=== PATIENT | male | born 1950 | race Caucasian/White ===

== ENCOUNTER 2018-01-02 16:09 | Observation (INO) | payer MEDICARE, OTHER, SELFPAY ==
[2018-01-02 16:10] VITALS: BP 142/65; PULSE 95; RESP 18; TEMP 35.7; O2SAT 96; BMI 36.6
--- NOTE | 2018-01-02 16:25 | CT_ITS ---
STUDY: CT ABDOMEN AND PELVIS WITHOUT CONTRAST REASON FOR EXAM: Male, 67 years old. RT SIDE BACK PAIN RADIATION DOSAGE (If Supplied By Facility): CTDIvol = ( 20.63 ) mGy, DLP = ( 1077.31 ) mGycm TECHNIQUE: Transaxial images were obtained from the dome of the diaphragm to the symphysis pubis without oral contrast, and without intravenous contrast. Sagittal and coronal images were reconstructed. COMPARISON: 3.26.17 FINDINGS: The visualized lung bases are unremarkable. The visualized portions of the heart are within normal limits. Normal liver. Normal gallbladder and extrahepatic biliary system. Normal spleen. Normal pancreas. Normal bilateral adrenal glands. Normal right kidney. There is a 28 mm hypodensity of the Left kidney. This is 1-10 Hounsfield units. This is stable. Normal visualized stomach. Normal small intestine. Normal colon. The appendix is visualized and appears normal. There are calcifications of the abdominal aorta and vascular structures. This is consistent for atherosclerotic disease. There is no abdominal aortic aneurysm. Normal inferior vena cava. Subcentimeter mesenteric lymph nodes. Normal urinary bladder. Normal visualized prostate gland. There is a large umbilical hernia containing fat. Fat appears to be slightly inflamed. There are degenerative changes of the osseous structures. There is scoliosis of the lumbar spine. Loss of intervertebral disc height at L5-S1. Vacuum disc phenomenon at L5-S1. CT/Abdomen/Pelvis without Cont IMPRESSION: Stable left renal cyst. There is a large umbilical hernia containing fat. Fat appears to be slightly inflamed. Other findings as above. Electronically Signed: Dinh Palacios MD at 19:38 EDT , Service support ,
[2018-01-02] MEDS: HYDROmorphone 1 MG/ML Syringe IV ×2 (16:48→20:44)
[2018-01-02] MEDS: 0.9% Normal Saline 1,000 ML 150 ML IV (16:48)
[2018-01-02] MEDS: Ondansetron 4 MG/2 ML Vial IV (16:48)
[2018-01-02 16:54] LABS: Bacteria 0 SEEN /hpf (None Seen); Mucous, Urine 0 SEEN /hpf (<or=2+); Red Blood Cells-Urine 0 SEEN /hpf (0-5); Squamous Epithelial Cells - UA 0 SEEN /hpf (0-5); White Blood Cells 0 SEEN /hpf (0-5)
[2018-01-02 17:01] LABS: Absolute Lymphocyte Count 1.46 X10^3/ul (0.83-4.51); Absolute Neutrophil Count 4.6 X10^3/uL (2.0-7.7); Basophil# 0.02 X10^3/uL; Basophil% 0.3 % (0-1); Eosinophil# 0.24 X10^3/uL; Eosinophils% 3.4 % (0-5); Hematocrit 38.7 % (40-54); Hemoglobin 13.8 g/dl (13.0-16.5); Lymphocyte # 1.46 X10^3/ul (4.0); Lymphocyte % 20.8 % (19-41); Mean Corp Hgb Conc 35.7 g/gl (32-36); Mean Corpuscular Hgb 30.7 pg (27.0-32.0); Mean Platelet Vol. 9.8 fl (6.2-12.0); Monocyte# 0.71 X10^3/uL; Monocyte% 10.1 % (0-10); Neutrophil # 4.57 X10^3/uL (2.7-7.7); Neutrophil % 65.1 % (47-70); Platelet Count 203 K/mm3 (150-450); RBC Distribution Width CV 12.6 % (11.6-14.6); RBC Distribution Width SD 38.4 fl (35.1-43.9)
[2018-01-02 17:10] LABS: Anion Gap 10 (5-15); BUN 21 mg/dL (7-18); Calcium,Total 8.9 mg/dL (8.5-10.1); Chloride 103 mmol/L (98-107); EST Glomerular Filtration Rate 53 mL/min (>60); Est Glom Filt Rate - Afr Amer 65 mL/min (>60); Estimated Creatinine Clearance 48.18 ml/min; Glucose 134 mg/dL (74-106); Sodium Level 137 mmol/L (136-145)
[2018-01-02 17:13] LABS: POSITIVE COUNT NO; POSITIVE DIFFERENTIAL NO; POSITIVE MORPHOLOGY NO
[2018-01-02 17:28] LABS: Color, Urine Yellow (Yellow); Glucose, Dipstick Normal (Normal); Ketone-Dipstick Negative (Negative); Leukocyte Esterase-Dipstick Negative /ul (Negative); Nitrite-Dipstick Negative (Negative); Occult Blood-Urine Negative /ul (Negative); Protein-Dipstick 15 mg/dl (Negative); Specific Gravity, Urine 1.015 (1.002-1.030); Urine Bilirubin Dipstick Negative (Negative); Urine Clarity Clear (Clear); Urine Urobilinogen Normal (Normal)
[2018-01-02 20:16] VITALS: BP 142/73; PULSE 82; RESP 15; O2SAT 96
--- NOTE | 2018-01-02 20:16 | ED.DCSUM_ITS ---
- ER Visit Summary Date of Service: 01/02/18 Chief Complaint: [Back pain] History of Present Illness: The patient is a 67 M [presents the emergency department with pain in his back for 2-3 days. Patient states that he spread some mulch yesterday as well which may have exacerbated things as well. Patient describes his pain as severe and worse with sitting and standing. Patient describes the pain in his center low back as well as the right lower back. 2 days ago he had numbness in his legs that has now resolved. He denies any loss of bowel or bladder function. He denies any direct trauma to his back. Patient denies any fever. He denies urinary symptoms.] Physical Examination: [HEENT-PERRLA, EOMI. Cranial nerves II through XII grossly intact. TMs clear. Mucous membranes moist. No adenopathy. Cardiovascular-regular rate and rhythm without murmur or ectopy Lungs-clear to auscultation, chest wall stable without crepitus or subcu emphysema Abdomen-normoactive bowel sounds, soft, nontender, no rebound or rigidity, no peritoneal signs. Back exam-patient has tenderness over the lumbar spine diffusely as well as the right lumbar paraspinal musculature. Patient has negative straight leg raises. Deep tendon reflexes are plus 2 out of 4 bilaterally at the patella and Achilles. Patient has normal L5 extension. Extremities-intact ?4, normal range of motion, normal pulses, atraumatic] Test Results: [CBC with differential showed a white blood cell count 7.0, heme globin 13.8, hematocrit 38.7, platelets 203. Chemistries unremarkable. BUN was 21 creatinine was 1.4. Urinalysis was normal. CT flank showed large umbilical hernia and loss of height at L5-S1 disc space.] Emergency Department Course and Treatment: [Patient was medicated with Dilaudid and Zofran and continues to complain the pain had to be remedicated with Dilaudid.] Treatment Plan: [Admit for further workup and management of his pain. Disposition: [Admit] Impression: [Intractable back pain] This note was generated with [employer] dictation software. It may contain incorrect words, spelling, and punctuation that were not noted in review of the chart prior to signing ED Disposition - Plan for ED Patient: Chief Complaint: Back Referrals: Mike Flores MD [Primary Care Provider] -
[2018-01-02 20:47] VITALS: BP 143/77; PULSE 84; RESP 16; O2SAT 95
--- NOTE | 2018-01-02 20:56 | PCM.HP.STD ---
Problem List (1) Intractable back pain Status: Acute (2) Benign prostatic hypertrophy Status: Chronic (3) Physical debility Status: Chronic (4) Pain Status: Acute (5) Obstructive sleep apnea syndrome Status: Chronic (6) Obesity Status: Chronic (7) HLD (hyperlipidemia) Status: Chronic (8) Type II diabetes mellitus Status: Chronic (9) Benign essential hypertension Status: Chronic History of Present Illness Date of Admission: 01/02/18 Chief Complaint: back pain The patient is a 67 year old male patient with a history of back pain status post discectomy at L5 level about 10 years ago presents to the ER with two days of worsening back pain. At onset two days ago he felt both legs going numb. He doesn't recall doing anything that might have caused this. The pain is in the lower back and on the right side of the lumbar spine. He describes it as a 10/10. The pain was relieved somewhat by dilaudid in the ER but completely returned in two hours. He does get some relief by positioning more weight sitting on his right side. CT scan is unremarkable. He denies nausea, vomiting, fevers or chills. He does have sleep apnea and requests CPAP to continue here. He will be admitted for pain control and an MRI in the AM. Past Medical History Past Medical History (Chronic Problems): Chronic Problems Benign prostatic hypertrophy (Chronic) Physical debility (Chronic) Obstructive sleep apnea syndrome (Chronic) Obesity (Chronic) HLD (hyperlipidemia) (Chronic) Type II diabetes mellitus (Chronic) Benign essential hypertension (Chronic) Allergies No Known Allergies Allergy (Verified 01/02/18 16:10) Home Medications: Ambulatory Orders Medication Instructions Recorded Aspirin 81 mg PO DAILY 11/21/16 Atorvastatin Calcium [Lipitor] 20 mg PO BREAKFAST 11/21/16 Gabapentin [Neurontin] 300 mg PO TIDCM 11/21/16 Lisinopril [Zestril] 20 mg PO DAILY 11/21/16 Meloxicam [Mobic] 15 mg PO DAILY 11/21/16 Metformin HCl [Glucophage] 1,000 mg PO TIDCM 11/21/16 Metoprolol Succinate [Toprol Xl] 50 mg PO DAILY 11/21/16 Tamsulosin HCl [Flomax] 0.4 mg PO QHS 11/21/16 Celecoxib [Celecoxib] 200 mg PO BID 01/02/18 Dulaglutide [Trulicity] 1.5 mg SQ QWEEK 01/02/18 Insulin Lispro [Humalog] 12 unit SC TIDCM 01/02/18 Insulin NPH Human Isophane 20 unit SQ QHS 01/02/18 [Humulin N] Surgical History: noncontributory, - - lumbar disk surgery Smoking Status: Never smoker - *Family History Maternal History Items: Heart Disease - of [place] Paternal History Items: - - Father of [place] at the age of 62 yearas Review of Systems Constitutional: Denies: Chills, Fever, Weight Change HEENT: Denies: Head Aches, Sinus Congestion, Sinus Drainage Cardiovascular: Denies: Chest Pain, Palpitations Respiratory: Denies: Cough, Shortness of breath at rest, Sputum production Gastrointestinal: Denies: Abdominal Pain, Nausea, Vomiting Genitourinary: Denies: Dysuria Musculoskeletal: Reports: Back Pain Skin: Denies: Rash, Wounds Neurological: Denies: Numbness, Tingling, Focal weakness Psychiatric: Denies: Anxiety, Depression, Homicidal Ideations, Suicidal Ideations Hematologic/ Lymphatic: Denies: Easy Bruising, Easy Bleeding VTE Information - Inpt Only VTE Present on Admission: No VTE Mechan Device Prophylaxis: None VTE Pharm Prophylaxis ordered?: Yes Patient Problems: Active and Suspected Problems Intractable back pain (Acute) - Physical Exam General: Alert, Oriented x3, Cooperative HEENT: Atraumatic, Normocephalic Neck: Supple Lungs: Clear to auscultation, Normal air movement, No rhonchi, No wheeze, No rales Cardiovascular: Regular rate, Regular Rhythm, Normal S1, Normal S2, No murmurs Abdomen: Bowel Sounds Present, Soft, Non Tender, Obese Extremities: No edema, Capillary Refill Less than 3 Seconds Skin: No rashes, No breakdown Musculoskeletal: Tenderness - right lower back. Pain worse with SLR on right side neg on left Neurological: Motor Exam 5/5 strength throughout Psych/Mental Status: Normal Affect, Appropriate Vital Signs Temp Pulse Resp BP Pulse Ox 96.3 F L 84 16 143/77 H 95 01/02/18 16:10 01/02/18 20:47 01/02/18 20:47 01/02/18 20:47 01/02/18 20:47 Oxygen Delivery Method Room Air Weight: 240 lb 8.389 oz Body Mass Index (BMI) 36.6 Finger Stick Blood Glucose 89 Laboratory Tests Past 24 Hrs 01/02/18 01/02/18 01/02/18 16:40 16:40 16:40 WBC 7.0 RBC 4.50 L Hgb 13.8 Hct 38.7 L MCV 86.0 MCH 30.7 MCHC 35.7 RDW 12.6 RDW Differential 38.4 Plt Count 203 MPV 9.8 Immature Gran % (Auto) 0.300 Neut % (Auto) 65.1 Lymph % (Auto) 20.8 [place] % (Auto) 10.1 H Eos % (Auto) 3.4 Baso % (Auto) 0.3 Absolute Neuts (auto) 4.6 Absolute Lymphs (auto) 1.46 Total Counted Not Reportable Sodium 137 Potassium 5.0 Chloride 103 Carbon Dioxide 24.0 Anion Gap 10 BUN 21 H Creatinine 1.40 H Estim Creat Clear Calc 48.18 Est GFR (MDRD) Af Amer 65 Est GFR (MDRD) Non-Af 53 L BUN/Creatinine Ratio 15.0 Glucose 134 H Calcium 8.9 Urine Color Yellow Urine Clarity Clear Urine pH 6.0 Ur Specific [place] 1.015 Urine Protein 15 H Urine Glucose (UA) Normal Urine Ketones Negative Urine Occult Blood Negative Urine Nitrite Negative Urine Bilirubin Negative Urine Urobilinogen Normal Ur Leukocyte Esterase Negative Urine RBC 0 SEEN Urine WBC 0 SEEN Ur Squamous Epith Cells 0 SEEN Urine Bacteria 0 SEEN Urine Mucus 0 SEEN Assessment/Plan Active and Suspected Problems Intractable back pain (Acute) Chronic Problems Benign prostatic hypertrophy (Chronic) Obstructive sleep apnea syndrome (Chronic) Obesity (Chronic) HLD (hyperlipidemia) (Chronic) Type II diabetes mellitus (Chronic) Benign essential hypertension (Chronic) Plan - admit to general medical floor - dilaudid 1mg IV q 2 hrs prn - MRI lumbar spine in am - continue routine home medications - LMWH for DVT prophylaxis Code Visit Inpatient E&M: 80863 Init Hosp L3
--- NOTE | 2018-01-02 21:05 | HP.PCM_ITS ---
Problem List (1) Intractable back pain Status: Acute (2) Benign prostatic hypertrophy Status: Chronic (3) Physical debility Status: Chronic (4) Pain Status: Acute (5) Obstructive sleep apnea syndrome Status: Chronic (6) Obesity Status: Chronic (7) HLD (hyperlipidemia) Status: Chronic (8) Type II diabetes mellitus Status: Chronic (9) Benign essential hypertension Status: Chronic History of Present Illness Date of Admission: 01/02/18 Chief Complaint: back pain The patient is a 67 year old male patient with a history of back pain status post discectomy at L5 level about 10 years ago presents to the ER with two days of worsening back pain. At onset two days ago he felt both legs going numb. He doesn't recall doing anything that might have caused this. The pain is in the lower back and on the right side of the lumbar spine. He describes it as a 10/ 10. The pain was relieved somewhat by dilaudid in the ER but completely returned in two hours. He does get some relief by positioning more weight sitting on his right side. CT scan is unremarkable. He denies nausea, vomiting, fevers or chills. He does have sleep apnea and requests CPAP to continue here. He will be admitted for pain control and an MRI in the AM. Past Medical History Past Medical History (Chronic Problems): Chronic Problems Benign prostatic hypertrophy (Chronic) Physical debility (Chronic) Obstructive sleep apnea syndrome (Chronic) Obesity (Chronic) HLD (hyperlipidemia) (Chronic) Type II diabetes mellitus (Chronic) Benign essential hypertension (Chronic) Allergies No Known Allergies Allergy (Verified 01/02/18 16:10) Home Medications: Ambulatory Orders Medication Instructions Recorded Aspirin 81 mg PO DAILY 11/21/16 Atorvastatin Calcium [Lipitor] 20 mg PO BREAKFAST 11/21/16 Gabapentin [Neurontin] 300 mg PO TIDCM 11/21/16 Lisinopril [Zestril] 20 mg PO DAILY 11/21/16 Meloxicam [Mobic] 15 mg PO DAILY 11/21/16 Metformin HCl [Glucophage] 1,000 mg PO TIDCM 11/21/16 Metoprolol Succinate [Toprol Xl] 50 mg PO DAILY 11/21/16 Tamsulosin HCl [Flomax] 0.4 mg PO QHS 11/21/16 Celecoxib [Celecoxib] 200 mg PO BID 01/02/18 Dulaglutide [Trulicity] 1.5 mg SQ QWEEK 01/02/18 Insulin Lispro [Humalog] 12 unit SC TIDCM 01/02/18 Insulin NPH Human Isophane 20 unit SQ QHS 01/02/18 [Humulin N] Surgical History: noncontributory, - - lumbar disk surgery Smoking Status: Never smoker - *Family History Maternal History Items: Heart Disease - of [place] Paternal History Items: - - Father of [place] at the age of 62 yearas Review of Systems Constitutional: Denies: Chills, Fever, Weight Change HEENT: Denies: Head Aches, Sinus Congestion, Sinus Drainage Cardiovascular: Denies: Chest Pain, Palpitations Respiratory: Denies: Cough, Shortness of breath at rest, Sputum production Gastrointestinal: Denies: Abdominal Pain, Nausea, Vomiting Genitourinary: Denies: Dysuria Musculoskeletal: Reports: Back Pain Skin: Denies: Rash, Wounds Neurological: Denies: Numbness, Tingling, Focal weakness Psychiatric: Denies: Anxiety, Depression, Homicidal Ideations, Suicidal Ideations Hematologic/ Lymphatic: Denies: Easy Bruising, Easy Bleeding VTE Information - Inpt Only VTE Present on Admission: No VTE Mechan Device Prophylaxis: None VTE Pharm Prophylaxis ordered?: Yes Patient Problems: Active and Suspected Problems Intractable back pain (Acute) - Physical Exam General: Alert, Oriented x3, Cooperative HEENT: Atraumatic, Normocephalic Neck: Supple Lungs: Clear to auscultation, Normal air movement, No rhonchi, No wheeze, No rales Cardiovascular: Regular rate, Regular Rhythm, Normal S1, Normal S2, No murmurs Abdomen: Bowel Sounds Present, Soft, Non Tender, Obese Extremities: No edema, Capillary Refill Less than 3 Seconds Skin: No rashes, No breakdown Musculoskeletal: Tenderness - right lower back. Pain worse with SLR on right side neg on left Neurological: Motor Exam 5/5 strength throughout Psych/Mental Status: Normal Affect, Appropriate Vital Signs Temp Pulse Resp BP Pulse Ox 96.3 F L 84 16 143/77 H 95 01/02/18 16:10 01/02/18 20:47 01/02/18 20:47 01/02/18 20:47 01/02/18 20:47 Oxygen Delivery Method Room Air Weight: 240 lb 8.389 oz Body Mass Index (BMI) 36.6 Finger Stick Blood Glucose 89 Laboratory Tests Past 24 Hrs 01/02/18 01/02/18 01/02/18 16:40 16:40 16:40 WBC 7.0 RBC 4.50 L Hgb 13.8 Hct 38.7 L MCV 86.0 MCH 30.7 MCHC 35.7 RDW 12.6 RDW Differential 38.4 Plt Count 203 MPV 9.8 Immature Gran % (Auto) 0.300 Neut % (Auto) 65.1 Lymph % (Auto) 20.8 [place] % (Auto) 10.1 H Eos % (Auto) 3.4 Baso % (Auto) 0.3 Absolute Neuts (auto) 4.6 Absolute Lymphs (auto) 1.46 Total Counted Not Reportable Sodium 137 Potassium 5.0 Chloride 103 Carbon Dioxide 24.0 Anion Gap 10 BUN 21 H Creatinine 1.40 H Estim Creat Clear Calc 48.18 Est GFR (MDRD) Af Amer 65 Est GFR (MDRD) Non-Af 53 L BUN/Creatinine Ratio 15.0 Glucose 134 H Calcium 8.9 Urine Color Yellow Urine Clarity Clear Urine pH 6.0 Ur Specific [place] 1.015 Urine Protein 15 H Urine Glucose (UA) Normal Urine Ketones Negative Urine Occult Blood Negative Urine Nitrite Negative Urine Bilirubin Negative Urine Urobilinogen Normal Ur Leukocyte Esterase Negative Urine RBC 0 SEEN Urine WBC 0 SEEN Ur Squamous Epith Cells 0 SEEN Urine Bacteria 0 SEEN Urine Mucus 0 SEEN Assessment/Plan Active and Suspected Problems Intractable back pain (Acute) Chronic Problems Benign prostatic hypertrophy (Chronic) Obstructive sleep apnea syndrome (Chronic) Obesity (Chronic) HLD (hyperlipidemia) (Chronic) Type II diabetes mellitus (Chronic) Benign essential hypertension (Chronic) Plan - admit to general medical floor - dilaudid 1mg IV q 2 hrs prn - MRI lumbar spine in am - continue routine home medications - LMWH for DVT prophylaxis Code Visit Inpatient E&M: 82532 Init Hosp L3
[2018-01-02 21:37] VITALS: BMI 36.4
[2018-01-02 21:55] VITALS: BMI 36.4
[2018-01-02 23:10] VITALS: BP 122/59; PULSE 85; RESP 18; TEMP 36.4; O2SAT 96
[2018-01-02] MEDS: Tamsulosin HCl 0.4 MG Capsule PO (23:12)
[2018-01-02] MEDS: Celecoxib 200 MG Capsule PO (23:12)
[2018-01-02] MEDS: 0.9% NaCl Peripheral Flush Adult/Peds IV (23:12)
[2018-01-02 23:20] LABS: Bedside Glucose 143 mg/dL (70-110)
[2018-01-03 00:23] VITALS: PULSE 90; RESP 16; O2SAT 95
[2018-01-03 03:15] VITALS: O2SAT 94
[2018-01-03 05:10] VITALS: BP 98/58; PULSE 84; RESP 16; TEMP 36.4; O2SAT 93
[2018-01-03 06:21] LABS: Bedside Glucose 133 mg/dL (70-110)
[2018-01-03 07:21] VITALS: BP 116/61; PULSE 87; RESP 16; TEMP 36.6; O2SAT 97
[2018-01-03] MEDS: 0.9% NaCl Peripheral Flush Adult/Peds IV ×2 (07:27→11:18)
[2018-01-03] MEDS: HYDROmorphone 1 MG/ML Syringe IV ×2 (07:27→11:17)
--- NOTE | 2018-01-03 07:27 | MRI_ITS ---
STUDY: MRI LUMBAR SPINE WITHOUT CONTRAST REASON FOR EXAM: Male, 67 years old. Intractable back pain, bilat leg numbness x 3-4 days. Previous lumbar surgery atL4-L5 may years ago TECHNIQUE: Standardized fat and water weighted pulse sequences were obtained in the sagittal and axial planes. COMPARISON: 10/10/2009 FINDINGS: Normal lumbar lordosis. There is a levoscoliosis of the lumbar spine. Normal conus medullaris that terminates at the T12-L1 level. There is grade 1 anterolisthesis at L4-5. There is multilevel loss of disc height and disc desiccation. There is minimal chronic anterior wedging of L1, T12, T11. There are Modic type I changes at L5-S1 and L3-4. 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 There is stable mild prominence of epidural fat. There is multilevel facet arthropathy and ligamentum flavum hypertrophy. T12/L1: Sagittal images only were obtained. No disc bulge or herniation or central canal or neural foraminal stenosis is demonstrated. L1/2: There is a diffuse bulge and a small left paracentral protrusion. There is impression on the left ventral thecal sac and mild bilateral neuroforaminal stenosis. L2/3: There is a mild diffuse bulge. There is no central canal stenosis. There is mild to moderate right worse than left neuroforaminal stenosis. L3/4: There is a diffuse bulge larger on the right. There is impression on the ventral thecal sac and severe right and moderate left neuroforaminal stenosis. L4/5: There has been a right hemilaminectomy. There is a diffuse bulge. There is impression on the ventral thecal sac and severe right and moderate left neuroforaminal stenosis. L5/S1: There is a diffuse bulge. There is no central canal stenosis. There is severe right worse than left neuroforaminal stenosis. Normal visualized sacral ala. There is a left renal partially imaged cystic structure. MRI/Spine Lumbar (Routine) IMPRESSION: There has been diffuse progression of degenerative change. There is worsened bilateral neuroforaminal stenosis at L2-3. There is worsened bilateral neuroforaminal stenosis at L3-4, especially on the right. There is worsened right neuroforaminal stenosis at L4-5. There is mildly worsened bilateral neuroforaminal stenosis at L5-S1. There is a slightly worsened levoscoliosis. There is no other significant interval change. Electronically Signed: Tami Almazan MD at 13:50 EDT , Service support ,
[2018-01-03 07:30] VITALS: PULSE 87
[2018-01-03] MEDS: Metoprolol(XL)Succ 50 MG Tablet PO (07:30)
[2018-01-03] MEDS: metFORMIN HCl 1,000 MG Tablet 1000 MG PO (07:30)
[2018-01-03] MEDS: Celecoxib 200 MG Capsule PO (07:30)
[2018-01-03] MEDS: Aspirin 81 MG TAB.CHEW PO (07:30)
[2018-01-03] MEDS: Gabapentin 300 MG Capsule PO ×2 (07:30→11:17)
[2018-01-03] MEDS: Meloxicam 15 MG Tablet PO (07:31)
[2018-01-03] MEDS: Enoxaparin 40 MG/0.4 ML Syringe SC (07:31)
[2018-01-03] MEDS: Lisinopril 20 MG Tablet PO (07:31)
[2018-01-03 11:12] VITALS: BP 117/68; PULSE 83; RESP 16; TEMP 36.3; O2SAT 97
[2018-01-03 11:26] LABS: Bedside Glucose 232 mg/dL (70-110)
--- NOTE | 2018-01-03 12:40 | PCM.DC ---
- Discharge Diagnoses Current Active Problems: Current Active and Chronic Problems Intractable back pain (Acute) You will use the following diet at home:: Regular Discharge Activity: May not drive while taking narcotic pain medications. Weight Bearing Status: Weight bearing as tolerated Allergies/Adverse Reactions: Allergies No Known Allergies Allergy (Verified 01/02/18 16:10) Medications to take at Discharge Aspirin 81 mg PO DAILY 11/21/16 Atorvastatin Calcium [Lipitor] 20 mg PO BREAKFAST 11/21/16 Gabapentin [Neurontin] 300 mg PO TIDCM 11/21/16 Lisinopril [Zestril] 20 mg PO DAILY 11/21/16 Metformin HCl [Glucophage] 1,000 mg PO BIDCM 11/21/16 Metoprolol Succinate [Toprol Xl] 50 mg PO DAILY 11/21/16 Tamsulosin HCl [Flomax] 0.4 mg PO QHS 11/21/16 Dulaglutide [Trulicity] 1.5 mg SQ QWEEK 01/02/18 Insulin Glargine [Lantus SoloStar Pen] 25 units SC QHS 01/02/18 Celecoxib 200 mg PO BID PRN #0 01/03/18 Primary Care Physician: Mike Flores MD [Primary Care Provider] - Please follow up with your Primary Care Physician in: in 2 weeks Please Follow Up With: Gunjan Chacon MD When: in 2-3 weeks
--- NOTE | 2018-01-03 12:40 | PCM.DC.SUM ---
Discharge Date and Diagnosis - Problem List Patient Problems: Active and Suspected Problems Intractable back pain (Acute) Date of Admission: 01/02/18 - Primary Discharge Diagnosis Active and Suspected Problems Intractable back pain (Acute) - Secondary Discharge Diagnosis Chronic Problems Benign prostatic hypertrophy (Chronic) Physical debility (Chronic) Obstructive sleep apnea syndrome (Chronic) Obesity (Chronic) HLD (hyperlipidemia) (Chronic) Type II diabetes mellitus (Chronic) Benign essential hypertension (Chronic) Hospital Course and Treatment Imaging Results: 01/03/18 07:27 Spine Lumbar (Routine) [MRI] Stat Operations: - - 03/23 17 - 1. Surgical preparation dorsum left hand with extension to proximal left ring finger and MP joint and extension to distal palmar crease with incision and drainage and excisional debridement abscess. 2. Incision extensor tendon sheath for tenosynovitis. Summary of Care Provided: The patient is a 67 year old M [] Discharge Diet: 1800 Calorie Control Diet Discharge Activity: May not drive while taking narcotic pain medications. Home Medications: Medications to take at Discharge Aspirin 81 mg PO DAILY 11/21/16 Atorvastatin Calcium [Lipitor] 20 mg PO BREAKFAST 11/21/16 Gabapentin [Neurontin] 300 mg PO TIDCM 11/21/16 Lisinopril [Zestril] 20 mg PO DAILY 11/21/16 Metformin HCl [Glucophage] 1,000 mg PO BIDCM 11/21/16 Metoprolol Succinate [Toprol Xl] 50 mg PO DAILY 11/21/16 Tamsulosin HCl [Flomax] 0.4 mg PO QHS 11/21/16 Dulaglutide [Trulicity] 1.5 mg SQ QWEEK 01/02/18 Insulin Glargine [Lantus SoloStar Pen] 25 units SC QHS 01/02/18 Celecoxib 200 mg PO BID PRN #0 01/03/18 Primary Care Physician: Mike Flores MD [Primary Care Provider] - Please follow up with your Primary Care Physician in: in 2 weeks Additional Instructions: Outpatient physical therapy for lumbar spine pain with foraminal stenosis Disposition: Home Medical Necessity - Tobacco Use Smoking Status: Former smoker Meaningful Use Info Meaningful Use Diagnoses (Choose all that apply): None applicable
--- NOTE | 2018-01-03 14:42 | PCM.DC.SUM ---
Discharge Date and Diagnosis Date of Admission: 01/02/18 Date of Discharge: 01/03/18 - Primary Discharge Diagnosis Active and Suspected Problems Intractable back pain (Acute) due to lumbar diffuse degenerative changes involving bilateral neural foraminal stenosis at different levels. - Secondary Discharge Diagnosis Chronic Problems Benign prostatic hypertrophy (Chronic) Physical debility (Chronic) Obstructive sleep apnea syndrome (Chronic) Obesity (Chronic) HLD (hyperlipidemia) (Chronic) Type II diabetes mellitus (Chronic) Benign essential hypertension (Chronic) Hospital Course and Treatment Imaging Results: 01/03/18 07:27 Spine Lumbar (Routine) [MRI] Stat Operations: - - 03/23 17 - 1. Surgical preparation dorsum left hand with extension to proximal left ring finger and MP joint and extension to distal palmar crease with incision and drainage and excisional debridement abscess. 2. Incision extensor tendon sheath for tenosynovitis. Summary of Care Provided: The patient is a 67 year old male patient with a history of back pain status post discectomy at L5 level about 10 years ago presents to the ER with two days of worsening back pain. At onset two days ago he felt both legs going numb. The pain is in the lower back and on the right side of the lumbar spine. He describes it as a 10/10. The pain was relieved somewhat by dilaudid in the ER but completely returned in two hours. He does get some relief by positioning more weight sitting on his right side. He denies radiation to lower extremities but pain is more localized on the right side of lumbar region. No urinary incontinence or signs of neurological compromise CT scan is unremarkable. He denies nausea, vomiting, fevers or chills. He does have sleep apnea and requests CPAP to continue here. The patient was further admitted. MRI was done and reported as mentioned below. It is mainly shows diffuse progression of degenerative changes with worsening of bilateral neuroforaminal stenosis at L2-L3, L3-L4 and right L4-L5. Patient pain got better. He follows primary care doctor. He used to follow-up Dr. Chacon and [facility] but does not want to see them. His pain got better. He is on celecoxib, gabapentin and Percocet at home. Clinical Impression(s) from Imaging Studies Abdomen/Pelvis CT 01/02/18 16:25 IMPRESSION: Stable left renal cyst. There is a large umbilical hernia containing fat. Fat appears to be slightly inflamed. Other findings as above. Electronically Signed: Dinh Palacios MD at 19:38 EDT , Service support , Lumbar Spine MRI 01/03/18 07:27 IMPRESSION: There has been diffuse progression of degenerative change. There is worsened bilateral neuroforaminal stenosis at L2-3. There is worsened bilateral neuroforaminal stenosis at L3-4, especially on the right. There is worsened right neuroforaminal stenosis at L4-5. There is mildly worsened bilateral neuroforaminal stenosis at L5-S1. There is a slightly worsened levoscoliosis. There is no other significant interval change. Electronically Signed: Tami Almazan MD at 13:50 EDT , Service support , Discharge Diet: 1800 Calorie Control Diet Discharge Activity: May not drive while taking narcotic pain medications. Weight Bearing Status: Weight bearing as tolerated Home Medications: Medications to take at Discharge Aspirin 81 mg PO DAILY 11/21/16 Atorvastatin Calcium [Lipitor] 20 mg PO BREAKFAST 11/21/16 Gabapentin [Neurontin] 300 mg PO TIDCM 11/21/16 Lisinopril [Zestril] 20 mg PO DAILY 11/21/16 Metformin HCl [Glucophage] 1,000 mg PO BIDCM 11/21/16 Metoprolol Succinate [Toprol Xl] 50 mg PO DAILY 11/21/16 Tamsulosin HCl [Flomax] 0.4 mg PO QHS 11/21/16 Dulaglutide [Trulicity] 1.5 mg SQ QWEEK 01/02/18 Insulin Glargine [Lantus SoloStar Pen] 25 units SC QHS 01/02/18 Celecoxib 200 mg PO BID PRN #0 01/03/18 Primary Care Physician: Mike Flores MD [Primary Care Provider] - Please follow up with your Primary Care Physician in: in 2 weeks Additional Instructions: Outpatient physical therapy for lumbar spine pain with foraminal stenosis Disposition: Home Medical Necessity - Tobacco Use Smoking Status: Former smoker Meaningful Use Info Meaningful Use Diagnoses (Choose all that apply): None applicable Code Visit OBSV E&M: 36982 Observation care discharge
--- NOTE | 2018-01-03 14:55 | CASEMGMT ---
Physician concurs with the utilization review decision to change patient status to observation level of care. [employer] form completed with the patient. Patient voiced understanding and signed original. Copy of [employer] form provided to patient along with Medicare Inpatient vs Observation information packet. Signed [employer] form filed in chart.
== END 2018-01-03 15:15 | disposition home or self-care (01) ==
LOC: ED 17:18 → MS3 01-03 07:31
PROVIDERS: Admitting Provider Family Medicine; Emergency Provider Emergency Medicine; Family Provider Family Medicine; PCP Family Medicine; Visit Provider Internal Medicine
DX: M51.36 Other intervertebral disc degeneration, lumbar region (principal); N40.0 Benign prostatic hyperplasia without lower urinary tract symptoms; G47.33 Obstructive sleep apnea (adult) (pediatric); E78.5 Hyperlipidemia, unspecified; I10 Essential (primary) hypertension; E11.9 Type 2 diabetes mellitus without complications; E66.9 Obesity, unspecified; Z68.36 Body mass index [BMI] 36.0-36.9, adult; Z71.3 Dietary counseling and surveillance; M48.061 Spinal stenosis, lumbar region without neurogenic claudication; Z87.891 Personal history of nicotine dependence; Z79.899 Other long term (current) drug therapy; Z79.82 Long term (current) use of aspirin; Z79.4 Long term (current) use of insulin
CPT/HCPCS: 72148; 74176; 80048; 81001; 82962; 85025; 94660; 96361; 96372; 96374; 96375; 96376; 99218; 99282; J7030; A4216; G0378; J2405

== ENCOUNTER → 2019-02-28 08:14 | Outpatient (CLI) | payer MEDICARE, OTHER, SELFPAY ==
--- NOTE | 2019-02-28 08:16 | RAD_ITS ---
STUDY: X-RAY - RIGHT ELBOW REASON FOR EXAM: Male, 68 years old. Pain. Swelling. TECHNIQUE: 3 view(s) of the elbow. COMPARISON: None. FINDINGS: No acute fracture or dislocation. Prominent multicompartmental degenerative changes. 2.4 cm calcification beyond the border of the medial humeral epicondyle most consistent with previous ununited fracture. The soft tissue structures are unremarkable. RAD/Elbow min 3 Views IMPRESSION: No definite acute abnormality. Relatively severe degenerative changes. Electronically Signed: Ramirez Day MD at 17:00 EDT , Service support ,
== END ==
PROVIDERS: Family Provider Family Medicine; PCP Family Medicine; Referring Provider Orthopaedic Surgery; Visit Provider Orthopaedic Surgery
DX: M25.521 Pain in right elbow (principal)
CPT/HCPCS: 73080

== ENCOUNTER → 2020-02-13 10:41 | Outpatient (CLI) | payer MEDICARE, OTHER, SELFPAY ==
[2019-04-02 09:29] VITALS: BMI 36.4
--- NOTE | 2020-02-13 10:48 | ART_ITS ---
Reason For Study: Leg pain Procedure A bilateral lower extremity continuous wave Doppler with analog waveform analysis,segmental pressures,and ankle brachial indexes without exercise. Left Segmental Pressures Left brachial= 146mmHg. Left posterior tibial artery = 162mmHg. Left dorsalis pedis artery = 157mmHg. Left digit = 135 mmHg. The left dorsalis pedis waveforms are triphasic. The left posterior tibial artery waveforms are triphasic. Right Segmental Pressures Right brachial= 152mmHg. Right posterior tibial artery = 173mmHg. Right dorsalis pedis artery = 163mmHg. Right digit = 140 mmHg. The right dorsalis pedis waveforms are triphasic. The right posterior tibial artery waveforms are triphasic. Indices The right ankle brachial index by the dorsalis pedis is 1.07. The right ankle brachial index by the posterior tibial artery is 1.14. The right digital-brachial index is 0.92. The left ankle brachial index by the dorsalis pedis is 1.03. The left ankle brachial index by the posterior tibial artery is 1.07. The left digital-brachial index is 0.89. Interpretation Summary Triphasic Doppler waveforms are noted at ankle level bilaterally. Pulse-volume recordings appear satisfactory at all levels bilaterally, including low-thigh, calf, ankle, and digital levels. Resting ankle-brachial indices are normal bilaterally. Digital-brachial indices are normal bilaterally. There is no evidence of significant arterial occlusive disease in the lower extremities bilaterally. Ordering Physician: Mike Schreiber Referring Physician: Mike Flores Performed By: Ariana Gayle RVT and Student
== END ==
PROVIDERS: PCP Family Medicine; Referring Provider Orthopaedic Surgery Orthopaedic Surgery of the Spine; Visit Provider Orthopaedic Surgery Orthopaedic Surgery of the Spine
DX: I73.9 Peripheral vascular disease, unspecified (principal); M53.3 Sacrococcygeal disorders, not elsewhere classified; M51.36 Other intervertebral disc degeneration, lumbar region; M79.604 Pain in right leg; M79.605 Pain in left leg
CPT/HCPCS: 93923

== ENCOUNTER → 2020-02-15 16:52 | Outpatient (CLI) | payer MEDICARE, OTHER, SELFPAY ==
[2019-04-02 09:29] VITALS: BMI 36.4
[2020-02-15 17:20] LABS: CREATININE FINGERSTICK 0.8 mg/dL (0.70-1.30); EGFR FINGERSTICK > 60.0000 mL/min (>60)
--- NOTE | 2020-02-15 17:30 | MRI_ITS ---
STUDY: MRI LUMBAR SPINE WITH AND WITHOUT CONTRAST REASON FOR EXAM: Male, 69 years old. ddd, LOW BACK PAIN X 3 YRS H/O PRIOR LUMBAR SX TECHNIQUE: Standardized fat and water weighted pulse sequences were obtained in the sagittal and axial planes. IV DOTAREM 20CC was administered for the contrast portion of the examination. COMPARISON: January 03, 2018 FINDINGS: There are low signal changes seen within the inferior endplate of L3 and superior endplate of L4 which becomes high signal intensity on T2 and STIR imaging sequences in association with linear low signal suggesting intramedullary edema due to nondisplaced fractures. Mild enhancement is also demonstrated following contrast administration T12-L1: Anterior endplate spurring. Normal disc height, hydration and morphology. Normal bilateral facet joints. Normal central canal and bilateral lateral recesses. Normal bilateral intervertebral neural foramina. Normal lumbar lordosis. There is severe levo scoliosis. Normal conus medullaris that terminates at T12-L1 L1-2: Anterior endplate spurring.. Normal disc height, desiccation and tiny left posterolateral/foraminal disc protrusion.. Normal bilateral facet joints. Normal central canal and bilateral lateral recesses. Mild left neural foraminal encroachment L2-3: Normal endplates. Normal disc height, desiccation and minor annular bulge.. Normal bilateral facet joints. Normal central canal and bilateral lateral recesses. Minor bilateral neural foraminal encroachment. L3-4: Narrowed disc space with endplate spurring. Desiccation of the disc and mild annular bulge in association with large right posterolateral/foraminal disc protrusion. Mild facet arthropathy and thickening of the ligamenta flava greater on the right. Mild narrowing of the central canal. Mild left lateral recess and moderate neuroforaminal stenosis. Severe right lateral recess and neuroforaminal stenosis L4-5: There is post right laminectomy. Normal endplates. Normal disc height, desiccation and moderate annular bulge in association with prominent right foraminal disc protrusion. Bilateral facet arthropathy.. Mild narrowing of the central canal and left lateral recess with moderate left neuroforaminal encroachment. Mild to moderate right lateral recess stenosis and severe narrowing of the right neuroforamen L5-S1: Normal endplates. Normal disc height, desiccation and mild annular bulge with left foraminal disc protrusion.. Bilateral facet arthropathy. Normal central canal and bilateral lateral recesses. Severe bilateral neuroforaminal stenosis greater on the left Normal visualized sacral ala. There is lipomatous infiltration of the filum terminalis Normal visualized paraspinous soft tissue structures. MRI/Spine Lumbar W/WO Contrast IMPRESSION: Multilevel disc degeneration and spinal stenosis secondary to disc disease and bony hypertrophy most severe at L3-4 and L4-5 on the right and L5-S1 on the left.. Postsurgical changes at L4-5 status post right laminectomy Findings which may be consistent with recent hairline fractures of the inferior endplate of L3 and superior endplate of L4. Other findings as above Electronically Signed: Mike Conroy MD at 19:02 EDT , Service support ,
== END ==
PROVIDERS: PCP Family Medicine; Referring Provider Orthopaedic Surgery Orthopaedic Surgery of the Spine; Visit Provider Orthopaedic Surgery Orthopaedic Surgery of the Spine
DX: M51.36 Other intervertebral disc degeneration, lumbar region (principal); M19.90 Unspecified osteoarthritis, unspecified site
CPT/HCPCS: 72158; A9575

== ENCOUNTER → 2020-03-11 09:51 | Outpatient (CLI) | payer MEDICARE, OTHER, SELFPAY ==
--- NOTE | 2020-03-11 09:51 | ECHOCS_ITS ---
Reason For Study: MURMUR Procedure This was a 2D Doppler, Color Flow transthoracic echocardiogram. The study was technically difficult. Contrast injection was performed. Exam performed in department. Left Ventricle Normal LV size. Moderate concentric left ventricular hypertrophy. Left ventricular systolic function is normal. The estimated ejection fraction is 60 %. Diastolic function is indeterminate. No regional wall motion abnormalities noted. Right Ventricle Normal RV size. Normal systolic function. Atria The left atrium is mildly enlarged. Normal right atrium. No doppler evidence for ASD. Mitral Valve There is no mitral annular calcification. Normal mitral valve. Trivial mitral valve insufficiency. Tricuspid Valve Normal tricuspid valve. Trivial tricuspid valve insufficiency. Unable to estimate RV systolic pressure/pulmonary artery pressure due to technically difficult study. Aortic Valve Trisinus/trileaflet aortic valve. Mild diffuse aortic valve thickening. Severe diffuse aortic valve calcification. Severe aortic stenosis. Pulmonic Valve The pulmonic valve is not well visualized. Trivial pulmonic valve insufficiency. Great Vessels Normal sized aortic root. Pericardium/Pleural No pericardial effusion. Medication 22 gauge I.V. with prn adaptor inserted into right arm. Diluted definity 2ml given slow IV push to enhance endocardial definition. MMode/2D Measurements & Calculations LVIDd: 4.4 cm IVSd: 1.5 cm LVOT diam: 2.0 cm LVIDs: 2.8 cm LVPWd: 1.4 cm RVDd: 3.5 cm FS: 36.8 % LVOT area: 3.3 cm2 Ao root diam: 3.3 cm LAV(MOD-bp): 66.7 ml LVAd ap4: 33.4 cm2 LAV(MOD-bp) Indexed: 31.1 ml/m2 EDV(MOD-sp4): 114.6 ml LAV(MOD-sp2): 68.8 ml EDV(sp4-el): 121.9 ml LAV(MOD-sp4): 61.7 ml LVAs ap4: 18.4 cm2 ESV(MOD-sp4): 45.6 ml ESV(sp4-el): 48.8 ml EF(MOD-sp4): 60.2 % EF(sp4-el): 60.0 % SV(MOD-sp4): 69.1 ml SV(sp4-el): 73.1 ml LA A4 area: 20.7 cm2 LA dimension(2D): 3.8 cm RA A4 area: 14.3 cm2 Time Measurements MV dec time: 0.32 sec Doppler Measurements & Calculations MV E max isidro: 72.1 cm/sec Lat Peak E' Isidro: 7.2 cm/sec Med Peak E' Isidro: 5.6 cm/sec MV A max isidro: 119.4 cm/sec E/E' lat: 10.0 E/E' med: 12.9 MV E/A: 0.60 Ao V2 max: 400.9 cm/sec LV V1 max: 89.5 cm/sec SV(LVOT): 80.5 ml Ao max P.3 mmHg LV V1 max P.2 mmHg Ao V2 mean: 321.2 cm/sec LV V1 mean P.9 mmHg Ao mean P.9 mmHg LV V1 mean: 66.1 cm/sec Ao V2 VTI: 94.8 cm LV V1 VTI: 24.6 cm MARGARET(I,D): 0.85 cm2 MARGARET(V,D): 0.73 cm2 PA V2 max: 110.8 cm/sec Interpretation Summary The study was technically difficult. Contrast injection was performed. Left ventricular systolic function is normal. The estimated ejection fraction is 60 %. Moderate concentric left ventricular hypertrophy. The left atrium is mildly enlarged. Trivial mitral valve insufficiency. Trivial tricuspid valve insufficiency. Severe aortic stenosis. Trivial pulmonic valve insufficiency. Unable to estimate RV systolic pressure/pulmonary artery pressure due to technically difficult study. Diastolic function is indeterminate. Ordering Physician: Luis No Referring Physician: RADHA SOLORZANO Performed By: Johanna Ricci RDCS
== END ==
PROVIDERS: PCP Family Medicine; Referring Provider Internal Medicine Cardiovascular Disease; Visit Provider Internal Medicine Cardiovascular Disease
DX: R01.1 Cardiac murmur, unspecified (principal); R06.00 Dyspnea, unspecified; I35.0 Nonrheumatic aortic (valve) stenosis; I10 Essential (primary) hypertension
CPT/HCPCS: 93306; Q9957; A4216; C8929

== ENCOUNTER 2020-03-18 07:46 | Day surgery (SDC) | payer MEDICARE, OTHER, SELFPAY ==
--- NOTE | 2020-03-13 09:18 | RAD_ITS ---
STUDY: X-RAY CHEST REASON FOR EXAM: Male, 69 years old. Dyspnea. Precatheterization. TECHNIQUE: PA and lateral views of the chest. COMPARISON: November 22, 2013. FINDINGS: The lungs are clear and expanded. There is no demonstrated pleural abnormality. Normal size heart. Normal mediastinum and yael. Normal visualized pulmonary arteries. There is atherosclerotic calcification of the aortic arch with tortuosity. There are stable degenerative changes and mild dextroscoliosis of the thoracic spine. There is degenerative osteoarthritis of the bilateral shoulders. There is no demonstrated abnormality of the visualized soft tissue structures of the upper abdomen. RAD/Chest PA and Lateral IMPRESSION: Degenerative changes, as described above. No demonstrated acute cardiopulmonary process. There is no major interval change. Electronically Signed: Rigoberto Montalvo DO at 16:47 EDT Tel [phone], Service support ,
[2020-03-13 09:52] LABS: Hematocrit 39.6 % (40-54); Hemoglobin 13.5 g/dL (13.0-16.5); Mean Corp Hgb Conc 34.1 g/dL (32-36); Mean Corpuscular Hgb 30.3 pg (27.0-32.0); Mean Corpuscular Volume 88.8 fL (80-94); Mean Platelet Vol. 9.7 fl (6.2-12.0); Platelet Count 190 K/mm3 (150-450); RBC Distribution Width CV 12.7 % (11.6-14.6); RBC Distribution Width SD 41.4 fl (35.1-43.9); Red Blood Count 4.46 M/mm3 (4.6-6.2); White Blood Count 5.1 K/mm3 (4.4-11.0)
[2020-03-13 10:04] LABS: Anion Gap 6 (5-15); BUN 19 mg/dL (7-18); Chloride 107 mmol/L (98-107); EST Glomerular Filtration Rate 78 mL/min (>60); Est Glom Filt Rate - Afr Amer 95 mL/min (>60); Glucose 119 mg/dL (74-106); Potassium 4.4 mmol/L (3.5-5.1); Sodium Level 139 mmol/L (136-145)
[2020-03-13 10:10] LABS: International Normalized Ratio 1.1; Partial Thromboplast Time 27.7 Seconds (24.1-36.2); Prothrombin Time (Protime)PT. 13.7 SECONDS (11.7-14.9)
--- NOTE | 2020-03-14 14:10 | HP.PCM_ITS ---
<Tj Hugigns - Last Filed: 03/17/20 17:02> History and Physical Date of Admission: 03/18/20 HPI HPI History of Present Illness Details: This is a 69-year-old white male who recently establish outpatient cardiovascular care for concerns of aortic valve stenosis. He has previously been cared for by [facility] cardiology. 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 He states that he has been told in the past he has an underlying aortic valve disorder. According to previous cardiovascular records from March 2018 it appears he was diagnosed with severe aortic valve stenosis. At that time he had a transthoracic echocardiogram performed. Per the report from [facility] his left ventricle was considered normal with an LVEF of 53%, there was trivial TR, there was a report of severe aortic valve stenosis caused by a calcified valve with a peak gradient of 67 mmHg, a mean gradient of 39 mmHg, and an aortic valve area reported at 0.8 cm?. He states that he was asked to be considered for further valvular evaluation leading up to valvular repair/replacement. However at the time he placed that on hold secondary to his other medical issues with his chronic back discomfort as well as his 's health care related issues. He notes he still has chronic lower back discomfort. He is continuing outpati ent evaluation and care with upcoming injections . However he states at this time he is willing to proceed with additional cardiac evaluation. He does not complain of obvious chest discomfort at rest or with exertion. He does note with exertion, especially going up an incline, he begins to feel more short of breath and dyspneic and has to stop and rest. He has not had any syncopal events. However he states when he gets markedly short of breath and dyspneic sometimes he feels as if he may lose consciousness. He has not noted any palpitations or rapid rates. He has not developed any symptoms of acute orthopnea or PND or ongoing peripheral pitting edema. It appears he had a pharmacologic stress nuclear imaging study performed through the [facility] system in 2013. His perfusion was considered normal at that time. His stress LVEF was considered 71%. He did have an ECG in the office on 02/28/2020. He was noted to be in sinus rhythm. He had no acute ECG changes. After office appointment he underwent and Echocardiogram on 03/11/2020 that showed LV normal; estimated LVEF of 60% and severe AV stenosis. He will undergo a LHC to define coronary artery anatomy to further guide treatment for severe Aortic valve stenosis. Intake Vital Signs: See EMR Intake Visit Reasons: LHC Occupational Rehabilitation Aide Required: No Accompanied by: Self Allergies No Known Allergies Allergy (Verified 02/28/20 11:07) Medications See EMR [facility] Medical History (Updated 01/22/20 @ 13:19 by Jinny Patel) Nonrheumatic aortic (valve) stenosis (Chronic) Asthmatic bronchitis with exacerbation (Acute) Obstructive sleep apnea syndrome (Chronic) Obesity (Chronic) Type II diabetes mellitus (Chronic) Benign essential hypertension (Chronic) Intractable back pain (Acute) Pain (Acute) Benign prostatic hypertrophy (Chronic) Physical debility (Chronic) Surgical History (Updated 01/22/20 @ 13:10 by Jinny Patel) History of knee replacement (Resolved) History of total knee arthroplasty (Resolved) Family History (Updated 02/28/20 @ 11:10 by Jinny Patel) Father Myocardial infarction, Onset Age: 73 Mother Myocardial infarction, Onset Age: 68 Social History (Updated 02/28/20 @ 12:[address] Luis No MD) Smoking Status: Former smoker alcohol intake: never substance use type: does not use caffeine: Yes Type: coffee Number of servings: 3 ROS Const Const: Negative for fatigue, weakness, frequent falls, excessive sweating, weight gain or weight loss Eyes Eyes: Negative for transient loss of vision, blurry vision or change in vision ENT ENT: Negative for dizziness or balance problems Cardio Chest Pain: No Palpitations: No Edema: None Muscle aches with walking: None Resp Respiratory: Positive for SOB with activity (going up/downstairs); negative for SOB at rest GI GI: Negative vomiting or vomiting blood/hematemesis : Negative for hematuria Musc Musc: Positive for muscle aches/ myalgia (lower back pain follows with Dr. Devine) and muscle weakness (bilat knees); negative for joint pain or balance problems Skin Skin: Negative non-healing lesions or rash Neuro Neuro: Negative for dizziness, lightheadedness, orthostatic symptoms, frequent falls, weakness or blurry vision Micha Hematologic/Lymphatic: Negative for easy bleeding Endo Endo: Negative for fatigue or excessive sweating Psych Psych: Negative for anxiety or depression Allergy Allergy/Immunology: Negative for hives, Negative for rash Cardiology Exam Const Appearance: cooperative, healthy appearing, comfortable, no acute distress, well developed and well groomed Nutritional Appearance: overweight Orientation: alert, awake and oriented x3 Head Head: normal to inspection, normocephalic and atraumatic Ears: hearing grossly normal bilaterally Nose: external nose normal Face and Sinus: face symmetric Eyes Eyelids: eyelids normal Conjunctivae: conjunctivae normal Pupils: PERRL EOM: EOM intact bilaterally Neck Neck: normal visual inspection and full ROM Chest Chest inspection: normal inspection of the chest, symmetric chest movement and normal respiratory effort Auscultation: Bilateral: Clear to Auscultation Cardio Palpation: normal PMI Rate: regular rate Rhythm: regular rhythm Heart sounds: S1 normal and S2 normal Murmur: Grade 3/6, harsh, crescendo-decrescendo, LLSB, LVOT and sternal notch GI GI: normal to inspection, soft and bowel sounds present Neuro General: alert, awake, oriented x3 and moves all extremities Skin Skin: no rashes or lesions noted Extremities Pulses: Normal: Right Radial Pulse, Left Radial Pulse Lower Extremity Edema: None: Bilateral Psych Psychological: normal affect Assessment & Plan 1. Nonrheumatic aortic (valve) stenosis I35.0 Plan He underwent an echocardiogram on 03/11/2020 that showed severe aortic valve stenosis with a peak aortic valve gradient of 64.3 mmHg, mean aortic valve gradient of 43.9 mmHg, and aortic valve area of 0.8 cm2. He will undergo a [facility] catheterization to evaluate coronary anatomy to guide aortic valve treatment. As his work-up proceeds he would then need to be evaluated at a tertiary care center by a heart valve team to be considered for either a TAVR candidate versus a traditional surgical based aortic valve replacement. 2. Benign essential HTN I10 Plan He will continue medical therapy and follow-up. 3. Dyspnea on exertion R06.00 Plan His dyspnea is seemingly more so with exertion. Again this could be related to his aortic valve. Thus he will proceed with further evaluation care as noted above. Procedure Criteria Procedure Type: Elective COVID Risk Discussion: The surgeon/proceduralist and patient have discussed in detail the risk of exposure to and/or potential harm posed by the COVID-19 virus with having a surgery/procedure at this time versus the risk of delaying the surgery/procedure. It is not possible to know either the risk of delaying the surgery or procedure or chance of getting an infection with perfect accuracy, but a joint decision was made between the patient and the surgeon/proceduralist to proceed at this time with the scheduled surgery/procedure as indicated on the consent form. <Luis No - Last Filed: 03/18/20 07:47> Problem List (1) Nonrheumatic aortic (valve) stenosis Status: Chronic (2) Dyspnea on exertion Status: Acute (3) Benign essential hypertension Status: Chronic History and Physical Addendum: Date: 03-18-2020 I have re-examined the patient. There are no clinical changes since date of exam.
[2020-03-17 09:32] VITALS: BMI 33.4
--- NOTE | 2020-03-18 11:35 | CL.D_ITS ---
Patient Name: ASCENCION WEIR Study Date: 03/18/2020 Performing: Luis No MD Ht: 68.11 inches 173 cm : 1950 Wt: 220.46 lbs 100 kg Age: 69 Gender: male BSA: 2.13 PROCEDURE(S) PERFORMED DC11-AO ROOT ANGIO WITH HEART CATH IX92-[id number]/COR CLINICAL PROFILE AND INDICATIONS Indications: Valvular Disease, Pre-Operative Evaluation Heart Failure: None Stress/Imaging Stress/Image Study Performed: No Angina Classification Anginal Classification w/in 2 Weeks: CCS III CAD Presentations: Other: dyspnea on exertion CONCLUSIONS [place] Multivessel CAD Aortic Valve Calcification-Restriction RECOMMENDATIONS Risk factor modification Medical therapy Surgery consult for coronary revascularization Surgery consult for valvular disease DESCRIPTION OF PROCEDURE The patient arrived to the procedure lab. The risks and benefits of the procedure as well as a full d escription of our services here and current unavailability of surgical backup were fully explained to the patient and/or their significant other prior to the catheterization. The Timeout was completed, verifying the correct patient and procedure. The patient's procedural site was prepped and draped in the usual fashion. Local anesthetic was given subcutaneously to right groin region with Lidocaine 2%. Using a modified Seldinger technique, arterial access was obtained via the right femoral artery, a 4 Fr sheath was inserted Left Coronary Artery selective angiography was performed in multiple views us ing a 4 Fr. JL5 catheter. Right Coronary Artery selective angiography was then performed in multiple views using a 4 Fr. 3DRC catheter.The arterial sheath was pulled and manual compression applied until hemostasis is achieved. CORONARY ANGIOGRAPHY DOMINANCE: Right Dominant LEFT HEART ASSESSMENT Left Ventricular Ejection Fraction: Not assessed LEFT MAIN: Angiographically normal LEFT ANTERIOR DESCENDING ARTERY: Mild luminal irregularities PROX LAD: Mild calcification CIRCUMFLEX ARTERY: Mild luminal irregularities MID CIRC: eccentric: 50 % Stenosis RIGHT CORONARY ARTERY: PROX RCA: Mild luminal irregularities, eccentric: hazy: 75 % Stenosis MID RCA: Mild luminal irregularities VALVE FINDINGS: Aortic Valve: calcified / restricted AORTIC ROOT: Angiographically normal COMPLICATIONS No Complications PROCEDURE MEDICATIONS Versed 1 mg IV Oxygen: 2 L/min via nasal cannula SUMMARY OF HEMODYNAMIC DATA Time AIR REST ECG 09:32:40 AO 121/80 (99) SA 09:56:38 Signed By Luis No MD On 03/18/2020 11:34:31 Luis No MD
== END 2020-03-18 15:00 | disposition home or self-care (01) ==
LOC: CLSP 07:47
PROVIDERS: PCP Family Medicine; Referring Provider Internal Medicine Cardiovascular Disease; Visit Provider Internal Medicine Cardiovascular Disease
DX: I35.0 Nonrheumatic aortic (valve) stenosis (principal); I25.10 Atherosclerotic heart disease of native coronary artery without angina pectoris; I10 Essential (primary) hypertension; E11.9 Type 2 diabetes mellitus without complications; R06.00 Dyspnea, unspecified; G47.33 Obstructive sleep apnea (adult) (pediatric); N40.0 Benign prostatic hyperplasia without lower urinary tract symptoms; E66.9 Obesity, unspecified; Z79.899 Other long term (current) drug therapy; Z87.891 Personal history of nicotine dependence
CPT/HCPCS: 36415; 71046; 80048; 85027; 85610; 85730; 93454; 93567; 99152; 99153; J7040; Q9967; C1769; C1894

== ENCOUNTER → 2020-03-20 10:56 | Outpatient (CLI) | payer MEDICARE, OTHER, SELFPAY ==
[2020-03-17 09:32] VITALS: BMI 33.4
[2020-03-20 12:15] LABS: Anion Gap 3 (5-15); BUN 16 mg/dL (7-18); BUN/Creat Ratio 15.8 RATIO (10-20); Calcium,Total 8.6 mg/dL (8.5-10.1); Chloride 104 mmol/L (98-107); Creatinine, Serum 1.01 mg/dL (0.70-1.30); EST Glomerular Filtration Rate 77 mL/min (>60); Est Glom Filt Rate - Afr Amer 94 mL/min (>60); Glucose 114 mg/dL (74-106); Potassium 4.3 mmol/L (3.5-5.1); Sodium Level 136 mmol/L (136-145)
== END ==
PROVIDERS: PCP Family Medicine; Referring Provider Internal Medicine Cardiovascular Disease; Visit Provider Internal Medicine Cardiovascular Disease
DX: E11.9 Type 2 diabetes mellitus without complications (principal)
CPT/HCPCS: 36415; 80048

== ENCOUNTER → 2020-04-15 10:13 | Outpatient (CLI) | payer MEDICARE, OTHER, SELFPAY ==
[2020-03-17 09:32] VITALS: BMI 33.4
[2020-04-15 10:41] LABS: Absolute Lymphocyte Count 1.53 X10^3/uL (0.83-4.51); Basophil# 0.04 X10^3/uL; Basophil% 0.7 % (0-1); Eosinophil# 0.24 X10^3/uL; Eosinophils% 4.4 % (0-5); Hematocrit 38.2 % (40-54); Lymphocyte # 1.53 X10^3/ul (4.0); Lymphocyte % 28.1 % (19-41); Mean Corpuscular Hgb 30.7 pg (27.0-32.0); Mean Corpuscular Volume 90.1 fL (80-94); Mean Platelet Vol. 9.4 fl (6.2-12.0); Monocyte# 0.65 X10^3/uL; Monocyte% 11.9 % (0-10); NRBC Flagged by Analyzer 0 % (0-5); Neutrophil # 2.96 X10^3/uL (2.7-7.7); Neutrophil % 54.5 % (47-70); Platelet Count 169 K/mm3 (150-450); RBC Distribution Width CV 12.7 % (11.6-14.6); RBC Distribution Width SD 41.6 fl (35.1-43.9); Red Blood Count 4.24 M/mm3 (4.6-6.2); White Blood Count 5.4 K/mm3 (4.4-11.0)
[2020-04-15 11:12] LABS: Anion Gap 5 (5-15); BUN 19 mg/dL (7-18); BUN/Creat Ratio 17.9 RATIO (10-20); Calcium,Total 8.5 mg/dL (8.5-10.1); Chloride 103 mmol/L (98-107); Creatinine, Serum 1.06 mg/dL (0.70-1.30); EST Glomerular Filtration Rate 73 mL/min (>60); Est Glom Filt Rate - Afr Amer 88 mL/min (>60); Glucose 94 mg/dL (74-106); Potassium 4.6 mmol/L (3.5-5.1); Sodium Level 134 mmol/L (136-145)
== END ==
PROVIDERS: PCP Family Medicine
DX: I35.0 Nonrheumatic aortic (valve) stenosis (principal)
CPT/HCPCS: 36415; 80048; 85025

== ENCOUNTER 2020-05-29 18:15 | Emergency (ER) | payer MEDICARE, OTHER, SELFPAY ==
[2020-03-17 09:32] VITALS: BMI 33.4
[2020-05-29 18:16] VITALS: BP 151/88; PULSE 101; RESP 18; TEMP 36.2; O2SAT 96; O2SAT 97; BMI 33.5
--- NOTE | 2020-05-29 18:25 | EKG12_ITS ---
Test Reason : REPEAT Blood Pressure : / mmHG Vent. Rate : 107 BPM Atrial Rate : 107 BPM P-R Int : 126 ms QRS Dur : 080 ms QT Int : 308 ms P-R-T Axes : 050 029 047 degrees QTc Int : 411 ms Sinus tachycardia Otherwise normal ECG Confirmed by MARTHA RUIZ, SARAH ([id number]), department editor YASH CHAPPELL ([id number]) on 06/02/2020 2:44:43 PM Referred By: EDGARDO Confirmed By:BEATRIZ THOMAS MD
[2020-05-29 18:49] LABS: Absolute Lymphocyte Count 1.11 X10^3/uL (0.83-4.51); Absolute Neutrophil Count 6.3 X10^3/uL (2.0-7.7); Basophil# 0.06 X10^3/uL; Basophil% 0.6 % (0-1); Eosinophil# 0.87 X10^3/uL; Eosinophils% 9.3 % (0-5); Hematocrit 35.6 % (40-54); Hemoglobin 11.5 g/dL (13.0-16.5); Lymphocyte # 1.11 X10^3/ul (4.0); Lymphocyte % 11.8 % (19-41); Mean Corp Hgb Conc 32.3 g/dL (32-36); Mean Corpuscular Hgb 30.1 pg (27.0-32.0); Mean Corpuscular Volume 93.2 fL (80-94); Mean Platelet Vol. 9.6 fl (6.2-12.0); Monocyte% 10.7 % (0-10); NRBC Flagged by Analyzer 0 % (0-5); Neutrophil % 67.2 % (47-70); Platelet Count 189 K/mm3 (150-450); RBC Distribution Width CV 13.4 % (11.6-14.6); RBC Distribution Width SD 45.5 fl (35.1-43.9); Red Blood Count 3.82 M/mm3 (4.6-6.2); White Blood Count 9.4 K/mm3 (4.4-11.0)
[2020-05-29 18:59] LABS: International Normalized Ratio 1.4; Prothrombin Time (Protime)PT. 16.3 SECONDS (11.7-14.9)
[2020-05-29 19:01] LABS: Bedside Glucose 213 mg/dL (70-110)
--- NOTE | 2020-05-29 19:01 | RAD_ITS ---
STUDY: X-RAY CHEST REASON FOR EXAM: Male, 69 years old. NEW ONSET OF CHEST PAIN IN LAST 24 HRS. PATIENT HAD OPEN HEART SURGERY 05/08/20 TECHNIQUE: Single AP portable view of the chest. COMPARISON: March 13, 2020 FINDINGS: The lungs are clear and expanded. There is no demonstrated pleural abnormality. Sternal cerclage wires are present from a prior sternotomy. Normal mediastinum and yael. Normal visualized pulmonary arteries. Normal visualized aortic arch and descending thoracic aorta. There are diffuse degenerative changes of the visualized thoracic spine. Normal visualized ribs, clavicles, and shoulders. There is no demonstrated abnormality of the visualized soft tissue structures of the upper abdomen. RAD/Chest 1 View (Portable) IMPRESSION: Degenerative changes, as described above. No demonstrated acute cardiopulmonary process. Electronically Signed: Chidi Dawson MD at 19:46 EDT , Service support ,
[2020-05-29 19:28] LABS: Anion Gap 7 (5-15); BUN 21 mg/dL (7-18); BUN/Creat Ratio 17.8 RATIO (10-20); Calcium,Total 8.8 mg/dL (8.5-10.1); Chloride 102 mmol/L (98-107); Creatinine, Serum 1.18 mg/dL (0.70-1.30); EST Glomerular Filtration Rate 65 mL/min (>60); Est Glom Filt Rate - Afr Amer 78 mL/min (>60); Estimated Creatinine Clearance 55.55 ml/min; Glucose 190 mg/dL (74-106); Potassium 4.5 mmol/L (3.5-5.1); Sodium Level 135 mmol/L (136-145)
[2020-05-29 19:41] VITALS: BP 142/47; PULSE 109; RESP 18; TEMP 37.9
--- NOTE | 2020-05-29 19:44 | EKG12_ITS ---
Test Reason : CP Blood Pressure : / mmHG Vent. Rate : 100 BPM Atrial Rate : 100 BPM P-R Int : 132 ms QRS Dur : 080 ms QT Int : 334 ms P-R-T Axes : 050 046 061 degrees QTc Int : 430 ms Normal sinus rhythm Normal ECG Confirmed by MARTHA RUIZ, SARAH ([id number]), editor farm journal YASH CHAPPELL ([id number]) on 06/02/2020 2:44:27 PM Referred By: TL Confirmed By:BEATRIZ THOMAS MD
[2020-05-29] MEDS: Morphine 4 MG/ML Syringe IV ×2 (20:24→23:45)
[2020-05-29 20:27] VITALS: BP 140/70; PULSE 112; PULSE 113; RESP 18; TEMP 38.2; O2SAT 98
--- NOTE | 2020-05-29 20:30 | ED.VIS.GEN ---
History of Present Illness Chief Complaint: Chest Pain Informant: Patient Onset: Yesterday Narrative: Patient here with significant other for evaluation of substernal chest pressure since yesterday keeping up throughout the night. States pain currently 9. He is status post valve repair and two-vessel CABG May 08, [address] Killian [facility]. He is followed by Dr. No. He has known valve repair in the past, states had a follow-up heard a murmur and was referred to Dr. Killian. Reports a catheterization was performed and found the coronary disease leading to the CABG procedure. He states he left the hospital on multiple medication including amiodarone and warfarin. When asked about atrial fibrillation he is unclear about this however this is likely event that occurred while in the hospital. He was there for 6 days. He denies cough urinary symptoms. Denies nausea or vomiting. Denies fever chills or sweats. History of hypertension, diabetes, hypercholesterolemia. Remote tobacco years ago. Prior similar symptoms: No Past Medical History - Allergies and Home Meds Allergies/Adverse Reactions: Allergies No Known Allergies Allergy (Verified 02/28/20 11:07) Past Medical History: - - Hypertension, hyperlipidemia, diabetes, likely paroxysmal atrial fibrillation history Surgical History: noncontributory, - - lumbar disk surgery Smoking Status: Former smoker - Family History Maternal Family History: Family History (Last Updated 02/28/20 @ 11:10 by Jinny Patel) Father Myocardial infarction, Onset Age: 73 Mother Myocardial infarction, Onset Age: 68 Family History: Reports: Heart Disease - of [place] Paternal Family History: Family History (Last Updated 02/28/20 @ 11:10 by Jinny Patel) Father Myocardial infarction, Onset Age: 73 Mother Myocardial infarction, Onset Age: 68 Family History: Reports: - - Father of [place] at the age of 62 yearas Review of Systems General: Denies: Chills, Fever, Sweats Eyes: Denies: Visual changes - bilaterally, Diplopia ENT: Denies: Rhinorrhea, Sore throat Cardiovascular: Reports: Chest pain. Denies: Palpitations Respiratory: Denies: Dyspnea, Cough, Dyspnea on exertion Gastrointestinal: Denies: Abdominal pain, Nausea, Vomiting, Diarrhea, Melena, Hematochezia Genitourinary: Denies: Dysuria, Hematuria, Frequency Musculoskeletal: Denies: Back pain, Extremity Pain Skin: Denies: Rash, Wounds Neurological: Denies: Headache, Weakness, Numbness Physical Exam Vital Signs/Narrative: Vital Signs Temp Pulse Resp BP Pulse Ox 05/29/20 19:41 100.3 F H 109 H 18 142/47 H 05/29/20 18:16 97.2 F L 101 H 18 151/88 H 97 Inital Vital Signs reviewed: Yes General: Well nourished, Well developed, No Acute Distress Head: Normocephalic, Atraumatic Eyes: Perrl, EOMI ENT: Moist mucous membranes, No rhinorrhea Neck: Supple, Nontender Cardiovascular: Regular rate, Regular rhythm, No murmurs Respiratory: No distress, CTA bilaterally, - - Midline chest incision clean, dry, intact. Abdomen: Soft, Nontender, Nondistended, Normal bowel sounds Back: Nontender, Normal Inspection Extremities: Nontender, No edema Skin: Normal color, No rash Neurological: Alert, Oriented x3, Cranial nerves II-XII grossly intact, Normal Strength, Normal Sensation Psychological: Normal affect, Normal Mood Diagnostic/Tx/Re-eval Abnormal Lab Results 05/29/20 05/29/20 05/29/20 18:30 18:30 18:30 WBC 9.4 RBC 3.82 L Hgb 11.5 L Hct 35.6 L MCV 93.2 MCH 30.1 MCHC 32.3 RDW Std Deviation 45.5 H RDW Coeff of Liang 13.4 Plt Count 189 MPV 9.6 Immature Gran % (Auto) 0.400 Neut % (Auto) 67.2 Lymph % (Auto) 11.8 L Sherman % (Auto) 10.7 H Eos % (Auto) 9.3 H Baso % (Auto) 0.6 Absolute Neuts (auto) 6.3 Absolute Lymphs (auto) 1.11 Nucleated RBC % 0 PT 16.3 H INR 1.4 APTT 35.0 Sodium 135 L Potassium 4.5 Chloride 102 Carbon Dioxide 26.0 Anion Gap 7 BUN 21 H Creatinine 1.18 Estim Creat Clear Calc 55.55 Est GFR (MDRD) Af Amer 78 Est GFR (MDRD) Non-Af 65 BUN/Creatinine Ratio 17.8 Glucose 190 H Calcium 8.8 Troponin I < 0.015 Urine Color Urine Clarity Urine pH Ur Specific [place] Urine Protein Urine Glucose (UA) Urine Ketones Urine Occult Blood Urine Nitrite Urine Bilirubin Urine Urobilinogen Ur Leukocyte Esterase Urine RBC Urine WBC Ur Squamous Epith Cells Urine Bacteria Urine Mucus POC Glucose 05/29/20 05/29/20 18:54 20:30 WBC RBC Hgb Hct MCV MCH MCHC RDW Std Deviation RDW Coeff of Liang Plt Count MPV Immature Gran % (Auto) Neut % (Auto) Lymph % (Auto) Sherman % (Auto) Eos % (Auto) Baso % (Auto) Absolute Neuts (auto) Absolute Lymphs (auto) Nucleated RBC % PT INR APTT Sodium Potassium Chloride Carbon Dioxide Anion Gap BUN Creatinine Estim Creat Clear Calc Est GFR (MDRD) Af Amer Est GFR (MDRD) Non-Af BUN/Creatinine Ratio Glucose Calcium Troponin I Urine Color Yellow Urine Clarity Clear Urine pH 6.5 Ur Specific [place] 1.005 Urine Protein 30 H Urine Glucose (UA) 1000 H Urine Ketones Negative Urine Occult Blood Negative Urine Nitrite Negative Urine Bilirubin Negative Urine Urobilinogen Normal Ur Leukocyte Esterase Negative Urine RBC 0 SEEN Urine WBC 0 SEEN Ur Squamous Epith Cells 0 SEEN Urine Bacteria 0 SEEN Urine Mucus 0 SEEN POC Glucose 213 H Clinical Impression(s) from Imaging Studies Chest X-Ray 05/29/20 19:01 IMPRESSION: Degenerative changes, as described above. No demonstrated acute cardiopulmonary process. Electronically Signed: Chidi Dawson MD at 19:46 EDT , Service support , - EKG Initial EKG Interpretation: Sinus Rhythm - Sinus rate of 107, no ST changes, T wave inversions anterior leads. This is new compared to February 2017. Follow-up EKG Interpretation: Sinus Rhythm - Repeat EKG sinus rate of 100, unchanged from first ekg - Medical Decision Making Patient postop 3 weeks, chest pain since last evening. Took his aspirin at home. EKG notes T wave inversions are new V2, however this to compare 2017, he is postop with CABG. He had troponin that returned negative with persistent symptoms since last night. Labs are stable, he developed a fever while in the ED. Denies cough or urine symptoms. Chest x-ray negative. I sent for blood cultures along with a urine. Urine does not show signs of infection. His wound does not show any signs of infection. Second EKG is also unchanged. He is postop CABG, with his symptoms, concerns for potential pericarditis however EKG does not show this. He is currently symptom-free. I did speak with on-call assessment director Dr. Mendiola, discussed patient's history and findings and concerns. Since he follows Dr. No, negative work-up thus far, he agrees that he can stay here for management. We did discuss his symptoms, with him being subtherapeutic with his INR 1.4, will send for CAT scan to rule out PE. Discussed discussion evaluate for any other abnormalities being postop. He is not hypoxic. He is in no respiratory distress. He was symptom-free on reevaluation. We also did send for COVID swab due to his fever. He has no other symptoms. I spoke with hospitalist Dr. Basurto for admission to PCU. ED Disposition - Plan for ED Patient: Disposition: Acute Care Hospital [facility] Diagnosis: Chest pain, suspect pericarditis, S/P CABG x 2, Fever
[2020-05-29 20:38] LABS: Bacteria 0 SEEN /hpf (None Seen); Mucous, Urine 0 SEEN /hpf (<or=2+); Red Blood Cells-Urine 0 SEEN /hpf (0-5); Squamous Epithelial Cells - UA 0 SEEN /hpf (0-5); White Blood Cells 0 SEEN /hpf (0-5)
[2020-05-29 20:48] LABS: Color, Urine Yellow (Yellow); Glucose, Dipstick 1000 mg/dl (Normal); Ketone-Dipstick Negative (Negative); Leukocyte Esterase-Dipstick Negative /ul (Negative); Nitrite-Dipstick Negative (Negative); Occult Blood-Urine Negative /ul (Negative); Protein-Dipstick 30 mg/dl (Negative); Specific Gravity, Urine 1.005 (1.002-1.030); Urine Bilirubin Dipstick Negative (Negative); Urine Clarity Clear (Clear); Urine Urobilinogen Normal (Normal); Urine pH 6.5 (5.0 - 8.0)
[2020-05-29] MEDS: Acetaminophen 500 MG Tablet 1000 MG PO (21:15)
[2020-05-29 22:08] VITALS: BP 158/85; PULSE 113; RESP 18; O2SAT 98
--- NOTE | 2020-05-29 22:11 | CT_ITS ---
We are attempting to reach an attending provider to discuss findings. An addendum with communication details will be sent when the communication is complete. STUDY: CTA CHEST REASON FOR EXAM: Male, 69 years old. CHEST PAIN POST-OP CABG ON 05-08-20 -- HX: HTN, ASTHMA, DIABETES RADIATION DOSAGE (If Supplied By Facility): CTDIvol = ( 15.03 ) mGy, DLP = ( 534.94 ) mGycm TECHNIQUE: The examination was performed with the intravenous administration of IV 100mL Isovue-370. Post-processing of the angiographic images was performed, with multiplanar reformation and 3D reconstruction. Individualized dose optimization techniques were used for this CT. COMPARISON: Chest x-ray FINDINGS: Normal enhancement of the main pulmonary artery and right and left pulmonary arteries. Normal enhancement of the bilateral peripheral pulmonary arteries. There is no demonstrated pulmonary embolism. There is atherosclerotic calcification of the aortic arch with tortuosity. There is no demonstrated aortic dissection. Sternal cerclage wires are present from a prior sternotomy. There is adjacent soft tissue swelling. There is 2.0 cm collection with air deep to the sternum suspicious for abscess. There is aortic valve prosthesis. Normal mediastinum. Normal hilar regions. Normal visualized trachea and bronchi. The lungs are well expanded. There is lower lung atelectasis. There are small pleural effusions. Normal chest wall structures. There are degenerative changes of thoracic spine. Normal visualized upper abdomen. CT/CTA Chest W/WO Contrast IMPRESSION: CTA chest examination, without a demonstrated pulmonary embolism or arterial dissection. Lower lung atelectasis. Collection with air adjacent to the sternum with possible abscess. Electronically Signed: Chidi Dawson MD at 23:14 EDT , Service support ,
[2020-05-29 22:56] VITALS: BP 109/46; PULSE 113; RESP 16; TEMP 37.7; O2SAT 98
[2020-05-29 23:23] VITALS: BP 121/95; PULSE 114; RESP 21; TEMP 37.7; O2SAT 97
[2020-05-30 00:03] VITALS: BP 132/65; PULSE 116; RESP 20; TEMP 37.7; O2SAT 94
[2020-05-30 00:59] VITALS: BP 126/54; PULSE 113; RESP 20; O2SAT 93
== END 2020-05-30 01:08 | disposition short-term general hospital (02) ==
LOC: ED 18:45 → PCU 23:03 → ED 23:58
PROVIDERS: Emergency Medicine; Emergency Provider Emergency Medicine; PCP Family Medicine; Visit Provider Hospitalist
DX: R07.9 Chest pain, unspecified (principal); R50.9 Fever, unspecified; E11.9 Type 2 diabetes mellitus without complications; I10 Essential (primary) hypertension; E78.5 Hyperlipidemia, unspecified; E78.00 Pure hypercholesterolemia, unspecified; Z95.1 Presence of aortocoronary bypass graft; Z79.82 Long term (current) use of aspirin; Z79.01 Long term (current) use of anticoagulants; Z79.84 Long term (current) use of oral hypoglycemic drugs
CPT/HCPCS: 71045; 71275; 80048; 81001; 82962; 84484; 85025; 85610; 85730; 87040; 87086; 87088; 87635; 93005; 96365; 96375; 96376; 99285; Q9967; A4216; U0003

== ENCOUNTER → 2020-06-26 12:57 | Outpatient (CLI) | payer MEDICARE, OTHER, SELFPAY ==
[2020-06-11 09:29] VITALS: BMI 32.7
--- NOTE | 2020-06-26 13:11 | CT_ITS ---
STUDY: CT CHEST WITHOUT CONTRAST REASON FOR EXAM: Male, 69 years old. ACUTE PERICARDITIS, S/P CABG 6 WKS AGO, PUFFINESS AT SURGERY SITE WITH WARM TO TOUCH RADIATION DOSAGE (If Supplied By Facility): CTDIvol = ( 16.09 ) mGy, DLP = ( 554.72 ) mGycm TECHNIQUE: Transaxial imaging was performed without the administration of intravenous contrast material. Multiplanar coronal and sagittal images were reformatted. Individualized dose optimization techniques were used for this CT. COMPARISON: Comparison is made with prior examination dated 05/29/2020. FINDINGS: The lungs are normal. There is no demonstrated pleural abnormality. Sternal cerclage wires and vascular clips are present from a prior sternotomy and coronary artery bypass graft procedure (CABG). Aortic valve replacement. There is a 1.5 cm x 1.7 cm x 2.1 cm rounded hypodensity in the subcutaneous tissues overlying the midline sternotomy. This most likely represents a postoperative seroma. There is evidence of a small soft tissue density in the anterior mediastinum on the left side deep to the sternum. Air bubbles are seen within it. This is unchanged as compared to prior study. The previously seen pericardial effusion has cleared. Normal mediastinum. Normal hilar regions. Normal unenhanced pulmonary arteries. There is atherosclerotic calcification of the aortic arch with tortuosity and elongation of the aortic arch and descending thoracic aorta. There are multi-level degenerative changes of the thoracic spine. There is no demonstrated abnormality of the visualized upper abdomen. CT/Chest without Contrast IMPRESSION: Subcutaneous edema overlying the midline sternotomy as described with a focal area of fluid and collection of air deep to midline sternotomy on the left side of the midline with air bubbles. Further follow-up is recommended. Electronically Signed: Claude Hare, at 14:51 EDT , Service support ,
--- NOTE | 2020-06-26 13:22 | ECHOCS_ITS ---
Reason For Study: PERICARDIAL EFFUSION Procedure This was a 2D Doppler, Color Flow transthoracic echocardiogram. The study was technically difficult. Contrast injection was performed. Pt is having too much pain on incision and throughout chest wall to tolerate probe pressure. Limited views and information were obtained. Exam performed in department. Left Ventricle Normal LV size. Left ventricular systolic function is normal. The estimated ejection fraction is 65 %. No regional wall motion abnormalities noted. Right Ventricle Normal RV size. Normal systolic function. Atria Normal left atrium. Normal right atrium. No doppler evidence for ASD. Mitral Valve There is no mitral annular calcification. Normal mitral valve. Trivial mitral valve insufficiency. Tricuspid Valve Normal tricuspid valve. Trivial tricuspid valve insufficiency. Right ventricular systolic pressure estimated to be 35 mmHg. Aortic Valve The aortic valve is not well visualized. Pulmonic Valve The pulmonic valve is not well visualized. Great Vessels The aortic root is not well visualized. Pericardium/Pleural No pericardial effusion. Medication 22 gauge I.V. with prn adaptor inserted into right arm. Diluted definity 2.0ml given slow IV push to enhance endocardial definition. MMode/2D Measurements & Calculations LAV(MOD-bp): 42.8 ml SV(MOD-sp4): 55.5 ml LVAd ap4: 30.0 cm2 LAV(MOD-bp) Indexed: 20.6 ml/m2 EDV(MOD-sp4): 87.2 ml LAV(MOD-sp2): 40.4 ml EDV(sp4-el): 92.0 ml LAV(MOD-sp4): 42.5 ml LVAs ap4: 15.7 cm2 ESV(MOD-sp4): 31.7 ml ESV(sp4-el): 31.9 ml EF(MOD-sp4): 63.7 % EF(sp4-el): 65.3 % SV(sp4-el): 60.1 ml LA A4 area: 18.3 cm2 RA A4 area: 14.6 cm2 Doppler Measurements & Calculations TR max lynette: 280.6 cm/sec TR max P.5 mmHg Interpretation Summary The study was technically difficult. Contrast injection was performed. Left ventricular systolic function is normal. The estimated ejection fraction is 65 %. Trivial mitral valve insufficiency. Trivial tricuspid valve insufficiency. Right ventricular systolic pressure estimated to be 35 mmHg. No pericardial effusion. Ordering Physician: WALT RAMIREZ Referring Physician: KARLEY GALEANO Performed By: Josefa Torres, RDCS, RVT
== END ==
PROVIDERS: PCP Family Medicine; Visit Provider Thoracic Surgery (Cardiothoracic Vascular Surgery)
DX: I31.3 Pericardial effusion (noninflammatory) (principal); Z95.1 Presence of aortocoronary bypass graft
CPT/HCPCS: 71250; 93306; Q9957; A4216; C8929

== ENCOUNTER 2020-06-29 10:13 | Emergency (ER) | payer MEDICARE, OTHER, SELFPAY ==
[2020-06-11 09:29] VITALS: BMI 32.7
[2020-06-29 10:14] VITALS: BP 126/48; PULSE 80; RESP 17; TEMP 36.3; O2SAT 98; BMI 32.3
--- NOTE | 2020-06-29 11:40 | ED.VIS.GEN ---
History of Present Illness Chief Complaint: Wound Check Informant: Patient Onset: Days Context: Gradual Onset Timing: Continuous Narrative: Patient is a 69-year-old male that is almost 2 weeks status post open heart surgery with double bypass and aortic valve replacement presenting with pain and swelling at his sternal incision site. Patient states since the surgery this area has been strawberry red and he has been checked multiple times for it. Yesterday it started to see more black and purple and become more swollen. He denies any drainage from the site. He is continued to have chest wall pain since his surgery but states is unchanged. He denies any fever, chills, nausea, vomiting or systemic symptoms. His surgery was done by Dr. Killian at [facility]. Past Medical History - Allergies and Home Meds Allergies/Adverse Reactions: Allergies No Known Allergies Allergy (Verified 06/29/20 10:14) Primary Care Physician: Mike Flores MD [Primary Care Provider] - Past Medical History: - - Coronary artery disease Surgical History: coronary bypass surgery, - - lumbar disk surgery, aortic valve replacement Smoking Status: Former smoker - Family History Maternal Family History: Family History (Last Reviewed 06/11/20 @ 09:34 by Jinny Patel) Father Myocardial infarction, Onset Age: 73 Mother Myocardial infarction, Onset Age: 68 Family History: Reports: Heart Disease - of [place] Paternal Family History: Family History (Last Reviewed 06/11/20 @ 09:34 by Jinny Patel) Father Myocardial infarction, Onset Age: 73 Mother Myocardial infarction, Onset Age: 68 Family History: Reports: - - Father of [place] at the age of 62 yearas Review of Systems General: Denies: Chills, Fever, Sweats Eyes: Denies: Visual changes - bilaterally, Diplopia ENT: Denies: Rhinorrhea, Sore throat Cardiovascular: Reports: Chest pain. Denies: Palpitations Respiratory: Denies: Dyspnea, Cough, Dyspnea on exertion Gastrointestinal: Denies: Abdominal pain, Nausea, Vomiting, Diarrhea, Melena, Hematochezia Genitourinary: Denies: Dysuria, Hematuria, Frequency Musculoskeletal: Denies: Back pain, Extremity Pain Skin: Reports: Abscess - sternum . Denies: Rash, Wounds Neurological: Denies: Headache, Weakness, Numbness Physical Exam Vital Signs/Narrative: Vital Signs Temp Pulse Resp BP Pulse Ox 06/29/20 10:14 97.4 F L 80 17 126/48 H 98 Inital Vital Signs reviewed: Yes General: Well nourished, Well developed, No Acute Distress Head: Normocephalic, Atraumatic Eyes: Perrl, EOMI ENT: Moist mucous membranes, No rhinorrhea Neck: Supple, Nontender, No JVD Cardiovascular: Regular rate, Regular rhythm, Murmur Respiratory: No distress, CTA bilaterally, Chest tenderness - sternotomy site. Negative for: Diminished, Decreased Air Movement Abdomen: Soft, Nontender, Nondistended, Normal bowel sounds Back: Nontender, Normal Inspection Extremities: Nontender, No edema Skin: Normal color, No rash, - - 2.5 cm x 2 cm area of fluctuance at proximal sternotomy site with no overlying erythema. Mild tenderness to palpation. Neurological: Alert, Oriented x3, Cranial nerves II-XII grossly intact, Normal Strength, Normal Sensation Psychological: Normal affect, Normal Mood Diagnostic/Tx/Re-eval - Medical Decision Making Patient is evaluated for painful swelling at his sternotomy site that is been worsening for the past few days. Patient's had as well pain associated with his sternotomy since the surgery. He states is not significantly changed except for the area that is swollen. He denies any systemic symptoms. He actually had a CT of his chest performed 3 days ago ordered by his cardiothoracic surgeon and performed at [facility] for the same complaint. This showed a here is a 1.5 cm x 1.7 cm x 2.1 cm rounded hypodensity in the subcutaneous tissues overlying the midline sternotomy. This most likely represents a postoperative seroma. Also had some other changes which were not acute on the CT. Case is discussed with his cardiothoracic surgeon, Dr. Killian, who recommends starting patient on Keflex, draining and packing the likely seroma and to follow-up in the office in the next day or 2. Patient has an appointment on Tuesday, 3 days from now. Patient is agreeable with this plan of care. Patient is otherwise well-appearing with normal vital signs. I do not think blood work or further evaluation is emergent indicated at this time. Patient is given first dose of Keflex in the emergency room. See procedure note for seroma drainage. 2 sets of wound cultures are taken from the site. Patient is counseled on wound care and should he have any worsening to first call his cardiothoracic surgeon and then return to the emergency room if directed to. Patient is counseled on signs and symptoms requiring return to the emergency room. Patient verbalizes agreement and understand this plan. Patient discharged home in stable and improved condition. Procedures Procedure(s): Incision and drainage of seroma. Area cleansed with Betadine and then allowed to dry. 1 cc of 1% lidocaine without epinephrine is injected subcutaneously over the area of fluctuance. Once adequate analgesia was achieved #11 blade used to make a 1 cm incision. Initially serosanguineous fluid is obtained and then clotted blood. Wound cultures obtained. Quarter inch packing placed into the wound to keep the tract open. Wound is then covered with sterile dressing. Patient tolerated procedure well with no immediate complications. ED Disposition - Plan for ED Patient: Disposition: Home or Assisted Living Diagnosis: Seroma after procedure Instructions: ED Seroma Post Op Prescriptions: Cephalexin [Keflex] 500 mg PO Q6 #40 cap Transmission Status: Pending to [facility] Referrals: Mike Flores MD [Primary Care Provider] - Additional Instructions: Call Dr. Killian's office tomorrow to be seen in the next 2 days. If he is comfortable waiting till your already scheduled appointment on Tuesday that is fine. Take antibiotics as prescribed. Keep the packing in place and dressing on it. You might have drainage this is normal. Return the emergency room if you develop significantly worsening symptoms.
[2020-06-29] MEDS: Cephalexin 250 MG Capsule 500 MG PO (13:21)
[2020-06-29 13:24] VITALS: RESP 17
== END 2020-06-29 13:24 | disposition home or self-care (01) ==
PROVIDERS: Emergency Provider Emergency Medicine; PCP Family Medicine
DX: L76.34 Postprocedural seroma of skin and subcutaneous tissue following other procedure (principal); I25.10 Atherosclerotic heart disease of native coronary artery without angina pectoris; Z95.1 Presence of aortocoronary bypass graft; Z95.2 Presence of prosthetic heart valve; Z79.82 Long term (current) use of aspirin; Z79.01 Long term (current) use of anticoagulants; Z79.899 Other long term (current) drug therapy; Z87.891 Personal history of nicotine dependence
CPT/HCPCS: 10140; 10060; 87070; 87205; 99283

== ENCOUNTER → 2020-08-01 12:53 | Outpatient (CLI) | payer MEDICARE, OTHER, SELFPAY ==
[2020-07-09 13:36] VITALS: BMI 32.2
== END ==
PROVIDERS: PCP Family Medicine; Referring Provider Internal Medicine Cardiovascular Disease; Visit Provider Internal Medicine Cardiovascular Disease
DX: I97.89 Other postprocedural complications and disorders of the circulatory system, not elsewhere classified (principal); I48.91 Unspecified atrial fibrillation; I48.92 Unspecified atrial flutter
CPT/HCPCS: 93225; 93226

== ENCOUNTER → 2020-09-22 09:49 | Outpatient (CLI) | payer MEDICARE, OTHER, SELFPAY ==
[2020-09-09 08:26] VITALS: BMI 32.2
--- NOTE | 2020-09-22 09:51 | ECHOCS_ITS ---
Reason For Study: S/P AVR Procedure This was a 2D Doppler, Color Flow transthoracic echocardiogram. The study was technically difficult. Contrast injection was performed. Exam performed in department. Left Ventricle Normal LV size. Left ventricular systolic function is normal. The estimated ejection fraction is 60 %. There is evidence of diastolic dysfunction. No regional wall motion abnormalities noted. Right Ventricle Normal RV size. Normal systolic function. Atria The left atrium is mildly enlarged. Normal right atrium. No doppler evidence for ASD. Mitral Valve There is no mitral annular calcification. Normal mitral valve. Mild (1+) mitral valve insufficiency. Tricuspid Valve Normal tricuspid valve. Trivial tricuspid valve insufficiency. Aortic Valve Stable appearing bioprosthetic aortic valve apparatus. Pulmonic Valve The pulmonic valve is not well visualized. Great Vessels Normal sized aortic root. Pericardium/Pleural Trivial pericardial effusion. There are no echocardiographic indications of cardiac tamponade. Medication 22 gauge I.V. with prn adaptor inserted into right arm. Diluted definity 2.5ml given slow IV push to enhance endocardial definition. MMode/2D Measurements & Calculations LVIDd: 4.4 cm IVSd: 1.00 cm LVOT diam: 2.0 cm LVIDs: 3.2 cm LVPWd: 1.2 cm RVDd: 4.0 cm FS: 28.3 % LVOT area: 3.2 cm2 Ao root diam: 2.8 cm LAV(MOD-sp4): 65.7 ml LVAd ap4: 34.1 cm2 LA dimension: 4.1 cm EDV(MOD-sp4): 119.0 ml EDV(sp4-el): 125.0 ml LVAs ap4: 18.3 cm2 ESV(MOD-sp4): 41.2 ml ESV(sp4-el): 42.2 ml EF(MOD-sp4): 65.4 % EF(sp4-el): 66.3 % SV(MOD-sp4): 77.8 ml SV(sp4-el): 82.8 ml LA A4 area: 22.7 cm2 RA A4 area: 19.5 cm2 Time Measurements MV dec time: 0.22 sec Doppler Measurements & Calculations MV E max isidro: 76.8 cm/sec Lat Peak E' Isidro: 5.4 cm/sec Med Peak E' Isidro: 4.8 cm/sec MV A max isidro: 107.3 cm/sec E/E' lat: 14.3 E/E' med: 16.1 MV E/A: 0.72 MV V2 max: 129.7 cm/sec MV P1/2t max isidro: 88.0 cm/sec Ao V2 max: 164.6 cm/sec MV max P.7 mmHg MV P1/2t: 87.5 msec Ao max P.8 mmHg MV V2 mean: 71.7 cm/sec MV dec slope: 294.6 cm/sec2 Ao V2 mean: 111.7 cm/sec MV mean P.3 mmHg MVA(P1/2t): 2.5 cm2 Ao mean P.7 mmHg MV V2 VTI: 28.6 cm Ao V2 VTI: 34.5 cm MVA(VTI): 2.7 cm2 MARGARET(I,D): 2.2 cm2 MARGARET(V,D): 1.9 cm2 LV V1 max: 98.0 cm/sec SV(LVOT): 76.2 ml PA V2 max: 69.9 cm/sec LV V1 max P.8 mmHg LV V1 mean P.3 mmHg LV V1 mean: 70.6 cm/sec LV V1 VTI: 24.0 cm Interpretation Summary The study was technically difficult. Contrast injection was performed. Left ventricular systolic function is normal. The estimated ejection fraction is 60 %. The left atrium is mildly enlarged. Mild (1+) mitral valve insufficiency. Trivial tricuspid valve insufficiency. Stable appearing bioprosthetic aortic valve apparatus. Trivial pericardial effusion. There are no echocardiographic indications of cardiac tamponade. There is evidence of diastolic dysfunction. Ordering Physician: KARLEY GALEANO Referring Physician: Mike Flores Performed By: Palmer Bolton RCS
== END ==
PROVIDERS: PCP Family Medicine
DX: Z95.2 Presence of prosthetic heart valve (principal); Z95.1 Presence of aortocoronary bypass graft
CPT/HCPCS: 93306; Q9957; A4216; C8929

== ENCOUNTER 2020-11-04 11:16 | Outpatient (RCR) | payer MEDICARE, SELFPAY ==
[2020-09-09 08:26] VITALS: BMI 32.2
[2020-11-04] MEDS: COVID-19 VACC, MRNA(PFIZER)/PF 30 MCG/0.3 ML SYRINGE IM (17:14)
[2020-11-25] MEDS: COVID-19 VACC, MRNA(PFIZER)/PF 30 MCG/0.3 ML SYRINGE IM (17:09)
== END 2021-02-03 23:59 ==
LOC: IMMUN 11:16
PROVIDERS: PCP Family Medicine; Referring Provider Family Medicine; Visit Provider Family Medicine
DX: Z23 Encounter for immunization (principal)
CPT/HCPCS: 0001A; 0002A; 91300

== ENCOUNTER 2021-01-11 18:46 | Emergency (ER) | payer MEDICARE, OTHER, SELFPAY ==
[2020-12-22 11:23] VITALS: BMI 33.5
[2021-01-11 18:47] VITALS: BP 161/89; PULSE 93; RESP 19; TEMP 37; O2SAT 99; BMI 35.9
--- NOTE | 2021-01-11 19:00 | RAD_ITS ---
STUDY: X-RAY CHEST REASON FOR EXAM: Male, 70 years old. Chest pain TECHNIQUE: 1 view COMPARISON: 05/29/2020 FINDINGS: Cardiomediastinal silhouette is unremarkable. Costophrenic angles are sharp. Small linear scars are noted in the left lung base. Lungs are otherwise clear. The trachea is midline. There is no pneumothorax. Sternotomy wires are grossly intact. RAD/Chest 1 View (Portable) IMPRESSION: No acute cardiopulmonary process. Electronically Signed: Bishop Blount MD at 19:36 EDT Tel , Service support ,
--- NOTE | 2021-01-11 19:05 | EKG12_ITS ---
Test Reason : CP Blood Pressure : / mmHG Vent. Rate : 091 BPM Atrial Rate : 091 BPM P-R Int : 138 ms QRS Dur : 066 ms QT Int : 326 ms P-R-T Axes : 059 050 045 degrees QTc Int : 400 ms Normal sinus rhythm Nonspecific ST abnormality Abnormal ECG Confirmed by BABAK RUIZ, HORACE ([id number]), offline editor YASH CHAPPELL ([id number]) on 01/13/2021 9:13:18 AM Referred By: MELINA Confirmed By:HORACE HILLIARD MD
--- NOTE | 2021-01-11 19:09 | ED.VIS.CHEST ---
HPI History of Present Illness Chief Complaint: Chest Pain Informant: patient Onset/Context/Timing Onset: Today Timing: Waxes and wanes Current Severity: Mild Maximum Severity: Moderate Worsened By: Movement of Torso and Palpation Relieved By: - (Tylenol) Associated Symptoms: Negative for Nausea, Vomiting, Diaphoresis and Dyspnea Narrative Narrative: Patient presents with chest pain around the left breast area. He states when he woke this morning he had pain to this area. It is worse with palpation or moving his arm or torso. He took Tylenol and pain seemed to resolve. Pain recurred for 5 hours later he took another dose of Tylenol. This again improved the pain for a while but pain has recurred again. Patient has significant cardiac history having undergone bypass surgery as well as aortic valve replacement in April 2020. Patient states he is otherwise been doing well. He denies any recent change in activity or lifting where he may have strained his chest wall. [facility] Medical History (Updated 01/11/21 @ 22:[address] Peggy Mckenna MD) Abnormal echocardiogram Asthmatic bronchitis with exacerbation Atherosclerotic heart disease of [place] coronary artery without angina pectoris Benign essential hypertension Benign prostatic hypertrophy Dyspnea on exertion Intractable back pain Multi-vessel coronary artery stenosis Nonrheumatic aortic (valve) stenosis Obesity Obstructive sleep apnea syndrome Pain Physical debility Postoperative atrial fibrillation Type II diabetes mellitus Home Medications aspirin 81 mg PO DAILY 11/21/16 [History Last Taken 03/18/20] metformin 1,000 mg PO BIDCM 11/21/16 [History Last Taken 03/17/20] tamsulosin 0.4 mg PO QHS 11/21/16 [History Last Taken 01/01/18] dulaglutide 1.5 mg SQ QWEEK 01/02/18 [History Last Taken 01/02/18] gabapentin 400 mg capsule 400 mg PO TID 02/28/20 [History Last Taken Unknown] hydroxychloroquine 200 mg tablet 200 mg PO DAILY 02/28/20 [History Last Taken Unknown] tramadol 50 mg PO Q6H PRN PRN 05/29/20 [History Last Taken Unknown] multivitamin 1 tab PO DAILY 06/09/20 [History Last Taken Unknown] celecoxib 200 mg capsule 200 mg PO BID 06/27/20 [History Last Taken Unknown] insulin detemir U-100 100 unit/mL (3 mL) subcutaneous pen 15 unit SC QHS ml 06/27/20 [History Last Taken Unknown] atorvastatin 20 mg tablet 20 mg PO QHS 12/22/20 [History Last Taken Unknown] metoprolol tartrate 25 mg tablet 12.5 mg PO BID tablet 12/22/20 [History Last Taken Unknown] oxycodone 5 mg PO Q8H PRN 3 Days #10 tab 01/11/21 [Rx Last Taken Unknown] Allergy/AdvReac Type Severity Reaction Status Date / Time No Known Allergies Allergy Verified 01/11/21 18:50 Family History Father Myocardial infarction, Onset Age: 73 Mother Myocardial infarction, Onset Age: 68 Surgical History History of aortic valve replacement with bioprosthetic valve (~05/08/20) History of coronary artery bypass surgery (~05/08/20) History of knee replacement History of left heart catheterization (03/18/20) History of total knee arthroplasty Social History Smoking Status: Former smoker alcohol intake: never substance use type: does not use caffeine: Yes Type: coffee Number of servings: 3 ROS ROS ED Constitutional Constitutional ED: Denies chills or fever(s) Eyes Eyes: Denies change in vision ENT ENT ED: Denies sore throat Cardiovascular Cardiovascular: Reports chest pain Respiratory/Chest Respiratory/Chest: Denies cough or dyspnea Gastrointestinal Gastrointestinal: Denies abdominal pain, diarrhea, nausea or vomiting Genitourinary Genitourinary ED: Denies dysuria Musculoskeletal Musculoskeletal: Denies back pain Integumentary Denies rash Neurologic Neurologic: Denies headache(s) or weakness Psychiatric Psychiatric: Denies anxiety or depression Endocrine Endocrinology: Denies polydipsia or polyuria Allergic/Immunologic Allergic/Immunologic ED: Denies urticaria EXAM Physical Exam Const Vital Signs: 01/11/21 18:47 01/11/21 18:50 01/11/21 19:52 Temperature 98.6 F Temperature Source Oral Pulse Rate 93 90 Respiratory Rate 19 H 14 Respiratory Effort Normal Non-Labored Blood Pressure 161/89 H 134/66 H Blood Pressure Mean 113 88 Pulse Ox 99 96 Oxygen Delivery Method Room Air Room Air 01/11/21 20:38 01/11/21 21:43 Temperature Temperature Source Pulse Rate 86 80 Respiratory Rate 18 16 Respiratory Effort Blood Pressure 142/61 H Blood Pressure Mean 88 Pulse Ox 97 94 Oxygen Delivery Method Room Air Room Air Positive well nourished and well developed General Appearance ED: well developed HEENT Reports normocephalic and head/scalp atraumatic Eyes PERRL and EOMs intact bilaterally Neck supple Chest Wall inspection of chest normal Chest: tenderness pectoral muscle left Resp normal respiratory effort and clear to auscultation bilaterally Cardio regular rate and regular rhythm GI normal to inspection, nondistended, normoactive bowel sounds Palpation: soft Back/Spine no CVA tenderness Extremity normal to inspection Neuro oriented x3 and no sensory deficits noted Sensorium / Orientation: alert Motor Exam: strength 5/5 throughout Psych mental status grossly normal Skin no rashes or lesions noted Heart Score History: Slightly/Non-Suspicious ECG: Normal Age: >/= 65 years Risk Factors: >/= 3 Risk Factors or History of CAD Troponin: </= Normal Limit Score: 4 MDM MDM MDM Narrative Medical decision making narrative: Patient was given aspirin along with a tab of oxycodone for pain. Lab Data Attestation: I reviewed the patient's lab results. Labs: Laboratory Results - last 24 hr 01/11/21 01/11/21 01/11/21 18:50 18:50 18:50 WBC 8.6 RBC 4.71 Hgb 13.8 Hct 41.2 MCV 87.5 MCH 29.3 MCHC 33.5 RDW Std Deviation 42.3 RDW Coeff of [place] 13.2 Plt Count 195 MPV 9.4 Immature Gran % (Auto) 0.500 Neut % (Auto) 56.4 Lymph % (Auto) 28.1 [place] % (Auto) 11.4 H Eos % (Auto) 2.9 Baso % (Auto) 0.7 Absolute Neuts (auto) 4.9 Absolute Lymphs (auto) 2.42 Nucleated RBC % 0 D-Dimer Quant (PE/DVT) 1.00 H* Sodium 137 Potassium 4.8 Chloride 103 Carbon Dioxide 27.0 Anion Gap 7 BUN 21 H Creatinine 1.11 Estim Creat Clear Calc 54.28 Est GFR (MDRD) Af Amer 84 Est GFR (MDRD) Non-Af 69 BUN/Creatinine Ratio 18.9 Glucose 145 H Calcium 8.7 Troponin I < 0.015 Radiography Chest X-Ray - ED: 1 View, Read by ED Physician and Chronic Changes Diagnostic Testing: Radiology Impression Chest X-Ray 01/11/21 19:00 IMPRESSION: No acute cardiopulmonary process. Electronically Signed: Bishop Blount MD at 19:36 EDT Tel , Service support , Chest CTA 01/11/21 20:25 IMPRESSION: No acute pulmonary emboli to the segmental level. Subtle fat stranding surrounding the second set of sternotomy wires in the proximal sternum. This could represent normal postsurgical changes versus infection in the appropriate clinical setting. No focal fluid collection. Mild pelviectasis in the left kidney. Electronically Signed: Jacek Sawyer MD at 21:39 EDT Tel , Service support , EKG Initial EKG: Attestation: I personally reviewed and interpreted this EKG as follows: Interpretation: Sinus Rhythm (Sinus at 91. No acute ischemia.) Treatment and Re-Evaluation Comments:: Repeat evaluation patient does feel improved. He still has intermittent pain. Pain is completely reproducible with palpation over the chest wall. I do not believe this represents cardiac etiology. CTA does not reveal evidence of a PE. There is some slight inflammatory changes around the second sternal wires but this is not near the site of the patient's current pain. Patient will use topical muscle rub and will be given a short course of oxycodone to use for pain. Discharge Plan Triage Chief Complaint: Chest Pain ED Provider: Peggy Mckenna Dx/Rx/DC Orders Clinical Impression: Chest wall pain Instructions: ED Chest Pain, Noncardiac Prescriptions: New oxycodone 5 mg tablet 5 mg PO Q8H PRN (Reason: pain) 3 Days Qty: 10 RF: 0 No Action hydroxychloroquine 200 mg tablet 200 mg PO DAILY RF: 0 gabapentin 400 mg capsule 400 mg PO TID RF: 0 multivitamin Tablet 1 tab PO DAILY RF: 0 metoprolol tartrate 25 mg tablet 12.5 mg PO BID RF: 0 atorvastatin 20 mg tablet 20 mg PO QHS RF: 0 metformin 500 MG tablet 1,000 mg PO BIDCM RF: 0 tamsulosin 0.4 MG capsule 0.4 mg PO QHS RF: 0 aspirin 81 MG tablet,chewable 81 mg PO DAILY RF: 0 dulaglutide 1.5 MG/0.5 ML pen injector 1.5 mg SQ QWEEK RF: 0 tramadol 50 MG tablet 50 mg PO Q6H PRN PRN (Reason: Pain Or Fever) RF: 0 Levemir FlexTouch U-100 Insuln 100 unit/mL (3 mL) insulin pen 15 unit SC QHS RF: 0 celecoxib [Celebrex] 200 mg capsule 200 mg PO BID RF: 0 Primary Care Provider: Mike Flores Referrals: Mike Flores MD [Primary Care Provider] - Luis No MD [STAFF PHYSICIAN] - 1 Week if not improving Disposition Disposition: Home, self care
[2021-01-11] MEDS: Aspirin 81 MG TAB.CHEW 243 MG PO (19:11)
[2021-01-11 19:18] LABS: Absolute Lymphocyte Count 2.42 X10^3/uL (0.83-4.51); Absolute Neutrophil Count 4.9 X10^3/uL (2.0-7.7); Basophil# 0.06 X10^3/uL; Basophil% 0.7 % (0-1); Eosinophil# 0.25 X10^3/uL; Eosinophils% 2.9 % (0-5); Hematocrit 41.2 % (40-54); Hemoglobin 13.8 g/dL (13.0-16.5); Lymphocyte # 2.42 X10^3/ul (0.83-4.51); Lymphocyte % 28.1 % (19-41); Mean Corp Hgb Conc 33.5 g/dL (32-36); Mean Corpuscular Hgb 29.3 pg (27.0-32.0); Mean Corpuscular Volume 87.5 fL (80-94); Mean Platelet Vol. 9.4 fl (6.2-12.0); Monocyte# 0.98 X10^3/uL; Monocyte% 11.4 % (0-10); NRBC Flagged by Analyzer 0 % (0-5); Neutrophil # 4.85 X10^3/uL (2.7-7.7); Neutrophil % 56.4 % (47-70); Platelet Count 195 K/mm3 (150-450); RBC Distribution Width CV 13.2 % (11.6-14.6); RBC Distribution Width SD 42.3 fl (35.1-43.9); Red Blood Count 4.71 M/mm3 (4.6-6.2); White Blood Count 8.6 K/mm3 (4.4-11.0)
[2021-01-11 19:35] LABS: Anion Gap 7 (5-15); BUN 21 mg/dL (7-18); BUN/Creat Ratio 18.9 RATIO (10-20); Calcium,Total 8.7 mg/dL (8.5-10.1); Chloride 103 mmol/L (98-107); Creatinine, Serum 1.11 mg/dL (0.70-1.30); EST Glomerular Filtration Rate 69 mL/min (>60); Est Glom Filt Rate - Afr Amer 84 mL/min (>60); Estimated Creatinine Clearance 54.28 ml/min; Glucose 145 mg/dL (74-106); Potassium 4.8 mmol/L (3.5-5.1); Sodium Level 137 mmol/L (136-145)
[2021-01-11] MEDS: oxyCODONE 5 MG Tablet PO (19:50)
[2021-01-11 19:52] VITALS: BP 134/66; PULSE 90; RESP 14; O2SAT 95; O2SAT 96
--- NOTE | 2021-01-11 20:25 | CT_ITS ---
INDICATION: cp EXAMINATION: CTA Chest WO/W Contrast Injection TECHNIQUE: Helically acquired images were obtained of the chest following IV contrast. A radiation dose optimization technique was used for this scan. 3-D processing processing images including MIPS were reviewed. IV Contrast dosage and agent: IV 100mL [id number] COMPARISON: 05/29/2020. FINDINGS: Lungs: Scattered subsegmental atelectasis. Mediastinum: The cardiomediastinal silhouette is not enlarged. No mediastinal, hilar or axillary adenopathy. Mild aortic arch and coronary artery calcifications. Aortic valve replacement. No obvious filling defect seen within the visualized pulmonary arteries. Pleura: Unremarkable Bones/Soft tissues: There are diffuse degenerative changes of the spine. Diffuse idiopathic skeletal hyperostosis. Median sternotomy wires are present. There is subtle fat stranding surrounding the second set of sternotomy wires in the proximal sternum. Upper abdomen: Mild pelviectasis in the left kidney. CT/CTA Chest W/WO Contrast IMPRESSION: No acute pulmonary emboli to the segmental level. Subtle fat stranding surrounding the second set of sternotomy wires in the proximal sternum. This could represent normal postsurgical changes versus infection in the appropriate clinical setting. No focal fluid collection. Mild pelviectasis in the left kidney. Electronically Signed: Jacek Sawyer MD at 21:39 EDT Tel , Service support ,
[2021-01-11 20:38] VITALS: BP 142/61; PULSE 86; RESP 18; O2SAT 97
[2021-01-11 21:43] VITALS: PULSE 80; RESP 16; O2SAT 94
[2021-01-11 22:19] VITALS: BP 141/83
== END 2021-01-11 22:20 | disposition home or self-care (01) ==
PROVIDERS: Emergency Provider Emergency Medicine; PCP Family Medicine
DX: R07.89 Other chest pain (principal); I25.10 Atherosclerotic heart disease of native coronary artery without angina pectoris; I35.0 Nonrheumatic aortic (valve) stenosis; I48.91 Unspecified atrial fibrillation; I10 Essential (primary) hypertension; E11.9 Type 2 diabetes mellitus without complications; N40.0 Benign prostatic hyperplasia without lower urinary tract symptoms; E66.9 Obesity, unspecified; Z95.2 Presence of prosthetic heart valve; Z79.82 Long term (current) use of aspirin; Z79.4 Long term (current) use of insulin; Z79.1 Long term (current) use of non-steroidal anti-inflammatories (NSAID); Z79.899 Other long term (current) drug therapy; Z87.891 Personal history of nicotine dependence
CPT/HCPCS: 71045; 71275; 80048; 84484; 85025; 85379; 93005; 99285; Q9967; A4216

== ENCOUNTER → 2021-03-11 14:05 | Outpatient (CLI) | payer MEDICARE, OTHER, SELFPAY ==
[2021-03-11 16:18] LABS: Hematocrit 40.1 % (40-54); Hemoglobin 13.4 g/dL (13.0-16.5); Mean Corp Hgb Conc 33.4 g/dL (32-36); Mean Corpuscular Hgb 29.5 pg (27.0-32.0); Mean Corpuscular Volume 88.3 fL (80-94); Mean Platelet Vol. 9.9 fl (6.2-12.0); Platelet Count 176 K/mm3 (150-450); RBC Distribution Width CV 12.9 % (11.6-14.6); Red Blood Count 4.54 M/mm3 (4.6-6.2); White Blood Count 6.5 K/mm3 (4.4-11.0)
[2021-03-11 16:48] LABS: Anion Gap 7 (5-15); BUN 20 mg/dL (7-18); BUN/Creat Ratio 16.7 RATIO (10-20); Calcium,Total 8.8 mg/dL (8.5-10.1); Chloride 100 mmol/L (98-107); EST Glomerular Filtration Rate 63 mL/min (>60); Est Glom Filt Rate - Afr Amer 76 mL/min (>60); Glucose 147 mg/dL (74-106); Potassium 4.4 mmol/L (3.5-5.1); Sodium Level 132 mmol/L (136-145)
== END ==
PROVIDERS: PCP Family Medicine; Referring Provider Internal Medicine Cardiovascular Disease; Visit Provider Internal Medicine Cardiovascular Disease
DX: R42 Dizziness and giddiness (principal); R55 Syncope and collapse; I25.10 Atherosclerotic heart disease of native coronary artery without angina pectoris
CPT/HCPCS: 36415; 80048; 85027

== ENCOUNTER → 2021-03-19 09:55 | Outpatient (CLI) | payer MEDICARE, OTHER, SELFPAY ==
[2021-03-19 10:49] LABS: Anion Gap 7 (5-15); BUN 16 mg/dL (7-18); BUN/Creat Ratio 15.4 RATIO (10-20); Calcium,Total 8.8 mg/dL (8.5-10.1); Chloride 99 mmol/L (98-107); Creatinine, Serum 1.04 mg/dL (0.70-1.30); EST Glomerular Filtration Rate 75 mL/min (>60); Est Glom Filt Rate - Afr Amer 90 mL/min (>60); Glucose 93 mg/dL (74-106); Potassium 4.5 mmol/L (3.5-5.1); Sodium Level 134 mmol/L (136-145)
== END ==
PROVIDERS: PCP Family Medicine; Visit Provider Internal Medicine Cardiovascular Disease
DX: E87.1 Hypo-osmolality and hyponatremia (principal)
CPT/HCPCS: 36415; 80048

== ENCOUNTER 2021-05-12 13:40 | Emergency (ER) | payer MEDICARE, OTHER, SELFPAY ==
[2021-05-12 13:41] VITALS: BP 123/67; PULSE 94; RESP 16; TEMP 36.4; O2SAT 97; BMI 35.0
--- NOTE | 2021-05-12 14:00 | RAD_ITS ---
STUDY: X-RAY - PELVIS AND LEFT HIP REASON FOR EXAM: Male, 70 years old. FALL TECHNIQUE: 3 views of the pelvis and hip. COMPARISON: None. FINDINGS: There is a non-specific bowel gas pattern. Normal visualized soft tissue structures. Normal bilateral iliac wings, sacroiliac joints and visualized sacrum. Normal bilateral superior and inferior pubic rami. Normal pubic symphysis. Normal bilateral ischial tuberosities. Normal visualized femoral head. Normal acetabulum. Normal hip joint. Degenerative changes of the lower lumbar spine. RAD/HIP, UNI W/ Pelvis 2-3 Views IMPRESSION: Degenerative changes of the lower lumbar spine. No acute fracture or dislocation. Electronically Signed: Claude Hare MD at 14:21 EDT , Service support ,
--- NOTE | 2021-05-12 15:22 | ED.VIS.LOWEX ---
HPI History of Present Illness HPI Narrative: Patient presents with left hip pain that began after a fall 3 days ago. Patient states he was pushing an oven down a hill onto a truck bed when the oven started to slide and caused him to fall over the oven. Patient states he landed on his right side but has been complaining of pain in his left hip. Patient states his pain is worse with any weightbearing. Patient denies any head injury or loss of consciousness. Patient describes his pain as sharp and stabbing. Patient denies any other injuries. Chief Complaint: Lower Extremity Injury Informant: patient Occured/Mechanism Mechanism/Context: Yes fall Onset/Context/Timing Onset: Days (3) Context: Sudden Onset Timing: Continuous Quality of Pain: Stabbing Location: Left hip Worsened by: Weightbearing Relieved by: Rest Associated Symptoms Associated Symptoms: Negative for Parasthesia and Weakness [facility] Medical History Abnormal echocardiogram Asthmatic bronchitis with exacerbation Atherosclerotic heart disease of [place] coronary artery without angina pectoris Benign essential hypertension Benign prostatic hypertrophy Dyspnea on exertion Intractable back pain Multi-vessel coronary artery stenosis Nonrheumatic aortic (valve) stenosis Obesity Obstructive sleep apnea syndrome Pain Physical debility Postoperative atrial fibrillation Type II diabetes mellitus Home Medications aspirin 81 mg PO DAILY 11/21/16 [History Last Taken 03/18/20] metformin 1,000 mg PO BIDCM 11/21/16 [History Last Taken 03/17/20] tamsulosin 0.4 mg PO QHS 11/21/16 [History Last Taken 01/01/18] dulaglutide 1.5 mg SQ QWEEK 01/02/18 [History Last Taken 01/02/18] gabapentin 400 mg capsule 400 mg PO TID 02/28/20 [History Last Taken Unknown] hydroxychloroquine 200 mg tablet 200 mg PO DAILY 02/28/20 [History Last Taken Unknown] tramadol 50 mg PO Q6H PRN PRN 05/29/20 [History Last Taken Unknown] multivitamin 1 tab PO DAILY 06/09/20 [History Last Taken Unknown] celecoxib 200 mg capsule 200 mg PO BID 06/27/20 [History Last Taken Unknown] insulin detemir U-100 100 unit/mL (3 mL) subcutaneous pen 15 unit SC QHS ml 06/27/20 [History Last Taken Unknown] atorvastatin 20 mg tablet 20 mg PO QHS 12/22/20 [History Last Taken Unknown] metoprolol tartrate 25 mg tablet 12.5 mg PO BID tablet 12/22/20 [History Last Taken Unknown] oxycodone 5 mg PO Q8H PRN 3 Days #10 tab 01/11/21 [Rx Last Taken Unknown] hydrocodone-acetaminophen 1 tab PO Q6H PRN PRN 3 Days #10 tablet 05/12/21 [Rx Last Taken Unknown] Allergy/AdvReac Type Severity Reaction Status Date / Time No Known Allergies Allergy Verified 05/12/21 13:43 Family History Father Myocardial infarction, Onset Age: 73 Mother Myocardial infarction, Onset Age: 68 Surgical History History of aortic valve replacement with bioprosthetic valve (~05/08/20) History of coronary artery bypass surgery (~05/08/20) History of knee replacement History of left heart catheterization (03/18/20) History of total knee arthroplasty Social History Smoking Status: Former smoker alcohol intake: never substance use type: does not use caffeine: Yes Type: coffee Number of servings: 3 ROS ROS ED Constitutional Constitutional ED: Denies chills or fever(s) Eyes Eyes: Denies blurry vision or change in vision ENT ENT ED: Denies rhinorrhea or sore throat Cardiovascular Cardiovascular: Denies chest pain or palpitations Respiratory/Chest Respiratory/Chest: Denies cough or dyspnea Gastrointestinal Gastrointestinal: Denies nausea or vomiting Genitourinary Genitourinary ED: Denies dysuria or hematuria Musculoskeletal Musculoskeletal: Denies back pain or neck pain Integumentary Denies abscess or rash Neurologic Neurologic: Denies headache(s) or weakness Allergic/Immunologic Allergic/Immunologic ED: Denies mouth swelling or urticaria EXAM Physical Exam Const Vital Signs: 05/12/21 13:41 Temperature 97.6 F L Temperature Source Temporal Pulse Rate 94 Respiratory Rate 16 Blood Pressure 123/67 H Blood Pressure Mean 85 Pulse Ox 97 Oxygen Delivery Method Room Air Positive well nourished, well developed and obese General Appearance ED: well developed Nutritional Appearance: obese HEENT Reports moist mucous membranes Neck full ROM Extremity Extremity Narrative: There is tenderness over the left hip area. There is no bony crepitance or step-off. There is no pain with internal and external rotation. There is pain with flexion and extension of the hip. There is no deformity. Pedal pulses are equal bilaterally. Sensation was intact to light touch bilaterally in the lower extremities. Neuro oriented x3, CN's II-XII intact bilaterally and no sensory deficits noted Sensorium / Orientation: alert Motor Exam: strength 5/5 throughout Psych mental status grossly normal MDM MDM MDM Narrative Medical decision making narrative: X-rays of the left hip were obtained. There are 4 views. On my interpretation, there is no acute fracture. There is no dislocation. There is no soft tissue swelling. Radiologist also interpreted the x-rays and agrees. Patient was advised of his findings. Patient was instructed to use ice to the area. Patient was given a prescription for [place]. Patient was instructed to follow-up with his primary care physician in 5 to 7 days. Patient understood and was agreeable with the plan. All questions were answered. Radiography X-Ray: Left Hip, Read by ED Physician, Read by Radiologist and No Fracture Diagnostic Testing: Radiology Impression Hip/Pelvis X-Ray 05/12/21 14:00 IMPRESSION: Degenerative changes of the lower lumbar spine. No acute fracture or dislocation. Electronically Signed: Claude Hare MD at 14:21 EDT , Service support , Discharge Plan Triage Chief Complaint: Lower Extremity Injury ED Provider: Jean Claude Lazar Dx/Rx/DC Orders Clinical Impression: Strain of muscle, fascia and tendon of left hip, initial encounter Instructions: ED Hip Strain Prescriptions: New hydrocodone-acetaminophen [hydrocodone-acetaminophen] 1 TABLET tablet 1 tab PO Q6H PRN PRN (Reason: Pain) 3 Days Qty: 10 RF: 0 No Action hydroxychloroquine 200 mg tablet 200 mg PO DAILY RF: 0 gabapentin 400 mg capsule 400 mg PO TID RF: 0 multivitamin Tablet 1 tab PO DAILY RF: 0 metoprolol tartrate 25 mg tablet 12.5 mg PO BID RF: 0 atorvastatin 20 mg tablet 20 mg PO QHS RF: 0 metformin 500 MG tablet 1,000 mg PO BIDCM RF: 0 tamsulosin 0.4 MG capsule 0.4 mg PO QHS RF: 0 aspirin 81 MG tablet,chewable 81 mg PO DAILY RF: 0 dulaglutide 1.5 MG/0.5 ML pen injector 1.5 mg SQ QWEEK RF: 0 tramadol 50 MG tablet 50 mg PO Q6H PRN PRN (Reason: Pain Or Fever) RF: 0 oxycodone 5 mg tablet 5 mg PO Q8H PRN (Reason: pain) 3 Days Qty: 10 RF: 0 Levemir FlexTouch U-100 Insuln 100 unit/mL (3 mL) insulin pen 15 unit SC QHS RF: 0 celecoxib [Celebrex] 200 mg capsule 200 mg PO BID RF: 0 Primary Care Provider: Mike Flores Referrals: Mike Flores MD [Primary Care Provider] - 5-7 Days Disposition Disposition: Home, Self Care Discharge Date/Time: 05/12/21 15:42
== END 2021-05-12 15:42 | disposition home or self-care (01) ==
PROVIDERS: Emergency Provider Emergency Medicine; PCP Family Medicine
DX: S76.012A Strain of muscle, fascia and tendon of left hip, initial encounter (principal); W17.81XA Fall down embankment (hill), initial encounter; Y93.89 Activity, other specified; Y92.828 Other wilderness area as the place of occurrence of the external cause; Y99.8 Other external cause status; I25.10 Atherosclerotic heart disease of native coronary artery without angina pectoris; I10 Essential (primary) hypertension; E11.9 Type 2 diabetes mellitus without complications; E66.9 Obesity, unspecified; Z68.35 Body mass index [BMI] 35.0-35.9, adult; Z79.82 Long term (current) use of aspirin; Z79.4 Long term (current) use of insulin; Z79.899 Other long term (current) drug therapy; Z87.891 Personal history of nicotine dependence
CPT/HCPCS: 73502; 99282

== ENCOUNTER 2021-06-17 10:41 | Emergency (ER) | payer MEDICARE, OTHER, SELFPAY ==
[2021-06-17 10:42] VITALS: BP 165/66; PULSE 89; RESP 20; TEMP 36.7; O2SAT 97; BMI 35.3
--- NOTE | 2021-06-17 10:51 | EKG12_ITS ---
Test Reason : CHEST PAIN Blood Pressure : / mmHG Vent. Rate : 092 BPM Atrial Rate : 092 BPM P-R Int : 152 ms QRS Dur : 078 ms QT Int : 350 ms P-R-T Axes : 061 037 062 degrees QTc Int : 432 ms Normal sinus rhythm Normal ECG Confirmed by MARTHA RUIZ, SARAH ([id number]), news video editor YASH CHAPPELL ([id number]) on 06/18/2021 1:49:04 P M Referred By: PC Confirmed By:BEATRIZ THOMAS MD
--- NOTE | 2021-06-17 10:51 | ED.VIS.CHEST ---
HPI History of Present Illness Chief Complaint: Chest Pain Detail of Chief Complaint: Right-sided chest pain x6 to 7 days Informant: patient Narrative Narrative: Presents with pain in his right chest that started 6 or 7 days ago. He denies trauma. He denies shortness of breath. He denies hemoptysis. He has had no fever or recent illness. Pain worse with certain movements especially with both arms moving together as a to give a hug or turn a bottle. Patient states his was concerned about him given his history of aortic valve replacement 1 year ago. He denies recent travel or surgery. He is not anticoagulated. He denies Covid symptoms. Patient has been fully vaccinated against Covid. Prior Similar Symptoms: No PFSH [facility] Medical History (Updated 06/17/21 @ 12:[address] Alan Correia, ) Abnormal echocardiogram Asthmatic bronchitis with exacerbation Atherosclerotic heart disease of [place] coronary artery without angina pectoris Benign essential hypertension Benign prostatic hypertrophy Dyspnea on exertion HLD (hyperlipidemia) Intractable back pain Multi-vessel coronary artery stenosis Nonrheumatic aortic (valve) stenosis Obesity Obstructive sleep apnea syndrome Pain Physical debility Postoperative atrial fibrillation Type II diabetes mellitus Home Medications aspirin 81 mg PO DAILY 11/21/16 [History Last Taken 03/18/20] metformin 1,000 mg PO BIDCM 11/21/16 [History Last Taken 03/17/20] tamsulosin 0.4 mg PO QHS 11/21/16 [History Last Taken 01/01/18] dulaglutide 1.5 mg SQ QWEEK 01/02/18 [History Last Taken 01/02/18] gabapentin 400 mg capsule 400 mg PO TID 02/28/20 [History Last Taken Unknown] hydroxychloroquine 200 mg tablet 200 mg PO DAILY 02/28/20 [History Last Taken Unknown] tramadol 50 mg PO Q6H PRN PRN 05/29/20 [History Last Taken Unknown] multivitamin 1 tab PO DAILY 06/09/20 [History Last Taken Unknown] celecoxib 200 mg capsule 200 mg PO BID 06/27/20 [History Last Taken Unknown] insulin detemir U-100 100 unit/mL (3 mL) subcutaneous pen 15 unit SC QHS ml 06/27/20 [History Last Taken Unknown] atorvastatin 20 mg tablet 20 mg PO QHS 12/22/20 [History Last Taken Unknown] metoprolol tartrate 25 mg tablet 12.5 mg PO BID tablet 12/22/20 [History Last Taken Unknown] Allergy/AdvReac Type Severity Reaction Status Date / Time No Known Allergies Allergy Verified 06/17/21 10:46 Family History Father Myocardial infarction, Onset Age: 73 Mother Myocardial infarction, Onset Age: 68 Surgical History History of aortic valve replacement with bioprosthetic valve (~05/08/20) History of coronary artery bypass surgery (~05/08/20) History of knee replacement History of left heart catheterization (03/18/20) History of total knee arthroplasty Social History Smoking Status: Former smoker alcohol intake: never substance use type: does not use caffeine: Yes Type: coffee Number of servings: 3 ROS ROS ED Review of Systems ROS Unobtainable: other Constitutional Constitutional ED: Reports lethargy; Denies chills, fever(s), sweats or weight loss Eyes Eyes: Denies blurry vision, change in vision or diplopia ENT ENT ED: Denies rhinorrhea or sore throat Cardiovascular Cardiovascular: Reports chest pain and racing heartbeat; Denies orthopnea Respiratory/Chest Respiratory/Chest: Reports dyspnea and dyspnea on exertion; Denies cough, orthopnea or sputum Gastrointestinal Gastrointestinal: Denies abdominal pain, diarrhea, nausea or vomiting Genitourinary Genitourinary ED: Denies dysuria, hematuria or urinary frequency Musculoskeletal Musculoskeletal: Denies arthralgias, back pain, myalgias or neck pain Integumentary Denies abscess, Abrasions or rash Neurologic Neurologic: Denies headache(s) or weakness Psychiatric Psychiatric: Denies anxiety, depression or suicidal thoughts Endocrine Endocrinology: Denies polydipsia, polyphagia or polyuria Hematologic/Lymphatic Hematologic/Lymphatic: Denies easy bleeding, easy bruising or lymphadenopathy Allergic/Immunologic Allergic/Immunologic ED: Denies mouth swelling, tongue swelling or urticaria EXAM Physical Exam Const Vital Signs: 06/17/21 10:42 06/17/21 10:48 06/17/21 10:54 Temperature 98.0 F Temperature Source Oral Pulse Rate 89 Respiratory Rate 20 H Respiratory Effort Normal Non-Labored Respiratory Pattern Normal Blood Pressure 165/66 H Blood Pressure Mean 99 Pulse Ox 97 98 Oxygen Delivery Method Room Air Room Air 06/17/21 12:04 Temperature Temperature Source Pulse Rate 85 Respiratory Rate 21 H Respiratory Effort Respiratory Pattern Blood Pressure 125/67 H Blood Pressure Mean 86 Pulse Ox 97 Oxygen Delivery Method Room Air Positive well nourished and well developed General Appearance ED: well developed and NAD HEENT Reports TM's clear and moist mucous membranes normocephalic and atraumatic; Negative for trauma or tenderness Tympanic Membrane ED: Yes TM's clear Eyes PERRL and EOMs intact bilaterally General Eye ED: Negative for pale conjunctiva or scleral icterus Neck no lymphadenopathy, supple and no JVD General: Negative for tenderness Chest Wall palpation of chest normal Chest Narrative: Patient does have tenderness palpation over the right anterior chest wall between the ribs and close to the costal sternal junction that seems to somewhat reproduce his pain. Chest: Negative for tenderness Resp normal respiratory effort and clear to auscultation bilaterally Effort and Inspection: Negative for respiratory distress or pain with movement Auscultation: Negative for rhonchi, wheezes or diminished lung sounds Cardio regular rate, regular rhythm, S1 normal heart sound, S2 normal heart sound and no murmurs Peripheral Pulses: pulses 2+ throughout GI normal to inspection, nondistended, normoactive bowel sounds, soft to palpation, non-tender, non-distended and no masses Back/Spine no CVA tenderness and no thoracic nor lumbar tenderness Extremity normal to inspection General Extremety ED: Negative for edema General Extremity: Negative for edema Neuro oriented x3, CN's II-XII intact bilaterally, no sensory deficits noted and gait normal Sensorium / Orientation: awake, alert, oriented to person, oriented to place and oriented to time Motor Exam: strength 5/5 throughout and strength abnormal Psych mental status grossly normal Skin no rashes or lesions noted and no wounds MDM MDM MDM Narrative Medical decision making narrative: Patient's work-up in department unremarkable. His chest pain is reproducible and worse with certain movements therefore I suspect musculoskeletal etiology for his pain. Patient wanted to know what more he could do for his pain as Tylenol not helping very much. I told him we could write him for some Vicodin or Percocet which she does not want to do. Patient would be willing to try ibuprofen intermittently for the next several days. Patient advised to follow-up with his primary care physician within next 5 to 7 days. I do not feel his pain is cardiac in nature. Lab Data Attestation: I reviewed the patient's lab results. Labs: Laboratory Results - last 24 hr 06/17/21 06/17/21 06/17/21 10:50 10:50 10:50 WBC 5.9 RBC 4.61 Hgb 14.1 Hct 40.8 MCV 88.5 MCH 30.6 MCHC 34.6 RDW Std Deviation 40.8 RDW Coeff of Liang 12.6 Plt Count 174 MPV 9.4 Immature Gran % (Auto) 0.500 Neut % (Auto) 54.8 Lymph % (Auto) 30.0 Eddy % (Auto) 11.0 H Eos % (Auto) 3.0 Baso % (Auto) 0.7 Absolute Neuts (auto) 3.3 Absolute Lymphs (auto) 1.78 Nucleated RBC % 0 D-Dimer Quant (PE/DVT) 1.08 H* Sodium 136 Potassium 4.5 Chloride 100 Carbon Dioxide 27.0 Anion Gap 9 BUN 14 Creatinine 1.12 Estim Creat Clear Calc 55.74 Est GFR (MDRD) Af Amer 83 Est GFR (MDRD) Non-Af 68 BUN/Creatinine Ratio 12.5 Glucose 130 H Calcium 9.1 Troponin I High Sens 6 Radiography Chest X-Ray - ED: 1 View Diagnostic Testing: Clinical Impression(s) from Imaging Studies Chest X-Ray 06/17/21 10:55 IMPRESSION: Prior CABG. No acute abnormality is seen. Electronically Signed: Claude Hare MD at 11:20 EDT , Service support , Chest CTA 06/17/21 11:23 IMPRESSION: No evidence of pulmonary embolism. Electronically Signed: Claude Hare MD at 11:56 EDT , Service support , 1 view chest x-ray obtained interpreted by myself as no acute disease process. Radiology in agreement. EKG Initial EKG: Attestation: I personally reviewed and interpreted this EKG as follows: Comments: Sinus rhythm with a ventricular rate of 92 bpm with no acute ST segment changes. Discharge Plan Triage Chief Complaint: Chest Pain ED Provider: Alan Correia Dx/Rx/DC Orders Clinical Impression: Chest wall pain Instructions: ED Chest Pain, Uncertain Cause, ED Chest Wall Pain, Costochondritis Prescriptions: No Action hydroxychloroquine 200 mg tablet 200 mg PO DAILY RF: 0 gabapentin 400 mg capsule 400 mg PO TID RF: 0 multivitamin Tablet 1 tab PO DAILY RF: 0 metoprolol tartrate 25 mg tablet 12.5 mg PO BID RF: 0 atorvastatin 20 mg tablet 20 mg PO QHS RF: 0 metformin 500 MG tablet 1,000 mg PO BIDCM RF: 0 tamsulosin 0.4 MG capsule 0.4 mg PO QHS RF: 0 aspirin 81 MG tablet,chewable 81 mg PO DAILY RF: 0 dulaglutide 1.5 MG/0.5 ML pen injector 1.5 mg SQ QWEEK RF: 0 tramadol 50 MG tablet 50 mg PO Q6H PRN PRN (Reason: Pain Or Fever) RF: 0 Levemir FlexTouch U-100 Insuln 100 unit/mL (3 mL) insulin pen 15 unit SC QHS RF: 0 celecoxib [Celebrex] 200 mg capsule 200 mg PO BID RF: 0 Primary Care Provider: Mike Flores Referrals: Mike Flores MD [Primary Care Provider] - 5-7 Days Disposition Disposition: Home, Self Care
[2021-06-17 10:54] VITALS: O2SAT 98
--- NOTE | 2021-06-17 10:55 | RAD_ITS ---
STUDY: X-RAY CHEST REASON FOR EXAM: Male, 70 years old. Chest pain TECHNIQUE: Single AP portable view of the chest. COMPARISON: Comparison is made with prior study of 01/11/2021. FINDINGS: EKG electrodes are seen. The lungs are clear and expanded. There is no demonstrated pleural abnormality. Sternal cerclage wires are present from a prior sternotomy. Normal mediastinum and yael. Normal visualized pulmonary arteries. Normal visualized aortic arch and descending thoracic aorta. There are diffuse degenerative changes of the visualized thoracic spine. Normal visualized ribs, clavicles, and shoulders. There is no demonstrated abnormality of the visualized soft tissue structures of the upper abdomen. RAD/Chest 1 View (Portable) IMPRESSION: Prior CABG. No acute abnormality is seen. Electronically Signed: Claude Hare MD at 11:20 EDT , Service support ,
[2021-06-17 11:08] LABS: Absolute Lymphocyte Count 1.78 X10^3/uL (0.83-4.51); Absolute Neutrophil Count 3.3 X10^3/uL (2.0-7.7); Basophil# 0.04 X10^3/uL; Basophil% 0.7 % (0-1); Eosinophil# 0.18 X10^3/uL; Hematocrit 40.8 % (40-54); Hemoglobin 14.1 g/dL (13.0-16.5); Lymphocyte # 1.78 X10^3/ul (0.83-4.51); Mean Corp Hgb Conc 34.6 g/dL (32-36); Mean Corpuscular Hgb 30.6 pg (27.0-32.0); Mean Corpuscular Volume 88.5 fL (80-94); Mean Platelet Vol. 9.4 fl (6.2-12.0); Monocyte# 0.65 X10^3/uL; NRBC Flagged by Analyzer 0 % (0-5); Neutrophil # 3.25 X10^3/uL (2.7-7.7); Neutrophil % 54.8 % (47-70); Platelet Count 174 K/mm3 (150-450); RBC Distribution Width CV 12.6 % (11.6-14.6); RBC Distribution Width SD 40.8 fl (35.1-43.9); Red Blood Count 4.61 M/mm3 (4.6-6.2); White Blood Count 5.9 K/mm3 (4.4-11.0)
[2021-06-17 11:21] LABS: D-Dimer Quantitative (DVT/PE) 1.08 FEU/ug/m (0.27-0.49)
--- NOTE | 2021-06-17 11:23 | CT_ITS ---
STUDY: CTA CHEST REASON FOR EXAM: Male, 70 years old. Elevated d-dimer, chest pain RADIATION DOSAGE (If Supplied By Facility): CTDIvol = ( 14.75 ) mGy, DLP = ( 510.51 ) mGycm TECHNIQUE: The examination was performed with the intravenous administration of IV 100mL Isovue-370. Post-processing of the angiographic images was performed, with multiplanar reformation and 3D reconstruction. Individualized dose optimization techniques were used for this CT. COMPARISON: Comparison is made with prior study dated 01/11/2021. FINDINGS: Normal enhancement of the main pulmonary artery and right and left pulmonary arteries. Normal enhancement of the bilateral peripheral pulmonary arteries. There is no demonstrated pulmonary embolism. There is atherosclerotic calcification of the aortic arch with tortuosity. There is no demonstrated aortic dissection. Sternal cerclage wires are present from a prior sternotomy. The patient is status post aortic valve replacement. There are visualized mediastinal lymph nodes, which are within normal size limits, and with normal morphology. Normal hilar regions. Normal visualized trachea and bronchi. The lungs are well expanded. Normal pulmonary parenchyma. Normal pleura. Normal chest wall structures. There are degenerative changes of thoracic spine. There is a 2.5 cm x 3.3 cm cyst in the upper medial portion of the left kidney. CT/CTA Chest W/WO Contrast IMPRESSION: No evidence of pulmonary embolism. Electronically Signed: Claude Hare MD at 11:56 EDT , Service support ,
[2021-06-17 11:25] LABS: Anion Gap 9 (5-15); BUN 14 mg/dL (7-18); BUN/Creat Ratio 12.5 RATIO (10-20); Calcium,Total 9.1 mg/dL (8.5-10.1); Chloride 100 mmol/L (98-107); Creatinine, Serum 1.12 mg/dL (0.70-1.30); EST Glomerular Filtration Rate 68 mL/min (>60); Est Glom Filt Rate - Afr Amer 83 mL/min (>60); Estimated Creatinine Clearance 55.74 ml/min; Glucose 130 mg/dL (74-106); Potassium 4.5 mmol/L (3.5-5.1); Sodium Level 136 mmol/L (136-145); Troponin-I HS 6 pg/mL (3.0-78.0)
[2021-06-17 12:04] VITALS: BP 125/67; PULSE 85; RESP 21; O2SAT 97
== END 2021-06-17 12:23 | disposition home or self-care (01) ==
PROVIDERS: Emergency Provider Emergency Medicine; PCP Family Medicine
DX: R78.9 Finding of unspecified substance, not normally found in blood (principal); I25.10 Atherosclerotic heart disease of native coronary artery without angina pectoris; I10 Essential (primary) hypertension; I35.0 Nonrheumatic aortic (valve) stenosis; E11.9 Type 2 diabetes mellitus without complications; E66.9 Obesity, unspecified; N40.0 Benign prostatic hyperplasia without lower urinary tract symptoms; Z68.35 Body mass index [BMI] 35.0-35.9, adult; Z95.2 Presence of prosthetic heart valve; Z95.1 Presence of aortocoronary bypass graft; Z79.82 Long term (current) use of aspirin; Z79.4 Long term (current) use of insulin; Z79.84 Long term (current) use of oral hypoglycemic drugs; Z79.899 Other long term (current) drug therapy; Z87.891 Personal history of nicotine dependence
CPT/HCPCS: 71045; 71275; 80048; 84484; 85025; 85379; 93005; 99284; Q9967; A4216

== ENCOUNTER 2022-03-16 09:09 | Emergency (ER) | payer MEDICARE, OTHER, SELFPAY ==
[2022-03-16 09:10] VITALS: BP 196/68; PULSE 89; RESP 20; TEMP 36.6; O2SAT 98; BMI 33.3
--- NOTE | 2022-03-16 09:42 | RAD_ITS ---
STUDY: X-RAY CHEST REASON FOR EXAM: Male, 71 years old. Chest pain TECHNIQUE: Single AP portable view of the chest. COMPARISON: Comparison is made with prior study 06/17/2021. FINDINGS: EKG electrodes are seen. Stable mild scarring at the lung bases. There is no demonstrated pleural abnormality. Sternal cerclage wires and vascular clips are present from a prior sternotomy and coronary artery bypass graft procedure (CABG). Normal mediastinum and yael. Normal visualized pulmonary arteries. There is atherosclerotic calcification of the aortic arch with tortuosity. There are diffuse degenerative changes of the visualized thoracic spine. Normal visualized ribs, clavicles, and shoulders. There is no demonstrated abnormality of the visualized soft tissue structures of the upper abdomen. RAD/Chest 1 View (Portable) IMPRESSION: No acute abnormality is seen. Electronically Signed: Claude Hare MD at 10:15 EDT ,
--- NOTE | 2022-03-16 09:42 | EKG12_ITS ---
Test Reason : CP Blood Pressure : / mmHG Vent. Rate : 083 BPM Atrial Rate : 083 BPM P-R Int : 136 ms QRS Dur : 076 ms QT Int : 346 ms P-R-T Axes : 056 023 038 degrees QTc Int : 406 ms Normal sinus rhythm Normal ECG Confirmed by JOCELINE RUIZ, KAOVN ([id number]), book or script editor STEVIE GTZ ([id number]) on 03/19/2022 7:55:41 AM Referred By: Rajeev Confirmed By:KAVON CAR MD
--- NOTE | 2022-03-16 09:43 | ED.VIS.CHEST ---
HPI History of Present Illness Chief Complaint: Chest Other Informant: patient Narrative Narrative: Patient is a 71-year-old male with history of aortic valve replacement with bioprosthetic valve and CABG, hypertension, BPH, diabetes mellitus and chronic back pain who recently had an internal spinal stimulator placed about 3 months ago presenting with chest pain. Patient states been going on for the 2 days and it is in the middle of his chest and the lower part of his sternotomy incision. It is worse with any type of movement. Patient notes that the day before it started he was using home snake drain and cranking it for a clogged drain. He is taking his tramadol and Tylenol with no relief of his symptoms. Denies any shortness of breath or difficulty breathing except when the pain is bad. Denies any GI or symptoms. No leg swelling. No cough. No fever or chills. No other complaints at this time. Prior Similar Symptoms: Yes PFSH PFSH Medical History Abnormal echocardiogram Asthmatic bronchitis with exacerbation Atherosclerotic heart disease of [place] coronary artery without angina pectoris Benign essential hypertension Benign prostatic hypertrophy Dyspnea on exertion HLD (hyperlipidemia) Intractable back pain Multi-vessel coronary artery stenosis Nonrheumatic aortic (valve) stenosis Obesity Obstructive sleep apnea syndrome Pain Physical debility Postoperative atrial fibrillation Type II diabetes mellitus Home Medications aspirin 81 mg chewable tablet 81 mg PO DAILY heart health 11/21/16 [History Last Taken 03/18/20] metformin 500 mg tablet 1,000 mg PO BIDCM diabetes 11/21/16 [History Last Taken 03/17/20] tamsulosin 0.4 mg capsule 0.4 mg PO QHS BPH 11/21/16 [History Last Taken 01/01/18] dulaglutide 1.5 mg/0.5 mL subcutaneous pen injector 1.5 mg SQ QWEEK diabetes 01/02/18 [History Last Taken 01/02/18] gabapentin 400 mg capsule 400 mg PO TID 02/28/20 [History Last Taken Unknown] hydroxychloroquine 200 mg tablet 200 mg PO DAILY 02/28/20 [History Last Taken Unknown] tramadol 50 mg tablet 50 mg PO Q6H PRN PRN Pain Or Fever 05/29/20 [History Last Taken Unknown] multivitamin 1 tab PO DAILY 06/09/20 [History Last Taken Unknown] celecoxib 200 mg capsule (Celebrex) 200 mg PO BID 06/27/20 [History Last Taken Unknown] insulin detemir U-100 100 unit/mL (3 mL) subcutaneous pen (Levemir FlexTouch U-100 Insulin) 15 unit subcut QHS 06/27/20 [History Last Taken Unknown] atorvastatin 20 mg tablet 20 mg PO QHS 12/22/20 [History Last Taken Unknown] metoprolol tartrate 25 mg tablet 12.5 mg PO BID 12/22/20 [History Last Taken Unknown] lidocaine 4 % topical patch 1 patch topical Q12H PRN pain #10 ea 03/16/22 [Rx Last Taken Unknown] Allergy/AdvReac Type Severity Reaction Status Date / Time No Known Allergies Allergy Verified 11/23/21 13:53 Family History Father Myocardial infarction, Onset Age: 73 Mother Myocardial infarction, Onset Age: 68 Surgical History History of aortic valve replacement with bioprosthetic valve (~05/08/20) History of coronary artery bypass surgery (~05/08/20) History of knee replacement History of left heart catheterization (03/18/20) History of total knee arthroplasty Social History Smoking Status: Former smoker alcohol intake: never substance use type: does not use caffeine: Yes Type: coffee Number of servings: 3 ROS ROS ED Constitutional Constitutional ED: Denies chills or fever(s) Eyes Eyes: Denies change in vision ENT ENT ED: Denies rhinorrhea or sore throat Cardiovascular Cardiovascular: Reports as per HPI and chest pain; Denies palpitations Respiratory/Chest Respiratory/Chest: Denies cough or dyspnea Gastrointestinal Gastrointestinal: Denies abdominal pain, nausea or vomiting Genitourinary Genitourinary ED: Denies dysuria or hematuria Musculoskeletal Musculoskeletal: Denies arthralgias or myalgias Integumentary Denies Abrasions or rash Neurologic Neurologic: Denies headache(s) or weakness Psychiatric Psychiatric: Denies anxiety Hematologic/Lymphatic Hematologic/Lymphatic: Denies easy bleeding or easy bruising EXAM Physical Exam Const Vital Signs: 03/16/22 09:10 03/16/22 09:28 03/16/22 09:51 Temperature 97.9 F Temperature Source Temporal Pulse Rate 89 Respiratory Rate 20 H Respiratory Effort Normal Non-Labored Blood Pressure 196/68 H Blood Pressure Mean 110 Pulse Ox 98 Oxygen Delivery Method Room Air Room Air 03/16/22 10:00 03/16/22 11:00 Temperature Temperature Source Pulse Rate 76 69 Respiratory Rate 12 21 H Respiratory Effort Blood Pressure 132/63 H 136/60 H Blood Pressure Mean 86 85 Pulse Ox 94 96 Oxygen Delivery Method Room Air Room Air Positive well nourished and well developed General Appearance ED: well developed and NAD HEENT Reports moist mucous membranes normocephalic and atraumatic Eyes PERRL and EOMs intact bilaterally Neck supple and no JVD Chest Wall inspection of chest normal Chest Narrative: Midline sternotomy scar. No overlying erythema or swelling. Significant tenderness palpation of the distal aspect most pronounced over the area of the xiphoid process Resp normal respiratory effort and clear to auscultation bilaterally Cardio regular rate, regular rhythm and no murmurs Peripheral Pulses: dorsalis pedis pulses present bilateral 2+ GI normal to inspection, nondistended, normoactive bowel sounds, soft to palpation and non-tender Back/Spine no CVA tenderness Extremity normal to inspection Neuro oriented x3 and no sensory deficits noted Motor Exam: Negative for general weakness Psych mental status grossly normal Skin no rashes or lesions noted and no wounds Heart Score History: Slightly/Non-Suspicious ECG: Normal Age: >/= 65 years Risk Factors: >/= 3 Risk Factors or History of CAD Troponin: </= Normal Limit Score: 4 MDM MDM MDM Narrative Medical decision making narrative: Patient evaluated for 2 days of constant chest pain. Is worse with any type of movement. Does not have any associated shortness of breath. It started after he spent 45 minutes on the floor using a snake for a clogged pipe. Pain is highly reproducible of the lower aspect of the sternum. Patient is given IV Toradol and Lidoderm patch in the emergency room as he did drive here. On repeat evaluation is improvement of his symptoms. Admission patient is hypertensive but this resolves with pain control. Has since he troponin is 6. BMP is normal. D-dimer is 0.76. Age-adjusted dimer for him is 0.73. This is actually the lowest D-dimer patient had an 2 years needs had 2 prior negative CTAs. Given that he has highly reproducible chest pain and a low dimer from his baseline I do not suspect a PE. I did clinical counselor patient on my decision-making process about not CTA in him again and he is agreeable with this. On repeat evaluation patient has significant improvement of his discomfort. Will be discharged home with instructions to use Lidoderm patches and a short course [id number] anti-inflammatories. Given that he is no longer anticoagulated I think a short course would be safe. Given his pain has been constant for the past 2 days I feel that a single high-sensitivity troponin of 6 rules out ACS. Patient courage to follow-up with primary care doctor. Lab Data Attestation: I reviewed the patient's lab results. Labs: Laboratory Results - last 24 hr 03/16/22 03/16/22 03/16/22 09:20 09:20 09:20 WBC 7.3 RBC 4.63 Hgb 14.0 Hct 40.7 MCV 87.9 MCH 30.2 MCHC 34.4 RDW Std Deviation 42.3 RDW Coeff of Liang 13.1 Plt Count 187 MPV 9.5 Immature Gran % (Auto) 0.400 Neut % (Auto) 52.3 Lymph % (Auto) 30.5 [place] % (Auto) 11.7 H Eos % (Auto) 4.1 Baso % (Auto) 1.0 Absolute Neuts (auto) 3.8 Absolute Lymphs (auto) 2.23 Nucleated RBC % 0 D-Dimer Quant (PE/DVT) 0.76 H* Sodium 136 Potassium 4.3 Chloride 101 Carbon Dioxide 27.0 Anion Gap 8 BUN 18 Creatinine 1.04 Estim Creat Clear Calc 61.20 Est GFR (MDRD) Af Amer 90 Est GFR (MDRD) Non-Af 74 BUN/Creatinine Ratio 17.3 Glucose 112 H Calcium 9.4 Troponin I High Sens 6 Radiography Chest X-Ray - ED: 1 View, Read by ED Physician, Read by Radiologist and No Acute Disease Diagnostic Testing: Clinical Impression(s) from Imaging Studies Chest X-Ray 03/16/22 09:42 IMPRESSION: No acute abnormality is seen. Electronically Signed: Claude Hare MD at 10:15 EDT , Rhythm Strip Rhythm Strip: Sinus Rhythm Rate: 83 EKG Initial EKG: Attestation: I personally reviewed and interpreted this EKG as follows: Interpretation: Sinus Rhythm Comments: Normal sinus rhythm at a rate of 83 Normal axis Normal intervals Normal ST segments Discharge Plan Triage Chief Complaint: Chest Other ED Provider: Ijeoma Norton Dx/Rx/DC Orders Clinical Impression: Acute chest wall pain Instructions: ED Strain Chest Wall Prescriptions: New lidocaine 4 % adhesive patch,medicated 1 patch topical Q12H PRN (Reason: pain) Qty: 10 0RF No Action hydroxychloroquine 200 mg tablet 200 mg PO DAILY gabapentin 400 mg capsule 400 mg PO TID multivitamin Tablet 1 tab PO DAILY metoprolol tartrate 25 mg tablet 12.5 mg PO BID atorvastatin 20 mg tablet 20 mg PO QHS metformin 500 MG tablet 1,000 mg PO BIDCM Label Comments: diabetes tamsulosin 0.4 MG capsule 0.4 mg PO QHS Label Comments: bladder aspirin 81 MG tablet,chewable 81 mg PO DAILY Label Comments: heart health dulaglutide 1.5 MG/0.5 ML pen injector 1.5 mg SQ QWEEK Rx Instructions: tuesday tramadol 50 MG tablet 50 mg PO Q6H PRN PRN (Reason: Pain Or Fever) Levemir FlexTouch U-100 Insuln 100 unit/mL (3 mL) insulin pen 15 unit SC QHS celecoxib [Celebrex] 200 mg capsule 200 mg PO BID Primary Care Provider: Mike Flores Referrals: Mike Flores MD [Primary Care Provider] - Activity Restrictions/Additional Instructions: You may take a short course of [id number] anti-inflammatory such as ibuprofen, Advil or Aleve to help with the pain. If the pain worsens or he start having hard time breathing, please return to the emergency room. Disposition Disposition: Home, Self Care Discharge Date/Time: 03/16/22 11:31
[2022-03-16] MEDS: 0.9% Normal Saline 1,000 ML 1000 ML IV (09:52)
[2022-03-16] MEDS: Lidocaine 5% Patch 1 PATCH TOPICAL (09:53)
[2022-03-16] MEDS: Ketorolac 15 MG/ML Vial IV (09:53)
[2022-03-16 09:57] LABS: Absolute Lymphocyte Count 2.23 X10^3/uL (0.83-4.51); Absolute Neutrophil Count 3.8 X10^3/uL (2.0-7.7); Basophil# 0.07 X10^3/uL; Eosinophils% 4.1 % (0-5); Hematocrit 40.7 % (40-54); Lymphocyte # 2.23 X10^3/ul (0.83-4.51); Lymphocyte % 30.5 % (19-41); Mean Corp Hgb Conc 34.4 g/dL (32-36); Mean Corpuscular Hgb 30.2 pg (27.0-32.0); Mean Corpuscular Volume 87.9 fL (80-94); Mean Platelet Vol. 9.5 fl (6.2-12.0); Monocyte# 0.86 X10^3/uL; Monocyte% 11.7 % (0-10); NRBC Flagged by Analyzer 0 % (0-5); Neutrophil # 3.83 X10^3/uL (2.7-7.7); Neutrophil % 52.3 % (47-70); Platelet Count 187 K/mm3 (150-450); RBC Distribution Width CV 13.1 % (11.6-14.6); RBC Distribution Width SD 42.3 fl (35.1-43.9); Red Blood Count 4.63 M/mm3 (4.6-6.2); White Blood Count 7.3 K/mm3 (4.4-11.0)
[2022-03-16 10:00] VITALS: BP 132/63; PULSE 76; RESP 12; O2SAT 94
[2022-03-16 10:07] LABS: D-Dimer Quantitative (DVT/PE) 0.76 FEU/ug/m (0.27-0.49)
[2022-03-16 10:13] LABS: Anion Gap 8 (5-15); BUN 18 mg/dL (7-18); BUN/Creat Ratio 17.3 RATIO (10-20); Calcium,Total 9.4 mg/dL (8.5-10.1); Chloride 101 mmol/L (98-107); Creatinine, Serum 1.04 mg/dL (0.70-1.30); EST Glomerular Filtration Rate 74 mL/min (>60); Est Glom Filt Rate - Afr Amer 90 mL/min (>60); Glucose 112 mg/dL (74-106); Potassium 4.3 mmol/L (3.5-5.1); Sodium Level 136 mmol/L (136-145); Troponin-I HS 6 pg/mL (3.0-78.0)
[2022-03-16 11:00] VITALS: BP 136/60; PULSE 69; RESP 21; O2SAT 96
== END 2022-03-16 11:31 | disposition home or self-care (01) ==
PROVIDERS: Emergency Provider Emergency Medicine; PCP Family Medicine; Visit Provider Emergency Medicine
DX: R07.89 Other chest pain (principal); E11.9 Type 2 diabetes mellitus without complications; I25.10 Atherosclerotic heart disease of native coronary artery without angina pectoris; M54.9 Dorsalgia, unspecified; G89.29 Other chronic pain; E78.5 Hyperlipidemia, unspecified; I10 Essential (primary) hypertension; Z95.1 Presence of aortocoronary bypass graft; Z79.82 Long term (current) use of aspirin; Z79.84 Long term (current) use of oral hypoglycemic drugs; Z79.899 Other long term (current) drug therapy; Z87.891 Personal history of nicotine dependence
CPT/HCPCS: 71045; 80048; 84484; 85025; 85379; 93005; 96361; 96374; 99284; A4216

== ENCOUNTER 2023-02-05 14:05 | Emergency (ER) | payer MEDICARE, OTHER, SELFPAY ==
[2023-02-05 14:06] VITALS: BP 172/68; PULSE 81; RESP 14; TEMP 36.1; O2SAT 98
--- NOTE | 2023-02-05 14:44 | EX.ED.GUMALE ---
HPI History of Present Illness Chief Complaint: Male Pain/Injury Detail of Chief Complaint: Right thigh pain Informant: patient Narrative Narrative: Patient presents with right thigh pain x1 month. He denies injury. Patient states the pain kind of starts on the medial aspect of the knee or just above the knee and radiates towards the groin at times. He denies any recent travel or surgery. No history of DVT. His was concerned this could be a blood clot and she insisted he come get it evaluated. Patient denies chest pain or shortness of breath. He denies testicular pain. Denies back pain. [facility] Medical History Abnormal echocardiogram Asthmatic bronchitis with exacerbation Atherosclerotic heart disease of [place] coronary artery without angina pectoris Benign essential hypertension Benign prostatic hypertrophy Dyspnea on exertion HLD (hyperlipidemia) Intractable back pain Multi-vessel coronary artery stenosis Nonrheumatic aortic (valve) stenosis Obesity Obstructive sleep apnea syndrome Pain Physical debility Postoperative atrial fibrillation Type II diabetes mellitus Home Medications aspirin 81 mg chewable tablet 81 mg PO DAILY heart health 11/21/16 [History Last Taken 03/18/20] metformin 500 mg tablet 1,000 mg PO BIDCM diabetes 11/21/16 [History Last Taken 03/17/20] tamsulosin 0.4 mg capsule 0.4 mg PO QHS BPH 11/21/16 [History Last Taken 01/01/18] gabapentin 400 mg capsule 400 mg PO TID 02/28/20 [History Last Taken Unknown] hydroxychloroquine 200 mg tablet 200 mg PO DAILY 02/28/20 [History Last Taken Unknown] tramadol 50 mg tablet 50 mg PO Q6H PRN PRN Pain Or Fever 05/29/20 [History Last Taken Unknown] multivitamin 1 tab PO DAILY 06/09/20 [History Last Taken Unknown] celecoxib 200 mg capsule (Celebrex) 200 mg PO BID 06/27/20 [History Last Taken Unknown] insulin detemir U-100 100 unit/mL (3 mL) subcutaneous pen (Levemir FlexTouch U-100 Insulin) 15 unit subcut QHS 06/27/20 [History Last Taken Unknown] atorvastatin 20 mg tablet 20 mg PO QHS 12/22/20 [History Last Taken Unknown] metoprolol tartrate 25 mg tablet 12.5 mg PO BID 12/22/20 [History Last Taken Unknown] Allergy/AdvReac Type Severity Reaction Status Date / Time No Known Allergies Allergy Verified 02/05/23 14:48 Family History (Reviewed 08/16/22 @ 14:01 by Susanna Welch INFORMATION TECHNOLOGY AUDITOR, INFORMATION TECHNOLOGY AUDITOR-C) Father Myocardial infarction, Onset Age: 73 Mother Myocardial infarction, Onset Age: 68 Surgical History History of aortic valve replacement with bioprosthetic valve (~05/08/20) History of coronary artery bypass surgery (~05/08/20) History of knee replacement History of left heart catheterization (03/18/20) History of total knee arthroplasty Social History Smoking Status: Former smoker alcohol intake: never substance use type: does not use caffeine: Yes Type: coffee Number of servings: 3 ROS ROS ED Review of Systems ROS Unobtainable: other Constitutional Constitutional ED: Reports lethargy; Denies chills, fever(s), sweats or weight loss Eyes Eyes: Denies blurry vision, change in vision or diplopia ENT ENT ED: Denies rhinorrhea or sore throat Cardiovascular Cardiovascular: Denies chest pain, orthopnea or racing heartbeat Respiratory/Chest Respiratory/Chest: Denies cough, dyspnea, dyspnea on exertion, orthopnea or sputum Gastrointestinal Gastrointestinal: Denies abdominal pain, diarrhea, nausea or vomiting Genitourinary Genitourinary ED: Denies dysuria, hematuria or urinary frequency Musculoskeletal Musculoskeletal: Reports other Details: Right thigh pain ; Denies arthralgias, back pain, myalgias or neck pain Integumentary Denies abscess, Abrasions or rash Neurologic Neurologic: Denies headache(s) or weakness Psychiatric Psychiatric: Denies anxiety, depression or suicidal thoughts Endocrine Endocrinology: Denies polydipsia, polyphagia or polyuria Hematologic/Lymphatic Hematologic/Lymphatic: Denies easy bleeding, easy bruising or lymphadenopathy Allergic/Immunologic Allergic/Immunologic ED: Denies mouth swelling, tongue swelling or urticaria EXAM Physical Exam Const Vital Signs: 02/05/23 14:06 02/05/23 15:06 Temperature 97 F L Temperature Source Temporal Pulse Rate 81 71 Respiratory Rate 14 18 Blood Pressure 172/68 H 131/40 H Blood Pressure Mean 102 70 Pulse Ox 98 94 Oxygen Delivery Method Room Air Room Air Positive well nourished and well developed General Appearance ED: well developed and NAD HEENT Reports TM's clear and moist mucous membranes normocephalic and atraumatic; Negative for trauma or tenderness Tympanic Membrane ED: Yes TM's clear Eyes PERRL and EOMs intact bilaterally General Eye ED: Negative for pale conjunctiva or scleral icterus Neck no lymphadenopathy, supple and no JVD General: Negative for tenderness Chest Wall inspection of chest normal and palpation of chest normal Chest: Negative for tenderness Resp normal respiratory effort and clear to auscultation bilaterally Effort and Inspection: Negative for respiratory distress or pain with movement Auscultation: Negative for rhonchi, wheezes or diminished lung sounds Cardio regular rate, regular rhythm, S1 normal heart sound, S2 normal heart sound and no murmurs Peripheral Pulses: pulses 2+ throughout GI normal to inspection, nondistended, normoactive bowel sounds, soft to palpation, non-tender, non-distended and no masses Back/Spine no CVA tenderness and no thoracic nor lumbar tenderness Extremity Extremity Narrative: Right lower extremity-patient has tenderness palpation over the medial aspect of the right thigh. He does have some increased engorgement of veins right leg compared to left leg. Negative Homans' sign. No ropes or cords palpated. No cellulitic changes. No bony tenderness. General Extremety ED: Negative for edema General Extremity: Negative for edema Neuro oriented x3, CN's II-XII intact bilaterally, no sensory deficits noted and gait normal Sensorium / Orientation: awake, alert, oriented to person, oriented to place and oriented to time Motor Exam: strength 5/5 throughout and strength abnormal Psych mental status grossly normal Skin no rashes or lesions noted and no wounds MDM MDM MDM Narrative Medical decision making narrative: Patient presents with right leg pain its been going on for a month. He denies injury or trauma. Patient states pain is intermittent but can be severe at times in the medial aspect of his right thigh. It seems to originate just above the knee and now radiating towards the right groin. It can be reproduced with palpation. Worse with certain movements such as walking. I did obtain basic lab work that showed a normal white count. Chemistries were unremarkable. D-dimer when corrected for age was normal. We do not have ultrasound available today to obtain a venous Doppler to rule out DVT. Although given normal D-dimer I feel this was unlikely. I did obtain an x-ray of the femur as well and on my interpretation I do not appreciate any abnormalities. This point etiology of his pain is unclear if this is muscular pain versus neuropathic type pain. I will have patient come back tomorrow for venous Doppler to rule out DVT. I will not anticoagulate him in the meantime as my suspicion is low and he had a normal D-dimer. Patient otherwise will be given referral to follow-up with orthopedics within the next 3 to 5 days. Lab Data Attestation: I reviewed the patient's lab results. Labs: Laboratory Results - last 24 hr 02/05/23 02/05/23 02/05/23 14:58 14:58 14:58 WBC 6.2 RBC 4.29 L Hgb 13.0 Hct 37.8 L MCV 88.1 MCH 30.3 MCHC 34.4 RDW Std Deviation 39.3 RDW Coeff of Liang 12.3 Plt Count 192 MPV 8.9 Immature Gran % (Auto) 0.300 Neut % (Auto) 62.0 Lymph % (Auto) 22.7 [place] % (Auto) 11.3 H Eos % (Auto) 3.1 Baso % (Auto) 0.6 Absolute Neuts (auto) 3.8 Absolute Lymphs (auto) 1.40 Nucleated RBC % 0 D-Dimer Quant (PE/DVT) 0.66 H* Sodium 131 L Potassium 5.0 Chloride 99 Carbon Dioxide 26.0 Anion Gap 6 BUN 17 Creatinine 0.96 Estim Creat Clear Calc 65.31 Est GFR (MDRD) Af Amer 98 Est GFR (MDRD) Non-Af 81 BUN/Creatinine Ratio 17.7 Glucose 96 Calcium 9.1 Radiography Diagnostic Testin view x-ray right femur obtained interpreted by myself as no acute fractures or bony lytic lesions. Patient does have what appears to be a vascular calcification on my interpretation but otherwise do not appreciate any other soft tissue abnormalities. Official report from radiology pending. Discharge Plan Triage Chief Complaint: Male Pain/Injury ED Provider: Alan Correia Dx/Rx/DC Orders Clinical Impression: Acute pain of right thigh Instructions: ED Pain, Acute, Uncertain Cause Prescriptions: No Action hydroxychloroquine 200 mg tablet 200 mg PO DAILY gabapentin 400 mg capsule 400 mg PO TID multivitamin Tablet 1 tab PO DAILY metoprolol tartrate 25 mg tablet 12.5 mg PO BID atorvastatin 20 mg tablet 20 mg PO QHS metformin 500 MG tablet 1,000 mg PO BIDCM Label Comments: diabetes tamsulosin 0.4 MG capsule 0.4 mg PO QHS Label Comments: bladder aspirin 81 MG tablet,chewable 81 mg PO DAILY Label Comments: heart health tramadol 50 MG tablet 50 mg PO Q6H PRN PRN (Reason: Pain Or Fever) Levemir FlexTouch U100 Insulin 100 unit/mL (3 mL) insulin pen 15 unit SC QHS celecoxib [Celebrex] 200 mg capsule 200 mg PO BID Primary Care Provider: Mike Flores Referrals: Mike Flores MD [Primary Care Provider] - Nabor Thrasher DO [Med Staff - Active Staff] - 3-5 Days Disposition Disposition: Home, Self Care
[2023-02-05 14:47] VITALS: BMI 31.8
[2023-02-05 15:06] VITALS: BP 131/40; PULSE 71; RESP 18; O2SAT 94
[2023-02-05 15:18] LABS: Absolute Neutrophil Count 3.8 X10^3/uL (2.0-7.7); Basophil# 0.04 X10^3/uL; Basophil% 0.6 % (0-1); Eosinophil# 0.19 X10^3/uL; Eosinophils% 3.1 % (0-5); Hematocrit 37.8 % (40-54); Lymphocyte % 22.7 % (19-41); Mean Corp Hgb Conc 34.4 g/dL (32-36); Mean Corpuscular Hgb 30.3 pg (27.0-32.0); Mean Corpuscular Volume 88.1 fL (80-94); Mean Platelet Vol. 8.9 fl (6.2-12.0); Monocyte% 11.3 % (0-10); NRBC Flagged by Analyzer 0 % (0-5); Neutrophil # 3.82 X10^3/uL (2.7-7.7); Platelet Count 192 K/mm3 (150-450); RBC Distribution Width CV 12.3 % (11.6-14.6); RBC Distribution Width SD 39.3 fl (35.1-43.9); Red Blood Count 4.29 M/mm3 (4.6-6.2); White Blood Count 6.2 K/mm3 (4.4-11.0)
[2023-02-05 15:27] LABS: Anion Gap 6 (5-15); BUN 17 mg/dL (7-18); BUN/Creat Ratio 17.7 RATIO (10-20); Calcium,Total 9.1 mg/dL (8.5-10.1); Chloride 99 mmol/L (98-107); Creatinine, Serum 0.96 mg/dL (0.70-1.30); EST Glomerular Filtration Rate 81 mL/min (>60); Est Glom Filt Rate - Afr Amer 98 mL/min (>60); Estimated Creatinine Clearance 65.31 ml/min; Glucose 96 mg/dL (74-106); Sodium Level 131 mmol/L (136-145)
[2023-02-05 15:32] LABS: D-Dimer Quantitative (DVT/PE) 0.66 FEU/ug/m (0.27-0.49)
--- NOTE | 2023-02-05 15:55 | RAD_ITS ---
INDICATION: pain EXAMINATION/TECHNIQUE: X-RAY - RIGHT XR Femur 4 VIEWS COMPARISON: FINDINGS: SOFT TISSUES: No soft tissue swelling or gas. No radiopaque foreign body. BONES/JOINTS: No acute fracture or subluxation. There is a total knee prosthesis.. Normal alignment. Preservation of the joint space.. No sclerotic or destructive changes observed. RAD/Femur Min 2 Views IMPRESSION: No acute bony injury.. Electronically Signed: Keyur Crump DO at 16:15 EDT ,
[2023-02-05 16:21] VITALS: BP 118/79; PULSE 81; RESP 16; TEMP 36.7; O2SAT 98
--- NOTE | 2023-02-06 13:00 | VDLE_ITS ---
Reason For Study: Rt Leg Pain RIGHT LEFT GSV is normal. CFV is compressible, spontaneous, phasic, CFV is compressible, spontaneous, phasic, competent, and demonstrates normal competent and demonstrates normal augmentation. augmentation. FV is compressible, spontaneous, phasic, competent and demonstrates normal augmentation. POP V is compressible, spontaneous, phasic, competent and demonstrates normal augmentation. T/P Trunk is compressible. PTV is compressible. RT PerV is compressible. Procedure This is a venous duplex using B-mode, color flow and spectral Doppler. Exam performed in department. The exam was diagnostic. VL/Venous Duplex US, Unilateral Interpretation Summary There is no evidence of right lower extremity deep vein thrombosis. Right great saphenous vein appears patent and compressible segmentally. Normal flow patterns left common f emoral vein Ordering Physician: Alan Correia Referring Physician: Miek Flores Performed By: James Miller RVT
== END 2023-02-05 16:23 | disposition home or self-care (01) ==
PROVIDERS: Emergency Provider Emergency Medicine; PCP Family Medicine; Referring Provider Emergency Medicine; Visit Provider Emergency Medicine
DX: M79.651 Pain in right thigh (principal); I25.10 Atherosclerotic heart disease of native coronary artery without angina pectoris; G47.33 Obstructive sleep apnea (adult) (pediatric); Z95.1 Presence of aortocoronary bypass graft; Z87.891 Personal history of nicotine dependence
CPT/HCPCS: 36415; 73552; 80048; 85025; 85379; 99282

== ENCOUNTER → 2023-02-06 | Outpatient (CLI) | payer MEDICARE, OTHER, SELFPAY | END | disposition home or self-care (01) | PROVIDERS: PCP Family Medicine; Referring Provider Emergency Medicine; Visit Provider Emergency Medicine | DX: M79.604 Pain in right leg (principal) | CPT/HCPCS: 93971 ==

== ENCOUNTER → 2024-01-09 | Outpatient (CLI) | payer MEDICARE, OTHER, SELFPAY ==
--- NOTE | 2024-01-09 12:58 | ECHOCS_ITS ---
Reason For Study: Nonrheumatic Procedure This was a 2D Doppler, Color Flow transthoracic echocardiogram. The study was technically difficult. Contrast injection was performed. Exam performed in department. Left Ventricle Normal LV size. Mild concentric left ventricular hypertrophy. The left ventricular ejection fraction is 60 %. Diastolic function is indeterminate. Right Ventricle Normal right ventricle. Atria The left atrium is severely enlarged. Normal right atrium. Mitral Valve Trivial mitral valve insufficiency. Tricuspid Valve Mild tricuspid valve insufficiency. Right ventricular systolic pressure estimated to be 37 mmHg. Aortic Valve Bioprosthetic aortic valve functioning normally. Pulmonic Valve The pulmonic valve is not well visualized. Great Vessels Normal sized aortic root. Pericardium/Pleural No pericardial effusion. Medication 22 gauge I.V. with prn adaptor inserted into right arm. Diluted definity 2.5ml given slow IV push to enhance endocardial definition. Performed a rapid injection of agitated mix of 9 cc saline and 1cc air to assess for atrial septal defect. MMode/2D Measurements & Calculations LVIDd: 4.0 cm IVSd: 1.4 cm LVOT diam: 2.0 cm LVIDs: 2.7 cm LVPWd: 1.2 cm FS: 32.0 % LVOT area: 3.1 cm2 Ao root diam: 3.0 cm LAV(MOD-bp): 89.0 ml LVAd ap4: 28.5 cm2 LA dimension: 4.6 cm LAV(MOD-bp) Indexed: 44.0 ml/m2 LVLd ap4: 7.4 cm LAV(MOD-sp2): 80.0 ml EDV(MOD-sp4): 90.2 ml LAV(MOD-sp4): 94.1 ml EDV(sp4-el): 93.6 ml LVAs ap4: 16.9 cm2 LVLs ap4: 6.2 cm ESV(MOD-sp4): 37.8 ml ESV(sp4-el): 38.7 ml EF(MOD-sp4): 58.1 % EF(sp4-el): 58.7 % SV(MOD-sp4): 52.4 ml SV(sp4-el): 54.9 ml LA A4 area: 27.9 cm2 RA A4 area: 15.6 cm2 TAPSE: 1.4 cm Time Measurements MV dec time: 0.25 sec Doppler Measurements & Calculations MV E max isidro: 93.0 cm/sec Lat Peak E' Isidro: 8.2 cm/sec Med Peak E' Isidro: 8.9 cm/sec MV A max isidro: 128.8 cm/sec E/E' lat: 11.4 E/E' med: 10.5 MV E/A: 0.72 MV V2 max: 153.5 cm/sec MV P1/2t max isidro: 111.7 cm/sec Ao V2 max: 203.3 cm/sec MV max P.4 mmHg MV P1/2t: 91.2 msec Ao max P.5 mmHg MV V2 mean: 74.7 cm/sec MV dec slope: 358.8 cm/sec2 Ao V2 mean: 126.1 cm/sec MV mean P.7 mmHg MVA(P1/2t): 2.4 cm2 Ao mean P.5 mmHg MV V2 VTI: 40.8 cm Ao V2 VTI: 37.7 cm MVA(VTI): 2.1 cm2 AV (velocity ratio): 0.73 MARGARET(I,D): 2.2 cm2 MARGARET(V,D): 1.9 cm2 LV V1 max: 126.6 cm/sec SV(LVOT): 84.2 ml PA V2 max: 88.7 cm/sec LV V1 max P.4 mmHg PA V2 mean: 58.4 cm/sec LV V1 mean P.8 mmHg LV V1 mean: 92.7 cm/sec LV V1 VTI: 27.4 cm TR max isidro: 270.1 cm/sec TR max P.2 mmHg ECHO/Echo Complete W/ Contrast Interpretation Summary Mild concentric left ventricular hypertrophy. The left ventricular ejection fraction is 60 %. Diastolic function is indeterminate. The left atrium is severely enlarged. Mild tricuspid valve insufficiency. Right ventricular systolic pressure estimated to be 37 mmHg. Bioprosthetic aortic valve functioning normally. Mean peak gradient 7.5 mmHg. Ordering Physician: Rod Maravilla Referring Physician: Taiwo, Rod Performed By: Palmer Bolton RCS
== END | disposition home or self-care (01) ==
PROVIDERS: PCP Family Medicine; Referring Provider Internal Medicine Cardiovascular Disease; Visit Provider Internal Medicine Cardiovascular Disease
DX: I35.0 Nonrheumatic aortic (valve) stenosis (principal); E78.5 Hyperlipidemia, unspecified
CPT/HCPCS: 93306; Q9957; A4216; C8929

== ENCOUNTER → 2024-01-10 | Outpatient (CLI) | payer MEDICARE, OTHER, SELFPAY ==
--- NOTE | 2024-01-10 10:32 | CDU_ITS ---
Reason For Study: Hyperlipidemia Rt. Velocities/BP Lt. Velocities/BP Prox CCA 60.7/6.9 cm/sec. Prox CCA 85.1/9 cm/sec. Mid CCA 55.1/7.8 cm/sec. Mid CCA 63/9 cm/sec. Dist CCA 91.9/9.7 cm/sec. Dist CCA 81.4/10.2 cm/sec. Prox ICA 99.4/13.8 cm/sec. Prox ICA 94.9/13.9 cm/sec. Mid ICA 74/15.1 cm/sec. Mid ICA 94.9/18.8 cm/sec. Dist ICA 75.3/13.9 cm/sec. Dist ICA 83.9/18.8 cm/sec. Rt. ICA/CCA = 1.64. Lt. ICA/CCA = 1.17. Prox ECA 133.9 cm/sec. Prox ECA 141.2/5 cm/sec. Rt. Vert. 79/17.6 cm/sec. Lt. Vert. 55.3/6.9 cm/sec. Right Extracranial There is heterogeneous, irregular atherosclerotic plaque noted in the right common carotid artery. There is heterogeneous, irregular atherosclerotic plaque noted in the right internal carotid artery. The atherosclerotic plaque causes acoustic shadowing. There is heterogeneous, irregular atherosclerotic plaque noted in the right external carotid artery. Antegrade flow is noted in the right vertebral artery. Left Extracranial There is heterogeneous, irregular atherosclerotic plaque noted in the left common carotid artery. There is heterogeneous, irregular atherosclerotic plaque noted in the left internal carotid artery. The atherosclerotic plaque causes acoustic shadowing. There is heterogeneous, irregular atherosclerotic plaque noted in the left external carotid artery. Antegrade flow is noted in the left vertebral artery. VL/Carotid Duplex Ultrasound Interpretation Summary Mild (<50%) stenosis right extracranial internal carotid. Mild (<50%) stenosis left extracranial internal carotid. Patent and antegrade vertebrals bilaterally. Some limitation due to calcific shadowing, alternative imaging may be beneficia l. Ordering Physician: Rod Maravilla Referring Physician: Mike Flores Performed By: Ariana Gayle RVT
== END | disposition home or self-care (01) ==
LOC: CVS 10:30
PROVIDERS: PCP Family Medicine; Referring Provider Internal Medicine Cardiovascular Disease; Visit Provider Internal Medicine Cardiovascular Disease
DX: R09.89 Other specified symptoms and signs involving the circulatory and respiratory systems (principal); E78.5 Hyperlipidemia, unspecified
CPT/HCPCS: 93880

== ENCOUNTER → 2024-03-29 | Outpatient (CLI) | payer MEDICARE, OTHER, SELFPAY ==
--- NOTE | 2024-03-29 14:53 | CT_ITS ---
INDICATION: carotid disease, shadowing on ultrasound EXAMINATION: CT BRAIN WITHOUT CONTRAST, CTA HEAD, AND CTA NECK TECHNIQUE: Noncontrast axial images were obtained of the brain. Subsequently, routine carotid CT angiogram protocol was performed without and with IV contrast. In addition, images were obtained of the [place]. NASCET criteria using the distal ICAs for comparison were used for evaluation of stenoses. 3D reconstructions were reviewed. The protocol utilizes one or more of the following dose reduction techniques: automated exposure control, adjustment of mA and/or kV according to patient size,and/or use of iterative reconstruction technique. IV Contrast dosage and agent: 100mL Isovue-370 COMPARISON: No relevant prior comparison study available FINDINGS: --CT BRAIN WITHOUT CONTRAST: BRAIN PARENCHYMA: No intra- or extra-axial hemorrhage. No evidence of acute infarct. No intracranial mass or mass effect. There is preservation of the mars/white matter interface. Posterior fossa structures are unremarkable. CSF SPACES: Appropriate for age. No hydrocephalus. Basal cisterns are patent. CALVARIUM, SKULL BASE, PARANASAL SINUSES AND MASTOID AIR CELLS: Clear. No discrete lytic or blastic abnormalities. ASPECTS Score for Acute Strokes: 10 --CTA NECK: AORTIC ARCH AND BRANCHES: Normal anatomy, patent. RIGHT CCA: No occlusion, significant stenosis or dissection. RIGHT ICA: Advanced atherosclerotic calcifications in the right carotid bulb without occlusion, significant stenosis or dissection of the right ICA.. LEFT CCA: No occlusion, significant stenosis or dissection. LEFT ICA: Advanced atherosclerotic calcifications in the left carotid bulb without occlusion, significant stenosis or dissection of the left ICA.. RIGHT VERTEBRAL ARTERY: No occlusion, significant stenosis or dissection. LEFT VERTEBRAL ARTERY: No occlusion, significant stenosis or dissection. NECK SOFT TISSUES: Unremarkable. --CTA HEAD: --Anterior circulation: ICAs: No significant stenosis at the intracranial/visualized segments. ACAs: No significant stenosis at the visualized segments. ACOM: Present. MCAs: No significant stenosis at the visualized segments. --Posterior circulation: tool repairer bench: No significant stenosis at the visualized segments. BASILAR ARTERY: No significant stenosis. VERTEBRAL ARTERIES: No significant stenosis at the intradural/visualized segments. No evidence of intracranial aneurysm or vascular malformation. CT/CTA Head AND Neck W/ Contrast IMPRESSION: Advanced atherosclerotic calcifications in the carotid bulbs without occlusion, significant stenosis or dissection of the ICAs. Electronically Signed: Steve Cheatham MD at 4:08 EDT ,
[2024-03-29 15:24] LABS: CREATININE FINGERSTICK < 1.0 mg/dL (0.70-1.30); EGFR FINGERSTICK > 60.0000 mL/min (>60)
== END | disposition home or self-care (01) ==
LOC: CT 14:50
PROVIDERS: PCP Family Medicine; Referring Provider Physician Assistant; Visit Provider Physician Assistant
DX: I77.9 Disorder of arteries and arterioles, unspecified (principal)
CPT/HCPCS: 70496; 70498; Q9967

== ENCOUNTER → 2024-12-11 | Outpatient (CLI) | payer MEDICARE, SELFPAY ==
[2024-12-11 10:47] LABS: ALB/GLOB Ratio 1.5 RATIO (0.9-2.4); AST(SGOT) 23 U/L (<=37); Alanine Aminotransfer ALT/SGPT 17 U/L (<=46); Albumin, Serum 4.3 g/dL (3.4-4.8); Alkaline Phosphatase 94 U/L (40-129); Anion Gap 10 (5-15); BUN 16 mg/dL (4-19); BUN/Creat Ratio 16.1 RATIO (10-20); Calcium,Total 9.5 mg/dL (7.6-11.0); Carbon Dioxide 25.9 mmol/L (21.0-32.0); Chloride 103 mmol/L (98-108); Cholesterol 130 mg/dL (<=200); Creatinine, Serum 0.98 mg/dL (0.70-1.20); EST Glomerular Filtration Rate 80 (>60); Globulin 2.9 g/dL (2.2-4.2); Glucose 156 mg/dL (70-99); High Density Lipoprotein 44 mg/dL; Low Density Lipoprotein Calc. 65 mg/dL; Potassium 4.8 mmol/L (3.3-5.1); Protein, Total 7.2 g/dL (5.9-8.4); Sodium Level 139 mmol/L (133-145); Total Bilirubin 0.41 mg/dL (0.00-1.30); Triglycerides 105 mg/dL; Very Low Density Lipoprotein 21 mg/dL (5-40); cholesterol:hdl ratio screen 2.94
== END | disposition home or self-care (01) ==
LOC: LAB 09:12
PROVIDERS: PCP Family Medicine; Referring Provider Internal Medicine Cardiovascular Disease; Visit Provider Internal Medicine Cardiovascular Disease
DX: I25.10 Atherosclerotic heart disease of native coronary artery without angina pectoris (principal); I48.91 Unspecified atrial fibrillation; E11.59 Type 2 diabetes mellitus with other circulatory complications; I10 Essential (primary) hypertension; I97.89 Other postprocedural complications and disorders of the circulatory system, not elsewhere classified; E78.5 Hyperlipidemia, unspecified; E66.9 Obesity, unspecified; R93.1 Abnormal findings on diagnostic imaging of heart and coronary circulation; R06.00 Dyspnea, unspecified; Z95.1 Presence of aortocoronary bypass graft
CPT/HCPCS: 36415; 80053; 80061

== ENCOUNTER → 2024-12-25 | Outpatient (CLI) | payer MEDICARE, SELFPAY ==
--- NOTE | 2024-12-25 13:43 | ECHOCS_ITS ---
Reason For Study Reason For Study: Aortic Stenosis Procedure This was a 2D Doppler, Color Flow transthoracic echocardiogram. The study was technically difficult. Contrast injection was performed. Exam performed in department. Left Ventricle Mild concentric left ventricular hypertrophy. Normal LV size. The LV systolic function is normal. EF is 65 %. Stage 1 diastolic dysfunction. Right Ventricle Normal right ventricle. Atria The left atrium is moderately enlarged. Normal right atrium. Mitral Valve Trivial mitral valve insufficiency. Tricuspid Valve Mild tricuspid valve insufficiency. Normal pulmonary artery pressure. Aortic Valve Bioprosthetic aortic valve functioning normally. Mean peak gradient 7.7 mmHg. Pulmonic Valve The pulmonic valve is not well visualized. Great Vessels Normal sized aortic root. Pericardium/Pleural No pericardial effusion. Medication 22 gauge I.V. with prn adaptor inserted into right arm. Diluted definity 2ml given slow IV push to enhance endocardial definition. MMode/2D Measurements & Calculations LVIDd: 4.3 cm IVSd: 1.1 cm LVOT diam: 2.0 cm LVIDs: 2.8 cm LVPWd: 1.2 cm RVDd: 4.0 cm FS: 35.6 % LVOT area: 3.3 cm2 Ao root diam: 3.3 cm LAV(MOD-bp): 63.0 ml LVAd ap4: 28.0 cm2 LAV(MOD-bp) Indexed: 31.5 ml/m2 LVLd ap4: 8.0 cm LAV(MOD-sp2): 77.3 ml EDV(MOD-sp4): 80.5 ml LAV(MOD-sp4): 51.4 ml EDV(sp4-el): 83.2 ml LVAs ap4: 16.4 cm2 LVLs ap4: 6.4 cm ESV(MOD-sp4): 35.4 ml ESV(sp4-el): 35.8 ml EF(MOD-sp4): 56.1 % EF(sp4-el): 57.0 % SV(MOD-sp4): 45.1 ml SV(sp4-el): 47.4 ml LA A4 area: 19.8 cm2 SI(MOD-sp4): 22.6 ml/m2 LA dimension(2D): 4.7 cm RA A4 area: 14.1 cm2 TAPSE: 1.3 cm Time Measurements MV dec time: 0.39 sec Doppler Measurements & Calculations MV E max isidro: 80.0 cm/sec Lat Peak E' Isidro: 7.3 cm/sec Med Peak E' Isidro: 5.2 cm/sec MV A max isidro: 131.9 cm/sec E/E' lat: 10.9 E/E' med: 15.5 MV E/A: 0.61 MV V2 max: 154.0 cm/sec MV P1/2t max isidor: 101.2 cm/sec Ao V2 max: 207.4 cm/sec MV max P.5 mmHg MV P1/2t: 130.5 msec Ao max P.2 mmHg MV V2 mean: 75.4 cm/sec MV dec slope: 227.0 cm/sec2 Ao V2 mean: 127.5 cm/sec MV mean P.7 mmHg MVA(P1/2t): 1.7 cm2 Ao mean P.7 mmHg MV V2 VTI: 39.8 cm Ao V2 VTI: 37.7 cm MVA(VTI): 2.0 cm2 AV (velocity ratio): 0.63 MARGARET(I,D): 2.1 cm2 MARGARET(V,D): 1.6 cm2 LV V1 max: 104.4 cm/sec SV(LVOT): 77.7 ml TR max isidro: 263.1 cm/sec LV V1 max P.4 mmHg TR max P.7 mmHg LV V1 mean P.8 mmHg LV V1 mean: 79.3 cm/sec LV V1 VTI: 23.9 cm ECHO/Echo Complete W/ Contrast Interpretation Summary Mild concentric left ventricular hypertrophy. The LV systolic function is normal. EF is 65 %. Stage 1 diastolic dysfunction. The left atrium is moderately enlarged. Mild tricuspid valve insufficiency. Bioprosthetic aortic valve functioning normally. Mean peak gradient 7.7 mmHg. Ordering Physician: Rod Maravilla Referring Physician: Rod Maravilla Performed By: Palmer Bolton RCS
== END | disposition home or self-care (01) ==
LOC: CVS 13:41
PROVIDERS: PCP Family Medicine; Referring Provider Internal Medicine Cardiovascular Disease; Visit Provider Internal Medicine Cardiovascular Disease
DX: Z95.2 Presence of prosthetic heart valve (principal)
CPT/HCPCS: 93306; Q9957; A4216; C8929

== ENCOUNTER 2025-01-01 14:30 | Outpatient (RCR) | payer MEDICARE, SELFPAY ==
--- NOTE | 2024-11-16 15:52 | HP.PTEVAL_ITS ---
Patient's Visit Information Visit Information Visit Information: ASCENCION WEIR is a 74 year old M referred to Physical Therapy by Dr. Mike Flores MD with a diagnosis of Balance problems. Date of Evaluation: 11/16/24 Physical Therapist: Jean Claude Berman, CISCOT, OCS, CSCS Visit Plan Frequency: 2x /Week Duration: 4-6 Weeks Plan: 2x/week for 4-6 weeks... Work in clinic on 1. posterior to FW weight shift to HEP 2. vestibular balance challenges particularly static and dynamic with ec(gait belt) 3. gastroc stretching 4. ankle TB strength to HEP particularly DF IE HEP seated toe raises 3x10 adn gastroc wall stretch 30x5 with pics. also balance safety reeviewed with HO particularly ec and benefits of walkr to take pressure off back with ambulation. Subjective Subjective: I am stumbling around and losing my balance . Going on for 6-8 months now. Eyes open at sink is OK but hard with eye closed. Stumbles around house. Fell 2x, no spinning, caught foot one time and the other time turned too quick. Has neuropathy but not sure what causing it. History of back problems and has stimulator, has had DM for ever. Exercises in gym 2x/week riding bike, machines, but nothing else and takes about an hour. Retired, [employer]. Sleeping is good. No activ ehobbies, takes care of . Helps clean house adn mows yard in summer. Riding mow. Lives with . and granddaughter. Has steps to basement 14 with railing and uses it but can do them and has to be careful. Basic ADLS: Dress self , shower, bathroom all I. Sees [facility] for pain manageement injections in LB. Objective Objective: 32# L DF and 24# R dF. Walks with foot slap and neuropathic gait pattern. Feet pointed out for balance and wide TITO, slow but steady on firm flat surface. Unable to be safe with ec stance or walking. Heel raise easily, Toe raises are challnging R >L Transfers chair and bed I. Steps reciprocal up and down requiring 2 rails and keeps weight posteriorly. Ankls weak in DF 3+ B, PF 4 B, inv and ev 4- B. knee strength 4- B flex and ext. Hip strength 3+ abd and ext adn 4+ flexion, L causing some LBP with DF and knee flexion. reflexes 1/3 patella and achilles B sensation diminished to gross light touch in B feeet. coordination to reciprocal toe and heel tap is poor. Immdiate failure of balance to reaching with ec situations. Balance/Special Test Scores Functional Gait Assessment Score: 20 % Disability: 33.3400 CATSIB Score (Max score 120 seconds): 60 Lower Extremity Functional Score: 30 Goals Goal 1:: I appropriate HEP for DF and ankle strength, weight shifting and gastroc stretching. Goal Time Frame: 4-6 Weeks Goal 2:: 30# R ankle DF strength Goal Time Frame: 4-6 Weeks Goal 3:: pt feel 50% improved in overall balance and no falls Goal Time Frame: 4-6 Weeks Goal 4:: stand c wihtout immediate LOB 15 seconds. Goal Time Frame: 4-6 Weeks Rehabilitation Potential Physical Therapy Diagnosis: imbalance from neuroapthy, weakness causing risk at home with balance Rehabilitation Potential: Fair Anticipated Interventions Patient/Client Instruction: Educate patient on: Condition and Risk Factors For the Purpose of:: To improve gait and locomotor functions and To improve safety Therapeutic Exercise to Include: Strength training, Balance training, Flexibilty training, Passive ROM and Active ROM For the Purpose of:: To increase tolerance to activity/condition/position, To improve gait and locomotor functions and To improve safety Text: Thank you for the opportunity to evaluate your patient. For Medicare and Medicare HMO plans, please review the plan of care and approve it. It will need to be FAXED BACK to us at [phone] for Medicare purposes. For Medicare only, by signing this I certify the plan of care. Please let me know if there are questions or concerns regarding this plan of care. Physician Signature: ___Date:
--- NOTE | 2025-01-01 15:16 | HP.PTDCSUM ---
Discharge Summary D/C summary: It has been my pleasure to treat [facility] WE[facility] referred by Dr. Mike Flores MD, with the diagnosis of Balance problems for a total of 13 visit(s). Discharge Date: 01/01/25 Please see the following information for a summary of their discharge status. Subjective Subjective: Not seeing much improvement, maybe a little better in movement adn ROM back. Has appointment for back injections and will have hip looked at . Hip pain and tightness is holding him back. Balance is not much different. No falls laately, not catching to e as much. Pain Bilateral Back: Pain Intensity (Out of 10): 7 Overall Improvement % Improvement: 5 Objective Objective/Function: 10 # R DF, not improving. Walksing with L steppage adn neuropathic gait pattern. Safe without AD but slow. Overall not feeling much better and pain LB and R hip is frustrating factor, he will be going to pain management for that and may request back in after pain is improved if desired. Goals Goal 1:: I appropriate HEP for DF and ankle strength, weight shifting and gastroc stretching. Goal Progress: Goal Met Goal 2:: 30# R ankle DF strength Goal Progress: Not Progressing Goal 3:: pt feel 50% improved in overall balance and no falls Goal Progress: Not Progressing Goal 4:: stand c wihtout immediate LOB 15 seconds. Goal Progress: Not Progressing Plan Plan: d/c D/C Information Discharge Comments: Pt not progressing with strength Df, feeling of improved balance or pain. Will check with next step which he says is pain management. d/c sentence: If there are questions or concerns regarding this patient's physical therapy, please feel free to call me at [phone]. Thank you for the referral of this patient. Sincerely, Jean Claude Berman, DPT, OCS, CSCS Balance/Gait/Functional tests Balance/Special Test Scores Functional Gait Assessment Score: 18 % Disability: 40.0000 CATSIB Score (Max score 120 seconds): 60 Lower Extremity Functional Score: 33 Improvement % Improvement: 5
== END 2025-01-01 19:00 | disposition home or self-care (01) ==
LOC: PT 14:30
PROVIDERS: PCP Family Medicine; Referring Provider Family Medicine; Visit Provider Family Medicine
DX: R26.89 Other abnormalities of gait and mobility (principal)
CPT/HCPCS: 97110; 97162; 97530

== ENCOUNTER → 2025-01-09 | Outpatient (CLI) | payer MEDICARE, SELFPAY ==
--- NOTE | 2025-01-09 11:15 | RAD_ITS ---
PROCEDURE: L/S SPINE W BEND MIN 6 VW 01/09/2025 REASON FOR EXAM: LUMBAR DEGENERATIVE DISC DISEASE TECHNIQUE: 6 views; AP, bilateral oblique, lateral and flexion-extension COMPARISON: None available FINDINGS: 5 [id number] lumbar vertebral body types identified. Leftward curvature, scoliosis. Partially imaged intraspinal stimulator. Study is limited due to the curvature and multilevel degenerative changes. No spondylolysis identified. No fracture or malalignment identified. Multilevel spondylosis/discogenic change appears greatest at L1-2 and L3-4. Aortoiliac atherosclerotic calcification. No evidence of instability. Large flowing osteophyte formation. RAD/L/S Spine w Bend Min 6 Vw IMPRESSION: Multilevel spondylosis/discogenic change. Leftward curvature, scoliosis. Reading Location: [id number]
== END | disposition home or self-care (01) ==
LOC: RAD 11:06
PROVIDERS: PCP Family Medicine; Referring Provider Clinical Nurse Specialist Adult Health; Visit Provider Clinical Nurse Specialist Adult Health
DX: M51.369 Other intervertebral disc degeneration, lumbar region without mention of lumbar back pain or lower extremity pain (principal)
CPT/HCPCS: 72114

== ENCOUNTER 2025-04-15 14:07 | Inpatient (IN) | payer MEDICARE, SELFPAY ==
[2025-04-15] VITALS (15 sets, daily range): BP systolic 97–157; BP diastolic 53–106; PULSE 98–114; RESP 16–32; TEMP 37.3–40.3; O2SAT 92–100; BMI 33.9; BMI 29.9
--- NOTE | 2025-04-15 14:20 | EKG12_ITS ---
Test Reason : chest pain Blood Pressure : */* mmHG Vent. Rate : 113 BPM Atrial Rate : 113 BPM P-R Int : 136 ms QRS Dur : 72 ms QT Int : 276 ms P-R-T Axes : 79 1 -52 degrees QTcB Int : 378 ms Sinus tachycardia with frequent Premature ventricular complexes T wave abnormality, consider inferior ischemia Abnormal ECG Confirmed by BABAK RUIZ, HORACE ([id number]), newspaper or periodical editor STEVIE GTZ ([id number]) on 04/16/2025 8:47:49 AM Referred By: Confirmed By: HORACE HILLIARD MD
--- NOTE | 2025-04-15 14:22 | EX.ED.DYSGE1 ---
HPI History of Present Illness Chief Complaint: Palpitations Detail of Chief Complaint: Had not felt well for the past 2 days with increased weakness Informant: patient, EMS and SNF Onset/Context/Timing Onset: Days (Symptoms for 2 days per patient) Context: Sudden Onset Timing: Continuous Quality: Weakness, not feeling well, cough, urinary symptoms Location: Multiple Current Severity: Moderate Maximum Severity: Moderate Worsened by: Nothing, patient is not reliable since he is encephalopathic Relieved by: Nothing Associated Symptoms Associated Symptoms: Patient was unaware they had a temperature of 103.2. Narrative Narrative: Patient is a 74-year-old male. He has history of coronary artery disease status post bypass surgery, carotid artery disease, pericardial effusion, postoperative atrial fibrillation, hyperlipidemia, asthmatic bronchitis, obstructive sleep apnea, type 2 diabetes, essential hypertension who presents from nursing facility because of not feeling well and weakness. Patient was unaware that he had a temperature 103.2. His only complaints on review of system is intermittent headache, cough that is nonproductive and frequency. Prior similar symptoms: No Recent Illness/Hospitalization: No PFSH PFSH Medical History Right carotid bruit History of tenosynovitis Former smoker H/O methicillin resistant Staphylococcus aureus infection Arthritis Swelling of joint of left hand Hearing problem Cataracts, bilateral Back problem Arthritis HLD (hyperlipidemia) Hyponatremia Near syncope Lightheaded Chest wall pain Postoperative atrial fibrillation Atherosclerotic heart disease of [place] coronary artery without angina pectoris Pericardial effusion Fever Chest pain Multi-vessel coronary artery stenosis Dyspnea on exertion Abnormal echocardiogram Nonrheumatic aortic (valve) stenosis Intractable back pain Benign prostatic hypertrophy Physical debility Pain Asthmatic bronchitis with exacerbation Obstructive sleep apnea syndrome Obesity Type II diabetes mellitus Benign essential hypertension Home Medications ?Medication ?Instructions ?Recorded ?Last Taken ?Type aspirin 81 mg chewable tablet 81 mg PO DAILY heart health 11/21/16 03/18/20 History metformin 500 mg tablet 1,000 mg PO BIDCM diabetes 11/21/16 03/17/20 History tamsulosin 0.4 mg capsule 0.4 mg PO QHS BPH 11/21/16 01/01/18 History gabapentin 400 mg capsule 400 mg PO TID 02/28/20 Unknown History hydroxychloroquine 200 mg tablet 200 mg PO DAILY 02/28/20 Unknown History tramadol 50 mg tablet 50 mg PO Q6H PRN PRN Pain Or Fever 05/29/20 Unknown History multivitamin 1 tab PO DAILY 06/09/20 Unknown History celecoxib 200 mg capsule (Celebrex) 200 mg PO BID 06/27/20 Unknown History atorvastatin 20 mg tablet 20 mg PO QHS 12/22/20 Unknown History insulin detemir U-100 100 unit/mL 10 unit subcut QHS PRN 05/31/24 Unknown History (3 mL) subcutaneous pen (Levemir FlexTouch U-100 Insulin) losartan 25 mg tablet 25 mg PO QDAY #90 tabs 05/31/24 Unknown Rx metoprolol succinate 50 mg 50 mg PO QDAY 05/31/24 Unknown History tablet,extended release 24 hr metoprolol succinate 100 mg 50 mg PO DAILY 04/15/25 Unknown History tablet,extended release 24 hr Allergy/AdvReac Type Severity Reaction Status Date / Time No Known Allergies Allergy Verified 04/15/25 14:20 Family History Father Myocardial infarction, Onset Age: 73 Mother Myocardial infarction, Onset Age: 68 Other Arthritis Asthma Diabetes High cholesterol Hypertension Surgical History History of aortic valve replacement with bioprosthetic valve (~05/08/20) History of coronary artery bypass surgery (~05/08/20) History of left heart catheterization (03/18/20) History of knee replacement History of total knee arthroplasty Social History Smoking Status: Former smoker alcohol intake: never substance use type: does not use caffeine: Yes Type: coffee Number of servings: 3 additional social history: Does Not Take Ibuprofen ROS ROS ED Constitutional Constitutional ED: Denies chills, fever(s) or sweats Eyes Eyes: Denies blurry vision or change in vision ENT ENT ED: Denies ear pain, rhinorrhea or sore throat Cardiovascular Cardiovascular: Denies chest pain, orthopnea, palpitations or paroxysmal nocturnal dyspnea Respiratory/Chest Respiratory/Chest: Reports cough; Denies dyspnea, dyspnea on exertion, orthopnea, paroxysmal nocturnal dyspnea or sputum Gastrointestinal Gastrointestinal: Denies abdominal pain, diarrhea, nausea or vomiting Genitourinary Genitourinary ED: Reports urinary frequency; Denies dysuria or hematuria Musculoskeletal Musculoskeletal: Denies arthralgias or myalgias Integumentary Denies rash Neurologic Neurologic: Reports headache(s) and weakness; Denies paresthesias Hematologic/Lymphatic Hematologic/Lymphatic: Reports systems reviewed and no addt'l complaints, except as documented Allergic/Immunologic Allergic/Immunologic ED: Denies mouth swelling or tongue swelling EXAM Physical Exam Const Vital Signs: 04/15/25 14:09 04/15/25 14:09 04/15/25 14:21 Temperature 103.6 F H 103.2 F H 103.2 F H Temperature Source Oral Oral Oral Pulse Rate 112 H 110 H 110 H Respiratory Rate 18 20 H 20 H Respiratory Pattern Blood Pressure 156/53 H 156/53 H 156/53 H Blood Pressure Mean 87 87 87 Pulse Ox 95 94 95 Oxygen Delivery Method Room Air Room Air Room Air 04/15/25 15:11 04/15/25 15:21 04/15/25 15:21 Temperature 103.5 F H 103.8 F H Temperature Source Core Core Pulse Rate 114 H 109 H Respiratory Rate 24 H 23 H Respiratory Pattern Tachypnea Blood Pressure 151/106 H 151/106 H Blood Pressure Mean 121 121 Pulse Ox 94 92 Oxygen Delivery Method Room Air Room Air 04/15/25 16:00 04/15/25 16:00 04/15/25 17:00 Temperature 104.5 F H 104.5 F H 104.4 F H Temperature Source Core Core Core Pulse Rate 109 H 109 H 112 H Respiratory Rate 32 H 32 H 26 H Respiratory Pattern Blood Pressure 156/60 H 156/60 H 145/65 H Blood Pressure Mean 92 92 91 Pulse Ox 92 92 95 Oxygen Delivery Method Room Air Room Air Room Air 04/15/25 17:00 04/15/25 18:00 04/15/25 18:00 Temperature 104.4 F H 104.1 F H 104 F H Temperature Source Core Core Core Pulse Rate 110 H 110 H 110 H Respiratory Rate 22 H 19 H 23 H Respiratory Pattern Blood Pressure 145/65 H 145/65 H 145/65 H Blood Pressure Mean 91 91 91 Pulse Ox 95 92 94 Oxygen Delivery Method Room Air Room Air Room Air 04/15/25 18:34 Temperature Temperature Source Pulse Rate Respiratory Rate Respiratory Pattern Blood Pressure Blood Pressure Mean Pulse Ox 93 Oxygen Delivery Method Room Air Positive well nourished and well developed Constitutional Narrative: Patient appears ill but not toxic. He is in no obvious distress. His vital signs are remarkable for tachycardia, tachypnea and temperature of 103.2 ?F. He is not hypoxic. General Appearance ED: well developed; Negative for pallor HEENT Reports TM's clear and dry mucous membranes Negative for trauma or tenderness Tympanic Membrane ED: Yes TM's clear Mouth ED: Yes dry mucous membranes Mouth: dry mucous membranes Eyes PERRL and EOMs intact bilaterally General Eye ED: Negative for pale conjunctiva or scleral icterus Neck no lymphadenopathy, supple and no JVD Chest Wall inspection of chest normal and palpation of chest normal Resp normal respiratory effort and clear to auscultation bilaterally Cardio no murmurs Rate: tachycardic Rhythm: abnormal rhythm irregularly irregular GI normal to inspection, nondistended, normoactive bowel sounds, non-distended and no masses; Negative for non-tender or hepatosplenomegaly Palpation: soft and tender suprapubic Back/Spine no CVA tenderness Extremity Negative for normal to inspection Extremity Narrative: Stigmata of peripheral arterial disease, mild swelling/edema. Neuro oriented x3, CN's II-XII intact bilaterally and no sensory deficits noted Neuro Narrative: He is awake but not alert. At times he has trouble expressing himself and there is a break in fluency. Sensorium / Orientation: Negative for alert Psych Mood & Affect: depressed Skin no rashes or lesions noted, no wounds and skin turgor normal General Skin Exam: Negative for jaundice or pallor MDM MDM MDM Narrative Medical decision making narrative: Patient is presumed septic with a temperature 103.6, tachycardia, tachypnea. He is not in shock since his blood pressure is normal. The twelve-lead EKG that accompanied him from EMS reveals a rapid heart rate and I believe it is a fib. There is significant artifact. Will have respiratory therapist repeat 1 in the department. Monitor appears to be A-fib. Twelve-lead lead was obtained to assess for any evidence of cardiac ischemia. Patient is encephalopathic. Presumed source is urinary. However with him being tachypneic and having a cough will obtain chest x-ray to evaluate for pneumonia and to assure that there is no evidence of heart failure. Sepsis order set was used. Since he has no antibiotic allergies we will start treatment with Rocephin which will be appropriate for both respiratory and urologic pathogens. History & Record Review Additional record(s) reviewed:: Prior outpatient record (Records from nursing facility were reviewed. Patient was seen by plastic surgery April [address] Rodriges.), Prior ED visit (He was seen in the ER January 2023 for right thigh pain. Dr. Hidalgo's note was reviewed/read.) and Prior labs Lab Data Attestation: I reviewed the patient's lab results. Lab results narrative: Patient is neutropenic. There is a shift. Since patient is neutropenic we will add on a COVID, influenza RSV panel. There has been increase incidence of COVID involving patients from nursing facility. He is mildly anemic with normal indices. Comprehensive metabolic panel reveals slight hyponatremia and hypochloremia 132 and 96 respectively. Patient is not on a diuretic. Glucose is slowly elevated 125 with a normal CO2 and anion gap. Liver enzymes and albumin are normal. Urinalysis micro reveals 0-5 RBCs, 0-5 WBCs and no bacteria. Labs: Laboratory Results - last 24 hr 04/15/25 04/15/25 14:36 15:05 WBC 3.1 L RBC 4.08 L Hgb 12.6 L Hct 36.2 L MCV 88.7 MCH 30.9 MCHC 34.8 RDW Std Deviation 40.6 RDW Coeff of Liang 12.6 Plt Count 100 L MPV 9.1 Immature Gran % (Auto) 0.700 Neut % (Auto) 83.9 H Lymph % (Auto) 6.9 L [place] % (Auto) 7.2 Eos % (Auto) 1.0 Baso % (Auto) 0.3 Absolute Neuts (auto) 2.6 Absolute Lymphs (auto) 0.21 L Nucleated RBC % 0 PT 15.1 H INR 1.2 APTT 30.3 Sodium 132 L Potassium 4.6 Chloride 96 L Carbon Dioxide 23.1 Anion Gap 13 BUN 13 Creatinine 0.91 Estim Creat Clear Calc 74.67 Est GFR (MDRD) Non-Af 88 BUN/Creatinine Ratio 14.6 Glucose 125 H Lactic Acid 1.6 Calcium 9.3 Total Bilirubin 0.52 AST 36 ALT 30 Alkaline Phosphatase 99 Total Protein 7.1 Albumin 4.3 Globulin 2.8 Albumin/Globulin Ratio 1.6 Urine Color Yellow Urine Clarity Clear Urine pH 7.0 Ur Specific [place] 1.010 Urine Protein 30 H Urine Glucose (UA) Normal Urine Ketones 5 H Urine Occult Blood 10 H Urine Nitrite Negative Urine Bilirubin Negative Urine Urobilinogen Normal Ur Leukocyte Esterase Negative Urine RBC 0-5 SEEN Urine WBC 0-5 SEEN Ur Squamous Epith Cells 0-5 SEEN Urine Bacteria 0 SEEN Urine Mucus 0 SEEN Radiography Chest X-Ray - ED: 1 View and Read by ED Physician (X-ray slightly rotated. Patient has sternotomy scars noted. There is some mild increased interstitial markings noted. There is no cephalization, effusion, pneumothorax. Osseous structures reveal some chronic changes. Is independent reviewed interpreted by me at the [id number]) EKG Initial EKG: Attestation: I personally reviewed and interpreted this EKG as follows: Interpretation: Sinus Rhythm (Sinus tachycardia with frequent paced rhythms noted. Rate is 113. [place] 136 ms per QRS duration 72 ms her QT duration 276 ms. [place] is normal. There is artifact the computer is reading consider an Fery or ischemia.) Management Discussion w/another healthcare provider: Hospitalist (Dr. Claudia Diaz the hospitalist was paged for admission. Fever of unknown etiology with encephalopathy) Treatment and Re-Evaluation :: patient initially received Rocephin since the concern was possible respiratory or urologic etiology in light of him having a cough shortness of breath and frequency. Since there is no evidence of pneumonia and no evidence of urinary tract infection vancomycin was added. Discharge Plan Dx/Rx/DC Orders Clinical Impression: Fever and chills, Acute encephalopathy, SIRS (systemic inflammatory response syndrome), Pancytopenia, Benign essential hypertension, Obstructive sleep apnea syndrome, Acute hyponatremia, Type 2 diabetes mellitus with hyperglycemia, Adult BMI 33.0-33.9 kg/sq m Disposition Disposition: Acute Care [facility]
[2025-04-15] MEDS: 0.9% Normal Saline (500mL Bag) 500 ML 999 ML IV (14:55)
[2025-04-15 14:56] LABS: Hematocrit 36.2 % (40-54); Hemoglobin 12.6 g/dL (13.0-16.5); Immature Granulocytes Count 0.020 X10^3/uL (0.0-0.0); Mean Corp Hgb Conc 34.8 g/dL (32-36); Mean Corpuscular Volume 88.7 fL (80-94); Mean Platelet Vol. 9.1 fl (6.2-12.0); NRBC Flagged by Analyzer 0 % (0-5); POSITIVE DIFFERENTIAL YES; Platelet Count 100 K/mm3 (150-450); RBC Distribution Width CV 12.6 % (11.6-14.6); RBC Distribution Width SD 40.6 fl (35.1-43.9); Red Blood Count 4.08 M/mm3 (4.6-6.2); White Blood Count 3.1 K/mm3 (4.4-11.0)
[2025-04-15 15:06] LABS: Partial Thromboplast Time 30.3 Seconds (24.1-36.2); Prothrombin Time (Protime)PT. 15.1 SECONDS (11.7-14.9)
[2025-04-15 15:13] LABS: Mucous, Urine 0 SEEN /hpf (<or=2+)
--- NOTE | 2025-04-15 15:15 | RAD_ITS ---
PROCEDURE: CHEST 1 VIEW (PORTABLE) 04/15/2025 REASON FOR EXAM: TACHYPNEA TECHNIQUE: Frontal view of the chest. COMPARISON: 03/16/2022 chest x-ray FINDINGS: Hardware: Sternotomy wires are present. Heart: The heart size is normal. Lungs: The lungs are clear. Bones: The bones are unremarkable. RAD/Chest 1 View (Portable) IMPRESSION: No Acute Findings. Reading Location: [facility]
[2025-04-15 15:31] LABS: AST(SGOT) 36 U/L (<=37); Alanine Aminotransfer ALT/SGPT 30 U/L (<=46); Albumin, Serum 4.3 g/dL (3.4-4.8); Alkaline Phosphatase 99 U/L (40-129); Anion Gap 13 (5-15); BUN 13 mg/dL (4-19); BUN/Creat Ratio 14.6 RATIO (10-20); Calcium,Total 9.3 mg/dL (7.6-11.0); Carbon Dioxide 23.1 mmol/L (21.0-32.0); Chloride 96 mmol/L (98-108); Estimated Creatinine Clearance 74.67 ml/min (50-250); Globulin 2.8 g/dL (2.2-4.2); Glucose 125 mg/dL (70-99); Potassium 4.6 mmol/L (3.3-5.1)
[2025-04-15 16:57] LABS: Color, Urine Yellow (Yellow); Glucose, Dipstick Normal (Normal); Ketone-Dipstick 5 mg/dl (Negative); Leukocyte Esterase-Dipstick Negative /ul (Negative); Nitrite-Dipstick Negative (Negative); Occult Blood-Urine 10 /ul (Negative); Protein-Dipstick 30 mg/dl (Negative); Specific Gravity, Urine 1.010 (1.002-1.030); Urine Bilirubin Dipstick Negative (Negative)
[2025-04-15 17:14] LABS: Red Blood Cells-Urine 0-5 SEEN /hpf (0-5); Squamous Epithelial Cells - UA 0-5 SEEN /hpf (0-5)
--- NOTE | 2025-04-15 18:05 | CT_ITS ---
PROCEDURE: CT CHEST, ABD, PEL W/CONTRAST 04/15/2025 REASON FOR EXAM: FEVER 104, NO SOURCE TECHNIQUE: Chest, abdomen and pelvis CT with intravenous contrast. Coronal and Sagittal reconstruction series were provided. One or more dose reduction techniques were used (e.g., Automated exposure control, adjustment of the mA and/or kV according to patient size, use of iterative reconstruction technique. 90 cc of Isovue 370 utilized RADIATION DOSE SUMMARY: CTDlvol: 53 mGy DLP: 1966 mGycm COMPARISON: 05/2021 FINDINGS: Inspection of the lung parenchyma demonstrates no consolidation. No edema. No infiltrate. Minimal tree-in-bud nodularity at the right lung base may be inflammatory. Please correlate clinically. Normal axilla. Normal chest wall. No thoracic aneurysm. Moderate coronary artery calcification. No mediastinal mass or pericardial effusion. Spinal stimulator leads are in place. No liver masses. Normal spleen. Normal pancreas. No hydronephrosis. Left renal cyst is present. Pancreas is unremarkable. There is no bowel obstruction. There is a fat containing umbilical hernia. There is no free air, free fluid or abscess. There is a Guzman catheter in the bladder. CT/CT Chest, Abd, Pel w/Contrast IMPRESSION: Minimal inflammatory change in the right lower lobe. No acute abnormality. In cidental findings as above Reading Location[facility]
[2025-04-15] MEDS: Vancomycin HCl 1,500 MG in 0.9% Normal Saline (500mL Bag) 500 ML 250 MG IV (18:16)
--- NOTE | 2025-04-15 19:37 | HP.PCM.HOS_ITS ---
HPI - General General Date of Admission: 04/15/25 Date of Service: 04/15/25 Chief Complaint: Confusion, dry cough HPI Narrative ASCENCION WEIR, is a 74-year-old male with a history of CABG, BPH, diabetes, aortic valve replacement, chronic back pain, LIAN, hypertension who presented to [facility] ED 04/15/2025 with confusion, shakes, sweats that started overnight. Patient had been in his usual health until sometime last night when he became a little bit confused, starting this morning his confusion increased and he was having shaking episodes and sweats. He was brought to the ED and temp noted to be 103.6, heart rate 112, blood pressure 156/53, respiratory rate 18 and pulse ox 95% on room air. CBC with a white blood cell count of 3.1, hemoglobin 12.6 and platelet count of 100. CMP with sodium of 132, chloride 96 and glucose 125 with normal liver panel and kidney function, UA not suggestive of UTI. Chest x-ray with no acute findings. Lactic acid 1.6. Patient was persistently febrile so cultures obtained and he was started on vancomycin and hospitalist contacted for admission. Did order chest/abdomen/pelvis CT with IV contrast to be done in the ED to try to identify source however this only revealed minimal inflammatory change in the right lower lobe. Patient evaluated with family members at bedside, they confirm history as above, patient's only specific complaint aside from that that was new was a little bit of a cough since yesterday that has not been productive, no diarrhea or abdominal pain, has chronic back pain and this is not necessarily acutely changed. Does feel little bit weaker but this is not focal in nature. Family member at bedside notes he had a rash on his lower extremities 2 weeks ago that they thought might of been poison josie, this was treated by PCP and resolved. Patient also notes he had tripped a couple of times recently and fell on his knees, at one point his right knee had been a little bit swollen after a fall however that is resolved and there is no more swelling, erythema, pain, redness or evidence of any joint infection. Patient denies any open wounds with any drainage. Does follow with Dr. Devine for pain management. Of note family at bedside says mental status is pretty much back to baseline now. [facility] Medical History Right carotid bruit History of tenosynovitis Former smoker H/O methicillin resistant Staphylococcus aureus infection Arthritis Swelling of joint of left hand Hearing problem Cataracts, bilateral Back problem Arthritis HLD (hyperlipidemia) Hyponatremia Near syncope Lightheaded Chest wall pain Postoperative atrial fibrillation Atherosclerotic heart disease of [place] coronary artery without angina pectoris Pericardial effusion Fever Chest pain Multi-vessel coronary artery stenosis Dyspnea on exertion Abnormal echocardiogram Nonrheumatic aortic (valve) stenosis Intractable back pain Benign prostatic hypertrophy Physical debility Pain Asthmatic bronchitis with exacerbation Obstructive sleep apnea syndrome Obesity Type II diabetes mellitus Benign essential hypertension Home Medications ?Medication ?Instructions ?Recorded ?Last Taken ?Type aspirin 81 mg chewable tablet 81 mg PO DAILY heart hea lth 11/21/16 03/18/20 History metformin 500 mg tablet 1,000 mg PO BIDCM diabetes 0 11/21/16 03/17/20 History tamsulosin 0.4 mg capsule 0.4 mg PO QHS BPH 11/21/16 0 01/01/18 History gabapentin 400 mg capsule 400 mg PO TID 02/28/20 Unkno wn History hydroxychloroquine 200 mg tablet 200 mg PO DAILY 02/27 Unknown History tramadol 50 mg tablet 50 mg PO Q6H PRN PRN Pain Or Fever 05/29/20 Unknown History multivitamin 1 tab PO DAILY 06/09/20 Unkn own History celecoxib 200 mg capsule (Celebrex) 200 mg PO BID 05/31 Unknown History atorvastatin 20 mg tablet 20 mg PO QHS 12/22/20 Unknow n History insulin detemir U-100 100 unit/mL 10 unit subcut QHS P RN 05/31/24 Unknown History (3 mL) subcutaneous pen (Levemir FlexTouch U-100 Insulin) losartan 25 mg tablet 25 mg PO QDAY #90 tabs 05/31 Unknown Rx metoprolol succinate 50 mg 50 mg PO QDAY 05/31/24 Unkn own History tablet,extended release 24 hr metoprolol succinate 100 mg 50 mg PO DAILY 04/15/25 Un known History tablet,extended release 24 hr Allergy/AdvReac Type Severity Reaction Status Date / Time No Known Allergies Allergy Verified 04/15/25 14:20 Family History Father Myocardial infarction, Onset Age: 73 Mother Myocardial infarction, Onset Age: 68 Other Arthritis Asthma Diabetes High cholesterol Hypertension Surgical History History of aortic valve replacement with bioprosthetic valve (~05/08/20) History of coronary artery bypass surgery (~05/08/20) History of left heart catheterization (03/18/20) History of knee replacement History of total knee arthroplasty Social History Smoking Status: Former smoker alcohol intake: never substance use type: does not use caffeine: Yes Type: coffee Number of servings: 3 additional social history: Does Not Take Ibuprofen ROS ROS Narrative General: Fevers this morning and potentially last night HENT: Denies headache, denies stuffy nose, denies sore throat EYES: Denies changes in vision Resp: Slight dry cough, denies shortness of breath Cardiac: Denies chest pain GI: Denies abdominal pain, denies changes in bowel, denies nausea/vomiting : Denies changes in urination Extremity: Denies swelling MSK: Some generalized weakness, chronic back pain Neuro: Denies any numbness/tingling Heme: Easy bruising Skin: Had rash 2 weeks ago that is virtually resolved Psychiatric: No complaints voiced Vital Signs Vital Signs Vital Signs: 04/15/25 14:09 04/15/25 14:09 04/15/25 14:21 Temperature 103.6 F H 103.2 F H 103.2 F H Temperature Source Oral Oral Oral Pulse Rate 112 H 110 H 110 H Respiratory Rate 18 20 H 20 H Respiratory Pattern Blood Pressure 156/53 H 156/53 H 156/53 H Blood Pressure Mean 87 87 87 Pulse Ox 95 94 95 Oxygen Delivery Method Room Air Room Air Room Air 04/15/25 15:11 04/15/25 15:21 04/15/25 15:21 Temperature 103.5 F H 103.8 F H Temperature Source Core Core Pulse Rate 114 H 109 H Respiratory Rate 24 H 23 H Respiratory Pattern Tachypnea Blood Pressure 151/106 H 151/106 H Blood Pressure Mean 121 121 Pulse Ox 94 92 Oxygen Delivery Method Room Air Room Air 04/15/25 16:00 04/15/25 16:00 04/15/25 17:00 Temperature 104.5 F H 104.5 F H 104.4 F H Temperature Source Core Core Core Pulse Rate 109 H 109 H 112 H Respiratory Rate 32 H 32 H 26 H Respiratory Pattern Blood Pressure 156/60 H 156/60 H 145/65 H Blood Pressure Mean 92 92 91 Pulse Ox 92 92 95 Oxygen Delivery Method Room Air Room Air Room Air 04/15/25 17:00 04/15/25 18:00 04/15/25 18:00 Temperature 104.4 F H 104.1 F H 104 F H Temperature Source Core Core Core Pulse Rate 110 H 110 H 110 H Respiratory Rate 22 H 19 H 23 H Respiratory Pattern Blood Pressure 145/65 H 145/65 H 145/65 H Blood Pressure Mean 91 91 91 Pulse Ox 95 92 94 Oxygen Delivery Method Room Air Room Air Room Air 04/15/25 18:34 04/15/25 19:00 04/15/25 19:20 Temperature 102.7 F H 101.5 F H Temperature Source Core Pulse Rate 112 H 100 Respiratory Rate 20 H 18 Respiratory Pattern Blood Pressure 137/106 H 137/106 H Blood Pressure Mean 116 116 Pulse Ox 93 92 95 Oxygen Delivery Method Room Air Room Air Weight Weight: 95.4 kg Body Mass Index (BMI) 33.9 Physical Exam Narrative General: Alert, oriented, no apparent distress HEENT: Atraumatic, normocephalic Eyes: Anicteric, normal conjunctiva, extraocular movements grossly intact Neck: Supple Respiratory: Clear to auscultation bilaterally, normal respiratory effort Cardiovascular: Low-grade sinus tachycardia GI: Soft, nontender, nondistended Extremities: No edema Musculoskeletal: Moving all extremities Neuro: No overt focal neurological deficits Skin: No acute rashes appreciated, scattered bruising Psych: Cooperative Results Lab / Micro Data 04/15/25 14:36 04/15/25 14:36 Labs: Laboratory Results - last 24 hr 04/15/25 14:36: WBC 3.1 L, RBC 4.08 L, Hgb 12.6 L, Hct 36.2 L, MCV 88.7, MCH 30.9, MCHC 34.8, RDW Std Deviation 40.6, RDW Coeff of Liang 12.6, Plt Count 100 L, MPV 9.1, Immature Gran % (Auto) 0.700, Neut % (Auto) 83.9 H, Lymph % (Auto) 6.9 L, [place] % (Auto) 7.2, Eos % (Auto) 1.0, Baso % (Auto) 0.3, Absolute Neuts (auto) 2.6, Absolute Lymphs (auto) 0.21 L, Nucleated RBC % 0, PT 15.1 H, INR 1.2, APTT 30.3, Sodium 132 L, Potassium 4.6, Chloride 96 L, Carbon Dioxide 23.1, Anion Gap 13, BUN 13, Creatinine 0.91, Estim Creat Clear Calc 74.67, Est GFR (MDRD) Non-Af 88, BUN/Creatinine Ratio 14.6, Glucose 125 H, Lactic Acid 1.6, Calcium 9.3, Total Bilirubin 0.52, AST 36, ALT 30, Alkaline Phosphatase 99, Total Protein 7.1, Albumin 4.3, Globulin 2.8, Albumin/Globulin Ratio 1.6 04/15/25 15:05: Urine Color Yellow, Urine Clarity Clear, Urine pH 7.0, Ur Specific [place] 1.010, Urine Protein 30 H, Urine Glucose (UA) Normal, Urine Ketones 5 H, Urine Occult Blood 10 H, Urine Nitrite Negative, Urine Bilirubin Negative, Urine Urobilinogen Normal, Ur Leukocyte Esterase Negative, Urine RBC 0-5 SEEN, Urine WBC 0-5 SEEN, Ur Squamous Epith Cells 0-5 SEEN, Urine Bacteria 0 SEEN, Urine Mucus 0 SEEN Micro: Microbiology 04/15/25 15:05 Mucosa - Nose SARS-CoV-2, Influenza & RSV (PCR) - Final Imaging Radiology Impression Chest X-Ray 04/15/25 15:15 IMPRESSION: No Acute Findings. Reading Location: [facility] Chest/Abdomen/Pelvis CT 04/15/25 18:05 IMPRESSION: Minimal inflammatory change in the right lower lobe. No acute abnormality. Incidental findings as above Reading Location: [facility] Assessment & Plan Assessment/Plan (1) Fever of unknown origin: PLAN: Plan # Fever of unknown origin with suspected metabolic encephalopathy -Fever 103 to 1-4 in the ED and patient had been confused, temp down to 101 on my evaluation and mental status almost back to baseline per family -CT chest/abdomen/pelvis only show some mild inflammatory changes in right lower lobe -Query if there could be a viral component to this given dry cough and sudden nature of symptoms pretty much negative ROS otherwise -Will check respiratory panel -Patient COVID/flu/RSV negative -Blood cultures pending -Will continue broad-spectrum antibiotics while awaiting further above workup -Will consult ID given the above and no current origin of patient's fever -No warm swollen joints, no draining lesions, no abdominal pain, back pain is at baseline and no recent head trauma # Pancytopenia - Unclear chronicity - Repeat in the a.m., possibly due to infection - If patient remains pancytopenic may need referral for outpatient evaluation #Type 2 diabetes mellitus -Glucose checks and sliding scale insulin #Hypertension - Blood pressure a little bit lower now that patient's fever improving, will hold home antihypertensives while awaiting the above #Chronic BPH with obstruction -Continue home medications #Hx of CAD and AV replacement -w/ previous CABG -Continue home medications #LIAN -Continue home cpap -Pt reports compliance #Hx chronic back pain -W/ previous surgery and spinal stim -Denies any recent new or acute complaints -Follows w/ Dr. Devine on outpt basis #DVT ppx: Lovenox subcu Debora Diaz MD Charges/Coding Visit Charges Inpatient E&M: 21015 Init Hosp L2
[2025-04-15] MEDS: 0.9% Normal Saline (1000mL) 1,000 ML 100 ML IV (20:34)
[2025-04-15] MEDS: Piperacil/Tazobactam 3.375 GM in 0.9% Normal Saline (50mL MB+) 50 ML IV (20:43)
--- NOTE | 2025-04-15 20:51 | PCM.RX.CS ---
Consult Antibiotic Management Pharmacy has been consulted to manage selected antibiotic: Vancomycin Type of Intervention Type of Consult: New start Suspected Infection Suspected Infection: Other (Fever of unknown origin with suspected metabolic encephalopathy ) Labs Labs: Sodium 132 mmol/L (133-145) L 04/15/25 14:36 Potassium 4.6 mmol/L (3.3-5.1) 04/15/25 14:36 Chloride 96 mmol/L (98-108) L 04/15/25 14:36 Carbon Dioxide 23.1 mmol/L (21.0-32.0) 04/15/25 14:36 Anion Gap 13 (5-15) 04/15/25 14:36 BUN 13 mg/dL (4-19) 04/15/25 14:36 Creatinine 0.91 mg/dL (0.70-1.20) 04/15/25 14:36 Est GFR (MDRD) Non-Af 88 (>60) 04/15/25 14:36 BUN/Creatinine Ratio 14.6 RATIO (10-20) 04/15/25 14:36 Glucose 125 mg/dL (70-99) H 04/15/25 14:36 Microbiology Microbiology: Microbiology 04/15/25 15:05 Mucosa - Nose SARS-CoV-2, Influenza & RSV (PCR) - Final Dosing Weight Weight used for dosin.3 kg Estimated Creatinine Clearance Estimated Creatinine Clearance: 74.67 Pharmacy Plan for Drug Dosing Pharmacy Plan for Drug Dosing: NEW START IV VANCOMYCIN Consulting Physician: Debora Diaz MD Indication: Fever of unknown origin with suspected metabolic encephalopathy Goal Trough: 15-20 SrCr: 0.91 MG/DL CrCl: 74.67ML/MIN Vancomycin Dose: 1250 mg q12h Pending Level: 04/17/2025 @ 0600 Pharmacy Service will continue to monitor and adjust dosing as required. Follow-Up Labs Follow-Up Labs: Trough: Vancomycin Date/Time Labs Ordered Labs to be done on [date and time ordered]: 04/17/2025 @0600
--- NOTE | 2025-04-15 22:26 | CT_ITS ---
PROCEDURE: STROKE CTA HEAD AND NECK W/CON 04/15/2025 REASON FOR EXAM: CHANGE IN MENTATION TECHNIQUE: STROKE CTA HEAD AND NECK W/CON Multiplanar Sagittal and Coronal images were obtained. 3D and MIP post processing was performed. One or more dose reduction techniques were used (e.g., Automated exposure control, adjustment of the mA and/or kV according to patient size, use of iterative reconstruction technique). RADIATION DOSE SUMMARY: DLP: 865.11 mGycm COMPARISON: CTA head/neck 03/29/2024. FINDINGS: CTA HEAD: Patent intracranial arterial vasculature. No large vessel occlusion, flow- limiting stenosis, saccular aneurysm, or vascular malformation identified. Major dural venous sinuses are patent. CTA NECK: Left vertebral artery arises directly from the aortic arch. Bilateral cervical carotid and vertebral arteries are patent. No aneurysm or dissection. Atherosclerotic plaque at the carotid artery bifurcations extending into the proximal ICAs, greater on the right with moderate stenosis of the proximal right ICA. More mild less than 50% stenosis of the proximal left ICA. Atherosclerotic calcification along the carotid siphons and distal vertebral artery V4 segments without significant luminal narrowing. Dominant right vertebral artery with hypoplastic distal V4 segment of the left vertebral artery, anatomic variation. NON-ANGIOGRAPHIC FINDINGS: Mild mucosal thickening in the floors of the maxillary sinuses. Mild multilevel degenerative changes of the visualized cervicothoracic spine with anterior bridging osteophytosis compatible with DISH. CT/STROKE CTA Head AND Neck W/Con IMPRESSION: 1. No large vessel arterial occlusion or high-grade stenosis. 2. Atherosclerotic plaque at the carotid bifurcations with moderate stenosis of the proximal right ICA, and mild less than 50% stenosis of the proximal left ICA. Reading Location: [id number]
--- NOTE | 2025-04-15 22:32 | CT_ITS ---
PROCEDURE: STROKE CT BRAIN/HEAD WITHOUT CONTRAST 04/15/2025 REASON FOR EXAM: CHANGE OF MENTATION TECHNIQUE: STROKE CT BRAIN/HEAD WITHOUT CONT Coronal and Sagittal reconstruction series were provided. One or more dose reduction techniques were used (e.g., Automated exposure control, adjustment of the mA and/or kV according to patient size, use of iterative reconstruction technique. RADIATION DOSE SUMMARY: CTDlvol: 44.99 mGy DLP: 914.22 mGycm COMPARISON: 03/29/2024. FINDINGS: No acute intracranial hemorrhage, extra-axial collection, mass effect or evidence of acute infarct. Mild generalized brain parenchymal volume loss, and chronic microangiopathic changes. Nonspecific mineralization in the bilateral basal ganglia. Atherosclerotic vascular calcifications. Absent saxman ocular lenses. Intact skull base and calvarium. Well-aerated paranasal sinuses and mastoid air cells. Small left maxillary sinus mucous retention cysts/polyps. CT/STROKE Brain/Head without Cont IMPRESSION: No acute intracranial abnormality. Reading Location: [id number]
--- NOTE | 2025-04-15 23:05 | PCM.PN.HOSP ---
Reason for Visit Chief Complaint: stroke alert Subjective Subjective Stroke team called 10:12 PM as nurse last saw the patient well at 830 approximately and was reevaluating him and found him to be dysarthric and more confused. Stated he had been earlier able to follow conversation fluently but was now struggling to speak coherently. Patient was also more notably agitated. Following stroke protocol patient was sent to radiology for stat CT scan of the brain and [facility] was consulted. Objective Data Objective Data Vital Signs: Vital Signs Temp Pulse Resp BP Pulse Ox O2 Del Method 101.4 F H 111 H 22 H 149/74 H 96 Room Air 04/15/25 21:55 04/15/25 21:55 04/15/25 21:55 04/15/25 21:55 04/15/25 21:55 04/15/25 21:55 Oxygen Delivery Method Room Air Weight: 185 lb 13.595 oz Body Mass Index (BMI) 29.9 Intake & Output: Intake and Output for Last 24 Hours 04/13/25 04/14/25 04/15/25 23:59 23:59 23:59 Intake Total 1130 / 1130 Balance 1130 / 1130 Lab / Micro Data 04/15/25 14:36 04/15/25 14:36 Labs: Laboratory Results - last 24 hr 04/15/25 14:36: WBC 3.1 L, RBC 4.08 L, Hgb 12.6 L, Hct 36.2 L, MCV 88.7, MCH 30.9, MCHC 34.8, RDW Std Deviation 40.6, RDW Coeff of Liang 12.6, Plt Count 100 L, MPV 9.1, Immature Gran % (Auto) 0.700, Neut % (Auto) 83.9 H, Lymph % (Auto) 6.9 L, [place] % (Auto) 7.2, Eos % (Auto) 1.0, Baso % (Auto) 0.3, Absolute Neuts (auto) 2.6, Absolute Lymphs (auto) 0.21 L, Nucleated RBC % 0, PT 15.1 H, INR 1.2, APTT 30.3, Sodium 132 L, Potassium 4.6, Chloride 96 L, Carbon Dioxide 23.1, Anion Gap 13, BUN 13, Creatinine 0.91, Estim Creat Clear Calc 74.67, Est GFR (MDRD) Non-Af 88, BUN/Creatinine Ratio 14.6, Glucose 125 H, Lactic Acid 1.6, Calcium 9.3, Total Bilirubin 0.52, AST 36, ALT 30, Alkaline Phosphatase 99, Total Protein 7.1, Albumin 4.3, Globulin 2.8, Albumin/Globulin Ratio 1.6 04/15/25 15:05: Urine Color Yellow, Urine Clarity Clear, Urine pH 7.0, Ur Specific [place] 1.010, Urine Protein 30 H, Urine Glucose (UA) Normal, Urine Ketones 5 H, Urine Occult Blood 10 H, Urine Nitrite Negative, Urine Bilirubin Negative, Urine Urobilinogen Normal, Ur Leukocyte Esterase Negative, Urine RBC 0-5 SEEN, Urine WBC 0-5 SEEN, Ur Squamous Epith Cells 0-5 SEEN, Urine Bacteria 0 SEEN, Urine Mucus 0 SEEN Micro: Microbiology 04/15/25 15:05 Mucosa - Nose SARS-CoV-2, Influenza & RSV (PCR) - Final Radiography Diagnostic Testing: Radiology Impression Chest X-Ray 04/15/25 15:15 IMPRESSION: No Acute Findings. Reading Location: [facility] Chest/Abdomen/Pelvis CT 04/15/25 18:05 IMPRESSION: Minimal inflammatory change in the right lower lobe. No acute abnormality. Incidental findings as above Reading Location: [facility] Brain CT 04/15/25 22:32 IMPRESSION: No acute intracranial abnormality. Reading Location: [facility] Physical Exam Const alert Orientation / Consciousness: confused HEENT head/scalp atraumatic Eyes PERRL and EOMs intact bilaterally Neck no lymphadenopathy Resp normal respiratory effort and no use of accessory muscles Cardio regular rate, regular rhythm, S1 normal heart sound and S2 normal heart sound Extremity normal to inspection Neuro moves all extremities, no focal motor deficits and no sensory deficits noted Sensorium / Orientation: alert, oriented to person and oriented to place Speech: Negative for speech normal Psych Mood & Affect: anxious Assessment & Plan Assessment/Plan (1) Fever of unknown origin: (2) Type 2 diabetes mellitus with hyperglycemia: (3) Change in mental status: PLAN: Plan Stroke alert?patient transported to radiology for stat CT scan consult obtained with [facility] neurology. After full evaluation it was agreed that the presentation was more likely secondary to sepsis/infection status rather than acute stroke. Per neurology patient to get MRI brain in the morning. Confusion/altered mental status/febrile illness?continue IV antibiotics and IV fluids and orders as previously written. 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 NIHSS NIHSS Nursing Documentation NIHSS Nursing Documentation: NIHSS: Ischemic Stroke/TIA Start: 04/15/25 22:16 Freq: Status: Active Protocol: Activity Type Activity Date Activity User E-sign Co-sign Detail Recorded Client Recorded Date Recorded By Document 04/15/25 22:17 MG [id number] 04/15/25 22:20 MG 04/15/25 22:17 NIH Stroke Scale [NIHSS] A score of 0 is normal or asymptomatic . Total possible score is 42. Inpatient: RN or Physician to activate a stroke alert for onset of new stroke symptoms or with NIHSS increase >/= 3 points. Following change in neurological status, NIHSS will be performed per physician order or more frequently PRN. -1a. Level of Consciousness 0 - Alert; keenly responsive -1b. LOC Questions 1 - Answers ONE question correctly -1c. LOC Commands 0 - Performs BOTH tasks correctly -2. Best Gaze 0 - Normal -3. Visual 0 - No visual loss -4. Facial Palsy 0 - Normal symmetrical movements -5a. Left Arm 0 - No drift; arm holds 90 ( or 45) degrees for full 10 seconds -5b. Right Arm 0 - No drift; arm holds 90 ( or 45) degrees for full 10 seconds -6a. Left Leg 1 - Drift; leg falls by the end of 5- seconds, but does not hit bed -6b. Right Leg 1 - Drift; leg falls by the end of 5- seconds, but does not hit bed -7. Limb Ataxia 0 - Absent -8. Sensory 0 - Normal; no sensory loss -9. Best Language 1 - Mild-to- moderate aphasia; -10. Dysarthria 1 = Mild-to- moderate dysarthria; -11. Extinction and Inattention 0 - No abnormality -Total 5 Query Text:A score of 0 is normal or asymptomatic. Total possible score is 42 . ED: Notify Physician for NIHSS increase by > / = 3 points. Inpatient: RN or Physician to activate a stroke alert for NIHSS increase of > / = 3 points. Coma Scale [Assess] -Eye Opening Spontaneous -Motor Obeys Commands -Verbal Confused [Total] -Coma Scale Total 14
--- OUTSIDE RECORDS SUMMARY | 2025-04-15 23:41 | XMS RPT_ITS | CCD ---
Author Organization [facility] Care Team Providers Care Food Technician Name Role Phone Anuel Rodriges MD Unavailable Evelia Maya Unavailable Unavailable Dorinda Gavin Unavailable Unavailable CARLOZ RAY Unavailable Unavailable CARLOZ RAY Unavailable Unavailable Mike Solorzano Unavailable Unavailable CARLOZ RAY Unavailable Unavailable CARLOZ RAY Unavailable Unavailable Mike Solorzano Unavailable Unavailable KAVON ALCALA Referring Unavailable Anuel Rodriges MD Unavailable Aaron Solorzano Primary Care Provider RASHAD RUIZ, AARON ORTEGA Primary Care Physicia n Rashad RUIZ, Aaron Powers Primary Care Provider Dr. Mike Solorzano Primary Care Provider Dr. Mike Solorzano Referring Provider Belen MIRANDA, PA Jinny Hooper Attending Provider Rashad RUIZ, Aaron Powers Primary Care Provider Rashad RUIZ, Aaron Powers Primary Care Provider [phone] Rashad RUIZ, Aaron Powers Primary Care Provider Dr. Mike Solorzano Primary Care Provider Dr. Alex Pacheco Attending Provider Rashad RUIZ, Aaron Powers Primary Care Provider [phone] [place]cca CONSOLE ATTENDANT.CLIENT SERVICES MANAGER, Daxa Unavailable Dr. Mike Solorzano MD Primary Care Provider Dr. Mike Solorzano MD Referring Provider Taiwo RUIZ, Dr. Velasco Attending Provider Taiwo RUIZ, Dr. Velasco Referring Provider Rashad RUIZ, Dr. Mckeon Attending Provider Rashad RUIZ, Dr. Mckeon Attending Provider Kontak, Mike Primary Care Unavailable Kontak, Mike Attending Unavailable Kontak, Mike Referring Unavailable Taiwo, Rod Attending Unavailable Kontak, Mike Referring Unavailable Kontak, Mike Primary Care Unavailable Leyva, Liz Attending Unavailable Kontak, Mike Primary Care Unavailable Kontak, Mike Referring Unavailable Kontak, Mike Primary Care Unavailable Taiwo, Rod Attending Unavailable Taiwo, Rod Attending Unavailable Kontak, Mike Primary Care Unavailable Kontak, Mike Referring Unavailable Taiwo, Rod Attending Unavailable Taiwo, Rod Referring Unavailable Kontak, Mike Primary Care Unavailable Taiwo, Rod Referring Unavailable Kontak, Mike Primary Care Unavailable Taiwo, Rod Attending Unavailable Leyva, Liz Attending Unavailable Lyeva, Liz Referring Unavailable Kontak, Mike Primary Care Unavailable Kontak, Mike Primary Care Unavailable Lucy Velsaco Attending Unavailable Lucy Velasco Referring Unavailable DAXA WING Attending Unavailable KONTAK, AARON R Primary Care Unavailable KONTAK, AARON R Primary Care Unavailable KONTAK, AARON R Primary Care Unavailable LISA QUINTANILLA Attending Unavailable KONTAK, AARON R Attending Unavailable SELF Referring Unavailable KONTAK, AARON R Primary Care Unavailable LISA QUINTANILLA Referring Unavailable KONTAK, AARON R Primary Care Unavailable KONTAK, AARON R Attending Unavailable KONTAK, AARON R Referring Unavailable KONTAK, AARON R Primary Care Unavailable KONTAK, AARON R Primary Care Unavailable Rashad RUIZ, Dr. Mckeon Primary Care Provider Taiwo RUIZ, Dr. Velasco Attending Provider Taiwo RUIZ, Dr. Velasco Referring Provider Rashad RUIZ, Dr. Mckeon Referring Provider NP. Lucy Velasco Attending Provider NP. Lucy Velasco Referring Provider Rajeev RUIZ, Dr. Tello Emergency Provider [phone] Joe RUIZ, Dr. Cazares Admit Provider [phone] Joe RUIZ, Dr. Cazares Attending Provider [phone] Allergies Allergy Classification Reported Allergen(s) Allergy Type Date of Onset Reaction(s) Facility (20 sources) PSEUDOEPHEDRINE -GUAIFENESIN; Translations: [PSEUDOEPHEDRIN E-GUAIFENESIN] Propensity to adverse reactions (disorder) 7 Other (See Comments), Intolerance [facility] Medications Current Medications Medication Drug Class(es) Dates Sig (Normalized) Sig (Original) Acetaminophen (2 sources) Start: 05-30-2020 acetaminophen (TYLENOL) tablet 650 mg Start: 05-08-2020 take 1000 mg by mout h every eight hours, then take 4000 mg by mouth every twenty-four hours 1,000 mg, Oral, EVERY 8 HOURS, First dose on Jordana 05/08/20 at 1230 Maximum dose of acetaminophen is 4000 mg from all sources in 24 hours. Post-op acetaminophen 325 mg / oxyCODONE hydrochloride 5 mg oral tablet (15 sources) Opioid Agonist Start: 06-02-2020 End: 06-09-2020 take 1 tablet by mouth every six hours as needed for pain oxyCODONE-acetaminophen (PERCOCET) 5-325 MG per tablet Indications: Other acute pericarditis , S/P AVR Take 1 tablet by mouth every 6 hours as needed for Pain for up to 7 days. 21 tablet 0 06/02/2020 06/09/2020 Active Start: 05-30-2020 oxyCODONE-acet aminophen (PERCOCET) 5-325 MG per tablet 1 tablet Start: 03-20-2017 End: 03-25-2017 Oxycodone-Acetaminophen 1 TA BLET tablet Discontinued 1 - 2 {tbl} PO EVERY 4 HOURS NEEDED as needed for Pain March 20, 2017 12:00am March 25, 2017 3:26pm Start: 03-20-2017 End: 03-25-2017 take 1 tablet by mouth every four hours as needed Oxycodone-Acetaminophen Discontinued 1 - 2 TABLET PO EVERY 4 HOURS NEEDED March 20, 2017 12:00am March 25, 2017 3:26pm Start: 08-02-2014 End: 08-12-2014 Oxycodone-Acetaminophen 1 TA BLET tablet Discontinued 1 - 2 {tbl} PO EVERY 6 HOURS NEEDED as needed for PAIN 1 0 August 02, 2014 1:00am August 12, 2014 9:31am Start: 08-02-2014 End: 08-12-2014 take 1 tablet by mouth every six hours as needed Oxycodone-Acetaminophen Discontinued 1 - 2 TABLET PO EVERY 6 HOURS NEEDED August 02, 2014 1:00am August 12, 2014 9:31am amoxicillin 500 mg oral capsule (20 sources) Penicillin-class Antibacterial Start: 07-14-2023 End: 01-28-2025 amoxicillin (AMOXIL) 500 mg capsule Take 4 capsules by mouth prior to dental procedure. 4 capsule 1 01/29/2025 Active Start: 11-13-2014 take 4 capsules by mouth once AMOXICILLIN 500 MG CAPS 4 po 1hr prior to procedure AMOXICILLIN [id number] Nabor Mcfarland Comment on above: Take 4 capsules by m outh prior to dental procedure. aspirin (20 sources) Nonsteroidal Anti-inflammatory Drug Start: 10-15-2021 aspirin 81 mg oral delayed release tablet Dose : 81 mg = 1 tab(s), Oral, Daily, 0 Refill(s) Start Date: 10/15/21 Status: Ordered Start: 05-31-2020 aspirin EC tab let 325 mg Start: 04-25-2017 aspirin, enter ic coated (ADULT ASPIRIN EC LOW STRENGTH) 81 mg EC tablet Take 1 tablet by mouth every 48 hours. 04/25/2017 Active Start: 11-21-2016 take 1 tablet by eliana th once daily Aspirin 81 MG tablet,chewable Active 81 mg PO DAILY November 21, 2016 12:00am heart health Start: 04-23-2015 End: 04-23-2015 take 1 tablet by mouth twice daily at mealtime Aspirin 325 MG tablet Discontinued 325 mg PO TWICE DAILY WITH MEALS 60 0 April 23, 2015 12:00am April 23, 2015 11:17am Start: 01-11-2014 End: 05-31-2020 take 81 mg by mouth once daily 81 mg, Oral, DAILY, Fir st dose on Tue05/30/20 at 0900 Do not crush or break. Start: 01-11-2014 take 1 tablet by eliana th once daily ADULT ASPIRIN EC LOW STRENGTH 81 MG TBEC One tablet by mouth daily ASPIRIN [id number] Nabor Mcfarland Start: 11-22-2013 End: 04-23-2015 take 1 tablet by mouth once daily Aspirin 81 MG Tab.Chew Discontinued 81 mg PO DAILY@0800 November 22, 2013 12:00am April 23, 2015 7:03am Comment on above: Take 1 tablet by eliana th every 48 hours. atorvastatin 20 mg oral tablet (20 sources) HMG-CoA Reductase Inhibitor Start: End: take 1 tablet by mouth at bedtime Atorvastatin 20 mg tablet Active 20 mg PO AT BEDTIME December 22, 2020 12:00am Start: 09-09-2020 End: 12-22-2020 take 2 tablets by mouth once daily Atorvastatin 10 mg tablet Discontinued 20 mg PO DAILY September 09, 2020 9:29am December 22, 2020 11:24am Start: 09-09-2020 End: 12-22-2020 take 20 mg by mouth once daily Atorvastatin Discontinu ed 20 MG PO DAILY September 09, 2020 9:29am December 22, 2020 11:24am Start: 06-29-2020 End: 09-09-2020 take 5 mg by mouth once daily Atorvastatin 10 MG table t Discontinued 5 mg PO DAILY June 29, 2020 12:45pm September 09, 2020 9:30am Start: 06-29-2020 End: 09-09-2020 take 5 mg by mouth once daily Atorvastatin Discontinue d 5 MG PO DAILY June 29, 2020 12:45pm September 09, 2020 9:30am Start: 06-17-2020 End: 06-29-2020 take 1 tablet by mouth once daily Atorvastatin 10 mg tablet Discontinued 10 mg PO DAILY 1 June 27, 2020 12:00am June 29, 2020 12:45pm Start: 06-09-2020 End: 06-27-2020 take 1 tablet by mouth at bedtime Atorvastatin 80 mg tablet Discontinued 80 mg PO AT BEDTIME June 09, 2020 12:00am June 27, 2020 3:55pm Start: 05-09-2020 take 80 mg by mouth once daily 80 mg, Oral, NIGHTLY, First dose on Tue05/30/20 at 2100 Start: 01-11-2014 End: 06-09-2020 take 1 tablet by mouth at breakfast Atorvastatin 20 MG tablet Discontinued 20 mg PO WITH BREAKFAST November 21, 2016 12:00am March 13, 2020 9:02am cholesterol Comment on above: Take 1 tablet by eliana th once daily. celecoxib 200 mg oral capsule (20 sources) Nonsteroidal Anti-inflammatory Drug Start: 06-27-2020 End: 11-02-2024 take 1 capsule by mouth twice daily Celecoxib (Celebrex) 200 mg capsule Active 200 mg PO TWICE A DAY June 27, 2020 12:00am Start: 05-09-2020 celecoxib (NATALIE EBREX) capsule 100 mg Start: 01-02-2018 End: 02-28-2020 take 1 capsule by mouth twice daily as needed for pain Celecoxib 200 MG capsule Discontinued 200 mg PO TWICE A DAY as needed for Pain 0 0 January 03, 2018 2:39pm February 28, 2020 11:09am Comment on above: Take 1 capsule by mo [facility] twice daily. Take with food. CPAP (20 sources) Start: 11-29-2018 CPAP Indications: Obstructive sleep apnea on CPAP Initiate CPAP @ 7 cm of water with humidification. Mask (per patient preference) optional chin strap (if indicated) , filters, tubing, humidifier and lifetime supplies. 1 Device 11/29/2018 Active Start: 11-29-2018 CPAP Indicatio ns: Obstructive sleep apnea on CPAP Initiate CPAP @ 7 cm of water with humidification. Mask (per patient preference) optional chin strap (if indicated) , filters, tubing, humidifier and lifetime supplies. 1 Device 0 11/29/2018 Active Comment on above: Initiate CPAP @ 7 cm of water with humidification. Mask (per patient preference) optional chin strap (if indicated) , filters, tubing, humidifier and lifetime supplies. docusate sodium 50 mg / sennosides, fpc 8.6 mg oral tablet (1 source) Start: 0 take 2 tablets by mouth once daily 2 tablet, Oral, NIGHTLY, First dose on Jordana 05/08/20 at 2100, Post-op gabapentin 400 mg oral capsule (20 sources) Anti-epileptic Agent Start: 4 End: 5 take 1 capsule by mouth twice daily gabapentin (NEURONTIN) 400 mg capsule Take 1 capsule by mouth two times a day for 180 days. 180 capsule 1 01/29/2025 07/28/2025 Active Start: 02-28-2020 End: 10-16-2024 take 1 capsule by mouth three times daily Gabapentin 400 mg capsule Active 400 mg PO THREE TIMES A DAY February 28, 2020 12:00am Start: 03-22-2017 GABAPENTIN CAP S 500 mg 3 times daily GABAPENTIN CAPS [id number] Dorinda Aponte Leslye Start: 03-22-2017 GABAPENTIN CAP S 500 mg 3 times daily GABAPENTIN CAPS [id number] Dorinda Aponte Leslye Start: 11-21-2016 End: 02-28-2020 take 1 capsule by mouth three times daily at mealtime Gabapentin 300 MG capsule Discontinued 300 mg PO 3 TIMES DAILY WITH MEALS November 21, 2016 12:00am February 28, 2020 11:07am nerve pain Comment on above: Take 1 (ONE) capsule by mouth three times daily Take 400 mg by mouth three times daily. Take 1 capsule by [facility] three times daily for 90 days. Take 1 capsule by [facility] three times a day for 180 days. glucagon (rdna) 1 mg injection (2 sources) Antihypoglycemic Agent Start: 05-30-2020 glucagon (rDNA) injection 1 mg Start: 05-08-2020 take 1 mL intravenou s route every hour 1 mg, Intramuscular, PRN, Low blood sugar, Blood glucose less than 70 mg/dL and patient NOT ALERT or NPO and does not have IV access., Starting Jordana 05/08/20 at 1213 After administration, attempt intravenous access and start D5W at 100 mL/hr. Repeat blood glucose in 15 minutes x2 and notify provider. 150 ml glucose 50 mg/ml injection (6 sources) Start: 05-30-2020 glucose (GLUTO SE) 40 % oral gel 15 g Start: 05-30-2020 dextrose 50 % IV solution Start: 05-30-2020 dextrose 5 % s olution Start: 05-08-2020 15 g, Oral, DE N, Low blood sugar, Starting Jordana 05/08/20 at 1213 If blood glucose less than 50 mg/dL and patient ALERT and TOLERATING PO, give 2 tubes glucose gel. If blood glucose less than 70 mg/dL and patient ALERT and TOLERATING PO, give 1 tube glucose gel. Repeat blood glucose in 15 minutes. If blood glucose is less than 70 mg/dL, repeat treatment and recheck blood glucose in 15 minutes x2 and notify provider. Post-op Start: 05-08-2020 12.5 g, Intrav enous, PRN, Low blood sugar, Blood glucose less than 70 mg/dL and patient NOT ALERT or NPO., Starting Jordana 05/08/20 at 1213 If patient does not respond within 5 minutes, repeat dose x1. Start D5W at 100 mL/hour until ordering provider can be reached. Repeat blood glucose in 15 minutes. If blood glucose is less than 70 mg/dL, repeat treatment and recheck blood glucose in 15 minutes x2. If using Glucostabilizer, dose as instructed per system. Post-op Start: 05-08-2020 100 mL/hr, Int ravenous, at 100 mL/hr, PRN, Low blood sugar, Starting Jordana 05/08/20 at 1213 Start infusion following administration of dextrose 50% or glucagon. Post-op 1 ml heparin sodium, porcine 5000 unt/ml prefilled syringe (1 source) Unfractionated Heparin, Anti-coagulant Start: 05-30-2020 heparin (porcine) injection 5,000 Units hydroxychloroquine sulfate 200 mg oral tablet (20 sources) Antirheumatic Agent Start: 11-22-2013 End: 07-09-2024 take 1 tablet by mouth once daily Hydroxychloroquine 200 mg tablet Active 200 mg PO DAILY February 28, 2020 12:00am Comment on above: Take 1 tablet by eliana th once daily. Take 1 tablet by eliana th every afternoon. ibuprofen 400 mg oral tablet (2 sources) Nonsteroidal Anti-inflammatory Drug Start: 06-02-2020 take 1 tablet by mouth three times daily before mealtime ibuprofen (ADVIL;MOTRIN) 400 MG tablet Take 1 tablet by mouth 3 times daily (before meals) 120 tablet 3 06/02/2020 Active Start: 05-31-2020 ibuprofen (ADV IL;MOTRIN) tablet 400 mg 3 ml insulin detemir 100 unt/ml pen injector (20 sources) Insulin Analog Start: 05-31-2024 Insulin Detemi r U-100 (Levemir Flextouch U100 Insulin) 100 unit/mL (3 mL) insulin pen Active 10 U SC AT BEDTIME as needed May 31, 2024 1:15pm Start: 10-15-2021 inject 1 dose by sub cutaneous injection once daily at bedtime Levemir 100 units/mL 10 mL vial Dose : 14 unit(s) =, Subcutaneous, qHS, 0 Refill(s) Start Date: 10/15/21 Status: Ordered Start: 01-21-2021 End: 10-25-2023 inject 14 [IU] by subcutaneous injection once daily at bedtime insulin detemir U-100 (LEVEMIR U-100 INSULIN) 100 unit/mL injection Indications: Controlled type 2 diabetes mellitus with diabetic neuropathy, with long-term current use of insulin (HCC) Inject 14 Units subcutaneously daily at bedtime. 10 mL 0 10/17/2023 10/25/2023 Discontinued (Cost of medication) Start: 06-27-2020 End: 05-31-2024 Insulin Detemir U-100 (Levem ir Flextouch U100 Insulin) 100 unit/mL (3 mL) insulin pen Discontinued 15 U SC AT BEDTIME June 27, 2020 3:59pm May 31, 2024 1:18pm Start: 06-17-2020 insulin detemi r (LEVEMIR) 100 UNIT/ML injection vial Inject 10 Units into the skin nightly 1 vial 3 06/17/2020 Active Start: 06-11-2020 End: 06-27-2020 Insulin Detemir U-100 (Levem ir Flextouch U-100 Insuln) 100 unit/mL (3 mL) insulin pen Discontinued 14 U SC AT BEDTIME June 11, 2020 12:00am June 27, 2020 4:01pm Start: 06-02-2020 insulin detemi r (LEVEMIR) 100 UNIT/ML injection vial Inject 10 Units into the skin nightly 1 vial 3 06/02/2020 Active End: 06-02-2020 insulin detemir (LEVEMIR) 10 0 UNIT/ML injection vial Inject 28 Units into the skin nightly Taking 14 units since 05/25 per self 0 06/02/2020 Discontinued (REORDER) Comment on above: Inject 14 Units subc utaneously daily at bedtime. insulin lispro 100 unt/ml injectable solution (20 sources) Insulin Analogue Start: 05-31-2020 insulin lispro (HUMALOG) injection vial 0-3 Units Start: 05-12-2020 insulin lispro (HUMALOG) injection vial 7 Units Start: 05-11-2020 End: 05-12-2020 insulin lispro (HUMALOG) inj ection vial 5 Units Start: 05-10-2020 End: 05-11-2020 insulin lispro (HUMALOG) inj ection vial 2 Units Start: 05-09-2020 insulin lispro (HUMALOG) injection vial 0-6 Units Start: 04-14-2015 End: 04-23-2015 inject 12 [IU] by subcutaneous injection three times daily Insulin Lispro (Humalog U-100 Insulin) 100 UNIT/ML Ml Discontinued 12 U SQ THREE TIMES A DAY April 14, 2015 12:00am April 23, 2015 11:18am Start: 01-11-2014 End: 05-18-2017 HUMALOG 100 UNIT/ML SOLN Inj ect 12 units subcutaneously three times daily before meals INSULIN LISPRO (HUMAN) [id number] Nabor Mcfarland Start: 01-11-2014 inject 12 [IU] by [place] bcutaneous injection three times daily before mealtime HUMALOG 100 UNIT/ML SOLN Inject 12 units subcutaneously three times daily before meals INSULIN LISPRO (HUMAN) [id number] Nabor Mcfarland Start: 01-11-2014 HUMALOG 100 UN IT/ML SOLN Inject 12 units subcutaneously three times daily before meals INSULIN LISPRO (HUMAN) [id number] Nabor Mcfarland losartan potassium 25 mg oral tablet (3 sources) Angiotensin 2 Receptor Maggy Start: 05-31-2024 take 1 tablet by mouth once daily Losartan 25 mg tablet Active 25 mg PO daily 90 May 31, 2024 12:00am Melatonin (2 sources) Start: 05-30-2020 melatonin ER tablet 2 mg Start: 05-09-2020 End: 05-09-2020 melatonin tablet 3 mg metFORMIN hydrochloride 1000 mg oral tablet (20 sources) Biguanide Start: 07-13-2023 End: 03-08-2025 take 1 tablet by mouth twice daily at mealtime metFORMIN (GLUCOPHAGE) 1,000 mg tablet Indications: Controlled type 2 diabetes mellitus with diabetic neuropathy, with long-term current use of insulin (HCC) Take 1 tablet by mouth two times a day with meals. 180 tablet 1 03/08/2025 Active Start: 01-27-2023 take 1 tablet by eliana twice daily at mealtime metFORMIN (GLUCOPHAGE) 1,000 mg tablet Indications: Controlled type 2 diabetes mellitus with diabetic neuropathy, with long-term current use of insulin (HCC) Take 1 tablet by mouth twice daily with meals. 180 tablet 1 01/27/2023 Active Start: 01-08-2021 End: 01-11-2022 take 1 tablet by mouth twice daily at mealtime metFORMIN (GLUCOPHAGE) 1,000 mg tablet Indications: Controlled type 2 diabetes mellitus with diabetic neuropathy, with long-term current use of insulin (HCC) Take 1 tablet by mouth twice daily with meals. 60 tablet 11 01/11/2022 Active Start: 03-22-2017 End: 06-02-2020 take 1 tablet by mouth twice daily METFORMIN HCL 1000 MG TABS One tablet by mouth twice daily METFORMIN HCL [id number] Evelia Maya Start: 11-21-2016 take 2 tablets by mo uth twice daily at mealtime Metformin 500 MG tablet Active 1000 mg PO TWICE DAILY WITH MEALS November 21, 2016 12:00am diabetes Start: 11-21-2016 take 1000 mg by mout h twice daily at mealtime Metformin Active 1000 MG PO TWICE DAILY WITH MEALS November 21, 2016 12:00am Start: 01-11-2014 End: 05-18-2017 METFORMIN HCL 500 MG TABS 1 tablet 3 times a day METFORMIN HCL [id number] Dorinda Gavin Comment on above: Take 1 tablet by eliana th twice daily with meals. 24 hr metoprolol succinate 100 mg extended release oral tablet (20 sources) beta-Adrenergic Maggy Start: 04-15-2025 take 2 tablets by mouth once daily Metoprolol Succinate 100 mg tablet extended release 24 hr Active 50 mg PO DAILY April 15, 2025 12:00am Start: 05-31-2024 take 1 tablet by eliana th once daily Metoprolol Succinate 50 mg tablet extended release 24 hr Active 50 mg PO daily May 31, 2024 12:00am Start: 10-15-2021 Metoprolol Suc cinate ER 100 mg oral TABLET extended release Dose : 50 mg = 0.5 tab(s), Oral, qDay, 0 Refill(s) Start Date: 10/15/21 Status: Ordered Start: 09-22-2021 End: 09-14-2025 take 0.5 tablet by mouth once daily metoprolol succinate ER (TOPROL XL) 100 mg Indications: Essential hypertension, benign Take 0.5 tablets by mouth once daily. 45 tablet 3 09/14/2024 09/14/2025 Active Start: 12-22-2020 End: 05-31-2024 Metoprolol Tartrate 25 mg ta blet Discontinued 12.5 mg PO TWICE A DAY December 22, 2020 11:25am May 31, 2024 1:17pm Start: 12-22-2020 take 12.5 mg by mout h twice daily Metoprolol Tartrate Active 12.5 MG PO TWICE A DAY December 22, 2020 11:25am Start: 09-09-2020 End: 09-09-2020 take 2 tablets by mouth once daily Metoprolol Tartrate 25 mg tablet Discontinued 50 mg PO DAILY September 09, 2020 9:28am September 09, 2020 9:50am Start: 09-09-2020 End: 09-09-2020 take 50 mg by mouth once daily Metoprolol Tartrate Dis continued 50 MG PO DAILY September 09, 2020 9:28am September 09, 2020 9:50am Start: 05-19-2020 End: 12-22-2020 take 1 tablet by mouth twice daily Metoprolol Tartrate 25 mg tablet Discontinued 25 mg PO TWICE A DAY September 09, 2020 9:50am December 22, 2020 11:25am Start: 05-14-2020 take 0.5 tablet by m outh twice daily metoprolol tartrate (LOPRESSOR) 25 MG tablet Take 0.5 tablets by mouth 2 times daily 60 tablet 3 05/14/2020 Active Start: 05-11-2020 metoprolol tar trate (LOPRESSOR) tablet 12.5 mg Start: 05-10-2020 End: 05-11-2020 metoprolol tartrate (LOPRESS OR) tablet 25 mg Start: 11-21-2016 End: 06-09-2020 take 2 tablets by mouth twice daily Metoprolol Succinate 50 MG tablet extended release 24 hr Discontinued 25 mg PO TWICE A DAY November 21, 2016 12:00am June 09, 2020 5:17pm HTn Start: 11-21-2016 End: 06-09-2020 take 25 mg by mouth twice daily Metoprolol Succinate Discontinued 25 MG PO TWICE A DAY November 21, 2016 12:00am June 09, 2020 5:17pm Start: 01-11-2014 TOPROL XL 100 MG [id number] Take 0.5 tab once daily METOPROLOL SUCCINATE [id number] Nabor Mcfarland Start: 01-11-2014 TOPROL XL 100 MG [id number] Take 0.5 tab once daily METOPROLOL SUCCINATE [id number] Nabor Mcfarland End: 05-14-2020 take 1 tablet by mouth once daily metoprolol succinate (TOPROL XL) 50 MG extended release tablet Take 50 mg by mouth daily 0 05/14/2020 Discontinued (Stop Taking at Discharge) Comment on above: TAKE 1/2 (ONE-HALF) OF A TABLET EVERY DAY Take 0.5 tablets by mouth once daily. Multivitamin preparation (6 sources) Start: 2 take 1 tablet by mouth once daily Multivitamin Dose = 1 tab(s), Oral, Daily, Centrum Adults 50+, 0 Refill(s) Start Date: 10/15/21 Status: Ordered Start: 10-15-2021 take 1 tablet by eliana th once daily Multivitamin Dose = 1 tab(s), Oral, Daily, 0 Refill(s) Start Date: 10/15/21 Status: Ordered Start: 06-09-2020 take 1 tablet by eliana th once daily Multivitamin Active 1 TABLET PO DAILY June 09, 2020 12:00am Multivitamin tablet (3 sources) Start: 06-09-2020 Multivitamin tablet Active 1 {tbl} PO DAILY June 09, 2020 12:00am piperacillin 4000 mg / tazobactam 500 mg injection (1 source) Penicillin-clas s Antibacterial, beta Lactamase Inhibitor Start: 05-30-2020 piperacillin-tazob actam (ZOSYN) 4.5 g in dextrose 100 mL IVPB extended infusion (premix) polyethylene glycol 3350 42653 mg powder for oral solution (3 sources) Osmotic Laxative Start: 05-30-2020 End: 07-02-2020 take 17 g by mouth once daily as needed for constipation polyethylene glycol (GLYCOLAX) 17 g packet Take 17 g by mouth daily as needed for Constipation 527 g 1 06/02/2020 07/02/2020 Active Start: 05-08-2020 17 g, Oral, DA MANJINDER, First dose on Jordana 05/08/20 at 1230, Post-op microencapsulated potassium chloride 10 meq extended release oral tablet (2 sources) Start: 05-08-2020 20 mEq, Oral, PRN, hypokalemia, Starting Jordana 05/08/20 at 1213 If patient is intubated or not tolerating PO use PRN IV replacement protocol Potassium level Dose < 3.0 = Give 20 mEq x 3 doses 3.0-3.6 = Give 20 mEq x 2 doses Recheck potassium level 2 hour after replacement given, place order for lab under [place] If potassium level < 3 after 1st replacement: Call surgeon. Do not crush or break. Post-op Start: 05-08-2020 20 mEq, Intrav enous, at 50 mL/hr, Administer over 60 Minutes, PRN, Other, hypokalemia, Starting Jordana 05/08/20 at 1213 Via central line - do not use if urine output below 30 mL/hr or if patient is on total parental nutrition, peritoneal or hemodialysis. Potassium Level Dose: Less than or equal to 3.5-Give 20mEq x 2 doses. Less than or equal to 2-Call provider. Repeat potassium level 2 hour post-infusion and follow protocol as indicated. Post-op Promethazine (1 source) Phenothiazine Start: 05-30-2020 promethazine ( PHENERGAN) tablet 12.5 mg 3 ml sodium chloride 9 mg/ml injection (15 sources) Start: 05-30-2020 sodium chlorid e flush 0.9 % injection 10 mL Start: 05-29-2020 End: 12-22-2020 Sodium Chloride 1 SPRAY aerosol,spray Discontinued 1 NMA NASAL NEEDED as needed for Congestion May 29, 2020 12:00am December 22, 2020 11:25am Start: 05-29-2020 End: 12-22-2020 Sodium Chloride Discontinued 1 SPRAY NASAL NEEDED May 29, 2020 12:00am December 22, 2020 11:25am Start: 05-19-2020 sodium chlorid e (ALTAMIST SPRAY) 0.65 % nasal spray 1 spray by Nasal route as needed for Congestion 1 Bottle 3 05/19/2020 Suspended Start: 05-11-2020 End: 05-12-2020 0.9 % sodium chloride bolus Start: 05-08-2020 10 mL, Intrave nous, EVERY 12 HOURS SCHEDULED (2 times per day), First dose on Jordana 05/08/20 at 2100, Post-op Start: 05-08-2020 take 10 mL intravenous route o nce 10 mL, Intravenous, PRN, Line Care, Starting Jordana 05/08/20 at 1213 After every IV line use Post-op Start: 05-08-2020 End: 05-12-2020 Intravenous, at 20 mL/hr, CONTINUOUS, Starting Jordana 05/08/20 at 1230 20 ml/hr to SP(introducer) and WT on [place] Perez Catheter; once [place] discontinued run at 20 ml/hr through SP(introducer) Post-op sulfamethoxazole 800 mg / trimethoprim 160 mg oral tablet (20 sources) Dihydrofolate Reductase Inhibitor Antibacterial, Sulfonamide Antimicrobial Start: 07-01-2020 End: 07-11-2020 take 1 tablet by mouth twice daily sulfamethoxazole-trimethoprim (BACTRIM DS;SEPTRA DS) 800-160 MG per tablet Take 1 tablet by mouth 2 times daily for 10 days 20 tablet 0 07/01/2020 07/11/2020 Active Start: 03-22-2017 End: 03-22-2017 BACTRIM TABS 2016 SULFAMETHOXAZOLE- TRIMETHOPRIM TABS [id number] Anuel Rodriges MD Start: 03-22-2017 End: 03-22-2017 BACTRIM TABS 2016 SULFAMETHOXAZOLE- TRIMETHOPRIM TABS [id number] Anuel Rodriges MD Start: 03-22-2017 BACTRIM TABS 2 SULFAMETHOXAZOLE-TRIMETHOPRIM TABS [id number] Dorinda Gavin tamsulosin hydrochloride 0.4 mg oral capsule (20 sources) alpha-Adrenergic Maggy Start: 01-11-2014 End: 10-25-2025 take 1 capsule by mouth at bedtime Tamsulosin 0.4 MG capsule Active 0.4 mg PO AT BEDTIME November 21, 2016 12:00am BPH Comment on above: TAKE 1 CAPSULE DAILY AT BEDTIME Take 1 capsule by mo [facility] daily at bedtime. traMADol hydrochloride 50 mg oral tablet (20 sources) Opioid Agonist Start: 04-01-2025 End: 05-01-2025 take 1 tablet by mouth every six hours as needed for pain traMADol (ULTRAM) 50 mg tablet Indications: Lumbosacral neuritis , Lumbar spondylosis Take 1 tablet by mouth every 6 hours as needed for pain for up to 30 days. 120 tablet 04/01/2025 05/01/2025 Active Start: 05-12-2020 traMADol (ULTR AM) tablet 25 mg Start: 04-14-2015 End: 03-22-2025 take 1 tablet by mouth every six hours as needed for pain traMADol (ULTRAM) 50 mg tablet Indications: Lumbosacral neuritis , Lumbar spondylosis Take 1 tablet by mouth every 6 hours as needed for pain for up to 30 days. 120 tablet 02/20/2025 03/22/2025 Active Comment on above: Take 1 tablet by eliana th every 6 hours as needed for up to 30 days. triamcinolone acetonide 1 mg/ml topical cream (2 sources) Corticosteroid Start: 04-01-2025 End: 04-15-2025 triamcinolone acetonide (KENALOG) 0.1 % cream Indications: Contact dermatitis due to plant Apply to affected area two times a day for 14 days. 30 g 04/01/2025 04/15/2025 Active Start: 05-19-2024 End: 05-29-2024 triamcinolone acetonide (COMPA ALOG) 0.1 % cream Indications: Rash Apply 1 application to affected area two times a day for 10 days. Apply to affected area. Location: arms and buttock rash 30 g 05/19/2024 05/29/2024 Active vancomycin (VANCOCIN) 1,500 mg in dextrose 5 % 250 mL IVPB (1 source) Start: 06-02-2020 vancomycin (VA NCOCIN) 1,500 mg in dextrose 5 % 250 mL IVPB Completed/Discontinued Medications Medication Drug Class(es) Dates Sig (Normalized) Sig (Original) acetaminophen 325 mg / HYDROcodone bitartrate 5 mg oral tablet (6 sources) Opioid Agonist Start: 05-12-2021 End: 05-25-2021 Hydrocodone-Acetami nophen 1 TABLET tablet Discontinued 1 {tbl} PO EVERY 6 HOURS NEEDED as needed for Pain 10 3 0 May 12, 2021 May 25, 2021 2:36pm Strain of muscle, fascia and tendon of left hip, initial encounter Strain of muscle, fascia and tendon of left hip, initial encounter Start: 05-12-2021 End: 05-25-2021 take 1 tablet by mouth every six hours as needed Hydrocodone-Acetaminophen Discontinued 1 TABLET PO EVERY 6 HOURS NEEDED 10 3 May 12, 2021 May 25, 2021 2:36pm 20 ml albumin human, fpc 250 mg/ml injection (5 sources) Human Serum Albumin Start: 05-12-2020 End: 05-12-2020 albumin human 25 % IV solution 25 g Start: 05-09-2020 End: 05-09-2020 albumin human 25 % IV soluti on 25 g Start: 05-08-2020 End: 05-09-2020 albumin human 25 % IV soluti on 50 g Start: 05-08-2020 End: 05-08-2020 25 g, Intravenous, PRN, Othe r, first fluid bolus challenge PRN: PAD below goal (18) and Low CI (less than 2.0) and/or Low BP (less than 90 SBP and/or less than 60 MAP) and/or Low urine output (less than 30ml/hr) per hemodynamic goals, Starting Jordana 05/08/20 at 1213, For 1 dose Use if hgb greater than 7.5 and PAD below goal (18) and Low CI (less than 2.0) and/or Low BP (less than 90 SBP and/or less than 60 MAP) and/or Low urine output (less than 30ml/hr) per hemodynamic goals If hemodynamic goals unattained, proceed to second fluid bolus challenge. If hgb less than 7.5 notify surgeon for orders. Post-op [id number] 200 actuat albuterol 0.09 mg/actuat metered dose inhaler (18 sources) beta2-Adrenergic Agonist Start: 10-15-2019 End: 08-25-2022 take 2 puff(s) by inhalation every four hours as needed albuterol HFA (PROAIR HFA) 90 mcg/actuation inhaler Inhale 2 Puffs as instructed every 4 hours as needed. 1 Inhaler 0 10/15/2019 08/25/2022 Discontinued (Course of therapy completed) Comment on above: Inhale 2 Puffs as in structed every 4 hours as needed. amiodarone hydrochloride 200 mg oral tablet (11 sources) Antiarrhythmic Start: 05-14-2020 End: 06-27-2020 take 1 tablet by mouth once daily Amiodarone 200 MG tablet Discontinued 200 mg PO DAILY May 29, 2020 12:00am June 27, 2020 3:55pm Start: 05-13-2020 amiodarone (CO RDARONE) tablet 400 mg ascorbic acid 500 mg extended release oral capsule (17 sources) Vitamin C Start: 05-29-2020 End: 12-22-2020 take 1 capsule by mouth once daily Ascorbic Acid (Vitamin C) 500 mg capsule, extended release Discontinued 500 mg PO DAILY June 11, 2020 9:30am December 22, 2020 11:24am take 1 tablet by mouth once tej y vitamin C (ASCORBIC ACID) 500 MG tablet Take 500 mg by mouth daily 0 Active ascorbic acid 60 mg / beta carotene 5000 unt / copper sulfate 40 mg / dl-alpha tocopheryl acetate 30 unt / sodium selenite 0.04 mg / zinc oxide 40 mg oral tablet (4 sources) Vitamin C take 1 tablet by mouth once daily Multiple Vitamins-Minerals (THERAPEUTIC MULTIVITAMIN-MINERALS) tablet Take 1 tablet by mouth daily 0 Suspended benzonatate 100 mg oral capsule (18 sources) Non-narcotic Antitussive Start: 021 End: 022 take 1-2 capsules by mouth three times daily as needed benzonatate (TESSALON PERLES) 100 mg capsule Indications: LRTI (lower respiratory tract infection) Take 1-2 capsules by mouth three times daily as needed. 30 capsule 0 06/24/2021 08/25/2022 Discontinued (Course of therapy completed) Comment on above: Take 1-2 capsules by mouth three times daily as needed. 120 actuat budesonide 0.08 mg/actuat / formoterol fumarate 0.0045 mg/actuat metered dose inhaler (20 sources) Corticosteroid, beta2-Adrenergic Agonist Start: 014 SYMBICORT 80-4.5 MCG/ACT AERO inhale 2 puffs as instructed twice daily BUDESONIDE-FORMOTEROL FUMARATE [id number] Nabor Mcfarland Start: 01-11-2014 SYMBICORT 80-4 .5 MCG/ACT AERO inhale 2 puffs as instructed twice daily BUDESONIDE-FORMOTEROL FUMARATE [id number] Nabor Swain Bartolo calcium chloride 0.0014 meq/ ml / potassium chloride 0.004 meq/ml / sodium chloride 0.103 meq/ml / sodium lactate 0.028 meq/ml injectable solution (5 sources) Start: 05-12-2020 End: 05-12-2020 lactated ringers bolus Start: 05-08-2020 End: 05-09-2020 lactated ringers bolus calcium gluconate 2 g in dextrose 5 % 100 mL IVPB (2 sources) Start: 05-12-2020 End: 05-12-2020 calcium gluconate 2 g in dextrose 5 % 100 mL IVPB Start: 05-08-2020 2 g, Intraveno us, PRN, Starting Jordana 05/08/20 at 1213, Until Discontinued Via central line. Infuse over 2 hours, Repeat serum ionized calcium 2 hours after infusion completed. Place order for recheck under surgeon Post-op ceFAZolin 2000 mg injection (1 source) Cephalosporin Antibacterial Start: 05-08-2020 End: 05-10-2020 2 g, Intravenous, EVERY 8 HOURS, 5 doses, First dose on Jordana 05/08/20 at 1230, Last dose on Tue05/09/20 at 2030, Post-op cephalexin 500 mg oral capsule (20 sources) Cephalosporin Antibacterial Start: 10-15-2021 End: 10-22-2021 cephalexin 500 mg oral capsule Dose : 500 mg = 1 cap(s), Oral, TID, 0 Refill(s) Start Date: 10/15/21 Stop Date: 10/22/21 Status: Ordered Start: 06-29-2020 End: 09-09-2020 take 1 capsule by mouth every six hours Cephalexin 500 MG capsule Discontinued 500 mg PO EVERY 6 HOURS 40 0 June 29, 2020 12:00am September 09, 2020 9:29am Start: 03-22-2017 KEFLEX CAPS 20 14/03/25 CEPHALEXIN CAPS [id number] Dorinda Gavin Start: 03-22-2017 End: 04-13-2017 KEFLEX CAPS CEPHA LEXIN CAPS [id number] Nahomy Herbert LPN Start: 03-22-2017 End: 04-13-2017 KEFLEX CAPS CEPHA LEXIN CAPS [id number] Nahomy Herbert 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 Start: 03-22-2017 KEFLEX CAPS 20 14/03/25 CEPHALEXIN CAPS [id number] Dorinda Gavin Start: 03-15-2017 End: 03-25-2017 take 1 capsule by mouth twice daily Cephalexin (Keflex) 500 MG capsule Discontinued 500 mg PO TWICE A DAY March 15, 2017 12:00am March 25, 2017 3:25pm take 1 capsule by mo [facility] four times daily cephALEXin (KEFLEX) 500 MG capsule Take 500 mg by mouth 4 times daily 0 Active chlorhexidine gluconate 1.2 mg/ml mouthwash (2 sources) Start: 05-08-2020 End: 05-12-2020 take 15 mL by mouth twice daily 15 mL, Mouth/Throat, 2 TIMES DAILY, First dose on Jordana 05/08/20 at 1230, For 7 days Rinse and spit. Do not swallow. Post-op Start: 05-08-2020 End: 05-08-2020 chlorhexidine (PERIDEX) 0.12 % solution 15 mL colchicine 0.6 mg oral tablet (14 sources) Start: 06-27-2020 End: 09-09-2020 take 1 tablet by mouth twice daily Colchicine (Colcrys) 0.6 mg tablet Discontinued 0.6 mg PO TWICE A DAY 60 12 August 18, 2020 2:01pm September 09, 2020 10:03am Start: 05-30-2020 take 1 tablet by [facility] twice daily colchicine (COLCRYS) 0.6 MG tablet Take 1 tablet by mouth 2 times daily 30 tablet 3 06/02/2020 Active cyclobenzaprine hydrochloride 10 mg oral tablet (20 sources) Muscle Relaxant Start: 03-22-2017 CYCLOBENZAPRIN E HCL 10 MG TABS 1/2 - 1 tablet 2 times daily as needed CYCLOBENZAPRINE HCL [id number] Dorinda Gavin 100 ml dexmedetomidine 0.004 mg/ml injection (1 source) Central alpha-2 Adrenergic Agonist Start: 05-08-2020 End: 05-09-2020 dexmedetomidine (PRECEDEX) 400 mcg in sodium chloride 0.9 % 100 mL infusion diclofenac sodium 0.01 mg/mg topical gel (20 sources) Nonsteroidal Anti-inflammatory Drug Start: 03-22-2017 End: 05-18-2017 VOLTAREN 1 % GEL apply 2-3 times a day DICLOFENAC SODIUM [id number] Evelia Maya Start: 03-22-2017 VOLTAREN 1 % G EL apply 2-3 times a day DICLOFENAC SODIUM [id number] Dorinda Gavin Start: 03-22-2017 VOLTAREN 1 % G EL apply 2-3 times a day DICLOFENAC SODIUM [id number] Dorinda Gavin doxycycline hyclate 100 mg oral capsule (20 sources) Tetracycline-class Drug Start: 03-22-2017 End: 03-25-2017 take 1 capsule by mouth twice daily Doxycycline Hyclate 100 MG capsule Discontinued 100 mg PO TWICE A DAY March 22, 2017 12:00am March 25, 2017 3:25pm Start: 03-22-2017 End: 04-13-2017 take 1 tablet by mouth twice daily DOXYCYCLINE HYCLATE 100 MG TABS One tablet by mouth twice daily DOXYCYCLINE HYCLATE [id number] Anuel Rodriges MD 0.5 ml dulaglutide 3 mg/ml auto-injector (20 sources) GLP-1 Receptor Agonist Start: 05-18-2017 End: 08-25-2022 Dulaglutide 1.5 MG/0.5 ML pen injector Discontinued 1.5 mg SQ EVERY WEEK January 02, 2018 12:00am August 16, 2022 3:07pm diabetes tuesday Start: 03-15-2017 End: 03-25-2017 Dulaglutide (Trulicity) 0.75 MG/0.5 ML Pen.Injctr Discontinued 0.75 mg SQ MO March 15, 2017 12:00am March 25, 2017 3:25pm Comment on above: Inject 1.5 mg subcut aneously one time a week. 0.4 ml enoxaparin sodium 100 mg/ml prefilled syringe (8 sources) Low Molecular Weight Heparin Start: 05-30-2020 End: 05-30-2020 enoxaparin (LOVENOX) injection 40 mg Start: 05-10-2020 enoxaparin (LO VENOX) injection 40 mg Start: 08-02-2014 End: 08-12-2014 Enoxaparin 30 MG/0.3 ML syri nge Discontinued 30 mg SC DAILY@0600 1 0 August 02, 2014 1:00am August 12, 2014 10:22am use times three weeks fluticasone propionate 0.05 mg/actuat metered dose nasal spray (18 sources) Corticosteroid Start: 08-31-2019 End: 08-25-2022 take 2 spray(s) by mouth once daily fluticasone (FLONASE) 50 mcg/actuation nasal spray Indications: Viral URI with cough Use 2 Sprays in each nostril once daily. Rinse mouth after use. 1 Bottle 0 08/31/2019 08/25/2022 Discontinued (Course of therapy completed) Comment on above: Use 2 Sprays in each nostril once daily. Rinse mouth after use. 4 ml furosemide 10 mg/ml injection (2 sources) Loop Diuretic Start: 05-12-2020 End: 05-12-2020 furosemide (LASIX) injection 40 mg Start: 05-10-2020 End: 05-12-2020 furosemide (LASIX) injection 40 mg GLUCOSE BLOOD (16 sources) Start: 01-11-2014 ACCU-CHEK EJ A STRP check blood sugars 4 times daily GLUCOSE BLOOD [id number] Nabor Mcfarland GLUCOSE BLOOD (7 sources) Start: 01-11-2014 ACCU-CHEK EJ A STRP check blood sugars 4 times daily GLUCOSE BLOOD [id number] Nabor Mcfarland Start: 01-11-2014 ACCU-CHEK EJ A STRP check blood sugars 4 times daily GLUCOSE BLOOD [id number] Nabor Mcfarland insulin glargine 100 unt/ml injectable solution (20 sources) Insulin Analogue Start: 06-02-2020 End: 06-02-2020 insulin glargine (LANTUS) 100 UNIT/ML injection vial Inject 10 Units into the skin daily 1 vial 3 06/02/2020 06/02/2020 Discontinued (Stop Taking at Discharge) Start: 06-01-2020 insulin glargi ne (LANTUS) injection vial 10 Units Start: 05-31-2020 End: 06-01-2020 insulin glargine (LANTUS) injection vial 8 Units Start: 05-13-2020 insulin glargi ne (LANTUS) injection vial 18 Units Start: 05-11-2020 End: 05-12-2020 insulin glargine (LANTUS) injection vial 15 Units Start: 05-10-2020 End: 05-11-2020 insulin glargine (LANTUS) injection vial 12 Units Start: 05-09-2020 End: 05-09-2020 insulin glargine (LANTUS) injection vial 10 Units Start: 02-28-2020 End: 06-11-2020 Insulin Glargine 100 unit/mL (3 mL) insulin pen Discontinued 28 U SC AT BEDTIME February 28, 2020 11:09am June 11, 2020 9:31am diabetes Start: 01-02-2018 End: 02-28-2020 Insulin Glargine 100 UNITS/M L insulin pen Discontinued 25 U SC AT BEDTIME January 02, 2018 12:00am February 28, 2020 11:09am diabetes Start: 01-02-2018 End: 02-28-2020 Insulin Glargine Discontinue d 25 UNITS SC AT BEDTIME January 02, 2018 12:00am February 28, 2020 11:09am Start: 04-14-2015 End: 04-23-2015 inject 25 [IU] by subcutaneous injection at bedtime Insulin Glargine (Lantus U-100 Insulin) 100 UNIT/ML Ml Discontinued 25 U SQ AT BEDTIME April 14, 2015 12:00am April 23, 2015 11:17am Start: 01-11-2014 LANTUS 100 UNI T/ML SOLN inject 25 units subcutaneously every night INSULIN GLARGINE [id number] Evelia Maya Start: 01-11-2014 LANTUS 100 UNI T/ML SOLN inject 20 units subcutaneously every morning INSULIN GLARGINE [id number] Nabor Mcfarland Start: 01-11-2014 inject 20 [IU] by [place]ber[place]on bcutaneous injection once daily in the morning LANTUS 100 UNIT/ML SOLN inject 20 units subcutaneously every morning INSULIN GLARGINE [id number] Nabor Mcfarland Start: 01-11-2014 LANTUS 100 UNI T/ML SOLN inject 20 units subcutaneously every morning INSULIN GLARGINE [id number] Nabor Mcfarland Start: 11-22-2013 End: 08-02-2014 Insulin Glargine (Lantus Suzanne ostar U-100 Insulin) 100 UNITS/ML Pen Discontinued 25 U SC AT BEDTIME November 22, 2013 12:00am August 02, 2014 5:03pm insulin glargine-yfgn (SEMGLEE,INSULIN GLARG-YFGN,PEN) 100 unit/mL (3 mL) insulin pen (20 sources) Start: 10-25-2023 End: 08-02-2024 insulin glargine-yfgn (SEMGLEE,INSULIN GLARG-YFGN,PEN) 100 unit/mL (3 mL) insulin pen Inject 14 Units subcutaneously daily at bedtime. 12 mL 1 10/25/2023 08/02/2024 Discontinued Start: 10-25-2023 insulin glargi ne-yfgn (SEMGLEE,INSULIN GLARG-YFGN,PEN) 100 unit/mL (3 mL) insulin pen Inject 14 Units subcutaneously daily at bedtime. 12 mL 1 10/25/2023 Active Start: 10-25-2023 End: 04-22-2024 insulin glargine-yfgn (SEMGL EE,INSULIN GLARG-YFGN,PEN) 100 unit/mL (3 mL) insulin pen Inject 14 Units subcutaneously daily at bedtime. 12 mL 1 10/25/2023 04/22/2024 Active Comment on above: Inject 14 Units subc utaneously daily at bedtime. insulin regular (MYXREDLIN) 100 units in sodium chloride 0.9 % 100 ml infusion (2 sources) Start: 05-30-2020 End: 05-31-2020 insulin regular (MYXREDLIN) 100 units in sodium chloride 0.9 % 100 ml infusion Start: 05-08-2020 End: 05-12-2020 take 1 [IU] intravenous route every hour 1 Units/hr (1 mL/hr), Intravenous, at 1 mL/hr, CONTINUOUS, Starting [facility] 05/08/20 at 1230 Target glucose 90-120mg/dl; if glucose <40 or >500 draw confirmation and send to lab; While on insulin drip follow hypoglycemic orders as outlined below. o Blood Glucose Initial Administration Rate/Additional IV Insulin Bolus protocol > 90-120mg/dl - 1 unit/hr 121-150mg/dl - 2 units/hr 150-180mg/dl - 2.5 units/hr 181- 240mg/dl - 3.5 units/hr + 4 unit bolus 241-300mg/dl - 5 units/hr + 6 unit bolus 301-360mg/dl - 6.5 units/hr + 8 unit bolus > 360mg/dl - 8 units/hr + 10 unit bolus o Glucose by finger stick 30 minutes after infusion has started, then per Floor Blood Glucose guidelines below o When BGT is between 90-120mg/dl with < 15mg/dl change and insulin rate remains unchanged x 3 hours, then may test every 2 hours. o Adjust insulin infusion rate in response to blood glucose levels as follows: o < 60mg/dl: BGT check in 30 minutes: 1. Stop infusion. 2. Give 25ml dextrose 50% IVP, recheck BG in 30 mins When BG is > 80 and < 120mg/dl, restart drip at 50% of the previous rate, recheck in 30 minutes. If BG > 120, restart drip at 75% of the previous rate, recheck in 30 minutes o 60-69mg/dl: BGT check in 30 minutes: 1. Stop infusion. If previous BG > 100mg/dl give 25ml dextrose 50% IVP, recheck BG in 30 minutes. When BG > 80 and < 120mg/dl, restart drip at 50% of previous rate, recheck BG in 30 minutes. If BG > 120mg/dl or more restart drip at 75% of the previous rate, recheck BG in 30 minutes. o 70-89mg/dl: BGT check every 1 hour. Has BG dropped > 10mg/dl from the last BG? Yes: Decrease rate by 50% Has BG dropped from the last BG < 10mg/dl or = to 10mg/dl? Yes: decrease the rate by 0.5units/hr. If BG greater than or equal to the last test, maintain same rate. o 90-120mg/dl: BGT check in 1 hour. TITRATE DRIP RATE TO MAINTAIN THIS RANGE Has BG increased > 10mg/dl from the last BG? Yes: increase rate by 0.5units/hr. Has BG dropped from the last BG by more than 10mg/dl? Yes: decrease the rate by 0.5 units/hr: No: Same rate. o 121-150mg/dl: BGT check in 1 hour Has BG dropped 20-50mg/dl from last BG? Yes: Same rate. Has BG increased from last BG by > 20mg/dl? Yes: increase rate by 1.5 units/hr. Has BG dropped by more than 50mg/dl? Yes: decrease rate by 50%. Is BG within 20mg/dl of the last test? Yes: increase rate by 1 unit/hr. o 151-180mg/dl: BGT check every 1 hour Has BG dropped > 30mg/dl? Yes: same rate Has BG dropped from last BG by < 30 mg/dl OR is BG higher than the last test? Yes: increase rate by 1.5 units/hr. o 181-240mg/dl: BGT check in 1 hour Is BG 50-100mg/dl lower from the last BG? Yes: continue at the same rate. Is BG lower than the last BG by >100mg/dl? Yes: decrease rate by 25%. Is BG lower than the last BG by < 50mg/dl OR higher than the last test? Yes: bolus with 4 units insulin IV and increase rate by 2 units/hr. Note: If BG 181-240mg/dl and has not dropped after 3 consecutive increases in insulin, then bolus with 4 units and double the insulin rate. o > 240mg/dl: BGT check in 30 minutes Has BG dropped > 100mg/dl from last BG? Yes: same rate Is BG lower than the last test by < 100mg/dl OR higher than the last test? Yes: IV Bolus with regular insulin as per IV infusion Bolus dosage scale and double insulin drip rate. o > 300mg/dl: Continue to follow the appropriate interventions based on BGT and call the Regional Director Of Admissions. o Maximum insulin infusion drip rate may not exceed 30 units/hr; Insulin drip may NOT be discontinued unless approved by Regional Director Of Admissions. Discontinue all subcutaneous Insulin orders (if patient is on subcutaneous insulin). Post-op INSULIN SYRINGE-NEEDLE U-100 (16 sources) Start: 01-11-2014 BD INSULIN SYR LINDSAY 31G X 01/11 0.3 ML MISC as directed INSULIN SYRINGE-NEEDLE U-100 [id number] Nabor Mcfarland insulin isophane, human 100 unt/ml injectable suspension (20 sources) Start: 04-14-2015 End: 04-23-2015 Insulin Nph Isoph U-100 Shraddha n (Humulin N Nph Insulin Kwikpen) 100 UNITS/ML Pen Discontinued 20 U SC AT BEDTIME April 14, 2015 12:00am April 23, 2015 11:16am Start: 07-05-2014 End: 08-02-2014 Insulin Nph Isoph U-100 Shraddha n (Humulin N Pen) 100 UNITS/ML Pen Discontinued 20 U SC AT BEDTIME July 05, 2014 1:00am August 02, 2014 5:00pm Start: 01-11-2014 HUMULIN N SUSP Inject 15 units subcutaneously daily at bedtime INSULIN ISOPHANE HUMAN SUSP [id number] Nabor Mcfarland Start: 01-11-2014 End: 05-18-2017 HUMULIN N SUSP Inject 15 uni ts subcutaneously daily at bedtime INSULIN ISOPHANE HUMAN SUSP [id number] Evelia Maya Start: 01-11-2014 inject 15 [IU] by robertson bcutaneous injection once daily at bedtime HUMULIN N SUSP Inject 15 units subcutaneously daily at bedtime INSULIN ISOPHANE HUMAN SUSP [id number] Nabor Mcfarland lidocaine 0.04 mg/mg medicated patch (7 sources) Antiarrhythmic, Amide Local Anesthetic Start: 03-16-2022 End: 08-16-2022 Lidocaine 4 % adhesive patch,medicated Discontinued 1 NMA TOPICAL Q12H as needed for pain 10 March 16, 2022 12:00am August 16, 2022 3:07pm Start: 05-30-2020 lidocaine 4 % external patch 2 patch lisinopril 10 mg oral tablet (20 sources) Angiotensin Converting Enzyme Inhibitor Start: 06-27-2020 End: 07-09-2020 take 5 mg by mouth once daily Lisinopril 10 mg tablet Discontinued 5 mg PO DAILY June 27, 2020 12:00am July 09, 2020 3:05pm Start: 06-27-2020 End: 07-09-2020 take 5 mg by mouth once daily Lisinopril Discontinued 5 MG PO DAILY June 27, 2020 12:00am July 09, 2020 3:05pm Start: 05-14-2020 take 0.5 tablet by m outh once daily lisinopril (PRINIVIL;ZESTRIL) 20 MG tablet Take 0.5 tablets by mouth daily 30 tablet 3 05/14/2020 Suspended Start: 02-28-2020 End: 06-27-2020 take 10 mg by mouth once daily Lisinopril 20 mg tablet Discontinued 10 mg PO DAILY February 28, 2020 11:07am June 27, 2020 3:56pm HTN Start: 02-28-2020 End: 06-27-2020 take 10 mg by mouth once daily Lisinopril Discontinued 10 MG PO DAILY February 28, 2020 11:07am June 27, 2020 3:56pm Start: 01-11-2014 End: 05-14-2020 take 1 tablet by mouth once daily Lisinopril 20 MG tablet Discontinued 20 mg PO DAILY November 21, 2016 12:00am February 28, 2020 11:09am HTN 50 ml magnesium sulfate 40 m g/ml injection (3 sources) Start: 06-01-2020 End: 06-01-2020 magnesium sulfate 2 g in 50 mL IVPB premix Start: 05-30-2020 magnesium sulf ate 4 g in 100 mL IVPB premix Start: 05-08-2020 2 g, Intraveno us, at 25 mL/hr, Administer over 2 Hours, PRN, Other, hypomagnesemia, Starting Jordana 05/08/20 at 1213 Via central line - If patient has acute/chronic renal failure do not initiate protocol, call MD for management. Mag level Dose Less than or equal to 1.0 Give 2 grams at 1 gm/hr. Call MD. Monitor BP and EKG. Repeat Magnesium level 60 minutes post infusion. 1.1 - 1.5 &n bsp; & nbsp; Give 2 grams at 1 gm/hr. Repeat Magnesium level 60 minutes post infusion 1.6 - 1.9 &n bsp; &nb sp; &n bsp; Give 2 grams at 1 gm/hr. Repeat Magnesium level 60 minutes post infusion Greater than 1.9 &n bsp; & nbsp; No coverage Post-op meloxicam 15 mg oral tablet (20 sources) Nonsteroidal Anti-inflammatory Drug Start: 11-22-2013 End: 01-03-2018 take 1 tablet by mouth once daily Meloxicam (Mobic) 15 MG tablet Discontinued 15 mg PO DAILY November 21, 2016 12:00am January 03, 2018 2:37pm pain minocycline 100 mg oral tablet (9 sources) Tetracycline-class Drug Start: 04-13-2017 take 1 tablet by mouth twice daily MINOCYCLINE HCL 100 MG TABS One tablet by mouth twice daily MINOCYCLINE HCL [id number] Anuel Rodriges MD multivitamin tablet (20 sources) Start: 12-03-2016 End: 08-02-2024 take 1 tablet by mouth once daily multivitamin tablet Take 1 tablet by mouth once daily. 0 12/03/2016 08/02/2024 Discontinued Start: 12-03-2016 take 1 tablet by eliana th once daily multivitamin tablet Take 1 tablet by mouth once daily. 0 12/03/2016 Active take 1 tablet by eliana th once daily multivitamin tablet Take 1 tablet by mouth once daily. Active Comment on above: Take 1 tablet by eliana th once daily. mupirocin 0.02 mg/mg topical ointment (10 sources) RNA Synthetase Inhibitor Antibacterial Start: 05-08-2020 End: 05-12-2020 Nasal, 2 TIMES DAILY, First dose on Jordana 05/08/20 at 1230, For 4 days, Post-op Start: 04-22-2020 End: 05-14-2020 mupirocin (BACTROBAN NASAL) 2 % nasal ointment Apply liberal amount on a q-tip and place in each nostril the night before surgery and then again the morning of surgery 1 Tube 0 04/22/2020 05/14/2020 Discontinued (Stop Taking at Discharge) Start: 03-15-2017 End: 03-25-2017 Mupirocin Calcium (Bactroban Cream) 15 GM Cream..G. Discontinued 1 NMA TOPICAL THREE TIMES A DAY March 15, 2017 12:00am March 25, 2017 3:24pm 100 ml sodium nitroprusside 0.5 mg/ml injection (1 source) Start: 05-08-2020 End: 05-10-2020 nitroprusside (NIPRIDE) 50 mg in NS 100mL infusion INSULIN ISOPHANE HUMAN SUSP (16 sources) Start: 01-11-2014 HUMULIN N SUSP Inject 15 units subcutaneously daily at bedtime INSULIN ISOPHANE HUMAN SUSP [id number] Nabor Mcfarland oxyCODONE hydrochloride 5 mg oral tablet (12 sources) Opioid Agonist Start: 01-11-2021 End: 05-25-2021 take 1 tablet by mouth every eight hours as needed for pain Oxycodone 5 mg tablet Discontinued 5 mg PO Q8H as needed for pain 10 3 0 January 11, 2021 May 25, 2021 2:36pm Chest wall pain Other chest pain Start: 08-02-2014 End: 08-12-2014 take 1 tablet by mouth twice daily Oxycodone (Oxycontin) 20 MG tablet Discontinued 20 mg PO TWICE A DAY 1 0 August 02, 2014 1:00am August 12, 2014 9:31am pantoprazole 40 mg delayed release oral tablet (12 sources) Proton Pump Inhibitor Start: 05-15-2020 End: 09-09-2020 take 1 tablet by mouth once daily Pantoprazole 40 MG tablet Discontinued 40 mg PO DAILY May 29, 2020 12:00am September 09, 2020 9:28am Start: 05-15-2020 take 1 tablet by eliana th once daily before breakfast pantoprazole (PROTONIX) 40 MG tablet Take 1 tablet by mouth every morning (before breakfast) 30 tablet 3 05/15/2020 Active Start: 05-10-2020 pantoprazole ( PROTONIX) tablet 40 mg perflutren lipid microsphere s (DEFINITY) injection 1.65 mg (1 source) Start: 05-30-2020 End: 06-02-2020 perflutren lipid microsphere s (DEFINITY) injection 1.65 mg phenylephrine (SCOOTER-SYNEPHRIN E) 50 mg in dextrose 5 % 250 mL infusion (1 source) Start: 05-08-2020 End: 05-12-2020 0.5 mcg/kg/min 99.8 kg (14.9 7 mL/hr, rounded to 15 mL/hr), Intravenous, at 15 mL/hr, CONTINUOUS PRN, Initiate if Cardiac Index above 2.0; SBP less than 90 mmHg; and PAD above 18, Starting Jordana 05/08/20 at 1213 Initial rate: 0.5 mcg/kg/min Max rate: 6 mcg/kg/min Titrate by 0.5 mcg/kg/min no faster than 30 minutes to maintain goal SBP greater than 90 but less than 130 Infusion Titrations: If CI is greater than 2.0 or SBP greater than 130; wean drip by 0.5mcg/kg/min no faster than 15 minutes to achieve hemodynamic goals (CI Greater than 2.0, SBP 90-130mmHg) reevaluate hemodynamic numbers every hour during titration of infusion. May titrate outside of defined titration parameters (increments and frequency) under direction of provider. If hemodynamic goal unattained at instructed max dose, notify provider. Post-op predniSONE 10 mg oral tablet (6 sources) Start: 06-27-2020 End: 09-09-2020 Prednisone 10 mg tablets,dos e pack Discontinued 0 PO per package directions June 27, 2020 12:00am September 09, 2020 9:29am PO PER PKG DIR Start: 06-27-2020 End: 09-09-2020 Prednisone Discontinued 0 PO per package directions June 27, 2020 12:00am September 09, 2020 9:29am PO PER PKG DIR 100 ml propofol 10 mg/ml injection (1 source) General Anesthetic Start: 05-08-2020 End: 05-09-2020 10 mcg/kg/min 99.8 kg (5.988 mL/hr, rounded to 6 mL/hr), Intravenous, at 6 mL/hr, CONTINUOUS, Starting Jordana 05/08/20 at 1230 For sedation, titrate to RASS +1 to -1 Dose Range: 5 to 50 mcg/kg/min Max dose: 50 mcg/kg/min Contact physician if max dose does not achieve desired response If RASS 1 point below goal - decrease rate by 5mcg/kg/min no faster than every 5 min If RASS 2 points below goal- decrease rate by 10mcg/kg/min no faster than every 5 min If RASS at goal, continue current rate If RASS 2 or more points above goal - increase rate by 10mcg/kg/min no faster than every 5 min If RASS 1 point above goal - increase rate by 5mcg/kg/min no faster than every 5 min If after titration rate change patient exhibits adverse hemodynamic response, next titration rate change may be adjusted by one-half of the previous rate change If patient fails sedation interruption, resume propofol titration at 50% of previous rate Do not administer through the same I.V. catheter with blood or plasma. Tubing and any unused portions of propofol vials should be discarded after 12 hours. Post-op regular insulin, human 100 unt/ml injectable solution (7 sources) Insulin Start: 05-08-2020 End: 05-12-2020 take 2 [IU] intravenous route once as needed 4 Units, Intravenous, PRN, High Blood Sugar, Insulin Bolus per Post op Open Heart Insulin drip, Starting [facility] 05/08/20 at 1213 Post Open Heart Insulin Drip To be used as outlined in protocol for Blood Sugar Range between 181-240: If patient's blood sugar is 50-100 mg/dl lower from previous blood sugar then continue same rate. If blood sugar is lower than last blood sugar by greater than 100 then decrease rate by 25%; if blood sugar is lower than previous blood sugar by less than 50 mg/dl or higher than last blood sugar then initiate PRN bolus and bolus with 4 units IV and increase rate by 2 units/hr. Intervention to be used only when patient is on insulin drip for post op open heart surgery. When insulin drip discontinued, order no longer valid. Start: 11-22-2013 End: 08-02-2014 Insulin Regular Human (Humul in R Regular U-100 Insuln) 100 UNIT/ML Ml Discontinued 2 - 10 U SC DAILY November 22, 2013 12:00am August 02, 2014 5:06pm TENS unit and electrodes cmpk (20 sources) Start: 12-06-2018 TENS unit and electrodes cmpk Use as instructed. 1 Device 0 12/06/2018 Active Comment on above: Use as instructed. 200 ml vancomycin 5 mg/ml injection (1 source) Glycopeptide Antibacterial Start: 05-30-2020 End: 05-31-2020 vancomycin (VANCOCIN) 1000 mg in dextrose 5% 200 mL IVPB warfarin sodium 5 mg oral tablet (15 sources) Vitamin K Antagonist Start: 05-29-2020 End: 08-05-2020 take 1 tablet by mouth once daily Warfarin 5 MG tablet Discontinued 5 mg PO DAILY May 29, 2020 12:00am August 05, 2020 10:47am Start: 05-11-2020 warfarin (COUM BRAD) tablet 2.5 mg Start: 05-10-2020 End: 05-15-2020 warfarin (COUMADIN) 5 MG tab let Take as directed by [facility] (30 tablets= 30 day supply) 30 tablet 1 05/14/2020 Active Problems Active Problems Problem Classification Problem Date Documented Date Episodic/Chronic Abdominal pain (6 sources) Flank pain; Translations: [Unspecified abdominal pain] 03-14-2020 Episodic Acute posthemorrhagic anemia (5 sources) Anemia following acute postoperative blood loss; Translations: [Postoperative anemia due to acute blood loss] 05-12-2020 Episodic Allergic reactions (20 sources) Idiopathic urticaria; Translations: [Idiopathic urticaria] Onset: 02-24-2009 02-24-2009 Episodic Asthma (6 sources) Asthmatic bronchitis; Translations: [Unspecified asthma with (acute) exacerbation] 01-22-2020 Chronic Bacterial infection (17 sources) Methicillin resistant Staphylococcus aureus infection; Translations: [History of methicillin resistant Staphylococcus aureus infection] Onset: 03-31-2017 03-31-2017 Episodic Cardiac dysrhythmias (20 sources) Atrial fibrillation; Translations: [Longstanding persistent atrial fibrillation] Onset: 05-13-2020 05-13-2020 Chronic Cataract (3 sources) Bilateral cataracts; Translations: [Unspecified cataract] 05-10-2023 Chronic Coagulation and hemorrhagic disorders (20 sources) Thrombocytopenic disorder; Translations: [Thrombocytopenia, unspecified] Onset: 01-07-2023 01-07-2023 Chronic Complication of device; implant or graft (1 source) Arteriosclerosis of coronary artery bypass graft; Translations: [Coronary artery disease involving coronary bypass graft of [place] heart without angina pectoris] Chronic Complications of surgical procedures or medical care (14 sources) Seroma following procedure; Translations: [Seroma after procedure] Onset: 10-09-2024 Episodic Conditions associated with dizziness or vertigo (6 sources) Lightheadedness; Translations: [Dizziness and giddiness] 03-11-2021 Episodic Coronary atherosclerosis and other heart disease (20 sources) Coronary arteriosclerosis in [place] artery; Translations: [Coronary atherosclerosis] Onset: 03-26-2020 05-12-2020 Chronic Coronary atherosclerosis and other heart disease (7 sources) History of coronary artery bypass grafting; Translations: [Presence of aortocoronary bypass graft] Onset: 05-10-2020 05-10-2020 Episodic Deficiency and other anemia (1 source) Anemia of chronic disease; Translations: [Anemia in other chronic diseases classified elsewhere] 02-11-2025 Chronic Deficiency and other anemia (1 source) Anemia in other chronic diseases classified elsewhere; Translations: [Anemia of chronic disease] Onset: 02-11-2025 Chronic Deficiency and other anemia (1 source) Pancytopenia; Translations: [Other pancytopenia] 04-15-2025 Chronic Delirium, dementia, and amnestic and other cognitive disorders (1 source) Mild cognitive disorder ; Translations: [Unspecified mental disorder due to known physiological condition] 10-17-2023 Chronic Diabetes mellitus with complications (20 sources) Insulin treated type 2 diabetes mellitus; Translations: [Type 2 diabetes mellitus with diabetic neuropathy, unspecified] Onset: 10-08-2005 06-18-2017 Chronic Diabetes mellitus without complication (20 sources) Type 2 diabetes mellitus; Translations: [Type 2 diabetes mellitus without complication] Onset: 10-08-2005 05-08-2020 Chronic Disorders of lipid metabolism (20 sources) Hyperlipidemia; Translations: [Mixed hyperlipidemia] Onset: 10-29-2015 Resolved: 10-29-2015 05-12-2020 Chronic Essential hypertension (20 sources) Hypertensive disorder; Translations: [Benign essential hypertension] Onset: 12-19-2007 05-12-2020 Chronic Fever of unknown origin (7 sources) Fever; Translations: [Fever, unspecified] 05-29-2020 Episodic Fluid and electrolyte disorders (8 sources) Hyponatremia; Translations: [Hypo-osmolality and hyponatremia] Episodic Heart valve disorders (20 sources) Nonrheumatic aortic (valve) stenosis; Translations: [Aortic valve stenosis] Onset: 10-26-2017 05-12-2020 Chronic Comment on above: 23mm [place] [employer] bioprosthesis 05/08/20 Hyperplasia of prostate (5 sources) Benign prostatic hyperplasia; Translations: [Benign prostatic hyperplasia] 05-12-2020 Chronic Immunizations and screening for infectious disease (3 sources) Patient encounter status; Translations: [Encounter for immunization] Episodic Joint disorders and dislocations; trauma-related (20 sources) Derangement of knee; Translations: [Unspecified internal derangement of knee] Onset: 01-11-2014 01-15-2014 Chronic Nonspecific chest pain (18 sources) Chest wall pain; Translations: [Other chest pain] 03-24-2022 Episodic Osteoarthritis (20 sources) Osteoarthritis of knee; Translations: [Arthritis] Onset: 05-30-2014 05-30-2014 Chronic Other circulatory disease (3 sources) Disorder of carotid artery; Translations: [Disorder of arteries and arterioles, unspecified] 03-14-2024 Chronic Other circulatory disease (1 source) Disorder of arteries and arterioles, unspecified; Translations: [Disorder of arteries and arterioles, unspecified] Onset: 04-23-2024 Chronic Other circulatory disease (2 sources) History of cerebrovascular disease; Translations: [Personal history of other diseases of the circulatory system] Onset: 10-22-2021 Episodic Other circulatory disease (1 source) H/O: atrial fibrillation; Translations: [Personal history of other diseases of the circulatory system] 10-17-2023 Episodic Other circulatory disease (3 sources) Carotid bruit; Translations: [Other specified symptoms and signs involving the circulatory and respiratory systems] 12-08-2023 Episodic Other connective tissue disease (5 sources) Thigh pain; Translations: [Pain in right thigh] 02-05-2023 Episodic Other connective tissue disease (3 sources) H/O: musculoskeletal disease; Translations: [Personal history of other diseases of the musculoskeletal system and connective tissue] 05-12-2023 Episodic Other ear and sense organ disorders (3 sources) Hearing disorder; Translations: [Unspecified hearing loss, unspecified ear] 05-10-2023 Chronic Other injuries and conditions due to external causes (1 source) Systemic inflammatory response syndrome; Translations: [Systemic inflammatory response syndrome (SIRS) of non-infectious origin without acute organ dysfunction] 04-15-2025 Episodic Other lower respiratory disease (7 sources) Dyspnea on exertion; Translations: [Other forms of dyspnea] 03-12-2020 Episodic Other nervous system disorders (1 source) Disorder of brain; Translations: [Encephalopathy, unspecified] 04-15-2025 Chronic Other nervous system disorders (2 sources) Impairment of balance; Translations: [Other abnormalities of gait and mobility] 11-08-2024 Episodic Other nervous system disorders (1 source) Other abnormalities of gait and mobility; Translations: [Other abnormalities of gait and mobility] Onset: 01-02-2025 Episodic Other nervous system disorders (1 source) Foreign body sensation; Translations: [Other disturbances of skin sensation] 02-11-2025 Episodic Other nervous system disorders (1 source) Other disturbances of skin sensation; Translations: [Sensation of foreign body in finger] Onset: 02-11-2025 Episodic Other nutritional; endocrine; and metabolic disorders (20 sources) Obesity; Translations: [Obesity, unspecified] Onset: 12-27-2005 12-27-2005 Chronic Other nutritional; endocrine; and metabolic disorders (1 source) Obesity, unspecified; Translations: [Obesity, unspecified] Onset: 10-09-2024 Chronic Other nutritional; endocrine; and metabolic disorders (1 source) Body mass index 30+ - obesity; Translations: [Body mass index (BMI) 33.0-33.9, adult] 04-15-2025 Chronic Other screening for suspected conditions (not mental disorders or infectious disease) (13 sources) Platelet count below reference range; Translations: [Echocardiogram abnormal] Onset: 10-09-2024 05-12-2020 Episodic Other skin disorders (1 source) Eruption; Translations: [Rash and other nonspecific skin eruption] 05-19-2024 Episodic Other skin disorders (7 sources) Swelling of hand; Translations: [Effusion, left hand] 12-05-2024 Episodic Comment on above: PIP joint K[place]-; endo-; and myocarditis; cardiomyopathy (except that caused by tuberculosis or sexually transmitted disease) (9 sources) Acute pericarditis; Translations: [Pericardial effusion] 06-01-2020 Episodic Peripheral and visceral atherosclerosis (20 sources) Peripheral vascular disease, unspecified; Translations: [Peripheral vascular disease, unspecified] Onset: 06-16-2023 06-16-2023 Chronic Residual codes; unclassified (20 sources) Sleep apnea; Translations: [Sleep apnea, unspecified] Onset: 11-07-2009 05-12-2020 Chronic Residual codes; unclassified (9 sources) Obstructive sleep apnea syndrome; Translations: [Obstructive sleep apnea (adult) (pediatric)] Onset: 10-22-2021 Chronic Residual codes; unclassified (1 source) Postprocedural state finding; Translations: [Presence of other specified functional implants] 10-17-2023 Chronic Residual codes; unclassified (5 sources) Chronic back pain ; Translations: [Chronic back pain] 05-12-2020 Episodic Screening or history of mental health and substance abuse (18 sources) Ex-smoker; Translations: [Patient encounter status] Onset: 03-31-2017 04-06-2017 Episodic Skin and subcutaneous tissue infections (20 sources) Cellulitis of hand; Translations: [Abscess of finger] Onset: 03-22-2017 03-31-2017 Episodic Spondylosis; intervertebral disc disorders; other back problems (20 sources) Other intervertebral disc degeneration, lumbar region; Translations: [Spondylosis without myelopathy or radiculopathy, lumbar region] Onset: 08-11-2009 08-11-2009 Chronic Spondylosis; intervertebral disc disorders; other back problems (20 sources) Sciatica; Translations: [Sciatica, unspecified side] Onset: 03-29-2006 05-27-2005 Episodic Sprains and strains (6 sources) Strain of muscle of lower limb; Translations: [Strain of muscle, fascia and tendon of left hip, initial encounter] 05-20-2021 Episodic Syncope (6 sources) Near syncope; Translations: [Syncope and collapse] 03-11-2021 Episodic Unclassified (14 sources) Aftercare ; Translations: [Encounter for other specified surgical aftercare] Onset: 03-31-2017 04-04-2017 Unclassified (1 source) Unknown / UNK(Unknown) Onset: 10-26-2017 Unclassified (1 source) Patient encounter status; Translations: [Pre-op testing] Unclassified (1 source) Other intervertebral disc degeneration, lumbar region without mention of lumbar back pain or lower extremity pain; Translations: [Other intervertebral disc degeneration, lumbar region without mention of lumbar back pain or lower extremity pain] Onset: 01-17-2025 Unclassified (1 source) Degeneration of intervertebral disc of lumbar region with discogenic back pain and lower extremity pain; Translations: [Degeneration of intervertebral disc of lumbar region with discogenic back pain and lower extremity pain] Onset: 02-18-2014 Varicose veins of lower extremity (8 sources) Pain co-occurrent and due to varicose veins of right leg; Translations: [Varicose veins of right lower extremity with pain] Onset: 11-28-2024 Episodic Past or Other Problems Problem Classification Problem Date Documented Date Episodic/Chronic Anal and rectal conditions (20 sources) Anorectal abscess; Translations: [Anorectal abscess] Onset: 08-13-2008 Resolved: 07-04-2009 07-04-2009 Episodic Joint disorders and dislocations; trauma-related (20 sources) Tear of medial cartilage or meniscus of knee, current; Translations: [Tear of medial cartilage or meniscus of knee, current] Onset: 05-08-2014 05-09-2014 Episodic Other aftercare (20 sources) Follow-up orthopedic assessment; Translations: [Encounter for other orthopedic aftercare] Onset: 09-06-2014 09-09-2014 Episodic Other aftercare (1 source) 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; Translations: [Controlled type 2 diabetes mellitus with diabetic neuropathy, with long-term current use of insulin (HCC)] Onset: 06-18-2017 Episodic Other and unspecified benign neoplasm (20 sources) Benign neoplasm of skin of trunk; Translations: [Other benign neoplasm of skin of trunk] Onset: 10-03-2006 Resolved: 07-04-2009 07-04-2009 Episodic Other connective tissue disease (20 sources) Iliotibial band friction syndrome; Translations: [Tenosynovitis of hand] Onset: 09-20-2014 09-20-2014 Episodic Other connective tissue disease (5 sources) Tenosynovitis of hand; Translations: [Synovitis and tenosynovitis, unspecified] Onset: 03-22-2017 03-31-2017 Episodic Other connective tissue disease (20 sources) Pain in buttock; Translations: [Myalgia, other site] Onset: 02-18-2014 02-18-2014 Episodic Other connective tissue disease (20 sources) Ischial bursitis ; Translations: [Other bursitis of hip, left hip] Onset: 11-08-2015 11-08-2015 Episodic Other lower respiratory disease (1 source) Dyspnea, unspecified; Translations: [Dyspnea, unspecified] Onset: 10-09-2024 Episodic Other non-traumatic joint disorders (20 sources) Pain in unspecified knee; Translations: [Effusion, unspecified knee] Onset: 01-11-2014 01-15-2014 Episodic Other non-traumatic joint disorders (7 sources) Effusion, unspecified knee; Translations: [Effusion, unspecified knee] Onset: 01-11-2014 01-15-2014 Episodic Other non-traumatic joint disorders (7 sources) Knee pain; Translations: [Pain in right knee] Onset: 09-06-2014 09-06-2014 Episodic Other non-traumatic joint disorders (1 source) Effusion, left hand; Translations: [Swelling of hand joint, left] Onset: 12-05-2024 Episodic Residual codes; unclassified (20 sources) Family history of alcoholism; Translations: [Family history of alcohol abuse and dependence] 03-22-2017 Episodic Residual codes; unclassified (6 sources) History of cardiac catheterization; Translations: [Other specified postprocedural states] Onset: 03-18-2020 05-29-2020 Episodic Comment on above: [place] Multivessel C AD. Aortic Valve Calcification- Restriction. RECOMMENDATIONS: Surgery consult for coronary revascularization. Surgery consult for valvular disease. Results Test Name Value Interpretation Reference Range Facility Absolute lymphocyte countOrd ered By: Omer Boo on 04-15-2025 Lymphocytes Auto (Unsp spec) [#/Vol] 0.21 10*3/uL Low 0.83-4.51 [facility] Absolute neutrophil countOrd ered By: Omeraylin Boo on 04-15-2025 Neutrophils (Bld) [#/Vol] 2.6 10*3/uL 2.0-7.7 [facility] Activated partial thrombopla stin time (aPTT) in platelet poor plasma by coagulation aOrdered By: Omer Boo on 04-15-2025 aPTT Coag (PPP) [Time] 30.3 s 24.1-36.2 [facility] Anion gap in Serum or Plasma Ordered By: Omer Boo on 04-15-2025 Anion gap [Moles/Vol] 13 mmol/L 5-15 [facility] Automated lymphocyte count a s percentage of total leukocytesOrdered By: Omer Boo on 04-15-2025 Lymphocytes/100 WBC Auto (Unsp spec) 6.9 % Low 19-41 [facility] BUN/creatinine ratioOrdered By: Omeraylin Boo on 04-15-2025 Urea nitrogen/Creatinine [Mass ratio] 14.6 mg/mg 10-20 [facility] Basophil percentageOrdered B y: Omeraylin Anayao on 04-15-2025 Basophils/100 WBC (Bld) 0.3 % 0-1 [facility] Bilirubin Test strip Ql (U)O rdered By: Omer Boo on 04-15-2025 Bilirubin Ql (U) Negative Negative [facility] Bilirubin, totalOrdered By: Omer Boo on 04-15-2025 Bilirubin [Mass/Vol] 0.52 mg/dL 0.00-1.30 [facility] Carbon dioxide, total [Moles /volume] in Central venous bloodOrdered By: Omer Boo on 04-15-2025 CO2 [Moles/Vol] 23.1 mmol/L 21.0-32.0 [facility] Chloride assayOrdered By: aylin Anayao on 04-15-2025 Chloride [Moles/Vol] 96 mmol/L Low 98-108 [facility] Eosinophil percentageOrdered By: Omer Boo on 04-15-2025 Eosinophils/100 WBC (Bld) 1.0 % 0-5 [facility] Erythrocyte distribution wid th ratioOrdered By: Omer Boo on 04-15-2025 Erythrocyte distribution width (RBC) [Ratio] 12.6 % 11.6-14.6 [facility] Erythrocyte distribution wid th standard deviationOrdered By: Omer Boo on 04-15-2025 Erythrocyte distribution width (RBC) [Ratio] 40.6 fl 35.1-43.9 [facility] Glomerular filtration rate ( GFR) estimation/1.73 sq m using serum, plasma, or whole bOrdered By: Omer Boo on 04-15-2025 GFR/1.73 sq M.predicted among non-blacks MDRD (S/P/Bld) [Vol rate/Area] 88 mL/min/{1.73_m2} >60 [facility] Comment on above: mL/min/1.73m2 CKD-EP I Creatinine Equation (2020) Hematocrit Auto (Bld) [Volum e fraction]Ordered By: Omer Boo on 04-15-2025 Hematocrit (Bld) [Volume fraction] 36.2 % Low 40-54 [facility] Hemoglobin measurementOrdere d By: Omer Boo on 04-15-2025 Hemoglobin (Bld) [Mass/Vol] 12.6 g/dL Low 13.0-16.5 [facility] Immature granulocytes/100 WB C Auto (Bld)Ordered By: Omer Boo on 04-15-2025 Immature granulocytes/100 WBC (Bld) 0.700 % 0.0-0.9 [facility] Comment on above: IG% - Immature Granu locytes (promyelocytes, myelocytes and metamyelocytes) > 1% indicates that a LEFT SHIFT is Present. Influenza virus A and B and SARS-CoV-2 (COVID-19) and Respiratory syncytial virus RNAOrdered By: Omer Boo on 04-15-2025 SARS-CoV-2 (COVID-19) RNA AMARIS+probe Ql (Unsp spec) [facility] normalized rat io (INR) calculationOrdered By: Omer Boo on 04-15-2025 INR Coag (Bld) [Relative time] 1.2 {INR} [facility] Ketones Test strip Ql (U)Ord ered By: Omer Boo on 04-15-2025 Ketones Ql (U) 5 mg/dl High Negative [facility] - Chemistry and C hemistry - challengeOrdered By: Omer Boo on 04-15-2025 AST [Catalytic activity/Vol] 36 U/L <38 [facility] Lactic acid measurementOrder ed By: Omer Boo on 04-15-2025 Lactate [Moles/Vol] 1.6 mmol/L 0.0-2.0 [facility] MCV (mean corpuscular volume ) determinationOrdered By: Omer Boo on 04-15-2025 MCV (RBC) [Entitic vol] 88.7 fL 80-94 [facility] Mean corpuscular hemoglobin (MCH) determinationOrdered By: Omer Boo on 04-15-2025 MCH (RBC) [Entitic mass] 30.9 pg 27.0-32.0 [facility] Mean corpuscular hemoglobin concentration (MCHC) determinationOrdered By: Omer Boo on 04-15-2025 MCHC (RBC) [Mass/Vol] 34.8 g/dL 32-36 [facility] Mean platelet volume determi nationOrdered By: Omer Boo on 04-15-2025 Platelet mean volume (Bld) [Entitic vol] 9.1 fL 6.2-12.0 [facility] Microscopic analysis of urin e for red blood cells (RBC)Ordered By: Omer Boo on 04-15-2025 Microscopic analysis of urine for red blood cells (RBC) 0-5 SEEN /hpf 0-5 [facility] Monocyte percentageOrdered B y: Omeraylin Anayao on 04-15-2025 Monocytes/100 WBC (Bld) 7.2 % 0-10 [facility] Mucus LM Ql (Urine sed)Order ed By: Omeraylin Anayao on 04-15-2025 Mucus Ql (Urine sed) 0 SEEN /hpf [facility] Neutrophil percentageOrdered By: Omeraylin Anayao on 04-15-2025 Neutrophils/100 WBC (Bld) 83.9 % High 47-70 [facility] Nitrite Test strip Ql (U)Ord ered By: Omer Boo on 04-15-2025 Nitrite Ql (U) Negative Negative [facility] Nucleated red blood cell per centageOrdered By: Omer Boo on 04-15-2025 Nucleated RBC/100 WBC (Bld) [Ratio] 0 % 0-5 [facility] Platelet countOrdered By: Kadi aylin Anayao on 04-15-2025 Platelets (Bld) [#/Vol] 100 10*3/uL Low 150-450 [facility] Potassium measurement (mass/ volume)Ordered By: Omer Boo on 04-15-2025 Potassium (Unsp spec) [Mass/Vol] 4.6 mmol/L 3.3-5.1 [facility] Protein Test strip Ql (U)Ord ered By: Omeraylin Anayao on 04-15-2025 Protein Ql (U) 30 mg/dl High Negative [facility] Prothrombin timeOrdered By: Omer Anayao on 04-15-2025 PT Coag (PPP) [Time] 15.1 s High 11.7-14.9 [facility] RBC Auto (Bld) [#/Vol]Ordere d By: Omer Boo on 04-15-2025 RBC (Bld) [#/Vol] 4.08 10*6/uL Low 4.6-6.2 [facility] Serum creatinine measurement (mass/volume)Ordered By: Omer Boo on 04-15-2025 Creatinine [Mass/Vol] 0.91 mg/dL 0.70-1.20 [facility] Serum globulin measurementOr dered By: Omer Boo on 04-15-2025 Globulin (S) [Mass/Vol] 2.8 g/dL 2.2-4.2 [facility] Serum glucose measurement (m ass/volume)Ordered By: Omer Boo on 04-15-2025 Glucose [Mass/Vol] 125 mg/dL High 70-99 [facility] Serum or plasma alanine zeng otransferase (ALT) measurementOrdered By: Omeraylin Boo 04-15-2025 ALT [Catalytic activity/Vol] 30 U/L <47 [facility] Serum or plasma albumin tatum urement (mass/volume)Ordered By: Omeraylin Boo 04-15-2025 Albumin [Mass/Vol] 4.3 g/dL 3.4-4.8 [facility] Serum or plasma albumin/glob ulin mass ratioOrdered By: Omer Boo 04-15-2025 Albumin/Globulin [Mass ratio] 1.6 {ratio} 0.9-2.4 [facility] Serum or plasma alkaline mike sphatase measurementOrdered By: Omeraylin Boo 04-15-2025 ALP [Catalytic activity/Vol] 99 U/L 40-129 [facility] Serum or plasma calcium tatum urement (mass/volume)Ordered By: Omer Boo 04-15-2025 Calcium [Mass/Vol] 9.3 mg/dL 7.6-11.0 [facility] Serum or plasma urea nitroge n measurement (mass/volume)Ordered By: Omer Boo 04-15-2025 Urea nitrogen [Mass/Vol] 13 mg/dL 4-19 [facility] Sodium levelOrdered By: Omer Boo 04-15-2025 Sodium [Moles/Vol] 132 mmol/L Low 133-145 [facility] Squamous epithelial cells de tection in urine sediment by light microscopyOrdered By: Omer Boo 04-15-2025 Epithelial cells.squamous LM Ql (Urine sed) 0-5 SEEN /hpf 0-5 [facility] Total proteinOrdered By: Omer Boo on 04-15-2025 Protein [Mass/Vol] 7.1 g/dL 5.9-8.4 [facility] Urine clarityOrdered By: Omer Boo on 04-15-2025 Clarity (U) Clear Clear [facility] Urine color determinationOrd ered By: Omer Boo on 04-15-2025 Color (U) Yellow Yellow [facility] Urine glucose detectionOrder ed By: Omer Boo on 04-15-2025 Glucose Ql (U) Normal mg/dl Normal [facility] Urine leukocyte esterase det ection by dipstickOrdered By: Omer Boo on 04-15-2025 Leukocyte esterase Test strip Ql (U) Negative Negative [facility] Urine pHOrdered By: Omer viera on 04-15-2025 pH (U) 7.0 [pH] 5.0 - 8.0 [facility] Urine sediment bacteria coun t by microscopy (number/high power field)Ordered By: Omer Boo on 04-15-2025 Bacteria LM.HPF (Urine sed) [#/Area] 0 /[HPF] None Seen [facility] Urine specific gravity measu rementOrdered By: Omer Boo on 04-15-2025 Specific gravity (U) [Rel density] 1.010 1.002-1.030 [facility] Urine urobilinogen measureme ntOrdered By: Omer Boo on 04-15-2025 Urobilinogen Ql (U) Normal mg/dl Normal [facility] White blood cell (WBC) count Ordered By: Omer Boo on 04-15-2025 WBC (Bld) [#/Vol] 3.1 10*3/uL Low 4.4-11.0 [facility] White blood cell countOrdere d By: Omer Boo on 04-15-2025 White blood cell count 0-5 SEEN /hpf 0-5 [facility] CNOVon 04-01-2025 CNOV Office Visit ([facility]) ----- ASCENCION WEIR ([id number]) 1950 M Date Time Provider Department 04/01/25 10:30 AM LISA QUINTANILLA During your visit today, we recorded the following information about you: Temperature Pulse Respiration Blood pressure 96.3 degrees 100/minute 20/minute 120/66 Weight 89.6 kg Lisa Quintanilla MD 04/01/2025 10:52 AM Signed [facility] Carlota Weir is a 74 year old male. Patient presents with: Rash: Rash on MADAN legs x 4 days Rash: Location: lower legs Duration: started 4 days ago Pruritis: sometimes Pain: No Change: NO Bleeding/ulceration/blist er/pustule: red spots Contacts with rash: No; here because his is concerned he may spread the rash to her Exposure: No new soaps, detergents, fabric softeners, lotions. Outdoor exposure: string trimming before he got the rash. Change in medications: No. Recent illness: No. Treatment: alcohol The history is provided by the patient. Rash Review of Systems Skin: Positive for rash. Objective BP 120/66 Pulse 100 Temp (!) 35.7 ?C (96.3 ?F) Resp 20 Wt 89.6 kg (197 lb 8.5 oz) SpO2 96% BMI 30.04 kg/m? Physical Exam Constitutional: General: He is not in acute distress. Skin: Comments: Red hyperpigmented patches, streaks, papules both lower legs. No induration, ulceration, or fluctuance. Neurological: Mental Status: He is alert. {ASSESSMENT/PLAN: 1. Contact dermatitis due to plant - ICD9: 692.6, ICD10: L25.5 Contact dermatitis secondary to string trimming. He may proceed with expectant management or potentially reduce duration by applying topical steroid. - TRIAMCINOLONE ACETONIDE 0.1 % TOPICAL CREAM Follow-up with worsening or failure to improve. He still has some issues with his left index finger from November which he noticed after running his hand along the flag. There is a little swelling and tenderness but also difficulty with getting the finger catching sometimes. I suggested follow-up with Dr. Diaz for trigger finger and concern for foreign body if the issue is bothersome enough. Lisa Quintanilla MD Differential Diagnoses - Contact dermatitis due to plant is more likely for the following reason(s): suggested by HANDP - Trigger finger - Infectious/contagious dermatitis is less likely for the following reason(s): HANDP not suggestive Procedures Allergies As of Date: 04/01/2025 Noted Allergy Reaction ENTEX PSE (PSEUDOEPHEDRINE-GUAIFE*1 10/12/2006 5 - Intolerance Comments: Patient states he does not have any allergies Date Reviewed: 04/01/2025 Reviewed by: Arely Pastrana MA - Fully Assessed Reason for Visit: Rash [1087] Cmt: Rash on MADAN legs x 4 days Primary Visit Diagnosis:Contact dermatitis due to plant [L25.5] Order(s):triamcinolone acetonide (KENALOG) 0.1 % creamApply to affected area two times a day for 14 days.Disp: 30 gRfl: 0 Prescriptions as of 04/01/2025 - traMADol (ULTRAM) 50 mg tablet Take 50 mg by mouth every 6 hours as needed for pain. - triamcinolone acetonide (KENALOG) 0.1 % cream Apply to affected area two times a day for 14 days. - metFORMIN (GLUCOPHAGE) 1,000 mg tablet Take 1 tablet by mouth two times a day with meals. - gabapentin (NEURONTIN) 400 mg capsule Take 1 capsule by mouth two times a day for 180 days. - amoxicillin (AMOXIL) 500 mg capsule Take 4 capsules by mouth prior to dental procedure. - multivitamin tablet Take 1 tablet by mouth once daily. - celecoxib (CELEBREX) 200 mg capsule Take 1 capsule by mouth twice daily. Take with food. - tamsulosin (FLOMAX) 0.4 mg Take 1 capsule by mouth daily at bedtime. - metoprolol succinate ER (TOPROL XL) 100 mg Take 0.5 tablets by mouth once daily. - atorvastatin (LIPITOR) 20 mg tablet Take 1 tablet by mouth once daily. - hydrOXYchloroQUINE (PLAQUENIL) 200 mg tablet Take 1 tablet by mouth every afternoon. - blood sugar diagnostic (TRUE METRIX GLUCOSE TEST STRIP) test strip Test blood sugar(s) 3 times daily. Insulin: Yes - Lancets lancets Test blood sugar(s) 4 times daily. Dx: Type 2 DM - Controlled E11.9 Insulin: Yes - CPAP Initiate CPAP @ 7 cm of water with humidification. Mask (per patient preference) optional chin strap (if indicated) , filters, tubing, humidifier and lifetime supplies. - aspirin, enteric coated (ADULT ASPIRIN EC LOW STRENGTH) 81 mg EC tablet Take 1 tablet by mouth every 48 hours. - COMPOUNDED PRESCRIPTION Accu-chek Lois Meter with multiclix lancet device use as directed Problem List As Of Date 04/01/2025 Noted Resolved HYPERLIPIDEMIA NEC/NOS [E78.5] 10/29/2015 SCIATICA [M54.30] Controlled type 2 diabetes mellitus with diabet*10/08/2005 OBESITY NOS [E66.9] 12/27/2005 LUMBAGO [M54.50] 03/29/2006 Benign Neoplasm of Skin of Trunk, except Scrotu*10/03/2006 07/04/2009 BENIGN HYPERTENSION [I10] 12/19/2007 ABSCES (more content not included)... Normal [facility] 02-18-2025 [facility] Telephone (FPWADS) ----- CARMELLAASCENCION Fay ([id number]) 1950 M Date Time Provider Department 02/18/25 AARON SOLORZANO During your visit today, we recorded the following information about you: Veronica Chow 02/18/2025 12:00 PM Signed Patient requesting medication tramadol hcl(ULTRAM 50 MG TAB) Patient last seen 02/11/25 Future visit scheduled: yes PHARMACY: [facility] Aaron Solorzano MD 02/20/2025 10:37 AM Signed The following approved medication requests have been transmitted electronically. Requested Prescriptions Signed Prescriptions Disp Refills traMADol (ULTRAM) 50 mg tablet 120 tablet 0 Sig: Take 1 tablet by mouth every 6 hours as needed for pain for up to 30 days. Authorizing Provider: AARON SOLORZANO, MD Allergies As of Date: 02/18/2025 Noted Allergy Reaction ENTEX PSE (PSEUDOEPHEDRINE-GUAIFE*1 10/12/2006 5 - Intolerance Comments: Patient states he does not have any allergies Date Reviewed: 02/11/2025 Reviewed by: Vernell Hernandez LPN - Fully Assessed Reason for Visit: requesting medication [Other] Visit Diagnoses:Lumbosacral neuritis [M54.17] Lumbar spondylosis [M47.816] Order(s):traMADol (ULTRAM) 50 mg tabletTake 1 tablet by mouth every 6 hours as needed for pain for up to 30 days.Disp: 120 tabletRfl: 0 Prescriptions as of 02/20/2025 - traMADol (ULTRAM) 50 mg tablet Take 1 tablet by mouth every 6 hours as needed for pain for up to 30 days. - gabapentin (NEURONTIN) 400 mg capsule Take 1 capsule by mouth two times a day for 180 days. - amoxicillin (AMOXIL) 500 mg capsule Take 4 capsules by mouth prior to dental procedure. - multivitamin tablet Take 1 tablet by mouth once daily. - celecoxib (CELEBREX) 200 mg capsule Take 1 capsule by mouth twice daily. Take with food. - tamsulosin (FLOMAX) 0.4 mg Take 1 capsule by mouth daily at bedtime. - metoprolol succinate ER (TOPROL XL) 100 mg Take 0.5 tablets by mouth once daily. - metFORMIN (GLUCOPHAGE) 1,000 mg tablet Take 1 tablet by mouth two times a day with meals. - atorvastatin (LIPITOR) 20 mg tablet Take 1 tablet by mouth once daily. - hydrOXYchloroQUINE (PLAQUENIL) 200 mg tablet Take 1 tablet by mouth every afternoon. - blood sugar diagnostic (TRUE METRIX GLUCOSE TEST STRIP) test strip Test blood sugar(s) 3 times daily. Insulin: Yes - Lancets lancets Test blood sugar(s) 4 times daily. Dx: Type 2 DM - Controlled E11.9 Insulin: Yes - CPAP Initiate CPAP @ 7 cm of water with humidification. Mask (per patient preference) optional chin strap (if indicated) , filters, tubing, humidifier and lifetime supplies. - aspirin, enteric coated (ADULT ASPIRIN EC LOW STRENGTH) 81 mg EC tablet Take 1 tablet by mouth every 48 hours. 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] 02/24/2009 Displacement of Lumbar Intervertebral Disc with*08/11/2009 Sleep Apnea [G47.30] 11/07/2009 Buttock pain [M79.18] 02/18/2014 Low back pain [M54.50] 02/18/2014 Lumbosacral neuritis [M54.17] 02/18/2014 Lumbar spondylosis [M47.816] 02/18/2014 Lumbar degenerative disc disease [M51.369] 02/18/2014 Mixed hyperlipidemia [E78.2] 10/29/2015 Ischial bursitis of left side [M70.72] 11/08/2015 Nonrheumatic aortic valve stenosis [I35.0] 05/31/2019 Coronary artery disease involving [place] malik*09/18/2020 Thrombocytopenia (HCC) [D69.6] 01/07/2023 Longstanding persistent atrial fibrillation (HC*01/07/2023 Peripheral arterial disease (HCC) [I73.9] 06/16/2023 Prescriptions ordered this encounter Disp Refills Start End TRAMADOL 50 MG TABLET 120 * 0 02/20/2025 03/22/2025 Route: PO Sig: Take 1 tablet by mouth every 6 hours as needed for pain for up to 30 days. Medications Discontinued During This Encounter Prescriptions - traMADol (ULTRAM) 50 mg tablet (Discontinued) Take 1 tablet by mouth every 6 hours as needed for pain for up to 30 days. Encounter Status:Closed by MIKE SOLORZANO on 02/20/25 [facility] CNCOon 02-11-2025 CNCO Letter Text [facility] CNOVon 02-11-2025 CNOV Office Visit (FPWADS ) ----- ASCENCION WEIR ([id number]) 1950 M Date Time Provider Department 02/11/25 3:00 PM AARON SOLORZANO FPWADS During your visit today, we recorded the following information about you: Pulse Blood pressure Weight Height 79/minute 125/62 89 kg 1.727 m Aaron Solorzano MD 02/12/2025 10:25 AM Signed Subjective Ascencion Weir is a 74-year-old male presenting for evaluation of chronic back pain and left hand swelling. Chronic Back Pain: - Chronic back pain, described as killing me every day. - Pain is intermittent, with periods of relief. - Aggravated by walking; unable to walk long distances. - Pain radiates into the hip, primarily on the right side. - Managed with tramadol and other pain relievers. - Under the care of Dr. Johnson, a painter and body work in [place]. - Recent x-rays performed for Dr. Johnson. - Received an epidural steroid injection approximately 3 weeks ago, providing significant relief but not complete resolution. - Denies neuropathic pain or radiation down the legs. Left Hand Swelling: - Swelling and pain in Ascecnion's left hand since November. - Difficulty closing and opening fingers, particularly the left index finger. - Onset after handling a new flag, with a sensation of being stuck in the hand. - X-rays performed, but no foreign body identified. - Swelling and pain persist, but less severe than initially. Anemia: - History of slightly low hemoglobin levels. - Denies any bleeding, melena, or signs of blood loss. Lifestyle: - Reports good blood pressure control. - Bowel and bladder function are normal. Gastrointestinal: (-) melena Musculoskeletal: (+) back pain, (+) right hip pain, (+) difficulty walking, (+) left hand swelling, (+) left hand pain Hematologic/Lymphatic: (-) bleeding Objective Blood pressure 125/62, pulse 79, height 172.7 cm (5' 7.99), weight 89 kg (196 lb 3.4 oz), SpO2 95%. General: No acute distress. CV: Heart sounds normal. Resp: Breath sounds normal. MSK/Ext: Limited ability to lift right leg; swelling and pain in left hand, difficulty opening fingers. Labs: (July) - CMP: Kidney function normal, liver enzymes normal, cholesterol within normal range - Hemoglobin A1c: 5.9% - RBC: Slightly below normal - Hemoglobin: Slightly below normal Imaging: - Spine X-ray (no date provided): Findings not stated in the transcript (November) - Left Hand X-ray: No foreign body identified Assessment AND Plan 1. Lumbar spondylosis (M47.816) 2. Degeneration of intervertebral disc of lumbar region with discogenic back pain and lower extremity pain (M51.362) - Chronic back pain with intermittent exacerbations; recent epidural steroid injection by Dr. Johnson, painter and body work, provided partial relief. - Pain radiates to the hip, particularly on the right side, limiting mobility. - Currently managed with tramadol as needed. - Provided a letter for handicap parking due to significant mobility limitations. - Follow-up with Dr. Johnson for ongoing pain management. 3. Controlled type 2 diabetes mellitus with diabetic neuropathy, with long-term current use of insulin (HCC) (E11.40) - Hemoglobin A1c in July was 5.9%. - Continue current insulin regimen. - Monitor blood glucose levels regularly. 4. Sensation of foreign body in finger (R20.8) - Persistent swelling and pain in the left hand following a suspected foreign body injury in November; X-rays negative for foreign body. - Symptoms have improved but still present. - Monitor for any changes or worsening symptoms. 5. Mixed hyperlipidemia (E78.2) - Cholesterol levels were stable in July. - Continue current lipid-lowering therapy. 6. Anemia of chronic disease (D63.8) - Hemoglobin level slightly below normal in July; no signs of bleeding or blood loss. - Schedule follow-up blood work in June to monitor hemoglobin levels. Recording using [employer] software for draft documentation of the visit was discussed with the patient/authorized registered representative; all questions welcomed and answered. Patient/authorized registered representative agreed to proceed Office Visit on 02/11/25 HEMOGLOBIN A1C COMPREHENSIVE METABOLIC PANEL LIPID PANEL, FASTING COMPLETE BLOOD COUNT Requested Prescriptions No prescriptions requested or ordered in this encounter Aaron Solorzano MD Referring Provider: AARON SOLORZANO [[id number]] Allergies As of Date: 02/11/2025 Noted Allergy Reaction ENTEX PSE (PSEUDOEPHEDRINE-GUAIFE*1 10/12/2006 5 - Intolerance Comments: Patient states he does not have any allergies Date Reviewed: 02/11/2025 Reviewed by: Vernell Hernandez LPN - Fully Assessed Reason for Visit: 6 Month Exam [189] Primary Visit Diagnosis:Lumbar spondylosis [M47.816] Other Visit Diagnoses:Controlled type 2 diabetes mellitus with diabetic ne (more content not included)... Normal [facility] ----- ASCENCION WEIR ([id number]) 1950 M Date Time Provider Department 01/24/25 AARON SOLORZANO During your visit today, we recorded the following information about you: Veronica Chow 01/24/2025 4:06 PM Signed Ascencion is calling Aaron Solorzano MD today with concern regarding medication question Patient asking if he should be taking metFORMIN (GLUCOPHAGE) 1,000 mg tablet Patient has been identified by name and birthdate. Duration of symptoms: N/A Person calling: self Call patient at: on cell [phone] (home) Was an appointment scheduled: No Closing statement: Results or non-symptom based questions: Thank you for calling [facility], your call will be returned within the next business day. Aaron Phelps MD 01/25/2025 10:24 AM Signed Our records show he is to be taking it. Is there some reason he thinks he ought not to take the Metformin 1000 mg twice a day? MD Bruno Nance Crystal, MA 01/25/2025 3:44 PM Signed Spoke with patient and he states he remembered being told at his last visit by the helper, that since his A1c was good, he didn't have to take medications anymore for Diabetes. Informed him that his last office visit notes that he was to continue his current regimen with no changes, so he must have misunderstood something. He expressed understanding. Allergies As of Date: 01/24/2025 Noted Allergy Reaction ENTEX PSE (PSEUDOEPHEDRINE-GUAIFE*1 10/12/2006 5 - Intolerance Comments: Patient states he does not have any allergies Date Reviewed: 12/05/2024 Reviewed by: Jayla Chen LPN - Fully Assessed Reason for Visit: medication question [Other] Prescriptions as of 01/25/2025 - traMADol (ULTRAM) 50 mg tablet Take 1 tablet by mouth every 6 hours as needed for pain for up to 30 days. - multivitamin tablet Take 1 tablet by mouth once daily. - celecoxib (CELEBREX) 200 mg capsule Take 1 capsule by mouth twice daily. Take with food. - tamsulosin (FLOMAX) 0.4 mg Take 1 capsule by mouth daily at bedtime. - metoprolol succinate ER (TOPROL XL) 100 mg Take 0.5 tablets by mouth once daily. - gabapentin (NEURONTIN) 400 mg capsule Take 1 capsule by mouth two times a day for 180 days. - metFORMIN (GLUCOPHAGE) 1,000 mg tablet Take 1 tablet by mouth two times a day with meals. - atorvastatin (LIPITOR) 20 mg tablet Take 1 tablet by mouth once daily. - hydrOXYchloroQUINE (PLAQUENIL) 200 mg tablet Take 1 tablet by mouth every afternoon. - amoxicillin (AMOXIL) 500 mg capsule Take 4 capsules by mouth prior to dental procedure. - blood sugar diagnostic (TRUE METRIX GLUCOSE TEST STRIP) test strip Test blood sugar(s) 3 times daily. Insulin: Yes - Lancets lancets Test blood sugar(s) 4 times daily. Dx: Type 2 DM - Controlled E11.9 Insulin: Yes - CPAP Initiate CPAP @ 7 cm of water with humidification. Mask (per patient preference) optional chin strap (if indicated) , filters, tubing, humidifier and lifetime supplies. - aspirin, enteric coated (ADULT ASPIRIN EC LOW STRENGTH) 81 mg EC tablet Take 1 tablet by mouth every 48 hours. - COMPOUNDED PRESCRIPTION Accu-chek Lois Meter with multiclix lancet device use as directed Problem List As Of Date 01/24/2025 Noted Resolved HYPERLIPIDEMIA NEC/NOS [E78.5] 10/29/2015 SCIATICA [M54.30] Controlled type 2 diabetes mellitus with diabet*10/08/2005 OBESITY NOS [E66.9] 12/27/2005 LUMBAGO [M54.50] 03/29/2006 Benign Neoplasm of Skin of Trunk, except Scrotu*10/03/2006 07/04/2009 BENIGN HYPERTENSION [I10] 12/19/2007 ABSCESS ANAL [K61.2] 08/13/2008 07/04/2009 IDIOPATHIC URTICARIA [L50.1] 02/24/2009 Displacement of Lumbar Intervertebral Disc with*08/11/2009 Sleep Apnea [G47.30] 11/07/2009 Buttock pain [M79.18] 02/18/2014 Low back pain [M54.50] 02/18/2014 Lumbosacral neuritis [M54.17] 02/18/2014 Lumbar spondylosis [M47.816] 02/18/2014 Lumbar degenerative disc disease [M51.369] 02/18/2014 Mixed hyperlipidemia [E78.2] 10/29/2015 Ischial bursitis of left side [M70.72] 11/08/2015 Nonrheumatic aortic valve stenosis [I35.0] 05/31/2019 Coronary artery disease involving [place] malik*09/18/2020 Thrombocytopenia (HCC) [D69.6] 01/07/2023 Longstanding persistent atrial fibrillation (HC*01/07/2023 Peripheral arterial disease (HCC) [I73.9] 06/16/2023 Encounter Status:Closed by MIKE SOLORZANO on 01/25/25 Normal [facility] L/S Spine w Bend Min 6 on 01-09-2025 L/S Spine w Bend Min 6 [facility] [address] [place], [place] [address] (400) L/S Spine w Bend Min 6 MR#: [id number] Acct: [id number] Name: ASCENCION WEIR Fay Rep #: [id number] : 1950 M 74 From: Alex Gupta MD PCP: Dr. Mike Solorzano MD Status: REG CLI Study: L/S Spine w Bend Min 6 Vw Date of Exam: Exam# [id number] Ordering Dr: Lucy Velasco PROCEDURE: L/S SPINE W BEND MIN 6 VW 01/09/2025 REASON FOR EXAM: LUMBAR DEGENERATIVE DISC DISEASE TECHNIQUE: 6 views; AP, bilateral oblique, lateral and flexion-extension COMPARISON: None available FINDINGS: 5 [id number] lumbar vertebral body types identified. Leftward curvature, scoliosis. Partially imaged intraspinal stimulator. Study is limited due to the curvature and multilevel degenerative changes. No spondylolysis identified. No fracture or malalignment identified. Multilevel spondylosis/discogenic change appears greatest at L1-2 and L3-4. Aortoiliac atherosclerotic calcification. No evidence of instability. Large flowing osteophyte formation. RAD/L/S Spine w Bend Min 6 Vw IMPRESSION: Multilevel spondylosis/discogenic change. Leftward curvature, scoliosis. Reading Location: [id number] CC: Lucy Velasco; Dr. Mike Solorzano MD Hotel Director: Signed [facility] 01-02-2025 [facility] Telephone (KARI) ----- ASCENCION WEIR ([id number]) 1950 M Date Time Provider Department 01/02/25 AARON SOLORZANO During your visit today, we recorded the following information about you: Vernell Hernandez LPN 01/02/2025 2:58 PM Signed Received [facility] pt. Placed in provider's inbox for review. Route to MA scanning Allergies As of Date: 01/02/2025 Noted Allergy Reaction ENTEX PSE (PSEUDOEPHEDRINE-GUAIFE*1 10/12/2006 5 - Intolerance Comments: Patient states he does not have any allergies Date Reviewed: 12/05/2024 Reviewed by: Jayla Chen LPN - Fully Assessed Reason for Visit: Received Outside Medical Records [[id number]] Cmt: [facility] PT discharge Prescriptions as of 01/02/2025 - traMADol (ULTRAM) 50 mg tablet Take 1 tablet by mouth every 6 hours as needed for pain for up to 30 days. - multivitamin tablet Take 1 tablet by mouth once daily. - celecoxib (CELEBREX) 200 mg capsule Take 1 capsule by mouth twice daily. Take with food. - tamsulosin (FLOMAX) 0.4 mg Take 1 capsule by mouth daily at bedtime. - metoprolol succinate ER (TOPROL XL) 100 mg Take 0.5 tablets by mouth once daily. - gabapentin (NEURONTIN) 400 mg capsule Take 1 capsule by mouth two times a day for 180 days. - metFORMIN (GLUCOPHAGE) 1,000 mg tablet Take 1 tablet by mouth two times a day with meals. - atorvastatin (LIPITOR) 20 mg tablet Take 1 tablet by mouth once daily. - hydrOXYchloroQUINE (PLAQUENIL) 200 mg tablet Take 1 tablet by mouth every afternoon. - amoxicillin (AMOXIL) 500 mg capsule Take 4 capsules by mouth prior to dental procedure. - blood sugar diagnostic (TRUE METRIX GLUCOSE TEST STRIP) test strip Test blood sugar(s) 3 times daily. Insulin: Yes - Lancets lancets Test blood sugar(s) 4 times daily. Dx: Type 2 DM - Controlled E11.9 Insulin: Yes - CPAP Initiate CPAP @ 7 cm of water with humidification. Mask (per patient preference) optional chin strap (if indicated) , filters, tubing, humidifier and lifetime supplies. - aspirin, enteric coated (ADULT ASPIRIN EC LOW STRENGTH) 81 mg EC tablet Take 1 tablet by mouth every 48 hours. 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] 02/24/2009 Displacement of Lumbar Intervertebral Disc with*08/11/2009 Sleep Apnea [G47.30] 11/07/2009 Buttock pain [M79.18] 02/18/2014 Low back pain [M54.50] 02/18/2014 Lumbosacral neuritis [M54.17] 02/18/2014 Lumbar spondylosis [M47.816] 02/18/2014 Lumbar degenerative disc disease [M51.369] 02/18/2014 Mixed hyperlipidemia [E78.2] 10/29/2015 Ischial bursitis of left side [M70.72] 11/08/2015 Nonrheumatic aortic valve stenosis [I35.0] 05/31/2019 Coronary artery disease involving la jolla malik*09/18/2020 Thrombocytopenia (HCC) [D69.6] 01/07/2023 Longstanding persistent atrial fibrillation (HC*01/07/2023 Peripheral arterial disease (HCC) [I73.9] 06/16/2023 Encounter Status:Closed by VERNELL HERNANDEZ on 01/02/25 [facility] 01-01-2025 [facility] Telephone (FPWADS) ----- ASCENCION WEIR ([id number]) 1950 M Date Time Provider Department 01/01/25 AARON SOLORZANO During your visit today, we recorded the following information about you: Veronica Chow 01/01/2025 10:04 AM Signed Patient requesting medication that is not current on list tramadol hcl(ULTRAM 50 MG TA Patient last seen 11-08-24 Future visit scheduled: yes PHARMACY: [facility] Allergies As of Date: 01/01/2025 Noted Allergy Reaction ENTEX PSE (PSEUDOEPHEDRINE-GUAIFE*1 10/12/2006 5 - Intolerance Comments: Patient states he does not have any allergies Date Reviewed: 12/05/2024 Reviewed by: Jayla Chen LPN - Fully Assessed Reason for Visit: Refill Request [94] Visit Diagnoses:Lumbosacral neuritis [M54.17] Lumbar spondylosis [M47.816] Order(s):traMADol (ULTRAM) 50 mg tabletTake 1 tablet by mouth every 6 hours as needed for pain for up to 30 days.Disp: 120 tabletRfl: 0 Prescriptions as of 01/04/2025 - traMADol (ULTRAM) 50 mg tablet Take 1 tablet by mouth every 6 hours as needed for pain for up to 30 days. - multivitamin tablet Take 1 tablet by mouth once daily. - celecoxib (CELEBREX) 200 mg capsule Take 1 capsule by mouth twice daily. Take with food. - tamsulosin (FLOMAX) 0.4 mg Take 1 capsule by mouth daily at bedtime. - metoprolol succinate ER (TOPROL XL) 100 mg Take 0.5 tablets by mouth once daily. - gabapentin (NEURONTIN) 400 mg capsule Take 1 capsule by mouth two times a day for 180 days. - metFORMIN (GLUCOPHAGE) 1,000 mg tablet Take 1 tablet by mouth two times a day with meals. - atorvastatin (LIPITOR) 20 mg tablet Take 1 tablet by mouth once daily. - hydrOXYchloroQUINE (PLAQUENIL) 200 mg tablet Take 1 tablet by mouth every afternoon. - amoxicillin (AMOXIL) 500 mg capsule Take 4 capsules by mouth prior to dental procedure. - blood sugar diagnostic (TRUE METRIX GLUCOSE TEST STRIP) test strip Test blood sugar(s) 3 times daily. Insulin: Yes - Lancets lancets Test blood sugar(s) 4 times daily. Dx: Type 2 DM - Controlled E11.9 Insulin: Yes - CPAP Initiate CPAP @ 7 cm of water with humidification. Mask (per patient preference) optional chin strap (if indicated) , filters, tubing, humidifier and lifetime supplies. - aspirin, enteric coated (ADULT ASPIRIN EC LOW STRENGTH) 81 mg EC tablet Take 1 tablet by mouth every 48 hours. 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] 02/24/2009 Displacement of Lumbar Intervertebral Disc with*08/11/2009 Sleep Apnea [G47.30] 11/07/2009 Buttock pain [M79.18] 02/18/2014 Low back pain [M54.50] 02/18/2014 Lumbosacral neuritis [M54.17] 02/18/2014 Lumbar spondylosis [M47.816] 02/18/2014 Lumbar degenerative disc disease [M51.369] 02/18/2014 Mixed hyperlipidemia [E78.2] 10/29/2015 Ischial bursitis of left side [M70.72] 11/08/2015 Nonrheumatic aortic valve stenosis [I35.0] 05/31/2019 Coronary artery disease involving la jolla malik*09/18/2020 Thrombocytopenia (HCC) [D69.6] 01/07/2023 Longstanding persistent atrial fibrillation (HC*01/07/2023 Peripheral arterial disease (HCC) [I73.9] 06/16/2023 Prescriptions ordered this encounter Disp Refills Start End TRAMADOL 50 MG TABLET 120 * 0 01/01/2025 01/31/2025 Route: ORAL Sig: Take 1 tablet by mouth every 6 hours as needed for pain for up to 30 days. Medications Discontinued During This Encounter Prescriptions - traMADol (ULTRAM) 50 mg tablet (Discontinued) Take 1 tablet by mouth every 6 hours as needed for pain for up to 30 days. Encounter Status:Closed by MIKE SOLORZANO on 01/01/25 [facility] PT D/C Summary (1)on 025 PT D/C Summary (1) [facility] [address] [place] [address] / REHABILITATION SERVICES DISCHARGE SUMMARY MR#: [id number] Acct: [id number] Name: ASCENCION WEIR Rep #: [id number] : 1950 74 From: Jean Claude Berman DPT, OCS, CSCS Referring Dr.: Dr. Mike Solorzano MD Status: R EG RCR Insurance: [employer] SELF PAY INSURANCE Discharge Summary D/C summary: It has been my pleasure to treat ASCENCION WEIR referred by Dr. Mike Solorzano MD, with the diagnosis of Balance problems for a total of 13 visit(s). Discharge Date: 01/01/25 Please see the following information for a summary of their discharge status. Subjective Subjective: Not seeing much improvement, maybe a little better in movement adn ROM back. Has appointment for back injections and will have hip looked at . Hip pain and tightness is holding him back. Balance is not much different. No falls laately, not catching to e as much. Pain Bilateral Back: Pain Intensity (Out of 10): 7 Overall Improvement % Improvement: 5 Objective Objective/Function: 10 # R DF, not improving. Walksing with L steppage adn neuropathic gait pattern. Safe without AD but slow. Overall not feeling much better and pain LB and R hip is frustrating factor, he will be going to pain management for that and may request back in after pain is improved if desired. Goals Goal 1:: I appropriate HEP for DF and ankle strength, weight shifting and gastroc stretching. Goal Progress: Goal Met Goal 2:: 30# R ankle DF strength Goal Progress: Not Progressing Goal 3:: pt feel 50% improved in overall balance and no falls Goal Progress: Not Progressing Goal 4:: stand c wihtout immediate LOB 15 seconds. Goal Progress: Not Progressing Plan Plan: d/c D/C Information Discharge Comments: Pt not progressing with strength Df, feeling of improved balance or pain. Will check with next step which he says is pain management. d/c sentence: If there are questions or concerns regarding this patient's physical therapy, please feel free to call me at [phone]. Thank you for the referral of this patient. Sincerely, Jean Claude Berman, DPT, OCS, CSCS Balance/Gait/Functional tests Balance/Special Test Scores Functional Gait Assessment Score: 18 % Disability: 40.0000 CATSIB Score (Max score 120 seconds): 60 Lower Extremity Functional Score: 33 Improvement % Improvement: 5 01/01/25 1516 CC: Dr. Mike Solorzano MD EBG Signed Normal [facility] 12-26-2024 [facility] Telephone (FPWADS) ----- ASCENCION WEIR ([id number]) 1950 M Date Time Provider Department 12/26/24 AARON SOLORZANO FPFUENTESDS During your visit today, we recorded the following information about you: Vernell Hernandez LPN 12/26/2024 2:07 PM Signed Received [facility] report from [facility]. Placed in provider's inbox for review. Route to MA scanning Allergies As of Date: 12/26/2024 Noted Allergy Reaction ENTEX PSE (PSEUDOEPHEDRINE-GUAIFE*1 10/12/2006 5 - Intolerance Comments: Patient states he does not have any allergies Date Reviewed: 12/05/2024 Reviewed by: Jayla Chen LPN - Fully Assessed Reason for Visit: Received Outside Medical Records [[id number]] Cmt: Echo [facility] Prescriptions as of 12/26/2024 - multivitamin tablet Take 1 tablet by mouth once daily. - traMADol (ULTRAM) 50 mg tablet Take 1 tablet by mouth every 6 hours as needed for pain for up to 30 days. - celecoxib (CELEBREX) 200 mg capsule Take 1 capsule by mouth twice daily. Take with food. - tamsulosin (FLOMAX) 0.4 mg Take 1 capsule by mouth daily at bedtime. - metoprolol succinate ER (TOPROL XL) 100 mg Take 0.5 tablets by mouth once daily. - gabapentin (NEURONTIN) 400 mg capsule Take 1 capsule by mouth two times a day for 180 days. - metFORMIN (GLUCOPHAGE) 1,000 mg tablet Take 1 tablet by mouth two times a day with meals. - atorvastatin (LIPITOR) 20 mg tablet Take 1 tablet by mouth once daily. - hydrOXYchloroQUINE (PLAQUENIL) 200 mg tablet Take 1 tablet by mouth every afternoon. - amoxicillin (AMOXIL) 500 mg capsule Take 4 capsules by mouth prior to dental procedure. - blood sugar diagnostic (TRUE METRIX GLUCOSE TEST STRIP) test strip Test blood sugar(s) 3 times daily. Insulin: Yes - Lancets lancets Test blood sugar(s) 4 times daily. Dx: Type 2 DM - Controlled E11.9 Insulin: Yes - CPAP Initiate CPAP @ 7 cm of water with humidification. Mask (per patient preference) optional chin strap (if indicated) , filters, tubing, humidifier and lifetime supplies. - aspirin, enteric coated (ADULT ASPIRIN EC LOW STRENGTH) 81 mg EC tablet Take 1 tablet by mouth every 48 hours. 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] 02/24/2009 Displacement of Lumbar Intervertebral Disc with*08/11/2009 Sleep Apnea [G47.30] 11/07/2009 Buttock pain [M79.18] 02/18/2014 Low back pain [M54.50] 02/18/2014 Lumbosacral neuritis [M54.17] 02/18/2014 Lumbar spondylosis [M47.816] 02/18/2014 Lumbar degenerative disc disease [M51.369] 02/18/2014 Mixed hyperlipidemia [E78.2] 10/29/2015 Ischial bursitis of left side [M70.72] 11/08/2015 Nonrheumatic aortic valve stenosis [I35.0] 05/31/2019 Coronary artery disease involving la jolla malik*09/18/2020 Thrombocytopenia (HCC) [D69.6] 01/07/2023 Longstanding persistent atrial fibrillation (HC*01/07/2023 Peripheral arterial disease (HCC) [I73.9] 06/16/2023 Encounter Status:Closed by VERNELL HERNANDEZ on 12/26/24 Normal [facility] Echo Complete W/ Contraston 12-25-2024 Echo Complete W/ Contrast [facility] [address] [place] [address] Echo Complete W/ Contrast 12/25/24 1347 MR#: [id number] Acct: [id number] Name: ASCENCION WEIR Rep #: [id number] : 1950 74 From: Rod Maravilla MD Attending Dr: Dr. Rod Maravilla MD Status: REG CLI Ordering Dr: Rod Maravilla MD Date: 12/25/24 Location: [facility] Sex: M C Admitted: Reason For Study Reason For Study: Aortic Stenosis Procedure This was a 2D Doppler, Color Flow transthoracic echocardiogram. The study was technically difficult. Contrast injection was performed. Exam performed in department. Left Ventricle Mild concentric left ventricular hypertrophy. Normal LV size. The LV systolic function is normal. EF is 65 %. Stage 1 diastolic dysfunction. Right Ventricle Normal right ventricle. Atria The left atrium is moderately enlarged. Normal right atrium. Mitral Valve Trivial mitral valve insufficiency. Tricuspid Valve Mild tricuspid valve insufficiency. Normal pulmonary artery pressure. Aortic Valve Bioprosthetic aortic valve functioning normally. Mean peak gradient 7.7 mmHg. Pulmonic Valve The pulmonic valve is not well visualized. Great Vessels Normal sized aortic root. Pericardium/Pleural No pericardial effusion. Medication 22 gauge I.V. with prn adaptor inserted into right arm. Diluted definity 2ml given slow IV push to enhance endocardial definition. MMode/2D Measurements Calculations LVIDd: 4.3 cm IVSd: 1.1 cm LVOT diam: 2.0 cm LVIDs: 2.8 cm LVPWd: 1.2 cm RVDd: 4.0 cm FS: 35.6 % LVOT area: 3.3 cm2 Ao root diam: 3.3 cm LAV(MOD-bp): 63.0 ml LVAd ap4: 28.0 cm2 LAV(MOD-bp) Indexed: 31.5 ml/m2 LVLd ap4: 8.0 cm LAV(MOD-sp2): 77.3 ml EDV(MOD-sp4): 80.5 ml LAV(MOD-sp4): 51.4 ml EDV(sp4-el): 83.2 ml LVAs ap4: 16.4 cm2 LVLs ap4: 6.4 cm ESV(MOD-sp4): 35.4 ml ESV(sp4-el): 35.8 ml EF(MOD-sp4): 56.1 % EF(sp4-el): 57.0 % SV(MOD-sp4): 45.1 ml SV(sp4-el): 47.4 ml LA A4 area: 19.8 cm2 SI(MOD-sp4): 22.6 ml/m2 LA dimension(2D): 4.7 cm RA A4 area: 14.1 cm2 TAPSE: 1.3 cm Time Measurements MV dec time: 0.39 sec Doppler Measurements Calculations MV E max lynette: 80.0 cm/sec Lat Peak E' Lynette: 7.3 cm/sec Med Peak E' Lynette: 5.2 cm/sec MV A max lynette: 131.9 cm/sec E/E' lat: 10.9 E/E' med: 15.5 MV E/A: 0.61 MV V2 max: 154.0 cm/sec MV P1/2t max lynette: 101.2 cm/sec Ao V2 max: 207.4 cm/sec MV max P.5 mmHg MV P1/2t: 130.5 msec Ao max P.2 mmHg MV V2 mean: 75.4 cm/sec MV dec slope: 227.0 cm/sec2 Ao V2 mean: 127.5 cm/sec MV mean P.7 mmHg MVA(P1/2t): 1.7 cm2 Ao mean P.7 mmHg MV V2 VTI: 39.8 cm Ao V2 VTI: 37.7 cm MVA(VTI): 2.0 cm2 AV (velocity ratio): 0.63 MARGARET(I,D): 2.1 cm2 MARGARET(V,D): 1.6 cm2 LV V1 max: 104.4 cm/sec SV(LVOT): 77.7 ml TR max lynette: 263.1 cm/sec LV V1 max P.4 mmHg TR max P.7 mmHg LV V1 mean P.8 mmHg LV V1 mean: 79.3 cm/sec LV V1 VTI: 23.9 cm ECHO/Echo Complete W/ Contrast Interpretation Summary Mild concentric left ventricular hypertrophy. The LV systolic function is normal. EF is 65 %. Stage 1 diastolic dysfunction. The left atrium is moderately enlarged. Mild tricuspid valve insufficiency. Bioprosthetic aortic valve functioning normally. Mean peak gradient 7.7 mmHg. ___ Ordering Physician: Rod Maravilla Referring Physician: Rod Maravilla Performed By: Palmer Bolton RCS 12/26/24 0846 Date Rod Maravilla MD CC: Dr. Rod Maravilla MD; Dr. Mike Solorzano MD Date Dictated: 12/25/24 1347 Date Transcribed: 12/26/24 08 Hotel Director: Signed Normal [facility] 12-13-2024 [facility] Telephone (FPWADS) ----- ASCENCION WEIR ([id number]) 1950 M Date Time Provider Department 12/13/24 AARON SOLORZANO During your visit today, we recorded the following information about you: Vernell Hernandez LPN 12/13/2024 5:07 PM Signed Received lab results from [facility]. Placed in provider's inbox for review. Route to MA scanning Allergies As of Date: 12/13/2024 Noted Allergy Reaction ENTEX PSE (PSEUDOEPHEDRINE-GUAIFE*1 10/12/2006 5 - Intolerance Comments: Patient states he does not have any allergies Date Reviewed: 12/05/2024 Reviewed by: Jayla Chen LPN - Fully Assessed Reason for Visit: Received Outside Medical Records [[id number]] Cmt: [facility] labs Prescriptions as of 12/13/2024 - multivitamin tablet Take 1 tablet by mouth once daily. - traMADol (ULTRAM) 50 mg tablet Take 1 tablet by mouth every 6 hours as needed for pain for up to 30 days. - celecoxib (CELEBREX) 200 mg capsule Take 1 capsule by mouth twice daily. Take with food. - tamsulosin (FLOMAX) 0.4 mg Take 1 capsule by mouth daily at bedtime. - metoprolol succinate ER (TOPROL XL) 100 mg Take 0.5 tablets by mouth once daily. - gabapentin (NEURONTIN) 400 mg capsule Take 1 capsule by mouth two times a day for 180 days. - metFORMIN (GLUCOPHAGE) 1,000 mg tablet Take 1 tablet by mouth two times a day with meals. - atorvastatin (LIPITOR) 20 mg tablet Take 1 tablet by mouth once daily. - hydrOXYchloroQUINE (PLAQUENIL) 200 mg tablet Take 1 tablet by mouth every afternoon. - amoxicillin (AMOXIL) 500 mg capsule Take 4 capsules by mouth prior to dental procedure. - blood sugar diagnostic (TRUE METRIX GLUCOSE TEST STRIP) test strip Test blood sugar(s) 3 times daily. Insulin: Yes - Lancets lancets Test blood sugar(s) 4 times daily. Dx: Type 2 DM - Controlled E11.9 Insulin: Yes - CPAP Initiate CPAP @ 7 cm of water with humidification. Mask (per patient preference) optional chin strap (if indicated) , filters, tubing, humidifier and lifetime supplies. - aspirin, enteric coated (ADULT ASPIRIN EC LOW STRENGTH) 81 mg EC tablet Take 1 tablet by mouth every 48 hours. 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] 02/24/2009 Displacement of Lumbar Intervertebral Disc with*08/11/2009 Sleep Apnea [G47.30] 11/07/2009 Buttock pain [M79.18] 02/18/2014 Low back pain [M54.50] 02/18/2014 Lumbosacral neuritis [M54.17] 02/18/2014 Lumbar spondylosis [M47.816] 02/18/2014 Lumbar degenerative disc disease [M51.369] 02/18/2014 Mixed hyperlipidemia [E78.2] 10/29/2015 Ischial bursitis of left side [M70.72] 11/08/2015 Nonrheumatic aortic valve stenosis [I35.0] 05/31/2019 Coronary artery disease involving la jolla malik*09/18/2020 Thrombocytopenia (HCC) [D69.6] 01/07/2023 Longstanding persistent atrial fibrillation (HC*01/07/2023 Peripheral arterial disease (HCC) [I73.9] 06/16/2023 Encounter Status:Closed by VERNELL HERNANDEZ on 12/13/24 Normal [facility] Anion gap in Serum or Plasma Ordered By: Rod Maravilla on 12-11-2024 Anion gap [Moles/Vol] 10 mmol/L 01-10 [facility] BUN/creatinine ratioOrdered By: Rod Maravilla on 12-11-2024 Urea nitrogen/Creatinine [Mass ratio] 16.1 mg/mg 06-17 [facility] Bilirubin, totalOrdered By: Rod Maravilla on 12-11-2024 Bilirubin [Mass/Vol] 0.41 mg/dL 0.00-1.30 [facility] Calculated very low density lipoprotein (VLDL) cholesterol measurementOrdered By: Rod Maravilla on 12-11-2024 Calculated very low density lipoprotein (VLDL) cholesterol measurement 21 mg/dL 5-40 [facility] VLDL Cholesterol 21 mg/dL 5-40 [facility] Carbon dioxide, total [Moles /volume] in Central venous bloodOrdered By: Rod Maravilla on 12-11-2024 CO2 [Moles/Vol] 25.9 mmol/L 21.0-32.0 [facility] Chloride assayOrdered By: Roshan Maravilla on 12-11-2024 Chloride [Moles/Vol] 103 mmol/L 98-108 [facility] Comprehensive Metabolic Prof ilon 12-11-2024 Albumin [Mass/Vol] 4.3 g/dL Normal 3.4-4.8 [facility] Comment on above: Performed By: #### L 500.4100, L500.4050 #### [facility] [address] [place], [address] Albumin/Globulin [Mass ratio] 1.5 {ratio} Normal 0.9-2.4 [facility] Comment on above: Performed By: #### L 500.4100, L500.4050 #### [facility] [address] [place], [address] ALK PHOS 94 U/L Normal 40-129 [facility] Comment on above: Performed By: #### L 500.4100, L500.4050 #### [facility] [address] [place], [address] ALT [Catalytic activity/Vol] 17 U/L Normal <=46 [facility] Comment on above: Performed By: #### L 500.4100, L500.4050 #### [facility] [address] [place], [address] AST [Catalytic activity/Vol] 23 U/L Normal <=37 [facility] Comment on above: Performed By: #### L 500.4100, L500.4050 #### [facility] [address] [place], [address] Bilirubin [Mass/Vol] 0.41 mg/dL Normal 0.00-1.30 [facility] Comment on above: Performed By: #### L 500.4100, L500.4050 #### [facility] [address] [place], [address] BUN/CRE 16.1 RATIO Normal 10-20 [facility] Comment on above: Performed By: #### L 500.4100, L500.4050 #### [facility] [address] [place], [address] Calcium [Mass/Vol] 9.5 mg/dL Normal 7.6-11.0 [facility] Comment on above: Performed By: #### L 500.4100, L500.4050 #### [facility] Laboratory [address] [place], [address] Chloride [Moles/Vol] 103 mmol/L Normal 98-108 [facility] Comment on above: Performed By: #### L 500.4100, L500.4050 #### [facility] [address] [place], [address] CO2 [Moles/Vol] 25.9 mmol/L Normal 21.0-32.0 [facility] Comment on above: Performed By: #### L 500.4100, L500.4050 #### [facility] [address] [place], [address] Creatinine [Mass/Vol] 0.98 mg/dL Normal 0.70-1.20 [facility] Comment on above: Performed By: #### L 500.4100, L500.4050 #### [facility] [address] [place], [address] GAP 10 Normal 5-15 [facility] Comment on above: Performed By: #### L 500.4100, L500.4050 #### [facility] [address] [place], [address] GFR/1.73 sq M.predicted among non-blacks MDRD (S/P/Bld) [Vol rate/Area] 80 mL/min/{1.73_m2} Normal >60 [facility] Comment on above: Result Comment: mL/m in/1.73m2 CKD-EPI Creatinine Equation (2020) Performed By: #### L 500.4100, L500.4050 #### [facility] [address] [place], [address] Globulin (S) [Mass/Vol] 2.9 g/dL Normal 2.2-4.2 [facility] Comment on above: Performed By: #### L 500.4100, L500.4050 #### [facility] [address] [place], [address] Glucose [Mass/Vol] 156 mg/dL High 70-99 [facility] Comment on above: Performed By: #### L 500.4100, L500.4050 #### [facility] [address] [place], [address] Potassium [Moles/Vol] 4.8 mmol/L Normal 3.3-5.1 [facility] Comment on above: Performed By: #### L 500.4100, L500.4050 #### [facility] [address] [place], [address] Sodium [Moles/Vol] 139 mmol/L Normal 133-145 [facility] Comment on above: Performed By: #### L 500.4100, L500.4050 #### [facility] [address] [place], [address] T PROT 7.2 g/dL Normal 5.9-8.4 [facility] Comment on above: Performed By: #### L 500.4100, L500.4050 #### [facility] [address] [place], [address] Urea nitrogen [Mass/Vol] 16 mg/dL Normal 4-19 [facility] Comment on above: Performed By: #### L 500.4100, L500.4050 #### [facility] [address] [place], [address] GFR/1.73 sq M.predicted christiano g non-blacks MDRD (S/P/Bld) [Vol rate/Area]Ordered By: Rod Maravilla on 12-11-2024 Estimated GFR (MDRD) Non-Af Amer 80 >60 [facility] Comment on above: mL/min/1.73m2 CKD-EP I Creatinine Equation (2020) Glomerular filtration rate ( GFR) estimation/1.73 sq m using serum, plasma, or whole bOrdered By: Rod Maravilla on 12-11-2024 GFR/1.73 sq M.predicted among non-blacks MDRD (S/P/Bld) [Vol rate/Area] 80 mL/min/{1.73_m2} >60 [facility] Comment on above: mL/min/1.73m2 CKD-EP I Creatinine Equation (2020) LDL calc ser/plasOrdered By: Rod Maravilla on 12-11-2024 Cholesterol in LDL [Mass/Vol] 65 mg/dL [facility] Comment on above: Hrplqtxcyh=447-114 m g/dL & Higher Yjdc=667 mg/dL or greater LDL Cholesterol, Calculated 65 mg/dL [facility] Comment on above: Pogbgxmpeu=072-210 m g/dL & Higher Wrij=720 mg/dL or greater Laboratory - Chemistry and C hemistry - challengeOrdered By: Rod Maravilla on 12-11-2024 AST [Catalytic activity/Vol] 23 U/L <38 [facility] Lipid Profileon 12-11-2024 CHOL:HDL 2.94 Normal [facility] Comment on above: Performed By: #### L 500.4100, L500.4050 #### [facility] [address] [place], [address] Cholesterol [Mass/Vol] 130 mg/dL Normal <=200 [facility] Comment on above: Result Comment: Chol esterol level, Desirable <200 mg/dL Borderline high cholesterol 200-239 mg/dL High cholesterol >=240 mg/dL Recommendations of the NCEP Adult Treatment Panel for the following risk-cutoff thresholds for the [place] population. Performed By: #### L 500.4100, L500.4050 #### [facility] [address] [place], [address] Cholesterol in HDL [Mass/Vol] 44 mg/dL Normal [facility] Comment on above: Result Comment: Kaylin onal Cholesterol Education Program (NCEP) guidelines: <40 mg/dL: Low HDL-cholesterol (major risk factor for CHD) >= 60 mg/dL: High HDL-cholesterol (negative risk factor for CHD) HDL-cholesterol is affected by a number of factors, e.g. smoking, exercise, hormones, sex and age. Performed By: #### L 500.4100, L500.4050 #### [facility] [address] [place], [address] Cholesterol in LDL [Mass/Vol] 65 mg/dL Normal [facility] Comment on above: Result Comment: Bord hhisja=277-093 mg/dL Higher Gkri=805 mg/dL or greater Performed By: #### L 500.4100, L500.4050 #### [facility] [address] [place], [address] Cholesterol in VLDL [Mass/Vol] 21 mg/dL Normal 5-40 [facility] Comment on above: Performed By: #### L 500.4100, L500.4050 #### [facility] [address] [place], [address] Triglyceride [Mass/Vol] 105 mg/dL Normal [facility] Comment on above: Result Comment: The drugs N-Acetylcysteine and Metamizole may falsely depress this assay. Normal range: <150 mg/dL Borderline High: 150-199 mg/dL High: 200-499 mg/dL Very High: >500 mg/dL Performed By: #### L 500.4100, L500.4050 #### [facility] [address] [place], [address] Potassium (Unsp spec) [Mass/ Vol]Ordered By: Rod Maravilla on 12-11-2024 Potassium [Moles/Vol] 4.8 mmol/L 3.3-5.1 [facility] Potassium measurement (mass/ volume)Ordered By: Rod Maravilla on 12-11-2024 Potassium (Unsp spec) [Mass/Vol] 4.8 mmol/L 3.3-5.1 [facility] Screening total cholesterol/ high density lipoprotein (HDL) cholesterol ratioOrdered By: Rod Maravilla on 12-11-2024 Cholesterol.total/Chol esterol in HDL [Mass ratio] 2.94 {ratio} [facility] Serum creatinine measurement (mass/volume)Ordered By: Rod Maravilla on 12-11-2024 Creatinine [Mass/Vol] 0.98 mg/dL 0.70-1.20 [facility] Serum globulin measurementOr dered By: Rod Maravilla on 12-11-2024 Globulin (S) [Mass/Vol] 2.9 g/dL 2.2-4.2 [facility] Serum glucose measurement (m ass/volume)Ordered By: Rod Maravilla on 12-11-2024 Glucose [Mass/Vol] 156 mg/dL High 70-99 [facility] Serum or plasma alanine zeng otransferase (ALT) measurementOrdered By: Rod Maravilla 12-11-2024 ALT [Catalytic activity/Vol] 17 U/L <47 [facility] Serum or plasma albumin tatum urement (mass/volume)Ordered By: Rod Maravilla on 12-11-2024 Albumin [Mass/Vol] 4.3 g/dL 3.4-4.8 [facility] Serum or plasma albumin/glob ulin mass ratioOrdered By: Rod Maravilla on 12-11-2024 Albumin/Globulin [Mass ratio] 1.5 {ratio} 0.9-2.4 [facility] Serum or plasma alkaline mike sphatase measurementOrdered By: Rod Maravilla on 12-11-2024 ALP [Catalytic activity/Vol] 94 U/L 40-129 [facility] Serum or plasma calcium tatum urement (mass/volume)Ordered By: Rod Maravilla on 12-11-2024 Calcium [Mass/Vol] 9.5 mg/dL 7.6-11.0 [facility] Serum or plasma cholesterol in HDL measurement (mass/volume)Ordered By: Rod Maravilla on 12-11-2024 Cholesterol in HDL [Mass/Vol] 44 mg/dL >40 [facility] Comment on above: National Cholesterol Education Program (NCEP) guidelines:<40 mg/dL: Low HDL-cholesterol (major risk factor for CHD)>= 60 mg/dL: High HDL-cholesterol (negative risk factor for CHD)HDL-cholesterol is affected by a number of factors, e.g. smoking, exercise, hormones, sex and age. Serum or plasma cholesterol measurement (mass/volume)Ordered By: Rod Maravilla on 12-11-2024 Cholesterol [Mass/Vol] 130 mg/dL <201 [facility] Comment on above: Cholesterol level, D esirable <200 mg/dLBorderline high cholesterol 200-239 mg/dLHigh cholesterol >=240 mg/dLRecommendations of the NCEP Adult Treatment Panel for the following risk-cutoff thresholds for the [place] population. Serum or plasma urea nitroge n measurement (mass/volume)Ordered By: Rod Maravilla on 12-11-2024 Urea nitrogen [Mass/Vol] 16 mg/dL 4-19 [facility] Sodium levelOrdered By: Elias Maravilla on 12-11-2024 Sodium [Moles/Vol] 139 mmol/L 133-145 [facility] Total proteinOrdered By: Lizandro Maravilla on 12-11-2024 Protein [Mass/Vol] 7.2 g/dL 5.9-8.4 [facility] Triglycerides measurementOrd ered By: Rod Maravilla on 12-11-2024 Triglyceride [Mass/Vol] 105 mg/dL <199 [facility] Comment on above: The drugs N-Acetylcy steine and Metamizole may falsely depress this assay. Normal range: <150 mg/dLBorderline High: 150-199 mg/dLHigh: 200-499 mg/dLVery High: >500 mg/dL CNOVon 12-05-2024 CNOV Office Visit (WSTR ) ----- ASCENCION WEIR ([id number]) 1950 M Date Time Provider Department 12/05/24 10:15 AM LISA QUINTANILLA [facility] During your visit today, we recorded the following information about you: Temperature Pulse Respiration Blood pressure 97.9 degrees 73/minute 16/minute 128/70 Weight 92.8 kg Lisa Quintanilla MD 12/05/2024 11:[address] [facility] Subjective Ascencion Weir is a 74 year old male. Patient presents with: left hand pain: Left hand swelling x 2 weeks Patient was rolling up a peer conflict 2 weeks ago. As he slid his hand up the flag (not the pole), he felt sharp pain in his ulnar second metatarsal head area like he had been poked with something. He had no cut or bleeding but has since continued to have discomfort in the area. It is uncomfortable to flex the finger sometimes. Swelling has increased and today he notices a white spot on the palm at his second metatarsal head. Review of Systems Objective BP 128/70 Pulse 73 Temp 36.6 ?C (97.9 ?F) (Tympanic) Resp 16 Wt 92.8 kg (204 lb 9.4 oz) SpO2 97% BMI 31.11 kg/m? Physical Exam Constitutional: General: He is not in acute distress. Musculoskeletal: Hands: Comments: Mild edema left hand second finger proximal phalange and distal second metatarsal. No disruption of the skin or fluctuance. Irregular pain with flexion of the MCP joint. Tenderness palmar second metatarsal head. Neurological: Mental Status: He is alert. {ASSESSMENT/PLAN: 1. Swelling of hand joint, left - ICD9: 719.04, ICD10: M25.442 - XR HAND GENERAL 3V PA/LAT/OBL LEFT No acute fracture or dislocation identified. Phleboliths in the volar aspect of the palm. Well-corticated ossific density adjacent to the ulnar aspect of the third middle phalanx. No radiopaque foreign body. No obvious foreign body on exam or imaging. No skin break found at the time of injury. Occult foreign body (like thread splinter) is possible, but inflammation from finger strain/sprain favored based on exam. Shared decision making used for treatment plan: he will continue monitoring the finger, not take antibiotic, and follow up with orthopedics if symptoms are not improving. Lisa Quintanilla MD Differential Diagnoses - hand sprain/strain is more likely for the following reason(s): suggested by HANDP - infection is less likely for the following reason(s): exam not suggestive Additional Tests or Interventions The following medication(s) were considered but not ordered: Keflex Procedures Allergies As of Date: 12/05/2024 Noted Allergy Reaction ENTEX PSE (PSEUDOEPHEDRINE-GUAIFE*1 10/12/2006 5 - Intolerance Comments: Patient states he does not have any allergies Date Reviewed: 12/05/2024 Reviewed by: Jayla Chen LPN - Fully Assessed Reason for Visit: left hand pain [Other] Cmt: Left hand swelling x 2 weeks Primary Visit Diagnosis:Swelling of hand joint, left [M25.442] Order(s):XR HAND GENERAL 3V PA/LAT/OBL LEFT [[id number]] Order #: [id number] FUTURE Prescriptions as of 12/05/2024 - multivitamin tablet Take 1 tablet by mouth once daily. - traMADol (ULTRAM) 50 mg tablet Take 1 tablet by mouth every 6 hours as needed for pain for up to 30 days. - celecoxib (CELEBREX) 200 mg capsule Take 1 capsule by mouth twice daily. Take with food. - tamsulosin (FLOMAX) 0.4 mg Take 1 capsule by mouth daily at bedtime. - metoprolol succinate ER (TOPROL XL) 100 mg Take 0.5 tablets by mouth once daily. - gabapentin (NEURONTIN) 400 mg capsule Take 1 capsule by mouth two times a day for 180 days. - metFORMIN (GLUCOPHAGE) 1,000 mg tablet Take 1 tablet by mouth two times a day with meals. - atorvastatin (LIPITOR) 20 mg tablet Take 1 tablet by mouth once daily. - hydrOXYchloroQUINE (PLAQUENIL) 200 mg tablet Take 1 tablet by mouth every afternoon. - amoxicillin (AMOXIL) 500 mg capsule Take 4 capsules by mouth prior to dental procedure. - blood sugar diagnostic (TRUE METRIX GLUCOSE TEST STRIP) test strip Test blood sugar(s) 3 times daily. Insulin: Yes - Lancets lancets Test blood sugar(s) 4 times daily. Dx: Type 2 DM - Controlled E11.9 Insulin: Yes - CPAP Initiate CPAP @ 7 cm of water with humidification. Mask (per patient preference) optional chin strap (if indicated) , filters, tubing, humidifier and lifetime supplies. - aspirin, enteric coated (ADULT ASPIRIN EC LOW STRENGTH) 81 mg EC tablet Take 1 tablet by mouth every 48 hours. - COMPOUNDED PRESCRIPTION Accu-chek Lois Meter with multiclix lancet device use as directed Problem List As Of Date 12/05/2024 Noted Resolved HYPERLIPIDEMIA NEC/NOS [E78.5] 10/29/2015 SCIATICA [M54.30] Controlled type 2 diabetes mellitus with diabet*10/08/2005 OBESITY NOS [E66.9] 12/27/2005 LUMBAGO [M54.50] 03/29/2006 Benign Neoplasm of Skin of Trunk, except Scrotu*10/03/2006 07/04/2009 (more content not included)... Normal [facility] XR HAND 3V PA/LAT/OBL LTon 0 12-05-2024 XR HAND 3V PA/LAT/OBL LT * * *Final Report* * * DATE OF EXAM: Dec 05 2024 10:47AM WOX [id number] - XR HAND 3V PA/LAT/OBL LT / PROCEDURE REASON: Swelling of hand joint, left * * * * Physician Interpretation * * * * TITLE: XR HAND 3V PA/LAT/OBL LT CLINICAL INDICATION: And swelling TECHNIQUE: 3 view radiographic study of the left hand COMPARISON: None FINDINGS: No acute fracture or dislocation identified. Phleboliths in the volar aspect of the palm. Well-corticated ossific density adjacent to the ulnar aspect of the third middle phalanx. No radiopaque foreign body. IMPRESSION: No radiographic evidence of acute osseous injury. No radiopaque foreign body Hotel Director: [facility] Transcribe Date/Time: Dec 05 2024 10:55A Dictated by : JAVIER ROBISON MD This examination was interpreted and the report reviewed and electronically signed by: JAVIER ROBISON MD on Dec 05 2024 10:57AM EST [id number] Normal [facility] XR Hand - left PA and Latera l and Obliqueon 12-05-2024 IMPRESSION: No radiographic evidence of acute osseous injury. No radiopaque foreign body Hotel Director: [facility] Transcribe Date/Time: Dec 05 2024 10:55A Dictated by : JAVIER ROBISON MD This examination was interpreted and the report reviewed and electronically signed by: JAVIER ROBISON MD on Dec 05 2024 10:57AM EST DIVISION OF RADIOLOGY * * *Final Report* * * DATE OF EXAM: Dec 05 2024 10:47AM WOX [id number] - XR HAND 3V PA/LAT/OBL LT / PROCEDURE REASON: Swelling of hand joint, left * * * * Physician Interpretation * * * * TITLE: XR HAND 3V PA/LAT/OBL LT CLINICAL INDICATION: And swelling TECHNIQUE: 3 view radiographic study of the left hand COMPARISON: None FINDINGS: No acute fracture or dislocation identified. Phleboliths in the volar aspect of the palm. Well-corticated ossific density adjacent to the ulnar aspect of the third middle phalanx. No radiopaque foreign body. DIVISION OF RADIOLOGY Provider, [facility] - 12/05/2024 * * *Final Report* * * DATE OF EXAM: Dec 05 2024 10:47AM WOX 5345 - XR HAND 3V PA/LAT/OBL LT / PROCEDURE REASON: Swelling of hand joint, left * * * * Physician Interpretation * * * * TITLE: XR HAND 3V PA/LAT/OBL LT CLINICAL INDICATION: And swelling TECHNIQUE: 3 view radiographic study of the left hand COMPARISON: None FINDINGS: No acute fracture or dislocation identified. Phleboliths in the volar aspect of the palm. Well-corticated ossific density adjacent to the ulnar aspect of the third middle phalanx. No radiopaque foreign body. IMPRESSION IMPRESSION: No radiographic evidence of acute osseous injury. No radiopaque foreign body Hotel Director: [facility] Transcribe Date/Time: Dec 05 2024 10:55A Dictated by : JAVIER ROBISON MD This examination was interpreted and the report reviewed and electronically signed by: JAVIER ROBISON MD on Dec 05 2024 10:57AM EST [facility] Radiology Study observation (narrative) [facility] XR Hand - left PA and Latera l and ObliqueOrdered By: [facility] Provider on 12-05-2024 [facility] CNPNon 11-30-2024 CNPN Telephone (FPWADS) ----- CARMELLAASCENCION BRADFORD ([id number]) 1950 M Date Time Provider Department 11/30/24 AARON SOLORZANO During your visit today, we recorded the following information about you: Reyna Campbell RN 11/30/2024 12:58 PM Signed Received cardiology office visit notes from [facility], DOS 11/28/24 with Rod Maravilla MD. Placed cardiology office notes in Aaron Solorzano MD inbox to review. In the cardiology notes for [place] the following medication discrepancies were noted: They have the patient as taking the gabapentin 400 mg three times day, and [facility] EMR states he is taking it two times daily. They have the patient as taking losartan 25 mg daily, and [facility] EMR does not have that medication on his list. They have the patient as taking Levemir Flextouch units-100 10 unit subcutaneous QHS PRN and [facility] EMR does not have that medication on his list. Called patient at [phone] to clarify 1-3 above and add medications to EMR if needed. Left voicemail for patient to return call to clarify med list. CARL Suggs Jessica, RN 11/30/2024 4:30 PM Signed Patient returned call and LVM on nurse line. Genesis Lucas RN 12/03/2024 12:10 PM Signed Pt LVM on nurse line this morning Reyna Campbell RN 12/03/2024 1:21 PM Signed Called patient. Gabapentin is three times per day, per patient. Not taking losartan Not taking Levemir Med list updated. Allergies As of Date: 11/30/2024 Noted Allergy Reaction ENTEX PSE (PSEUDOEPHEDRINE-GUAIFE*1 10/12/2006 5 - Intolerance Comments: Patient states he does not have any allergies Date Reviewed: 11/08/2024 Reviewed by: Vernell Hernandez LPN - Fully Assessed Reason for Visit: Received Outside Medical Records [1991] Cmt: Cardiology Rod Maravilla MD 11/28/24 [facility] Prescriptions as of 12/03/2024 - multivitamin tablet Take 1 tablet by mouth once daily. - traMADol (ULTRAM) 50 mg tablet Take 1 tablet by mouth every 6 hours as needed for pain for up to 30 days. - celecoxib (CELEBREX) 200 mg capsule Take 1 capsule by mouth twice daily. Take with food. - tamsulosin (FLOMAX) 0.4 mg Take 1 capsule by mouth daily at bedtime. - metoprolol succinate ER (TOPROL XL) 100 mg Take 0.5 tablets by mouth once daily. - gabapentin (NEURONTIN) 400 mg capsule Take 1 capsule by mouth two times a day for 180 days. - metFORMIN (GLUCOPHAGE) 1,000 mg tablet Take 1 tablet by mouth two times a day with meals. - atorvastatin (LIPITOR) 20 mg tablet Take 1 tablet by mouth once daily. - hydrOXYchloroQUINE (PLAQUENIL) 200 mg tablet Take 1 tablet by mouth every afternoon. - amoxicillin (AMOXIL) 500 mg capsule Take 4 capsules by mouth prior to dental procedure. - blood sugar diagnostic (TRUE METRIX GLUCOSE TEST STRIP) test strip Test blood sugar(s) 3 times daily. Insulin: Yes - Lancets lancets Test blood sugar(s) 4 times daily. Dx: Type 2 DM - Controlled E11.9 Insulin: Yes - CPAP Initiate CPAP @ 7 cm of water with humidification. Mask (per patient preference) optional chin strap (if indicated) , filters, tubing, humidifier and lifetime supplies. - aspirin, enteric coated (ADULT ASPIRIN EC LOW STRENGTH) 81 mg EC tablet Take 1 tablet by mouth every 48 hours. - COMPOUNDED PRESCRIPTION Accu-chek Lois Meter with multiclix lancet device use as directed Problem List As Of Date 11/30/2024 Noted Resolved HYPERLIPIDEMIA NEC/NOS [E78.5] 10/29/2015 SCIATICA [M54.30] Controlled type 2 diabetes mellitus with diabet*10/08/2005 OBESITY NOS [E66.9] 12/27/2005 LUMBAGO [M54.50] 03/29/2006 Benign Neoplasm of Skin of Trunk, except Scrotu*10/03/2006 07/04/2009 BENIGN HYPERTENSION [I10] 12/19/2007 ABSCESS ANAL [K61.2] 08/13/2008 07/04/2009 IDIOPATHIC URTICARIA [L50.1] 02/24/2009 Displacement of Lumbar Intervertebral Disc with*08/11/2009 Sleep Apnea [G47.30] 11/07/2009 Buttock pain [M79.18] 02/18/2014 Low back pain [M54.50] 02/18/2014 Lumbosacral neuritis [M54.17] 02/18/2014 Lumbar spondylosis [M47.816] 02/18/2014 Lumbar degenerative disc disease [M51.369] 02/18/2014 Mixed hyperlipidemia [E78.2] 10/29/2015 Ischial bursitis of left side [M70.72] 11/08/2015 Nonrheumatic aortic valve stenosis [I35.0] 05/31/2019 Coronary artery disease involving [place] malik*09/18/2020 Thrombocytopenia (HCC) [D69.6] 01/07/2023 Longstanding persistent atrial fibrillation (HC*01/07/2023 Peripheral arterial disease (HCC) [I73.9] 06/16/2023 Encounter Status:Closed by REYNA CAMPBELL on 12/03/24 Normal [facility] Cardiology Visit Reporton Cardiology Visit Report [facility] [address] [place] [address]. [address] [place] [address] OFFICE VISIT Date of Service: 11/28/24 MR#: [id number] Acct: [id number] Name: ASCENCION WEIR Rep #: [id number] 18 : 1950 Provider: Dr. Rod Maravilla MD Age/Sex: 74/M Location: [facility] Status: Signed HPI HPI History of Present Illness Details: This gentleman with history of aortic valve disease status post aortic valve replacement with a bioprosthetic valve and coronary artery disease status post single-vessel CABG to the RCA, hypertension, dyslipidemia and diabetes mellitus is here for routine follow-up visit. Denies any angina. No shortness of breath. No orthopnea or PND. No ankle edema. According to the patient, he has been having some memory problems such as remembering names. He has been following with his primary care physician for it. Intake Vital Signs 05/31/24 08:21 11/28/24 13:34 Height 5 ft 8 in 5 ft 8 in Weight: 200 lb 202 lb BMI 30.4 30.7 BP 139/67 H 128/74 H Blood Pressure Location Lt brachial Lt brachial Position Sitting Sitting Respiration 18 16 Pulse 70 73 Pulse Source NIBP NIBP Intake Visit Reasons: 6 M FU Client Renewal Specialist Required: No Accompanied by: Self Is patient in pain?: No Allergies No Known Allergies Allergy (Verified 11/28/24 14:26) Medications ???Medication ???Instructions ???Recorded ???Confirmed ???Type aspirin 81 mg chewable tablet 81 mg PO DAILY heart health 11/28/24 History metformin 500 mg tablet 1,000 mg PO BIDCM diabetes 7 11/28/24 History tamsulosin 0.4 mg capsule 0.4 mg PO QHS BPH 11/21/16 5 History gabapentin 400 mg capsule 400 mg PO TID 02/28/20 11/28/24 Hi story hydroxychloroquine 200 mg tablet 200 mg PO DAILY 02/28/20 11/28/24 History tramadol 50 mg tablet 50 mg PO Q6H PRN PRN Pain Or Fever 05/29/20 11/28/24 History multivitamin 1 tab PO DAILY 06/09/20 11/28/24 H istory celecoxib 200 mg capsule (Celebrex) 200 mg PO BID 06/27/20 11/28/24 History atorvastatin 20 mg tablet 20 mg PO QHS 12/22/20 11/28/24 His tory insulin detemir U-100 100 unit/mL 10 unit subcut QHS PRN 05/31/24 0 11/28/24 History (3 mL) subcutaneous pen (Levemir FlexTouch U-100 Insulin) losartan 25 mg tablet 25 mg PO QDAY #90 tabs 05/31/24 Rx metoprolol succinate 50 mg 50 mg PO QDAY 05/31/24 11/28/24 Hi story tablet,extended release 24 hr Ejection fraction %: 60 Have you fallen in the past year?: Yes (fell at home on carpet; no major injuries) [facility] Medical History Abnormal echocardiogram Arthritis Arthritis Asthmatic bronchitis with exacerbation Atherosclerotic heart disease of [place] coronary artery without angina pectoris Back problem Benign essential hypertension Benign prostatic hypertrophy Cataracts, bilateral Chest pain Chest wall pain Dyspnea on exertion Fever Former smoker H/O methicillin resistant Staphylococcus aureus infection Hearing problem History of tenosynovitis HLD (hyperlipidemia) Hyponatremia Intractable back pain Lightheaded Multi-vessel coronary artery stenosis Near syncope Nonrheumatic aortic (valve) stenosis Obesity Obstructive sleep apnea syndrome Pain Pericardial effusion Physical debility Postoperative atrial fibrillation Right carotid bruit Swelling of joint of left hand Type II diabetes mellitus Surgical History History of aortic valve replacement with bioprosthetic valve ( 05/08/20) History of coronary artery bypass surgery ( 05/08/20) History of knee replacement History of left heart catheterization (03/18/20) History of total knee arthroplasty Family History Father Myocardial infarction, Onset Age: 73 Mother Myocardial infarction, Onset Age: 68 Other Arthritis Asthma Diabetes High cholesterol Hypertension Social History Smoking Status: Former smoker alcohol intake: never substance use type: does not use caffeine: Yes Type: coffee Number of servings: 3 additional social history: Does Not Take Ibuprofen ROS Const Const: Negative for fatigue, weakness, headache(s) or weight gain ENT ENT: Positive for balance problems; Negative for headache(s), dizziness or Nosebleed/epistaxis Cardio Chest Pain: No Palpitations: No Edema: None Muscle aches with walking: None Resp Respiratory: Negative for SOB with activity, SOB at rest or SOB orthopnea SOB lying down GI GI: Negative nausea, vomiting or heartburn Musc Musc: Positive for balance problems; Negative for muscle aches/ myalgia, muscle weakness or joint pain Neuro Ernestine (more content not included)... Normal [facility] 11-19-2024 [facility] Telephone (FPWADS) ----- ASCENCION WEIR ([id number]) 1950 M Date Time Provider Department 11/19/24 AARON SOLORZANO During your visit today, we recorded the following information about you: Vernell Hernandez LPN 11/19/2024 3:41 PM Signed Received evaluation from [facility]. Placed in provider's inbox for review. Route to [place] fax/scanning Allergies As of Date: 11/19/2024 Noted Allergy Reaction ENTEX PSE (PSEUDOEPHEDRINE-GUAIFE*1 10/12/2006 5 - Intolerance Comments: Patient states he does not have any allergies Date Reviewed: 11/08/2024 Reviewed by: Vernell Hernandez LPN - Fully Assessed Reason for Visit: Received Outside Medical Records [[id number]] Cmt: [facility] physical therapy Prescriptions as of 11/19/2024 - traMADol (ULTRAM) 50 mg tablet Take 1 tablet by mouth every 6 hours as needed for pain for up to 90 days. - celecoxib (CELEBREX) 200 mg capsule Take 1 capsule by mouth twice daily. Take with food. - tamsulosin (FLOMAX) 0.4 mg Take 1 capsule by mouth daily at bedtime. - metoprolol succinate ER (TOPROL XL) 100 mg Take 0.5 tablets by mouth once daily. - gabapentin (NEURONTIN) 400 mg capsule Take 1 capsule by mouth two times a day for 180 days. - metFORMIN (GLUCOPHAGE) 1,000 mg tablet Take 1 tablet by mouth two times a day with meals. - atorvastatin (LIPITOR) 20 mg tablet Take 1 tablet by mouth once daily. - hydrOXYchloroQUINE (PLAQUENIL) 200 mg tablet Take 1 tablet by mouth every afternoon. - amoxicillin (AMOXIL) 500 mg capsule Take 4 capsules by mouth prior to dental procedure. - blood sugar diagnostic (TRUE METRIX GLUCOSE TEST STRIP) test strip Test blood sugar(s) 3 times daily. Insulin: Yes - Lancets lancets Test blood sugar(s) 4 times daily. Dx: Type 2 DM - Controlled E11.9 Insulin: Yes - CPAP Initiate CPAP @ 7 cm of water with humidification. Mask (per patient preference) optional chin strap (if indicated) , filters, tubing, humidifier and lifetime supplies. - aspirin, enteric coated (ADULT ASPIRIN EC LOW STRENGTH) 81 mg EC tablet Take 1 tablet by mouth every 48 hours. 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] 02/24/2009 Displacement of Lumbar Intervertebral Disc with*08/11/2009 Sleep Apnea [G47.30] 11/07/2009 Buttock pain [M79.18] 02/18/2014 Low back pain [M54.50] 02/18/2014 Lumbosacral neuritis [M54.17] 02/18/2014 Lumbar spondylosis [M47.816] 02/18/2014 Lumbar degenerative disc disease [M51.369] 02/18/2014 Mixed hyperlipidemia [E78.2] 10/29/2015 Ischial bursitis of left side [M70.72] 11/08/2015 Nonrheumatic aortic valve stenosis [I35.0] 05/31/2019 Coronary artery disease involving la jolla malik*09/18/2020 Thrombocytopenia (HCC) [D69.6] 01/07/2023 Longstanding persistent atrial fibrillation (HC*01/07/2023 Peripheral arterial disease (HCC) [I73.9] 06/16/2023 Encounter Status:Closed by VERNELL HERNANDEZ on 11/19/24 Normal [facility] Inital Evaluation (1) - PTon 11-16-2024 Inital Evaluation (1) - PT [facility] [address] [place] [address] / REHABILITATION SERVICES INITIAL EVALUATION MR#: [id number] Acct: [id number] Name: ASCENCION WEIR Rep #: [id number] : 1950 74 From: Jean Claude Berman DPT, OCS, CSCS Referring Dr.: Dr. Mike Solorzano MD Status: R EG RCR Insurance: O MEDICARE SELF PAY INSURANCE Patient's Visit Information Visit Information Visit Information: ASCENCION WEIR is a 74 year old M referred to Physical Therapy by Dr. Mike Solorzano MD with a diagnosis of Balance problems. Date of Evaluation: 11/16/24 Physical Therapist: Jean Claude Berman DPT, OCS, CSCS Visit Plan Frequency: 2x /Week Duration: 4-6 Weeks Plan: 2x/week for 4-6 weeks... Work in clinic on 1. posterior to FW weight shift to HEP 2. vestibular balance challenges particularly static and dynamic with ec(gait belt) 3. gastroc stretching 4. ankle TB strength to HEP particularly DF IE HEP seated toe raises 3x10 adn gastroc wall stretch 30x5 with pics. also balance safety reeviewed with HO particularly ec and benefits of walkr to take pressure off back with ambulation. Subjective Subjective: I am stumbling around and losing my balance . Going on for 6-8 months now. Eyes open at sink is OK but hard with eye closed. Stumbles around house. Fell 2x, no spinning, caught foot one time and the other time turned too quick. Has neuropathy but not sure what causing it. History of back problems and has stimulator, has had DM for ever. Exercises in gym 2x/week riding bike, machines, but nothing else and takes about an hour. Retired, [employer]. Sleeping is good. No activ ehobbies, takes care of . Helps clean house adn mows yard in summer. Riding mow. Lives with . and granddaughter. Has steps to basement 14 with railing and uses it but can do them and has to be careful. Basic ADLS: Dress self , shower, bathroom all I. Sees [facility] for pain manageement injections in [place]. Objective Objective: 32# L DF and 24# R dF. Walks with foot slap and neuropathic gait pattern. Feet pointed out for balance and wide TITO, slow but steady on firm flat surface. Unable to be safe with ec stance or walking. Heel raise easily, Toe raises are challnging R >L Transfers chair and bed I. Steps reciprocal up and down requiring 2 rails and keeps weight posteriorly. Ankls weak in DF 3+ B, PF 4 B, inv and ev 4- B. knee strength 4- B flex and ext. Hip strength 3+ abd and ext adn 4+ flexion, L causing some LBP with DF and knee flexion. reflexes 1/3 patella and achilles B sensation diminished to gross light touch in B feeet. coordination to reciprocal toe and heel tap is poor. Immdiate failure of balance to reaching with ec situations. Balance/Special Test Scores Functional Gait Assessment Score: 20 % Disability: 33.3400 CATSIB Score (Max score 120 seconds): 60 Lower Extremity Functional Score: 30 Goals Goal 1:: I appropriate HEP for DF and ankle strength, weight shifting and gastroc stretching. Goal Time Frame: 4-6 Weeks Goal 2:: 30# R ankle DF strength Goal Time Frame: 4-6 Weeks Goal 3:: pt feel 50% improved in overall balance and no falls Goal Time Frame: 4-6 Weeks Goal 4:: stand c wihtout immediate LOB 15 seconds. Goal Time Frame: 4-6 Weeks Rehabilitation Potential Physical Therapy Diagnosis: imbalance from neuroapthy, weakness causing risk at home with balance Rehabilitation Potential: Fair Anticipated Interventions Patient/Client Instruction: Educate patient on: Condition and Risk Factors For the Purpose of:: To improve gait and locomotor functions and To improve safety Therapeutic Exercise to Include: Strength training, Balance training, Flexibilty training, Passive ROM and Active ROM For the Purpose of:: To increase tolerance to activity/condition/positi on, To improve gait and locomotor functions and To improve safety Text: Thank you for the opportunity to evaluate your patient. For Medicare and Medicare HMO plans, please review the plan of care and approve it. It will need to be FAXED BACK to us at [phone] for Medicare purposes. For Medicare only, by signing this I certify the plan of care. Please let me know if there are questions or concerns regarding this plan of care. Physician Signature: Date: _ 11/16/24 1552 CC: Dr. Mike Solorzano MD EBG Signed Normal [facility] CNOVon 11-08-2024 CNOV Office Visit (FPWADS ) ----- CARMELLAASCENCION ([id number]) 1950 M Date Time Provider Department 11/08/24 11:00 AM AARON SOLORZANO FPWADS During your visit today, we recorded the following information about you: Pulse Blood pressure Weight Height 75/minute 138/75 90 kg 1.727 m Aaron Solorzano MD 11/08/2024 2:00 PM Signed CHIEF COMPLAINT Patient presents with: Follow Up HISTORY OF PRESENT ILLNESS Ascencion Weir is a 74 year old male who presents here today for follow up on sleep apnea . I last saw this patient on 12/20/2023. Sleep Apnea - Was using cpap with benefit - Machine broke nearly 2 weeks ago - Needs order for new machine and supplies Balance - Reports stumbling - Denies any falls Health Maintenance Due for DTaP, Tdap, Td Vaccine (2- Td or Tdap) Due for Dilated Retinal Exam Due for Advance Directive Discussion Due for Shingrix Vaccine (1 of 2) Due for RSV Vaccine (1-1 dose 75+ series) Labs reviewed. Past medical history, appointments, medications, allergies reviewed. REVIEW OF SYSTEMS General: Feels well, no weight changes, fevers or chills. Neuro: +balance issues - stumbling HEENT: No sinus congestion, earache, sore throat. Cardiac: No chest pain, palpitations Resp: No cough, wheeze, shortness of breath GI: No reflux symptoms, food intolerance, bowel changes. : No urinary frequency, dysuria. MS: No pain or joint complaints. PAST MEDICAL HISTORY PAST MEDICAL HISTORY Diagnosis Date Aortic valvar stenosis Arthritis BPH (benign prostatic hyperplasia) HTN (hypertension) LIAN (obstructive sleep apnea) Other and unspecified disc disorder of unspecified region Intervertebral disc disorders Other and unspecified hyperlipidemia Sciatica Type II or unspecified type diabetes mellitus without mention of complication, not stated as uncontrolled PHYSICAL EXAMINATION BP 138/75 Pulse 75 Ht 172.7 cm (5' 7.99) Wt 90 kg (198 lb 6.6 oz) SpO2 98% BMI 30.18 kg/m? General: Alert, well developed, well nourished, no distress, pleasant and cooperative. Obese. Heart: Regular rate and rhythm. Normal S1 and S2. No murmurs, rubs, or gallops. Lungs: Clear to auscultation bilaterally. No respiratory distress. No wheezes, rales, or rhonchi. Abdomen: Soft, non-tender, no distention. Extremities: gait halting. Feet/ankles without edema, posterior tibial pulses full and symmetrical. Data Reviewed Latest Ref [facility] 08/13/2024 Protein, Total 6.3 - 8.0 g/dL 7.3 Albumin 3.9 - 4.9 g/dL 4.4 Calcium 8.5 - 10.2 mg/dL 9.3 Bilirubin, Total 0.2 - 1.3 mg/dL 0.2 Alkaline Phosphatase 38 - 113 U/L 93 AST 14 - 40 U/L 20 ALT 10 - 54 U/L 14 Glucose 74 - 99 mg/dL 95 BUN 9 - 24 mg/dL 17 Creatinine 0.73 - 1.22 mg/dL 0.93 Sodium 136 - 144 mmol/L 133 (L) Potassium 3.7 - 5.1 mmol/L 4.8 Chloride 98 - 107 mmol/L 97 (L) CO2 22 - 30 mmol/L 24 Anion Gap 8 - 15 mmol/L 12 eGFR >=60 mL/min/1.73m? 86 WBC 3.70 - 11.00 k/uL 6.03 RBC 4.20 - 6.00 m/uL 4.24 Hemoglobin 13.0 - 17.0 g/dL 12.7 (L) Hematocrit 39.0 - 51.0 % 37.5 (L) MCV 80.0 - 100.0 fL 88.4 MCH 26.0 - 34.0 pg 30.0 MCHC 30.5 - 36.0 g/dL 33.9 RDW-CV 11.5 - 15.0 % 12.4 Platelet Count 150 - 400 k/uL 197 MPV 9.0 - 12.7 fL 9.9 Absolute nRBC <0.01 k/uL <0.01 Cholesterol, Total <200 mg/dL 119 Triglyceride <150 mg/dL 81 HDL Cholesterol >39 mg/dL 38 (L) Non HDL Cholesterol <130 mg/dL 81 Fasting Time hrs unknown VLDL Cholesterol <30 mg/dL 16 TC:HDL Ratio <5.10 3.13 LDL Cholesterol <100 mg/dL 65 LDL:HDL Ratio <2.54 1.71 Creatinine, Ur Random (UCRR) 20.0 - 300.0 mg/dL 37.7 Albumin, Urine Random mg/L 18.5 Albumin/Creat Ratio <30 mg/g 49 (H) Hemoglobin A1C (POCT) 4.3 - 5.6 % 5.9 ! Legend: (L) Low (H) High ! Abnormal Assessment/Plan (G47.33) LIAN (obstructive sleep apnea) (primary encounter diagnosis) Comment: cpap beneficial. Machine broke. Order placed for new machine and supplies Plan: CPAP DEVICE (E11.40, Z79.4) Controlled type 2 diabetes mellitus with diabetic neuropathy, with long-term current use of insulin (HCC) Comment: Good control. A1c 5.9% Plan: Continue current regimen (R26.89) Balance problem Comment: Ongoing, he is willing to go to PT, order placed. Plan: CONSULT TO PHYSICAL THERAPY Requested Prescriptions No prescriptions requested or ordered in this encounter RTO: 6 months or sooner as needed Scribe Attestation: By signing my name below, I, Sharon Kee, attest that this documentation has been prepared under the direction and in the presence of Mike Solorzano M.D. Electronically Signed: Ana Luisa Colmenares. November 08, 2024 10:48 AM Provider Attestation: Zee, Aaron Solorzano MD, personally performed the services described in this documentation. All medical record entries made by the scribe were at my direction and in my telephonic presence. I have reviewed the (more content not included)... Normal [facility] CNPNon 09-14-2024 CNPN Telephone (FPWADS) ----- ASCENCION WEIR ([id number]) 1950 M Date Time Provider Department 09/14/24 AARON SOLORZANO During your visit today, we recorded the following information about you: Amanda Baldwin 09/14/2024 11:48 AM Deepika Torres is calling Aaron Solorzano MD today with concern regarding Medication Problem They are saying that this needs to be the generic to be covered just . atorvastatin (LIPITOR) 20 mg tablet 20 mg, DAILY 2 ordered traMADol (ULTRAM) 50 mg tablet 50 mg, EVERY 6 HOURS NEEDED 2 ordered Patient has been identified by name and birthdate. Duration of symptoms: N/A Person calling: self Call patient at: home [phone] (home) Was an appointment scheduled: No Closing statement: Results or non-symptom based questions: Thank you for calling [facility], your call will be returned within the next business day. Annalise Anderson LPN 09/14/2024 2:40 PM Signed Call placed to patient and left voicemail. Call placed to pharmacy. Atorvastatin was filled in June. Next refill will be in September. Tramadol has a refill. Patient will need to call pharmacy to fill. Allergies As of Date: 09/14/2024 Noted Allergy Reaction ENTEX PSE (PSEUDOEPHEDRINE-GUAIFE*1 10/12/2006 5 - Intolerance Comments: Patient states he does not have any allergies Date Reviewed: 08/13/2024 Reviewed by: Annalise Woodard LPN - Fully Assessed Reason for Visit: Medication Problem [65] Prescriptions as of 09/17/2024 - metoprolol succinate ER (TOPROL XL) 100 mg Take 0.5 tablets by mouth once daily. - gabapentin (NEURONTIN) 400 mg capsule Take 1 capsule by mouth two times a day for 180 days. - traMADol (ULTRAM) 50 mg tablet Take 1 tablet by mouth every 6 hours as needed for pain for up to 90 days. - metFORMIN (GLUCOPHAGE) 1,000 mg tablet Take 1 tablet by mouth two times a day with meals. - atorvastatin (LIPITOR) 20 mg tablet Take 1 tablet by mouth once daily. - hydrOXYchloroQUINE (PLAQUENIL) 200 mg tablet Take 1 tablet by mouth every afternoon. - celecoxib (CELEBREX) 200 mg capsule Take 1 capsule by mouth twice daily. Take with food. - amoxicillin (AMOXIL) 500 mg capsule Take 4 capsules by mouth prior to dental procedure. - blood sugar diagnostic (TRUE METRIX GLUCOSE TEST STRIP) test strip Test blood sugar(s) 3 times daily. Insulin: Yes - tamsulosin (FLOMAX) 0.4 mg Take 1 capsule by mouth daily at bedtime. - Lancets lancets Test blood sugar(s) 4 times daily. Dx: Type 2 DM - Controlled E11.9 Insulin: Yes - CPAP Initiate CPAP @ 7 cm of water with humidification. Mask (per patient preference) optional chin strap (if indicated) , filters, tubing, humidifier and lifetime supplies. - aspirin, enteric coated (ADULT ASPIRIN EC LOW STRENGTH) 81 mg EC tablet Take 1 tablet by mouth every 48 hours. - COMPOUNDED PRESCRIPTION Accu-chek Lois Meter with multiclix lancet device use as directed Problem List As Of Date 09/14/2024 Noted Resolved HYPERLIPIDEMIA NEC/NOS [E78.5] 10/29/2015 SCIATICA [M54.30] Controlled type 2 diabetes mellitus with diabet*10/08/2005 OBESITY NOS [E66.9] 12/27/2005 LUMBAGO [M54.50] 03/29/2006 Benign Neoplasm of Skin of Trunk, except Scrotu*10/03/2006 07/04/2009 BENIGN HYPERTENSION [I10] 12/19/2007 ABSCESS ANAL [K61.2] 08/13/2008 07/04/2009 IDIOPATHIC URTICARIA [L50.1] 02/24/2009 Displacement of Lumbar Intervertebral Disc with*08/11/2009 Sleep Apnea [G47.30] 11/07/2009 Buttock pain [M79.18] 02/18/2014 Low back pain [M54.50] 02/18/2014 Lumbosacral neuritis [M54.17] 02/18/2014 Lumbar spondylosis [M47.816] 02/18/2014 Lumbar degenerative disc disease [M51.369] 02/18/2014 Mixed hyperlipidemia [E78.2] 10/29/2015 Ischial bursitis of left side [M70.72] 11/08/2015 Nonrheumatic aortic valve stenosis [I35.0] 05/31/2019 Coronary artery disease involving la jolla malik*09/18/2020 Thrombocytopenia (HCC) [D69.6] 01/07/2023 Longstanding persistent atrial fibrillation (HC*01/07/2023 Peripheral arterial disease (HCC) [I73.9] 06/16/2023 Encounter Status:Closed by VERNELL HERNANDEZ on 09/17/24 [facility] ASCENCION WEIR ([id number]) 1950 M Date Time Provider Department 08/15/24 DAXA WING SAE During your visit today, we recorded the following information about you: Kelley Reynolds, CARL 08/15/2024 3:15 PM Signed Patient called and LVM on nurse line, states returning call. No encounters currently open in chart. EULOGIO 08/13 with lab work Called and spoke with patient, reports expected the call to be with regard to lab results Stated would send over a message to provider. Please advise Daxa Wing APRN.NATHANAEL 08/15/2024 4:33 PM Signed Patient is returning call to get lab results, please give him message: Let patient know that his labs are ok overall. Blood counts are slightly decreased again. Cholesterol is well controlled. Kidney and liver function is ok. Sodium remains slightly low as before Daxa Wing APRN.Annalise Giang LPN 08/17/2024 11:25 AM Signed Patient not home. Will try back later Deneen Albrecht MA 09/03/2024 11:40 AM Signed Called number on file. No answer. Let it ring several times- no vm available. 3rd attempt to reach patient. 1st time was on 08/14/24 through results notes, 2nd was on 08/17/24, and now today. Closing encounter. Latta Vidhya Cano 09/03/2024 3:12 PM Signed Patient returned phone call. He saw the message on [employer] from Daxa and he has no further questions. Allergies As of Date: 08/15/2024 Noted Allergy Reaction ENTEX PSE (PSEUDOEPHEDRINE-GUAIFE*1 10/12/2006 5 - Intolerance Comments: Patient states he does not have any allergies Date Reviewed: 08/13/2024 Reviewed by: Annalise Woodard LPN - Fully Assessed Reason for Visit: Patient Question [[id number]] Prescriptions as of 09/03/2024 - gabapentin (NEURONTIN) 400 mg capsule Take 1 capsule by mouth two times a day for 180 days. - traMADol (ULTRAM) 50 mg tablet Take 1 tablet by mouth every 6 hours as needed for pain for up to 90 days. - metFORMIN (GLUCOPHAGE) 1,000 mg tablet Take 1 tablet by mouth two times a day with meals. - atorvastatin (LIPITOR) 20 mg tablet Take 1 tablet by mouth once daily. - metoprolol succinate ER (TOPROL XL) 100 mg Take 0.5 tablets by mouth once daily. - hydrOXYchloroQUINE (PLAQUENIL) 200 mg tablet Take 1 tablet by mouth every afternoon. - celecoxib (CELEBREX) 200 mg capsule Take 1 capsule by mouth twice daily. Take with food. - amoxicillin (AMOXIL) 500 mg capsule Take 4 capsules by mouth prior to dental procedure. - blood sugar diagnostic (TRUE METRIX GLUCOSE TEST STRIP) test strip Test blood sugar(s) 3 times daily. Insulin: Yes - tamsulosin (FLOMAX) 0.4 mg Take 1 capsule by mouth daily at bedtime. - Lancets lancets Test blood sugar(s) 4 times daily. Dx: Type 2 DM - Controlled E11.9 Insulin: Yes - CPAP Initiate CPAP @ 7 cm of water with humidification. Mask (per patient preference) optional chin strap (if indicated) , filters, tubing, humidifier and lifetime supplies. - aspirin, enteric coated (ADULT ASPIRIN EC LOW STRENGTH) 81 mg EC tablet Take 1 tablet by mouth every 48 hours. 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.1] 02/24/2009 Displacement of Lumbar Intervertebral Disc with*08/11/2009 Sleep Apnea [G47.30] 11/07/2009 Buttock pain [M79.18] 02/18/2014 Low back pain [M54.50] 02/18/2014 Lumbosacral neuritis [M54.17] 02/18/2014 Lumbar spondylosis [M47.816] 02/18/2014 Lumbar degenerative disc disease [M51.369] 02/18/2014 Mixed hyperlipidemia [E78.2] 10/29/2015 Ischial bursitis of left side [M70.72] 11/08/2015 Nonrheumatic aortic valve stenosis [I35.0] 05/31/2019 Coronary artery disease involving la jolla malik*09/18/2020 Thrombocytopenia (HCC) [D69.6] 01/07/2023 Longstanding persistent atrial fibrillation (HC*01/07/2023 Peripheral arterial disease (HCC) [I73.9] 06/16/2023 Encounter Status:Closed by KELLEY REYNOLDS on 08/15/24 Normal [facility] ALBUMIN/CREATININE RATIO, UR INEon 08-13-2024 Albumin DL <= 20 mg/L (U) [Mass/Vol] 18.5 mg/L Normal [facility] Comment on above: Order Comment: Speci men Type: URINE SPECIMENOrdering Facility: [facility] Address: [address] [place] [address] Performed By: #### U ACR ####[facility] LABCLIA [id number] [place] [address] [place] Albumin/Creatinine (U) [Mass ratio] 49 mg/g High <30 [facility] Comment on above: Order Comment: Speci men Type: URINE SPECIMENOrdering Facility: [facility] Address: [address] [place] [address] Result Comment: Adul t Male and Female Nephrotic Criteria: <30 mg/g is considered normal to mildly increased 30-300 mg/g is considered moderately increased >300 mg/g is considered severely increased KDIGO. (2013). KDIGO 2012 Clinical Practice Guideline for the Evaluation and Management of Chronic Kidney Disease. Official Journal of the International Society of Nephrology, 3(1), 1-150. Performed By: #### U ACR ####[facility] LABCLIA [id number] [place] [address] [place] Creatinine (U) [Mass/Vol] 37.7 mg/dL Normal 20.0-300.0 [facility] Comment on above: Order Comment: Speci men Type: URINE SPECIMENOrdering Facility: [facility] Address: [address] [place] [address] Performed By: #### U ACR ####[facility] LABCLIA [id number] [place] [address] [place] CBC panel Auto (Bld)on 08-13 Erythrocyte distribution width (RBC) [Ratio] 12.4 % Normal 11.5-15.0 [facility] Comment on above: Order Comment: Speci men Type: BLOOD SPECIMENOrdering Facility: [facility] Address: [address] [place] [address] Performed By: #### 5 8410-2 ####[facility] LABIA [id number] [place] [address] [place] Hematocrit (Bld) [Volume fraction] 37.5 % Low 39.0-51.0 [facility] Comment on above: Order Comment: Speci men Type: BLOOD SPECIMENOrdering Facility: [facility] Address: [address] [place] [address] Performed By: #### 5 8410-2 ####[facility] LABIA [id number] [place] [address] [place] Hemoglobin (Bld) [Mass/Vol] 12.7 g/dL Low 13.0-17.0 [facility] Comment on above: Order Comment: Speci men Type: BLOOD SPECIMENOrdering Facility: [facility] Address: [address] [place] [address] Performed By: #### 5 8410-2 ####[facility] LABIA [id number] [place] [address] [place] MCH (RBC) [Entitic mass] 30.0 pg Normal 26.0-34.0 [facility] Comment on above: Order Comment: Speci men Type: BLOOD SPECIMENOrdering Facility: [facility] Address: [address] [place] [address] Performed By: #### 5 8410-2 ####[facility] LABIA [id number] [place] [address] [place] MCHC (RBC) [Mass/Vol] 33.9 g/dL Normal 30.5-36.0 [facility] Comment on above: Order Comment: Speci men Type: BLOOD SPECIMENOrdering Facility: [facility] Address: [address] [place] [address] Performed By: #### 5 8410-2 ####[facility] LABCLIA [id number] [place] [address] [place] MCV (RBC) [Entitic vol] 88.4 fL Normal 80.0-100.0 [facility] Comment on above: Order Comment: Speci men Type: BLOOD SPECIMENOrdering Facility: [facility] Address: [address] [place] [address] Performed By: #### 5 8410-2 ####[facility] LABIA [id number] [place] [address] [place] Nucleated RBC (Bld) [#/Vol] 10*3/uL Normal <0.01 [facility] Comment on above: Order Comment: Speci men Type: BLOOD SPECIMENOrdering Facility: [facility] Address: [address] [place] [address] Performed By: #### 5 8410-2 ####[facility] LABIA [id number] [place] [address] [place] Platelet mean volume (Bld) [Entitic vol] 9.9 fL Normal 9.0-12.7 [facility] Comment on above: Order Comment: Speci men Type: BLOOD SPECIMENOrdering Facility: [facility] Address: [address] [place] [address] Performed By: #### 5 8410-2 ####[facility] LABIA [id number] [place] [address] [place] Platelets (Bld) [#/Vol] 197 10*3/uL Normal 150-400 [facility] Comment on above: Order Comment: Speci men Type: BLOOD SPECIMENOrdering Facility: [facility] Address: [address] [place] [address] Performed By: #### 5 8410-2 ####[facility] LABIA [id number] [place] [address] [place] RBC (Bld) [#/Vol] 4.24 10*6/uL Normal 4.20-6.00 [facility] Comment on above: Order Comment: Speci men Type: BLOOD SPECIMENOrdering Facility: [facility] Address: [address] [place] [address] Performed By: #### 5 8410-2 ####[facility] LABCLIA [id number] [place] [address] [place] WBC (Bld) [#/Vol] 6.03 10*3/uL Normal 3.70-11.00 [facility] Comment on above: Order Comment: Speci men Type: BLOOD SPECIMENOrdering Facility: [facility] Address: [address] [place] [address] Performed By: #### 5 8410-2 ####[facility] LABCLIA [id number] [address] [place] CNOVon 08-13-2024 CNOV Office Visit (FPWADS ) ----- ASCENCION WEIR ([id number]) 1950 M Date Time Provider Department 08/13/24 2:00 PM DAXA WING FPWADS During your visit today, we recorded the following information about you: Pulse Blood pressure Weight 76/minute 130/56 89 kg Daxa Wing APRN.CLIENT SERVICES MANAGER 08/13/2024 2:47 PM Signed This note was created using Medivoriter. Subjective Ascencion Weir is a 73 year old male. Patient here for [facility] care follow-up. DMII: A1C today 5.9%. Taking metformin only. Uses Levemir about 2-3x/month, usually 7-10 units, no sugars over 200. HTN: doesn't check BP's at home. Takes metoprolol daily. The history is provided by the patient. Review of Systems Eyes: Negative for visual disturbance. Respiratory: Negative for shortness of breath. Cardiovascular: Negative for chest pain. Gastrointestinal: Negative for abdominal pain. Neurological: Negative for dizziness and headaches. PAST MEDICAL HISTORY Diagnosis Date Aortic valvar stenosis Arthritis BPH (benign prostatic hyperplasia) HTN (hypertension) LIAN (obstructive sleep apnea) Other and unspecified disc disorder of unspecified region Intervertebral disc disorders Other and unspecified hyperlipidemia Sciatica Type II or unspecified type diabetes mellitus without mention of complication, not stated as uncontrolled PAST SURGICAL HISTORY Procedure Laterality Date ARTHRS KNEE ABRASION ARTHRP/FLARE MAKER DRLG/MICROFX 2013 and 2014 [facility] and Dr. Thrasher with Kneecap CARDIAC CATH 03/18/2020 [facility] I/D PERIANAL ABSCESS, SUPERFICIAL 08/13/08 PAST SURGICAL HISTORY OF 07/07 lumbar diskectomy PAST SURGICAL HISTORY OF Right 2015 TKR ALLERGIES Entex Pse [Pseudoephedrine-Guaifene sin] MEDICATIONS traMADol (ULTRAM) 50 mg tablet Take 1 tablet by mouth every 6 hours as needed for pain for up to 90 days. metFORMIN (GLUCOPHAGE) 1,000 mg tablet Take 1 tablet by mouth two times a day with meals. atorvastatin (LIPITOR) 20 mg tablet Take 1 tablet by mouth once daily. metoprolol succinate ER (TOPROL XL) 100 mg Take 0.5 tablets by mouth once daily. hydrOXYchloroQUINE (PLAQUENIL) 200 mg tablet Take 1 tablet by mouth every afternoon. celecoxib (CELEBREX) 200 mg capsule Take 1 capsule by mouth twice daily. Take with food. amoxicillin (AMOXIL) 500 mg capsule Take 4 capsules by mouth prior to dental procedure. blood sugar diagnostic (TRUE METRIX GLUCOSE TEST STRIP) test strip Test blood sugar(s) 3 times daily. Insulin: Yes tamsulosin (FLOMAX) 0.4 mg Take 1 capsule by mouth daily at bedtime. Lancets lancets Test blood sugar(s) 4 times daily. Dx: Type 2 DM - Controlled E11.9 Insulin: Yes CPAP Initiate CPAP @ 7 cm of water with humidification. Mask (per patient preference) optional chin strap (if indicated) , filters, tubing, humidifier and lifetime supplies. aspirin, enteric coated (ADULT ASPIRIN EC LOW STRENGTH) 81 mg EC tablet Take 1 tablet by mouth every 48 hours. COMPOUNDED PRESCRIPTION Accu-chek Lois Meter with multiclix lancet device use as directed gabapentin (NEURONTIN) 400 mg capsule Take 1 capsule by mouth two times a day for 180 days. FAMILY HISTORY Problem Relation Age of Onset Arthritis Mother other (AMI) Mother Asthma Father other (RI) Father No Known Problems Daughter No Known Problems Daughter Social History Tobacco Use Smoking status: Former Current packs/day: 0.00 Types: Cigarettes Quit date: 09/12/1994 Years since quittin.9 Smokeless tobacco: Never Tobacco comments: No one in household smokes Vaping Use Vaping status: Never Used Substance Use Topics Alcohol use: No Drug use: No Objective BP 135/57 Pulse 76 Wt 89 kg (196 lb 3.4 oz) BMI 29.84 kg/m? BP 130/56 (BP Site: Left Arm, BP Position: Sitting, BP Cuff Size: Large Adult) Pulse 76 Wt 89 kg (196 lb 3.4 oz) BMI 29.84 kg/m? Physical Exam Vitals and nursing note reviewed. Constitutional: Appearance: He is well-developed. He is obese. He is not ill-appearing. Cardiovascular: Rate and Rhythm: Normal rate and regular rhythm. Heart sounds: Normal heart sounds. Pulmonary: Effort: Pulmonary effort is normal. Breath sounds: Normal breath sounds. Skin: General: Skin is warm and dry. Neurological: Mental Status: He is alert and oriented to person, place, and time. Psychiatric: Mood and Affect: Mood normal. Assessment and Plan 1. Controlled type 2 diabetes mellitus with diabetic neuropathy, with long-term current use of insulin (HCC) Well controlled, hold insulin and continue metformin and diet changes only. - HEMOGLOBIN A1C (POC) - COMPLETE BLOOD COUNT - ALBUMIN/CREATININE RATIO, URINE 2. Essential hypertension, benign Controlled, continue current medication. - COMPREHENSIVE METABOLIC PANEL 3. Mixed hyperlipidemia Fasting labs to recheck today. - COMPREHENSIVE METABOLIC PANEL - LIP (more content not included)... Normal [facility] Comprehensive metabolic 2000 panelon 08-13-2024 Albumin [Mass/Vol] 4.4 g/dL Normal 3.9-4.9 [facility] Comment on above: Order Comment: Speci men Type: BLOOD SPECIMENOrdering Facility: [facility] Address: [address] [place] [address] Performed By: #### 2 0283-8, 62841-4 ####[facility] LABCLIA [id number] [place] [address] [place] ALP [Catalytic activity/Vol] 93 U/L Normal 38-113 [facility] Comment on above: Order Comment: Speci men Type: BLOOD SPECIMENOrdering Facility: [facility] Address: [address] [place] [address] Performed By: #### 2 4323-8, 31585-8 ####[facility] LABCLIA [id number] [place] [address] [place] ALT [Catalytic activity/Vol] 14 U/L Normal 10-54 [facility] Comment on above: Order Comment: Speci men Type: BLOOD SPECIMENOrdering Facility: [facility] Address: [address] [place] [address] Performed By: #### 2 4323-8, 49788-2 ####[facility] LABCLIA [id number] [place] [address] [place] Anion gap [Moles/Vol] 12 mmol/L Normal 8-15 [facility] Comment on above: Order Comment: Speci men Type: BLOOD SPECIMENOrdering Facility: [facility] Address: [address] [place] [address] Performed By: #### 2 4323-8, 81313-7 ####[facility] LABCLIA [id number] [place] [address] [place] AST [Catalytic activity/Vol] 20 U/L Normal 14-40 [facility] Comment on above: Order Comment: Speci men Type: BLOOD SPECIMENOrdering Facility: [facility] Address: [address] [place] [address] Performed By: #### 2 4323-8, 80124-4 ####[facility] LABCLIA [id number] [address] [id number] [address] [place] Bilirubin [Mass/Vol] 0.2 mg/dL Normal 0.2-1.3 [facility] Comment on above: Order Comment: Speci men Type: BLOOD SPECIMENOrdering Facility: [facility] Address: [address] [place] [address] Performed By: #### 2 4323-8, 80749-7 ####[facility] LABCLIA [id number] [place] [address] [place] Calcium [Mass/Vol] 9.3 mg/dL Normal 8.5-10.2 [facility] Comment on above: Order Comment: Speci men Type: BLOOD SPECIMENOrdering Facility: [facility] Address: [address] [place] [address] Performed By: #### 2 4323-8, 43064-0 ####[facility] LABCLIA [id number] [place] [address] [place] Chloride [Moles/Vol] 97 mmol/L Low 98-107 [facility] Comment on above: Order Comment: Speci men Type: BLOOD SPECIMENOrdering Facility: [facility] Address: [address] [place] [address] Performed By: #### 2 4323-8, 62717-5 ####[facility] LABCLIA [id number] [place] [address] [place] CO2 [Moles/Vol] 24 mmol/L Normal 22-30 [facility] Comment on above: Order Comment: Speci men Type: BLOOD SPECIMENOrdering Facility: [facility] Address: [address] [place] [address] Performed By: #### 2 4323-8, 13703-7 ####[facility] LABCLIA [id number] [place] [address] [place] Creatinine [Mass/Vol] 0.93 mg/dL Normal 0.73-1.22 [facility] Comment on above: Order Comment: Speci men Type: BLOOD SPECIMENOrdering Facility: [facility] Address: [address] [place] [address] Performed By: #### 2 4323-8, 78006-1 ####[facility] LABIA [id number] [place] [address] [place] Creatinine and Glomerular filtration rate.predicted panel (S/P/Bld) 86 mL/min/1.73m??? Normal >=60 [facility] Comment on above: Order Comment: Jazmyn rivero Type: BLOOD SPECIMENOrdering Facility: [facility] Address: [address] [place] [address] Result Comment: Jayde mated Glomerular Filtration Rate (eGFR) is calculated using the 2020 CKD-EPI creatinine equation. This equation utilizes serum creatinine, sex, and age as parameters. The creatinine assay has traceable calibration to isotope dilution-mass spectrometry. Refer to KDIGO guidelines for clinical interpretation. In patients with unstable renal function, e.g. those with acute kidney injury, the eGFR may not accurately reflect actual GFR. Performed By: #### 2 4323-8, 95657-0 ####[facility] LABIA [id number] [place] [address] [place] Glucose [Mass/Vol] 95 mg/dL Normal 74-99 [facility] Comment on above: Order Comment: Jazmyn josefa Type: BLOOD SPECIMENOrdering Facility: [facility] Address: [address] [place] [address] Result Comment: The [place] Diabetes Association (ADA) provides guidance for cutoff values for fasting glucose and random glucose. The ADA defines fasting as no caloric intake for at least 8 hours. Fasting plasma glucose results between 100 to 125 mg/dL indicate increased risk for diabetes (prediabetes). Fasting plasma glucose results greater than or equal to 126 mg/dL meet the criteria for diagnosis of diabetes. In the absence of unequivocal hyperglycemia, results should be confirmed by repeat testing. In a patient with classic symptoms of hyperglycemia or hyperglycemic crisis, random plasma glucose results greater than or equal to 200 mg/dL meet the criteria for diagnosis of diabetes. Reference: Standards of Medical Care in Diabetes 2016, [place] Diabetes Association. Diabetes Care. 2016.39(Suppl 1). Performed By: #### 2 4323-8, 77112-6 ####[facility] LABCLIA [id number] [place] [address] [place] Potassium [Moles/Vol] 4.8 mmol/L Normal 3.7-5.1 [facility] Comment on above: Order Comment: Speci men Type: BLOOD SPECIMENOrdering Facility: [facility] Address: [address] [place] [address] Performed By: #### 2 4323-8, 45678-1 ####[facility] LABCLIA [id number] [place] [address] [place] Protein [Mass/Vol] 7.3 g/dL Normal 6.3-8.0 [facility] Comment on above: Order Comment: Speci men Type: BLOOD SPECIMENOrdering Facility: [facility] Address: [address] [place] [address] Performed By: #### 2 4323-8, 91729-7 ####[facility] LABCLIA [id number] [place] [address] [place] Sodium [Moles/Vol] 133 mmol/L Low 136-144 [facility] Comment on above: Order Comment: Speci men Type: BLOOD SPECIMENOrdering Facility: [facility] Address: [address] [place] [address] Performed By: #### 2 4323-8, 59477-2 ####[facility] LABCLIA [id number] [place] [id number] [place] Urea nitrogen [Mass/Vol] 17 mg/dL Normal 9-24 [facility] Comment on above: Order Comment: Speci men Type: BLOOD SPECIMENOrdering Facility: [facility] Address: [address] [place] [address] Performed By: #### 2 4323-8, 47493-6 ####[facility] LABCLIA [id number] [place] [address] [place] HEMOGLOBIN A1C (POC)on 08-13 HbA1c (Bld) [Mass fraction] 5.9 % Abnormal 4.3 - 5.6 % [facility] Comment on above: [facility], [address] [place] [address], [facility] Point of care (POC) Hemoglobin A1c (HGBA1C) testing is intended to assess glucose control and provide a management tool for patients known to have diabetes and their healthcare providers. Target HGBA1C levels may depend on specific clinical circumstances. POC HGBA1C is not intended for use as a diagnostic or screening test; laboratory-based testing should be used for diagnostic purposes. The following information is supplemental and may not be applicable to specific diabetes management situations: The POC device foreign correspondent provides a normal range of 4.2% to 6.5% for the HGBA1C POC test. However, the [place] Diabetes Association guidelines indicate that patients with HGBA1C in the range of 5.7% to 6.4% are at increased risk for development of diabetes and that intervention by lifestyle modification may be beneficial. A HGBA1C level greater than or equal to 6.5% is considered diagnostic of diabetes, pending confirmatory testing. Use of HGBA1C testing to evaluate glucose control may not be appropriate for patients with hemoglobin variants or other conditions (e.g. anemia) that alter red blood cell lifespan. Interpretation and review of laboratory results Abnormal [facility] Lipid 1996 panelon 4 Cholesterol [Mass/Vol] 119 mg/dL Normal <200 [facility] Comment on above: Order Comment: Speci men Type: BLOOD SPECIMENOrdering Facility: [facility] Address: [address] [place] [address] Result Comment: <200 mg/dL, Desirable 200-239 mg/dL, Borderline high >239 mg/dL, High Performed By: #### 2 4323-8, 31963-2 ####[facility] LABCLIA [id number] [place] [address] [place] Cholesterol in HDL [Mass/Vol] 38 mg/dL Low >39 [facility] Comment on above: Order Comment: Speci men Type: BLOOD SPECIMENOrdering Facility: [facility] Address: [address] [place] [address] Result Comment: 40-5 9 mg/dL, Acceptable >59 mg/dL, High: Negative risk factor for coronary heart disease <40 mg/dL, Low: Positive risk factor for coronary heart disease Performed By: #### 2 4323-8, 56749-3 ####[facility] LABCLIA [id number] [address] [place] Cholesterol in LDL [Mass/Vol] 65 mg/dL Normal <100 [facility] Comment on above: Order Comment: Speci men Type: BLOOD SPECIMENOrdering Facility: [facility] Address: [address] [place] [address] Result Comment: <100 mg/dL, Optimal 100-129 mg/dL, Near optimal/above optimal 130-159 mg/dL, Borderline high 160-189 mg/dL, High >189 mg/dL, Very high Secondary prevention optimal LDL Cholesterol levels are recommended to be < 70 mg/dL Performed By: #### 2 4323-8, 67915-4 ####[facility] LABCLIA [id number] [address] [place] Cholesterol in LDL/Cholesterol in HDL [Mass ratio] 1.71 {ratio} Normal <2.54 [facility] Comment on above: Order Comment: Speci men Type: BLOOD SPECIMENOrdering Facility: [facility] Address: [address] [place] [address] Result Comment: Reffay edmondsce: 1. National Cholesterol Education Program ATP III Guideline At-A-Glance Quick Desk Reference: National Heart, Lung, and Blood Birdseye. National Institutes of Health. 2001: NIH Publication No. 01-3305. 2. An International Atherosclerosis Society position paper: global recommendations for the management of dyslipidemia: executive summary, Atherosclerosis. 2014: 232(2):410-413. Performed By: #### 2 4323-8, 50189-2 ####[facility] LABCLIA [id number] [place] [id number] [place] Cholesterol in VLDL [Mass/Vol] 16 mg/dL Normal <30 [facility] Comment on above: Order Comment: Speci men Type: BLOOD SPECIMENOrdering Facility: [facility] Address: [address] [place] [address] Performed By: #### 2 4323-8, 79649-4 ####[facility] LABCLIA [id number] [facility] [place] [address] [place] Cholesterol non HDL [Mass/Vol] 81 mg/dL Normal <130 [facility] Comment on above: Order Comment: Speci men Type: BLOOD SPECIMENOrdering Facility: [facility] Address: [address] [place] [address] Result Comment: <130 mg/dL, Optimal 130-159 mg/dL, Near optimal/above optimal 160-189 mg/dL, Borderline high 190-219 mg/dL, High >219 mg/dL, Very high Secondary prevention optimal non HDL Cholesterol levels are recommended to be <100 mg/dL Performed By: #### 2 432-8, 68770-7 ####[facility] LABCLIA [id number] [place] [address] [place] Cholesterol.total/Chol esterol in HDL [Mass ratio] 3.13 {ratio} Normal <5.10 [facility] Comment on above: Order Comment: Speci men Type: BLOOD SPECIMENOrdering Facility: [facility] Address: [address] [place] [address] Performed By: #### 2 4323-8, ####[facility] LABCLIA [id number] [facility] [place] [address] [place] FASTING TIME unknown Normal [facility] Comment on above: Order Comment: Speci men Type: BLOOD SPECIMENOrdering Facility: [facility] Address: [address] [place] [address] Performed By: #### 2 4323-8, 26367-1 ####[facility] LABCLIA [id number] [place] [address] [place] Triglyceride [Mass/Vol] 81 mg/dL Normal <150 [facility] Comment on above: Order Comment: Speci men Type: BLOOD SPECIMENOrdering Facility: [facility] Address: [address] [place] [address] Result Comment: <150 mg/dL, Normal 150-199 mg/dL, Borderline high 200-499 mg/dL, High >499 mg/dL, Very high Performed By: #### 2 4323-8, 88258-9 ####[facility] LABCLIA [id number] [address] [place] Surjit 08-09-2024 LYDIA Telephone (SPEEDYPTW) ----- ASCENCION WEIR ([id number]) 1950 M Date Time Provider Department 08/09/24 AARON SOLORZANO During your visit today, we recorded the following information about you: Aimee Almanza 08/09/2024 11:19 AM Signed Ascencion is calling Aaron Solorzano MD today to request medication not on current med list Insulin detemir units-100 Levemir 110 unit/mL injection Drug [facility] [place] on [address] Patient has been identified by name and birthdate. Duration of symptoms: N/A Person calling: self Call patient at: at home [phone] (home) Was an appointment scheduled: No Closing statement: Results or non-symptom based questions: Thank you for calling [facility], your call will be returned within the next business day. Aimee Eubanks [facility] [place]ell Hernandez LPN 08/09/2024 11:30 AM Signed Rx pended please advise Daxa Wing APRN.CLIENT SERVICES MANAGER 08/09/2024 12:29 PM Signed This medication was discontinued in September because his insurance no longer covered it and was switched to Semglee (glargine) at that time. Did he have old detemir that he was using up until now? Patient is long overdue for a diabetes follow-up visit, please schedule KEVIN with either provider. Also due for fasting labs and urine, orders placed, please get done prior to visit for discussion of results. NEIL Dangelo Cheralyn, LPN 08/09/2024 1:10 PM Signed Called pt, left vm requesting return phone call. Kelley Reynolds RN 08/09/2024 4:24 PM Signed Patient returned call and LVM on nurse line. Called and spoke with patient Patient has been using up the remainder of Levemir box he had. Reports he has been watching sugar intake and has not been using Levemir daily. States glucose ranges most days between 80-90. Scheduled OV for Tuesday Daxa Wing APRN.CNP 08/09/2024 5:00 PM Signed Noted, will see Tuesday and send medication at that time Daxa Wing APRN.CNP Allergies As of Date: 08/09/2024 Noted Allergy Reaction ENTEX PSE (PSEUDOEPHEDRINE-GUAIFE*1 10/12/2006 5 - Intolerance Comments: Patient states he does not have any allergies Date Reviewed: 05/19/2024 Reviewed by: Nirali Monahan MA - Fully Assessed Reason for Visit: medication not on current med list [Other] Patient Question [1477] Primary Visit Diagnosis:Mixed hyperlipidemia [E78.2] Other Visit Diagnoses:Controlled type 2 diabetes mellitus with diabetic neuropathy, with long-term current use of insulin (HCC) [E11.40, Z79.4] Essential hypertension, benign [I10] Order(s):HEMOGLOBIN A1C [CIJZL8O] Order #: [id number] FUTURE COMPLETE BLOOD COUNT [SQCBC] Order #: [id number] FUTURE COMPREHENSIVE METABOLIC PANEL [SQCMP] Order #: [id number] FUTURE ALBUMIN/CREATININE RATIO, URINE [SQUACR] Order #: [id number] FUTURE LIPID PANEL BASIC [SQLIPB] Order #: [id number] FUTURE Prescriptions as of 08/09/2024 - traMADol (ULTRAM) 50 mg tablet Take 1 tablet by mouth every 6 hours as needed for pain for up to 90 days. - metFORMIN (GLUCOPHAGE) 1,000 mg tablet Take 1 tablet by mouth two times a day with meals. - atorvastatin (LIPITOR) 20 mg tablet Take 1 tablet by mouth once daily. - metoprolol succinate ER (TOPROL XL) 100 mg Take 0.5 tablets by mouth once daily. - hydrOXYchloroQUINE (PLAQUENIL) 200 mg tablet Take 1 tablet by mouth every afternoon. - celecoxib (CELEBREX) 200 mg capsule Take 1 capsule by mouth twice daily. Take with food. - gabapentin (NEURONTIN) 400 mg capsule Take 1 capsule by mouth three times a day for 180 days. - amoxicillin (AMOXIL) 500 mg capsule Take 4 capsules by mouth prior to dental procedure. - blood sugar diagnostic (TRUE METRIX GLUCOSE TEST STRIP) test strip Test blood sugar(s) 3 times daily. Insulin: Yes - tamsulosin (FLOMAX) 0.4 mg Take 1 capsule by mouth daily at bedtime. - Lancets lancets Test blood sugar(s) 4 times daily. Dx: Type 2 DM - Controlled E11.9 Insulin: Yes - CPAP Initiate CPAP @ 7 cm of water with humidification. Mask (per patient preference) optional chin strap (if indicated) , filters, tubing, humidifier and lifetime supplies. - aspirin, enteric coated (ADULT ASPIRIN EC LOW STRENGTH) 81 mg EC tablet Take 1 tablet by mouth every 48 hours. 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 Normal [facility] 05-31-2024 NATHANAELN Telephone (FPWADS) ----- CARMELLAASCENCION Fay ([id number]) 1950 M Date Time Provider Department 05/31/24 AARON SOLORZANO During your visit today, we recorded the following information about you: Vernell Hernandez LPN 05/31/2024 2:42 PM Signed Received visit summary from [facility]. Placed in provider's inbox for review. Route to [place] scanning Allergies As of Date: 05/31/2024 Noted Allergy Reaction ENTEX PSE (PSEUDOEPHEDRINE-GUAIFE*1 10/12/2006 5 - Intolerance Comments: Patient states he does not have any allergies Date Reviewed: 05/19/2024 Reviewed by: Nirali Monahan MA - Fully Assessed Reason for Visit: Received Outside Medical Records [6312] Cmt: [facility] Prescriptions as of 05/31/2024 - celecoxib (CELEBREX) 200 mg capsule Take 1 capsule by mouth twice daily. Take with food. - traMADol (ULTRAM) 50 mg tablet Take 1 tablet by mouth every 6 hours as needed for pain for up to 90 days. - gabapentin (NEURONTIN) 400 mg capsule Take 1 capsule by mouth three times a day for 180 days. - amoxicillin (AMOXIL) 500 mg capsule Take 4 capsules by mouth prior to dental procedure. - metFORMIN (GLUCOPHAGE) 1,000 mg tablet Take 1 tablet by mouth two times a day with meals. - blood sugar diagnostic (TRUE METRIX GLUCOSE TEST STRIP) test strip Test blood sugar(s) 3 times daily. Insulin: Yes - insulin glargine-yfgn (SEMGLEE,INSULIN GLARG-YFGN,PEN) 100 unit/mL (3 mL) insulin pen Inject 14 Units subcutaneously daily at bedtime. - hydrOXYchloroQUINE (PLAQUENIL) 200 mg tablet Take 1 tablet by mouth every afternoon. - tamsulosin (FLOMAX) 0.4 mg Take 1 capsule by mouth daily at bedtime. - atorvastatin (LIPITOR) 20 mg tablet Take 1 tablet by mouth once daily. - metoprolol succinate ER (TOPROL XL) 100 mg Take 0.5 tablets by mouth once daily. - Insulin Syringe-Needle U-100 (BD ULTRAFINE INSULIN) 1 mL 31 gauge x 01/11 Use as directed once daily with insulin DX: E11.65 DM: yes Insulin: yes - Lancets lancets Test blood sugar(s) 4 times daily. Dx: Type 2 DM - Controlled E11.9 Insulin: Yes - CPAP Initiate CPAP @ 7 cm of water with humidification. Mask (per patient preference) optional chin strap (if indicated) , filters, tubing, humidifier and lifetime supplies. - aspirin, enteric coated (ADULT ASPIRIN EC LOW STRENGTH) 81 mg EC tablet Take 1 tablet by mouth every 48 hours. - multivitamin tablet Take 1 tablet by mouth once daily. 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] 02/24/2009 Displacement of Lumbar Intervertebral Disc with*08/11/2009 Sleep Apnea [G47.30] 11/07/2009 Buttock pain [M79.18] 02/18/2014 Low back pain [M54.50] 02/18/2014 Lumbosacral neuritis [M54.17] 02/18/2014 Lumbar spondylosis [M47.816] 02/18/2014 Lumbar degenerative disc disease [M51.369] 02/18/2014 Mixed hyperlipidemia [E78.2] 10/29/2015 Ischial bursitis of left side [M70.72] 11/08/2015 Nonrheumatic aortic valve stenosis [I35.0] 05/31/2019 Coronary artery disease involving [place]*09/18/2020 Thrombocytopenia (HCC) [D69.6] 01/07/2023 Longstanding persistent atrial fibrillation (HC*01/07/2023 Peripheral arterial disease (HCC) [I73.9] 06/16/2023 Encounter Status:Closed by VERNELL HERNANDEZ on 05/31/24 Normal [facility] Cardiology Visit Reporton Cardiology Visit Report [facility] [address] [place] [address] OFFICE VISIT Date of Service: 05/31/24 MR#: [id number] Acct: [id number] Name: ASCENCION WEIR Rep #: [id number] : 1950 Provider: Dr. Rod Maravilla MD Age/Sex: 73/M Location: [facility] Status: Signed HPI HPI History of Present Illness Details: This gentleman has history of coronary artery disease status post single-vessel CABG with SVG to the RCA and aortic valve replacement in 2019. Here for follow-up visit. Denies angina. No shortness of breath. Denies orthopnea or PND. No ankle edema. Intake Vital Signs 12/06/23 13:18 05/31/24 08:21 Height 5 ft 8 in 5 ft 8 in Weight: 200 lb BMI 30.4 BP 139/67 H Blood Pressure Location Lt brachial Position Sitting Respiration 18 Pulse 70 Pulse Source NIBP Intake Visit Reasons: 6 M Client Renewal Specialist Required: No Accompanied by: Self Is patient in pain?: No Allergies No Known Allergies Allergy (Verified 05/31/24 13:14) Medications ???Medication ???Instructions ???Recorded ???Confirmed ???Type aspirin 81 mg chewable tablet 81 mg PO DAILY heart health 11/21/16 05/31/24 History metformin 500 mg tablet 1,000 mg PO BIDCM diabetes 11/21/16 05/31/24 History tamsulosin 0.4 mg capsule 0.4 mg PO QHS BPH 11/21/16 05/31/24 History gabapentin 400 mg capsule 400 mg PO TID 02/28/20 05/31/24 History hydroxychloroquine 200 mg tablet 200 mg PO DAILY 02/28/20 05/31/24 History tramadol 50 mg tablet 50 mg PO Q6H PRN PRN Pain Or Fever 05/29/20 05/31/24 History multivitamin 1 tab PO DAILY 06/09/20 05/31/24 History celecoxib 200 mg capsule (Celebrex) 200 mg PO BID 06/27/20 05/31/24 History atorvastatin 20 mg tablet 20 mg PO QHS 12/22/20 05/31/24 History insulin detemir U-100 100 unit/mL 10 unit subcut QHS PRN 05/31/24 05/31/24 History (3 mL) subcutaneous pen (Levemir FlexTouch U-100 Insulin) metoprolol succinate 50 mg 50 mg PO QDAY 05/31/24 05/31/24 History tablet,extended release 24 hr Ejection fraction %: 60 Have you fallen in the past year?: No PFSH Medical History Abnormal echocardiogram Arthritis Arthritis Asthmatic bronchitis with exacerbation Atherosclerotic heart disease of [place] coronary artery without angina pectoris Back problem Benign essential hypertension Benign prostatic hypertrophy Cataracts, bilateral Chest pain Chest wall pain Dyspnea on exertion Fever Former smoker H/O methicillin resistant Staphylococcus aureus infection Hearing problem History of tenosynovitis HLD (hyperlipidemia) Hyponatremia Intractable back pain Lightheaded Multi-vessel coronary artery stenosis Near syncope Nonrheumatic aortic (valve) stenosis Obesity Obstructive sleep apnea syndrome Pain Pericardial effusion Physical debility Postoperative atrial fibrillation Right carotid bruit Swelling of joint of left hand Type II diabetes mellitus Surgical History History of aortic valve replacement with bioprosthetic valve ( 05/08/20) History of coronary artery bypass surgery ( 05/08/20) History of knee replacement History of left heart catheterization (03/18/20) History of total knee arthroplasty Family History Father Myocardial infarction, Onset Age: 73 Mother Myocardial infarction, Onset Age: 68 Other Arthritis Asthma Diabetes High cholesterol Hypertension Social History Smoking Status: Former smoker alcohol intake: never substance use type: does not use caffeine: Yes Type: coffee Number of servings: 3 additional social history: Does Not Take Ibuprofen ROS Const Const: Negative for fatigue, weakness, headache(s) or weight gain ENT ENT: Positive for dizziness (seldom; postural) and balance problems (postural; persistent; past 3mo); Negative for headache(s) or Nosebleed/epistaxis Cardio Chest Pain: No Palpitations: No Edema: None Muscle aches with walking: None Resp Respiratory: Negative for SOB with activity, SOB at rest or SOB orthopnea SOB lying down GI GI: Negative nausea, vomiting or heartburn Musc Musc: Positive for joint pain (right elbow; right knee) and balance problems (postural; persistent; past 3mo); Negative for muscle aches/ myalgia or muscle weakness Neuro Neuro: Positive for dizziness (seldom; postural); Negative for lightheadedness, near syncope, syncope, headache(s) or weakness Endo Endo: Negative for fatigue Cardiology Exam Const Appearance: comfortable and no acute distress Nutritional Appearance: well nourished Neck Neck: no JVD Soft right carotid bruit audible. Chest A (more content not included)... Normal [facility] 05-19-2024 [facility] Office Visit (UCWSTR ) ----- ASCENCION WEIR ([id number]) 1950 M Date Time Provider Department 05/19/24 10:30 AM LISA QUINTANILLA [facility] During your visit today, we recorded the following information about you: Temperature Pulse Respiration Blood pressure 98.2 degrees 62/minute 16/minute 134/76 Weight 89 kg Lisa Quintanilla MD 05/19/2024 10:53 AM Signed Patient presents with: Rash: itching x 1 week, on back and arms HPI: Rash: Location: arms, right buttock Duration: 1 week after falling into weeds he was cutting Pruritis: Yes Pain: Yes Change: NO Bleeding/ulceration/blist er/pustule: red bumps Contacts with rash: No Exposure: Outdoor exposure: yes. Recent illness: No. Treatment: neosporin MEDICATIONS: celecoxib (CELEBREX) 200 mg capsule Take 1 capsule by mouth twice daily. Take with food. traMADol (ULTRAM) 50 mg tablet Take 1 tablet by mouth every 6 hours as needed for pain for up to 90 days. gabapentin (NEURONTIN) 400 mg capsule Take 1 capsule by mouth three times a day for 180 days. amoxicillin (AMOXIL) 500 mg capsule Take 4 capsules by mouth prior to dental procedure. metFORMIN (GLUCOPHAGE) 1,000 mg tablet Take 1 tablet by mouth two times a day with meals. blood sugar diagnostic (TRUE METRIX GLUCOSE TEST STRIP) test strip Test blood sugar(s) 3 times daily. Insulin: Yes hydrOXYchloroQUINE (PLAQUENIL) 200 mg tablet Take 1 tablet by mouth every afternoon. tamsulosin (FLOMAX) 0.4 mg Take 1 capsule by mouth daily at bedtime. atorvastatin (LIPITOR) 20 mg tablet Take 1 tablet by mouth once daily. metoprolol succinate ER (TOPROL XL) 100 mg Take 0.5 tablets by mouth once daily. CPAP Initiate CPAP @ 7 cm of water with humidification. Mask (per patient preference) optional chin strap (if indicated) , filters, tubing, humidifier and lifetime supplies. aspirin, enteric coated (ADULT ASPIRIN EC LOW STRENGTH) 81 mg EC tablet Take 1 tablet by mouth every 48 hours. COMPOUNDED PRESCRIPTION Accu-chek Lois Meter with multiclix lancet device use as directed insulin glargine-yfgn (SEMGLEE,INSULIN GLARG-YFGN,PEN) 100 unit/mL (3 mL) insulin pen Inject 14 Units subcutaneously daily at bedtime. (Patient not taking: Reported on 05/19/2024) gabapentin (NEURONTIN) 400 mg capsule Take 1 (ONE) capsule by mouth three times daily (Patient not taking: Reported on 10/17/2023) Insulin Syringe-Needle U-100 (BD ULTRAFINE INSULIN) 1 mL 31 gauge x 5/16 Use as directed once daily with insulin DX: E11.65 DM: yes Insulin: yes (Patient not taking: Reported on 05/19/2024) Lancets lancets Test blood sugar(s) 4 times daily. Dx: Type 2 DM - Controlled E11.9 Insulin: Yes multivitamin tablet Take 1 tablet by mouth once daily. (Patient not taking: Reported on 06/16/2023) ALLERGIES: ALLERGIES Allergen Reactions Entex Pse [Pseudoep* Intolerance Patient states he does not have any allergies VITALS: BP 134/76 Pulse 62 Temp 36.8 ?C (98.2 ?F) Resp 16 Wt 89 kg (196 lb 3.4 oz) SpO2 98% BMI 29.84 kg/m? PHYSICAL EXAM: GEN: pleasant, no acute distress, alert, hard of hearing SKIN: few raised erythematous papules/patches above and below the antecubital areas of both arms. There are some healing shallow ulcerations/abrasions on the dorsal left forearm. Erythematous patches up to 8cm on the right mid to upper buttock extending toward the lateral trochanter. Latest Ref Rng 07/05/2023 Hemoglobin A1C 4.3 - 5.6 % 5.8 (H) ASSESSMENT/PLAN: 1. Rash - ICD9: 782.1, ICD10: R21 Lesions on the arm appear as typical contact allergic dermatitis from plants. By report the patch on his buttock occurred over the same time but may be shingles due to dermatomal distribution. The buttock rash is in the healing phase and VZV swab would have high false-negative rate. - TRIAMCINOLONE ACETONIDE 0.1 % TOPICAL CREAM may be applied to all rash. He is already taking gabapentin. Follow-up with PCP if rash is not improving. Lisa Quintanilla MD Allergies As of Date: 05/19/2024 Noted Allergy Reaction ENTEX PSE (PSEUDOEPHEDRINE-GUAIFE*1 10/12/2006 5 - Intolerance Comments: Patient states he does not have any allergies Date Reviewed: 05/19/2024 Reviewed by: Nirali Monahan MA - Fully Assessed Reason for Visit: Rash [1087] Cmt: itching x 1 week, on back and arms Primary Visit Diagnosis:Rash [R21] Order(s):triamcinolone acetonide (KENALOG) 0.1 % creamApply 1 application to affected area two times a day for 10 days. Apply to affected area. Location: arms and buttock rashDisp: 30 gRfl: 0 Prescriptions as of 05/19/2024 - triamcinolone acetonide (KENALOG) 0.1 % cream Apply 1 application to affected area two times a day for 10 days. Apply to affected area. Location: arms and buttock rash - celecoxib (CELEBREX) 200 mg capsule Take 1 capsule by mouth twice daily. Take with food. - traMADol (ULTRAM) 50 mg tablet Good (more content not included)... Normal [facility] CREATININE FINGERSTICKon CREATININE WB < 1.0 Normal 0.70-1.30 [facility] Comment on above: Performed By: #### L 9100.0200 #### [facility] [address] [place], [address] EGFR WB > 60.0000 Normal >60 [facility] Comment on above: Performed By: #### L 9100.0200 #### [facility] [address] [place], [address] CTA Head AND Neck W/ Contras ton 03-29-2024 CTA Head AND Neck W/ Contrast [facility] [address] [place] [address] CTA Head AND Neck W/ Contrast MR#: [id number] Acct: [id number] Name: ASCENCION WEIR Rep #: [id number] : 1950 M 73 From: Steve Watts PCP: Dr. Mike Solorzano MD Status: [facility] Study: CTA Head AND Neck W/ Contrast Date of Exam: Exam# [id number] Ordering Dr: Liz Leyva [id number] INDICATION: carotid disease, shadowing on ultrasound EXAMINATION: CT BRAIN WITHOUT CONTRAST, CTA HEAD, AND CTA NECK TECHNIQUE: Noncontrast axial images were obtained of the brain. Subsequently, routine carotid CT angiogram protocol was performed without and with IV contrast. In addition, images were obtained of the [place] of [place]. NASCET criteria using the distal ICAs for comparison were used for evaluation of stenoses. 3D reconstructions were reviewed. The protocol utilizes one or more of the following dose reduction techniques: automated exposure control, adjustment of mA and/or kV according to patient size,and/or use of iterative reconstruction technique. IV Contrast dosage and agent: 100mL Isovue-370 COMPARISON: No relevant prior comparison study available FINDINGS: --CT BRAIN WITHOUT CONTRAST: BRAIN PARENCHYMA: No intra- or extra-axial hemorrhage. No evidence of acute infarct. No intracranial mass or mass effect. There is preservation of the mars/white matter interface. Posterior fossa structures are unremarkable. CSF SPACES: Appropriate for age. No hydrocephalus. Basal cisterns are patent. CALVARIUM, SKULL BASE, PARANASAL SINUSES AND MASTOID AIR CELLS: Clear. No discrete lytic or blastic abnormalities. ASPECTS Score for Acute Strokes: 10 --CTA NECK: AORTIC ARCH AND BRANCHES: Normal anatomy, patent. RIGHT CCA: No occlusion, significant stenosis or dissection. RIGHT ICA: Advanced atherosclerotic calcifications in the right carotid bulb without occlusion, significant stenosis or dissection of the right ICA.. LEFT CCA: No occlusion, significant stenosis or dissection. LEFT ICA: Advanced atherosclerotic calcifications in the left carotid bulb without occlusion, significant stenosis or dissection of the left ICA.. RIGHT VERTEBRAL ARTERY: No occlusion, significant stenosis or dissection. LEFT VERTEBRAL ARTERY: No occlusion, significant stenosis or dissection. NECK SOFT TISSUES: Unremarkable. --CTA HEAD: --Anterior circulation: ICAs: No significant stenosis at the intracranial/visualized segments. ACAs: No significant stenosis at the visualized segments. ACOM: Present. MCAs: No significant stenosis at the visualized segments. --Posterior circulation: grain blender: No significant stenosis at the visualized segments. BASILAR ARTERY: No significant stenosis. VERTEBRAL ARTERIES: No significant stenosis at the intradural/visualized segments. No evidence of intracranial aneurysm or vascular malformation. CT/CTA Head AND Neck W/ Contrast IMPRESSION: Advanced atherosclerotic calcifications in the carotid bulbs without occlusion, significant stenosis or dissection of the ICAs. Electronically Signed: Steve Cheatham MD at 4:08 EDT Reading Location ID and State: [facility] / [place] Tel , Service support , CC: RUTH Maurice; Dr. Mike Solorzano MD Hotel Director: Signed Normal [facility] MR/BMS.BVSon 03-14-2024 MR/BMS.BVS [facility] [address] [place] [address]. [address] [place] [address] OFFICE VISIT Date of Service: 03/14/24 MR#: [id number] Acct: [id number] Name: ASCENCION WEIR Rep #: [id number] : 1950 Provider: RUTH Maurice Age/Sex: 73/M Location: [facility] Status: Signed Intake Vital Signs 12/06/23 13:18 03/14/24 10:12 Height 5 ft 8 in Weight: 192 lb BP 151/76 H Blood Pressure Location Lt brachial Position Sitting Respiration 16 Pulse 71 Pulse Source Monitor Temp 97.7 F L Temp Source Temporal Pulse Oximetry (%) 96 Oxygen Delivery Method room air Intake Visit Reasons: CONSULT-CAROTID VARICOSE VEINS Chief Complaint: establish care Is patient in pain?: Yes Allergies No Known Allergies Allergy (Verified 03/14/24 10:14) Medications ???Medication ???Instructions ???Recorded ???Confirmed ???Type aspirin 81 mg chewable tablet 81 mg PO DAILY heart health 11/21/16 03/14/24 History metformin 500 mg tablet 1,000 mg PO BIDCM diabetes 11/21/16 03/14/24 History tamsulosin 0.4 mg capsule 0.4 mg PO QHS BPH 11/21/16 03/14/24 History gabapentin 400 mg capsule 400 mg PO TID 02/28/20 03/14/24 History hydroxychloroquine 200 mg tablet 200 mg PO DAILY 02/28/20 03/14/24 History tramadol 50 mg tablet 50 mg PO Q6H PRN PRN Pain Or Fever 05/29/20 03/14/24 History multivitamin 1 tab PO DAILY 06/09/20 03/14/24 History celecoxib 200 mg capsule (Celebrex) 200 mg PO BID 06/27/20 03/14/24 History insulin detemir U-100 100 unit/mL 15 unit subcut QHS 06/27/20 03/14/24 History (3 mL) subcutaneous pen (Levemir FlexTouch U-100 Insulin) atorvastatin 20 mg tablet 20 mg PO QHS 12/22/20 03/14/24 History metoprolol tartrate 25 mg tablet 12.5 mg PO BID 12/22/20 03/14/24 History Have you fallen in the past year?: No PFSH Medical History Right carotid bruit History of tenosynovitis Former smoker H/O methicillin resistant Staphylococcus aureus infection Arthritis Swelling of joint of left hand Hearing problem Cataracts, bilateral Back problem Arthritis HLD (hyperlipidemia) Hyponatremia Near syncope Lightheaded Chest wall pain Postoperative atrial fibrillation Atherosclerotic heart disease of [place] coronary artery without angina pectoris Pericardial effusion Fever Chest pain Multi-vessel coronary artery stenosis Dyspnea on exertion Abnormal echocardiogram Nonrheumatic aortic (valve) stenosis Intractable back pain Benign prostatic hypertrophy Physical debility Pain Asthmatic bronchitis with exacerbation Obstructive sleep apnea syndrome Obesity Type II diabetes mellitus Benign essential hypertension Surgical History History of aortic valve replacement with bioprosthetic valve ( 05/08/20) History of coronary artery bypass surgery ( 05/08/20) History of left heart catheterization (03/18/20) History of knee replacement History of total knee arthroplasty Family History Father Myocardial infarction, Onset Age: 73 Mother Myocardial infarction, Onset Age: 68 Other Arthritis Asthma Diabetes High cholesterol Hypertension Social History Smoking Status: Former smoker alcohol intake: never substance use type: does not use caffeine: Yes Type: coffee Number of servings: 3 additional social history: Does Not Take Ibuprofen HPI HPI HPI: ASCENCION WEIR, is a 73 M who presents to the office today for evaluation of possible carotid artery disease and RLE varicose veins as referred from the [facility]. He had a carotid duplex on 01/10/24 which showed <50% stenosis of the bilateral internal carotid arteries but also noted significant calcific shadowing. He denies any history of CVA/TIA or prior carotid artery interventions. He also has a varicose vein along the medial aspect of his R proximal calf, R knee, and R distal thigh. He reports that intermittently, about every 2-3 months, he will get a burning/aching pain along this vein. When this occurs, he applies Voltaren gel and this typically resolves the pain quickly. When this occurs, he does not have any associated redness, swelling, warmth, or tenderness to touch. Otherwise, the varicosity is not particularly bothersome. He has compression stockings, but these bother him more than the varicosity at this point. He denies any history of VTE, prior venous interventions, ulcerations, claudication. His medical history is otherwise significant for aortic stenosis s/p bioprosthetic valve replacement (2019), CABG (2019), LIAN, Type 2 DM, HTN, hyperlipidemia. He is a former smoker. ROS General General: No weight change, a (more content not included)... Normal [facility] 04-21-2023 [facility] Telephone (SPAGWO) ----- ASCENCION WEIR ([id number]) 1950 M Date Time Provider Department 04/21/23 PRAVIN HAMPTON During your visit today, we recorded the following information about you: Munira Solorzano 04/21/2023 1:23 PM Signed Spoke with patient regarding missed appointment. Patient stated he called in to cancel appointment yesterday. Patient is seeing a different pain management provider and will call if he needs us in the future. Munira Solorzano Allergies As of Date: 04/21/2023 Noted Allergy Reaction ENTEX PSE (PSEUDOEPHEDRINE-GUAIFE*1 10/12/2006 5 - Intolerance Comments: Patient states he does not have any allergies Date Reviewed: 04/18/2023 Reviewed by: Ariela Dent LPN - Fully Assessed Reason for Visit: No Show (Not No Show, patient called to cancel) [Other] Prescriptions as of 04/21/2023 - gabapentin (NEURONTIN) 400 mg capsule Take 1 capsule by mouth three times daily for 90 days. - hydrOXYchloroQUINE (PLAQUENIL) 200 mg tablet Take 1 tablet by mouth once daily. - LEVEMIR U-100 INSULIN 100 unit/mL injection Inject 14 Units subcutaneously daily at bedtime. - metFORMIN (GLUCOPHAGE) 1,000 mg tablet Take 1 tablet by mouth twice daily with meals. - celecoxib (CELEBREX) 200 mg capsule Take 1 capsule by mouth twice daily. Take with food. - gabapentin (NEURONTIN) 400 mg capsule Take 1 (ONE) capsule by mouth three times daily - atorvastatin (LIPITOR) 20 mg tablet Take 1 tablet by mouth once daily. - blood sugar diagnostic (TRUE METRIX GLUCOSE TEST STRIP) test strip Test blood sugar(s) 4 times daily. Insulin: Yes - tamsulosin (FLOMAX) 0.4 mg TAKE 1 CAPSULE DAILY AT BEDTIME - metoprolol succinate ER (TOPROL XL) 100 mg Take 0.5 tablets by mouth once daily. - Insulin Syringe-Needle U-100 (BD ULTRAFINE INSULIN) 1 mL 31 gauge x 16 Use as directed once daily with insulin DX: E11.65 DM: yes Insulin: yes - Lancets lancets Test blood sugar(s) 4 times daily. Dx: Type 2 DM - Controlled E11.9 Insulin: Yes - CPAP Initiate CPAP @ 7 cm of water with humidification. Mask (per patient preference) optional chin strap (if indicated) , filters, tubing, humidifier and lifetime supplies. - aspirin, enteric coated (ADULT ASPIRIN EC LOW STRENGTH) 81 mg EC tablet Take 1 tablet by mouth every 48 hours. - multivitamin tablet Take 1 tablet by mouth once daily. 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] 02/24/2009 Displacement of Lumbar Intervertebral Disc with*08/11/2009 Sleep Apnea [G47.30] 11/07/2009 Buttock pain [M79.18] 02/18/2014 Low back pain [M54.50] 02/18/2014 Lumbosacral neuritis [M54.17] 02/18/2014 Lumbar spondylosis [M47.816] 02/18/2014 Lumbar degenerative disc disease [M51.36] 02/18/2014 Mixed hyperlipidemia [E78.2] 10/29/2015 Ischial bursitis of left side [M70.72] 11/08/2015 Nonrheumatic aortic valve stenosis [I35.0] 05/31/2019 Coronary artery disease involving [place] malik*09/18/2020 Thrombocytopenia (HCC) [D69.6] 01/07/2023 Longstanding persistent atrial fibrillation (HC*01/07/2023 Encounter Status:Closed by MUNIRA SOLORZANO on 04/21/23 [facility] Absolute lymphocyte countOrd ered By: Dr. Correia on 02-05-2023 Lymphocytes Auto (Unsp spec) [#/Vol] 1.40 10*3/uL 0.83-4.51 [facility] Basophil percentageOrdered B y: Dr. Correia on 02-05-2023 Basophils/100 WBC (Bld) 0.6 % 0-1 [facility] Chloride [Moles/Vol] 99 mmol/L 98-107 [facility] Eosinophils/100 WBC (Bld) 3.1 % 0-5 [facility] Glucose [Mass/Vol] 96 mg/dL 74-106 [facility] Neutrophils (Bld) [#/Vol] 3.8 10*3/uL 2.0-7.7 [facility] Neutrophils/100 WBC (Bld) 62.0 % 47-70 [facility] Potassium [Moles/Vol] 5.0 mmol/L 3.5-5.1 [facility] Comment on above: Moderate Hemolysis, Result may be falsely increased. Sodium [Moles/Vol] 131 mmol/L 136-145 [facility] WBC (Bld) [#/Vol] 6.2 10*3/uL 4.4-11.0 [facility] Blood erythrocytes count (nu mber/volume)Ordered By: Dr. Correia on 02-05-2023 RBC (Bld) [#/Vol] 4.29 10*6/uL 4.6-6.2 [facility] Blood hemoglobin measurement (mass/volume)Ordered By: Dr. Correia on 02-05-2023 Hemoglobin (Bld) [Mass/Vol] 13.0 g/dL 13.0-16.5 [facility] Blood lymphocytes/100 leukoc ytesOrdered By: Dr. Correia on 02-05-2023 Lymphocytes/100 WBC (Bld) 22.7 % 19-41 [facility] Blood monocytes/100 leukocyt esOrdered By: Dr. Correia on 02-05-2023 Monocytes/100 WBC (Bld) 11.3 % 0-10 [facility] Blood platelet mean volumeOr dered By: Dr. Correia on 02-05-2023 Platelet mean volume (Bld) [Entitic vol] 8.9 fL 6.2-12.0 [facility] Determination of erythrocyte mean corpuscular volume (MCV)Ordered By: Dr. Correia on 02-05-2023 MCV (RBC) [Entitic vol] 88.1 fL 80-94 [facility] Hematocrit Auto (Bld) [Volum e fraction]Ordered By: Dr. Correia on 02-05-2023 Hematocrit (Bld) [Volume fraction] 37.8 % 40-54 [facility] Laboratory - Chemistry and C hemistry - challengeOrdered By: Dr. Correia on 02-05-2023 CO2 [Moles/Vol] 26.0 mmol/L 21.0-32.0 [facility] Urea nitrogen/Creatinine [Mass ratio] 17.7 mg/mg 10-20 [facility] Laboratory - Hematology and Cell countsOrdered By: Dr. Correia on 02-05-2023 Erythrocyte distribution width (RBC) [Entitic vol] 39.3 fL 35.1-43.9 [facility] Erythrocyte distribution width (RBC) [Ratio] 12.3 % 11.6-14.6 [facility] Immature granulocytes/100 WBC (Bld) 0.300 % 0.0-0.9 [facility] Comment on above: IG% - Immature Granu locytes (promyelocytes, myelocytes and metamyelocytes) > 1% indicates that a LEFT SHIFT is Present. MCH (RBC) [Entitic mass] 30.3 pg 27.0-32.0 [facility] Nucleated RBC/100 WBC (Bld) [Ratio] 0 % 0-5 [facility] MCHC Auto (RBC) [Mass/Vol]Or dered By: Dr. Correia on 02-05-2023 MCHC (RBC) [Mass/Vol] 34.4 g/dL 32-36 [facility] No Panel InformationOrdered By: Dr. Correia on 02-05-2023 D-Dimer Quantitative (PE/DVT) 0.66 FEU/ug/m 0.27-0.49 [facility] Comment on above: CRITICAL VALUE VERIF IED. CALLED TO LISA TORRES RN ED02/05/23 1531 Nabor Vazquez.RESULTS READ BACK BY SAME . D-Dimer ELEVATED (>0.49): Additional studies and clinicalassessments are indicated to conclude diagnosis of:Deep Vein Thrombosis (DVT) or Pulmonary Embolism (PE) Estimated Creatinine Clearance Calc 65.31 ml/min [facility] Estimated GFR (MDRD) Amer 98 mL/min >60 [facility] Comment on above: GFR Calc Estimated GFR (MDRD) Non-Af Amer 81 mL/min >60 [facility] Comment on above: Non- GFR Calc Platelets bldOrdered By: Dr. Correia on 02-05-2023 Platelets (Bld) [#/Vol] 192 10*3/uL 150-450 [facility] Serum or plasma calcium tatum urement (mass/volume)Ordered By: Dr. Correia on 02-05-2023 Calcium [Mass/Vol] 9.1 mg/dL 8.5-10.1 [facility] Serum or plasma creatinine m easurement (mass/volume)Ordered By: Dr. Correia on 02-05-2023 Creatinine [Mass/Vol] 0.96 mg/dL 0.70-1.30 [facility] Comment on above: The validity of the calculated GFR & GFRAA in patients over 70 years has not been determined. Clinical correlation is essential. Serum or plasma urea nitroge n measurement (mass/volume)Ordered By: Dr. Correia on 02-05-2023 Urea nitrogen [Mass/Vol] 17 mg/dL 7-18 [facility] Thin prep Papanicolaou smear with manual screeningOrdered By: Dr. Correia on 02-05-2023 Thin prep Papanicolaou smear with manual screening 6 5-15 [facility] CNCOon 02-03-2023 CNCO Letter Text Normal [facility] Absolute lymphocyte counton 03-16-2022 Lymphocytes Auto (Unsp spec) [#/Vol] 2.23 10*3/uL 0.83-4.51 [facility] Work Phone: Basophil percentageon 2021 Basophils/100 WBC (Bld) 1.0 % 0-1 [facility] Work Phone: Chloride [Moles/Vol] 101 mmol/L 98-107 [facility] Work Phone: Eosinophils/100 WBC (Bld) 4.1 % 0-5 [facility] Work Phone: Glucose [Mass/Vol] 112 mg/dL 74-106 [facility] Work Phone: Comment on above: Fasting Glucose resu lt from 100 to 125 mg/dL suggests IMPAIRED HOMEOSTASIS per A.D.A. criteria. Neutrophils (Bld) [#/Vol] 3.8 10*3/uL 2.0-7.7 [facility] Work Phone: Neutrophils/100 WBC (Bld) 52.3 % 47-70 [facility] Work Phone: Potassium [Moles/Vol] 4.3 mmol/L 3.5-5.1 [facility] Work Phone: Sodium [Moles/Vol] 136 mmol/L 136-145 [facility] Work Phone: WBC (Bld) [#/Vol] 7.3 10*3/uL 4.4-11.0 [facility] Work Phone: Blood erythrocytes count (nu mber/volume)on 03-16-2022 RBC (Bld) [#/Vol] 4.63 10*6/uL 4.6-6.2 [facility] Work Phone: Blood hemoglobin measurement (mass/volume)on 03-16-2022 Hemoglobin (Bld) [Mass/Vol] 14.0 g/dL 13.0-16.5 [facility] Work Phone: Blood lymphocytes/100 leukoc yteson 03-16-2022 Lymphocytes/100 WBC (Bld) 30.5 % 19-41 [facility] Work Phone: Blood monocytes/100 leukocyt eson 03-16-2022 Monocytes/100 WBC (Bld) 11.7 % 0-10 [facility] Work Phone: Blood platelet mean volumeon 03-16-2022 Platelet mean volume (Bld) [Entitic vol] 9.5 fL 6.2-12.0 [facility] Work Phone: Determination of erythrocyte mean corpuscular volume (MCV)on 03-16-2022 MCV (RBC) [Entitic vol] 87.9 fL 80-94 [facility] Work Phone: Hematocrit Auto (Bld) [Volum e fraction]on 03-16-2022 Hematocrit (Bld) [Volume fraction] 40.7 % 40-54 [facility] Work Phone: Laboratory - Chemistry and C hemistry - challengeon 03-16-2022 CO2 [Moles/Vol] 27.0 mmol/L 21.0-32.0 [facility] Work Phone: Urea nitrogen/Creatinine [Mass ratio] 17.3 mg/mg 10-20 [facility] Work Phone: Laboratory - Hematology and Cell countson 03-16-2022 Erythrocyte distribution width (RBC) [Entitic vol] 42.3 fL 35.1-43.9 [facility] Work Phone: Erythrocyte distribution width (RBC) [Ratio] 13.1 % 11.6-14.6 [facility] Work Phone: Immature granulocytes/100 WBC (Bld) 0.400 % 0.0-0.9 [facility] Work Phone: Comment on above: IG% - Immature Granu locytes (promyelocytes, myelocytes and metamyelocytes) > 1% indicates that a LEFT SHIFT is Present. MCH (RBC) [Entitic mass] 30.2 pg 27.0-32.0 [facility] Work Phone: Nucleated RBC/100 WBC (Bld) [Ratio] 0 % 0-5 [facility] Work Phone: MCHC Auto (RBC) [Mass/Vol]on 03-16-2022 MCHC (RBC) [Mass/Vol] 34.4 g/dL 32-36 [facility] Work Phone: No Panel Informationon 03-16 D-Dimer Quantitative (PE/DVT) 0.76 FEU/ug/m 0.27-0.49 [facility] Work Phone: Comment on above: D-Dimer ELEVATED (>0 .49): Additional studies and clinicalassessments are indicated to conclude diagnosis of:Deep Vein Thrombosis (DVT) or Pulmonary Embolism (PE)CRITICAL VALUE VERIFIED. CALLED TO CARL SIMPSON ED03/16/22 1006 Jennifer Lion.RESULTS READ BACK BY SAME . Estimated Creatinine Clearance Calc 61.20 ml/min [facility] Work Phone: Estimated GFR (MDRD) Amer 90 mL/min >60 [facility] Work Phone: Comment on above: GFR Calc Estimated GFR (MDRD) Non-Af Amer 74 mL/min >60 [facility] Work Phone: Comment on above: Non- GFR Calc Troponin I High Sensitivity 6 pg/mL 3.0-78.0 [facility] Work Phone: Comment on above: Please Note: New Elisabet t Units and Gender Specific Reference Ranges. For more information see Policy Stat Procedure [place] High Sensitivity Troponin (TNIH) and attachments. Platelets bldon 03-16-2022 Platelets (Bld) [#/Vol] 187 10*3/uL 150-450 [facility] Work Phone: Serum or plasma calcium tatum urement (mass/volume)on 03-16-2022 Calcium [Mass/Vol] 9.4 mg/dL 8.5-10.1 [facility] Work Phone: Serum or plasma creatinine m easurement (mass/volume)on 03-16-2022 Creatinine [Mass/Vol] 1.04 mg/dL 0.70-1.30 [facility] Work Phone: Comment on above: The validity of the calculated GFR & GFRAA in patients over 70 years has not been determined. Clinical correlation is essential. Serum or plasma urea nitroge n measurement (mass/volume)on 03-16-2022 Urea nitrogen [Mass/Vol] 18 mg/dL 7 [facility] Work Phone: Thin prep Papanicolaou smear with manual screeningon 03-16-2022 Thin prep Papanicolaou smear with manual screening 8 5-15 [facility] Work Phone: .Auto Diffon 10-23-2021 Basophil, Absolute 0.00 10 3/mcL Normal 0.00-0.19 [facility] ([place]) Comment on above: Performed By: #### P RO, BMP, GFR, APTT, CBC, ADIFF, ANEU #### [address] [address] Basophils/100 WBC (Bld) 0.5 % Normal 0.0-2.5 [facility] ([place]) Comment on above: Performed By: #### P RO, BMP, GFR, APTT, CBC, ADIFF, ANEU #### [address] [address] Eosinophil, Absolute 0.10 10 3/mcL Normal 0.00-0.40 [facility] ([place]) Comment on above: Performed By: #### P RO, BMP, GFR, APTT, CBC, ADIFF, ANEU #### [address] [address] Eosinophils/100 WBC (Bld) 1.6 % Normal 0.0-7.0 [facility] ([place]) Comment on above: Performed By: #### P RO, BMP, GFR, APTT, CBC, ADIFF, ANEU #### [address] [address] Lymphocyte, Absolute 1.60 10 3/mcL Normal 0.77-3.85 [facility] ([place]) Comment on above: Performed By: #### P RO, BMP, GFR, APTT, CBC, ADIFF, ANEU #### [address] [address] Lymphocytes/100 WBC (Bld) 18.6 % Normal 10.0-50.0 [facility] ([place]) Comment on above: Performed By: #### P RO, BMP, GFR, APTT, CBC, ADIFF, ANEU #### [address] [address] Monocyte, Absolute 1.20 10 3/mcL High 0.15-1.00 [facility] ([place]) Comment on above: Performed By: #### P RO, BMP, GFR, APTT, CBC, ADIFF, ANEU #### [address] [address] Monocytes/100 WBC (Bld) 13.4 % High 1.7-13.0 [facility] ([place]) Comment on above: Performed By: #### P RO, BMP, GFR, APTT, CBC, ADIFF, ANEU #### [address] [address] Neutrophils/100 WBC (Bld) 65.9 % Normal 37.0-80.0 [facility] ([place]) Comment on above: Performed By: #### P RO, BMP, GFR, APTT, CBC, ADIFF, ANEU #### [address] [address] .GFRon 10-23-2021 GFR 90 ml/min/1.73sqm Normal [facility] ([place]) Comment on above: Result Comment: GFR Population mean for , Non- Americans Ages 20-29 = 116 mL/min/1.73 sq.m. Ages 30-39 = 107 mL/min/1.73 sq.m. Ages 40-49 = 99 mL/min/1.73 sq.m. Ages 50-59 = 93 mL/min/1.73 sq.m. Ages 60-69 = 85 mL/min/1.73 sq.m. Ages 70+ = 75 mL/min/1.73 sq.m. Chronic Kidney Disease: Less than 60 mL/min/1.73 square meters End Stage Renal Disease: Less than 15 mL/min/1.73 square meters Performed By: #### P RO, BMP, GFR, APTT, CBC, ADIFF, ANEU #### [address] [address] GFR Non- 74 ml/min/1.73sqm Normal [facility] ([place]) Comment on above: Result Comment: GFR Population mean for , Non- Americans Ages 20-29 = 116 mL/min/1.73 sq.m. Ages 30-39 = 107 mL/min/1.73 sq.m. Ages 40-49 = 99 mL/min/1.73 sq.m. Ages 50-59 = 93 mL/min/1.73 sq.m. Ages 60-69 = 85 mL/min/1.73 sq.m. Ages 70+ = 75 mL/min/1.73 sq.m. Chronic Kidney Disease: Less than 60 mL/min/1.73 square meters End Stage Renal Disease: Less than 15 mL/min/1.73 square meters Performed By: #### P RO, BMP, GFR, APTT, CBC, ADIFF, ANEU #### [address] [address] .NEUABSon 10-23-2021 Neutrophil, Absolute 5.70 10 3/mcL Normal 2.85-6.16 [facility] ([place]) Comment on above: Performed By: #### P RO, BMP, GFR, APTT, CBC, ADIFF, ANEU #### [address] [address] BMPon 10-23-2021 BUN/Creatinine Ratio 14 ratio Normal 7-27 [facility] ([place]) Comment on above: Performed By: #### P RO, BMP, GFR, APTT, CBC, ADIFF, ANEU #### [address] [address] Calcium [Mass/Vol] 8.9 mg/dL Normal 8.4-10.2 [facility] ([place]) Comment on above: Performed By: #### P RO, BMP, GFR, APTT, CBC, ADIFF, ANEU #### [address] [address] Chloride [Moles/Vol] 103 mmol/L Normal 98-107 [facility] ([place]) Comment on above: Performed By: #### P RO, BMP, GFR, APTT, CBC, ADIFF, ANEU #### [address] [address] CO2 [Moles/Vol] 28 mmol/L Normal 23-31 [facility] ([place]) Comment on above: Performed By: #### P RO, BMP, GFR, APTT, CBC, ADIFF, ANEU #### [address] [address] Creatinine [Mass/Vol] 0.99 mg/dL Normal 0.70-1.30 [facility] ([place]) Comment on above: Performed By: #### P RO, BMP, GFR, APTT, CBC, ADIFF, ANEU #### [address] [address] Electrolyte Balance 9.0 mEq/L Normal 4.0-15.0 [facility] ([place]) Comment on above: Performed By: #### P RO, BMP, GFR, APTT, CBC, ADIFF, ANEU #### [address] [address] Glucose [Mass/Vol] 128 mg/dL High 83-110 [facility] ([place]) Comment on above: Performed By: #### P RO, BMP, GFR, APTT, CBC, ADIFF, ANEU #### [address] [address] Potassium [Moles/Vol] 4.8 mmol/L Normal 3.5-5.1 [facility] ([place]) Comment on above: Performed By: #### P RO, BMP, GFR, APTT, CBC, ADIFF, ANEU #### [address] [address] Sodium [Moles/Vol] 140 mmol/L Normal 136-145 [facility] ([place]) Comment on above: Performed By: #### P RO, BMP, GFR, APTT, CBC, ADIFF, ANEU #### [place] [id number] Urea nitrogen [Mass/Vol] 14 mg/dL Normal 7-18 [facility] ([place]) Comment on above: Performed By: #### P RO, BMP, GFR, APTT, CBC, ADIFF, ANEU #### [place] [id number] CBCon 10-23-2021 Erythrocyte distribution width (RBC) [Ratio] 13.8 % Normal 11.5-14.5 [facility] ([place]) Comment on above: Performed By: #### C BC, ADIFF, ANEU, BMP, GFR #### [place] [id number] Hematocrit (Bld) [Volume fraction] 38.1 % Low 42.0-52.0 [facility] ([place]) Comment on above: Performed By: #### C BC, ADIFF, ANEU, BMP, GFR #### [place] [address] Hgb 13.1 G/dL Low 14.0-18.0 [facility] ([place]) Comment on above: Performed By: #### C BC, ADIFF, ANEU, BMP, GFR #### [place] [id number] MCH (RBC) [Entitic mass] 30.8 pg Normal 27.0-31.2 [facility] ([place]) Comment on above: Performed By: #### C BC, ADIFF, ANEU, BMP, GFR #### [place] [id number] MCHC 34.3 G/dL Normal 31.8-35.4 [facility] ([place]) Comment on above: Performed By: #### C BC, ADIFF, ANEU, BMP, GFR #### [place] [id number] MCV (RBC) [Entitic vol] 89.8 fL Normal 80.0-94.0 [facility] ([place]) Comment on above: Performed By: #### C BC, ADIFF, ANEU, BMP, GFR #### [address] [address] Platelet 196 10 3/mcL Normal 130-400 [facility] ([place]) Comment on above: Performed By: #### C BC, ADIFF, ANEU, BMP, GFR #### [address] [address] Platelet mean volume (Bld) [Entitic vol] 7.5 fL Normal 7.4-10.4 [facility] ([place]) Comment on above: Performed By: #### C BC, ADIFF, ANEU, BMP, GFR #### [address] [address] RBC 4.24 10 6/mcL Normal 4.04-6.13 [facility] ([place]) Comment on above: Performed By: #### C BC, ADIFF, ANEU, BMP, GFR #### [address] [address] WBC 8.60 10 3/mcL Normal 4.60-10.80 [facility] ([place]) Comment on above: Performed By: #### C BC, ADIFF, ANEU, BMP, GFR #### [address] [address] LABORATORYOrdered By: Bucky Johansen on 10-23-2021 Blood Glucose Testing Reason Routine (10/23/21 11:32 AM) [facility] Work Phone: Glucose [Mass/Vol] 126 mg/dL Invalid Interpretation Code 82 - 115 mg/dL [facility] Work Phone: LABORATORYOrdered By: Syed Chester on 10-23-2021 Blood Glucose Testing Reason Routine (10/23/21 7:47 AM) [facility] Work Phone: Glucose [Mass/Vol] 120 mg/dL Invalid Interpretation Code 82 - 115 mg/dL [facility] Work Phone: LABORATORYOrdered By: Vivian Moncada on 10-23-2021 Basophil, Absolute 0.00 103/mcL Invalid Interpretation Code 0.00 - 0.19 10^3/mcL AO Auto Heme SS Basophils/100 WBC (Bld) 0.5 % Invalid Interpretation Code 0.0 - 2.5 % AO Auto Heme SS Calcium [Mass/Vol] 8.9 mg/dL Invalid Interpretation Code 8.4 - 10.2 mg/dL AO ADM SS Chloride [Moles/Vol] 103 mmol/L Invalid Interpretation Code 98 - 107 mmol/L AO ADM SS CO2 [Moles/Vol] 28 mmol/L Invalid Interpretation Code 23 - 31 mmol/L AO ADM SS Creatinine [Mass/Vol] 0.99 mg/dL Invalid Interpretation Code 0.70 - 1.30 mg/dL AO ADM SS Electrolyte Balance 9.0 mEq/L Invalid Interpretation Code 4.0 - 15.0 mEq/L AO ADM SS Eosinophil, Absolute 0.10 103/mcL Invalid Interpretation Code 0.00 - 0.40 10^3/mcL AO Auto Heme SS Eosinophils/100 WBC (Bld) 1.6 % Invalid Interpretation Code 0.0 - 7.0 % AO Auto Heme SS Erythrocyte distribution width (RBC) [Ratio] 13.8 % Invalid Interpretation Code 11.5 - 14.5 % AO Auto Heme SS Glucose [Mass/Vol] 128 mg/dL Invalid Interpretation Code 83 - 110 mg/dL AO ADM SS Hematocrit (Bld) [Volume fraction] 38.1 % Invalid Interpretation Code 42.0 - 52.0 % AO Auto Heme SS Hemoglobin (Bld) [Mass/Vol] 13.1 G/dL Invalid Interpretation Code 14.0 - 18.0 G/dL AO Auto Heme SS Lymphocyte, Absolute 1.60 103/mcL Invalid Interpretation Code 0.77 - 3.85 10^3/mcL AO Auto Heme SS Lymphocytes/100 WBC (Bld) 18.6 % Invalid Interpretation Code 10.0 - 50.0 % AO Auto Heme SS MCH (RBC) [Entitic mass] 30.8 pg Invalid Interpretation Code 27.0 - 31.2 pg AO Auto Heme SS MCHC (RBC) [Mass/Vol] 34.3 G/dL Invalid Interpretation Code 31.8 - 35.4 G/dL AO Auto Heme SS MCV (RBC) [Entitic vol] 89.8 fL Invalid Interpretation Code 80.0 - 94.0 fL AO Auto Heme SS Monocyte, Absolute 1.20 103/mcL Invalid Interpretation Code 0.15 - 1.00 10^3/mcL AO Auto Heme SS Monocytes/100 WBC (Bld) 13.4 % Invalid Interpretation Code 1.7 - 13.0 % AO Auto Heme SS Neutrophil, Absolute 5.70 103/mcL Invalid Interpretation Code 2.85 - 6.16 10^3/mcL AO Auto Heme SS Neutrophils/100 WBC (Bld) 65.9 % Invalid Interpretation Code 37.0 - 80.0 % AO Auto Heme SS Platelet mean volume (Bld) [Entitic vol] 7.5 fL Invalid Interpretation Code 7.4 - 10.4 fL AO Auto Heme SS Platelets (Bld) [#/Vol] 196 103/mcL Invalid Interpretation Code 130 - 400 10^3/mcL AO Auto Heme SS Potassium [Moles/Vol] 4.8 mmol/L Invalid Interpretation Code 3.5 - 5.1 mmol/L AO ADM SS RBC (Bld) [#/Vol] 4.24 106/mcL Invalid Interpretation Code 4.04 - 6.13 10^6/mcL AO Auto Heme SS Sodium [Moles/Vol] 140 mmol/L Invalid Interpretation Code 136 - 145 mmol/L AO ADM SS Urea nitrogen [Mass/Vol] 14 mg/dL Invalid Interpretation Code 7 - 18 mg/dL AO ADM SS Urea nitrogen/Creatinine [Mass ratio] 14 ratio Invalid Interpretation Code 7 - 27 ratio AO ADM SS WBC (Bld) [#/Vol] 8.60 103/mcL Invalid Interpretation Code 4.60 - 10.80 10^3/mcL AO Auto Heme SS LABORATORYOrdered By: SYSTEM SYSTEM on 10-23-2021 GFR 90 ml/min/1.73sqm Invalid Interpretation Code AO Chemistry S GFR Non- 74 ml/min/1.73sqm Invalid Interpretation Code AO Chemistry S LABORATORYOrdered By: Courtney Butcher on 10-22-2021 Blood Glucose Testing Reason Routine (10/22/21 8:13 PM) [facility] Work Phone: Glucose [Mass/Vol] 200 mg/dL Invalid Interpretation Code 82 - 115 mg/dL [facility] Work Phone: XR FLUORO > 2 HRS TECH TIMEo n 10-22-2021 XR FLUORO > 2 HRS TECH TIME ORIGINAL Images acquired, not reported on this accession number. Normal [facility]) XR CHEST 2 VIEWSon 2 XR CHEST 2 VIEWS ORIGINAL EXAMINATION: TWO XRAY VIEWS OF THE CHEST10/15/2021 11:17 am COMPARISON: None HISTORY: ORDERING SYSTEM PROVIDED HISTORY: Reason for Exam: Pre-admission testing history of open heart surgery and history of smoking FINDINGS: Heart size and mediastinal contours are normal. Previous sternotomy and prosthetic cardiac valve. Clear lungs with no vascular congestion or pleural effusion. Dorsal spondylosis and dextroscoliosis. Calcific tendinitis in the left shoulder. IMPRESSION: No acute cardiopulmonary process. Postop changes of the heart. RECOMMENDATIONS: Unavailable Interpreted by: Ty Schaefer MD Preliminary Report By: Ty Schaefer MD Electronically signed By Ty Schaefer MD Dictated Date: 10/17/2021 10:24:00 AM Prelim Date: 10/17/2021 10:24:49 AM Sign Date: 10/17/2021 10:24:49 AM Ordering Provider: MIKE RAI Normal [facility] ([place]) .Auto Diffon 10-15-2021 Basophil, Absolute 0.00 10 3/mcL Normal 0.00-0.19 Formerly [facility] ([place]) Comment on above: Performed By: #### P RO, BMP, GFR, APTT, CBC, ADIFF, ANEU #### [address] [address] Basophils/100 WBC (Bld) 0.7 % Normal 0.0-2.5 [facility] ([place]) Comment on above: Performed By: #### P RO, BMP, GFR, APTT, CBC, ADIFF, ANEU #### [address] [address] Eosinophil, Absolute 0.10 10 3/mcL Normal 0.00-0.40 A [facility] ([place]) Comment on above: Performed By: #### P RO, BMP, GFR, APTT, CBC, ADIFF, ANEU #### [address] [address] Eosinophils/100 WBC (Bld) 2.6 % Normal 0.0-7.0 [facility] ([place]) Comment on above: Performed By: #### P RO, BMP, GFR, APTT, CBC, ADIFF, ANEU #### [address] [address] Lymphocyte, Absolute 1.40 10 3/mcL Normal 0.77-3.85 [facility] ([place]) Comment on above: Performed By: #### P RO, BMP, GFR, APTT, CBC, ADIFF, ANEU #### [address] [address] Lymphocytes/100 WBC (Bld) 23.9 % Normal 10.0-50.0 [facility] ([place]) Comment on above: Performed By: #### P RO, BMP, GFR, APTT, CBC, ADIFF, ANEU #### [address] [address] Monocyte, Absolute 0.60 10 3/mcL Normal 0.15-1.00 Formerly [facility] ([place]) Comment on above: Performed By: #### P RO, BMP, GFR, APTT, CBC, ADIFF, ANEU #### [address] [address] Monocytes/100 WBC (Bld) 10.9 % Normal 1.7-13.0 [facility] ([place]) Comment on above: Performed By: #### P RO, BMP, GFR, APTT, CBC, ADIFF, ANEU #### [address] [address] Neutrophils/100 WBC (Bld) 61.9 % Normal 37.0-80.0 [facility] ([place]) Comment on above: Performed By: #### P RO, BMP, GFR, APTT, CBC, ADIFF, ANEU #### [address] [address] .GFRon 10-15-2021 GFR 92 ml/min/1.73sqm Normal [facility] ([place]) Comment on above: Result Comment: GFR Population mean for , Non- Americans Ages 20-29 = 116 mL/min/1.73 sq.m. Ages 30-39 = 107 mL/min/1.73 sq.m. Ages 40-49 = 99 mL/min/1.73 sq.m. Ages 50-59 = 93 mL/min/1.73 sq.m. Ages 60-69 = 85 mL/min/1.73 sq.m. Ages 70+ = 75 mL/min/1.73 sq.m. Chronic Kidney Disease: Less than 60 mL/min/1.73 square meters End Stage Renal Disease: Less than 15 mL/min/1.73 square meters Performed By: #### P RO, BMP, GFR, APTT, CBC, ADIFF, ANEU #### [address] [address] GFR Non- 76 ml/min/1.73sqm Normal [facility] ([place]) Comment on above: Result Comment: GFR Population mean for , Non- Americans Ages 20-29 = 116 mL/min/1.73 sq.m. Ages 30-39 = 107 mL/min/1.73 sq.m. Ages 40-49 = 99 mL/min/1.73 sq.m. Ages 50-59 = 93 mL/min/1.73 sq.m. Ages 60-69 = 85 mL/min/1.73 sq.m. Ages 70+ = 75 mL/min/1.73 sq.m. Chronic Kidney Disease: Less than 60 mL/min/1.73 square meters End Stage Renal Disease: Less than 15 mL/min/1.73 square meters Performed By: #### P RO, BMP, GFR, APTT, CBC, ADIFF, ANEU #### [address] [address] .NEUABSon 10-15-2021 Neutrophil, Absolute 3.50 10 3/mcL Normal 2.85-6.16 A [facility] ([place]) Comment on above: Performed By: #### P RO, BMP, GFR, APTT, CBC, ADIFF, ANEU #### [address] [address] APTTon 10-15-2021 aPTT Coag (Bld) [Time] 29.2 s Normal 24.8-33.3 [facility] ([place]) Comment on above: Result Comment: For Heparin anticoagulation therapy, the recommended therapeutic range is: 53.6-87.4 seconds (1.5 - 2.5 the normal plasma mean). Patients on heparin therapy may have an extreme result. Performed By: #### P RO, BMP, GFR, APTT, CBC, ADIFF, ANEU #### [address] [address] Heparin dose (APTT) Unknown Normal [facility] ([place]) Comment on above: Performed By: #### P RO, BMP, GFR, APTT, CBC, ADIFF, ANEU #### [address] [address] BMPon 10-15-2021 BUN/Creatinine Ratio 16 ratio Normal 7-27 [facility]) Comment on above: Performed By: #### P RO, BMP, GFR, APTT, CBC, ADIFF, ANEU #### [address] [address] Calcium [Mass/Vol] 9.1 mg/dL Normal 8.4-10.2 [facility] ([place]) Comment on above: Performed By: #### P RO, BMP, GFR, APTT, CBC, ADIFF, ANEU #### [address] [address] Chloride [Moles/Vol] 101 mmol/L Normal 98-107 [facility] ([place]) Comment on above: Performed By: #### P RO, BMP, GFR, APTT, CBC, ADIFF, ANEU #### [address] [address] CO2 [Moles/Vol] 29 mmol/L Normal 23-31 [facility] ([place]) Comment on above: Performed By: #### P RO, BMP, GFR, APTT, CBC, ADIFF, ANEU #### [address] [address] Creatinine [Mass/Vol] 0.97 mg/dL Normal 0.70-1.30 Formerly [facility] ([place]) Comment on above: Performed By: #### P RO, BMP, GFR, APTT, CBC, ADIFF, ANEU #### [address] [address] Electrolyte Balance 10.0 mEq/L Normal 4.0-15.0 [facility] ([place]) Comment on above: Performed By: #### P RO, BMP, GFR, APTT, CBC, ADIFF, ANEU #### [address] [address] Glucose [Mass/Vol] 117 mg/dL High 83-110 [facility] ([place]) Comment on above: Performed By: #### P RO, BMP, GFR, APTT, CBC, ADIFF, ANEU #### [address] [address] Potassium [Moles/Vol] 4.5 mmol/L Normal 3.5-5.1 [facility] ([place]) Comment on above: Performed By: #### P RO, BMP, GFR, APTT, CBC, ADIFF, ANEU #### [address] [address] Sodium [Moles/Vol] 140 mmol/L Normal 136-145 [facility] ([place]) Comment on above: Performed By: #### P RO, BMP, GFR, APTT, CBC, ADIFF, ANEU #### [address] [address] Urea nitrogen [Mass/Vol] 16 mg/dL Normal 7-18 [facility] ([place]) Comment on above: Performed By: #### P RO, BMP, GFR, APTT, CBC, ADIFF, ANEU #### [address] [address] CBCon 10-15-2021 Erythrocyte distribution width (RBC) [Ratio] 13.6 % Normal 11.5-14.5 [facility] ([place]) Comment on above: Order Comment: Pre-A dmission Testing Performed By: #### P RO, BMP, GFR, APTT, CBC, ADIFF, ANEU #### [address] [address] Hematocrit (Bld) [Volume fraction] 38.8 % Low 42.0-52.0 [facility] ([place]) Comment on above: Order Comment: Pre-A dmission Testing Performed By: #### P RO, BMP, GFR, APTT, CBC, ADIFF, ANEU #### [address] [address] Hgb 13.5 G/dL Low 14.0-18.0 [facility] ([place]) Comment on above: Order Comment: Pre-A dmission Testing Performed By: #### P RO, BMP, GFR, APTT, CBC, ADIFF, ANEU #### [address] [address] MCH (RBC) [Entitic mass] 30.4 pg Normal 27.0-31.2 [facility] ([place]) Comment on above: Order Comment: Pre-A dmission Testing Performed By: #### P RO, BMP, GFR, APTT, CBC, ADIFF, ANEU #### [place] [id number] MCHC 34.9 G/dL Normal 31.8-35.4 [facility] ([place]) Comment on above: Order Comment: Pre-A dmission Testing Performed By: #### P RO, BMP, GFR, APTT, CBC, ADIFF, ANEU #### [address] [address] MCV (RBC) [Entitic vol] 87.3 fL Normal 80.0-94.0 [facility] ([place]) Comment on above: Order Comment: Pre-A dmission Testing Performed By: #### P RO, BMP, GFR, APTT, CBC, ADIFF, ANEU #### [place] [id number] Platelet 199 10 3/mcL Normal 130-400 [facility] ([place]) Comment on above: Order Comment: Pre-A dmission Testing Performed By: #### P RO, BMP, GFR, APTT, CBC, ADIFF, ANEU #### [address] [address] Platelet mean volume (Bld) [Entitic vol] 8.0 fL Normal 7.4-10.4 [facility] ([place]) Comment on above: Order Comment: Pre-A dmission Testing Performed By: #### P RO, BMP, GFR, APTT, CBC, ADIFF, ANEU #### [address] [address] RBC 4.45 10 6/mcL Normal 4.04-6.13 [facility] ([place]) Comment on above: Order Comment: Pre-A dmission Testing Performed By: #### P RO, BMP, GFR, APTT, CBC, ADIFF, ANEU #### [address] [address] WBC 5.70 10 3/mcL Normal 4.60-10.80 [facility] ([place]) Comment on above: Order Comment: Pre-A dmission Testing Performed By: #### P RO, BMP, GFR, APTT, CBC, ADIFF, ANEU #### [address] [address] LABORATORYOrdered By: Keiry Camejo on 10-15-2021 aPTT Coag (Bld) [Time] 29.2 s Invalid Interpretation Code 24.8 - 33.3 seconds AO Coag SS Heparin dose (APTT) Unknown (10/15/21 11:03 AM) Invalid Interpretation Code AO Coag SS INR Coag (PPP) [Relative time] 1.1 {INR} Invalid Interpretation Code 0.9 - 1.2 ratio AO Coag SS PT Coag (PPP) [Time] 13.2 s Invalid Interpretation Code 9.7 - 14.3 seconds AO Coag SS LABORATORYOrdered By: Chel Galo on 10-15-2021 Basophil, Absolute 0.00 103/mcL Invalid Interpretation Code 0.00 - 0.19 10^3/mcL AO Auto Heme SS Basophils/100 WBC (Bld) 0.7 % Invalid Interpretation Code 0.0 - 2.5 % AO Auto Heme SS Eosinophil, Absolute 0.10 103/mcL Invalid Interpretation Code 0.00 - 0.40 10^3/mcL AO Auto Heme SS Eosinophils/100 WBC (Bld) 2.6 % Invalid Interpretation Code 0.0 - 7.0 % AO Auto Heme SS Erythrocyte distribution width (RBC) [Ratio] 13.6 % Invalid Interpretation Code 11.5 - 14.5 % AO Auto Heme SS Hematocrit (Bld) [Volume fraction] 38.8 % Invalid Interpretation Code 42.0 - 52.0 % AO Auto Heme SS Hemoglobin (Bld) [Mass/Vol] 13.5 G/dL Invalid Interpretation Code 14.0 - 18.0 G/dL AO Auto Heme SS Lymphocyte, Absolute 1.40 103/mcL Invalid Interpretation Code 0.77 - 3.85 10^3/mcL AO Auto Heme SS Lymphocytes/100 WBC (Bld) 23.9 % Invalid Interpretation Code 10.0 - 50.0 % AO Auto Heme SS MCH (RBC) [Entitic mass] 30.4 pg Invalid Interpretation Code 27.0 - 31.2 pg AO Auto Heme SS MCHC (RBC) [Mass/Vol] 34.9 G/dL Invalid Interpretation Code 31.8 - 35.4 G/dL AO Auto Heme SS MCV (RBC) [Entitic vol] 87.3 fL Invalid Interpretation Code 80.0 - 94.0 fL AO Auto Heme SS Monocyte, Absolute 0.60 103/mcL Invalid Interpretation Code 0.15 - 1.00 10^3/mcL AO Auto Heme SS Monocytes/100 WBC (Bld) 10.9 % Invalid Interpretation Code 1.7 - 13.0 % AO Auto Heme SS Neutrophil, Absolute 3.50 103/mcL Invalid Interpretation Code 2.85 - 6.16 10^3/mcL AO Auto Heme SS Neutrophils/100 WBC (Bld) 61.9 % Invalid Interpretation Code 37.0 - 80.0 % AO Auto Heme SS Platelet mean volume (Bld) [Entitic vol] 8.0 fL Invalid Interpretation Code 7.4 - 10.4 fL AO Auto Heme SS Platelets (Bld) [#/Vol] 199 103/mcL Invalid Interpretation Code 130 - 400 10^3/mcL AO Auto Heme SS RBC (Bld) [#/Vol] 4.45 106/mcL Invalid Interpretation Code 4.04 - 6.13 10^6/mcL AO Auto Heme SS WBC (Bld) [#/Vol] 5.70 103/mcL Invalid Interpretation Code 4.60 - 10.80 10^3/mcL AO Auto Heme SS LABORATORYOrdered By: Bucky Cook on 10-15-2021 Calcium [Mass/Vol] 9.1 mg/dL Invalid Interpretation Code 8.4 - 10.2 mg/dL AO ADM SS Chloride [Moles/Vol] 101 mmol/L Invalid Interpretation Code 98 - 107 mmol/L AO ADM SS CO2 [Moles/Vol] 29 mmol/L Invalid Interpretation Code 23 - 31 mmol/L AO ADM SS Creatinine [Mass/Vol] 0.97 mg/dL Invalid Interpretation Code 0.70 - 1.30 mg/dL AO ADM SS Electrolyte Balance 10.0 mEq/L Invalid Interpretation Code 4.0 - 15.0 mEq/L AO ADM SS Glucose [Mass/Vol] 117 mg/dL Invalid Interpretation Code 83 - 110 mg/dL AO ADM SS Potassium [Moles/Vol] 4.5 mmol/L Invalid Interpretation Code 3.5 - 5.1 mmol/L AO ADM SS Sodium [Moles/Vol] 140 mmol/L Invalid Interpretation Code 136 - 145 mmol/L AO ADM SS Urea nitrogen [Mass/Vol] 16 mg/dL Invalid Interpretation Code 7 - 18 mg/dL AO ADM SS Urea nitrogen/Creatinine [Mass ratio] 16 ratio Invalid Interpretation Code 7 - 27 ratio AO ADM SS LABORATORYOrdered By: SYSTEM SYSTEM on 10-15-2021 GFR 92 ml/min/1.73sqm Invalid Interpretation Code AO Chemistry S GFR Non- 76 ml/min/1.73sqm Invalid Interpretation Code AO Chemistry S PROon 10-15-2021 INR Coag (PPP) [Relative time] 1.1 {INR} Normal 0.9-1.2 [facility] ([place]) Comment on above: Result Comment: Hayden dard Dose 2.0 - 3.0 High Dose 2.5 - 3.5 The recommended therapeutic range for oral anticoagulant therapy is: LOW RISK: Prophylaxis of venous thrombosis INR: 2.0 - 3.0 Treatment of pulmonary embolism 2.0 - 3.0 Prevention of systemic embolism 2.0 - 3.0 HIGH RISK: Mechanical prosthetic valves 2.5 - 3.5 Performed By: #### P RO, BMP, GFR, APTT, CBC, ADIFF, ANEU #### [place] [id number] [place] [id number] PT Coag (PPP) [Time] 13.2 s Normal 9.7-14.3 [facility] ([place]) Comment on above: Performed By: #### P RO, BMP, GFR, APTT, CBC, ADIFF, ANEU #### [place] [address] [place], [place] [address] INR, POCon 07-04-2020 INR Coag (Bld) [Relative time] 2.8 High 0.9-1.1 [facility] Comment on above: Result Comment: Perf ormed by [employer] [facility] CLIA ID: [id number] [place], [place] Recommended Anticoagulant Therapy: See Below ----- INR of 2.0 - 3.0: - Prophylaxis of Venous Thrombosis (high-risk surgery) - Treatment of Venous Thrombosis - Treatment of Pulmonary Embolism (includes tissue heart valves, Acute Myocardial Infarction to prevent systemic embolism, Valvular Heart Disease, and Atrial Fibrillation) ----- INR of 2.5 - 3.5: - Mechanical Prosthetic Valves (high risk) - If oral anticoagulant therapy is used to prevent Myocardial Infarction Performed By: #### Sandie G3, BMP3 #### [address] [address] POC INRon 07-04-2020 INR Coag (Bld) [Relative time] 2.8 {INR} High [facility] [place] [place] Comment on above: Performed by [facility] [employer] [facility] [facility] CLIA ID: [id number] [place], [place] Recommended Anticoagulant Therapy: See Below ----- INR of 2.0 - 3.0: - Prophylaxis of Venous Thrombosis (high-risk surgery) - Treatment of Venous Thrombosis - Treatment of Pulmonary Embolism (includes tissue heart valves, Acute Myocardial Infarction to prevent systemic embolism, Valvular Heart Disease, and Atrial Fibrillation) ----- INR of 2.5 - 3.5: - Mechanical Prosthetic Valves (high risk) - If oral anticoagulant therapy is used to prevent Myocardial Infarction Interpretation and review of laboratory results Abnormal [place], [place] Basic Metabolic Panelon 10-0 Anion gap [Moles/Vol] 9 Normal [facility] Comment on above: Performed By: #### M G3, BMP3 #### [facility] [address] [place], [place] Calcium [Mass/Vol] 8.6 mg/dL Normal 8.4-10.4 [facility] Comment on above: Performed By: #### Sandie G3, BMP3 #### [place] [address] [address] [place], [place] CO2 [Moles/Vol] 25 mmol/L Normal 22-30 [facility] Comment on above: Performed By: #### Sandie G3, BMP3 #### [place] [address] [address] [place], [place] Glucose [Mass/Vol] 186 mg/dL High 70-100 [facility] Comment on above: Performed By: #### Sandie G3, BMP3 #### [place] [address] [address] [place], [place] Urea nitrogen [Mass/Vol] 15 mg/dL Normal 7-20 [facility] Comment on above: Performed By: #### Sandie G3, BMP3 #### [place] [address] [address] [place], [place] Creatinine [Mass/Vol] 1.01 mg/dL Normal 0.52-1.25 [facility] Comment on above: Performed By: #### Sandie G3, BMP3 #### [place] [address] [address] [place], [place] GFR/1.73 sq M predicted among blacks MDRD (S/P/Bld) [Vol rate/Area] 85.9 mL/min/{1.73_m2} Normal >60 [facility] Comment on above: Performed By: #### Sandie G3, BMP3 #### [place] [address] [address] [place], [place] GFR/1.73 sq M predicted among non-blacks MDRD (S/P/Bld) [Vol rate/Area] 74.1 mL/min/{1.73_m2} Normal >60 [facility] Comment on above: Result Comment: KDIG O guidelines provide the following GFR categories: Stage GFR(ml/min/1.73 m2) Terms G1 >=90 Normal or high G2 60-89 Mildly decreased* G3a 45-59 Mildly to moderately decreased G3b 30-44 Moderately to severely decreased G4 15-29 Severely decreased G5 <15 Kidney failure *Relative to young adult level. In the absence of evidence of kidney damage, neither GFR category G1 nor G2 fulfill the criteria for CKD. The CKD-EPI equation is validated in individuals 18 years of age and older. Currently the best equation for estimating glomerular filtration rate (GFR) from serum creatinine in children is the Bedside Garza equation. It is less accurate in patients with extremes of muscle mass, restriction of dietary protein, ingestion of creatine, extra-renal metabolism of creatinine, or treatment with medications that affect renal tubular creatinine secretion. Performed By: #### Sandie G3, BMP3 #### [facility] [address] [place] [address] Chloride [Moles/Vol] 101 mmol/L Normal 98-107 [facility] Comment on above: Performed By: #### Sandie G3, BMP3 #### [facility] [address] [place] [address] Potassium [Moles/Vol] 4.1 mmol/L Normal 3.5-5.1 [facility] Comment on above: Performed By: #### Sandie G3, BMP3 #### [facility] [address] [place] [address] Sodium [Moles/Vol] 136 mmol/L Normal 135-145 [facility] Comment on above: Performed By: #### Sandie G3, BMP3 #### [facility] [address] [place] [address] Anion gap [Moles/Vol] 9 mmol/L [place], [place] Calcium [Mass/Vol] 8.6 mg/dL 8.4 - 10. 4 mg/dL [place] Chloride [Moles/Vol] 101 mmol/L 98 - 10 7 mmol/L [place] CO2 [Moles/Vol] 25 mmol/L 22 - 30 mmol/L [place] Creatinine [Mass/Vol] 1.01 mg/dL 0.52 - 1.25 mg/dL [place] EGFR IF NonAfrican Thai 74.1 mL/min >60 [place] Comment on above: KDIGO guidelines pro vide the following GFR categories: Stage GFR(ml/min/1.73 m2) Terms G1 >=90 Normal or high G2 60-89 Mildly decreased* G3a 45-59 Mildly to moderately decreased G3b 30-44 Moderately to severely decreased G4 15-29 Severely decreased G5 <15 Kidney failure *Relative to young adult level. In the absence of evidence of kidney damage, neither GFR category G1 nor G2 fulfill the criteria for CKD. The CKD-EPI equation is validated in individuals 18 years of age and older. Currently the best equation for estimating glomerular filtration rate (GFR) from serum creatinine in children is the Bedside Garza equation. It is less accurate in patients with extremes of muscle mass, restriction of dietary protein, ingestion of creatine, extra-renal metabolism of creatinine, or treatment with medications that affect renal tubular creatinine secretion. GFR/1.73 sq M predicted among blacks MDRD (S/P/Bld) [Vol rate/Area] 85.9 mL/min/{1.73_m2} >60 [place] Glucose [Mass/Vol] 186 mg/dL High 70 - 100 mg/dL [place] Interpretation and review of laboratory results Abnormal [place] Potassium [Moles/Vol] 4.1 mmol/L 3.5 - 5.1 mmol/L [place] Sodium [Moles/Vol] 136 mmol/L 135 - 145 mmol/L [place] Urea nitrogen [Mass/Vol] 15 mg/dL 7 - 20 mg/dL [place] CBC Auto Differentialon 10-0 Absolute Baso # 0.1 10*3/uL 0 - 0.2 10*3/uL [place] Absolute Neut # 3.2 10*3/uL 1.8 - 7 10*3/uL [place] Basophils/100 WBC (Bld) 1.0 % 0 - 2 % [place] Eosinophils (Bld) [#/Vol] 1.0 10*3/uL High 0 - 0.5 10*3/uL [place] Eosinophils/100 WBC (Bld) 16.6 % High 1 - 6 % [place] Erythrocyte distribution width (RBC) [Ratio] 13.9 % 11.5 - 14.5 % [place] Granulocytes/100 WBC (Bld) 53.4 % 40 - 80 % [place] Hematocrit (Bld) [Volume fraction] 29.3 % Low 40 - 52 % [place] Hemoglobin (Bld) [Mass/Vol] 10.2 g/dL Low 13 - 18 g/dL [place] Interpretation and review of laboratory results Abnormal [place] Lymphocytes (Bld) [#/Vol] 1.0 10*3/uL 1 - 4.3 10*3/uL [place] Lymphocytes/100 WBC (Bld) 16.2 % Low 20 - 40 % [place] MCH (RBC) [Entitic mass] 30.5 pg 26 - 34 pg [place] MCHC (RBC) [Mass/Vol] 35.0 % 32 - 36 % [place], [place] MCV (RBC) [Entitic vol] 87.2 fL 80 - 98 fL [place] Monocytes (Bld) [#/Vol] 0.8 10*3/uL 0 - 0.8 10*3/uL [place] Monocytes/100 WBC (Bld) 12.8 % High 2 - 10 % [place] Platelet mean volume (Bld) [Entitic vol] 7.9 fL 7.4 - 10.4 fL [place] Platelets (Bld) [#/Vol] 185 10*3/uL 140 - 440 10*3/uL [place] RBC (Bld) [#/Vol] 3.35 10*6/uL Low 4.4 - 5.9 10*6/uL [place] WBC (Bld) [#/Vol] 6.0 10*3/uL 3.6 - 10.7 10*3/uL [place] Test Performed by [facility], [address] [place] [id number] [place], [place] Culture, Blood 1on 06-02-202 0 Blood Culture, Routine POSITIVE: Staphyl ococcus species (probable Coagulase negative Staph) DETECTED. POSITIVE: mecA (methicillin resistance gene) DETECTED. Presumptive identification performed using [employer] PCR methodology; confirmatory identification to follow. [employer] Blood Culture Identification PCR Panel can detect the following targets: Staphylococcus aureus, Staphylococcus species, Enterococcus species, Streptococcus species, Streptococcus agalactiae (Group B), Streptococcus pneumoniae, Streptococcus pyogenes (Group A), Listeria monocytogenes, Acinetobacter baumannii complex, Enterobacteriaceae, Enterobacter cloacae complex, Escherichia coli, Klebsiella oxytoca, Klebsiella pneumoniae, Proteus species, Serratia marcescens, Pseudomonas aeruginosa, Haemophilus influenzae, Neisseria meningitidis, Jessika albicans, Jessika glabrata, Jessika krusei, Jessika parapsilosis, Jessika tropicalis Abnormal [place] Blood Culture, Routine Isolated: Contamination likely unless additional blood culture sets are found to be positive with the same organism. [place], [place] Blood Culture, Routine Staphylococcus epidermidis Abnormal [place] Interpretation and review of laboratory results Abnormal [place] Test Performed by [facility], [address] [place] [id number] Specimen Source Comment:Blood [place], [place] Glucose,Bedsideon 06-02-2020 Glucose [Mass/Vol] 318 mg/dL High 70-100 [facility] Comment on above: Result Comment: Test performed by glucose meter. Results may be 10%-15% lower than serum/plasma values. (CLIA ID [id number]) Performed By: #### B MP3, PHOS3, HEMOG, PT/AP, MG3 #### [address] Glucose [Mass/Vol] 173 mg/dL [facility] 70-100 [facility] Comment on above: Result Comment: Test performed by glucose meter. Results may be 10%-15% lower than serum/plasma values. (CLIA ID [id number]) Performed By: #### M G3, BMP3 #### [address] [address] Hemogram w/ Autodiffon 06-02 Abs Baso Cnt 0.1 10*3/uL Normal 0.0-0.2 [facility] Comment on above: Performed By: #### H EMDF #### [address] Abs Neutrophile Cnt 3.2 10*3/uL Normal 1.8-7.0 [facility] Comment on above: Performed By: #### H EMDF #### [facility] [address], [place] Basophils/100 WBC (Bld) 1.0 % Normal 0.0-2.0 [facility] Comment on above: Performed By: #### H EMDF #### [facility] [address], [place] Eosinophils (Bld) [#/Vol] 1.0 10*3/uL High 0.0-0.5 [facility] Comment on above: Performed By: #### H EMDF #### [place] [address] [address] [place], [place] Eosinophils/100 WBC (Bld) 16.6 % High 1.0-6.0 [facility] Comment on above: Performed By: #### H EMDF #### [place] [address] [address] [place], [place] Erythrocyte distribution width (RBC) [Ratio] 13.9 % Normal 11.5-14.5 [facility] Comment on above: Performed By: #### H EMDF #### [place] [address] [address] [place], [place] Granulocytes/100 WBC (Bld) 53.4 % Normal 40.0-80.0 [facility] Comment on above: Performed By: #### H EMDF #### [place] [address] [address] [place], [place] Hematocrit (Bld) [Volume fraction] 29.3 % Low 40.0-52.0 [facility] Comment on above: Performed By: #### H EMDF #### [place] [address], [place] Hemoglobin (Bld) [Mass/Vol] 10.2 g/dL Low 13.0-18.0 [facility] Comment on above: Performed By: #### H EMDF #### [place] [address], [place] Lymphocytes (Bld) [#/Vol] 1.0 10*3/uL Normal 1.0-4.3 [facility] Comment on above: Performed By: #### H EMDF #### [facility] [address], [place] Lymphocytes/100 WBC (Bld) 16.2 % Low 20.0-40.0 [facility] Comment on above: Performed By: #### H EMDF #### [facility] [address], [place] MCH (RBC) [Entitic mass] 30.5 pg Normal 26.0-34.0 [facility] Comment on above: Performed By: #### H EMDF #### [facility] [address], [place] MCHC (RBC) [Mass/Vol] 35.0 % Normal 32.0-36.0 [facility] Comment on above: Performed By: #### H EMDF #### [facility] [address], [place] MCV (RBC) [Entitic vol] 87.2 fL Normal 80.0-98.0 [facility] Comment on above: Performed By: #### H EMDF #### [facility] [address], [place] Monocytes (Bld) [#/Vol] 0.8 10*3/uL Normal 0.0-0.8 [facility] Comment on above: Performed By: #### H EMDF #### [facility] [address], [place] Monocytes/100 WBC (Bld) 12.8 % High 2.0-10.0 [facility] Comment on above: Performed By: #### H EMDF #### [facility] [address], [place] Platelet mean volume (Bld) [Entitic vol] 7.9 fL Normal 7.4-10.4 [facility] Comment on above: Performed By: #### H EMDF #### [facility] [address], [place] Platelets (Bld) [#/Vol] 185 10*3/uL Normal 140-440 [facility] Comment on above: Performed By: #### H EMDF #### [facility] [address], [place] RBC (Bld) [#/Vol] 3.35 10*6/uL Low 4.40-5.90 [facility] Comment on above: Performed By: #### H EMDF #### [facility] [address], [place] WBC (Bld) [#/Vol] 6.0 10*3/uL Normal 3.6-10.7 [facility] Comment on above: Performed By: #### H EMDF #### [facility] [address], [place] Magnesiumon 06-02-2020 Magnesium [Mass/Vol] 2.0 mg/dL Normal 1.6-2.3 [facility] Comment on above: Performed By: #### M G3, BMP3 #### [facility] [address], [place] Magnesium [Mass/Vol] 2.0 mg/dL 1.6 - 2 .3 mg/dL [place], [place] Otheron 06-02-2020 Test Performed by [facility], [address] [place] [address] [place], [place] POCT Glucoseon 06-02-2020 Glucose [Mass/Vol] 318 mg/dL High 70 - 100 mg/dL [place], [place] Comment on above: Test performed by [employer] ucose meter. Results may be 10%-15% lower than serum/plasma values. (CLIA ID [id number]) Interpretation and review of laboratory results Abnormal [facility] [place] [place] Test Performed by [facility], [address] [place] [address] [place], [place] Glucose [Mass/Vol] 173 mg/dL High 70 - 100 mg/dL [place], [place] Comment on above: Test performed by gl ucose meter. Results may be 10%-15% lower than serum/plasma values. (CLIA ID [id number]) Interpretation and review of laboratory results Abnormal [facility] [place] [place] Test Performed by [facility], [facility] [address]. [facility] [place] [address] [facility], [place] Add On Lab Teston 06-01-2020 Sodium [Moles/Vol] Accepted [place], [place] Comment on above: Specimen available & acceptable for analysis. Test Performed by [facility], [facility] E. [facility] [place] [address] [facility], [place] Add on test from HISon 06-01 Add on test from HIS Accepted Normal [facility] Comment on above: Result Comment: Spec imen available & acceptable for analysis. Performed By: #### B MP3, PHOS3, HEMOG, PT/AP, MG3 #### [address] [place] [address] [place] [address] Basic Metabolic Panelon Calcium [Mass/Vol] 8.3 mg/dL Low 8.4-10.4 [facility] Comment on above: Performed By: #### B MP3, PHOS3, HEMOG, PT/AP, MG3 #### [place] [address], [place] Anion gap [Moles/Vol] 8 Normal [facility] Comment on above: Performed By: #### B MP3, PHOS3, HEMOG, PT/AP, MG3 #### [place] [address], [place] CO2 [Moles/Vol] 26 mmol/L Normal 22-30 [facility] Comment on above: Performed By: #### B MP3, PHOS3, HEMOG, PT/AP, MG3 #### [place] [address], [place] Creatinine [Mass/Vol] 1.04 mg/dL Normal 0.52-1.25 [facility] Comment on above: Performed By: #### B MP3, PHOS3, HEMOG, PT/AP, MG3 #### [place] [address] [place], [place] GFR/1.73 sq M predicted among blacks MDRD (S/P/Bld) [Vol rate/Area] 82.9 mL/min/{1.73_m2} Normal >60 [facility] Comment on above: Performed By: #### B MP3, PHOS3, HEMOG, PT/AP, MG3 #### [facility] [address] [place] [address] GFR/1.73 sq M predicted among non-blacks MDRD (S/P/Bld) [Vol rate/Area] 71.5 mL/min/{1.73_m2} Normal >60 [facility] Comment on above: Result Comment: KDIG O guidelines provide the following GFR categories: Stage GFR(ml/min/1.73 m2) Terms G1 >=90 Normal or high G2 60-89 Mildly decreased* G3a 45-59 Mildly to moderately decreased G3b 30-44 Moderately to severely decreased G4 15-29 Severely decreased G5 <15 Kidney failure *Relative to young adult level. In the absence of evidence of kidney damage, neither GFR category G1 nor G2 fulfill the criteria for CKD. The CKD-EPI equation is validated in individuals 18 years of age and older. Currently the best equation for estimating glomerular filtration rate (GFR) from serum creatinine in children is the Bedside Garza equation. It is less accurate in patients with extremes of muscle mass, restriction of dietary protein, ingestion of creatine, extra-renal metabolism of creatinine, or treatment with medications that affect renal tubular creatinine secretion. Performed By: #### B MP3, PHOS3, HEMOG, PT/AP, MG3 #### [facility] [address] [place] [address] Glucose [Mass/Vol] 175 mg/dL High 70-100 [facility] Comment on above: Performed By: #### B MP3, PHOS3, HEMOG, PT/AP, MG3 #### [facility] [address] [place] [address] Urea nitrogen [Mass/Vol] 19 mg/dL Normal 7-20 [facility] Comment on above: Performed By: #### B MP3, PHOS3, HEMOG, PT/AP, MG3 #### [facility] [address] [place] [address] Chloride [Moles/Vol] 98 mmol/L Normal 98-107 [facility] Comment on above: Performed By: #### B MP3, PHOS3, HEMOG, PT/AP, MG3 #### [facility] [address], [place] Potassium [Moles/Vol] 4.1 mmol/L Normal 3.5-5.1 [facility] Comment on above: Performed By: #### B MP3, PHOS3, HEMOG, PT/AP, MG3 #### [facility] [address] [place], [place] Sodium [Moles/Vol] 131 mmol/L Low 135-145 [facility] Comment on above: Performed By: #### B MP3, PHOS3, HEMOG, PT/AP, MG3 #### [facility] [address] [place], [place] Basic Metabolic Panel w/ Ref suresh to MGon 06-01-2020 Anion gap [Moles/Vol] 8 mmol/L [place], [place] Calcium [Mass/Vol] 8.3 mg/dL Low 8.4 - 10. 4 mg/dL [place], [place] Chloride [Moles/Vol] 98 mmol/L 98 - 10 7 mmol/L [place] CO2 [Moles/Vol] 26 mmol/L 22 - 30 mmol/L [place] Creatinine [Mass/Vol] 1.04 mg/dL 0.52 - 1.25 mg/dL [place] EGFR IF NonAfrican [place] 71.5 mL/min >60 [place] Comment on above: KDIGO guidelines pro vide the following GFR categories: Stage GFR(ml/min/1.73 m2) Terms G1 >=90 Normal or high G2 60-89 Mildly decreased* G3a 45-59 Mildly to moderately decreased G3b 30-44 Moderately to severely decreased G4 15-29 Severely decreased G5 <15 Kidney failure *Relative to young adult level. In the absence of evidence of kidney damage, neither GFR category G1 nor G2 fulfill the criteria for CKD. The CKD-EPI equation is validated in individuals 18 years of age and older. Currently the best equation for estimating glomerular filtration rate (GFR) from serum creatinine in children is the Bedside Garza equation. It is less accurate in patients with extremes of muscle mass, restriction of dietary protein, ingestion of creatine, extra-renal metabolism of creatinine, or treatment with medications that affect renal tubular creatinine secretion. GFR/1.73 sq M predicted among blacks MDRD (S/P/Bld) [Vol rate/Area] 82.9 mL/min/{1.73_m2} >60 [place], [place] Glucose [Mass/Vol] 175 mg/dL High 70 - 100 mg/dL [place] Interpretation and review of laboratory results Abnormal [place] Potassium [Moles/Vol] 4.1 mmol/L 3.5 - 5.1 mmol/L [place] Sodium [Moles/Vol] 131 mmol/L Low 135 - 145 mmol/L [place] Urea nitrogen [Mass/Vol] 19 mg/dL 7 - 20 mg/dL [place] Test Performed by [facility], [address] [place] [address] [place], [place] CBC Auto Differentialon 10-0 Erythrocyte distribution width (RBC) [Ratio] 13.6 % 11.5 - 14.5 % [place] Hematocrit (Bld) [Volume fraction] 30.6 % Low 40 - 52 % [place] Hemoglobin (Bld) [Mass/Vol] 10.4 g/dL Low 13 - 18 g/dL [place] MCH (RBC) [Entitic mass] 30.0 pg 26 - 34 pg [place] MCHC (RBC) [Mass/Vol] 33.9 % 32 - 36 % [place] MCV (RBC) [Entitic vol] 88.7 fL 80 - 98 fL [place] Platelet mean volume (Bld) [Entitic vol] 8.5 fL 7.4 - 10.4 fL [place] Platelets (Bld) [#/Vol] 146 10*3/uL 140 - 440 10*3/uL [place] RBC (Bld) [#/Vol] 3.45 10*6/uL Low 4.4 - 5.9 10*6/uL [place] WBC (Bld) [#/Vol] 8.8 10*3/uL 3.6 - 10.7 10*3/uL [facility], [place] CR Chest Portableon 06-01-20 20 CR Chest Portable Patient Name: ASCENCION MONTOYA Diagnostic Radiology Exam Date/Time 06/01/2020 08:12:48 EDT Exam CR Chest Portable Ordering Physician HONEY GREGORIO JAN C Accession Number [id number] CPT4 Codes 73241 () Reason For Exam adventious lung sounds Report PORTABLE CHEST CLINICAL INDICATION: Abnormal breath sounds TECHNIQUE: Portable AP COMPARISON: 05/19/2020 FINDINGS: Exam quality: The study is limited due to rotation. EKG leads overlie the chest as well. The heart and mediastinum are normal. Minimal atelectasis is noted at the left lung base without other consolidation or further atelectasis on the right. Costophrenic angles are sharp. Sternal wires are present. IMPRESSION: Minimal atelectasis at the left lung base Report Dictated on Final Dictated: 06/01/2020 8:47 am Dictating Physician: MD WALLACE JEFFREY Signed Date and Time: 06/01/2020 8:48 am Signed by: MD WALLACE JEFFREY Transcribed Date and Time: 06/01/2020 8:47 Normal [facility] EKG 12 Leadon 06-01-2020 [facility] Test Date: 2020-05-30 Pat Name: Ascencion Weir Department: 1AHLU Room: [facility] Gender: M Dog Warden: [facility] : 1950 Requested By: JEAN CLAUDE KILLIAN Order Number: [id number] Reading MD: Omkar Heredia Measurements Intervals Herod Rate: 108 P: 53 DE: 159 QRS: 9 QRSD: 64 T: 58 QT: 291 QTc: 390 Interpretive Statements Sinus tachycardia Abnormal R-wave progression, early transition Borderline T abnormalities, anterior leads Electronically Signed On 06-01-2020 1:06:42 EDT by Omkar Heredia [facility], [place], [facility] Incoming Cardiology Results From [facility] - 06/01/2020 1:07 AM EDT [facility] Test Date: 2020-05-30 Pat Name: Ascencion Weir Department: 1AU Room: LU10 Gender: M Dog Warden: LOREN : 1950 Requested By: JEAN CLAUDE KILLIAN Order Number: [id number] Reading MD: Omkar Heredia Measurements Intervals Herod Rate: 108 P: 53 DE: 159 QRS: 9 QRSD: 64 T: 58 QT: 291 QTc: 390 Interpretive Statements Sinus tachycardia Abnormal R-wave progression, early transition Borderline T abnormalities, anterior leads Electronically Signed On 06-01-2020 1:06:42 EDT by Omkar Heredia [facility], [place] Glucose,Bedsideon 06-01-2020 Glucose [Mass/Vol] 254 mg/dL [place] [address] Comment on above: Result Comment: Test performed by glucose meter. Results may be 10%-15% lower than serum/plasma values. (CLIA ID [id number]) Performed By: #### B MP3, PHOS3, HEMOG, PT/AP, MG3 #### [facility] [address] [place] [address] Glucose [Mass/Vol] 138 mg/dL [address] Comment on above: Result Comment: Test performed by glucose meter. Results may be 10%-15% lower than serum/plasma values. (CLIA ID [id number]) Performed By: #### B MP3, PHOS3, HEMOG, PT/AP, MG3 #### [facility] [address] [place] [address] Glucose [Mass/Vol] 211 mg/dL [address] Comment on above: Result Comment: Test performed by glucose meter. Results may be 10%-15% lower than serum/plasma values. (CLIA ID [id number]) Performed By: #### B MP3, PHOS3, HEMOG, PT/AP, MG3 #### [facility] [address] [place] [address] Glucose [Mass/Vol] 199 mg/dL High [address] [place] [address] Comment on above: Result Comment: Test performed by glucose meter. Results may be 10%-15% lower than serum/plasma values. (CLIA ID [id number]) Performed By: #### B MP3, PHOS3, HEMOG, PT/AP, MG3 #### [place] [address], [place] Hemogram w/ Autodiffon 06-01 Erythrocyte distribution width (RBC) [Ratio] 13.6 % Normal 11.5-14.5 [facility] Comment on above: Performed By: #### B MP3, PHOS3, HEMOG, PT/AP, MG3 #### [place] [address] [place], [place] Hematocrit (Bld) [Volume fraction] 30.6 % Low 40.0-52.0 [facility] Comment on above: Performed By: #### B MP3, PHOS3, HEMOG, PT/AP, MG3 #### [address] Hemoglobin (Bld) [Mass/Vol] 10.4 g/dL Low 13.0-18.0 [facility] Comment on above: Performed By: #### B MP3, PHOS3, HEMOG, PT/AP, MG3 #### [place] [address] [place] MCH (RBC) [Entitic mass] 30.0 pg Normal 26.0-34.0 [facility] Comment on above: Performed By: #### B MP3, PHOS3, HEMOG, PT/AP, MG3 #### [address] [place] [address] [place], [place] MCHC (RBC) [Mass/Vol] 33.9 % Normal 32.0-36.0 [facility] Comment on above: Performed By: #### B MP3, PHOS3, HEMOG, PT/AP, MG3 #### [address] MCV (RBC) [Entitic vol] 88.7 fL Normal 80.0-98.0 [facility] Comment on above: Performed By: #### B MP3, PHOS3, HEMOG, PT/AP, MG3 #### [place] [address] [place], [place] Platelet mean volume (Bld) [Entitic vol] 8.5 fL Normal 7.4-10.4 [facility] Comment on above: Performed By: #### B MP3, PHOS3, HEMOG, PT/AP, MG3 #### [place] [address] [place], [place] Platelets (Bld) [#/Vol] 146 10*3/uL Normal 140-440 [facility] Comment on above: Performed By: #### B MP3, PHOS3, HEMOG, PT/AP, MG3 #### [place] [address] [place], [place] RBC (Bld) [#/Vol] 3.45 10*6/uL Low 4.40-5.90 [facility] Comment on above: Performed By: #### B MP3, PHOS3, HEMOG, PT/AP, MG3 #### [place] [address] [place], [place] WBC (Bld) [#/Vol] 8.8 10*3/uL Normal 3.6-10.7 [facility] Comment on above: Performed By: #### B MP3, PHOS3, HEMOG, PT/AP, MG3 #### [place] [address] [place], [place] Magnesiumon 06-01-2020 Magnesium [Mass/Vol] 1.7 mg/dL Normal 1.6-2.3 [facility] Comment on above: Performed By: #### B MP3, PHOS3, HEMOG, PT/AP, MG3 #### [place] [address] [place], [place] Magnesium [Mass/Vol] 1.7 mg/dL 1.6 - 2 .3 mg/dL [place], [place] Test Performed by [facility], [facility] [place], [place] [id number] [place] [address] Manual Diffon 06-01-2020 Abs Baso Cnt 0.1 10*3/uL Normal 0.0-0.2 [facility] Comment on above: Performed By: #### B MP3, PHOS3, HEMOG, PT/AP, MG3 #### [facility] [address], [place] Abs Eosin Cnt 2.3 10*3/uL High 0.0-0.5 [facility] Comment on above: Performed By: #### B MP3, PHOS3, HEMOG, PT/AP, MG3 #### [facility] [address], [place] Abs Lymph Cnt 1.7 10*3/uL Normal 1.1-4.5 [facility] Comment on above: Performed By: #### B MP3, PHOS3, HEMOG, PT/AP, MG3 #### [place] [address] [place], [place] Abs Monocyte Cnt 0.8 10*3/uL Normal 0.2-1.1 [facility] Comment on above: Performed By: #### B MP3, PHOS3, HEMOG, PT/AP, MG3 #### [place] [address] [place], [place] Abs Neutrophile Cnt 4.0 10*3/uL Normal 2.2-8.2 [facility] Comment on above: Performed By: #### B MP3, PHOS3, HEMOG, PT/AP, MG3 #### [place] [address] [place], [place] Anisocytosis Ql (Bld) Slight Normal [facility] Comment on above: Performed By: #### B MP3, PHOS3, HEMOG, PT/AP, MG3 #### [place] [address] [place], [place] Basophils 1 % Normal 0-2 [facility] Comment on above: Performed By: #### B MP3, PHOS3, HEMOG, PT/AP, MG3 #### [place] [address] [place], [place] Wayne Cells Moderate Normal [facility] Comment on above: Performed By: #### B MP3, PHOS3, HEMOG, PT/AP, MG3 #### [place] [address] [place], [place] Dohle Bodies Slight Normal [facility] Comment on above: Performed By: #### B MP3, PHOS3, HEMOG, PT/AP, MG3 #### [facility] [address], [place] Eosinophils 26 % High 1-6 [facility] Comment on above: Performed By: #### B MP3, PHOS3, HEMOG, PT/AP, MG3 #### [facility] [address], [place] Lymphocytes 19 % Low 20-40 [facility] Comment on above: Performed By: #### B MP3, PHOS3, HEMOG, PT/AP, MG3 #### [facility] [address], [place] Monocytes 9 % Normal 2-10 [facility] Comment on above: Performed By: #### B MP3, PHOS3, HEMOG, PT/AP, MG3 #### [facility] [address], [place] Ovalocytes Slight Normal [facility] Comment on above: Performed By: #### B MP3, PHOS3, HEMOG, PT/AP, MG3 #### [facility] [address], [place] Poikilocytosis Slight Normal [facility] Comment on above: Performed By: #### B MP3, PHOS3, HEMOG, PT/AP, MG3 #### [facility] [address], [place] RBC morphology finding Nom (Bld) ABNORMAL Normal [facility] Comment on above: Performed By: #### B MP3, PHOS3, HEMOG, PT/AP, MG3 #### [facility] [address], [place] Schistocytes Slight Normal [facility] Comment on above: Performed By: #### B MP3, PHOS3, HEMOG, PT/AP, MG3 #### [facility] [address], [place] Seg Neutrophils 45 % Normal 40-80 [facility] Comment on above: Performed By: #### B MP3, PHOS3, HEMOG, PT/AP, MG3 #### [facility] [address] [place] [address] Bands 0 % Normal 0-3 [facility] Comment on above: Performed By: #### B MP3, PHOS3, HEMOG, PT/AP, MG3 #### [facility] [address] [place] [address] Cells counted 100 Normal [facility] Comment on above: Performed By: #### B MP3, PHOS3, HEMOG, PT/AP, MG3 #### [facility] [address] [place] [address] Manual Differentialon 2019 Absolute Baso # 0.1 10*3/uL 0 - 0.2 10*3/uL [facility] [place] Absolute Eos # 2.3 10*3/uL High 0 - 0.5 10*3/uL [facility] [place] Absolute Lymph # 1.7 10*3/uL 1.1 - 4.5 10*3/uL [facility] [place] Absolute [place] # 0.8 10*3/uL 0.2 - 1.1 10*3/uL [facility] [place] Absolute Neut # 4.0 10*3/uL 2.2 - 8.2 10*3/uL [facility] [place] Anisocytosis Ql (Bld) Slight [facility] [place] Bands 0 % 0 - 3 % [facility] [place] Basophils 1 % 0 - 2 % [facility] [place] Baker Cells Moderate [facility] [place] Dohle Bodies Slight [facility] [place] Eosinophils 26 % High 1 - 6 % [facility] [place] Lymphocytes 19 % Low 20 - 40 % [facility] [place] Monocytes 9 % 2 - 10 % [facility] [place] Ovalocytes Slight [facility] [place] Poikilocytes Slight [facility] [place] RBC morphology finding Nom (Bld) ABNORMAL [facility] [place] Schistocytes Slight [facility] [place] Seg Neutrophils 45 % 40 - 80 % [facility] [place] TOTAL CELLS COUNTED 100 [facility] [place] Otheron 06-01-2020 Interpretation and review of laboratory results Abnormal [facility] [place] Test Performed by [facility], [address] [place] [address] [facility] [place] POCT Glucoseon 06-01-2020 Glucose [Mass/Vol] 254 mg/dL High 70 - 100 mg/dL [facility] [place] Comment on above: Test performed by gl ucose meter. Results may be 10%-15% lower than serum/plasma values. (CLIA ID [id number]) Interpretation and review of laboratory results Abnormal [facility] [place] Test Performed by [facility], [address] [place] [address] [facility] [place] Glucose [Mass/Vol] 138 mg/dL High 70 - 100 mg/dL [facility] [place] Comment on above: Test performed by gl ucose meter. Results may be 10%-15% lower than serum/plasma values. (CLIA ID [id number]) Interpretation and review of laboratory results Abnormal [facility] [place] Test Performed by [facility], [address] [place] [address] [facility] [place] Glucose [Mass/Vol] 211 mg/dL High 70 - 100 mg/dL [facility] [place] Comment on above: Test performed by gl ucose meter. Results may be 10%-15% lower than serum/plasma values. (CLIA ID [id number]) Interpretation and review of laboratory results Abnormal [facility] [place] Test Performed by [facility], [address] [place] [address] [facility] [place] Glucose [Mass/Vol] 199 mg/dL High 70 - 100 mg/dL [facility] [place] Comment on above: Test performed by gl ucose meter. Results may be 10%-15% lower than serum/plasma values. (CLIA ID [id number]) Interpretation and review of laboratory results Abnormal [facility] [place] Test Performed by [facility], [address] [place] [address] [facility] [place] XR CHEST PORTABLEon 06-01-20 Patient Name: ASCENCION MONTOYA [facility]: [id number] ---Diagnostic Radiology--- Exam Date/Time 06/01/2020 08:12:48 EDT Exam CR Chest Portable Ordering Physician HONEY GREGORIO MIGUE Harper Accession Number [id number] CPT4 Codes 20714 () Reason For Exam adventious lung sounds Report PORTABLE CHEST CLINICAL INDICATION: Abnormal breath sounds TECHNIQUE: Portable AP COMPARISON: 05/19/2020 FINDINGS: Exam quality: The study is limited due to rotation. EKG leads overlie the chest as well. The heart and mediastinum are normal. Minimal atelectasis is noted at the left lung base without other consolidation or further atelectasis on the right. Costophrenic angles are sharp. Sternal wires are present. IMPRESSION: Minimal atelectasis at the left lung base Report Dictated on --- Final --- Dictated: 06/01/2020 8:47 am Dictating Physician: MD WALLACE JEFFREY Signed Date and Time: 06/01/2020 8:48 am Signed by: MD WALLACE JEFFREY Transcribed Date and Time: 06/01/2020 8:47 [facility], [place], [facility] Incoming Radiology Results From [facility] - 06/01/2020 8:49 AM EDT Patient Name: ASCENCION WEIR ---Diagnostic Radiology--- Exam Date/Time 06/01/2020 08:12:48 EDT Exam CR Chest Portable Ordering Physician HONEY GREGORIO MIGUE Harper Accession Number [id number] CPT4 Codes 18017 () Reason For Exam adventious lung sounds Report PORTABLE CHEST CLINICAL INDICATION: Abnormal breath sounds TECHNIQUE: Portable AP COMPARISON: 05/19/2020 FINDINGS: Exam quality: The study is limited due to rotation. EKG leads overlie the chest as well. The heart and mediastinum are normal. Minimal atelectasis is noted at the left lung base without other consolidation or further atelectasis on the right. Costophrenic angles are sharp. Sternal wires are present. IMPRESSION: Minimal atelectasis at the left lung base Report Dictated on --- Final --- Dictated: 06/01/2020 8:47 am Dictating Physician: MD WALLACE JEFFREY Signed Date and Time: 06/01/2020 8:48 am Signed by: MD WALLACE JEFFREY Transcribed Date and Time: 06/01/2020 8:47 [facility], [place] Basic Metabolic Panelon 10-0 Calcium [Mass/Vol] 8.7 mg/dL Normal 8.4-10.4 [facility] Comment on above: Performed By: #### B GLU #### [facility] [address], [place] Anion gap [Moles/Vol] 9 Normal [facility] Comment on above: Performed By: #### B GLU #### [facility] [address], [place] CO2 [Moles/Vol] 26 mmol/L Normal 22-30 [facility] Comment on above: Performed By: #### B GLU #### [facility] [address], [place] Glucose [Mass/Vol] 126 mg/dL High 70-100 [facility] Comment on above: Performed By: #### B GLU #### [facility] [address], [place] Urea nitrogen [Mass/Vol] 19 mg/dL Normal 7-20 [facility] Comment on above: Performed By: #### B GLU #### [facility] [address], [place] Creatinine [Mass/Vol] 1.10 mg/dL Normal 0.52-1.25 [facility] Comment on above: Performed By: #### B GLU #### [facility] [address], [place] GFR/1.73 sq M predicted among blacks MDRD (S/P/Bld) [Vol rate/Area] 77.4 mL/min/{1.73_m2} Normal >60 [facility] Comment on above: Performed By: #### B GLU #### [facility] [address], [place] GFR/1.73 sq M predicted among non-blacks MDRD (S/P/Bld) [Vol rate/Area] 66.8 mL/min/{1.73_m2} Normal >60 [facility] Comment on above: Result Comment: KDIG O guidelines provide the following GFR categories: Stage GFR(ml/min/1.73 m2) Terms G1 >=90 Normal or high G2 60-89 Mildly decreased* G3a 45-59 Mildly to moderately decreased G3b 30-44 Moderately to severely decreased G4 15-29 Severely decreased G5 <15 Kidney failure *Relative to young adult level. In the absence of evidence of kidney damage, neither GFR category G1 nor G2 fulfill the criteria for CKD. The CKD-EPI equation is validated in individuals 18 years of age and older. Currently the best equation for estimating glomerular filtration rate (GFR) from serum creatinine in children is the Bedside Garza equation. It is less accurate in patients with extremes of muscle mass, restriction of dietary protein, ingestion of creatine, extra-renal metabolism of creatinine, or treatment with medications that affect renal tubular creatinine secretion. Performed By: #### B GLU #### [place] [address], [place] Chloride [Moles/Vol] 98 mmol/L Normal 98-107 [facility] Comment on above: Performed By: #### B GLU #### [address] [address] [place], [place] Potassium [Moles/Vol] 4.5 mmol/L Normal 3.5-5.1 [facility] Comment on above: Performed By: #### B GLU #### [address] [address] [place], [place] Sodium [Moles/Vol] 133 mmol/L Low 135-145 [facility] Comment on above: Performed By: #### B GLU #### [address] Anion gap [Moles/Vol] 9 mmol/L [facility], [place] Calcium [Mass/Vol] 8.7 mg/dL 8.4 - 10. 4 mg/dL [facility], [place] Chloride [Moles/Vol] 98 mmol/L 98 - 10 7 mmol/L [facility], [place] CO2 [Moles/Vol] 26 mmol/L 22 - 30 mmol/L [facility], [place] Creatinine [Mass/Vol] 1.1 mg/dL 0.52 - 1.25 mg/dL [place], [place] EGFR IF NonAfrican [place] 66.8 mL/min >60 [place] Comment on above: KDIGO guidelines pro vide the following GFR categories: Stage GFR(ml/min/1.73 m2) Terms G1 >=90 Normal or high G2 60-89 Mildly decreased* G3a 45-59 Mildly to moderately decreased G3b 30-44 Moderately to severely decreased G4 15-29 Severely decreased G5 <15 Kidney failure *Relative to young adult level. In the absence of evidence of kidney damage, neither GFR category G1 nor G2 fulfill the criteria for CKD. The CKD-EPI equation is validated in individuals 18 years of age and older. Currently the best equation for estimating glomerular filtration rate (GFR) from serum creatinine in children is the Bedside Garza equation. It is less accurate in patients with extremes of muscle mass, restriction of dietary protein, ingestion of creatine, extra-renal metabolism of creatinine, or treatment with medications that affect renal tubular creatinine secretion. GFR/1.73 sq M predicted among blacks MDRD (S/P/Bld) [Vol rate/Area] 77.4 mL/min/{1.73_m2} >60 [place] Glucose [Mass/Vol] 126 mg/dL High 70 - 100 mg/dL [place] Interpretation and review of laboratory results Abnormal [place] Potassium [Moles/Vol] 4.5 mmol/L 3.5 - 5.1 mmol/L [place] Sodium [Moles/Vol] 133 mmol/L Low 135 - 145 mmol/L [place] Urea nitrogen [Mass/Vol] 19 mg/dL 7 - 20 mg/dL [place] Test Performed by [facility], [place] [address] [place], [place] C-Reactive Proteinon 020 CRP [Mass/Vol] 321.1 mg/L High 0.0-6.0 [facility] Comment on above: Result Comment: . Performed By: #### B GLU #### [facility] [address] [place] [address] CRP [Mass/Vol] 321.1 mg/L High 0 - 6 mg/L [place] Comment on above: . Interpretation and review of laboratory results Abnormal [place] Test Performed by [facility], [address] [place] [address], [place] [address] [place], [place] CBC Auto Differentialon 10-0 -2019 Absolute Baso # 0.1 10*3/uL 0 - 0.2 10*3/uL [place] Absolute Neut # 6.4 10*3/uL 1.8 - 7 10*3/uL [place] Basophils/100 WBC (Bld) 0.5 % 0 - 2 % [place] Eosinophils (Bld) [#/Vol] 0.9 10*3/uL High 0 - 0.5 10*3/uL [place] Eosinophils/100 WBC (Bld) 8.6 % High 1 - 6 % [place] Erythrocyte distribution width (RBC) [Ratio] 14.1 % 11.5 - 14.5 % [place] Granulocytes/100 WBC (Bld) 62.7 % 40 - 80 % [place] Hematocrit (Bld) [Volume fraction] 31.3 % Low 40 - 52 % [place] Hemoglobin (Bld) [Mass/Vol] 10.9 g/dL Low 13 - 18 g/dL [place] Interpretation and review of laboratory results Abnormal [place] Lymphocytes (Bld) [#/Vol] 1.6 10*3/uL 1 - 4.3 10*3/uL [place] Lymphocytes/100 WBC (Bld) 15.3 % Low 20 - 40 % [place] MCH (RBC) [Entitic mass] 30.7 pg 26 - 34 pg [place] MCHC (RBC) [Mass/Vol] 34.7 % 32 - 36 % [place], [place] MCV (RBC) [Entitic vol] 88.5 fL 80 - 98 fL [place] Monocytes (Bld) [#/Vol] 1.3 10*3/uL High 0 - 0.8 10*3/uL [place] Monocytes/100 WBC (Bld) 12.9 % High 2 - 10 % [place] Platelet mean volume (Bld) [Entitic vol] 7.8 fL 7.4 - 10.4 fL [place] Platelets (Bld) [#/Vol] 162 10*3/uL 140 - 440 10*3/uL [place] RBC (Bld) [#/Vol] 3.54 10*6/uL Low 4.4 - 5.9 10*6/uL [place] WBC (Bld) [#/Vol] 10.3 10*3/uL 3.6 - 10.7 10*3/uL [place] Test Performed by [facility], [facility] [place], [place] [id number] [place] [address] Glucose,Bedsideon 05-31-2020 Glucose [Mass/Vol] 199 mg/dL High 70-100 [facility] Comment on above: Result Comment: Test performed by glucose meter. Results may be 10%-15% lower than serum/plasma values. (CLIA ID [id number]) Performed By: #### B MP3, PHOS3, HEMOG, PT/AP, MG3 #### [address] [place] [address] Glucose [Mass/Vol] 133 mg/dL High 70-[address] [place] [address] Comment on above: Result Comment: Test performed by glucose meter. Results may be 10%-15% lower than serum/plasma values. (CLIA ID [id number]) Performed By: #### B MP3, PHOS3, HEMOG, PT/AP, MG3 #### [facility] [address] [place] [address] Glucose [Mass/Vol] 213 mg/dL High 70-100 [facility] Comment on above: Result Comment: Test performed by glucose meter. Results may be 10%-15% lower than serum/plasma values. (CLIA ID [id number]) Performed By: #### B MP3, PHOS3, HEMOG, PT/AP, MG3 #### [facility] [address] [place] [address] Glucose [Mass/Vol] 129 mg/dL High 70-100 [facility] Comment on above: Result Comment: Test performed by glucose meter. Results may be 10%-15% lower than serum/plasma values. (CLIA ID [id number]) Performed By: #### B MP3, PHOS3, HEMOG, PT/AP, MG3 #### [employer] [facility] [address] [place] [address] Glucose [Mass/Vol] 129 mg/dL High 70-100 [facility] Comment on above: Result Comment: Test performed by glucose meter. Results may be 10%-15% lower than serum/plasma values. (CLIA ID [id number]) Performed By: #### B MP3, PHOS3, HEMOG, PT/AP, MG3 #### [employer] [facility] [address] [place] [address] Glucose [Mass/Vol] 144 mg/dL [place] [address] Comment on above: Result Comment: Test performed by glucose meter. Results may be 10%-15% lower than serum/plasma values. (CLIA ID [id number]) Performed By: #### B MP3, PHOS3, HEMOG, PT/AP, MG3 #### [employer] [facility] [address] [place] [address] Glucose [Mass/Vol] 139 mg/dL High [address] [place] [address] Comment on above: Result Comment: Test performed by glucose meter. Results may be 10%-15% lower than serum/plasma values. (CLIA ID [id number]) Performed By: #### B GLU #### [facility] [address] [place] [address] Glucose [Mass/Vol] 116 mg/dL [place] [address] Comment on above: Result Comment: Test performed by glucose meter. Results may be 10%-15% lower than serum/plasma values. (CLIA ID [id number]) Performed By: #### B GLU #### [employer] [facility] [address] [place] [address] Glucose [Mass/Vol] 120 mg/dL High 70-100 [facility] Comment on above: Result Comment: Test performed by glucose meter. Results may be 10%-15% lower than serum/plasma values. (CLIA ID [id number]) Performed By: #### B GLU #### [facility] [address] [place] [address] Glucose [Mass/Vol] 112 mg/dL High 70-100 [facility] Comment on above: Result Comment: Test performed by glucose meter. Results may be 10%-15% lower than serum/plasma values. (CLIA ID [id number]) Performed By: #### B MP3, PHOS3, HEMOG, PT/AP, MG3 #### [facility] [address] [place] [address] Glucose [Mass/Vol] 107 mg/dL High 70-100 [facility] Comment on above: Result Comment: Test performed by glucose meter. Results may be 10%-15% lower than serum/plasma values. (CLIA ID [id number]) Performed By: #### H EMDF #### [facility] [place] [address] [place] [address] Glucose [Mass/Vol] 112 mg/dL High 70-100 [facility] Comment on above: Result Comment: Test performed by glucose meter. Results may be 10%-15% lower than serum/plasma values. (CLIA ID [id number]) Performed By: #### B GLU #### [facility] [address] [place] [address] Glucose [Mass/Vol] 107 mg/dL High 70-100 [facility] Comment on above: Result Comment: Test performed by glucose meter. Results may be 10%-15% lower than serum/plasma values. (CLIA ID [id number]) Performed By: #### B GLU #### [facility] [address] [place] [address] Hemoglobin A1Con 05-31-2020 HbA1c (Bld) [Mass fraction] 105 mg/dL Normal [facility] Comment on above: Performed By: #### B GLU #### [facility] [address] [place] [place] [address] HbA1c (Bld) [Mass fraction] 5.3 % Normal 4.0-6.0 [place], [place] Comment on above: --HgbA1C levels may not be accurate in patients who have renal disease, received recent blood transfusions, are anemic, or who have dyshemoglobinemia. Result Comment: --Hg bA1C levels may not be accurate in patients who have renal disease, received recent blood transfusions, are anemic, or who have dyshemoglobinemia. Performed By: #### B GLU #### [address] eAG 105 mg/dL [place], [place] Test Performed by [facility], [address] [place] [id number] [place] [address] Hemogram w/ Autodiffon 05-31 Abs Baso Cnt 0.1 10*3/uL Normal 0.0-0.2 [facility] Comment on above: Performed By: #### B MP3, PHOS3, HEMOG, PT/AP, MG3 #### [address] Abs Neutrophile Cnt 6.4 10*3/uL Normal 1.8-7.0 [facility] Comment on above: Performed By: #### B MP3, PHOS3, HEMOG, PT/AP, MG3 #### [address] Basophils/100 WBC (Bld) 0.5 % Normal 0.0-2.0 [facility] Comment on above: Performed By: #### B MP3, PHOS3, HEMOG, PT/AP, MG3 #### [address] Eosinophils (Bld) [#/Vol] 0.9 10*3/uL High 0.0-0.5 [facility] Comment on above: Performed By: #### B MP3, PHOS3, HEMOG, PT/AP, MG3 #### [address] [address] [place], [place] Eosinophils/100 WBC (Bld) 8.6 % High 1.0-6.0 [facility] Comment on above: Performed By: #### B MP3, PHOS3, HEMOG, PT/AP, MG3 #### [address] [place], [place] Erythrocyte distribution width (RBC) [Ratio] 14.1 % Normal 11.5-14.5 [facility] Comment on above: Performed By: #### B MP3, PHOS3, HEMOG, PT/AP, MG3 #### [address], [place] Granulocytes/100 WBC (Bld) 62.7 % Normal 40.0-80.0 [facility] Comment on above: Performed By: #### B MP3, PHOS3, HEMOG, PT/AP, MG3 #### [address] [address] [place], [place] Hematocrit (Bld) [Volume fraction] 31.3 % Low 40.0-52.0 [facility] Comment on above: Performed By: #### B MP3, PHOS3, HEMOG, PT/AP, MG3 #### [address] [place] [place], [place] Hemoglobin (Bld) [Mass/Vol] 10.9 g/dL Low 13.0-18.0 [facility] Comment on above: Performed By: #### B MP3, PHOS3, HEMOG, PT/AP, MG3 #### [address] [address] [place], [place] Lymphocytes (Bld) [#/Vol] 1.6 10*3/uL Normal 1.0-4.3 [facility] Comment on above: Performed By: #### B MP3, PHOS3, HEMOG, PT/AP, MG3 #### [address] [address] [place], [place] Lymphocytes/100 WBC (Bld) 15.3 % Low 20.0-40.0 [facility] Comment on above: Performed By: #### B MP3, PHOS3, HEMOG, PT/AP, MG3 #### [address] [place] [address] MCH (RBC) [Entitic mass] 30.7 pg Normal 26.0-34.0 [facility] Comment on above: Performed By: #### B MP3, PHOS3, HEMOG, PT/AP, MG3 #### [address] [address] [place], [place] MCHC (RBC) [Mass/Vol] 34.7 % Normal 32.0-36.0 [facility] Comment on above: Performed By: #### B MP3, PHOS3, HEMOG, PT/AP, MG3 #### [address] [address] [place], [place] MCV (RBC) [Entitic vol] 88.5 fL Normal 80.0-98.0 [facility] Comment on above: Performed By: #### B MP3, PHOS3, HEMOG, PT/AP, MG3 #### [address] Monocytes (Bld) [#/Vol] 1.3 10*3/uL High 0.0-0.8 [facility] Comment on above: Performed By: #### B MP3, PHOS3, HEMOG, PT/AP, MG3 #### [address] Monocytes/100 WBC (Bld) 12.9 % High 2.0-10.0 [facility] Comment on above: Performed By: #### B MP3, PHOS3, HEMOG, PT/AP, MG3 #### [address] Platelet mean volume (Bld) [Entitic vol] 7.8 fL Normal 7.4-10.4 [facility] Comment on above: Performed By: #### B MP3, PHOS3, HEMOG, PT/AP, MG3 #### [address] Platelets (Bld) [#/Vol] 162 10*3/uL Normal 140-440 [facility] Comment on above: Performed By: #### B MP3, PHOS3, HEMOG, PT/AP, MG3 #### [facility] [address], [place] RBC (Bld) [#/Vol] 3.54 10*6/uL Low 4.40-5.90 [facility] Comment on above: Performed By: #### B MP3, PHOS3, HEMOG, PT/AP, MG3 #### [facility] [address], [place] WBC (Bld) [#/Vol] 10.3 10*3/uL Normal 3.6-10.7 [facility] Comment on above: Performed By: #### B MP3, PHOS3, HEMOG, PT/AP, MG3 #### [facility] [address], [place] POCT Glucoseon 05-31-2020 Glucose [Mass/Vol] 199 mg/dL High 70 - 100 mg/dL [facility] Comment on above: Test performed by gl ucose meter. Results may be 10%-15% lower than serum/plasma values. (CLIA ID [id number]) Interpretation and review of laboratory results Abnormal [facility] Test Performed by [employer] [facility], [place] [address] [employer] [facility] Glucose [Mass/Vol] 133 mg/dL High 70 - 100 mg/dL [facility] [place] Comment on above: Test performed by gl ucose meter. Results may be 10%-15% lower than serum/plasma values. (CLIA ID [id number]) Interpretation and review of laboratory results Abnormal [facility] Test Performed by [employer], [address] [place] [address] [facility] [place] Glucose [Mass/Vol] 213 mg/dL High 70 - 100 mg/dL [facility], [place] Comment on above: Test performed by gl ucose meter. Results may be 10%-15% lower than serum/plasma values. (CLIA ID [id number]) Interpretation and review of laboratory results Abnormal [facility] [place] Test Performed by [employer] [facility], [address] [place] [address] [facility] [place] Glucose [Mass/Vol] 129 mg/dL High 70 - 100 mg/dL [facility] Comment on above: Test performed by gl ucose meter. Results may be 10%-15% lower than serum/plasma values. (CLIA ID [id number]) Interpretation and review of laboratory results Abnormal [facility] Test Performed by [facility], [address] [place] [address] [facility] Glucose [Mass/Vol] 129 mg/dL High 70 - 100 mg/dL [facility] Comment on above: Test performed by gl ucose meter. Results may be 10%-15% lower than serum/plasma values. (CLIA ID [id number]) Interpretation and review of laboratory results Abnormal [facility] Test Performed by [facility], [address] [place] [address] [facility] Glucose [Mass/Vol] 144 mg/dL High 70 - 100 mg/dL [facility] Comment on above: Test performed by gl ucose meter. Results may be 10%-15% lower than serum/plasma values. (CLIA ID [id number]) Interpretation and review of laboratory results Abnormal [facility] Test Performed by [facility] [facility], [address] [place] [address] [facility] Glucose [Mass/Vol] 139 mg/dL High 70 - 100 mg/dL [facility] Comment on above: Test performed by gl ucose meter. Results may be 10%-15% lower than serum/plasma values. (CLIA ID [id number]) Interpretation and review of laboratory results Abnormal [facility] Test Performed by [facility] [facility], [address] [place] [address] [facility] Glucose [Mass/Vol] 116 mg/dL High 70 - 100 mg/dL [facility] Comment on above: Test performed by gl ucose meter. Results may be 10%-15% lower than serum/plasma values. (CLIA ID [id number]) Interpretation and review of laboratory results Abnormal [facility] Test Performed by [facility], [address] [place] [address] [facility], [place] Glucose [Mass/Vol] 120 mg/dL High 70 - 100 mg/dL [place] Comment on above: Test performed by gl ucose meter. Results may be 10%-15% lower than serum/plasma values. (CLIA ID [id number]) Interpretation and review of laboratory results Abnormal [facility] Test Performed by [facility], [address], [place] [address] [place] [address] Glucose [Mass/Vol] 112 mg/dL High 70 - 100 mg/dL [place] Comment on above: Test performed by gl ucose meter. Results may be 10%-15% lower than serum/plasma values. (CLIA ID [id number]) Interpretation and review of laboratory results Abnormal [facility] Test Performed by [facility], [facility] [address] [place], [place] [id number] [place] [address], [place] Glucose [Mass/Vol] 107 mg/dL High 70 - 100 mg/dL [place] Comment on above: Test performed by gl ucose meter. Results may be 10%-15% lower than serum/plasma values. (CLIA ID [id number]) Interpretation and review of laboratory results Abnormal [facility] Test Performed by [facility], [facility] [address] [place], [place] [address] [place] [address] Prothrombin Timeon 05-31-202 0 INR Coag (PPP) [Relative time] 1.3 High 0.9-1.1 [facility] Comment on above: Result Comment: Naeem mmended Anticoagulant Therapy: SEE BELOW ----- INR of 2.0 - 3.0 : - Prophylaxis of Venous Thrombosis (high-risk surgery) - Treatment of Venous Thrombosis - Treatment of Pulmonary Embolism (Includes tissue heart valves, Acute Myocardial Infarction to prevent systemic embolism, Valvular Heart Disease, and Atrial Fibrillation) ----- INR of 2.5 - 3.5 : - Mechanical Prosthetic Valves (high risk) - If oral anticoagulant therapy is used to prevent Myocardial Infarction Performed By: #### B MP3, PHOS3, HEMOG, PT/AP, MG3 #### [address] [place] [address] PT Coag (PPP) [Time] 13.9 s High 9.0-12.0 [facility] Comment on above: Result Comment: . Performed By: #### B MP3, PHOS3, HEMOG, PT/AP, MG3 #### [facility] [address] [place] [address] Protime-INRon 05-31-2020 INR Coag (PPP) [Relative time] 1.3 {INR} [place] Comment on above: Recommended Anticoag ulant Therapy: SEE BELOW ----- INR of 2.0 - 3.0 : - Prophylaxis of Venous Thrombosis (high-risk surgery) - Treatment of Venous Thrombosis - Treatment of Pulmonary Embolism (Includes tissue heart valves, Acute Myocardial Infarction to prevent systemic embolism, Valvular Heart Disease, and Atrial Fibrillation) ----- INR of 2.5 - 3.5 : - Mechanical Prosthetic Valves (high risk) - If oral anticoagulant therapy is used to prevent Myocardial Infarction Interpretation and review of laboratory results Abnormal [place], [place] PT Coag (PPP) [Time] 13.9 s High 9 - 12 s [place], [place] Comment on above: . Test Performed by [address] [place] [address] Sed Rateon 05-31-2020 Sed Rate 30 mm/h High 0-10 [facility] Comment on above: Performed By: #### B MP3, PHOS3, HEMOG, PT/AP, MG3 #### [address] [address] Sedimentation Rateon 020 Interpretation and review of laboratory results Abnormal [place] Sed Rate 30 mm/h High 0 - 10 mm/h [place] Test Performed by [facility], [address] [place] [id number] [place] [address] US RETROPERITONEAL LIMITEDon 05-31-2020 [facility] Incoming Radiology Results From [facility] - 05/31/2020 3:09 PM EDT Patient Name: ASCENCION WEIR ---Ultrasound--- Exam Date/Time 05/31/2020 10:03:11 EDT Exam US Retroperitoneal Limited Ordering Physician CHAN CASTRO Accession Number [id number] CPT4 Codes 71849 () Reason For Exam rule out hydronephrosis Report US RETROPERITONEAL COMPLETE CLINICAL INDICATION: Concern for hydronephrosis, diabetes TECHNIQUE: Complete ultrasound of the retroperitoneal structures COMPARISON: None FINDINGS: RIGHT KIDNEY: Size: 10.2 x 4.8 x 6.8 cm Echogenicity: normal Parenchymal thickness: normal Contour: smooth Pelvicalyceal dilatation: none Calculus: none Mass: none Cyst: none LEFT KIDNEY: Size: 11.7 x 5.4 x 5.6 cm Echogenicity: normal Parenchymal thickness: normal Contour: smooth Pelvicalyceal dilatation: none Calculus: none Mass: none Cyst: Cyst in the upper pole measuring 2.4 x 2.5 x 4.0 cm Bladder: normal IMPRESSION: No hydronephrosis. Report Dictated on --- Final --- Dictated: 05/31/2020 3:07 pm Dictating Physician: MD FRENCH KEVIN Signed Date and Time: 05/31/2020 3:08 pm Signed by: MD FRENCH KEVIN Transcribed Date and Time: 05/31/2020 3:07 [place], [place] Patient Name: ASCENCION MONTOYA ---Ultrasound--- Exam Date/Time 05/31/2020 10:03:11 EDT Exam US Retroperitoneal Limited Ordering Physician CHAN CASTRO Accession Number [id number] CPT4 Codes 22377 () Reason For Exam rule out hydronephrosis Report US RETROPERITONEAL COMPLETE CLINICAL INDICATION: Concern for hydronephrosis, diabetes TECHNIQUE: Complete ultrasound of the retroperitoneal structures COMPARISON: None FINDINGS: RIGHT KIDNEY: Size: 10.2 x 4.8 x 6.8 cm Echogenicity: normal Parenchymal thickness: normal Contour: smooth Pelvicalyceal dilatation: none Calculus: none Mass: none Cyst: none LEFT KIDNEY: Size: 11.7 x 5.4 x 5.6 cm Echogenicity: normal Parenchymal thickness: normal Contour: smooth Pelvicalyceal dilatation: none Calculus: none Mass: none Cyst: Cyst in the upper pole measuring 2.4 x 2.5 x 4.0 cm Bladder: normal IMPRESSION: No hydronephrosis. Report Dictated on --- Final --- Dictated: 05/31/2020 3:07 pm Dictating Physician: MD FRENCH KEVIN Signed Date and Time: 05/31/2020 3:08 pm Signed by: MD FRENCH KEVIN Transcribed Date and Time: 05/31/2020 3:07 [place], [place] US Retroperitoneal Limitedon 05-31-2020 US Retroperitoneal Limited Patient Name: ASCENCION WEIR Ultrasound Exam Date/Time 05/31/2020 10:03:11 EDT Exam US Retroperitoneal Limited Ordering Physician CHAN CASTRO Accession Number [id number] CPT4 Codes 49383 () Reason For Exam rule out hydronephrosis Report US RETROPERITONEAL COMPLETE CLINICAL INDICATION: Concern for hydronephrosis, diabetes TECHNIQUE: Complete ultrasound of the retroperitoneal structures COMPARISON: None FINDINGS: RIGHT KIDNEY: Size: 10.2 x 4.8 x 6.8 cm Echogenicity: normal Parenchymal thickness: normal Contour: smooth Pelvicalyceal dilatation: none Calculus: none Mass: none Cyst: none LEFT KIDNEY: Size: 11.7 x 5.4 x 5.6 cm Echogenicity: normal Parenchymal thickness: normal Contour: smooth Pelvicalyceal dilatation: none Calculus: none Mass: none Cyst: Cyst in the upper pole measuring 2.4 x 2.5 x 4.0 cm Bladder: normal IMPRESSION: No hydronephrosis. Report Dictated on Final Dictated: 05/31/2020 3:07 pm Dictating Physician: MD FRENCH KEVIN Signed Date and Time: 05/31/2020 3:08 pm Signed by: MD FRENCH KEVIN Transcribed Date and Time: 05/31/2020 3:07 Normal [facility] Vancomycin Troughon 05-31-20 20 Vancomycin Trough 17.9 ug/mL Normal 15.0-20.0 [facility] Comment on above: Result Comment: . Performed By: #### H EMDF #### [address] [id number] Vancomycin, Troughon 020 Vancomycin Tr 17.9 ug/mL 15 - 20 ug/mL [place], [place] Comment on above: . Test Performed by [facility], [address] [place] [id number] [place], [place] CBC Auto Differentialon 10-0 Absolute Baso # 0.1 10*3/uL 0 - 0.2 10*3/uL [place] Absolute Neut # 8.5 10*3/uL High 1.8 - 7 10*3/uL [place] Basophils/100 WBC (Bld) 0.7 % 0 - 2 % [place] Eosinophils (Bld) [#/Vol] 0.4 10*3/uL 0 - 0.5 10*3/uL [place] Eosinophils/100 WBC (Bld) 3.2 % 1 - 6 % [place] Erythrocyte distribution width (RBC) [Ratio] 14.1 % 11.5 - 14.5 % [place] Granulocytes/100 WBC (Bld) 77.6 % 40 - 80 % [place] Hematocrit (Bld) [Volume fraction] 34.3 % Low 40 - 52 % [place] Hemoglobin (Bld) [Mass/Vol] 11.6 g/dL Low 13 - 18 g/dL [place] Interpretation and review of laboratory results Abnormal [place] Lymphocytes (Bld) [#/Vol] 0.8 10*3/uL Low 1 - 4.3 10*3/uL [place] Lymphocytes/100 WBC (Bld) 7.4 % Low 20 - 40 % [place] MCH (RBC) [Entitic mass] 30.3 pg 26 - 34 pg [place] MCHC (RBC) [Mass/Vol] 34.0 % 32 - 36 % [place], [place] MCV (RBC) [Entitic vol] 89.3 fL 80 - 98 fL [place] Monocytes (Bld) [#/Vol] 1.2 10*3/uL High 0 - 0.8 10*3/uL [place] Monocytes/100 WBC (Bld) 11.1 % High 2 - 10 % [place] Platelet mean volume (Bld) [Entitic vol] 7.7 fL 7.4 - 10.4 fL [place] Platelets (Bld) [#/Vol] 165 10*3/uL 140 - 440 10*3/uL [place] RBC (Bld) [#/Vol] 3.84 10*6/uL Low 4.4 - 5.9 10*6/uL [place] WBC (Bld) [#/Vol] 10.9 10*3/uL High 3.6 - 10.7 10*3/uL [place] Test Performed by [address] [address] [place], [place] Comp Metabolic Panelon 05-30 ALP [Catalytic activity/Vol] 132 U/L High 38-126 [facility] Comment on above: Performed By: #### B GLU #### [address] [address] [place], [place] ALT [Catalytic activity/Vol] 17 U/L Normal 0-49 [facility] Comment on above: Result Comment: The ALT test is performed by an updated assay method. Please note that the reference intervals have been changed and are now sex specific. Performed By: #### B GLU #### [address] [address] [place], [place] AST [Catalytic activity/Vol] 26 U/L Normal 15-46 [facility] Comment on above: Performed By: #### B GLU #### [address] [address] [place], [place] Bilirubin [Mass/Vol] 0.6 mg/dL Normal 0.2-1.3 [facility] Comment on above: Performed By: #### B GLU #### [address] Calcium [Mass/Vol] 8.8 mg/dL Normal 8.4-10.4 [facility] Comment on above: Performed By: #### B GLU #### [address] [place], [place] Glucose [Mass/Vol] 232 mg/dL High 70-100 [facility] Comment on above: Performed By: #### B GLU #### [facility] [address] [place], [place] Protein [Mass/Vol] 7.2 g/dL Normal 6.3-8.2 [facility] Comment on above: Performed By: #### B GLU #### [facility] [address] [place], [place] Urea nitrogen [Mass/Vol] 19 mg/dL Normal 7-20 [facility] Comment on above: Performed By: #### B GLU #### [address] [address] [address] [place], [place] Anion gap [Moles/Vol] 13 Normal [facility] Comment on above: Performed By: #### B GLU #### [address] [address] [address] [place], [place] CO2 [Moles/Vol] 25 mmol/L Normal 22-30 [facility] Comment on above: Performed By: #### B GLU #### [address] [address] [address] [place], [place] Creatinine [Mass/Vol] 1.00 mg/dL Normal 0.52-1.25 [facility] Comment on above: Performed By: #### B GLU #### [facility] [address] [place], [place] GFR/1.73 sq M predicted among blacks MDRD (S/P/Bld) [Vol rate/Area] 86.9 mL/min/{1.73_m2} Normal >60 [facility] Comment on above: Performed By: #### B GLU #### [facility] [address] [place], [place] GFR/1.73 sq M predicted among non-blacks MDRD (S/P/Bld) [Vol rate/Area] 75.0 mL/min/{1.73_m2} Normal >60 [facility] Comment on above: Result Comment: KDIG O guidelines provide the following GFR categories: Stage GFR(ml/min/1.73 m2) Terms G1 >=90 Normal or high G2 60-89 Mildly decreased* G3a 45-59 Mildly to moderately decreased G3b 30-44 Moderately to severely decreased G4 15-29 Severely decreased G5 <15 Kidney failure *Relative to young adult level. In the absence of evidence of kidney damage, neither GFR category G1 nor G2 fulfill the criteria for CKD. The CKD-EPI equation is validated in individuals 18 years of age and older. Currently the best equation for estimating glomerular filtration rate (GFR) from serum creatinine in children is the Bedside Garza equation. It is less accurate in patients with extremes of muscle mass, restriction of dietary protein, ingestion of creatine, extra-renal metabolism of creatinine, or treatment with medications that affect renal tubular creatinine secretion. Performed By: #### B GLU #### [address] [address] [place], [place] Potassium [Moles/Vol] 4.6 mmol/L Normal 3.5-5.1 [facility] Comment on above: Performed By: #### B GLU #### [address] Sodium [Moles/Vol] 137 mmol/L Normal 135-145 [facility] Comment on above: Performed By: #### B GLU #### [address] [address] [place], [place] Albumin [Mass/Vol] 4.0 g/dL Normal 3.5-5.0 [facility] Comment on above: Performed By: #### B GLU #### [address] [address] [place], [place] Chloride [Moles/Vol] 99 mmol/L Normal 98-107 [facility] Comment on above: Performed By: #### B GLU #### [address] Comprehensive Metabolic Pane servando 05-30-2020 Albumin [Mass/Vol] 4.0 g/dL 3.5 - 5 g/dL [place] ALP [Catalytic activity/Vol] 132 U/L High 38 - 126 U/L [place] ALT [Catalytic activity/Vol] 17 U/L 0 - 49 U/L [place] Comment on above: The ALT test is perf ormed by an updated assay method. Please note that the reference intervals have been changed and are now sex specific. Anion gap [Moles/Vol] 13 mmol/L [place], [place] AST [Catalytic activity/Vol] 26 U/L 15 - 46 U/L [place] Bilirubin Ql (U) 0.6 mg/dL 0.2 - 1.3 mg/dL [place] Calcium [Mass/Vol] 8.8 mg/dL 8.4 - 10. 4 mg/dL [place] Chloride [Moles/Vol] 99 mmol/L 98 - 10 7 mmol/L [place] CO2 [Moles/Vol] 25 mmol/L 22 - 30 mmol/L [place] Creatinine [Mass/Vol] 1 mg/dL 0.52 - 1.25 mg/dL [place] EGFR IF NonAfrican Thai 75.0 mL/min >60 [place] Comment on above: KDIGO guidelines pro vide the following GFR categories: Stage GFR(ml/min/1.73 m2) Terms G1 >=90 Normal or high G2 60-89 Mildly decreased* G3a 45-59 Mildly to moderately decreased G3b 30-44 Moderately to severely decreased G4 15-29 Severely decreased G5 <15 Kidney failure *Relative to young adult level. In the absence of evidence of kidney damage, neither GFR category G1 nor G2 fulfill the criteria for CKD. The CKD-EPI equation is validated in individuals 18 years of age and older. Currently the best equation for estimating glomerular filtration rate (GFR) from serum creatinine in children is the Bedside Garza equation. It is less accurate in patients with extremes of muscle mass, restriction of dietary protein, ingestion of creatine, extra-renal metabolism of creatinine, or treatment with medications that affect renal tubular creatinine secretion. GFR/1.73 sq M predicted among blacks MDRD (S/P/Bld) [Vol rate/Area] 86.9 mL/min/{1.73_m2} >60 [place] Glucose [Mass/Vol] 232 mg/dL High 70 - 100 mg/dL [place] Potassium [Moles/Vol] 4.6 mmol/L 3.5 - 5.1 mmol/L [place] Protein [Mass/Vol] 7.2 g/dL 6.3 - 8.2 g/dL [place] Sodium [Moles/Vol] 137 mmol/L 135 - 145 mmol/L [place] Urea nitrogen [Mass/Vol] 19 mg/dL 7 - 20 mg/dL [place] ECHO Complete 2D W Doppler W Coloron 05-30-2020 [facility] Cardiology Results From [facility] - 05/30/2020 4:06 PM EDT TRANSTHORACIC ECHOCARDIOGRAM PATIENT: Carmella, STUDY DATE: 05/30/2020 Ascencion Aponte : 1950 AGE: 69 HT/WT: 172.7 cm (68 98.4 kg (216.5 in) lb) GENDER: M BP: 122 / 63 LOCATION: [facility] PATIENT Inpatient main STATUS: *ORDERING PHYSICIAN: * Gabe Savage *READING PHYSICIAN: * Odalys Bell *MANAGER CUSTOMER: * Aretha Jiang INDICATIONS: Abscess sternal. CONCLUSIONS SUMMARY: 1. Left ventricle: The cavity size is normal. Wall thickness is normal. Systolic function is normal by visual assessment. The estimated ejection fraction is 60%. 2. Aortic valve: A [address] Jasper trifecta bioprosthesis valve is well seated and normally functioning. The peak systolic velocity is 2.1 m/sec. The mean systolic gradient is 10 mm Hg. Dimensionless index: 0.6. The valve area by the velocity-time integral method is 2.4 cm^2. 3. Pericardium, extracardiac: A medium pericardial effusion (max dimension at the anterolateral wall ~1.5 cm) is present along the left ventricular free wall and at the apex. The fluid has no internal echoes. There is no evidence of hemodynamic compromise. 4. Inferior vena cava: The vessel is normal. The IVC collapses by greater than 50% with inspiration. STUDY DATA: Complete transthoracic echocardiogram. Procedure: Image quality was suboptimal. The study was technically limited due to poor acoustic window availability and body habitus. Intravenous imaging enhancement (Definity) was administered to opacify the chamber. Definity lot #: [id number]. M-mode, complete 2D, complete spectral Doppler, and color flow Doppler images were acquired and archived for permanent storage and are available for subsequent review. Study status: Routine. Patient status: Inpatient. ECG RHYTHM: NSR FINDINGS LEFT VENTRICLE: Not well visualized. The cavity size is normal. Wall thickness is normal. Systolic function is normal by visual assessment. The estimated ejection fraction is 60%. There are no regional wall motion abnormalities. RIGHT VENTRICLE: Not well visualized. The cavity size is mildly dilated. Systolic function is low normal. LEFT ATRIUM: Poorly visualized. The atrium is normal in size. RIGHT ATRIUM: Poorly visualized. The atrium is normal in size. ATRIAL SEPTUM: Not well visualized. Color Doppler shows no shunt. MITRAL VALVE: Not well visualized. Normal-sized annulus. Doppler: There is no significant regurgitation. AORTIC VALVE: A [address] Jasper trifecta bioprosthesis valve is well seated and normally functioning. Normal-sized annulus. Doppler: Transvalvular velocity is within the normal range. There is no stenosis. There is no regurgitation. Dimensionless index: 0.6. The valve area by the velocity-time integral method is 2.4 cm^2. The valve area index by the velocity-time integral method is 1.1 cm^2/m^2. The mean systolic gradient is 10 mm Hg. The peak systolic gradient is 17 mm Hg. The peak systolic velocity is 2.1 m/sec. TRICUSPID VALVE: Not well visualized. Structurally normal valve. Leaflet separation is normal. Doppler: Transvalvular velocity is within the normal range. There is no evidence for stenosis. There is trivial, less than 1+ regurgitation. PULMONIC VALVE: Not well visualized. Structurally normal valve. Cusp separation is normal. Doppler: Transvalvular velocity is within the normal range. There is trivial, less than 1+ regurgitation. AORTA: The aorta is poorly visualized and normal. PERICARDIUM: A medium pericardial effusion (max dimension at the anterolateral wall ~1.5 cm) is present along the left ventricular free wall and at the apex. The fluid has no internal echoes. There is no evidence of hemodynamic compromise. SYSTEMIC VEINS: Inferior vena cava: The vessel is normal. The IVC collapses by greater than 50% with inspiration. Measurements Value 05/08/2020 Reference Ascending aorta ID, A-P, S 3.2 cm Ascending aorta ID/bsa, A-P, 1.5 cm/m^2 S Left ventricle Value 05/08/2020 Reference LV ejection fraction, 2-p 60 % 52 - 72 LV E/e', lateral 9.3 LV E/e', medial 12.5 LV E/e', average 10.7 LVOT Value 05/08/2020 Reference LVOT ID, A-P 2.3 cm 2.3 LVOT mean velocity, S 0.7 m/sec 0.7 LVOT peak gradient, S 4 mm Hg 4 Stroke volume (SV), LVOT DP 86 ml 84 Stroke index (SV/bsa), LVOT 39 ml/m^2 38 DP Aortic valve Value 05/08/2020 Reference Aortic valve peak velocity, S 2.1 m/sec 2 Aortic valve mean velocity, S 1.5 m/sec 1.2 Aortic mean gradient, S 10 mm Hg Aortic peak gradient, S 17 mm Hg DI 0.6 0.7 Aortic valve area, VTI 2.4 cm^2 Aortic valve area/bsa, VTI 1.1 cm^2/m^2 Left atrium Value 05/08/2020 Reference LA volume/bsa, ES, 2-p 33 ml/m^2 16 - 34 Mitral valve Value 05/08/2020 Reference Mitral E-wave peak velocity 0.6 m/sec Mitral A-wave peak velocity 1.1 m/sec Mitral deceleration time 194 ms Mitral E/A ratio, peak 0.6 Right atrium Value 05/08/2020 Reference RA area, ES, A4C (L) 9 cm^2 Right ventricle Value 05/08/2020 Reference RV ID, minor axis, ED, A4C (H) 4.5 cm 2.5 - 4.1 base RV ID, minor axis, ED, A4C 3.2 cm 1.9 - 3.5 mid RV s', lateral (L) 3.8 cm/sec 6.0 - 13.4 Legend: (L) and (H) adrian values outside specified reference range. Electronically signed by Odalys Bell 05/30/2020 16:05 Prior Signatures: [facility], [facility] [place] TRANSTHORACIC ECHOCARDIOGRAM PATIENT: Carmella, STUDY DATE: 05/30/2020 Ascencion Aponte : 1950 AGE: 69 HT/WT: 172.7 cm (68 98.4 kg (216.5 in) lb) GENDER: M BP: 122 / 63 LOCATION: [facility] PATIENT Inpatient main STATUS: *ORDERING PHYSICIAN: * Gabe Savage *READING PHYSICIAN: * Odalys Bell *MANAGER CUSTOMER: * Aretha Jiang INDICATIONS: Abscess sternal. CONCLUSIONS SUMMARY: 1. Left ventricle: The cavity size is normal. Wall thickness is normal. Systolic function is normal by visual assessment. The estimated ejection fraction is 60%. 2. Aortic valve: A [address] Jasper trifecta bioprosthesis valve is well seated and normally functioning. The peak systolic velocity is 2.1 m/sec. The mean systolic gradient is 10 mm Hg. Dimensionless index: 0.6. The valve area by the velocity-time integral method is 2.4 cm^2. 3. Pericardium, extracardiac: A medium pericardial effusion (max dimension at the anterolateral wall ~1.5 cm) is present along the left ventricular free wall and at the apex. The fluid has no internal echoes. There is no evidence of hemodynamic compromise. 4. Inferior vena cava: The vessel is normal. The IVC collapses by greater than 50% with inspiration. STUDY DATA: Complete transthoracic echocardiogram. Procedure: Image quality was suboptimal. The study was technically limited due to poor acoustic window availability and body habitus. Intravenous imaging enhancement (Definity) was administered to opacify the chamber. Definity lot #: [id number]. M-mode, complete 2D, complete spectral Doppler, and color flow Doppler images were acquired and archived for permanent storage and are available for subsequent review. Study status: Routine. Patient status: Inpatient. ECG RHYTHM: NSR FINDINGS LEFT VENTRICLE: Not well visualized. The cavity size is normal. Wall thickness is normal. Systolic function is normal by visual assessment. The estimated ejection fraction is 60%. There are no regional wall motion abnormalities. RIGHT VENTRICLE: Not well visualized. The cavity size is mildly dilated. Systolic function is low normal. LEFT ATRIUM: Poorly visualized. The atrium is normal in size. RIGHT ATRIUM: Poorly visualized. The atrium is normal in size. ATRIAL SEPTUM: Not well visualized. Color Doppler shows no shunt. MITRAL VALVE: Not well visualized. Normal-sized annulus. Doppler: There is no significant regurgitation. AORTIC VALVE: A [address] Jasper trifecta bioprosthesis valve is well seated and normally functioning. Normal-sized annulus. Doppler: Transvalvular velocity is within the normal range. There is no stenosis. There is no regurgitation. Dimensionless index: 0.6. The valve area by the velocity-time integral method is 2.4 cm^2. The valve area index by the velocity-time integral method is 1.1 cm^2/m^2. The mean systolic gradient is 10 mm Hg. The peak systolic gradient is 17 mm Hg. The peak systolic velocity is 2.1 m/sec. TRICUSPID VALVE: Not well visualized. Structurally normal valve. Leaflet separation is normal. Doppler: Transvalvular velocity is within the normal range. There is no evidence for stenosis. There is trivial, less than 1+ regurgitation. PULMONIC VALVE: Not well visualized. Structurally normal valve. Cusp separation is normal. Doppler: Transvalvular velocity is within the normal range. There is trivial, less than 1+ regurgitation. AORTA: The aorta is poorly visualized and normal. PERICARDIUM: A medium pericardial effusion (max dimension at the anterolateral wall ~1.5 cm) is present along the left ventricular free wall and at the apex. The fluid has no internal echoes. There is no evidence of hemodynamic compromise. SYSTEMIC VEINS: Inferior vena cava: The vessel is normal. The IVC collapses by greater than 50% with inspiration. Measurements Value 05/08/2020 Reference Ascending aorta ID, A-P, S 3.2 cm Ascending aorta ID/bsa, A-P, 1.5 cm/m^2 S Left ventricle Value 05/08/2020 Reference LV ejection fraction, 2-p 60 % 52 - 72 LV E/e', lateral 9.3 LV E/e', medial 12.5 LV E/e', average 10.7 LVOT Value 05/08/2020 Reference LVOT ID, A-P 2.3 cm 2.3 LVOT mean velocity, S 0.7 m/sec 0.7 LVOT peak gradient, S 4 mm Hg 4 Stroke volume (SV), LVOT DP 86 ml 84 Stroke index (SV/bsa), LVOT 39 ml/m^2 38 DP Aortic valve Value 05/08/2020 Reference Aortic valve peak velocity, S 2.1 m/sec 2 Aortic valve mean velocity, S 1.5 m/sec 1.2 Aortic mean gradient, S 10 mm Hg Aortic peak gradient, S 17 mm Hg DI 0.6 0.7 Aortic valve area, VTI 2.4 cm^2 Aortic valve area/bsa, VTI 1.1 cm^2/m^2 Left atrium Value 05/08/2020 Reference LA volume/bsa, ES, 2-p 33 ml/m^2 16 - 34 Mitral valve Value 05/08/2020 Reference Mitral E-wave peak velocity 0.6 m/sec Mitral A-wave peak velocity 1.1 m/sec Mitral deceleration time 194 ms Mitral E/A ratio, peak 0.6 Right atrium Value 05/08/2020 Reference RA area, ES, A4C (L) 9 cm^2 Right ventricle Value 05/08/2020 Reference RV ID, minor axis, ED, A4C (H) 4.5 cm 2.5 - 4.1 base RV ID, minor axis, ED, A4C 3.2 cm 1.9 - 3.5 mid RV s', lateral (L) 3.8 cm/sec 6.0 - 13.4 Legend: (L) and (H) adrian values outside specified reference range. Electronically signed by Odalys Bell 05/30/2020 16:05 Prior Signatures: [place], [place] Echo Complete w/wo Contrasto n 05-30-2020 Echo Complete w/wo Contrast Patient Name: ASCENCION WEIR Ultrasound Exam Date/Time 05/30/2020 15:15:46 EDT Exam Echo Complete w/wo Contrast Ordering Physician NINA SAVAGE MATTHEW R. Accession Number [id number] Reason For Exam Abscess Sternal Report TRANSTHORACIC ECHOCARDIOGRAM PATIENT: Carmella, STUDY DATE: 05/30/2020 Ascencion Aponte : 1950 AGE: 69 HT/WT: 172.7 cm (68 98.4 kg (216.5 in) lb) GENDER: M BP: 122 / 63 LOCATION: [facility] PATIENT Inpatient main STATUS: *ORDERING PHYSICIAN: * Gabe Savage *READING PHYSICIAN: * Odalys Bell *MANAGER CUSTOMER: * Tokar, Aretha INDICATIONS: Abscess sternal. CONCLUSIONS SUMMARY: 1. Left ventricle: The cavity size is normal. Wall thickness is normal. Systolic function is normal by visual assessment. The estimated ejection fraction is 60%. 2. Aortic valve: A [address] Jasper trifecta bioprosthesis valve is well seated and normally functioning. The peak systolic velocity is 2.1 m/sec. The mean systolic gradient is 10 mm Hg. Dimensionless index: 0.6. The valve area by the velocity-time integral method is 2.4 cm^2. 3. Pericardium, extracardiac: A medium pericardial effusion (max dimension at the anterolateral wall ~1.5 cm) is present along the left ventricular free wall and at the apex. The fluid has no internal echoes. There is no evidence of hemodynamic compromise. 4. Inferior vena cava: The vessel is normal. The IVC collapses by greater than 50% with inspiration. STUDY DATA: Complete transthoracic echocardiogram. Procedure: Image quality was suboptimal. The study was technically limited due to poor acoustic window availability and body habitus. Intravenous imaging enhancement (Definity) was administered to opacify the chamber. Definity lot #: [id number]. M-mode, complete 2D, complete spectral Doppler, and color flow Doppler images were acquired and archived for permanent storage and are available for subsequent review. Study status: Routine. Patient status: Inpatient. ECG RHYTHM: NSR FINDINGS LEFT VENTRICLE: Not well visualized. The cavity size is normal. Wall thickness is normal. Systolic function is normal by visual assessment. The estimated ejection fraction is 60%. There are no regional wall motion abnormalities. RIGHT VENTRICLE: Not well visualized. The cavity size is mildly dilated. Systolic function is low normal. LEFT ATRIUM: Poorly visualized. The atrium is normal in size. RIGHT ATRIUM: Poorly visualized. The atrium is normal in size. ATRIAL SEPTUM: Not well visualized. Color Doppler shows no shunt. MITRAL VALVE: Not well visualized. Normal-sized annulus. Doppler: There is no significant regurgitation. AORTIC VALVE: A [address] [place] trifecta bioprosthesis valve is well seated and normally functioning. Normal-sized annulus. Doppler: Transvalvular velocity is within the normal range. There is no stenosis. There is no regurgitation. Dimensionless index: 0.6. The valve area by the velocity-time integral method is 2.4 cm^2. The valve area index by the velocity-time integral method is 1.1 cm^2/m^2. The mean systolic gradient is 10 mm Hg. The peak systolic gradient is 17 mm Hg. The peak systolic velocity is 2.1 m/sec. TRICUSPID VALVE: Not well visualized. Structurally normal valve. Leaflet separation is normal. Doppler: Transvalvular velocity is within the normal range. There is no evidence for stenosis. There is trivial, less than 1+ regurgitation. PULMONIC VALVE: Not well visualized. Structurally normal valve. Cusp separation is normal. Doppler: Transvalvular velocity is within the normal range. There is trivial, less than 1+ regurgitation. AORTA: The aorta is poorly visualized and normal. PERICARDIUM: A medium pericardial effusion (max dimension at the anterolateral wall ~1.5 cm) is present along the left ventricular free wall and at the apex. The fluid has no internal echoes. There is no evidence of hemodynamic compromise. SYSTEMIC VEINS: Inferior vena cava: The vessel is normal. The IVC collapses by greater than 50% with inspiration. Measurements Value 05/08/2020 Reference Ascending aorta ID, A-P, S 3.2 cm Ascending aorta ID/bsa, A-P, 1.5 cm/m^2 S Left ventricle Value 05/08/2020 Reference LV ejection fraction, 2-p 60 % 52 - 72 LV E/e', lateral 9.3 LV E/e', medial 12.5 LV E/e', average 10.7 LVOT Value 05/08/2020 Reference LVOT ID, A-P 2.3 cm 2.3 LVOT mean velocity, S 0.7 m/sec 0.7 LVOT peak gradient, S 4 mm Hg 4 Stroke volume (SV), LVOT DP 86 ml 84 Stroke index (SV/bsa), LVOT 39 ml/m^2 38 DP Aortic valve Value 05/08/2020 Reference Aortic valve peak velocity, S 2.1 m/sec 2 Aortic valve mean velocity, S 1.5 m/sec 1.2 Aortic mean gradient, S 10 mm Hg Aortic peak gradient, S 17 mm Hg DI 0.6 0.7 Aortic valve area, VTI 2.4 cm^2 Aortic valve area/bsa, VTI 1.1 cm^2/m^2 Left atrium Value 05/08/2020 Reference LA volume/bsa, ES, 2-p 33 ml/m^2 Mitral valve Value 05/08/2020 Reference Mitral E-wave peak velocity 0.6 m/sec Mitral A-wave peak velocity 1.1 m/sec Mitral deceleration time 194 ms Mitral E/A ratio, peak 0.6 Right atrium Value 05/08/2020 Reference RA area, ES, A4C (L) 9 cm^2 18 Right ventricle Value 05/08/2020 Reference RV ID, minor axis, ED, A4C (H) 4.5 cm 2.5 - 4.1 base RV ID, minor axis, ED, A4C 3.2 cm 1.9 - 3.5 mid RV s', lateral (L) 3.8 cm/sec 6.0 - 13.4 Legend: (L) and (H) adrian values outside specified reference range. Electronically signed by Odalys Bell 05/30/2020 16:05 Prior Signatures: Final Dictated: 05/30/2020 4:06 pm Dictating Physician: MD BELL WISSAM Signed Date and Time: 05/30/2020 4:06 pm Signed by: MD BELL WISSAM Normal [facility] Glucose,Bedsideon 05-30-2020 Glucose [Mass/Vol] 109 mg/dL High 70-100 [facility] Comment on above: Result Comment: Test performed by glucose meter. Results may be 10%-15% lower than serum/plasma values. (CLIA ID [id number]) Performed By: #### B GLU #### [facility] [address] [place] [address] Glucose [Mass/Vol] 80 mg/dL Normal 70-100 [facility] Comment on above: Result Comment: Test performed by glucose meter. Results may be 10%-15% lower than serum/plasma values. (CLIA ID [id number]) Performed By: #### B MP3, PHOS3, HEMOG, PT/AP, MG3 #### [facility] [address] [place] [address] Glucose [Mass/Vol] 84 mg/dL Normal 70-100 [facility] Comment on above: Result Comment: Test performed by glucose meter. Results may be 10%-15% lower than serum/plasma values. (CLIA ID [id number]) Performed By: #### B MP3, PHOS3, HEMOG, PT/AP, MG3 #### [facility] [address] [place] [address] Glucose [Mass/Vol] 61 mg/dL Low 70-100 [facility] Comment on above: Result Comment: Test performed by glucose meter. Results may be 10%-15% lower than serum/plasma values. (CLIA ID [id number]) Performed By: #### B GLU #### [facility] [address] [place] [address] Glucose [Mass/Vol] 191 mg/dL High 70-100 [facility] Comment on above: Test performed by gl ucose meter. Results may be 10%-15% lower than serum/plasma values. (CLIA ID [id number]) Result Comment: Test performed by glucose meter. Results may be 10%-15% lower than serum/plasma values. (CLIA ID [id number]) Performed By: #### B MP3, PHOS3, HEMOG, PT/AP, MG3 #### [facility] [address] [place] [address] Glucose [Mass/Vol] 354 mg/dL High [address] Comment on above: Result Comment: Test performed by glucose meter. Results may be 10%-15% lower than serum/plasma values. (CLIA ID [id number]) Performed By: #### H EMDF #### [place] [place] [address] Glucose [Mass/Vol] 350 mg/dL High [address] Comment on above: Result Comment: Test performed by glucose meter. Results may be 10%-15% lower than serum/plasma values. (CLIA ID [id number]) Performed By: #### B MP3, PHOS3, HEMOG, PT/AP, MG3 #### [facility] [place] [address] [place] [address] Glucose [Mass/Vol] 146 mg/dL High [address] Comment on above: Result Comment: Test performed by glucose meter. Results may be 10%-15% lower than serum/plasma values. (CLIA ID [id number]) Performed By: #### B GLU #### [address] [place], [place] Glucose [Mass/Vol] 125 mg/dL High [address] Comment on above: Result Comment: Test performed by glucose meter. Results may be 10%-15% lower than serum/plasma values. (CLIA ID [id number]) Performed By: #### B MP3, PHOS3, HEMOG, PT/AP, MG3 #### [facility] [address] [place] [address] Glucose [Mass/Vol] 210 mg/dL High [address] Comment on above: Result Comment: Test performed by glucose meter. Results may be 10%-15% lower than serum/plasma values. (CLIA ID [id number]) Performed By: #### H EMDF #### [facility] [place] [place], [place] Hemogram w/ Autodiffon 05-30 Abs Baso Cnt 0.1 10*3/uL Normal 0.0-0.2 [facility] Comment on above: Performed By: #### B GLU #### [address] [place], [place] Abs Neutrophile Cnt 8.5 10*3/uL High 1.8-7.0 [facility] Comment on above: Performed By: #### B GLU #### [address] [place], [place] Basophils/100 WBC (Bld) 0.7 % Normal 0.0-2.0 [facility] Comment on above: Performed By: #### B GLU #### [address] [place], [place] Eosinophils (Bld) [#/Vol] 0.4 10*3/uL Normal 0.0-0.5 [facility] Comment on above: Performed By: #### B GLU #### [address] [place], [place] Eosinophils/100 WBC (Bld) 3.2 % Normal 1.0-6.0 [facility] Comment on above: Performed By: #### B GLU #### [address] [place], [place] Erythrocyte distribution width (RBC) [Ratio] 14.1 % Normal 11.5-14.5 [facility] Comment on above: Performed By: #### B GLU #### [address] [place], [place] Granulocytes/100 WBC (Bld) 77.6 % Normal 40.0-80.0 [facility] Comment on above: Performed By: #### B GLU #### [address] Hematocrit (Bld) [Volume fraction] 34.3 % Low 40.0-52.0 [facility] Comment on above: Performed By: #### B GLU #### [address] [place], [place] Hemoglobin (Bld) [Mass/Vol] 11.6 g/dL Low 13.0-18.0 [facility] Comment on above: Performed By: #### B GLU #### [facility] [address] [place], [place] Lymphocytes (Bld) [#/Vol] 0.8 10*3/uL Low 1.0-4.3 [facility] Comment on above: Performed By: #### B GLU #### [facility] [address] [place], [place] Lymphocytes/100 WBC (Bld) 7.4 % Low 20.0-40.0 [facility] Comment on above: Performed By: #### B GLU #### [address] [place], [place] MCH (RBC) [Entitic mass] 30.3 pg Normal 26.0-34.0 [facility] Comment on above: Performed By: #### B GLU #### [address] [place], [place] MCHC (RBC) [Mass/Vol] 34.0 % Normal 32.0-36.0 [facility] Comment on above: Performed By: #### B GLU #### [address] [place], [place] MCV (RBC) [Entitic vol] 89.3 fL Normal 80.0-98.0 [facility] Comment on above: Performed By: #### B GLU #### [address] [place], [place] Monocytes (Bld) [#/Vol] 1.2 10*3/uL High 0.0-0.8 [facility] Comment on above: Performed By: #### B GLU #### [address] [place], [place] Monocytes/100 WBC (Bld) 11.1 % High 2.0-10.0 [facility] Comment on above: Performed By: #### B GLU #### [address] [place], [place] Platelet mean volume (Bld) [Entitic vol] 7.7 fL Normal 7.4-10.4 [facility] Comment on above: Performed By: #### B GLU #### [address] [place], [place] Platelets (Bld) [#/Vol] 165 10*3/uL Normal 140-440 [facility] Comment on above: Performed By: #### B GLU #### [address] [place], [place] RBC (Bld) [#/Vol] 3.84 10*6/uL Low 4.40-5.90 [facility] Comment on above: Performed By: #### B GLU #### [address] [place], [place] WBC (Bld) [#/Vol] 10.9 10*3/uL High 3.6-10.7 [facility] Comment on above: Performed By: #### B GLU #### [address] [place], [place] Hepatic Functionon 0 Bilirubin.direct [Mass/Vol] 0.0 mg/dL Normal 0.0-0.3 [facility] Comment on above: Performed By: #### Sandie G3, BMP3 #### [address] [place], [place] Hepatic Function Panelon Bilirubin.direct [Mass/Vol] 0.0 mg/dL 0 - 0.3 mg/dL [place], [place] Lipid Panelon 05-30-2020 Cholesterol in HDL [Mass/Vol] 28 mg/dL Low 40-60 [facility] Comment on above: Performed By: #### M G3, BMP3 #### [address] [place], [place] Cholesterol.total/Chol esterol in HDL [Mass ratio] 3 Normal [facility] Comment on above: Result Comment: Ref Range: < 3 Low Risk for CHD 3-6 Mod Risk for CHD > 6 High Risk for CHD Performed By: #### Sandie G3, BMP3 #### [address] [place], [place] Protein [Mass/Vol] 43 mg/dL Normal <100 [facility] Comment on above: Performed By: #### M G3, BMP3 #### [facility] [address] [place] [address] Triglyceride [Mass/Vol] 56 mg/dL Normal <150 [facility] Comment on above: Performed By: #### M G3, BMP3 #### [facility] [address] [place] [address] Cholesterol [Mass/Vol] 82 mg/dL Normal < 200 [facility] Comment on above: Performed By: #### Sandie G3, BMP3 #### [facility] [address] [place] [address] Cholesterol [Mass/Vol] 82 mg/dL <200 [facility], [place] Cholesterol in HDL [Mass/Vol] 28 mg/dL Low 40 - 60 mg/dL [facility], [place] Cholesterol in LDL [Mass/Vol] 43 mg/dL <100 [facility] Cholesterol.total/Chol esterol in HDL [Mass ratio] 3 {ratio} [facility] Comment on above: Ref Range: < 3 Low Risk for CHD 3-6 Mod Risk for CHD > 6 High Risk for CHD Triglyceride [Mass/Vol] 56 mg/dL <150 [facility], [place] Magnesiumon 05-30-2020 Magnesium [Mass/Vol] 1.2 mg/dL Low 1.6-2.3 [facility] Comment on above: Performed By: #### Sandie G3, BMP3 #### [facility] [address] [place] [address] Magnesium [Mass/Vol] 1.2 mg/dL Low 1.6 - 2 .3 mg/dL [facility], [place] Otheron 05-30-2020 Interpretation and review of laboratory results Abnormal [facility] [place] Test Performed by [facility], [place] [address] [facility] [place] Interpretation and review of laboratory results Abnormal [facility] [place] Test Performed by [facility], [place] [address] [facility], [place] Interpretation and review of laboratory results Abnormal [facility] [place] Test Performed by [facility], [address] [place] [address] [facility] [place] POCT Glucoseon 05-30-2020 Glucose [Mass/Vol] 112 mg/dL High 70 - 100 mg/dL [facility] [place] Comment on above: Test performed by gl ucose meter. Results may be 10%-15% lower than serum/plasma values. (CLIA ID [id number]) Interpretation and review of laboratory results Abnormal [facility] [place] Test Performed by [facility], [address] [place] [address] [facility] [place] Glucose [Mass/Vol] 107 mg/dL High 70 - 100 mg/dL [facility], [place] Comment on above: Test performed by gl ucose meter. Results may be 10%-15% lower than serum/plasma values. (CLIA ID [id number]) Interpretation and review of laboratory results Abnormal [facility] [place] Test Performed by [facility], [address] [place] [address] [facility], [place] Glucose [Mass/Vol] 109 mg/dL High 70 - 100 mg/dL [facility], [place] Comment on above: Test performed by gl ucose meter. Results may be 10%-15% lower than serum/plasma values. (CLIA ID [id number]) Interpretation and review of laboratory results Abnormal [facility] [place] Test Performed by [facility], [address] [place] [address] [facility], [place] Glucose [Mass/Vol] 80 mg/dL 70 - 100 mg/dL [facility], [place] Comment on above: Test performed by gl ucose meter. Results may be 10%-15% lower than serum/plasma values. (CLIA ID [id number]) Test Performed by [facility], [address] [place] [address] [facility], [place] Glucose [Mass/Vol] 84 mg/dL 70 - 100 mg/dL [facility], [place] Comment on above: Test performed by gl ucose meter. Results may be 10%-15% lower than serum/plasma values. (CLIA ID [id number]) Test Performed by [facility], [address] [place] [address] [place], [place] Glucose [Mass/Vol] 61 mg/dL Low 70 - 100 mg/dL [place], [place] Comment on above: Test performed by gl ucose meter. Results may be 10%-15% lower than serum/plasma values. (CLIA ID [id number]) Glucose [Mass/Vol] 354 mg/dL High 70 - 100 mg/dL [place], [place] Comment on above: Test performed by gl ucose meter. Results may be 10%-15% lower than serum/plasma values. (CLIA ID [id number]) Glucose [Mass/Vol] 350 mg/dL High 70 - 100 mg/dL [place], [place] Comment on above: Test performed by gl ucose meter. Results may be 10%-15% lower than serum/plasma values. (CLIA ID [id number]) Glucose [Mass/Vol] 146 mg/dL High 70 - 100 mg/dL [place], [place] Comment on above: Test performed by gl ucose meter. Results may be 10%-15% lower than serum/plasma values. (CLIA ID [id number]) Interpretation and review of laboratory results Abnormal [place], [place] Test Performed by [facility], [address] [place] [address] [place], [place] Glucose [Mass/Vol] 125 mg/dL High 70 - 100 mg/dL [place] Comment on above: Test performed by gl ucose meter. Results may be 10%-15% lower than serum/plasma values. (CLIA ID [id number]) Interpretation and review of laboratory results Abnormal [place], [place] Test Performed by [facility], [address] [place] [address] [place], [place] Glucose [Mass/Vol] 210 mg/dL High 70 - 100 mg/dL [place], [place] Comment on above: Test performed by gl ucose meter. Results may be 10%-15% lower than serum/plasma values. (CLIA ID [id number]) Interpretation and review of laboratory results Abnormal [place], [place] Test Performed by [facility], [address] [place] [address] [place], [place] PROTIME INRon 05-30-2020 INR Coag (PPP) [Relative time] 1.5 {INR} High [place], [place] Comment on above: Recommended Anticoag ulant Therapy: SEE BELOW ----- INR of 2.0 - 3.0 : - Prophylaxis of Venous Thrombosis (high-risk surgery) - Treatment of Venous Thrombosis - Treatment of Pulmonary Embolism (Includes tissue heart valves, Acute Myocardial Infarction to prevent systemic embolism, Valvular Heart Disease, and Atrial Fibrillation) ----- INR of 2.5 - 3.5 : - Mechanical Prosthetic Valves (high risk) - If oral anticoagulant therapy is used to prevent Myocardial Infarction Interpretation and review of laboratory results Abnormal [place], [place] PT Coag (PPP) [Time] 15.9 s High 9 - 12 s [place], [place] Comment on above: . Test Performed by [facility], [address] [place] [id number] [place] [address] Phosphoruson 05-30-2020 Phosphate [Mass/Vol] 3.6 mg/dL Normal 2.5-4.5 [facility] Comment on above: Performed By: #### M G3, BMP3 #### [address] [address] Phosphate [Mass/Vol] 3.6 mg/dL 2.5 - 4 .5 mg/dL [place], [place] Prothrombin Timeon 0 INR Coag (PPP) [Relative time] 1.5 High 0.9-1.1 [facility] Comment on above: Result Comment: Naeem mmended Anticoagulant Therapy: SEE BELOW ----- INR of 2.0 - 3.0 : - Prophylaxis of Venous Thrombosis (high-risk surgery) - Treatment of Venous Thrombosis - Treatment of Pulmonary Embolism (Includes tissue heart valves, Acute Myocardial Infarction to prevent systemic embolism, Valvular Heart Disease, and Atrial Fibrillation) ----- INR of 2.5 - 3.5 : - Mechanical Prosthetic Valves (high risk) - If oral anticoagulant therapy is used to prevent Myocardial Infarction Performed By: #### B GLU #### [address] [place] [address] PT Coag (PPP) [Time] 15.9 s High 9.0-12.0 [facility] Comment on above: Result Comment: . Performed By: #### B GLU #### [address] [place] [address] Protime AND APTTon 0 aPTT Coag (Bld) [Time] 32.8 s High 20.0-30.[address] [facility] Comment on above: Result Comment: NOTE : The therapeutic time for Heparin anticoagulation, based on Xa activity inhibition, is an APTT of 46-80 seconds. Performed By: #### Sandie G3, BMP3 #### [address] [place] [address] INR Coag (PPP) [Relative time] 1.5 High 0.9-1.1 [facility] Comment on above: Result Comment: Naeem mmended Anticoagulant Therapy: SEE BELOW ----- INR of 2.0 - 3.0 : - Prophylaxis of Venous Thrombosis (high-risk surgery) - Treatment of Venous Thrombosis - Treatment of Pulmonary Embolism (Includes tissue heart valves, Acute Myocardial Infarction to prevent systemic embolism, Valvular Heart Disease, and Atrial Fibrillation) ----- INR of 2.5 - 3.5 : - Mechanical Prosthetic Valves (high risk) - If oral anticoagulant therapy is used to prevent Myocardial Infarction Performed By: #### Sandie G3, BMP3 #### [address] [place] [address] PT Coag (PPP) [Time] 15.9 s High 9.0-12.0 [facility] Comment on above: Result Comment: . Performed By: #### M G3, BMP3 #### [address] [place] [address] Protime/INR & PTTon 05-30-20 20 aPTT Coag (Bld) [Time] 32.8 s High 20 - 30.5 s [facility] [place], [place] Comment on above: NOTE: The therapeuti c time for Heparin anticoagulation, based on Xa activity inhibition, is an APTT of 46-80 seconds. INR Coag (PPP) [Relative time] 1.5 {INR} High [place], [place] Comment on above: Recommended Anticoag ulant Therapy: SEE BELOW ----- INR of 2.0 - 3.0 : - Prophylaxis of Venous Thrombosis (high-risk surgery) - Treatment of Venous Thrombosis - Treatment of Pulmonary Embolism (Includes tissue heart valves, Acute Myocardial Infarction to prevent systemic embolism, Valvular Heart Disease, and Atrial Fibrillation) ----- INR of 2.5 - 3.5 : - Mechanical Prosthetic Valves (high risk) - If oral anticoagulant therapy is used to prevent Myocardial Infarction Interpretation and review of laboratory results Abnormal [place], [place] PT Coag (PPP) [Time] 15.9 s High 9 - 12 s [place], [place] Comment on above: . Test Performed by [address] Troponinon 05-30-2020 Troponin I.cardiac [Mass/Vol] ng/mL 0 - 0.034 ng/mL [place], [place] Comment on above: . Test Performed by [address] Troponin Ion 05-30-2020 Troponin I.cardiac [Mass/Vol] ng/mL Normal 0.000-0.034 [facility] Comment on above: Result Comment: . Performed By: #### M G3, BMP3 #### [address] [address] CR Chest PA/LATon 05-19-2020 CR Chest PA/LAT Patient Name: ASCENCION MONTOYA Diagnostic Radiology Exam Date/Time 05/19/2020 14:44:12 EDT Exam CR Chest PA/LAT Ordering Physician HONEY GREGORIO JAN C Accession Number [id number] CPT4 Codes 56535 () Reason For Exam Other forms of dyspnea Report CHEST X-RAY PA/LATERAL CLINICAL INDICATION: Dyspnea Frontal and lateral plain films of the chest were obtained. COMPARISON: 05/14/2016 FINDINGS: The heart size is within normal limits. Sternotomy wires are again noted. There is atelectasis at the right lung base. No focal consolidation is seen. There is no significant pleural effusion or evidence of pneumothorax. There are degenerative changes of the thoracic spine. IMPRESSION: Right basilar atelectasis. No focal consolidation is definitely seen. Report Dictated on Final Dictated: 05/19/2020 5:43 pm Dictating Physician: MD PANCHAL JONATHAN R Signed Date and Time: 05/19/2020 5:44 pm Signed by: MD PANCHAL JONATHAN R Transcribed Date and Time: 05/19/2020 5:43 Normal [facility] XR CHEST (2 VW)on 05-19-2020 Patient Name: ASCENCION MONTOYA ---Diagnostic Radiology--- Exam Date/Time 05/19/2020 14:44:12 EDT Exam CR Chest PA/LAT Ordering Physician HONEY GREGORIO JAN C Accession Number [id number] CPT4 Codes 51754 () Reason For Exam Other forms of dyspnea Report CHEST X-RAY PA/LATERAL CLINICAL INDICATION: Dyspnea Frontal and lateral plain films of the chest were obtained. COMPARISON: 05/14/2016 FINDINGS: The heart size is within normal limits. Sternotomy wires are again noted. There is atelectasis at the right lung base. No focal consolidation is seen. There is no significant pleural effusion or evidence of pneumothorax. There are degenerative changes of the thoracic spine. IMPRESSION: Right basilar atelectasis. No focal consolidation is definitely seen. Report Dictated on --- Final --- Dictated: 05/19/2020 5:43 pm Dictating Physician: MD PANCHAL JONATHAN R Signed Date and Time: 05/19/2020 5:44 pm Signed by: MD PANCHAL JONATHAN R Transcribed Date and Time: 05/19/2020 5:43 [facility], [facility], [facility] Incoming Radiology Results From [facility] - 05/19/2020 5:45 PM EDT Patient Name: ASCENCION WEIR ---Diagnostic Radiology--- Exam Date/Time 05/19/2020 14:44:12 EDT Exam CR Chest PA/LAT Ordering Physician HONEY GREGORIO JAN C Accession Number [id number] CPT4 Codes 21067 () Reason For Exam Other forms of dyspnea Report CHEST X-RAY PA/LATERAL CLINICAL INDICATION: Dyspnea Frontal and lateral plain films of the chest were obtained. COMPARISON: 05/14/2016 FINDINGS: The heart size is within normal limits. Sternotomy wires are again noted. There is atelectasis at the right lung base. No focal consolidation is seen. There is no significant pleural effusion or evidence of pneumothorax. There are degenerative changes of the thoracic spine. IMPRESSION: Right basilar atelectasis. No focal consolidation is definitely seen. Report Dictated on --- Final --- Dictated: 05/19/2020 5:43 pm Dictating Physician: MD PANCHAL JONATHAN R Signed Date and Time: 05/19/2020 5:44 pm Signed by: MD PANCHAL JONATHAN R Transcribed Date and Time: 05/19/2020 5:43 [place], [place] Basic Metabolic Panelon - Anion gap [Moles/Vol] 7 Normal [facility] Comment on above: Performed By: #### Sandie Cobb BMP3 #### [facility] [address] [place] [address] Calcium [Mass/Vol] 8.5 mg/dL Normal 8.4-10.4 [facility] Comment on above: Performed By: #### Sandie Cobb, BMP3 #### [facility] [address] [place] [address] CO2 [Moles/Vol] 27 mmol/L Normal 22-30 [facility] Comment on above: Performed By: #### Sandie Cobb BMP3 #### [facility] [address] [place] [address] Glucose [Mass/Vol] 141 mg/dL High 70-100 [facility] Comment on above: Performed By: #### Sandie Cobb, BMP3 #### [facility] [address] [place] [address] Urea nitrogen [Mass/Vol] 19 mg/dL Normal 7-20 [facility] Comment on above: Performed By: #### Sandie Cobb, BMP3 #### [facility] [address] [place], [place] Creatinine [Mass/Vol] 0.81 mg/dL Normal 0.52-1.25 [facility] Comment on above: Performed By: #### Sandie G3, BMP3 #### [facility] [address] [place] [address] GFR/1.73 sq M predicted among blacks MDRD (S/P/Bld) [Vol rate/Area] mL/min/{1.73_m2} Normal >60 [facility] Comment on above: Performed By: #### M G3, BMP3 #### [facility] [address] [place] [address] GFR/1.73 sq M predicted among non-blacks MDRD (S/P/Bld) [Vol rate/Area] 89.0 mL/min/{1.73_m2} Normal >60 [facility] Comment on above: Result Comment: KDIG O guidelines provide the following GFR categories: Stage GFR(ml/min/1.73 m2) Terms G1 >=90 Normal or high G2 60-89 Mildly decreased* G3a 45-59 Mildly to moderately decreased G3b 30-44 Moderately to severely decreased G4 15-29 Severely decreased G5 <15 Kidney failure *Relative to young adult level. In the absence of evidence of kidney damage, neither GFR category G1 nor G2 fulfill the criteria for CKD. The CKD-EPI equation is validated in individuals 18 years of age and older. Currently the best equation for estimating glomerular filtration rate (GFR) from serum creatinine in children is the Bedside Garza equation. It is less accurate in patients with extremes of muscle mass, restriction of dietary protein, ingestion of creatine, extra-renal metabolism of creatinine, or treatment with medications that affect renal tubular creatinine secretion. Performed By: #### Sandie G3, BMP3 #### [facility] [address], [place] Chloride [Moles/Vol] 101 mmol/L Normal 98-107 [facility] Comment on above: Performed By: #### Sandie G3, BMP3 #### [facility] [address], [place] Potassium [Moles/Vol] 4.3 mmol/L Normal 3.5-5.1 [facility] Comment on above: Performed By: #### Sandie G3, BMP3 #### [facility] [address] [place] [address] Sodium [Moles/Vol] 134 mmol/L Low 135-145 [facility] Comment on above: Performed By: #### M Jordyn, BMP3 #### [facility] [address] [place] [address] Anion gap [Moles/Vol] 7 mmol/L [place], [place] Calcium [Mass/Vol] 8.5 mg/dL 8.4 - 10. 4 mg/dL [place] Chloride [Moles/Vol] 101 mmol/L 98 - 10 7 mmol/L [place] CO2 [Moles/Vol] 27 mmol/L 22 - 30 mmol/L [place] Creatinine [Mass/Vol] 0.81 mg/dL 0.52 - 1.25 mg/dL [place] EGFR IF NonAfrican Thai 89.0 mL/min >60 [place] Comment on above: KDIGO guidelines pro vide the following GFR categories: Stage GFR(ml/min/1.73 m2) Terms G1 >=90 Normal or high G2 60-89 Mildly decreased* G3a 45-59 Mildly to moderately decreased G3b 30-44 Moderately to severely decreased G4 15-29 Severely decreased G5 <15 Kidney failure *Relative to young adult level. In the absence of evidence of kidney damage, neither GFR category G1 nor G2 fulfill the criteria for CKD. The CKD-EPI equation is validated in individuals 18 years of age and older. Currently the best equation for estimating glomerular filtration rate (GFR) from serum creatinine in children is the Bedside Garza equation. It is less accurate in patients with extremes of muscle mass, restriction of dietary protein, ingestion of creatine, extra-renal metabolism of creatinine, or treatment with medications that affect renal tubular creatinine secretion. GFR/1.73 sq M predicted among blacks MDRD (S/P/Bld) [Vol rate/Area] mL/min/{1.73_m2} >60 mL/min [place] Glucose [Mass/Vol] 141 mg/dL High 70 - 100 mg/dL [place] Interpretation and review of laboratory results Abnormal [place] Potassium [Moles/Vol] 4.3 mmol/L 3.5 - 5.1 mmol/L [place] Sodium [Moles/Vol] 134 mmol/L Low 135 - 145 mmol/L [place] Urea nitrogen [Mass/Vol] 19 mg/dL 7 - 20 mg/dL [place] CBCon 05-14-2020 Erythrocyte distribution width (RBC) [Ratio] 13.5 % 11.5 - 14.5 % [place] Hematocrit (Bld) [Volume fraction] 25.0 % Low 40 - 52 % [place] Hemoglobin (Bld) [Mass/Vol] 8.9 g/dL Low 13 - 18 g/dL [place] Interpretation and review of laboratory results Abnormal [place] MCH (RBC) [Entitic mass] 31.7 pg 26 - 34 pg [place] MCHC (RBC) [Mass/Vol] 35.5 % 32 - 36 % [place], [place] MCV (RBC) [Entitic vol] 89.3 fL 80 - 98 fL [place] Platelet mean volume (Bld) [Entitic vol] 7.5 fL 7.4 - 10.4 fL [place] Platelets (Bld) [#/Vol] 155 10*3/uL 140 - 440 10*3/uL [place] RBC (Bld) [#/Vol] 2.80 10*6/uL Low 4.4 - 5.9 10*6/uL [place] WBC (Bld) [#/Vol] 6.1 10*3/uL 3.6 - 10.7 10*3/uL [place] Test Performed by [facility], [address] [place] [id number] [place] [address] CR Chest Portableon 05-14-20 20 CR Chest Portable Patient Name: ASCENCION MONTOYA Diagnostic Radiology Exam Date/Time 05/14/2020 05:21:09 EDT Exam CR Chest Portable Ordering Physician JEAN CLAUDE KILLIAN Accession Number [id number] CPT4 Codes 99047 () Reason For Exam Shortness of breath Report PORTABLE CHEST Clinical indication: Shortness of breath Comparison: 05/13/2020. Patient is rotated towards the right. Sternotomy wires appear unchanged. Cardiac silhouette appears unchanged in size. Minimal atelectasis is noted at the lung bases. Minimal pleural fluid blunts the right costophrenic angle. IMPRESSION: Minimal basilar atelectasis and minimal left pleural fluid Report Dictated on Final Dictated: 05/14/2020 5:25 am Dictating Physician: MD GOLDBERG DIANE Signed Date and Time: 05/14/2020 5:27 am Signed by: MD GOLDBERG DIANE Transcribed Date and Time: 05/14/2020 5:25 Normal [facility] Echocardiogram transesophage jan 05-14-2020 TRANSESOPHAGEAL ECHOCARDIOGRAM Intraoperative-Pre and Post Pump PATIENT: Carmella, STUDY DATE: 05/08/2020 Ascencion Aponte : 1950 AGE: 69 HT/WT: 172.7 cm (68 99.8 kg (219.5 in) lb) GENDER: M BP: LOCATION: [facility] PATIENT Inpatient main STATUS: *ORDERING PHYSICIAN: * Gabe Savage *READING PHYSICIAN: * Rachael Murry *MANAGER CUSTOMER: * Margie MAYA MD INDICATIONS: Coronary artery disease. Aortic valve disorders. CONCLUSIONS SUMMARY: Pre-CPB Normal LV function with severe Post-CPB Newly placed, well functioning aortic valve with maintained LV function. STUDY DATA: Operative transesophageal echocardiogram. Procedure: The procedure was performed with the patient intubated under general anesthesia on the operating table. A complete pre-operative ZAINAB was performed. Intra-operative monitoring was performed as needed. Post-operative imaging was performed to evaluate procedural success and to assess for complications. Image quality was excellent. A transesophageal probe was inserted by the anesthesiologistwithout difficulty. Complete 2D, complete spectral Doppler, and color flow Doppler images were acquired and archived for permanent storage and are available for subsequent review. Study status: Routine. Patient status: Inpatient. Location: Operating room. Administered medications: Etomidate. FINDINGS LEFT VENTRICLE: The cavity size is normal. Systolic function is normal. RIGHT VENTRICLE: The cavity size is normal. Systolic function is normal. VENTRICULAR SEPTUM: There is no evidence of a ventricular septal defect. LEFT ATRIUM: The atrium is normal in size. There is no evidence of a thrombus in the atrial cavity or appendage. No spontaneous echo contrast is observed. The appendage is of normal size. Emptying velocity is normal. RIGHT ATRIUM: The atrium is normal in size. MITRAL VALVE: Structurally normal valve. Leaflet separation is normal. Doppler: There is mild, 1+ regurgitation. AORTIC VALVE: Trileaflet. Doppler: There is severe stenosis. There is mild, 1+ regurgitation. Dimensionless index: 0.7. The peak systolic velocity is 2 m/sec. TRICUSPID VALVE: Structurally normal valve. Leaflet separation is normal. Doppler: There is trivial, less than 1+ regurgitation. PULMONIC VALVE: Cusp separation is normal. Doppler: There is trivial, less than 1+ regurgitation. AORTA: The aorta is mildly diseased. There is no evidence for aneurysm. There is no evidence for dissection. Aortic root: The aortic root is not dilated. PULMONARY ARTERY: The main pulmonary artery is normal in size. PERICARDIUM: There is no pericardial effusion. SYSTEMIC VEINS: Superior vena cava: The vessel is normal in size. Measurements LVOT Value LVOT ID, A-P 2.3 cm LVOT mean velocity, S 0.7 m/sec LVOT peak gradient, S 4 mm Hg Stroke volume (SV), LVOT DP 84 ml Stroke index (SV/bsa), LVOT DP 38 ml/m^2 Aortic valve Value Aortic valve peak velocity, S 2 m/sec Aortic valve mean velocity, S 1.2 m/sec DI 0.7 Legend: (L) and (H) adrian values outside specified reference range. Electronically signed by Rachael Murry MD 05/14/2020 10:50 Prior Signatures: [facility], [facility], [facility] Incoming Cardiology Results From [employer] - 05/14/2020 10:52 AM EDT TRANSESOPHAGEAL ECHOCARDIOGRAM Intraoperative-Pre and Post Pump PATIENT: Carmella, STUDY DATE: 05/08/2020 Ascencion Aponte : 1950 AGE: 69 HT/WT: 172.7 cm (68 99.8 kg (219.5 in) lb) GENDER: M BP: LOCATION: [facility] PATIENT Inpatient main STATUS: *ORDERING PHYSICIAN: * Gabe Savage *READING PHYSICIAN: * Rachael Murry *MANAGER CUSTOMER: * Margie MAYA MD INDICATIONS: Coronary artery disease. Aortic valve disorders. CONCLUSIONS SUMMARY: Pre-CPB Normal LV function with severe Post-CPB Newly placed, well functioning aortic valve with maintained LV function. STUDY DATA: Operative transesophageal echocardiogram. Procedure: The procedure was performed with the patient intubated under general anesthesia on the operating table. A complete pre-operative ZAINAB was performed. Intra-operative monitoring was performed as needed. Post-operative imaging was performed to evaluate procedural success and to assess for complications. Image quality was excellent. A transesophageal probe was inserted by the anesthesiologistwithout difficulty. Complete 2D, complete spectral Doppler, and color flow Doppler images were acquired and archived for permanent storage and are available for subsequent review. Study status: Routine. Patient status: Inpatient. Location: Operating room. Administered medications: Etomidate. FINDINGS LEFT VENTRICLE: The cavity size is normal. Systolic function is normal. RIGHT VENTRICLE: The cavity size is normal. Systolic function is normal. VENTRICULAR SEPTUM: There is no evidence of a ventricular septal defect. LEFT ATRIUM: The atrium is normal in size. There is no evidence of a thrombus in the atrial cavity or appendage. No spontaneous echo contrast is observed. The appendage is of normal size. Emptying velocity is normal. RIGHT ATRIUM: The atrium is normal in size. MITRAL VALVE: Structurally normal valve. Leaflet separation is normal. Doppler: There is mild, 1+ regurgitation. AORTIC VALVE: Trileaflet. Doppler: There is severe stenosis. There is mild, 1+ regurgitation. Dimensionless index: 0.7. The peak systolic velocity is 2 m/sec. TRICUSPID VALVE: Structurally normal valve. Leaflet separation is normal. Doppler: There is trivial, less than 1+ regurgitation. PULMONIC VALVE: Cusp separation is normal. Doppler: There is trivial, less than 1+ regurgitation. AORTA: The aorta is mildly diseased. There is no evidence for aneurysm. There is no evidence for dissection. Aortic root: The aortic root is not dilated. PULMONARY ARTERY: The main pulmonary artery is normal in size. PERICARDIUM: There is no pericardial effusion. SYSTEMIC VEINS: Superior vena cava: The vessel is normal in size. Measurements LVOT Value LVOT ID, A-P 2.3 cm LVOT mean velocity, S 0.7 m/sec LVOT peak gradient, S 4 mm Hg Stroke volume (SV), LVOT DP 84 ml Stroke index (SV/bsa), LVOT DP 38 ml/m^2 Aortic valve Value Aortic valve peak velocity, S 2 m/sec Aortic valve mean velocity, S 1.2 m/sec DI 0.7 Legend: (L) and (H) adrian values outside specified reference range. Electronically signed by Rachael Murry MD 05/14/2020 10:50 Prior Signatures: [facility] [place], [place] Glucose,Bedsideon 05-14-2020 Glucose [Mass/Vol] 177 mg/dL High 70-100 [facility] Comment on above: Result Comment: Test performed by glucose meter. Results may be 10%-15% lower than serum/plasma values. (CLIA ID [id number]) Performed By: #### B GLU #### [facility] [address] [place] [address] Hemogramon 05-14-2020 Erythrocyte distribution width (RBC) [Ratio] 13.5 % Normal 11.5-14.5 [facility] Comment on above: Performed By: #### M G3, BMP3 #### [facility] [address] [place] [address] Hematocrit (Bld) [Volume fraction] 25.0 % Low 40.0-52.0 [facility] Comment on above: Performed By: #### Sandie G3, BMP3 #### [place] [address] [place], [place] Hemoglobin (Bld) [Mass/Vol] 8.9 g/dL Low 13.0-18.0 [facility] Comment on above: Performed By: #### Sandie G3, BMP3 #### [place] [address] [place], [place] MCH (RBC) [Entitic mass] 31.7 pg Normal 26.0-34.0 [facility] Comment on above: Performed By: #### Sandie G3, BMP3 #### [place] [address] [place], [place] MCHC (RBC) [Mass/Vol] 35.5 % Normal 32.0-36.0 [facility] Comment on above: Performed By: #### Sandie G3, BMP3 #### [place] [address] [place], [place] MCV (RBC) [Entitic vol] 89.3 fL Normal 80.0-98.0 [facility] Comment on above: Performed By: #### Sandie G3, BMP3 #### [place] [address] [place], [place] Platelet mean volume (Bld) [Entitic vol] 7.5 fL Normal 7.4-10.4 [facility] Comment on above: Performed By: #### Sandie G3, BMP3 #### [place] [address] [place], [place] Platelets (Bld) [#/Vol] 155 10*3/uL Normal 140-440 [facility] Comment on above: Performed By: #### Sandie G3, BMP3 #### [place] [address] [place], [place] RBC (Bld) [#/Vol] 2.80 10*6/uL Low 4.40-5.90 [facility] Comment on above: Performed By: #### Sandie G3, BMP3 #### [place] [address] [place], [place] WBC (Bld) [#/Vol] 6.1 10*3/uL Normal 3.6-10.7 [facility] Comment on above: Performed By: #### M Jordyn, BMP3 #### [place] [address] [place], [place] Magnesiumon 05-14-2020 Magnesium [Mass/Vol] 1.9 mg/dL Normal 1.6-2.3 [facility] Comment on above: Performed By: #### Sandie G3, BMP3 #### [facility] [address] [place], [place] Magnesium [Mass/Vol] 1.9 mg/dL 1.6 - 2 .3 mg/dL [place], [place] Otheron 05-14-2020 Test Performed by [id number] [place] [address] POCT Glucoseon 05-14-2020 Glucose [Mass/Vol] 177 mg/dL High 70 - 100 mg/dL [place] Comment on above: Test performed by [employer] ucose meter. Results may be 10%-15% lower than serum/plasma values. (CLIA ID [id number]) Interpretation and review of laboratory results Abnormal [place] Test Performed by [id number] [place] [address] Prothrombin Timeon 0 INR Coag (PPP) [Relative time] 1.4 High 0.9-1.1 [facility] Comment on above: Result Comment: Naeem mmended Anticoagulant Therapy: SEE BELOW ----- INR of 2.0 - 3.0 : - Prophylaxis of Venous Thrombosis (high-risk surgery) - Treatment of Venous Thrombosis - Treatment of Pulmonary Embolism (Includes tissue heart valves, Acute Myocardial Infarction to prevent systemic embolism, Valvular Heart Disease, and Atrial Fibrillation) ----- INR of 2.5 - 3.5 : - Mechanical Prosthetic Valves (high risk) - If oral anticoagulant therapy is used to prevent Myocardial Infarction Performed By: #### M G3, BMP3 #### [facility] [address] [place], [place] PT Coag (PPP) [Time] 14.6 s High 9.0-12.0 [facility] Comment on above: Result Comment: . Performed By: #### M BMP3 #### [address] [address] Protime-INRon 05-14-2020 INR Coag (PPP) [Relative time] 1.4 {INR} High [place] Comment on above: Recommended Anticoag ulant Therapy: SEE BELOW ----- INR of 2.0 - 3.0 : - Prophylaxis of Venous Thrombosis (high-risk surgery) - Treatment of Venous Thrombosis - Treatment of Pulmonary Embolism (Includes tissue heart valves, Acute Myocardial Infarction to prevent systemic embolism, Valvular Heart Disease, and Atrial Fibrillation) ----- INR of 2.5 - 3.5 : - Mechanical Prosthetic Valves (high risk) - If oral anticoagulant therapy is used to prevent Myocardial Infarction Interpretation and review of laboratory results Abnormal [place], [place] PT Coag (PPP) [Time] 14.6 s High 9 - 12 s [place], [place] Comment on above: . Test Performed by [facility], [address] [place] [id number] [place], [place] XR CHEST PORTABLEon 05-14-20 20 [facility] Incoming Radiology Results From [facility] - 05/14/2020 5:28 AM EDT Patient Name: ASCENCION WEIR ---Diagnostic Radiology--- Exam Date/Time 05/14/2020 05:21:09 EDT Exam CR Chest Portable Ordering Physician JEAN CLAUDE KILLIAN Accession Number [id number] CPT4 Codes 43478 () Reason For Exam Shortness of breath Report PORTABLE CHEST Clinical indication: Shortness of breath Comparison: 05/13/2020. Patient is rotated towards the right. Sternotomy wires appear unchanged. Cardiac silhouette appears unchanged in size. Minimal atelectasis is noted at the lung bases. Minimal pleural fluid blunts the right costophrenic angle. IMPRESSION: Minimal basilar atelectasis and minimal left pleural fluid Report Dictated on --- Final --- Dictated: 05/14/2020 5:25 am Dictating Physician: MD GOLDBERG DIANE Signed Date and Time: 05/14/2020 5:27 am Signed by: MD GOLDBERG DIANE Transcribed Date and Time: 05/14/2020 5:25 [place] Patient Name: ASCENCION MONTOYA ---Diagnostic Radiology--- Exam Date/Time 05/14/2020 05:21:09 EDT Exam CR Chest Portable Ordering Physician JEAN CLAUDE KILLIAN Accession Number [id number] CPT4 Codes 61009 () Reason For Exam Shortness of breath Report PORTABLE CHEST Clinical indication: Shortness of breath Comparison: 05/13/2020. Patient is rotated towards the right. Sternotomy wires appear unchanged. Cardiac silhouette appears unchanged in size. Minimal atelectasis is noted at the lung bases. Minimal pleural fluid blunts the right costophrenic angle. IMPRESSION: Minimal basilar atelectasis and minimal left pleural fluid Report Dictated on --- Final --- Dictated: 05/14/2020 5:25 am Dictating Physician: MD GOLDBERG DIANE Signed Date and Time: 05/14/2020 5:27 am Signed by: MD GOLDBERG DIANE Transcribed Date and Time: 05/14/2020 5:25 [place], [place] Basic Metabolic Panelon 04-29 Calcium [Mass/Vol] 8.4 mg/dL Normal 8.4-10.4 [facility] Comment on above: Performed By: #### B GLU #### [address] [place], [place] Anion gap [Moles/Vol] 7 Normal [facility] Comment on above: Performed By: #### B GLU #### [facility] [address] [place], [place] CO2 [Moles/Vol] 28 mmol/L Normal 22-30 [facility] Comment on above: Performed By: #### B GLU #### [facility] [address] [place], [place] Creatinine [Mass/Vol] 0.94 mg/dL Normal 0.52-1.25 [facility] Comment on above: Performed By: #### B GLU #### [facility] [address] [place] [address] GFR/1.73 sq M predicted among blacks MDRD (S/P/Bld) [Vol rate/Area] mL/min/{1.73_m2} Normal >60 [facility] Comment on above: Performed By: #### B GLU #### [facility] [address] [place] [address] GFR/1.73 sq M predicted among non-blacks MDRD (S/P/Bld) [Vol rate/Area] 80.8 mL/min/{1.73_m2} Normal >60 [facility] Comment on above: Result Comment: KDIG O guidelines provide the following GFR categories: Stage GFR(ml/min/1.73 m2) Terms G1 >=90 Normal or high G2 60-89 Mildly decreased* G3a 45-59 Mildly to moderately decreased G3b 30-44 Moderately to severely decreased G4 15-29 Severely decreased G5 <15 Kidney failure *Relative to young adult level. In the absence of evidence of kidney damage, neither GFR category G1 nor G2 fulfill the criteria for CKD. The CKD-EPI equation is validated in individuals 18 years of age and older. Currently the best equation for estimating glomerular filtration rate (GFR) from serum creatinine in children is the Bedside Garza equation. It is less accurate in patients with extremes of muscle mass, restriction of dietary protein, ingestion of creatine, extra-renal metabolism of creatinine, or treatment with medications that affect renal tubular creatinine secretion. Performed By: #### B GLU #### [facility] [address] [place] [address] Glucose [Mass/Vol] 150 mg/dL High 70-100 [facility] Comment on above: Performed By: #### B GLU #### [facility] [address] [place] [address] Urea nitrogen [Mass/Vol] 27 mg/dL High 7-20 [facility] Comment on above: Performed By: #### B GLU #### [facility] [address] [place] [address] Chloride [Moles/Vol] 98 mmol/L Normal 98-107 [facility] Comment on above: Performed By: #### B GLU #### [facility] [address] [place], [place] Potassium [Moles/Vol] 4.1 mmol/L Normal 3.5-5.1 [facility] Comment on above: Performed By: #### B GLU #### [facility] [address] [place], [place] Sodium [Moles/Vol] 133 mmol/L Low 135-145 [facility] Comment on above: Performed By: #### B GLU #### [facility] [address] [place], [place] Anion gap [Moles/Vol] 7 mmol/L [place], [place] Calcium [Mass/Vol] 8.4 mg/dL 8.4 - 10. 4 mg/dL [place] Chloride [Moles/Vol] 98 mmol/L 98 - 10 7 mmol/L [place] CO2 [Moles/Vol] 28 mmol/L 22 - 30 mmol/L [place] Creatinine [Mass/Vol] 0.94 mg/dL 0.52 - 1.25 mg/dL [place] EGFR IF NonAfrican [place] 80.8 mL/min >60 [place] Comment on above: KDIGO guidelines pro vide the following GFR categories: Stage GFR(ml/min/1.73 m2) Terms G1 >=90 Normal or high G2 60-89 Mildly decreased* G3a 45-59 Mildly to moderately decreased G3b 30-44 Moderately to severely decreased G4 15-29 Severely decreased G5 <15 Kidney failure *Relative to young adult level. In the absence of evidence of kidney damage, neither GFR category G1 nor G2 fulfill the criteria for CKD. The CKD-EPI equation is validated in individuals 18 years of age and older. Currently the best equation for estimating glomerular filtration rate (GFR) from serum creatinine in children is the Bedside Garza equation. It is less accurate in patients with extremes of muscle mass, restriction of dietary protein, ingestion of creatine, extra-renal metabolism of creatinine, or treatment with medications that affect renal tubular creatinine secretion. GFR/1.73 sq M predicted among blacks MDRD (S/P/Bld) [Vol rate/Area] mL/min/{1.73_m2} >60 mL/min [place] Glucose [Mass/Vol] 150 mg/dL High 70 - 100 mg/dL [place] Interpretation and review of laboratory results Abnormal [place] Potassium [Moles/Vol] 4.1 mmol/L 3.5 - 5.1 mmol/L [place] Sodium [Moles/Vol] 133 mmol/L Low 135 - 145 mmol/L [place] Urea nitrogen [Mass/Vol] 27 mg/dL High 7 - 20 mg/dL [place] CBCon 05-13-2020 Erythrocyte distribution width (RBC) [Ratio] 13.4 % 11.5 - 14.5 % [place] Hematocrit (Bld) [Volume fraction] 23.9 % Low 40 - 52 % [place] Hemoglobin (Bld) [Mass/Vol] 8.6 g/dL Low 13 - 18 g/dL [place] Interpretation and review of laboratory results Abnormal [place] MCH (RBC) [Entitic mass] 31.6 pg 26 - 34 pg [place] MCHC (RBC) [Mass/Vol] 35.9 % 32 - 36 % [place], [place] MCV (RBC) [Entitic vol] 87.9 fL 80 - 98 fL [place] Platelet mean volume (Bld) [Entitic vol] 7.7 fL 7.4 - 10.4 fL [place] Platelets (Bld) [#/Vol] 128 10*3/uL Low 140 - 440 10*3/uL [place] RBC (Bld) [#/Vol] 2.72 10*6/uL Low 4.4 - 5.9 10*6/uL [place] WBC (Bld) [#/Vol] 5.9 10*3/uL 3.6 - 10.7 10*3/uL [place] Test Performed by [facility], [address] [place] [address] [place], [place] CR Chest Portableon 05-13-20 20 CR Chest Portable Patient Name: ASCENCION MONTOYA [facility]: [id number] Diagnostic Radiology Exam Date/Time 05/13/2020 05:28:43 EDT Exam CR Chest Portable Ordering Physician JEAN CLAUDE KILLIAN Accession Number [id number] CPT4 Codes 24074 () Reason For Exam Shortness of breath Report PORTABLE CHEST Clinical indication: Shortness of breath Comparison: 05/12/2020. Chest tubes are no longer identified. Sternotomy wires are unchanged. Cardiac silhouette is unchanged in size. Patient is rotated towards the right. There is mild atelectasis bilaterally. No pleural effusions are noted. No pneumothorax is identified. IMPRESSION: Interval removal of chest tubes with no pneumothorax Mild atelectasis Report Dictated on Final Dictated: 05/13/2020 5:39 am Dictating Physician: MD GOLDBERG DIANE Signed Date and Time: 05/13/2020 5:40 am Signed by: MD GOLDBERG DIANE Transcribed Date and Time: 05/13/2020 5:39 Normal [facility] EKG 12 Leadon 05-13-2020 [place], [facility] Incoming Cardiology Results From [facility] - 05/13/2020 3:55 PM EDT [facility] Test Date: 2020-05-12 Pat Name: Ascencion Weir Department: 1AHLU Room: [facility] Gender: M Dog Warden: DAWSON : 1950 Requested By: JEAN CLAUDE KILLIAN Order Number: [id number] Reading : Tirso Velasquez Measurements Intervals Herod Rate: 131 P: DE: QRS: 28 QRSD: 76 T: 36 QT: 301 QTc: 445 Interpretive Statements Atrial fibrillation Electronically Signed On 05-13-2020 15:54:23 EDT by Tirso [facility] Test Date: 2020-05-12 Pat Name: Ascencion Weir Department: 1AHLU Room: [facility] Gender: M Dog Warden: DAWSON : 1950 Requested By: JEAN CLAUDE KILLIAN Order Number: [id number] Reading BRANDY Velasquez Measurements Intervals Herod Rate: 131 P: DE: QRS: 28 QRSD: 76 T: 36 QT: 301 QTc: 445 Interpretive Statements Atrial fibrillation Electronically Signed On 05-13-2020 15:54:23 EDT by Tirso [facility] [place], [place] Glucose,Bedsideon 05-13-2020 Glucose [Mass/Vol] 190 mg/dL High 70-100 [facility] Comment on above: Result Comment: Test performed by glucose meter. Results may be 10%-15% lower than serum/plasma values. (CLIA ID [id number]) Performed By: #### B GLU #### [facility] [address] [place] [address] Glucose [Mass/Vol] 151 mg/dL High 70-100 [facility] Comment on above: Result Comment: Test performed by glucose meter. Results may be 10%-15% lower than serum/plasma values. (CLIA ID [id number]) Performed By: #### B MP3, PHOS3, HEMOG, PT/AP, MG3 #### [facility] [address], [place] Glucose [Mass/Vol] 191 mg/dL High 70-100 [facility] Comment on above: Result Comment: Test performed by glucose meter. Results may be 10%-15% lower than serum/plasma values. (CLIA ID [id number]) Performed By: #### B MP3, PHOS3, HEMOG, PT/AP, MG3 #### [facility] [address] [place] [address] Hemogramon 05-13-2020 Erythrocyte distribution width (RBC) [Ratio] 13.4 % Normal 11.5-14.5 [facility] Comment on above: Performed By: #### B GLU #### [facility] [address], [place] Hematocrit (Bld) [Volume fraction] 23.9 % Low 40.0-52.0 [facility] Comment on above: Performed By: #### B GLU #### [facility] [address], [place] Hemoglobin (Bld) [Mass/Vol] 8.6 g/dL Low 13.0-18.0 [facility] Comment on above: Performed By: #### B GLU #### [facility] [address], [place] MCH (RBC) [Entitic mass] 31.6 pg Normal 26.0-34.0 [facility] Comment on above: Performed By: #### B GLU #### [facility] [address], [place] MCHC (RBC) [Mass/Vol] 35.9 % Normal 32.0-36.0 [facility] Comment on above: Performed By: #### B GLU #### [place] [address], [place] MCV (RBC) [Entitic vol] 87.9 fL Normal 80.0-98.0 [facility] Comment on above: Performed By: #### B GLU #### [place] [address] [address] [place], [place] Platelet mean volume (Bld) [Entitic vol] 7.7 fL Normal 7.4-10.4 [facility] Comment on above: Performed By: #### B GLU #### [place] [address] [address] [place], [place] Platelets (Bld) [#/Vol] 128 10*3/uL Low 140-440 [facility] Comment on above: Performed By: #### B GLU #### [place] [address] [address] [place], [place] RBC (Bld) [#/Vol] 2.72 10*6/uL Low 4.40-5.90 [facility] Comment on above: Performed By: #### B GLU #### [place] [address] [address] [place], [place] WBC (Bld) [#/Vol] 5.9 10*3/uL Normal 3.6-10.7 [facility] Comment on above: Performed By: #### B GLU #### [place] [address] [address] [place], [place] Magnesiumon 05-13-2020 Magnesium [Mass/Vol] 1.8 mg/dL Normal 1.6-2.3 [facility] Comment on above: Performed By: #### B GLU #### [address] [address] [place] [address] Magnesium [Mass/Vol] 1.8 mg/dL 1.6 - 2 .3 mg/dL [place] Otheron 05-13-2020 Test Performed by [facility], [facility] [place] [id number] [place] [address] POCT Glucoseon 05-13-2020 Glucose [Mass/Vol] 190 mg/dL High 70 - 100 mg/dL [place] Comment on above: Test performed by gl ucose meter. Results may be 10%-15% lower than serum/plasma values. (CLIA ID [id number]) Interpretation and review of laboratory results Abnormal [facility] [place] Test Performed by [facility], [facility] [place] [id number] [place] [address] Glucose [Mass/Vol] 151 mg/dL High 70 - 100 mg/dL [place] Comment on above: Test performed by gl ucose meter. Results may be 10%-15% lower than serum/plasma values. (CLIA ID [id number]) Interpretation and review of laboratory results Abnormal [facility] [place] Test Performed by [facility], [address] [place] [id number] [place] [address] Glucose [Mass/Vol] 191 mg/dL High 70 - 100 mg/dL [place] Comment on above: Test performed by gl ucose meter. Results may be 10%-15% lower than serum/plasma values. (CLIA ID [id number]) Interpretation and review of laboratory results Abnormal [facility] [place] Test Performed by [facility], [place] [address] [place] Prothrombin Timeon 0 INR Coag (PPP) [Relative time] 1.3 High 0.9-1.1 [facility] Comment on above: Result Comment: Naeem mmended Anticoagulant Therapy: SEE BELOW ----- INR of 2.0 - 3.0 : - Prophylaxis of Venous Thrombosis (high-risk surgery) - Treatment of Venous Thrombosis - Treatment of Pulmonary Embolism (Includes tissue heart valves, Acute Myocardial Infarction to prevent systemic embolism, Valvular Heart Disease, and Atrial Fibrillation) ----- INR of 2.5 - 3.5 : - Mechanical Prosthetic Valves (high risk) - If oral anticoagulant therapy is used to prevent Myocardial Infarction Performed By: #### B GLU #### [facility] [address] [place] [address] PT Coag (PPP) [Time] 13.7 s High 9.0-12.0 [facility] Comment on above: Result Comment: . Performed By: #### B GLU #### [facility] [address] [place] [address] Protime-INRon 05-13-2020 INR Coag (PPP) [Relative time] 1.3 {INR} [place] Comment on above: Recommended Anticoag ulant Therapy: SEE BELOW ----- INR of 2.0 - 3.0 : - Prophylaxis of Venous Thrombosis (high-risk surgery) - Treatment of Venous Thrombosis - Treatment of Pulmonary Embolism (Includes tissue heart valves, Acute Myocardial Infarction to prevent systemic embolism, Valvular Heart Disease, and Atrial Fibrillation) ----- INR of 2.5 - 3.5 : - Mechanical Prosthetic Valves (high risk) - If oral anticoagulant therapy is used to prevent Myocardial Infarction Interpretation and review of laboratory results Abnormal [place] PT Coag (PPP) [Time] 13.7 s High 9 - 12 s [place], [place] Comment on above: . Test Performed by [facility], [address] [place] [address] [place] XR CHEST PORTABLEon 05-13-[address] [place] [address] Incoming Radiology Results From [facility] - 05/13/2020 5:42 AM EDT Patient Name: ASCENCION WEIR ---Diagnostic Radiology--- Exam Date/Time 05/13/2020 05:28:43 EDT Exam CR Chest Portable Ordering Physician JEAN CLAUDE KILLIAN Accession Number [id number] CPT4 Codes 42469 () Reason For Exam Shortness of breath Report PORTABLE CHEST Clinical indication: Shortness of breath Comparison: 05/12/2020. Chest tubes are no longer identified. Sternotomy wires are unchanged. Cardiac silhouette is unchanged in size. Patient is rotated towards the right. There is mild atelectasis bilaterally. No pleural effusions are noted. No pneumothorax is identified. IMPRESSION: Interval removal of chest tubes with no pneumothorax Mild atelectasis Report Dictated on --- Final --- Dictated: 05/13/2020 5:39 am Dictating Physician: MD GOLDBERG DIANE Signed Date and Time: 05/13/2020 5:40 am Signed by: MD GOLDBERG DIANE Transcribed Date and Time: 05/13/2020 5:39 [place] Patient Name: ASCENCION MONTOYA ---Diagnostic Radiology--- Exam Date/Time 05/13/2020 05:28:43 EDT Exam CR Chest Portable Ordering Physician JEAN CLAUDE KILLIAN Accession Number [id number] CPT4 Codes 73327 () Reason For Exam Shortness of breath Report PORTABLE CHEST Clinical indication: Shortness of breath Comparison: 05/12/2020. Chest tubes are no longer identified. Sternotomy wires are unchanged. Cardiac silhouette is unchanged in size. Patient is rotated towards the right. There is mild atelectasis bilaterally. No pleural effusions are noted. No pneumothorax is identified. IMPRESSION: Interval removal of chest tubes with no pneumothorax Mild atelectasis Report Dictated on --- Final --- Dictated: 05/13/2020 5:39 am Dictating Physician: MD GOLDBERG DIANE Signed Date and Time: 05/13/2020 5:40 am Signed by: MD GOLDBERG DIANE Transcribed Date and Time: 05/13/2020 5:39 [place], [place] Basic Metabolic Panelon 04-29 Anion gap [Moles/Vol] 9 Normal [facility] Comment on above: Performed By: #### KIARA Finnegan3 #### [address] [address] Calcium [Mass/Vol] 9.2 mg/dL Normal 8.4-10.4 [facility] Comment on above: Performed By: #### KIARA Finnegan3 #### [address] CO2 [Moles/Vol] 27 mmol/L Normal 22-30 [facility] Comment on above: Performed By: #### M G3, BMP3 #### [facility] [address], [place] Glucose [Mass/Vol] 286 mg/dL High 70-100 [facility] Comment on above: Performed By: #### M G3, BMP3 #### [facility] [address], [place] Urea nitrogen [Mass/Vol] 24 mg/dL High 7-20 [facility] Comment on above: Performed By: #### M G3, BMP3 #### [facility] [address], [place] Creatinine [Mass/Vol] 0.90 mg/dL Normal 0.52-1.25 [facility] Comment on above: Performed By: #### Sandie G3, BMP3 #### [facility] [address], [place] GFR/1.73 sq M predicted among blacks MDRD (S/P/Bld) [Vol rate/Area] mL/min/{1.73_m2} Normal >60 [facility] Comment on above: Performed By: #### M G3, BMP3 #### [facility] [address], [place] GFR/1.73 sq M predicted among non-blacks MDRD (S/P/Bld) [Vol rate/Area] 85.2 mL/min/{1.73_m2} Normal >60 [facility] Comment on above: Result Comment: KDIG O guidelines provide the following GFR categories: Stage GFR(ml/min/1.73 m2) Terms G1 >=90 Normal or high G2 60-89 Mildly decreased* G3a 45-59 Mildly to moderately decreased G3b 30-44 Moderately to severely decreased G4 15-29 Severely decreased G5 <15 Kidney failure *Relative to young adult level. In the absence of evidence of kidney damage, neither GFR category G1 nor G2 fulfill the criteria for CKD. The CKD-EPI equation is validated in individuals 18 years of age and older. Currently the best equation for estimating glomerular filtration rate (GFR) from serum creatinine in children is the Bedside Garza equation. It is less accurate in patients with extremes of muscle mass, restriction of dietary protein, ingestion of creatine, extra-renal metabolism of creatinine, or treatment with medications that affect renal tubular creatinine secretion. Performed By: #### M Jordyn BMP3 #### [facility] [address] [place] [address] Potassium [Moles/Vol] 4.3 mmol/L Normal 3.5-5.1 [facility] Comment on above: Performed By: #### M Jordyn, BMP3 #### [facility] [address] [place] [address] Chloride [Moles/Vol] 95 mmol/L Low 98-107 [facility] Comment on above: Performed By: #### Sandie Cobb, BMP3 #### [facility] [address] [place] [address] Sodium [Moles/Vol] 132 mmol/L Low 135-145 [facility] Comment on above: Performed By: #### Sandie Cobb, BMP3 #### [facility] [address] [place] [address] Anion gap [Moles/Vol] 9 mmol/L [place], [place] Calcium [Mass/Vol] 9.2 mg/dL 8.4 - 10. 4 mg/dL [place] Chloride [Moles/Vol] 95 mmol/L Low 98 - 10 7 mmol/L [place] CO2 [Moles/Vol] 27 mmol/L 22 - 30 mmol/L [place] Creatinine [Mass/Vol] 0.9 mg/dL 0.52 - 1.25 mg/dL [place] EGFR IF NonAfrican [place] 85.2 mL/min >60 [place] Comment on above: KDIGO guidelines pro vide the following GFR categories: Stage GFR(ml/min/1.73 m2) Terms G1 >=90 Normal or high G2 60-89 Mildly decreased* G3a 45-59 Mildly to moderately decreased G3b 30-44 Moderately to severely decreased G4 15-29 Severely decreased G5 <15 Kidney failure *Relative to young adult level. In the absence of evidence of kidney damage, neither GFR category G1 nor G2 fulfill the criteria for CKD. The CKD-EPI equation is validated in individuals 18 years of age and older. Currently the best equation for estimating glomerular filtration rate (GFR) from serum creatinine in children is the Bedside Garza equation. It is less accurate in patients with extremes of muscle mass, restriction of dietary protein, ingestion of creatine, extra-renal metabolism of creatinine, or treatment with medications that affect renal tubular creatinine secretion. GFR/1.73 sq M predicted among blacks MDRD (S/P/Bld) [Vol rate/Area] mL/min/{1.73_m2} >60 mL/min [place] Glucose [Mass/Vol] 286 mg/dL High 70 - 100 mg/dL [place] Interpretation and review of laboratory results Abnormal [place] Potassium [Moles/Vol] 4.3 mmol/L 3.5 - 5.1 mmol/L [place] Sodium [Moles/Vol] 132 mmol/L Low 135 - 145 mmol/L [place] Urea nitrogen [Mass/Vol] 24 mg/dL High 7 - 20 mg/dL [place] Potassium [Moles/Vol] 3.7 mmol/L Normal 3.5-5.1 [facility] Comment on above: Performed By: #### Sandie Cobb BMP3 #### [facility] [address], [place] Calcium [Mass/Vol] 7.3 mg/dL Low 8.4-10.4 [facility] Comment on above: Performed By: #### Sandie Cobb BMP3 #### [facility] [address], [place] Glucose [Mass/Vol] 190 mg/dL High 70-100 [facility] Comment on above: Performed By: #### Sandie G3 BMP3 #### [facility] [address], [place] Anion gap [Moles/Vol] 6 Normal [facility] Comment on above: Performed By: #### Sandie G3 BMP3 #### [facility] [address] [place], [place] CO2 [Moles/Vol] 25 mmol/L Normal 22-30 [facility] Comment on above: Performed By: #### M G3, BMP3 #### [facility] [address], [place] Creatinine [Mass/Vol] 0.89 mg/dL Normal 0.52-1.25 [facility] Comment on above: Performed By: #### M G3, BMP3 #### [facility] [address], [place] GFR/1.73 sq M predicted among blacks MDRD (S/P/Bld) [Vol rate/Area] mL/min/{1.73_m2} Normal >60 [facility] Comment on above: Performed By: #### M G3, BMP3 #### [facility] [address], [place] GFR/1.73 sq M predicted among non-blacks MDRD (S/P/Bld) [Vol rate/Area] 85.6 mL/min/{1.73_m2} Normal >60 [facility] Comment on above: Result Comment: KDIG O guidelines provide the following GFR categories: Stage GFR(ml/min/1.73 m2) Terms G1 >=90 Normal or high G2 60-89 Mildly decreased* G3a 45-59 Mildly to moderately decreased G3b 30-44 Moderately to severely decreased G4 15-29 Severely decreased G5 <15 Kidney failure *Relative to young adult level. In the absence of evidence of kidney damage, neither GFR category G1 nor G2 fulfill the criteria for CKD. The CKD-EPI equation is validated in individuals 18 years of age and older. Currently the best equation for estimating glomerular filtration rate (GFR) from serum creatinine in children is the Bedside Garza equation. It is less accurate in patients with extremes of muscle mass, restriction of dietary protein, ingestion of creatine, extra-renal metabolism of creatinine, or treatment with medications that affect renal tubular creatinine secretion. Performed By: #### M G3, BMP3 #### [facility] [address], [place] Urea nitrogen [Mass/Vol] 23 mg/dL High 7-20 [facility] Comment on above: Performed By: #### M G3, BMP3 #### [facility] [address], [place] Chloride [Moles/Vol] 102 mmol/L Normal 98-107 [facility] Comment on above: Performed By: #### M KIARA Cobb3 #### [facility] [address], [place] Sodium [Moles/Vol] 132 mmol/L Low 135-145 [facility] Comment on above: Performed By: #### M Jordny BMP3 #### [facility] [address] [place], [place] Anion gap [Moles/Vol] 6 mmol/L [place], [place] Calcium [Mass/Vol] 7.3 mg/dL Low 8.4 - 10. 4 mg/dL [place] Chloride [Moles/Vol] 102 mmol/L 98 - 10 7 mmol/L [place] CO2 [Moles/Vol] 25 mmol/L 22 - 30 mmol/L [place] Creatinine [Mass/Vol] 0.89 mg/dL 0.52 - 1.25 mg/dL [place] EGFR IF NonAfrican [place] 85.6 mL/min >60 [place] Comment on above: KDIGO guidelines pro vide the following GFR categories: Stage GFR(ml/min/1.73 m2) Terms G1 >=90 Normal or high G2 60-89 Mildly decreased* G3a 45-59 Mildly to moderately decreased G3b 30-44 Moderately to severely decreased G4 15-29 Severely decreased G5 <15 Kidney failure *Relative to young adult level. In the absence of evidence of kidney damage, neither GFR category G1 nor G2 fulfill the criteria for CKD. The CKD-EPI equation is validated in individuals 18 years of age and older. Currently the best equation for estimating glomerular filtration rate (GFR) from serum creatinine in children is the Bedside Garza equation. It is less accurate in patients with extremes of muscle mass, restriction of dietary protein, ingestion of creatine, extra-renal metabolism of creatinine, or treatment with medications that affect renal tubular creatinine secretion. GFR/1.73 sq M predicted among blacks MDRD (S/P/Bld) [Vol rate/Area] mL/min/{1.73_m2} >60 mL/min [place] Glucose [Mass/Vol] 190 mg/dL High 70 - 100 mg/dL [place] Interpretation and review of laboratory results Abnormal [place] Potassium [Moles/Vol] 3.7 mmol/L 3.5 - 5.1 mmol/L [place] Sodium [Moles/Vol] 132 mmol/L Low 135 - 145 mmol/L [place] Urea nitrogen [Mass/Vol] 23 mg/dL High 7 - 20 mg/dL [place] CBCon 05-12-2020 Erythrocyte distribution width (RBC) [Ratio] 12.9 % 11.5 - 14.5 % [place] Hematocrit (Bld) [Volume fraction] 20.8 % Low 40 - 52 % [place] Hemoglobin (Bld) [Mass/Vol] 7.3 g/dL Low 13 - 18 g/dL [place] Interpretation and review of laboratory results Abnormal [place] MCH (RBC) [Entitic mass] 31.4 pg 26 - 34 pg [place] MCHC (RBC) [Mass/Vol] 35.2 % 32 - 36 % [place] MCV (RBC) [Entitic vol] 89.3 fL 80 - 98 fL [place] Platelet mean volume (Bld) [Entitic vol] 8.7 fL 7.4 - 10.4 fL [place] Platelets (Bld) [#/Vol] 98 10*3/uL Low 140 - 440 10*3/uL [place] RBC (Bld) [#/Vol] 2.33 10*6/uL Low 4.4 - 5.9 10*6/uL [place] WBC (Bld) [#/Vol] 4.8 10*3/uL 3.6 - 10.7 10*3/uL [place] Test Performed by [facility], [address] [place] [address] [place] CR Chest Portableon 05-12-20 20 CR Chest Portable Patient Name: ASCENCION MONTOYA Diagnostic Radiology Exam Date/Time 05/12/2020 05:52:32 EDT Exam CR Chest Portable Ordering Physician KILLIANJEAN CLAUDE ASTUDILLO Accession Number [id number] CPT4 Codes 71095 () Reason For Exam Shortness of breath Report CLINICAL INFORMATION: CABG. Chest tubes. Portable view of the chest at 0510 hours is provided and compared to a previous study dated May 11, 2020. FINDINGS: An introducer sheath is in place via the right internal jugular vein. The patient is status post CABG. The heart size is normal. Mediastinal and right-sided chest tubes are in place. There is no pneumothorax. IMPRESSION: 1. Postoperative changes (CABG). 2. Chest tubes without pneumothorax. Report Dictated on Workstation: [id number] Final Dictated: 05/12/2020 6:17 am Dictating Physician: MD DANIELS JEFFREY Signed Date and Time: 05/12/2020 6:20 am Signed by: MD DANIELS JEFFREY Transcribed Date and Time: 05/12/2020 6:17 Normal [facility] Calcium, Ionizedon 0 Interpretation and review of laboratory results Abnormal [place] Ionized Ca 3.80 mg/dL Low 4.3 - 5.2 mg/dL [place] pH (Bld) 7.54 [pH] High [place] Test Performed by [facility], [address] [place] [address] [place] Calcium,Ionizedon 05-12-2020 Ionized Ca,Measured 3.80 mg/dL Low 4.30-5.20 [facility] Comment on above: Performed By: #### B MP3, PHOS3, HEMOG, PT/AP, MG3 #### [address] [address] [place] [address] pH, Ionized Calcium 7.54 High 7.31-7.46 [facility] Comment on above: Performed By: #### B MP3, PHOS3, HEMOG, PT/AP, MG3 #### [address] [address] [place] [address] Glucose,Bedsideon 05-12-2020 Glucose [Mass/Vol] 195 mg/dL High 70-100 [facility] Comment on above: Result Comment: Test performed by glucose meter. Results may be 10%-15% lower than serum/plasma values. (CLIA ID [id number]) Performed By: #### B MP3, PHOS3, HEMOG, PT/AP, MG3 #### [facility] [address] [place] [address] Glucose [Mass/Vol] 245 mg/dL High 70-100 [facility] Comment on above: Result Comment: Test performed by glucose meter. Results may be 10%-15% lower than serum/plasma values. (CLIA ID [id number]) Performed By: #### B GLU #### [place] [place] [address] Glucose [Mass/Vol] 217 mg/dL High 70-100 [facility] Comment on above: Result Comment: Test performed by glucose meter. Results may be 10%-15% lower than serum/plasma values. (CLIA ID [id number]) Performed By: #### B GLU #### [address] [place] [address] Glucose [Mass/Vol] 245 mg/dL High 70-100 [facility] Comment on above: Result Comment: Test performed by glucose meter. Results may be 10%-15% lower than serum/plasma values. (CLIA ID [id number]) Performed By: #### M G3, BMP3 #### [address] [place] [address] Glucose [Mass/Vol] 192 mg/dL High 70-100 [facility] Comment on above: Result Comment: Test performed by glucose meter. Results may be 10%-15% lower than serum/plasma values. (CLIA ID [id number]) Performed By: #### M G3, BMP3 #### [address] [place] [address] Hemoglobinon 05-12-2020 Hemoglobin (Bld) [Mass/Vol] 8.4 g/dL Low 13.0-18.0 [facility] Comment on above: Performed By: #### B MP3, PHOS3, HEMOG, PT/AP, MG3 #### [facility] [address], [place] Hemoglobin (Bld) [Mass/Vol] 8.4 g/dL Low 13 - 18 g/dL [place], [place] Interpretation and review of laboratory results Abnormal [place] Test Performed by [facility], [address], [place] [address] [place], [place] Hemogramon 05-12-2020 Erythrocyte distribution width (RBC) [Ratio] 12.9 % Normal 11.5-14.5 [facility] Comment on above: Performed By: #### M G3, BMP3 #### [address] [address] [place], [place] Hematocrit (Bld) [Volume fraction] 20.8 % Low 40.0-52.0 [facility] Comment on above: Performed By: #### M G3, BMP3 #### [address] [place], [place] Hemoglobin (Bld) [Mass/Vol] 7.3 g/dL Low 13.0-18.0 [facility] Comment on above: Performed By: #### M G3, BMP3 #### [address], [place] MCH (RBC) [Entitic mass] 31.4 pg Normal 26.0-34.0 [facility] Comment on above: Performed By: #### M G3, BMP3 #### [address], [place] MCHC (RBC) [Mass/Vol] 35.2 % Normal 32.0-36.0 [facility] Comment on above: Performed By: #### M G3, BMP3 #### [address], [place] MCV (RBC) [Entitic vol] 89.3 fL Normal 80.0-98.0 [facility] Comment on above: Performed By: #### M G3, BMP3 #### [address] [address] [place], [place] Platelet mean volume (Bld) [Entitic vol] 8.7 fL Normal 7.4-10.4 [facility] Comment on above: Performed By: #### Sandie G3, BMP3 #### [facility] [address], [place] Platelets (Bld) [#/Vol] 98 10*3/uL Low 140-440 [facility] Comment on above: Performed By: #### Sandie G3, BMP3 #### [facility] [address], [place] RBC (Bld) [#/Vol] 2.33 10*6/uL Low 4.40-5.90 [facility] Comment on above: Performed By: #### Sandie G3, BMP3 #### [facility] [address], [place] WBC (Bld) [#/Vol] 4.8 10*3/uL Normal 3.6-10.7 [facility] Comment on above: Performed By: #### Sandie G3, BMP3 #### [address], [place] Leukodepleted Red Cellson Leukodepleted Red Cells Leukodepleted Red Cells: [id number] transfused 05/12/20 02:50 JMV Unit Blood Type: O Unit Blood Rh: NEG Blood Product Code: LP1 Unit Number: [id number] Unit Status: transfused Barcoded Unit Number: =[id number] Barcoded Product Code: = Barcoded ABO/Rh: =%9500 Unit Expiration: Unit Volume Transfused: 300 Unit Transfusion Start Date/Time: Normal [facility] Comment on above: Performed By: #### Sandie G3, BMP3 #### [facility] [address], [place] Magnesiumon 05-12-2020 Magnesium [Mass/Vol] 1.8 mg/dL Normal 1.6-2.3 [facility] Comment on above: Performed By: #### Sandie G3, BMP3 #### [address], [place] Magnesium [Mass/Vol] 1.8 mg/dL 1.6 - 2 .3 mg/dL [facility], [place] Magnesium [Mass/Vol] 1.7 mg/dL Normal 1.6-2.3 [facility] Comment on above: Performed By: #### M [address] #### [facility] [address] [place] [address] Magnesium [Mass/Vol] 1.7 mg/dL 1.6 - 2 .3 mg/dL [facility] [place], [place] Otheron 05-12-2020 Test Performed by [facility], [facility] [address] [facility] [place] [place] [address] [facility], [place] Test Performed by [facility], [facility] [address] [facility], [place] POCT Glucoseon 05-12-2020 Glucose [Mass/Vol] 195 mg/dL High 70 - 100 mg/dL [facility], [place] Comment on above: Test performed by gl ucose meter. Results may be 10%-15% lower than serum/plasma values. (CLIA ID [id number]) Interpretation and review of laboratory results Abnormal [facility] [place], [place] Test Performed by [facility], [facility] [address] [facility] [place] Glucose [Mass/Vol] 245 mg/dL High 70 - 100 mg/dL [facility], [place] Comment on above: Test performed by gl ucose meter. Results may be 10%-15% lower than serum/plasma values. (CLIA ID [id number]) Interpretation and review of laboratory results Abnormal [facility] [place] Test Performed by [facility], [facility] [place] [address] [facility], [place] Glucose [Mass/Vol] 217 mg/dL High 70 - 100 mg/dL [facility], [place] Comment on above: Test performed by gl ucose meter. Results may be 10%-15% lower than serum/plasma values. (CLIA ID [id number]) Interpretation and review of laboratory results Abnormal [facility] [place] [place] Test Performed by [facility], [address] [place] [address] [facility] [place], [place] Glucose [Mass/Vol] 245 mg/dL High 70 - 100 mg/dL [place], [place] Comment on above: Test performed by gl ucose meter. Results may be 10%-15% lower than serum/plasma values. (CLIA ID [id number]) Interpretation and review of laboratory results Abnormal [place] Test Performed by [facility], [facility] [place], [place] [id number] [place] [address] Glucose [Mass/Vol] 192 mg/dL High 70 - 100 mg/dL [place] Comment on above: Test performed by gl ucose meter. Results may be 10%-15% lower than serum/plasma values. (CLIA ID [id number]) Interpretation and review of laboratory results Abnormal [place] Test Performed by [facility], [address] [place] [address] PREPARE RBC (CROSSMATCH), 1 Unitson 05-12-2020 ABO and Rh group Nom (Bld) 9500 [place], [place] Blood product unit ID (Dose) [#] [id number] [place] Sodium [Moles/Vol] [id number] mmol/L [place], [place] Sodium [Moles/Vol] transfused [place] Sodium [Moles/Vol] [id number] [place], [place] Prothrombin Timeon 0 INR Coag (PPP) [Relative time] 1.3 High 0.9-1.1 [facility] Comment on above: Result Comment: Naeem mmended Anticoagulant Therapy: SEE BELOW ----- INR of 2.0 - 3.0 : - Prophylaxis of Venous Thrombosis (high-risk surgery) - Treatment of Venous Thrombosis - Treatment of Pulmonary Embolism (Includes tissue heart valves, Acute Myocardial Infarction to prevent systemic embolism, Valvular Heart Disease, and Atrial Fibrillation) ----- INR of 2.5 - 3.5 : - Mechanical Prosthetic Valves (high risk) - If oral anticoagulant therapy is used to prevent Myocardial Infarction Performed By: #### M G3, BMP3 #### [facility] [address] [place] [address] PT Coag (PPP) [Time] 14.4 s High 9.0-12.0 [facility] Comment on above: Result Comment: . Performed By: #### M [facility] BMP3 #### [address] [address] Protime-INRon 05-12-2020 INR Coag (PPP) [Relative time] 1.3 {INR} High [place], [place] Comment on above: Recommended Anticoag ulant Therapy: SEE BELOW ----- INR of 2.0 - 3.0 : - Prophylaxis of Venous Thrombosis (high-risk surgery) - Treatment of Venous Thrombosis - Treatment of Pulmonary Embolism (Includes tissue heart valves, Acute Myocardial Infarction to prevent systemic embolism, Valvular Heart Disease, and Atrial Fibrillation) ----- INR of 2.5 - 3.5 : - Mechanical Prosthetic Valves (high risk) - If oral anticoagulant therapy is used to prevent Myocardial Infarction Interpretation and review of laboratory results Abnormal [place], [place] PT Coag (PPP) [Time] 14.4 s High 9 - 12 s [place], [place] Comment on above: . Test Performed by [facility], [address] [place] [id number] [place] [address] Surgical Pathologyon 020 Sodium [Moles/Vol] SEE BELOW [place], [place] [phone] [id number] [facility] PATHOLOGY AND LABORATORY MEDICINE [address] [place] [address] FINAL SURGICAL PATHOLOGY REPORT NAME: ASCENCION WEIR : 1950 69 Y M BILLING NO.: [id number] LOCATION[facility] [id number] PROCEDURE 05/08/2020 DATE: SURGEON: JEAN CLAUDE KILLIAN M.D. RECEIVED 05/09/2020 DATE: ATTENDING: JEAN CLAUDE KILLIAN M.D. REPORT DATE: 05/12/2020 COPIES TO: DIAGNOSIS: AORTIC VALVE LEAFLETS, EXCISION - VALVULAR TISSUE WITH PROMINENT CALCIFICATION AND FIBROSIS Comment: Negative for acute inflammation. JAW/JAW Signature> KARINE BOUCHER M.D. CLINICAL INFORMATION: I25.10, I35.0 SPECIMEN: HEART VALVE GROSS DESCRIPTION: Received in formalin labeled aortic valve leaflets are two valve leaflets measuring 2.5 and 4 cm along the free edge and ranging from 1.3 to 1.5 cm free edge to base. Lambl's excrescences are present. The larger segment contains a median raphe. The leaflets show extensive fibrosis and calcifications. Possible fenestrations are present. Random sections are submitted in a single cassette. JCK/JAF Disclaimer: The following statement applies to all immunohistochemistry, in situ hybridization, molecular studies, and immunofluorescence testing. The use of one or more reagents in the above tests is regulated as an analyte specific reagent (ASR). These tests were developed and their performance characteristics determined by the clinical laboratories of [facility]. They have not been cleared by the US Food and Drug Administration (FDA). The FDA has determined that such clearance or approval is not necessary. All the above immunostains were performed on paraffin embedded tissue. Appropriate positive and negative controls (where applicable) were run in parallel with the patient's specimen; these controls showed expected staining pattern, with acceptable intensity of staining. Immunohistochemical assays have not been validated on decalcified tissues. Results should be interpreted with caution given the raised possibility of false negativity on decalcified specimens. Professional Performing Location: [address] [address]. DEPARTMENT OF PATHOLOGY AND LABORATORY MEDICINE [place], [place] [address] [place], [place] XR CHEST PORTABLEon 05-12-20 [facility] Incoming Radiology Results From [facility] - 05/12/2020 6:21 AM EDT Patient Name: ASCENCION WEIR ---Diagnostic Radiology--- Exam Date/Time 05/12/2020 05:52:32 EDT Exam CR Chest Portable Ordering Physician JEAN CLAUDE KILLIAN Accession Number [id number] CPT4 Codes 66296 () Reason For Exam Shortness of breath Report CLINICAL INFORMATION: CABG. Chest tubes. Portable view of the chest at 0510 hours is provided and compared to a previous study dated May 11, 2020. FINDINGS: An introducer sheath is in place via the right internal jugular vein. The patient is status post CABG. The heart size is normal. Mediastinal and right-sided chest tubes are in place. There is no pneumothorax. IMPRESSION: 1. Postoperative changes (CABG). 2. Chest tubes without pneumothorax. Report Dictated on Workstation: [id number] --- Final --- Dictated: 05/12/2020 6:17 am Dictating Physician: MD DANIELS JEFFREY Signed Date and Time: 05/12/2020 6:20 am Signed by: MD DANIELS JEFFREY Transcribed Date and Time: 05/12/2020 6:17 [place], [place] Patient Name: ASCENCION MONTOYA ---Diagnostic Radiology--- Exam Date/Time 05/12/2020 05:52:32 EDT Exam CR Chest Portable Ordering Physician JEAN CLAUDE KILLIAN Accession Number [id number] CPT4 Codes 34689 () Reason For Exam Shortness of breath Report CLINICAL INFORMATION: CABG. Chest tubes. Portable view of the chest at 0510 hours is provided and compared to a previous study dated May 11, 2020. FINDINGS: An introducer sheath is in place via the right internal jugular vein. The patient is status post CABG. The heart size is normal. Mediastinal and right-sided chest tubes are in place. There is no pneumothorax. IMPRESSION: 1. Postoperative changes (CABG). 2. Chest tubes without pneumothorax. Report Dictated on Workstation: [id number] --- Final --- Dictated: 05/12/2020 6:17 am Dictating Physician: MD DANIELS JEFFREY Signed Date and Time: 05/12/2020 6:20 am Signed by: MD DANIELS JEFFREY Transcribed Date and Time: 05/12/2020 6:17 [place], [place] Basic Metabolic Panelon 04-29 Calcium [Mass/Vol] 8.4 mg/dL Normal 8.4-10.4 [facility] Comment on above: Performed By: #### Sandie G3, BMP3 #### [facility] [address], [place] Anion gap [Moles/Vol] 6 Normal [facility] Comment on above: Performed By: #### Sandie G3, BMP3 #### [facility] [address], [place] CO2 [Moles/Vol] 27 mmol/L Normal 22-30 [facility] Comment on above: Performed By: #### Sandie G3, BMP3 #### [facility] [address], [place] Creatinine [Mass/Vol] 0.96 mg/dL Normal 0.52-1.25 [facility] Comment on above: Performed By: #### Sandie G3, BMP3 #### [facility] [address], [place] GFR/1.73 sq M predicted among blacks MDRD (S/P/Bld) [Vol rate/Area] mL/min/{1.73_m2} Normal >60 [facility] Comment on above: Performed By: #### Sandie G3, BMP3 #### [facility] [address], [place] GFR/1.73 sq M predicted among non-blacks MDRD (S/P/Bld) [Vol rate/Area] 78.8 mL/min/{1.73_m2} Normal >60 [facility] Comment on above: Result Comment: KDIG O guidelines provide the following GFR categories: Stage GFR(ml/min/1.73 m2) Terms G1 >=90 Normal or high G2 60-89 Mildly decreased* G3a 45-59 Mildly to moderately decreased G3b 30-44 Moderately to severely decreased G4 15-29 Severely decreased G5 <15 Kidney failure *Relative to young adult level. In the absence of evidence of kidney damage, neither GFR category G1 nor G2 fulfill the criteria for CKD. The CKD-EPI equation is validated in individuals 18 years of age and older. Currently the best equation for estimating glomerular filtration rate (GFR) from serum creatinine in children is the Bedside Garza equation. It is less accurate in patients with extremes of muscle mass, restriction of dietary protein, ingestion of creatine, extra-renal metabolism of creatinine, or treatment with medications that affect renal tubular creatinine secretion. Performed By: #### Sandie Cobb BMP3 #### [facility] [address], [place] Glucose [Mass/Vol] 174 mg/dL High 70-100 [facility] Comment on above: Performed By: #### Sandie Cobb BMP3 #### [facility] [address] [place] [address] Urea nitrogen [Mass/Vol] 24 mg/dL High 7-20 [facility] Comment on above: Performed By: #### Sandie Cobb, BMP3 #### [address] [place] [address] Chloride [Moles/Vol] 97 mmol/L Low 98-107 [facility] Comment on above: Performed By: #### Sandie Cobb, BMP3 #### [facility] [address], [place] Potassium [Moles/Vol] 4.4 mmol/L Normal 3.5-5.1 [facility] Comment on above: Performed By: #### Sandie Cobb, BMP3 #### [address], [place] Sodium [Moles/Vol] 130 mmol/L Low 135-145 [facility] Comment on above: Performed By: #### Sandie Cobb, BMP3 #### [facility] [address] [place] [address] Anion gap [Moles/Vol] 6 mmol/L [place], [place] Calcium [Mass/Vol] 8.4 mg/dL 8.4 - 10. 4 mg/dL [place] Chloride [Moles/Vol] 97 mmol/L Low 98 - 10 7 mmol/L [place] CO2 [Moles/Vol] 27 mmol/L 22 - 30 mmol/L [place] Creatinine [Mass/Vol] 0.96 mg/dL 0.52 - 1.25 mg/dL [place] EGFR IF NonAfrican [place] 78.8 mL/min >60 [place] Comment on above: KDIGO guidelines pro vide the following GFR categories: Stage GFR(ml/min/1.73 m2) Terms G1 >=90 Normal or high G2 60-89 Mildly decreased* G3a 45-59 Mildly to moderately decreased G3b 30-44 Moderately to severely decreased G4 15-29 Severely decreased G5 <15 Kidney failure *Relative to young adult level. In the absence of evidence of kidney damage, neither GFR category G1 nor G2 fulfill the criteria for CKD. The CKD-EPI equation is validated in individuals 18 years of age and older. Currently the best equation for estimating glomerular filtration rate (GFR) from serum creatinine in children is the Bedside Garza equation. It is less accurate in patients with extremes of muscle mass, restriction of dietary protein, ingestion of creatine, extra-renal metabolism of creatinine, or treatment with medications that affect renal tubular creatinine secretion. GFR/1.73 sq M predicted among blacks MDRD (S/P/Bld) [Vol rate/Area] mL/min/{1.73_m2} >60 mL/min [place] Glucose [Mass/Vol] 174 mg/dL High 70 - 100 mg/dL [place] Interpretation and review of laboratory results Abnormal [place] Potassium [Moles/Vol] 4.4 mmol/L 3.5 - 5.1 mmol/L [place] Sodium [Moles/Vol] 130 mmol/L Low 135 - 145 mmol/L [place] Urea nitrogen [Mass/Vol] 24 mg/dL High 7 - 20 mg/dL [place] CBC Auto Differentialon 04-29 Absolute Baso # 0.0 10*3/uL 0 - 0.2 10*3/uL [place] Absolute Neut # 3.9 10*3/uL 1.8 - 7 10*3/uL [place] Basophils/100 WBC (Bld) 0.6 % 0 - 2 % [place] Eosinophils (Bld) [#/Vol] 0.2 10*3/uL 0 - 0.5 10*3/uL [place] Eosinophils/100 WBC (Bld) 3.6 % 1 - 6 % [place] Erythrocyte distribution width (RBC) [Ratio] 13.0 % 11.5 - 14.5 % [place] Granulocytes/100 WBC (Bld) 69.3 % 40 - 80 % [place] Hematocrit (Bld) [Volume fraction] 20.2 % Low 40 - 52 % [place] Hemoglobin (Bld) [Mass/Vol] 7.3 g/dL Low 13 - 18 g/dL [place] Interpretation and review of laboratory results Abnormal [place] Lymphocytes (Bld) [#/Vol] 0.8 10*3/uL Low 1 - 4.3 10*3/uL [place] Lymphocytes/100 WBC (Bld) 14.8 % Low 20 - 40 % [place] MCH (RBC) [Entitic mass] 31.9 pg 26 - 34 pg [place] MCHC (RBC) [Mass/Vol] 36.0 % 32 - 36 % [place], [place] MCV (RBC) [Entitic vol] 88.8 fL 80 - 98 fL [place] Monocytes (Bld) [#/Vol] 0.7 10*3/uL 0 - 0.8 10*3/uL [place], [place] Monocytes/100 WBC (Bld) 11.7 % High 2 - 10 % [place] Platelet mean volume (Bld) [Entitic vol] 8.2 fL 7.4 - 10.4 fL [place] Platelets (Bld) [#/Vol] 85 10*3/uL Low 140 - 440 10*3/uL [place] RBC (Bld) [#/Vol] 2.27 10*6/uL Low 4.4 - 5.9 10*6/uL [place] WBC (Bld) [#/Vol] 5.7 10*3/uL 3.6 - 10.7 10*3/uL [place] Test Performed by [facility], [address] [place] [address] [place] CR Chest Portableon 05-11-20 20 CR Chest Portable Patient Name: ASCENCION MONTOYA Diagnostic Radiology Exam Date/Time 05/11/2020 08:12:25 EDT Exam CR Chest Portable Ordering Physician JEAN CLAUDE KILLIAN Accession Number [id number] CPT4 Codes 14518 () Reason For Exam Shortness of breath Report Indication: Shortness of breath. A frontal view of the chest timed 0755 is compared to the study dated 05/10/2020. Again identified are sternotomy wires and mediastinal vascular clips. It appears that the mediastinal drain has been removed. The right-sided chest tube remains in place. No sizable pneumothorax is seen. The heart is unchanged in size. The mediastinum is unchanged in appearance. There has been improvement in the previously seen mild pulmonary vascular congestion and mild bilateral pulmonary interstitial edema. There our new left lower lung infiltrates/atelectatic changes and small left pleural effusion. There are unchanged atelectatic changes in the right lung base. Follow-up is recommended. Report Dictated on Final Dictated: 05/11/2020 9:26 am Dictating Physician: DO FERNANDO ANTHONY Signed Date and Time: 05/11/2020 9:27 am Signed by: DO FERNANDO ANTHONY Transcribed Date and Time: 05/11/2020 9:26 Normal [facility] Glucose,Bedsideon 05-11-2020 Glucose [Mass/Vol] 209 mg/dL High 70-100 [facility] Comment on above: Result Comment: Test performed by glucose meter. Results may be 10%-15% lower than serum/plasma values. (CLIA ID [id number]) Performed By: #### Sandie G3, BMP3 #### [facility] [address], [place] Glucose [Mass/Vol] 215 mg/dL High 70-100 [facility] Comment on above: Result Comment: Test performed by glucose meter. Results may be 10%-15% lower than serum/plasma values. (CLIA ID [id number]) Performed By: #### Sandie Cobb, BMP3 #### [facility] [address], [place] Glucose [Mass/Vol] 199 mg/dL High 70-100 [place] Comment on above: Test performed by gl ucose meter. Results may be 10%-15% lower than serum/plasma values. (CLIA ID [id number]) Result Comment: Test performed by glucose meter. Results may be 10%-15% lower than serum/plasma values. (CLIA ID [id number]) Performed By: #### Sandie Cobb, BMP3 #### [facility] [address], [place] Hematologyon 05-11-2020 ABO and Rh group Nom (Bld) 9500 [place] Hemogram w/ Autodiffon 05-11 Abs Baso Cnt 0.0 10*3/uL Normal 0.0-0.2 [facility] Comment on above: Performed By: #### Sandie Cobb, BMP3 #### [facility] [address], [place] Abs Neutrophile Cnt 3.9 10*3/uL Normal 1.8-7.0 [facility] Comment on above: Performed By: #### Sandie Cobb, BMP3 #### [facility] [address], [place] Basophils/100 WBC (Bld) 0.6 % Normal 0.0-2.0 [facility] Comment on above: Performed By: #### Sandie Cobb, BMP3 #### [facility] [address], [place] Eosinophils (Bld) [#/Vol] 0.2 10*3/uL Normal 0.0-0.5 [facility] Comment on above: Performed By: #### Sandie G3, BMP3 #### [facility] [address] [place] [address] Eosinophils/100 WBC (Bld) 3.6 % Normal 1.0-6.0 [facility] Comment on above: Performed By: #### Sandie G3, BMP3 #### [facility] [address], [place] Erythrocyte distribution width (RBC) [Ratio] 13.0 % Normal 11.5-14.5 [facility] Comment on above: Performed By: #### Sandie G3, BMP3 #### [facility] [address] [place], [place] Granulocytes/100 WBC (Bld) 69.3 % Normal 40.0-80.0 [facility] Comment on above: Performed By: #### Sandie G3, BMP3 #### [facility] [address] [place] Hematocrit (Bld) [Volume fraction] 20.2 % Low 40.0-52.0 [facility] Comment on above: Performed By: #### Sandie G3, BMP3 #### [facility] [address] [place] Hemoglobin (Bld) [Mass/Vol] 7.3 g/dL Low 13.0-18.0 [facility] Comment on above: Performed By: #### Sandie G3, BMP3 #### [facility] [place] [place], [place] Lymphocytes (Bld) [#/Vol] 0.8 10*3/uL Low 1.0-4.3 [facility] Comment on above: Performed By: #### Sandie G3, BMP3 #### [facility] [place], [place] Lymphocytes/100 WBC (Bld) 14.8 % Low 20.0-40.0 [facility] Comment on above: Performed By: #### Sandie G3, BMP3 #### [facility] [place] MCH (RBC) [Entitic mass] 31.9 pg Normal 26.0-34.0 [facility] Comment on above: Performed By: #### Sandie G3, BMP3 #### [facility] [address] [place], [place] MCHC (RBC) [Mass/Vol] 36.0 % Normal 32.0-36.0 [facility] Comment on above: Performed By: #### Sandie G3, BMP3 #### [address] [address] [place] [place], [place] MCV (RBC) [Entitic vol] 88.8 fL Normal 80.0-98.0 [facility] Comment on above: Performed By: #### Sandie G3, BMP3 #### [address] [address] [place], [place] Monocytes (Bld) [#/Vol] 0.7 10*3/uL Normal 0.0-0.8 [facility] Comment on above: Performed By: #### Sandie G3, BMP3 #### [address] [address] [place], [place] Monocytes/100 WBC (Bld) 11.7 % High 2.0-10.0 [facility] Comment on above: Performed By: #### Sandie G3, BMP3 #### [address] [address] [place], [place] Platelet mean volume (Bld) [Entitic vol] 8.2 fL Normal 7.4-10.4 [facility] Comment on above: Performed By: #### Sandie G3, BMP3 #### [address] [address] [place], [place] Platelets (Bld) [#/Vol] 85 10*3/uL Low 140-440 [facility] Comment on above: Performed By: #### Sandie G3, BMP3 #### [address] [address] [place], [place] RBC (Bld) [#/Vol] 2.27 10*6/uL Low 4.40-5.90 [facility] Comment on above: Performed By: #### M G3, BMP3 #### [address] [address] [place] [address] WBC (Bld) [#/Vol] 5.7 10*3/uL Normal 3.6-10.7 [facility] Comment on above: Performed By: #### Sandie Cobb BMP3 #### [address] [address] [place] [address] Leukodepleted Red Cellson Leukodepleted Red Cells Leukodepleted Red Cells: [id number] transfused 05/11/20 11:35 JMV Unit Blood Type: O Unit Blood Rh: NEG Blood Product Code: AS1 Unit Number: [id number] Unit Status: transfused Barcoded Unit Number: =[id number] Barcoded Product Code: = Barcoded ABO/Rh: =%9500 Unit Expiration: Unit Volume Transfused: 300 Unit Transfusion Start Date/Time: [facility] Comment on above: Performed By: #### KIARA Finnegan3 #### [address] [address] [place] [address] Leukodepleted Red Cells Leukodepleted Red Cells: [id number] released 05/11/20 05:07 BRS Unit Blood Type: O Unit Blood Rh: NEG Blood Product Code: LP2 Unit Number: [id number] Unit Status: released Barcoded Unit Number: =[id number] Barcoded Product Code: = Barcoded ABO/Rh: =%9500 Unit Expiration: Leukodepleted Red Cells: [id number] released 05/11/20 05:07 BRS Unit Blood Type: O Unit Blood Rh: NEG Blood Product Code: LP1 Unit Number: [id number] Unit Status: released Barcoded Unit Number: =[id number] Barcoded Product Code: = Barcoded ABO/Rh: =%9500 Unit Expiration: [facility] Comment on above: Performed By: #### Sandie Cobb BMP3 #### [address] [address] [place] [address] Magnesiumon 05-11-2020 Magnesium [Mass/Vol] 1.9 mg/dL Normal 1.6-2.3 [facility] Comment on above: Performed By: #### [address] #### [address] [address] [place] [address] Magnesium [Mass/Vol] 1.9 mg/dL 1.6 - 2 .3 mg/dL [place], [place] Metabolic Panelon 05-11-2020 Sodium [Moles/Vol] Negative [place], [place] Sodium [Moles/Vol] [id number] mmol/L [place], [place] Sodium [Moles/Vol] released [place] Otheron 05-11-2020 Interpretation and review of laboratory results Abnormal [place], [place] Test Performed by [facility], [facility] [place], [place] [id number] [place] [address] Test Performed by [facility], [address] [place] [id number] [place] [address] POCT Glucoseon 05-11-2020 Glucose [Mass/Vol] 209 mg/dL High 70 - 100 mg/dL [place], [place] Comment on above: Test performed by gl ucose meter. Results may be 10%-15% lower than serum/plasma values. (CLIA ID [id number]) Interpretation and review of laboratory results Abnormal [place], [place] Test Performed by [facility], [address] [place] [id number] [place] [address] Glucose [Mass/Vol] 215 mg/dL High 70 - 100 mg/dL [place] Comment on above: Test performed by gl ucose meter. Results may be 10%-15% lower than serum/plasma values. (CLIA ID [id number]) Test Performed by [facility], [facility] [place] [id number] [place] [address] PREPARE RBC (CROSSMATCH), 1 Unitson 05-11-2020 ABO and Rh group Nom (Bld) 9500 [place], [place] Blood product unit ID (Dose) [#] [id number] [place] Sodium [Moles/Vol] [id number] [place] Sodium [Moles/Vol] transfused [place] Sodium [Moles/Vol] [id number] mmol/L [place], [place] PREPARE RBC (CROSSMATCH), 2 Unitson 05-11-2020 Blood product unit ID (Dose) [#] [id number] [place] Blood product unit ID (Dose) [#] [id number] [place] Sodium [Moles/Vol] [id number] [place] Sodium [Moles/Vol] [id number] [place], [place] Prothrombin Timeon 0 INR Coag (PPP) [Relative time] 1.3 High 0.9-1.1 [facility] Comment on above: Result Comment: Naeem mmended Anticoagulant Therapy: SEE BELOW ----- INR of 2.0 - 3.0 : - Prophylaxis of Venous Thrombosis (high-risk surgery) - Treatment of Venous Thrombosis - Treatment of Pulmonary Embolism (Includes tissue heart valves, Acute Myocardial Infarction to prevent systemic embolism, Valvular Heart Disease, and Atrial Fibrillation) ----- INR of 2.5 - 3.5 : - Mechanical Prosthetic Valves (high risk) - If oral anticoagulant therapy is used to prevent Myocardial Infarction Performed By: #### Sandie G3, BMP3 #### [facility] [address] [place] [address] PT Coag (PPP) [Time] 13.5 s High 9.0-12.0 [facility] Comment on above: Result Comment: . Performed By: #### Sandie G3, BMP3 #### [facility] [address] [place] [address] Protime-INRon 05-11-2020 INR Coag (PPP) [Relative time] 1.3 {INR} High [place] Comment on above: Recommended Anticoag ulant Therapy: SEE BELOW ----- INR of 2.0 - 3.0 : - Prophylaxis of Venous Thrombosis (high-risk surgery) - Treatment of Venous Thrombosis - Treatment of Pulmonary Embolism (Includes tissue heart valves, Acute Myocardial Infarction to prevent systemic embolism, Valvular Heart Disease, and Atrial Fibrillation) ----- INR of 2.5 - 3.5 : - Mechanical Prosthetic Valves (high risk) - If oral anticoagulant therapy is used to prevent Myocardial Infarction Interpretation and review of laboratory results Abnormal [place] PT Coag (PPP) [Time] 13.5 s High 9 - 12 s [place], [place] Comment on above: . Test Performed by [facility], [address] [place] [id number] [place] [address] TS GELon 05-11-2020 TS GEL ABO Group: O Rh, Gel: NEG Antibody Screen Gel: NEG Normal [facility] Comment on above: Performed By: #### M G3, BMP3 #### [address] [address] TYPE AND SCREENon 05-11-2020 Sodium [Moles/Vol] O [place], [place] XR CHEST PORTABLEon 05-11-20 20 Patient Name: ASCENCION MONTOYA ---Diagnostic Radiology--- Exam Date/Time 05/11/2020 08:12:25 EDT Exam CR Chest Portable Ordering Physician JEAN CLAUDE KILLIAN Accession Number [id number] CPT4 Codes 91717 () Reason For Exam Shortness of breath Report Indication: Shortness of breath. A frontal view of the chest timed 0755 is compared to the study dated 05/10/2020. Again identified are sternotomy wires and mediastinal vascular clips. It appears that the mediastinal drain has been removed. The right-sided chest tube remains in place. No sizable pneumothorax is seen. The heart is unchanged in size. The mediastinum is unchanged in appearance. There has been improvement in the previously seen mild pulmonary vascular congestion and mild bilateral pulmonary interstitial edema. There our new left lower lung infiltrates/atelectatic changes and small left pleural effusion. There are unchanged atelectatic changes in the right lung base. Follow-up is recommended. Report Dictated on --- Final --- Dictated: 05/11/2020 9:26 am Dictating Physician: DO FERNANDO ANTHONY Signed Date and Time: 05/11/2020 9:27 am Signed by: DO FERNANDO ANTHONY Transcribed Date and Time: 05/11/2020 9:26 [place], [place], [facility] Incoming Radiology [facility] - 05/11/2020 9:29 AM EDT Patient Name: ASCENCION WEIR ---Diagnostic Radiology--- Exam Date/Time 05/11/2020 08:12:25 EDT Exam CR Chest Portable Ordering Physician JEAN CLAUDE KILLIAN Accession Number [id number] CPT4 Codes 26223 () Reason For Exam Shortness of breath Report Indication: Shortness of breath. A frontal view of the chest timed 0755 is compared to the study dated 05/10/2020. Again identified are sternotomy wires and mediastinal vascular clips. It appears that the mediastinal drain has been removed. The right-sided chest tube remains in place. No sizable pneumothorax is seen. The heart is unchanged in size. The mediastinum is unchanged in appearance. There has been improvement in the previously seen mild pulmonary vascular congestion and mild bilateral pulmonary interstitial edema. There our new left lower lung infiltrates/atelectatic changes and small left pleural effusion. There are unchanged atelectatic changes in the right lung base. Follow-up is recommended. Report Dictated on --- Final --- Dictated: 05/11/2020 9:26 am Dictating Physician: DO FERNANDO ANTHONY Signed Date and Time: 05/11/2020 9:27 am Signed by: DO FERNANDO ANTHONY Transcribed Date and Time: 05/11/2020 9:26 [place], [place] Basic Metabolic Panelon 04-29 Anion gap [Moles/Vol] 9 Normal [facility] Comment on above: Performed By: #### M G3, BMP3 #### [facility] [address] [place] [address] Calcium [Mass/Vol] 8.6 mg/dL Normal 8.4-10.4 [facility] Comment on above: Performed By: #### M G3, BMP3 #### [facility] [address] [place] [address] CO2 [Moles/Vol] 22 mmol/L Normal 22-30 [facility] Comment on above: Performed By: #### M G3, BMP3 #### [facility] [address] [place] [address] Glucose [Mass/Vol] 189 mg/dL High 70-100 [facility] Comment on above: Performed By: #### M G3, BMP3 #### [facility] [address] [place] [address] Urea nitrogen [Mass/Vol] 18 mg/dL Normal 7-20 [facility] Comment on above: Performed By: #### M G3, BMP3 #### [facility] [address] [place] [address] Creatinine [Mass/Vol] 0.88 mg/dL Normal 0.52-1.25 [facility] Comment on above: Performed By: #### M G3, BMP3 #### [facility] [address] [place] [address] GFR/1.73 sq M predicted among blacks MDRD (S/P/Bld) [Vol rate/Area] mL/min/{1.73_m2} Normal >60 [facility] Comment on above: Performed By: #### M G3, BMP3 #### [facility] [address] [place] [address] GFR/1.73 sq M predicted among non-blacks MDRD (S/P/Bld) [Vol rate/Area] 86.0 mL/min/{1.73_m2} Normal >60 [facility] Comment on above: Result Comment: KDIG O guidelines provide the following GFR categories: Stage GFR(ml/min/1.73 m2) Terms G1 >=90 Normal or high G2 60-89 Mildly decreased* G3a 45-59 Mildly to moderately decreased G3b 30-44 Moderately to severely decreased G4 15-29 Severely decreased G5 <15 Kidney failure *Relative to young adult level. In the absence of evidence of kidney damage, neither GFR category G1 nor G2 fulfill the criteria for CKD. The CKD-EPI equation is validated in individuals 18 years of age and older. Currently the best equation for estimating glomerular filtration rate (GFR) from serum creatinine in children is the Bedside Garza equation. It is less accurate in patients with extremes of muscle mass, restriction of dietary protein, ingestion of creatine, extra-renal metabolism of creatinine, or treatment with medications that affect renal tubular creatinine secretion. Performed By: #### M G3, BMP3 #### [facility] [address] [place], [place] Chloride [Moles/Vol] 100 mmol/L Normal 98-107 [facility] Comment on above: Performed By: #### M G3, BMP3 #### [facility] [address] [place] [place], [place] Potassium [Moles/Vol] 4.3 mmol/L Normal 3.5-5.1 [facility] Comment on above: Performed By: #### M G3, BMP3 #### [facility] [address] [place] [place], [place] Sodium [Moles/Vol] 131 mmol/L Low 135-145 [facility] Comment on above: Performed By: #### M G3, BMP3 #### [facility] [address] [place] [place], [place] Anion gap [Moles/Vol] 9 mmol/L [place], [place] Calcium [Mass/Vol] 8.6 mg/dL 8.4 - 10. 4 mg/dL [place] Chloride [Moles/Vol] 100 mmol/L 98 - 10 7 mmol/L [place] CO2 [Moles/Vol] 22 mmol/L 22 - 30 mmol/L [place] Creatinine [Mass/Vol] 0.88 mg/dL 0.52 - 1.25 mg/dL [place] EGFR IF NonAfrican [place] 86.0 mL/min >60 [place] Comment on above: KDIGO guidelines pro vide the following GFR categories: Stage GFR(ml/min/1.73 m2) Terms G1 >=90 Normal or high G2 60-89 Mildly decreased* G3a 45-59 Mildly to moderately decreased G3b 30-44 Moderately to severely decreased G4 15-29 Severely decreased G5 <15 Kidney failure *Relative to young adult level. In the absence of evidence of kidney damage, neither GFR category G1 nor G2 fulfill the criteria for CKD. The CKD-EPI equation is validated in individuals 18 years of age and older. Currently the best equation for estimating glomerular filtration rate (GFR) from serum creatinine in children is the Bedside Garza equation. It is less accurate in patients with extremes of muscle mass, restriction of dietary protein, ingestion of creatine, extra-renal metabolism of creatinine, or treatment with medications that affect renal tubular creatinine secretion. GFR/1.73 sq M predicted among blacks MDRD (S/P/Bld) [Vol rate/Area] mL/min/{1.73_m2} >60 mL/min [place] Glucose [Mass/Vol] 189 mg/dL High 70 - 100 mg/dL [place] Interpretation and review of laboratory results Abnormal [place] Potassium [Moles/Vol] 4.3 mmol/L 3.5 - 5.1 mmol/L [place] Sodium [Moles/Vol] 131 mmol/L Low 135 - 145 mmol/L [place] Urea nitrogen [Mass/Vol] 18 mg/dL 7 - 20 mg/dL [place] CBCon 05-10-2020 Erythrocyte distribution width (RBC) [Ratio] 13.1 % 11.5 - 14.5 % [place] Hematocrit (Bld) [Volume fraction] 21.8 % Low 40 - 52 % [place] Hemoglobin (Bld) [Mass/Vol] 7.7 g/dL Low 13 - 18 g/dL [place] Interpretation and review of laboratory results Abnormal [place] MCH (RBC) [Entitic mass] 31.8 pg 26 - 34 pg [place] MCHC (RBC) [Mass/Vol] 35.4 % 32 - 36 % [place], [place] MCV (RBC) [Entitic vol] 89.9 fL 80 - 98 fL [place] Platelet mean volume (Bld) [Entitic vol] 8.2 fL 7.4 - 10.4 fL [place] Platelets (Bld) [#/Vol] 75 10*3/uL Low 140 - 440 10*3/uL [place] RBC (Bld) [#/Vol] 2.42 10*6/uL Low 4.4 - 5.9 10*6/uL [place] WBC (Bld) [#/Vol] 7.3 10*3/uL 3.6 - 10.7 10*3/uL [place] Test Performed by [facility], [place] [address] [place], [place] CR Chest Portableon 05-10-20 20 CR Chest Portable Patient Name: ASCENCION MONTOYA Diagnostic Radiology Exam Date/Time 05/10/2020 05:43:52 EDT Exam CR Chest Portable Ordering Physician JEAN CLAUDE KILLIAN Accession Number [id number] CPT4 Codes 28410 () Reason For Exam Shortness of breath Report Indication: Shortness of breath. A frontal view of the chest timed 528 is compared to the study dated 05/09/2020. Again identified are sternotomy wires and mediastinal vascular clips. The right-sided Greenwood-Perez catheter and mediastinal drain have been removed. There is a right-sided chest tube. No sizable pneumothorax is seen. The patient is mildly rotated. The heart is unchanged in size. The mediastinum is unchanged in appearance. There is mild pulmonary vascular congestion and mild bilateral pulmonary interstitial edema which has progressed. There are no areas of consolidation. Follow-up is recommended. Report Dictated on Workstation: [id number] Final Dictated: 05/10/2020 7:06 am Dictating Physician: DO FERNANDO ANTHONY Signed Date and Time: 05/10/2020 7:08 am Signed by: DO FERNANDO ANTHONY Transcribed Date and Time: 05/10/2020 7:06 Normal [facility] Glucose,Bedsideon 05-10-2020 Glucose [Mass/Vol] 273 mg/dL High 70-100 [facility] Comment on above: Result Comment: Test performed by glucose meter. Results may be 10%-15% lower than serum/plasma values. (CLIA ID [id number]) Performed By: #### B MP3, PHOS3, HEMOG, PT/AP, MG3 #### [address] [address] [place] [address] Glucose [Mass/Vol] 199 mg/dL High 70-100 [facility] Comment on above: Result Comment: Test performed by glucose meter. Results may be 10%-15% lower than serum/plasma values. (CLIA ID [id number]) Performed By: #### Sandie G3, BMP3 #### [address] [address] [place], [place] Glucose [Mass/Vol] 274 mg/dL High 70-100 [facility] Comment on above: Result Comment: Test performed by glucose meter. Results may be 10%-15% lower than serum/plasma values. (CLIA ID [id number]) Performed By: #### Sandie Cobb, BMP3 #### [address] [address] [place], [place] Glucose [Mass/Vol] 258 mg/dL High 70-100 [facility] Comment on above: Result Comment: Test performed by glucose meter. Results may be 10%-15% lower than serum/plasma values. (CLIA ID [id number]) Performed By: #### Sandie Cobb, BMP3 #### [facility] [address] [address] [address] [place], [place] Hemogramon 05-10-2020 Erythrocyte distribution width (RBC) [Ratio] 13.1 % Normal 11.5-14.5 [facility] Comment on above: Performed By: #### Sandie Cobb, BMP3 #### [address] [address] [place], [place] Hematocrit (Bld) [Volume fraction] 21.8 % Low 40.0-52.0 [facility] Comment on above: Performed By: #### Sandie G3, BMP3 #### [address] [address] [place] Hemoglobin (Bld) [Mass/Vol] 7.7 g/dL Low 13.0-18.0 [facility] Comment on above: Performed By: #### Sandie G3, BMP3 #### [address] [address] [place] MCH (RBC) [Entitic mass] 31.8 pg Normal 26.0-34.0 [facility] Comment on above: Performed By: #### Sandie G3, BMP3 #### [facility] [address] [place], [place] MCHC (RBC) [Mass/Vol] 35.4 % Normal 32.0-36.0 [facility] Comment on above: Performed By: #### Sandie G3, BMP3 #### [facility] [address] [place] [place], [place] MCV (RBC) [Entitic vol] 89.9 fL Normal 80.0-98.0 [facility] Comment on above: Performed By: #### Sandie G3, BMP3 #### [address] [address] [place], [place] Platelet mean volume (Bld) [Entitic vol] 8.2 fL Normal 7.4-10.4 [facility] Comment on above: Performed By: #### Sandie G3, BMP3 #### [address] [address] [place], [place] Platelets (Bld) [#/Vol] 75 10*3/uL Low 140-440 [facility] Comment on above: Performed By: #### Sandie G3, BMP3 #### [address] [address] [place], [place] RBC (Bld) [#/Vol] 2.42 10*6/uL Low 4.40-5.90 [facility] Comment on above: Performed By: #### Sandie G3, BMP3 #### [address] [address] [place] WBC (Bld) [#/Vol] 7.3 10*3/uL Normal 3.6-10.7 [facility] Comment on above: Performed By: #### Sandie G3, BMP3 #### [facility] [address] [place] [place], [place] Magnesiumon 05-10-2020 Magnesium [Mass/Vol] 1.8 mg/dL Normal 1.6-2.3 [facility] Comment on above: Performed By: #### Sandie G3, BMP3 #### [address] [address] [place] [address] Magnesium [Mass/Vol] 1.8 mg/dL 1.6 - 2 .3 mg/dL [facility], [facility] 05-10-2020 Test Performed by [facility], [address] [place] [address] [facility] [place] POCT Glucoseon 05-10-2020 Glucose [Mass/Vol] 273 mg/dL High 70 - 100 mg/dL [facility] [place] Comment on above: Test performed by gl ucose meter. Results may be 10%-15% lower than serum/plasma values. (CLIA ID [id number]) Interpretation and review of laboratory results Abnormal [facility] [place] Test Performed by [facility], [address] [place] [address] [facility] [place] Glucose [Mass/Vol] 199 mg/dL High 70 - 100 mg/dL [facility] [place] Comment on above: Test performed by gl ucose meter. Results may be 10%-15% lower than serum/plasma values. (CLIA ID [id number]) Interpretation and review of laboratory results Abnormal [facility] [place] Test Performed by [facility], [address] [place] [address] [facility] [place] Glucose [Mass/Vol] 274 mg/dL High 70 - 100 mg/dL [facility] [place] Comment on above: Test performed by gl ucose meter. Results may be 10%-15% lower than serum/plasma values. (CLIA ID [id number]) Interpretation and review of laboratory results Abnormal [facility] [place] Test Performed by [facility], [address] [place] [address] [facility] [place] Glucose [Mass/Vol] 258 mg/dL High 70 - 100 mg/dL [facility] [place] Comment on above: Test performed by gl ucose meter. Results may be 10%-15% lower than serum/plasma values. (CLIA ID [id number]) Interpretation and review of laboratory results Abnormal [facility] [place] Test Performed by [facility], [address] [place] [address] [facility] [place] XR CHEST PORTABLEon 05-10-20 Patient Name: ASCENCION MONTOYA [facility]: [id number] ---Diagnostic Radiology--- Exam Date/Time 05/10/2020 05:43:52 EDT Exam CR Chest Portable Ordering Physician JEAN CLAUDE KILLIAN Accession Number [id number] CPT4 Codes 43168 () Reason For Exam Shortness of breath Report Indication: Shortness of breath. A frontal view of the chest timed 528 is compared to the study dated 05/09/2020. Again identified are sternotomy wires and mediastinal vascular clips. The right-sided Greenwood-Perez catheter and mediastinal drain have been removed. There is a right-sided chest tube. No sizable pneumothorax is seen. The patient is mildly rotated. The heart is unchanged in size. The mediastinum is unchanged in appearance. There is mild pulmonary vascular congestion and mild bilateral pulmonary interstitial edema which has progressed. There are no areas of consolidation. Follow-up is recommended. Report Dictated on Workstation: [email or web address] --- Final --- Dictated: 05/10/2020 7:06 am Dictating Physician: DO FERNANDO ANTHONY Signed Date and Time: 05/10/2020 7:08 am Signed by: DO FERNANDO ANTHONY Transcribed Date and Time: 05/10/2020 7:06 [facility], [place] [facility], [facility] Incoming Radiology Results From [facility] - 05/10/2020 7:09 AM EDT Patient Name: ASCENCION WEIR ---Diagnostic Radiology--- Exam Date/Time 05/10/2020 05:43:52 EDT Exam CR Chest Portable Ordering Physician JEAN CLAUDE KILLIAN Accession Number [id number] CPT4 Codes 28338 () Reason For Exam Shortness of breath Report Indication: Shortness of breath. A frontal view of the chest timed 528 is compared to the study dated 05/09/2020. Again identified are sternotomy wires and mediastinal vascular clips. The right-sided Greenwood-Perez catheter and mediastinal drain have been removed. There is a right-sided chest tube. No sizable pneumothorax is seen. The patient is mildly rotated. The heart is unchanged in size. The mediastinum is unchanged in appearance. There is mild pulmonary vascular congestion and mild bilateral pulmonary interstitial edema which has progressed. There are no areas of consolidation. Follow-up is recommended. Report Dictated on Workstation: [id number] --- Final --- Dictated: 05/10/2020 7:06 am Dictating Physician: DO FERNANDO ANTHONY Signed Date and Time: 05/10/2020 7:08 am Signed by: DO FERNANDO ANTHONY Transcribed Date and Time: 05/10/2020 7:06 [facility] [place], [place] Basic Metabolic Panelon 04-29 Calcium [Mass/Vol] 9.1 mg/dL Normal 8.4-10.4 [facility] Comment on above: Performed By: #### B MP3, PHOS3, HEMOG, PT/AP, MG3 #### [address] [place], [place] Anion gap [Moles/Vol] 10 Normal [facility] Comment on above: Performed By: #### B MP3, PHOS3, HEMOG, PT/AP, MG3 #### [address] [place], [place] CO2 [Moles/Vol] 22 mmol/L Normal 22-30 [facility] Comment on above: Performed By: #### B MP3, PHOS3, HEMOG, PT/AP, MG3 #### [address] [place], [place] Creatinine [Mass/Vol] 1.04 mg/dL Normal 0.52-1.25 [facility] Comment on above: Performed By: #### B MP3, PHOS3, HEMOG, PT/AP, MG3 #### [address] [place], [place] GFR/1.73 sq M predicted among blacks MDRD (S/P/Bld) [Vol rate/Area] 82.9 mL/min/{1.73_m2} Normal >60 [facility] Comment on above: Performed By: #### B MP3, PHOS3, HEMOG, PT/AP, MG3 #### [address] [place], [place] GFR/1.73 sq M predicted among non-blacks MDRD (S/P/Bld) [Vol rate/Area] 71.5 mL/min/{1.73_m2} Normal >60 [facility] Comment on above: Result Comment: KDIG O guidelines provide the following GFR categories: Stage GFR(ml/min/1.73 m2) Terms G1 >=90 Normal or high G2 60-89 Mildly decreased* G3a 45-59 Mildly to moderately decreased G3b 30-44 Moderately to severely decreased G4 15-29 Severely decreased G5 <15 Kidney failure *Relative to young adult level. In the absence of evidence of kidney damage, neither GFR category G1 nor G2 fulfill the criteria for CKD. The CKD-EPI equation is validated in individuals 18 years of age and older. Currently the best equation for estimating glomerular filtration rate (GFR) from serum creatinine in children is the Bedside Garza equation. It is less accurate in patients with extremes of muscle mass, restriction of dietary protein, ingestion of creatine, extra-renal metabolism of creatinine, or treatment with medications that affect renal tubular creatinine secretion. Performed By: #### B MP3, PHOS3, HEMOG, PT/AP, MG3 #### [address] Urea nitrogen [Mass/Vol] 17 mg/dL Normal 7-20 [facility] Comment on above: Performed By: #### B MP3, PHOS3, HEMOG, PT/AP, MG3 #### [address] Chloride [Moles/Vol] 104 mmol/L Normal 98-107 [facility] Comment on above: Performed By: #### B MP3, PHOS3, HEMOG, PT/AP, MG3 #### [address] Potassium [Moles/Vol] 4.4 mmol/L Normal 3.5-5.1 [facility] Comment on above: Performed By: #### B MP3, PHOS3, HEMOG, PT/AP, MG3 #### [address] Sodium [Moles/Vol] 136 mmol/L Normal 135-145 [facility] Comment on above: Performed By: #### B MP3, PHOS3, HEMOG, PT/AP, MG3 #### [address] [address] [place] [address] Anion gap [Moles/Vol] 10 mmol/L [place], [place] Calcium [Mass/Vol] 9.1 mg/dL 8.4 - 10. 4 mg/dL [place], [place] Chloride [Moles/Vol] 104 mmol/L 98 - 10 7 mmol/L [place] CO2 [Moles/Vol] 22 mmol/L 22 - 30 mmol/L [place] Creatinine [Mass/Vol] 1.04 mg/dL 0.52 - 1.25 mg/dL [place] EGFR IF NonAfrican Thai 71.5 mL/min >60 [place] Comment on above: KDIGO guidelines pro vide the following GFR categories: Stage GFR(ml/min/1.73 m2) Terms G1 >=90 Normal or high G2 60-89 Mildly decreased* G3a 45-59 Mildly to moderately decreased G3b 30-44 Moderately to severely decreased G4 15-29 Severely decreased G5 <15 Kidney failure *Relative to young adult level. In the absence of evidence of kidney damage, neither GFR category G1 nor G2 fulfill the criteria for CKD. The CKD-EPI equation is validated in individuals 18 years of age and older. Currently the best equation for estimating glomerular filtration rate (GFR) from serum creatinine in children is the Bedside Garza equation. It is less accurate in patients with extremes of muscle mass, restriction of dietary protein, ingestion of creatine, extra-renal metabolism of creatinine, or treatment with medications that affect renal tubular creatinine secretion. GFR/1.73 sq M predicted among blacks MDRD (S/P/Bld) [Vol rate/Area] 82.9 mL/min/{1.73_m2} >60 [place] Potassium [Moles/Vol] 4.4 mmol/L 3.5 - 5.1 mmol/L [place] Sodium [Moles/Vol] 136 mmol/L 135 - 145 mmol/L [place] Urea nitrogen [Mass/Vol] 17 mg/dL 7 - 20 mg/dL [place] Anion gap [Moles/Vol] 9 Normal [facility] Comment on above: Performed By: #### H EMDF #### [facility] [address] [place] [address] Calcium [Mass/Vol] 9.5 mg/dL Normal 8.4-10.4 [facility] Comment on above: Performed By: #### H EMDF #### [address] [place], [place] CO2 [Moles/Vol] 22 mmol/L Normal 22-30 [facility] Comment on above: Performed By: #### H EMDF #### [address] [place], [place] Glucose [Mass/Vol] 82 mg/dL Normal 70-100 [facility] Comment on above: Performed By: #### H EMDF #### [address] [place], [place] Urea nitrogen [Mass/Vol] 15 mg/dL Normal 7-20 [facility] Comment on above: Performed By: #### H EMDF #### [address] [place], [place] Creatinine [Mass/Vol] 0.88 mg/dL Normal 0.52-1.25 [facility] Comment on above: Performed By: #### H EMDF #### [address] [place], [place] GFR/1.73 sq M predicted among blacks MDRD (S/P/Bld) [Vol rate/Area] mL/min/{1.73_m2} Normal >60 [facility] Comment on above: Performed By: #### H EMDF #### [address] [place], [place] GFR/1.73 sq M predicted among non-blacks MDRD (S/P/Bld) [Vol rate/Area] 86.0 mL/min/{1.73_m2} Normal >60 [facility] Comment on above: Result Comment: KDIG O guidelines provide the following GFR categories: Stage GFR(ml/min/1.73 m2) Terms G1 >=90 Normal or high G2 60-89 Mildly decreased* G3a 45-59 Mildly to moderately decreased G3b 30-44 Moderately to severely decreased G4 15-29 Severely decreased G5 <15 Kidney failure *Relative to young adult level. In the absence of evidence of kidney damage, neither GFR category G1 nor G2 fulfill the criteria for CKD. The CKD-EPI equation is validated in individuals 18 years of age and older. Currently the best equation for estimating glomerular filtration rate (GFR) from serum creatinine in children is the Bedside Garza equation. It is less accurate in patients with extremes of muscle mass, restriction of dietary protein, ingestion of creatine, extra-renal metabolism of creatinine, or treatment with medications that affect renal tubular creatinine secretion. Performed By: #### H EMDF #### [address] [address] Potassium [Moles/Vol] 4.4 mmol/L Normal 3.5-5.1 [facility] Comment on above: Performed By: #### H EMDF #### [address] [address] Sodium [Moles/Vol] 137 mmol/L Normal 135-145 [facility] Comment on above: Performed By: #### H EMDF #### [address] [address] Chloride [Moles/Vol] 106 mmol/L Normal 98-107 [facility] Comment on above: Performed By: #### H EMDF #### [address] [address] [facility]Con 05-09-2020 Erythrocyte distribution width (RBC) [Ratio] 13.2 % 11.5 - 14.5 % [place] Hematocrit (Bld) [Volume fraction] 22.7 % Low 40 - 52 % [place] Hemoglobin (Bld) [Mass/Vol] 8.0 g/dL Low 13 - 18 g/dL [place] Interpretation and review of laboratory results Abnormal [place] MCH (RBC) [Entitic mass] 31.3 pg 26 - 34 pg [place] MCHC (RBC) [Mass/Vol] 35.2 % 32 - 36 % [place], [place] MCV (RBC) [Entitic vol] 88.9 fL 80 - 98 fL [place] Platelet mean volume (Bld) [Entitic vol] 7.9 fL 7.4 - 10.4 fL [place] Platelets (Bld) [#/Vol] 98 10*3/uL Low 140 - 440 10*3/uL [place] RBC (Bld) [#/Vol] 2.55 10*6/uL Low 4.4 - 5.9 10*6/uL [place] WBC (Bld) [#/Vol] 7.5 10*3/uL 3.6 - 10.7 10*3/uL [place] Test Performed by [facility], [address] [place] [id number] [place], [place] CR Chest Portableon 05-09-20 20 CR Chest Portable Patient Name: ASCENCION MONTOYA Diagnostic Radiology Exam Date/Time 05/09/2020 05:36:21 EDT Exam CR Chest Portable Ordering Physician JEAN CLAUDE KILLIAN Accession Number [id number] CPT4 Codes 28111 () Reason For Exam Shortness of breath Report CHEST X-RAY AP CLINICAL INDICATION: Shortness of breath AP radiograph of the chest was obtained. COMPARISON: 05/08/2020 FINDINGS: The patient is status post open heart surgery with sternotomy wires present. Mild pulmonary venous congestion. The patient has been extubated. Stable appearance/location of the right-sided Greenwood Perez line. Right-sided thoracostomy tube. No pneumothorax. No no new focal opacification or consolidation. Degenerative changes of the thoracic spine are noted. IMPRESSION: Overall stable appearance of the chest status post extubation. Report Dictated on Final Dictated: 05/09/2020 7:32 am Dictating Physician: MD LAZO JASON Signed Date and Time: 05/09/2020 7:34 am Signed by: MD LAZO JASON Transcribed Date and Time: 05/09/2020 7:32 Normal [facility] EKG 12 Leadon 05-09-2020 [facility] Test Date: 2020-05-08 Pat Name: Ascencion Weir Department: [facility] Room: [facility] Gender: M Dog Warden: TAZ : 1950 Requested By: LIZ VAUGHN Order Number: [id number] Reading MD: Nabor Weber Measurements Intervals Herod Rate: 77 P: 36 DE: 155 QRS: 21 QRSD: 82 T: 35 QT: 368 QTc: 417 Interpretive Statements Sinus rhythm Electronically Signed On 05-09-2020 9:40:36 EDT [facility], [place], [facility] Incoming Cardiology Results From [facility] - 05/09/2020 9:41 AM EDT [facility] Test Date: 2020-05-08 Pat Name: Ascencion Weir Department: 1[facility] Room: 1HLU Gender: M Dog Warden: TAZ : 1950 Requested By: LIZ VAUGHN Order Number: [id number] Reading : Nabor Weber Measurements Intervals Herod Rate: 77 P: 36 DE: 155 QRS: 21 QRSD: 82 T: 35 QT: 368 QTc: 417 Interpretive Statements Sinus rhythm Electronically Signed On 05-09-2020 9:40:36 EDT by Nabor [facility], [place] EKG 12 leadon 05-09-2020 [place], [facility] Incoming Cardiology Results From [facility] - 05/09/2020 9:10 AM EDT [facility] Test Date: 2020-05-09 Pat Name: Ascencion Weir Department: 1[facility] Room: 1HLU21 Gender: M Dog Warden: DAWSON : 1950 Requested By: JEAN CLAUDE KILLIAN Order Number: [id number] Reading BRANDY Messina Measurements Intervals Herod Rate: 76 P: 31 DE: 167 QRS: 23 QRSD: 66 T: 27 QT: 359 QTc: 404 Interpretive Statements Sinus rhythm Abnormal R-wave progression, early transition MINIMAL ST ELEVATION, DIFFUSE LEADS Electronically Signed On 05-09-2020 9:09:40 EDT by Rajinder Messina [facility], JULIA [facility] Bolt [facility] Test Date: 2020-05-09 Pat Name: Ascencion Weir Department: 1[facility] Room: 1HLU21 Gender: M Dog Warden: DAWSON : 1950 Requested By: JEAN CLAUDE KILLIAN Order Number: [id number] Reading : Rajinder Messina Measurements Intervals Herod Rate: 76 P: 31 DE: 167 QRS: 23 QRSD: 66 T: 27 QT: 359 QTc: 404 Interpretive Statements Sinus rhythm Abnormal R-wave progression, early transition MINIMAL ST ELEVATION, DIFFUSE LEADS Electronically Signed On 05-09-2020 9:09:40 EDT by Rajinder Messina [facility], [facility] Test Date: 2020-05-08 Pat Name: Ascencion Weir Department: [facility] Room: [facility] Gender: M Dog Warden: : 1950 Requested By: JEAN CLAUDE KILLIAN Order Number: [id number] Reading MD: Lisa Rodriguez Measurements Intervals Herod Rate: 77 P: 28 DE: 156 QRS: 46 QRSD: 71 T: 36 QT: 367 QTc: 416 Interpretive Statements Sinus rhythm Abnormal R-wave progression, early transition Electronically Signed On 05-09-2020 7:51:08 EDT by Lisa Rodriguez [facility], [employer] Incoming Cardiology Results From [facility] - 05/09/2020 7:52 AM EDT [facility] Test Date: 2020-05-08 Pat Name: Ascencion Weir Department: [facility] Room: [facility] Gender: M Dog Warden: : 1950 Requested By: JEAN [employer]UDED[employer] Order Number: [id number] Reading MD: Lisa Rodriguez Measurements Intervals Herod Rate: 77 P: 28 DE: 156 QRS: 46 QRSD: 71 T: 36 QT: 367 QTc: 416 Interpretive Statements Sinus rhythm Abnormal R-wave progression, early transition Electronically Signed On 05-09-2020 7:51:08 EDT by Lisa Rodriguez [facility], [place] Fresh Frozen Plasmaon 2019 Fresh Frozen Plasma Thawed Plasma - 5 Da y: [id number] released 05/09/20 07:35 JMV Unit Blood Type: A Unit Blood Rh: POS Blood Product Code: 0T5 Unit Number: [id number] Unit Status: released Barcoded Unit Number: =[id number] Barcoded Product Code: = Barcoded ABO/Rh: =%6200 Unit Expiration: Unit Volume Transfused: 0 Unit Transfusion Start Date/Time: Unit Transfusion End Date/Time: Thawed Plasma - 5 Day: [id number] released 05/09/20 07:35 JMV Unit Blood Type: A Unit Blood Rh: POS Blood Product Code: 0T5 Unit Number: [id number] Unit Status: released Barcoded Unit Number: =[id number] Barcoded Product Code: = Barcoded ABO/Rh: =%6200 Unit Expiration: [id number] Unit Volume Transfused: 0 Unit Transfusion Start Date/Time: Unit Transfusion End Date/Time: Normal [facility] Comment on above: Performed By: #### Sandie G3, BMP3 #### [facility] [address] [place] [address] Glucose,Bedsideon 05-09-2020 Glucose [Mass/Vol] 250 mg/dL [address] Comment on above: Result Comment: Test performed by glucose meter. Results may be 10%-15% lower than serum/plasma values. (CLIA ID [id number]) Performed By: #### Sandie G3, BMP3 #### [facility] [address] [place] [address] Glucose [Mass/Vol] 264 mg/dL [facility] [address] Comment on above: Result Comment: Test performed by glucose meter. Results may be 10%-15% lower than serum/plasma values. (CLIA ID [id number]) Performed By: #### B MP3, PHOS3, HEMOG, PT/AP, MG3 #### [facility] [address] [place] [address] Glucose [Mass/Vol] 278 mg/dL [facility] [address] Comment on above: Result Comment: Test performed by glucose meter. Results may be 10%-15% lower than serum/plasma values. (CLIA ID [id number]) Performed By: #### B MP3, PHOS3, HEMOG, PT/AP, MG3 #### [facility] [address] [place] [address] Glucose [Mass/Vol] 144 mg/dL High [address] Comment on above: Result Comment: Test performed by glucose meter. Results may be 10%-15% lower than serum/plasma values. (CLIA ID [id number]) Performed By: #### B MP3, PHOS3, HEMOG, PT/AP, MG3 #### [facility] [address] [place] [address] Glucose [Mass/Vol] 142 mg/dL High 70-100 [facility] Comment on above: Result Comment: Test performed by glucose meter. Results may be 10%-15% lower than serum/plasma values. (CLIA ID [id number]) Performed By: #### B MP3, PHOS3, HEMOG, PT/AP, MG3 #### [facility] [address] [place] [address] Glucose [Mass/Vol] 181 mg/dL High 70-100 [facility] Comment on above: Result Comment: Test performed by glucose meter. Results may be 10%-15% lower than serum/plasma values. (CLIA ID [id number]) Performed By: #### M G3, BMP3 #### [address] [place] [address] Glucose [Mass/Vol] 99 mg/dL Normal 70-100 [facility] Comment on above: Result Comment: Test performed by glucose meter. Results may be 10%-15% lower than serum/plasma values. (CLIA ID [id number]) Performed By: #### H EMDF #### [facility] [address] [place] [address] Glucose [Mass/Vol] 91 mg/dL Normal 70-100 [facility] Comment on above: Result Comment: Test performed by glucose meter. Results may be 10%-15% lower than serum/plasma values. (CLIA ID [id number]) Performed By: #### H EMDF #### [facility] [address] [place] [address] Glucose [Mass/Vol] 96 mg/dL Normal 70-100 [facility] Comment on above: Result Comment: Test performed by glucose meter. Results may be 10%-15% lower than serum/plasma values. (CLIA ID [id number]) Performed By: #### B MP3, PHOS3, HEMOG, PT/AP, MG3 #### [facility] [address] [place], [place] Glucose [Mass/Vol] 95 mg/dL Normal 70-100 [facility] Comment on above: Result Comment: Test performed by glucose meter. Results may be 10%-15% lower than serum/plasma values. (CLIA ID [id number]) Performed By: #### B MP3, PHOS3, HEMOG, PT/AP, MG3 #### [address] [place], [place] Glucose [Mass/Vol] 95 mg/dL Normal 70-100 [facility] Comment on above: Result Comment: Test performed by glucose meter. Results may be 10%-15% lower than serum/plasma values. (CLIA ID [id number]) Performed By: #### B MP3, PHOS3, HEMOG, PT/AP, MG3 #### [address] [place], [place] Glucose [Mass/Vol] 84 mg/dL Normal 70-100 [place], [place] Comment on above: Test performed by gl ucose meter. Results may be 10%-15% lower than serum/plasma values. (CLIA ID [id number]) Result Comment: Test performed by glucose meter. Results may be 10%-15% lower than serum/plasma values. (CLIA ID [id number]) Performed By: #### H EMDF #### [address] [place], [place] Performed By: #### B MP3, PHOS3, HEMOG, PT/AP, MG3 #### [address] [place] Performed By: #### M G3, BMP3 #### [address] [place] Glucose [Mass/Vol] 59 mg/dL Low 70-100 [facility] Comment on above: Result Comment: Test performed by glucose meter. Results may be 10%-15% lower than serum/plasma values. (CLIA ID [id number]) Performed By: #### B MP3, PHOS3, HEMOG, PT/AP, MG3 #### [address] [place], [place] Glucose [Mass/Vol] 61 mg/dL Low 70-100 [facility] Comment on above: Result Comment: Repe ated Test; Test performed by glucose meter. Results may be 10%-15% lower than serum/plasma values. (CLIA ID [id number]) Performed By: #### M G3, BMP3 #### [address] [place], [place] Glucose [Mass/Vol] 84 mg/dL Normal 70-100 [facility] Comment on above: Result Comment: Test performed by glucose meter. Results may be 10%-15% lower than serum/plasma values. (CLIA ID [id number]) Performed By: #### B MP3, PHOS3, HEMOG, PT/AP, MG3 #### [address] [place], [place] Hemogramon 05-09-2020 Erythrocyte distribution width (RBC) [Ratio] 13.2 % Normal 11.5-14.5 [facility] Comment on above: Performed By: #### B MP3, PHOS3, HEMOG, PT/AP, MG3 #### [address] [place], [place] Hematocrit (Bld) [Volume fraction] 22.7 % Low 40.0-52.0 [facility] Comment on above: Performed By: #### B MP3, PHOS3, HEMOG, PT/AP, MG3 #### [address] [place] Hemoglobin (Bld) [Mass/Vol] 8.0 g/dL Low 13.0-18.0 [facility] Comment on above: Performed By: #### B MP3, PHOS3, HEMOG, PT/AP, MG3 #### [address] [place] MCH (RBC) [Entitic mass] 31.3 pg Normal 26.0-34.0 [facility] Comment on above: Performed By: #### B MP3, PHOS3, HEMOG, PT/AP, MG3 #### [address] [place] MCHC (RBC) [Mass/Vol] 35.2 % Normal 32.0-36.0 [facility] Comment on above: Performed By: #### B MP3, PHOS3, HEMOG, PT/AP, MG3 #### [address] [place] MCV (RBC) [Entitic vol] 88.9 fL Normal 80.0-98.0 [facility] Comment on above: Performed By: #### B MP3, PHOS3, HEMOG, PT/AP, MG3 #### [address] [place], [place] Platelet mean volume (Bld) [Entitic vol] 7.9 fL Normal 7.4-10.4 [facility] Comment on above: Performed By: #### B MP3, PHOS3, HEMOG, PT/AP, MG3 #### [address] [place], [place] Platelets (Bld) [#/Vol] 98 10*3/uL Low 140-440 [facility] Comment on above: Performed By: #### B MP3, PHOS3, HEMOG, PT/AP, MG3 #### [address] [place], [place] RBC (Bld) [#/Vol] 2.55 10*6/uL Low 4.40-5.90 [facility] Comment on above: Performed By: #### B MP3, PHOS3, HEMOG, PT/AP, MG3 #### [address] [place] WBC (Bld) [#/Vol] 7.5 10*3/uL Normal 3.6-10.7 [facility] Comment on above: Performed By: #### B MP3, PHOS3, HEMOG, PT/AP, MG3 #### [address] [place] [address] Erythrocyte distribution width (RBC) [Ratio] 13.2 % Normal 11.5-14.5 [facility] Comment on above: Performed By: #### Sandie G3, BMP3 #### [address] [place] Hematocrit (Bld) [Volume fraction] 24.7 % Low 40.0-52.0 [facility] Comment on above: Performed By: #### Sandie G3, BMP3 #### [address] [place], [place] Hemoglobin (Bld) [Mass/Vol] 8.6 g/dL Low 13.0-18.0 [facility] Comment on above: Performed By: #### Sandie G3, BMP3 #### [address] [place] MCH (RBC) [Entitic mass] 30.9 pg Normal 26.0-34.0 [facility] Comment on above: Performed By: #### Sandie G3, BMP3 #### [address] [place] MCHC (RBC) [Mass/Vol] 34.8 % Normal 32.0-36.0 [facility] Comment on above: Performed By: #### Sandie G3, BMP3 #### [address] [place] MCV (RBC) [Entitic vol] 88.8 fL Normal 80.0-98.0 [facility] Comment on above: Performed By: #### Sandie G3, BMP3 #### [address] [place], [place] Platelet mean volume (Bld) [Entitic vol] 7.8 fL Normal 7.4-10.4 [facility] Comment on above: Performed By: #### Sandie G3, BMP3 #### [address] [place], [place] Platelets (Bld) [#/Vol] 103 10*3/uL Low 140-440 [facility] Comment on above: Performed By: #### Sandie G3, BMP3 #### [address] [place], [place] RBC (Bld) [#/Vol] 2.78 10*6/uL Low 4.40-5.90 [facility] Comment on above: Performed By: #### M G3, BMP3 #### [facility] [address], [place] WBC (Bld) [#/Vol] 6.1 10*3/uL Normal 3.6-10.7 [facility] Comment on above: Performed By: #### M G3, BMP3 #### [facility] [address], [place] Magnesiumon 05-09-2020 Magnesium [Mass/Vol] 2.1 mg/dL Normal 1.6-2.3 [facility] Comment on above: Performed By: #### B MP3, PHOS3, HEMOG, PT/AP, MG3 #### [facility] [address], [place] Magnesium [Mass/Vol] 2.1 mg/dL 1.6 - 2 .3 mg/dL [place], [place] Otheron 05-09-2020 Test Performed by [facility], [facility] [place], [place] [address] [place] [address] Test Performed by [facility], [facility] [place], [place] [id number] [place] [address] Interpretation and review of laboratory results Abnormal [place], [place] Test Performed by [facility], [place] [address] [place], [place] POCT Glucoseon 05-09-2020 Glucose [Mass/Vol] 250 mg/dL High 70 - 100 mg/dL [place], [place] Comment on above: Test performed by gl ucose meter. Results may be 10%-15% lower than serum/plasma values. (CLIA ID [id number]) Interpretation and review of laboratory results Abnormal [place], [place] Test Performed by [facility], [facility] [place]. [place], [place] [id number] [place] [address] Glucose [Mass/Vol] 264 mg/dL High 70 - 100 mg/dL [place] Comment on above: Test performed by gl ucose meter. Results may be 10%-15% lower than serum/plasma values. (CLIA ID [id number]) Interpretation and review of laboratory results Abnormal [facility] [place] Test Performed by [facility], [address] [place] [address] [facility] [place] Glucose [Mass/Vol] 278 mg/dL High 70 - 100 mg/dL [facility] [place] Comment on above: Test performed by gl ucose meter. Results may be 10%-15% lower than serum/plasma values. (CLIA ID [id number]) Interpretation and review of laboratory results Abnormal [facility] [place] Test Performed by [facility], [address] [place] [address] [facility] [place] Glucose [Mass/Vol] 144 mg/dL High 70 - 100 mg/dL [facility] [place] Comment on above: Test performed by gl ucose meter. Results may be 10%-15% lower than serum/plasma values. (CLIA ID [id number]) Interpretation and review of laboratory results Abnormal [facility] Test Performed by [facility], [address] [place] [address] [facility] [place] Glucose [Mass/Vol] 142 mg/dL High 70 - 100 mg/dL [facility] [place] Comment on above: Test performed by gl ucose meter. Results may be 10%-15% lower than serum/plasma values. (CLIA ID [id number]) Interpretation and review of laboratory results Abnormal [facility] [place] Test Performed by [facility], [address] [place] [address] [facility] [place] Glucose [Mass/Vol] 181 mg/dL High 70 - 100 mg/dL [facility] [place] Comment on above: Test performed by gl ucose meter. Results may be 10%-15% lower than serum/plasma values. (CLIA ID [id number]) Interpretation and review of laboratory results Abnormal [facility] [place] Test Performed by [facility], [address] [place] [address] [facility] [place] Glucose [Mass/Vol] 99 mg/dL 70 - 100 mg/dL [place] Comment on above: Test performed by gl ucose meter. Results may be 10%-15% lower than serum/plasma values. (CLIA ID [id number]) Glucose [Mass/Vol] 91 mg/dL 70 - 100 mg/dL [place] Comment on above: Test performed by gl ucose meter. Results may be 10%-15% lower than serum/plasma values. (CLIA ID [id number]) Test Performed by [facility], [address] [place] [address] [place] Glucose [Mass/Vol] 96 mg/dL 70 - 100 mg/dL [place] Comment on above: Test performed by gl ucose meter. Results may be 10%-15% lower than serum/plasma values. (CLIA ID [id number]) Test Performed by [facility], [address] [place] [address] [place] Glucose [Mass/Vol] 95 mg/dL 70 - 100 mg/dL [place] Comment on above: Test performed by gl ucose meter. Results may be 10%-15% lower than serum/plasma values. (CLIA ID [id number]) Test Performed by [facility], [address] [place] [address] [place] Glucose [Mass/Vol] 95 mg/dL 70 - 100 mg/dL [place] Comment on above: Test performed by gl ucose meter. Results may be 10%-15% lower than serum/plasma values. (CLIA ID [id number]) Test Performed by [facility], [address] [place] [address] [place] Glucose [Mass/Vol] 84 mg/dL 70 - 100 mg/dL [place] Comment on above: Test performed by gl ucose meter. Results may be 10%-15% lower than serum/plasma values. (CLIA ID [id number]) Test Performed by [facility], [address] [place] [address] [facility], [place] Glucose [Mass/Vol] 59 mg/dL Low 70 - 100 mg/dL [place], [place] Comment on above: Test performed by gl ucose meter. Results may be 10%-15% lower than serum/plasma values. (CLIA ID [id number]) Glucose [Mass/Vol] 61 mg/dL Low 70 - 100 mg/dL [place] Comment on above: Repeated Test; Test performed by glucose meter. Results may be 10%-15% lower than serum/plasma values. (CLIA ID [id number]) Prothrombin Timeon 0 INR Coag (PPP) [Relative time] 1.1 Normal 0.9-1.1 [facility] Comment on above: Result Comment: Naeem mmended Anticoagulant Therapy: SEE BELOW ----- INR of 2.0 - 3.0 : - Prophylaxis of Venous Thrombosis (high-risk surgery) - Treatment of Venous Thrombosis - Treatment of Pulmonary Embolism (Includes tissue heart valves, Acute Myocardial Infarction to prevent systemic embolism, Valvular Heart Disease, and Atrial Fibrillation) ----- INR of 2.5 - 3.5 : - Mechanical Prosthetic Valves (high risk) - If oral anticoagulant therapy is used to prevent Myocardial Infarction Performed By: #### H EMDF #### [facility] [address] [address] PT Coag (PPP) [Time] 12.1 s High 9.0-12.0 [facility] Comment on above: Result Comment: . Performed By: #### H EMDF #### [facility] [address] [address] XR CHEST PORTABLEon 05-09-[address] [place] [address] Incoming Radiology Results From [facility] - 05/09/2020 7:36 AM EDT Patient Name: ASCENCION WEIR ---Diagnostic Radiology--- Exam Date/Time 05/09/2020 05:36:21 EDT Exam CR Chest Portable Ordering Physician JEAN CLAUDE KILLIAN Accession Number [id number] CPT4 Codes 48921 () Reason For Exam Shortness of breath Report CHEST X-RAY AP CLINICAL INDICATION: Shortness of breath AP radiograph of the chest was obtained. COMPARISON: 05/08/2020 FINDINGS: The patient is status post open heart surgery with sternotomy wires present. Mild pulmonary venous congestion. The patient has been extubated. Stable appearance/location of the right-sided Greenwood Perez line. Right-sided thoracostomy tube. No pneumothorax. No no new focal opacification or consolidation. Degenerative changes of the thoracic spine are noted. IMPRESSION: Overall stable appearance of the chest status post extubation. Report Dictated on --- Final --- Dictated: 05/09/2020 7:32 am Dictating Physician: MD LAZO JASON Signed Date and Time: 05/09/2020 7:34 am Signed by: MD LAZO JASON Transcribed Date and Time: 05/09/2020 7:32 [place] Patient Name: ASCENCION MONTOYA ---Diagnostic Radiology--- Exam Date/Time 05/09/2020 05:36:21 EDT Exam CR Chest Portable Ordering Physician JEAN CLAUDE KILLIAN Accession Number [id number] CPT4 Codes 32476 () Reason For Exam Shortness of breath Report CHEST X-RAY AP CLINICAL INDICATION: Shortness of breath AP radiograph of the chest was obtained. COMPARISON: 05/08/2020 FINDINGS: The patient is status post open heart surgery with sternotomy wires present. Mild pulmonary venous congestion. The patient has been extubated. Stable appearance/location of the right-sided Greenwood Perez line. Right-sided thoracostomy tube. No pneumothorax. No no new focal opacification or consolidation. Degenerative changes of the thoracic spine are noted. IMPRESSION: Overall stable appearance of the chest status post extubation. Report Dictated on --- Final --- Dictated: 05/09/2020 7:32 am Dictating Physician: MD LAZO JASON Signed Date and Time: 05/09/2020 7:34 am Signed by: MD LAZO JASON Transcribed Date and Time: 05/09/2020 7:32 [place], [place] Arterial Blood Gaseson 05-08 CO2 [Moles/Vol] 25.2 mmol/L Normal 23.0-27.0 [facility] Comment on above: Performed By: #### B MP3, PHOS3, HEMOG, PT/AP, MG3 #### [place] [address] [address] [place], [place] HCO3 (Bld) [Moles/Vol] 23.9 mmol/L Normal 21.0-25.0 S [facility] Comment on above: Performed By: #### B MP3, PHOS3, HEMOG, PT/AP, MG3 #### [place] [address] [place], [place] Hemoglobin (Bld) [Mass/Vol] 8.6 g/dL Normal ScreenOnly [facility] Comment on above: Performed By: #### B MP3, PHOS3, HEMOG, PT/AP, MG3 #### [place] [address] [place], [place] Oxygen (Bld) [Partial pressure] 393.5 mm[Hg] High 80.0-100.0 [facility] Comment on above: Performed By: #### B MP3, PHOS3, HEMOG, PT/AP, MG3 #### [place] [address] [place], [place] Oxygen saturation in Blood 99.3 % Normal 95.0-100.0 [facility] Comment on above: Performed By: #### B MP3, PHOS3, HEMOG, PT/AP, MG3 #### [place] [address] [place], [place] pCO2 41.1 mm[Hg] Normal 35.0-45.0 [facility] Comment on above: Performed By: #### B MP3, PHOS3, HEMOG, PT/AP, MG3 #### [place] [address] [place], [place] pH (Bld) 7.383 Normal 7.350-7.450 [facility] Comment on above: Performed By: #### B MP3, PHOS3, HEMOG, PT/AP, MG3 #### [place] [address] [place], [place] Std Base Excess -1.1 mmol/L Normal -3.0-3.0 [facility] Comment on above: Performed By: #### B MP3, PHOS3, HEMOG, PT/AP, MG3 #### [facility] [address] [place] [address] FIO2 No data Normal [facility] Comment on above: Performed By: #### B MP3, PHOS3, HEMOG, PT/AP, MG3 #### [facility] [address] [place] [address] Basic Metabolic Panelon 09-1 Anion gap [Moles/Vol] 9 mmol/L [place], [place] Calcium [Mass/Vol] 9.5 mg/dL 8.4 - 10. 4 mg/dL [place] Chloride [Moles/Vol] 106 mmol/L 98 - 10 7 mmol/L [place] CO2 [Moles/Vol] 22 mmol/L 22 - 30 mmol/L [place] Creatinine [Mass/Vol] 0.88 mg/dL 0.52 - 1.25 mg/dL [place] EGFR IF NonAfrican Thai 86.0 mL/min >60 [place] Comment on above: KDIGO guidelines pro vide the following GFR categories: Stage GFR(ml/min/1.73 m2) Terms G1 >=90 Normal or high G2 60-89 Mildly decreased* G3a 45-59 Mildly to moderately decreased G3b 30-44 Moderately to severely decreased G4 15-29 Severely decreased G5 <15 Kidney failure *Relative to young adult level. In the absence of evidence of kidney damage, neither GFR category G1 nor G2 fulfill the criteria for CKD. The CKD-EPI equation is validated in individuals 18 years of age and older. Currently the best equation for estimating glomerular filtration rate (GFR) from serum creatinine in children is the Bedside Garza equation. It is less accurate in patients with extremes of muscle mass, restriction of dietary protein, ingestion of creatine, extra-renal metabolism of creatinine, or treatment with medications that affect renal tubular creatinine secretion. GFR/1.73 sq M predicted among blacks MDRD (S/P/Bld) [Vol rate/Area] mL/min/{1.73_m2} >60 mL/min [place] Glucose [Mass/Vol] 82 mg/dL 70 - 100 mg/dL [place] Potassium [Moles/Vol] 4.4 mmol/L 3.5 - 5.1 mmol/L [facility], [place] Sodium [Moles/Vol] 137 mmol/L 135 - 145 mmol/L [place] Urea nitrogen [Mass/Vol] 15 mg/dL 7 - 20 mg/dL [place] Test Performed by [facility], [address] [place] [address] [place], [place] Anion gap [Moles/Vol] 8 Normal [facility] Comment on above: Performed By: #### B MP3, PHOS3, HEMOG, PT/AP, MG3 #### [place] [address] [place], [place] Calcium [Mass/Vol] 11.5 mg/dL High 8.4-10.4 [facility] Comment on above: Performed By: #### B MP3, PHOS3, HEMOG, PT/AP, MG3 #### [place] [address] [place], [place] CO2 [Moles/Vol] 22 mmol/L Normal 22-30 [facility] Comment on above: Performed By: #### B MP3, PHOS3, HEMOG, PT/AP, MG3 #### [place] [address] [place], [place] Glucose [Mass/Vol] 148 mg/dL High 70-100 [facility] Comment on above: Performed By: #### B MP3, PHOS3, HEMOG, PT/AP, MG3 #### [place] [address] [place] [place], [place] Urea nitrogen [Mass/Vol] 14 mg/dL Normal 7-20 [facility] Comment on above: Performed By: #### B MP3, PHOS3, HEMOG, PT/AP, MG3 #### [place] [address] [place], [place] Creatinine [Mass/Vol] 0.76 mg/dL Normal 0.52-1.25 [facility] Comment on above: Performed By: #### B MP3, PHOS3, HEMOG, PT/AP, MG3 #### [place] [address] [place] [address] GFR/1.73 sq M predicted among blacks MDRD (S/P/Bld) [Vol rate/Area] mL/min/{1.73_m2} Normal >60 [facility] Comment on above: Performed By: #### B MP3, PHOS3, HEMOG, PT/AP, MG3 #### [facility] [address] [place], [place] GFR/1.73 sq M predicted among non-blacks MDRD (S/P/Bld) [Vol rate/Area] mL/min/{1.73_m2} Normal >60 [facility] Comment on above: Result Comment: KDIG O guidelines provide the following GFR categories: Stage GFR(ml/min/1.73 m2) Terms G1 >=90 Normal or high G2 60-89 Mildly decreased* G3a 45-59 Mildly to moderately decreased G3b 30-44 Moderately to severely decreased G4 15-29 Severely decreased G5 <15 Kidney failure *Relative to young adult level. In the absence of evidence of kidney damage, neither GFR category G1 nor G2 fulfill the criteria for CKD. The CKD-EPI equation is validated in individuals 18 years of age and older. Currently the best equation for estimating glomerular filtration rate (GFR) from serum creatinine in children is the Bedside Garza equation. It is less accurate in patients with extremes of muscle mass, restriction of dietary protein, ingestion of creatine, extra-renal metabolism of creatinine, or treatment with medications that affect renal tubular creatinine secretion. Performed By: #### B MP3, PHOS3, HEMOG, PT/AP, MG3 #### [facility] [address] [place], [place] Potassium [Moles/Vol] 3.8 mmol/L Normal 3.5-5.1 [facility] Comment on above: Performed By: #### B MP3, PHOS3, HEMOG, PT/AP, MG3 #### [facility] [address] [place], [place] Chloride [Moles/Vol] 107 mmol/L Normal 98-107 [facility] Comment on above: Performed By: #### B MP3, PHOS3, HEMOG, PT/AP, MG3 #### [facility] [address] [place] [address] Sodium [Moles/Vol] 137 mmol/L Normal 135-145 [facility] Comment on above: Performed By: #### B MP3, PHOS3, HEMOG, PT/AP, MG3 #### [facility] [address] [place] [address] Anion gap [Moles/Vol] 8 mmol/L [place], [place] Calcium [Mass/Vol] 11.5 mg/dL High 8.4 - 10. 4 mg/dL [place] Chloride [Moles/Vol] 107 mmol/L 98 - 10 7 mmol/L [place] CO2 [Moles/Vol] 22 mmol/L 22 - 30 mmol/L [place] Creatinine [Mass/Vol] 0.76 mg/dL 0.52 - 1.25 mg/dL [place] EGFR IF NonAfrican [place] >90.0 >60 mL/min [place] Comment on above: KDIGO guidelines pro vide the following GFR categories: Stage GFR(ml/min/1.73 m2) Terms G1 >=90 Normal or high G2 60-89 Mildly decreased* G3a 45-59 Mildly to moderately decreased G3b 30-44 Moderately to severely decreased G4 15-29 Severely decreased G5 <15 Kidney failure *Relative to young adult level. In the absence of evidence of kidney damage, neither GFR category G1 nor G2 fulfill the criteria for CKD. The CKD-EPI equation is validated in individuals 18 years of age and older. Currently the best equation for estimating glomerular filtration rate (GFR) from serum creatinine in children is the Bedside Garza equation. It is less accurate in patients with extremes of muscle mass, restriction of dietary protein, ingestion of creatine, extra-renal metabolism of creatinine, or treatment with medications that affect renal tubular creatinine secretion. GFR/1.73 sq M predicted among blacks MDRD (S/P/Bld) [Vol rate/Area] mL/min/{1.73_m2} >60 mL/min [place] Glucose [Mass/Vol] 148 mg/dL High 70 - 100 mg/dL [place] Potassium [Moles/Vol] 3.8 mmol/L 3.5 - 5.1 mmol/L [place] Sodium [Moles/Vol] 137 mmol/L 135 - 145 mmol/L [place] Urea nitrogen [Mass/Vol] 14 mg/dL 7 - 20 mg/dL [place] Blood Gas, Arterialon 2019 Base Excess, Arterial -1.1 mmol/L -3 - 3 mmol/L [place] HCO3, Arterial 23.9 mmol/L 21 - 25 mmol/L [place] Hemoglobin (Bld) [Mass/Vol] 8.6 g/dL ScreenOnly [place] Interpretation and review of laboratory results Abnormal [place] Oxygen saturation in Blood 99.3 % 95 - 100 % [place] pCO2, Arterial 41.1 mm[Hg] 35 - 45 mm[Hg] [place] pH, Arterial 7.383 [place] pO2, Arterial 393.5 mm[Hg] High 80 - 100 mm[Hg] [place] Sodium [Moles/Vol] No data [place] TCO2, Arterial 25.2 mmol/L 23 - 27 mmol/L [place] Test Performed by [address] [address] [place], [place] CBCon 05-08-2020 Erythrocyte distribution width (RBC) [Ratio] 13.2 % 11.5 - 14.5 % [place] Hematocrit (Bld) [Volume fraction] 24.7 % Low 40 - 52 % [place] Hemoglobin (Bld) [Mass/Vol] 8.6 g/dL Low 13 - 18 g/dL [place] Interpretation and review of laboratory results Abnormal [place] MCH (RBC) [Entitic mass] 30.9 pg 26 - 34 pg [place] MCHC (RBC) [Mass/Vol] 34.8 % 32 - 36 % [place], [place] MCV (RBC) [Entitic vol] 88.8 fL 80 - 98 fL [place] Platelet mean volume (Bld) [Entitic vol] 7.8 fL 7.4 - 10.4 fL [place] Platelets (Bld) [#/Vol] 103 10*3/uL Low 140 - 440 10*3/uL [place] RBC (Bld) [#/Vol] 2.78 10*6/uL Low 4.4 - 5.9 10*6/uL [place] WBC (Bld) [#/Vol] 6.1 10*3/uL 3.6 - 10.7 10*3/uL [place] Test Performed by [facility], [address] [place] [address] [place] Erythrocyte distribution width (RBC) [Ratio] 12.8 % 11.5 - 14.5 % [place] Hematocrit (Bld) [Volume fraction] 23.8 % Low 40 - 52 % [place] Hemoglobin (Bld) [Mass/Vol] 8.3 g/dL Low 13 - 18 g/dL [place] Interpretation and review of laboratory results Abnormal [place] MCH (RBC) [Entitic mass] 31.2 pg 26 - 34 pg [place] MCHC (RBC) [Mass/Vol] 35.0 % 32 - 36 % [place] MCV (RBC) [Entitic vol] 89.1 fL 80 - 98 fL [place] Platelet mean volume (Bld) [Entitic vol] 7.6 fL 7.4 - 10.4 fL [place] Platelets (Bld) [#/Vol] 81 10*3/uL Low 140 - 440 10*3/uL [place] RBC (Bld) [#/Vol] 2.67 10*6/uL Low 4.4 - 5.9 10*6/uL [place] WBC (Bld) [#/Vol] 5.6 10*3/uL 3.6 - 10.7 10*3/uL [place] Test Performed by [facility], [facility] [place] [address] [place], [place] CR Chest Portableon 05-08-20 20 CR Chest Portable Patient Name: ASCENCION MONTOYA Diagnostic Radiology Exam Date/Time 05/08/2020 12:54:00 EDT Exam CR Chest Portable Ordering Physician JEAN CLAUDE KILLIAN Accession Number [id number] CPT4 Codes 34130 () Reason For Exam ETT placement Report Reason for examination: ET tube placement. A portable chest is obtained at 1231 hours. Comparison is dated 05/01/2020. The patient is mildly rotated. An ET tube is present with the tip approximately 3 cm above the rey. A Greenwood-Perez catheter is present on the right with the tip overlying the right pulmonary artery. Catheter tubing overlies the right hemithorax likely representing thoracostomy tubes. The trachea is midline. The mediastinum appears widened. The heart size is poorly evaluated. There is opacity overlying the medial right hemithorax which could represent collapsed lung or possibly a pericardial effusion. There is mild vascular congestion. No significant pleural effusion or pneumothorax is seen. IMPRESSION: Opacity overlying the medial right hemithorax of uncertain etiology. This could represent collapsed lung or large pericardial effusion as the right heart border is poorly visualized. Follow-up is recommended. Report Dictated on Final Dictated: 05/08/2020 1:30 pm Dictating Physician: MD MOYA LAUREN B Signed Date and Time: 05/08/2020 1:37 pm Signed by: MD MOYA LAUREN B Transcribed Date and Time: 05/08/2020 1:30 Normal [facility] Calcium, Ionizedon 0 Interpretation and review of laboratory results Abnormal [place] Ionized Ca 6.20 mg/dL High 4.3 - 5.2 mg/dL [place] pH (Bld) 7.39 [pH] [place] Test Performed by [address] [address] [place], [place] Calcium,Ionizedon 05-08-2020 Ionized Ca,Measured 6.20 mg/dL High 4.30-5.20 [facility] Comment on above: Performed By: #### B MP3, PHOS3, HEMOG, PT/AP, MG3 #### [facility] [address] [place] [address] pH, Ionized Calcium 7.39 Normal 7.31-7.46 [facility] Comment on above: Performed By: #### B MP3, PHOS3, HEMOG, PT/AP, MG3 #### [facility] [address] [place] [address] Echo 2D/3D ZAINAB w/wo Contrast on 05-08-2020 Echo 2D/3D ZAINAB w/wo Contrast Patient Name: ASCENCION WEIR Ultrasound Exam Date/Time 05/08/2020 08:50:14 EDT Exam Echo 2D/3D ZAINAB w/wo Contrast Ordering Physician NINA SAVAGE MATTHEW R. Accession Number [id number] Reason For Exam Surgery Addendum TRANSESOPHAGEAL ECHOCARDIOGRAM Intraoperative-Pre and Post Pump (AMENDED REPORT ) PATIENT: Carmella, STUDY DATE: 05/08/2020 Ascencion Aponte : 1950 AGE: 69 HT/WT: 172.7 cm (68 99.8 kg (219.5 in) lb) GENDER: M BP: LOCATION: [facility] PATIENT Inpatient main STATUS: *ORDERING PHYSICIAN: * Gabe Savage *READING PHYSICIAN: * Rachael Murry *MANAGER CUSTOMER: * Margie MAYA MD INDICATIONS: Coronary artery disease. Aortic valve disorders. CONCLUSIONS SUMMARY: Pre-CPB Normal LV function with severe Post-CPB Newly placed, well functioning aortic valve with maintained LV function. STUDY DATA: Operative transesophageal echocardiogram. Procedure: The procedure was performed with the patient intubated under general anesthesia on the operating table. A complete pre-operative ZAINAB was performed. Intra-operative monitoring was performed as needed. Post-operative imaging was performed to evaluate procedural success and to assess for complications. Image quality was excellent. A transesophageal probe was inserted by the anesthesiologistwithout difficulty. Complete 2D, complete spectral Doppler, and color flow Doppler images were acquired and archived for permanent storage and are available for subsequent review. Study status: Routine. Patient status: Inpatient. Location: Operating room. Administered medications: Etomidate. FINDINGS LEFT VENTRICLE: The cavity size is normal. Systolic function is normal. RIGHT VENTRICLE: The cavity size is normal. Systolic function is normal. VENTRICULAR SEPTUM: There is no evidence of a ventricular septal defect. LEFT ATRIUM: The atrium is normal in size. There is no evidence of a thrombus in the atrial cavity or appendage. No spontaneous echo contrast is observed. The appendage is of normal size. Emptying velocity is normal. RIGHT ATRIUM: The atrium is normal in size. MITRAL VALVE: Structurally normal valve. Leaflet separation is normal. Doppler: There is mild, 1+ regurgitation. AORTIC VALVE: Trileaflet. Doppler: There is severe stenosis. There is mild, 1+ regurgitation. Dimensionless index: 0.7. The peak systolic velocity is 2 m/sec. TRICUSPID VALVE: Structurally normal valve. Leaflet separation is normal. Doppler: There is trivial, less than 1+ regurgitation. PULMONIC VALVE: Cusp separation is normal. Doppler: There is trivial, less than 1+ regurgitation. AORTA: The aorta is mildly diseased. There is no evidence for aneurysm. There is no evidence for dissection. Aortic root: The aortic root is not dilated. PULMONARY ARTERY: The main pulmonary artery is normal in size. PERICARDIUM: There is no pericardial effusion. SYSTEMIC VEINS: Superior vena cava: The vessel is normal in size. Measurements LVOT Value LVOT ID, A-P 2.3 cm LVOT mean velocity, S 0.7 m/sec LVOT peak gradient, S 4 mm Hg Stroke volume (SV), LVOT DP 84 ml Stroke index (SV/bsa), LVOT DP 38 ml/m^2 Aortic valve Value Aortic valve peak velocity, S 2 m/sec Aortic valve mean velocity, S 1.2 m/sec DI 0.7 Legend: (L) and (H) adrian values outside specified reference range. (AMENDED REPORT ) Electronically signed by Rachael Murry MD 05/29/2020 20:29 Prior Signatures: Final Addendum Signed Date and Time: 05/29/2020 8:30 pm Signed by: RACHAEL MURRY DO Report TRANSESOPHAGEAL ECHOCARDIOGRAM Intraoperative-Pre and Post Pump PATIENT: Carmella, STUDY DATE: 05/08/2020 Ascencion Aponte : 1950 AGE: 69 HT/WT: 172.7 cm (68 99.8 kg (219.5 in) lb) GENDER: M BP: LOCATION: [facility] PATIENT Inpatient main STATUS: *ORDERING PHYSICIAN: * Gabe Savage *READING PHYSICIAN: * Rachael Murry *MANAGER CUSTOMER: * Margie MAYA MD INDICATIONS: Coronary artery disease. Aortic valve disorders. CONCLUSIONS SUMMARY: Pre-CPB Normal LV function with severe Post-CPB Newly placed, well functioning aortic valve with maintained LV function. STUDY DATA: Operative transesophageal echocardiogram. Procedure: The procedure was performed with the patient intubated under general anesthesia on the operating table. A complete pre-operative ZAINAB was performed. Intra-operative monitoring was performed as needed. Post-operative imaging was performed to evaluate procedural success and to assess for complications. Image quality was excellent. A transesophageal probe was inserted by the anesthesiologistwithout difficulty. Complete 2D, complete spectral Doppler, and color flow Doppler images were acquired and archived for permanent storage and are available for subsequent review. Study status: Routine. Patient status: Inpatient. Location: Operating room. Administered medications: Etomidate. FINDINGS LEFT VENTRICLE: The cavity size is normal. Systolic function is normal. RIGHT VENTRICLE: The cavity size is normal. Systolic function is normal. VENTRICULAR SEPTUM: There is no evidence of a ventricular septal defect. LEFT ATRIUM: The atrium is normal in size. There is no evidence of a thrombus in the atrial cavity or appendage. No spontaneous echo contrast is observed. The appendage is of normal size. Emptying velocity is normal. RIGHT ATRIUM: The atrium is normal in size. MITRAL VALVE: Structurally normal valve. Leaflet separation is normal. Doppler: There is mild, 1+ regurgitation. AORTIC VALVE: Trileaflet. Doppler: There is severe stenosis. There is mild, 1+ regurgitation. Dimensionless index: 0.7. The peak systolic velocity is 2 m/sec. TRICUSPID VALVE: Structurally normal valve. Leaflet separation is normal. Doppler: There is trivial, less than 1+ regurgitation. PULMONIC VALVE: Cusp separation is normal. Doppler: There is trivial, less than 1+ regurgitation. AORTA: The aorta is mildly diseased. There is no evidence for aneurysm. There is no evidence for dissection. Aortic root: The aortic root is not dilated. PULMONARY ARTERY: The main pulmonary artery is normal in size. PERICARDIUM: There is no pericardial effusion. SYSTEMIC VEINS: Superior vena cava: The vessel is normal in size. Measurements LVOT Value LVOT ID, A-P 2.3 cm LVOT mean velocity, S 0.7 m/sec LVOT peak gradient, S 4 mm Hg Stroke volume (SV), LVOT DP 84 ml Stroke index (SV/bsa), LVOT DP 38 ml/m^2 Aortic valve Value Aortic valve peak velocity, S 2 m/sec Aortic valve mean velocity, S 1.2 m/sec DI 0.7 Legend: (L) and (H) adrian values outside specified reference range. Electronically signed by Rachael Murry MD 05/14/2020 10:50 Prior Signatures: Final Dictated: 05/14/2020 10:52 am Dictating Physician: RACHAEL MURRY DO Signed Date and Time: 05/14/2020 10:52 am Signed by: RACHAEL MURRY DO [facility] 05-08-2020 Glucose [Mass/Vol] 78 mg/dL Normal 70-100 [facility] Comment on above: Result Comment: Test performed by glucose meter. Results may be 10%-15% lower than serum/plasma values. (CLIA ID [id number]) Performed By: #### B MP3, PHOS3, HEMOG, PT/AP, MG3 #### [facility] [address] [place] [address] Glucose [Mass/Vol] 77 mg/dL Normal 70-100 [facility] Comment on above: Result Comment: Test performed by glucose meter. Results may be 10%-15% lower than serum/plasma values. (CLIA ID [id number]) Performed By: #### H EMDF #### [facility] [address] [place] [place] [address] Glucose [Mass/Vol] 76 mg/dL Normal 70-100 [facility] Comment on above: Result Comment: Test performed by glucose meter. Results may be 10%-15% lower than serum/plasma values. (CLIA ID [id number]) Performed By: #### B MP3, PHOS3, HEMOG, PT/AP, MG3 #### [facility] [address] [place] [address] Glucose [Mass/Vol] 90 mg/dL Normal 70-100 [facility] Comment on above: Result Comment: Test performed by glucose meter. Results may be 10%-15% lower than serum/plasma values. (CLIA ID [id number]) Performed By: #### B MP3, PHOS3, HEMOG, PT/AP, MG3 #### [facility] [place] [address] [place] [address] Glucose [Mass/Vol] 112 mg/dL High 70-100 [facility] Comment on above: Result Comment: Test performed by glucose meter. Results may be 10%-15% lower than serum/plasma values. (CLIA ID [id number]) Performed By: #### M G3, BMP3 #### [facility] [address] [place] [address] Glucose [Mass/Vol] 138 mg/dL High 70-100 [facility] Comment on above: Result Comment: Test performed by glucose meter. Results may be 10%-15% lower than serum/plasma values. (CLIA ID [id number]) Performed By: #### B MP3, PHOS3, HEMOG, PT/AP, MG3 #### [facility] [address] [place] [address] Glucose [Mass/Vol] 156 mg/dL High 70-100 [facility] Comment on above: Result Comment: Test performed by glucose meter. Results may be 10%-15% lower than serum/plasma values. (CLIA ID [id number]) Performed By: #### B MP3, PHOS3, HEMOG, PT/AP, MG3 #### [facility] [address] [place] [address] Glucose [Mass/Vol] 159 mg/dL High 70-100 [facility] Comment on above: Result Comment: Test performed by glucose meter. Results may be 10%-15% lower than serum/plasma values. (CLIA ID [id number]) Performed By: #### M G3, BMP3 #### [facility] [address] [place] [address] Glucose [Mass/Vol] 142 mg/dL High 70-100 [facility] Comment on above: Result Comment: Test performed by glucose meter. Results may be 10%-15% lower than serum/plasma values. (CLIA ID [id number]) Performed By: #### M G3, BMP3 #### [facility] [address] [place] [address] Glucose [Mass/Vol] 120 mg/dL High 70-100 [facility] Comment on above: Result Comment: Test performed by glucose meter. Results may be 10%-15% lower than serum/plasma values. (CLIA ID [id number]) Performed By: #### M G3, BMP3 #### [facility] [address] [place] [address] Glucose [Mass/Vol] 113 mg/dL High 70-100 [facility] Comment on above: Result Comment: Test performed by glucose meter. Results may be 10%-15% lower than serum/plasma values. (CLIA ID [id number]) Performed By: #### M G3, BMP3 #### [facility] [address] [place] [address] Hematologyon 05-08-2020 ABO and Rh group Nom (Bld) 6200 [facility], [place] Hemogramon 05-08-2020 Erythrocyte distribution width (RBC) [Ratio] 12.8 % Normal 11.5-14.5 [facility] Comment on above: Performed By: #### B MP3, PHOS3, HEMOG, PT/AP, MG3 #### [address] Hematocrit (Bld) [Volume fraction] 23.8 % Low 40.0-52.0 [facility] Comment on above: Performed By: #### B MP3, PHOS3, HEMOG, PT/AP, MG3 #### [address] [address] [place], [place] Hemoglobin (Bld) [Mass/Vol] 8.3 g/dL Low 13.0-18.0 [facility] Comment on above: Performed By: #### B MP3, PHOS3, HEMOG, PT/AP, MG3 #### [address] MCH (RBC) [Entitic mass] 31.2 pg Normal 26.0-34.0 [facility] Comment on above: Performed By: #### B MP3, PHOS3, HEMOG, PT/AP, MG3 #### [address] MCHC (RBC) [Mass/Vol] 35.0 % Normal 32.0-36.0 [facility] Comment on above: Performed By: #### B MP3, PHOS3, HEMOG, PT/AP, MG3 #### [address] MCV (RBC) [Entitic vol] 89.1 fL Normal 80.0-98.0 [facility] Comment on above: Performed By: #### B MP3, PHOS3, HEMOG, PT/AP, MG3 #### [address] Platelet mean volume (Bld) [Entitic vol] 7.6 fL Normal 7.4-10.4 [facility] Comment on above: Performed By: #### B MP3, PHOS3, HEMOG, PT/AP, MG3 #### [facility] [address] [place], [place] Platelets (Bld) [#/Vol] 81 10*3/uL Low 140-440 [facility] Comment on above: Performed By: #### B MP3, PHOS3, HEMOG, PT/AP, MG3 #### [facility] [address] [place], [place] RBC (Bld) [#/Vol] 2.67 10*6/uL Low 4.40-5.90 [facility] Comment on above: Performed By: #### B MP3, PHOS3, HEMOG, PT/AP, MG3 #### [facility] [address] [place], [place] WBC (Bld) [#/Vol] 5.6 10*3/uL Normal 3.6-10.7 [facility] Comment on above: Performed By: #### B MP3, PHOS3, HEMOG, PT/AP, MG3 #### [address] [address] [address] [place], [place] Magnesiumon 05-08-2020 Magnesium [Mass/Vol] 3.5 mg/dL High 1.6-2.3 [facility] Comment on above: Performed By: #### B MP3, PHOS3, HEMOG, PT/AP, MG3 #### [address] [address] [address] [place], [place] Magnesium [Mass/Vol] 3.5 mg/dL High 1.6 - 2 .3 mg/dL [place], [place] Metabolic Panelon 05-08-2020 Sodium [Moles/Vol] [id number] [place], [place] Sodium [Moles/Vol] [id number] mmol/L [place], [place] Sodium [Moles/Vol] released [place], [place] Op Noteon 05-08-2020 Op Note PATIENT: ASCENCION WEIR ADMISSION DATE: 05/08/2020 SURGERY DATE: 05/08/2020 DATE OF : 1950 AGE: 69 ADMITTING PHYSICIAN: Jean Claude Killian MD ATTENDING PHYSICIAN: Jean Claude Killian MD DICTATING PHYSICIAN: Jean Claude Killian MD OPERATIVE RECORD Procedures: 1. CORONARY REVASCULARIZATION X1; REVERSE SAPHENOUS VEIN GRAFT GRAFTED TO THE POSTERIOR DESCENDING BRANCH OF THE RIGHT CORONARY ARTERY. 2. ENDOSCOPIC VEIN HARVESTING FROM THE LEFT THIGH. 3. INTRAOPERATIVE TRANSESOPHAGEAL ECHOCARDIOGRAPHY. 4. SURGICAL AORTIC VALVE REPLACEMENT WITH A [address] J[place]PER BIOPROSTHESIS. Preoperative Diagnosis: Coronary artery disease, symptomatic severe aortic stenosis. Postoperative Diagnosis: Coronary artery disease, symptomatic severe aortic stenosis. Anesthesia: Electrical Engineering Professor: Daxa Sommer. Clinical History: The patient is a 69-year-old gentleman with no aortic valve stenosis and coronary artery disease who was evaluated for potential surgery. He has had progressive symptoms of dyspnea. An echocardiogram demonstrated a mean gradient of 40 mmHg across the aortic valve. The aortic valve area 0.8 cm2. Cardiac catheterization revealed disease within the right coronary artery. There was minor nonobstructive disease within the circumflex. However, has an 80% stenosis of the right coronary artery required revascularization. The risks, benefits, and alternatives of surgery discussed with the patient. The possibility of percutaneous approach versus surgery were discussed. After being probed apprised of the risks, benefits, and alternatives, he wished to proceed with surgery. The various types of valves were discussed and he selected a surgical bioprosthetic heart valve as this would most likely last him for his entire life time. Description of Procedure: The patient was taken to the operative suite and placed under general endotracheal anesthesia. Transesophageal echocardiography was performed. The dictation will follow separately. Essentially, it showed severe aortic stenosis, mild aortic insufficiency, and no other valvular disease. After appropriate time-out and after monitoring lines had been inserted by Department of Anesthesia, a time-out was undertaken. Once he was prepped and draped, the left lower extremity was incised. Greater saphenous vein was procured using an endoscopic vein harvesting technique. The vein was prepared in usual fashion and the incision was closed in usual manner. Simultaneously, median sternotomy was employed. The pericardium was opened and marsupialized. Heparin was administered to obtain an ACT of greater than 400 seconds. Pursestrings were placed and cannulation ensued with a 6.5 mm cannula in distal ascending aorta, cardioplegia needle in the proximal ascending aorta, and venous cannula via the right atrium into the inferior vena cava. Cardiopulmonary bypass was established after a right atrial coronary sinus catheter was placed. Once cardiopulmonary bypass was established, the right superior pulmonary vein left ventricular vent was inserted. We then for after cardiopulmonary bypass was established there was cross-clamped. Cardioplegia was administered both antegrade and retrograde fashion. Greater than 1 L was initially administered and then intermittent aliquots of cold blood were given every 15 minutes. We turned our attention towards grafting the distal right coronary first. A proximal PDA segment was identified, appeared to be free of disease, and a running 7-0 Prolene suture was used to create an end-to-side anastomosis between the reverse saphenous vein graft and the proximal PDA. This anastomosis proceeded smoothly and there was good flow. Next, an aortotomy was performed. We did attach the antegrade perfusion catheter cannula to her catheter to the right coronary graft so that we could administer both retrograde cardioplegia as well as antegrade flow down the right coronary. Once aortotomy was performed the aortic valve was exposed. There was a highly stenotic heavily diseased trileaflet aortic valve. We were able to excise the valve and decalcified the annulus. We measured for [address] [place] bioprosthesis. We that we placed 2-0 Tycron sutures with pledgets on the ventricular side circumferentially in a triangulated fashion avoiding skin. We skipping between the pledgets to avoid gaps and potential perivalvular leak. Once we had placed all the sutures, we placed a needle in a spaced fashion in a triangulated fashion through the sewing ring of the bioprosthesis. This was then lowered into position. All sutures were secured. There was excellent seating of the valve with good clearance of the right and left coronary ostia which emanated retrograde effluent during administration of retrograde cardioplegia. Once we were cut, we visualized the ventricular surface of the valve appeared to be well-seated. We then proceeded with closure of the aorta in 2 layers. Once this was completed, a proximal anastomosis was constructed. The reverse saphenous vein was cut to appropriate length and grafted end-to-side with the ascending aorta. Once this was completed with a 5-0 Prolene suture. Hotshot was administered. The cross-clamp was removed. The cannulas. As a developing, we performed de-airing maneuvers. The ZAINAB was used to be sure that we had de-aired the cardiac chambers and then, we weaned and from the cardiopulmonary bypass. We from cardiopulmonary bypass and interrogation of aortic valve demonstrated excellent valvular function. Again, no other valvular abnormalities were seen. Protamine was administered. Decannulation ensued. All pursestrings secured. Pacing wires were placed. Chest tubes were inserted. We then proceeded with closure after hemostasis was achieved. After we initially placed the wires, we saw a number of areas of bleeding between the intercostal and therefore all wires were removed and hemostasis was achieved once again. Once we had successfully achieved hemostasis, we proceeded with a repeat rewiring with the great wires and reapproximation of the sternum. The overlying tissues were closed in multiple layers. The patient was stable upon transfer to the heart and lung unit. Diskriter Job ID: [id number] Jean Claude Killian MD DOD:05/08/2020 01:39 P EE/dsk DOT:05/08/2020 02:35 P Job Number: [id number] Document Number: [id number] cc: Jean Claude Killian MD [facility] [place] [address] Normal [facility] Otheron 05-08-2020 [place], [place] Interpretation and review of laboratory results Abnormal [place], [place] Test Performed by [facility], [facility] [place], [place] [id number] [place] [address] POCT Glucoseon 05-08-2020 Glucose [Mass/Vol] 84 mg/dL 70 - 100 mg/dL [place], [place] Comment on above: Test performed by gl ucose meter. Results may be 10%-15% lower than serum/plasma values. (CLIA ID [id number]) Test Performed by [facility], [facility] [address] [place], [place] [address] [place] [address] Glucose [Mass/Vol] 78 mg/dL 70 - 100 mg/dL [place], [place] Comment on above: Test performed by gl ucose meter. Results may be 10%-15% lower than serum/plasma values. (CLIA ID [id number]) Test Performed by [facility], [address] [place], [place] [address] [place] [address] Glucose [Mass/Vol] 77 mg/dL 70 - 100 mg/dL [facility] [place], [place] Comment on above: Test performed by gl ucose meter. Results may be 10%-15% lower than serum/plasma values. (CLIA ID [id number]) Test Performed by [facility], [address] [place] [address] [facility] [place] Glucose [Mass/Vol] 76 mg/dL 70 - 100 mg/dL [facility] [place] Comment on above: Test performed by gl ucose meter. Results may be 10%-15% lower than serum/plasma values. (CLIA ID [id number]) Test Performed by [facility], [address] [place] [address] [facility] [place] Glucose [Mass/Vol] 90 mg/dL 70 - 100 mg/dL [facility] [place] Comment on above: Test performed by gl ucose meter. Results may be 10%-15% lower than serum/plasma values. (CLIA ID [id number]) Test Performed by [facility], [address] [place] [address] [facility] [place] Glucose [Mass/Vol] 112 mg/dL High 70 - 100 mg/dL [facility] [place] Comment on above: Test performed by gl ucose meter. Results may be 10%-15% lower than serum/plasma values. (CLIA ID [id number]) Interpretation and review of laboratory results Abnormal [facility] [place] Test Performed by [facility], [address] [place] [address] [facility] [place] Glucose [Mass/Vol] 138 mg/dL High 70 - 100 mg/dL [facility] [place] Comment on above: Test performed by gl ucose meter. Results may be 10%-15% lower than serum/plasma values. (CLIA ID [id number]) Interpretation and review of laboratory results Abnormal [facility] [place] Test Performed by [facility], [address] [place] [address] [facility] [place] Glucose [Mass/Vol] 156 mg/dL High 70 - 100 mg/dL [facility] [place] Comment on above: Test performed by gl ucose meter. Results may be 10%-15% lower than serum/plasma values. (CLIA ID [id number]) Interpretation and review of laboratory results Abnormal [facility] [place] Test Performed by [facility], [address] [place] [address] [facility] [place] Glucose [Mass/Vol] 159 mg/dL High 70 - 100 mg/dL [facility] [place] Comment on above: Test performed by gl ucose meter. Results may be 10%-15% lower than serum/plasma values. (CLIA ID [id number]) Interpretation and review of laboratory results Abnormal [facility] [place] Test Performed by [facility], [address] [place] [address] [facility] [place] Glucose [Mass/Vol] 142 mg/dL High 70 - 100 mg/dL [facility] [place] Comment on above: Test performed by gl ucose meter. Results may be 10%-15% lower than serum/plasma values. (CLIA ID [id number]) Interpretation and review of laboratory results Abnormal [facility] [place] Test Performed by [facility], [address] [place] [address] [facility] Glucose [Mass/Vol] 120 mg/dL High 70 - 100 mg/dL [facility] [place] Comment on above: Test performed by gl ucose meter. Results may be 10%-15% lower than serum/plasma values. (CLIA ID [id number]) Interpretation and review of laboratory results Abnormal [facility] [place] Test Performed by [facility], [address] [place] [address] [facility] [place] Glucose [Mass/Vol] 113 mg/dL High 70 - 100 mg/dL [facility] [place] Comment on above: Test performed by gl ucose meter. Results may be 10%-15% lower than serum/plasma values. (CLIA ID [id number]) Interpretation and review of laboratory results Abnormal [facility] [place] Test Performed by [facility], [address] [place] [address] [facility], [place] PREPARE FRESH FROZEN PLASMAo n 05-08-2020 Blood product unit ID (Dose) [#] [id number] [place], [place] Blood product unit ID (Dose) [#] [id number] [place] PREPARE PLATELETSon 05-08-20 20 ABO and Rh group Nom (Bld) 7300 [place], [place] Blood product unit ID (Dose) [#] [id number] [place] Sodium [Moles/Vol] [id number] [place], [place] Sodium [Moles/Vol] [id number] mmol/L [place] Pheresis Leuko Reducedon Pheresis Leuko Reduced Pheresis Leuko Re duced: [id number] released 05/08/20 11:39 JH4 Unit Blood Type: B Unit Blood Rh: POS Blood Product Code: PA2 Unit Number: [id number] Unit Status: released Barcoded Unit Number: =[id number] Barcoded Product Code: = Barcoded ABO/Rh: =%7300 Unit Expiration: [id number] Normal [facility] Comment on above: Performed By: #### M G3, BMP3 #### [facility] [address] [place], [place] Phosphoruson 05-08-2020 Phosphate [Mass/Vol] 3.2 mg/dL Normal 2.5-4.5 [facility] Comment on above: Performed By: #### B MP3, PHOS3, HEMOG, PT/AP, MG3 #### [facility] [address] [place], [place] Phosphate [Mass/Vol] 3.2 mg/dL 2.5 - 4 .5 mg/dL [place] Protime AND APTTon 0 aPTT Coag (Bld) [Time] 23.9 s Normal 20.0-30.5 [facility] Comment on above: Result Comment: NOTE : The therapeutic time for Heparin anticoagulation, based on Xa activity inhibition, is an APTT of 46-80 seconds. Performed By: #### B MP3, PHOS3, HEMOG, PT/AP, MG3 #### [facility] [address] [place], [place] INR Coag (PPP) [Relative time] 1.5 High 0.9-1.1 [facility] Comment on above: Result Comment: Naeem mmended Anticoagulant Therapy: SEE BELOW ----- INR of 2.0 - 3.0 : - Prophylaxis of Venous Thrombosis (high-risk surgery) - Treatment of Venous Thrombosis - Treatment of Pulmonary Embolism (Includes tissue heart valves, Acute Myocardial Infarction to prevent systemic embolism, Valvular Heart Disease, and Atrial Fibrillation) ----- INR of 2.5 - 3.5 : - Mechanical Prosthetic Valves (high risk) - If oral anticoagulant therapy is used to prevent Myocardial Infarction Performed By: #### B MP3, PHOS3, HEMOG, PT/AP, MG3 #### [address] PT Coag (PPP) [Time] 15.7 s High 9.0-12.0 [facility] Comment on above: Result Comment: . Performed By: #### B MP3, PHOS3, HEMOG, PT/AP, MG3 #### [facility] [address] Protime-INRon 05-08-2020 INR Coag (PPP) [Relative time] 1.1 {INR} [place], [place] Comment on above: Recommended Anticoag ulant Therapy: SEE BELOW ----- INR of 2.0 - 3.0 : - Prophylaxis of Venous Thrombosis (high-risk surgery) - Treatment of Venous Thrombosis - Treatment of Pulmonary Embolism (Includes tissue heart valves, Acute Myocardial Infarction to prevent systemic embolism, Valvular Heart Disease, and Atrial Fibrillation) ----- INR of 2.5 - 3.5 : - Mechanical Prosthetic Valves (high risk) - If oral anticoagulant therapy is used to prevent Myocardial Infarction Interpretation and review of laboratory results Abnormal [place], [place] PT Coag (PPP) [Time] 12.1 s [place] 9 - 12 s [place], [place] Comment on above: . Test Performed by [facility], [address], [place] [id number] [place] [address] Protime/INR & PTTon 05-08-20 20 aPTT Coag (Bld) [Time] 23.9 s 20 - 30.5 s [place], [place] Comment on above: NOTE: The therapeuti c time for Heparin anticoagulation, based on Xa activity inhibition, is an APTT of 46-80 seconds. INR Coag (PPP) [Relative time] 1.5 {INR} [place], [place] Comment on above: Recommended Anticoag ulant Therapy: SEE BELOW ----- INR of 2.0 - 3.0 : - Prophylaxis of Venous Thrombosis (high-risk surgery) - Treatment of Venous Thrombosis - Treatment of Pulmonary Embolism (Includes tissue heart valves, Acute Myocardial Infarction to prevent systemic embolism, Valvular Heart Disease, and Atrial Fibrillation) ----- INR of 2.5 - 3.5 : - Mechanical Prosthetic Valves (high risk) - If oral anticoagulant therapy is used to prevent Myocardial Infarction Interpretation and review of laboratory results Abnormal [place], [place] PT Coag (PPP) [Time] 15.7 s [facility] 9 - 12 s [place], [place] Comment on above: . Test Performed by [facility], [address] [place] [address] Surgical Pathologyon 020 Surgical Pathology [id number] [facility] PATHOLOG[facility] AND LABORATORY MEDICINE [address] [place] [address] FINAL SURGICAL PATHOLOGY REPORT NAME: ASCENCION WEIR : 1950 69 Y M [facility] NO.: [id number] LOCATION: [address] [place] [address] PROCEDURE 05/08/2020 DATE: SURGEON: JEAN CLAUDE KILLIAN M.D. RECEIVED 05/09/2020 DATE: ATTENDING: JEAN CLAUDE KILLIAN M.D. REPORT DATE: 05/12/2020 COPIES TO: DIAGNOSIS: AORTIC VALVE LEAFLETS, EXCISION - VALVULAR TISSUE WITH PROMINENT CALCIFICATION AND FIBROSIS Comment: Negative for acute inflammation. JAW/JAW Signature> KARINE BOUCHER M.D. CLINICAL INFORMATION: I25.10, I35.0 SPECIMEN: HEART VALVE GROSS DESCRIPTION: Received in formalin labeled aortic valve leaflets are two valve leaflets measuring 2.5 and 4 cm along the free edge and ranging from 1.3 to 1.5 cm free edge to base. Lambl's excrescences are present. The larger segment contains a median raphe. The leaflets show extensive fibrosis and calcifications. Possible fenestrations are present. Random sections are submitted in a single cassette. JCK/JAF Disclaimer: The following statement applies to all immunohistochemistry, in situ hybridization, molecular studies, and immunofluorescence testing. The use of one or more reagents in the above tests is regulated as an analyte specific reagent (ASR). These tests were developed and their performance characteristics determined by the clinical laboratories of [facility]. They have not been cleared by the US Food and Drug Administration (FDA). The FDA has determined that such clearance or approval is not necessary. All the above immunostains were performed on paraffin embedded tissue. Appropriate positive and negative controls (where applicable) were run in parallel with the patient's specimen; these controls showed expected staining pattern, with acceptable intensity of staining. Immunohistochemical assays have not been validated on decalcified tissues. Results should be interpreted with caution given the raised possibility of false negativity on decalcified specimens. Professional Performing Location: [address] [place] [address]. DEPARTMENT OF PATHOLOGY AND LABORATORY MEDICINE [place], [place] [address] Normal [facility] XR CHEST PORTABLEon 05-08-20 [facility], [facility] Incoming Radiology Results From [facility] - 05/08/2020 1:38 PM EDT Patient Name: ASCENCION WEIR ---Diagnostic Radiology--- Exam Date/Time 05/08/2020 12:54:00 EDT Exam CR Chest Portable Ordering Physician JEAN CLAUDE KILLIAN Accession Number [id number] CPT4 Codes 37148 () Reason For Exam ETT placement Report Reason for examination: ET tube placement. A portable chest is obtained at 1231 hours. Comparison is dated 05/01/2020. The patient is mildly rotated. An ET tube is present with the tip approximately 3 cm above the rey. A Greenwood-Perez catheter is present on the right with the tip overlying the right pulmonary artery. Catheter tubing overlies the right hemithorax likely representing thoracostomy tubes. The trachea is midline. The mediastinum appears widened. The heart size is poorly evaluated. There is opacity overlying the medial right hemithorax which could represent collapsed lung or possibly a pericardial effusion. There is mild vascular congestion. No significant pleural effusion or pneumothorax is seen. IMPRESSION: Opacity overlying the medial right hemithorax of uncertain etiology. This could represent collapsed lung or large pericardial effusion as the right heart border is poorly visualized. Follow-up is recommended. Report Dictated on --- Final --- Dictated: 05/08/2020 1:30 pm Dictating Physician: MD MOYA LAUREN B Signed Date and Time: 05/08/2020 1:37 pm Signed by: MD MOYA LAUREN B Transcribed Date and Time: 05/08/2020 1:30 [facility], [place] Patient Name: ASCENCION MONTOYA ---Diagnostic Radiology--- Exam Date/Time 05/08/2020 12:54:00 EDT Exam CR Chest Portable Ordering Physician JEAN CLAUDE KILLIAN Accession Number [id number] CPT4 Codes 09367 () Reason For Exam ETT placement Report Reason for examination: ET tube placement. A portable chest is obtained at 1231 hours. Comparison is dated 05/01/2020. The patient is mildly rotated. An ET tube is present with the tip approximately 3 cm above the rey. A Greenwood-Perez catheter is present on the right with the tip overlying the right pulmonary artery. Catheter tubing overlies the right hemithorax likely representing thoracostomy tubes. The trachea is midline. The mediastinum appears widened. The heart size is poorly evaluated. There is opacity overlying the medial right hemithorax which could represent collapsed lung or possibly a pericardial effusion. There is mild vascular congestion. No significant pleural effusion or pneumothorax is seen. IMPRESSION: Opacity overlying the medial right hemithorax of uncertain etiology. This could represent collapsed lung or large pericardial effusion as the right heart border is poorly visualized. Follow-up is recommended. Report Dictated on --- Final --- Dictated: 05/08/2020 1:30 pm Dictating Physician: MD MOYA LAUREN B Signed Date and Time: 05/08/2020 1:37 pm Signed by: MD MOYA LAUREN B Transcribed Date and Time: 05/08/2020 1:30 [place] [id number] 05-06-2020 SARS-CoV-2 SARS-CoV-2 --> Statu s: F Not Detected Expected Result: Not Detected _ Real-time, RT-PCR performed on the BD MAX System by the [facility]. Negative results do not preclude SARS-CoV-2 infection and should not be used as the sole basis for treatment or other patient management decisions. This assay was developed by [employer] and distributed under an Emergency Use Authorization (EUA) granted by the FDA for the qualitative detection of SARS-CoV-2 nucleic acid. Results were determined from a pool consisting of specimens from additional patients. This test was modified, and its performance characteristics, showing minimal loss of sensitivity, have been validated by the [facility]. Approval is pending review by the U. S. Food and Drug Administration. If symptoms are severe and persist, testing a new specimen may be warranted. Additionally, IgG testing may be considered for patients more than 7-10 days post onset of symptoms. Expected Result: Not Detected _ Real-time, RT-PCR performed on the BD MAX System by the [facility]. Negative results do not preclude SARS-CoV-2 infection and should not be used as the sole basis for treatment or other patient management decisions. This assay was developed by [employer] and distributed under an Emergency Use Authorization (EUA) granted by the FDA for the qualitative detection of SARS-CoV-2 nucleic acid. Results were determined from a pool consisting of specimens from additional patients. This test was modified, and its performance characteristics, showing minimal loss of sensitivity, have been validated by the [facility]. Approval is pending review by the U. S. Food and Drug Administration. If symptoms are severe and persist, testing a new specimen may be warranted. Additionally, IgG testing may be considered for patients more than 7-10 days post onset of symptoms. Normal [facility] Comment on above: Order Comment: PRETE STING Performed By: #### M G3, BMP3 #### [facility] [address] [place] [address] Staph Aureus Complete Nasalo n 05-06-2020 Staph Aureus Complete Nasal Staph Screen --> Status: F No S. aureus detected. Negative nasal MRSA PCR has a high negative predictive value for MRSA pneumonia. Consider stopping vancomycin if no other clinical indication. Contact Antimicrobial Stewardship for further recommendations. The analytical performance characteristics of this assay have been determined by [facility] in accordance with CLIA regulations. The modifications have not been cleared or approved by the U. S. Food and Drug Administration; however, the FDA has determined that such clearance or approval is not necessary. Negative nasal MRSA PCR has a high negative predictive value for MRSA pneumonia. Consider stopping vancomycin if no other clinical indication. Contact Antimicrobial Stewardship for further recommendations. The analytical performance characteristics of this assay have been determined by [facility] in accordance with CLIA regulations. The modifications have not been cleared or approved by the U. S. Food and Drug Administration; however, the FDA has determined that such clearance or approval is not necessary. Normal [facility] Comment on above: Performed By: #### M G3, BMP3 #### [facility] [address] [place] [address] APTTon 05-01-2020 aPTT Coag (Bld) [Time] 27.6 s Normal 20.0-30.5 [facility] Comment on above: Result Comment: NOTE : The therapeutic time for Heparin anticoagulation, based on Xa activity inhibition, is an APTT of 46-80 seconds. Performed By: #### Sandie , BMP3 #### [address] [address] aPTT Coag (Bld) [Time] 27.6 s 20 - 30.5 s [place], [place] Comment on above: NOTE: The therapeuti c time for Heparin anticoagulation, based on Xa activity inhibition, is an APTT of 46-80 seconds. CBC auto differentialon Absolute Baso # 0.0 10*3/uL 0 - 0.2 10*3/uL [place] Absolute Neut # 3.7 10*3/uL 1.8 - 7 10*3/uL [place] Basophils/100 WBC (Bld) 0.8 % 0 - 2 % [place] Eosinophils (Bld) [#/Vol] 0.2 10*3/uL 0 - 0.5 10*3/uL [place] Eosinophils/100 WBC (Bld) 3.3 % 1 - 6 % [place] Erythrocyte distribution width (RBC) [Ratio] 13.1 % 11.5 - 14.5 % [place] Granulocytes/100 WBC (Bld) 59.2 % 40 - 80 % [place] Hematocrit (Bld) [Volume fraction] 41.0 % 40 - 52 % [place] Hemoglobin (Bld) [Mass/Vol] 14.3 g/dL 13 - 18 g/dL [place] Interpretation and review of laboratory results Abnormal [place] Lymphocytes (Bld) [#/Vol] 1.6 10*3/uL 1 - 4.3 10*3/uL [place] Lymphocytes/100 WBC (Bld) 26.2 % 20 - 40 % [place] MCH (RBC) [Entitic mass] 31.1 pg 26 - 34 pg [place] MCHC (RBC) [Mass/Vol] 34.8 % 32 - 36 % [place], [place] MCV (RBC) [Entitic vol] 89.4 fL 80 - 98 fL [place] Monocytes (Bld) [#/Vol] 0.7 10*3/uL 0 - 0.8 10*3/uL [place] Monocytes/100 WBC (Bld) 10.5 % High 2 - 10 % [place] Platelet mean volume (Bld) [Entitic vol] 7.8 fL 7.4 - 10.4 fL [place] Platelets (Bld) [#/Vol] 199 10*3/uL 140 - 440 10*3/uL [place] RBC (Bld) [#/Vol] 4.58 10*6/uL 4.4 - 5.9 10*6/uL [place] WBC (Bld) [#/Vol] 6.2 10*3/uL 3.6 - 10.7 10*3/uL [place] Test Performed by [id number] [place] [address] CR Chest PA/LATon 05-01-2020 CR Chest PA/LAT Patient Name: ASCENCION MONTOYA Diagnostic Radiology Exam Date/Time 05/01/2020 12:37:14 EDT Exam CR Chest PA/LAT Ordering Physician STALIN VAUGHN ALLISON Accession Number [id number] CPT4 Codes 26263 () Reason For Exam preoperative evaluation Report CHEST X-RAY PA/LATERAL CLINICAL INDICATION: Preoperative examination Frontal and lateral plain films of the chest were obtained. COMPARISON: None FINDINGS: The cardiac silhouette is within normal limits. No focal consolidation is seen within the lungs. No pleural effusion or pneumothorax is identified. Degenerative changes of the thoracic spine are noted. IMPRESSION: No acute cardiopulmonary disease. Report Dictated on Final Dictated: 05/01/2020 2:11 pm Dictating Physician: MD PANCHAL JONATHAN R Signed Date and Time: 05/01/2020 2:11 pm Signed by: MD PANCHAL JONATHAN R Transcribed Date and Time: 05/01/2020 2:11 Normal [facility] Comp Metabolic Panelon 05-01 ALT [Catalytic activity/Vol] 19 U/L Normal 0-49 [facility] Comment on above: Result Comment: The ALT test is performed by an updated assay method. Please note that the reference intervals have been changed and are now sex specific. Performed By: #### Sandie G3 BMP3 #### [facility] [address] [place], [place] Calcium [Mass/Vol] 9.7 mg/dL Normal 8.4-10.4 [facility] Comment on above: Performed By: #### Sandie G3, BMP3 #### [place] [address] [address] [place], [place] ALP [Catalytic activity/Vol] 81 U/L Normal 38-126 [facility] Comment on above: Performed By: #### Sandie G3, BMP3 #### [place] [address] [address] [place], [place] Anion gap [Moles/Vol] 10 Normal [facility] Comment on above: Performed By: #### Sandie Cobb, BMP3 #### [place] [address] [address] [place], [place] AST [Catalytic activity/Vol] 28 U/L Normal 15-46 [facility] Comment on above: Performed By: #### Sandie G3, BMP3 #### [place] [address] [address] [place], [place] Bilirubin [Mass/Vol] 0.4 mg/dL Normal 0.2-1.3 [facility] Comment on above: Performed By: #### Sandie G3, BMP3 #### [facility] [address] [place], [place] CO2 [Moles/Vol] 25 mmol/L Normal 22-30 [facility] Comment on above: Performed By: #### Sandie G3, BMP3 #### [place] [address] [address] [place], [place] Creatinine [Mass/Vol] 0.91 mg/dL Normal 0.52-1.25 [facility] Comment on above: Performed By: #### Sandie G3, BMP3 #### [place] [address] [place] [address] GFR/1.73 sq M predicted among blacks MDRD (S/P/Bld) [Vol rate/Area] mL/min/{1.73_m2} Normal >60 [facility] Comment on above: Performed By: #### Sandie Cobb BMP3 #### [facility] [address] [place] [address] GFR/1.73 sq M predicted among non-blacks MDRD (S/P/Bld) [Vol rate/Area] 84.1 mL/min/{1.73_m2} Normal >60 [facility] Comment on above: Result Comment: KDIG O guidelines provide the following GFR categories: Stage GFR(ml/min/1.73 m2) Terms G1 >=90 Normal or high G2 60-89 Mildly decreased* G3a 45-59 Mildly to moderately decreased G3b 30-44 Moderately to severely decreased G4 15-29 Severely decreased G5 <15 Kidney failure *Relative to young adult level. In the absence of evidence of kidney damage, neither GFR category G1 nor G2 fulfill the criteria for CKD. The CKD-EPI equation is validated in individuals 18 years of age and older. Currently the best equation for estimating glomerular filtration rate (GFR) from serum creatinine in children is the Bedside Garza equation. It is less accurate in patients with extremes of muscle mass, restriction of dietary protein, ingestion of creatine, extra-renal metabolism of creatinine, or treatment with medications that affect renal tubular creatinine secretion. Performed By: #### Sandie Cobb BMP3 #### [facility] [facility] [address] [place] [address] Glucose [Mass/Vol] 84 mg/dL Normal 70-100 [facility] Comment on above: Performed By: #### Sandie G3, BMP3 #### [facility] [facility] [address] [place] [address] Protein [Mass/Vol] 7.8 g/dL Normal 6.3-8.2 [facility] Comment on above: Performed By: #### Sandie G3, BMP3 #### [facility] [facility] [address] [place] [address] Urea nitrogen [Mass/Vol] 16 mg/dL Normal 7-20 [facility] Comment on above: Performed By: #### M G3, BMP3 #### [facility] [address] [place], [place] Potassium [Moles/Vol] 5.5 mmol/L High 3.5-5.1 [facility] Comment on above: Performed By: #### Sandie G3, BMP3 #### [facility] [address] [place], [place] Albumin [Mass/Vol] 4.7 g/dL Normal 3.5-5.0 [facility] Comment on above: Performed By: #### Sandie G3, BMP3 #### [place] [address] [address] [place], [place] Chloride [Moles/Vol] 100 mmol/L Normal 98-107 [facility] Comment on above: Performed By: #### Sandie G3, BMP3 #### [place] [address] [address] [place], [place] Sodium [Moles/Vol] 135 mmol/L Normal 135-145 [facility] Comment on above: Performed By: #### Sandie G3, BMP3 #### [place] [address] [address] [place], [place] Complete Urinalysison 2019 Appearance (U) Clear Normal Clear [facility] Comment on above: Result Comment: . Performed By: #### Sandie G3, BMP3 #### [place] [address] [address] [place], [place] Bilirubin,Urine Negative Normal Negative [facility] Comment on above: Result Comment: . Performed By: #### Sandie G3, BMP3 #### [place] [address] [address] [place], [place] Color (U) Yellow Normal Lt. Yellow [facility] Comment on above: Result Comment: . Performed By: #### Sandie G3, BMP3 #### [place] [address] [address] [place], [place] Glucose Ql (U) Normal Normal Normal (<70) [facility] Comment on above: Result Comment: . Performed By: #### Sandie G3, BMP3 #### [place] [address] [place], [place] Ketone,Urine Negative Normal Negative [facility] Comment on above: Result Comment: . Performed By: #### M G3, BMP3 #### [place] [address] [address] [place], [place] Leukocytes,Urine Negative Normal Negative [facility] Comment on above: Result Comment: . Performed By: #### Sandie G3, BMP3 #### [facility] [address] [place], [place] Nitrites,Urine Negative Normal Negative [facility] Comment on above: Result Comment: . Performed By: #### Sandie G3, BMP3 #### [place] [address] [address] [place], [place] Occult Blood,Urine Negative Normal Negative [facility] Comment on above: Result Comment: . Performed By: #### Sandie G3, BMP3 #### [place] [address] [address] [place], [place] pH (U) 6.0 Normal 5.0-8.0 [facility] Comment on above: Result Comment: . Performed By: #### Sandie Cobb, BMP3 #### [place] [address] [place], [place] Protein (U) [Mass/Vol] Negative Normal Negative [facility] Comment on above: Result Comment: . Performed By: #### Sandie G3, BMP3 #### [place] [address] [address] [place], [place] Specific [place],Urine 1.015 Normal 1.005 - 1.030 [facility] Comment on above: Result Comment: . Performed By: #### Snadie G3, BMP3 #### [place] [address] [address] [place], [place] Urobilinogen,Urine Normal Normal Normal (0-1) [facility] Comment on above: Result Comment: . Performed By: #### Sandie G3, BMP3 #### [place] [address] [address] [place], [place] Comprehensive Metabolic Pane servando 05-01-2020 Albumin [Mass/Vol] 4.7 g/dL 3.5 - 5 g/dL [facility], [place] ALP [Catalytic activity/Vol] 81 U/L 38 - 126 U/L [place] ALT [Catalytic activity/Vol] 19 U/L 0 - 49 U/L [place] Comment on above: The ALT test is perf ormed by an updated assay method. Please note that the reference intervals have been changed and are now sex specific. Anion gap [Moles/Vol] 10 mmol/L [place], [place] AST [Catalytic activity/Vol] 28 U/L 15 - 46 U/L [place] Bilirubin Ql (U) 0.4 mg/dL 0.2 - 1.3 mg/dL [place] Calcium [Mass/Vol] 9.7 mg/dL 8.4 - 10. 4 mg/dL [place] Chloride [Moles/Vol] 100 mmol/L 98 - 10 7 mmol/L [place] CO2 [Moles/Vol] 25 mmol/L 22 - 30 mmol/L [place] Creatinine [Mass/Vol] 0.91 mg/dL 0.52 - 1.25 mg/dL [place] EGFR IF NonAfrican [place] 84.1 mL/min >60 [place] Comment on above: KDIGO guidelines pro vide the following GFR categories: Stage GFR(ml/min/1.73 m2) Terms G1 >=90 Normal or high G2 60-89 Mildly decreased* G3a 45-59 Mildly to moderately decreased G3b 30-44 Moderately to severely decreased G4 15-29 Severely decreased G5 <15 Kidney failure *Relative to young adult level. In the absence of evidence of kidney damage, neither GFR category G1 nor G2 fulfill the criteria for CKD. The CKD-EPI equation is validated in individuals 18 years of age and older. Currently the best equation for estimating glomerular filtration rate (GFR) from serum creatinine in children is the Bedside Garza equation. It is less accurate in patients with extremes of muscle mass, restriction of dietary protein, ingestion of creatine, extra-renal metabolism of creatinine, or treatment with medications that affect renal tubular creatinine secretion. GFR/1.73 sq M predicted among blacks MDRD (S/P/Bld) [Vol rate/Area] mL/min/{1.73_m2} >60 mL/min [place] Glucose [Mass/Vol] 84 mg/dL 70 - 100 mg/dL [place] Interpretation and review of laboratory results Abnormal [place] Potassium [Moles/Vol] 5.5 mmol/L High 3.5 - 5.1 mmol/L [place] Protein [Mass/Vol] 7.8 g/dL 6.3 - 8.2 g/dL [place] Sodium [Moles/Vol] 135 mmol/L 135 - 145 mmol/L [place] Urea nitrogen [Mass/Vol] 16 mg/dL 7 - 20 mg/dL [place] Hemoglobin A1Con 05-01-2020 HbA1c (Bld) [Mass fraction] 117 mg/dL Normal [facility] Comment on above: Performed By: #### M G3, BMP3 #### [address] HbA1c (Bld) [Mass fraction] 5.7 % Normal 4.0-6.0 [facility] Comment on above: Result Comment: --Hg bA1C levels may not be accurate in patients who have renal disease, received recent blood transfusions, are anemic, or who have dyshemoglobinemia. Performed By: #### M G3, BMP3 #### [address] Hemoglobin A1con 05-01-2020 eAG 117 mg/dL [place] HbA1c (Bld) [Mass fraction] 5.7 % 4 - 6 % [place] Comment on above: --HgbA1C levels may not be accurate in patients who have renal disease, received recent blood transfusions, are anemic, or who have dyshemoglobinemia. Test Performed by [facility], [address] [place] [address] [place] Hemogram w/ Autodiffon 05-01 Abs Baso Cnt 0.0 10*3/uL Normal 0.0-0.2 [facility] Comment on above: Performed By: #### M G3, BMP3 #### [address] Abs Neutrophile Cnt 3.7 10*3/uL Normal 1.8-7.0 [facility] Comment on above: Performed By: #### M G3, BMP3 #### [facility] [address] [place] [address] Basophils/100 WBC (Bld) 0.8 % Normal 0.0-2.0 [facility] Comment on above: Performed By: #### M G3, BMP3 #### [facility] [address] [place], [place] Eosinophils (Bld) [#/Vol] 0.2 10*3/uL Normal 0.0-0.5 [facility] Comment on above: Performed By: #### M G3, BMP3 #### [facility] [address] [place], [place] Eosinophils/100 WBC (Bld) 3.3 % Normal 1.0-6.0 [facility] Comment on above: Performed By: #### M G3, BMP3 #### [facility] [address] [place], [place] Erythrocyte distribution width (RBC) [Ratio] 13.1 % Normal 11.5-14.5 [facility] Comment on above: Performed By: #### M G3, BMP3 #### [facility] [address], [place] Granulocytes/100 WBC (Bld) 59.2 % Normal 40.0-80.0 [facility] Comment on above: Performed By: #### M G3, BMP3 #### [facility] [address], [place] Hematocrit (Bld) [Volume fraction] 41.0 % Normal 40.0-52.0 [facility] Comment on above: Performed By: #### M G3, BMP3 #### [facility] [address], [place] Hemoglobin (Bld) [Mass/Vol] 14.3 g/dL Normal 13.0-18.0 [facility] Comment on above: Performed By: #### M G3, BMP3 #### [facility] [address], [place] Lymphocytes (Bld) [#/Vol] 1.6 10*3/uL Normal 1.0-4.3 [facility] Comment on above: Performed By: #### M G3, BMP3 #### [facility] [address], [place] Lymphocytes/100 WBC (Bld) 26.2 % Normal 20.0-40.0 [facility] Comment on above: Performed By: #### Sandie G3, BMP3 #### [facility] [address], [place] MCH (RBC) [Entitic mass] 31.1 pg Normal 26.0-34.0 [facility] Comment on above: Performed By: #### M G3, BMP3 #### [facility] [address], [place] MCHC (RBC) [Mass/Vol] 34.8 % Normal 32.0-36.0 [facility] Comment on above: Performed By: #### Sandie G3, BMP3 #### [place] [address], [place] MCV (RBC) [Entitic vol] 89.4 fL Normal 80.0-98.0 [facility] Comment on above: Performed By: #### Sandie G3, BMP3 #### [place] [address], [place] Monocytes (Bld) [#/Vol] 0.7 10*3/uL Normal 0.0-0.8 [facility] Comment on above: Performed By: #### Sandie G3, BMP3 #### [facility] [address], [place] Monocytes/100 WBC (Bld) 10.5 % High 2.0-10.0 [facility] Comment on above: Performed By: #### M G3, BMP3 #### [facility] [address], [place] Platelet mean volume (Bld) [Entitic vol] 7.8 fL Normal 7.4-10.4 [facility] Comment on above: Performed By: #### Sandie G3, BMP3 #### [place] [address], [place] Platelets (Bld) [#/Vol] 199 10*3/uL Normal 140-440 [facility] Comment on above: Performed By: #### Sandie G3, BMP3 #### [facility] [address], [place] RBC (Bld) [#/Vol] 4.58 10*6/uL Normal 4.40-5.90 [facility] Comment on above: Performed By: #### Sandie G3, BMP3 #### [facility] [address], [place] WBC (Bld) [#/Vol] 6.2 10*3/uL Normal 3.6-10.7 [facility] Comment on above: Performed By: #### Sandie G3, BMP3 #### [facility] [address], [place] Magnesiumon 05-01-2020 Magnesium [Mass/Vol] 1.6 mg/dL Normal 1.6-2.3 [facility] Comment on above: Performed By: #### Sandie G3, BMP3 #### [facility] [address], [place] Magnesium [Mass/Vol] 1.6 mg/dL 1.6 - 2 .3 mg/dL [place], [place] Metabolic Panelon 05-01-2020 Sodium [Moles/Vol] Negative [place], [place] Otheron 05-01-2020 Test Performed by [address] Test Performed by [id number] [place] [address] Prothrombin Timeon 0 INR Coag (PPP) [Relative time] 1.0 Normal 0.9-1.1 [facility] Comment on above: Result Comment: Naeem mmended Anticoagulant Therapy: SEE BELOW ----- INR of 2.0 - 3.0 : - Prophylaxis of Venous Thrombosis (high-risk surgery) - Treatment of Venous Thrombosis - Treatment of Pulmonary Embolism (Includes tissue heart valves, Acute Myocardial Infarction to prevent systemic embolism, Valvular Heart Disease, and Atrial Fibrillation) ----- INR of 2.5 - 3.5 : - Mechanical Prosthetic Valves (high risk) - If oral anticoagulant therapy is used to prevent Myocardial Infarction Performed By: #### Sandie G3, BMP3 #### [place] [address] [place], [place] PT Coag (PPP) [Time] 11.3 s Normal 9.0-12.0 [facility] Comment on above: Result Comment: . Performed By: #### Sandie G3, BMP3 #### [place] [address] [place], [place] Protime-INRon 05-01-2020 INR Coag (PPP) [Relative time] 1.0 {INR} [place], [place] Comment on above: Recommended Anticoag ulant Therapy: SEE BELOW ----- INR of 2.0 - 3.0 : - Prophylaxis of Venous Thrombosis (high-risk surgery) - Treatment of Venous Thrombosis - Treatment of Pulmonary Embolism (Includes tissue heart valves, Acute Myocardial Infarction to prevent systemic embolism, Valvular Heart Disease, and Atrial Fibrillation) ----- INR of 2.5 - 3.5 : - Mechanical Prosthetic Valves (high risk) - If oral anticoagulant therapy is used to prevent Myocardial Infarction PT Coag (PPP) [Time] 11.3 s 9 - 12 s [place], [place] Comment on above: . TS GELon 05-01-2020 TS GEL ABO Group: O Rh, Gel: NEG Antibody Screen Gel: NEG Normal [facility] Comment on above: Performed By: #### Sandie G3, BMP3 #### [place] [address] [place], [place] TYPE AND SCREENon 05-01-2020 Sodium [Moles/Vol] O [place], [place] Test Performed by [facility], [address] [place] [id number] [place] [address] Urinalysison 05-01-2020 Appearance (U) Clear Clear [place], [place] Comment on above: . Bilirubin Urine Negative Negative mg/dL [place], [place] Comment on above: . Color (U) Yellow Lt. Yellow [place], [place] Comment on above: . Glucose, Ur Normal Normal (<70) mg/dL [place], [place] Comment on above: . Ketones Ql (U) Negative Negative mg/dL [place], [place] Comment on above: . LEUKOCYTES, UA Negative Negative Mary/uL [place], [place] Comment on above: . Nitrite, Urine Negative Negative NA [place], [place] Comment on above: . Occult Blood,Urine Negative Negative mg/dL [place], [place] Comment on above: . pH (U) 6.0 [pH] [place], [place] Comment on above: . Protein (U) [Mass/Vol] Negative Negat antonio mg/dL [place], [place] Comment on above: . Specific [place], Urine 1.015 [place], [place] Comment on above: . Urobilinogen, Urine Normal Normal (0-1) mg/dL [place], [place] Comment on above: . Test Performed by [facility], [address] [place] [id number] [place], [place] XR CHEST (2 VW)on 05-01-2020 Patient Name: ASCENCION MONTOYA ---Diagnostic Radiology--- Exam Date/Time 05/01/2020 12:37:14 EDT Exam CR Chest PA/LAT Ordering Physician STALIN VAUGHN ALLISON Accession Number [id number] CPT4 Codes 97384 () Reason For Exam preoperative evaluation Report CHEST X-RAY PA/LATERAL CLINICAL INDICATION: Preoperative examination Frontal and lateral plain films of the chest were obtained. COMPARISON: None FINDINGS: The cardiac silhouette is within normal limits. No focal consolidation is seen within the lungs. No pleural effusion or pneumothorax is identified. Degenerative changes of the thoracic spine are noted. IMPRESSION: No acute cardiopulmonary disease. Report Dictated on --- Final --- Dictated: 05/01/2020 2:11 pm Dictating Physician: MD PANCHAL JONATHAN R Signed Date and Time: 05/01/2020 2:11 pm Signed by: MD PANCHAL JONATHAN R Transcribed Date and Time: 05/01/2020 2:11 [place], [place] [place] Incoming Radiology Results From [facility] - 05/01/2020 2:13 PM EDT Patient Name: ASCENCION WEIR ---Diagnostic Radiology--- Exam Date/Time 05/01/2020 12:37:14 EDT Exam CR Chest PA/LAT Ordering Physician STALIN VAUGHN LIZ Accession Number [id number] CPT4 Codes 57259 () Reason For Exam preoperative evaluation Report CHEST X-RAY PA/LATERAL CLINICAL INDICATION: Preoperative examination Frontal and lateral plain films of the chest were obtained. COMPARISON: None FINDINGS: The cardiac silhouette is within normal limits. No focal consolidation is seen within the lungs. No pleural effusion or pneumothorax is identified. Degenerative changes of the thoracic spine are noted. IMPRESSION: No acute cardiopulmonary disease. Report Dictated on Workstation: [id number] --- Final --- Dictated: 05/01/2020 2:11 pm Dictating Physician: MD PANCHAL JONATHAN R Signed Date and Time: 05/01/2020 2:11 pm Signed by: MD PANCHAL JONATHAN R Transcribed Date and Time: 05/01/2020 2:11 [place], [place] PROGRESSon 12-06-2018 Protein mass conc HNO ID: [id number] Author: Mag (Ct) ISABELLE [place] Service: ? Author Type: Clinical Dog Warden Type: Progress Notes Filed: 12/06/2018 1:40 PM Note Text: NAME:Ascencion Weir DATE: December 06, 2018 CCF#: [id number] Spine X-Ray(s): Lumbar AP / LAT / OBL COMPLETED TECH ID SIGN: WILFRID PABLO [facility] XR LUMBAR PARS 4V AP/LAT/OBL X2on 12-06-2018 XR LUMBAR PARS 4V AP/LAT/OBL X2 * * *Final Report* * * DATE OF EXAM: Dec 06 2018 1:38PM BRANDIE [id number] - XR LUMBAR PARS 4V AP/LAT/OBL X2 / PROCEDURE REASON: multiple diagnoses * * * * Physician Interpretation * * * * LUMBAR SPINE: EXAM DATE/TIME: 12/06/2018 1:38 PM HISTORY: 68 years old Indication: Lumbar degenerative disc disease Lumbar spondylosis Postlaminectomy syndrome LOW BACK PAIN TECHNIQUE: Views obtained: XR LUMBAR PARS 4V AP/LAT/OBL X2 Comparison: 01/13/2016. RESULT: Findings: Disc space narrowing at multiple levels of the lumbar spine and lower thoracic spine. Severe degenerative changes in the posterior elements most severe at L3-S1. Moderate S-shaped scoliosis. No fractures or dislocations are seen. IMPRESSION: Severe degenerative changes similar to the previous study Hotel Director: JEF Transcribe Date/Time: Dec 06 2018 6:41P Dictated by : RACHEL CHUNG DO This examination was interpreted and the report reviewed and electronically signed by: RACHEL CHUNG DO on Dec 06 2018 6:43PM EST [id number] [facility] Office Visit: postop surgery 03/23/1705-18-2017 Protein mass conc Done Invalid Interpretation Code [facility] Work Phone: Tobacco smoking status NHIS Former Invalid Interpretation Code [facility] Work Phone: [phone] Tobacco smoking status NHIS Former smoker Invalid Interpretation Code [facility] Work Phone: [phone] Microbiology: Culture, Fungu s w/ [id number] 05-06-2017 CUFST . Invalid Interpretation Code [facility] Work Phone: [phone] GE use only - for LinkLogic import when terms are not otherwise specified . Invalid Interpretation Code [facility] Work Phone: [phone] Office Visit: postop surgery 03/23/1705-05-2017 Fall risk assessment No Invalid Interpretation Code [facility] Work Phone: [phone] Protein mass conc Done Invalid Interpretation Code [facility] Work Phone: [phone] Tobacco smoking status NHIS Former Invalid Interpretation Code [facility] Work Phone: [phone] Tobacco smoking status NHIS Former smoker Invalid Interpretation Code [facility] Work Phone: [phone] Office Visit: postop surgery 03/23/1704-13-2017 Dietary management education, guidance, and counseling (procedure) yes Invalid Interpretation Code [facility] Work Phone: [phone] Documentation of current medications (procedure) Done Invalid Interpretation Code [facility] Work Phone: Fall risk assessment No Invalid Interpretation Code [facility] Work Phone: Protein mass conc Done [facility] Work Phone: [phone] Tobacco smoking status NHIS Former Invalid Interpretation Code [facility] Work Phone: [phone] Tobacco smoking status NJIS Former smoker [facility] Work Phone: [phone] Tobacco use [facility] Former smoker Invalid Interpretation Code [facility] Work Phone: [phone] Lab Report: CRPon 04-11-2017 C reactive protein (CRP) 0.465 mg/dL High Units converted. See lab report for original value. [facility] Work Phone: [phone] Lab Report: Comprehensive Me tabolic Profilon 04-11-2017 Alanine aminotransferase (ALT) 39 U/L Invalid Interpretation Code 12-78 [facility] Work Phone: [phone] Albumin 3.9 g/dL Invalid Interpretation Code 3.4-5.0 [facility] Work Phone: [phone] Albumin/Globulin Ratio 1.1 {ratio} Invalid Interpretation Code 0.9-2.4 [facility] Work Phone: [phone] Alkaline phosphatase (ALP) 100 U/L Invalid Interpretation Code 45-117 [facility] Work Phone: [phone] ALP enzyme act/vol (Bld) 100 U/L Invalid Interpretation Code 45-117 [facility] Work Phone: [phone] Anion gap 6 mmol/L Invalid Interpretation Code 5-15 [facility] Work Phone: [phone] Anion gap 4 molar conc 6 Invalid Interpretation Code 5-15 [facility] Work Phone: [phone] Anion gap molar conc 6 mmol/L 5-[address] [facility] Work Phone: [phone] Aspartate aminotransferase (AST) 20 U/L Invalid Interpretation Code 15-37 [facility] Work Phone: [phone] Bilirubin (total) 0.50 mg/dL Invalid Interpretation Code 0.20-1.00 [facility] Work Phone: [phone] BUN/Creatinine Ratio 14.7 RATIO Invalid Interpretation Code 10-20 [facility] Work Phone: [phone] Calcium 9.1 mg/dL Invalid Interpretation Code 8.5-10.1 [facility] Work Phone: [phone] Chloride 102 mmol/L Invalid Interpretation Code 98-107 [facility] Work Phone: [phone] CO2 30.0 mmol/L Invalid Interpretation Code 21.0-32.0 [facility] Work Phone: [phone] CO2 ppres (BldV) 30.0 mmol/L Invalid Interpretation Code 21.0-32.0 [facility] Work Phone: [phone] Creatinine 1.09 mg/dL Invalid Interpretation Code 0.70-1.30 [facility] Work Phone: [phone] eGFR (non-black) 71 mL/min/{1.73_m2} Invalid Interpretation Code >60 [facility] Work [phone] eGFR (non-black) 86 mL/min/{1.73_m2} Invalid Interpretation Code >60 [facility] Work Phone: [phone] EST GFR - AA 86 mL/min Invalid Interpretation Code >60 [facility] Work Phone: [phone] Globulin 3.7 g/dL High 2.3-3.5 [facility] Work Phone: [phone] Globulin mass conc (S) 3.7 g/dL High 2.3-3.5 [facility] Work Phone: [phone] Glucose 154 mg/dL High 70-110 [facility] Work Phone: [phone] Glucose mass conc 154 mg/dL High 70-110 [facility] Work Phone: [phone] Potassium 4.0 mmol/L Invalid Interpretation Code 3.5-5.1 [facility] Work Phone: [phone] Protein 7.6 g/dL Invalid Interpretation Code 6.4-8.2 [facility] Work Phone: [phone] Sodium 138 mmol/L Invalid Interpretation Code 136-145 [facility] Work Phone: [phone] Urea nitrogen 16 mg/dL Invalid Interpretation Code 7-18 [facility] Work Phone: [phone] Lab Report: Erythrocyte Sed Rateon 04-11-2017 Erythrocyte sedimentation rate 9 mm/h Invalid Interpretation Code 0-20 [facility] Work Phone: [phone] Lab Report: Vancomycin, Nestor nelson Levelon 04-11-2017 Vancomycin 11.9 ug/mL Invalid Interpretation Code 5.0-15.0 [facility] Work Phone: [phone] Replaced Document: (P) CBC-C omplete Blood Cnt No Diffon 04-11-2017 Erythrocyte distribution width Auto Ratio (RBC) 40.9 fL Invalid Interpretation Code 35.1-43.9 [facility] Work Phone: [phone] Erythrocyte distribution width Ratio (RBC) 40.9 fL 35.1-43.9 [facility] Work Phone: [phone] Erythrocyte distribution width Ratio (RBC) 12.6 % 11.6-14.6 [facility] Work Phone: [phone] Erythrocytes (RBC) 4.26 10*6/uL Low 4.6-6.[address] [facility] Work Phone: [phone] Hematocrit (HCT) 38.1 % Low 40-54 [facility] Work Phone: [phone] Hematocrit Volume Fraction (Bld) 38.1 % Low 40-54 [facility] Work Phone: [phone] Hemoglobin (HGB) 13.2 g/dL Invalid Interpretation Code 13.0-16.5 [facility] Work Phone: [phone] MCH 31.0 pg Invalid Interpretation Code 27.0-32.0 [facility] Work Phone: [phone] MCH Entitic mass (RBC) 31.0 pg 27.0-32.0 [facility] Work Phone: [phone] MCHC 34.6 G/GL Invalid Interpretation Code 32-36 [facility] Work Phone: [phone] MCHC mass conc (RBC) 34.6 G/GL 32-[address] [facility] Work Phone: [phone] MCV 89.4 fL Invalid Interpretation Code 80-94 [facility] Work Phone: [phone] MCV Entitic volume (RBC) 89.4 fL 80-94 [facility] Work Phone: [phone] Platelet mean volume Entitic volume (Bld) 10.8 fL 6.2-12.0 [facility] Work Phone: [phone] Platelets 189 10*3/mm3 Invalid Interpretation Code 150-450 [facility] Work Phone: [phone] Platelets #/vol (Bld) 189 10*3/mm3 150-450 [facility] Work Phone: [phone] PMV by Fabienne 10.8 fL Invalid Interpretation Code 6.2-12.0 [facility] Work Phone: [phone] RBC #/vol (Bld) 4.26 10*6/uL Low 4.6-6.2 [facility] Work Phone: [phone] RDW-CA 12.6 % Invalid Interpretation Code 11.6-14.6 [facility] Work Phone: [phone] red blood cell distribution width, size density 40.9 fL Invalid Interpretation Code 35.1-43.9 [facility] Work Phone: [phone] WBC #/vol (Bld) 5.5 10*3/uL 4.4-11.0 [facility] Work Phone: [phone] WBC (Leukocytes) 5.5 10*3/uL Invalid Interpretation Code 4.4-11.0 [facility] Work Phone: [phone] Office Visit: postop surgery 03/23/17on 04-08-2017 Dietary management education, guidance, and counseling (procedure) yes Invalid Interpretation Code [facility] Work Phone: [phone] Documentation of current medications (procedure) Done Invalid Interpretation Code [facility] Work Phone: [phone] Fall risk assessment No Invalid Interpretation Code [facility] Work Phone: [phone] Tobacco smoking status NHIS Former Invalid Interpretation Code [facility] Work Phone: [phone] Tobacco use [facility] Former smoker Invalid Interpretation Code [facility] Work Phone: [phone] Lab Report: Miscellaneous La b Procedureon 04-06-2017 GE use only - for LinkLogic import when terms are not otherwise specified . Invalid Interpretation Code [facility] Work Phone: [phone] MISC LAB TEST . [facility] Work Phone: [phone] Lab Report: CRPon 04-04-2017 C reactive protein (CRP) 0.307 mg/dL High Units converted. See lab report for original value. [facility] Work Phone: [phone] Lab Report: Nestor Alaniz Levelon 04-04-2017 Vancomycin 12.4 ug/mL Invalid Interpretation Code 5.0-15.0 [facility] Work Phone: [phone] Replaced Document: (P) CBC-C omplete Blood Cnt No Diffon 04-04-2017 Erythrocytes (RBC) 4.13 10*6/uL Low 4.6-6.2 [facility] Work Phone: [phone] Hematocrit (HCT) 37.2 % Low 40-54 [facility] Work Phone: [phone] Hemoglobin (HGB) 12.3 g/dL Low 13.0-16.5 [facility] Work Phone: [phone] MCH 29.8 pg Invalid Interpretation Code 27.0-32.0 [facility] Work Phone: [phone] MCHC 33.1 G/GL Invalid Interpretation Code 32-36 [facility] Work Phone: [phone] MCV 90.1 fL Invalid Interpretation Code 80-94 [facility] Work Phone: [phone] Platelets 206 10*3/mm3 Invalid Interpretation Code 150-450 [facility] Work Phone: [phone] PMV by Fabienne 10.3 fL Invalid Interpretation Code 6.2-12.0 [facility] Work Phone: [phone] RDW-CA 12.8 % Invalid Interpretation Code 11.6-14.6 [facility] Work Phone: [phone] red blood cell distribution width, size density 41.6 fL Invalid Interpretation Code 35.1-43.9 [facility] Work Phone: [phone] WBC (Leukocytes) 4.9 10*3/uL Invalid Interpretation Code 4.4-11.0 [facility] Work Phone: [phone] Office Visit: postop surgery 03/23/17on 03-31-2017 Dietary management education, guidance, and counseling (procedure) yes Invalid Interpretation Code [facility] Work Phone: [phone] Documentation of current medications (procedure) Done Invalid Interpretation Code [facility] Work Phone: [phone] Fall risk assessment No Invalid Interpretation Code [facility] Work Phone: [phone] Tobacco smoking status NHIS Former Invalid Interpretation Code [facility] Work Phone: [phone] Tobacco use [facility] Former smoker Invalid Interpretation Code [facility] Work Phone: [phone] Lab Report: CRPon 03-28-2017 C reactive protein (CRP) 0.976 mg/dL High Units converted. See lab report for original value. [facility] Work Phone: [phone] Lab Report: Comprehensive Nm tabolic Profilon 03-28-2017 Alanine aminotransferase (ALT) 24 U/L Invalid Interpretation Code 12-78 [facility] Work Phone: [phone] Albumin 3.9 g/dL Invalid Interpretation Code 3.4-5.0 [facility] Work Phone: [phone] Albumin/Globulin Ratio 1.1 {ratio} Invalid Interpretation Code 0.9-2.4 [facility] Work Phone: [phone] Alkaline phosphatase (ALP) 102 U/L Invalid Interpretation Code 45-117 [facility] Work Phone: [phone] Anion gap 10 mmol/L Invalid Interpretation Code 5-15 [facility] Work Phone: [phone] Aspartate aminotransferase (AST) 20 U/L Invalid Interpretation Code 15-37 [facility] Work Phone: [phone] Bilirubin (total) 0.30 mg/dL Invalid Interpretation Code 0.20-1.00 [facility] Work Phone: [phone] BUN/Creatinine Ratio 12.6 RATIO Invalid Interpretation Code 10-20 [facility] Work Phone: [phone] Calcium 9.2 mg/dL Invalid Interpretation Code 8.5-10.1 [facility] Work Phone: [phone] Chloride 100 mmol/L Invalid Interpretation Code 98-107 [facility] Work Phone: [phone] CO2 30.0 mmol/L Invalid Interpretation Code 21.0-32.0 [facility] Work Phone: [phone] Creatinine 1.19 mg/dL Invalid Interpretation Code 0.70-1.30 [facility] Work Phone: [phone] eGFR (non-black) 78 mL/min/{1.73_m2} Invalid Interpretation Code >60 [facility] Work Phone: [phone] eGFR (non-black) 65 mL/min/{1.73_m2} Invalid Interpretation Code >60 [facility] Work Phone: [phone] Globulin 3.5 g/dL Invalid Interpretation Code 2.3-3.5 [facility] Work Phone: [phone] Glucose 142 mg/dL High 70-110 [facility] Work Phone: [phone] Potassium 3.5 mmol/L Invalid Interpretation Code 3.5-5.1 [facility] Work Phone: [phone] Protein 7.4 g/dL Invalid Interpretation Code 6.4-8.2 [facility] Work Phone: [phone] Sodium 140 mmol/L Invalid Interpretation Code 136-145 [facility] Work Phone: [phone] Urea nitrogen 15 mg/dL Invalid Interpretation Code 7-18 [facility] Work Phone: [phone] Lab Report: Erythrocyte Sed Rateon 03-28-2017 Erythrocyte sedimentation rate 10 mm/h Invalid Interpretation Code 0-20 [facility] Work Phone: [phone] Microbiology: Culture, Deep Woundon 03-26-2017 CUDW Vancomycin $ 2 S [facility] Work Phone: [phone] GE use only - for LinkLogic import when terms are not otherwise specified Vancomycin $ 2 S Invalid Interpretation Code [facility] Work Phone: [phone] Lab Report: Basic Metabolic Profile (BMP)on 03-25-2017 Anion gap 6 mmol/L Invalid Interpretation Code 5-15 [facility] Work Phone: [phone] Anion gap molar conc 6 mmol/L 5-[address] [facility] Work Phone: [phone] BUN/Creatinine Ratio 14.7 RATIO 10-[address] [facility] Work Phone: [phone] Calcium 8.6 mg/dL 8.5-10.1 [facility] Work Phone: [phone] Chloride 102 mmol/L 98-107 [facility] Work Phone: [phone] CO2 29.0 mmol/L Invalid Interpretation Code 21.0-32.0 [facility] Work Phone: [phone] CO2 ppres (BldV) 29.0 mmol/L 21.0-32.0 [facility] Work Phone: [phone] Creatinine 72.00 mL/min Invalid Interpretation Code [facility] Work [phone] Creatinine 0.95 mg/dL 0.70-1.30 [facility] Work [phone] eGFR (non-black) 101 mL/min/{1.73_m2} Invalid Interpretation Code >60 [facility] Work [phone] eGFR (non-black) 83 mL/min/{1.73_m2} >60 [facility] Work Phone: [phone] 350 EST GFR - AA 101 mL/min >60 [facility] Work Phone: [phone] Glucose 136 mg/dL High 70-110 [facility] Work Phone: [phone] Glucose mass conc 136 mg/dL High 70-110 [facility] Work Phone: [phone] Potassium 4.2 mmol/L 3.5-5.1 [facility] Work Phone: [phone] Sodium 137 mmol/L 136-145 [facility] Work Phone: [phone] Urea nitrogen 14 mg/dL 7-18 [facility] Work Phone: [phone] Lab Report: Bedside Glucoseo n 03-25-2017 Glucose 225 mg/dL High 70-110 [facility] Work Phone: [phone] Glucose mass conc 225 mg/dL High 70-110 [facility] Work Phone: [phone] Lab Report: CRPon 03-25-2017 C reactive protein (CRP) 0.842 mg/dL High Units converted. See lab report for original value. [facility] Work Phone: [phone] Lab Report: Erythrocyte Sed Rateon 03-25-2017 Erythrocyte sedimentation rate 30 mm/h High 0-20 [facility] Work Phone: [phone] Lab Report: Hemoglobin A1con 03-25-2017 HbA1c 7.4 % High 4.2-6.3 [facility] Work Phone: [phone] Lab Report: Vancomycin, Trou gh Levelon 03-25-2017 Vancomycin 12.4 ug/mL 5.0-15.0 [facility] Work Phone: [phone] Microbiology: (P) Culture, D eep Woundon 03-25-2017 GE use only - for [employer] import when terms are not otherwise specified . Invalid Interpretation Code [facility] Work Phone: [phone] Replaced Document: (P) CBC-C omplete Blood Cnt No Diffon 03-25-2017 Erythrocyte distribution width Ratio (RBC) 12.0 % 11.6-14.6 [facility] Work Phone: [phone] Erythrocyte distribution width Ratio (RBC) 38.7 fL 35.1-43.9 [facility] Work Phone: [phone] Erythrocytes (RBC) 3.85 10*6/uL Low 4.6-6.[address] [facility] Work Phone: [phone] Hematocrit (HCT) 34.4 % Low 40-54 [facility] Work Phone: [phone] Hematocrit Volume Fraction (Bld) 34.4 % Low 40-54 [facility] Work Phone: [phone] Hemoglobin (HGB) 11.8 g/dL Low 13.0-16.5 [facility] Work Phone: [phone] MCH 30.6 pg Invalid Interpretation Code 27.0-32.0 [facility] Work Phone: [phone] MCH Entitic mass (RBC) 30.6 pg 27.0-32.0 [facility] Work Phone: [phone] MCHC 34.3 G/GL Invalid Interpretation Code 32-36 [facility] Work Phone: [phone] MCHC mass conc (RBC) 34.3 G/GL 32-[address] [facility] Work Phone: [phone] MCV 89.4 fL Invalid Interpretation Code 80-94 [facility] Work Phone: [phone] MCV Entitic volume (RBC) 89.4 fL 80-94 [facility] Work Phone: [phone] Platelet mean volume Entitic volume (Bld) 9.3 fL 6.2-12.0 [facility] Work Phone: [phone] Platelets 164 10*3/mm3 Invalid Interpretation Code 150-450 [facility] Work Phone: [phone] Platelets #/vol (Bld) 164 10*3/mm3 150-450 [facility] Work Phone: [phone] PMV by Fabienne 9.3 fL Invalid Interpretation Code 6.2-12.0 [facility] Work Phone: [phone] RBC #/vol (Bld) 3.85 10*6/uL Low 4.6-6.2 [facility] Work Phone: [phone] RDW-CA 12.0 % Invalid Interpretation Code 11.6-14.6 [facility] Work Phone: [phone] red blood cell distribution width, size density 38.7 fL Invalid Interpretation Code 35.1-43.9 [facility] Work Phone: [phone] WBC #/vol (Bld) 5.4 10*3/uL 4.4-11.0 [facility] Work Phone: [phone] WBC (Leukocytes) 5.4 10*3/uL Invalid Interpretation Code 4.4-11.0 [facility] Work Phone: [phone] Lab Report: Basic Metabolic Profile (BMP)on 03-24-2017 Anion gap 5 mmol/L Invalid Interpretation Code 5-15 [facility] Work Phone: [phone] BUN/Creatinine Ratio 13.5 RATIO Invalid Interpretation Code 10-20 [facility] Work Phone: [phone] Calcium 8.2 mg/dL Low 8.5-10.1 [facility] Work Phone: [phone] Chloride 101 mmol/L Invalid Interpretation Code 98-107 [facility] Work Phone: [phone] CO2 31.0 mmol/L Invalid Interpretation Code 21.0-32.0 [facility] Work Phone: [phone] Creatinine 0.96 mg/dL Invalid Interpretation Code 0.70-1.30 [facility] Work Phone: [phone] Creatinine 71.25 mL/min Invalid Interpretation Code [facility] Work Phone: [phone] eGFR (non-black) 82 mL/min/{1.73_m2} Invalid Interpretation Code >60 [facility] Work Phone: [phone] eGFR (non-black) 100 mL/min/{1.73_m2} Invalid Interpretation Code >60 [facility] Work Phone: [phone] Glucose 98 mg/dL Invalid Interpretation Code 70-110 [facility] Work Phone: [phone] Potassium 4.3 mmol/L Invalid Interpretation Code 3.5-5.1 [facility] Work Phone: [phone] Sodium 137 mmol/L Invalid Interpretation Code 136-145 [facility] Work Phone: [phone] Urea nitrogen 13 mg/dL Invalid Interpretation Code 7-18 [facility] Work Phone: [phone] Lab Report: Bedside Glucoseo n 03-24-2017 Glucose 158 mg/dL High 70-110 [facility] Work Phone: [phone] Lab Report: CBC-Complete Blo od Cnt No Diffon 03-24-2017 Erythrocytes (RBC) 3.95 10*6/uL Low 4.6-6.[address] [facility] Work Phone: [phone] Hematocrit (HCT) 35.7 % Low 40-54 [facility] Work Phone: [phone] Hemoglobin (HGB) 12.1 g/dL Low 13.0-16.5 [facility] Work Phone: [phone] MCH 30.6 pg Invalid Interpretation Code 27.0-32.0 [facility] Work Phone: [phone] MCHC 33.9 G/GL Invalid Interpretation Code 32-36 [facility] Work Phone: [phone] MCV 90.4 fL Invalid Interpretation Code 80-94 [facility] Work Phone: [phone] Platelets 184 10*3/mm3 Invalid Interpretation Code 150-450 [facility] Work Phone: [phone] PMV by Fabienne 9.5 fL Invalid Interpretation Code 6.2-12.0 [facility] Work Phone: [phone] RDW-CA 12.3 % Invalid Interpretation Code 11.6-14.6 [facility] Work Phone: [phone] red blood cell distribution width, size density 40.5 fL Invalid Interpretation Code 35.1-43.9 [facility] Work Phone: [phone] WBC (Leukocytes) 7.1 10*3/uL Invalid Interpretation Code 4.4-11.0 [facility] Work Phone: [phone] Microbiology: (P) Culture, D eep Woundon 03-24-2017 GE use only - for [employer] import when terms are not otherwise specified . Invalid Interpretation Code [facility] Work Phone: [phone] Lab Report: Basic Metabolic Profile (BMP)on 03-23-2017 Anion gap 4 mmol/L Low 5-15 [facility] Work Phone: [phone] BUN/Creatinine Ratio 21.0 RATIO High 10-20 [facility] Work [facility]: [phone] Calcium 8.1 mg/dL Low 8.5-10.1 [facility] Work Phone: [phone] Chloride 105 mmol/L Invalid Interpretation Code 98-107 [facility] Work Phone: [phone] CO2 28.0 mmol/L Invalid Interpretation Code 21.0-32.0 [facility] Work Phone: [phone] Creatinine 65.14 mL/min Invalid Interpretation Code [facility] Work Phone: [phone] Creatinine 1.05 mg/dL Invalid Interpretation Code 0.70-1.30 [facility] Work Phone: [phone] eGFR (non-black) 75 mL/min/{1.73_m2} Invalid Interpretation Code >60 [facility] Work Phone: [phone] eGFR (non-black) 90 mL/min/{1.73_m2} Invalid Interpretation Code >60 [facility] Work Phone: [phone] Glucose 190 mg/dL High 70-110 [facility] Work Phone: [phone] Potassium 4.2 mmol/L Invalid Interpretation Code 3.5-5.1 [facility] Work Phone: [phone] Sodium 137 mmol/L Invalid Interpretation Code 136-145 [facility] Work Phone: [phone] Urea nitrogen 22 mg/dL High 7-18 [facility] Work Phone: [phone] Lab Report: Bedside Glucoseo n 03-23-2017 Glucose 203 mg/dL High 70-110 [facility] Work Phone: [phone] Lab Report: Hemoglobin A1con 03-23-2017 HbA1c 7.3 % High 4.2-6.3 [facility] Work Phone: [phone] Lab Report: MRSA Wound DNA b y PCRon 03-23-2017 INR in blood by coagulation Positive High Negative [facility] Work Phone: [phone] Clinical Lists Update: Prelo houseman 03-22-2017 Tobacco smoking status NHIS Former smoker [facility] Work Phone: [phone] Tobacco use CPHS Former smoker Invalid Interpretation Code [facility] Work Phone: [phone] Lab Report: CBC-Complete Blo od Cnt No Diffon 03-22-2017 Erythrocytes (RBC) 4.12 10*6/uL Low 4.6-6.[address] [facility] Work Phone: [phone] Hematocrit (HCT) 36.9 % Low 40-54 [facility] Work Phone: [phone] Hemoglobin (HGB) 12.8 g/dL Low 13.0-16.5 [facility] Work Phone: [phone] MCH 31.1 pg Invalid Interpretation Code 27.0-32.0 [facility] Work Phone: [phone] MCHC 34.7 G/GL Invalid Interpretation Code 32-36 [facility] Work Phone: [phone] MCV 89.6 fL Invalid Interpretation Code 80-94 [facility] Work Phone: [phone] Platelets 208 10*3/mm3 Invalid Interpretation Code 150-450 [facility] Work Phone: [phone] PMV by Fabienne 9.7 fL Invalid Interpretation Code 6.2-12.0 [facility] Work Phone: [phone] RDW-CA 12.2 % Invalid Interpretation Code 11.6-14.6 [facility] Work Phone: [phone] red blood cell distribution width, size density 39.3 fL Invalid Interpretation Code 35.1-43.9 [facility] Work Phone: [phone] WBC (Leukocytes) 6.6 10*3/uL Invalid Interpretation Code 4.4-11.0 [facility] Work Phone: [phone] Lab Report: Prealbuminon Prealbumin 23.3 mg/dL Invalid Interpretation Code 20.0-40.0 [facility] Work Phone: [phone] Prealbumin Elph mass conc 23.3 mg/dL Invalid Interpretation Code 20.0-40.0 [facility] Work Phone: [phone] Office Visiton 01-29-2015 Dietary management education, guidance, and counseling (procedure) yes Invalid Interpretation Code [facility] Work Phone: [phone] Documentation of current medications (procedure) Done Invalid Interpretation Code [facility] Work Phone: [phone] Protein mass conc Done [facility] Work Phone: [phone] Tobacco use CPHS Never smoker Invalid Interpretation Code [facility] Work Phone: [phone] Lab Report: Basic Metabolic Profile (BMP)on 08-02-2014 Anion gap 8 mmol/L Invalid Interpretation Code 5-15 [facility] Work Phone: [phone] Anion gap molar conc 8 mmol/L 5-[address] [facility] Work Phone: [phone] BUN/Creatinine Ratio 13.0 RATIO Invalid Interpretation Code 10-20 [facility] Work Phone: [phone] Calcium 8.0 mg/dL Critically low 8.5-10.1 [facility] Work Phone: [phone] Chloride 97 mmol/L Critically low 98-107 [facility] Work Phone: [phone] CO2 27.0 mmol/L Invalid Interpretation Code 21.0-32.0 [facility] Work Phone: [phone] CO2 ppres (BldV) 27.0 mmol/L 21.0-32.0 [facility] Work Phone: [phone] Creatinine 1.0 mg/dL Invalid Interpretation Code 0.8-1.3 [facility] Work Phone: [phone] eGFR (non-black) 97 mL/min/{1.73_m2} Invalid Interpretation Code >60 [facility] Work [phone] eGFR (non-black) 80 mL/min/{1.73_m2} Invalid Interpretation Code >60 [facility] Work Phone: [phone] EST GFR - AA 97 mL/min >60 [facility] Work Phone: [phone] Glucose 224 mg/dL Critically high 70-110 [facility] Work Phone: [phone] Glucose mass conc 224 mg/dL Critically high 70-110 [facility] Work Phone: [phone] Potassium 3.9 mmol/L Invalid Interpretation Code 3.5-5.1 [facility] Work Phone: [phone] Sodium 132 mmol/L Critically low 136-145 [facility] Work Phone: [phone] Urea nitrogen 13 mg/dL Invalid Interpretation Code 7-18 [facility] Work Phone: [phone] Lab Report: Bedside Glucoseo n 08-02-2014 BEDSIDE GLU 126 mg/dL Critically high 70-110 [facility] Work Phone: [phone] GE use only - for [employer] import when terms are not otherwise specified 126 mg/dL Critically high 70-110 [facility] Work Phone: [phone] Lab Report: CBC-Complete Blo od Cnt No Diffon 08-02-2014 Erythrocytes (RBC) 3.73 10*6/uL Critically low 4.6-6.2 [facility] Work Phone: [phone] Hematocrit (HCT) 32.9 % Critically low 40-[address] [facility] Work Phone: [phone] Hematocrit Volume Fraction (Bld) 32.9 % Critically low 40-54 [facility] Work Phone: [phone] Hemoglobin (HGB) 11.3 g/dL Critically low 13.0-16.[address] [facility] Work Phone: [phone] MCH 30.3 pg Invalid Interpretation Code 27.0-32.0 [facility] Work Phone: [phone] MCH Entitic mass (RBC) 30.3 pg 27.0-32.0 [facility] Work Phone: [phone] MCHC 34.3 G/GL Invalid Interpretation Code 32-36 [facility] Work Phone: [phone] MCHC mass conc (RBC) 34.3 G/GL 32-[address] [facility] Work Phone: [phone] MCV 88.2 fL Invalid Interpretation Code 80-94 [facility] Work Phone: [phone] MCV Entitic volume (RBC) 88.2 fL 80-94 [facility] Work Phone: [phone] Platelet mean volume Entitic volume (Bld) 9.7 fL 6.2-12.0 [facility] Work Phone: [phone] Platelets 175 10*3/mm3 Invalid Interpretation Code 150-450 [facility] Work Phone: [phone] Platelets #/vol (Bld) 175 10*3/mm3 150-450 [facility] Work Phone: [phone] PMV by Fabienne 9.7 fL Invalid Interpretation Code 6.2-12.0 [facility] Work Phone: [phone] RBC #/vol (Bld) 3.73 10*6/uL Critically low 4.6-6.[address] [facility] Work Phone: [phone] WBC #/vol (Bld) 8.8 10*3/uL 4.4-11.0 [facility] Work Phone: WBC (Leukocytes) 8.8 10*3/uL Invalid Interpretation Code 4.4-11.0 [facility] Work Phone: Lab Report: CBCDon 4 Absolute Neutrophil count 3.7 X10 3/UL Normal 2.0-7.7 [facility] Work Phone: ANC 3.7 X10 3/UL Normal 2.0-7.7 [facility] Work Phone: Basophils/100 leukocytes 0.5 % Normal 0-1 [facility] Work Phone: Basophils/100 WBC (Bld) 0.5 % Normal 0-1 [facility] Work Phone: Eosinophils/100 leukocytes 2.0 % Normal 0-5 [facility] Work Phone: Eosinophils/100 WBC (Bld) 2.0 % Normal 0-5 [facility] Work Phone: Lymphocytes/100 leukocytes 27.9 % Normal 19-41 [facility] Work Phone: Lymphocytes/100 WBC (Bld) 27.9 % Normal 19-41 [facility] Work Phone: Monocytes/100 leukocytes 11.6 % High 0-10 [facility] Work Phone: Monocytes/100 WBC (Bld) 11.6 % High 0-10 [facility] Work Phone: Neutrophils/100 leukocytes 57.2 % Normal 47-70 [facility] Work Phone: Neutrophils/100 WBC (Bld) 57.2 % Normal 47-70 [facility] Work Phone: Vital Signs Date Time Vital Sign Value Performing Clinician Facility 04-15-2025 19:41-0400 Diastolic blood pressure 63 mm[Hg] Dr. Mike Solorzano MD Work Phone: [facility] 04-15-2025 19:41-0400 Systolic blood pressure 97 mm[Hg] Dr. Mike Solorzano MD Work Phone: [facility] 04-15-2025 19:20-0400 Body temperature 101.5 [degF] Dr. Mike Solorzano MD Work Phone: [facility] 04-15-2025 19:20-0400 Heart rate 100 /min Dr. Mike Solorzano MD Work Phone: [facility] 04-15-2025 19:20-0400 Respiratory rate 18 /min Dr. Mike Solorzano MD Work Phone: [facility] 04-15-2025 19:20-0400 SaO2% (BldA) [Mass fraction] 95 % Dr. Mike Solorzano MD Work Phone: [facility] 04-15-2025 14:09-0400 Body height 167.[address] Mike Solorzano MD Work Phone: [facility] 04-15-2025 14:09-0400 Body mass index (BMI) [Ratio] 33.9 kg/m2 Dr. Mike Solorzano MD Work Phone: [facility] 04-15-2025 14:09-0400 Body weight 95.[address] Mike Solorzano MD Work Phone: [facility] 04-01-2025 10:39-0400 Body mass index (BMI) [Ratio] 30.04 kg/m2 Lisa Quintanilla MD Work Phone: [facility] 04-01-2025 10:39-0400 Body temperature 96.3 [degF] Lisa Quintanilla MD Work Phone: [facility] 04-01-2025 10:39-0400 Body weight 89.6 kg Lisa Quintanilla MD Work Phone: [facility] 04-01-2025 10:39-0400 Diastolic blood pressure 66 mm[Hg] Lisa Quintanilla MD Work Phone: [facility] 04-01-2025 10:39-0400 Heart rate 100 /min Lisa Quintanilla MD Work Phone: [facility] 04-01-2025 10:39-0400 Respiratory rate 20 /min Lisa Quintanilla MD Work Phone: [facility] 04-01-2025 10:39-0400 SaO2% (BldA) [Mass fraction] 96 % Lisa Quintanilla MD Work Phone: [facility] 04-01-2025 10:39-0400 Systolic blood pressure 120 mm[Hg] Lisa Quintanilla MD Work Phone: [facility] 02-11-2025 14:44-0400 Body height 172.7 cm Aaron Solorzano MD Work Phone: [facility] 02-11-2025 14:44-0400 Body mass index (BMI) [Ratio] 29.84 kg/m2 Aaron Solorzano MD Work Phone: [facility] 02-11-2025 14:44-0400 Body weight 89 kg Aaron Solorzano MD Work Phone: [facility] 02-11-2025 14:44-0400 Diastolic blood pressure 62 mm[Hg] Aaron Solorzano MD Work Phone: [facility] 02-11-2025 14:44-0400 Heart rate 79 /min Aaron Solorzano MD Work Phone: [facility] 02-11-2025 14:44-0400 SaO2% (BldA) [Mass fraction] 95 % Aaron Solorzano MD Work Phone: [facility] 02-11-2025 14:44-0400 Systolic blood pressure 125 mm[Hg] Aaron Solorzano MD Work Phone: [facility] 12-05-2024 10:12-0400 Body mass index (BMI) [Ratio] 31.11 kg/m2 Lisa Quintanilla MD Work Phone: [facility] 12-05-2024 10:12-0400 Body temperature 97.9 [degF] Lisa Quintanilla MD Work Phone: [facility] 12-05-2024 10:12-0400 Body weight 92.8 kg Lisa Quintanilla MD Work Phone: [facility] 12-05-2024 10:12-0400 Diastolic blood pressure 70 mm[Hg] Lisa Quintanilla MD Work Phone: [facility] 12-05-2024 10:12-0400 Heart rate 73 /min Lisa Quintanilla MD Work Phone: [facility] 12-05-2024 10:12-0400 Respiratory rate 16 /min Lisa Quintanilla MD Work Phone: [facility] 12-05-2024 10:12-0400 SaO2% (BldA) [Mass fraction] 97 % Lisa Quintanilla MD Work Phone: [facility] 12-05-2024 10:12-0400 Systolic blood pressure 128 mm[Hg] Lisa Quintanilla MD Work Phone: [facility] 11-28-2024 13:34-0400 Body mass index (BMI) [Ratio] 30.7 kg/m2 Dr. Mike Solorzano MD Work Phone: [facility] 11-28-2024 13:34-0400 Body weight 91.[address] Mike Solorzano MD Work Phone: [facility] 11-28-2024 13:34-0400 Diastolic blood pressure 74 mm[Hg] Dr. Mike Solorzano MD Work Phone: [facility] 11-28-2024 13:34-0400 Heart rate 73 /min Dr. Mike Solorzano MD Work Phone: [facility] 11-28-2024 13:34-0400 Respiratory rate 16 /min Dr. Mike Solorzano MD Work Phone: [facility] 11-28-2024 13:34-0400 Systolic blood pressure 128 mm[Hg] Dr. Mike Solorzano MD Work Phone: [facility] 11-08-2024 10:44-0400 Body height 172.7 cm Aaron Solorzano MD Work Phone: [facility] 11-08-2024 10:44-0400 Body mass index (BMI) [Ratio] 30.18 kg/m2 Aaron Solorzano MD Work Phone: [facility] 11-08-2024 10:44-0400 Body weight 90 kg Aaron Solorzano MD Work Phone: [facility] 11-08-2024 10:44-0400 Diastolic blood pressure 75 mm[Hg] Aaron Solorzano MD Work Phone: [facility] 11-08-2024 10:44-0400 Heart rate 75 /min Aaron Solorzano MD Work Phone: [facility] 11-08-2024 10:44-0400 SaO2% (BldA) [Mass fraction] 98 % Aaron Solorzano MD Work Phone: [facility] 11-08-2024 10:44-0400 Systolic blood pressure 138 mm[Hg] Aaron Solorzano MD Work Phone: [facility] 08-13-2024 14:21-0500 Diastolic blood pressure 56 mm[Hg] Daxa Mecca CONSOLE ATTENDANT.CLIENT SERVICES MANAGER Work Phone: [facility] Comment on above: manual 08-13-2024 14:21-0500 Systolic blood pressure 130 mm[Hg] Daxa Mecca CONSOLE ATTENDANT.CLIENT SERVICES MANAGER Work Phone: [facility] Comment on above: manual 08-13-2024 13:55-0500 Body mass index (BMI) [Ratio] 29.84 kg/m2 Daxa Mecca CONSOLE ATTENDANT.CLIENT SERVICES MANAGER Work Phone: [facility] 08-13-2024 13:55-0500 Body weight 89 kg Daxa Mecca CONSOLE ATTENDANT.CLIENT SERVICES MANAGER Work Phone: [facility] 08-13-2024 13:55-0500 Heart rate 76 /min Daxa Mecca CONSOLE ATTENDANT.CLIENT SERVICES MANAGER Work Phone: [facility] 05-19-2024 10:27-0400 Body mass index (BMI) [Ratio] 29.84 kg/m2 Lisa Quintanilla MD Work Phone: [facility] 05-19-2024 10:27-0400 Body temperature 98.2 [degF] Lisa Quintanilla MD Work Phone: [facility] 05-19-2024 10:27-0400 Body weight 89 kg Lisa Quintanilla MD Work Phone: [facility] 05-19-2024 10:27-0400 Diastolic blood pressure 76 mm[Hg] Lisa Quintanilla MD Work Phone: [facility] 05-19-2024 10:27-0400 Heart rate 62 /min Lisa Quintanilla MD Work Phone: [facility] 05-19-2024 10:27-0400 Respiratory rate 16 /min Lisa Quintanilla MD Work Phone: [facility] 05-19-2024 10:27-0400 SaO2% (BldA) [Mass fraction] 98 % Lisa Quintanilla MD Work Phone: [facility] 05-19-2024 10:27-0400 Systolic blood pressure 134 mm[Hg] Lisa Quintanilla MD Work Phone: [facility] 12-20-2023 09:48-0400 Body height 172.7 cm Aaron Solorzano MD Work Phone: [facility] 12-20-2023 09:48-0400 Body mass index (BMI) [Ratio] 29.51 kg/m2 Aaron Solorzano MD Work Phone: [facility] 12-20-2023 09:48-0400 Body weight 88 kg Aaron Solorzano MD Work Phone: [facility] 12-20-2023 09:48-0400 Diastolic blood pressure 70 mm[Hg] Aaron Solorzano MD Work Phone: [facility] 12-20-2023 09:48-0400 Heart rate 69 /min Aaron Solorzano MD Work Phone: [facility] 12-20-2023 09:48-0400 SaO2% (BldA) [Mass fraction] 99 % Aaron Solorzano MD Work Phone: [facility] 12-20-2023 09:48-0400 Systolic blood pressure 136 mm[Hg] Aaron Solorzano MD Work Phone: [facility] 10-17-2023 16:03-0500 Body height 172.7 cm Aaron Solorzano MD Work Phone: [facility] 10-17-2023 16:03-0500 Body weight 89 kg Aaron Solorzano MD Work Phone: [facility] 10-17-2023 16:03-0500 Diastolic blood pressure 66 mm[Hg] Aaron Solorzano MD Work Phone: [facility] 10-17-2023 16:03-0500 Heart rate 70 /min Aaron Solorzano MD Work Phone: [facility] 10-17-2023 16:03-0500 SaO2% (BldA) [Mass fraction] 95 % Aaron Solorzano MD Work Phone: [facility] 10-17-2023 16:03-0500 Systolic blood pressure 138 mm[Hg] Aaron Solorzano MD Work Phone: [facility] 06-16-2023 15:31-0400 Body height 172.7 cm Aaron Solorzano MD Work Phone: [facility] 06-16-2023 15:31-0400 Body weight 90.27 kg Aaron Solorzano MD Work Phone: [facility] 06-16-2023 15:31-0400 Diastolic blood pressure 68 mm[Hg] Aaron Solorzano MD Work Phone: [facility] 06-16-2023 15:31-0400 Heart rate 85 /min Aaron Solorzano MD Work Phone: [facility] 06-16-2023 15:31-0400 SaO2% (BldA) [Mass fraction] 96 % Aaron Solorzano MD Work Phone: [facility] 06-16-2023 15:31-0400 Systolic blood pressure 109 mm[Hg] Aaron Solorzano MD Work Phone: [facility] 02-17-2023 09:41-0400 Body height 172.7 cm Daxa Villa CONSOLE ATTENDANT.CLIENT SERVICES MANAGER Work Phone: [facility] 02-17-2023 09:41-0400 Body weight 89.81 kg Daxa Villa CONSOLE ATTENDANT.CLIENT SERVICES MANAGER Work Phone: [facility] 02-17-2023 09:41-0400 Diastolic blood pressure 59 mm[Hg] Daxa Villa CONSOLE ATTENDANT.CLIENT SERVICES MANAGER Work Phone: [facility] 02-17-2023 09:41-0400 Heart rate 73 /min Daxa Villa CONSOLE ATTENDANT.CLIENT SERVICES MANAGER Work Phone: [facility] 02-17-2023 09:41-0400 Systolic blood pressure 128 mm[Hg] Daxa Villa CONSOLE ATTENDANT.CLIENT SERVICES MANAGER Work Phone: [facility] 02-05-2023 16:21-0400 Body temperature 98.1 [degF] [facility] 02-05-2023 16:21-0400 Diastolic blood pressure 79 mm[Hg] [facility] 02-05-2023 16:21-0400 Heart rate 81 /min [facility] 02-05-2023 16:21-0400 Respiratory rate 16 /min [facility] 02-05-2023 16:21-0400 SaO2% (BldA) [Mass fraction] 98 % [facility] 02-05-2023 16:21-0400 Systolic blood pressure 118 mm[Hg] [facility] 02-05-2023 14:47-0400 Body mass index (BMI) [Ratio] 31.8 kg/m2 [facility] 02-05-2023 14:47-0400 Body weight 95 kg [facility] 02-05-2023 14:06-0400 Body height 172.72 cm [facility] 08-25-2022 10:21-0500 Body height 172.7 cm Daxa Villa CONSOLE ATTENDANT.CLIENT SERVICES MANAGER Work Phone: [facility] 08-25-2022 10:21-0500 Body weight 98.43 kg Daxa Villa CONSOLE ATTENDANT.CLIENT SERVICES MANAGER Work Phone: [facility] 08-25-2022 10:21-0500 Diastolic blood pressure 73 mm[Hg] Daxa Villa CONSOLE ATTENDANT.CLIENT SERVICES MANAGER Work Phone: [facility] 08-25-2022 10:21-0500 Heart rate 77 /min Daxa Villa CONSOLE ATTENDANT.CLIENT SERVICES MANAGER Work Phone: [facility] 08-25-2022 10:21-0500 Systolic blood pressure 125 mm[Hg] Daxa Villa CONSOLE ATTENDANT.CLIENT SERVICES MANAGER Work Phone: [facility] 03-16-2022 11:00-0400 Diastolic blood pressure 60 mm[Hg] Dr. Mike Solorzano Work Phone: [facility] Work Phone: 03-16-2022 11:00-0400 Heart rate 69 /min Dr. Mike Solorzano Work Phone: [facility] Work Phone: 03-16-2022 11:00-0400 Respiratory rate 21 /min Dr. Mike Solorzano Work Phone: [facility] Work Phone: 03-16-2022 11:00-0400 SaO2% (BldA) [Mass fraction] 96 % Dr. Mike Solorzano Work Phone: [facility] Work Phone: 03-16-2022 11:00-0400 Systolic blood pressure 136 mm[Hg] Dr. Mike Solorzano Work Phone: [facility] Work Phone: 03-16-2022 09:10-0400 Body height 172.[address] Mike Solorzano Work Phone: [facility] Work Phone: 03-16-2022 09:10-0400 Body mass index (BMI) [Ratio] 33.3 kg/m2 Dr. Mike Solorzano Work Phone: [facility] Work Phone: 03-16-2022 09:10-0400 Body temperature 97.9 [degF] Dr. Mike Solorzano Work Phone: [facility] Work Phone: 03-16-2022 09:10-0400 Body weight 99.[address] Mike Solorzano Work Phone: [facility] Work Phone: 11-23-2021 13:53-0400 Body mass index (BMI) [Ratio] 34.7 kg/m2 Dr. Mike Solorzano Work Phone: [facility] Work Phone: 11-23-2021 13:53-0400 Body weight 100.[address] Mike Solorzano Work Phone: [facility] Work Phone: 11-23-2021 13:53-0400 Diastolic blood pressure 84 mm[Hg] Dr. Mike Solorzano Work Phone: [facility] Work Phone: 11-23-2021 13:53-0400 Heart rate 86 /min Dr. Mike Solorzano Work Phone: [facility] Work Phone: 11-23-2021 13:53-0400 Respiratory rate 18 /min Dr. Mike Solorzano Work Phone: [facility] Work Phone: 11-23-2021 13:53-0400 SaO2% (BldA) [Mass fraction] 98 % Dr. Mike Solorzano Work Phone: [facility] Work Phone: 11-23-2021 13:53-0400 Systolic blood pressure 128 mm[Hg] Dr. Mike Solorzano Work Phone: [facility] Work Phone: 10-23-2021 09:34-0500 Body temperature 98.42 [degF] MIKE RAI DO [facility] 10-23-2021 09:34-0500 Diastolic blood pressure 70 mm[Hg] MIKE RAI DO [facility] 10-23-2021 09:34-0500 Heart rate 97 /min MIKE RAI DO [facility] 10-23-2021 09:34-0500 Respiratory rate 18 /min MIKE RAI DO [facility] 10-23-2021 09:34-0500 Systolic blood pressure 128 mm[Hg] MIKE RAI DO [facility] 10-23-2021 08:25-0500 Heart rate 101 /min MIKE RAI DO [facility] 10-23-2021 05:15-0500 Body temperature 97.88 [degF] MIKE RAI DO [facility] 10-23-2021 05:15-0500 Diastolic blood pressure 63 mm[Hg] MIKE RAI DO [facility] 10-23-2021 05:15-0500 Heart rate 96 /min MIKE RAI DO [facility] 10-23-2021 05:15-0500 Reason For Taking VItal Signs MIKE RAI DO [facility] 10-23-2021 05:15-0500 Respiratory rate 18 /min MIKE RAI DO [facility] 10-23-2021 05:15-0500 Systolic blood pressure 125 mm[Hg] MIKE RAI DO [facility] 10-22-2021 23:02-0500 Body temperature 97.88 [degF] MIKE RAI DO [facility] 10-22-2021 23:02-0500 Diastolic blood pressure 68 mm[Hg] MIKE RAI DO [facility] 10-22-2021 23:02-0500 Heart rate 89 /min MIKE RAI DO [facility] 10-22-2021 23:02-0500 Mean blood pressure 82 mm[Hg] MIKE RAI DO [facility] 10-22-2021 23:02-0500 Reason For Taking VItal Signs MIKE RAI DO [facility] 10-22-2021 23:02-0500 Respiratory rate 18 /min MIKE RAI DO [facility] 10-22-2021 23:02-0500 Systolic blood pressure 111 mm[Hg] MIKE RAI DO [facility] 10-22-2021 20:02-0500 Heart rate 98 /min MIKE RAI DO [facility] 10-22-2021 20:02-0500 Reason For Taking VItal Signs MIKE RAI DO [facility] 10-22-2021 11:07-0500 Body height 172.7 cm MIKE RAI DO [facility] 10-22-2021 11:07-0500 Body weight 103 kg MIKE RAI DO [facility] 10-22-2021 11:07-0500 Body weight 34.53 kg/m2 MIKE RAI DO [facility] 10-22-2021 11:05-0500 Mean blood pressure 90 mm[Hg] MIKE RAI DO [facility] 10-22-2021 10:42-0500 Diastolic Blood Pressure NBP 69 1 MIKE RAI DO [facility] 10-22-2021 10:42-0500 Systolic Blood Pressure NBP 112 1 MIKE RAI DO [facility] 10-22-2021 10:33-0500 Diastolic Blood Pressure NBP 69 1 MIKE RAI DO [facility] 10-22-2021 10:33-0500 Systolic Blood Pressure NBP 108 1 MIKE RAI DO [facility] 10-22-2021 10:21-0500 Diastolic Blood Pressure NBP 54 1 MIKE RAI DO [facility] 10-22-2021 10:21-0500 Systolic Blood Pressure NBP 119 1 MIKE RAI DO [facility] 10-22-2021 09:30-0500 Body temperature 96.98 [degF] MIKE RAI DO [facility] 10-22-2021 09:00-0500 Body temperature 97.25 [degF] MIKE RAI DO [facility] 10-22-2021 08:55-0500 Body temperature 97.23 [degF] MIKE RAI DO [facility] 10-22-2021 08:50-0500 Body temperature 97.18 [degF] MIKE ARI DO [facility] 10-22-2021 06:16-0500 Body height 172.7 cm MIKE RAI DO [facility] 10-22-2021 06:16-0500 Body weight 103 kg MIKE RAI DO [facility] 10-15-2021 10:40-0500 Body height 172.7 cm MIKE RAI DO [facility] 10-15-2021 10:40-0500 Body weight 102.3 kg MIKE RAI DO [facility] 10-15-2021 10:40-0500 Body weight 34.3 kg/m2 MIKE RAI DO [facility] 10-15-2021 10:40-0500 diastolic 56 mm[Hg] MIKE RAI DO [facility] 10-15-2021 10:40-0500 Heart rate 82 /min MIKE RAI DO [facility] 10-15-2021 10:40-0500 systolic 120 mm[Hg] MIKE RAI DO [facility] 06-02-2020 13:05-0400 BP Diastolic 82 mm[Hg] Jean Claude Killian [facility] , [place] 06-02-2020 13:05-0400 BP Systolic 120 mm[Hg] Jean Claude Killian [facility] , [place] 06-02-2020 13:05-0400 Pulse (Heart Rate) 83 /min Jean Claude Killian [facility] [place] [place] 06-02-2020 13:05-0400 Pulse Oximetry 98 % Jean Claude Killian [facility] [place] [facility] [place] 06-02-2020 12:00-0400 Body Temperature 98.4 [degF] Jean Claude [place]ian [facility] 06-02-2020 12:00-0400 Respiratory Rate 18 /min Jean Claude Killian [facility] 06-02-2020 06:00-0400 BMI (Body Mass Index) 33.12 kg/m2 Jean Claude Killian [facility] [place] 06-02-2020 06:00-0400 Body weight 98.8 kg Jean Claude Killian [facility] [place] [facility] [place] 05-30-2020 08:43-0400 Height 172.7 cm Jean Claude Killian [facility] [place] [facility] [place] 05-14-2020 08:07-0400 Body Temperature 98.1 [degF] Jean Claude Killian [facility] 05-14-2020 08:07-0400 BP Diastolic 62 mm[Hg] Jean Claude Killian [facility] [place] [facility] [place] 05-14-2020 08:07-0400 BP Systolic 131 mm[Hg] Jean Claude Killian [facility] [place] 05-14-2020 08:07-0400 Pulse (Heart Rate) 99 /min Jean Claude Killian [facility] [place] 05-14-2020 08:07-0400 Pulse Oximetry 99 % Jean Claude Killian [facility] [place] 05-14-2020 08:07-0400 Respiratory Rate 18 /min Jean Claude Killian [facility] 05-13-2020 06:00-0400 BMI (Body Mass Index) 34.32 kg/m2 Jean Claude Killian [facility] [place] 05-13-2020 06:00-0400 Body weight 102.38 kg Jean Claude Killian [facility] [place] [facility] [place] 05-09-2020 08:10-0400 Height 172.7 cm Jean Claude Killian [facility] [place] [facility] [place] 05-01-2020 10:50-0400 BMI (Body Mass Index) 31.78 kg/m2 Jean Claude Killian [facility] [place] 05-01-2020 10:50-0400 Body Temperature 97.59 [degF] Jean Claude [employer] [place] 05-01-2020 10:50-0400 Body weight 94.8 kg [facility] [place] 05-01-2020 10:50-0400 BP Diastolic 57 mm[Hg] [facility] [place] 05-01-2020 10:50-0400 BP Systolic 113 mm[Hg] [facility] [place] 05-01-2020 10:50-0400 Height 172.7 cm [facility] [place] 05-01-2020 10:50-0400 Pulse (Heart Rate) 82 /min [facility] [place] 05-01-2020 10:50-0400 Pulse Oximetry 95 % [facility] [place] 05-01-2020 10:50-0400 Respiratory Rate 16 /min [facility] [place] 05-18-2017 10:58-0400 BMI (Body Mass Index) 35.62 kg/m2 Anuel Rodriges MD [facility] Work Phone: 05-18-2017 10:58-0400 Body Temperature 98.3 [degF] Anuel Rodriges MD [facility] Work Phone: 05-18-2017 10:58-0400 BP Diastolic 78 mm[Hg] Anuel Rodriges MD [facility] Work Phone: 05-18-2017 10:58-0400 BP Systolic 137 mm[Hg] Anuel Rodriges MD [facility] Work Phone: 05-18-2017 10:58-0400 Height 175.26 cm Anuel Rodriges MD [facility] Work Phone: 05-18-2017 10:58-0400 Pulse (Heart Rate) 82 /min Anuel Rodriges MD [facility] Work Phone: 05-18-2017 10:58-0400 Respiratory Rate 16 /min Anuel Rodriges MD [facility] Work Phone: 05-18-2017 10:58-0400 Weight 109.41 kg Anuel Rodriges MD [facility] Work Phone: 05-05-2017 16:22-0400 BMI (Body Mass Index) 35.26 kg/m2 Anuel Rodriges MD [facility] Work Phone: 05-05-2017 16:22-0400 Body Temperature 97.5 [degF] Anuel Rodriges MD [facility] Work Phone: 05-05-2017 16:22-0400 BP Diastolic 77 mm[Hg] Anuel Rodriges MD [facility] Work Phone: 05-05-2017 16:22-0400 BP Systolic 132 mm[Hg] Anuel Rodriges MD [facility] Work Phone: 05-05-2017 16:22-0400 BSA (Body Surface Area) 2.23 m2 Anuel Rodriges MD [facility] Work Phone: 05-05-2017 16:22-0400 Height 175.26 cm Anuel Rodriges MD [facility] Work Phone: 05-05-2017 16:22-0400 Pulse (Heart Rate) 88 /min Anuel Rodriges MD [facility] Work Phone: 05-05-2017 16:22-0400 Respiratory Rate 14 /min Anuel Rodriges MD [facility] Work Phone: 05-05-2017 16:22-0400 Weight 108.32 kg Anuel Rodriges MD [facility] Work Phone: 04-13-2017 15:23-0400 BMI (Body Mass Index) 35.41 kg/m2 Anuel Rodriges MD [facility] Work Phone: 04-13-2017 15:23-0400 Body Temperature 97.1 [degF] Anuel Rodriges MD [facility] Work Phone: 04-13-2017 15:23-0400 BP Diastolic 68 mm[Hg] Anuel Rodriges MD [facility] Work Phone: 04-13-2017 15:23-0400 BP Systolic 126 mm[Hg] Anuel Rodrigse MD [facility] Work Phone: 04-13-2017 15:23-0400 BSA (Body Surface Area) 2.23 m2 Anuel Rodriges MD [facility] Work Phone: 04-13-2017 15:23-0400 Height 175.26 cm Anuel Rodriges MD [facility] Work Phone: 04-13-2017 15:23-0400 Pulse (Heart Rate) 80 /min Anuel Rodriges MD [facility] Work Phone: 04-13-2017 15:23-0400 Respiratory Rate 14 /min Anuel Rodriges MD [facility] Work Phone: 04-13-2017 15:23-0400 Weight 108.77 kg Anuel Rodriges MD [facility] Work Phone: 04-08-2017 13:57-0400 BMI (Body Mass Index) 35.35 kg/m2 Anuel Rodriges MD [facility] Work Phone: 04-08-2017 13:57-0400 Body Temperature 97 [degF] Anuel Rodriges MD [facility] Work Phone: 04-08-2017 13:57-0400 BP Diastolic 78 mm[Hg] Anuel Rodriges MD [facility] Work Phone: 04-08-2017 13:57-0400 BP Systolic 144 mm[Hg] Anuel Rodriges MD [facility] Work Phone: 04-08-2017 13:57-0400 BSA (Body Surface Area) 2.23 m2 Anuel Rodriges MD [facility] Work Phone: 04-08-2017 13:57-0400 Height 175.26 cm Anuel Rodriges MD [facility] Work Phone: 04-08-2017 13:57-0400 Pulse (Heart Rate) 87 /min Anuel Rodriges MD [facility] Work Phone: 04-08-2017 13:57-0400 Respiratory Rate 14 /min Anuel Rodriges MD [facility] Work Phone: 04-08-2017 13:57-0400 Weight 108.59 kg Anuel Rodriges MD [facility] Work Phone: 03-31-2017 16:36-0400 BMI (Body Mass Index) 36.03 kg/m2 Anuel Rodriges MD [facility] Work Phone: 03-31-2017 16:36-0400 Body Temperature 97 [degF] Anuel Rodriges MD [facility] Work Phone: 03-31-2017 16:36-0400 BP Diastolic 80 mm[Hg] Anuel Rodriges MD [facility] Work Phone: 03-31-2017 16:36-0400 BP Systolic 147 mm[Hg] Anuel Rodriges MD [facility] Work Phone: 03-31-2017 16:36-0400 BSA (Body Surface Area) 2.25 m2 Anuel Rodriges MD [facility] Work Phone: 03-31-2017 16:36-0400 Height 175.26 cm Anuel Rodriges MD [facility] Work Phone: 03-31-2017 16:36-0400 Pulse (Heart Rate) 83 /min Anuel Rodriges MD [facility] Work Phone: 03-31-2017 16:36-0400 Respiratory Rate 14 /min Anuel Rodriges MD [facility] Work Phone: 03-31-2017 16:36-0400 Weight 110.68 kg Anuel Rodriges MD [facility] Work Phone: 03-25-2017 04:26-0400 Body surface area Derived from formula 72.00 mL/min Anuel Rodriges MD [facility] Work Phone: 10-31-2014 09:12-0500 BMI (Body Mass Index) 39.87 kg/m2 Dorinda Gavin [facility] Work Phone: 10-31-2014 09:12-0500 Weight 122.47 kg Dorinda Gavin [facility] Work Phone: 01-11-2014 11:06-0400 BP Diastolic 88 mm[Hg] Dorinda Gavin [facility] Work Phone: 01-11-2014 11:06-0400 BP Systolic 138 mm[Hg] Dorinda Gavin [facility] Work Phone: 01-11-2014 11:06-0400 Height 175.26 cm Dorinda Gavin [facility] Work Phone: Encounters Encounter Date Encounter Type Care Provider Facility Start: 04-15-2025 Evaluation and manag ement of inpatient Dr. Debora Diaz MD -Progressive Care Unit Work Phone: Start: 04-01-2025 End: 04-01-2025 Office outpatient visit 25 minutes Lisa Quintanilla MD Work Phone: [facility] Comment on above: Contact dermatitis d ue to plant (Primary Dx) Start: 04-01-2025 End: 04-01-2025 ambulatory AARON SOLORZANO Facility:[facility] Start: 03-29-2025 End: 04-01-2025 Refill Aaron Solorzano MD Work Phone: [facility] Comment on above: Refill Request Start: 03-08-2025 End: 03-08-2025 Refill Aaron Solorzano MD Work Phone: [facility] Comment on above: Refill Request (Need s today) Start: 02-18-2025 End: 02-20-2025 Telephone encounter Aaron Solorzano MD Work Phone: [facility] Comment on above: requesting m edication Start: 02-13-2025 End: 02-13-2025 ambulatory Nadege Seo MA [facility] Start: 02-13-2025 End: 02-13-2025 Patient encounter procedure Nadege Seo MA [facility] Comment on above: Population Health Na vigation Outreach ([facility] ) Start: 02-11-2025 End: 02-11-2025 Office outpatient visit 25 minutes Aaron Solorzano MD Work Phone: [facility] Comment on above: Lumbar spondylosis ( Primary Dx); Controlled type 2 diabetes mellitus with diabetic neuropathy, with long-term current use of insulin (HCC); Degeneration of intervertebral disc of lumbar region with discogenic back pain and lower extremity pain; Sensation of foreign body in finger; Mixed hyperlipidemia; Anemia of chronic disease Start: 02-11-2025 End: 02-11-2025 ambulatory AARON SOLORZANO Facility:[facility] Start: 01-28-2025 End: 01-29-2025 Refill Aaron Solorzano MD Work Phone: [facility] Comment on above: Refill Request Start: 01-24-2025 End: 01-25-2025 Telephone encounter Aaron Solorzano MD Work Phone: [facility] Comment on above: medication question Start: 01-09-2025 End: 01-09-2025 Patient encounter procedure Lucy Velasco -Radiology [facility] Work Phone: Start: 01-09-2025 End: 01-09-2025 ambulatory Mike Solorzano Facility:[facility] Start: 01-02-2025 End: 01-02-2025 Telephone encounter Aaron Solorzano MD Work Phone: [facility] Comment on above: Received Outside Med ical Records ([facility] PT discharge) Start: 01-01-2025 End: 01-01-[address] Mike Solorzano MD Work Phone: [facility] Work Phone: Start: 01-01-2025 End: 01-01-[address] Mike Solorzano MD -Physical Therapy Work Phone: Start: 01-01-2025 End: 01-01-2025 Telephone encounter Aaron Solorzano MD Work Phone: [facility] Comment on above: Refill Request Start: 12-26-2024 End: 12-26-2024 Telephone encounter Aaron Solorzano MD Work Phone: [facility] Comment on above: Received Outside Med ical Records ([facility]) Start: 12-25-2024 ambulatory Mike Solorzano Facility :[facility] Start: 12-25-2024 Non-patient / Non-visit Dr. Rod gomez MD -[facility] Start: 12-25-2024 End: 12-25-[address] Rod Maravilla MD -Cardiovascular Services Work Phone: Start: 12-25-2024 End: 12-25-2024 ambulatory [facility] Facility:[facility] Start: 12-14-[address] Devaughn Solorzano MD -Physical Therapy Work Phone: Start: 12-13-2024 End: 12-13-2024 Telephone encounter Aaron Solorzano MD Work Phone: [facility] Comment on above: Received Outside Med ical Records ([facility] labs) Start: 12-11-2024 End: 12-11-[address] Mike Solorzano MD Work Phone: [facility] Work Phone: Start: 12-11-2024 End: 12-11-[address] Rod Maravilla MD -Laboratory Work Phone: Start: 12-11-2024 End: 12-11-2024 ambulatory [facility] Facility:[facility] Start: 12-05-2024 End: 12-05-2024 Subsequent hospital visit by physician [facility] Work Phone: Radiology Comment on above: Swelling of hand ya nt, left [M25.442] Start: 12-05-2024 End: 12-05-2024 ambulatory AARON SOLORZANO Facility:[facility] Start: 12-05-2024 End: 12-05-2024 Office outpatient visit 15 minutes Lisa Quintanilla MD Work Phone: [facility] Comment on above: Swelling of hand ya nt, left (Primary Dx) Start: 11-30-2024 End: 12-03-2024 Telephone encounter Aaron Solorzano MD Work Phone: [facility] Comment on above: Received Outside Med ical Records (Cardiology Rod Maravilla MD 11/28/24 [facility]) Start: 11-28-2024 End: 11-28-[address] Rod Maravilla MD -[facility] Work Phone: Start: 11-28-2024 End: 11-29-2024 Refill Aaron Solorzano MD Work Phone: [facility] Comment on above: Refill Request Start: 11-19-2024 End: 11-19-2024 Telephone encounter Aaron Solorzano MD Work Phone: [facility] Comment on above: Received Outside Med ical Records ([facility] physical therapy) Start: 11-08-2024 End: 11-08-2024 ambulatory AARON SOLORZANO Facility:[facility] Start: 11-08-2024 End: 11-08-2024 Office outpatient visit 15 minutes Aaron Solorzano MD Work Phone: [facility] Comment on above: LIAN (obstructive sle ep apnea) (Primary Dx); Controlled type 2 diabetes mellitus with diabetic neuropathy, with long-term current use of insulin (HCC); Balance problem Start: 11-06-2024 End: 11-06-2024 Refill Aaron Solorzano MD Work Phone: [facility] Comment on above: Refill Request Start: 11-02-2024 End: 11-02-2024 Refill Aaron Solorzano MD Work Phone: [facility] Comment on above: Refill Request Start: 10-25-2024 End: 10-25-2024 Refill Aaron Solorzano MD Work Phone: [facility] Comment on above: Refill Request Start: 09-14-2024 End: 09-14-2024 Refill Aaron Solorzano MD Work Phone: [facility] Comment on above: Refill Request Start: 08-15-2024 End: 08-15-2024 Telephone encounter Daxa Wing APRN.CNP Work Phone: [facility] Comment on above: Patient Question Start: 08-13-2024 End: 08-13-2024 ambulatory DAXA WING Facility:[facility] Start: 08-13-2024 End: 08-13-2024 Office outpatient visit 25 minutes Daxa Wing CONSOLE ATTENDANT.CLIENT SERVICES MANAGER Work Phone: [facility] Comment on above: Controlled type 2 di abetes mellitus with diabetic neuropathy, with long-term current use of insulin (HCC) (Primary Dx); Essential hypertension, benign; Mixed hyperlipidemia Start: 08-09-2024 End: 08-09-2024 Refill Aaron Solorzano MD Work Phone: [facility] [place] Comment on above: Refill Request medication not on cu rrent med list; Patient Question Start: 08-07-2024 End: 08-07-2024 Refill Aaron Solorzano MD Work Phone: [facility] Comment on above: Refill Request Start: 08-02-2024 End: 08-02-2024 Refill Aaron Solorzano MD Work Phone: [facility] Comment on above: Refill Request Start: 07-13-2024 End: 07-13-2024 Refill Aaron Solorzano MD Work Phone: [facility] Comment on above: Refill Request Start: 07-09-2024 End: 07-09-2024 Refill Aaron Solorzano MD Work Phone: [facility] Comment on above: Refill Request Start: 05-31-2024 End: 05-31-2024 Telephone encounter Aaron Solorzano MD Work Phone: [facility] Comment on above: Received Outside Med ical Records ([facility]) Start: 05-31-2024 End: 05-31-2024 ambulatory Rod Taiwo Facility:[facility] Start: 05-19-2024 End: 05-19-2024 ambulatory AARON SOLORZANO Facility:[facility] Start: 05-19-2024 End: 05-19-2024 Office outpatient visit 25 minutes Lisa Quintanilla MD Work Phone: [facility] Comment on above: Rash (Primary Dx) Start: 05-04-2024 End: 05-04-2024 Refill Aaron Solorzano MD Work Phone: [facility] Comment on above: Refill Request Start: 04-19-2024 End: 04-19-2024 Refill Aaron Solorzano MD Work Phone: Family Practice Comment on above: Refill Request Start: 04-02-2024 Telephone encounter Aaron Solorzano MD Work Phone: [facility] Comment on above: Rx refill; not on cu rrent med list Start: 03-30-2024 Telephone encounter Aaron Solorzano MD Work Phone: [facility] Comment on above: Received Outside Med ical Records ([facility] CTA head and Neck with contrast. 03/29/2024) Start: 03-29-2024 End: 03-29-[address] [facility] Facility:[facility] Start: 03-19-2024 Refill Aaron fair MD Work Phone: [facility] Comment on above: Refill Request Start: 03-14-2024 End: 03-14-[address] [facility] Facility:[facility] Start: 03-13-2024 Telephone encounter Aaron Solorzano MD Work Phone: [facility] Comment on above: Received Outside Med ical Records ([facility] Visit summary 03/08/2024 Right elbow pain and swelling. ) Start: 02-29-2024 Telephone encounter Aaron Solorzano MD Work Phone: [facility] Comment on above: requesting medicatio n that is . Start: 02-07-2024 Refill Aaron fair MD Work Phone: [facility] Comment on above: Refill Request Start: 01-17-2024 Telephone encounter Aaron Solorzano MD Work Phone: [facility] Comment on above: medication requested not on current med list Start: 01-10-2024 Telephone encounter Aaron Solorzano MD Work Phone: [facility] Comment on above: Received Outside Med ical Records (Carotid Duplex [facility]) Start: 01-09-2024 Telephone encounter Aaron Solorzano MD Work Phone: [facility] Comment on above: Received Outside Med ical Records (Cardiac echo report 01/09/24) Start: 12-20-2023 End: 12-20-2023 Patient encounter procedure Aaron Solorzano MD Work Phone: [facility] Comment on above: LIAN (obstructive sle ep apnea) (Primary Dx) Start: 12-12-2023 Refill Aaron fair MD Work Phone: [facility] Comment on above: Refill Request ([place] al cleaning - see RX notes) Start: 11-30-2023 Telephone encounter Aaron Solorzano MD Work Phone: [facility] Comment on above: Received Outside Med ical Records ([employer] Cpap Supplies Prescription & Certificate of medical necessity Cpap supplies 11/30/2023) Start: 11-28-2023 Telephone encounter Aaron Solorzano MD Work Phone: [facility] Comment on above: Refill Request Start: 10-24-2023 Telephone encounter Aaron Solorzano MD Work Phone: [facility] Comment on above: Medication Problem ( Levomir) Start: 10-19-2023 Telephone encounter Aaron Solorzano MD Work Phone: [facility] Comment on above: Received Outside Med ical Records ([facility] Review Notice of denial True Metrix Glucose test strips 10/18/2023) Start: 10-17-2023 End: 10-17-2023 Patient encounter procedure Aaron Solorzano MD Work Phone: [facility] Comment on above: Chronic midline low back pain without sciatica (Primary Dx); Lumbar degenerative disc disease; Controlled type 2 diabetes mellitus with diabetic neuropathy, with long-term current use of insulin (HCC); Longstanding persistent atrial fibrillation (HCC); Peripheral arterial disease (HCC); Thrombocytopenia (HCC); Chronic idiopathic urticaria; Essential hypertension, benign; Spinal cord stimulator status; History of atrial fibrillation; Lumbosacral neuritis; Mild cognitive disorder Start: 10-14-2023 ambulatory Aaron fair MD Work Phone: [facility] Comment on above: 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) Start: 10-13-2023 ambulatory Karla [facility] Comment on above: Population Health vigation Outreach ([facility] Outreach ) Start: 10-04-2023 Telephone encounter Aaron Solorzano MD Work Phone: [facility] Comment on above: Medication Request Start: 08-11-2023 Refill Aaron fair MD Work Phone: [facility] Comment on above: Refill Request Start: 07-14-2023 Refill Aaron fair MD Work Phone: [facility] Comment on above: Refill Request Medication Request ( Amoxicillin for dental work appointments - needs at least 2 visits worth ) Start: 06-17-2023 Telephone encounter Aaron Solorzano MD Work Phone: [facility] Comment on above: Insurance Authorizat ion ([facility] Review Additional information for prior authorization for Levemir 06/17/2023) Start: 06-16-2023 End: 06-16-2023 Patient encounter procedure Aaron Solorzano MD Work Phone: [facility] Comment on above: Lumbar degenerative disc disease (Primary Dx); Encounter for immunization; Controlled type 2 diabetes mellitus with diabetic neuropathy, with long-term current use of insulin (HCC); Mixed hyperlipidemia; Varicose veins of leg with pain, right Start: 06-10-2023 Refill Aaron fair MD Work Phone: [facility] Comment on above: Refill Request Start: 05-19-2023 Telephone encounter Aaron Solorzano MD Work Phone: [facility] Comment on above: Refill Request; Medi cation Request Start: 05-12-2023 Telephone encounter Aaron Solorzano MD Work Phone: [facility] Comment on above: Received Outside Med ical Records ([facility] 05/10/23) Start: 04-21-2023 Telephone encounter Pravin Hampton MD Work Phone: [facility] Comment on above: No Show (Not No Show , patient called to cancel) Start: 04-18-2023 Telephone encounter Aaron Solorzano MD Work Phone: [facility] Comment on above: diabetic shoes Start: 04-15-2023 Refill Aaron fair MD Work Phone: [facility] Comment on above: Refill Request Start: 03-02-2023 ambulatory Nadege Seo [facility] Comment on above: Population Health Na vigation Outreach ([facility]) Start: 03-02-2023 Telephone encounter Analilia Pool DO Work Phone: [facility] Comment on above: Patient Update Start: 02-18-2023 Telephone encounter Aaron Solorzano MD Work Phone: [facility] Comment on above: Medication Request ( Not on current list) Start: 02-17-2023 End: 02-17-2023 Office outpatient visit 15 minutes Daxa Moody APRN.CLIENT SERVICES MANAGER Work Phone: [facility] Comment on above: Varicose veins of le g with pain, right (Primary Dx) Start: 02-11-2023 Refill Daxa Moody APRN.CLIENT SERVICES MANAGER Work Phone: [facility] Comment on above: Refill Request Start: 02-06-2023 Non-patient / Non-visit Dr. Daren Solorzano Work Phone: [facility] Start: 02-06-2023 End: 02-06-[address] Mike Solorzano Work Phone: [facility] Work Phone: Start: 02-06-2023 End: 02-06-[address] Mike Solorzano Work Phone: [facility] Start: 02-05-2023 End: 02-05-2023 Emergency department patient visit [facility] Start: 01-06-2023 Telephone encounter Aaron Solorzano MD Work Phone: [facility] Comment on above: Medication Request Start: 12-01-2022 Telephone encounter Aaron Solorzano MD Work Phone: [facility] Comment on above: Orders (CPAP supplie s [employer]) Start: 11-12-2022 Telephone encounter Aaron Solorzano MD Work Phone: [facility] Comment on above: CPAP Supplies ([employer] Cpap & Supplies New order for supplies 11/11/2022) Start: 10-26-2022 Refill Aaron fair MD Work Phone: [facility] Comment on above: Refill Request Start: 10-05-2022 Refill Dominic fritz MD Work Phone: [facility] Comment on above: Refill Request Start: 09-13-2022 Telephone encounter Daxa iverson CONSOLE ATTENDANT.CLIENT SERVICES MANAGER Work Phone: [facility] Comment on above: Results Start: 08-25-2022 End: 08-25-2022 Office outpatient visit 15 minutes Daxa Moody CONSOLE ATTENDANT.CLIENT SERVICES MANAGER Work Phone: [facility] Comment on above: Encounter for immuni zation (Primary Dx); Controlled type 2 diabetes mellitus with diabetic neuropathy, with long-term current use of insulin (HCC); Mixed hyperlipidemia; Depression screening; Advanced care planning/counseling discussion Start: 08-18-2022 Refill Aaron fair MD Work Phone: [facility] Comment on above: Refill Request Start: 08-16-2022 Telephone encounter Aaron Solorzano MD Work Phone: [facility] Comment on above: Received Outside Med ical Records ([facility] 08/16/22) Start: 08-13-2022 Refill Daxa Moody CONSOLE ATTENDANT.CLIENT SERVICES MANAGER Work Phone: Family Practice Comment on above: Refill Request Start: 07-26-2022 Refill Aaron fair MD Work Phone: [facility] Comment on above: Refill Request Start: 06-04-2022 ambulatory Carrie Sharif land PA-C Work Phone: [facility] Start: 06-04-2022 E-mail encounter fro m caregiver Carrie Sharifland PA-C Work Phone: [facility] Start: 05-31-2022 Refill Aaron fair MD Work Phone: [facility] Comment on above: Refill Request Start: 05-17-2022 Telephone encounter Carrie Vasquez PA-C Work Phone: [facility] Comment on above: Orders Start: 03-26-2022 Refill aAron fair MD Work Phone: [facility] Comment on above: Refill Request Start: 03-22-2022 Telephone encounter Aaron oSlorzano MD Work Phone: [facility] Comment on above: Received Outside Med ical Records ([facility] EKG 03/16/2022) Start: 03-16-2022 Telephone encounter Aaron Solorzano MD Work Phone: [facility] Comment on above: Abnormal Chest X-ray ([facility]) Start: 03-16-2022 End: 03-16-2022 Emergency department patient visit Dr. 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 Mike Solorzano Work Phone: [facility] Start: 10-22-2021 End: 10-23-2021 Evaluation and management of inpatient MIKE RAI DO [facility] Start: 10-15-2021 End: 10-15-2021 Patient encounter procedure MIKE RAI DO [facility] Start: 10-15-2021 End: 10-15-2021 Admission to establishment MIKE RAI DO [facility] Start: 07-04-2020 End: 07-04-2020 Subsequent hospital visit by physician Doug Rodriguez Work Phone: [facility] Start: 05-30-2020 End: 06-02-2020 Evaluation and management of inpatient Jean Claude A Killian Work Phone: [facility] Comment on above: Other acute pericard itis (Primary Dx); S/P AVR Start: 05-19-2020 End: 05-19-2020 Subsequent hospital visit by physician Migue Gregorio Work Phone: [facility] Comment on above: Dyspnea on exertion Start: 05-08-2020 End: 05-14-2020 Evaluation and management of inpatient Jean Claude A Ikllian Work Phone: [facility] Start: 05-01-2020 End: 05-01-2020 Subsequent hospital visit by physician Jean Claude Killian Work Phone: [facility] Pre-Admit Testing Comment on above: Pre-op testing (Prim maribel Dx); Coronary artery disease involving coronary bypass graft of [place] heart without angina pectoris Start: 12-06-2018 End: 12-06-[address] [facility] Start: 04-28-2018 [facility] :[facility] Start: 10-26-2017 End: 10-26-2017 [facility] Facility:[facility] Procedures Date Procedure Procedure Detail Performing Clinician Start: 04-15-2025 CT of thorax, abdome n and pelvis with contrast Dr. Mike Solorzano MD Work Phone: Start: 04-15-2025 Plain chest X-ray Dr. Raquel Solorzano MD Work Phone: Start: 04-15-2025 Urnls dip stick/tabl et reagent auto microscopy Dr. Mike Solorzano MD Work Phone: Start: 04-15-[address] Mike Solorzano MD Work Phone: Start: 04-15-2025 SARS-CoV-2, Influenz a & RSV (PCR) Dr. Mike Solorzano MD Work Phone: Start: 01-09-2025 Complete x-ray serie s of lumbar spine with bending views Dr. Mike Solorzano MD Work Phone: Start: 12-05-2024 Radex hand minimum 3 views Lisa Quintanilla MD Work Phone: Start: 08-13-2024 Hemoglobin A1c/Hemoglobin.total in Blood Daxa Wing CONSOLE ATTENDANT.CLIENT SERVICES MANAGER Work Phone: Start: 12-20-2023 Adult depression scr eening assessment Aaron Solorzano MD Work Phone: Start: 06-16-2023 PFIZER-BIONTECH COVI D-19 VACCINE (2022- SEASON) AGE 12+ YR Aaron Solorzano MD Work Phone: Start: 02-05-2023 Plain X-ray of femur Start: 08-25-2022 PFIZER-BIONTECH COVI D-19 BIVALENT BOOSTER VACCINE, AGE 12+ YR Daxa Moody CONSOLE ATTENDANT.CLIENT SERVICES MANAGER Work Phone: Start: 03-16-2022 Plain chest X-ray Dr. Raquel Solorzano Work Phone: Start: 04-01-2021 Adult depression scr eening assessment Aaron Solorzano MD Work Phone: Start: 07-04-2020 POC INR Unknown Pr ovider Result Start: 06-04-2020 Microscopic examinat ion of blood, culture Comment on above: Order Comment: Speci men Source Comment:Blood Performed By: #### M G3, BMP3 #### [employer] [place] [address] [address] Start: 06-02-2020 Gluc bld gluc mntr d ev cleared fda spec home use Jean Claude A Killian Work Phone: Start: 06-02-2020 Microscopic examinat ion of blood, culture Comment on above: Order Comment: Speci men Source Comment:Blood Performed By: #### M G3, BMP3 #### [employer] [address] [place] [address] Start: 06-02-2020 Gluc bld gluc mntr d ev cleared fda spec home use Jean Claude A Killian Work Phone: Start: 06-02-2020 Assay of magnesium Jean Claude A Killian Work Phone: Start: 06-02-2020 Basic metabolic pane l calcium total Jean Claude A Killian Work Phone: Start: 06-02-2020 Blood count complete auto&auto difrntl wbc Velasquez Powers Janette Work Phone: Start: 06-01-2020 Gluc bld gluc mntr d ev cleared fda spec home use Jean Claude A Killian Work Phone: Start: 06-01-2020 Gluc bld gluc mntr d ev cleared fda spec home use Jean Claude A Killian Work Phone: Start: 06-01-2020 Gluc bld gluc mntr d ev cleared fda spec home use Jean Claude A Killian Work Phone: Start: 06-01-2020 Gluc bld gluc mntr d ev cleared fda spec home use Jean Claude A Killian Work Phone: Start: 06-01-2020 Radiologic exam ches t single view Migue Gregorio Work Phone: Start: 06-01-2020 ADD ON LAB TEST Migue Marx rd Work Phone: Start: 06-01-2020 Assay of magnesium Gabe hew R [employer] Work Phone: Start: 06-01-2020 BASIC METABOLIC PANE L W/ REFLEX TO MG FOR LOW K Migeu Gregorio Work Phone: Start: 06-01-2020 Blood count complete auto&auto difrntl wbc Velasquez R [employer] Work Phone: Start: 06-01-2020 MANUAL DIFFERENTIAL Mat thew R [employer] Work Phone: Start: 05-31-2020 Gluc bld gluc mntr d ev cleared fda spec home use Jean Claude A Killian Work Phone: Start: 05-31-2020 Drug screen quantita tive vancomycin Ban Cloke Work Phone: Start: 05-31-2020 Gluc bld gluc mntr d ev cleared fda spec home use Jean Claude A Killian Work Phone: Start: 05-31-2020 Gluc bld gluc mntr d ev cleared fda spec home use Jean Claude A Killian Work Phone: Start: 05-31-2020 Us retroperitoneal r eal time w/image limited Chan Gio Castro Work Phone: Start: 05-31-2020 End: 05-31-2020 Gluc bld gluc mntr dev cleared fda spec home use Jean Claude A Killian Work Phone: Start: 05-31-2020 Basic metabolic pane l calcium total Velasquez R Janette Work Phone: Start: 05-31-2020 Blood count complete auto&auto difrntl wbc Velasquez Powers [employer] Work Phone: Start: 05-31-2020 C-reactive protein Gabe zuhair Powers [employer] Work Phone: Start: 05-31-2020 Hemoglobin glycosyla barbara a1c Velasquez Powers [employer] Work Phone: Start: 05-31-2020 Prothrombin time Matthfay w Gio [employer] Work Phone: Start: 05-31-2020 Sedimentation rate r bc automated Velasquez Powers [employer] Work Phone: Start: 05-31-2020 End: 05-31-2020 Gluc bld gluc mntr dev cleared fda spec home use Jean Claude A [employer] Work Phone: Start: 05-31-2020 End: 05-31-2020 Gluc bld gluc mntr dev cleared fda spec home use Jean Claude A [employer] Work Phone: Start: 05-31-2020 Gluc bld gluc mntr d ev cleared fda spec home use Jean Claude A [employer] Work Phone: Start: 05-30-2020 Gluc bld gluc mntr d ev cleared fda spec home use Jean Claude A [employer] Work Phone: Start: 05-30-2020 End: 05-30-2020 Gluc bld gluc mntr dev cleared fda spec home use Jean Claude A [employer] Work Phone: Start: 05-30-2020 Gluc bld gluc mntr d ev cleared fda spec home use Jean Claude A Killian Work Phone: Start: 05-30-2020 End: 05-30-2020 Gluc bld gluc mntr dev cleared fda spec home use Jean Claude A [employer] Work Phone: Start: 05-30-2020 End: 05-30-2020 Gluc bld gluc mntr dev cleared fda spec home use Jean Claude A [employer] Work Phone: Start: 05-30-2020 Echo tthrc r-t 2d w/wom-mode compl spec&colr d Velasquez Powers [employer] Work Phone: Start: 05-30-2020 End: 05-30-2020 Gluc bld gluc mntr dev cleared fda spec home use Jean Claude A Killian Work Phone: Start: 05-30-2020 Gluc bld gluc mntr d ev cleared fda spec home use Jean Claude A Killian Work Phone: Start: 05-30-2020 Culture bacterial bl ood aerobic w/id isolates Velasquez Powers [employer] Work Phone: Start: 05-30-2020 CULTURE, BLOOD 1 Amy Powers [employer] Work Phone: Start: 05-30-2020 Prothrombin time Amy Powers [employer] Work Phone: Start: 05-30-2020 Assay of magnesium Jean Claude A Killian Work Phone: Start: 05-30-2020 Assay of phosphorus inorganic Jean Claude A Killian Work Phone: Start: 05-30-2020 Assay of troponin quantitative Jean Claude A Killian Work Phone: Start: 05-30-2020 Blood count complete auto&auto difrntl wbc Jean Claude A Killian Work Phone: Start: 05-30-2020 Comprehensive metabo lic panel Jean Claude A Killian Work Phone: Start: 05-30-2020 Hepatic function panel Jean Claude A Killian Work Phone: Start: 05-30-2020 Lipid panel Jean Claude A Radha inal Work Phone: Start: 05-30-2020 PROTIME/INR & PTT Jean Claude A Killian Work Phone: Start: 05-30-2020 Ecg routine ecg w/le ast 12 lds w/i&r Jean Claude A Killian Work Phone: Start: 05-19-2020 Radiologic exam ches t 2 views Migue Gregorio Work Phone: Start: 05-14-2020 Gluc bld gluc mntr d ev cleared fda spec home use Jean Claued A Killian Work Phone: Start: 05-14-2020 Radiologic exam ches t single view Jean Claude A Killian Work Phone: Start: 05-14-2020 Assay of magnesium Jean Claude A Killian Work Phone: Start: 05-14-2020 Basic metabolic pane l calcium total Jean Claude A Killian Work Phone: Start: 05-14-2020 Blood count complete automated Jean Claude A Killian Work Phone: Start: 05-14-2020 Prothrombin time Migue Ba ird Work Phone: Start: 05-13-2020 Gluc bld gluc mntr d ev cleared fda spec home use Jean Claude A Killian Work Phone: Start: 05-13-2020 Gluc bld gluc mntr d ev cleared fda spec home use Jean Claude A Killian Work Phone: Start: 05-13-2020 Gluc bld gluc mntr d ev cleared fda spec home use Jean Claude A Killian Work Phone: Start: 05-13-2020 Radiologic exam ches t single view Jean Claude A Killian Work Phone: Start: 05-13-2020 Assay of magnesium Jean Claude A Killian Work Phone: Start: 05-13-2020 Basic metabolic pane l calcium total Jean Claude A Killian Work Phone: Start: 05-13-2020 Blood count complete automated Jean Claude A Killian Work Phone: Start: 05-13-2020 Prothrombin time Migue Ba ird Work Phone: Start: 05-12-2020 Gluc bld gluc mntr d ev cleared fda spec home use Jean Claude A Killian Work Phone: Start: 05-12-2020 Gluc bld gluc mntr d ev cleared fda spec home use Jean Claude A Killian Work Phone: Start: 05-12-2020 Gluc bld gluc mntr d ev cleared fda spec home use Jean Claude A Killian Work Phone: Start: 05-12-2020 Gluc bld gluc mntr d ev cleared fda spec home use Jean Claude A Killian Work Phone: Start: 05-12-2020 Ecg routine ecg w/le ast 12 lds w/i&r Jean Claude A Killian Work Phone: Start: 05-12-2020 Assay of magnesium Jean Claude A Killian Work Phone: Start: 05-12-2020 Basic metabolic pane l calcium total Jean Claude A Killian Work Phone: Start: 05-12-2020 Gluc bld gluc mntr d ev cleared fda spec home use Jean Claude A Killian Work Phone: Start: 05-12-2020 Blood count hemoglobin Gato Emir Work Phone: Start: 05-12-2020 Calcium ionized Gato B asit Work Phone: Start: 05-12-2020 Transfuse erythrocyt es [Volume] Bryce Ching Work Phone: Start: 05-12-2020 Radiologic exam ches t single view Jean Claude A Killian Work Phone: Start: 05-12-2020 Assay of magnesium Jean Claude A Killian Work Phone: Start: 05-12-2020 Basic metabolic pane l calcium total Jean Claude A Killian Work Phone: Start: 05-12-2020 Prothrombin time Migue Ba ird Work Phone: Start: 05-12-2020 Blood count complete automated Jean Claude A Killian Work Phone: Start: 05-11-2020 Gluc bld gluc mntr d ev cleared fda spec home use Jean Claude A Killian Work Phone: Start: 05-11-2020 Transfuse erythrocyt es [Volume] Lisa Burkett Work Phone: Start: 05-11-2020 Gluc bld gluc mntr d ev cleared fda spec home use Jean Claude A Killian Work Phone: Start: 05-11-2020 Blood typing serologic abo Lisa Burkett Work Phone: Start: 05-11-2020 Gluc bld gluc mntr d ev cleared fda spec home use Jean Claude A Killian Work Phone: Start: 05-11-2020 Blood count complete auto&auto difrntl wbc Jean Claude A Killian Work Phone: Start: 05-11-2020 Radiologic exam ches t single view Jean Claude A Killian Work Phone: Start: 05-11-2020 Assay of magnesium Jean Claude A Killian Work Phone: Start: 05-11-2020 Basic metabolic pane l calcium total Jean Claude A Killian Work Phone: Start: 05-11-2020 Prothrombin time Migue Ba ird Work Phone: Start: 05-10-2020 Gluc bld gluc mntr d ev cleared fda spec home use Jean Claude A Killian Work Phone: Start: 05-10-2020 Gluc bld gluc mntr d ev cleared fda spec home use Jean Claude A Killian Work Phone: Start: 05-10-2020 Gluc bld gluc mntr d ev cleared fda spec home use Jean Claude A Killian Work Phone: Start: 05-10-2020 Gluc bld gluc mntr d ev cleared fda spec home use Jean Claude A Killian Work Phone: Start: 05-10-2020 Assay of magnesium Jean Claude A Killian Work Phone: Start: 05-10-2020 Basic metabolic pane l calcium total Jean Claude A Killian Work Phone: Start: 05-10-2020 Blood count complete automated Jean Claude A Killian Work Phone: Start: 05-10-2020 Radiologic exam ches t single view Jean Claude A Killian Work Phone: Start: 05-09-2020 Gluc bld gluc mntr d ev cleared fda spec home use Jean Claude A Killian Work Phone: Start: 05-09-2020 Gluc bld gluc mntr d ev cleared fda spec home use Jean Claude A Killian Work Phone: Start: 05-09-2020 Gluc bld gluc mntr d ev cleared fda spec home use Jean Claude A Killian Work Phone: Start: 05-09-2020 Gluc bld gluc mntr d ev cleared fda spec home use Jean Claude A Killian Work Phone: Start: 05-09-2020 Gluc bld gluc mntr d ev cleared fda spec home use Jean Claude A Killian Work Phone: Start: 05-09-2020 Gluc bld gluc mntr d ev cleared fda spec home use Jean Claude A Killian Work Phone: Start: 05-09-2020 Gluc bld gluc mntr d ev cleared fda spec home use Jean Claude A Killian Work Phone: Start: 05-09-2020 Gluc bld gluc mntr d ev cleared fda spec home use Jean Claude A Killian Work Phone: Start: 05-09-2020 Ecg routine ecg w/le ast 12 lds w/i&r Jean Claude A Killian Work Phone: Start: 05-09-2020 Radiologic exam ches t single view Jean Claude A Killian Work Phone: Start: 05-09-2020 Gluc bld gluc mntr d ev cleared fda spec home use Jean Claude A Killian Work Phone: Start: 05-09-2020 Gluc bld gluc mntr d ev cleared fda spec home use Jean Claude A Killian Work Phone: Start: 05-09-2020 Assay of magnesium Jean Claude A Killian Work Phone: Start: 05-09-2020 Basic metabolic pane l calcium total Jean Claude A Killian Work Phone: Start: 05-09-2020 Blood count complete automated Jean Claude A Killian Work Phone: Start: 05-09-2020 End: 05-09-2020 Gluc bld gluc mntr dev cleared fda spec home use Jean Claude A Killian Work Phone: Start: 05-09-2020 End: 05-09-2020 Gluc bld gluc mntr dev cleared fda spec home use Jean Claude A Killian Work Phone: Start: 05-08-2020 Gluc bld gluc mntr d ev cleared fda spec home use Jean Claude A Killian Work Phone: Start: 05-08-2020 Basic metabolic pane l calcium total Bryce Ching Work Phone: Start: 05-08-2020 Blood count complete automated Bryce Ching Work Phone: Start: 05-08-2020 Prothrombin time Bryce Ching Work Phone: Start: 05-08-2020 End: 05-08-2020 Gluc bld gluc mntr dev cleared fda spec home use Jean Claude A Killian Work Phone: Start: 05-08-2020 End: 05-08-2020 Gluc bld gluc mntr dev cleared fda spec home use Jean Claude A Killian Work Phone: Start: 05-08-2020 EXTUBATION Ascencion Aden Work Phone: Start: 05-08-2020 End: 05-08-2020 Gluc bld gluc mntr dev cleared fda spec home use Jean Claude A Killian Work Phone: Start: 05-08-2020 End: 05-08-2020 Gluc bld gluc mntr dev cleared fda spec home use Jean Claude A Killian Work Phone: Start: 05-08-2020 Ecg routine ecg w/le ast 12 lds w/i&r Jean Claude A Killian Work Phone: Start: 05-08-2020 Radiologic exam ches t single view Jean Claude A Killian Work Phone: Start: 05-08-2020 End: 05-08-2020 Gluc bld gluc mntr dev cleared fda spec home use Jean Claude A Killian Work Phone: Start: 05-08-2020 OPERATIVE REPORT 3m Sca nning Start: 05-08-2020 PREPARE FRESH FROZEN PLASMA Unknown Provider Result Start: 05-08-2020 PREPARE PLATELETS Unkno wn Provider Result Start: 05-08-2020 Assay of magnesium Jean Claude A Killian Work Phone: Start: 05-08-2020 Assay of phosphorus inorganic Jean Claude A Killian Work Phone: Start: 05-08-2020 Basic metabolic pane l calcium total Jean Claude A Killian Work Phone: Start: 05-08-2020 Blood count complete automated Jean Claude A Killian Work Phone: Start: 05-08-2020 BLOOD GAS, ARTERIAL Latanya c A Killian Work Phone: Start: 05-08-2020 Calcium ionized Jean Claude A Killian Work Phone: Start: 05-08-2020 PROTIME/INR & PTT Jean Claude A Killian Work Phone: Start: 05-08-2020 Level iv surg pathol ogy gross&microscopic exam Jean Claude A Killian Work Phone: Start: 05-08-2020 US Heart Transesophageal Velasquez Gio [employer] Work Phone: Start: 05-08-2020 Gluc bld gluc mntr d ev cleared fda spec home use Jean Claude A Killian Work Phone: Start: 05-08-2020 Ecg routine ecg w/le ast 12 lds w/i&r Liz [facility] Work Phone: Start: 05-08-2020 Blood typing serologic abo Velasquez R [employer] Work Phone: Start: 05-01-2020 Radiologic exam ches t 2 views Liz [facility] Work Phone: Start: 05-01-2020 Urnls dip stick/tabl et rgnt auto w/o microscopy Liz N [facility] Work Phone: Start: 05-01-2020 Assay of magnesium Diego henry [facility]allero [facility] Work Phone: Start: 05-01-2020 Blood count complete auto&auto difrntl wbc Velasquez R [employer] Work Phone: Start: 05-01-2020 Blood typing serologic abo Liz [facility] Work Phone: Start: 05-01-2020 Comprehensive metabo lic panel Liz Vaughn Work Phone: Start: 05-01-2020 Hemoglobin glycosyla barbara a1c Liz Vaughn Work Phone: Start: 05-01-2020 Prothrombin time Vadim Vaughn Work Phone: Start: 05-01-2020 Thromboplastin time partial plasma/whole blood Liz Vaughn Work Phone: Start: 05-01-2020 Ecg routine ecg w/le ast 12 lds w/i&r Liz Vaughn Work Phone: Start: 04-29-2020 History of coronary artery bypass grafting History of coronary artery bypass surgery Dr. Rod Maravilla MD Comment on above: CABG x1- SVG to PDA of RCA 05/08/20 Start: 05-18-2017 End: 05-18-2017 Dietary management education, guidance, and counseling Anuel Rodriges MD Start: 05-05-2017 End: 05-05-2017 Dietary management education, guidance, and counseling Anuel Rodriges MD Start: 04-13-2017 End: 04-13-2017 Dietary management education, guidance, and counseling Anuel Rodriges MD Start: 04-13-2017 End: 04-18-2017 Follow up Appt 1 week Anuel Rodriges MD Start: 04-13-2017 End: 04-18-2017 Follow up Appt 1 week Anuel Rodriges MD Start: 04-08-2017 End: 04-13-2017 Follow up Appt 1 week Anuel Rodriges MD Start: 04-08-2017 End: 04-13-2017 Follow up Appt 1 week Anuel Rodriges MD Start: 03-31-2017 End: 04-06-2017 Follow up Appt 1 week Anuel Rodriges MD Start: 03-31-2017 End: 03-31-2018 OT-Hand Therapy Anuel Rodriges MD Start: 03-31-2017 End: 04-06-2017 Follow up Appt 1 week Anuel Rodriges MD Start: 03-31-2017 End: 03-31-2018 OT-Hand Therapy Anuel Rodriges MD Start: 03-22-2017 End: 04-06-2017 Follow Up Appt Other Anuel Rodriges MD Start: 03-22-2017 End: 04-06-2017 Follow Up Appt Other Anuel Rodriges MD Start: 01-29-2015 End: 01-29-2015 Dietary management education, guidance, and counseling Anuel Rodriges MD Start: 10-31-2014 End: 10-31-2014 Documentation of current medications Kelley Abbasi Work Phone: Start: 10-31-2014 End: 11-01-2014 Smoking cessation education Kelley Abbasi Work Phone: Start: 10-31-2014 End: 10-31-2014 Documentation of current medications Kelleykody Abbasi Work Phone: Start: 10-31-2014 End: 11-01-2014 Smoking cessation education Kelley Abbasi Work Phone: Coronary artery bypa ss graft MIKE RAI DO Discectomy of spine MIKE RAI DO Comment on above: L4 History of coronary artery bypass grafting S/P CABG x 2 Dr. Mike Solorzano Work Phone: History of coronary artery bypass grafting History of coronary artery bypass graft x 1 Dr. Mike Solorzano MD Work Phone: Incision AND drainage MARYBEL RAI DO Comment on above: left 4th finger Total knee replacement DEVAUGHN RAI DO Comment on above: right Plan of Treatment Date Care Activity Detail Author Start: 02-11-2026 Annual PCP Team Chronic Disease Visit Annual PCP Team Chronic Disease Visit [facility] Start: 12-05-2025 BP Controlled (<130/80) BP Controlled (<130/80) [facility] Start: 11-08-2025 Annual PCP Team Chronic Disease Visit Annual PCP Team Chronic Disease Visit [facility] Start: 08-13-2025 Annual PCP Team Chronic Disease Visit Annual PCP Team Chronic Disease Visit [facility] Start: 08-13-2025 BP Controlled (<130/80) BP Controlled (<130/80) [facility] Start: 08-13-2025 Covid-19 Vaccine () Covid-19 Vaccine () [facility] Comment on above: Postponed from 04/29/2024 (Declined at t his time) Start: 08-13-2025 Hepatitis B screening Urine Albumin:Creatinine Ratio [facility] Start: 08-13-2025 Hepatitis B surface antibody level LDL Cholesterol [facility] Start: 07-17-2025 End: 07-17-2025 Patient encounter procedure 07/17/2025 3:00 PM EST Office Visit [facility] [address] [place] [id number] Aaron Solorzano MD [address] [place] [address] medicare wellness [facility] Comment on above: medicare wellness Start: 07-13-2025 End: 10-12-2025 CBC panel - Blood by Automated count COMPLETE BLOOD COUNT Lab Routine Anemia of chronic disease Expected: 07/13/2025, Expires: 10/12/2025 [facility] Comment on above: Expected: 07/13/2025, Expires: Start: 07-13-2025 End: 10-12-2025 Comprehensive metabolic 2000 panel - Serum or Plasma COMPREHENSIVE METABOLIC PANEL Lab Routine Controlled type 2 diabetes mellitus with diabetic neuropathy, with long-term current use of insulin (HCC) Expected: 07/13/2025, Expires: 10/12/2025 [facility] Comment on above: Expected: 07/13/2025, Expires: Start: 07-13-2025 End: 10-12-2025 Hemoglobin A1c in Blood HEMOGLOBIN A1C Lab Routine Controlled type 2 diabetes mellitus with diabetic neuropathy, with long-term current use of insulin (HCC) Expected: 07/13/2025, Expires: 10/12/2025 [facility] Work Phone: Comment on above: Expected: 07/13/2025, Expires: Start: 07-13-2025 End: 10-12-2025 Lipid 1996 panel - Serum or Plasma LIPID PANEL, FASTING Lab Routine Mixed hyperlipidemia Expected: 07/13/2025, Expires: 10/12/2025 [facility] Comment on above: Expected: 07/13/2025, Expires: Start: 04-29-2025 Influenza vaccination [facility] Start: 04-15-2025 Admission procedure [facility] Start: 04-15-2025 Hospital admission, emergency, from emergency room, medical nature [facility] Start: 04-15-2025 End: 04-15-2025 [facility] Start: 04-15-2025 Bacteria identified in Blood by Culture Blood Culture [facility] Start: 04-15-2025 Bacteria identified in Urine by Culture Urine Culture [facility] Start: 02-25-2025 Influenza vaccination Influenza Vaccine (#1) [facility] Comment on above: Postponed from 04/29/2024 (Declined at t his time) Start: 02-11-2025 End: 02-11-2025 Patient encounter procedure 02/11/2025 3:00 PM EDT Office Visit Family Practice [address] [place], [place] [id number] Aaron Solorzano MD [address] [place], [place] [id number] six month follow up Family Practice Comment on above: six month follow up Start: 02-11-2025 Hemoglobin A1c measurement HbA1C [facility] Start: 12-19-2024 Annual PCP Team Chronic Disease Visit Annual PCP Team Chronic Disease Visit [facility] Start: 12-19-2024 Anxiety Screening Anxiety Screening [facility] Start: 12-19-2024 Depression Screening Depression Screening [facility] Start: 12-19-2024 Diabetic foot [facility] Start: 11-08-2024 End: 11-08-2024 Patient encounter procedure 11/08/2024 11:00 AM EDT Office Visit Family Practice [address] [place], [place] [id number] Aaron Solorzano MD [address] [place], [place] [id number] CPAP follow up and machine broke down [facility] Comment on above: CPAP follow up and machine broke down Start: 10-17-2024 Annual PCP Team Chronic Disease Visit Annual PCP Team Chronic Disease Visit [facility] Start: 08-29-2024 Advance Directive Discussion Advance Directive Discussion [facility] Start: 08-29-2024 Medicare Advantage Annual Wellness Visit Medicare Advantage Annual Wellness Visit [facility] Start: 08-13-2024 End: 08-13-2024 Patient encounter procedure 08/13/2024 2:00 PM EST Office Visit [facility] [address] [place], [place] [id number] Daxa Wing, ARIADNE.CLIENT SERVICES MANAGER [address] [place], [place] [address] Diabetes follow up [facility] Comment on above: Diabetes follow up Start: 08-09-2024 End: 11-08-2024 CBC panel - Blood by Automated count COMPLETE BLOOD COUNT Lab Routine Controlled type 2 diabetes mellitus with diabetic neuropathy, with long-term current use of insulin (HCC) Expected: 08/09/2024, Expires: 11/08/2024 [facility] Comment on above: Expected: 08/09/2024, Expires: Start: 08-09-2024 End: 11-08-2024 Comprehensive metabolic 2000 panel - Serum or Plasma COMPREHENSIVE METABOLIC PANEL Lab Routine Controlled type 2 diabetes mellitus with diabetic neuropathy, with long-term current use of insulin (HCC) Mixed hyperlipidemia Essential hypertension, benign Expected: 08/09/2024, Expires: 11/08/2024 [facility] Comment on above: Expected: 08/09/2024, Expires: Start: 08-09-2024 End: 11-08-2024 Hemoglobin A1c in Blood HEMOGLOBIN A1C Lab Routine Controlled type 2 diabetes mellitus with diabetic neuropathy, with long-term current use of insulin (HCC) Expected: 08/09/2024, Expires: 11/08/2024 [facility] Work Phone: Comment on above: Expected: 08/09/2024, Expires: Start: 08-09-2024 End: 11-08-2024 Lipid 1996 panel - Serum or Plasma LIPID PANEL BASIC Lab Routine Mixed hyperlipidemia Expected: 08/09/2024, Expires: 11/08/2024 [facility] Comment on above: Expected: 08/09/2024, Expires: Start: 08-09-2024 End: 11-08-2024 Microalbumin/Creatinine [Mass Ratio] in Urine ALBUMIN/CREATININE RATIO, URINE Lab Routine Controlled type 2 diabetes mellitus with diabetic neuropathy, with long-term current use of insulin (HCC) Expected: 08/09/2024, Expires: 11/08/2024 [facility] Comment on above: Expected: 08/09/2024, Expires: Start: 07-05-2024 Hepatitis B surface antibody level LDL Cholesterol [facility] Start: 06-16-2024 Annual PCP Team Chronic Disease Visit Annual PCP Team Chronic Disease Visit [facility] Start: 06-16-2024 BP Controlled (<130/80) BP Controlled (<130/80) [facility] in Start: 06-16-2024 RSV Vaccine (1 - 1-dose 60+ series) RSV Vaccine (1 - 1-dose 60+ series) [facility] Comment on above: Postponed from 2008 (Declined at t his time) Start: 06-16-2024 RSV Vaccine (1 - 1-dose 75+ series) RSV Vaccine (1 - 1-dose 75+ series) [facility] Comment on above: Postponed from 2023 (Declined at t his time) Start: 06-16-2024 Shingrix Vaccine (1 of 2) Shingrix Vaccine (1 of 2) [facility] Comment on above: Postponed from 1998 (Declined at t his time) Start: 06-16-2024 Urine microalbumin profile DTaP,Tdap,Td Vaccine (2 - Td or Tdap) [facility] Comment on above: Postponed from 04/27/2017 (Declined at t his time) Start: 04-29-2024 Covid-19 Vaccine ( season) Covid-19 Vaccine ( season) [facility] Start: 04-29-2024 Covid-19 Vaccine () Covid-19 Vaccine () [facility] Start: 04-29-2024 Influenza vaccination [facility] Start: 03-22-2024 BP CONTROLLED (<130/80) BP CONTROLLED (<130/80) [facility] Start: 02-26-2024 [facility] Comment on above: Postponed from 04/29/2023 (Declined at t his time) Start: 02-18-2024 ANNUAL PCP TEAM CHRONIC DISEASE VISIT ANNUAL PCP TEAM CHRONIC DISEASE VISIT [facility] Start: 02-18-2024 BP CONTROLLED (<130/80) BP CONTROLLED (<130/80) [facility] Start: 01-16-2024 End: 01-16-2024 Patient encounter procedure 01/16/2024 1:40 PM EDT Office Visit Family Practice [address] [place] [address] [place] [address] Aaron Solorzano MD [address] [place] [address] [place] [id number] 3m follow up Family Practice Comment on above: 3m follow up Start: 01-08-2024 ANNUAL PCP TEAM CHRONIC DISEASE VISIT ANNUAL PCP TEAM CHRONIC DISEASE VISIT [facility] Start: 01-03-2024 Hemoglobin A1c measurement HbA1C [facility] Start: 01-03-2024 Hemoglobin A1c/Hemoglobin.total in Blood HbA1C [facility] Start: 10-17-2023 Covid-19 Vaccine ( season) Covid-19 Vaccine () [facility] Start: 09-09-2023 Hepatitis B screening URINE ALBUMIN:CREATININE RATIO [facility] Start: 09-09-2023 Hepatitis B surface antibody level LDL CHOLESTEROL [facility] Start: 08-29-2023 Advance Directive Discussion Advance Directive Discussion [facility] Start: 08-29-2023 Behavioral Health Screening Behavioral Health Screening [facility] Start: 08-29-2023 Depression Assessment Depression Assessment [facility] Start: 12-28-2023 3 comp foot exam completed DIABETIC FOOT EXAM [facility] Start: 08-25-2023 ANNUAL PCP TEAM CHRONIC DISEASE VISIT ANNUAL PCP TEAM CHRONIC DISEASE VISIT [facility] Start: 08-25-2023 BP CONTROLLED (<130/80) BP CONTROLLED (<130/80) [facility] in Start: 08-25-2023 Diabetic foot examination Diabetic Foot Exam [facility] Start: 2023 RSV Vaccine (1 - 1-dose 75+ series) RSV Vaccine (1 - 1-dose 75+ series) [facility] Start: 05-31-2023 COLORECTAL CANCER SCREENING COLORECTAL CANCER SCREENING [facility] Start: 05-31-2023 FECAL OCCULT BLOOD FECAL OCCULT BLOOD [facility] Start: 05-31-2023 Screening for malignant neoplasm of colon [facility] Start: 04-29-2023 Covid-19 Vaccine () Covid-19 Vaccine () [facility] Start: 04-29-2023 Influenza vaccination [facility] Start: 03-09-2023 Hemoglobin A1c/Hemoglobin.total in Blood HBA1C [facility] Start: 02-25-2023 Influenza vaccination INFLUENZA (#1) [facility] Comment on above: Postponed from 04/29/2022 (Declined at t his time) Start: 12-24-2022 COVID-19 VACCINE (5 - Pfizer series) COVID-19 VACCINE (5 - Pfizer series) [facility] Start: 12-12-2022 End: 02-11-2023 Renal function 2000 panel - Serum or Plasma RENAL FUNCTION PANEL Lab Routine Sodium blood decreased Expected: 12/12/2022, Expires: 02/11/2023 [facility] Work Phone: Comment on above: Expected: 12/12/2022, Expires: 3 Start: 10-26-2022 BP CONTROLLED (<130/80) BP CONTROLLED (<130/80) [facility] in Start: 09-21-2022 Hepatitis B screening URINE ALBUMIN:CREATININE RATIO [facility] Start: 09-08-2022 3 comp foot exam completed DIABETIC FOOT EXAM [facility] Start: 09-08-2022 ANNUAL PCP TEAM CHRONIC DISEASE VISIT ANNUAL PCP TEAM CHRONIC DISEASE VISIT [facility] Start: 08-29-2022 ADVANCE DIRECTIVE DISCUSSION ADVANCE DIRECTIVE DISCUSSION [facility] Start: 08-29-2022 DEPRESSION ASSESSMENT DEPRESSION ASSESSMENT [facility] Start: 08-25-2022 End: 10-25-2022 Comprehensive metabolic 2000 panel - Serum or Plasma COMP METABOLIC PANEL Lab Routine Controlled type 2 diabetes mellitus with diabetic neuropathy, with long-term current use of insulin (HCC) Expected: 08/25/2022, Expires: 10/25/2022 [facility] Work Phone: Comment on above: Expected: 08/25/2022, Expires: 3 Start: 08-25-2022 End: 10-25-2022 Hemoglobin A1c in Blood HGB A1C Lab Routine Controlled type 2 diabetes mellitus with diabetic neuropathy, with long-term current use of insulin (HCC) Expected: 08/25/2022, Expires: 10/25/2022 [facility] Work Phone: Comment on above: Expected: 08/25/2022, Expires: 3 Start: 08-25-2022 End: 10-25-2022 Lipid 1996 panel - Serum or Plasma LIPID PANEL BASIC Lab Routine Mixed hyperlipidemia Expected: 08/25/2022, Expires: 10/25/2022 [facility] Work Phone: Comment on above: Expected: 08/25/2022, Expires: 3 Start: 08-25-2022 End: 10-25-2022 Microalbumin [Mass/volume] in Urine ALBUMIN RANDOM URINE Lab Routine Controlled type 2 diabetes mellitus with diabetic neuropathy, with long-term current use of insulin (HCC) Expected: 08/25/2022, Expires: 10/25/2022 [facility] Work Phone: Comment on above: Expected: 08/25/2022, Expires: 3 Start: 04-29-2022 Influenza vaccination [facility] Start: 04-10-2022 COLORECTAL CANCER SCREENING COLORECTAL CANCER SCREENING [facility] Start: 04-10-2022 FECAL OCCULT BLOOD FECAL OCCULT BLOOD [facility] Start: 04-01-2022 Adult depression screening assessment DEPRESSION SCREENING [facility] Start: 04-01-2022 Hepatitis B surface antibody level LDL CHOLESTEROL [facility] Start: 03-21-2022 Hemoglobin A1c/Hemoglobin.total in Blood HBA1C [facility] Start: 03-16-2022 [facility] Work Phone: Start: 12-31-2021 Glaucoma screening Dilated Retinal Exam [facility] Start: 12-31-2021 Hepatitis C antibody, confirmatory test DILATED RETINAL EXAM [facility] Start: 11-07-2021 COVID-19 VACCINE (4 - Booster for Pfizer series) COVID-19 VACCINE (4 - Booster for Pfizer series) [facility] Start: 10-10-2021 COVID-19 VACCINE (4 - Booster for Pfizer series) COVID-19 VACCINE (4 - Booster for Pfizer series) [facility] Start: 10-02-2021 COVID-19 VACCINE (4 - Booster for Pfizer series) COVID-19 VACCINE (4 - Booster for Pfizer series) [facility] Start: 09-04-2021 COVID-19 VACCINE (4 - Booster for Pfizer series) COVID-19 VACCINE (4 - Booster for Pfizer series) [facility] Start: 08-29-2021 ADVANCE DIRECTIVE DISCUSSION ADVANCE DIRECTIVE DISCUSSION [facility] Start: 08-29-2021 DEPRESSION ASSESSMENT DEPRESSION ASSESSMENT [facility] Start: 06-02-2021 Creatinine measurement Creatinine monitoring [facility] Start: 06-02-2021 Potassium monitoring [facility] Start: 05-31-2021 HbA1c (Bld) [Mass fraction] A1C test (Diabetic or Prediabetic) [facility] [place] Start: 05-30-2021 Lipid panel Lipid screen [facility] [place] Start: 05-30-2021 Statin Therapy Statin Therapy [facility] [place] [place] Start: 05-14-2021 Creatinine measurement Creatinine monitoring [employer] Start: 05-14-2021 Potassium monitoring [facility] Start: 05-01-2021 HbA1c (Bld) [Mass fraction] A1C test (Diabetic or Prediabetic) [facility] [place] Start: 04-29-2021 Influenza vaccination INFLUENZA (#1) [facility] Start: 04-15-2021 Creatinine measurement Creatinine monitoring [employer] [place] Start: 04-15-2021 Potassium monitoring Potassium monitoring [facility] [place] Start: 07-09-2020 End: 07-09-2020 Virtual Visit 07/09/2020 Virtual Visit Cardiothoracic Surgery Velasquez Savage, CONSOLE ATTENDANT - CLIENT SERVICES MANAGER [address] [place] [address] [phone] [facility] Start: 06-19-2020 End: 06-19-2020 Virtual Visit 06/19/2020 Virtual Visit Cardiothoracic Surgery Migue Gregorio, [facility] - SALES REPRESENTATIVE ADVERTISING [address] [address] [phone] [facility] Start: 06-10-2020 End: 06-10-2020 Office Visit 06/10/2020 Office Visit Cardiothoracic Surgery Velasquez Savage, CONSOLE ATTENDANT - CLIENT SERVICES MANAGER [address] [place] [address] [phone] [facility] Start: 05-29-2020 End: 05-29-2020 Virtual Visit 05/29/2020 Virtual Visit Cardiothoracic Surgery Migue Gregorio, [facility] - SALES REPRESENTATIVE ADVERTISING [address] [address] [phone] [facility] Start: 05-19-2020 End: 05-19-2020 Virtual Visit 05/19/2020 Virtual Visit Cardiothoracic Surgery Velasquez Savage, CONSOLE ATTENDANT - CLIENT SERVICES MANAGER [address] [place] [address] [phone] [facility] Start: 05-08-2020 End: 05-08-2020 Appointment 05/08/2020 Appointment General Surgery Jean Claude Killian MD [address] [facility], [address] [place] [address] [phone] [facility] General Surgery Start: 04-29-2020 Influenza vaccination Flu vaccine (#1) [place], [place] Start: 04-22-2020 Annual Wellness Visit (AWV) Annual Wellness Visit (AWV) [place], [place] Start: 11-30-2019 BP CONTROLLED (<130/80) BP CONTROLLED (<130/80) Brian montero Start: 05-18-2017 End: 06-08-2017 Follow Up Appt Other Follow Up Appt Other [facility] Work Phone: Start: 05-18-2017 End: 05-18-2017 Appointment Appointment [facility] Work Phone: Start: 05-05-2017 End: 05-05-2017 Appointment Appointment [facility] Work Phone: Start: 05-05-2017 End: 06-07-2017 Follow Up Appt 2 weeks Follow Up Appt 2 weeks [facility] Work Phone: Start: 04-27-2017 DTaP/Tdap/Td vaccine (2 - Td) DTaP/Tdap/Td vaccine (2 - Td) [place], [place] Start: 04-27-2017 Urine microalbumin profile [facility] Start: 04-21-2017 End: 04-21-2017 Appointment Appointment [facility] Work Phone: Start: 04-21-2017 End: 06-07-2017 Follow Up Appt 2 weeks Follow Up Appt 2 weeks [facility] Work Phone: Start: 04-13-2017 End: 04-13-2017 Appointment Appointment [facility] Work Phone: Start: 04-13-2017 End: 04-18-2017 Follow up Appt 1 week Follow up Appt 1 week [facility] Work Phone: Start: 04-13-2017 End: 04-18-2017 Follow up Appt 1 week Follow up Appt 1 week [facility] Work Phone: Start: 04-08-2017 End: 04-08-2017 Appointment Appointment [facility] Work Phone: Start: 04-08-2017 End: 04-13-2017 Follow up Appt 1 week Follow up Appt 1 week [facility] Work Phone: Start: 04-08-2017 End: 04-13-2017 Follow up Appt 1 week Follow up Appt 1 week [facility] Work Phone: Start: 03-31-2017 End: 04-06-2017 Follow up Appt 1 week Follow up Appt 1 week [facility] Work Phone: Start: 03-31-2017 End: 04-04-2017 OT-Hand Therapy [facility], [address] [place] [address], [id number] [facility] Work Phone: Start: 03-31-2017 End: 04-06-2017 Follow up Appt 1 week Follow up Appt 1 week [facility] Work Phone: Start: 03-31-2017 End: 04-04-2017 OT-Hand Therapy [facility], [address] [place] [address], [id number] [facility] Work Phone: Start: 03-23-2017 End: 03-23-2017 Appointment Appointment [facility] Work Phone: Start: 03-22-2017 End: 03-22-2017 Appointment Appointment [facility] Work Phone: Start: 03-22-2017 End: 04-06-2017 Follow Up Appt Other Follow Up Appt Other [facility] Work Phone: Start: 03-22-2017 End: 04-06-2017 Follow Up Appt Other Follow Up Appt Other [facility] Work Phone: Start: 01-29-2015 End: 01-29-2015 Radiologic exam knee complete 4/more views X-Ray, Knee [facility] Work Phone: Start: 01-29-2015 End: 01-29-2015 X-ray exam, knee, 4 or more X-Ray, Knee [facility] Work Phone: Start: 09-06-2014 End: 09-06-2014 Radiologic exam knee complete 4/more views X-Ray, Knee [facility] Work Phone: Start: 09-06-2014 End: 09-06-2014 X-ray exam, knee, 4 or more X-Ray, Knee [facility] Work Phone: Start: 2008 Hepatitis B Vaccine (1 of 3 - Risk 3-dose series) Hepatitis B Vaccine (1 of 3 - Risk 3-dose series) [facility] Start: 1998 Screening for malignant neoplasm of colon Colon cancer screen colonoscopy [place], [place] Start: 1998 Shingles Vaccine (1 of 2) Shingles Vaccine (1 of 2) [facility] [place] [place] Start: 1998 SHINGRIX VACCINE (1 of 2) SHINGRIX VACCINE (1 of 2) [facility] Start: 1993 COLOGUARD (FIT-DNA) COLOGUARD (FIT-DNA) [facility] Start: 1993 Colonoscopy COLONOSCOPY [facility] Start: [address] COLONOGRAPHY [facility] Start: 1993 Screening for malignant neoplasm of colon [facility] Start: 1993 SIGMOIDOSCOPY SIGMOIDOSCOPY [facility] Start: 1967 SHINGRIX VACCINE (1 of 2) SHINGRIX VACCINE (1 of 2) [facility] Start: 1966 Diabetic microalbuminuria test Diabetic microalbuminuria test [place], [place] Start: 1958 Diabetic foot examination Diabetic foot exam [place], [place] Start: 1958 Diabetic retinal exam Diabetic retinal exam [place], [place] Start: 1958 Lipid panel Lipid screen [place], [place] Start: 1948 Abdominal aortic aneurysm screening AAA screen [place], [place] Start: 1948 Hepatitis C screening Hepatitis C screen [place], [place] Start: 1948 TSH Qn TSH testing [place], [place] Basic metabolic 2000 panel Basic Metabolic Panel Lab Routine Daily until discontinued starting 05/08/2020, 6 completed [place] Comment on above: Daily until discontinued starting 2019, 6 completed Calcium, Ionized Calcium, Ionize d Lab Routine As Needed until discontinued starting 05/08/2020 [place] Comment on above: As Needed until discontinued starting CBC CBC Lab Routine Daily until discontinued starting 05/08/2020, 5 completed [place] Comment on above: Daily until discontinued starting 2019, 5 completed CBC Auto Differential CBC Auto D ifferential Lab Routine Daily until discontinued starting 05/31/2020, 3 completed [facility] ID Comment on above: Daily until discontinued starting 2019, 3 completed CBC panel - Blood by Automated count COMPLETE BLOOD COUNT Lab Routine Controlled type 2 diabetes mellitus with diabetic neuropathy, with long-term current use of insulin (HCC) Ordered: 08/13/2024 [facility] Work Phone: Comment on above: Ordered: 08/13/2024 Comprehensive metabo lic 2000 panel - Serum or Plasma COMPREHENSIVE METABOLIC PANEL Lab Routine Essential hypertension, benign Mixed hyperlipidemia Ordered: 08/13/2024 [facility] Comment on above: Ordered: 08/13/2024 CPAP [facility] JULIA Santana Comment on above: As Needed until discontinued starting Every 4hr until disc ontinued starting 05/30/2020 End: 05-30-2020 CRP [Mass/Vol] C-REACTIVE PROTEIN Lab Routine One Time for 1 Occurrences starting 05/30/2020 until 05/30/2020 [facility] ID Comment on above: One Time for 1 Occurrences starting 09/2019 until 05/30/2020 CRP [Mass/Vol] C-REACTIVE PROTE IN Lab Routine 05/31/2020 5:55 AM EDT [facility] ID Culture, Blood 2 Culture, Blood 2 Microbiology STAT 05/30/2020 10:15 AM EDT [facility] ID EKG 12 lead EKG 12 lead ECG Routine Pre-op testing 05/01/2020 11:56 AM EDT [facility] ID End: 05-30-2020 HbA1c (Bld) [Mass fraction] Hemoglobin A1c Lab Routine One Time for 1 Occurrences starting 05/30/2020 until 05/30/2020 [facility] ID Comment on above: One Time for 1 Occurrences starting 09/2019 until 05/30/2020 HbA1c (Bld) [Mass fraction] Hemoglobin A1c Lab Routine 05/31/2020 5:55 AM EDT [facility] ID Hemoglobin and Hematocrit, Blood, Post Transfusion [place] Comment on above: Post Transfusion Post Transfusion Post T ransfustion for 1 Occurrences starting 05/11/2020 Post Transfusion Pos t Transfusion Post Transfustion for 1 Occurrences starting 05/12/2020 Hemoglobin.gastroint estin al.lower [Presence] in Stool by Immunoassay FECAL OCCULT BLOOD TEST Lab Routine Screening for colon cancer Ordered: 05/17/2022 [facility] Work Phone: Comment on above: Ordered: 05/17/2022 Lipid 1996 panel - S miles or Plasma LIPID PANEL BASIC Lab Routine Mixed hyperlipidemia Ordered: 08/13/2024 [facility] Comment on above: Ordered: 08/13/2024 Magnesium [Mass/Vol] Magnesium L ab Routine Daily until discontinued starting 05/08/2020, 6 completed [employer] MNJULIA Comment on above: Daily until discontinued starting 2019, 6 completed End: 06-01-2020 Magnesium [Mass/Vol] Magnesium Lab Add-On One Time for 1 Occurrences starting 06/01/2020 until 06/01/2020 [facility] Comment on above: One Time for 1 Occurrences starting 11/2019 until 06/01/2020 Microalbumin/Creatin ine [Mass Ratio] in Urine ALBUMIN/CREATININE RATIO, URINE Lab Routine Controlled type 2 diabetes mellitus with diabetic neuropathy, with long-term current use of insulin (HCC) Ordered: 08/13/2024 [facility] Comment on above: Ordered: 08/13/2024 Oxygen therapy [[facility] Data Set] Initiate Oxygen Therapy Protocol Respiratory Care Routine Daily until discontinued starting 05/30/2020 [employer] [facility] Comment on above: Daily until discontinued starting 2019 Patient Education [facility] Surgery Work Phone: Patient referral [facility] Work Phone: End: 05-10-2020 POCT Glucose POCT Glucose Point of Care Testing Timed Every Hour (Lab) for 2 Days starting 05/08/2020 until 05/10/2020 [facility] Comment on above: Every Hour (Lab) for 2 Days starting 05/2020 until 05/10/2020 POCT Glucose [facility] Comment on above: 4X Daily (AC & HS) until discontinued st arting 05/09/2020 As Needed until disc ontinued starting 05/30/2020 4X Daily (AC & HS) u ntil discontinued starting 05/31/2020 Protime-INR Protime-INR Lab Routine Daily until discontinued starting 05/11/2020, 4 completed [facility] JULIA Comment on above: Daily until discontinued starting 2019, 4 completed End: 05-30-2020 SEDIMENTATION RATE SEDIMENTATION RATE Lab Routine One Time for 1 Occurrences starting 05/30/2020 until 05/30/2020 [facility] JULIA Comment on above: One Time for 1 Occurrences starting 09/2019 until 05/30/2020 SEDIMENTATION RATE SEDIMENTATION RATE Lab Routine 05/31/2020 5:55 AM EDT [facility] JULIA Spirometry panel Incentive rima metry RT Respiratory Care Routine Every 2hr while awake until discontinued starting 05/31/2020 [facility] JULIA Comment on above: Every 2hr while awake until discontinued starting 05/31/2020 Urine culture [facility] XR CHEST PORTABLE XR CHEST CHE BLE Imaging Routine Daily until discontinued starting 05/09/2020, 6 completed [facility] JULIA Comment on above: Daily until discontinued starting 2019, 6 completed [facility] Immunizations Immunization Date Immunization Notes Care Provider Ganga beyer 06-16-2023 COVID-19 vaccine, ag e 12+ yr, 2022- season (PFIZER-BIONTECH) Aaron Solorzano MD Work Phone: [facility] 08-25-2022 COVID-19 booster vaccine, age 12+ yr, bivalent (PFIZER-BIONTECH) Daxa Moody APRN.CLIENT SERVICES MANAGER Work Phone: [facility] 07-10-2021 SARS-CoV-2 mRNA (tozinameran) vaccine MIKE RAI DO [facility] 11-25-2020 SARS-CoV-2 mRNA (tozinameran) vaccine MIKE RAI DO [facility] 11-04-2020 SARS-CoV-2 mRNA (tozinameran) vaccine MIKE CECELIA DO [facility] Comment on above: Result Comment: 2021: [id number] 06-13-2018 influenza virus vacc ine, unspecified formulation Aaron Solorzano MD Work Phone: [facility] 06-18-2017 pneumococcal conjuga te vaccine, 13 valent MIKE RAI DO [facility] 09-21-2013 pneumococcal polysaccharide vaccine, 23 valent Aaron Solorzano MD Work Phone: [facility] 04-27-2007 tetanus toxoid, redu debi diphtheria toxoid, and acellular pertussis vaccine, adsorbed Aaron Solorzano MD Work Phone: [facility] Work Phone: 06-30-2006 influenza virus vacc ine, whole virus Aaron Solorzano MD Work Phone: [facility] Work Phone: 06-30-2006 pneumococcal polysaccharide vaccine, 23 valent Aaron Solorzano MD Work Phone: [facility] Work Phone: Payers Date Payer Category Payer Medicare (Managed Care) MMO [employer] O [id number] 2024 Medicare [id number] 2024 Self-pay [id number] 2019 Private Health Insurance MMO MEDICARE SUPPLEMENT [id number] 2019 Unknown MMO MMO MEDICARE SUPPLEMENT [id number] 2019-Present [phone] [address] [place] [address] Indemnity [id number] 2019 Unknown [id number] 2016 Unknown [id number] 2011 Medicare MEDICARE MEDICAR E A AND B [id number] 2011-Present [phone] [place] [address] Medicare [id number] 2011 Medicare [id number] 2011 Medicare [id number] 2002 Unknown [id number] Medicare [id number] Unknown [id number] Unknown [id number] Unknown [id number] Unknown [id number] Unknown [id number] Unknown [id number] Unknown [id number] Unknown [id number] Unknown [id number] Social History Date Type Detail Facility Start: 05-09-2020 End: 04-15-2025 Tobacco smoking status NHIS Former smoker [place], [place] End: 09-12-1994 History of tobacco use Current smoker [place] Start: 05-09-2020 End: 01-07-2023 Cigarettes smoked current (pack per day) - Reported [facility] Work Phone: Start: 05-01-2020 End: 05-09-2020 Tobacco use and exposure Former user [place] History of tobacco use Snuff User [place] Start: 05-01-2020 End: 05-09-2020 Alcohol intake Lifetime non-drinker (finding) [place] Start: 03-26-2020 History SDOH Alcohol Frequency 1 [place], [place] Start: 1950 Sex Assigned At Not on file [place] Start: 09-26-2021 End: 10-26-2021 Exposure to SARS-CoV-2 (event) Not sure [place], [place] Start: 1950 Sex Assigned At Male A [facility] Start: 10-26-2021 End: 12-05-2024 Alcohol intake Current non-drinker of alcohol (finding) [facility] Start: 08-19-2011 End: 08-25-2022 Tobacco Comment No one in household smokes [facility] Start: 03-16-2022 End: 02-05-2023 Tobacco smoking status NHIS Unknown if ever smoked [facility] Start: 07-30-2014 None [facility] Start: 07-30-2014 Spouse/ Signif icant Other [facility] Start: 01-11-2021 Non-smoker [facility] End: 09-12-1994 History of tobacco use Cigarette Smoker [facility] Start: 08-19-2011 End: 05-19-2024 Tobacco use and exposure Smokeless tobacco non-user [facility] Start: 01-07-2023 End: 03-22-2023 Tobacco use panel [facility] Work Phone: Adult Depression Screening Assessment 0 [facility] Work Phone: Start: 12-17-2024 Sex Male (finding) [facility] Medical Equipment Procedure Code Equipment Code Equipment Original Text Equipment Identifier Dates INSULIN SYRINGE-NEEDLE U-100 [id number], [id number], [id number] Start: 01-11-2014 End: 08-02-2024 Comment on above: Test blood sugar(s) 4 times daily. Insulin: Yes Use as directed once daily with insulin DX: E11.65 DM: yes Insulin: yes Test blood sugar(s) 4 times daily. Dx: Type 2 DM - Controlled E11.9 Insulin: Yes Test blood sugar(s) 3 times daily. Insulin: Yes Accu-chek Lois Meter with multiclix lancet device use as directed [id number] Start: 09-03-2013 Comment on above: Accu-chek Lois Mete r with multiclix lancet device use as directed Functional Status Date Assessment Result Facility 03-13-2015 Are you deaf, or do you have serious difficulty hearing Yes 03/13/2015 10:18 AM Rosalio DiorRn)(Hist), RN Yes [facility] 03-13-2015 Are you blind, or do you have serious difficulty seeing, even when wearing glasses No 03/13/2015 10:18 AM Rosalio DiorRn)(Hist), RN No [facility] 03-13-2015 Do you have serious difficulty walking or climbing stairs Yes 03/13/2015 10:18 AM Rosalio DiorRn)(Hist), RN Yes [facility] 03-13-2015 Do you have difficul ty dressing or bathing No 03/13/2015 10:18 AM Roaslio DiorRn)(Hist), RN No [facility] 03-13-2015 Because of a physica l, mental, or emotional condition, do you have difficulty doing errands alone such as visiting a physician's office or shopping No 03/13/2015 10:18 AM Rosalio DiorRn)(Hist), RN No [facility] Mental Status Date Assessment Result Facility 04-15-2025 Cognitive function Voice/Name [facility] Work Phone: 03-16-2022 Cognitive function Voice/Name [facility] Work Phone: 03-13-2015 Because of a physica l, mental, or emotional condition, do you have serious difficulty concentrating, remembering, or making decisions No 03/13/2015 10:18 AM Rosalio Dior)(Hist), RN No [facility] Clinical Notes 08-13-2008 to 04-15-2025 Note Date & Type Note Facility 04-15-2025 Radiology Diagnostic study note [facility] Imaging Services [address] [place], [place] [id number] CT Chest, Abd, Pel w/Contrast MR#: [id number] Acct: [id number] Name: ASCENCION WEIR Rep #: [id number] : 1950 M 74 From: Cm Judge MD PCP: Dr. Mike Solorzano MD Status: REG ER Study:CT Chest, Abd, Pel w/Contrast Date of E xam: 04/15/25 Exam# [id number] Ordering Dr: Clive Diaz MD PROCEDURE: CT CHEST, ABD, PEL W/CONTRAST 04/15/2025 REASON FOR EXAM: FEVER 104, NO SOURCE TECHNIQUE: Chest, abdomen and pelvis CT with intravenous contrast. Coronal and Sagittal reconstruction series were provided. One or more dose reduction techniques were used (e.g., Automated exposure control, adjustment of the mA and/or kV according to patient size, use of iterative reconstruction technique. 90 cc of Isovue 370 utilized RADIATION DOSE SUMMARY: CTDlvol: 53 mGy DLP: 1966 mGycm COMPARISON: 05/2021 FINDINGS: Inspection of the lung parenchyma demonstrates no consolidation. No edema. No infiltrate. Minimal tree-in-bud nodularity at the right lung base may be inflammatory. Please correlate clinically. Normal axilla. Normal chest wall. No thoracic aneurysm. Moderate coronary artery calcification. No mediastinal mass or pericardial effusion. Spinal stimulator leads are in place. No liver masses. Normal spleen. Normal pancreas. No hydronephrosis. Left renal cyst is present. Pancreas is unremarkable. There is no bowel obstruction. There is a fat containing umbilical hernia. There is no free air, free fluid or abscess. There is a Guzman catheter in the bladder. CT/CT Chest, Abd, Pel w/Contrast IMPRESSION: Minimal inflammatory change in the right lower lobe. No acute abnormality. Incidental findings as above Reading Location: [facility] CC: Dr. Mike Solorzano MD; Dr. Debora Diaz MD ~ Hotel Director: Signed [facility] 04-15-2025 Radiology Diagnostic study note [facility] Imaging Services [address] [place] [id number] Chest 1 View (Portable) MR#: [id number] Acct: [id number] Name: ASCENCION WEIR Rep #: [id number] : 1950 M 74 From: Noah Louis MD PCP: Dr. Mike Solorzano MD Status: REG ER Study:Chest 1 View (Portable) Date of Exam: 04/15/25 Exam# [id number] Ordering Dr: Kadi Boo MD PROCEDURE: CHEST 1 VIEW (PORTABLE) 04/15/2025 REASON FOR EXAM: TACHYPNEA TECHNIQUE: Frontal view of the chest. COMPARISON: 03/16/2022 chest x-ray FINDINGS: Hardware: Sternotomy wires are present. Heart: The heart size is normal. Lungs: The lungs are clear. Bones: The bones are unremarkable. RAD/Chest 1 View (Portable) IMPRESSION: No Acute Findings. Reading Location: [facility] CC: Dr. Mike Solorzano MD; Dr. Omer Boo MD ~ Hotel Director: Signed [facility] 04-15-2025 Discharge summary [facility] 04-15-2025 Discharge summary Note Date/Time April 15, 2025 6:35pm [facility] Medical Records Department [address] [place] [id number] Emergency Department Summary 04/15/25 MR#: [id number] Acct: [id number] Name: ASCENCION WEIR Rep #:[id number] : 1950 74 From: Omer Boo MD PCP: Dr. Mike Solorzano MD Status:REG ER Location: ED HPI History of Present Illness Chief Complaint: Palpitations Detail of Chief Complaint: Had not felt well for the past 2 days with increased weakness Informant: patient, EMS and SNF Onset/Context/Timing Onset: Days (Symptoms for 2 days per patient) Context: Sudden Onset Timing: Continuous Quality: Weakness, not feeling well, cough, urinary symptoms Location: Multiple Current Severity: Moderate Maximum Severity: Moderate Worsened by: Nothing, patient is not reliable since he is encephalopathic Relieved by: Nothing Associated Symptoms Associated Symptoms: Patient was unaware they had a temperature of 103.2. Narrative Narrative: Patient is a 74-year-old male. He has history of coronary artery disease statuspost bypass surgery, carotid artery disease, pericardial effusion, postoperativeatrial fibrillation, hyperlipidemia, asthmatic bronchitis, obstructive sleep apnea, type 2 diabetes, essential hypertension who presents from nursing facility because of not feeling well and weakness. Patient was unaware that he had a temperature 103.2. His only complaints on review of system is intermittent headache, cough that is nonproductive and frequency. Prior similar symptoms: No Recent Illness/[facility]: [facility] Medical History Right carotid bruit History of tenosynovitis Former smoker H/O methicillin resistant Staphylococcus aureus infection Arthritis Swelling of joint of left hand Hearing problem Cataracts, bilateral Back problem Arthritis HLD (hyperlipidemia) Hyponatremia Near syncope Lightheaded Chest wall pain Postoperative atrial fibrillation Atherosclerotic heart disease of [place] coronary artery without angina pectoris Pericardial effusion Fever Chest pain Multi-vessel coronary artery stenosis Dyspnea on exertion Abnormal echocardiogram Nonrheumatic aortic (valve) stenosis Intractable back pain Benign prostatic hypertrophy Physical debility Pain Asthmatic bronchitis with exacerbation Obstructive sleep apnea syndrome Obesity Type II diabetes mellitus Benign essential hypertension Home Medications ?Medication ?Instructions ?Recorded ?Last Taken ?Type aspirin 81 mg chewable tablet 81 mg PO DAILY heart hea lth 11/21/16 03/18/20 History metformin 500 mg tablet 1,000 mg PO BIDCM diabetes 0 11/21/16 03/17/20 History tamsulosin 0.4 mg capsule 0.4 mg PO QHS BPH 11/21/16 0 01/01/18 History gabapentin 400 mg capsule 400 mg PO TID 02/28/20 Unkno wn History hydroxychloroquine 200 mg tablet 200 mg PO DAILY 02/27 Unknown History tramadol 50 mg tablet 50 mg PO Q6H PRN PRN Pain Or Fever 05/29/20 Unknown History multivitamin 1 tab PO DAILY 06/09/20 Unkn own History celecoxib 200 mg capsule (Celebrex) 200 mg PO BID 05/31 Unknown History atorvastatin 20 mg tablet 20 mg PO QHS 12/22/20 Unknow n History insulin detemir U-100 100 unit/mL 10 unit subcut QHS P RN 05/31/24 Unknown History (3 mL) subcutaneous pen (Levemir FlexTouch U-100 Insulin) losartan 25 mg tablet 25 mg PO QDAY #90 tabs 05/31 Unknown Rx metoprolol succinate 50 mg 50 mg PO QDAY 05/31/24 Unkn own History tablet,extended release 24 hr metoprolol succinate 100 mg 50 mg PO DAILY 04/15/25 Un known History tablet,extended release 24 hr Allergy/AdvReac Type Severity Reaction Status Date / Time No Known Allergies Allergy Verified 04/15/25 14:20 Family History Father Myocardial infarction, Onset Age: 73 Mother Myocardial infarction, Onset Age: 68 Other Arthritis Asthma Diabetes High cholesterol Hypertension Surgical History History of aortic valve replacement with bioprosthetic valve (~05/08/20) History of coronary artery bypass surgery (~05/08/20) History of left heart catheterization (03/18/20) History of knee replacement History of total knee arthroplasty Social History Smoking Status: Former smoker alcohol intake: never substance use type: does not use caffeine: Yes Type: coffee Number of servings: 3 additional social history: Does Not Take Ibuprofen ROS ROS ED Constitutional Constitutional ED: Denies chills, fever(s) or sweats Eyes Eyes: Denies blurry vision or change in vision ENT ENT ED: Denies ear pain, rhinorrhea or sore throat Cardiovascular Cardiovascular: Denies chest pain, orthopnea, palpitations or paroxysmal nocturnal dyspnea Respiratory/Chest Respiratory/Chest: Reports cough; Denies dyspnea, dyspnea on exertion, orthopnea, paroxysmal nocturnal dyspnea or sputum Gastrointestinal Gastrointestinal: Denies abdominal pain, diarrhea, nausea or vomiting Genitourinary Genitourinary ED: Reports urinary frequency; Denies dysuria or hematuria Musculoskeletal Musculoskeletal: Denies arthralgias or myalgias Integumentary Denies rash Neurologic Neurologic: Reports headache(s) and weakness; Denies paresthesias Hematologic/Lymphatic Hematologic/Lymphatic: Reports systems reviewed and no addt'l complaints, exceptas documented Allergic/Immunologic Allergic/Immunologic ED: Denies mouth swelling or tongue swelling EXAM Physical Exam Const Vital Signs: 04/15/25 14:09 04/15/25 14:09 04/15/25 14:21 Temperature 103.6 F H 103.2 F H 103.2 F H Temperature Source Oral Oral Oral Pulse Rate 112 H 110 H 110 H Respiratory Rate 18 20 H 20 H Respiratory Pattern Blood Pressure 156/53 H 156/53 H 156/53 H Blood Pressure Mean 87 87 87 Pulse Ox 95 94 95 Oxygen Delivery Method Room Air Room Air Room Air 04/15/25 15:11 04/15/25 15:21 04/15/25 15:21 Temperature 103.5 F H 103.8 F H Temperature Source Core Core Pulse Rate 114 H 109 H Respiratory Rate 24 H 23 H Respiratory Pattern Tachypnea Blood Pressure 151/106 H 151/106 H Blood Pressure Mean 121 121 Pulse Ox 94 92 Oxygen Delivery Method Room Air Room Air 04/15/25 16:00 04/15/25 16:00 04/15/25 17:00 Temperature 104.5 F H 104.5 F H 104.4 F H Temperature Source Core Core Core Pulse Rate 109 H 109 H 112 H Respiratory Rate 32 H 32 H 26 H Respiratory Pattern Blood Pressure 156/60 H 156/60 H 145/65 H Blood Pressure Mean 92 92 91 Pulse Ox 92 92 95 Oxygen Delivery Method Room Air Room Air Room Air 04/15/25 17:00 04/15/25 18:00 04/15/25 18:00 Temperature 104.4 F H 104.1 F H 104 F H Temperature Source Core Core Core Pulse Rate 110 H 110 H 110 H Respiratory Rate 22 H 19 H 23 H Respiratory Pattern Blood Pressure 145/65 H 145/65 H 145/65 H Blood Pressure Mean 91 91 91 Pulse Ox 95 92 94 Oxygen Delivery Method Room Air Room Air Room Air 04/15/25 18:34 Temperature Temperature Source Pulse Rate Respiratory Rate Respiratory Pattern Blood Pressure Blood Pressure Mean Pulse Ox 93 Oxygen Delivery Method Room Air Positive well nourished and well developed Constitutional Narrative: Patient appears ill but not toxic. He is in no obvious distress. His vital signs are remarkable for tachycardia, tachypnea and temperature of 103.2 ?F. Heis not hypoxic. General Appearance ED: well developed; Negative for pallor HEENT Reports TM's clear and dry mucous membranes Negative for trauma or tenderness Tympanic Membrane ED: Yes TM's clear Mouth ED: Yes dry mucous membranes Mouth: dry mucous membranes Eyes PERRL and EOMs intact bilaterally General Eye ED: Negative for pale conjunctiva or scleral icterus Neck no lymphadenopathy, supple and no JVD Chest Wall inspection of chest normal and palpation of chest normal Resp normal respiratory effort and clear to auscultation bilaterally Cardio no murmurs Rate: tachycardic Rhythm: abnormal rhythm irregularly irregular GI normal to inspection, nondistended, normoactive bowel sounds, non-distended and no masses; Negative for non-tender or hepatosplenomegaly Palpation: soft and tender suprapubic Back/Spine no CVA tenderness Extremity Negative for normal to inspection Extremity Narrative: Stigmata of peripheral arterial disease, mild swelling/edema. Neuro oriented x3, CN's II-XII intact bilaterally and no sensory deficits noted Neuro Narrative: He is awake but not alert. At times he has trouble expressing himself and thereis a break in fluency. Sensorium / Orientation: Negative for alert Psych Mood & Affect: depressed Skin no rashes or lesions noted, no wounds and skin turgor normal General Skin Exam: Negative for jaundice or pallor MDM MDM MDM Narrative Medical decision making narrative: Patient is presumed septic with a temperature 103.6, tachycardia, tachypnea. Heis not in shock since his blood pressure is normal. The twelve-lead EKG that accompanied him from EMS reveals a rapid heart rate and I believe it is a fib. There is significant artifact. Will have respiratory therapist repeat 1 in the department. Monitor appears to be A-fib. Twelve-lead lead was obtained to assess for any evidence of cardiac ischemia. Patient is encephalopathic. Presumed source is urinary. However with him beingtachypneic and having a cough will obtain chest x-ray to evaluate for pneumonia and to assure that there is no evidence of heart failure. Sepsis order set was used. Since he has no antibiotic allergies we will start treatment with Rocephin which will be appropriate for both respiratory and urologic pathogens. History & Record Review Additional record(s) reviewed:: Prior outpatient record (Records from nursing facility were reviewed. Patient was seen by plastic surgery April [address] Rodriges.), Prior ED visit (He was seen in the ER January 2023 for right thigh pain. Dr. Wallace's note was reviewed/read.) and Prior labs Lab Data Attestation: I reviewed the patient's lab results. Lab results narrative: Patient is neutropenic. There is a shift. Since patient is neutropenic we willadd on a COVID, influenza RSV panel. There has been increase incidence of COVIDinvolving patients from nursing facility. He is mildly anemic with normal indices. Comprehensive metabolic panel reveals slight hyponatremia and hypochloremia 132 and 96 respectively. Patient is not on a diuretic. Glucose is slowly elevated 125 with a normal CO2 and anion gap. Liver enzymes and albumin are normal. Urinalysis micro reveals 0-5 RBCs, 0-5 WBCs and no bacteria. Labs: Laboratory Results - last 24 hr 04/15/25 04/15/25 14:36 15:05 WBC 3.1 L RBC 4.08 L Hgb 12.6 L Hct 36.2 L MCV 88.7 MCH 30.9 MCHC 34.8 RDW Std Deviation 40.6 RDW Coeff of Liang 12.6 Plt Count 100 L MPV 9.1 Immature Gran % (Auto) 0.700 Neut % (Auto) 83.9 H Lymph % (Auto) 6.9 L [place] % (Auto) 7.2 Eos % (Auto) 1.0 Baso % (Auto) 0.3 Absolute Neuts (auto) 2.6 Absolute Lymphs (auto) 0.21 L Nucleated RBC % 0 PT 15.1 H INR 1.2 APTT 30.3 Sodium 132 L Potassium 4.6 Chloride 96 L Carbon Dioxide 23.1 Anion Gap 13 BUN 13 Creatinine 0.91 Estim Creat Clear Calc 74.67 Est GFR (MDRD) Non-Af 88 BUN/Creatinine Ratio 14.6 Glucose 125 H Lactic Acid 1.6 Calcium 9.3 Total Bilirubin 0.52 AST 36 ALT 30 Alkaline Phosphatase 99 Total Protein 7.1 Albumin 4.3 Globulin 2.8 Albumin/Globulin Ratio 1.6 Urine Color Yellow Urine Clarity Clear Urine pH 7.0 Ur Specific [place] 1.010 Urine Protein 30 H Urine Glucose (UA) Normal Urine Ketones 5 H Urine Occult Blood 10 H Urine Nitrite Negative Urine Bilirubin Negative Urine Urobilinogen Normal Ur Leukocyte Esterase Negative Urine RBC 0-5 SEEN Urine WBC 0-5 SEEN Ur Squamous Epith Cells 0-5 SEEN Urine Bacteria 0 SEEN Urine Mucus 0 SEEN Radiography Chest X-Ray - ED: 1 View and Read by ED Physician (X-ray slightly rotated. Patient has sternotomy scars noted. There is some mild increased interstitial markings noted. There is no cephalization, effusion, pneumothorax. Osseous structures reveal some chronic changes. Is independent reviewed interpreted by me at the 1853) EKG Initial EKG: Attestation: I personally reviewed and interpreted this EKG as follows: Interpretation: Sinus Rhythm (Sinus tachycardia with frequent paced rhythms noted. Rate is 113. DE 136 ms per QRS duration 72 ms her QT duration 276 ms. Herod is normal. There is artifact the computer is reading consider an Fery or ischemia.) Management Discussion w/another healthcare provider: Hospitalist (Dr. Claudia Diaz the hospitalist was paged for admission. Fever of unknown etiology with encephalopathy) Treatment and Re-Evaluation :: patient initially received Rocephin since the concern was possible respiratory or urologic etiology in light of him having a cough shortness of breath and frequency. Since there is no evidence of pneumonia and no evidence of urinary tract infection vancomycin was added. Discharge Plan Dx/Rx/DC Orders Clinical Impression: Fever and chills, Acute encephalopathy, SIRS (systemic inflammatory response syndrome), Pancytopenia, Benign essential hypertension, Obstructive sleep apnea syndrome, Acute hyponatremia, Type 2 diabetes mellitus with hyperglycemia, AdultBMI 33.0-33.9 kg/sq m Disposition Disposition: Acute Care Hospital [facility] What to do if you have Problems For any increased pain, shortness of breath, bleeding, nausea or vomiting, chestpain, or any unexpected problems, contact your Primary Care Provider. Call [facility] ([phone]) or report to the closest Emergency Room. Call 911 if necessary. 04/15/251834 <Electronically signed by Omer Boo MD> Cosigner Signature (if applicable): CC: Dr. Mike Solorzano MD ~ Signed [facility] Work Phone: 1(703) 433-926308-04-2025 NoteHNO ID: [id number] Author: LISA QUINTANILLA MD Service: ? Author Type: Physician Type: Progress Notes Filed: 04/01/2025 10:52 Note Text: URGENT CARE [facility] Ascencion Weir is a 74 year old male. Patient presents with: Rash: Rash on MADAN legs x 4 days Rash: Location: lower legs Duration: started 4 days ago Pruritis: sometimes Pain: No Change: NO Bleeding/ulceration/blister/pustule: red spots Contacts with rash: No; here because his is concerned he may spread the rash to her Exposure: No new soaps, detergents, fabric softeners, lotions. Outdoor exposure: string trimming before he got the rash. Change in medications: No. Recent illness: No. Treatment: alcohol The history is provided by the patient. Rash Review of Systems Skin: Positive for rash. Objective BP 120/66 Pulse 100 Temp (!) 35.7 ?C (96.3 ?F) Resp 20 Wt 89.6 kg (197 lb 8.5 oz) SpO2 96% BMI 30.04 kg/m? Physical Exam Constitutional: General: He is not in acute distress. Skin: Comments: Red hyperpigmented patches, streaks, papules both lower legs. No induration, ulceration, or fluctuance. Neurological: Mental Status: He is alert. {ASSESSMENT/PLAN: 1. Contact dermatitis due to plant - ICD9: 692.6, ICD10: L25.5 Contact dermatitis secondary to string trimming. He may proceed with expectant management or potentially reduce duration by applying topical steroid. - TRIAMCINOLONE ACETONIDE 0.1 % TOPICAL CREAM Follow-up with worsening or failure to improve. He still has some issues with his left index finger from November which he noticed after running his hand along the flag. There is a little swelling and tenderness but also difficulty with getting the finger catching sometimes. I suggested follow-up with Dr. Diaz for trigger finger and concern for foreign body if the issue is bothersome enough. Lisa Quintanilla MD Differential Diagnoses - Contact dermatitis due to plant is more likely for the following reason(s): suggested by HANDP - Trigger finger - Infectious/contagious dermatitis is less likely for the following reason(s): HANDP not suggestive [facility] History of Present illness Narrative* Lisa Quintanilla MD - 04/01/2025 10:47 AM EDT URGENT CARE [facility] Ascencion Weir is a 74 year old male. Patient presents with: Rash: Rash on MADAN legs x 4 days Rash: Location: lower legs Duration: started 4 days ago Pruritis: sometimes Pain: No Change: NO Bleeding/ulceration/blister/pustule: red spots Contacts with rash: No; here because his is concerned he may spread the rash to her Exposure: No new soaps, detergents, fabric softeners, lotions. Outdoor exposure: string trimming before he got the rash. Change in medications: No. Recent illness: No. Treatment: alcohol The history is provided by the patient. Rash Review of Systems Skin: Positive for rash. Objective BP 120/66 Pulse 100 Temp (!) 35.7 C (96.3 F) Resp 20 Wt 89.6 kg (197 lb 8.5 oz) SpO2 96% BMI 30.04 kg/m Physical Exam Constitutional: General: He is not in acute distress. Skin: Comments: Red hyperpigmented patches, streaks, papules both lower legs. No induration, ulceration, or fluctuance. Neurological: Mental Status: He is alert. {ASSESSMENT/PLAN: 1. Contact dermatitis due to plant - ICD9: 692.6, ICD10: L25.5 Contact dermatitis secondary to string trimming. He may proceed with expectant management or potentially reduce duration by applying topical steroid. - TRIAMCINOLONE ACETONIDE 0.1 % TOPICAL CREAM Follow-up with worsening or failure to improve. He still has some issues with his left index finger from November which he noticed after running his hand along the flag. There is a little swelling and tenderness but also difficulty with getting the finger catching sometimes. I suggested follow-up with Dr. Diaz for trigger finger and concern for foreign body if the issue is bothersome enough. Lisa Quintanilla MD Differential Diagnoses - Contact dermatitis due to plant is more likely for the following reason(s): suggested by H&P - Trigger finger - Infectious/contagious dermatitis is less likely for the following reason(s): H&P not suggestive [facility] Telephone encounter Note * Telephone Encounter - Chrissy Haque - 03/29/2025 10:45 AM EDT Patient has been identified by name and date of : Yes, Patient phones for refill(s): TraMADol (ULTRAM) 50 mg tablet (not in current refill list) Date of last office visit in primary care: 02/11/2025 Date of next office visit in primary care: 07/17/2025 Please advise. Thank you. Chrissy Haque. [facility]08-01-[facility] Miscellaneous Notes* Telephone Encounter - Chrissy Haque - 03/29/2025 10:45 AM EDT Patient has been identified by name and date of : Yes, Patient phones for refill(s): TraMADol (ULTRAM) 50 mg tablet (not in current refill list) Date of last office visit in primary care: 02/11/2025 Date of next office visit in primary care: 07/17/2025 Please advise. Thank you. Chrissy Haque. documented in this encounterC[facility] Telephone encounter Note * Telephone Encounter - Aaron Solorzano MD - 03/08/2025 10:28 AM EDT The following approved medication requests have been transmitted electronically. Requested Prescriptions Signed Prescriptions Disp Refills metFORMIN (GLUCOPHAGE) 1,000 mg tablet 180 tablet 1 Sig: Take 1 tablet by mouth two times a day with meals. Authorizing Provider: AARON SOLORZANO MD [facility]07-11-2025 Miscellaneous Notes* Telephone Encounter - Aaron Solorzano MD - 03/08/2025 10:28 AM EDT The following approved medication requests have been transmitted electronically. Requested Prescriptions Signed Prescriptions Disp Refills metFORMIN (GLUCOPHAGE) 1,000 mg tablet 180 tablet 1 Sig: Take 1 tablet by mouth two times a day with meals. Authorizing Provider: AARON SOLORZANO MD * Telephone Encounter - Vidhya Molina - 03/08/2025 9:47 AM EDT Prescription Refill Information The patient has been identified by name and date of : Yes Caregiver verified no other encounters exist for this prescription request: Yes Caregiver confirmed with patient/requestor that no other refills are due, in the near future, with this provider at this time: Yes The last office visit in the department: 02/11/25 Does the patient have a future office visit with this provider/department: Yes Requested Prescriptions Pending Prescriptions Disp Refills metFORMIN (GLUCOPHAGE) 1,000 mg tablet 180 tablet 3 Sig: Take 1 tablet by mouth two times a day with meals. Patient needs today. He is out tomorrow. Vidhya Cano March 08, 2025 9:48 AM documented in [facility] encounterC[facility] Telephone encounter Note * Telephone Encounter - Vidhya Molina - 03/08/2025 9:47 AM EDT Prescription Refill Information The patient has been identified by name and date of : Yes Caregiver verified no other encounters exist for this prescription request: Yes Caregiver confirmed with patient/requestor that no other refills are due, in the near future, with this provider at this time: Yes The last office visit in the department: 02/11/25 Does the patient have a future office visit with this provider/department: Yes Requested Prescriptions Pending Prescriptions Disp Refills metFORMIN (GLUCOPHAGE) 1,000 mg tablet 180 tablet 3 Sig: Take 1 tablet by mouth two times a day with meals. Patient needs today. He is out tomorrow. Vidhya Juárez [facility] March 08, 2025 9:48 AM [facility]06-25-[facility] Telephone encounter Note* Telephone Encounter - Aaron Solorzano MD - 02/20/2025 10:37 AM EDT The following approved medication requests have been transmitted electronically. Requested Prescriptions Signed Prescriptions Disp Refills traMADol (ULTRAM) 50 mg tablet 120 tablet 0 Sig: Take 1 tablet by mouth every 6 hours as needed for pain for up to 30 days. Authorizing Provider: AARON SOLORZANO MD [facility]06-25-2025 Miscellaneous Notes* Telephone Encounter - Aaron Solorzano MD - 02/20/2025 10:37 AM EDT The following approved medication requests have been transmitted electronically. Requested Prescriptions Signed Prescriptions Disp Refills traMADol (ULTRAM) 50 mg tablet 120 tablet 0 Sig: Take 1 tablet by mouth every 6 hours as needed for pain for up to 30 days. Authorizing Provider: AARON SOLORZANO MD * Telephone Encounter - Veronica Chow - 02/18/2025 11:57 AM EDT Patient requesting medication tramadol hcl(ULTRAM 50 MG TAB) Patient last seen 02/11/25 Future visit scheduled: yes [facility]ARMACY: [facility]. documented in this encounterC[facility]06-23-2025 Telephone encounter Note * Telephone Encounter - Veronica Chow - 02/18/2025 11:57 AM EDT Patient requesting medication tramadol hcl(ULTRAM 50 MG TAB) Patient last seen 02/11/25 Future visit scheduled: yes [facility]ARMACY: [facility]. [facility]06-18-[facility] History of Present illness Narrative* Nadege Seo MA - 02/13/2025 1:40 PM EDT POPULATION HEALTH NAVIGATION OUTREACH Action/I Schedule medicare wellness and 6 month f/u in June Topic Due (Y or N) Comments Medicare Wellness y PCP Follow up Colorectal Cancer Screening Controlling Blood Pressure A1C y HCC y Flu Vaccine Care Everywhere Reviewed MyChart Activation Updated Appointment Note Reason for Outreach Care Gap/HCC or Scheduling Wellness Visits Care Gaps due: Medicare Annual Wellness Visit HBA1C Patient Contacted: Spoke to patient/parent/or legal guardian Patient identified by name and : Yes Care Gap/HCC/Scheduling Wellness actions taken: Patient scheduled/pended orders: Medicare Annual Wellness Visit HBA1C 07/17/2025 in [facility] with AARON SOLORZANO medicare wellness HCC related Navigation Signature: Nadege Seo MA February 13, 2025 1:40 PM documented in this encounterC[facility]06-18-2025 NoteHNO ID: [id number] Author: NADEGE SEO MA Service: ? Author Type: College [employer] University Registrar Type: Progress Notes Filed: 02/13/2025 13:51 Note Text: POPULATION HEALTH NAVIGATION OUTREACH Action/FYI Schedule medicare wellness and 6 month f/u in June Topic Due (Y or N) Comments Medicare Wellness y PCP Follow up Colorectal Cancer Screening Controlling Blood Pressure A1C y HCC y Flu Vaccine Care Everywhere Reviewed MyChart Activation Updated Appointment Note Reason for Outreach Care Gap/HCC or Scheduling Wellness Visits Care Gaps due: Medicare Annual Wellness Visit HBA1C Patient Contacted: Spoke to patient/parent/or legal guardian Patient identified by name and : Yes Care Gap/HCC/Scheduling Wellness actions taken: Patient scheduled/pended orders: Medicare Annual Wellness Visit HBA1C 07/17/2025 in [facility] with AARON SOLORZANO medicare wellness HCC related Navigation Signature: Nadege Seo MA February 13, 2025 1:40 [facility]06-18-2025 NotePatient Outreach (NETNAV) ASCENCION WEIR ([id number]) 1950 M Date Time Provider Department 02/13/25 NADEGE SEO NETKRYSTIN During your visit today, we recorded the following information about you: Nadege Seo MA 02/13/2025 1:51 PM Signed POPULATION HEALTH NAVIGATION OUTREACH Action/FYI Schedule medicare wellness and 6 month f/u in June Topic Due (Y or N) Comments Medicare Wellness y PCP Follow up Colorectal Cancer Screening Controlling Blood Pressure A1C y HCC y Flu Vaccine Care Everywhere Reviewed MyChart Activation Updated Appointment Note Reason for Outreach Care Gap/HCC or Scheduling Wellness Visits Care Gaps due: Medicare Annual Wellness Visit HBA1C Patient Contacted: Spoke to patient/parent/or legal guardian Patient identified by name and : Yes Care Gap/HCC/Scheduling Wellness actions taken: Patient scheduled/pended orders: Medicare Annual Wellness Visit HBA1C 07/17/2025 in [facility] with AARON SOLORZANO - medicare wellness HCC related Navigation Signature: Nadege Seo MA February 13, 2025 1:40 PM Allergies As of Date: 02/13/2025 Noted Allergy Reaction ENTEX PSE (PSEUDOEPHEDRINE-GUAIFE*08/11/2007 5 - Intolerance Comments: Patient states he does not have any allergies Date Reviewed: 02/11/2025 Reviewed by: Vernell Hernandez LPN - Fully Assessed Reason for Visit: Population Health Navigation Outreach [3910] Cmt: ACO REGINA MALONEY PCSA Prescriptions as of 02/13/2025 - gabapentin (NEURONTIN) 400 mg capsule Take 1 capsule by mouth two times a day for 180 days. - amoxicillin (AMOXIL) 500 mg capsule Take 4 capsules by mouth prior to dental procedure. - multivitamin tablet Take 1 tablet by mouth once daily. - celecoxib (CELEBREX) 200 mg capsule Take 1 capsule by mouth twice daily. Take with food. - tamsulosin (FLOMAX) 0.4 mg Take 1 capsule by mouth daily at bedtime. - metoprolol succinate ER (TOPROL XL) 100 mg Take 0.5 tablets by mouth once daily. - metFORMIN (GLUCOPHAGE) 1,000 mg tablet Take 1 tablet by mouth two times a day with meals. - atorvastatin (LIPITOR) 20 mg tablet Take 1 tablet by mouth once daily. - hydrOXYchloroQUINE (PLAQUENIL) 200 mg tablet Take 1 tablet by mouth every afternoon. - blood sugar diagnostic (TRUE METRIX GLUCOSE TEST STRIP) test strip Test blood sugar(s) 3 times daily. Insulin: Yes - Lancets lancets Test blood sugar(s) 4 times daily. Dx: Type 2 DM - Controlled E11.9 Insulin: Yes - CPAP Initiate CPAP @ 7 cm of water with humidification. Mask (per patient preference) optional chin strap (if indicated) , filters, tubing, humidifier and lifetime supplies. - aspirin, enteric coated (ADULT ASPIRIN EC LOW STRENGTH) 81 mg EC tablet Take 1 tablet by mouth every 48 hours. 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] 02/24/2009 Displacement of Lumbar Intervertebral Disc with*08/11/2009 Sleep Apnea [G47.30] 11/07/2009 Buttock pain [M79.18] 02/18/2014 Low back pain [M54.50] 02/18/2014 Lumbosacral neuritis [M54.17] 02/18/2014 Lumbar spondylosis [M47.816] 02/18/2014 Lumbar degenerative disc disease [M51.369] 02/18/2014 Mixed hyperlipidemia [E78.2] 10/29/2015 Ischial bursitis of left side [M70.72] 11/08/2015 Nonrheumatic aortic valve stenosis [I35.0] 05/31/2019 Coronary artery disease involving [place] malik*09/18/2020 Thrombocytopenia (HCC) [D69.6] 01/07/2023 Longstanding persistent atrial fibrillation (HC*01/07/2023 Peripheral arterial disease (HCC) [I73.9] 06/16/2023 Encounter Status:Closed by NADEGE SEO on 02/13/25[facility]06-17-2025 NoteHNO ID: [id number] Author: AARON SOLORZANO MD Service: ? Author Type: Physician Type: Progress Notes Filed: 02/12/2025 10:25 Note Text: Subjective Ascencion Weir is a 74-year-old male presenting for evaluation of chronic back pain and left hand swelling. Chronic Back Pain: - Chronic back pain, described as killing me every day. - Pain is intermittent, with periods of relief. - Aggravated by walking; unable to walk long distances. - Pain radiates into the hip, primarily on the right side. - Managed with tramadol and other pain relievers. - Under the care of Dr. Johnson, a painter and body work in [place]. - Recent x-rays performed for Dr. Johnson. - Received an epidural steroid injection approximately 3 weeks ago, providing significant relief but not complete resolution. - Denies neuropathic pain or radiation down the legs. Left Hand Swelling: - Swelling and pain in Ascencion's left hand since November. - Difficulty closing and opening fingers, particularly the left index finger. - Onset after handling a new flag, with a sensation of being stuck in the hand. - X-rays performed, but no foreign body identified. - Swelling and pain persist, but less severe than initially. Anemia: - History of slightly low hemoglobin levels. - Denies any bleeding, melena, or signs of blood loss. Lifestyle: - Reports good blood pressure control. - Bowel and bladder function are normal. Gastrointestinal: (-) melena Musculoskeletal: (+) back pain, (+) right hip pain, (+) difficulty walking, (+) left hand swelling, (+) left hand pain Hematologic/Lymphatic: (-) bleeding Objective Blood pressure 125/62, pulse 79, height 172.7 cm (5' 7.99), weight 89 kg (196 lb 3.4 oz), SpO2 95%. General: No acute distress. CV: Heart sounds normal. Resp: Breath sounds normal. MSK/Ext: Limited ability to lift right leg; swelling and pain in left hand, difficulty opening fingers. Labs: (July) - CMP: Kidney function normal, liver enzymes normal, cholesterol within normal range - Hemoglobin A1c: 5.9% - RBC: Slightly below normal - Hemoglobin: Slightly below normal Imaging: - Spine X-ray (no date provided): Findings not stated in the transcript (November) - Left Hand X-ray: No foreign body identified Assessment AND Plan 1. Lumbar spondylosis (M47.816) 2. Degeneration of intervertebral disc of lumbar region with discogenic back pain and lower extremity pain (M51.362) - Chronic back pain with intermittent exacerbations; recent epidural steroid injection by Dr. Johnson, painter and body work, provided partial relief. - Pain radiates to the hip, particularly on the right side, limiting mobility. - Currently managed with tramadol as needed. - Provided a letter for handicap parking due to significant mobility limitations. - Follow-up with Dr. Johnson for ongoing pain management. 3. Controlled type 2 diabetes mellitus with diabetic neuropathy, with long-term current use of insulin (HCC) (E11.40) - Hemoglobin A1c in July was 5.9%. - Continue current insulin regimen. - Monitor blood glucose levels regularly. 4. Sensation of foreign body in finger (R20.8) - Persistent swelling and pain in the left hand following a suspected foreign body injury in November; X-rays negative for foreign body. - Symptoms have improved but still present. - Monitor for any changes or worsening symptoms. 5. Mixed hyperlipidemia (E78.2) - Cholesterol levels were stable in July. - Continue current lipid-lowering therapy. 6. Anemia of chronic disease (D63.8) - Hemoglobin level slightly below normal in July; no signs of bleeding or blood loss. - Schedule follow-up blood work in June to monitor hemoglobin levels. Recording using [employer] software for draft documentation of the visit was discussed with the patient/authorized registered representative; all questions welcomed and answered. Patient/authorized registered representative agreed to proceed Office Visit on 02/11/25 HEMOGLOBIN A1C COMPREHENSIVE METABOLIC PANEL LIPID PANEL, FASTING COMPLETE BLOOD COUNT Requested Prescriptions No prescriptions requested or ordered in this encounter Aaron Solorzano, [facility]06-17-2025 History of Present illness Narrative* Aaron Solorzano MD - 02/12/2025 10:16 AM EDT Subjective Ascencion Weir is a 74-year-old male presenting for evaluation of chronic back pain and left hand swelling. Chronic Back Pain: - Chronic back pain, described as killing me every day. - Pain is intermittent, with periods of relief. - Aggravated by walking; unable to walk long distances. - Pain radiates into the hip, primarily on the right side. - Managed with tramadol and other pain relievers. - Under the care of Dr. Johnson, a painter and body work in [place]. - Recent x-rays performed for Dr. Johnson. - Received an epidural steroid injection approximately 3 weeks ago, providing significant relief but not complete resolution. - Denies neuropathic pain or radiation down the legs. Left Hand Swelling: - Swelling and pain in Ascencion's left hand since November. - Difficulty closing and opening fingers, particularly the left index finger. - Onset after handling a new flag, with a sensation of being stuck in the hand. - X-rays performed, but no foreign body identified. - Swelling and pain persist, but less severe than initially. Anemia: - History of slightly low hemoglobin levels. - Denies any bleeding, melena, or signs of blood loss. Lifestyle: - Reports good blood pressure control. - Bowel and bladder function are normal. Gastrointestinal: (-) melena Musculoskeletal: (+) back pain, (+) right hip pain, (+) difficulty walking, (+) left hand swelling,(+) left hand pain Hematologic/Lymphatic: (-) bleeding Objective Blood pressure 125/62, pulse 79, height 172.7 cm (5' 7.99), weight 89 kg (196 lb 3.4 oz), SpO2 95%. General: No acute distress. CV: Heart sounds normal. Resp: Breath sounds normal. MSK/Ext: Limited ability to lift right leg; swelling and pain in left hand, difficulty opening fingers. Labs: (July) - CMP: Kidney function normal, liver enzymes normal, cholesterol within normal range - Hemoglobin A1c: 5.9% - RBC: Slightly below normal - Hemoglobin: Slightly below normal Imaging: - Spine X-ray (no date provided): Findings not stated in the transcript (November) - Left Hand X-ray: No foreign body identified Assessment & Plan 1. Lumbar spondylosis (M47.816) 2. Degeneration of intervertebral disc of lumbar region with discogenic back pain and lower extremity pain (M51.362) - Chronic back pain with intermittent exacerbations; recent epidural steroid injection by Dr. Johnson, painter and body work, provided partial relief. - Pain radiates to the hip, particularly on the right side, limiting mobility. - Currently managed with tramadol as needed. - Provided a letter for handicap parking due to significant mobility limitations. - Follow-up with Dr. Johnson for ongoing pain management. 3. Controlled type 2 diabetes mellitus with diabetic neuropathy, with long-term current use of insulin (HCC) (E11.40) - Hemoglobin A1c in July was 5.9%. - Continue current insulin regimen. - Monitor blood glucose levels regularly. 4. Sensation of foreign body in finger (R20.8) - Persistent swelling and pain in the left hand following a suspected foreign body injury in November;X-rays negative for foreign body. - Symptoms have improved but still present. - Monitor for any changes or worsening symptoms. 5. Mixed hyperlipidemia (E78.2) - Cholesterol levels were stable in July. - Continue current lipid-lowering therapy. 6. Anemia of chronic disease (D63.8) - Hemoglobin level slightly below normal in July; no signs of bleeding or blood loss. - Schedule follow-up blood work in June to monitor hemoglobin levels. Recording using [employer] software for draft documentation of the visit was discussed with the patient/authorized registered representative; all questions welcomed and answered. Patient/authorized registered representative agreed to proceed Office Visit on 02/11/25 HEMOGLOBIN A1C COMPREHENSIVE METABOLIC PANEL LIPID PANEL, FASTING COMPLETE BLOOD COUNT Requested Prescriptions No prescriptions requested or ordered in this encounter Aaron Solorzano MD [facility] Telephone encounter Note * Telephone Encounter - Aimee Almanza - 01/28/2025 1:13 PM EDT Prescription Refill Information The patient has been identified by name and date of : Yes Caregiver verified no other encounters exist for this prescription request: Yes Caregiver confirmed with patient/requestor that no other refills are due, in the near future, with this provider at this time: Yes The last office visit in the department: 11/08/2024 Does the patient have a future office visit with this provider/department: Yes Requested Prescriptions Pending Prescriptions Disp Refills gabapentin (NEURONTIN) 400 mg capsule 60 capsule 5 Sig: Take 1 capsule by mouth two times a day for 180 days. amoxicillin (AMOXIL) 500 mg capsule 4 capsule 1 Sig: Take 4 capsules by mouth prior to dental procedure. Aimee Williamson January 28, 2025 1:13 PM [facility]06-02-2025 Miscellaneous Notes* Telephone Encounter - Aimee Almanza - 01/28/2025 1:13 PM EDT Prescription Refill Information The patient has been identified by name and date of : Yes Caregiver verified no other encounters exist for this prescription request: Yes Caregiver confirmed with patient/requestor that no other refills are due, in the near future, with this provider at this time: Yes The last office visit in the department: 11/08/2024 Does the patient have a future office visit with this provider/department: Yes Requested Prescriptions Pending Prescriptions Disp Refills gabapentin (NEURONTIN) 400 mg capsule 60 capsule 5 Sig: Take 1 capsule by mouth two times a day for 180 days. amoxicillin (AMOXIL) 500 mg capsule 4 capsule 1 Sig: Take 4 capsules by mouth prior to dental procedure. Aimee Williamson January 28, 2025 1:13 PM documented in this encounterC[facility]-30-[facility] Telephone encounter Note * Telephone Encounter - Iwona Carr MA - 01/25/2025 3:42 PM EDT Spoke with patient and he states he remembered being told at his last visit by the helper, that since his A1c was good, he didn't have to take medications anymore for Diabetes. Informed him that his last office visit notes that he was to continue his current regimen with no changes, so he must have misunderstood something. He expressed understanding. [facility]05-30-2025 Miscellaneous Notes* Telephone Encounter - Iwona Carr MA - 01/25/2025 3:42 PM EDT Spoke with patient and he states he remembered being told at his last visit by the helper, that since his A1c was good, he didn't have to take medications anymore for Diabetes. Informed him that his last office visit notes that he was to continue his current regimen with no changes, so he must have misunderstood something. He expressed understanding. * Telephone Encounter - Aaron Solorzano MD - 01/25/2025 10:23 AM EDT Our records show he is to be taking it. Is there some reason he thinks he ought not to take the Metformin 1000 mg twice a day? Aaron Solorzano MD * Telephone Encounter - Veronica Chow - 01/24/2025 4:05 PM EDT Ascencion is calling Aaron Solorzano MD today with concern regarding medication question Patient asking if he should be taking metFORMIN (GLUCOPHAGE) 1,000 mg tablet Patient has been identified by name and birthdate. Duration of symptoms: N/A Person calling: self Call patient at: on cell [phone] (home) Was an appointment scheduled: No Closing statement: Results or non-symptom based questions: Thank you for calling [facility], your call will be returned within the next business day. Veronica Chow documented in this encounterC[facility]05-30-2025 Telephone encounter Note * Telephone Encounter - Aaron Solorzano MD - 01/25/2025 10:23 AM EDT Our records show he is to be taking it. Is there some reason he thinks he ought not to take the Metformin 1000 mg twice a day? Aaron Solorzano MD [facility]05-29-2025 Telephone encounter Note* Telephone Encounter - Veronica Chow - 01/24/2025 4:05 PM EDT Ascencion is calling Aaron Solorzano MD today with concern regarding medication question Patient asking if he should be taking metFORMIN (GLUCOPHAGE) 1,000 mg tablet Patient has been identified by name and birthdate. Duration of symptoms: N/A Person calling: self Call patient at: on cell [phone] (home) Was an appointment scheduled: No Closing statement: Results or non-symptom based questions: Thank you for calling [facility], your call will be returned within the next business day. Veronica Chow [facility]05-07-2025 Telephone encounter Note* Telephone Encounter - Vernell Hernandez LPN - 01/02/2025 2:57 PM EDT [facility]. Placed in provider's inbox for review. Route to MA scanning [facility]05-07-2025 Miscellaneous Notes* Telephone Encounter - Vernell Hernandez LPN - 01/02/2025 2:57 PM EDT [facility]. Placed in provider's inbox for review. Route to MA scanning documented in this encounterC[facility]05-[facility]-2025 Discharge summary Author Jean Claude Berman [facility] Note Date/Time January 01, 2025 7:00pm [facility] [address] [place] [address]. [address] [place] [id number] / REHABILITATION SERVICES DISCHARGE SUMMARY MR#: [id number] Acct: [id number] Name: ASCENCION WEIR Rep #: [id number] : 1950 74 From: Jean Claude Berman DPT, OCS, CSCS Referring Dr.: Dr. Mike Solorzano MD Status: REG RCR Insurance: [employer] MED[employer]ARE SELF PAY INSURANCE Discharge Summary D/C summary: It has been my pleasure to treat ASCENCION WEIR referred by Dr. Mike Solorzano MD, with the diagnosis of Balance problems for a total of 13 visit(s). Discharge Date: 01/01/25 Please see the following information for a summary of their discharge status. Subjective Subjective: Not seeing much improvement, maybe a little better in movement adn ROM back. Has appointment for back injections and will have hip looked at . Hip pain and tightness is holding him back. Balance is not much different. No falls laately, not catching to e as much. Pain Bilateral Back: Pain Intensity (Out of 10): 7 Overall Improvement % Improvement: 5 Objective Objective/Function: 10 # R DF, not improving. Walksing with L steppage adn neuropathic gait pattern. Safe without AD but slow. Overall not feeling much better and pain LB and R hip is frustrating factor, he will be going to pain management for that and may request back in after pain is improved if desired. Goals Goal 1:: I appropriate HEP for DF and ankle strength, weight shifting and gastroc stretching. Goal Progress: Goal Met Goal 2:: 30# R ankle DF strength Goal Progress: Not Progressing Goal 3:: pt feel 50% improved in overall balance and no falls Goal Progress: Not Progressing Goal 4:: stand c wihtout immediate LOB 15 seconds. Goal Progress: Not Progressing Plan Plan: d/c D/C Information Discharge Comments: Pt not progressing with strength Df, feeling of improved balance or pain. Will check with next step which he says is pain management. d/c sentence: If there are questions or concerns regarding this patient's physical therapy, please feel free to call me at [phone]. Thank you for the referral of thispatient. Sincerely, Jean Claude Berman DPT, OCS, CSCS Balance/Gait/Functional tests Balance/Special Test Scores Functional Gait Assessment Score: 18 % Disability: 40.0000 CATSIB Score (Max score 120 seconds): 60 Lower Extremity Functional Score: 33 Improvement % Improvement: 5 <Electronically signed by Jean Claude Berman DPT, OCS, CSCS> 01/01/25 1516 CC: Dr. Mike Solorzano MD ~ EBG Signed [facility] Work Phone: 1(395) 380-209105-06-2025 Discharge summary [facility] [address] [place] [address]. [address] [place] [address] / REHABILITATION SERVICES DISCHARGE SUMMARY MR#: [id number] Acct: [id number] Name: ASCENCION WEIR Rep #: [id number] : 1950 74 From: Jean Claude PECKT, OCS, CSCS Referring Dr.: Dr. Mike Solorzano MD Status: REG RCR Insurance: [facility] [place]F [place] Discharge Summary D/C summary: It has been my pleasure to treat ASCENCION WEIR referred by Dr. Mike Solorzano MD, with the diagnosis of Balance problems for a total of 13 visit(s). Discharge Date: 01/01/25 Please see the following information for a summary of their discharge status. Subjective Subjective: Not seeing much improvement, maybe a little better in movement adn ROM back. Has appointment for back injections and will have hip looked at . Hip pain and tightness is holding him back. Balance is not much different. No falls laately, not catching to e as much. Pain Bilateral Back: Pain Intensity (Out of 10): 7 Overall Improvement % Improvement: 5 Objective Objective/Function: 10 # R DF, not improving. Walksing with L steppage adn neuropathic gait pattern. Safe without AD but slow. Overall not feeling much better and pain LB and R hip is frustrating factor, he will be going to pain management for that and may request back in after pain is improved if desired. Goals Goal 1:: I appropriate HEP for DF and ankle strength, weight shifting and gastroc stretching. Goal Progress: Goal Met Goal 2:: 30# R ankle DF strength Goal Progress: Not Progressing Goal 3:: pt feel 50% improved in overall balance and no falls Goal Progress: Not Progressing Goal 4:: stand c wihtout immediate LOB 15 seconds. Goal Progress: Not Progressing Plan Plan: d/c D/C Information Discharge Comments: Pt not progressing with strength Df, feeling of improved balance or pain. Will check with next step which he says is pain management. d/c sentence: If there are questions or concerns regarding this patient's physical therapy, please feel free to call me at [phone]. Thank you for the referral of thispatient. Sincerely, Jean Claude Berman, CISCOT, OCS, CSCS Balance/Gait/Functional tests Balance/Special Test Scores Functional Gait Assessment Score: 18 % Disability: 40.0000 CATSIB Score (Max score 120 seconds): 60 Lower Extremity Functional Score: 33 Improvement % Improvement: 5 01/01/25 1516 CC: Dr. Mike Solorzano MD ~ EBG Signed [facility]05-06-2025 Telephone encounter Note* Telephone Encounter - Veronica Chow - 01/01/2025 10:00 AM EDT Patient requesting medication that is not current on list tramadol hcl(ULTRAM 50 MG TA Patient last seen 11-08-24 Future visit scheduled: yes PHARMACY: [facility]. [facility]05-06-2025 Miscellaneous Notes* Telephone Encounter - Veronica Chow - 01/01/2025 10:00 AM EDT Patient requesting medication that is not current on list tramadol hcl(ULTRAM 50 MG TA Patient last seen 11-08-24 Future visit scheduled: yes PHARMACY: [facility]. documented in this encounterC[facility]04-30-2025 Telephone encounter Note * Telephone Encounter - Vernell Hernandez LPN - 12/26/2024 2:06 PM EDT [facility]. Placed in provider's inbox for review. Route to MA scanning [facility]04-30-2025 Miscellaneous Notes* Telephone Encounter - Vernell Hernandez LPN - 12/26/2024 2:06 PM EDT Re[facility] from [facility]. Placed in provider's inbox for review. Route to MA scanning documented in this encounterC[facility]04-17-2025 Telephone encounter Note * Telephone Encounter - Vernell Hernandez LPN - 12/13/2024 5:06 PM EDT Re[facility]. Placed in provider's inbox for review. Route to MA scanning [facility]04-17-2025 Miscellaneous Notes* Telephone Encounter - Vernell Hernandez LPN - 12/13/2024 5:06 PM EDT Re[facility]. Placed in provider's inbox for review. Route to MA scanning documented in this encounterC[facility]04-09-2025 History of Present illness Narrative* Carley Perez RT(Gio) - 12/05/2024 10:40 AM EDT Radiology Service Progress Note PATIENT NAME: Ascencion Weir DATE OF SERVICE: December 05, 2024 TIME: 10:41 AM PATIENT IDENTITY VERIFICATION COMPLETED USING TWO (2) IDENTIFIERS: Name and Date of confirmedby patient verbally. FALL SCREENING: Has the patient had 2 falls in the last year or 1 fall with injury or currently using an Ambulatory Assistive Device (Walker, Cane, Wheelchair, Crutches, etc.)? No PATIENT GENDER DATA: Assigned male at PATIENT RELEVANT IMPLANT DATA REVIEWED: Not Applicable PATIENT PRESENTS WITH AN IMPLANTABLE OR ATTACHED WATER RECLAMATION SYSTEMS OPERATOR: No RADIOLOGY DEPARTMENT: General X-ray: Exam(s) Completed: Upper Extremity X- Ray(s): Hand, left PERIPHERAL IV DATA: Not applicable SIGNED BY: RT Diomedes(R) December 05, 2024 10:41 AM documented in this encounterC[facility]04-09-2025 NoteHNO ID: [id number] Author: CARLEY PEREZ RT(Gio) Service: Radiology Author Type: Technologist Type: Progress Notes Filed: 12/05/2024 10:48 Note Text: Radiology Service Progress Note PATIENT NAME: Ascencion Weir DATE OF SERVICE: December 05, 2024 TIME: 10:41 AM PATIENT IDENTITY VERIFICATION COMPLETED USING TWO (2) IDENTIFIERS: Name and Date of confirmed by patient verbally. FALL SCREENING: Has the patient had 2 falls in the last year or 1 fall with injury or currently using an Ambulatory Assistive Device (Walker, Cane, Wheelchair, Crutches, etc.)? No PATIENT GENDER DATA: Assigned male at PATIENT RELEVANT IMPLANT DATA REVIEWED: Not Applicable PATIENT PRESENTS WITH AN IMPLANTABLE OR ATTACHED WATER RECLAMATION SYSTEMS OPERATOR: No RADIOLOGY DEPARTMENT: General X-ray: Exam(s) Completed: Upper Extremity X-Ray(s): Hand, left PERIPHERAL IV DATA: Not applicable SIGNED BY: RT Diomedes(R) December 05, 2024 10:41 [facility]04-09-2025 NoteHNO ID: [id number] Author: LISA QUINTANILLA MD Service: ? Author Type: Physician Type: Progress Notes Filed: 12/05/2024 11:44 Note Text: [facility] Subjective Ascencion Weir is a 74 year old male. Patient presents with: left hand pain: Left hand swelling x 2 weeks Patient was rolling up a peer conflict 2 weeks ago. As he slid his hand up the flag (not the pole), he felt sharp pain in his ulnar second metatarsal head area like he had been poked with something. He had no cut or bleeding but has since continued to have discomfort in the area. It is uncomfortable to flex the finger sometimes. Swelling has increased and today he notices a white spot on the palm at his second metatarsal head. Review of Systems Objective BP 128/70 Pulse 73 Temp 36.6 ?C (97.9 ?F) (Tympanic) Resp 16 Wt 92.8 kg (204 lb 9.4 oz) SpO2 97% BMI 31.11 kg/m? Physical Exam Constitutional: General: He is not in acute distress. Musculoskeletal: Hands: Comments: Mild edema left hand second finger proximal phalange and distal second metatarsal. No disruption of the skin or fluctuance. Irregular pain with flexion of the MCP joint. Tenderness palmar second metatarsal head. Neurological: Mental Status: He is alert. {ASSESSMENT/PLAN: 1. Swelling of hand joint, left - ICD9: 719.04, ICD10: M25.442 - XR HAND GENERAL 3V PA/LAT/OBL LEFT No acute fracture or dislocation identified. Phleboliths in the volar aspect of the palm. Well-corticated ossific density adjacent to the ulnar aspect of the third middle phalanx. No radiopaque foreign body. No obvious foreign body on exam or imaging. No skin break found at the time of injury. Occult foreign body (like thread splinter) is possible, but inflammation from finger strain/sprain favored based on exam. Shared decision making used for treatment plan: he will continue monitoring the finger, not take antibiotic, and follow up with orthopedics if symptoms are not improving. Lisa Quintanilla MD Differential Diagnoses - hand sprain/strain is more likely for the following reason(s): suggested by HANDP - infection is less likely for the following reason(s): exam not suggestive Additional Tests or Interventions The following medication(s) were considered but not ordered: [facility] History of Present illness Narrative* Lisa Quintanilla MD - 12/05/2024 10:34 AM EDT Images from the original note were not included. [facility] Subjective Ascencion Weir is a 74 year old male. Patient presents with: left hand pain: Left hand swelling x 2 weeks Patient was rolling up a peer conflict 2 weeks ago. As he slid his hand up the flag (not the pole),he felt sharp pain in his ulnar second metatarsal head area like he had been poked with something. He had no cut or bleeding but has since continued to have discomfort in the area. It is uncomfortable to flex the finger sometimes. Swelling has increased and today he notices a white spot on the palm at his second metatarsal head. Review of Systems Objective BP 128/70 Pulse 73 Temp 36.6 C (97.9 F) (Tympanic) Resp 16 Wt 92.8 kg (204 lb 9.4 oz) SpO2 97% BMI 31.11 kg/m Physical Exam Constitutional: General: He is not in acute distress. Musculoskeletal: Hands: Comments: Mild edema left hand second finger proximal phalange and distal second metatarsal. No disruption of the skin or fluctuance. Irregular pain with flexion of the MCP joint. Tenderness palmar second metatarsal head. Neurological: Mental Status: He is alert. {ASSESSMENT/PLAN: 1. Swelling of hand joint, left - ICD9: 719.04, ICD10: M25.442 - XR HAND GENERAL 3V PA/LAT/OBL LEFT No acute fracture or dislocation identified. Phleboliths in the volar aspect of the palm. Well-corticated ossific density adjacent to the ulnar aspect of the third middle phalanx. No radiopaque foreign body. No obvious foreign body on exam or imaging. No skin break found at the time of injury. Occult foreign body (like thread splinter) is possible, but inflammation from finger strain/sprain favored basedon exam. Shared decision making used for treatment plan: he will continue monitoring the finger, not take antibiotic, and follow up with orthopedics if symptoms are not improving. Lisa Quintanilla MD Differential Diagnoses - hand sprain/strain is more likely for the following reason(s): suggested by H&P - infection is less likely for the following reason(s): exam not suggestive Additional Tests or Interventions The following medication(s) were considered but not ordered: Keflex Procedures [facility] Telephone encounter Note * Telephone Encounter - Reyna Campbell RN - 12/03/2024 1:18 PM EDT Called patient. Gabapentin is three times per day, per patient. Not taking losartan Not taking Levemir Med list updated. [facility]04-07-2025 Miscellaneous Notes* Telephone Encounter - Reyna Campbell RN - 12/03/2024 1:18 PM EDT Called patient. Gabapentin is three times per day, per patient. Not taking losartan Not taking Levemir Med list updated. * Telephone Encounter - Genesis Lucas RN - 12/03/2024 12:09 PM EDT Pt LVM on nurse line this morning * Telephone Encounter - Kelley Reynolds RN - 11/30/2024 4:29 PM EDT Patient returned call and LVM on nurse line. * Telephone Encounter - Reyna Campbell RN - 11/30/2024 12:32 PM EDT Received cardiology office visit notes from [facility], [facility] 11/28/24 with Rod Maravilla MD. Placed cardiology office notes in Aaron Solorzano MD inbox to review. In the cardiology notes for [place] the following medication discrepancies were noted: They have the patient as taking the gabapentin 400 mg three times day, and [facility] EMR states he is taking it two times daily. They have the patient as taking losartan 25 mg daily, and [facility] EMR does not have that medication on his list. They have the patient as taking Levemir Flextouch units-100 10 unit subcutaneous QHS PRN and [facility] EMR does not have that medication on his list. Called patient at [phone] to clarify 1-3 above and add medications to EMR if needed. Left voicemail for patient to return call to clarify med list. Reyna Campbell RN documented in [facility] Telephone encounter Note * Telephone Encounter - Genesis Lucas RN - 12/03/2024 12:09 PM EDT Pt LVM on nurse line this morning [facility]04-04-20[facility] Telephone encounter Note* Telephone Encounter - Kelley Reynolds RN - 11/30/2024 4:29 PM EDT Patient returned call and LVM on nurse line. [facility]04-04-20[facility] Telephone encounter Note* Telephone Encounter - Reyna Campbell RN - 11/30/2024 12:32 PM EDT Received cardiology office visit notes from [facility], [facility] 11/28/24 with Rod Maravilla MD. Placed cardiology office notes in Aaron Solorzano MD inbox to review. In the cardiology notes for [place] the following medication discrepancies were noted: They have the patient as taking the gabapentin 400 mg three times day, and [facility] EMR states he is taking it two times daily. They have the patient as taking losartan 25 mg daily, and [facility] EMR does not have that medication on his list. They have the patient as taking Levemir Flextouch units-100 10 unit subcutaneous QHS PRN and [facility] EMR does not have that medication on his list. Called patient at [phone] to clarify 1-3 above and add medications to EMR if needed. Left voicemail for patient to return call to clarify med list. Reyna Campbell RN [facility]04-03-2025 Telephone encounter Note* Telephone Encounter - Aaron Solorzano MD - 11/29/2024 2:36 PM EDT The following approved medication requests have been transmitted electronically. Requested Prescriptions Signed Prescriptions Disp Refills traMADol (ULTRAM) 50 mg tablet 120 tablet 0 Sig: Take 1 tablet by mouth every 6 hours as needed for pain for up to 30 days. Authorizing Provider: AARON SOLORZANO MD [facility]04-03-2025 Miscellaneous Notes* Telephone Encounter - Aaron Solorzano MD - 11/29/2024 2:36 PM EDT The following approved medication requests have been transmitted electronically. Requested Prescriptions Signed Prescriptions Disp Refills traMADol (ULTRAM) 50 mg tablet 120 tablet 0 Sig: Take 1 tablet by mouth every 6 hours as needed for pain for up to 30 days. Authorizing Provider: AARON SOLORZANO MD * Telephone Encounter - Anju Crespo MA - 11/28/2024 2:59 PM EDT Pharmacy verified in Epic Patient has been identified by name and date of : Yes Patient aware RX will be sent to pharmacy. No need to notify patient. Patient phones for refill(s): Requested Prescriptions Pending Prescriptions Disp Refills traMADol (ULTRAM) 50 mg tablet 120 tablet 0 Sig: Take 1 tablet by mouth every 6 hours as needed for pain for up to 30 days. Date of last office visit : 11/08/2024 Date of next office visit : 02/11/2025 Last 2 Encounter Wt Readings: Date: Wt: 11/08/2024 90 kg (198 lb 6.6 oz) 08/13/2024 89 kg (196 lb 3.4 oz) Not applicable Please advise. Anju Crespo MA * Telephone Encounter - Aimee Almanza - 11/28/2024 1:28 PM EDT Prescription Refill Information The patient has been identified by name and date of : Yes Caregiver verified no other encounters exist for this prescription request: Yes Caregiver confirmed with patient/requestor that no other refills are due, in the near future, with this provider at this time: Yes The last office visit in the department: 11/08/2024 Does the patient have a future office visit with this provider/department: Yes Requested Prescriptions Pending Prescriptions Disp Refills traMADol (ULTRAM) 50 mg tablet 120 tablet 0 Sig: Take 1 tablet by mouth three times a day. Aimee Williamson November 28, 2024 1:31 PM [place] [id number] Evaluation note* Diagnosis Onset Date Resolution Status Admit Date Benign essential hypertension chroni c November 28, 2024 2:06pm Coronary artery disease chronic A pril 2024 2:06pm History of aortic valve replacement chronic November 28, 2024 2:06pm History of coronary artery bypass surgery April, chronic November 28, 2024 2:06pm HLD (hyperlipidemia) chronic Apri l 2024 2:06pm Type II diabetes mellitus chronic November 28, 2024 2:06pm Varicose veins of bilateral lower extremities with pain deleted Apri l 2024 2:06pm [facility] Work Phone: 1(967) 355-610804-02-2025 Telephone encounter Note* Telephone Encounter - Anju Crespo MA - 11/28/2024 2:59 PM EDT Pharmacy verified in [facility] Patient has been identified by name and date of : Yes Patient aware RX will be sent to pharmacy. No need to notify patient. Patient phones for refill(s): Requested Prescriptions Pending Prescriptions Disp Refills traMADol (ULTRAM) 50 mg tablet 120 tablet 0 Sig: Take 1 tablet by mouth every 6 hours as needed for pain for up to 30 days. Date of last office visit : 11/08/2024 Date of next office visit : 02/11/2025 Last 2 Encounter Wt Readings: Date: Wt: 11/08/2024 90 kg (198 lb 6.6 oz) 08/13/2024 89 kg (196 lb 3.4 oz) Not applicable Please advise. Anju Crespo MA [facility]04-02-2025 Telephone encounter Note* Telephone Encounter - Diogosohail Teri Aimee - 11/28/2024 1:28 PM EDT Prescription Refill Information The patient has been identified by name and date of : Yes Caregiver verified no other encounters exist for this prescription request: Yes Caregiver confirmed with patient/requestor that no other refills are due, in the near future, with this provider at this time: Yes The last office visit in the department: 11/08/2024 Does the patient have a future office visit with this provider/department: Yes Requested Prescriptions Pending Prescriptions Disp Refills traMADol (ULTRAM) 50 mg tablet 120 tablet 0 Sig: Take 1 tablet by mouth three times a day. Aimee Williamson November 28, 2024 1:31 PM [facility]03-24-2025 Telephone encounter Note* Telephone Encounter - Vernell Hernandez LPN - 11/19/2024 3:40 PM EDT Received evaluation from [facility]. Placed in provider's inbox for review. Route to [place] fax/scanning [facility]03-24-2025 Miscellaneous Notes* Telephone Encounter - Vernell Hernandez LPN - 11/19/2024 3:40 PM EDT Received evaluation from [facility]. Placed in provider's inbox for review. Route to [place] fax/scanning documented in this encounterC[facility]03-13-2025 NoteHNO ID: [id number] Author: AARON SOLORZANO MD Service: ? Author Type: Physician Type: Progress Notes Filed: 11/08/2024 14:00 Note Text: CHIEF COMPLAINT Patient presents with: Follow Up HISTORY OF PRESENT ILLNESS Ascencion Weir is a 74 year old male who presents here today for follow up on sleep apnea . I last saw this patient on 12/20/2023. Sleep Apnea - Was using cpap with benefit - Machine broke nearly 2 weeks ago - Needs order for new machine and supplies Balance - Reports stumbling - Denies any falls Health Maintenance Due for DTaP, Tdap, Td Vaccine (2- Td or Tdap) Due for Dilated Retinal Exam Due for Advance Directive Discussion Due for Shingrix Vaccine (1 of 2) Due for RSV Vaccine (1-1 dose 75+ series) Labs reviewed. Past medical history, appointments, medications, allergies reviewed. REVIEW OF SYSTEMS General: Feels well, no weight changes, fevers or chills. Neuro: +balance issues - stumbling HEENT: No sinus congestion, earache, sore throat. Cardiac: No chest pain, palpitations Resp: No cough, wheeze, shortness of breath GI: No reflux symptoms, food intolerance, bowel changes. : No urinary frequency, dysuria. MS: No pain or joint complaints. PAST MEDICAL HISTORY PAST MEDICAL HISTORY Diagnosis Date Aortic valvar stenosis Arthritis BPH (benign prostatic hyperplasia) HTN (hypertension) LIAN (obstructive sleep apnea) Other and unspecified disc disorder of unspecified region Intervertebral disc disorders Other and unspecified hyperlipidemia Sciatica Type II or unspecified type diabetes mellitus without mention of complication, not stated as uncontrolled PHYSICAL EXAMINATION BP 138/75 Pulse 75 Ht 172.7 cm (5' 7.99) Wt 90 kg (198 lb 6.6 oz) SpO2 98% BMI 30.18 kg/m? General: Alert, well developed, well nourished, no distress, pleasant and cooperative. Obese. Heart: Regular rate and rhythm. Normal S1 and S2. No murmurs, rubs, or gallops. Lungs: Clear to auscultation bilaterally. No respiratory distress. No wheezes, rales, or rhonchi. Abdomen: Soft, non-tender, no distention. Extremities: gait halting. Feet/ankles without edema, posterior tibial pulses full and symmetrical. Data Reviewed Latest Ref [facility] 08/13/2024 Protein, Total 6.3 - 8.0 g/dL 7.3 Albumin 3.9 - 4.9 g/dL 4.4 Calcium 8.5 - 10.2 mg/dL 9.3 Bilirubin, Total 0.2 - 1.3 mg/dL 0.2 Alkaline Phosphatase 38 - 113 U/L 93 AST 14 - 40 U/L 20 ALT 10 - 54 U/L 14 Glucose 74 - 99 mg/dL 95 BUN 9 - 24 mg/dL 17 Creatinine 0.73 - 1.22 mg/dL 0.93 Sodium 136 - 144 mmol/L 133 (L) Potassium 3.7 - 5.1 mmol/L 4.8 Chloride 98 - 107 mmol/L 97 (L) CO2 22 - 30 mmol/L 24 Anion Gap 8 - 15 mmol/L 12 eGFR >=60 mL/min/1.73m? 86 WBC 3.70 - 11.00 k/uL 6.03 RBC 4.20 - 6.00 m/uL 4.24 Hemoglobin 13.0 - 17.0 g/dL 12.7 (L) Hematocrit 39.0 - 51.0 % 37.5 (L) MCV 80.0 - 100.0 fL 88.4 MCH 26.0 - 34.0 pg 30.0 MCHC 30.5 - 36.0 g/dL 33.9 RDW-CV 11.5 - 15.0 % 12.4 Platelet Count 150 - 400 k/uL 197 MPV 9.0 - 12.7 fL 9.9 Absolute nRBC <0.01 k/uL <0.01 Cholesterol, Total <200 mg/dL 119 Triglyceride <150 mg/dL 81 HDL Cholesterol >39 mg/dL 38 (L) Non HDL Cholesterol <130 mg/dL 81 Fasting Time hrs unknown VLDL Cholesterol <30 mg/dL 16 TC:HDL Ratio <5.10 3.13 LDL Cholesterol <100 mg/dL 65 LDL:HDL Ratio <2.54 1.71 Creatinine, Ur Random (UCRR) 20.0 - 300.0 mg/dL 37.7 Albumin, Urine Random mg/L 18.5 Albumin/Creat Ratio <30 mg/g 49 (H) Hemoglobin A1C (POCT) 4.3 - 5.6 % 5.9 ! Legend: (L) Low (H) High ! Abnormal Assessment/Plan (G47.33) LIAN (obstructive sleep apnea) (primary encounter diagnosis) Comment: cpap beneficial. Machine broke. Order placed for new machine and supplies Plan: CPAP DEVICE (E11.40, Z79.4) Controlled type 2 diabetes mellitus with diabetic neuropathy, with long-term current use of insulin ([facility]) Comment: Good control. A1c 5.9% Plan: Continue current regimen (R26.89) Balance problem Comment: Ongoing, he is willing to go to PT, order placed. Plan: CONSULT TO PHYSICAL THERAPY Requested Prescriptions No prescriptions requested or ordered in this encounter RTO: 6 months or sooner as needed Scribe Attestation: By signing my name below, Sharon Gannon, attest that this documentation has been prepared under the direction and in the presence of Mike Solorzano M.D. Electronically Signed: Ana Luisa Colmenares. November 08, 2024 10:48 AM Provider Attestation: I, Aaron Solorzano MD, personally performed the services described in this documentation. All medical record entries made by the scribe were at my direction and in my telephonic presence. I have reviewed the chart and discharge instructions (if applicable), and agree that the record reflects my personal performance and is accurate and complete. Electronically Signed: Aaron Solorzano MD November 08, 2024 1:42 [facility]03-13-2025 History of Present illness Narrative* Aaron Solorzano MD - 11/08/2024 10:48 AM EDT CHIEF COMPLAINT Patient presents with: Follow Up HISTORY OF PRESENT ILLNESS Ascencion Weir is a 74 year old male who presents here today for follow up on sleep apnea . I last saw this patient on 12/20/2023. Sleep Apnea - Was using cpap with benefit - Machine broke nearly 2 weeks ago - Needs order for new machine and supplies Balance - Reports stumbling - Denies any falls Health Maintenance Due for DTaP, Tdap, Td Vaccine (2- Td or Tdap) Due for Dilated Retinal Exam Due for Advance Directive Discussion Due for Shingrix Vaccine (1 of 2) Due for RSV Vaccine (1-1 dose 75+ series) Labs reviewed. Past medical history, appointments, medications, allergies reviewed. REVIEW OF SYSTEMS General: Feels well, no weight changes, fevers or chills. Neuro: +balance issues - stumbling HEENT: No sinus congestion, earache, sore throat. Cardiac: No chest pain, palpitations Resp: No cough, wheeze, shortness of breath GI: No reflux symptoms, food intolerance, bowel changes. : No urinary frequency, dysuria. MS: No pain or joint complaints. PAST MEDICAL HISTORY PAST MEDICAL HISTORY Diagnosis Date Aortic valvar stenosis Arthritis BPH (benign prostatic hyperplasia) HTN (hypertension) LIAN (obstructive sleep apnea) Other and unspecified disc disorder of unspecified region Intervertebral disc disorders Other and unspecified hyperlipidemia Sciatica Type II or unspecified type diabetes mellitus without mention of complication, not stated as uncontrolled PHYSICAL EXAMINATION BP 138/75 Pulse 75 Ht 172.7 cm (5' 7.99) Wt 90 kg (198 lb 6.6 oz) SpO2 98% BMI 30.18 kg/m General: Alert, well developed, well nourished, no distress, pleasant and cooperative. Obese. Heart: Regular rate and rhythm. Normal S1 and S2. No murmurs, rubs, or gallops. Lungs: Clear to auscultation bilaterally. No respiratory distress. No wheezes, rales, or rhonchi. Abdomen: Soft, non-tender, no distention. Extremities: gait halting. Feet/ankles without edema, posterior tibial pulses full and symmetrical. Data Reviewed Latest Ref [facility] 08/13/2024 Protein, Total 6.3 - 8.0 g/dL 7.3 Albumin 3.9 - 4.9 g/dL 4.4 Calcium 8.5 - 10.2 mg/dL 9.3 Bilirubin, Total 0.2 - 1.3 mg/dL 0.2 Alkaline Phosphatase 38 - 113 U/L 93 AST 14 - 40 U/L 20 ALT 10 - 54 U/L 14 Glucose 74 - 99 mg/dL 95 BUN 9 - 24 mg/dL 17 Creatinine 0.73 - 1.22 mg/dL 0.93 Sodium 136 - 144 mmol/L 133 (L) Potassium 3.7 - 5.1 mmol/L 4.8 Chloride 98 - 107 mmol/L 97 (L) CO2 22 - 30 mmol/L 24 Anion Gap 8 - 15 mmol/L 12 eGFR >=60 mL/min/1.73m 86 WBC 3.70 - 11.00 k/uL 6.03 RBC 4.20 - 6.00 m/uL 4.24 Hemoglobin 13.0 - 17.0 g/dL 12.7 (L) Hematocrit 39.0 - 51.0 % 37.5 (L) MCV 80.0 - 100.0 fL 88.4 MCH 26.0 - 34.0 pg 30.0 MCHC 30.5 - 36.0 g/dL 33.9 RDW-CV 11.5 - 15.0 % 12.4 Platelet Count 150 - 400 k/uL 197 MPV 9.0 - 12.7 fL 9.9 Absolute nRBC <0.01 k/uL <0.01 Cholesterol, Total <200 mg/dL 119 Triglyceride <150 mg/dL 81 HDL Cholesterol >39 mg/dL 38 (L) Non HDL Cholesterol <130 mg/dL 81 Fasting Time hrs unknown VLDL Cholesterol <30 mg/dL 16 TC:HDL Ratio <5.10 3.13 LDL Cholesterol <100 mg/dL 65 LDL:HDL Ratio <2.54 1.71 Creatinine, Ur Random (UCRR) 20.0 - 300.0 mg/dL 37.7 Albumin, Urine Random mg/L 18.5 Albumin/Creat Ratio <30 mg/g 49 (H) Hemoglobin A1C (POCT) 4.3 - 5.6 % 5.9 ! Legend: (L) Low (H) High ! Abnormal Assessment/Plan (G47.33) LIAN (obstructive sleep apnea) (primary encounter diagnosis) Comment: cpap beneficial. Machine broke. Order placed for new machine and supplies Plan: CPAP DEVICE (E11.40, Z79.4) Controlled type 2 diabetes mellitus with diabetic neuropathy, with long-term current use of insulin ([facility]) Comment: Good control. A1c 5.9% Plan: Continue current regimen (R26.89) Balance problem Comment: Ongoing, he is willing to go to PT, order placed. Plan: CONSULT TO PHYSICAL THERAPY Requested Prescriptions No prescriptions requested or ordered in this encounter RTO: 6 months or sooner as needed Scribe Attestation: By signing my name below, Sharon Gannon, attest that this documentation has been prepared under the direction and in the presence of Mike Solorzano M.D. Electronically Signed: Ana Luisa Colmenares. November 08, 2024 10:48 AM Provider Attestation: Aaron Gannon MD, personally performed the services described in this documentation. All medical record entries made by the scribe were at my direction and in my telephonic presence. I have reviewed the chart and discharge instructions (if applicable), and agree that the record reflects my personal performance and is accurate and complete. Electronically Signed: Aaron Solorzano MD November 08, 2024 1:42 PM documented in this encounterC[facility]03-[facility] Telephone encounter Note * Telephone Encounter - Chrissy Haque - 11/06/2024 1:06 PM EDT Patient has been identified by name and date of : Yes Patient phones for refill(s): Requested Prescriptions Pending Prescriptions Disp Refills celecoxib (CELEBREX) 200 mg capsule 180 capsule 1 Sig: Take 1 capsule by mouth twice daily. Take with food. Date of last office visit in primary care: 08/13/2024 Date of next office visit in primary care: 11/08/2024 Please advise. Thank you. Chrissy Haque. [facility]03-11-2025 Miscellaneous Notes* Telephone Encounter - Chrissy Haque - 11/06/2024 1:06 PM EDT Patient has been identified by name and date of : Yes Patient phones for refill(s): Requested Prescriptions Pending Prescriptions Disp Refills celecoxib (CELEBREX) 200 mg capsule 180 capsule 1 Sig: Take 1 capsule by mouth twice daily. Take with food. Date of last office visit in primary care: 08/13/2024 Date of next office visit in primary care: 11/08/2024 Please advise. Thank you. Chrissy Haque. documented in this encounterC[facility]03-07-2025 Telephone encounter Note * Telephone Encounter - Aaron Solorzano MD - 11/02/2024 11:08 AM EST The following approved medication requests have been transmitted electronically. Requested Prescriptions Signed Prescriptions Disp Refills celecoxib (CELEBREX) 200 mg capsule 180 capsule 1 Sig: Take 1 capsule by mouth twice daily. Take with food. Authorizing Provider: AARON SOLORZANO MD [facility]03-07-2025 Miscellaneous Notes* Telephone Encounter - Aaron Solorzano MD - 11/02/2024 11:08 AM EST The following approved medication requests have been transmitted electronically. Requested Prescriptions Signed Prescriptions Disp Refills celecoxib (CELEBREX) 200 mg capsule 180 capsule 1 Sig: Take 1 capsule by mouth twice daily. Take with food. Authorizing Provider: AARON SOLORZANO MD * Telephone Encounter - Annalise Woodard LPN - 11/02/2024 8:42 AM EST Prescription Refill Information The patient has been identified by name and date of : Yes Caregiver verified no other encounters exist for this prescription request: Yes Caregiver confirmed with patient/requestor that no other refills are due, in the near future, with this provider at this time: Yes The last office visit in the department: 08/13/2024 Does the patient have a future office visit with this provider/department: Yes 02/11/2025 Requested Prescriptions Pending Prescriptions Disp Refills celecoxib (CELEBREX) 200 mg capsule [Pharmacy Med Name: celecoxib 200 mg capsule] 180 capsule 1 Sig: Take 1 capsule by mouth twice daily. Take with food. Annalise Woodard LPN November 02, 2024 8:42 AM documented in this encounterC[facility]03-[facility]-2025 Telephone encounter Note * Telephone Encounter - Annalise Woodard LPN - 11/02/2024 8:42 AM EST Prescription Refill Information The patient has been identified by name and date of : Yes Caregiver verified no other encounters exist for this prescription request: Yes Caregiver confirmed with patient/requestor that no other refills are due, in the near future, with this provider at this time: Yes The last office visit in the department: 08/13/2024 Does the patient have a future office visit with this provider/department: Yes 02/11/2025 Requested Prescriptions Pending Prescriptions Disp Refills celecoxib (CELEBREX) 200 mg capsule [Pharmacy Med Name: celecoxib 200 mg capsule] 180 capsule 1 Sig: Take 1 capsule by mouth twice daily. Take with food. Annalise Woodard LPN November 02, 2024 8:42 AM [facility]02-27-2025 Telephone encounter Note* Telephone Encounter - Ankita Donaldson MA - 10/25/2024 12:37 PM EST Pharmacy verified in [facility]. Patient has been identified by name and date of : Yes Patient aware RX will be sent to pharmacy. No need to notify patient. Patient phones for refill(s): Requested Prescriptions Pending Prescriptions Disp Refills tamsulosin (FLOMAX) 0.4 mg [Pharmacy Med Name: tamsulosin 0.4 mg capsule] 30 capsule 12 Sig: Take 1 capsule by mouth daily at bedtime. Date of last office visit : 08/13/2024 Date of next office visit : 02/11/2025 Last 2 Encounter Wt Readings: Date: Wt: 08/13/2024 89 kg (196 lb 3.4 oz) 05/19/2024 89 kg (196 lb 3.4 oz) Not applicable Please advise. Ankita Donaldson MA [facility]02-27-2025 Miscellaneous Notes* Telephone Encounter - Ankita Donaldson MA - 10/25/2024 12:37 PM EST Pharmacy verified in [facility]. Patient has been identified by name and date of : Yes Patient aware RX will be sent to pharmacy. No need to notify patient. Patient phones for refill(s): Requested Prescriptions Pending Prescriptions Disp Refills tamsulosin (FLOMAX) 0.4 mg [Pharmacy Med Name: tamsulosin 0.4 mg capsule] 30 capsule 12 Sig: Take 1 capsule by mouth daily at bedtime. Date of last office visit : 08/13/2024 Date of next office visit : 02/11/2025 Last 2 Encounter Wt Readings: Date: Wt: 08/13/2024 89 kg (196 lb 3.4 oz) 05/19/2024 89 kg (196 lb 3.4 oz) Not applicable Please advise. Ankita Donaldson MA documented in this encounterC[facility] Telephone encounter Note * Telephone Encounter - Amanda Baldwin - 09/14/2024 11:41 AM EST Prescription Refill Information The patient has been identified by name and date of : Yes Caregiver verified no other encounters exist for this prescription request: Yes Caregiver confirmed with patient/requestor that no other refills are due, in the near future, with this provider at this time: Yes The last office visit in the department: 08-13-24 Does the patient have a future office visit with this provider/department: Yes Requested Prescriptions Pending Prescriptions Disp Refills metoprolol succinate ER (TOPROL XL) 100 mg 45 tablet 3 Sig: Take 0.5 tablets by mouth once daily. Amanda Cano September 14, 2024 11:41 AM [facility]01-17-2025 Miscellaneous Notes* Telephone Encounter - Amanda Baldwin - 09/14/2024 11:41 AM EST Prescription Refill Information The patient has been identified by name and date of : Yes Caregiver verified no other encounters exist for this prescription request: Yes Caregiver confirmed with patient/requestor that no other refills are due, in the near future, with this provider at this time: Yes The last office visit in the department: 08-13-24 Does the patient have a future office visit with this provider/department: Yes Requested Prescriptions Pending Prescriptions Disp Refills metoprolol succinate ER (TOPROL XL) 100 mg 45 tablet 3 Sig: Take 0.5 tablets by mouth once daily. Amanda Fowler [facility] September 14, 2024 11:41 AM documented in this encounterC[facility]12-[facility]24 Telephone encounter Note * Telephone Encounter - Daxa Wing APRN.CNP - 08/15/2024 4:33 PM EST Patient is returning call to get lab results, please give him message: Let patient know that his labs are ok overall. Blood counts are slightly decreased again. Cholesterol is well controlled. Kidney and liver function is ok. Sodium remains slightly low as before Daxa Wing APRN.CNP [facility]12-18-2024 Miscellaneous Notes* Telephone Encounter - Daxa Wing APRN.NATHANAEL - 08/15/2024 4:33 PM EST Patient is returning call to get lab results, please give him message: Let patient know that his labs are ok overall. Blood counts are slightly decreased again. Cholesterol is well controlled. Kidney and liver function is ok. Sodium remains slightly low as before Daxa Wing APRN.CLIENT SERVICES MANAGER * Telephone Encounter - Kelley Reynolds RN - 08/15/2024 3:12 PM EST Patient called and LVM on nurse line, states returning call. No encounters currently open in chart. EULOGIO 08/13 with lab work Called and spoke with patient, reports expected the call to be with regard to lab results Stated would send over a message to provider. Please advise documented in this encounterC[facility]12-18-2024 Telephone encounter Note * Telephone Encounter - Kelley Reynolds RN - 08/15/2024 3:12 PM EST Patient called and LVM on nurse line, states returning call. No encounters currently open in chart. EULOGIO 08/13 with lab work Called and spoke with patient, reports expected the call to be with regard to lab results Stated would send over a message to provider. Please advise [facility]12-16-2024 NoteHNO ID: [id number] Author: DAXA WING APRN.NATHANAEL Service: ? Author Type: Nurse Practitioner Type: Progress Notes Filed: 08/13/2024 14:47 Note Text: This note was created using [employer]. Subjective Ascencion Weir is a 73 year old male. Patient here for [facility] care follow-up. DMII: A1C today 5.9%. Taking metformin only. Uses Levemir about 2-3x/month, usually 7-10 units, no sugars over 200. HTN: doesn't check BP's at home. Takes metoprolol daily. The history is provided by the patient. Review of Systems Eyes: Negative for visual disturbance. Respiratory: Negative for shortness of breath. Cardiovascular: Negative for chest pain. Gastrointestinal: Negative for abdominal pain. Neurological: Negative for dizziness and headaches. PAST MEDICAL HISTORY Diagnosis Date Aortic valvar stenosis Arthritis BPH (benign prostatic hyperplasia) HTN (hypertension) LIAN (obstructive sleep apnea) Other and unspecified disc disorder of unspecified region Intervertebral disc disorders Other and unspecified hyperlipidemia Sciatica Type II or unspecified type diabetes mellitus without mention of complication, not stated as uncontrolled PAST SURGICAL HISTORY Procedure Laterality Date ARTHRS KNEE ABRASION ARTHRP/FLARE MAKER DRLG/MICROFX 2013 and 2014 [facility] and Dr. Thrasher with Kneecap CARDIAC CATH 03/18/2020 [facility] I/D PERIANAL ABSCESS, SUPERFICIAL 08/13/08 PAST SURGICAL HISTORY OF 07/07 lumbar diskectomy PAST SURGICAL HISTORY OF Right 2015 TKR ALLERGIES Entex Pse [Pseudoephedrine-Guaifenesin] MEDICATIONS traMADol (ULTRAM) 50 mg tablet Take 1 tablet by mouth every 6 hours as needed for pain for up to 90 days. metFORMIN (GLUCOPHAGE) 1,000 mg tablet Take 1 tablet by mouth two times a day with meals. atorvastatin (LIPITOR) 20 mg tablet Take 1 tablet by mouth once daily. metoprolol succinate ER (TOPROL XL) 100 mg Take 0.5 tablets by mouth once daily. hydrOXYchloroQUINE (PLAQUENIL) 200 mg tablet Take 1 tablet by mouth every afternoon. celecoxib (CELEBREX) 200 mg capsule Take 1 capsule by mouth twice daily. Take with food. amoxicillin (AMOXIL) 500 mg capsule Take 4 capsules by mouth prior to dental procedure. blood sugar diagnostic (TRUE METRIX GLUCOSE TEST STRIP) test strip Test blood sugar(s) 3 times daily. Insulin: Yes tamsulosin (FLOMAX) 0.4 mg Take 1 capsule by mouth daily at bedtime. Lancets lancets Test blood sugar(s) 4 times daily. Dx: Type 2 DM - Controlled E11.9 Insulin: Yes CPAP Initiate CPAP @ 7 cm of water with humidification. Mask (per patient preference) optional chin strap (if indicated) , filters, tubing, humidifier and lifetime supplies. aspirin, enteric coated (ADULT ASPIRIN EC LOW STRENGTH) 81 mg EC tablet Take 1 tablet by mouth every 48 hours. COMPOUNDED PRESCRIPTION Accu-chek Lois Meter with multiclix lancet device use as directed gabapentin (NEURONTIN) 400 mg capsule Take 1 capsule by mouth two times a day for 180 days. FAMILY HISTORY Problem Relation Age of Onset Arthritis Mother other (AMI) Mother Asthma Father other (RI) Father No Known Problems Daughter No Known Problems Daughter Social History Tobacco Use Smoking status: Former Current packs/day: 0.00 Types: Cigarettes Quit date: 09/12/1994 Years since quittin.9 Smokeless tobacco: Never Tobacco comments: No one in household smokes Vaping Use Vaping status: Never Used Substance Use Topics Alcohol use: No Drug use: No Objective BP 135/57 Pulse 76 Wt 89 kg (196 lb 3.4 oz) BMI 29.84 kg/m? BP 130/56 (BP Site: Left Arm, BP Position: Sitting, BP Cuff Size: Large Adult) Pulse 76 Wt 89 kg (196 lb 3.4 oz) BMI 29.84 kg/m? Physical Exam Vitals and nursing note reviewed. Constitutional: Appearance: He is well-developed. He is obese. He is not ill-appearing. Cardiovascular: Rate and Rhythm: Normal rate and regular rhythm. Heart sounds: Normal heart sounds. Pulmonary: Effort: Pulmonary effort is normal. Breath sounds: Normal breath sounds. Skin: General: Skin is warm and dry. Neurological: Mental Status: He is alert and oriented to person, place, and time. Psychiatric: Mood and Affect: Mood normal. Assessment and Plan 1. Controlled type 2 diabetes mellitus with diabetic neuropathy, with long-term current use of insulin (HCC) Well controlled, hold insulin and continue metformin and diet changes only. - HEMOGLOBIN A1C (POC) - COMPLETE BLOOD COUNT - ALBUMIN/CREATININE RATIO, URINE 2. Essential hypertension, benign Controlled, continue current medication. - COMPREHENSIVE METABOLIC PANEL 3. Mixed hyperlipidemia Fasting labs to recheck today. - COMPREHENSIVE METABOLIC PANEL - LIPID PANEL BASIC [facility]axa Wing [facility] History of Present illness Narrative* Daxa Wing APRN.NATHANAEL - 08/13/2024 2:07 PM EST This note was created using NoteWriter. Subjective Ascencion Weir is a 73 year old male. Patient here for [facility] care follow-up. DMII: A1C today 5.9%. Taking metformin only. Uses Levemir about 2-3x/month, usually 7-10 units, no sugars over 200. HTN: doesn't check BP's at home. Takes metoprolol daily. The history is provided by the patient. Review of Systems Eyes: Negative for visual disturbance. Respiratory: Negative for shortness of breath. Cardiovascular: Negative for chest pain. Gastrointestinal: Negative for abdominal pain. Neurological: Negative for dizziness and headaches. PAST MEDICAL HISTORY Diagnosis Date Aortic valvar stenosis Arthritis BPH (benign prostatic hyperplasia) HTN (hypertension) LIAN (obstructive sleep apnea) Other and unspecified disc disorder of unspecified region Intervertebral disc disorders Other and unspecified hyperlipidemia Sciatica Type II or unspecified type diabetes mellitus without mention of complication, not stated as uncontrolled PAST SURGICAL HISTORY Procedure Laterality Date ARTHRS KNEE ABRASION ARTHRP/FLARE MAKER DRLG/MICROFX 2013 and 2014 [facility] and Dr. Thrasher with Kneecap CARDIAC CATH 03/18/2020 [facility] I/D PERIANAL ABSCESS, SUPERFICIAL 08/13/08 PAST SURGICAL HISTORY OF 07/07 lumbar diskectomy PAST SURGICAL HISTORY OF Right 2015 TKR ALLERGIES Entex Pse [Pseudoephedrine-Guaifenesin] MEDICATIONS traMADol (ULTRAM) 50 mg tablet Take 1 tablet by mouth every 6 hours as needed for pain for up to 90days. metFORMIN (GLUCOPHAGE) 1,000 mg tablet Take 1 tablet by mouth two times a day with meals. atorvastatin (LIPITOR) 20 mg tablet Take 1 tablet by mouth once daily. metoprolol succinate ER (TOPROL XL) 100 mg Take 0.5 tablets by mouth once daily. hydrOXYchloroQUINE (PLAQUENIL) 200 mg tablet Take 1 tablet by mouth every afternoon. celecoxib (CELEBREX) 200 mg capsule Take 1 capsule by mouth twice daily. Take with food. amoxicillin (AMOXIL) 500 mg capsule Take 4 capsules by mouth prior to dental procedure. blood sugar diagnostic (TRUE METRIX GLUCOSE TEST STRIP) test strip Test blood sugar(s) 3 times daily. Insulin: Yes tamsulosin (FLOMAX) 0.4 mg Take 1 capsule by mouth daily at bedtime. Lancets lancets Test blood sugar(s) 4 times daily. Dx: Type 2 DM - Controlled E11.9 Insulin: Yes CPAP Initiate CPAP @ 7 cm of water with humidification. Mask (per patient preference) optional chinstrap (if indicated) , filters, tubing, humidifier and lifetime supplies. aspirin, enteric coated (ADULT ASPIRIN EC LOW STRENGTH) 81 mg EC tablet Take 1 tablet by mouth every 48 hours. COMPOUNDED PRESCRIPTION Accu-chek Lois Meter with multiclix lancet device use as directed gabapentin (NEURONTIN) 400 mg capsule Take 1 capsule by mouth two times a day for 180 days. FAMILY HISTORY Problem Relation Age of Onset Arthritis Mother other (AMI) Mother Asthma Father other (RI) Father No Known Problems Daughter No Known Problems Daughter Social History Tobacco Use Smoking status: Former Current packs/day: 0.00 Types: Cigarettes Quit date: 09/12/1994 Years since quittin.9 Smokeless tobacco: Never Tobacco comments: No one in household smokes Vaping Use Vaping status: Never Used Substance Use Topics Alcohol use: No Drug use: No Objective BP 135/57 Pulse 76 Wt 89 kg (196 lb 3.4 oz) BMI 29.84 kg/m BP 130/56 (BP Site: Left Arm, BP Position: Sitting, BP Cuff Size: Large Adult) Pulse 76 Wt 89 kg (196 lb 3.4 oz) BMI 29.84 kg/m Physical Exam Vitals and nursing note reviewed. Constitutional: Appearance: He is well-developed. He is obese. He is not ill-appearing. Cardiovascular: Rate and Rhythm: Normal rate and regular rhythm. Heart sounds: Normal heart sounds. Pulmonary: Effort: Pulmonary effort is normal. Breath sounds: Normal breath sounds. Skin: General: Skin is warm and dry. Neurological: Mental Status: He is alert and oriented to person, place, and time. Psychiatric: Mood and Affect: Mood normal. Assessment and Plan 1. Controlled type 2 diabetes mellitus with diabetic neuropathy, with long-term current use of insulin (HCC) Well controlled, hold insulin and continue metformin and diet changes only. - HEMOGLOBIN A1C (POC) - COMPLETE BLOOD COUNT - ALBUMIN/CREATININE RATIO, URINE 2. Essential hypertension, benign Controlled, continue current medication. - COMPREHENSIVE METABOLIC PANEL 3. Mixed hyperlipidemia Fasting labs to recheck today. - COMPREHENSIVE METABOLIC PANEL - LIPID PANEL BASIC Daxa Wing APRN.CLIENT SERVICES MANAGER documented in this encounterC[facility]12-[facility]-2024 Telephone encounter Note * Telephone Encounter - Daxa Wing APRN.CNP - 08/09/2024 5:00 PM EST Noted, will see Tuesday and send medication at that time Daxa Wing APRN.NATHANAEL [facility]12-12-2024 Miscellaneous Notes* Telephone Encounter - Daxa Wing APRN.CNP - 08/09/2024 5:00 PM EST Noted, will see Tuesday and send medication at that time Daxa Wing APRN.NATHANAEL * Telephone Encounter - Kelley Reynolds RN - 08/09/2024 4:13 PM EST Patient returned call and LVM on nurse line. Called and spoke with patient Patient has been using up the remainder of Levemir box he had. Reports he has been watching sugar intake and has not been using Levemir daily. States glucose ranges most days between 80-90. Scheduled OV for Tuesday * Telephone Encounter - Vernell Hernandez LPN - 08/09/2024 1:10 PM EST Called pt, left vm requesting return phone call. * Telephone Encounter - Daxa Wing APRN.CNP - 08/09/2024 12:26 PM EST This medication was discontinued in September because his insurance no longer covered it and was switched to Semglee (glargine) at that time. Did he have old detemir that he was using up until now? Patient is long overdue for a diabetes follow-up visit, please schedule KEVIN with either provider. Also due for fasting labs and urine, orders placed, please get done prior to visit for discussion of results. Daxa Wing APRN.NATHANAEL * Telephone Encounter - Vernell Hernandez LPN - 08/09/2024 11:30 AM EST Rx pended please advise * Telephone Encounter - Aimee Almanza - 08/09/2024 11:14 AM EST Ascencion is calling Aaron Solorzano MD today to request medication not on current med list Insulin detemir units-100 Levemir 110 unit/mL injection Drug Malo Avel on Anali Cade Patient has been identified by name and birthdate. Duration of symptoms: N/A Person calling: self Call patient at: at home [phone] (home) Was an appointment scheduled: No Closing statement: Results or non-symptom based questions: Thank you for calling [facility], your call will be returned within the next business day. Aimee Williamson documented in this encounterC[facility] Clinic [facility]12-12-2024 Telephone encounter Note * Telephone Encounter - Kelley Reynolds RN - 08/09/2024 4:13 PM EST Patient returned call and LVM on nurse line. Called and spoke with patient Patient has been using up the remainder of Levemir box he had. Reports he has been watching sugar intake and has not been using Levemir daily. States glucose ranges most days between 80-90. Scheduled OV for Tuesday [facility]12-12-2024 Telephone encounter Note* Telephone Encounter - Vernell Hernandez LPN - 08/09/2024 1:10 PM EST Called pt, left vm requesting return phone call. [facility]12-12-2024 Telephone encounter Note* Telephone Encounter - Daxa Wing APRN.CNP - 08/09/2024 12:26 PM EST This medication was discontinued in September because his insurance no longer covered it and was switched to Semglee (glargine) at that time. Did he have old detemir that he was using up until now? Patient is long overdue for a diabetes follow-up visit, please schedule KEVIN with either provider. Also due for fasting labs and urine, orders placed, please get done prior to visit for discussion of results. Daxa Wing APRN.CNP [facility]12-12-2024 Telephone encounter Note* Telephone Encounter - Vernell Hernandez LPN - 08/09/2024 11:30 AM EST Rx pended please advise [facility]12-12-2024 Telephone encounter Note* Telephone Encounter - Aimee Almanza - 08/09/2024 11:20 AM EST Prescription Refill Information The patient has been identified by name and date of : Yes Caregiver verified no other encounters exist for this prescription request: Yes Caregiver confirmed with patient/requestor that no other refills are due, in the near future, with this provider at this time: Yes The last office visit in the department: 12/20/2023 Does the patient have a future office visit with this provider/department: no Requested Prescriptions Pending Prescriptions Disp Refills traMADol (ULTRAM) 50 mg tablet 120 tablet 2 Sig: Take 1 tablet by mouth every 6 hours as needed for pain for up to 90 days. Aimee Williamson August 09, 2024 11:20 AM [place] [address]-12-2024 Miscellaneous Notes* Telephone Encounter - Aimee Almanza - 08/09/2024 11:20 AM EST Prescription Refill Information The patient has been identified by name and date of : Yes Caregiver verified no other encounters exist for this prescription request: Yes Caregiver confirmed with patient/requestor that no other refills are due, in the near future, with this provider at this time: Yes The last office visit in the department: 12/20/2023 Does the patient have a future office visit with this provider/department: no Requested Prescriptions Pending Prescriptions Disp Refills traMADol (ULTRAM) 50 mg tablet 120 tablet 2 Sig: Take 1 tablet by mouth every 6 hours as needed for pain for up to 90 days. Aimee Williamson August 09, 2024 11:20 AM documented in this encounterC[facility]12-12-2024 Telephone encounter Note * Telephone Encounter - Aimee Almanza - 08/09/2024 11:14 AM EST Ascencion is calling Aaron Solorzano MD today to request medication not on current med list Insulin detemir units-100 Levemir 110 unit/mL injection Drug Malo Avel on Anali Cade Patient has been identified by name and birthdate. Duration of symptoms: N/A Person calling: self Call patient at: at home [phone] (home) Was an appointment scheduled: No Closing statement: Results or non-symptom based questions: Thank you for calling [facility], your call will be returned within the next business day. Aimee Williamson [facility]12-10-2024 Telephone encounter Note* Telephone Encounter - Ariadna Hughes LPN - 08/07/2024 8:39 AM EST Refills sent 08/02/24. [facility]12-10-2024 Miscellaneous Notes* Telephone Encounter - Ariadna Hughes LPN - 08/07/2024 8:39 AM EST Refills sent 08/02/24. documented in this encounterC[facility]12-05-2024 Telephone encounter Note * Telephone Encounter - Aaron Solorzano MD - 08/02/2024 10:42 AM EST The following approved medication requests have been transmitted electronically. Requested Prescriptions Signed Prescriptions Disp Refills traMADol (ULTRAM) 50 mg tablet 120 tablet 2 Sig: Take 1 tablet by mouth every 6 hours as needed for pain for up to 90 days. Authorizing Provider: AARON SOLORZANO metFORMIN (GLUCOPHAGE) 1,000 mg tablet 180 tablet 1 Sig: Take 1 tablet by mouth two times a day with meals. Authorizing Provider: AARON SOLORZANO MD [facility]12-05-2024 Miscellaneous Notes* Telephone Encounter - Aaron Solorzano MD - 08/02/2024 10:42 AM EST The following approved medication requests have been transmitted electronically. Requested Prescriptions Signed Prescriptions Disp Refills traMADol (ULTRAM) 50 mg tablet 120 tablet 2 Sig: Take 1 tablet by mouth every 6 hours as needed for pain for up to 90 days. Authorizing Provider: AARON SOLORZANO metFORMIN (GLUCOPHAGE) 1,000 mg tablet 180 tablet 1 Sig: Take 1 tablet by mouth two times a day with meals. Authorizing Provider: AARON SOLORZANO MD * Telephone Encounter - Annalise Woodard LPN - 08/02/2024 9:10 AM EST Prescription Refill Information The patient has been identified by name and date of : Yes Caregiver verified no other encounters exist for this prescription request: Yes Caregiver confirmed with patient/requestor that no other refills are due, in the near future, with this provider at this time: Yes The last office visit in the department: 12/20/2023 Does the patient have a future office visit with this provider/department: No Requested Prescriptions Pending Prescriptions Disp Refills traMADol (ULTRAM) 50 mg tablet [Pharmacy Med Name: tramadol 50 mg tablet] 120 tablet 2 Sig: Take 1 tablet by mouth every 6 hours as needed for pain. metFORMIN (GLUCOPHAGE) 1,000 mg tablet 180 tablet 1 Sig: Take 1 tablet by mouth two times a day with meals. Annalise Woodard LPN August 02, 2024 9:10 AM documented in this encounterCleveland [facility]12-05-2024 Telephone encounter Note * Telephone Encounter - Annalise Woodard LPN - 08/02/2024 9:10 AM EST Prescription Refill Information The patient has been identified by name and date of : Yes Caregiver verified no other encounters exist for this prescription request: Yes Caregiver confirmed with patient/requestor that no other refills are due, in the near future, with this provider at this time: Yes The last office visit in the department: 12/20/2023 Does the patient have a future office visit with this provider/department: No Requested Prescriptions Pending Prescriptions Disp Refills traMADol (ULTRAM) 50 mg tablet [Pharmacy Med Name: tramadol 50 mg tablet] 120 tablet 2 Sig: Take 1 tablet by mouth every 6 hours as needed for pain. metFORMIN (GLUCOPHAGE) 1,000 mg tablet 180 tablet 1 Sig: Take 1 tablet by mouth two times a day with meals. Annalise Woodard LPN August 02, 2024 9:10 AM [facility]11-15-2024 Telephone encounter Note* Telephone Encounter - Aaron Solorzano MD - 07/13/2024 10:36 AM EST The following approved medication requests have been transmitted electronically. Requested Prescriptions Signed Prescriptions Disp Refills atorvastatin (LIPITOR) 20 mg tablet 90 tablet 2 Sig: Take 1 tablet by mouth once daily. Authorizing Provider: AARON SOLORZANO metoprolol succinate ER (TOPROL XL) 100 mg 45 tablet 3 Sig: Take 0.5 tablets by mouth once daily. Authorizing Provider: AARON SOLORZANO MD [facility]11-15-2024 Miscellaneous Notes* Telephone Encounter - Aaron Solorzano MD - 07/13/2024 10:36 AM EST The following approved medication requests have been transmitted electronically. Requested Prescriptions Signed Prescriptions Disp Refills atorvastatin (LIPITOR) 20 mg tablet 90 tablet 2 Sig: Take 1 tablet by mouth once daily. Authorizing Provider: AARON SOLORZANO metoprolol succinate ER (TOPROL XL) 100 mg 45 tablet 3 Sig: Take 0.5 tablets by mouth once daily. Authorizing Provider: AARON SOLORZANO MD * Telephone Encounter - Annalise Woodard LPN - 07/13/2024 10:03 AM EST Prescription Refill Information The patient has been identified by name and date of : Yes Caregiver verified no other encounters exist for this prescription request: Yes Caregiver confirmed with patient/requestor that no other refills are due, in the near future, with this provider at this time: Yes The last office visit in the department: 11/30/2023 Does the patient have a future office visit with this provider/department: No Requested Prescriptions Pending Prescriptions Disp Refills atorvastatin (LIPITOR) 20 mg tablet [Pharmacy Med Name: atorvastatin 20 mg tablet] 90 tablet 2 Sig: Take 1 tablet by mouth once daily. metoprolol succinate ER (TOPROL XL) 100 mg 45 tablet 3 Sig: Take 0.5 tablets by mouth once daily. Annalise Woodard LPN July 13, 2024 10:03 AM [facility] Telephone encounter Note * Telephone Encounter - Annalise Woodard LPN - 07/13/2024 10:03 AM EST Prescription Refill Information The patient has been identified by name and date of : Yes Caregiver verified no other encounters exist for this prescription request: Yes Caregiver confirmed with patient/requestor that no other refills are due, in the near future, with this provider at this time: Yes The last office visit in the department: 11/30/2023 Does the patient have a future office visit with this provider/department: No Requested Prescriptions Pending Prescriptions Disp Refills atorvastatin (LIPITOR) 20 mg tablet [Pharmacy Med Name: atorvastatin 20 mg tablet] 90 tablet 2 Sig: Take 1 tablet by mouth once daily. metoprolol succinate ER (TOPROL XL) 100 mg 45 tablet 3 Sig: Take 0.5 tablets by mouth once daily. Annalise Woodard LPN July 13, 2024 10:03 AM [facility]11-11-2024 Telephone encounter Note* Telephone Encounter - Deneen Donato - 07/09/2024 9:57 AM EST Patient has been identified by name and date of : Yes Last office visit in this department: 05/19/2024 RX INSTRUCTIONS: Patient aware RX will be sent to pharmacy. No need to notify patient. Patient phones requesting refills as follows: Requested Prescriptions Pending Prescriptions Disp Refills hydrOXYchloroQUINE (PLAQUENIL) 200 mg tablet 90 tablet 1 Sig: Take 1 tablet by mouth every afternoon. Please review and advise. Deneen Donato [facility]11-11-2024 Miscellaneous Notes* Telephone Encounter - Deneen Donato - 07/09/2024 9:57 AM EST Patient has been identified by name and date of : Yes Last office visit in this department: 05/19/2024 RX INSTRUCTIONS: Patient aware RX will be sent to pharmacy. No need to notify patient. Patient phones requesting refills as follows: Requested Prescriptions Pending Prescriptions Disp Refills hydrOXYchloroQUINE (PLAQUENIL) 200 mg tablet 90 tablet 1 Sig: Take 1 tablet by mouth every afternoon. Please review and advise. Deneen Donato documented [facility] Telephone encounter Note * Telephone Encounter - Vernell Hernandez LPN - 05/31/2024 2:41 PM EDT Received visit summary from [facility]. Placed in provider's inbox for review. Route to [place] scanning [facility]10-03-2024 Miscellaneous Notes* Telephone Encounter - Vernell Hernandez LPN - 05/31/2024 2:41 PM EDT Received visit summary from [facility]. Placed in provider's inbox for review. Route to [place] scanning documented in this encounterC[facility]09-21-2024 NoteHNO ID: [id number] Author: LISA QUINTANILLA MD Service: ? Author Type: Physician Type: Progress Notes Filed: 05/19/2024 10:53 Note Text: Patient presents with: Rash: itching x 1 week, on back and arms HPI: Rash: Location: arms, right buttock Duration: 1 week after falling into weeds he was cutting Pruritis: Yes Pain: Yes Change: NO Bleeding/ulceration/blister/pustule: red bumps Contacts with rash: No Exposure: Outdoor exposure: yes. Recent illness: No. Treatment: neosporin MEDICATIONS: celecoxib (CELEBREX) 200 mg capsule Take 1 capsule by mouth twice daily. Take with food. traMADol (ULTRAM) 50 mg tablet Take 1 tablet by mouth every 6 hours as needed for pain for up to 90 days. gabapentin (NEURONTIN) 400 mg capsule Take 1 capsule by mouth three times a day for 180 days. amoxicillin (AMOXIL) 500 mg capsule Take 4 capsules by mouth prior to dental procedure. metFORMIN (GLUCOPHAGE) 1,000 mg tablet Take 1 tablet by mouth two times a day with meals. blood sugar diagnostic (TRUE METRIX GLUCOSE TEST STRIP) test strip Test blood sugar(s) 3 times daily. Insulin: Yes hydrOXYchloroQUINE (PLAQUENIL) 200 mg tablet Take 1 tablet by mouth every afternoon. tamsulosin (FLOMAX) 0.4 mg Take 1 capsule by mouth daily at bedtime. atorvastatin (LIPITOR) 20 mg tablet Take 1 tablet by mouth once daily. metoprolol succinate ER (TOPROL XL) 100 mg Take 0.5 tablets by mouth once daily. CPAP Initiate CPAP @ 7 cm of water with humidification. Mask (per patient preference) optional chin strap (if indicated) , filters, tubing, humidifier and lifetime supplies. aspirin, enteric coated (ADULT ASPIRIN EC LOW STRENGTH) 81 mg EC tablet Take 1 tablet by mouth every 48 hours. COMPOUNDED PRESCRIPTION Accu-chek Lois Meter with multiclix lancet device use as directed insulin glargine-yfgn (SEMGLEE,INSULIN GLARG-YFGN,PEN) 100 unit/mL (3 mL) insulin pen Inject 14 Units subcutaneously daily at bedtime. (Patient not taking: Reported on 05/19/2024) gabapentin (NEURONTIN) 400 mg capsule Take 1 (ONE) capsule by mouth three times daily (Patient not taking: Reported on 10/17/2023) Insulin Syringe-Needle U-100 (BD ULTRAFINE INSULIN) 1 mL 31 gauge x 5/16 Use as directed once daily with insulin DX: E11.65 DM: yes Insulin: yes (Patient not taking: Reported on 05/19/2024) Lancets lancets Test blood sugar(s) 4 times daily. Dx: Type 2 DM - Controlled E11.9 Insulin: Yes multivitamin tablet Take 1 tablet by mouth once daily. (Patient not taking: Reported on 06/16/2023) ALLERGIES: ALLERGIES Allergen Reactions Entex Pse [Pseudoep* Intolerance Patient states he does not have any allergies VITALS: BP 134/76 Pulse 62 Temp 36.8 ?C (98.2 ?F) Resp 16 Wt 89 kg (196 lb 3.4 oz) SpO2 98% BMI 29.84 kg/m? PHYSICAL EXAM: GEN: pleasant, no acute distress, alert, hard of hearing SKIN: few raised erythematous papules/patches above and below the antecubital areas of both arms. There are some healing shallow ulcerations/abrasions on the dorsal left forearm. Erythematous patches up to 8cm on the right mid to upper buttock extending toward the lateral trochanter. Latest Ref Rng 07/05/2023 Hemoglobin A1C 4.3 - 5.6 % 5.8 (H) ASSESSMENT/PLAN: 1. Rash - ICD9: 782.1, ICD10: R21 Lesions on the arm appear as typical contact allergic dermatitis from plants. By report the patch on his buttock occurred over the same time but may be shingles due to dermatomal distribution. The buttock rash is in the healing phase and VZV swab would have high false-negative rate. - TRIAMCINOLONE ACETONIDE 0.1 % TOPICAL CREAM may be applied to all rash. He is already taking gabapentin. Follow-up with PCP if rash is not improving. Lisa Quintanilla, [facility]09-21-2024 History of Present illness Narrative* Lisa Quintanilla MD - 05/19/2024 10:32 AM EDT Patient presents with: Rash: itching x 1 week, on back and arms HPI: Rash: Location: arms, right buttock Duration: 1 week after falling into weeds he was cutting Pruritis: Yes Pain: Yes Change: NO Bleeding/ulceration/blister/pustule: red bumps Contacts with rash: No Exposure: Outdoor exposure: yes. Recent illness: No. Treatment: neosporin MEDICATIONS: celecoxib (CELEBREX) 200 mg capsule Take 1 capsule by mouth twice daily. Take with food. traMADol (ULTRAM) 50 mg tablet Take 1 tablet by mouth every 6 hours as needed for pain for up to 90days. gabapentin (NEURONTIN) 400 mg capsule Take 1 capsule by mouth three times a day for 180 days. amoxicillin (AMOXIL) 500 mg capsule Take 4 capsules by mouth prior to dental procedure. metFORMIN (GLUCOPHAGE) 1,000 mg tablet Take 1 tablet by mouth two times a day with meals. blood sugar diagnostic (TRUE METRIX GLUCOSE TEST STRIP) test strip Test blood sugar(s) 3 times daily. Insulin: Yes hydrOXYchloroQUINE (PLAQUENIL) 200 mg tablet Take 1 tablet by mouth every afternoon. tamsulosin (FLOMAX) 0.4 mg Take 1 capsule by mouth daily at bedtime. atorvastatin (LIPITOR) 20 mg tablet Take 1 tablet by mouth once daily. metoprolol succinate ER (TOPROL XL) 100 mg Take 0.5 tablets by mouth once daily. CPAP Initiate CPAP @ 7 cm of water with humidification. Mask (per patient preference) optional chinstrap (if indicated) , filters, tubing, humidifier and lifetime supplies. aspirin, enteric coated (ADULT ASPIRIN EC LOW STRENGTH) 81 mg EC tablet Take 1 tablet by mouth every 48 hours. COMPOUNDED PRESCRIPTION Accu-chek Lois Meter with multiclix lancet device use as directed insulin glargine-yfgn (SEMGLEE,INSULIN GLARG-YFGN,PEN) 100 unit/mL (3 mL) insulin pen Inject 14 Units subcutaneously daily at bedtime. (Patient not taking: Reported on 05/19/2024) gabapentin (NEURONTIN) 400 mg capsule Take 1 (ONE) capsule by mouth three times daily (Patient not taking: Reported on 10/17/2023) Insulin Syringe-Needle U-100 (BD ULTRAFINE INSULIN) 1 mL 31 gauge x 5/16 Use as directed once dailywith insulin DX: E11.65 DM: yes Insulin: yes (Patient not taking: Reported on 05/19/2024) Lancets lancets Test blood sugar(s) 4 times daily. Dx: Type 2 DM - Controlled E11.9 Insulin: Yes multivitamin tablet Take 1 tablet by mouth once daily. (Patient not taking: Reported on 06/16/2023) ALLERGIES: ALLERGIES Allergen Reactions Entex Pse [Pseudoep* Intolerance Patient states he does not have any allergies VITALS: BP 134/76 Pulse 62 Temp 36.8 C (98.2 F) Resp 16 Wt 89 kg (196 lb 3.4 oz) SpO2 98% BMI 29.84 kg/m PHYSICAL EXAM: GEN: pleasant, no acute distress, alert, hard of hearing SKIN: few raised erythematous papules/patches above and below the antecubital areas of both arms. There are some healing shallow ulcerations/abrasions on the dorsal left forearm. Erythematous patchesup to 8cm on the right mid to upper buttock extending toward the lateral trochanter. Latest Ref Rng 07/05/2023 Hemoglobin A1C 4.3 - 5.6 % 5.8 (H) ASSESSMENT/PLAN: 1. Rash - ICD9: 782.1, ICD10: R21 Lesions on the arm appear as typical contact allergic dermatitis from plants. By report the patch on his buttock occurred over the same time but may be shingles due to dermatomal distribution. The buttock rash is in the healing phase and VZV swab would have high false-negative rate. - TRIAMCINOLONE ACETONIDE 0.1 % TOPICAL CREAM may be applied to all rash. He is already taking gabapentin. Follow-up with PCP if rash is not improving. Lisa Quintanilla MD documented in this encounterC[facility]09-[facility]24 Telephone encounter Note * Telephone Encounter - Aaron Solorzano MD - 05/04/2024 4:01 PM EDT The following approved medication requests have been transmitted electronically. Requested Prescriptions Pending Prescriptions Disp Refills celecoxib (CELEBREX) 200 mg capsule 180 capsule 1 Sig: Take 1 capsule by mouth twice daily. Take with food. Signed Prescriptions Disp Refills traMADol (ULTRAM) 50 mg tablet 120 tablet 2 Sig: Take 1 tablet by mouth every 6 hours as needed for pain for up to 90 days. Authorizing Provider: AARON SOLORZANO MD [facility]09-06-2024 Miscellaneous Notes* Telephone Encounter - Aaron Solorzano MD - 05/04/2024 4:01 PM EDT The following approved medication requests have been transmitted electronically. Requested Prescriptions Pending Prescriptions Disp Refills celecoxib (CELEBREX) 200 mg capsule 180 capsule 1 Sig: Take 1 capsule by mouth twice daily. Take with food. Signed Prescriptions Disp Refills traMADol (ULTRAM) 50 mg tablet 120 tablet 2 Sig: Take 1 tablet by mouth every 6 hours as needed for pain for up to 90 days. Authorizing Provider: AARON SOLORZANO MD * Telephone Encounter - Vidhya Molina - 05/04/2024 9:59 AM EDT Prescription Refill Information The patient has been identified by name and date of : Yes Caregiver verified no other encounters exist for this prescription request: Yes Caregiver confirmed with patient/requestor that no other refills are due, in the near future, with this provider at this time: Yes The last office visit in the department: 12/21/23 Does the patient have a future office visit with this provider/department: No Requested Prescriptions Pending Prescriptions Disp Refills celecoxib (CELEBREX) 200 mg capsule 180 capsule 1 Sig: Take 1 capsule by mouth twice daily. Take with food. traMADol (ULTRAM) 50 mg tablet 120 tablet 2 Sig: Take 1 tablet by mouth every 6 hours as needed for pain for up to 30 days. Vidhya Cano May 04, 2024 9:59 AM documented in this encounterC[facility]09-[facility]-2024 Telephone encounter Note * Telephone Encounter - Vidhya Molina - 05/04/2024 9:59 AM EDT Prescription Refill Information The patient has been identified by name and date of : Yes Caregiver verified no other encounters exist for this prescription request: Yes Caregiver confirmed with patient/requestor that no other refills are due, in the near future, with this provider at this time: Yes The last office visit in the department: 12/21/23 Does the patient have a future office visit with this provider/department: No Requested Prescriptions Pending Prescriptions Disp Refills celecoxib (CELEBREX) 200 mg capsule 180 capsule 1 Sig: Take 1 capsule by mouth twice daily. Take with food. traMADol (ULTRAM) 50 mg tablet 120 tablet 2 Sig: Take 1 tablet by mouth every 6 hours as needed for pain for up to 30 days. Vidhya Juárez [facility] May 04, 2024 9:59 AM [facility]08-22-2024 Telephone encounter Note* Telephone Encounter - Kathy Moe MA - 04/19/2024 8:52 AM EDT Prescription Refill Information The patient has been identified by name and date of : Yes Caregiver verified no other encounters exist for this prescription request: Yes Caregiver confirmed with patient/requestor that no other refills are due, in the near future, with this provider at this time: Yes The last office visit in the department: 12/20/2023 Does the patient have a future office visit with this provider/department: Visit date not found Requested Prescriptions Pending Prescriptions Disp Refills gabapentin (NEURONTIN) 400 mg capsule [Pharmacy Med Name: gabapentin 400 mg capsule] 90 capsule 5 Sig: Take 1 capsule by mouth three times a day for 180 days. Kathy Moe MA April 19, 2024 8:53 AM [facility]08-22-2024 Miscellaneous Notes* Telephone Encounter - Kathy Moe MA - 04/19/2024 8:52 AM EDT Prescription Refill Information The patient has been identified by name and date of : Yes Caregiver verified no other encounters exist for this prescription request: Yes Caregiver confirmed with patient/requestor that no other refills are due, in the near future, with this provider at this time: Yes The last office visit in the department: 12/20/2023 Does the patient have a future office visit with this provider/department: Visit date not found Requested Prescriptions Pending Prescriptions Disp Refills gabapentin (NEURONTIN) 400 mg capsule [Pharmacy Med Name: gabapentin 400 mg capsule] 90 capsule 5 Sig: Take 1 capsule by mouth three times a day for 180 days. Kathy Moe MA April 19, 2024 8:53 AM documented in this encounterC[facility]08-08-2024 Telephone encounter Note * Telephone Encounter - Reyna Campbell RN - 04/05/2024 9:43 AM EDT Called patient to let him know Dr. Solorzano sent the prescription and explained we just wanted to seeif there was a need to triage pain since we noticed he went through his Rx faster than previous times. He voiced understanding and said he is doing fine. [facility]08-08-2024 Miscellaneous Notes* Telephone Encounter - Reyna Campbell RN - 04/05/2024 9:43 AM EDT Called patient to let him know Dr. Solorzano sent the prescription and explained we just wanted to seeif there was a need to triage pain since we noticed he went through his Rx faster than previous times. He voiced understanding and said he is doing fine. * Telephone Encounter - Aaron Solorzano MD - 04/04/2024 5:53 PM EDT The following approved medication requests have been transmitted electronically. Requested Prescriptions Signed Prescriptions Disp Refills traMADol (ULTRAM) 50 mg tablet 120 tablet 0 Sig: Take 1 tablet by mouth every 6 hours as needed for pain for up to 30 days. Authorizing Provider: AARON SOLORZANO MD * Telephone Encounter - Latta Vidhya Cano - 04/04/2024 10:26 AM EDT Patient returned phone call; he typically takes 3 pills per day. Some days he might need more. He does not understand what is in question. The last script shows quantity: 120 which potentially can take every 6 hours (4 per day) and it ended on 03/30/24. The patient has [address] pills left[address] Please ask Dr[address] Solorzano to send the prescription. * Telephone Encounter - Reyna Campbell RN - 04/03/2024 9:07 AM EDT Called patient at [phone]. Phone rang multiple times, no answer. Could not leave message. Dr. Solorzano we attempted a couple of times to reach patient about the tramadol, needing it sooner than he usually does, but have been unable. Will you refill it at this time? Requested Prescriptions Pending Prescriptions Disp Refills traMADol (ULTRAM) 50 mg tablet 120 tablet 0 Sig: Take 1 tablet by mouth every 6 hours as needed for pain for up to 30 days. * Telephone Encounter - Reyna Campbell RN - 04/02/2024 12:15 PM EDT Last office visit 12/20/2023. Upcoming visit not scheduled. Called to triage usage. Last refill was 02/29/24 and it looks like past Rxs have lasted a little longer than this. Left message with person in household to ask patient to call back. * Telephone Encounter - Dorinda Hidalgo - 04/02/2024 9:07 AM EDT Patient called to refill his tramadol rx; not on current med list. Uses [facility] in [place]. documented in this encounterC[facility]08-07-2024 Telephone encounter Note * Telephone Encounter - Aaron Solorzano MD - 04/04/2024 5:53 PM EDT The following approved medication requests have been transmitted electronically. Requested Prescriptions Signed Prescriptions Disp Refills traMADol (ULTRAM) 50 mg tablet 120 tablet 0 Sig: Take 1 tablet by mouth every 6 hours as needed for pain for up to 30 days. Authorizing Provider: AARON SOLORZANO MD [facility]08-07-2024 Telephone encounter Note* Telephone Encounter - Vidhya Molina - 04/04/2024 10:26 AM EDT Patient returned phone call; he typically takes 3 pills per day. Some days he might need more. He does not understand what is in question. The last script shows quantity: 120 which potentially can take every 6 hours (4 per day) and it ended on 03/30/24. The patient has 6 pills left[address] Please ask Dr[address] Solorzano to send the prescription. T [facility]08-06-2024 Telephone encounter Note* Telephone Encounter - Reyna Campbell RN - 04/03/2024 9:07 AM EDT Called patient at [phone]. Phone rang multiple times, no answer. Could not leave message. Dr. Solorzano we attempted a couple of times to reach patient about the tramadol, needing it sooner than he usually does, but have been unable. Will you refill it at this time? Requested Prescriptions Pending Prescriptions Disp Refills traMADol (ULTRAM) 50 mg tablet 120 tablet 0 Sig: Take 1 tablet by mouth every 6 hours as needed for pain for up to 30 days. [facility]08-05-2024 Telephone encounter Note* Telephone Encounter - Reyna Campbell RN - 04/02/2024 12:15 PM EDT Last office visit 12/20/2023. Upcoming visit not scheduled. Called to triage usage. Last refill was 02/29/24 and it looks like past Rxs have lasted a little longer than this. Left message with person in household to ask patient to call back. [facility]08-05-2024 Telephone encounter Note* Telephone Encounter - Dorinda Hidalgo - 04/02/2024 9:07 AM EDT Patient called to refill his tramadol rx; not on current med list. Uses [facility] in [place]. T [facility]08-02-2024 Telephone encounter Note* Telephone Encounter - Annalise Woodard LPN - 03/30/2024 2:27 PM EDT Received 03/30/2024 from [facility]. Placed in provider's inbox for review. Route to [place] for [place]. [facility]08-02-2024 Miscellaneous Notes* Telephone Encounter - Annalise Woodard LPN - 03/30/2024 2:27 PM EDT Received 03/30/2024 from [facility]. Placed in provider's inbox for review. Route to [place] for [place]. documented in this encounterCleveland [facility]07-22-2024 Telephone encounter Note * Telephone Encounter - Milla Haro - 03/19/2024 10:01 AM EDT Prescription Refill Information The patient has been identified by name and date of : Yes Caregiver verified no other encounters exist for this prescription request: Yes Caregiver confirmed with patient/requestor that no other refills are due, in the near future, with this provider at this time: Yes The last office visit in the department: 12/20/2023 Does the patient have a future office visit with this provider/department: No Requested Prescriptions Pending Prescriptions Disp Refills amoxicillin (AMOXIL) 500 mg capsule 4 capsule 1 Sig: Take 4 capsules by mouth prior to dental procedure. Patient has an upcoming dental appointment, dentist requires he takes antibiotic before appt. Milla Haro March 19, 2024 10:01 AM [facility]07-22-2024 Miscellaneous Notes* Telephone Encounter - Milla Haro - 03/19/2024 10:01 AM EDT Prescription Refill Information The patient has been identified by name and date of : Yes Caregiver verified no other encounters exist for this prescription request: Yes Caregiver confirmed with patient/requestor that no other refills are due, in the near future, with this provider at this time: Yes The last office visit in the department: 12/20/2023 Does the patient have a future office visit with this provider/department: No Requested Prescriptions Pending Prescriptions Disp Refills amoxicillin (AMOXIL) 500 mg capsule 4 capsule 1 Sig: Take 4 capsules by mouth prior to dental procedure. Patient has an upcoming dental appointment, dentist requires he takes antibiotic before appt. Milla Haro March 19, 2024 10:01 AM documented in this encounterC[facility]07-16-2024 Telephone encounter Note * Telephone Encounter - Annalise Woodard LPN - 03/13/2024 12:57 PM EDT Received 03/13/2024 from [facility]. Placed in provider's inbox for review. [place] to [place] for [place]. [facility]07-16-[facility] Miscellaneous Notes* Telephone Encounter - Annalise Woodard LPN - 03/13/2024 12:57 PM EDT Received 03/13/2024 from [facility]. Placed in provider's inbox for review. Route to [place] for [place]. documented in this encounterCleveland Clinic [facility]07-03-2024 Telephone encounter Note * Telephone Encounter - Aaron Solorzano MD - 02/29/2024 4:48 PM EDT The following approved medication requests have been transmitted electronically. Requested Prescriptions Signed Prescriptions Disp Refills traMADol (ULTRAM) 50 mg tablet 120 tablet 0 Sig: Take 1 tablet by mouth every 6 hours as needed for pain for up to 30 days. Authorizing Provider: AARON SOLORZANO MD [facility]07-03-2024 Miscellaneous Notes* Telephone Encounter - Aaron Solorzano MD - 02/29/2024 4:48 PM EDT The following approved medication requests have been transmitted electronically. Requested Prescriptions Signed Prescriptions Disp Refills traMADol (ULTRAM) 50 mg tablet 120 tablet 0 Sig: Take 1 tablet by mouth every 6 hours as needed for pain for up to 30 days. Authorizing Provider: AARON SOLORZANO MD * Telephone Encounter - Vernell Hernandez LPN - 02/29/2024 11:20 AM EDT Prescription Refill Information The patient has been identified by name and date of : Yes Caregiver verified no other encounters exist for this prescription request: Yes Caregiver confirmed with patient/requestor that no other refills are due, in the near future, with this provider at this time: Yes The last office visit in the department: 12/20/23 Does the patient have a future office visit with this provider/department: No Requested Prescriptions Pending Prescriptions Disp Refills traMADol (ULTRAM) 50 mg tablet Sig: Take 1 tablet by mouth every 6 hours as needed for pain. Vernell Hernandez LPN February 29, 2024 11:21 AM * Telephone Encounter - Veronica Chow - 02/29/2024 9:22 AM EDT Patient requesting medication that is . traMADol (ULTRAM) 50 mg tablet [facility]ARMACY: [facility]. [facility] Telephone encounter Note * Telephone Encounter - Vernell Hernandez LPN - 02/29/2024 11:20 AM EDT Prescription Refill Information The patient has been identified by name and date of : Yes Caregiver verified no other encounters exist for this prescription request: Yes Caregiver confirmed with patient/requestor that no other refills are due, in the near future, with this provider at this time: Yes The last office visit in the department: 12/20/23 Does the patient have a future office visit with this provider/department: No Requested Prescriptions Pending Prescriptions Disp Refills traMADol (ULTRAM) 50 mg tablet Sig: Take 1 tablet by mouth every 6 hours as needed for pain. Vernell Hernandez LPN February 29, 2024 11:21 AM [facility]07-03-2024 Telephone encounter Note* Telephone Encounter - Veronica Chow - 02/29/2024 9:22 AM EDT Patient requesting medication that is . traMADol (ULTRAM) 50 mg tablet PHARMACY: [facility]. [facility] Telephone encounter Note* Telephone Encounter - Aaron Solorzano MD - 02/07/2024 4:42 PM EDT The following approved medication requests have been transmitted electronically. Requested Prescriptions Signed Prescriptions Disp Refills metFORMIN (GLUCOPHAGE) 1,000 mg tablet 180 tablet 1 Sig: Take 1 tablet by mouth two times a day with meals. Authorizing Provider: AARON SOLORZANO MD [facility]06-11-2024 Miscellaneous Notes* Telephone Encounter - Aaron Solorzano MD - 02/07/2024 4:42 PM EDT The following approved medication requests have been transmitted electronically. Requested Prescriptions Signed Prescriptions Disp Refills metFORMIN (GLUCOPHAGE) 1,000 mg tablet 180 tablet 1 Sig: Take 1 tablet by mouth two times a day with meals. Authorizing Provider: AARON SOLORZANO MD * Telephone Encounter - Skylar Amaro - 02/07/2024 10:58 AM EDT Prescription Refill Information The patient has been identified by name and date of : Yes Caregiver verified no other encounters exist for this prescription request: Yes Caregiver confirmed with patient/requestor that no other refills are due, in the near future, with this provider at this time: Yes The last office visit in the department: 12/20/23 Does the patient have a future office visit with this provider/department: Yes Requested Prescriptions Pending Prescriptions Disp Refills metFORMIN (GLUCOPHAGE) 1,000 mg tablet 180 tablet 1 Sig: Take 1 tablet by mouth two times a day with meals. Skylar Cano February 07, 2024 10:59 AM documented in this encounterC[facility] Telephone encounter Note * Telephone Encounter - Skylar Amaro - 02/07/2024 10:58 AM EDT Prescription Refill Information The patient has been identified by name and date of : Yes Caregiver verified no other encounters exist for this prescription request: Yes Caregiver confirmed with patient/requestor that no other refills are due, in the near future, with this provider at this time: Yes The last office visit in the department: 12/20/23 Does the patient have a future office visit with this provider/department: Yes Requested Prescriptions Pending Prescriptions Disp Refills metFORMIN (GLUCOPHAGE) 1,000 mg tablet 180 tablet 1 Sig: Take 1 tablet by mouth two times a day with meals. Skylar Cano February 07, 2024 10:59 AM [facility]05-[facility] Telephone encounter Note* Telephone Encounter - Annalise Woodard LPN - 01/17/2024 4:14 PM EDT Voicemail left for patient. [facility] Miscellaneous Notes* Telephone Encounter - Annalise Woodard LPN - 01/17/2024 4:14 PM EDT Voicemail left for patient. * Telephone Encounter - Aaron Solorzano MD - 01/17/2024 2:47 PM EDT The following approved medication requests have been transmitted electronically. Requested Prescriptions Signed Prescriptions Disp Refills traMADol (ULTRAM) 50 mg tablet 120 tablet 0 Sig: Take 1 tablet by mouth every 6 hours as needed for up to 30 days. Authorizing Provider: AARON SOLORZANO MD * Telephone Encounter - Aimee Almanza - 01/17/2024 8:54 AM EDT [facility] is calling Aaron Solorzano MD today to request a medication not on current med list Tramadol 50 mg tablet every six hours as needed #120 with 0 refills Please send approved medication to [facility] [address] Patient has been identified by name and birthdate. Duration of symptoms: N/A Person calling: self Call patient at: at home [phone] (home) Was an appointment scheduled: No Patient was seen on 12/20/2023 No future appointment has been scheduled Closing statement: Results or non-symptom based questions: Thank you for [facility], your call will be returned within the next business day. Aimee Williamson documented in this encounterC[facility]05-21-2024 Telephone encounter Note * Telephone Encounter - Aaron Solorzano MD - 01/17/2024 2:47 PM EDT The following approved medication requests have been transmitted electronically. Requested Prescriptions Signed Prescriptions Disp Refills traMADol (ULTRAM) 50 mg tablet 120 tablet 0 Sig: Take 1 tablet by mouth every 6 hours as needed for up to 30 days. Authorizing Provider: AARON SOLORZANO MD [facility] Telephone encounter Note* Telephone Encounter - Aimee Almanza - 01/17/2024 8:54 AM EDT [facility] is calling Aaron Solorzano MD today to request a medication not on current med list Tramadol 50 mg tablet every six hours as needed #120 with 0 refills Please send approved medication to [facility] [place] on [address] Patient has been identified by name and birthdate. Duration of symptoms: N/A Person calling: self Call patient at: at home [phone] (home) Was an appointment scheduled: No Patient was seen on 12/20/2023 No future appointment has been scheduled Closing statement: Results or non-symptom based questions: Thank you for [facility], your call will be returned within the next business day. Aimee Williamson [facility]05-14-2024 Telephone encounter Note* Telephone Encounter - Vernell Hernandez LPN - 01/10/2024 4:59 PM EDT Received carotid duplex US report from [facility] cardiovascular services. Placed in provider's inbox for review. Route to MA scanning [facility]05-14-[facility] Miscellaneous Notes* Telephone Encounter - Vernell Hernandez LPN - 01/10/2024 4:59 PM EDT Received carotid duplex US report from [facility] cardiovascular services. Placed in provider's inbox for review. Route to MA scanning documented in this encounterC[facility]05-13-2024 Telephone encounter Note * Telephone Encounter - Vernell Hernandez LPN - 01/09/2024 3:26 PM EDT Received echo results from [facility]. Placed in provider's inbox for review. Route to MA scanning [facility] Miscellaneous Notes* Telephone Encounter - Vernell Hernandez LPN - 01/09/2024 3:26 PM EDT Received echo results from [facility]. Placed in provider's inbox for review. Route to MA scanning documented in this encounterC[facility]04-23-2024 History of Present illness Narrative* Aaron Solorzano MD - 12/20/2023 9:54 AM EDT CHIEF COMPLAINT Patient presents with: CPAP Supplies HISTORY OF PRESENT ILLNESS [facility] Weir is a 73 year old male who presents here today for cpap supplies. I last saw this patient on 10/17/2023. 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 Past medical history, appointments, medications, allergies reviewed. REVIEW OF SYSTEMS General: Feels well, no weight changes, fevers or chills. HEENT: No sinus congestion, earache, sore throat. Cardiac: No chest pain, palpitations Resp: No cough, wheeze, shortness of breath GI: No reflux symptoms, food intolerance, bowel changes. : No urinary frequency, dysuria. MS: No pain or joint complaints. PAST MEDICAL HISTORY PAST MEDICAL HISTORY Diagnosis Date Aortic valvar stenosis Arthritis BPH (benign prostatic hyperplasia) HTN (hypertension) LIAN (obstructive sleep apnea) Other and unspecified disc disorder of unspecified region Intervertebral disc disorders Other and unspecified hyperlipidemia Sciatica Type II or unspecified type diabetes mellitus without mention of complication, not stated as uncontrolled PHYSICAL EXAMINATION BP 136/70 Pulse 69 Ht 172.7 cm (5' 7.99) Wt 88 kg (194 lb 0.1 oz) SpO2 99% BMI 29.51 kg/m General: Alert, well developed, well nourished, no distress, pleasant and cooperative. Heart: Regular rate and rhythm. Normal S1 and S2. No murmurs, rubs, or gallops. Lungs: Clear to auscultation bilaterally. No respiratory distress. No wheezes, rales, or rhonchi. Abdomen: Soft, non-tender, no distention. Extremities: Feet/ankles without edema, posterior tibial pulses full and symmetrical. Feet: Shoes and socks removed. Normal sensation monofilament. Nails and skin in good condition, no calluses. Data Reviewed Latest Ref [facility] 07/05/2023 Protein, Total 6.3 - 8.0 g/dL 6.9 Albumin 3.9 - 4.9 g/dL 4.4 Calcium 8.5 - 10.2 mg/dL 9.3 Bilirubin, Total 0.2 - 1.3 mg/dL 0.3 Alkaline Phosphatase 38 - 113 U/L 88 AST 14 - 40 U/L 18 ALT 10 - 54 U/L 14 Glucose 74 - 99 mg/dL 94 BUN 9 - 24 mg/dL 12 Creatinine 0.73 - 1.22 mg/dL 0.83 Sodium 136 - 144 mmol/L 135 (L) Potassium 3.7 - 5.1 mmol/L 4.5 Chloride 97 - 105 mmol/L 98 CO2 22 - 30 mmol/L 27 Anion Gap 9 - 18 mmol/L 10 eGFR >=60 mL/min/1.73m 92 WBC 3.70 - 11.00 k/uL 5.79 RBC 4.20 - 6.00 m/uL 4.38 Hemoglobin 13.0 - 17.0 g/dL 13.4 Hematocrit 39.0 - 51.0 % 39.0 MCV 80.0 - 100.0 fL 89.0 MCH 26.0 - 34.0 pg 30.6 MCHC 30.5 - 36.0 g/dL 34.4 RDW-CV 11.5 - 15.0 % 12.3 Platelet Count 150 - 400 k/uL 196 MPV 9.0 - 12.7 fL 10.0 Absolute nRBC <0.01 k/uL <0.01 Cholesterol, Total <200 mg/dL 110 Triglyceride <150 mg/dL 118 HDL Cholesterol >39 mg/dL 36 (L) Non HDL Cholesterol <130 mg/dL 74 Fasting Time hrs 12 VLDL Cholesterol <30 mg/dL 24 TC:HDL Ratio <5.10 3.06 LDL Cholesterol <100 mg/dL 50 LDL:HDL Ratio <2.54 1.39 Hemoglobin A1C 4.3 - 5.6 % 5.8 (H) Estimated Average Glucose mg/dL 120 Legend: (L) Low (H) High Sleep study scanned document (study date 10/25/12 under external procedures/ neurology shows CPAP titration Assessment/Plan (G47.33) LIAN (obstructive sleep apnea) (primary encounter diagnosis) Comment: adherent to treatment and benefiting from it senior care. In need of new supplies, order placed Plan: CPAP DEVICE, WITH HUMIDIFIER Requested Prescriptions No prescriptions requested or ordered in this encounter RTO: 6 months Scribe Attestation: By signing my name below, ISharon, attest that this documentation has been prepared under the direction and in the presence of Mike Solorzano M.D. Electronically Signed: Ana Luisa Colmenares. December 20, 2023 9:54 AM Provider Attestation: IAaron MD, personally performed the services described in this documentation. All medical record entries made by the scribe were at my direction and in my telephonic presence. I have reviewed the chart and discharge instructions (if applicable), and agree that the record reflects my personal performance and is accurate and complete. Electronically Signed: Aaron Solorzano MD December 20, 2023 10:57 AM * Aaron Solorzano MD - 12/20/2023 9:54 AM EDT PDMP website checked and validated. All prescriptions have been APPROPRIATELY filled. No suspiciousactivity was identified. 12/20/2023 by Aaron Solorzano MD documented in this encounterC[facility]04-16-2024 Miscellaneous Notes* Telephone Encounter - Vernell Hernandez LPN - 12/13/2023 1:36 PM EDT Called and left voicemail. * Telephone Encounter - Daxa Moody APRN.CNP - 12/13/2023 9:52 AM EDT Let patient know I sent over the amoxicillin. Daxa Moody APRN.CNP * Telephone Encounter - Vidhya Molina - 12/12/2023 4:33 PM EDT Patient has been identified by name and date of : Yes Patient phones for refill(s): Requested Prescriptions Pending Prescriptions Disp Refills amoxicillin (AMOXIL) 500 mg capsule 4 capsule 1 Sig: Take 4 capsules by mouth prior to dental procedure. Date of last office visit in primary care: 10/17/2023 Date of next office visit in primary care: 01/16/2024 Per patient, he needs this sent as soon as possible for his dental cleaning, they have a cancellation tomorrow. Please send today if possible. Please notify the patient. Please advise. Thank you. Vidhya Cano. documented in this encounterC[facility]04-03-2024 Miscellaneous Notes* Telephone Encounter - Annalise Woodard LPN - 11/30/2023 10:23 AM EDT Received 11/30/2023 from [facility]. Placed in provider's inbox for review. Route to [place] for faxing. documented in this encounterCleveland [facility]04-01-2024 Miscellaneous Notes* Telephone Encounter - Aaron Solorzano MD - 11/28/2023 2:07 PM EDT The following approved medication requests have been transmitted electronically. Requested Prescriptions Signed Prescriptions Disp Refills traMADol (ULTRAM) 50 mg tablet 120 tablet 0 Sig: Take 1 tablet by mouth every 6 hours as needed for up to 30 days. Authorizing Provider: AARON SOLORZANO MD * Telephone Encounter - Peggy Hwang - 11/28/2023 12:14 PM EDT Pharmacy verified in [facility] in [place] Patient has been identified by name and date of : Yes Patient aware RX will be sent to pharmacy. No need to notify patient. Patient phones for refill(s): Disp Refills Start End traMADol (ULTRAM) 50 mg tablet 120 tablet 0 07/27/2023 08/26/2023 Sig: Take 1 tablet by mouth every 6 hours as needed for up to 30 days. Sent to pharmacy as: traMADol (ULTRAM) 50 mg tablet Class: Normal Route: ORAL Date of last office visit : 10/17/2023 Date of next office visit : 01/16/2024 Last 2 Encounter Wt Readings: Date: Wt: 10/17/2023 89 kg (196 lb 3.4 oz) 06/16/2023 90.3 kg (199 lb) Not applicable Please advise. Peggy Cano documented in this encounterC[facility]02-27-2024 Miscellaneous Notes* Telephone Encounter - Daxa Moody APRN.CNP - 10/25/2023 1:48 PM EST Yes, just switch to the new insulin when he runs out of the Levemir. Daxa Moody APRN.NATHANAEL * Telephone Encounter - Vernell Hernandez LPN - 10/25/2023 12:16 PM EST Called and notified pt of rx update. Pt states he will picker / packer new rx here in about a month or two because he still has enough of the Levemir to last him until then. Pt states he will call to update how he is doing on the Semglee at that time. * Telephone Encounter - Daxa Moody APRN.CNP - 10/25/2023 9:39 AM EST Since levemir is no longer covered by insurance, I sent a new Rx to his pharmacy, let us know if there are any issues with the new Rx. Daxa Moody APRN.CNP Requested Prescriptions Signed Prescriptions Disp Refills insulin glargine-yfgn (SEMGLEE,INSULIN GLARG-YFGN,PEN) 100 unit/mL (3 mL) insulin pen 12 mL 1 Sig: Inject 14 Units subcutaneously daily at bedtime. Authorizing Provider: DAXA MOODY Pharmacy Information Pharmacy Address Telephone [email or web address] [id number] [place] [address] * Telephone Encounter - Chrissy Haque - 10/24/2023 4:52 PM EST [employer] calling that Levomir is not in their covered formularies. The following are a couple of alternatives. Ankush Barr Stated they do have other alternatives. Please call to review. documented in this encounterCleveland Clinic [facility]02-21-2024 Miscellaneous Notes* Telephone Encounter - Annalise Woodard LPN - 10/19/2023 10:19 AM EST Spoke to [facility]. They need a current face to face to be able to bill Medicare part D. Face to face every six months. Last office note faxed to [phone] documented in this encounterCleveland Clinic [facility] Hospital02-19-2024 History of Present illness Narrative* Aaron Solorzano MD - 10/17/2023 4:08 PM EST CHIEF COMPLAINT Patient presents with: Neuropathy HISTORY OF PRESENT ILLNESS [facility] Weir is a 73 year old male who presents here today for neuropathy. I last saw this patient on 06/16/2023. Lumbar DDD - Was told that he was not a candidate for surgery due to age - Follows with Dr. Johnson at [place] - Got a stimulator over 1 year ago, location had to moved due to it being against the spine - Recently stimulator was turned off for 2 days per recommendation by Dr. Johnson, endorses a bad pain in both legs that radiated down over the tops of his feet. - Could not tolerate pain, turned stimulator back on, pain resolved. - Also managed on gabapentin 400 mg TID, tramadol and celebrex Chronic Urticaria - Managed on plaquenil 200 mg tablet - Started on this medication approximately 12 years ago, originally prescribed by spray technician, Dr. Robledo. - Has not endorses any hives since starting medication Health Maintenance Due for Dilated Retinal Exam Due for Urine Albumin:Creatinine Ratio Due for Colorectal Cancer Screening Due for Diabetic Foot Exam Due for Advanced Directive Discussion Due for Depression Assessment Labs reviewed. Past medical history, appointments, medications, allergies reviewed. REVIEW OF SYSTEMS General: Feels well, no weight changes, fevers or chills. HEENT: No sinus congestion, earache, sore throat. Cardiac: No chest pain, palpitations Resp: No cough, wheeze, shortness of breath GI: No reflux symptoms, food intolerance, bowel changes. : No urinary frequency, dysuria. MS: +bilateral leg pain that radiates to feet, resolved PAST MEDICAL HISTORY PAST MEDICAL HISTORY Diagnosis Date Aortic valvar stenosis Arthritis BPH (benign prostatic hyperplasia) HTN (hypertension) LIAN (obstructive sleep apnea) Other and unspecified disc disorder of unspecified region Intervertebral disc disorders Other and unspecified hyperlipidemia Sciatica Type II or unspecified type diabetes mellitus without mention of complication, not stated as uncontrolled PHYSICAL EXAMINATION BP 138/66 Pulse 70 Ht 172.7 cm (5' 7.99) Wt 89 kg (196 lb 3.4 oz) SpO2 95% BMI 29.84 kg/m General: Alert, well developed, well nourished, no distress, pleasant and cooperative. Heart: Regular rate and rhythm. Normal S1 and S2. No murmurs, rubs, or gallops. Lungs: Clear to auscultation bilaterally. No respiratory distress. No wheezes, rales, or rhonchi. Abdomen: Soft, non-tender, no distention. Back: surgical scar and subcutanous pacer w/o sign of infection, no redness or heat. Extremities: Feet/ankles without edema, posterior tibial pulses full and symmetrical. Gait is a little halting. Data Reviewed Component Latest Ref Rng & Units 07/05/2023 Protein, Total 6.3 - 8.0 g/dL 6.9 Albumin 3.9 - 4.9 g/dL 4.4 Calcium 8.5 - 10.2 mg/dL 9.3 Bilirubin, Total 0.2 - 1.3 mg/dL 0.3 Alkaline Phosphatase 38 - 113 U/L 88 AST 14 - 40 U/L 18 ALT 10 - 54 U/L 14 Glucose 74 - 99 mg/dL 94 BUN 9 - 24 mg/dL 12 Creatinine 0.73 - 1.22 mg/dL 0.83 Sodium 136 - 144 mmol/L 135 (L) Potassium 3.7 - 5.1 mmol/L 4.5 Chloride 97 - 105 mmol/L 98 CO2 22 - 30 mmol/L 27 Anion Gap 9 - 18 mmol/L 10 eGFR >=60 mL/min/1.73m 92 WBC 3.70 - 11.00 k/uL 5.79 RBC 4.20 - 6.00 m/uL 4.38 Hemoglobin 13.0 - 17.0 g/dL 13.4 Hematocrit 39.0 - 51.0 % 39.0 MCV 80.0 - 100.0 fL 89.0 MCH 26.0 - 34.0 pg 30.6 MCHC 30.5 - 36.0 g/dL 34.4 RDW-CV 11.5 - 15.0 % 12.3 Platelet Count 150 - 400 k/uL 196 MPV 9.0 - 12.7 fL 10.0 Absolute nRBC <0.01 k/uL <0.01 Cholesterol, Total <200 mg/dL 110 Triglyceride <150 mg/dL 118 HDL Cholesterol >39 mg/dL 36 (L) Non HDL Cholesterol <130 mg/dL 74 Fasting Time hrs 12 VLDL Cholesterol <30 mg/dL 24 TC:HDL Ratio <5.10 3.06 LDL Cholesterol <100 mg/dL 50 LDL:HDL Ratio <2.54 1.39 Hemoglobin A1C 4.3 - 5.6 % 5.8 (H) Estimated Average Glucose mg/dL 120 Assessment/Plan (M54.50, G89.29) Chronic midline low back pain without sciatica (primary encounter diagnosis) (M51.36) Lumbar degenerative disc disease (Z96.89) Spinal cord stimulator status (M54.17) Lumbosacral neuritis Comment: Experienced neuropathy pain when stimulator was turned off, resolved when stimulator was turned back on. In need of refill. Plan: celecoxib (CELEBREX) 200 mg capsule Continue use of stimulator and continue to follow with Dr. Johnson (E11.40, Z79.4) Controlled type 2 diabetes mellitus with diabetic neuropathy, with long-term current use of insulin (HCC) (E11.9) Type 2 diabetes mellitus without complications (HCC) Comment: In need of refill Plan: blood sugar diagnostic (TRUE METRIX GLUCOSE TEST STRIP) test strip, insulin detemir U-100 (LEVEMIR U-100 INSULIN) 100 unit/mL injection (I48.11) Longstanding persistent atrial fibrillation (HCC) (Z86.79) History of atrial fibrillation Comment: Stable Plan: Continue current treatment plan (I73.9) Peripheral arterial disease (HCC) Comment: Stable Plan: Continue current treatment plan (D69.6) Thrombocytopenia (HCC) Comment: Historical Plan: Will continue to monitor (L50.1) Chronic idiopathic urticaria Comment: Well controlled on plaquenil Plan: Continue current regimen (I10) Essential hypertension, benign Comment: Adequately controlled Plan: Continue current regimen (F09) Mild cognitive disorder Comment: Ongoing, likely to be due to medications; gabapentin and tramadol. Pt willing to undergo evaluation, consult order placed Plan: CONSULT TO GERIATRICS Requested Prescriptions Signed Prescriptions Disp Refills celecoxib (CELEBREX) 200 mg capsule 180 capsule 1 Sig: Take 1 capsule by mouth twice daily. Take with food. blood sugar diagnostic (TRUE METRIX GLUCOSE TEST STRIP) test strip 200 Each 11 Sig: Test blood sugar(s) 4 times daily. Insulin: Yes insulin detemir U-100 (LEVEMIR U-100 INSULIN) 100 unit/mL injection 10 mL 0 Sig: Inject 14 Units subcutaneously daily at bedtime. hydrOXYchloroQUINE (PLAQUENIL) 200 mg tablet 90 tablet 1 Sig: Take 1 tablet by mouth every afternoon. tamsulosin (FLOMAX) 0.4 mg 30 capsule 12 Sig: Take 1 capsule by mouth daily at bedtime. RTO: 3 months Scribe Attestation: By signing my name below, ISharon, attest that this documentation has been prepared under the direction and in the presence of Mike Solorzano M.D. Electronically Signed: Ana Luisa Colmenares. October 17, 2023 4:08 PM Provider Attestation: IAaron MD, personally performed the services described in this documentation. All medical record entries made by the scribe were at my direction and in my presence. I have reviewed the chart and discharge instructions (if applicable), and agree that the record reflects my personal performance and is accurate and complete. Electronically Signed: Aaron Solorzano MD October 18, 2023 8:39 AM documented in this encounterCleveland Clinic [facility]02-16-2024 Miscellaneous Notes* Telephone Encounter - Reyna Campbell RN - 10/14/2023 2:43 PM EST Called to triage c/o neuropathy BLE pain going from 0 to 10 intermittently. He has a stimulator in his back, I turned it up last night and it did help some. No aggravating factors noticed. Alleviating factors, Voltaren gel to the outsides of feet and toes helps for an hour or two. Patient states he is taking his medications as prescribed, denies side effects to the gabapentin, taking tramadol up to 3x/day. Advised ER with emergency warning signs per protocol, which patient denies. Disposition see PCP within 3 days. Patient accepted an appointment TuesdayOct 17 with PCP. Scheduled. Please advise if any new instructions for over the weekend. Reason for Disposition Diabetes mellitus [1] Numbness or tingling in both feet AND [2] new or increased Answer Assessment - Initial Assessment Questions 1. ONSET: A week ago started worsening 2. LOCATION: knife like pain in both feet 3. PAIN: severe and intermittent At worst 10 At best 0 (currently 0) 4. WORK OR EXERCISE: N/A 5. CAUSE: neuropathy, glucs running 90s to 130s 6. OTHER SYMPTOMS: no 7. : N/A Protocols used: Foot Ufcw-LMXLW-HR, Diabetes - Foot Problems and Dvqkblfbo-IIIHX-SB * Telephone Encounter - Reyna Campbell RN - 10/14/2023 9:52 AM EST Called to triage. Patient is not home. His spouse asked that triage call back later. * Telephone Encounter - Vidhya Molina - 10/14/2023 9:13 AM EST [facility] is calling Aaron Solorzano MD today with concern regarding Neuropathy and severe pain. He has bilateral foot pain with neuropathy. He stated his blood sugar was 104. Please call him back. Patient has been identified by name and birthdate. Duration of symptoms: N/A Person calling: self Call patient at: on cell [phone] (home) Was an appointment scheduled: No Closing statement: Symptom Call: Thank you for calling [facility], your call is very important. A nurse will call in approximately 2-4 hours during business hours. If this is an emergency, please contact 911. Vidhya Cano documented in this encounterC[facility] Clinic [facility]02-15-2024 History of Present illness Narrative* Karla Ireland MA - 10/13/2023 1:18 PM EST POPULATION HEALTH NAVIGATION OUTREACH Action/FYI October 13, 2023 1:23 PM ACO HCC Outreach ~EULOGIO with Aaron Solorzano MD was June 16, 2023 Follow up Six month follow up recommended, not scheduled at this time DILATED RETINAL EXAM COLORECTAL CANCER SCREENING Hemoglobin A1C (%) Date Value 07/05/2023 5.8 09/21/2021 5.9 09/21/2021 5.9 Outcome: Left message on voicemail for patient to return call No My chart as second outreach Patient Identified by Name and : NO Outreach Outcome/Action Unable to reach patient: Left message Did you use a PCP flex slot to schedule this appointment? N/A Reason for Outreach HCC or suspected condition Payer: Payor: MEDICARE / Plan: MEDICARE A AND B / Product Type: Medicare / Care Gap Reviewed:: Follow-up appointment Colorectal Cancer Screening Diabetic Eye Exam Reminder: Reminder note to check Health Maintenance for items below Health Maintenance items due: Dilated Retinal Exam due on 12/31/2021 Urine Albumin:Creatinine Ratio due on 09/21/2022 Colorectal Cancer Screening due on 05/31/2023 Diabetic Foot Exam due on 08/25/2023 Advance Directive Discussion due on 08/29/2023 Depression Assessment due on 08/29/2023 Navigation Signature: Karla Ireland MA October 13, 2023 1:23 PM documented in this encounterCleveland Clinic [facility]02-06-2024 Miscellaneous Notes* Telephone Encounter - Aaron Solorzano MD - 10/04/2023 12:48 PM EST The following approved medication requests have been transmitted electronically. Requested Prescriptions Signed Prescriptions Disp Refills traMADol (ULTRAM) 50 mg tablet 120 tablet 0 Sig: Take 1 tablet by mouth every 6 hours as needed for up to 30 days. Authorizing Provider: AARON SOLORZANO MD * Telephone Encounter - Aaron Solorzano MD - 10/04/2023 12:47 PM EST The following approved medication requests have been transmitted electronically. Requested Prescriptions Signed Prescriptions Disp Refills traMADol (ULTRAM) 50 mg tablet 120 tablet 0 Sig: Take 1 tablet by mouth every 6 hours as needed for up to 30 days. Authorizing Provider: AARON SOLORZANO MD * Telephone Encounter - Annalise Woodard LPN - 10/04/2023 11:47 AM EST Pharmacy verified in [facility] Patient has been identified by name and date of : Yes Patient aware RX will be sent to pharmacy. No need to notify patient. Patient phones for refill(s): Requested Prescriptions Pending Prescriptions Disp Refills traMADol (ULTRAM) 50 mg tablet 120 tablet 0 Sig: Take 1 tablet by mouth every 6 hours as needed for up to 30 days. Date of last office visit : Visit date not found Date of next office visit : Visit date not found Last 2 Encounter Wt Readings: Date: Wt: 06/16/2023 90.3 kg (199 lb) 02/17/2023 89.8 kg (198 lb) Not applicable Please advise. Annalise Woodard LPN * Telephone Encounter - Aimee Almanza - 10/04/2023 11:02 AM EST [facility] is calling Aaron Solorzano MD today to request a medication not listed on current med list Tramadol 50 mg tablet #120 Please send to [facility] Patient has been identified by name and birthdate. Duration of symptoms: N/A Person calling: self Call patient at: at home [phone] (home) Was an appointment scheduled: No Closing statement: Results or non-symptom based questions: Thank you for calling [facility], your call will be returned within the next business day. Aimee Williamson documented in this encounterCleveland Clinic Med[facility] Hospital12-14-2023 Miscellaneous Notes* Telephone Encounter - Aaron Solorzano MD - 08/11/2023 4:56 PM EST The following approved medication requests have been transmitted electronically. Requested Prescriptions Signed Prescriptions Disp Refills gabapentin (NEURONTIN) 400 mg capsule 90 capsule 5 Sig: Take 1 capsule by mouth three times a day for 180 days. Authorizing Provider: AARON SOLORZANO hydrOXYchloroQUINE (PLAQUENIL) 200 mg tablet 90 tablet 1 Sig: Take 1 tablet by mouth every afternoon. Authorizing Provider: AARON SOLORZANO MD * Telephone Encounter - Vernell Hernandez LPN - 08/11/2023 10:20 AM EST Pharmacy verified in [facility] Patient has been identified by name and date of : Yes Patient aware RX will be sent to pharmacy. No need to notify patient. Patient phones for refill(s): Requested Prescriptions Pending Prescriptions Disp Refills gabapentin (NEURONTIN) 400 mg capsule 90 capsule 2 Sig: Take 1 capsule by mouth three times a day for 90 days. hydrOXYchloroQUINE (PLAQUENIL) 200 mg tablet Sig: Take 1 tablet by mouth every afternoon. Date of last office visit : 06/16/2023 Date of next office visit : Visit date not found Last 2 Encounter Wt Readings: Date: Wt: 06/16/2023 90.3 kg (199 lb) 02/17/2023 89.8 kg (198 lb) Not applicable Please advise. Vernell Hernandez LPN * Telephone Encounter - Peggy Hwang - 08/11/2023 9:54 AM EST Pharmacy verified in [facility] Patient has been identified by name and date of : Yes Patient aware RX will be sent to pharmacy. No need to notify patient. Patient phones for refill(s): Requested Prescriptions Pending Prescriptions Disp Refills gabapentin (NEURONTIN) 400 mg capsule 90 capsule 2 Sig: Take 1 capsule by mouth three times a day for 90 days. hydrOXYchloroQUINE (PLAQUENIL) 200 mg tablet Sig: Take 1 tablet by mouth every afternoon. Date of last office visit : 06/16/2023 Date of next office visit : Visit date not found Last 2 Encounter Wt Readings: Date: Wt: 06/16/2023 90.3 kg (199 lb) 02/17/2023 89.8 kg (198 lb) Not applicable Please advise. Peggy Cano documented in this encounterCleveland Clinic Med[facility] Hospital11-16-2023 Miscellaneous Notes* Telephone Encounter - Annalise Woodard LPN - 07/14/2023 3:34 PM EST Patient aware and verbalized understanding. * Telephone Encounter - Aaron Solorzano MD - 07/14/2023 1:45 PM EST The following approved medication requests have been transmitted electronically. Requested Prescriptions Signed Prescriptions Disp Refills amoxicillin (AMOXIL) 500 mg capsule 4 capsule 1 Sig: Take 4 capsules by mouth prior to dental procedure. Authorizing Provider: AARON SOLORZANO MD * Telephone Encounter - Reyna Campbell RN - 07/14/2023 1:29 PM EST Called patient. He requests 2,000 mg of amoxicillin prior to possibly two different dental procedures he has not scheduled yet, but has two broken teeth. Last office visit 06/16/2023. Requested Prescriptions Pending Prescriptions Disp Refills amoxicillin (AMOXIL) 500 mg capsule 4 capsule 1 Sig: Take 4 capsules by mouth prior to dental procedure. * Telephone Encounter - Skylar Amaro - 07/14/2023 12:57 PM EST [facility] is calling Aaron Solorzano MD today to request Medication Request (Amoxicillin for dental work appointments - needs at least 2 visits worth ) Patient has been identified by name and birthdate. Duration of symptoms: N/A Person calling: self Call patient at: at home [phone] (home) Was an appointment scheduled: No Closing statement: Results or non-symptom based questions: Thank you for calling [facility], your call will be returned within the next business day. Skylar Cano documented in this encounterCleveland Clinic [facility] Hospital11-16-2023 Miscellaneous Notes* Telephone Encounter - Reyna Campbell, RN - 07/14/2023 1:39 PM EST According to last Rx patient should have enough medication to last until September. Called patient to discuss, he confirms he is taking 1/2 tablet by mouth daily, only has 3 tablets left, and the pharmacy told him his prescription has run out. Last office visit 06/16/2023. (Also sent another encounter request for amoxicillin, as the requestscame in separately.) Requested Prescriptions Pending Prescriptions Disp Refills metoprolol succinate ER (TOPROL XL) 100 mg 45 tablet 3 Sig: Take 0.5 tablets by mouth once daily. * Telephone Encounter - Skylar Amaro - 07/14/2023 12:56 PM EST Patient has been identified by name and date of : Yes Requested Prescriptions Pending Prescriptions Disp Refills metoprolol succinate ER (TOPROL XL) 100 mg 45 tablet 3 Sig: Take 0.5 tablets by mouth once daily. RX INSTRUCTIONS: Patient aware RX will be sent to pharmacy. No need to notify patient. Skylar Cano documented in this encounterCleveland Clinic [facility] Hospital10-20-2023 Miscellaneous Notes* Telephone Encounter - Annalise Woodard LPN - 06/17/2023 1:13 PM EDT Received 06/17/2023 from José Antonio. Placed in provider's inbox for review. Route to [place] for faxing José Antonio states there is a contradiction between hydroxychloroquine and Levemir Placed in Dr Solorzano basket. LM for patient asking which Dr prescribed medication documented in this encounterCleveland Clinic Med[facility] Hospital10-19-2023 History of Present illness Narrative* Aaron Solorzano MD - 06/16/2023 3:38 PM EDT Chief Complaint Patient presents with: Follow Up [facility] here today for follow up/ med check Back pain. Spondylosis. He sees Dr johnson. Has spinal cors stimulator. Recent aggravation from cleaning out garage. Circulation: seeing Dr Pool, he had a PVR test that was negative/ normal Diabetes. Doing Ok with regimen Bp well controlled. A fib, he has not been in A fib of late. Has not recently seen Dr Arias. Sleep apnea. Past, family and social history reviewed PAST MEDICAL HISTORY Diagnosis Date Aortic valvar stenosis Arthritis BPH (benign prostatic hyperplasia) HTN (hypertension) LIAN (obstructive sleep apnea) Other and unspecified disc disorder of unspecified region Intervertebral disc disorders Other and unspecified hyperlipidemia Sciatica Type II or unspecified type diabetes mellitus without mention of complication, not stated as uncontrolled PAST SURGICAL HISTORY Procedure Laterality Date ARTHRS KNEE ABRASION ARTHRP/FLARE MAKER DRLG/MICROFX 2013 and 2014 [facility] and Dr. Thrasher with Kneecap CARDIAC CATH 03/18/2020 [facility] I/D PERIANAL ABSCESS, SUPERFICIAL 08/13/08 PAST SURGICAL HISTORY OF 07/07 lumbar diskectomy PAST SURGICAL HISTORY OF Right 2015 TKR ALLERGIES Entex Pse [Pseudoephedrine-Guaifenesin] MEDICATIONS hydrOXYchloroQUINE (PLAQUENIL) 200 mg tablet Take 1 tablet by mouth every afternoon. insulin detemir U-100 (LEVEMIR U-100 INSULIN) 100 unit/mL injection Inject 14 Units subcutaneously daily at bedtime. traMADol (ULTRAM) 50 mg tablet Take 1 tablet by mouth every 6 hours as needed for up to 30 days. gabapentin (NEURONTIN) 400 mg capsule Take 1 capsule by mouth three times daily for 90 days. metFORMIN (GLUCOPHAGE) 1,000 mg tablet Take 1 tablet by mouth twice daily with meals. celecoxib (CELEBREX) 200 mg capsule Take 1 capsule by mouth twice daily. Take with food. gabapentin (NEURONTIN) 400 mg capsule Take 1 (ONE) capsule by mouth three times daily atorvastatin (LIPITOR) 20 mg tablet Take 1 tablet by mouth once daily. blood sugar diagnostic (TRUE METRIX GLUCOSE TEST STRIP) test strip Test blood sugar(s) 4 times daily. Insulin: Yes tamsulosin (FLOMAX) 0.4 mg TAKE 1 CAPSULE DAILY AT BEDTIME metoprolol succinate ER (TOPROL XL) 100 mg Take 0.5 tablets by mouth once daily. Insulin Syringe-Needle U-100 (BD ULTRAFINE INSULIN) 1 mL 31 gauge x 5/16 Use as directed once dailywith insulin DX: E11.65 DM: yes Insulin: yes Lancets lancets Test blood sugar(s) 4 times daily. Dx: Type 2 DM - Controlled E11.9 Insulin: Yes CPAP Initiate CPAP @ 7 cm of water with humidification. Mask (per patient preference) optional chinstrap (if indicated) , filters, tubing, humidifier and lifetime supplies. aspirin, enteric coated (ADULT ASPIRIN EC LOW STRENGTH) 81 mg EC tablet Take 1 tablet by mouth every 48 hours. COMPOUNDED PRESCRIPTION Accu-chek Lois Meter with multiclix lancet device use as directed multivitamin tablet Take 1 tablet by mouth once daily. (Patient not taking: Reported on 06/16/2023) FAMILY HISTORY Problem Relation Age of Onset Arthritis Mother other (AMI) Mother Asthma Father other ([place]) Father No Known Problems Daughter No Known Problems Daughter Social History Tobacco Use Smoking status: Former Types: Cigarettes Quit date: 09/12/1994 Years since quittin.7 Smokeless tobacco: Never Tobacco comments: No one in household smokes Vaping Use Vaping Use: Never used Substance Use Topics Alcohol use: No Drug use: No Social History Social History Narrative Not on file ROS: General: Feels well, no weight changes, fever, chills. HEENT: No sinus congestion, earache, sore throat. Cardiac: No chest pain, palpitations, shortness of breath Varicose veins. Seeing vascular Resp: No cough, wheeze. GI: No reflux symptoms, food intolerance, bowel changes. : No urinary frequency, dysuria. MS: aggravating of chronic back pain , no new pain or joint complaints. PHYSICAL EXAMINATION BP 109/68 Pulse 85 Ht 172.7 cm (5' 7.99) Wt 90.3 kg (199 lb) SpO2 96% BMI 30.26 kg/m General: Alert and oriented, no distress, pleasant and cooperative. Heart: Regular, normal S1 and S2, no murmurs, rubs, or gallops Lungs: Clear to auscultation bilaterally Abdomen: Benign Extremities: Feet/ankles without edema, posterior tibial pulses full and symmetrical Health Maintenance: Hepatitis B Vaccine(1 of 3 - Risk 3-dose series) Never done Dilated Retinal Exam due on 12/31/2021 Advance Directive Discussion due on 08/29/2022 Urine Albumin:Creatinine Ratio due on 09/21/2022 HBA1C due on 03/09/2023 Covid-19 Vaccine( - ) due on 04/29/2023 Colorectal Cancer Screening due on 05/31/2023 Influenza Vaccine(1) due on 02/26/2024 DTaP,Tdap,Td Vaccine(2 - Td or Tdap) due on 06/16/2024 RSV Vaccine(1 - 1-dose 60+ series) due on 06/16/2024 Shingrix Vaccine(1 of 2) due on 06/16/2024 Diabetic Foot Exam due on 08/25/2023 LDL Cholesterol due on 09/09/2023 Annual PCP Team Chronic Disease Visit due on 06/16/2024 BP Controlled (<130/80) due on 06/16/2024 Abdominal Aortic Aneurysm Screening Completed Depression Assessment Completed Hepatitis C Screening Completed Pneumococcal Vaccine: 65+ Completed Data reviewed PVR, last labs in spring. Assessment/Plan: (M51.36) Lumbar degenerative disc disease (primary encounter diagnosis) Comment: acute aggravation of chronic pain. Plan: he has his tramadol, Celebrex. Gabapentin . Can see Dr Johnson if not better. (Z23) Encounter for immunization Comment: Plan: [employer] COVID-19 VACCINE () AGE 12+ YR agrees (E11.40, Z79.4) Controlled type 2 diabetes mellitus with diabetic neuropathy, with long-term current use of insulin (HCC) Comment: due for lab in July. Plan: previously ordered (E78.2) Mixed hyperlipidemia Comment: Plan: previously ordered lab (I83.811) Varicose veins of leg with pain, right Comment: Plan: follow up with Dr Pool Of note he has been in sinus rhythm. Follow up with cardiology ;. Requested Prescriptions No prescriptions requested or ordered in this encounter RTO: lab in July. Follow up in November or so. Aaron Solorzano MD documented in this encounterC[facility] Hospital10-13-2023 Miscellaneous Notes* Telephone Encounter - Erica White - 06/10/2023 3:43 PM EDT Patient scheduled. * Telephone Encounter - Ruthann Allred APRN.NATHANAEL - 06/10/2023 2:10 PM EDT Please inform patient that they are due for OV and assist in scheduling with PCP team. Thanks. * Telephone Encounter - Annalise Woodard LPN - 06/10/2023 2:07 PM EDT Pharmacy verified in [facility] Patient has been identified by name and date of : Yes Patient aware RX will be sent to pharmacy. No need to notify patient. Patient phones for refill(s): Requested Prescriptions Pending Prescriptions Disp Refills insulin detemir U-100 (LEVEMIR U-100 INSULIN) 100 unit/mL injection 10 mL 0 Date of last office visit : 02/17/2023 Date of next office visit : Visit date not found Last 2 Encounter Wt Readings: Date: Wt: 02/17/2023 89.8 kg (198 lb) 02/05/2023 94.4 kg (208 lb 3.2 oz) Diabetes: Hemoglobin A1C (%) Date Value 09/09/2022 5.9 09/21/2021 5.9 09/21/2021 5.9 Please advise. Annalise Woodard LPN * Telephone Encounter - Milla Haro - 06/10/2023 1:09 PM EDT Patient has been identified by name and date of : Yes Requested Prescriptions Pending Prescriptions Disp Refills insulin detemir U-100 (LEVEMIR U-100 INSULIN) 100 unit/mL injection 10 mL 0 RX INSTRUCTIONS: Patient aware RX will be sent to pharmacy. No need to notify patient. Milla Haro documented in this encounterCleveland [facility]09-21-2023 Miscellaneous Notes* Telephone Encounter - Aimee Almanza - 05/19/2023 12:50 PM EDT [facility] is calling Aaron Solorzano MD today to request a medication that does not appear on current medication list: Tramadol 50 mg tablet taking every 6 hrs #120 refilss 0 Please send to [facility] [place] Patient has been identified by name and birthdate. Duration of symptoms: N/A Person calling: self Call patient at: at home [phone] (home) Was an appointment scheduled: No Closing statement: Results or non-symptom based questions: Thank you for calling [facility], your call will be returned within the next business day. Aimee Williamson documented in this encounterCleveland Clinic [facility]09-14-2023 Miscellaneous Notes* Telephone Encounter - Vernell Hernandez - 05/12/2023 5:31 PM EDT Received eval swelling left ring finger summary from [facility]. Placed in provider's inbox for review. Route to [place] scanning. documented in this encounterCleveland Clinic Med[facility] Hospital08-24-2023 Miscellaneous Notes* Telephone Encounter - Munira Solorzano - 04/21/2023 1:22 PM EDT Spoke with patient regarding missed appointment. Patient stated he called in to cancel appointment yesterday. Patient is seeing a different pain management provider and will call if he needs us in the future. Munira Solorzano documented in this [facility]2023 Miscellaneous Notes* Telephone Encounter - Annalise Woodard LPN - 04/18/2023 3:19 PM EDT Patient will call to scheduled appointment. * Telephone Encounter - Daxa Moody APRN.CNP - 04/18/2023 2:31 PM EDT Will need a visit and foot exam with Dr. Solorzano to prescribe, or his commercial account officer can prescribe if hehas one. Please schedule, Dr. Solorzano only. Daxa Moody APRN.CNP * Telephone Encounter - Veronica Chow - 04/18/2023 12:09 PM EDT Patient asking for diabetic shoes from [facility]. Patient asking for an order to be sent to [facility]/[place]. [phone] documented in this [facility]08-18-2023 Miscellaneous Notes* Telephone Encounter - Milla Haro - 04/15/2023 10:19 AM EDT Patient has been identified by name and date of : Yes Requested Prescriptions Pending Prescriptions Disp Refills gabapentin (NEURONTIN) 400 mg capsule 90 capsule 1 Sig: Take 1 (ONE) capsule by mouth three times daily RX INSTRUCTIONS: Patient aware RX will be sent to pharmacy. No need to notify patient. Milla Haro documented in this encounterCleveland Clinic [facility] Hospital07-06-2023 Miscellaneous Notes* Telephone Encounter - Nirali White - 03/03/2023 1:02 PM EDT Spoke with the patient unfortunately we do not have a sooner appt. Advised patient if sooner appt opens will call to schedule. Advised patient if any new or worsening symptoms he should contact his pcp office for follow up Encounter closed * Telephone Encounter - Gabriela Gustafson - 03/02/2023 4:14 PM EDT Pt trying to be seen sooner as his leg is swelling and painful to the touch. Please advise documented in this encounterCleveland Clinic [facility] Hospital07-05-2023 History of Present illness Narrative* Nadege Seo MA - 03/02/2023 9:28 AM EDT POPULATION HEALTH NAVIGATION OUTREACH Action/FYI Patient will call back later ANNUAL MEDICARE WELLNESS ADVANCE DIRECTIVE DISCUSSION due on 08/29/2022 COLORECTAL CANCER SCREENING Patient Identified by Name and : YES, via phone Outreach Outcome/Action Spoke to patient / parent / legal guardian: Patient will return the call or ask for return call Did you use a PCP flex slot to schedule this appointment? N/A Reason for Outreach Care Gap or Scheduling/Wellness visits Payer: Payor: MEDICARE / Plan: MEDICARE A AND B / Product Type: Medicare / Care Gap Reviewed:: Annual Wellness visit Colorectal Cancer Screening Reminder: Reminder note to check Health Maintenance for items below Health Maintenance items due: SHINGRIX VACCINE(1 of 2) Never done DTAP,TDAP,TD(2 - Td or Tdap) due on 04/27/2017 DILATED RETINAL EXAM due on 12/31/2021 ADVANCE DIRECTIVE DISCUSSION due on 08/29/2022 DEPRESSION ASSESSMENT due on 08/29/2022 COLORECTAL CANCER SCREENING due on 05/31/2023 Navigation Signature: Nadege Seo MA March 02, 2023 9:28 AM documented in this encounterCleveland Clinic [facility] Hospital06-23-2023 Miscellaneous Notes* Telephone Encounter - Aaron Solorzano MD - 02/18/2023 4:54 PM EDT The following approved medication requests have been transmitted electronically. Requested Prescriptions Signed Prescriptions Disp Refills hydrOXYchloroQUINE (PLAQUENIL) 200 mg tablet 90 tablet 1 Sig: Take 1 tablet by mouth once daily. Authorizing Provider: AARON SOLORZANO MD * Telephone Encounter - Annalise Woodard LPN - 02/18/2023 2:57 PM EDT Pharmacy verified in Epic Patient has been identified by name and date of : Yes Patient aware RX will be sent to pharmacy. No need to notify patient. Pharmacy phones for refill(s): Requested Prescriptions Pending Prescriptions Disp Refills hydrOXYchloroQUINE (PLAQUENIL) 200 mg tablet 90 tablet 1 Sig: Take 1 tablet by mouth once daily. Date of last office visit : 02/17/2023 Date of next office visit : Visit date not found Last 2 Encounter Wt Readings: Date: Wt: 02/17/2023 89.8 kg (198 lb) 02/05/2023 94.4 kg (208 lb 3.2 oz) Not applicable Please advise. Annalise Woodard LPN * Telephone Encounter - Vidhya Juárez [facility] - 02/18/2023 9:59 AM EDT [facility] We[facility] is calling Aaron Solorzano MD today he is calling to request the following medication, not on his current list: hydrOXYchloroQUINE (PLAQUENIL) 200 mg tablet 30 tablet 5 08/13/2022 02/09/2023 Sig: Take 1 tablet by mouth once daily. Sent to pharmacy as: hydrOXYchloroQUINE (PLAQUENIL) 200 mg tablet Class: Normal Route: ORAL Order: [id number] E-Prescribing Status: Receipt confirmed by pharmacy (08/13/2022 2:11 PM EST) Renewals Per Patient, he has one pill left today. Please send to [facility] today. Patient has been identified by name and birthdate. Duration of symptoms: N/A Person calling: self Call patient at: at home [phone] (home) Was an appointment scheduled: No Closing statement: Results or non-symptom based questions: Thank you for [facility], your call will be returned within the next business day. Vidhya Juárez Pss documented in this encounterCleveland [facility]06-22-2023 History of Present illness Narrative* Daxa Moody APRN.CLIENT SERVICES MANAGER - 02/17/2023 9:53 AM EDT Images from the original note were not included. This note was created using [employer]. Subjective Ascencion Weir is a 72 year old male. Patient reports painful varicose vein on right leg for a month. Has tried ice/heat, with no improvement. Voltaren gel with minimal relief. Pain is constant, feels like a nagging toothache, travels upand down the vein, keeps him awake at night. No redness, does feel some warmth. No surrounding tissue swelling. Went to the ER a week ago for this pain and had an ultrasound to rule out DVT. He called a vascular specialist for an appointment, but was told he needed a referral from his PCP. Has never seen a vascular doctor before. Review of Systems Cardiovascular: Negative for leg swelling. Skin: Positive for color change. PAST MEDICAL HISTORY Diagnosis Date Aortic valvar stenosis Arthritis BPH (benign prostatic hyperplasia) HTN (hypertension) LIAN (obstructive sleep apnea) Other and unspecified disc disorder of unspecified region Intervertebral disc disorders Other and unspecified hyperlipidemia Sciatica Type II or unspecified type diabetes mellitus without mention of complication, not stated as uncontrolled PAST SURGICAL HISTORY Procedure Laterality Date ARTHRS KNEE ABRASION ARTHRP/FLARE MAKER DRLG/MICROFX 2013 and 2014 [facility] and Dr. Thrasher with Kneecap CARDIAC CATH 03/18/2020 [facility] I/D PERIANAL ABSCESS, SUPERFICIAL 08/13/08 PAST SURGICAL HISTORY OF 07/07 lumbar diskectomy PAST SURGICAL HISTORY OF Right 2015 TKR ALLERGIES Entex Pse [Pseudoephedrine-Guaifenesin] MEDICATIONS gabapentin (NEURONTIN) 400 mg capsule Take 400 mg by mouth three times daily. LEVEMIR U-100 INSULIN 100 unit/mL injection Inject 14 Units subcutaneously daily at bedtime. metFORMIN (GLUCOPHAGE) 1,000 mg tablet Take 1 tablet by mouth twice daily with meals. celecoxib (CELEBREX) 200 mg capsule Take 1 capsule by mouth twice daily. Take with food. gabapentin (NEURONTIN) 400 mg capsule Take 1 (ONE) capsule by mouth three times daily atorvastatin (LIPITOR) 20 mg tablet Take 1 tablet by mouth once daily. blood sugar diagnostic (TRUE METRIX GLUCOSE TEST STRIP) test strip Test blood sugar(s) 4 times daily. Insulin: Yes tamsulosin (FLOMAX) 0.4 mg TAKE 1 CAPSULE DAILY AT BEDTIME metoprolol succinate ER (TOPROL XL) 100 mg Take 0.5 tablets by mouth once daily. Insulin Syringe-Needle U-100 (BD ULTRAFINE INSULIN) 1 mL 31 gauge x 5/16 Use as directed once dailywith insulin DX: E11.65 DM: yes Insulin: yes Lancets lancets Test blood sugar(s) 4 times daily. Dx: Type 2 DM - Controlled E11.9 Insulin: Yes CPAP Initiate CPAP @ 7 cm of water with humidification. Mask (per patient preference) optional chinstrap (if indicated) , filters, tubing, humidifier and lifetime supplies. aspirin, enteric coated (ADULT ASPIRIN EC LOW STRENGTH) 81 mg EC tablet Take 1 tablet by mouth every 48 hours. multivitamin tablet Take 1 tablet by mouth once daily. COMPOUNDED PRESCRIPTION Accu-chek Lois Meter with multiclix lancet device use as directed FAMILY HISTORY Problem Relation Age of Onset Arthritis Mother other (AMI) Mother Asthma Father other (RI) Father No Known Problems Daughter No Known Problems Daughter Social History Tobacco Use Smoking status: Former Types: Cigarettes Quit date: 09/12/1994 Years since quittin.4 Smokeless tobacco: Never Tobacco comments: No one in household smokes Vaping Use Vaping Use: Never used Substance Use Topics Alcohol use: No Drug use: No Objective BP 128/59 Pulse 73 Ht 172.7 cm (5' 7.99) Wt 89.8 kg (198 lb) BMI 30.11 kg/m Physical Exam Vitals and nursing note reviewed. Constitutional: Appearance: He is well-developed. Pulmonary: Effort: Pulmonary effort is normal. Musculoskeletal: Legs: Comments: Varicose vein bulging in calf area, not in the thigh area, but is tender in distal thigh,no redness/warmth Skin: General: Skin is warm and dry. Neurological: Mental Status: He is alert and oriented to person, place, and time. Assessment and Plan 1. Varicose veins of leg with pain, right Patient would like to consult with vascular medicine regarding treatment for painful varicose vein. - CONSULT TO VASCULAR MEDICINE; Future documented in this encounterC[facility]06-16-2023 Miscellaneous Notes* Telephone Encounter - Aaron Solorzano MD - 02/11/2023 3:11 PM EDT The following approved medication requests have been transmitted electronically. Requested Prescriptions Signed Prescriptions Disp Refills LEVEMIR U-100 INSULIN 100 unit/mL injection 10 mL 0 Sig: Inject 14 Units subcutaneously daily at bedtime. Authorizing Provider: AARON SOLORZANO MD * Telephone Encounter - Annalise Woodard LPN - 02/11/2023 1:35 PM EDT Pharmacy verified in [facility] Patient has been identified by name and date of : Yes Patient aware RX will be sent to pharmacy. No need to notify patient. Pharmacy phones for refill(s): Requested Prescriptions Pending Prescriptions Disp Refills LEVEMIR U-100 INSULIN 100 unit/mL injection [Pharmacy Med Name: Levemir U-100 Insulin 100 unit/mL subcutaneous solution] 10 mL 0 Sig: Inject 14 Units subcutaneously daily at bedtime. Date of last office visit : 01/07/2023 Date of next office visit : Visit date not found Last 2 Encounter Wt Readings: Date: Wt: 02/05/2023 94.4 kg (208 lb 3.2 oz) 01/07/2023 94.3 kg (208 lb) Diabetes: Hemoglobin A1C (%) Date Value 09/09/2022 5.9 09/21/2021 5.9 09/21/2021 5.9 Please advise. Annalise Woodard LPN documented in this encounterCleveland Clinic Med[facility]06-10-[address] Correia [facility] February 05, 2023 4:17pm Note Date/Time February 05, 2023 2:46 pm [facility] Medical Records Department [address] [place] [address] Emergency Department Summary 02/05/23 MR#: [id number] Acct: [id number] Name: ASCENCION WEIR Rep #:[id number] 134 : 1950 72 From: Alan Correia DO PCP: Dr. Mike Solorzano MD Status:REG ER Location: ED HPI History of Present Illness Chief Complaint: Male Pain/Injury Detail of Chief Complaint: Right thigh pain Informant: patient Narrative Narrative: Patient presents with right thigh pain x1 month. He denies injury. Patient states the pain kind of starts on the medial aspect of the knee or just above the knee and radiates towards the groin at times. He denies any recent travel or surgery. No history of DVT. His was concerned this could be a blood clot and she insisted he come get it evaluated. Patient denies chest pain or shortness of breath. He denies testicular pain. Denies back pain. [facility] Medical History Abnormal echocardiogram Asthmatic bronchitis with exacerbation Atherosclerotic heart disease of [place] coronary artery without angina pectoris Benign essential hypertension Benign prostatic hypertrophy Dyspnea on exertion HLD (hyperlipidemia) Intractable back pain Multi-vessel coronary artery stenosis Nonrheumatic aortic (valve) stenosis Obesity Obstructive sleep apnea syndrome Pain Physical debility Postoperative atrial fibrillation Type II diabetes mellitus Home Medications aspirin 81 mg chewable tablet 81 mg PO DAILY heart health 11/21/16 [History Last Taken 03/18/20] metformin 500 mg tablet 1,000 mg PO BIDCM diabetes 11/21/16 [History Last Taken 03/17/20] tamsulosin 0.4 mg capsule 0.4 mg PO QHS BPH 11/21/16 [History Last Taken 01/01/18] gabapentin 400 mg capsule 400 mg PO TID 02/28/20 [History Last Taken Unknown] hydroxychloroquine 200 mg tablet 200 mg PO DAILY 02/28/20 [History Last Taken Unknown] tramadol 50 mg tablet 50 mg PO Q6H PRN PRN Pain Or Fever 05/29/20 [History Last Taken Unknown] multivitamin 1 tab PO DAILY 06/09/20 [History Last Taken Unknown] celecoxib 200 mg capsule (Celebrex) 200 mg PO BID 06/27/20 [History Last Taken Unknown] insulin detemir U-100 100 unit/mL (3 mL) subcutaneous pen (Levemir FlexTouch U- 100 Insulin) 15 unit subcut QHS 06/27/20 [History Last Taken Unknown] atorvastatin 20 mg tablet 20 mg PO QHS 12/22/20 [History Last Taken Unknown] metoprolol tartrate 25 mg tablet 12.5 mg PO BID 12/22/20 [History Last Taken Unknown] Allergy/AdvReac Type Severity Reaction Status Date / Time No Known Allergies Allergy Verified 02/05/23 14:48 Family History (Reviewed 08/16/22 @ 14:01 by Susanna Welch SECURITY VEHICLE PATROL OFFICER, SECURITY VEHICLE PATROL OFFICER-C) Father Myocardial infarction, Onset Age: 73 Mother Myocardial infarction, Onset Age: 68 Surgical History History of aortic valve replacement with bioprosthetic valve (~05/08/20) History of coronary artery bypass surgery (~05/08/20) History of knee replacement History of left heart catheterization (03/18/20) History of total knee arthroplasty Social History Smoking Status: Former smoker alcohol intake: never substance use type: does not use caffeine: Yes Type: coffee Number of servings: 3 ROS ROS ED Review of Systems ROS Unobtainable: other Constitutional Constitutional ED: Reports lethargy; Denies chills, fever(s), sweats or weight loss Eyes Eyes: Denies blurry vision, change in vision or diplopia ENT ENT ED: Denies rhinorrhea or sore throat Cardiovascular Cardiovascular: Denies chest pain, orthopnea or racing heartbeat Respiratory/Chest Respiratory/Chest: Denies cough, dyspnea, dyspnea on exertion, orthopnea or sputum Gastrointestinal Gastrointestinal: Denies abdominal pain, diarrhea, nausea or vomiting Genitourinary Genitourinary ED: Denies dysuria, hematuria or urinary frequency Musculoskeletal Musculoskeletal: Reports other Details: Right thigh pain ; Denies arthralgias, back pain, myalgias or neck pain Integumentary Denies abscess, Abrasions or rash Neurologic Neurologic: Denies headache(s) or weakness Psychiatric Psychiatric: Denies anxiety, depression or suicidal thoughts Endocrine Endocrinology: Denies polydipsia, polyphagia or polyuria Hematologic/Lymphatic Hematologic/Lymphatic: Denies easy bleeding, easy bruising or lymphadenopathy Allergic/Immunologic Allergic/Immunologic ED: Denies mouth swelling, tongue swelling or urticaria EXAM Physical Exam Const Vital Signs: 02/05/23 14:06 02/05/23 15:06 Temperature 97 F L Temperature Source Temporal Pulse Rate 81 71 Respiratory Rate 14 18 Blood Pressure 172/68 H 131/40 H Blood Pressure Mean 102 70 Pulse Ox 98 94 Oxygen Delivery Method Room Air Room Air Positive well nourished and well developed General Appearance ED: well developed and NAD HEENT Reports TM's clear and moist mucous membranes normocephalic and atraumatic; Negative for trauma or tenderness Tympanic Membrane ED: Yes TM's clear Eyes PERRL and EOMs intact bilaterally General Eye ED: Negative for pale conjunctiva or scleral icterus Neck no lymphadenopathy, supple and no JVD General: Negative for tenderness Chest Wall inspection of chest normal and palpation of chest normal Chest: Negative for tenderness Resp normal respiratory effort and clear to auscultation bilaterally Effort and Inspection: Negative for respiratory distress or pain with movement Auscultation: Negative for rhonchi, wheezes or diminished lung sounds Cardio regular rate, regular rhythm, S1 normal heart sound, S2 normal heart sound and no murmurs Peripheral Pulses: pulses 2+ throughout GI normal to inspection, nondistended, normoactive bowel sounds, soft to palpation,non-tender, non-distended and no masses Back/Spine no CVA tenderness and no thoracic nor lumbar tenderness Extremity Extremity Narrative: Right lower extremity-patient has tenderness palpation over the medial aspect ofthe right thigh. He does have some increased engorgement of veins right leg compared to left leg. Negative Homans' sign. No ropes or cords palpated. No cellulitic changes. No bony tenderness. General Extremety ED: Negative for edema General Extremity: Negative for edema Neuro oriented x3, CN's II-XII intact bilaterally, no sensory deficits noted and gait normal Sensorium / Orientation: awake, alert, oriented to person, oriented to place andoriented to time Motor Exam: strength 5/5 throughout and strength abnormal Psych mental status grossly normal Skin no rashes or lesions noted and no wounds MDM MDM MDM Narrative Medical decision making narrative: Patient presents with right leg pain its been going on for a month. He denies injury or trauma. Patient states pain is intermittent but can be severe at times in the medial aspect of his right thigh. It seems to originate just abovethe knee and now radiating towards the right groin. It can be reproduced with palpation. Worse with certain movements such as walking. I did obtain basic lab work that showed a normal white count. Chemistries were unremarkable. D-dimer when corrected for age was normal. We do not have ultrasound available today to obtain a venous Doppler to rule out DVT. Although given normal D-dimerI feel this was unlikely. I did obtain an x-ray of the femur as well and on my interpretation I do not appreciate any abnormalities. This point etiology of his pain is unclear if this is muscular pain versus neuropathic type pain. I will have patient come back tomorrow for venous Doppler to rule out DVT. I willnot anticoagulate him in the meantime as my suspicion is low and he had a normalD-dimer. Patient otherwise will be given referral to follow-up with orthopedicswithin the next 3 to 5 days. Lab Data Attestation: I reviewed the patient's lab results. Labs: Laboratory Results - last 24 hr 02/05/23 02/05/23 02/05/23 14:58 14:58 14:58 WBC 6.2 RBC 4.29 L Hgb 13.0 Hct 37.8 L MCV 88.1 MCH 30.3 MCHC 34.4 RDW Std Deviation 39.3 RDW Coeff of Liang 12.3 Plt Count 192 MPV 8.9 Immature Gran % (Auto) 0.300 Neut % (Auto) 62.0 Lymph % (Auto) 22.7 [place] % (Auto) 11.3 H Eos % (Auto) 3.1 Baso % (Auto) 0.6 Absolute Neuts (auto) 3.8 Absolute Lymphs (auto) 1.40 Nucleated RBC % 0 D-Dimer Quant (PE/DVT) 0.66 H* Sodium 131 L Potassium 5.0 Chloride 99 Carbon Dioxide 26.0 Anion Gap 6 BUN 17 Creatinine 0.96 Estim Creat Clear Calc 65.31 Est GFR (MDRD) Af Amer 98 Est GFR (MDRD) Non-Af 81 BUN/Creatinine Ratio 17.7 Glucose 96 Calcium 9.1 Radiography Diagnostic Testin view x-ray right femur obtained interpreted by myself as no acute fractures orbony lytic lesions. Patient does have what appears to be a vascular calcification on my interpretation but otherwise do not appreciate any other soft tissue abnormalities. Official report from radiology pending. Discharge Plan Triage Chief Complaint: Male Pain/Injury ED Provider: Alan Correia Dx/Rx/DC Orders Clinical Impression: Acute pain of right thigh Instructions: ED Pain, Acute, Uncertain Cause Prescriptions: No Action hydroxychloroquine 200 mg tablet 200 mg PO DAILY gabapentin 400 mg capsule 400 mg PO TID multivitamin Tablet 1 tab PO DAILY metoprolol tartrate 25 mg tablet 12.5 mg PO BID atorvastatin 20 mg tablet 20 mg PO QHS metformin 500 MG tablet 1,000 mg PO BIDCM Label Comments: diabetes tamsulosin 0.4 MG capsule 0.4 mg PO QHS Label Comments: bladder aspirin 81 MG tablet,chewable 81 mg PO DAILY Label Comments: heart health tramadol 50 MG tablet 50 mg PO Q6H PRN PRN (Reason: Pain Or Fever) Levemir FlexTouch U100 Insulin 100 unit/mL (3 mL) insulin pen 15 unit SC QHS celecoxib [Celebrex] 200 mg capsule 200 mg PO BID Primary Care Provider: Mike Solorzano Referrals: Mike Solorzano MD [Primary Care Provider] - Nabor Thrasher DO [Med Staff - Active Staff] - 3-5 Days Disposition Disposition: Home, Self Care What to do if you have Problems For any increased pain, shortness of breath, bleeding, nausea or vomiting, chestpain, or any unexpected problems, contact your Primary Care Provider. Call [facility] ([phone]) or report to the closest Emergency Room. Call 911 if necessary. 02/05/237 <Electronically signed by Alan Correia DO> Cosigner Signature (if applicable): CC: Dr. Mike Solorzano MD ~ Signed [facility] Work Phone: [phone]) 260-137305-11-2023 Miscellaneous Notes* Telephone Encounter - Daxa Moody APRN.CLIENT SERVICES MANAGER - 01/06/2023 4:05 PM EDT Addressed in another encounter. Daxa Moody APRN.CNP * Telephone Encounter - Reyna Campbell RN - 01/06/2023 3:55 PM EDT Last office visit 08/25/22. Next office visit not yet scheduled. Also see request for amoxicillin, separate encounter. * Telephone Encounter - Amanda Fowler Pss - 01/06/2023 2:22 PM EDT traMADol (ULTRAM) 50 mg tablet 120 tablet 0 10/26/2022 11/25/2022 Sig: Take 1 tablet by mouth every 6 hours as needed for up to 30 days. Sent to pharmacy as: traMADol (ULTRAM) 50 mg tablet Class: Normal Route: [facility]. Amanda Fowler Pss documented in this encounterCleveland Clinic Med[facility] Hospital04-05-2023 Miscellaneous Notes* Telephone Encounter - Vernell Hernandez - 12/01/2022 8:20 AM EDT Received orders for CPAP supplies from [facility]. Placed in provider's inbox for review. Route to [place] fax documented in this encounterCleveland Clinic Med[facility] Hospital03-17-2023 Miscellaneous Notes* Telephone Encounter - Annalise Woodard LPN - 11/12/2022 11:04 AM EDT Received 11/12/2022 from [facility] . Placed in provider's inbox for review. Route to [place] for faxing documented in this encounterCleveland Clinic Medina Hospital02-28-2023 Miscellaneous Notes* Telephone Encounter - Aaron Solorzano MD - 10/26/2022 11:29 AM EST The following approved medication requests have been transmitted electronically. Requested Prescriptions Signed Prescriptions Disp Refills traMADol (ULTRAM) 50 mg tablet 120 tablet 0 Sig: Take 1 tablet by mouth every 6 hours as needed for up to 30 days. Authorizing Provider: AARON SOLORZANO MD * Telephone Encounter - Reyna Campbell RN - 10/26/2022 10:53 AM EST Most recent visit 08/25/2022. No upcoming appointments scheduled. Requested Prescriptions Pending Prescriptions Disp Refills traMADol (ULTRAM) 50 mg tablet 120 tablet 0 Sig: Take 1 tablet by mouth every 6 hours as needed for up to 30 days. * Telephone Encounter - Amanda Fowler Pss - 10/26/2022 10:33 AM EST traMADol (ULTRAM) 50 mg tablet 120 tablet 0 07/27/2022 08/26/2022 Sig: Take 1 tablet by mouth every 6 hours as needed for up to 30 days. Sent to pharmacy as: traMADol (ULTRAM) 50 mg tablet If you can please send this to [facility] in [place]. Amanda Fowler Pss documented in this encounterCleveland Clinic Med[facility] Hospital01-16-2023 Miscellaneous Notes* Telephone Encounter - Ariadna Mitchell RN - 09/13/2022 12:24 PM EST Spoke with patient, message and recommendations from provider given * Telephone Encounter - Daxa Moody APRN.NATHANAEL - 09/13/2022 11:09 AM EST Let patient know that his labs are overall ok. His sodium level was a little low, slightly better than 1 year ago. This could be a result of one of his medications and I'd like him to repeat his labsin 3 months to ensure stability. Orders placed, nonfasting. Daxa Moody APRN.CNP documented in this encounterCleveland Clinic Medina Hospital12-28-2022 History of Present illness Narrative* Daxa Moody APRN.CNP - 08/25/2022 10:30 AM EST This note was created using [employer]. Subjective Ascencion Weir is a 72 year old male. Patient here for chronic care follow-up. Last PCP visit in August 2021, due for labs in one month.Needs refills on gabapentin and levemir. DMII: checks blood sugars daily. Stopped trulicity due to cost, about 4-6 months ago. Fasting todaywas 93, nothing over 200. Rare symptoms of low blood sugar, usually related to diet, resolves easily with orange juice. Health maintenance: declines flu vaccine, accepts covid booster today. Does not have advance directives done, packet given today to discuss with , recommend to bring completed paperwork back for scanning into chart. Patient reports eye exam was completed in 2021. Review of Systems Constitutional: Negative for unexpected weight change. Respiratory: Negative for shortness of breath. Cardiovascular: Negative for chest pain. Gastrointestinal: Negative for abdominal pain. Genitourinary: Negative for difficulty urinating. Allergic/Immunologic: Positive for immunocompromised state. Neurological: Positive for numbness. Negative for weakness. PAST MEDICAL HISTORY Diagnosis Date Aortic valvar stenosis Arthritis BPH (benign prostatic hyperplasia) HTN (hypertension) LIAN (obstructive sleep apnea) Other and unspecified disc disorder of unspecified region Intervertebral disc disorders Other and unspecified hyperlipidemia Sciatica Type II or unspecified type diabetes mellitus without mention of complication, not stated as uncontrolled PAST SURGICAL HISTORY Procedure Laterality Date ARTHRS KNEE ABRASION ARTHRP/FLARE MAKER DRLG/MICROFX 2013 and 2014 [facility] and Dr. Thrasher with Kneecap CARDIAC CATH 03/18/2020 [facility] I/D PERIANAL ABSCESS, SUPERFICIAL 08/13/08 PAST SURGICAL HISTORY OF 07/07 lumbar diskectomy PAST SURGICAL HISTORY OF Right 2015 TKR ALLERGIES Entex Pse [Pseudoephedrine-Guaifenesin] MEDICATIONS hydrOXYchloroQUINE (PLAQUENIL) 200 mg tablet Take 1 tablet by mouth once daily. traMADol (ULTRAM) 50 mg tablet Take 1 tablet by mouth every 6 hours as needed for up to 30 days. celecoxib (CELEBREX) 200 mg capsule Take 1 capsule by mouth twice daily. Take with food. atorvastatin (LIPITOR) 20 mg tablet Take 1 tablet by mouth once daily. metFORMIN (GLUCOPHAGE) 1,000 mg tablet Take 1 tablet by mouth twice daily with meals. blood sugar diagnostic (TRUE METRIX GLUCOSE TEST STRIP) test strip Test blood sugar(s) 4 times daily. Insulin: Yes tamsulosin (FLOMAX) 0.4 mg TAKE 1 CAPSULE DAILY AT BEDTIME metoprolol succinate ER (TOPROL XL) 100 mg TAKE 1/2 (ONE-HALF) OF A TABLET EVERY DAY Insulin Syringe-Needle U-100 (BD ULTRAFINE INSULIN) 1 mL 31 gauge x 5/16 Use as directed once dailywith insulin DX: E11.65 DM: yes Insulin: yes Lancets lancets Test blood sugar(s) 4 times daily. Dx: Type 2 DM - Controlled E11.9 Insulin: Yes TENS unit and electrodes cmpk Use as instructed. CPAP Initiate CPAP @ 7 cm of water with humidification. Mask (per patient preference) optional chinstrap (if indicated) , filters, tubing, humidifier and lifetime supplies. aspirin, enteric coated (ADULT ASPIRIN EC LOW STRENGTH) 81 mg EC tablet Take 1 tablet by mouth every 48 hours. multivitamin tablet Take 1 tablet by mouth once daily. COMPOUNDED PRESCRIPTION Accu-chek Lois Meter with multiclix lancet device use as directed gabapentin (NEURONTIN) 400 mg capsule Take 1 (ONE) capsule by mouth three times daily insulin detemir U-100 (LEVEMIR U-100 INSULIN) 100 unit/mL injection Inject 14 Units subcutaneously daily at bedtime. FAMILY HISTORY Problem Relation Age of Onset Arthritis Mother other (AMI) Mother Asthma Father other (RI) Father No Known Problems Daughter No Known Problems Daughter Social History Tobacco Use Smoking status: Former Types: Cigarettes Quit date: 09/12/1994 Years since quittin.9 Smokeless tobacco: Never Tobacco comments: No one in household smokes Vaping Use Vaping Use: Never used Substance Use Topics Alcohol use: No Drug use: No Objective BP 125/73 Pulse 77 Ht 172.7 cm (5' 7.99) Wt 98.4 kg (217 lb) BMI 33.00 kg/m Physical Exam Vitals and nursing note reviewed. Constitutional: Appearance: He is well-developed. He is not ill-appearing. Cardiovascular: Rate and Rhythm: Regular rhythm. Pulses: Dorsalis pedis pulses are 2+ on the right side and 2+ on the left side. Posterior tibial pulses are 2+ on the right side and 2+ on the left side. Heart sounds: Normal heart sounds. Pulmonary: Effort: Pulmonary effort is normal. Breath sounds: Normal breath sounds. Feet: Right foot: Protective Sensation: 6 sites tested. 6 sites sensed. Skin integrity: Skin integrity normal. Toenail Condition: Right toenails are normal. Left foot: Protective Sensation: 6 sites tested. 6 sites sensed. Skin integrity: Skin integrity normal. Toenail Condition: Left toenails are normal. Skin: General: Skin is warm and dry. Neurological: Mental Status: He is alert and oriented to person, place, and time. Gait: Gait normal. Psychiatric: Mood and Affect: Mood normal. Behavior: Behavior normal. Thought Content: Thought content normal. Assessment and Plan 1. Controlled type 2 diabetes mellitus with diabetic neuropathy, with long-term current use of insulin (HCC) Recheck labs in 1 month, continue current medications. - gabapentin (NEURONTIN) 400 mg capsule; Take 1 (ONE) capsule by mouth three times daily Dispense: 90 capsule; Refill: 3 - insulin detemir U-100 (LEVEMIR U-100 INSULIN) 100 unit/mL injection; Inject 14 Units subcutaneously daily at bedtime. Dispense: 10 mL; Refill: 0 - HGB A1C; Future - COMP METABOLIC PANEL; Future - ALBUMIN RANDOM URINE; Future 2. Mixed hyperlipidemia Recheck labs next month, continue Lipitor. - LIPID PANEL BASIC; Future 3. Encounter for immunization - LiquiGlide COVID-19 BIVALENT BOOSTER VACCINE, AGE 12+ YR 4. Depression screening Negative. - DEPRESSION SCREENING/ASSESSMENT 5. Advanced care planning/counseling discussion Packet given, advised to complete and return for scanning into chart. - ADVANCE CARE PLAN DISCUSSION Daxa Moody APRN.NATHANAEL documented in this encounterC[facility]12-22-2022 Miscellaneous Notes* Telephone Encounter - Erica White - 08/19/2022 10:13 AM EST Patient is scheduled. * Telephone Encounter - Daxa Moody APRN.CNP - 08/18/2022 2:51 PM EST Patient is due for a diabetes management visit, please assist with scheduling. Daxa Moody APRN.NATHANAEL * Telephone Encounter - Annalise Woodard LPN - 08/18/2022 2:16 PM EST Pharmacy verified in [facility] Patient has been identified by name and date of : Yes Patient aware RX will be sent to pharmacy. No need to notify patient. Patient phones for refill(s): Requested Prescriptions Pending Prescriptions Disp Refills insulin detemir U-100 (LEVEMIR U-100 INSULIN) 100 unit/mL injection 10 mL 0 Sig: Inject 14 Units subcutaneously daily at bedtime. Date of last office visit : 09/08/2021 Date of next office visit : Visit date not found Last 2 Encounter Wt Readings: Date: Wt: 10/26/2021 100.7 kg (222 lb) 09/08/2021 101.4 kg (223 lb 8 oz) Diabetes: Hemoglobin A1C (%) Date Value 09/21/2021 5.9 09/21/2021 5.9 Please advise. Annalise Woodard LPN * Telephone Encounter - Peggy Cano - 08/18/2022 1:56 PM EST Pharmacy verified in [facility] Patient has been identified by name and date of : Yes Patient aware RX will be sent to pharmacy. No need to notify patient. Patient phones for refill(s): Requested Prescriptions Pending Prescriptions Disp Refills insulin detemir U-100 (LEVEMIR U-100 INSULIN) 100 unit/mL injection 10 mL 0 Sig: Inject 14 Units subcutaneously daily at bedtime. Date of last office visit : 09/08/2021 Date of next office visit : Visit date not found Last 2 Encounter Wt Readings: Date: Wt: 10/26/2021 100.7 kg (222 lb) 09/08/2021 101.4 kg (223 lb 8 oz) Please advise. Peggy Roth Pss documented in this encounterCleveland Clinic Med[facility]12-19-2022 Miscellaneous Notes* Telephone Encounter - Vernell Hernandez - 08/16/2022 4:59 PM EST Received f/u visit summary from [place] [facility]. Placed in provider's inbox for review. Route to [place] scanning documented in this encounterCleveland Clinic Medina Hospital12-16-2022 Miscellaneous Notes* Telephone Encounter - Aaron Solorzano MD - 08/13/2022 2:00 PM EST The following approved medication requests have been transmitted electronically. Requested Prescriptions Signed Prescriptions Disp Refills hydrOXYchloroQUINE (PLAQUENIL) 200 mg tablet 30 tablet 5 Sig: Take 1 tablet by mouth once daily. Authorizing Provider: AARON SOLORZANO MD * Telephone Encounter - Annalise Woodard LPN - 08/13/2022 12:47 PM EST Pharmacy verified in [facility] Patient has been identified by name and date of : Yes Patient aware RX will be sent to pharmacy. No need to notify patient. Patient phones for refill(s): Requested Prescriptions Pending Prescriptions Disp Refills hydrOXYchloroQUINE (PLAQUENIL) 200 mg tablet [Pharmacy Med Name: hydroxychloroquine 200 mg tablet] 30 tablet 5 Sig: Take 1 tablet by mouth once daily. Date of last office visit : 09/08/2021 Date of next office visit : Visit date not found Last 2 Encounter Wt Readings: Date: Wt: 10/26/2021 100.7 kg (222 lb) 09/08/2021 101.4 kg (223 lb 8 oz) Not applicable Please advise. Annalise Woodard LPN documented in this encounterCleveland Clinic Medina Hospital11-29-2022 Miscellaneous Notes* Telephone Encounter - Aaron Solorzano MD - 07/27/2022 5:27 PM EST The following approved medication requests have been transmitted electronically. Requested Prescriptions Signed Prescriptions Disp Refills traMADol (ULTRAM) 50 mg tablet 120 tablet 0 Sig: Take 1 tablet by mouth every 6 hours as needed for up to 30 days. Authorizing Provider: AARON SOLORZANO MD * Telephone Encounter - Annalise Woodard LPN - 07/27/2022 2:52 PM EST Pharmacy verified in [facility] Patient has been identified by name and date of : Yes Patient aware RX will be sent to pharmacy. No need to notify patient. Patient phones for refill(s): Requested Prescriptions Pending Prescriptions Disp Refills traMADol (ULTRAM) 50 mg tablet 120 tablet 0 Sig: Take 1 tablet by mouth every 6 hours as needed for up to 30 days. Date of last office visit : 09/08/2021 Date of next office visit : Visit date not found Last 2 Encounter Wt Readings: Date: Wt: 10/26/2021 100.7 kg (222 lb) 09/08/2021 101.4 kg (223 lb 8 oz) Not applicable Please advise. Annalise Woodard LPN * Telephone Encounter - Peggy Roth Pss - 07/26/2022 10:56 AM EST [facility] is calling to request a refill on his tramadol. Please send to the [facility] in [place]. documented in this encounterCleveland Clinic Medina Hospital11-28-2022 Miscellaneous Notes* Telephone Encounter - Vernell Hernandez - 07/26/2022 8:17 AM EST Pharmacy verified in [facility] Patient has been identified by name and date of : Yes Patient aware RX will be sent to pharmacy. No need to notify patient. Pharmacy phones for refill(s): Requested Prescriptions Pending Prescriptions Disp Refills celecoxib (CELEBREX) 200 mg capsule 60 capsule 5 Sig: Take 1 capsule by mouth twice daily. Take with food. Date of last office visit : 09/08/2021 Date of next office visit : Visit date not found Last 2 Encounter Wt Readings: Date: Wt: 10/26/2021 100.7 kg (222 lb) 09/08/2021 101.4 kg (223 lb 8 oz) Not applicable Please advise. Vernell Hernandez documented in this encounterCleveland Clinic Medina Hospital10-07-2022 Miscellaneous Notes* Telephone Encounter - Reyna Campbell RN - 06/04/2022 2:42 PM EDT Called patient to discuss provider message. He verbalized understanding and has no questions. * Telephone Encounter - Carrie Vasquez PA-C - 06/04/2022 2:21 PM EDT Please let pt know that his fecal occult is negative. Repeat in one year or consider a colonoscopy in the future. Thanks Carrie Vasquez PA-C Covering for Dr. Solorzano documented in this encounterCleveland Clinic Medina Hospital10-04-2022 Miscellaneous Notes* Telephone Encounter - Ariadna Mitchell RN - 06/01/2022 10:24 AM EDT Patient phones requesting refills as follows: Requested Prescriptions Pending Prescriptions Disp Refills insulin detemir U-100 (LEVEMIR U-100 INSULIN) 100 unit/mL injection 10 mL 0 Sig: Inject 14 Units subcutaneously daily at bedtime. Order pended Last OV 09/08/21 Next OV - Not scheduled Please review and advise. Ariadna Mitchell, RN * Telephone Encounter - Skylar Hamlin Pss - 05/31/2022 12:41 PM EDT Patient has been identified by name and date of : Yes Requested Prescriptions Pending Prescriptions Disp Refills insulin detemir U-100 (LEVEMIR U-100 INSULIN) 100 unit/mL injection 10 mL 0 Sig: Inject 14 Units subcutaneously daily at bedtime. RX INSTRUCTIONS: Patient aware RX will be sent to pharmacy. No need to notify patient. Skylar Hamlin Pss documented in this encounterCleveland Clinic Med[facility] Hospital09-19-2022 Miscellaneous Notes* Telephone Encounter - Ariadna Hughes LPN - 05/17/2022 10:13 AM EDT Kit mailed with letter. Ariadna Hughes LPN * Telephone Encounter - Carrie Vasquez PA-C - 05/17/2022 9:29 AM EDT Please let pt know that he is due for FOBT and mail kit. Thanks Carrie Vasquez PA-C documented in this encounterCleveland Clinic Med[facility] Hospital07-29-2022 Miscellaneous Notes* Telephone Encounter - Aaron Solorzano MD - 03/26/2022 10:31 AM EDT The following approved medication requests have been transmitted electronically. Signed Prescriptions Disp Refills gabapentin (NEURONTIN) 400 mg capsule 90 capsule 3 Sig: Take 1 (ONE) capsule by mouth three times daily CHARLENE: No Authorizing Provider: AARON SOLORZANO insulin detemir U-100 (LEVEMIR U-100 INSULIN) 100 unit/mL injection 10 mL 0 Sig: Inject 14 Units subcutaneously daily at bedtime. CHARLENE: No Authorizing Provider: AARON SOLORZANO MD * Telephone Encounter - Annalise Woodard LPN - 03/26/2022 9:45 AM EDT Pharmacy verified in [facility] Patient has been identified by name and date of : Yes Patient aware RX will be sent to pharmacy. No need to notify patient. Patient phones for refill(s): Pending Prescriptions Disp Refills GABAPENTIN 400 MG CAPSULE 90 capsule 3 Sig: Take 1 (ONE) capsule by mouth three times daily CHARLENE: No INSULIN DETEMIR (U-100) 100 UNIT/ML SUBCUTANEOUS SOLUTION 10 mL 0 Sig: Inject 14 Units subcutaneously daily at bedtime. CHARLENE: No Date of last office visit : 09/08/2021 Date of next office visit : Visit date not found Last 2 Encounter Wt Readings: Date: Wt: 10/26/2021 100.7 kg (222 lb) 09/08/2021 101.4 kg (223 lb 8 oz) Diabetes: Hemoglobin A1C (%) Date Value 09/21/2021 5.9 09/21/2021 5.9 Please advise. Annalise Woodard LPN * Telephone Encounter - Dorinda Cano - 03/26/2022 9:37 AM EDT Patient has been identified by name and date of : Yes Pending Prescriptions Disp Refills GABAPENTIN 400 MG CAPSULE 90 capsule 3 Sig: Take 1 (ONE) capsule by mouth three times daily CHARLENE: No INSULIN DETEMIR (U-100) 100 UNIT/ML SUBCUTANEOUS SOLUTION 10 mL 0 Sig: Inject 14 Units subcutaneously daily at bedtime. CHARLENE: No RX INSTRUCTIONS: Patient aware RX will be sent to pharmacy. No need to notify patient. Dorinda Cano documented in this encounterCleveland Clinic Med[facility] Hospital07-25-2022 Miscellaneous Notes* Telephone Encounter - Annalise Woodard LPN - 03/22/2022 8:09 AM EDT Received 03/19/2022 from [facility]. Placed in provider's inbox for review. Route to [place] scanning documented in this encounterCleveland Clinic Med[facility] Hospital07-19-2022 Miscellaneous Notes* Telephone Encounter - Vernell Hernandez - 03/16/2022 1:36 PM EDT Received chest xray results for chest pain from [facility]. Placed in provider's inbox for review. Route to [place] scanning. documented in this encounterCleveland Clinic Med[facility] Hospital06-20-2022 Miscellaneous Notes* Telephone Encounter - Aaron Solorzano MD - 02/15/2022 3:02 PM EDT The following approved medication requests have been transmitted electronically. Signed Prescriptions Disp Refills traMADol (ULTRAM) 50 mg tablet 120 tablet 0 Sig: Take 1 tablet by mouth every 6 hours as needed for up to 30 days. ALEJANDRO Class: C-IV CHARLENE: No Authorizing Provider: AARON SOLORZANO MD * Telephone Encounter - Vernell Hernandez - 02/15/2022 12:26 PM EDT Prescription pended if warranted. * Telephone Encounter - Aimee Cha [facility] [place] 02/15/2022 11:04 AM EDT Patient is requesting a refill on Tramadol 50 mg one tab every six hours as needed. This is not on his current med list, please call in RX to [facility] in [place] (already loaded in his chart) Please advise patient if you have any questions at [phone] NOTE: patient had back stimulator put in 4 months ago and is still having pain. documented in this encounterCleveland Clinic Med[facility] Hospital06-07-2022 Miscellaneous Notes* Telephone Encounter - Vernell Hernandez - 02/02/2022 4:59 PM EDT Refill request from [facility]. Order pended. documented in this encounterCleveland Clinic Med[facility] Hospital05-29-2022 Miscellaneous Notes* Telephone Encounter - Genesis Dey LPN - 01/24/2022 9:56 AM EDT Patient calling with medication/refill: Patient/caregiver [facility] [phone]., Do you have enough medication to last until the office reopens? Yes. and Have you contacted your pharmacy to ask for enough medication to get by until the officereopens? No. request. Patient denies any new or worsening sx.yes Allergies reviewed yes. insulin detemir U-100 (LEVEMIR U-100 INSULIN) 100 unit/mL injection 10 mL 5 01/21/2021 Sig: Inject 14 Units subcutaneously daily at bedtime. Paged eight section blower provider Benjamin Gomez DO who approved refill. Allergies reviewed: Yes ALLERGIES Allergen Reactions Entex Pse [Pseudoep* Intolerance Patient states he does not have any allergies The following medications were verbally ordered by and read back to Dr. Ray on 01/24/2022 at 10:01 AM by Genesis Dey LPN. No medications selected for refill. The prescription(s) was sent by escript to [facility]; by Genesis Dey LPN. Patient/Family notified: Yes Genesis Dey LPN documented in this encounterCleveland Clinic Medina Hospital05-16-2022 Miscellaneous Notes* Telephone Encounter - Annalise Woodard LPN - 01/11/2022 12:36 PM EDT Pharmacy verified in Epic Patient has been identified by name and date of : Yes Patient aware RX will be sent to pharmacy. No need to notify patient. Patient phones for refill(s): Pending Prescriptions Disp Refills CELECOXIB 200 MG CAPSULE 60 capsule 5 Sig: Take 1 capsule by mouth twice daily. Take with food. CHARLENE: No METFORMIN 1,000 MG TABLET 60 tablet 11 Sig: Take 1 tablet by mouth twice daily with meals. CHARLENE: No Date of last office visit : 09/08/2021 Date of next office visit : Visit date not found Last 2 Encounter Wt Readings: Date: Wt: 10/26/2021 100.7 kg (222 lb) 09/08/2021 101.4 kg (223 lb 8 oz) Not applicable Please advise. Annalise Woodard LPN * Telephone Encounter - Vidhya Cano - 01/11/2022 12:13 PM EDT Patient has been identified by name and date of : Yes Pending Prescriptions Disp Refills CELECOXIB 200 MG CAPSULE 60 capsule 5 Sig: Take 1 capsule by mouth twice daily. Take with food. CHARLENE: No METFORMIN 1,000 MG TABLET 60 tablet 11 Sig: Take 1 tablet by mouth twice daily with meals. CHARLENE: No RX INSTRUCTIONS: Patient is out of medication - please send today. Patient aware RX will be sent to pharmacy. No need to notify patient. Vidyha Juárez Pss documented in this encounterCleveland Clinic Med[facility] Hospital04-06-2022 Miscellaneous Notes* Telephone Encounter - Annalise Woodard LPN - 12/02/2021 1:33 PM EDT Orders faxed. Confirmation received. * Telephone Encounter - Sonal Razo MA - 12/02/2021 9:55 AM EDT Received RX and certificate of medical necessity from [facility]. Placed in provider's inbox for review, signature. Route to [place] for faxing back to [facility] at [phone] documented in this encounterCleveland Clinic Med[facility] Hospital03-29-2022 Miscellaneous Notes* Telephone Encounter - Annalise Woodard LPN - 11/24/2021 2:24 PM EDT Received 11/24/2021 from [facility]. Placed in provider's inbox for review. Route to [place] for scanning Office visit 11/23/2021 Jinny MIRANDA documented in this encounterCleveland Clinic Medina Hospital02-25-2022 Hospital Discharge instructions Patient Education 10/23/2021 10:15:50 Laminectomy Laminectomy Laminectomy is a surgery to remove: Small pieces of bone in the spine (lamina). Tough, cord-like tissues that connect bones to other bones (ligaments) underneath the lamina. Theseligaments connect the bones in the spine (vertebrae). Parts of joints in the spine (facet joints) that have grown too large. The goals of this surgery are: To reduce pressure on nerves and the spinal cord. To reduce pain, numbness, and discomfort. You may need this procedure if you have narrowing of the spinal canal (spinal stenosis) or if you have a spinal tumor, spinal injury, or Paget disease of bone. Tell a health care provider about: Any allergies you have. All medicines you are taking, including vitamins, herbs, eye drops, creams, and ksxm-alh-rvdkral medicines. Any problems you or family members have had with anesthetic medicines. Any blood disorders you have. Any surgeries you have had. Any medical conditions you have, including a cold or any infections. Whether you are or may be . What are the risks? Generally, this is a safe procedure. However, problems may occur, including: Infection. Bleeding. Allergic reactions to medicines or dyes. Damage to other structures or organs, such as nerves. Nerve damage can cause pain, weakness, or numbness. Leaking of spinal fluid. A blood clot in a leg. The clot can move to the lungs, which can be very serious. Inability to control when you urinate (urinary incontinence) or when you have bowel movements (fecal incontinence). This is rare. What happens before the procedure? Staying hydrated Follow instructions from your health care provider about hydration, which may include: Up to 2 hours before the procedure you may continue to drink clear liquids, such as water, clear fruit juice, black coffee, and plain tea. Eating and drinking restrictions Follow instructions from your health care provider about eating and drinking, which may include: 24 hours before the procedure stop drinking alcohol. 8 hours before the procedure stop eating heavy meals or foods such as meat, fried foods, or fatty foods. 6 hours before the procedure stop eating light meals or foods, such as toast or cereal. 6 hours before the procedure stop drinking milk or drinks that contain milk. 2 hours before the procedure stop drinking clear liquids. Medicines Ask your health care provider about: ?Changing or stopping your regular medicines. This is especially important if you are taking diabetes medicines or blood thinners. If your health care provider asks you to keep taking some medicines,take them with a sip of water. ?Taking medicines such as aspirin and ibuprofen. These medicines can thin your blood. Do not take these medicines before your procedure if your health care provider instructs you not to. You may be given antibiotic medicine to help prevent infection. General instructions Do not use any products that contain nicotine or tobacco, such as cigarettes and e-cigarettes, for at least 2 weeks before the procedure. If you need help quitting, ask your health care provider. Ask your health care provider how your surgical site will be marked or identified. You may have tests done, such as blood tests or an electrocardiogram (ECG). If you will be going home right after the procedure, plan to have someone with you for 24 hours. Plan to have someone: ?Take you home from the hospital or clinic. ?Help you at home for the first week after the procedure. What happens during the procedure? To reduce your risk of infection, your health care team will wash or sanitize their hands. Small monitors will be placed on your body to check your heart rate, blood pressure, and oxygen level. An IV tube will be inserted into one of your veins. You will be given a medicine to make you fall asleep (general anesthetic). You may also be given a medicine to help you relax (sedative). A breathing tube will be placed into your lungs. Your back will be cleaned with a germ-killing solution. An incision will be made in your back. The incision may be 2 5 inches (5 13 cm) long, depending on how many vertebrae are being operated on. Muscles in your back will be moved away from the vertebrae and pulled to the side. Pieces of lamina will be removed. Ligaments and thickened facet joints will be removed. How much tissue and bone is removed depends on how much of the tissue is putting pressure on your nerves. Your nerves will be identified and evaluated to check for excessive tightness. Your back muscles will be moved back into their normal position. The area under your skin will be closed with small, dissolvable stitches (sutures). Your skin will be closed with small, absorbable sutures or haseeb. A bandage (dressing) will be placed over your incision. The procedure may vary among health care providers and hospitals. What happens after the procedure? Your blood pressure, heart rate, breathing rate, and blood oxygen level will be monitored until themedicines you were given have worn off. You may continue receive medicines and fluids through an IV tube. You will have some back pain. You will be given pain medicine as needed. It is important to be up and moving as soon as possible after this procedure. Physical therapists will help you start walking. To prevent blood clots in your legs: ?You may have to wear compression stockings. These stockings also reduce swelling in your legs. ?You may need to take medicines. You may need to do breathing exercises to help prevent lung infection. Do not drive for 24 hours if you received a sedative. Summary Laminectomy is a procedure that is done to reduce pressure on nerves and the spinal cord and to reduce pain, numbness, and discomfort. If you will be going home right after the procedure, plan to have someone with you for 24 hours. You will have some back pain. You will be given pain medicine as needed. It is important to be up and moving as soon as possible after this procedure. Physical therapists will help you start walking. This information is not intended to replace advice given to you by your health care provider. Make sure you discuss any questions you have with your health care provider. Document Released: 08/03/2010 Document Revised: 07/28/2018 Document Reviewed: 01/30/2017 [employer] Patient Education 2020 [employer]. Follow Up Care 10/09/2021 15:15:04 With:MIKE RAI DO, Orthopedic, Orthopedic Address: [address] [place] [address], [address] [facility] [place] [address] [phone] When:11/11/2021 09:30:00 Comments:Follow-up as scheduled [facility] 12-16-2008 History of Past illness Narrative* Problem Noted Date Resolved Date ABSCESS ANAL 08/13/2008 07/04/2009 Benign neoplasm of skin of trunk, except scrotum 10/03/2006 07/04/2009 HYPERLIPIDEMIA NEC/NOS 6 documented as of this encounter (statuses as of 11/24/2021) [facility] of Past illness Narrative* Problem Noted Date Resolved Date ABSCESS ANAL 08/13/2008 07/04/2009 Benign neoplasm of skin of trunk, except scrotum 10/03/2006 07/04/2009 HYPERLIPIDEMIA NEC/NOS 6 documented as of this encounter (statuses as of 12/02/2021) [facility] of Past illness Narrative* Problem Noted Date Resolved Date ABSCESS ANAL 08/13/2008 07/04/2009 Benign neoplasm of skin of trunk, except scrotum 10/03/2006 07/04/2009 HYPERLIPIDEMIA NEC/NOS 6 documented as of this encounter (statuses as of 01/11/2022) [facility] of Past illness Narrative* Problem Noted Date Resolved Date ABSCESS ANAL 08/13/2008 07/04/2009 Benign neoplasm of skin of trunk, except scrotum 10/03/2006 07/04/2009 HYPERLIPIDEMIA NEC/NOS 6 documented as of this encounter (statuses as of 01/24/2022) [facility] of Past illness Narrative* Problem Noted Date Resolved Date ABSCESS ANAL 08/13/2008 07/04/2009 Benign neoplasm of skin of trunk, except scrotum 10/03/2006 07/04/2009 HYPERLIPIDEMIA NEC/NOS 6 documented as of this encounter (statuses as of 02/02/2022) [facility] of Past illness Narrative* Problem Noted Date Resolved Date ABSCESS ANAL 08/13/2008 07/04/2009 Benign neoplasm of skin of trunk, except scrotum 10/03/2006 07/04/2009 HYPERLIPIDEMIA NEC/NOS 6 documented as of this encounter (statuses as of 02/16/2022) [address]16-2008 History of Past illness Narrative* Problem Noted Date Resolved Date ABSCESS ANAL 08/13/2008 07/04/2009 Benign neoplasm of skin of trunk, except scrotum 10/03/2006 07/04/2009 HYPERLIPIDEMIA NEC/NOS 6 documented as of this encounter (statuses as of 03/16/2022) [facility] of Past illness Narrative* Problem Noted Date Resolved Date ABSCESS ANAL 08/13/2008 07/04/2009 Benign neoplasm of skin of trunk, except scrotum 10/03/2006 07/04/2009 HYPERLIPIDEMIA NEC/NOS 6 documented as of this encounter (statuses as of 03/24/2022) [facility]12-16[facility]2008 History of Past illness Narrative* Problem Noted Date Resolved Date ABSCESS ANAL 08/13/2008 07/04/2009 Benign neoplasm of skin of trunk, except scrotum 10/03/2006 07/04/2009 HYPERLIPIDEMIA NEC/NOS 6 documented as of this encounter (statuses as of 03/29/2022) [facility]16[facility]2008 History of Past illness Narrative* Problem Noted Date Resolved Date ABSCESS ANAL 08/13/2008 07/04/2009 Benign neoplasm of skin of trunk, except scrotum 10/03/2006 07/04/2009 HYPERLIPIDEMIA NEC/NOS 6 documented as of this encounter (statuses as of 05/17/2022) [place] [id number] History of Past illness Narrative* Problem Noted Date Resolved Date ABSCESS ANAL 08/13/2008 07/04/2009 Benign neoplasm of skin of trunk, except scrotum 10/03/2006 07/04/2009 HYPERLIPIDEMIA NEC/NOS 6 documented as of this encounter (statuses as of 06/01/2022) [facility]2008 History of Past illness Narrative* Problem Noted Date Resolved Date ABSCESS ANAL 08/13/2008 07/04/2009 Benign neoplasm of skin of trunk, except scrotum 10/03/2006 07/04/2009 HYPERLIPIDEMIA NEC/NOS 6 documented as of this encounter (statuses as of 06/04/2022) [address]16-2008 History of Past illness Narrative* Problem Noted Date Resolved Date ABSCESS ANAL 08/13/2008 07/04/2009 Benign neoplasm of skin of trunk, except scrotum 10/03/2006 07/04/2009 HYPERLIPIDEMIA NEC/NOS 201 6 documented as of this encounter (statuses as of 07/26/2022) [address]16-2008 History of Past illness Narrative* Problem Noted Date Resolved Date ABSCESS ANAL 08/13/2008 07/04/2009 Benign neoplasm of skin of trunk, except scrotum 10/03/2006 07/04/2009 HYPERLIPIDEMIA NEC/NOS 6 documented as of this encounter (statuses as of 07/27/2022) [address]16-2008 History of Past illness Narrative* Problem Noted Date Resolved Date ABSCESS ANAL 08/13/2008 07/04/2009 Benign neoplasm of skin of trunk, except scrotum 10/03/2006 07/04/2009 HYPERLIPIDEMIA NEC/NOS 201 6 documented as of this encounter (statuses as of 08/13/2022) [address]16-2008 History of Past illness Narrative* Problem Noted Date Resolved Date ABSCESS ANAL 08/13/2008 07/04/2009 Benign neoplasm of skin of trunk, except scrotum 10/03/2006 07/04/2009 HYPERLIPIDEMIA NEC/NOS 6 documented as of this encounter (statuses as of 08/16/2022) [address]16-2008 History of Past illness Narrative* Problem Noted Date Resolved Date ABSCESS ANAL 08/13/2008 07/04/2009 Benign neoplasm of skin of trunk, except scrotum 10/03/2006 07/04/2009 HYPERLIPIDEMIA NEC/NOS 6 documented as of this encounter (statuses as of 08/20/2022) [address]16-2008 History of Past illness Narrative* Problem Noted Date Resolved Date ABSCESS ANAL 08/13/2008 07/04/2009 Benign neoplasm of skin of trunk, except scrotum 10/03/2006 07/04/2009 HYPERLIPIDEMIA NEC/NOS 201 6 documented as of this encounter (statuses as of 08/31/2022) [place] [id number] History of Past illness Narrative* Problem Noted Date Resolved Date ABSCESS ANAL 08/13/2008 07/04/2009 Benign neoplasm of skin of trunk, except scrotum 10/03/2006 07/04/2009 HYPERLIPIDEMIA NEC/NOS 201 6 documented as of this encounter (statuses as of 09/13/2022) [address]16-2008 History of Past illness Narrative* Problem Noted Date Resolved Date ABSCESS ANAL 08/13/2008 07/04/2009 Benign neoplasm of skin of trunk, except scrotum 10/03/2006 07/04/2009 HYPERLIPIDEMIA NEC/NOS 6 documented as of this encounter (statuses as of 10/05/2022) [address]16-2008 History of Past illness Narrative* Problem Noted Date Resolved Date ABSCESS ANAL 08/13/2008 07/04/2009 Benign neoplasm of skin of trunk, except scrotum 10/03/2006 07/04/2009 HYPERLIPIDEMIA NEC/NOS 6 documented as of this encounter (statuses as of 10/26/2022) [address]16-2008 History of Past illness Narrative* Problem Noted Date Resolved Date ABSCESS ANAL 08/13/2008 07/04/2009 Benign neoplasm of skin of trunk, except scrotum 10/03/2006 07/04/2009 HYPERLIPIDEMIA NEC/NOS 6 documented as of this encounter (statuses as of 11/12/2022) [facility]2008 History of Past illness Narrative* Problem Noted Date Resolved Date ABSCESS ANAL 08/13/2008 07/04/2009 Benign neoplasm of skin of trunk, except scrotum 10/03/2006 07/04/2009 HYPERLIPIDEMIA NEC/NOS 6 documented as of this encounter (statuses as of 12/01/2022) [place] [id number] History of Past illness Narrative* Problem Noted Date Resolved Date ABSCESS ANAL 08/13/2008 07/04/2009 Benign neoplasm of skin of trunk, except scrotum 10/03/2006 07/04/2009 HYPERLIPIDEMIA NEC/NOS 201 6 documented as of this encounter (statuses as of 01/07/2023) [address]16-2008 History of Past illness Narrative* Problem Noted Date Resolved Date ABSCESS ANAL 08/13/2008 07/04/2009 Benign neoplasm of skin of trunk, except scrotum 10/03/2006 07/04/2009 HYPERLIPIDEMIA NEC/NOS 6 documented as of this encounter (statuses as of 02/11/2023) [address]16-2008 History of Past illness Narrative* Problem Noted Date Resolved Date ABSCESS ANAL 08/13/2008 07/04/2009 Benign neoplasm of skin of trunk, except scrotum 10/03/2006 07/04/2009 HYPERLIPIDEMIA NEC/NOS 6 documented as of this encounter (statuses as of 02/17/2023) [address]16-2008 History of Past illness Narrative* Problem Noted Date Resolved Date ABSCESS ANAL 08/13/2008 07/04/2009 Benign neoplasm of skin of trunk, except scrotum 10/03/2006 07/04/2009 HYPERLIPIDEMIA NEC/NOS 6 documented as of this encounter (statuses as of 02/19/2023) [address]16-2008 History of Past illness Narrative* Problem Noted Date Resolved Date ABSCESS ANAL 08/13/2008 07/04/2009 Benign neoplasm of skin of trunk, except scrotum 10/03/2006 07/04/2009 HYPERLIPIDEMIA NEC/NOS 6 documented as of this encounter (statuses as of 03/03/2023) [address]16-2008 History of Past illness Narrative* Problem Noted Date Diagnosed Date Resolved Date ABSCESS ANAL 08/13/2008 07/04/2009 Benign neoplasm of skin of t runk, except scrotum 10/03/2006 07/04/2009 HYPERLIPIDEMIA NEC/NOS 10/28 documented as of this encounter (statuses as of 04/15/2023) [address]16-2008 History of Past illness Narrative* Problem Noted Date Diagnosed Date Resolved Date ABSCESS ANAL 08/13/2008 07/04/2009 Benign neoplasm of skin of t runk, except scrotum 10/03/2006 07/04/2009 HYPERLIPIDEMIA NEC/NOS 10/28 documented as of this encounter (statuses as of 04/19/2023) [address]16-2008 History of Past illness Narrative* Problem Noted Date Diagnosed Date Resolved Date ABSCESS ANAL 08/13/2008 07/04/2009 Benign neoplasm of skin of t runk, except scrotum 10/03/2006 07/04/2009 HYPERLIPIDEMIA NEC/NOS 10/28 documented as of this encounter (statuses as of 04/21/2023) [address]16-2008 History of Past illness Narrative* Problem Noted Date Diagnosed Date Resolved Date ABSCESS ANAL 08/13/2008 07/04/2009 Benign neoplasm of skin of t runk, except scrotum 10/03/2006 07/04/2009 HYPERLIPIDEMIA NEC/NOS 10/28 documented as of this encounter (statuses as of 05/13/2023) [address]16-2008 History of Past illness Narrative* Problem Noted Date Diagnosed Date Resolved Date ABSCESS ANAL 08/13/2008 07/04/2009 Benign neoplasm of skin of t runk, except scrotum 10/03/2006 07/04/2009 HYPERLIPIDEMIA NEC/NOS 10/28 documented as of this encounter (statuses as of 05/20/2023) [address]16-2008 History of Past illness Narrative* Problem Noted Date Diagnosed Date Resolved Date ABSCESS ANAL 08/13/2008 07/04/2009 Benign neoplasm of skin of t runk, except scrotum 10/03/2006 07/04/2009 HYPERLIPIDEMIA NEC/NOS 10/28 documented as of this encounter (statuses as of 06/10/2023) [address]16-2008 History of Past illness Narrative* Problem Noted Date Diagnosed Date Resolved Date ABSCESS ANAL 08/13/2008 07/04/2009 Benign neoplasm of skin of t runk, except scrotum 10/03/2006 07/04/2009 HYPERLIPIDEMIA NEC/NOS 10/28 documented as of this encounter (statuses as of 06/16/2023) [place] [address]16-2008 History of Past illness Narrative* Problem Noted Date Diagnosed Date Resolved Date ABSCESS ANAL 08/13/2008 07/04/2009 Benign neoplasm of skin of t runk, except scrotum 10/03/2006 07/04/2009 HYPERLIPIDEMIA NEC/NOS 10/28 documented as of this encounter (statuses as of 06/17/2023) [place] [address]16-2008 History of Past illness Narrative* Problem Noted Date Diagnosed Date Resolved Date ABSCESS ANAL 08/13/2008 07/04/2009 Benign neoplasm of skin of t runk, except scrotum 10/03/2006 07/04/2009 HYPERLIPIDEMIA NEC/NOS 10/28 documented as of this encounter (statuses as of 07/14/2023) [address]16-2008 History of Past illness Narrative* Problem Noted Date Diagnosed Date Resolved Date ABSCESS ANAL 08/13/2008 07/04/2009 Benign neoplasm of skin of t runk, except scrotum 10/03/2006 07/04/2009 HYPERLIPIDEMIA NEC/NOS 10/28 documented as of this encounter (statuses as of 07/14/2023) [address]16-2008 History of Past illness Narrative* Problem Noted Date Diagnosed Date Resolved Date ABSCESS ANAL 08/13/2008 07/04/2009 Benign neoplasm of skin of t runk, except scrotum 10/03/2006 07/04/2009 HYPERLIPIDEMIA NEC/NOS 10/28 documented as of this encounter (statuses as of 08/12/2023) [address]16-2008 History of Past illness Narrative* Problem Noted Date Diagnosed Date Resolved Date ABSCESS ANAL 08/13/2008 07/04/2009 Benign neoplasm of skin of t runk, except scrotum 10/03/2006 07/04/2009 HYPERLIPIDEMIA NEC/NOS 10/28 documented as of this encounter (statuses as of 10/04/2023) [address]16-2008 History of Past illness Narrative* Problem Noted Date Diagnosed Date Resolved Date ABSCESS ANAL 08/13/2008 07/04/2009 Benign neoplasm of skin of t runk, except scrotum 10/03/2006 07/04/2009 HYPERLIPIDEMIA NEC/NOS 10/28 documented as of this encounter (statuses as of 10/13/2023) [address]16-2008 History of Past illness Narrative* Problem Noted Date Diagnosed Date Resolved Date ABSCESS ANAL 08/13/2008 07/04/2009 Benign neoplasm of skin of t runk, except scrotum 10/03/2006 07/04/2009 HYPERLIPIDEMIA NEC/NOS 10/28 documented as of this encounter (statuses as of 10/17/2023) [address]16-2008 History of Past illness Narrative* Problem Noted Date Diagnosed Date Resolved Date ABSCESS ANAL 08/13/2008 07/04/2009 Benign neoplasm of skin of t runk, except scrotum 10/03/2006 07/04/2009 HYPERLIPIDEMIA NEC/NOS 10/28 documented as of this encounter (statuses as of 10/18/2023) [address]2008 History of Past illness Narrative* Problem Noted Date Diagnosed Date Resolved Date ABSCESS ANAL 08/13/2008 07/04/2009 Benign neoplasm of skin of t runk, except scrotum 10/03/2006 07/04/2009 HYPERLIPIDEMIA NEC/NOS 10/28 documented as of this encounter (statuses as of 10/19/2023) [address]2008 History of Past illness Narrative* Problem Noted Date Diagnosed Date Resolved Date ABSCESS ANAL 08/13/2008 07/04/2009 Benign neoplasm of skin of t runk, except scrotum 10/03/2006 07/04/2009 HYPERLIPIDEMIA NEC/NOS 10/28 documented as of this encounter (statuses as of 10/26/2023) [address]16-2008 History of Past illness Narrative* Problem Noted Date Diagnosed Date Resolved Date ABSCESS ANAL 08/13/2008 07/04/2009 Benign neoplasm of skin of t runk, except scrotum 10/03/2006 07/04/2009 HYPERLIPIDEMIA NEC/NOS 10/28 documented as of this encounter (statuses as of 11/29/2023) [address]16-2008 History of Past illness Narrative* Problem Noted Date Diagnosed Date Resolved Date ABSCESS ANAL 08/13/2008 07/04/2009 Benign neoplasm of skin of t runk, except scrotum 10/03/2006 07/04/2009 HYPERLIPIDEMIA NEC/NOS 10/28 documented as of this encounter (statuses as of 11/30/2023) [place] [address]2008 History of Past illness Narrative* Problem Noted Date Diagnosed Date Resolved Date ABSCESS ANAL 08/13/2008 07/04/2009 Benign neoplasm of skin of t runk, except scrotum 10/03/2006 07/04/2009 HYPERLIPIDEMIA NEC/NOS 10/28 documented as of this encounter (statuses as of 12/13/2023) [facility] Evaluation note* Diagnosis Lumbar degenerative disc disease Degeneration of lumbar or lumbosacral intervertebral disc Controlled type 2 diabetes mellitus with diabetic neuropathy, with long-term current use of insulin (HCC) [facility] Diagnosis Controlled type 2 diabetes mellitus with diabetic neuropathy, with long-term current use of insulin (HCC) [facility] Diagnosis Chronic idiopathic urticaria Idiopathic urticaria [facility] Diagnosis Lumbar degenerative disc disease Degeneration of lumbar or lumbosacral intervertebral disc [facility] Diagnosis Onset Date Resolution Status HLD (hyperlipidemia) acute Postoperative atrial fibrillation acute Atherosclerotic heart diseas e of [place] coronary artery without angina pectoris chronic Benign essential hypertension chronic History of aortic valve repl acement with bioprosthetic valve April, [facility] Work Phone: Evaluation note* Diagnosis Controlled type 2 diabetes mellitus with diabetic neuropathy, with long-term current use of insulin (HCC) [facility] Diagnosis Screening for colon cancer- Primary Special screening for malignant neoplasms, colon [facility]* Diagnosis Controlled type 2 diabetes mellitus with diabetic neuropathy, with long-term current use of insulin (HCC) [facility] Diagnosis Lumbar degenerative disc disease Degeneration of lumbar or lumbosacral intervertebral disc [facility] Diagnosis Chronic idiopathic urticaria Idiopathic urticaria [facility] Controlled type 2 diabetes mellitus with diabetic neuropathy, with long-term current use of insulin (HCC) [facility] Diagnosis Encounter for immunization- Primary Need for other specified prophylactic vaccination against single bacterial disease Controlled type 2 diabetes mellitus with diabetic neuropathy, with long-term current use of insulin (HCC) Mixed hyperlipidemia Depression screening Screening for depression Advanced care planning/counseling discussion Other specified counseling [facility] Diagnosis Sodium blood decreased- Primary Hyposmolality and/or hyponatremia [facility] Diagnosis Lumbar degenerative disc disease Degeneration of lumbar or lumbosacral intervertebral disc [facility] Diagnosis Lumbar degenerative disc disease Degeneration of lumbar or lumbosacral intervertebral disc [facility] noteNo assessment information availableWMiddletown Hospital Work Phone: Evaluation note* Diagnosis Controlled type 2 diabetes mellitus with diabetic neuropathy, with long-term current use of insulin (HCC) [facility]* Diagnosis Varicose veins of leg with pain, right- Primary [facility]* Diagnosis Chronic idiopathic urticaria Idiopathic urticaria [facility] Diagnosis Lumbar degenerative disc disease Degeneration of lumbar or lumbosacral intervertebral disc [facility] Diagnosis Controlled type 2 diabetes mellitus with diabetic neuropathy, with long-term current use of insulin (HCC) [facility] Diagnosis Lumbar degenerative disc disease- Primary Degeneration of lumbar or lumbosacral intervertebral disc Encounter for immunization Need for other specified prophylactic vaccination against single bacterial disease Controlled type 2 diabetes mellitus with diabetic neuropathy, with long-term current use of insulin (HCC) Mixed hyperlipidemia Varicose veins of leg with pain, right [facility]* Diagnosis Essential hypertension, benign [facility] Diagnosis Lumbar degenerative disc disease Degeneration of lumbar or lumbosacral intervertebral disc [facility] Diagnosis Chronic midline low back pain without sciatica- Primary Lumbar degenerative disc disease Degeneration of lumbar or lumbosacral intervertebral disc Controlled type 2 diabetes mellitus with diabetic neuropathy, with long-term current use of insulin (HCC) Longstanding persistent atrial fibrillation (HCC) Peripheral arterial disease (HCC) Peripheral vascular disease, unspecified Thrombocytopenia (HCC) Thrombocytopenia, unspecified Chronic idiopathic urticaria Idiopathic urticaria Essential hypertension, benign Spinal cord stimulator status Other postprocedural status History of atrial fibrillation Personal history of other diseases of circulatory system Lumbosacral neuritis Thoracic or lumbosacral neuritis or radiculitis, unspecified Mild cognitive disorder Unspecified persistent mental disorders due to conditions classified elsewhere [facility] Diagnosis Lumbar degenerative disc disease Degeneration of lumbar or lumbosacral intervertebral disc [facility] Diagnosis LIAN (obstructive sleep apnea)- Primary Obstructive sleep apnea (adult) (pediatric) [facility]* Diagnosis Lumbar degenerative disc disease- Primary Degeneration of lumbar or lumbosacral intervertebral disc [facility] Diagnosis Lumbar spondylosis- Primary Lumbosacral spondylosis without myelopathy [facility] Diagnosis Lumbar degenerative disc disease Degeneration of lumbar or lumbosacral intervertebral disc Lumbar spondylosis Lumbosacral spondylosis without myelopathy [facility] Diagnosis Rash- Primary Rash and other nonspecific skin eruption [facility] Diagnosis Chronic idiopathic urticaria Idiopathic urticaria [facility] Diagnosis Mixed hyperlipidemia Essential hypertension, benign [facility]* Diagnosis Lumbar spondylosis Lumbosacral spondylosis without myelopathy Controlled type 2 diabetes mellitus with diabetic neuropathy, with long-term current use of insulin ([facility]) [facility] Diagnosis Lumbar spondylosis Lumbosacral spondylosis without myelopathy [facility]* Diagnosis Mixed hyperlipidemia- Primary Controlled type 2 diabetes mellitus with diabetic neuropathy, with long-term current use of insulin (HCC) Essential hypertension, benign [facility] Diagnosis Controlled type 2 diabetes mellitus with diabetic neuropathy, with long-term current use of insulin (HCC)- Primary Essential hypertension, benign Mixed hyperlipidemia [facility] Diagnosis Essential hypertension, benign [facility] Diagnosis Lumbar degenerative disc disease Degeneration of lumbar or lumbosacral intervertebral disc [facility] Diagnosis LIAN (obstructive sleep apnea)- Primary Obstructive sleep apnea (adult) (pediatric) Controlled type 2 diabetes mellitus with diabetic neuropathy, with long-term current use of insulin (HCC) Balance problem Other symptoms involving nervous and musculoskeletal systems [facility] Diagnosis Lumbosacral neuritis- Primary Thoracic or lumbosacral neuritis or radiculitis, unspecified Lumbar spondylosis Lumbosacral spondylosis without myelopathy [facility] Diagnosis Swelling of hand joint, left- Primary Swelling of hand joint, left [facility] Diagnosis Swelling of hand joint, left [facility] Diagnosis Lumbosacral neuritis Thoracic or lumbosacral neuritis or radiculitis, unspecified Lumbar spondylosis Lumbosacral spondylosis without myelopathy [facility] Diagnosis Lumbar spondylosis- Primary Lumbosacral spondylosis without myelopathy Controlled type 2 diabetes mellitus with diabetic neuropathy, with long-term current use of insulin (HCC) Degeneration of intervertebral disc of lumbar region with discogenic back pain and lower extremity pain Sensation of foreign body in finger Disturbance of skin sensation Mixed hyperlipidemia Anemia of chronic disease Anemia of other chronic disease [facility]* Diagnosis Lumbosacral neuritis Thoracic or lumbosacral neuritis or radiculitis, unspecified Lumbar spondylosis Lumbosacral spondylosis without myelopathy [facility]* Diagnosis Contact dermatitis due to plant- Primary Contact dermatitis and other eczema due to plants (except food) [facility] Diagnosis Lumbosacral neuritis Thoracic or lumbosacral neuritis or radiculitis, unspecified Lumbar spondylosis Lumbosacral spondylosis without myelopathy [facility] Narr[facility] No data available for this section [facility] Hospital Discharge instructions No data available for this section [facility] Reason for referral (narrative)No reason for referral information availableKindred [facility] Work Phone: Reason for visit Narrative* Diagnostic Procedure Only (Urgent) - Closed Specialty Diagnoses / Procedures Referred By Contac t Referred To Contact [facility] Diagnoses Swelling of hand joint, left Procedures XR HAND GENERAL 3V PA/LAT/OBL LEFT RADEX HAND MINIMUM 3 VIEWS Lisa Quintanilla MD [address] [place] [address] Phone: tel: fax: [place] [id number] Referral ID Status Reason Start Date Expiration Date V isits Requested Visits Authorized [id number] Closed Auto-Generate d Referral 12/05/2024 01/04/2026 1 1 [facility] Summary Purpose Family History Relationship Condition Age at Onset Recorded Date/T alana father Myocardial infarction 73 mother Myocardial infarction 68 Relationship Condition Age at Onset Recorded Date/T alana Not Specified Diabetes mellitus Unknown High blood cholesterol Unknown Arthritis Unknown Hypertension Unknown Asthma Unknown father Myocardial infarction 73 mother Myocardial infarction 68 Advance Directives Documents on File Type Date Recorded 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 ACP-Advance Directive ACP-Power of Product Tester [employer] Latest Code Status on File Code Status Date Activated Date Inactivated Comments Full Code 05/08/2020 12:13 PM Latest Code Status on File Code Status Date Activated Date Inactivated Comments Full Code 05/08/2020 12:13 PM 05/14/2020 3:29 PM Latest Code Status on File Code Status Date Activated Date Inactivated Comments Full Code 05/30/2020 7:56 AM Full Code 05/08/2020 12:13 PM 05/14/2020 3:29 PM Latest Code Status on File Code Status Date Activated Date Inactivated Comments Full Code 05/30/2020 7:56 AM 06/02/2020 6:16 PM Advance Directive Response Recorded Date/ Time Advance Directives No March 18 8:28am Living Will No March 16, 2022 9:54am Power of Product Tester [employer] No March 16 9:54am Advance Directive Response Recorded Date/ Time Advance Directives No March 18 8:28am Living Will No February 05, 2023 2:48pm Power of Product Tester [employer] No February 05 2:48pm Advance Directive Response Recorded Date/ Time Advance Directives No April 28, 2023 10:01am Advance Directive Response Recorded Date/ Time Do you have a Healthcare Power of Product Tester [employer]? Yes April 15, 2025 3:14pm Advance Directives No April 28, 2023 10:01am Hospital Course Note Discharge Summary: Cardiotho racic Surgery Ascencion Weir :1950 AGE: 69 y.o. ADMIT DATE: 05/30/2020 DISCHARGE DATE: 06/02/2020 DISCHARGING SURGEON: Jean Claude Killian MD, Office Number: [phone] PRIMARY CARE PHYSICIAN: Aaron Solorzano, VISIT STATUS: Admission CODE STATUS: Full Code SURGERY: S/P AVR, CABG x1 on 05/08/20 by readmit?on?05/30/20 as transfer from [place] ED after presenting there with dyspnea, chest pain, fever with CT chest revealing questionable abscess below the sternum appears consistent with scar tissue formation - echo 05/30 revealed mild-mod pericardial effusion-no hemodynamic compromise - EF WNL - plan for DC home today ESR, CRP 321 ESR 30 - he was taken off of Coumadin due to possible needing I&D - now that that risk is likely resolved will plan to restart coumadin managed by ANTHONY. Labs are stable he has a follow up with Migue Gregorio 06-19-2020 I will touch th him next Tuesday. Case discussed with Dr. Louis from (more content not included)... Discharge Instructions * Discharge Instr - Lab* Nahomy Bowers LPN - 05/11/2020 9:58 AM EDT Your physician has ordered skilled home care services for you. Your home care will be provided by: [facility] [phone] SCHEDULING [phone] * Additional Instructions* Velasquez Savage APRN - CLIENT SERVICES MANAGER - 05/14/2020 [facility]: Cardiothoracic Surgery [address] Critical access hospital #[phone] Notify us if the following occur - Increased tenderness, redness, or swelling of your incisions. - Any drainage from the chest incision (clear or pink drainage from the leg incision or chest tube site is common). - Angina symptoms like those you had before surgery - Sharp pain in chest, neck or shoulder that is worse when taking a deep breath - Persistent fever greater than 100 degrees F or 38 degrees C - Flu-like symptoms-chills, aches, fever, increased fatigue - Heart rate faster than 150 beats/minute with shortness of breath or new irregular heart rate. - Any unusual bleeding - Shortness of breath not relieved by rest - Weight gain of three pounds in one day or five pounds over one week Activity Instructions - Sternal Precautions for 6 weeks - Do not lift, push, or pull anything heavier than 10 pounds for 6 weeks (a gallon of milk weighs 8pounds). - Do not drive until you have been given permission by your surgeon/provider and until you are off narcotic/opioid pain medication - It is ok to sleep on your side if you prop pillows to support your back. Do not sleep on your stomach. - Walk at least 4 times a day, start with 5 minute intervals, increase minutes walked each day. Do not walk on a treadmill - Balance rest and activity during your recovery - Use the stairs, but go slowly, Use the handrail for balance but do not pull yourself up with yourarms. - Shower daily. Do not take your heart medication right before you shower. You could become lightheaded from your blood pressure and heart medication. Always have someone nearby to assist you. - Do not take a tub bath or use a hot tub until all incision are completely healed (no scab). - Put barbara hose on in AM and remove at bedtime. Elevate your feet above level of heart when you are sitting. - Cough and deep breathe and use incentive spirometer every hour (10x/hour while awake for two weeks. Other Instructions - Weigh yourself daily at the same time (after you urinate but before breakfast) - Keep a record of your daily weight, and bring to your first post op office visit - Take all medications as prescribed. Bring all your medication bottles to any follow up office visit Incision Care - Wash your sternal incision with anti-bacterial soap and warm water. Pat dry, and leave open to air. Do not use any lotions, or powders, or ointments. documented in this encounter* Discharge Instr - Lab* Ernestine Everett RN - 05/30/2020 7:51 AM EDT Your physician has ordered skilled home care services for you. Your home care will be provided by: [facility] [phone] * Additional Instructions* Velasquez Savage APRN - NATHANAEL - 06/02/2020 [facility]: Cardiothoracic Surgery [address] Critical access hospital #[phone] Notify us if the following occur - Increased tenderness, redness, or swelling of your incisions. - Any drainage from the chest incision (clear or pink drainage from the leg incision or chest tube site is common). - Angina symptoms like those you had before surgery - Sharp pain in chest, neck or shoulder that is worse when taking a deep breath - Persistent fever greater than 100 degrees F or 38 degrees C - Flu-like symptoms-chills, aches, fever, increased fatigue - Heart rate faster than 150 beats/minute with shortness of breath or new irregular heart rate. - Any unusual bleeding - Shortness of breath not relieved by rest - Weight gain of three pounds in one day or five pounds over one week Activity Instructions - Sternal Precautions for 6 weeks - Do not lift, push, or pull anything heavier than 10 pounds for 6 weeks (a gallon of milk weighs 8pounds). - Do not drive until you have been given permission by your surgeon/provider and until you are off narcotic/opioid pain medication - It is ok to sleep on your side if you prop pillows to support your back. Do not sleep on your stomach. - Walk at least 4 times a day, start with 5 minute intervals, increase minutes walked each day. Do not walk on a treadmill - Balance rest and activity during your recovery - Use the stairs, but go slowly, Use the handrail for balance but do not pull yourself up with yourarms. - Shower daily. Do not take your heart medication right before you shower. You could become lightheaded from your blood pressure and heart medication. Always have someone nearby to assist you. - Do not take a tub bath or use a hot tub until all incision are completely healed (no scab). - Put barbara hose on in AM and remove at bedtime. Elevate your feet above level of heart when you are sitting. - Cough and deep breathe and use incentive spirometer every hour (10x/hour while awake for two weeks. Other Instructions - Weigh yourself daily at the same time (after you urinate but before breakfast) - Keep a record of your daily weight, and bring to your first post op office visit - Take all medications as prescribed. Bring all your medication bottles to any follow up office visit Incision Care - Wash your sternal incision with anti-bacterial soap and warm water. Pat dry, and leave open to air. Do not use any lotions, or powders, or ointments. documented in this encounter* Instructions* Dulce James, RN - 05/01/2020 Do not eat after midnight. You may have clear liquids up to two hours prior to your surgery. Follow instructions on use of wipes, nasal ointment and mouth rinse as instructed. Special Instructions: NO AM INSULIN, HOLD METFORMIN FOR 48 HOURS PRIOR TO SURGERY LAST DOSE ON 05/05/20 NO MEDICATIONS ON DAY OF SURGERY If you have specific questions, please call your surgeon. Please bring your [facility] Surgical Information folder on the day of surgery. Please adrian the last dose taken (date and time ) on your Daily Medications List provided in your After Visit Summary. Please bring a photo ID and insurance information You will receive a reminder call the day before surgery with your Same Day Surgery arrival time. If you have specific questions, please call your surgeon. * Attachments The following attachments cannot be sent through Care Everywhere. * Coronary Artery Bypass Graft: Pre-op (Vincentian) * Aortic Valve Replacement: Pre-op (Vincentian) documented in this encounter History of Present Illness * Kena Tavera, ROTOGRAVURE PRESS OPERATOR - 05/14/2020 11:34 AM EDT Physical Therapy Facility/Department: [facility] Daily Treatment Note NAME: Ascencion Weir : 1950 Date of Service: 05/14/2020 Discharge Recommendations: Home with assist PRN, Home with Home health PT Assessment Body structures, Functions, Activity limitations: Decreased functional mobility ;Decreased ROM;Decreased strength;Decreased posture;Increased pain;Decreased endurance Assessment: continue to rec use of FWW for stability, good UE ROM and I.S. use. review of walk program needed. rec home with FWW use (owns) and homecare. Prognosis: Good REQUIRES PT FOLLOW UP: Yes Patient Diagnosis(es): There were no encounter diagnoses. has a past medical history of Arthritis, Benign prostatic hyperplasia, CAD (coronary artery disease), Chronic back pain, CPAP (continuous positive airway pressure) dependence, Diabetes mellitus (HCC), Hyperlipidemia, Hypertension, Nonrheumatic aortic (valve) stenosis, Obesity, and Sleep apnea. has a past surgical history that includes joint replacement; Total knee arthroplasty; and Hand surgery. Restrictions Restrictions/Precautions Restrictions/Precautions: Surgical Protocols Required Braces or Orthoses?: No Upper Extremity Weight Bearing Restrictions Other: sternal precautions Position Activity Restriction Sternal Precautions: No Pushing, No Pulling, 10# Lifting Restrictions Sternal Precautions: yes Other position/activity restrictions: frequent cues for sternal precautions Subjective General Chart Reviewed: Yes Family / Caregiver Present: No Subjective Subjective: mildly impulsive. misses his dog. seated in chair, assist to don shoes. states he is leaving today. agree to PT Pain Screening Patient Currently in Pain: Denies Vital Signs Patient Currently in Pain: Denies Orientation Orientation Overall Orientation Status: Within Functional Limits Cognition Cognition Overall Cognitive Status: WFL Objective Transfers Sit to Stand: Supervision Stand to sit: Supervision Ambulation Ambulation?: Yes More Ambulation?: Yes Ambulation 1 Surface: level tile Device: Rolling Walker Assistance: Supervision Quality of Gait: increased lateral sway, floppy feet, Gait Deviations: Decreased step length;Decreased step height Distance: 100' Ambulation 2 Surface - 2: level tile Device 2: No device Assistance 2: Stand by assistance Gait Deviations: Decreased step length;Decreased step height Distance: 85' Ambulation 3 Comments: review walk program Stairs/Curb Stairs?: Yes Stairs # Steps : (4) Stairs Height: 6 Rails: Right ascending Assistance: Stand by assistance Comment: reciprocal; cues for step to pattern Exercises Upper Extremity: self guided P&C with min cues on technique Other exercises Other exercises?: (I.S. 1250ml; frequent dry cough) Goals Short term goals Time Frame for Short term goals: 2 weeks Short term goal 1: Bed mobility min of 1, PROGRESSING Short term goal 2: Sit to stand supv, MET Short term goal 3: Amb 250' or 5 minutes RPE 14 or lower from endurance perspective, PROGRESSING Short term goal 4: Indep managing secretions and modified home walking program (will minimize distance), PROGRESSING Short term goal 5: Indep P&C ex, PROGRESSING Short term goal 6: 3 stairs, rail for balance, min of 1, MET Patient Goals Patient goals : get my hip fixed, so I can mow my lawn Plan Plan Times per week: 5-6 Plan weeks: 2 Current Treatment Recommendations: Strengthening, ROM, Balance Training, Functional Mobility Training, Stair training, Gait Training, Transfer Training, Endurance Training, Home Exercise Program Plan Comment: strengthening for LEs only Safety Devices Type of devices: All fall risk precautions in place, Call light within reach, Chair alarm in place,Left in chair Restraints Initially in place: No Therapy Time Individual Concurrent Group Co-treatment Time In 1105 Time Out 1125 Minutes 20 Timed Code Treatment Minutes: (GT) *N95, eye protection, worn by me during patient encounter* Kena Tavera PTA * Arely Mitchell, [facility] - 05/14/2020 8:04 AM EDT [facility] Anticoagulation Management Service ([facility]) Inpatient Warfarin Consult HPI: Ascencion Weir is a 69 y.o. male admitted on 05/08/2020 for S/P AVR. Past Medical History: Diagnosis Date Arthritis Benign prostatic hyperplasia CAD (coronary artery disease) Chronic back pain CPAP (continuous positive airway pressure) dependence Diabetes mellitus (HCC) Hyperlipidemia Hypertension Nonrheumatic aortic (valve) stenosis Obesity Sleep apnea Patient is newly referred to the [facility] clinic for warfarin management. Pt was referred by Dr Burkett. Pt is on warfarin for Heart Valve Replacement and has a goal INR 2.0 - 3.0 . Duration of therapy= 3 months. Reason for warfarin start instead of DOAC: valve replacement PCP: Aaron Solorzano S/sx of bleeding= none noted Interacting medications= ASA, Lovenox, amiodarone Labs: Recent Labs 05/12/20 0029 05/12/20 0547 05/13/20 0050 05/14/20 0032 HGB 7.3* 8.4* 8.6* 8.9* HCT 20.8* -- 23.9* 25.0* PLT 98* -- 128* 155 Recent Labs 05/14/20 0032 INR 1.4* Date INR Dose 05/14 1.4 5mg 05/13 1.3 2.5mg 05/12 1.3 2.5mg 05/11 1.3 2.5mg 05/10 --- 5mg Assessment/Plan: 1. Subtherapeutic INR d/t new start. Increase dose to 5mg today. If DC today will order homecare INR for tomorrow 2. Will monitor for s/s of bleeding and drug interactions and adjust dose accordingly 3. Will facilitate f/u at [facility] upon discharge 4. Provided warfarin education including [facility] warfarin booklet Arely Mitchell PharmD ANTHONY is available daily [phone] via [employer]. If no response on [employer] then please [phone]. * Kena Tavera, ROTOGRAVURE PRESS OPERATOR - 05/13/2020 12:15 PM EDT Physical Therapy Facility/Department: [facility] Daily Treatment Note NAME: Ascencion Weir : 1950 Date of Service: 05/13/2020 Discharge Recommendations: Home with assist PRN, Home with Home health PT PT Equipment Recommendations Equipment Needed: (owns FWW) Assessment Body structures, Functions, Activity limitations: Decreased functional mobility ;Decreased ROM;Decreased strength;Decreased posture;Increased pain;Decreased endurance Assessment: mildly impulsive and cues for sternal precautions. SOBOE especially with conversation. SpO2 98% HR stable 95-105bpm. suggest use of FWW at this time due to energy conservation and relief from back/sciatic issues, as well as stability and security. patient owns FWW. need to address stepsnext session. good UE ROM, I.S. use. states he has , daughter and grand daughter at home to assist. rec home with assist and homecare. discuss with PT. Prognosis: Good;Fair REQUIRES PT FOLLOW UP: Yes Activity Tolerance Activity Tolerance: Patient limited by endurance Patient Diagnosis(es): There were no encounter diagnoses. has a past medical history of Arthritis, Benign prostatic hyperplasia, CAD (coronary artery disease), Chronic back pain, CPAP (continuous positive airway pressure) dependence, Diabetes mellitus (HCC), Hyperlipidemia, Hypertension, Nonrheumatic aortic (valve) stenosis, Obesity, and Sleep apnea. has a past surgical history that includes joint replacement; Total knee arthroplasty; and Hand surgery. Restrictions Restrictions/Precautions Restrictions/Precautions: Surgical Protocols Required Braces or Orthoses?: No Upper Extremity Weight Bearing Restrictions Other: sternal precautions Position Activity Restriction Sternal Precautions: No Pushing, No Pulling, 10# Lifting Restrictions Sternal Precautions: yes Other position/activity restrictions: frequent cues for sternal precautions Subjective General Chart Reviewed: Yes Family / Caregiver Present: No Subjective Subjective: mildly impulsive. misses his dog. seated in chair, shoes are on. agree to PT Orientation Orientation Overall Orientation Status: Within Functional Limits Cognition Cognition Overall Cognitive Status: WFL Objective Bed mobility Supine to Sit: Moderate assistance(trunk) Sit to Supine: Moderate assistance(BLE's) Comment: instruct logroll technique, elevate head as able Transfers Sit to Stand: Stand by assistance Stand to sit: Stand by assistance Comment: several reps, cues for sternal precautions Ambulation Ambulation?: Yes More Ambulation?: Yes Ambulation 1 Surface: level tile Device: No Device Assistance: Minimal assistance Quality of Gait: heavy lateral shift Gait Deviations: Decreased step length;Decreased step height Distance: 12'+80' Ambulation 2 Surface - 2: level tile Device 2: Rolling Walker Assistance 2: Stand by assistance Quality of Gait 2: rapid pace, SOB, increased lateral sway Gait Deviations: Decreased step length;Decreased step height Distance: 125' Comments: stand restX1 due to SOB, cues decrease conversation Ambulation 3 Comments: instruct walk program Balance Comments: stance toileting and personal care close supervision Exercises Hip Flexion: seated Knee Long Arc Quad: . Ankle Pumps: . Upper Extremity: P&C 5reps each, self instructed with handout and minimal cues needed. increased time due to SOBOE. Comments: 10reps BLE AROM Other exercises Other exercises?: (I.S. 1500ml) Goals Short term goals Time Frame for Short term goals: 2 weeks Short term goal 1: Bed mobility min of 1, PROGRESSING Short term goal 2: Sit to stand supv, PROGRESSING Short term goal 3: Amb 250' or 5 minutes RPE 14 or lower from endurance perspective, PROGRESSING Short term goal 4: Indep managing secretions and modified home walking program (will minimize distance), PROGRESSING Short term goal 5: Indep P&C ex, PROGRESSING Short term goal 6: 3 stairs, rail for balance, min of 1, NOT ADDRESSED Patient Goals Patient goals : get my hip fixed, so I can mow my lawn Plan Plan Times per week: 5-6 Plan weeks: 2 Current Treatment Recommendations: Strengthening, ROM, Balance Training, Functional Mobility Training, Stair training, Gait Training, Transfer Training, Endurance Training, Home Exercise Program Plan Comment: strengthening for LEs only Safety Devices Type of devices: All fall risk precautions in place, Call light within reach, Chair alarm in place,Left in chair Restraints Initially in place: No Therapy Time Individual Concurrent Group Co-treatment Time In 929 Time Out 1004 Minutes 34 Timed Code Treatment Minutes: (GT-TP) *N95, eye protection, worn by me during patient encounter* Kena Tavera, ROTOGRAVURE PRESS OPERATOR Associated attestation - Colin Ramirez, PT - 05/13/2020 12:33 PM EDT Pt's performance nicely improved. Would be amenable to home based on family support, but feel, if pt wished/ physician approved, rehab could still be an option to increase functional endurance. * Skylar Jang MD - 05/13/2020 10:43 AM EDT ENDOCRINOLOGY PROGRESS NOTE Patient: Ascencion Weir Unit/Bed:[address] Date of : 1950 Admit date: 05/08/2020 Patient Seen,Chart, Consults notes, Labs, Radiology studies reviewed. 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 Past, Family, Social History unchanged from admission. Diet: DIET CARDIAC; Carb Control: 4 carb choices (60 gms)/meal Medications: Scheduled Meds: amiodarone 400 mg Oral BID warfarin 2.5 mg Oral Once insulin glargine 18 Units Subcutaneous QAM insulin lispro 7 Units Subcutaneous TID WC metoprolol tartrate 12.5 mg Oral BID enoxaparin 40 mg Subcutaneous Daily tamsulosin 0.4 mg Oral Daily celecoxib 100 mg Oral BID pantoprazole 40 mg Oral QAM AC insulin lispro 0-6 Units Subcutaneous TID WC sodium chloride flush 10 mL Intravenous 2 times per day acetaminophen 1,000 mg Oral Q8H polyethylene glycol 17 g Oral Daily sennosides-docusate sodium 2 tablet Oral Nightly atorvastatin 80 mg Oral Nightly aspirin 81 mg Oral Daily gabapentin 400 mg Oral TID Continuous Infusions: dextrose PRN Meds:traMADol OR traMADol, sodium chloride flush, potassium chloride, magnesium sulfate, calcium gluconate, potassium chloride, glucose, dextrose, glucagon (rDNA), dextrose Objective: BMP: Recent Labs 05/12/20 0030 05/12/20 0827 05/13/20 0050 NA 132* 132* 133* K 3.7 4.3 4.1 CL 102 95* 98 CO2 25 27 28 BUN 23* 24* 27* CREATININE 0.89 0.90 0.94 GLUCOSE 190* 286* 150* Glucose: Recent Labs 05/11/20 1306 05/11/20 1639 05/12/20 0737 05/12/20 1142 05/12/20 1429 05/12/20 1731 05/12/20202105/13/20 0724 POCGLU 215* 209* 192* 245* 217* 245* 195* 191* HgbA1C: No results for input(s): LABA1C in the last 72 hours. Hepatic: No results for input(s): ALKPHOS, ALT, AST, PROT, BILITOT, BILIDIR, LABALBU in the last 72hours. Lipids: No results for input(s): CHOL, TRIG, HDL, LDLCALC in the last 72 hours. Invalid input(s): LDL Physical Exam: Vitals: BP 117/61 Pulse 79 Temp 98.7 F (37.1 C) (Axillary) Resp 16 Ht 5' 8 (1.727 m) Wt 225 lb 11.2 oz (102.4 kg) SpO2 95% BMI 34.32 kg/m 24 hour intake/output: Intake/Output Summary (Last 24 hours) at 05/13/2020 1043 Last data filed at 05/13/2020 0600 Gross per 24 hour Intake 2487 ml Output 2350 ml Net 137 ml Physical Exam Vitals signs reviewed. Constitutional: General: He is not in acute distress. Appearance: He is well-developed. He is obese. Eyes: General: No scleral icterus. Conjunctiva/sclera: Conjunctivae normal. Neck: Musculoskeletal: Neck supple. Thyroid: No thyromegaly. Cardiovascular: Rate and Rhythm: Normal rate and regular rhythm. Pulses: Normal pulses. Heart sounds: Normal heart sounds. No murmur. Comments: Chest incision intact Pulmonary: Effort: Pulmonary effort is normal. No respiratory distress. Breath sounds: No wheezing, rhonchi or rales. Abdominal: General: There is no distension. Palpations: Abdomen is soft. There is no hepatomegaly, splenomegaly or mass. Tenderness: There is no abdominal tenderness. There is no guarding or rebound. Musculoskeletal: General: No swelling, tenderness or deformity. Lymphadenopathy: Cervical: No cervical adenopathy. Skin: General: Skin is warm and dry. Findings: No erythema or rash. Neurological: Mental Status: He is alert. Cranial Nerves: No cranial nerve deficit. Motor: No tremor. Psychiatric: Mood and Affect: Mood normal. Speech: Speech normal. Behavior: Behavior normal. Behavior is cooperative. Assessment: Type 2 DM with complications, on long-term insulin Type 2 DM with stress hyperglycemia CAD s/p CABG s/p AVR Plan: DM plan as inpatient: - will continue Lantus 18 units QAM - will continue Humalog 7 units with each meal TID - hold Humalog while NPO - continue Humalog low dose sliding scale insulin 3 times a day with meals - monitor blood glucose QAC and HS - management of hypoglycemia per protocol - carb control diet Counseling: - counseled patient regarding DM management - discussed importance of adequate glycemic control and compliance - counseled pt regarding healthy lifestyle with diet/activity Home going Diabetes regimen: - Levemir (with current dose) and resume Trulicity 1.5 mg weekly - pt will FU with PCP on discharge Time spent with patient over 51% total time 25 minutes which includes review of records, counseling, management, and coordination of care as documented in note. * Arely Mitchell [facility] - 05/13/2020 8:29 AM EDT [facility] Anticoagulation Management Service ([facility]) Inpatient Warfarin Consult HPI: Ascencion Weir is a 69 y.o. male admitted on 05/08/2020 for S/P AVR. Past Medical History: Diagnosis Date Arthritis Benign prostatic hyperplasia CAD (coronary artery disease) Chronic back pain CPAP (continuous positive airway pressure) dependence Diabetes mellitus (HCC) Hyperlipidemia Hypertension Nonrheumatic aortic (valve) stenosis Obesity Sleep apnea Patient is newly referred to the [facility] clinic for warfarin management. Pt was referred by Dr Burkett. Pt is on warfarin for Heart Valve Replacement and has a goal INR 2.0 - 3.0 . Duration of therapy= 3 months. Reason for warfarin start instead of DOAC: valve replacement PCP: Aaron Solorzano S/sx of bleeding= Low H/H, no signs of bleeding per notes Interacting medications= ASA, Lovenox, amiodarone Labs: Recent Labs 05/11/20 0520 05/12/20 0029 05/12/20 0547 05/13/20 0050 HGB 7.3* 7.3* 8.4* 8.6* HCT 20.2* 20.8* -- 23.9* PLT 85* 98* -- 128* Recent Labs 05/13/20 0050 INR 1.3* Date INR Dose 05/13 1.3 2.5mg 05/12 1.3 2.5mg 05/11 1.3 2.5mg 05/10 --- 5mg Assessment/Plan: 1. Subtherapeutic INR d/t new start. Will give 2.5mg x1 more day given new amiodarone. Increase dose tomorrow if no movement 2. Will monitor for s/s of bleeding and drug interactions and adjust dose accordingly 3. Will facilitate f/u at [facility] upon discharge 4. Provided warfarin education including [facility] warfarin booklet Arely Mitchell PharmD ANTHONY is available daily [phone] via miLibris. If no response on Biscottive then please [phone]. * Velasquez Savage, CONSOLE ATTENDANT - CLIENT SERVICES MANAGER - 05/13/2020 6:04 AM EDT Cardiothoracic Surgery Progress Note PATIENT NAME: Ascencion Weir : 1950 (69 y.o.) TODAY'S DATE: 05/13/2020 Interval History: 05/08: CABGx1 (SVG to PDA of RCA) left thigh EVH; SAVR (23mm [place] Trifecta bioprosthesis) POD#5: Pt doing well converted out of A-Fib on amiodarone gtt - up walking - HGB improved after oneunit of blood - Temp: 98.2 F (36.8 C) Pulse: 77 BP: 122/64 Resp: 16 SpO2: 94 % Recent Labs 05/11/20 0346 05/11/20 0520 05/12/20 0029 05/12/20 0030 05/12/20 0547 05/12/20 0827 05/13/20 0050 WBC -- -- 5.7 4.8 -- -- -- 5.9 HGB -- < > 7.3* 7.3* -- 8.4* -- 8.6* PLT -- -- 85* 98* -- -- -- 128* INR 1.3* -- -- -- 1.3* -- -- 1.3* NA 130* -- -- -- 132* -- 132* 133* K 4.4 -- -- -- 3.7 -- 4.3 4.1 CREATININE 0.96 -- -- -- 0.89 -- 0.90 0.94 < > = values in this interval not displayed. CXR Lines R IJ (05/08) I&O - 5L fluid balance; 1.2 L UO/24hrs CT output 260cc/24hrs; 70/12hrs. Home meds - tramadol, detemir (28units HS), ASA (81), atorvastatin (20mg), metoprolol succinate (50mg), tamsulosin (0.4mg), metformin 1000mg BID, celebrex (200mg BID), neurontin (400mg TID) hydroxychloroquine (200mg daily), lisinopril (20mg daily), Dulaglutide (1.5mg once weekly Mon) [x] Current Medications, pmHx, Allergies, and sHx reviewed and updated as appropriate Review of Systems Constitutional: Negative for diaphoresis, fatigue and fever. Respiratory: Positive for shortness of breath. Negative for cough and wheezing. Cardiovascular: Negative for chest pain, palpitations and leg swelling. Gastrointestinal: Negative for abdominal distention, constipation and diarrhea. Skin: Negative for color change, pallor and rash. Physical Exam Constitutional: Interventions: Nasal cannula in place. Cardiovascular: Rate and Rhythm: Normal rate and regular rhythm. Heart sounds: Normal heart sounds. No murmur. Pulmonary: Effort: Pulmonary effort is normal. Breath sounds: Examination of the right-middle field reveals rhonchi. Examination of the right-lower field reveals decreased breath sounds. Examination of the left-lower field reveals decreased breath sounds. Decreased breath sounds and rhonchi present. Abdominal: General: Bowel sounds are normal. There is distension. Palpations: Abdomen is soft. Abdomen is not rigid. Tenderness: There is no abdominal tenderness. Skin: General: Skin is warm and dry. Capillary Refill: Capillary refill takes less than 2 seconds. Neurological: Mental Status: He is alert. Psychiatric: Behavior: Behavior normal. Behavior is cooperative. Assessment/Plan Patient Active Problem List Diagnosis Code Coronary atherosclerosis of [place] coronary artery I25.10 Aortic valve stenosis I35.0 Aortic stenosis, severe I35.0 Uncontrolled type 2 diabetes mellitus with complication (HCC) E11.8, E11.65 S/P CABG x 1 Z95.1 S/P AVR Z95.2 Sleep apnea G47.30 Benign prostatic hyperplasia N40.0 Hyperlipidemia E78.5 Chronic back pain M54.9, G89.29 Hypertension I10 Arthritis M19.90 Postoperative anemia due to acute blood loss D62 Thrombocytopenia (HCC) D69.6 Severe /CAD/HTN/HLD s/p CABGx1 (SVG to PDA of RCA) left thigh EVH; SAVR (23mm [place] Trifecta bioprosthesis) on 05/08 EF: 60%-03/11/20 Continue care per orders:hold morning BB; hold lasix today Discharge planning: PT recommending IP rehab will work with social Cardiac Core Medications: ASA, Statin and BB(hold today 05/12) Blood Conservation: 05/11: 1 unit PRBC drop in Hgb. DVT prophylaxis: TEDs, SCDs, Lovenox and Coumadin Coumadin: Anthony consulted managing; INR 2-3 3 months AVR bioprosthetic Post Operative Pulmonary Management w hx/ LIAN CPAP dependence Normal Post-Operative Course 2LNC during day; CPAP at HS CCM:following peripherally Maintain SpO2 >92% and Increase Activity, Encourage Pulmonary Hygiene: Acapella, Incentive Spirometry, Cough and Deep Breathing T2DM Insulin per endo BPH flomax Chronic back pain/Arthritis Tramadol, gabapentin, celecoxib Acute blood loss anemia/consumptive thrombocytopenia HGB stable at 8.6 today Disclaimer ? INFORMED CONSENT:The nature and purpose of the proposed treatment or procedure have been discussed. The risks and benefits of the proposed treatment or procedures have been reviewed. Alternatives have been reviewed in addition to the risks and benefits of not receiving treatments or undergoing procedures. Pursuant to this discussion, the patient agrees to undergo the proposed treatment or procedure. ? Captured images seen in this note from are not a substitute for a comprehensive interpretation ofthe entire data set as reflected by the interpreting physician with regard to radiology, echocardiography, and other diagnostic images. ? This note may have been dictated using Typemock Practice Edition 2.6 and/or [employer] Voice Recognition Feature. The document was proofread, however unrecognized voice recognition hr administrator errors may be present. * Valentina Gonzalez, , RD, LD - 05/12/2020 3:12 PM EDT Comprehensive Nutrition Assessment Type and Reason for Visit: Reassess Nutrition Recommendations/Plan: 1. Can continue on with diet as ordered (Cardiac/1800 calorie Carbohydrate Control). 2. Continue to monitor adequacy of PO intake; noted Ensure HP ordered BID, pt reports good appetiteand no n/v or other issues; will therefore discontinue ONS. 3. RD to monitor weight, labs, fluid, diet education needs (pt declines), and follow up weekly. Nutrition Assessment: POD #4 s/p CABG and AVR, chest tubes out this date. RD spoke with pt in room,has been tolerating PO diet without issue, just ordered a meal. Denies n/v. 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 Denied having any issue ordering his meals during admission. RD did see Heart Healthy handout on pt's bedside table, opened up handout for pt to describe basic diet principles; RD encouraged intake of nonstarchy vegetables and gave examples of lean proteins, encouraged intake of low-fat dairy products (again, provided examples) and encouraged pt/family to refer to food labels/nutrition fact panels. Pt verbalized understanding, stating he had no diet questions/concerns. Malnutrition Assessment: Malnutrition Status: Insufficient data Nutrition Related Findings: neg I/O; +BS; No edema indicated; medications include insulin, PPI, statin; labs: Glucose (286), noted recent hemoglobin a1c was 5.7%, Sodium (132) Wounds: Surgical Wound Current Nutrition Therapies: DIET CARDIAC; Carb Control: 4 carb choices (60 gms)/meal Dietary Nutrition Supplements: Low Calorie High Protein Supplement Anthropometric Measures: Height: 5' 8 (172.7 cm) Current Body Weight: 220 lb 0.3 oz (99.8 kg) Admission Body Weight: Usual Body Weight: 222 lb (100.7 kg)(209# on 05/01/20, 222# on 04/22/20) [place] Body Weight: 154 lbs; % [place] Body Weight 142.9 % BMI: 33.5 BMI Categories: Obese Class 1 (BMI 30.0-34.9) Nutrition Interventions: Food and/or Nutrient Delivery: Continue Current Diet Nutrition Education/Counseling: No recommendation at this time(Handout previously provided, pt without diet questions/concerns) Coordination of Nutrition Care: Continued Inpatient Monitoring Goals: Pt will consume >75% estimated energy and protein needs daily Nutrition Monitoring and Evaluation: Behavioral-Environmental Outcomes: Knowledge or Skill Food/Nutrient Intake Outcomes: Diet Advancement/Tolerance, Food and Nutrient Intake Physical Signs/Symptoms Outcomes: Biochemical Data, Weight, Skin Discharge Planning: Continue current diet Contact: pager [phone] * Misael Rush APRN - CNP - 05/12/2020 1:55 PM EDT Chest tubes assessed: no air leak, subcutaneous air noted. Chest tubes removed without difficulty and dressing applied. Patient tolerated well. Patient and nurse educated on possible complications toobserve for. Will continue to monitor. * Kena Tavera PTA - 05/12/2020 12:56 PM EDT Physical Therapy Facility/Department: [facility] Daily Treatment Note NAME: Ascencion Weir : 1950 Date of Service: 05/12/2020 Discharge Recommendations: IP Rehab, Continue to assess pending progress Assessment Body structures, Functions, Activity limitations: Decreased functional mobility ;Decreased ROM;Decreased strength;Decreased posture;Increased pain;Decreased endurance Assessment: impulsive, frequent cues sternal precautions, redirection needed often. limited stance tolerance due to SOB and c/o dizziness. no gait attempted due to HR and lack of stance tolerance. rec rehab at this time. Prognosis: Good;Fair REQUIRES PT FOLLOW UP: Yes Activity Tolerance Activity Tolerance: Patient limited by endurance Patient Diagnosis(es): There were no encounter diagnoses. has a past medical history of Arthritis, Benign prostatic hyperplasia, CAD (coronary artery disease), Chronic back pain, CPAP (continuous positive airway pressure) dependence, Diabetes mellitus (HCC), Hyperlipidemia, Hypertension, Nonrheumatic aortic (valve) stenosis, Obesity, and Sleep apnea. has a past surgical history that includes joint replacement; Total knee arthroplasty; and Hand surgery. Restrictions Restrictions/Precautions Restrictions/Precautions: Surgical Protocols Required Braces or Orthoses?: No Upper Extremity Weight Bearing Restrictions Other: sternal precautions Position Activity Restriction Sternal Precautions: No Pushing, No Pulling, 10# Lifting Restrictions Sternal Precautions: yes Other position/activity restrictions: frequent cues for sternal precautions Subjective General Chart Reviewed: Yes Family / Caregiver Present: No Subjective Subjective: seated in chair, AFIB. HR 120-155bpm. SOB at rest General Comment Comments: CT x 2, tele, O2 Pain Screening Patient Currently in Pain: Yes Pain Assessment Pain Type: Chronic pain Pain Location: Back(sciatic pain LLE) Vital Signs Patient Currently in Pain: Yes Orientation Orientation Overall Orientation Status: Within Functional Limits Cognition Cognition Overall Cognitive Status: WFL Cognition Comment: anxious Objective Transfers Sit to Stand: Minimal Assistance Stand to sit: Minimal Assistance Comment: 4reps, cues for sternal precautions Balance Comments: stance BUE support min assist. limited duration due to SOB Exercises Gluteal Sets: . Hip Flexion: seated Knee Long Arc Quad: . Ankle Pumps: . Upper Extremity: P&C 5reps each, handout provided. increased time due to SOBOE. Comments: 10reps BLE AROM Other exercises Other exercises?: (I.S. 1250ml,. cough strong nonproductive) Goals Short term goals Time Frame for Short term goals: 2 weeks Short term goal 1: Bed mobility min of 1, not addressed Short term goal 2: Sit to stand supv, PROGRESSING Short term goal 3: Amb 250' or 5 minutes RPE 14 or lower from endurance perspective, not addressed Short term goal 4: Indep managing secretions and modified home walking program (will minimize distance), PROGRESSING Short term goal 5: Indep P&C ex, PROGRESSING Short term goal 6: 3 stairs, rail for balance, min of 1, NOT ADDRESSED Patient Goals Patient goals : get my hip fixed, so I can mow my lawn Plan Plan Times per week: 5-6 Plan weeks: 2 Current Treatment Recommendations: Strengthening, ROM, Balance Training, Functional Mobility Training, Stair training, Gait Training, Transfer Training, Endurance Training, Home Exercise Program Plan Comment: strengthening for LEs only Safety Devices Type of devices: All fall risk precautions in place, Call light within reach, Left in chair, Chair alarm in place Restraints Initially in place: No Therapy Time Individual Concurrent Group Co-treatment Time In 935 Time Out 1000 Minutes 24 Timed Code Treatment Minutes: (FA-TP) *N95, eye protection, worn by me during patient encounter* Kena Tavera, ROTOGRAVURE PRESS OPERATOR * Fannie Dunn, [facility] - 05/12/2020 10:05 AM EDT [facility] Anticoagulation Management Service ([facility]) Inpatient Warfarin Consult HPI: Ascencion Weir is a 69 y.o. male admitted on 05/08/2020 for S/P AVR. Past Medical History: Diagnosis Date Arthritis Benign prostatic hyperplasia CAD (coronary artery disease) Chronic back pain CPAP (continuous positive airway pressure) dependence Diabetes mellitus (HCC) Hyperlipidemia Hypertension Nonrheumatic aortic (valve) stenosis Obesity Sleep apnea Patient is newly referred to the [facility] clinic for warfarin management. Pt was referred by Dr Burkett. Pt is on warfarin for Heart Valve Replacement and has a goal INR 2.0 - 3.0 . Duration of therapy= 3 months. Reason for warfarin start instead of DOAC: valve replacement PCP: Aaron Solorzano S/sx of bleeding= Low H/H, no signs of bleeding per notes Interacting medications= ASA, Lovenox Labs: Recent Labs 05/10/20 0526 05/11/20 0520 05/12/20 0029 05/12/20 0547 HGB 7.7* 7.3* 7.3* 8.4* HCT 21.8* 20.2* 20.8* -- PLT 75* 85* 98* -- Recent Labs 05/12/20 0030 INR 1.3* Date INR Dose 05/12 1.3 2.5 1 unit PRBC overnight 05/11 1.3 2.5mg 1 unit PRBC 05/10 --- 5mg Assessment/Plan: 1. Subtherapeutic INR d/t new start. NOTE: new afib noted today; amio bolus and drip started. Will give 2.5mg again today 2. Will monitor for s/s of bleeding and drug interactions and adjust dose accordingly 3. Will facilitate f/u at [facility] upon discharge 4. Provided warfarin education including [facility] warfarin booklet Fannie Dunn, PharmD [facility] is available daily [phone] via miLibris. If no response on Biscottive then please [phone]. * Kaleigh Dietz, CONSOLE ATTENDANT - CLIENT SERVICES MANAGER - 05/12/2020 8:45 AM EDT . Department of Internal Medicine Section of Endocrinology Nurse Practitioner Progress Note CHIEF COMPLAINT: CHIEF COMPLAINT: The patient is a 69 y.o. male who presents with PMH of aortic stenosis, progressive shortness of breath. Other PMH includes HTN, DM2, BPH, LIAN. Pt is s/p CABG x 1 and AVR. Currently pt is sedated, intubated in the ICU. SUBJECTIVE: Admit date: 05/08/2020 Original Endocrine Consult date: 05/08/2020 OutPt Regional Director Of Admissions: none Lab Results Component Value Date LABA1C 5.7 05/01/2020 Lab Results Component Value Date EAG 117 05/01/2020 Lab Results Component Value Date CREATININE 0.89 05/12/2020 Pre-Admission Home DM regimen: trulicity 1.5mg weekly levmir Since last inpatient Endocrine encounter patient reports: He went into Atrial fib and is re eiving amiodarone iv Font[place] has been eating well and has been up in the room walking around He denies pain Current Insulin regimen: Lantus 10 Humalog 0 Low dose sliding scale Insulin gtt DC'd on: 05/09/2020 Inpt glucocorticoid use: [] YES [x] NO Glucose and Insulin Review: Per COLLEEN Hypoglycemia Event(s) in the past 24 hrs: [] Yes [x] No Other notes in EMR reviewed: [x]YES, [] NO Tolerating PO intake: [x] Yes [] No PO intake: More than at home []; Same as at home []; Less than at home [x] carb controlled cardiac No Known Allergies Past Medical History: Diagnosis Date Arthritis Benign prostatic hyperplasia CAD (coronary artery disease) Chronic back pain CPAP (continuous positive airway pressure) dependence Diabetes mellitus (HCC) Hyperlipidemia Hypertension Nonrheumatic aortic (valve) stenosis Obesity Sleep apnea Past Surgical History: Procedure Laterality Date HAND SURGERY surgery for MRSA JOINT REPLACEMENT TOTAL KNEE ARTHROPLASTY Family History Problem Relation Age of Onset Heart Attack Mother Heart Attack Father Social History Tobacco Use Smoking status: Former Smoker Packs/day: 1.50 Years: 25.00 Pack years: 37.50 Last attempt to quit: 1989 Years since quittin. Smokeless tobacco: Former User Types: Snuff Substance Use Topics Alcohol use: Never Frequency: Never Current Inpatient Medications Current Facility-Administered Medications: traMADol (ULTRAM) tablet 25 mg, 25 mg, Oral, Q6H PRN OR traMADol (ULTRAM) tablet 50 mg, 50 mg, Oral, Q6H PRN calcium gluconate 2 g in dextrose 5 % 100 mL IVPB, 2 g, Intravenous, Once amiodarone (CORDARONE) 150 mg in dextrose 5 % 100 mL bolus, 150 mg, Intravenous, Once FOLLOWED BY amiodarone (CORDARONE) 450 mg in dextrose 5 % 250 mL infusion, 1 mg/min, Intravenous, Continuous FOLLOWED BY amiodarone (CORDARONE) 450 mg in dextrose 5 % 250 mL infusion, 0.5 mg/min, Intravenous, Continuous [START ON 05/13/2020] insulin glargine (LANTUS) injection vial 18 Units, 18 Units, Subcutaneous, QAM insulin lispro (HUMALOG) injection vial 7 Units, 7 Units, Subcutaneous, TID WC metoprolol tartrate (LOPRESSOR) tablet 12.5 mg, 12.5 mg, Oral, BID enoxaparin (LOVENOX) injection 40 mg, 40 mg, Subcutaneous, Daily tamsulosin (FLOMAX) capsule 0.4 mg, 0.4 mg, Oral, Daily celecoxib (CELEBREX) capsule 100 mg, 100 mg, Oral, BID pantoprazole (PROTONIX) tablet 40 mg, 40 mg, Oral, QAM AC insulin lispro (HUMALOG) injection vial 0-6 Units, 0-6 Units, Subcutaneous, TID WC sodium chloride flush 0.9 % injection 10 mL, 10 mL, Intravenous, 2 times per day sodium chloride flush 0.9 % injection 10 mL, 10 mL, Intravenous, PRN potassium chloride 20 mEq/50 mL IVPB (Central Line), 20 mEq, Intravenous, PRN magnesium sulfate 2 g in 50 mL IVPB premix, 2 g, Intravenous, PRN calcium gluconate 2 g in dextrose 5 % 100 mL IVPB, 2 g, Intravenous, PRN acetaminophen (TYLENOL) tablet 1,000 mg, 1,000 mg, Oral, Q8H polyethylene glycol (GLYCOLAX) packet 17 g, 17 g, Oral, Daily sennosides-docusate sodium (SENOKOT-S) 8.6-50 MG tablet 2 tablet, 2 tablet, Oral, Nightly ondansetron (ZOFRAN) injection 4 mg, 4 mg, Intravenous, Q8H PRN potassium chloride (KLOR-CON M) extended release tablet 20 mEq, 20 mEq, Oral, PRN atorvastatin (LIPITOR) tablet 80 mg, 80 mg, Oral, Nightly aspirin EC tablet 81 mg, 81 mg, Oral, Daily glucose (GLUTOSE) 40 % oral gel 15 g, 15 g, Oral, PRN dextrose 50 % IV solution, 12.5 g, Intravenous, PRN glucagon (rDNA) injection 1 mg, 1 mg, Intramuscular, PRN dextrose 5 % solution, 100 mL/hr, Intravenous, PRN gabapentin (NEURONTIN) capsule 400 mg, 400 mg, Oral, TID Subjective: Review of Systems Constitutional: Positive for activity change, appetite change and fatigue. Negative for chills, diaphoresis, fever and unexpected weight change. Respiratory: Negative for cough and shortness of breath. Cardiovascular: Negative for chest pain, palpitations and leg swelling. Gastrointestinal: Negative for diarrhea, nausea and vomiting. Objective: HgbA1C: No results for input(s): LABA1C in the last 72 hours. BMP: Recent Labs 05/10/20 0526 05/11/20 0346 05/12/20 0030 NA 131* 130* 132* K 4.3 4.4 3.7 CL 100 97* 102 CO2 22 27 25 BUN 18 24* 23* CREATININE 0.88 0.96 0.89 GLUCOSE 189* 174* 190* Glucose: Recent Labs 05/10/20 0914 05/10/20 1331 05/10/20 1637 05/10/20 2044 05/11/20 0759 05/11/20 1306 05/11/20 1639 05/12/20 0737 POCGLU 258* 274* 199* 273* 199* 215* 209* 192* Physical VITALS: BP (!) 144/49 Pulse 132 Temp 98.1 F (36.7 C) (Axillary) Resp 22 Ht 5' 8 (1.727 m) Wt 225 lb 3.2 oz (102.2 kg) SpO2 98% BMI 34.24 kg/m Physical Exam Constitutional: Appearance: Normal appearance. He is obese. Comments: Pleasant adult male answering questions appropriatly HENT: Head: Normocephalic and atraumatic. Right Ear: External ear normal. Left Ear: External ear normal. Nose: Nose normal. Mouth/Throat: Mouth: Mucous membranes are moist. Cardiovascular: Rate and Rhythm: Normal rate and regular rhythm. Pulses: Normal pulses. Pulmonary: Effort: Pulmonary effort is normal. No respiratory distress. Abdominal: General: Bowel sounds are normal. Palpations: Abdomen is soft. Musculoskeletal: Normal range of motion. Skin: General: Skin is warm and dry. Neurological: General: No focal deficit present. Mental Status: He is alert and oriented to person, place, and time. DATA Impression: I reviewed: [x] laboratory results []radiographic results At the time of today's encounter. Pt was advised of the results. ASSESSMENT: DM 2 controlled intermediate manager use of insulin Stress hyperglycemia Intractable back pain S/P CABG x1 S/P aortic valve replacement PLAN: The inpt antihyperglycemic regimen will be as follows: Increase lantus to 18units daily humalog IInpt GMF glucose goal 150. Inpt ICU glucose goal 180. Outpt goal A1C = 6.5. Insulin is necessary for ongoing mgmt. FSBS to occur qAC/HS/PRN for s/s of hyper-/hypoglycemia. FSBS data will be used to determine the next steps in antihyperglycemic medication titration duringhospital stay. If hypoglycemia were to occur it should be treated per hospital protocol. Diet recommendation: carb controlled If the pt is to be discharged from the hospital I recommend: Check blood sugar 4 times a day before meals and bedtime Recommended Scripts for DC-- levmir dose to be determined Resume trulicity 1.5mg weekly Glucose test strips 4x per day # 120 per month Lancets 4x per day # 120 per month Glucometer 1 device #1 Follow Up Testing-- Check blood sugar 4 times a day before meals and bedtime Outpt Follow Up Endo Visit (if needed) Timeframe-- Follow up with PCP at [facility] who has been managing his blood sugars Appointment request sent to office Endo office Staff: No Please page the on-call Regional Director Of Admissions if there are questions regarding Endocrine DC recommendations. If there are any questions or concerns related to the info in this note please page the eight section blower contact center consultant directly. On-Call information can be found in the [facility] Online Directory. We appreciate the opportunity to participate in this pt's ongoing medical care I spent 25 minutes with the pt which involved more than 51% of the timein coordination of care, medical evaluation, review of records, and/or counseling of the pt regarding her condition/disease state/prognosis on the date of this note. Electronically signed by: ARIADNE Butler CNP 05/12/20 8:46 AM * Misael Rush APRN - CNP - 05/12/2020 8:44 AM EDT Notified that patient in Afib; EKG reviewed- unheld morning dose of BB; amio bolus and gtt ordered * Misael Rush APRN - CNP - 05/12/2020 5:24 AM EDT Cardiothoracic Surgery Progress Note PATIENT NAME: Ascencion Weir : 1950 (69 y.o.) TODAY'S DATE: 05/12/2020 Interval History: 05/08: CABGx1 (SVG to PDA of RCA) left thigh EVH; SAVR (23mm [place] Trifecta bioprosthesis) POD#4: 25 Albumin/250cc LR/ 1 unit PRBC; hypotension + drop in Hgb. Wore PAP overnight-2LNC during day; was able to sleep. No BM. Patient resting in bed; pain controlled. feels good. Last recorded/verified vitals in [facility] Temp: 98.1 F (36.7 C) Pulse: 84 BP: 102/75 Resp: 22 SpO2: 96 % Recent Labs 05/10/20 0526 05/11/20 0346 05/11/20 0520 05/12/20 0029 05/12/20 0030 WBC 7.3 -- 5.7 4.8 -- HGB 7.7* -- 7.3* 7.3* -- PLT 75* -- 85* 98* -- INR -- 1.3* -- -- 1.3* NA 131* 130* -- -- 132* K 4.3 4.4 -- -- 3.7 CREATININE 0.88 0.96 -- -- 0.89 CXR Lines R IJ (05/08) I&O -3.8L fluid balance; 1.9L UO/24hrs CT output 260cc/24hrs; 70/12hrs. Home meds - tramadol, detemir (28units HS), ASA (81), atorvastatin (20mg), metoprolol succinate (50mg), tamsulosin (0.4mg), metformin 1000mg BID, celebrex (200mg BID), neurontin (400mg TID) hydroxychloroquine (200mg daily), lisinopril (20mg daily), Dulaglutide (1.5mg once weekly Mon) [x] Current Medications, pmHx, Allergies, and sHx reviewed and updated as appropriate Review of Systems Constitutional: Negative for diaphoresis, fatigue and fever. Respiratory: Positive for shortness of breath. Negative for cough and wheezing. Cardiovascular: Negative for chest pain, palpitations and leg swelling. Gastrointestinal: Negative for abdominal distention, constipation and diarrhea. Skin: Negative for color change, pallor and rash. Physical Exam Constitutional: Interventions: Nasal cannula in place. Cardiovascular: Rate and Rhythm: Normal rate and regular rhythm. Heart sounds: Normal heart sounds. No murmur. Pulmonary: Effort: Pulmonary effort is normal. Breath sounds: Examination of the right-middle field reveals rhonchi. Examination of the right-lower field reveals decreased breath sounds. Examination of the left-lower field reveals decreased breath sounds. Decreased breath sounds and rhonchi present. Abdominal: General: Bowel sounds are normal. There is distension. Palpations: Abdomen is soft. Abdomen is not rigid. Tenderness: There is no abdominal tenderness. Skin: General: Skin is warm and dry. Capillary Refill: Capillary refill takes less than 2 seconds. Neurological: Mental Status: He is alert. Psychiatric: Behavior: Behavior normal. Behavior is cooperative. Assessment/Plan Patient Active Problem List Diagnosis Code Coronary atherosclerosis of [place] coronary artery I25.10 Aortic valve stenosis I35.0 Aortic stenosis, severe I35.0 Uncontrolled type 2 diabetes mellitus with complication (HCC) E11.8, E11.65 S/P CABG x 1 Z95.1 S/P AVR Z95.2 Sleep apnea G47.30 Benign prostatic hyperplasia N40.0 Hyperlipidemia E78.5 Chronic back pain M54.9, G89.29 Hypertension I10 Arthritis M19.90 Postoperative anemia due to acute blood loss D62 Thrombocytopenia (HCC) D69.6 Severe /CAD/HTN/HLD s/p CABGx1 (SVG to PDA of RCA) left thigh EVH; SAVR (23mm [place] Trifecta bioprosthesis) on 05/08 EF: 60%-03/11/20 Continue care per orders:hold morning BB; lasix am; 2gm CaGluconate- hypocalcemia; D/C chest tubes later today Discharge planning: PT recommending IP rehab Cardiac Core Medications: ASA, Statin and BB(hold today 05/12) Blood Conservation: 05/11: 1 unit PRBC drop in Hgb. DVT prophylaxis: TEDs, SCDs, Lovenox and Coumadin Coumadin: Anthony consulted managing; INR 2-3 3 months AVR bioprosthetic Post Operative Pulmonary Management w hx/ LIAN CPAP dependence Normal Post-Operative Course 2LNC during day; CPAP at HS CCM:following peripherally Maintain SpO2 >92% and Increase Activity, Encourage Pulmonary Hygiene: Acapella, Incentive Spirometry, Cough and Deep Breathing T2DM Insulin per endo BPH flomax Chronic back pain/Arthritis Tramadol, gabapentin, celecoxib Acute blood loss anemia/consumptive thrombocytopenia Likely related to surgery: no active bleeding noted; s/p 1PRBC this am; continue to monitor and trend labs. Will discuss with CT Surgeon Disclaimer ? INFORMED CONSENT:The nature and purpose of the proposed treatment or procedure have been discussed. The risks and benefits of the proposed treatment or procedures have been reviewed. Alternatives have been reviewed in addition to the risks and benefits of not receiving treatments or undergoing procedures. Pursuant to this discussion, the patient agrees to undergo the proposed treatment or procedure. ? Captured images seen in this note from are not a substitute for a comprehensive interpretation ofthe entire data set as reflected by the interpreting physician with regard to radiology, echocardiography, and other diagnostic images. ? This note may have been dictated using Typemock Practice Edition 2.6 and/or [employer] Voice Recognition Feature. The document was proofread, however unrecognized voice recognition hr administrator errors may be present. * Steve Landry [facility] - 05/11/2020 9:01 AM EDT [facility] Anticoagulation Management Service ([facility]) Inpatient Warfarin Consult HPI: Ascencion Weir is a 69 y.o. male admitted on 05/08/2020 for <principal problem not specified>. Past Medical History: Diagnosis Date Arthritis Benign prostatic hyperplasia CAD (coronary artery disease) Chronic back pain CPAP (continuous positive airway pressure) dependence Diabetes mellitus (HCC) Hyperlipidemia Hypertension Nonrheumatic aortic (valve) stenosis Obesity Sleep apnea Patient is newly referred to the [facility] clinic for warfarin management. Pt was referred by Dr Burkett. Pt is on warfarin for Heart Valve Replacement and has a goal INR 2.0 - 3.0 . Duration of therapy= 3 months. Reason for warfarin start instead of DOAC: valve replacement PCP: Aaron Solorzano S/sx of bleeding= Low H/H, stable and no signs of bleeding per cardio note Interacting medications= ASA, Lovenox Labs: Recent Labs 05/09/20 0335 05/10/20 0526 05/11/20 0520 HGB 8.0* 7.7* 7.3* HCT 22.7* 21.8* 20.2* PLT 98* 75* 85* Recent Labs 05/11/20 0346 INR 1.3* Date INR Dose 05/11 1.3 2.5mg 05/10 --- 5mg Assessment/Plan: 1. Subtherapeutic INR d/t new start. Will give 2.5mg today 2. Will monitor for s/s of bleeding and drug interactions and adjust dose accordingly 3. Will determine if pt is agreeable to ANTHONY follow-up 4. Will provide warfarin education Thank you for this consult Steve Landry PharmD ANTHONY is available daily [phone] via miLibris. If no response on miLibris then please [email or web address]. * Kaleigh Dietz, CONSOLE ATTENDANT - CLIENT SERVICES MANAGER - 05/11/2020 8:19 AM EDT . Department of Internal Medicine Section of Endocrinology Nurse Practitioner Progress Note CHIEF COMPLAINT: CHIEF COMPLAINT: The patient is a 69 y.o. male who presents with PMH of aortic stenosis, progressive shortness of breath. Other PMH includes HTN, DM2, BPH, LIAN. Pt is s/p CABG x 1 and AVR. Currently pt is sedated, intubated in the ICU. SUBJECTIVE: Admit date: 05/08/2020 Original Endocrine Consult date: 05/08/2020 OutPt Regional Director Of Admissions: none Lab Results Component Value Date LABA1C 5.7 05/01/2020 Lab Results Component Value Date EAG 117 05/01/2020 Lab Results Component Value Date CREATININE 0.96 05/11/2020 Pre-Admission Home DM regimen: trulicity 1.5mg weekly levmir Since last inpatient Endocrine encounter patient reports: ^^^ Current Insulin regimen: Lantus 10 Humalog 0 Low dose sliding scale Insulin gtt DC'd on: 05/09/2020 Inpt glucocorticoid use: [] YES [x] NO Glucose and Insulin Review: Per COLLEEN Hypoglycemia Event(s) in the past 24 hrs: [] Yes [x] No Other notes in EMR reviewed: [x]YES, [] NO Tolerating PO intake: [x] Yes [] No PO intake: More than at home []; Same as at home []; Less than at home [x] carb controlled cardiac No Known Allergies Past Medical History: Diagnosis Date Arthritis Benign prostatic hyperplasia CAD (coronary artery disease) Chronic back pain CPAP (continuous positive airway pressure) dependence Diabetes mellitus (HCC) Hyperlipidemia Hypertension Nonrheumatic aortic (valve) stenosis Obesity Sleep apnea Past Surgical History: Procedure Laterality Date HAND SURGERY surgery for MRSA JOINT REPLACEMENT TOTAL KNEE ARTHROPLASTY Family History Problem Relation Age of Onset Heart Attack Mother Heart Attack Father Social History Tobacco Use Smoking status: Former Smoker Packs/day: 1.50 Years: 25.00 Pack years: 37.50 Last attempt to quit: 1989 Years since quittin.7 Smokeless tobacco: Former User Types: Snuff Substance Use Topics Alcohol use: Never Frequency: Never Current Inpatient Medications Current Facility-Administered Medications: metoprolol tartrate (LOPRESSOR) tablet 12.5 mg, 12.5 mg,Oral, BID insulin glargine (LANTUS) injection vial 12 Units, 12 Units, Subcutaneous, QAM insulin lispro (HUMALOG) injection vial 2 Units, 2 Units, Subcutaneous, TID WC furosemide (LASIX) injection 40 mg, 40 mg, Intravenous, Q12H enoxaparin (LOVENOX) injection 40 mg, 40 mg, Subcutaneous, Daily tamsulosin (FLOMAX) capsule 0.4 mg, 0.4 mg, Oral, Daily celecoxib (CELEBREX) capsule 100 mg, 100 mg, Oral, BID pantoprazole (PROTONIX) tablet 40 mg, 40 mg, Oral, QAM AC insulin lispro (HUMALOG) injection vial 0-6 Units, 0-6 Units, Subcutaneous, TID WC 0.9 % sodium chloride infusion, , Intravenous, Continuous 0.45 % sodium chloride infusion, , Intravenous, Continuous sodium chloride flush 0.9 % injection 10 mL, 10 mL, Intravenous, 2 times per day sodium chloride flush 0.9 % injection 10 mL, 10 mL, Intravenous, PRN potassium chloride 20 mEq/50 mL IVPB (Central Line), 20 mEq, Intravenous, PRN magnesium sulfate 2 g in 50 mL IVPB premix, 2 g, Intravenous, PRN calcium gluconate 2 g in dextrose 5 % 100 mL IVPB, 2 g, Intravenous, PRN acetaminophen (TYLENOL) tablet 1,000 mg, 1,000 mg, Oral, Q8H morphine (PF) injection 2 mg, 2 mg, Intravenous, Q2H PRN OR morphine (PF) injection 4 mg, 4 mg,Intravenous, Q2H PRN polyethylene glycol (GLYCOLAX) packet 17 g, 17 g, Oral, Daily sennosides-docusate sodium (SENOKOT-S) 8.6-50 MG tablet 2 tablet, 2 tablet, Oral, Nightly ondansetron (ZOFRAN) injection 4 mg, 4 mg, Intravenous, Q8H PRN chlorhexidine (PERIDEX) 0.12 % solution 15 mL, 15 mL, Mouth/Throat, BID mupirocin (BACTROBAN) 2 % ointment, , Nasal, BID potassium chloride (KLOR-CON M) extended release tablet 20 mEq, 20 mEq, Oral, PRN atorvastatin (LIPITOR) tablet 80 mg, 80 mg, Oral, Nightly aspirin EC tablet 81 mg, 81 mg, Oral, Daily 0.9 % sodium chloride bolus, 250 mL, Intravenous, PRN phenylephrine (SCOOTER-SYNEPHRINE) 50 mg in dextrose 5 % 250 mL infusion, 0.5 mcg/kg/min, Intravenous, Continuous PRN insulin regular (MYXREDLIN) 100 units in sodium chloride 0.9 % 100 ml infusion, 1 Units/hr, Intravenous, Continuous glucose (GLUTOSE) 40 % oral gel 15 g, 15 g, Oral, PRN dextrose 50 % IV solution, 12.5 g, Intravenous, PRN glucagon (rDNA) injection 1 mg, 1 mg, Intramuscular, PRN dextrose 5 % solution, 100 mL/hr, Intravenous, PRN insulin regular (HUMULIN R;NOVOLIN R) injection 4 Units, 4 Units, Intravenous, PRN oxyCODONE (ROXICODONE) immediate release tablet 5 mg, 5 mg, Oral, Q4H PRN OR oxyCODONE (ROXICODONE) immediate release tablet 10 mg, 10 mg, Oral, Q4H PRN gabapentin (NEURONTIN) capsule 400 mg, 400 mg, Oral, TID Subjective: Review of Systems Constitutional: Positive for activity change, appetite change and fatigue. Negative for chills, diaphoresis, fever and unexpected weight change. Respiratory: Negative for cough and shortness of breath. Cardiovascular: Negative for chest pain, palpitations and leg swelling. Gastrointestinal: Negative for diarrhea, nausea and vomiting. Objective: HgbA1C: No results for input(s): LABA1C in the last 72 hours. BMP: Recent Labs 05/09/20 0335 05/10/20 0526 05/11/20 0346 NA 136 131* 130* K 4.4 4.3 4.4 CL 104 100 97* CO2 22 22 27 BUN 17 18 24* CREATININE 1.04 0.88 0.96 GLUCOSE 84 189* 174* Glucose: Recent Labs 05/09/20 1720 05/09/20 1834 05/09/20 2005 05/10/20 0914 05/10/20 1331 05/10/20 1637 05/10/20 2044 05/11/20 0759 POCGLU 278* 264* 250* 258* 274* 199* 273* 199* Physical VITALS: BP (!) 125/53 Pulse 95 Temp 97.7 F (36.5 C) (Oral) Resp 22 Ht 5' 8 (1.727 m) Wt 231 lb 7.7 oz (105 kg) SpO2 93% BMI 35.20 kg/m Physical Exam Constitutional: Appearance: Normal appearance. He is obese. Comments: Pleasant adult male answering questions appropriatly HENT: Head: Normocephalic and atraumatic. Right Ear: External ear normal. Left Ear: External ear normal. Nose: Nose normal. Mouth/Throat: Mouth: Mucous membranes are moist. Cardiovascular: Rate and Rhythm: Normal rate and regular rhythm. Pulses: Normal pulses. Pulmonary: Effort: Pulmonary effort is normal. No respiratory distress. Abdominal: General: Bowel sounds are normal. Palpations: Abdomen is soft. Musculoskeletal: Normal range of motion. Skin: General: Skin is warm and dry. Neurological: General: No focal deficit present. Mental Status: He is alert and oriented to person, place, and time. DATA Impression: I reviewed: [x] laboratory results []radiographic results At the time of today's encounter. Pt was advised of the results. ASSESSMENT: DM 2 controlled retirement use of insulin Stress hyperglycemia Intractable back pain S/P CABG x1 S/P aortic valve replacement PLAN: The inpt antihyperglycemic regimen will be as follows: Increase lantus to 15 units daily humalog IInpt GMF glucose goal 150. Inpt ICU glucose goal 180. Outpt goal A1C = 6.5. Insulin is necessary for ongoing mgmt. FSBS to occur qAC/HS/PRN for s/s of hyper-/hypoglycemia. FSBS data will be used to determine the next steps in antihyperglycemic medication titration duringhospital stay. If hypoglycemia were to occur it should be treated per hospital protocol. Diet recommendation: carb controlled If the pt is to be discharged from the hospital I recommend: Check blood sugar 4 times a day before meals and bedtime Recommended Scripts for DC-- TBD Glucose test strips 4x per day # 120 per month Lancets 4x per day # 120 per month Glucometer 1 device #1 Follow Up Testing-- Check blood sugar 4 times a day before meals and bedtime Outpt Follow Up Endo Visit (if needed) Timeframe-- Follow up with PCP at [facility] who has been managing his blood sugars Appointment request sent to office Endo office Staff: No Please page the on-call Regional Director Of Admissions if there are questions regarding Endocrine DC recommendations. If there are any questions or concerns related to the info in this note please page the eight section blower contact center consultant directly. On-Call information can be found in the [facility] Online Directory. We appreciate the opportunity to participate in this pt's ongoing medical care I spent 25 minutes with the pt which involved more than 51% of the timein coordination of care, medical evaluation, review of records, and/or counseling of the pt regarding her condition/disease state/prognosis on the date of this note. Electronically signed by: ARIADNE Butler CNP 05/11/20 8:20 AM * Stevie Cherry RN - 05/11/2020 7:00 AM EDT Refused am medication. Refused to get up to chair at this time. * Migue Gregorio APRN - CNS - 05/11/2020 6:25 AM EDT Cardiothoracic Surgery Progress Note 05/11/2020 Subjective: Admit Date: 05/08/2020 Interval History: S/P AVR, CABGx1 on 05/08/20 POD#3- No issues over night Subjective: Resting in bed. States doing okay, didn't get much sleep last night, just few hours Objective: Vitals: No data recorded. BP (!) 125/53 Pulse 95 Temp 97.7 F (36.5 C) (Oral) Resp 22 Ht 5' 8 (1.727 m) Wt 231 lb 7.7 oz (105 kg) SpO2 93% BMI 35.20 kg/m I/O: Weights: Patient Vitals for the past 96 hrs (Last 3 readings): Weight 05/11/20 0459 231 lb 7.7 oz (105 kg) 05/08/20 0556 220 lb (99.8 kg) Labs: BMP: Recent Labs 05/09/20 03305/10/20 0505/11/20 0346 NA 136 131* 130* K 4.4 4.3 4.4 CL 104 100 97* CO2 22 22 27 BUN 17 18 24* CREATININE 1.04 0.88 0.96 GLUCOSE 84 189* 174* . CBC: Recent Labs 05/09/2033405/10/2052505/11/20 0520 WBC 7.5 7.3 5.7 RBC 2.55* 2.42* 2.27* HGB 8.0* 7.7* 7.3* HCT 22.7* 21.8* 20.2* MCV 88.9 89.9 88.8 MCH 31.3 31.8 31.9 MCHC 35.2 35.4 36.0 RDW 13.2 13.1 13.0 PLT 98* 75* 85* MPV 7.9 8.2 8.2 Hepatic: No results for input(s): AST, ALT, ALB, BILITOT, ALKPHOS in the last 72 hours. INR: Lab Results Component Value Date PROTIME 13.5 05/11/2020 INR 1.3 05/11/2020 Films: CXR portable: Reviewed Physical Exam: Physical Exam Constitutional: General: He is not in acute distress. Appearance: He is well-developed. He is obese. He is not diaphoretic. HENT: Head: Normocephalic and atraumatic. Nose: Nose normal. Mouth/Throat: Mouth: Mucous membranes are moist. Eyes: Pupils: Pupils are equal, round, and reactive to light. Neck: Musculoskeletal: Normal range of motion and neck supple. Vascular: No JVD. Cardiovascular: Rate and Rhythm: Normal rate and regular rhythm. Heart sounds: Normal heart sounds. No murmur. No friction rub. No gallop. Pulmonary: Effort: Pulmonary effort is normal. No respiratory distress. Breath sounds: Normal breath sounds. No stridor. Comments: Diminished Abdominal: General: Bowel sounds are normal. There is distension (obese). Palpations: Abdomen is soft. Tenderness: There is no abdominal tenderness. Musculoskeletal: Normal range of motion. General: No tenderness. Skin: General: Skin is warm and dry. Comments: Sternotomy incision intact with no signs of infection. Epicardial wires capped. Chest tubes to waterseal draining serosang drainage. No air leaks. Guzman to SD with clear jorje urine Neurological: Mental Status: He is alert and oriented to person, place, and time. Psychiatric: Mood and Affect: Mood normal. Behavior: Behavior normal. Thought Content: Thought content normal. Judgment: Judgment normal. Medications: Scheduled Meds: insulin glargine 12 Units Subcutaneous QAM insulin lispro 2 Units Subcutaneous TID WC metoprolol tartrate 25 mg Oral BID furosemide 40 mg Intravenous Q12H enoxaparin 40 mg Subcutaneous Daily tamsulosin 0.4 mg Oral Daily celecoxib 100 mg Oral BID pantoprazole 40 mg Oral QAM AC insulin lispro 0-6 Units Subcutaneous TID WC sodium chloride flush 10 mL Intravenous 2 times per day acetaminophen 1,000 mg Oral Q8H polyethylene glycol 17 g Oral Daily sennosides-docusate sodium 2 tablet Oral Nightly chlorhexidine 15 mL Mouth/Throat BID mupirocin Nasal BID atorvastatin 80 mg Oral Nightly aspirin 81 mg Oral Daily gabapentin 400 mg Oral TID Continuous Infusions: sodium chloride sodium chloride 20 mL/hr at 05/09/20 0830 phenylephrine (SCOOTER-SYNEPHRINE) 50mg/250mL infusion Stopped (05/09/20 1253) insulin Stopped (05/09/20 1253) dextrose Home Meds: Prior to Admission medications Medication Sig Start Date End Date Taking? Authorizing Provider traMADol (ULTRAM) 50 MG tablet Take 50 mg by mouth every 6 hours as needed for Pain. Yes HistoricalProviMD franchesca insulin detemir (LEVEMIR) 100 UNIT/ML injection vial Inject 28 Units into the skin nightly Yes Historical Provider, Multiple Vitamins-Minerals (THERAPEUTIC MULTIVITAMIN-MINERALS) tablet Take 1 tablet by mouth daily Yes Historical Provider, vitamin C (ASCORBIC ACID) 500 MG tablet Take 500 mg by mouth daily Yes Historical Provider, aspirin 81 MG EC tablet Take 81 mg by mouth daily Yes Historical Provider, atorvastatin (LIPITOR) 20 MG tablet Take 20 mg by mouth daily Yes Historical Provider, metoprolol succinate (TOPROL XL) 50 MG extended release tablet Take 50 mg by mouth daily Yes Historical Provider, tamsulosin (FLOMAX) 0.4 MG capsule Take 0.4 mg by mouth daily Yes Historical Provider, metFORMIN (GLUCOPHAGE) 1000 MG tablet Take 1,000 mg by mouth 2 times daily (with meals) Yes Historical Provider, celecoxib (CELEBREX) 200 MG capsule Take 200 mg by mouth 2 times daily Yes Historical Provider, gabapentin (NEURONTIN) 400 MG capsule Take 400 mg by mouth 3 times daily. Yes Historical Provider, hydroxychloroquine (PLAQUENIL) 200 MG tablet Take by mouth daily Yes Historical Provider, lisinopril (PRINIVIL;ZESTRIL) 20 MG tablet Take 20 mg by mouth daily Yes Historical Provider, mupirocin (BACTROBAN NASAL) 2 % nasal ointment Apply liberal amount on a q-tip and place in each nostril the night before surgery and then again the morning of surgery 04/22/20 Velasquez Savage, CONSOLE ATTENDANT -CLIENT SERVICES MANAGER Dulaglutide 1.5 MG/0.5ML SOPN Inject 1.5 mg into the skin once a week Mondays Historical Provider, Diet: DIET CARDIAC; Carb Control: 4 carb choices (60 gms)/meal Dietary Nutrition Supplements: Low Calorie High Protein Supplement Problem List: Active Problems: Aortic stenosis, severe Uncontrolled type 2 diabetes mellitus with complication (HCC) S/P CABG x 1 S/P AVR Resolved Problems: * No resolved hospital problems. * Assessment and Plan: 1. /CAD: Status post SAVR 23mm [place] Trifecta bioprosthesis, CABG X 1: SVG to PDA of RCA, EVH, Left thigh on 05/08/20 -EF 60% on Echo 03/18/20-see media -Core Medication: [x]ASA [x]BB [x] Statin [] ACEi/ARB EF>40% -Anticoagulation: ANTHONY consulted coumadin mgmt for tissue AVR Goal INR 2-3 for 3 months. INR 1.3 today after 5 mg coumadin yesterday. -Invasive Lines:Central Line: Day #3 -Guzman: Day# 3-Hx BPH On flomax. Will d/c if not already done 2. Post op Pulm. Mgmt/hxOSA: (Normal post op course) on 2L NC-97%. CXR: Reviewed by Dr. Burkett who is covering for Dr. Killian for the weekend during rounds today. Continue Lasix IV 40 mg BID ContinueC&DB, Enc use of IS. Plan to maintain chest tubes to water seal today. 3. Hypotension: SBP 80-100's Overnight. On metoprolol tartrate 25 mg BID will decrease to 12.5 mg BID 4. Blood loss Anemia: Hgb:7.3 Trending down. Lower BP's Plan per Dr. Burkett to give 1 U PRBC today.Continue to monitor CBC 5. Consumptive Thrombocytopenia: Platelets:85. Trending up. No s/s bleeding. Continue to monitor labs 6. DM/Stress Hyperglycemia: A1C Insulin per endocrine 7. Acute post op pain/hxArthritis: On scheduled tylenol, lidocaine patch and oxycodone IR prn with relief. On home celebrex 8. Constipation: No BM yet. Continue Miralax & senokot. +flatus 9. GI/DVT prophylaxis: PPI/SCD/Teds sq lovenox- will need discontinued after INR elevates 10. Disposition: Continue progressive care in [facility] Blood Conservation Initiative Log: - 05/08 Platelets, FFP, 2 RPBC * Stevie Cherry RN - 05/11/2020 5:48 AM EDT Small amount of urine noted to have leaked around guzman. * Stevie Cherry RN - 05/10/2020 11:53 PM EDT Assisted pt to sit up in chair at this time. Given call light and instructed to call before exitingchair. Voiced understanding. Chair alarm in place. * Camille Lara PTA - 05/10/2020 3:28 PM EDT Physical Therapy Facility/Department: [facility] Daily Treatment Note NAME: Ascencion Weir : 1950 Date of Service: 05/10/2020 Discharge Recommendations: IP Rehab, Continue to assess pending progress PT Equipment Recommendations Equipment Needed: No Assessment Body structures, Functions, Activity limitations: Decreased functional mobility ;Decreased ROM;Decreased strength;Decreased posture;Increased pain;Decreased endurance Assessment: Pt needs multiple cues to maintain sternal precautions. Gets SOB easily with gait. Fair- posture with gait as well due to left hip that needs replaced. Currently recommend rehab level PTbut will continue to assess. Prognosis: Good Decision Making: Medium Complexity REQUIRES PT FOLLOW UP: Yes Activity Tolerance Activity Tolerance: Patient Tolerated treatment well;Patient limited by endurance Patient Diagnosis(es): There were no encounter diagnoses. has a past medical history of Arthritis, Benign prostatic hyperplasia, CAD (coronary artery disease), Chronic back pain, CPAP (continuous positive airway pressure) dependence, Diabetes mellitus (HCC), Hyperlipidemia, Hypertension, Nonrheumatic aortic (valve) stenosis, Obesity, and Sleep apnea. has a past surgical history that includes joint replacement; Total knee arthroplasty; and Hand surgery. Restrictions Restrictions/Precautions Restrictions/Precautions: Weight Bearing, Fall Risk, General Precautions, Surgical Protocols Required Braces or Orthoses?: No Upper Extremity Weight Bearing Restrictions Other: sternal precautions Position Activity Restriction Sternal Precautions: No Pushing, No Pulling, 10# Lifting Restrictions Sternal Precautions: yes Subjective General Chart Reviewed: Yes Family / Caregiver Present: No Subjective Subjective: Pt supine in bed. Agreeable to PT. Pt on 2L O2 via NC. General Comment Comments: guzman, CT x 2, tele, O2 Pain Screening Patient Currently in Pain: Denies Vital Signs Patient Currently in Pain: Denies Orientation Orientation Overall Orientation Status: Within Functional Limits Cognition Cognition Overall Cognitive Status: WFL Objective Bed mobility Supine to Sit: Moderate assistance Sit to Supine: Moderate assistance Transfers Sit to Stand: Minimal Assistance Stand to sit: Minimal Assistance Comment: stood twice from EOB. 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 (may do better with a FWW once he doesnt have chest tubes) Stairs/Curb Stairs?: No Exercises Comments: P&C ex#1-9 x 5-7 reps each with good ROM. IS x 5 reps 750-1000 mL. Weak non productive cough Other exercises Other exercises?: No Goals Short term goals Time Frame for Short term goals: 2 weeks Short term goal 1: Bed mobility min of 1, PROGRESSING Short term goal 2: Sit to stand supv, PROGRESSING Short term goal 3: Amb 250' or 5 minutes RPE 14 or lower from endurance perspective, PROGRESSING Short term goal 4: Indep managing secretions and modified home walking program (will minimize distance), PROGRESSING Short term goal 5: Indep P&C ex, PROGRESSING Short term goal 6: 3 stairs, rail for balance, min of 1, NOT ADDRESSED Patient Goals Patient goals : get my hip fixed, so I can mow my lawn Plan Plan Times per week: 5-6 Plan weeks: 2 Current Treatment Recommendations: Strengthening, ROM, Balance Training, Functional Mobility Training, Stair training, Gait Training, Transfer Training, Endurance Training, Home Exercise Program Plan Comment: strengthening for LEs only Safety Devices Type of devices: Left in chair, All fall risk precautions in place Restraints Initially in place: No Therapy Time Individual Concurrent Group Co-treatment Time In 1435 Time Out 1506 Minutes 31 Timed Code Treatment Minutes: 31 Minutes(gait, TP) *This ROTOGRAVURE PRESS OPERATOR wore KN95, gloves and safety glasses during whole treatment session.* Camille Lara PTA * Kaleigh Dietz, CONSOLE ATTENDANT - CLIENT SERVICES MANAGER - 05/10/2020 8:14 AM EDT . Department of Internal Medicine Section of Endocrinology Nurse Practitioner Progress Note CHIEF COMPLAINT: CHIEF COMPLAINT: The patient is a 69 y.o. male who presents with PMH of aortic stenosis, progressive shortness of breath. Other PMH includes HTN, DM2, BPH, LIAN. Pt is s/p CABG x 1 and AVR. Currently pt is sedated, intubated in the ICU. SUBJECTIVE: Admit date: 05/08/2020 Original Endocrine Consult date: 05/08/2020 OutPt Regional Director Of Admissions: none Lab Results Component Value Date LABA1C 5.7 05/01/2020 Lab Results Component Value Date EAG 117 05/01/2020 Lab Results Component Value Date CREATININE 0.88 05/10/2020 Pre-Admission Home DM regimen: trulicity 1.5mg weekly levmir Since last inpatient Endocrine encounter patient reports: That he is felling well He has been up in chair He has been eating well He has been having pain on and off Current Insulin regimen: Lantus 10 Humalog 0 Low dose sliding scale Insulin gtt DC'd on: 05/09/2020 Inpt glucocorticoid use: [] YES [x] NO Glucose and Insulin Review: Per COLLEEN Hypoglycemia Event(s) in the past 24 hrs: [] Yes [x] No Other notes in EMR reviewed: [x]YES, [] NO Tolerating PO intake: [x] Yes [] No PO intake: More than at home []; Same as at home []; Less than at home [x] carb controlled cardiac No Known Allergies Past Medical History: Diagnosis Date Arthritis Benign prostatic hyperplasia CAD (coronary artery disease) Chronic back pain CPAP (continuous positive airway pressure) dependence Diabetes mellitus (HCC) Hyperlipidemia Hypertension Nonrheumatic aortic (valve) stenosis Obesity Sleep apnea Past Surgical History: Procedure Laterality Date HAND SURGERY surgery for MRSA JOINT REPLACEMENT TOTAL KNEE ARTHROPLASTY Family History Problem Relation Age of Onset Heart Attack Mother Heart Attack Father Social History Tobacco Use Smoking status: Former Smoker Packs/day: 1.50 Years: 25.00 Pack years: 37.50 Last attempt to quit: 1989 Years since quittin.7 Smokeless tobacco: Former User Types: Snuff Substance Use Topics Alcohol use: Never Frequency: Never Current Inpatient Medications Current Facility-Administered Medications: insulin glargine (LANTUS) injection vial 12 Units, 12 Units, Subcutaneous, QAM celecoxib (CELEBREX) capsule 100 mg, 100 mg, Oral, BID pantoprazole (PROTONIX) tablet 40 mg, 40 mg, Oral, QAM AC insulin lispro (HUMALOG) injection vial 0-6 Units, 0-6 Units, Subcutaneous, TID WC 0.9 % sodium chloride infusion, , Intravenous, Continuous 0.45 % sodium chloride infusion, , Intravenous, Continuous sodium chloride flush 0.9 % injection 10 mL, 10 mL, Intravenous, 2 times per day sodium chloride flush 0.9 % injection 10 mL, 10 mL, Intravenous, PRN potassium chloride 20 mEq/50 mL IVPB (Central Line), 20 mEq, Intravenous, PRN magnesium sulfate 2 g in 50 mL IVPB premix, 2 g, Intravenous, PRN calcium gluconate 2 g in dextrose 5 % 100 mL IVPB, 2 g, Intravenous, PRN acetaminophen (TYLENOL) tablet 1,000 mg, 1,000 mg, Oral, Q8H morphine (PF) injection 2 mg, 2 mg, Intravenous, Q2H PRN OR morphine (PF) injection 4 mg, 4 mg,Intravenous, Q2H PRN polyethylene glycol (GLYCOLAX) packet 17 g, 17 g, Oral, Daily sennosides-docusate sodium (SENOKOT-S) 8.6-50 MG tablet 2 tablet, 2 tablet, Oral, Nightly ondansetron (ZOFRAN) injection 4 mg, 4 mg, Intravenous, Q8H PRN chlorhexidine (PERIDEX) 0.12 % solution 15 mL, 15 mL, Mouth/Throat, BID mupirocin (BACTROBAN) 2 % ointment, , Nasal, BID potassium chloride (KLOR-CON M) extended release tablet 20 mEq, 20 mEq, Oral, PRN atorvastatin (LIPITOR) tablet 80 mg, 80 mg, Oral, Nightly aspirin EC tablet 81 mg, 81 mg, Oral, Daily 0.9 % sodium chloride bolus, 250 mL, Intravenous, PRN phenylephrine (SCOOTER-SYNEPHRINE) 50 mg in dextrose 5 % 250 mL infusion, 0.5 mcg/kg/min, Intravenous, Continuous PRN insulin regular (MYXREDLIN) 100 units in sodium chloride 0.9 % 100 ml infusion, 1 Units/hr, Intravenous, Continuous glucose (GLUTOSE) 40 % oral gel 15 g, 15 g, Oral, PRN dextrose 50 % IV solution, 12.5 g, Intravenous, PRN glucagon (rDNA) injection 1 mg, 1 mg, Intramuscular, PRN dextrose 5 % solution, 100 mL/hr, Intravenous, PRN insulin regular (HUMULIN R;NOVOLIN R) injection 4 Units, 4 Units, Intravenous, PRN oxyCODONE (ROXICODONE) immediate release tablet 5 mg, 5 mg, Oral, Q4H PRN OR oxyCODONE (ROXICODONE) immediate release tablet 10 mg, 10 mg, Oral, Q4H PRN nitroprusside (NIPRIDE) 50 mg in NS 100mL infusion, 0.1 mcg/kg/min, Intravenous, Continuous gabapentin (NEURONTIN) capsule 400 mg, 400 mg, Oral, TID Subjective: Review of Systems Constitutional: Positive for activity change, appetite change and fatigue. Negative for chills, diaphoresis, fever and unexpected weight change. Respiratory: Negative for cough and shortness of breath. Cardiovascular: Negative for chest pain, palpitations and leg swelling. Gastrointestinal: Negative for diarrhea, nausea and vomiting. Objective: HgbA1C: No results for input(s): LABA1C in the last 72 hours. BMP: Recent Labs 05/08/20 2201 05/09/20 0335 05/10/20 0526 NA 137 136 131* K 4.4 4.4 4.3 CL 106 104 100 CO2 22 22 22 BUN 15 17 18 CREATININE 0.88 1.04 0.88 GLUCOSE 82 84 189* Glucose: Recent Labs 05/09/20 0800 05/09/20 0907 05/09/20 1011 05/09/20 1143 05/09/20 1251 05/09/20 1720 05/09/20 1834 05/09/202004 POCGLU 84 99 181* 142* 144* 278* 264* 250* Physical VITALS: BP (!) 123/46 Pulse 89 Temp 97.7 F (36.5 C) (Oral) Resp 20 Ht 5' 8 (1.727 m) Wt 220 lb (99.8 kg) SpO2 97% BMI 33.45 kg/m Physical Exam Constitutional: Appearance: Normal appearance. He is obese. Comments: Pleasant adult male answering questions appropriatly HENT: Head: Normocephalic and atraumatic. Right Ear: External ear normal. Left Ear: External ear normal. Nose: Nose normal. Mouth/Throat: Mouth: Mucous membranes are moist. Cardiovascular: Rate and Rhythm: Normal rate and regular rhythm. Pulses: Normal pulses. Pulmonary: Effort: Pulmonary effort is normal. No respiratory distress. Abdominal: General: Bowel sounds are normal. Palpations: Abdomen is soft. Musculoskeletal: Normal range of motion. Skin: General: Skin is warm and dry. Neurological: General: No focal deficit present. Mental Status: He is alert and oriented to person, place, and time. DATA Impression: I reviewed: [x] laboratory results []radiographic results At the time of today's encounter. Pt was advised of the results. ASSESSMENT: DM 2 controlled retirement use of insulin Stress hyperglycemia Intractable back pain S/P CABG x1 S/P aortic valve replacement PLAN: The inpt antihyperglycemic regimen will be as follows: Increase lantus to 12 units daily humalog 09/30/ IInpt GMF glucose goal 150. Inpt ICU glucose goal 180. Outpt goal A1C = 6.5. Insulin is necessary for ongoing mgmt. FSBS to occur qAC/HS/PRN for s/s of hyper-/hypoglycemia. FSBS data will be used to determine the next steps in antihyperglycemic medication titration duringhospital stay. If hypoglycemia were to occur it should be treated per hospital protocol. Diet recommendation: carb controlled If the pt is to be discharged from the hospital I recommend: Check blood sugar 4 times a day before meals and bedtime Recommended Scripts for DC-- TBD Glucose test strips 4x per day # 120 per month Lancets 4x per day # 120 per month Glucometer 1 device #1 Follow Up Testing-- Check blood sugar 4 times a day before meals and bedtime Outpt Follow Up Endo Visit (if needed) Timeframe-- Follow up with PCP at [facility] who has been managing his blood sugars Appointment request sent to office Endo office Staff: No Please page the on-call Regional Director Of Admissions if there are questions regarding Endocrine DC recommendations. If there are any questions or concerns related to the info in this note please page the eight section blower contact center consultant directly. On-Call information can be found in the [facility] Online Directory. We appreciate the opportunity to participate in this pt's ongoing medical care I spent 25 minutes with the pt which involved more than 51% of the timein coordination of care, medical evaluation, review of records, and/or counseling of the pt regarding her condition/disease state/prognosis on the date of this note. Electronically signed by: ARIADNE Butler CNP 05/10/20 8:14 AM * Migue Gregorio APRN - CNS - 05/10/2020 6:25 AM EDT Cardiothoracic Surgery Progress Note 05/10/2020 Subjective: Admit Date: 05/08/2020 Interval History: S/P AVR, CABGx1 on 05/08/20 POD#2- No issues overnight. Subjective: Just back in room after ambulating in hallway. States doing okay, no BM yet passing flatus. Objective: Vitals: Temp (24hrs), Av F (36.7 C), Min:97.7 F (36.5 C), Max:98.2 F (36.8 C) BP (!) 123/46 Pulse 89 Temp 97.7 F (36.5 C) (Oral) Resp 20 Ht 5' 8 (1.727 m) Wt 220 lb (99.8 kg) SpO2 97% BMI 33.45 kg/m I/O: Date 05/10/20 0000 - 05/10/20 2359 Shift 5447-1409 6724-5243 0089-3490 24 Hour Total INTAKE Shift Total(mL/kg) OUTPUT Urine(mL/kg/hr) 115 115 Chest Tube 70 70 Shift Total(mL/kg) 185(1.9) 185(1.9) Weight (kg) 99.8 99.8 99.8 99.8 Weights: Patient Vitals for the past 96 hrs (Last 3 readings): Weight 05/08/20 0556 220 lb (99.8 kg) Labs: BMP: Recent Labs 05/08/20220005/09/20 0335 05/10/20 0526 NA 137 136 131* K 4.4 4.4 4.3 CL 106 104 100 CO2 22 22 22 BUN 15 17 18 CREATININE 0.88 1.04 0.88 GLUCOSE 82 84 189* . CBC: Recent Labs 05/08/20220005/09/20 0335 05/10/20 0526 WBC 6.1 7.5 7.3 RBC 2.78* 2.55* 2.42* HGB 8.6* 8.0* 7.7* HCT 24.7* 22.7* 21.8* MCV 88.8 88.9 89.9 MCH 30.9 31.3 31.8 MCHC 34.8 35.2 35.4 RDW 13.2 13.2 13.1 PLT 103* 98* 75* MPV 7.8 7.9 8.2 Hepatic: No results for input(s): AST, ALT, ALB, BILITOT, ALKPHOS in the last 72 hours. INR: Lab Results Component Value Date PROTIME 12.1 05/08/2020 INR 1.1 05/08/2020 Films: CXR portable: Reviewed Physical Exam: Physical Exam Constitutional: General: He is not in acute distress. Appearance: He is well-developed. He is obese. He is not diaphoretic. HENT: Head: Normocephalic and atraumatic. Nose: Nose normal. Mouth/Throat: Mouth: Mucous membranes are moist. Eyes: Pupils: Pupils are equal, round, and reactive to light. Neck: Musculoskeletal: Normal range of motion and neck supple. Vascular: No JVD. Cardiovascular: Rate and Rhythm: Normal rate and regular rhythm. Heart sounds: Normal heart sounds. No murmur. No friction rub. No gallop. Pulmonary: Effort: Pulmonary effort is normal. No respiratory distress. Breath sounds: Normal breath sounds. No stridor. Comments: Diminished with left pleural rub heard posteriorly Abdominal: General: Bowel sounds are normal. There is distension (obese). Palpations: Abdomen is soft. Tenderness: There is no abdominal tenderness. Musculoskeletal: Normal range of motion. General: No tenderness. Skin: General: Skin is warm and dry. Comments: Sternotomy incision intact with no signs of infection. Epicardial wires capped. Chest tubes to waterseal draining serosang drainage. No air leaks. Guzman to SD with clear jorje urine Neurological: Mental Status: He is alert and oriented to person, place, and time. Psychiatric: Mood and Affect: Mood normal. Behavior: Behavior normal. Thought Content: Thought content normal. Judgment: Judgment normal. Medications: Scheduled Meds: celecoxib 100 mg Oral BID pantoprazole 40 mg Oral QAM AC insulin lispro 0-6 Units Subcutaneous TID WC sodium chloride flush 10 mL Intravenous 2 times per day acetaminophen 1,000 mg Oral Q8H polyethylene glycol 17 g Oral Daily sennosides-docusate sodium 2 tablet Oral Nightly chlorhexidine 15 mL Mouth/Throat BID mupirocin Nasal BID atorvastatin 80 mg Oral Nightly aspirin 81 mg Oral Daily gabapentin 400 mg Oral TID Continuous Infusions: sodium chloride sodium chloride 20 mL/hr at 05/09/20 0830 phenylephrine (SCOOTER-SYNEPHRINE) 50mg/250mL infusion Stopped (05/09/20 1253) insulin Stopped (05/09/20 1253) dextrose nitroprusside sodium-NaCl Stopped (05/08/20 1730) Home Meds: Prior to Admission medications Medication Sig Start Date End Date Taking? Authorizing Provider traMADol (ULTRAM) 50 MG tablet Take 50 mg by mouth every 6 hours as needed for Pain. Yes HistoricalProviderMD insulin detemir (LEVEMIR) 100 UNIT/ML injection vial Inject 28 Units into the skin nightly Yes Historical Provider, Multiple Vitamins-Minerals (THERAPEUTIC MULTIVITAMIN-MINERALS) tablet Take 1 tablet by mouth daily Yes Historical Provider, vitamin C (ASCORBIC ACID) 500 MG tablet Take 500 mg by mouth daily Yes Historical Provider, aspirin 81 MG EC tablet Take 81 mg by mouth daily Yes Historical Provider, atorvastatin (LIPITOR) 20 MG tablet Take 20 mg by mouth daily Yes Historical Provider, metoprolol succinate (TOPROL XL) 50 MG extended release tablet Take 50 mg by mouth daily Yes Historical Provider, tamsulosin (FLOMAX) 0.4 MG capsule Take 0.4 mg by mouth daily Yes Historical Provider, metFORMIN (GLUCOPHAGE) 1000 MG tablet Take 1,000 mg by mouth 2 times daily (with meals) Yes Historical Provider, celecoxib (CELEBREX) 200 MG capsule Take 200 mg by mouth 2 times daily Yes Historical Provider, gabapentin (NEURONTIN) 400 MG capsule Take 400 mg by mouth 3 times daily. Yes Historical Provider, hydroxychloroquine (PLAQUENIL) 200 MG tablet Take by mouth daily Yes Historical Provider, lisinopril (PRINIVIL;ZESTRIL) 20 MG tablet Take 20 mg by mouth daily Yes Historical Provider, mupirocin (BACTROBAN NASAL) 2 % nasal ointment Apply liberal amount on a q-tip and place in each nostril the night before surgery and then again the morning of surgery 04/22/20 Velasquez Savage APRN -CLIENT SERVICES MANAGER Dulaglutide 1.5 MG/0.5ML SOPN Inject 1.5 mg into the skin once a week Mondays Historical Provider, Diet: DIET CARDIAC; Carb Control: 4 carb choices (60 gms)/meal Dietary Nutrition Supplements: Low Calorie High Protein Supplement Problem List: Active Problems: Aortic stenosis, severe Uncontrolled type 2 diabetes mellitus with complication (HCC) S/P CABG x 1 S/P AVR Resolved Problems: * No resolved hospital problems. * Assessment and Plan: 1. /CAD: Status post SAVR 23mm [place] Trifecta bioprosthesis, CABG X 1: SVG to PDA of RCA, EVH, Left thigh on 05/08/20 -EF 60% on Echo 03/18/20-see media -Core Medication: [x]ASA [x]BB added today [x] Statin [] ACEi/ARB EF>40% -Anticoagulation: Coumadin 5 mg x1 today per Dr. Burkett with [facility] consulted for tomorrow for tissue AVR Goal INR 2-3 for 3 months. Daily INR's -Invasive Lines:Central Line: Day #2 -Guzman: Day# 2 -Hx BPH will add home flomax. 2. Post op Pulm. Mgmt/hxOSA: (Normal post op course) on 2L NC-97%. CXR: Reviewed by Dr. Burkett who is covering for Dr. Killian for the weekend during rounds today. Lasix IV 40 mg BID scheduled added today. Continue C&DB, Enc use of IS. Maintain chest tubes to waterseal today. 3. Hypotension: SBP stable 120-130's. Off scooter since yesterday morning. Low dose BB added today withparameters 4. Blood loss Anemia: Hgb:7.7 Stable. No s/s bleeding. Continue to monitor CBC 5. Consumptive Thrombocytopenia: Platelets:75 No s/s bleeding. Continue to monitor labs 6. DM/Stress Hyperglycemia: A1C Insulin per endocrine 7. Acute post op pain/hxArthritis: On scheduled tylenol, lidocaine patch and oxycodone IR prn with relief. On home celebrex 8. GI/DVT prophylaxis: PPI/SCD/Teds sq lovenox- will need discontinued after INR elevates 9. Disposition: Continue progressive care in [facility] Blood Conservation Initiative Log: - 05/08 Platelets, FFP, 2 RPBC * Colin Ramirez, PT - 05/09/2020 3:52 PM EDT Physical Therapy Facility/Department: [facility] Initial Assessment NAME: Ascencion Weir : 1950 Date of Service: 05/09/2020 Discharge Recommendations: Continue to assess pending progress(goal is home; rehab possible if goals not met) PT Equipment Recommendations Equipment Needed: No Assessment Body structures, Functions, Activity limitations: Decreased functional mobility ;Decreased ROM;Decreased strength;Decreased posture;Increased pain;Decreased endurance Assessment: Good effort, but pt is significantly limited by L hip pain/ weakness. 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 Sit to stand with good technique, but max of 1. Goal is home, but may need to consider rehab-level PT if goals not achieved. Prognosis: Good Decision Making: Medium Complexity PT Education: Goals;PT Role;Plan of Care;Precautions;Disease Specific Education Patient Education: functional sequelae of sternal precautions REQUIRES PT FOLLOW UP: Yes Activity Tolerance Activity Tolerance: Patient limited by endurance;Treatment limited secondary to medical complications (free text);Patient limited by fatigue;Patient limited by pain Patient Diagnosis(es): There were no encounter diagnoses. has a past medical history of Arthritis, Benign prostatic hyperplasia, CAD (coronary artery disease), Chronic back pain, CPAP (continuous positive airway pressure) dependence, Diabetes mellitus (HCC), Hyperlipidemia, Hypertension, Nonrheumatic aortic (valve) stenosis, Obesity, and Sleep apnea. has a past surgical history that includes joint replacement; Total knee arthroplasty; and Hand surgery. Restrictions Restrictions/Precautions Restrictions/Precautions: Weight Bearing, Fall Risk, General Precautions, Surgical Protocols Required Braces or Orthoses?: No Upper Extremity Weight Bearing Restrictions Other: sternal precautions Position Activity Restriction Sternal Precautions: No Pushing, No Pulling, 10# Lifting Restrictions Vision/Hearing Vision: Within Functional Limits Hearing: Within functional limits Subjective General Chart Reviewed: Yes Patient assessed for rehabilitation services?: Yes Family / Caregiver Present: No Diagnosis: CABGx1, AVR Follows Commands: Within Functional Limits General Comment Comments: chest tube x2, Guzman, radial art line, IV infuser, telemetry, BiPAP Subjective Subjective: Rn notes he came off of pressors earlier today and is sitting in chest. Pt endorses significant sternal pain (lower 1/2). Notes he was supposed to have L ANNAMARIE but this was discovered in work up Pain Screening Patient Currently in Pain: Yes Pain Assessment Pain Assessment: 0-10 Pain Level: 8 Pain Type: Acute pain;Surgical pain Pain Location: Sternum Pain Orientation: (lower half) Vital Signs Patient Currently in Pain: Yes Orientation Orientation Overall Orientation Status: Within Functional Limits Social/Functional History Social/Functional History Lives With: Spouse Type of Home: House Home Layout: Two level, Able to Live on Main level with bedroom/bathroom Home Access: Stairs to enter with rails Entrance Stairs - Number of Steps: 3 Entrance Stairs - Rails: Both Bathroom Shower/Tub: Tub/Shower unit Bathroom Toilet: Standard Bathroom Equipment: Grab bars in shower, Tub transfer bench Bathroom Accessibility: Accessible Home Equipment: (na) Receives Help From: Family ADL Assistance: Independent Homemaking Assistance: Independent Homemaking Responsibilities: Yes Ambulation Assistance: Independent Transfer Assistance: Independent 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 Dtr drives. Pt notes has bad back, so she'slimited carrying things, etc. Pt loves to mow lawn. 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 Cognition Overall Cognitive Status: [facility] Objective Observation/Palpation Observation: spirometry 500 cc, cough fair AROM RLE (degrees) RLE AROM: WFL AROM LLE (degrees) LLE General AROM: good SLR to approx 30 deg, With heel slide to approx 70, pt with 10-15 deg of E/R, ankles WFL AROM RUE (degrees) RUE General AROM: shldr flex to 90 due to active infuser AROM LUE (degrees) LUE General AROM: shldr flex 160, good scapular ROM Strength Other Other: hip extn isometrics L fair, R fair+; knee extn L 5/5, R 4/5 (h/o TKA), ankles 5/5 Motor Control Gross Motor?: WFL Sensation Overall Sensation Status: WF Bed mobility Comment: pt in chair--per pt, significant amount of help required for torso elevation (pt does sleep in flat bed at home) Transfers Sit to Stand: Maximum Assistance Stand to sit: Moderate Assistance Comment: pt with excellent forward flexion, but with pain and strength deficits in L hip, does makeachieving full hip extn difficult. Pt with significant back pain in extn. Ambulation Ambulation?: No(limited due to art line positioning.) Balance Sitting - Static: Fair;+ Sitting - Dynamic: Fair Standing - Static: Fair Standing - Dynamic: Poor;+ Plan Plan Times per week: 5-6 Plan weeks: 2 Current Treatment Recommendations: Strengthening, ROM, Balance Training, Functional Mobility Training, Stair training, Gait Training, Transfer Training, Endurance Training, Home Exercise Program Plan Comment: strengthening for LEs only Safety Devices Type of devices: Left in chair, Call light within reach AM-PAC Score [facility] Inpatient Mobility Raw Score : 7 (05/09/201539) [facility] Inpatient T-Scale Score : 26.42 (05/09/201539) Mobility Inpatient CMS 0-100% Score: 92.36 (05/09/201539) Mobility Inpatient CMS G-Code Modifier : CM (05/09/201539) Goals Short term goals Time Frame for Short term goals: 2 weeks Short term goal 1: Bed mobility min of 1 Short term goal 2: Sit to stand supv Short term goal 3: Amb 250' or 5 minutes RPE 14 or lower from endurance perspective Short term goal 4: Indep managing secretions and modified home walking program (will minimize distance) Short term goal 5: Indep P&C ex Short term goal 6: 3 stairs, rail for balance, min of 1 Patient Goals Patient goals : get my hip fixed, so I can mow my lawn Therapy Time Individual Concurrent Group Co-treatment Time In 1513 Time Out 1538 Minutes 25 Patient s Physical Therapy Plan of Care supervision is transferred to [facility] Rehab Department Physical Therapist. PT wore N95 mask, goggles, and gloves throughout entire session with patient. Colin Ramirez PT * Ruthann Sanderson RD, LD - 05/09/2020 10:47 AM EDT Comprehensive Nutrition Assessment Type and Reason for Visit: Initial, Consult Nutrition Recommendations/Plan: 1. Continue Cardiac, CHO Control diet as ordered. Monitor need to liberalize diet if po intake is poor 2. Per MNT protocol, will order Ensure HP BID to promote po intake and post- surgical recovery (160kcal, 16g protein, 8oz each) 3. Heart Healthy diet handout was left at bedside for pt to review independently. RD will return prior to discharge to provide verbal education as desired 4. RD will continue to monitor and follow up weekly Nutrition Assessment: PMH of aortic stenosis, progressive shortness of breath. Other PMH includes HTN, DM2, BPH, LIAN. Pt is s/p CABG x 1 and AVR 05/08. Extubated with diet ordered. Recieving nursing care at time of RD visit. RD left heart healthy diet handout with RD contact number at pt's bedside Malnutrition Assessment: Malnutrition Status: Insufficient data Context: Acute Illness Findings of the 6 clinical characteristics of malnutrition: Energy Intake: Unable to assess Weight Loss: No significant weight loss Body Fat Loss: No significant body fat loss Muscle Mass Loss: No significant muscle mass loss Estimated Daily Nutrient Needs: Energy (kcal): 7813-5018; Weight Used for Energy Requirements: [place] Protein (g): 84-98; Weight Used for Protein Requirements: [place](1.2-1.4g/kg) Fluid (ml/day): Per MD; Weight Used for Fluid Requirements: (N/A) Nutrition Related Findings: -I/O. No edema. Hypoactive bowel sounds. Brant=16. Labs and meds reviewed. Wounds: Surgical Wound Current Nutrition Therapies: DIET CARDIAC; Carb Control: 4 carb choices (60 gms)/meal Anthropometric Measures: Height: 5' 8 (172.7 cm) Current Body Weight: 220 lb 0.3 oz (99.8 kg) Usual Body Weight: 222 lb (100.7 kg)(209# on 05/01/20, 222# on 04/22/20) [place] Body Weight: 154 lbs; % [place] Body Weight 142.9 % BMI: 33.5 BMI Categories: Obese Class 1 (BMI 30.0-34.9) Nutrition Diagnosis: Increased nutrient needs related to increase demand for energy/nutrients as evidenced by wounds Nutrition Interventions: Food and/or Nutrient Delivery: Continue Current Diet, Start Oral Nutrition Supplement Nutrition Education/Counseling: Education needed, Education initiated Coordination of Nutrition Care: Continued Inpatient Monitoring Goals: Pt will consume >75% estimated energy and protein needs daily Nutrition Monitoring and Evaluation: Behavioral-Environmental Outcomes: Knowledge or Skill Food/Nutrient Intake Outcomes: Diet Advancement/Tolerance, Food and Nutrient Intake, Supplement Intake Physical Signs/Symptoms Outcomes: Biochemical Data, Nausea or Vomiting, GI Status, Weight, Skin Discharge Planning: Too soon to determine Contact: pager [phone] * J Luis Kaleigh Evy, CONSOLE ATTENDANT - CLIENT SERVICES MANAGER - 05/09/2020 9:51 AM EDT Department of Internal Medicine Section of Endocrinology Nurse Practitioner Progress Note CHIEF COMPLAINT: CHIEF COMPLAINT: The patient is a 69 y.o. male who presents with PMH of aortic stenosis, progressive shortness of breath. Other PMH includes HTN, DM2, BPH, LIAN. Pt is s/p CABG x 1 and AVR. Currently pt is sedated, intubated in the ICU. SUBJECTIVE: Admit date: 05/08/2020 Original Endocrine Consult date: 05/08/2020 OutPt Regional Director Of Admissions: none Lab Results Component Value Date LABA1C 5.7 05/01/2020 Lab Results Component Value Date EAG 117 05/01/2020 Lab Results Component Value Date CREATININE 1.04 05/09/2020 Pre-Admission Home DM regimen: trulicity 1.5mg weekly levmir Since last inpatient Endocrine encounter patient reports: Extubated Laying in bed c/o not being able to rest or sleep States that he was able to eat some breakfast Current Insulin regimen: Lantus 0 Humalog 0 0 Insulin gtt DC'd on: still infusing Inpt glucocorticoid use: [] YES [x] NO Glucose and Insulin Review: Per COLLEEN Hypoglycemia Event(s) in the past 24 hrs: [] Yes [x] No Other notes in EMR reviewed: [x]YES, [] NO Tolerating PO intake: [x] Yes [] No PO intake: More than at home []; Same as at home []; Less than at home [x] carb controlled cardiac No Known Allergies Past Medical History: Diagnosis Date Arthritis Benign prostatic hyperplasia CAD (coronary artery disease) Chronic back pain CPAP (continuous positive airway pressure) dependence Diabetes mellitus (HCC) Hyperlipidemia Hypertension Nonrheumatic aortic (valve) stenosis Obesity Sleep apnea Past Surgical History: Procedure Laterality Date HAND SURGERY surgery for MRSA JOINT REPLACEMENT TOTAL KNEE ARTHROPLASTY Family History Problem Relation Age of Onset Heart Attack Mother Heart Attack Father Social History Tobacco Use Smoking status: Former Smoker Packs/day: 1.50 Years: 25.00 Pack years: 37.50 Last attempt to quit: 1989 Years since quittin.7 Smokeless tobacco: Former User Types: Snuff Substance Use Topics Alcohol use: Never Frequency: Never Current Inpatient Medications Current Facility-Administered Medications: phenylephrine (VAZCULEP) 10 MG/ML injection, , , celecoxib (CELEBREX) capsule 100 mg, 100 mg, Oral, BID [START ON 05/10/2020] pantoprazole (PROTONIX) tablet 40 mg, 40 mg, Oral, QAM AC 0.9 % sodium chloride infusion, , Intravenous, Continuous 0.45 % sodium chloride infusion, , Intravenous, Continuous sodium chloride flush 0.9 % injection 10 mL, 10 mL, Intravenous, 2 times per day sodium chloride flush 0.9 % injection 10 mL, 10 mL, Intravenous, PRN potassium chloride 20 mEq/50 mL IVPB (Central Line), 20 mEq, Intravenous, PRN magnesium sulfate 2 g in 50 mL IVPB premix, 2 g, Intravenous, PRN calcium gluconate 2 g in dextrose 5 % 100 mL IVPB, 2 g, Intravenous, PRN ceFAZolin (ANCEF) 2 g in dextrose 4 % 100 mL IVPB (premix), 2 g, Intravenous, Q8H acetaminophen (TYLENOL) tablet 1,000 mg, 1,000 mg, Oral, Q8H morphine (PF) injection 2 mg, 2 mg, Intravenous, Q2H PRN OR morphine (PF) injection 4 mg, 4 mg,Intravenous, Q2H PRN polyethylene glycol (GLYCOLAX) packet 17 g, 17 g, Oral, Daily sennosides-docusate sodium (SENOKOT-S) 8.6-50 MG tablet 2 tablet, 2 tablet, Oral, Nightly ondansetron (ZOFRAN) injection 4 mg, 4 mg, Intravenous, Q8H PRN chlorhexidine (PERIDEX) 0.12 % solution 15 mL, 15 mL, Mouth/Throat, BID mupirocin (BACTROBAN) 2 % ointment, , Nasal, BID potassium chloride (KLOR-CON M) extended release tablet 20 mEq, 20 mEq, Oral, PRN propofol injection, 10 mcg/kg/min, Intravenous, Continuous atorvastatin (LIPITOR) tablet 80 mg, 80 mg, Oral, Nightly aspirin EC tablet 81 mg, 81 mg, Oral, Daily 0.9 % sodium chloride bolus, 250 mL, Intravenous, PRN phenylephrine (SCOOTER-SYNEPHRINE) 50 mg in dextrose 5 % 250 mL infusion, 0.5 mcg/kg/min, Intravenous, Continuous PRN insulin regular (MYXREDLIN) 100 units in sodium chloride 0.9 % 100 ml infusion, 1 Units/hr, Intravenous, Continuous glucose (GLUTOSE) 40 % oral gel 15 g, 15 g, Oral, PRN dextrose 50 % IV solution, 12.5 g, Intravenous, PRN glucagon (rDNA) injection 1 mg, 1 mg, Intramuscular, PRN dextrose 5 % solution, 100 mL/hr, Intravenous, PRN insulin regular (HUMULIN R;NOVOLIN R) injection 4 Units, 4 Units, Intravenous, PRN oxyCODONE (ROXICODONE) immediate release tablet 5 mg, 5 mg, Oral, Q4H PRN OR oxyCODONE (ROXICODONE) immediate release tablet 10 mg, 10 mg, Oral, Q4H PRN nitroprusside (NIPRIDE) 50 mg in NS 100mL infusion, 0.1 mcg/kg/min, Intravenous, Continuous gabapentin (NEURONTIN) capsule 400 mg, 400 mg, Oral, TID Subjective: Review of Systems Constitutional: Positive for activity change, appetite change and fatigue. Negative for chills, diaphoresis, fever and unexpected weight change. Respiratory: Positive for cough and shortness of breath. Cardiovascular: Negative for chest pain, palpitations and leg swelling. Gastrointestinal: Negative for diarrhea, nausea and vomiting. Objective: HgbA1C: No results for input(s): LABA1C in the last 72 hours. BMP: Recent Labs 05/08/20 1101 05/08/20 2201 05/09/20 0335 NA 137 137 136 K 3.8 4.4 4.4 CL 107 106 104 CO2 22 22 22 BUN 14 15 17 CREATININE 0.76 0.88 1.04 GLUCOSE 148* 82 84 Glucose: Recent Labs 05/09/20 0042 05/09/20 0124 05/09/20 0232 05/09/20 0342 05/09/20 0445 05/09/20 0602 05/09/20 0800 05/09/20 0907 POCGLU 61* 84 95 95 96 91 84 99 Physical VITALS: BP 126/61 Pulse 80 Temp 98.2 F (36.8 C) (Oral) Resp 23 Ht 5' 8 (1.727 m) Wt 220 lb (99.8 kg) SpO2 96% BMI 33.45 kg/m Physical Exam Constitutional: Appearance: Normal appearance. He is obese. Comments: Pleasant adult male answering questions appropriatly HENT: Head: Normocephalic and atraumatic. Right Ear: External ear normal. Left Ear: External ear normal. Nose: Nose normal. Mouth/Throat: Mouth: Mucous membranes are moist. Cardiovascular: Rate and Rhythm: Normal rate and regular rhythm. Pulses: Normal pulses. Pulmonary: Effort: Pulmonary effort is normal. No respiratory distress. Abdominal: General: Bowel sounds are normal. Palpations: Abdomen is soft. Musculoskeletal: Normal range of motion. Skin: General: Skin is warm and dry. Neurological: General: No focal deficit present. Mental Status: He is alert and oriented to person, place, and time. DATA Impression: I reviewed: [x] laboratory results []radiographic results At the time of today's encounter. Pt was advised of the results. ASSESSMENT: DM 2 controlled intermediate manager use of insulin Stress hyperglycemia Intractable back pain S/P CABG x1 S/P aortic valve replacement PLAN: The inpt antihyperglycemic regimen will be as follows: Discontinue insulin drip 60 minutes after lantus 10 units stat Initiate low dose sliding scale poct glucose ac/hs IInpt GMF glucose goal 150. Inpt ICU glucose goal 180. Outpt goal A1C = 6.5. Insulin is necessary for ongoing mgmt. FSBS to occur qAC/HS/PRN for s/s of hyper-/hypoglycemia. FSBS data will be used to determine the next steps in antihyperglycemic medication titration duringhospital stay. If hypoglycemia were to occur it should be treated per hospital protocol. Diet recommendation: carb controlled If the pt is to be discharged from the hospital I recommend: Check blood sugar 4 times a day before meals and bedtime Recommended Scripts for DC-- TBD Glucose test strips 4x per day # 120 per month Lancets 4x per day # 120 per month Glucometer 1 device #1 Follow Up Testing-- Check blood sugar 4 times a day before meals and bedtime Outpt Follow Up Endo Visit (if needed) Timeframe-- Follow up with PCP at [facility] who has been managing his blood sugars Appointment request sent to office Endo office Staff: No Please page the on-call Regional Director Of Admissions if there are questions regarding Endocrine DC recommendations. If there are any questions or concerns related to the info in this note please page the eight section blower contact center consultant directly. On-Call information can be found in the [facility] Online Directory. We appreciate the opportunity to participate in this pt's ongoing medical care I spent 25 minutes with the pt which involved more than 51% of the timein coordination of care, medical evaluation, review of records, and/or counseling of the pt regarding her condition/disease state/prognosis on the date of this note. Electronically signed by: ARIADNE Butler CNP 05/09/20 9:51 AM * Ascencion Rodriguez MD - 05/09/2020 7:05 AM EDT Critical Care Progress Note 05/09/2020 7:05 AM Subjective: Admit Date: 05/08/2020 PCP: Aaron Solorzano Chief Complaint: aortic stenosis, progressive shortness of breath No chief complaint on file. Interval History: S/p SAVR and CABG x 1 CXR 05/09: IMPRESSION: Overall stable appearance of the chest status post extubation. Review of Systems Respiratory: Negative for shortness of breath. Gastrointestinal: Negative for abdominal pain, nausea and vomiting. Diet: Diet NPO Effective Now Exceptions are: Other (See Comment) Medications: Scheduled Meds: phenylephrine albumin human 50 g Intravenous Once celecoxib 100 mg Oral BID sodium chloride flush 10 mL Intravenous 2 times per day ceFAZolin (ANCEF) IVPB 2 g Intravenous Q8H acetaminophen 1,000 mg Oral Q8H polyethylene glycol 17 g Oral Daily sennosides-docusate sodium 2 tablet Oral Nightly pantoprazole 40 mg Intravenous Daily And sodium chloride (PF) 10 mL Intravenous Daily chlorhexidine 15 mL Mouth/Throat BID mupirocin Nasal BID atorvastatin 80 mg Oral Nightly aspirin 81 mg Oral Daily gabapentin 400 mg Oral TID Continuous Infusions: sodium chloride sodium chloride 20 mL/hr at 05/08/20 1345 propofol Stopped (05/08/20 1645) phenylephrine (SCOOTER-SYNEPHRINE) 50mg/250mL infusion 0.5 mcg/kg/min (05/09/20 0154) insulin 1.5 Units/hr (05/09/20 0232) dextrose nitroprusside sodium-NaCl Stopped (05/08/20 1730) CBC: Recent Labs 05/08/20110005/08/20220005/09/20 0335 WBC 5.6 6.1 7.5 HGB 8.3* 8.6* 8.0* HCT 23.8* 24.7* 22.7* PLT 81* 103* 98* BMP: Recent Labs 05/08/20110005/08/20220005/09/20334 NA 137 137 136 K 3.8 4.4 4.4 CL 107 106 104 CO2 22 22 22 BUN 14 15 17 CREATININE 0.76 0.88 1.04 GLUCOSE 148* 82 84 CALCIUM 11.5* 9.5 9.1 IONCA 6.20* -- -- MG 3.5* -- 2.1 PHOS 3.2 -- -- Ionized Calcium: Lab Results Component Value Date IONCA 6.20 05/08/2020 HEPATIC: No results for input(s): AST, ALT, ALB, BILITOT, ALKPHOS in the last 72 hours. LACTATE: No results for input(s): LACTA in the last 72 hours. PROCALCITONIN: No results for input(s): PROCAL in the last 72 hours. CORTISOL: No results for input(s): CORTISOL in the last 72 hours. TSH: No results for input(s): TSH in the last 72 hours. TROPONIN: No results for input(s): TROPONINI in the last 72 hours. BNP: No results for input(s): BNP in the last 72 hours. INR: Recent Labs 05/08/20 11005/08/202200 INR 1.5* 1.1 BLOOD GAS: Recent Labs 05/08/201100 PHART 7.383 [id number] 41.1 PO2ART 393.5* [id number] 23.9 Z2EBPNCT 99.3 Objective: Vitals: Temp (24hrs), Av.3 F (36.3 C), Min:97.3 F (36.3 C), Max:97.3 F (36.3 C) BP (!) 120/52 Pulse 76 Temp 97.3 F (36.3 C) (Core) Resp 17 Ht 5' 8 (1.727 m) Wt 220 lb (99.8 kg) SpO2 98% BMI 33.45 kg/m I/O: Date 05/08/20700 - 05/09/2069905/09/20700 - 05/10/20 07 Shift 3621-0477 7636-0283 1461-1955 24 Hour Total 2903-7973 8372-1552 7028-8455 24 Hour Total INTAKE I.V. 781 781 NG/GT 150 150 Shift Total 931 931 OUTPUT Urine 670 335 886 6963 Chest Tube 160 180 172 512 Shift Total 830 [place] [id number] 81 -149 -1127 Ventilator Settings: Vent Mode: Tube Compensation Rate Set: 12 bmp Vt Ordered: 500 mL Pressure Support: 0 cmH20 PEEP/CPAP: 5 FiO2 : 50 % PHYSICAL EXAM: General Appearance: [x]WDWN []Obese []Cachectic []Thin []ill Skin: Temperature [x]Warm []Cool Rash []Yes [x]No Tattoo(s) []Yes []No HEENT: Pupils round and react [x]Yes []No Sclera []Icteric [x]Non-Icteric Conjunctiva []Injected [x]Non-Injected Pinnae []Normal []Other Dentitian [][place] Teeth []Dentures []edentulous Oral Mucosa [x][place] [x]Moist []Dry Oral ETT []Present [x]Absent Neck: Trachea midline [x]Yes []No Thyromegaly []Yes [x]No Crepitus []Present [x]Absent Jvd []Present [x]Absent Lungs: [x]Clear anteriorly []Crackles []Wheezes [][place] Respiratory effort []Labored [x]Non-Labored Heart: Rate [x]Regular []Irregular []Tachycardia []Bradycardia Rhythm [x]Regular []Irregular Murmur []Present [x]Absent Peripheral Edema []Present [x]Absent Abdomen: [x]Soft Bowel Sounds []Present []Absent []Tender [x]Non-Tender []Distended [x]Non-distended Hernia [x]Present--umbilical []Absent Organomegaly []Present [x]Absent []unable to assess 2/2 body habitus []Scar Extremities: Cyanosis []Present [x]Absent RANDALL ([x]RUE [x]RLE [x]LUE [x]LLE) Neurologic: [place] []Yes [x]No Corneal reflexes [x]Present []Absent Plantar reflexes []Up []Down []Absent Withdraws to tactile [x]Yes []No Follows Commands [x]Yes []No []Unresponsive to verbal [x]Cranial nerves grossly intact [x]Sensation grossly intact Psych: Alert [x]yes []no Oriented []x0 []x1 []x2 [x]x3 Affect [x]Normal []Flat []Agitated []Anxious [x]Calm []Sedated []NAD Assessment and Plan: CAD, Aortic stenosis 05/08 s/p CABG x 1 and AVR Post op vent management, LIAN Anemia, thrombocytopenia, post op blood loss HTN, DM2 Doing well from resp standpoint On phenylephrine drip, managed by primary Continuing to be available as needed from ICU Cont ASA, Statin GI prophylaxis--protonix DVT prophylaxis--scds Nutrition--po See orders. * Velasquez Savage APRN - CLIENT SERVICES MANAGER - 05/09/2020 5:56 AM EDT Cardiothoracic Surgery Progress Note PATIENT NAME: Ascencion Weir : 1950 (69 y.o.) TODAY'S DATE: 05/09/2020 Interval History:POD#1 05-08-2020 1. CABG X 1: SVG to PDA of RCA 2. EVH left thigh 3. SAVR 23mm [employer] bioprosthesis 4. Intraop ZAINAB Pt doing well overnight, on room air, scooter gtt at .4, C&DB, no complaints, CTx3 - RIJ with swan - given 1 liter overnight with albumin - negative 1liter since surgery. HGB at 8, CXR clear Last recorded/verified vitals in [facility] Temp: 97.3 F (36.3 C) Pulse: 76 BP: (!) 120/52 Resp: 20 SpO2: 98 % Recent Labs 05/08/20 1101 05/08/20 2201 05/09/20 0335 WBC 5.6 6.1 7.5 HGB 8.3* 8.6* 8.0* PLT 81* 103* 98* INR 1.5* 1.1 -- NA 137 137 136 K 3.8 4.4 4.4 CREATININE 0.76 0.88 1.04 CXR Lines swan, RIJ, CTx3, guzman, pacewire Drips neosyneph at .4 I&O - [address] output - 92ml Home meds - insulin, asa, lipitor, toprol, metformin, celebrex, neurontin,lisinopril, [x] Current Medications, pmHx, Allergies, and sHx reviewed and updated as appropriate Review of Systems Physical Exam Vitals signs reviewed. Constitutional: General: He is not in acute distress. Appearance: Normal appearance. He is well-developed. He is not diaphoretic. HENT: Head: Normocephalic and atraumatic. Mouth/Throat: Pharynx: No oropharyngeal exudate. Eyes: General: No scleral icterus. Right eye: No discharge. Left eye: No discharge. Pupils: Pupils are equal, round, and reactive to light. Neck: Musculoskeletal: Normal range of motion. Thyroid: No thyromegaly. Vascular: No JVD. Cardiovascular: Rate and Rhythm: Normal rate and regular rhythm. Chest Wall: PMI is not displaced. Pulses: Normal pulses. Heart sounds: Normal heart sounds. No murmur. No gallop. Pulmonary: Effort: No accessory muscle usage or respiratory distress. Breath sounds: Normal breath sounds. No wheezing or rales. Abdominal: General: Bowel sounds are normal. There is no distension or abdominal bruit. Palpations: Abdomen is soft. There is no shifting dullness or hepatomegaly. Tenderness: There is no abdominal tenderness. Musculoskeletal: Normal range of motion. General: No deformity. Skin: General: Skin is warm and dry. Findings: No rash. Neurological: Mental Status: He is alert and oriented to person, place, and time. Cranial Nerves: No cranial nerve deficit. Sensory: No sensory deficit. Psychiatric: Thought Content: Thought content normal. Assessment/Plan Patient Active Problem List Diagnosis Code Coronary atherosclerosis of [place] coronary artery I25.10 Aortic valve stenosis I35.0 Aortic stenosis, severe I35.0 Uncontrolled type 2 diabetes mellitus with complication (HCC) E11.8, E11.65 CAD / AVS / DM II Give him volume and albumin then DC swanZAHRA in chair, pain control Continue care per orders: start asa and statin today Cardiac Core Medications: ASA and Statin Blood Conservation: None noted in postoperatively period. DVT prophylaxis: TEDs and SCDs Post Operative Pulmonary Management Normal Post-Operative Course CCM:consulted-managing Maintain SpO2 > 90% Currently on room air Stress hyperglycemia Insulin per endo Disclaimer ? INFORMED CONSENT:The nature and purpose of the proposed treatment or procedure have been discussed. The risks and benefits of the proposed treatment or procedures have been reviewed. Alternatives have been reviewed in addition to the risks and benefits of not receiving treatments or undergoing procedures. Pursuant to this discussion, the patient agrees to undergo the proposed treatment or procedure. ? Captured images seen in this note from are not a substitute for a comprehensive interpretation ofthe entire data set as reflected by the interpreting physician with regard to radiology, echocardiography, and other diagnostic images. ? This note may have been dictated using [employer] Edition 2.6 and/or [employer] Voice Recognition Feature. The document was proofread, however unrecognized voice recognition hr administrator errors may be present. * Ascencion Rodriguez MD - 05/08/2020 5:12 PM EDT Pt extubated. No stridor, no resp distress. Ongoing ICU care * Gloria Estevez RCP - 05/08/2020 4:02 PM EDT [facility] Respiratory Care Department Progress Note Spontaneous Breathing Trial (SBT) Start: 2-3 min to Stabilize After 15 min After 30 min HR 72 76 SpO2 (%) 100 100 RR 20 22 VT (L) 395 517 Total RSBI (RR/VT in Liters) 50 42 Pass SBT (RSBI must be?105 to pass) NA NA Yes Comments (state reason if SBT failed): Started pt on TC trial Additional data if requested: NIF = -19 VC = Name of physician results were reported to: Dr. Sanchez Time results reported to physician: 1647 Thank you for involving Respiratory in the care of this patient, * Ban Martinez OT - 05/08/2020 1:12 PM EDT Occupational Therapy OT hold note OT eval and treat order received. Pt S/P CABG and AVR today. Pt currently intubated and sedated post surgery. Will hold OT eval at this time and re- attempt once medically ready. Ban Martinez OTR/L documented in this encounter* Anuel Patel MD - 06/02/2020 12:31 PM EDT [facility] [address] [place] [address] Dept: [phone] Loc: [phone] Visit Date: 06/02/2020 HPI: Ascencion Weir is a 69 y.o. male who presents today for: No chief complaint on file. HPI: Chief complaint: cp reason for consult: dm The patient feels better He is looking forward to possibly going home Denies chest pain Denies nausea Denies vomiting Denies abdominal pain Past Medical History: Diagnosis Date Arthritis Benign prostatic hyperplasia CAD (coronary artery disease) Chronic back pain CPAP (continuous positive airway pressure) dependence Diabetes mellitus (HCC) Hyperlipidemia Hypertension Nonrheumatic aortic (valve) stenosis Obesity Sleep apnea Past Surgical History: Procedure Laterality Date AORTIC VALVE REPLACEMENT 05/08/[address] [place] bioprothesis CORONARY ARTERY BYPASS GRAFT 05/08/2020 x1 HAND SURGERY surgery for MRSA JOINT REPLACEMENT TOTAL KNEE ARTHROPLASTY Current Facility-Administered Medications Medication Dose Route Frequency Provider Last Rate Last Dose vancomycin (VANCOCIN) 1,500 mg in dextrose 5 % 250 mL IVPB 1,500 mg Intravenous Q12H Ban Bryan MD Stopped at 06/02/20 0252 insulin glargine (LANTUS) injection vial 10 Units 10 Units Subcutaneous Daily Anuel Patel MD 10 Units at 06/02/20 0851 aspirin EC tablet 325 mg 325 mg Oral Daily Aug ARIADNE Gregorio 325 mg at 06/02/20 0840 ibuprofen (ADVIL;MOTRIN) tablet 400 mg 400 mg Oral TID AC Jean Claude Killian MD 400 mg at 06/02/20 1022 insulin lispro (HUMALOG) injection vial 0-6 Units 0-6 Units Subcutaneous TID WC ARIADNE Swift 4 Units at 06/02/20 1227 insulin lispro (HUMALOG) injection vial 0-3 Units 0-3 Units Subcutaneous Nightly Migue ARIADNE Gregorio 2 Units at 06/01/20 2145 glucose (GLUTOSE) 40 % oral gel 15 g 15 g Oral PRN Jean Claude Killian MD dextrose 50 % IV solution 12.5 g Intravenous PRN Jean Claude Killian MD glucagon (rDNA) injection 1 mg 1 mg Intramuscular PRN Jean Claude Killian MD dextrose 5 % solution 100 mL/hr Intravenous PRN Jean Claude Killian MD amiodarone (CORDARONE) tablet 200 mg 200 mg Oral Daily Velasquez Savgae APRN - CLIENT SERVICES MANAGER 200 mg at 06/02/2040 atorvastatin (LIPITOR) tablet 80 mg 80 mg Oral Nightly Velasquez Savage APRN - CLIENT SERVICES MANAGER 80 mg at 06/01/20 2117 gabapentin (NEURONTIN) capsule 400 mg 400 mg Oral TID Velasquez Savage APRN - CLIENT SERVICES MANAGER 400 mg at 06/02/20 0840 metoprolol tartrate (LOPRESSOR) tablet 25 mg 25 mg Oral BID Aug ARIADNE Gregorio 25 mg at 06/02/200840 pantoprazole (PROTONIX) tablet 40 mg 40 mg Oral QAM Velasquez Savage APRN - CLIENT SERVICES MANAGER 40 mg at 06/02/20 0840 tamsulosin (FLOMAX) capsule 0.4 mg 0.4 mg Oral Daily Velasquez Savage APRN - CLIENT SERVICES MANAGER 0.4 mg at sodium chloride flush 0.9 % injection 10 mL 10 mL Intravenous 2 times per day Velasquez Savage CONSOLE ATTENDANT- CLIENT SERVICES MANAGER 10 mL at 06/02/20 0854 sodium chloride flush 0.9 % injection 10 mL 10 mL Intravenous PRN Velasquez Savage CONSOLE ATTENDANT - CLIENT SERVICES MANAGER acetaminophen (TYLENOL) tablet 650 mg 650 mg Oral Q6H PRN Velasquez Savage CONSOLE ATTENDANT - CLIENT SERVICES MANAGER 650 mg at 06/01/202116 Or acetaminophen (TYLENOL) suppository 650 mg 650 mg Rectal Q6H PRN Velasquez Savage CONSOLE ATTENDANT - CLIENT SERVICES MANAGER polyethylene glycol (GLYCOLAX) packet 17 g 17 g Oral Daily PRN Velasquez Savage APRN - CLIENT SERVICES MANAGER promethazine (PHENERGAN) tablet 12.5 mg 12.5 mg Oral Q6H PRN Velasquez Savage CONSOLE ATTENDANT - CLIENT SERVICES MANAGER Or ondansetron (ZOFRAN) injection 4 mg 4 mg Intravenous Q6H PRN Velasquez Savage CONSOLE ATTENDANT - CLIENT SERVICES MANAGER oxyCODONE-acetaminophen (PERCOCET) 5-325 MG per tablet 1 tablet 1 tablet Oral Q6H PRN Velasquez Savage CONSOLE ATTENDANT - CLIENT SERVICES MANAGER 1 tablet at 06/02/20 0840 lidocaine 4 % external patch 2 patch 2 patch Transdermal Daily Velasquez Savage CONSOLE ATTENDANT - CLIENT SERVICES MANAGER 2 patch at 06/02/20 0840 magnesium sulfate 4 g in 100 mL IVPB premix 4 g Intravenous PRN Velasquez Savage CONSOLE ATTENDANT - CLIENT SERVICES MANAGER heparin (porcine) injection 5,000 Units 5,000 Units Subcutaneous BID Velasquez Savage CONSOLE ATTENDANT - CLIENT SERVICES MANAGER 5,000 Units at 06/02/20 0840 piperacillin-tazobactam (ZOSYN) 4.5 g in dextrose 100 mL IVPB extended infusion (premix) 4.5 g Intravenous Q6H Velasquez Savage CONSOLE ATTENDANT - CLIENT SERVICES MANAGER 33.3 mL/hr at 06/02/20 0924 4.5 g at 06/02/20 0924 colchicine (COLCRYS) tablet 0.6 mg 0.6 mg Oral BID Velasquez Savage CONSOLE ATTENDANT - CLIENT SERVICES MANAGER 0.6 mg at 06/02/20 0842 melatonin ER tablet 2 mg 2 mg Oral Nightly PRN Jean Claude Killian MD 2 mg at 06/01/202116 Allergies Allergen Reactions Pseudoephedrine-Guaifenesin Other (See Comments) Patient states he does not have any allergies Family History Problem Relation Age of Onset Heart Attack Mother Heart Attack Father Social History Tobacco Use Smoking status: Former Smoker Packs/day: 1.50 Years: 25.00 Pack years: 37.50 Last attempt to quit: 1989 Years since quittin.7 Smokeless tobacco: Former User Types: Snuff Substance Use Topics Alcohol use: Never Frequency: Never Subjective: Review of Systems Constitutional: Positive for fatigue. Respiratory: Negative for shortness of breath and wheezing. Gastrointestinal: Negative for nausea and vomiting. Objective: BP 94/73 Pulse 87 Temp 98.2 F (36.8 C) (Oral) Resp 20 Ht 5' 8 (1.727 m) Wt 217 lb 13 oz (98.8 kg) SpO2 100% BMI 33.12 kg/m Physical Exam Constitutional: Appearance: Normal appearance. Cardiovascular: Rate and Rhythm: Normal rate and regular rhythm. Pulmonary: Effort: Pulmonary effort is normal. No respiratory distress. Breath sounds: Normal breath sounds. No stridor. No wheezing. Neurological: Mental Status: He is alert. Diagnostic Workup: See below Assessment: Results for ASCENCION WEIR ( ) as of 06/02/2020 12:31 Ref. Range 06/02/2020 03:00 Sodium Latest Ref Range: 135 - 145 mmol/L 136 Potassium Latest Ref Range: 3.5 - 5.1 mmol/L 4.1 Chloride Latest Ref Range: 98 - 107 mmol/L 101 CO2 Latest Ref Range: 22 - 30 mmol/L 25 BUN Latest Ref Range: 7 - 20 mg/dL 15 Creatinine Latest Ref Range: 0.52 - 1.25 mg/dL 1.01 Anion Gap Latest Units: NA 9 eGFR Latest Ref Range: >60 mL/min 85.9 EGFR IF NonAfrican Thai Latest Ref Range: >60 mL/min 74.1 Magnesium Latest Ref Range: 1.6 - 2.3 mg/dL 2.0 Glucose Latest Ref Range: 70 - 100 mg/dL 186 (H) Results for ASCENCION WEIR ( ) as of 06/02/2020 12:31 Ref. Range 05/31/2020 05:53 Hemoglobin A1C Latest Ref Range: 4.0 - 6.0 % 5.3 Type 2 diabetes status post coronary artery bypass and grafting 05/08/2020 Blood glucose elevation Medications prescribed for diabetes prior to admission: Metformin 1000 mg twice daily Trulicity 1.5 mg once daily Levemir insulin 28 units nightly (the patient reports taking a different dose 14) Plan: Explained all of recommendations below to patient/care team, reviewed all of labs above with them as well: Discussed with patient sources of variability in blood glucose levels Discussed with patient detection, monitoring, management, and prevention of hypoglycemia Discussed with patient inpatient guidelines and goals for diabetes treatment Discussed with patient challenges of inpatient care of diabetes Discussed with patient diet modification and approach to diabetes management Discussed with patient illness and elevation of blood glucose levels, etiology and approach If the patient is discharged today would recommend metformin 1000 mg twice daily, trulicity 1.5 milligrams daily, and Levemir 14 units nightly as he was previously taking. Time spent with patient 30 minutes with more than 51% of that time in direct face to face counseling as documented in note. I have reviewed previous notes, referral note, andprevious workup. No follow-ups on file. Anuel Patel MD * Velasquez Savage, CONSOLE ATTENDANT - CLIENT SERVICES MANAGER - 06/02/2020 6:19 AM EDT Cardiothoracic Surgery Progress Note PATIENT NAME: Ascencion Weir : 1950 (69 y.o.) TODAY'S DATE: 06/02/2020 Interval History: S/P AVR, CABG x1 on 05/08/20 by readmit on 05/30/20 as transfer from [place] ED after presenting there with dyspnea, chest pain, fever with CT chest revealing abscess; echo 05/30 revealed pericardial effusion-no hemodynamic compromise 06/01- no issues overnight - today check ESR CRP - Limited US - consider DC home in stable condition- WIll need to check with ID if home ATBX therapy is indicated- for follow up recs - our plan wouldbe track ESR and CRP levels in 6 weeks TX with motrin and colchicine then repeat echo in 6 weeks I&O -[id number] Last recorded/verified vitals in [facility] Temp: 96.8 F (36 C) Pulse: 80 BP: (!) 134/56 Resp: 23 SpO2: 98 % Recent Labs 05/30/20 1015 05/31/20 0553 06/01/20 0440 06/02/20 0253 06/02/20 0300 WBC -- 10.3 8.8 6.0 -- HGB -- 10.9* 10.4* 10.2* -- PLT -- 162 146 185 -- INR 1.5* 1.3* -- -- -- NA -- 133* 131* -- 136 K -- 4.5 4.1 -- 4.1 CREATININE -- 1.10 1.04 -- 1.01 CXR [x] Current Medications, pmHx, Allergies, and sHx reviewed and updated as appropriate Review of Systems Constitutional: Negative for chills, diaphoresis and fever. HENT: Negative for nosebleeds. Eyes: Negative for visual disturbance. Respiratory: Negative for cough, shortness of breath and wheezing. Cardiovascular: Negative for chest pain, palpitations and leg swelling. Gastrointestinal: Negative for abdominal pain, blood in stool, constipation, diarrhea, nausea and vomiting. Genitourinary: Negative for hematuria. Musculoskeletal: Negative for myalgias. Skin: Negative for rash. Neurological: Negative for dizziness and syncope. Hematological: Does not bruise/bleed easily. Psychiatric/Behavioral: Negative for dysphoric mood and suicidal ideas. Denies Depression Physical Exam Vitals signs reviewed. Constitutional: General: He is not in acute distress. Appearance: Normal appearance. He is well-developed. He is not diaphoretic. HENT: Head: Normocephalic and atraumatic. Mouth/Throat: Pharynx: No oropharyngeal exudate. Eyes: General: No scleral icterus. Right eye: No discharge. Left eye: No discharge. Pupils: Pupils are equal, round, and reactive to light. Neck: Musculoskeletal: Normal range of motion. Thyroid: No thyromegaly. Vascular: No JVD. Cardiovascular: Rate and Rhythm: Normal rate and regular rhythm. Chest Wall: PMI is not displaced. Pulses: Normal pulses. Heart sounds: Normal heart sounds. No murmur. No gallop. Pulmonary: Effort: No accessory muscle usage or respiratory distress. Breath sounds: Normal breath sounds. No wheezing or rales. Abdominal: General: Bowel sounds are normal. There is no distension or abdominal bruit. Palpations: Abdomen is soft. There is no shifting dullness or hepatomegaly. Tenderness: There is no abdominal tenderness. Musculoskeletal: Normal range of motion. General: No deformity. Skin: General: Skin is warm and dry. Findings: No rash. Neurological: Mental Status: He is alert and oriented to person, place, and time. Cranial Nerves: No cranial nerve deficit. Sensory: No sensory deficit. Psychiatric: Thought Content: Thought content normal. Assessment/Plan Patient Active Problem List Diagnosis Code Coronary atherosclerosis of [place] coronary artery I25.10 Aortic valve stenosis I35.0 Aortic stenosis, severe I35.0 Uncontrolled type 2 diabetes mellitus with complication ([facility]) E11.8, E11.65 S/P CABG x 1 Z95.1 S/P AVR Z95.2 Sleep apnea G47.30 Benign prostatic hyperplasia N40.0 Hyperlipidemia E78.5 Chronic back pain M54.9, G89.29 Hypertension I10 Arthritis M19.90 Postoperative anemia due to acute blood loss D62 Thrombocytopenia ([facility]) D69.6 Postoperative atrial fibrillation ([facility]) I97.89, I48.91 Abscess L02.91 Acute pericarditis I30.9 1. Pericarditis/pericardial effusion: Echo 05/30 revealed medium pericardial effusion, no hemodynamic compromise. Elevated Sed rate, CRP. On zosy, vanc. On colchicine, scheduled Ibuprofen and ASA to 325 mg. Blood culture one set + staph poss contaminant , WBC 8.8 & afebrile, ID following. - Will discuss with consultants if appropriate for OP therapy ATBX - Repeat CT - Repeat echo in 6 weeks 2. CAD/: recent AVR/CABGx1 back on 05/08/20: Continue ASA, BB, Statin. Sternal precautions, ambulate in purvis, IS 3. DM: A1C 5.3 On SSI and Lantus, Endocrine following. 4. HxOSA: on RA- 96%, Uses CPAP at HS 5. 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 Voiding. 6. HxP-Afib: Remains on amiodarone 200 mg po daily On metoprolol tartrate 25 mg BID 7. Hypomagnesemia: Stable 8. Acute post op pain:On scheduled lidocaine patch, prn percocet 9. GI/DVT prophylaxis: PPI/SCD/Teds sq heparin Check with ID about DC - -will need repeat CRP and ESR at 6 weeks and repeat echo - consider repeatCT chest at that point Disclaimer ? INFORMED CONSENT:The nature and purpose of the proposed treatment or procedure have been discussed. The risks and benefits of the proposed treatment or procedures have been reviewed. Alternatives have been reviewed in addition to the risks and benefits of not receiving treatments or undergoing procedures. Pursuant to this discussion, the patient agrees to undergo the proposed treatment or procedure. ? Captured images seen in this note from are not a substitute for a comprehensive interpretation ofthe entire data set as reflected by the interpreting physician with regard to radiology, echocardiography, and other diagnostic images. ? This note may have been dictated using [employer] Practice Edition 2.6 and/or [employer] Voice Recognition Feature. The document was proofread, however unrecognized voice recognition hr administrator errors may be present. * Ban Bryan MD - 05/31/2020 12:00 PM EDT [facility] - Infectious Diseases Attending Progress Note Reason for follow up: mediastinitis and abscess Subjective: Remains in ICU. Overall states he is very improved no more fever or chills. Still having some pleuritic pain when he inhales. Antimicrobials: Vancomycin 05/30- Zosyn 05/30- Objective: Vitals: Patient Vitals for the past 24 hrs: BP Temp Temp src Pulse Resp SpO2 Weight 06/01/20 1100 96/84 75 19 98 % 06/01/20 1000 121/61 72 23 96 % 06/01/20 0908 (!) 115/57 79 06/01/20 0900 (!) 115/57 80 26 95 % 06/01/20 0800 (!) 89/50 98.3 F (36.8 C) Oral 76 21 94 % 06/01/20 0730 74 20 98 % 06/01/20 0700 125/64 79 19 97 % 218 lb 4.1 oz (99 kg) 06/01/20 0630 73 (!) 0 97 % 06/01/20 0600 (!) 103/31 73 11 98 % 06/01/20 0530 74 98 % 06/01/20 0517 (!) 99/42 72 20 99 % 06/01/20 0500 73 (!) 6 97 % 06/01/20 0430 77 23 96 % 06/01/20 0400 (!) 105/46 98.1 F (36.7 C) 76 21 96 % 06/01/20 0330 76 22 95 % 06/01/20 0300 (!) 95/46 73 97 % 06/01/20 0230 72 95 % 06/01/20 0200 119/63 73 19 97 % 06/01/20 0130 74 17 97 % 06/01/20 0100 106/61 73 (!) 0 97 % 06/01/20 0030 76 21 99 % 06/01/20 0000 (!) 88/39 97.9 F (36.6 C) 73 11 99 % 05/31/20 2330 73 21 98 % 05/31/20 2300 (!) 95/43 73 20 98 % 05/31/20 2230 73 9 96 % 05/31/20 2201 (!) 81/45 75 20 96 % 05/31/20 2200 (!) 77/44 74 11 97 % 05/31/20 2130 79 20 98 % 05/31/20 2100 118/60 81 20 96 % 05/31/20 2030 87 17 100 % 05/31/202018 (!) 111/56 85 05/31/202002 (!) 111/56 83 21 98 % 05/31/20 2000 97.8 F (36.6 C) 84 20 96 % 05/31/20 1930 84 25 05/31/20 1901 (!) 150/91 86 21 05/31/20 1900 86 19 05/31/20 1800 92/76 83 19 98 % 05/31/20 1700 (!) 90/48 82 26 05/31/20 1640 96/64 98.5 F (36.9 C) Oral 81 26 97 % 05/31/20 1600 84 18 98 % 05/31/20 1500 (!) 92/55 81 24 96 % 05/31/20 1400 115/69 83 19 99 % 05/31/20 1300 (!) 117/55 82 23 95 % 05/31/20 1200 (!) 108/54 98.3 F (36.8 C) Oral 81 18 95 % Physical Exam Vitals signs reviewed. Constitutional: General: He is not in acute distress. Appearance: Normal appearance. He is not ill-appearing or toxic-appearing. HENT: Head: Normocephalic and atraumatic. Nose: Nose normal. Mouth/Throat: Mouth: Mucous membranes are dry. Pharynx: Oropharynx is clear. Eyes: Extraocular Movements: Extraocular movements intact. Conjunctiva/sclera: Conjunctivae normal. Pupils: Pupils are equal, round, and reactive to light. Neck: Musculoskeletal: Neck supple. Cardiovascular: Rate and Rhythm: Normal rate and regular rhythm. Pulses: Normal pulses. Heart sounds: Normal heart sounds. Comments: Midline sternotomy site with some erythema at left superior aspect of incision, no drainage Pulmonary: Effort: Pulmonary effort is normal. Breath sounds: Normal breath sounds. Abdominal: General: There is no distension. Palpations: Abdomen is soft. Tenderness: There is no abdominal tenderness. Musculoskeletal: Normal range of motion. General: No swelling. Skin: General: Skin is warm and dry. Findings: No rash. Neurological: General: No focal deficit present. Mental Status: He is alert and oriented to person, place, and time. Mental status is at baseline. Cranial Nerves: No cranial nerve deficit. Psychiatric: Mood and Affect: Mood normal. Behavior: Behavior normal. Thought Content: Thought content normal. Judgment: Judgment normal. Labs: Component Value Date/Time NA 131 (L) 06/01/2020 0440 K 4.1 06/01/2020 0440 CL 98 06/01/2020 0440 CO2 26 06/01/2020 0440 BUN 19 06/01/2020 044 CREATININE 1.04 06/01/2020 0440 GLUCOSE 175 (H) 06/01/2020 0440 CALCIUM 8.3 (L) 06/01/2020 0440 PROT 7.2 05/30/2020 0320 LABALBU 4.0 05/30/2020 0320 BILITOT 0.6 05/30/2020 0320 ALKPHOS 132 (H) 05/30/2020 0320 AST 26 05/30/2020 0320 ALT 17 05/30/2020 0320 Component Value Date/Time WBC 8.8 06/01/2020 0440 WBC 5.4 04/15/2020 HGB 10.4 (L) 06/01/2020 0440 HCT 30.6 (L) 06/01/2020 0440 PLT 146 06/01/2020 0440 GRANULOCYTES 62.7 05/31/2020 0553 LYMPHOPCT 15.3 (L) 05/31/2020 0553 MONOPCT 9 06/01/2020 0440 MONOPCT 11.9 04/15/2020 LABEOS 26 (H) 06/01/2020 0440 BASOPCT 1 06/01/2020 0440 BASOPCT 0.7 04/15/2020 NEUTROABS 4.0 06/01/2020 0440 NEUTROABS 3.0 04/15/2020 Micro: Bcx 05/30 in process Imaging: TTE 05/30: 1. Left ventricle: The cavity size is normal. Wall thickness is normal. Systolic function is normalby visual assessment. The estimated ejection fraction is 60%. 2. Aortic valve: A [address] [place] trifecta bioprosthesis valve is well seated and normally functioning. The peak systolic velocity is 2.1 m/sec. The mean systolic gradient is 10 mm Hg. Dimensionless index: 0.6. The valve area by the velocity-time integral method is 2.4 cm^2. 3. Pericardium, extracardiac: A medium pericardial effusion (max dimension at the anterolateral wall ~1.5 cm) is present along the left ventricular free wall and at the apex. The fluid has no internal echoes. There is no evidence of hemodynamic compromise. 4. Inferior vena cava: The vessel is normal. The IVC collapses by greater than 50% with inspiration. Assessment: 69 yo M with DM, HTN, DLD, obesity, CAD a/p 1V CABG (SVG to PDA of RCA) left thigh EVH; SAVR bioprosthesis on 05/08/2020 and discharged on 05/14/2020. Pt presented to an OSH with c/o chest pain, night sweats and fevers that started acutely [address] chest showed a mediastinal abscess. Pt was transferred to [facility] for further treatment. ZAINAB 05/30 showed medium size pericardial effusion without internal echos and no hemodynamic compromise. Problem list: 1) mediastinal abscess vs pericarditis 2) s/p 1V CABG and SAVR on 05/08 3) leukocytosis/low grade fevers/sepsis vs SIRS Plan: - follow up blood cultures - continue vanc, pip tazo - check vanc trough before 4th dose - pt started on pericarditis treatment Patient seen and examined. Plan discussed with patient. ID to continue to follow. Please call/text [phone] with any questions. I spent over 51% total time 25 minutes counseling (or coordinating care) and provided discussion regarding Ban Bryan MD * Migue Gregorio APRN - SALES REPRESENTATIVE ADVERTISING - 05/31/2020 6:47 AM EDT Cardiothoracic Surgery Progress Note 05/31/2020 Subjective: Admit Date: 05/30/2020 Interval History: S/P AVR, CABG x1 on 05/08/20 by then discharged home on 05/14/20 with readmit yesterday 05/30/20 as transfer from [place] ED after presenting there with dyspnea, chest pain,fever with CT chest revealing abscess; echo 05/30 revealed pericardial effusion-no hemodynamic compromise 05/31- No issues overnight, on insulin drip Subjective: Resting in bed. States doesn't have chest pain like he did. Objective: Vitals: Temp (24hrs), Av.3 F (37.4 C), Min:97.9 F (36.6 C), Max:100.3 F (37.9 C) BP (!) 96/47 Pulse 81 Temp 98.2 F (36.8 C) (Axillary) Resp 8 Ht 5' 8 (1.727 m) Wt 217 lb9.5 oz (98.7 kg) SpO2 95% BMI 33.09 kg/m I/O: Date 05/31/20 0000 - 05/31/20 2359 Shift 2828-8856 8683-6615 7048-2647 24 Hour Total INTAKE I.V.(mL/kg/hr) 561 561 Shift Total(mL/kg) 561(5.7) 561(5.7) OUTPUT Urine(mL/kg/hr) 350 350 Shift Total(mL/kg) 350(3.5) 350(3.5) Weight (kg) 98.7 98.7 98.7 98.7 Weights: Patient Vitals for the past 96 hrs (Last 3 readings): Weight 05/30/20 0843 217 lb 9.5 oz (98.7 kg) 05/30/20 0600 217 lb 9.5 oz (98.7 kg) Labs: BMP: Recent Labs 05/30/20 0320 05/31/20 0553 NA 137 133* K 4.6 4.5 CL 99 98 CO2 25 26 BUN 19 19 CREATININE 1.00 1.10 GLUCOSE 232* 126* . CBC: Recent Labs 05/30/20 0320 05/31/20 0553 WBC 10.9* 10.3 RBC 3.84* 3.54* HGB 11.6* 10.9* HCT 34.3* 31.3* MCV 89.3 88.5 MCH 30.3 30.7 MCHC 34.0 34.7 RDW 14.1 14.1 PLT 165 162 MPV 7.7 7.8 Hepatic: Recent Labs 05/30/20 032 AST 26 ALT 17 BILITOT 0.6 ALKPHOS 132* INR: Lab Results Component Value Date PROTIME 13.9 05/31/2020 PROTIME 13.3 05/27/2020 INR 1.3 05/31/2020 Films: CXR portable: Reviewed Physical Exam: Physical Exam Constitutional: General: He is not in acute distress. Appearance: He is well-developed. He is not diaphoretic. HENT: Head: Normocephalic and atraumatic. Nose: Nose normal. Mouth/Throat: Mouth: Mucous membranes are moist. Eyes: Pupils: Pupils are equal, round, and reactive to light. Neck: Musculoskeletal: Normal range of motion and neck supple. Vascular: No JVD. Cardiovascular: Rate and Rhythm: Normal rate and regular rhythm. Heart sounds: Normal heart sounds. No murmur. No friction rub. No gallop. Pulmonary: Effort: Pulmonary effort is normal. No respiratory distress. Breath sounds: Normal breath sounds. No stridor. Abdominal: General: Bowel sounds are normal. There is no distension. Palpations: Abdomen is soft. Tenderness: There is no abdominal tenderness. Musculoskeletal: Normal range of motion. General: No tenderness. Skin: General: Skin is warm and dry. Comments: Sternotomy incision, old chest tube sites and leg incisions intact with no signs of infection Neurological: Mental Status: He is alert and oriented to person, place, and time. Psychiatric: Mood and Affect: Mood normal. Behavior: Behavior normal. Thought Content: Thought content normal. Judgment: Judgment normal. Medications: Scheduled Meds: amiodarone 200 mg Oral Daily aspirin 81 mg Oral Daily atorvastatin 80 mg Oral Nightly gabapentin 400 mg Oral TID metoprolol tartrate 25 mg Oral BID pantoprazole 40 mg Oral QAM AC tamsulosin 0.4 mg Oral Daily sodium chloride flush 10 mL Intravenous 2 times per day lidocaine 2 patch Transdermal Daily vancomycin 1,000 mg Intravenous Q12H heparin (porcine) 5,000 Units Subcutaneous BID piperacillin-tazobactam 4.5 g Intravenous Q6H colchicine 0.6 mg Oral BID Continuous Infusions: dextrose insulin 0.7 Units/hr (05/31/20 0615) dextrose Home Meds: Prior to Admission medications Medication Sig Start Date End Date Taking? Authorizing Provider metoprolol tartrate (LOPRESSOR) 25 MG tablet Take 1 tablet by mouth 2 times daily 05/19/20 ARIADNE Swift sodium chloride (ALTAMIST SPRAY) 0.65 % nasal spray 1 spray by Nasal route as needed for Congestion05/19/20Aug ARIADNE Gregorio amiodarone (CORDARONE) 200 MG tablet Take 1 tablet by mouth daily Take 2 tablets twice a day until 05-18-2020 - Then take 2 tablets daily till 05-25-2020 - then take one tablet daily there after 05/14/20 ARIADNE Camargo CNP atorvastatin (LIPITOR) 80 MG tablet Take 1 tablet by mouth nightly 05/14/20 ARIADNE Camargo CNP lisinopril (PRINIVIL;ZESTRIL) 20 MG tablet Take 0.5 tablets by mouth daily 05/14/20 ARIADNE Camargo CNP pantoprazole (PROTONIX) 40 MG tablet Take 1 tablet by mouth every morning (before breakfast) 05/15/20 ARIADNE Camargo CNP warfarin (COUMADIN) 5 MG tablet Take as directed by [facility] (30 tablets= 30 daysupply) 05/14/20 Doug Rodriguez MD traMADol (ULTRAM) 50 MG tablet Take 50 mg by mouth every 6 hours as needed for Pain. Historical Provider, insulin detemir (LEVEMIR) 100 UNIT/ML injection vial Inject 28 Units into the skin nightly Taking 14 units since 05/25 per self Historical Provider, Multiple Vitamins-Minerals (THERAPEUTIC MULTIVITAMIN-MINERALS) tablet Take 1 tablet by mouth daily Historical Provider, vitamin C (ASCORBIC ACID) 500 MG tablet Take 500 mg by mouth daily Historical Provider, aspirin 81 MG EC tablet Take 81 mg by mouth daily Historical Provider, tamsulosin (FLOMAX) 0.4 MG capsule Take 0.4 mg by mouth daily Historical Provider, metFORMIN (GLUCOPHAGE) 1000 MG tablet Take 1,000 mg by mouth 2 times daily (with meals) Historical Provider, Dulaglutide 1.5 MG/0.5ML SOPN Inject 1.5 mg into the skin once a week Mondays Historical Provider, gabapentin (NEURONTIN) 400 MG capsule Take 400 mg by mouth 3 times daily. Historical Provider, hydroxychloroquine (PLAQUENIL) 200 MG tablet Take by mouth daily Historical Provider, Diet: DIET CARDIAC; Dietary Nutrition Supplements: Low Volume Supplement Problem List: Active Problems: Abscess Resolved Problems: * No resolved hospital problems. * Assessment and Plan: 1. Pericarditis/pericardial effusion: Echo 05/30 revealed medium pericardial effusion, no hemodynamic compromise. Elevated Sed rate, CRP. On zosy, vanc. On colchicine. Added scheduled Ibuprofen and changed ASA to 325 mg 2. CAD/: s/p AVR/CABGx1 back on 05/08/20: Continue ASA, BB, Statin. Sternal precautions, ambulate in [place], -EF 60% on Echo 05/30/20- -Core Medication: [x]ASA [x]BB [x] Statin [] ACEi/ARB -Anticoagulation: Was on coumadin for tissue AVR. Plan to not continue for now- continue ASA 325 mg 3. DM: A1C 5.3 On insulin drip. Discontinue drip after d/w Dr. Killian. SSI added. 4. HxOSA: on RA- 96%, Uses CPAP at HS- 5. 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 Voiding. 6. HxP-Afib: Remains on amiodarone 200 mg po daily from previous post op afib and discharged on taper. Current NSR 70's 7. Hypomagnesemia: Mg 1.2 on yesterday's labs. Will check with nsg. Has replacement protocol order. 8. Acute post op pain:On scheduled lidocaine patch, prn percocet 9. GI/DVT prophylaxis: PPI/SCD/Teds sq heparin 10. Disposition: Continue progressive care in [facility] Associated attestation - Jean Claude Killian MD - 06/01/2020 8:24 AM EDT Patient has shown signs that seemed to be consistent with pericarditis rather than infection. Whiteblood cell count remains normal. We have started colchicine and an nonsteroidal anti-inflammatory drug. We will continue to monitor him closely for infection and continue the empiric antibiotics. I personally performed a face to face diagnostic evaluation on this patient. I agree with the findings and plan of care as documented by the resident/SALES REPRESENTATIVE ADVERTISING/SECURITY VEHICLE PATROL OFFICER/PA, unless otherwise noted. Jean Claude Killian MD * Georgie Christianson, RD, LD - 05/30/2020 12:56 PM EDT Comprehensive Nutrition Assessment Type and Reason for Visit: Initial, Positive Nutrition Screen(Nausea/ Vomiting) Nutrition Recommendations/Plan: 1. Pt advanced to Cardiac diet this afternoon. Continue to monitor adequacy of oral intake & need for diet liberalization if pt consistently consumes <50% at meals. 2. Per MNT protocol, will initiate Ensure HP (low calorie, high protein supplement) BID to supplement intake (160kcal and 16g protein per 8 oz serving). 3. Please record pt's % oral intakes of meals/ONS for continued assessment of nutritional status. 4. RD to monitor pt's % oral intakes of meals, wt's, labs, I/O's. Nutrition Assessment: Pt presented to [place] ED with c/o SOB, CP, night sweats. Pt recently underwent CABGx1 (SVG to PDAof RCA) left thigh EVH; SAVR (23mm [employer] Trifecta bioprosthesis) on 05/08/2020 and was dischargedon 05/14/2020. Noted CT of chest showed abscess, therefore, pt was transferred to [facility] for further evaluation. Pt resting upright in chair, sleeping at time of RD assessment, awakened to stated name. Pt reports suboptimal oral intakes since CABG surgery mid-April, attributing his pain to poor appetite. UBW: 220-225#; CBW: 217# (05/30/20). Pt reports he has not ate anything in the last three days. He was not supplementing with ONS at home, but was agreeable to trial during admit. NKFA. 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 Malnutrition Assessment: Malnutrition Status: Insufficient data Context: Acute Illness Estimated Daily Nutrient Needs: Energy (kcal): 3324-7305; Weight Used for Energy Requirements: [place]((25-28kcals/kg)) Protein (g): 70-84; Weight Used for Protein Requirements: [place](1.0-1.2 g/kg IBW) Fluid (ml/day): Per MD recommendations; Nutrition Related Findings: -I/O (500); +BS; No edema indicated. +Nausea/Vomiting Medications: Lipitor; Vanco; Zosyn; PPI Labs: BGT - 177, 232, 210^; A1c 5.7% (05/01/20); Alk Phos 132^ Wounds: Surgical Wound(Prior surgical incision from recent CABG (05/08/2020); Brant=20) Current Nutrition Therapies: DIET CARDIAC; Anthropometric Measures: Height: 5' 8 (172.7 cm) Current Body Weight: 217 lb (98.4 kg)(05/30/20) Usual Body Weight: 220 lb (99.8 kg)(Per [facility] wt hx) [place] Body Weight: 154 lbs; 140% [place] Body Weight BMI: 33 Adjusted Body Weight: ; No Adjustment BMI Categories: Obese Class 1 (BMI 30.0-34.9) Nutrition Diagnosis: Inadequate oral intake related to altered GI function as evidenced by NPO or clear liquid status due to medical condition Nutrition Interventions: Food and/or Nutrient Delivery: Continue NPO, Start Oral Diet Nutrition Education/Counseling: Education not indicated Coordination of Nutrition Care: Continued Inpatient Monitoring Goals: Pt will receive nutrition within 48 hours if medically feasible. Nutrition Monitoring and Evaluation: Food/Nutrient Intake Outcomes: Food and Nutrient Intake, Diet Advancement/Tolerance Physical Signs/Symptoms Outcomes: Biochemical Data, GI Status, Nausea or Vomiting, Weight, Skin Discharge Planning: Too soon to determine Contact: [phone] documented in this encounter* Juanpablo Buckley - 05/01/2020 10:30 AM EDT Labs obtained on first attempt with 22 gauge needle at R AC site, patient tolerated well, site benign. documented in this encounter Assessments Diagnosis Aortic stenosis, severe Aortic valve disorders Uncontrolled type 2 diabetes mellitus with complication (HCC) Type II or unspecified type diabetes mellitus with unspecified complication, uncontrolled S/P CABG x 1 Postsurgical aortocoronary bypass status S/P AVR Heart valve replaced by other means Coronary atherosclerosis of [place] coronary artery Sleep apnea Unspecified sleep apnea Benign prostatic hyperplasia Unspecified hyperplasia of prostate without urinary obstruction and other lower urinary tract symptoms (LUTS) Hyperlipidemia Other and unspecified hyperlipidemia Chronic back pain Backache, unspecified Hypertension Unspecified essential hypertension Arthritis Arthropathy, unspecified, site unspecified Postoperative anemia due to acute blood loss Acute posthemorrhagic anemia Thrombocytopenia (HCC) Thrombocytopenia, unspecified Postoperative atrial fibrillation (HCC) Cardiac complications Diagnosis Dyspnea on exertion Other dyspnea and respiratory abnormality Diagnosis Other acute pericarditis S/P AVR Heart valve replaced by other means Abscess Cellulitis and abscess of unspecified site Aortic stenosis, severe Aortic valve disorders Coronary atherosclerosis of [place] coronary artery Hyperlipidemia Other and unspecified hyperlipidemia S/P CABG x 1 Postsurgical aortocoronary bypass status DM II (diabetes mellitus, type II), controlled (HCC) Type II or unspecified type diabetes mellitus without mention of complication, not stated as uncontrolled Diagnosis Coronary artery disease involving coronary bypass graft of [place] heart without angina pectoris Pre-op testing Preoperative examination, unspecified Chief Complaint and Reason for Visit Chief Complaint 6 M FU chest pain Reason for Visit HLD (hyperlipidemia) Postoperative atrial fibrillation Atherosclerotic heart disease of [place] coronary artery without angina pectoris Benign essential hypertension History of aortic valve replacement with bioprosthetic valve Chief Complaint LEG Chief Complaint LEG R LEG- PER STACEY-IN ER YESTERDAY TOLD COME IN TODAY Chief Complaint Admit Date 6 M FU November 28, 2024 2:06 pm E ORDERS December 11, 2024 9:1 0am BALANCE. RX HERE December 14, 2024 3:0 0pm Reason for Visit Admit Date Benign essential hypertension November 28, 2024 2:06pm Coronary artery disease November 28, 2024 2:06pm History of aortic valve replacement Apri l 2024 2:06pm History of coronary artery bypass surger y November 28, 2024 2:06pm HLD (hyperlipidemia) November 28, 2024 2:0 6pm Type II diabetes mellitus November 28 2:06pm Varicose veins of bilateral lower extrem ities with pain November 28, 2024 2:06pm Chief Complaint Admit Date 6 M FU November 28, 2024 2:06 pm E ORDERS December 11, 2024 9:1 0am ASHD RAI December 25, 2024 1:4 1pm BALANCE. RX HERE January 01, 2025 2:30pm Chief Complaint Admit Date ASHD, RAI December 25, 2024 1:4 1pm BALANCE. RX HERE January 01, 2025 2:30pm XRAY LUMBAR SPINE January 09, 2025 11:04 am HIGH FEVER, METABOLIC ENCEPHALOPATHY Aug ust 2024 7:38pm Reason for Referral Specialty Diagnoses / Procedures Referred By Contac t Referred To Contact Diagnoses Lumbar degenerative disc disease Aaron Solorzano MD [address] [place] [address] Referral ID Status Reason Start Date Expiration Date Visits Re quested Visits Authorized [id number] Closed 1 1 Specialty Diagnoses / Procedures Referred By Contac t Referred To Contact Gerontology / GERIATRICS Diagnoses Mild cognitive disorder Procedures CONSULT TO GERIATRICS OFFICE/OUTPATIENT [facility] 60 MINUTES Aaron Solorzano MD [address] [place] [address] [facility] [address] [place] [address] Referral ID Status Reason Start Date Expiration Date V isits Requested Visits Authorized [id number] Closed PCP Requested Referral 10/17/2023 10/16/2024 1 1 Specialty Diagnoses / Procedures Referred By Contac t Referred To Contact Diagnoses Controlled type 2 diabetes mellitus with diabetic neuropathy, with long-term current use of insulin ([facility]) Aaron Solorzano MD [address] [place] [address] Referral ID Status Reason Start Date Expiration Date V isits Requested Visits Authorized [id number] Pending Review 1 1 Specialty Diagnoses / Procedures Referred By Contac t Referred To Contact Vascular Medicine Diagnoses Varicose veins of leg with pain, right Procedures CONSULT TO VASCULAR MEDICINE OFFICE/OUTPATIENT [facility] 60-74 MINUTES Daxa Moody APRN.CLIENT SERVICES MANAGER [address] [place] [address] Referral ID Status Reason Start Date Expiration Date Visits Requested Visits Authorized [id number] Authorized PCP Requested Referral 02/17/2023 02/17/2024 1 1 Additional Source Comments (unrecognized sect ion and content) No Status Records FoundNo Status Records FoundNo Status Records FoundNo Status Records FoundNo Status Records FoundNo Status Records FoundNo Status Records Found INFORMATION SOURCE (unrecogn ized section and content) DATE CREATED AUTHOR 02/17/2018 [facility] DATE CREATED AUTHOR AUTHOR'S ORGANIZ ATION 12/07/2018 [facility] DATE CREATED AUTHOR AUTHOR'S ORGANIZ ATION 07/07/2020 [facility] DATE CREATED AUTHOR AUTHOR'S ORGANIZ ATION 11/08/2021 [facility] ([place]) DATE CREATED AUTHOR AUTHOR'S ORGANIZ ATION 04/22/[address] [facility] [place] [facility] DATE CREATED AUTHOR AUTHOR'S ORGANIZ ATION 01/24/2025 [facility] DATE CREATED AUTHOR AUTHOR'S ORGANIZ ATION 04/03/2025 [facility] Source Comments (unrecognize d section and content) In the event this informatio n is protected by the Federal Confidentiality of Alcohol and Drug Abuse Patient Records regulations: The Federal rules restrict any use of the information to criminally investigate or prosecute any alcohol or drug abuse patient.[facility] the event this information is protected by the Federal Confidentiality of Alcohol and Drug Abuse Patient Records regulations: The Federal rules restrict any use of the information to criminally investigate or prosecute any alcohol or drug abuse patient.[facility] the event this information is protected by the Federal Confidentiality of Alcohol and Drug Abuse Patient Records regulations: The Federal rules restrict any use of the information to criminally investigate or prosecute any alcohol or drug abuse patient.[facility] the event this information is protected by the Federal Confidentiality of Alcohol and Drug Abuse Patient Records regulations: The Federal rules restrict any use of the information to criminally investigate or prosecute any alcohol or drug abuse patient.[facility] Hospital[facility] the event this information is protected by the Federal Confidentiality of Alcohol and Drug Abuse Patient Records regulations: The Federal rules restrict any use of the information to criminally investigate or prosecute any alcohol or drug abuse patient.[facility] Hospital[facility] the event this information is protected by the Federal Confidentiality of Alcohol and Drug Abuse Patient Records regulations: The Federal rules restrict any use of the information to criminally investigate or prosecute any alcohol or drug abuse patient.[facility] Hospital[facility] the event this information is protected by the Federal Confidentiality of Alcohol and Drug Abuse Patient Records regulations: The Federal rules restrict any use of the information to criminally investigate or prosecute any alcohol or drug abuse patient.[facility] HospitalIn the event this information is protected by the Federal Confidentiality of Alcohol and Drug Abuse Patient Records regulations: The Federal rules restrict any use of the information to criminally investigate or prosecute any alcohol or drug abuse patient.[facility] Hospital[facility] the event this information is protected by the Federal Confidentiality of Alcohol and Drug Abuse Patient Records regulations: The Federal rules restrict any use of the information to criminally investigate or prosecute any alcohol or drug abuse patient.[facility] Hospital[facility] the event this information is protected by the Federal Confidentiality of Alcohol and Drug Abuse Patient Records regulations: The Federal rules restrict any use of the information to criminally investigate or prosecute any alcohol or drug abuse patient.[facility] HospitalIn the event this information is protected by the Federal Confidentiality of Alcohol and Drug Abuse Patient Records regulations: The Federal rules restrict any use of the information to criminally investigate or prosecute any alcohol or drug abuse patient.[facility] HospitalIn the event this information is protected by the Federal Confidentiality of Alcohol and Drug Abuse Patient Records regulations: The Federal rules restrict any use of the information to criminally investigate or prosecute any alcohol or drug abuse patient.[facility] HospitalIn the event this information is protected by the Federal Confidentiality of Alcohol and Drug Abuse Patient Records regulations: The Federal rules restrict any use of the information to criminally investigate or prosecute any alcohol or drug abuse patient.[facility] HospitalIn the event this information is protected by the Federal Confidentiality of Alcohol and Drug Abuse Patient Records regulations: The Federal rules restrict any use of the information to criminally investigate or prosecute any alcohol or drug abuse patient.[facility] HospitalIn the event this information is protected by the Federal Confidentiality of Alcohol and Drug Abuse Patient Records regulations: The Federal rules restrict any use of the information to criminally investigate or prosecute any alcohol or drug abuse patient.[facility] HospitalIn the event this information is protected by the Federal Confidentiality of Alcohol and Drug Abuse Patient Records regulations: The Federal rules restrict any use of the information to criminally investigate or prosecute any alcohol or drug abuse patient.[facility] HospitalIn the event this information is protected by the Federal Confidentiality of Alcohol and Drug Abuse Patient Records regulations: The Federal rules restrict any use of the information to criminally investigate or prosecute any alcohol or drug abuse patient.[facility] HospitalIn the event this information is protected by the Federal Confidentiality of Alcohol and Drug Abuse Patient Records regulations: The Federal rules restrict any use of the information to criminally investigate or prosecute any alcohol or drug abuse patient.[facility] HospitalIn the event this information is protected by the Federal Confidentiality of Alcohol and Drug Abuse Patient Records regulations: The Federal rules restrict any use of the information to criminally investigate or prosecute any alcohol or drug abuse patient.[facility] HospitalIn the event this information is protected by the Federal Confidentiality of Alcohol and Drug Abuse Patient Records regulations: The Federal rules restrict any use of the information to criminally investigate or prosecute any alcohol or drug abuse patient.[facility] HospitalIn the event this information is protected by the Federal Confidentiality of Alcohol and Drug Abuse Patient Records regulations: The Federal rules restrict any use of the information to criminally investigate or prosecute any alcohol or drug abuse patient.[facility] HospitalIn the event this information is protected by the Federal Confidentiality of Alcohol and Drug Abuse Patient Records regulations: The Federal rules restrict any use of the information to criminally investigate or prosecute any alcohol or drug abuse patient.[facility] HospitalIn the event this information is protected by the Federal Confidentiality of Alcohol and Drug Abuse Patient Records regulations: The Federal rules restrict any use of the information to criminally investigate or prosecute any alcohol or drug abuse patient.[facility] HospitalIn the event this information is protected by the Federal Confidentiality of Alcohol and Drug Abuse Patient Records regulations: The Federal rules restrict any use of the information to criminally investigate or prosecute any alcohol or drug abuse patient.[facility] HospitalIn the event this information is protected by the Federal Confidentiality of Alcohol and Drug Abuse Patient Records regulations: The Federal rules restrict any use of the information to criminally investigate or prosecute any alcohol or drug abuse patient.[facility] HospitalIn the event this information is protected by the Federal Confidentiality of Alcohol and Drug Abuse Patient Records regulations: The Federal rules restrict any use of the information to criminally investigate or prosecute any alcohol or drug abuse patient.[facility] HospitalIn the event this information is protected by the Federal Confidentiality of Alcohol and Drug Abuse Patient Records regulations: The Federal rules restrict any use of the information to criminally investigate or prosecute any alcohol or drug abuse patient.[facility] HospitalIn the event this information is protected by the Federal Confidentiality of Alcohol and Drug Abuse Patient Records regulations: The Federal rules restrict any use of the information to criminally investigate or prosecute any alcohol or drug abuse patient.[facility] HospitalIn the event this information is protected by the Federal Confidentiality of Alcohol and Drug Abuse Patient Records regulations: The Federal rules restrict any use of the information to criminally investigate or prosecute any alcohol or drug abuse patient.[facility] HospitalIn the event this information is protected by the Federal Confidentiality of Alcohol and Drug Abuse Patient Records regulations: The Federal rules restrict any use of the information to criminally investigate or prosecute any alcohol or drug abuse patient.[facility] HospitalIn the event this information is protected by the Federal Confidentiality of Alcohol and Drug Abuse Patient Records regulations: The Federal rules restrict any use of the information to criminally investigate or prosecute any alcohol or drug abuse patient.[facility] HospitalIn the event this information is protected by the Federal Confidentiality of Alcohol and Drug Abuse Patient Records regulations: The Federal rules restrict any use of the information to criminally investigate or prosecute any alcohol or drug abuse patient.[facility] HospitalIn the event this information is protected by the Federal Confidentiality of Alcohol and Drug Abuse Patient Records regulations: The Federal rules restrict any use of the information to criminally investigate or prosecute any alcohol or drug abuse patient.[facility] the event this information is protected by the Federal Confidentiality of Alcohol and Drug Abuse Patient Records regulations: The Federal rules restrict any use of the information to criminally investigate or prosecute any alcohol or drug abuse patient.[facility] HospitalIn the event this information is protected by the Federal Confidentiality of Alcohol and Drug Abuse Patient Records regulations: The Federal rules restrict any use of the information to criminally investigate or prosecute any alcohol or drug abuse patient.[facility] HospitalIn the event this information is protected by the Federal Confidentiality of Alcohol and Drug Abuse Patient Records regulations: The Federal rules restrict any use of the information to criminally investigate or prosecute any alcohol or drug abuse patient.[facility] HospitalIn the event this information is protected by the Federal Confidentiality of Alcohol and Drug Abuse Patient Records regulations: The Federal rules restrict any use of the information to criminally investigate or prosecute any alcohol or drug abuse patient.[facility] HospitalIn the event this information is protected by the Federal Confidentiality of Alcohol and Drug Abuse Patient Records regulations: The Federal rules restrict any use of the information to criminally investigate or prosecute any alcohol or drug abuse patient.[facility] HospitalIn the event this information is protected by the Federal Confidentiality of Alcohol and Drug Abuse Patient Records regulations: The Federal rules restrict any use of the information to criminally investigate or prosecute any alcohol or drug abuse patient.[facility] HospitalIn the event this information is protected by the Federal Confidentiality of Alcohol and Drug Abuse Patient Records regulations: The Federal rules restrict any use of the information to criminally investigate or prosecute any alcohol or drug abuse patient.[facility] HospitalIn the event this information is protected by the Federal Confidentiality of Alcohol and Drug Abuse Patient Records regulations: The Federal rules restrict any use of the information to criminally investigate or prosecute any alcohol or drug abuse patient.[facility] HospitalIn the event this information is protected by the Federal Confidentiality of Alcohol and Drug Abuse Patient Records regulations: The Federal rules restrict any use of the information to criminally investigate or prosecute any alcohol or drug abuse patient.[facility] HospitalIn the event this information is protected by the Federal Confidentiality of Alcohol and Drug Abuse Patient Records regulations: The Federal rules restrict any use of the information to criminally investigate or prosecute any alcohol or drug abuse patient.[facility] HospitalIn the event this information is protected by the Federal Confidentiality of Alcohol and Drug Abuse Patient Records regulations: The Federal rules restrict any use of the information to criminally investigate or prosecute any alcohol or drug abuse patient.[facility] HospitalIn the event this information is protected by the Federal Confidentiality of Alcohol and Drug Abuse Patient Records regulations: The Federal rules restrict any use of the information to criminally investigate or prosecute any alcohol or drug abuse patient.[facility] HospitalIn the event this information is protected by the Federal Confidentiality of Alcohol and Drug Abuse Patient Records regulations: The Federal rules restrict any use of the information to criminally investigate or prosecute any alcohol or drug abuse patient.[facility] HospitalIn the event this information is protected by the Federal Confidentiality of Alcohol and Drug Abuse Patient Records regulations: The Federal rules restrict any use of the information to criminally investigate or prosecute any alcohol or drug abuse patient.[facility] HospitalIn the event this information is protected by the Federal Confidentiality of Alcohol and Drug Abuse Patient Records regulations: The Federal rules restrict any use of the information to criminally investigate or prosecute any alcohol or drug abuse patient.[facility] HospitalIn the event this information is protected by the Federal Confidentiality of Alcohol and Drug Abuse Patient Records regulations: The Federal rules restrict any use of the information to criminally investigate or prosecute any alcohol or drug abuse patient.[facility] HospitalIn the event this information is protected by the Federal Confidentiality of Alcohol and Drug Abuse Patient Records regulations: The Federal rules restrict any use of the information to criminally investigate or prosecute any alcohol or drug abuse patient.[facility] HospitalIn the event this information is protected by the Federal Confidentiality of Alcohol and Drug Abuse Patient Records regulations: The Federal rules restrict any use of the information to criminally investigate or prosecute any alcohol or drug abuse patient.[facility] HospitalIn the event this information is protected by the Federal Confidentiality of Alcohol and Drug Abuse Patient Records regulations: The Federal rules restrict any use of the information to criminally investigate or prosecute any alcohol or drug abuse patient.[facility] HospitalIn the event this information is protected by the Federal Confidentiality of Alcohol and Drug Abuse Patient Records regulations: The Federal rules restrict any use of the information to criminally investigate or prosecute any alcohol or drug abuse patient.[facility] HospitalIn the event this information is protected by the Federal Confidentiality of Alcohol and Drug Abuse Patient Records regulations: The Federal rules restrict any use of the information to criminally investigate or prosecute any alcohol or drug abuse patient.[facility] HospitalIn the event this information is protected by the Federal Confidentiality of Alcohol and Drug Abuse Patient Records regulations: The Federal rules restrict any use of the information to criminally investigate or prosecute any alcohol or drug abuse patient.[facility] HospitalIn the event this information is protected by the Federal Confidentiality of Alcohol and Drug Abuse Patient Records regulations: The Federal rules restrict any use of the information to criminally investigate or prosecute any alcohol or drug abuse patient.[facility] HospitalIn the event this information is protected by the Federal Confidentiality of Alcohol and Drug Abuse Patient Records regulations: The Federal rules restrict any use of the information to criminally investigate or prosecute any alcohol or drug abuse patient.[facility] HospitalIn the event this information is protected by the Federal Confidentiality of Alcohol and Drug Abuse Patient Records regulations: The Federal rules restrict any use of the information to criminally investigate or prosecute any alcohol or drug abuse patient.[facility] HospitalIn the event this information is protected by the Federal Confidentiality of Alcohol and Drug Abuse Patient Records regulations: The Federal rules restrict any use of the information to criminally investigate or prosecute any alcohol or drug abuse patient.[facility] HospitalIn the event this information is protected by the Federal Confidentiality of Alcohol and Drug Abuse Patient Records regulations: The Federal rules restrict any use of the information to criminally investigate or prosecute any alcohol or drug abuse patient.[facility] HospitalIn the event this information is protected by the Federal Confidentiality of Alcohol and Drug Abuse Patient Records regulations: The Federal rules restrict any use of the information to criminally investigate or prosecute any alcohol or drug abuse patient.[facility] HospitalIn the event this information is protected by the Federal Confidentiality of Alcohol and Drug Abuse Patient Records regulations: The Federal rules restrict any use of the information to criminally investigate or prosecute any alcohol or drug abuse patient.[facility] HospitalIn the event this information is protected by the Federal Confidentiality of Alcohol and Drug Abuse Patient Records regulations: The Federal rules restrict any use of the information to criminally investigate or prosecute any alcohol or drug abuse patient.[facility] HospitalIn the event this information is protected by the Federal Confidentiality of Alcohol and Drug Abuse Patient Records regulations: The Federal rules restrict any use of the information to criminally investigate or prosecute any alcohol or drug abuse patient.[facility] HospitalIn the event this information is protected by the Federal Confidentiality of Alcohol and Drug Abuse Patient Records regulations: The Federal rules restrict any use of the information to criminally investigate or prosecute any alcohol or drug abuse patient.[facility] HospitalIn the event this information is protected by the Federal Confidentiality of Alcohol and Drug Abuse Patient Records regulations: The Federal rules restrict any use of the information to criminally investigate or prosecute any alcohol or drug abuse patient.[facility] HospitalIn the event this information is protected by the Federal Confidentiality of Alcohol and Drug Abuse Patient Records regulations: The Federal rules restrict any use of the information to criminally investigate or prosecute any alcohol or drug abuse patient.[facility] HospitalIn the event this information is protected by the Federal Confidentiality of Alcohol and Drug Abuse Patient Records regulations: The Federal rules restrict any use of the information to criminally investigate or prosecute any alcohol or drug abuse patient.[facility] HospitalIn the event this information is protected by the Federal Confidentiality of Alcohol and Drug Abuse Patient Records regulations: The Federal rules restrict any use of the information to criminally investigate or prosecute any alcohol or drug abuse patient.[facility] HospitalIn the event this information is protected by the Federal Confidentiality of Alcohol and Drug Abuse Patient Records regulations: The Federal rules restrict any use of the information to criminally investigate or prosecute any alcohol or drug abuse patient.[facility] HospitalIn the event this information is protected by the Federal Confidentiality of Alcohol and Drug Abuse Patient Records regulations: The Federal rules restrict any use of the information to criminally investigate or prosecute any alcohol or drug abuse patient.[facility] HospitalIn the event this information is protected by the Federal Confidentiality of Alcohol and Drug Abuse Patient Records regulations: The Federal rules restrict any use of the information to criminally investigate or prosecute any alcohol or drug abuse patient.[facility] HospitalIn the event this information is protected by the Federal Confidentiality of Alcohol and Drug Abuse Patient Records regulations: The Federal rules restrict any use of the information to criminally investigate or prosecute any alcohol or drug abuse patient.[facility] HospitalIn the event this information is protected by the Federal Confidentiality of Alcohol and Drug Abuse Patient Records regulations: The Federal rules restrict any use of the information to criminally investigate or prosecute any alcohol or drug abuse patient.[facility] HospitalIn the event this information is protected by the Federal Confidentiality of Alcohol and Drug Abuse Patient Records regulations: The Federal rules restrict any use of the information to criminally investigate or prosecute any alcohol or drug abuse patient.[facility] HospitalIn the event this information is protected by the Federal Confidentiality of Alcohol and Drug Abuse Patient Records regulations: The Federal rules restrict any use of the information to criminally investigate or prosecute any alcohol or drug abuse patient.[facility] HospitalIn the event this information is protected by the Federal Confidentiality of Alcohol and Drug Abuse Patient Records regulations: The Federal rules restrict any use of the information to criminally investigate or prosecute any alcohol or drug abuse patient.[facility] HospitalIn the event this information is protected by the Federal Confidentiality of Alcohol and Drug Abuse Patient Records regulations: The Federal rules restrict any use of the information to criminally investigate or prosecute any alcohol or drug abuse patient.[facility] HospitalIn the event this information is protected by the Federal Confidentiality of Alcohol and Drug Abuse Patient Records regulations: The Federal rules restrict any use of the information to criminally investigate or prosecute any alcohol or drug abuse patient.[facility] HospitalIn the event this information is protected by the Federal Confidentiality of Alcohol and Drug Abuse Patient Records regulations: The Federal rules restrict any use of the information to criminally investigate or prosecute any alcohol or drug abuse patient.[facility] HospitalIn the event this information is protected by the Federal Confidentiality of Alcohol and Drug Abuse Patient Records regulations: The Federal rules restrict any use of the information to criminally investigate or prosecute any alcohol or drug abuse patient.[facility] HospitalIn the event this information is protected by the Federal Confidentiality of Alcohol and Drug Abuse Patient Records regulations: The Federal rules restrict any use of the information to criminally investigate or prosecute any alcohol or drug abuse patient.[facility] HospitalIn the event this information is protected by the Federal Confidentiality of Alcohol and Drug Abuse Patient Records regulations: The Federal rules restrict any use of the information to criminally investigate or prosecute any alcohol or drug abuse patient.[facility] the event this information is protected by the Federal Confidentiality of Alcohol and Drug Abuse Patient Records regulations: The Federal rules restrict any use of the information to criminally investigate or prosecute any alcohol or drug abuse patient.[facility] HospitalIn the event this information is protected by the Federal Confidentiality of Alcohol and Drug Abuse Patient Records regulations: The Federal rules restrict any use of the information to criminally investigate or prosecute any alcohol or drug abuse patient.[facility] HospitalIn the event this information is protected by the Federal Confidentiality of Alcohol and Drug Abuse Patient Records regulations: The Federal rules restrict any use of the information to criminally investigate or prosecute any alcohol or drug abuse patient.[facility] HospitalIn the event this information is protected by the Federal Confidentiality of Alcohol and Drug Abuse Patient Records regulations: The Federal rules restrict any use of the information to criminally investigate or prosecute any alcohol or drug abuse patient.[facility] HospitalIn the event this information is protected by the Federal Confidentiality of Alcohol and Drug Abuse Patient Records regulations: The Federal rules restrict any use of the information to criminally investigate or prosecute any alcohol or drug abuse patient.[facility] HospitalIn the event this information is protected by the Federal Confidentiality of Alcohol and Drug Abuse Patient Records regulations: The Federal rules restrict any use of the information to criminally investigate or prosecute any alcohol or drug abuse patient.[facility] HospitalIn the event this information is protected by the Federal Confidentiality of Alcohol and Drug Abuse Patient Records regulations: The Federal rules restrict any use of the information to criminally investigate or prosecute any alcohol or drug abuse patient.[facility] HospitalIn the event this information is protected by the Federal Confidentiality of Alcohol and Drug Abuse Patient Records regulations: The Federal rules restrict any use of the information to criminally investigate or prosecute any alcohol or drug abuse patient.[facility] HospitalIn the event this information is protected by the Federal Confidentiality of Alcohol and Drug Abuse Patient Records regulations: The Federal rules restrict any use of the information to criminally investigate or prosecute any alcohol or drug abuse patient.[facility] HospitalIn the event this information is protected by the Federal Confidentiality of Alcohol and Drug Abuse Patient Records regulations: The Federal rules restrict any use of the information to criminally investigate or prosecute any alcohol or drug abuse patient.[facility] Reason for Visit (unrecogniz ed section and content) Reason Comments Received Outside Medical Records [facility] 11/23/2021 Reason Comments CPAP Supplies RX and Certificate o f medical Necessity Reason Onset Date Comments Refill Request 01/11/2022 Reason Onset Date Comments Refill Request 01/24/2022 Reason Onset Date Comments Refill Request 02/02/2022 Reason Comments Patient Update medication request Reason Comments Abnormal Chest X-ray [facility] Reason Comments Received Outside Medical Records [facility] EKG 03/16/2022 Reason Onset Date Comments Refill Request 03/26/2022 Reason Comments Orders Reason Onset Date Comments Refill Request 05/31/2022 Reason Onset Date Comments Refill Request 07/26/2022 Reason Comments Refill Request Reason Comments Received Outside Medical Records [facility] 08/16/22 Reason Onset Date Comments Refill Request 08/18/2022 Reason Comments Follow Up Diabetes Reason Comments Results Reason Comments CPAP Supplies [facility] pl[facility] New order for supplies 11/11/2022 Reason Comments Orders CPAP supplies [facility] Reason Comments Medication Request Reason Comments Varicose Veins Right leg painful Reason Comments Medication Request Not on current list Reason Onset Date Comments [facility] Outreach 03/02/2023 [facility] Reason Comments Patient Update Reason Onset Date Comments Refill Request 04/15/2023 Reason Comments diabetic shoes Reason Comments No Show (Not No Show, patient called to cancel) Reason Comments Received Outside Medical Records [facility] 05/10/23 Reason Comments Refill Request Medication Request Reason Onset Date Comments Refill Request 06/10/2023 Reason Comments Follow Up Reason Comments Insurance Authorization [facility] Clinical Pharmacy Review Additional information for prior authorization for Levemir 06/17/2023 Reason Onset Date Comments Refill Request 07/14/2023 Reason Comments Medication Request Amoxicillin for dent al work appointments - needs at least 2 visits worth Reason Onset Date Comments Refill Request 08/11/2023 Reason Onset Date Comments [facility] Outreach 10/13/2023 [facility] Outreach Reason Onset Date Comments Neuropathy 10/14/2023 Bilateral foot p ain with neuropathy Reason Comments Neuropathy Reason Comments Received Outside Medical Records [facility] Notice of denial True [employer]rix Glucose test strips 10/18/2023 Reason Comments Medication Problem Levomir Reason Onset Date Comments Refill Request 11/28/2023 Reason Comments Received Outside Medical Records [facility] Cpap Supplies Prescription & Certificate of medical necessity Cpap supplies 11/30/2023 Reason Onset Date Comments Refill Request 12/12/2023 Dental cleaning - see RX notes Reason Comments CPAP Supplies Reason Comments Received Outside Medical Records Cardiac echo report 01/09/24 Reason Comments Received Outside Medical Records Carotid Duplex [facility] Reason Comments medication requested not on current med list Reason Onset Date Comments Refill Request 02/07/2024 Reason Onset Date Comments requesting medication that is . 07/03/202 4 Reason Comments Received Outside Medical Records [facility] Visit summary 03/08/2024 Right elbow pain and swelling. Reason Onset Date Comments Refill Request 03/19/2024 Reason Comments Received Outside Medical Records [facility] CTA head and Neck with contrast. 03/29/2024 Reason Comments Rx refill; not on current med list Reason Onset Date Comments Refill Request 05/04/2024 Reason Comments Rash itching x 1 week, on back and arms Reason Comments Received Outside Medical Records [facility] Reason Onset Date Comments Refill Request 07/09/2024 Reason Comments medication not on current med list Patient Question Reason Comments Follow Up diabetes Reason Comments Patient Question Reason Onset Date Comments Refill Request 09/14/2024 Reason Onset Date Comments Refill Request 11/06/2024 Reason Comments Follow Up Reason Comments Received Outside Medical Records [facility] phy sical therapy Reason Comments Received Outside Medical Records Cardiol christos Maravilla MD 11/28/24 [facility] Reason Comments left hand pain Left hand swelling x 2 weeks Reason Comments Received Outside Medical Records [facility] lab s Reason Comments Received Outside Medical Records Echo H Reason Onset Date Comments Refill Request 01/01/2025 Reason Comments Received Outside Medical Records [facility] PT discharge Reason Comments medication question Reason Comments 6 Month Exam Reason Onset Date Comments Population Health Navigation Outreach 02/13/2025 [facility]SA Reason Onset Date Comments requesting medication 02/18/2025 Reason Onset Date Comments Refill Request 03/08/2025 Needs today Reason Comments Rash Rash on MADAN legs x 4 days Reason Onset Date Comments Refill Request 03/29/2025 Care Teams (unrecognized sec tion and content) Food Technician Relationship Specialty Start Date End Date Aaron Solorzano MD [facility] [place] [address] PCP - General 08/11/09 Food Technician Relationship Specialty Start Date End Date Aaron Solorzano MD [address] [place] [id number] PCP - General 08/11/09 Food Technician Relationship Specialty Start Date End Date Aaron Solorzano MD [address] [place] [address], [place] [address] PCP - General 08/11/09 Food Technician Relationship Specialty Start Date End Date Aaron Solorzano MD [address] [place] [address], [place] [address] PCP - General 08/11/09 Food Technician Relationship Specialty Start Date End Date Aaron Solorzano MD [address] [place] [address], [place] [address] PCP - General 08/11/09 Food Technician Relationship Specialty Start Date End Date Aaron Solorzano MD [address] [place] [address], [place] [address] PCP - General 08/11/09 Food Technician Relationship Specialty Start Date End Date Aaron Solorzano MD [address] [place] [address], [place] [address] PCP - General 08/11/09 Food Technician Relationship Specialty Start Date End Date Aaron Solorzano MD [address] [place] [address], [place] [address] PCP - General 08/11/09 Food Technician Relationship Specialty Start Date End Date Aaron Solorzano MD [address] [place] [address] [place] [address] PCP - General 08/11/09 Food Technician Relationship Specialty Start Date End Date Aaron Solorzano MD [address] [place] [address], [place] [address] PCP - General 08/11/09 Food Technician Relationship Specialty Start Date End Date Aaron Solorzano MD [address] [place] [address], [place] [address] PCP - General 08/11/09 Food Technician Relationship Specialty Start Date End Date Aaron Solorzano MD [address] [facility] [address] PCP - General 08/11/09 Food Technician Relationship Specialty Start Date End Date Aaron Solorzano MD [address] [place] [address] PCP - General 08/11/09 Food Technician Relationship Specialty Start Date End Date Aaron Solorzano MD [address] [facility] [address] PCP - General 08/11/09 Team Status: Active Member Role Status Dates Dr. Mike Solorzano MD Family Provider Active Dr. Mike Solorzano MD Primary Care Provider Active Team Status: Inactive Member Role Status Dates Dr. Mike Solorzano MD Primary Care Provider Active Dr. Alan Correia DO Referring Provider, Emergency Pro vider Active Team Status: Active Member Role Status Dates Dr. Mike Solorzano MD Primary Care Provider Active Dr. Alex Pacheco MD Attending Provider Active Team Status: Inactive Member Role Status Dates Dr. Mike Solorzano MD Primary Care Provider Active Dr. Alan Correia DO Attending Provider, Referring Pro vider Active Food Technician Relationship Specialty Start Date End Date Aaron Solorzano MD [address] [place] [address] PCP - General 08/11/09 Food Technician Relationship Specialty Start Date End Date Aaron Solorzano MD [address] [place] [address] PCP - General 08/11/09 Food Technician Relationship Specialty Start Date End Date Aaron Solorzano MD [address] [place] [address] PCP - General 08/11/09 Food Technician Relationship Specialty Start Date End Date Aaron Solorzano MD [address] [facility] [address] PCP - General 08/11/09 Food Technician Relationship Specialty Start Date End Date Aaron Solorzano MD [address] [place] [address] PCP - General 08/11/09 Food Technician Relationship Specialty Start Date End Date Aaron Solorzano MD [address] [place] [address] PCP - General 08/11/09 Food Technician Relationship Specialty Start Date End Date Aaron Solorzano MD [address] [place] [address] PCP - General 08/11/09 Food Technician Relationship Specialty Start Date End Date Aaron Solorzano MD [address] [place] [address] PCP - General 08/11/09 Food Technician Relationship Specialty Start Date End Date Aaron Solorzano MD [address] [place] [address] PCP - General 08/11/09 Food Technician Relationship Specialty Start Date End Date Aaron Solorzano MD [address] [place] [address] PCP - General 08/11/09 Food Technician Relationship Specialty Start Date End Date Aaron Solorzano MD [address] [place] [address] PCP - General 08/11/09 Food Technician Relationship Specialty Start Date End Date Aaron Solorzano MD [address] [place] [address] PCP - General 08/11/09 Food Technician Relationship Specialty Start Date End Date Aaron Solorzano MD [address] [place] [address] PCP - General 08/11/09 Food Technician Relationship Specialty Start Date End Date Aaron Solorzano MD [address] [place] [address] PCP - General 08/11/09 Daxa Wing APRN.CLIENT SERVICES MANAGER [address] [place] [address] Drag Out Worker Internal Medicine 08/05/24 Food Technician Relationship Specialty Start Date End Date Aaron Solorzano MD [address] [place] [address] PCP - General 08/11/09 Daxa Wing APRN.CLIENT SERVICES MANAGER [address] [place] [address] Drag Out Worker Internal Medicine 08/05/24 Food Technician Relationship Specialty Start Date End Date Aaron Solorzano MD [address] [place] [address] PCP - General 08/11/09 Daxa Wing APRN.CLIENT SERVICES MANAGER [address] [place] [address] Drag Out Worker Internal Medicine 08/05/24 Food Technician Relationship Specialty Start Date End Date Aaron Solorzano MD [address] [place] [address] PCP - General 08/11/09 Daxa Wing CONSOLE ATTENDANT.CLIENT SERVICES MANAGER [address] [place], [place] [address] Drag Out Worker Internal Medicine 08/05/24 Food Technician Relationship Specialty Start Date End Date Aaron Solorzano MD [address] [place], [place] [address] PCP - General 08/11/09 Daxa Wing, CONSOLE ATTENDANT.CLIENT SERVICES MANAGER [address] [place], [place] [id number] Drag Out Worker Internal Medicine 08/05/24 Food Technician Relationship Specialty Start Date End Date Aaron Solorzano MD [address] [place], [place] [address] PCP - General 08/11/09 Daxa Wing, CONSOLE ATTENDANT.CLIENT SERVICES MANAGER [address] [place], [place] [id number] Drag Out Worker Internal Medicine 08/05/24 Food Technician Relationship Specialty Start Date End Date Aaron Solorzano MD [address] [place], [place] [address] PCP - General 08/11/09 Daxa Wing, CONSOLE ATTENDANT.CLIENT SERVICES MANAGER [address] [place], [place] [id number] Drag Out Worker Internal Medicine 08/05/24 Food Technician Relationship Specialty Start Date End Date Aaron Solorzano MD [address] [place], [place] [address] PCP - General 08/11/09 Daxa Wing, CONSOLE ATTENDANT.CLIENT SERVICES MANAGER [address] [place] [id number] [employer] Worker Internal Medicine 08/05/24 Food Technician Relationship Specialty Start Date End Date Aaron Solorzano MD [address] [place], [place] [id number] PCP - General 08/11/09 Daxa Wing CONSOLE ATTENDANT.CLIENT SERVICES MANAGER [address] [place], [place] [id number] [employer] Worker Internal Medicine 08/05/24 Food Technician Relationship Specialty Start Date End Date Aaron Solorzano MD [address] [place], [place] [id number] PCP - General 08/11/09 Daxa Wing, CONSOLE ATTENDANT.CLIENT SERVICES MANAGER [address] [place], [place] [id number] Drag Out Worker Internal Medicine 08/05/24 Food Technician Relationship Specialty Start Date End Date Aaron Solorzano MD [address] [place], [place] [id number] PCP - General 08/11/09 Daxa Wing, CONSOLE ATTENDANT.CLIENT SERVICES MANAGER [address] [place], [place] [id number] [facility] Internal Medicine 08/05/24 Food Technician Relationship Specialty Start Date End Date Aaron Solorzano MD [address] [place], [place] [id number] PCP - General 08/11/09 Mecca, Daxa, CONSOLE ATTENDANT.CLIENT SERVICES MANAGER [address] [place] [address] [facility] Internal Medicine 08/05/24 Team Status: Active Member Role Status Dates Dr. Mike Solorzano MD Primary Care Provider Active Team Status: Inactive Member Role Status Dates Dr. Mike Solorzano MD Primary Care Provider Active Start: November 28, 2024 End: November 28, 2024 Dr. Mike Solorzano MD Referring Provider Active Start: November 28, 2024 End: November 28, 2024 Dr. Rod Maravilla MD Attending Provider Active Start: November 28, 2024 End: November 28, 2024 Team Status: Inactive Member Role Status Dates Dr. Mike Solorzano MD Primary Care Provider Active Start: December 11, 2024 End: December 11, 2024 Dr. Rod Maravilla MD Attending Provider Active Start: December 11, 2024 End: December 11, 2024 Dr. Rod Maravilla MD Referring Provider Active Start: December 11, 2024 End: December 11, 2024 Team Status: Active Member Role Status Dates Dr. Mike Solorzano MD Primary Care Provider Active Start: December 14, 2024 Dr. Mike Solorzano MD Attending Provider Active Start: December 14, 2024 Dr. Mike Solorzano MD Referring Provider Active Start: December 14, 2024 Team Status: Inactive Member Role Status Dates Dr. Mike Solorzano MD Primary Care Provider Active Start: December 25, 2024 End: December 25, 2024 Dr. Rod Maravilla MD Attending Provider Active Start: December 25, 2024 End: December 25, 2024 Dr. Rod Maravilla MD Referring Provider Active Start: December 25, 2024 End: December 25, 2024 Team Status: Active Member Role Status Dates Dr. Mike Solorzano MD Primary Care Provider Active Start: December 25, 2024 Dr. Rod Maravilla MD Attending Provider Active Start: December 25, 2024 Team Status: Inactive Member Role Status Dates Dr. Mike Solorzano MD Primary Care Provider Active Start: January 01, 2025 End: January 01, 2025 Dr. Mike Solorzano MD Attending Provider Active Start: January 01, 2025 End: January 01, 2025 Dr. Mike Solorzano MD Referring Provider Active Start: January 01, 2025 End: January 01, 2025 Food Technician Relationship Specialty Start Date End Date Aaron Solorzano MD [address] [place] [address] PCP - General 08/11/09 Daxa Wing, ARIADNE.CLIENT SERVICES MANAGER [address] [place] [address] [place] [address] Drag Out Worker Internal Medicine 08/05/24 Team Status: Active Member Role/Relationship Status Dates Dr. Mike Solorzano MD Primary Care Provider Active Team Status: Inactive Member Role/Relationship Status Dates Dr. Mike Solorzano MD Primary Care Provider Active Start: December 25, 2024 End: December 25, 2024 Dr. Rod Maravilla MD Attending Provider Active Start: December 25, 2024 End: December 25, 2024 Dr. Rod Maravilla MD Referring Provider Active Start: December 25, 2024 End: December 25, 2024 Team Status: Active Member Role/Relationship Status Dates Dr. Mike Solorzano MD Primary Care Provider Active Start: December 25, 2024 Dr. Rod Maravilla MD Attending Provider Active Start: December 25, 2024 Team Status: Inactive Member Role/Relationship Status Dates Dr. Mike Solorzano MD Primary Care Provider Active Start: January 01, 2025 End: January 01, 2025 Dr. Mike Solorzano MD Attending Provider Active Start: January 01, 2025 End: January 01, 2025 Dr. Mike Solorzano MD Referring Provider Active Start: January 01, 2025 End: January 01, 2025 Team Status: Inactive Member Role/Relationship Status Dates Dr. Mike Solorzano MD Primary Care Provider Active Start: January 09, 2025 End: January 09, 2025 NP. Lucy Velasco Attending Provider Active Star t: January 09, 2025 End: January 09, 2025 SECURITY VEHICLE PATROL OFFICER. Lucy Krista Referring Provider Active Star t: January 09, 2025 End: January 09, 2025 Team Status: Active Member Role/Relationship Status Dates Dr. Mike Solorzano MD Primary Care Provider Active Start: April 15, 2025 Dr. Omer Boo MD Emergency Provider Active Sta rt: April 15, 2025 Dr. Debora Diaz MD Admit Provider Active Star t: April 15, 2025 Dr. Debora Diaz MD Attending Provider Active Start: April 15, 2025 Goals (unrecognized section and content) Goals may be documented in a n alternate section FOR RECORDS PERTAINING TO PATIENTS WHO ARE OR HAVE BEEN ENROLLED IN A CHEMICAL DEPENDENCY/SUBSTANCEABUSE PROGRAM, SOME INFORMATION MAY BE OMITTED. This clinical summary was aggregated from multiple sources. Caution should be exercised in using it in the provision of clinical care. This summary normalizes information from multiple sources, and as a consequence, information in this document may materially change the coding, format and clinical context of patient data. In addition, data may be omitted in some cases. CLINICAL DECISIONS SHOULD BE BASED ON THE PRIMARY CLINICAL RECORDS. [employer] provides no warranty or guarantee of the accuracy or completeness of information in this document.
[2025-04-16] VITALS (11 sets, daily range): BP systolic 101–159; BP diastolic 40–114; PULSE 71–96; RESP 14–22; TEMP 36.6–39.2; O2SAT 94–98
[2025-04-16] MEDS: 0.9% Normal Saline (500mL Bag) 500 ML 999 ML IV (00:19)
--- NOTE | 2025-04-16 01:29 | EKG12_ITS ---
Test Reason : RHYTHM CHANGE Blood Pressure : */* mmHG Vent. Rate : 86 BPM Atrial Rate : 86 BPM P-R Int : 144 ms QRS Dur : 58 ms QT Int : 350 ms P-R-T Axes : * 25 35 degrees QTcB Int : [address] & T wave abnormality, consider inferior ischemia Abnormal ECG When compared with ECG of 15-Apr-2025 14:41, MANUAL COMPARISON REQUIRED DATA IS UNCONFIRMED Confirmed by BABAK RUIZ, HORACE ([id number]), tape editor STEVIE GTZ ([id number]) on 04/16/2025 8:52:08 AM Referred By: Confirmed By: HORACE HILLIARD MD
--- NOTE | 2025-04-16 03:01 | NURSING ---
This RN went into patients room at 2200 to administer evening medication. Upon assessment patient was not following commands and had noticeable dysarthria and aphasia. NIHSS assessment exam preformed and stroke alert called at 2215. Following the patients return to the floor, core temperature noticed to be elevated at 103F, ice applied to groin and neck. made aware.
[2025-04-16] MEDS: Piperacil/Tazobactam 3.375 GM in 0.9% Normal Saline (50mL MB+) 50 ML IV (05:17)
[2025-04-16] MEDS: Vancomycin HCl 750 MG in 0.9% Normal Saline (250mL Bag) 250 ML 250 MG IV ×2 (05:32→18:56)
[2025-04-16 05:39] LABS: Hematocrit 34.5 % (40-54); Hemoglobin 11.9 g/dL (13.0-16.5); Immature Granulocytes Count 0.010 X10^3/uL (0.0-0.0); Mean Corp Hgb Conc 34.5 g/dL (32-36); Mean Corpuscular Volume 88.2 fL (80-94); Mean Platelet Vol. 9.3 fl (6.2-12.0); NRBC Flagged by Analyzer 0 % (0-5); POSITIVE DIFFERENTIAL YES; POSITIVE MORPHOLOGY YES; Platelet Count 100 K/mm3 (150-450); RBC Distribution Width CV 12.8 % (11.6-14.6); RBC Distribution Width SD 41.1 fl (35.1-43.9); Red Blood Count 3.91 M/mm3 (4.6-6.2); White Blood Count 3.8 K/mm3 (4.4-11.0)
--- NOTE | 2025-04-16 05:55 | MRI_ITS ---
PROCEDURE: BRAIN WITHOUT CONTRAST 04/16/2025 REASON FOR EXAM: STROKE TECHNIQUE: BRAIN WITHOUT CONTRAST Multiplanar and multisequence images were obtained. COMPARISON: 04/15/2025 CT. FINDINGS: Moderate global parenchymal atrophy. Minimal T2/FLAIR hyperintense foci likely representing chronic microvascular ischemia. Left maxillary sinus retention cyst. No evidence of acute hemorrhage or infarction. No extra-axial blood or fluid collections. The calvarial vault and skull base are intact. MRI/Brain without Contrast IMPRESSION: No acute intracranial abnormality. Reading Location: [id number]
[2025-04-16 06:11] LABS: Differential Indicated SCAN CRITERIA MET
[2025-04-16 06:18] LABS: AST(SGOT) 34 U/L (<=37); Alanine Aminotransfer ALT/SGPT 29 U/L (<=46); Albumin, Serum 3.4 g/dL (3.4-4.8); Alkaline Phosphatase 76 U/L (40-129); Anion Gap 13 (5-15); BUN 15 mg/dL (4-19); BUN/Creat Ratio 15.7 RATIO (10-20); Calcium,Total 8.2 mg/dL (7.6-11.0); Carbon Dioxide 20.4 mmol/L (21.0-32.0); Chloride 97 mmol/L (98-108); Estimated Creatinine Clearance 67.37 ml/min (50-250); Globulin 2.6 g/dL (2.2-4.2); Glucose 197 mg/dL (70-99); Potassium 4.1 mmol/L (3.3-5.1)
[2025-04-16 07:24] LABS: Differential Comment SCANNED
--- NOTE | 2025-04-16 08:51 | ECHOL_ITS ---
Reason For Study Reason For Study: Murmur Procedure This was a limited 2D transthoracic echocardiogram. The study was technically difficult. Exam performed portable in patient room. Left Ventricle Normal LV size. Increased LV thickness. Left ventricular systolic function is lower limits of normal. The estimated ejection fraction is 50 %. No regional wall motion abnormalities noted. Right Ventricle Normal size and thickness. Normal systolic function. Atria There is mild biatrial dilatation. Mitral Valve The mitral valve is structurally normal. No prolapse or stenosis seen. Mild (1+) mitral valve insufficiency. Tricuspid Valve Normal tricuspid valve. Mild to moderate (1-2+) tricuspid valve insufficiency. Right ventricular systolic pressure estimated to be 40 mmHg. MMode/2D Measurements & Calculations LVIDd: 4.4 cm IVSd: 1.2 cm LVIDs: 3.4 cm LVPWd: 1.0 cm FS: 21.5 % Doppler Measurements & Calculations TR max lynette: 304.1 cm/sec TR max P.0 mmHg ECHO/Echo, Limited Study Interpretation Summary Right ventricular systolic pressure estimated to be 40 mmHg. Mild to moderate (1-2+) tricuspid valve insufficiency. No regional wall motion abnormalities noted. The estimated ejection fraction is 50 %. Normal LV size. There is mild biatrial dilatation. This was essentially a normal study. Ordering Physician: Alex Gonzales Performed By: Palmer Bolton RCS
--- NOTE | 2025-04-16 10:24 | PCM.CONS.GEN ---
Assessment & Plan Assessment/Plan (1) MRSA bacteremia: PLAN: MRSA bacteremia per pcr, unclear source. Will check TTE, repeat bcx. Stop zosyn, cont vanc. Will follow, thank you, d/w primary team (2) SIRS (systemic inflammatory response syndrome): (3) History of aortic valve replacement: HPI Consult Data Date of Consult: 04/16/25 HPI Narrative Reason for Consultation: bacteremia HPI Narrative: ASCENCION WEIR, is a 74 M with h/o tissue aortic valve replacement, BPH, chronic back pain and neuropathy with stimulator in place, presented 04/15 with sudden onset fever, chills, generalized weakness, confusion. Denies any recent procedures, infections, or abx. Mild dry cough for a few days. Came to ED, admitted on vanc/zosyn, feeling better but still some chills. No new focal joint or back pain. Full ROS performed and neg except as noted above. [facility] Medical History Right carotid bruit History of tenosynovitis Former smoker H/O methicillin resistant Staphylococcus aureus infection Arthritis Swelling of joint of left hand Hearing problem Cataracts, bilateral Back problem Arthritis HLD (hyperlipidemia) Hyponatremia Near syncope Lightheaded Chest wall pain Postoperative atrial fibrillation Atherosclerotic heart disease of [place] coronary artery without angina pectoris Pericardial effusion Fever Chest pain Multi-vessel coronary artery stenosis Dyspnea on exertion Abnormal echocardiogram Nonrheumatic aortic (valve) stenosis Intractable back pain Benign prostatic hypertrophy Physical debility Pain Asthmatic bronchitis with exacerbation Obstructive sleep apnea syndrome Obesity Type II diabetes mellitus Benign essential hypertension Home Medications ?Medication ?Instructions ?Recorded ?Last Taken ?Type aspirin 81 mg chewable tablet 81 mg PO DAILY heart health 11/21/16 03/18/20 History metformin 500 mg tablet 1,000 mg PO BIDCM diabetes 11/21/16 03/17/20 History tamsulosin 0.4 mg capsule 0.4 mg PO QHS BPH 11/21/16 01/01/18 History gabapentin 400 mg capsule 400 mg PO TID 02/28/20 Unknown History hydroxychloroquine 200 mg tablet 200 mg PO DAILY 02/28/20 Unknown History tramadol 50 mg tablet 50 mg PO Q6H PRN PRN Pain Or Fever 05/29/20 Unknown History multivitamin 1 tab PO DAILY Supplement 06/09/20 Unknown History celecoxib 200 mg capsule (Celebrex) 200 mg PO BID 06/27/20 Unknown History atorvastatin 20 mg tablet 20 mg PO QHS 12/22/20 Unknown History metoprolol succinate 50 mg 50 mg PO QDAY 05/31/24 Unknown History tablet,extended release 24 hr metoprolol succinate 100 mg 50 mg PO DAILY 04/15/25 Unknown History tablet,extended release 24 hr Allergy/AdvReac Type Severity Reaction Status Date / Time No Known Allergies Allergy Verified 04/15/25 14:20 Family History Father Myocardial infarction, Onset Age: 73 Mother Myocardial infarction, Onset Age: 68 Other Arthritis Asthma Diabetes High cholesterol Hypertension Surgical History History of aortic valve replacement with bioprosthetic valve (~05/08/20) History of coronary artery bypass surgery (~05/08/20) History of left heart catheterization (03/18/20) History of knee replacement History of total knee arthroplasty Social History Smoking Status: Former smoker alcohol intake: never substance use type: does not use caffeine: Yes Type: coffee Number of servings: 3 additional social history: Does Not Take Ibuprofen Physical Exam Const alert, oriented x3 and no apparent distress General Appearance: cooperative HEENT normocephalic and head/scalp atraumatic Eyes PERRL and EOMs intact bilaterally Neck supple and No nodes Resp normal air movement and clear to auscultation bilaterally Cardio regular rate and regular rhythm Heart Sounds: murmur GI soft to palpation, non-tender and non-distended Extremity General Extremity: no tenderness to palpation of joints or extremities; Negative for edema Skin no rashes or lesions noted Skin Narrative: No splinter hemorrhages on hands or feet. No spine tenderness. No inflammation over R lower back stimulator site. Neuro CN's II-XII intact bilaterally Lab / Micro Data Attestation: I reviewed the patient's lab results. 04/16/25 05:12 04/16/25 05:12 Labs: Laboratory Results - last 24 hr 04/15/25 14:36: WBC 3.1 L, RBC 4.08 L, Hgb 12.6 L, Hct 36.2 L, MCV 88.7, MCH 30.9, MCHC 34.8, RDW Std Deviation 40.6, RDW Coeff of Liang 12.6, Plt Count 100 L, MPV 9.1, Immature Gran % (Auto) 0.700, Neut % (Auto) 83.9 H, Lymph % (Auto) 6.9 L, [place] % (Auto) 7.2, Eos % (Auto) 1.0, Baso % (Auto) 0.3, Absolute Neuts (auto) 2.6, Absolute Lymphs (auto) 0.21 L, Nucleated RBC % 0, PT 15.1 H, INR 1.2, APTT 30.3, Sodium 132 L, Potassium 4.6, Chloride 96 L, Carbon Dioxide 23.1, Anion Gap 13, BUN 13, Creatinine 0.91, Estim Creat Clear Calc 74.67, Est GFR (MDRD) Non-Af 88, BUN/Creatinine Ratio 14.6, Glucose 125 H, Lactic Acid 1.6, Calcium 9.3, Total Bilirubin 0.52, AST 36, ALT 30, Alkaline Phosphatase 99, Total Protein 7.1, Albumin 4.3, Globulin 2.8, Albumin/Globulin Ratio 1.6 04/15/25 15:05: Urine Color Yellow, Urine Clarity Clear, Urine pH 7.0, Ur Specific Dike 1.010, Urine Protein 30 H, Urine Glucose (UA) Normal, Urine Ketones 5 H, Urine Occult Blood 10 H, Urine Nitrite Negative, Urine Bilirubin Negative, Urine Urobilinogen Normal, Ur Leukocyte Esterase Negative, Urine RBC 0-5 SEEN, Urine WBC 0-5 SEEN, Ur Squamous Epith Cells 0-5 SEEN, Urine Bacteria 0 SEEN, Urine Mucus 0 SEEN 04/15/25 22:07: POC Glucose 214 H 04/16/25 00:23: POC Glucose 216 H 04/16/25 05:12: WBC 3.8 L, RBC 3.91 L, Hgb 11.9 L, Hct 34.5 L, MCV 88.2, MCH 30.4, MCHC 34.5, RDW Std Deviation 41.1, RDW Coeff of Liang 12.8, Plt Count 100 L, MPV 9.3, Immature Gran % (Auto) 0.300, Neut % (Auto) 83.0 H, Lymph % (Auto) 6.6 L, [place] % (Auto) 9.6, Eos % (Auto) 0.0, Baso % (Auto) 0.5, Absolute Neuts (auto) 3.1, Absolute Lymphs (auto) 0.25 L, Nucleated RBC % 0, Differential Comment SCANNED, Sodium 130 L, Potassium 4.1, Chloride 97 L, Carbon Dioxide 20.4 L, Anion Gap 13, BUN 15, Creatinine 0.95, Estim Creat Clear Calc 67.37, Est GFR (MDRD) Non-Af 83, BUN/Creatinine Ratio 15.7, Glucose 197 H, Calcium 8.2, Total Bilirubin 0.47, AST 34, ALT 29, Alkaline Phosphatase 76, Total Protein 5.9, Albumin 3.4, Globulin 2.6, Albumin/Globulin Ratio 1.3 04/16/25 06:22: POC Glucose 207 H Micro: Microbiology 04/15/25 15:05 Urine, Catheterized Urine Culture - Preliminary Culture exhibits no growth. 04/15/25 14:50 Blood Culture (Wb) - Anticubital Left Blood Culture - Preliminary 04/15/25 14:36 Blood Culture (Wb) - Anticubital Right Bacteria Detection (PCR) - Final Meth. resistant Staph. aureus mecA Resistance Marker 04/15/25 14:36 Blood Culture (Wb) - Anticubital Right Blood Culture - Preliminary 04/15/25 22:00 Mucosa - Nasopharyngeal Respiratory Panel (PCR) - Final 04/15/25 15:05 Mucosa - Nose SARS-CoV-2, Influenza & RSV (PCR) - Final Imaging Radiology Impression Chest X-Ray 04/15/25 15:15 IMPRESSION: No Acute Findings. Reading Location: [facility] Chest/Abdomen/Pelvis CT 04/15/25 18:05 IMPRESSION: Minimal inflammatory change in the right lower lobe. No acute abnormality. Incidental findings as above Reading [facility] Head/Neck CTA 04/15/25 22:26 IMPRESSION: 1. No large vessel arterial occlusion or high-grade stenosis. 2. Atherosclerotic plaque at the carotid bifurcations with moderate stenosis of the proximal right ICA, and mild less than 50% stenosis of the proximal left ICA. Reading Location: [id number] Brain CT 04/15/25 22:32 IMPRESSION: No acute intracranial abnormality. Reading Location: [id number]
[2025-04-16] MEDS: 0.9% Saline Lock 10 ML Syringe IV ×2 (10:32→18:56)
[2025-04-16] MEDS: 0.9% Normal Saline (1000mL) 2,000 ML 125 ML IV (10:42)
--- NOTE | 2025-04-16 11:20 | CASEMGMT ---
RN CM Face to Face with patient for initial transition planning/care coordination assessment. RN CM introduced self and role at [facility]. Patient lying in bed, alert and oriented. Patient willing to participate in assessment and is able to answer all questions appropriately. Care providers, pharmacy, and demographics verified. Strata: 2 PCP: Sandra Specialists: jose luis Najera Preferred Pharmacy: [facility] Insurance: [facility] Prescription Benefit: yes Living Will/HPOA: none LNOK: Living Arrangements: Patient lives with in a single story home with 3 steps and railing. Patient states he is independent at home Transportation: self, DME/HHC: Patient has shower chair, cane, grab bars, cpap, glucometer with supplies at home. No previous HHC or SNF. Patient wishes to discharge home, denies need for home health at this time. Patient states he has no further needs or concerns at this time. CM to follow for discharge planning needs that may arise. Disposition Plan: Patient to discharge home with family support and follow-up plans in place. Ariana DILLARD, RN, CM
--- NOTE | 2025-04-16 12:25 | PCM.PROGNOTE ---
Subjective Subjective Patient seen and examined with his nurse by his bedside. He was admitted with a complaint of confusion yesterday. He says he does not even remember why he was admitted. In the early hours of this morning) was found to have some dysarthria so CT of the brain was done but this was negative for stroke. He is awaiting MRI. He has no complaints this morning. His dysarthria seems to have largely resolved. He denies any fever or chills, palpitations, nausea or vomiting. His blood cultures are positive for gram-positive cocci in clusters. Objective Data Objective Data Vital Signs: Vital Signs Temp Pulse Resp BP Pulse Ox O2 Del Method O2 Flow Rate 98.6 F 78 16 104/40 L 97 Room Air 2 04/16/25 09:22 04/16/25 09:22 04/16/25 09:22 04/16/25 09:22 04/16/25 09:22 04/16/25 09:22 04/15/25 23:30 Oxygen Flow Rate (L/min) 2 Oxygen Delivery Method Room Air Weight: 185 lb 13.595 oz Body Mass Index (BMI) 29.9 Intake & Output: Intake and Output for Last 24 Hours 04/14/25 04/15/25 04/16/25 23:59 23:59 23:59 Intake Total 1430 / 1430 1965 / 1965 Output Total 1100 / 1100 650 / 650 Balance 330 / 330 1315 / 1315 Lab / Micro Data 04/16/25 05:12 04/16/25 05:12 Labs: Laboratory Results - last 24 hr 04/15/25 14:36: WBC 3.1 L, RBC 4.08 L, Hgb 12.6 L, Hct 36.2 L, MCV 88.7, MCH 30.9, MCHC 34.8, RDW Std Deviation 40.6, RDW Coeff of Liang 12.6, Plt Count 100 L, MPV 9.1, Immature Gran % (Auto) 0.700, Neut % (Auto) 83.9 H, Lymph % (Auto) 6.9 L, Cannon % (Auto) 7.2, Eos % (Auto) 1.0, Baso % (Auto) 0.3, Absolute Neuts (auto) 2.6, Absolute Lymphs (auto) 0.21 L, Nucleated RBC % 0, PT 15.1 H, INR 1.2, APTT 30.3, Sodium 132 L, Potassium 4.6, Chloride 96 L, Carbon Dioxide 23.1, Anion Gap 13, BUN 13, Creatinine 0.91, Estim Creat Clear Calc 74.67, Est GFR (MDRD) Non-Af 88, BUN/Creatinine Ratio 14.6, Glucose 125 H, Lactic Acid 1.6, Calcium 9.3, Total Bilirubin 0.52, AST 36, ALT 30, Alkaline Phosphatase 99, Total Protein 7.1, Albumin 4.3, Globulin 2.8, Albumin/Globulin Ratio 1.6 04/15/25 15:05: Urine Color Yellow, Urine Clarity Clear, Urine pH 7.0, Ur Specific [place] 1.010, Urine Protein 30 H, Urine Glucose (UA) Normal, Urine Ketones 5 H, Urine Occult Blood 10 H, Urine Nitrite Negative, Urine Bilirubin Negative, Urine Urobilinogen Normal, Ur Leukocyte Esterase Negative, Urine RBC 0-5 SEEN, Urine WBC 0-5 SEEN, Ur Squamous Epith Cells 0-5 SEEN, Urine Bacteria 0 SEEN, Urine Mucus 0 SEEN 04/15/25 22:07: POC Glucose 214 H 04/16/25 00:23: POC Glucose 216 H 04/16/25 05:12: WBC 3.8 L, RBC 3.91 L, Hgb 11.9 L, Hct 34.5 L, MCV 88.2, MCH 30.4, MCHC 34.5, RDW Std Deviation 41.1, RDW Coeff of Liang 12.8, Plt Count 100 L, MPV 9.3, Immature Gran % (Auto) 0.300, Neut % (Auto) 83.0 H, Lymph % (Auto) 6.6 L, Cannon % (Auto) 9.6, Eos % (Auto) 0.0, Baso % (Auto) 0.5, Absolute Neuts (auto) 3.1, Absolute Lymphs (auto) 0.25 L, Nucleated RBC % 0, Differential Comment SCANNED, Sodium 130 L, Potassium 4.1, Chloride 97 L, Carbon Dioxide 20.4 L, Anion Gap 13, BUN 15, Creatinine 0.95, Estim Creat Clear Calc 67.37, Est GFR (MDRD) Non-Af 83, BUN/Creatinine Ratio 15.7, Glucose 197 H, Calcium 8.2, Total Bilirubin 0.47, AST 34, ALT 29, Alkaline Phosphatase 76, Total Protein 5.9, Albumin 3.4, Globulin 2.6, Albumin/Globulin Ratio 1.3 04/16/25 06:22: POC Glucose 207 H 04/16/25 11:52: POC Glucose 210 H Micro: Microbiology 04/15/25 15:05 Urine, Catheterized Urine Culture - Preliminary Culture exhibits no growth. 04/15/25 14:50 Blood Culture (Wb) - Anticubital Left Blood Culture - Preliminary 04/15/25 14:36 Blood Culture (Wb) - Anticubital Right Bacteria Detection (PCR) - Final Meth. resistant Staph. aureus mecA Resistance Marker 04/15/25 14:36 Blood Culture (Wb) - Anticubital Right Blood Culture - Preliminary 04/15/25 22:00 Mucosa - Nasopharyngeal Respiratory Panel (PCR) - Final 04/15/25 15:05 Mucosa - Nose SARS-CoV-2, Influenza & RSV (PCR) - Final Radiography Diagnostic Testing: Radiology Impression Chest X-Ray 04/15/25 15:15 IMPRESSION: No Acute Findings. Reading Location: [facility] Chest/Abdomen/Pelvis CT 04/15/25 18:05 IMPRESSION: Minimal inflammatory change in the right lower lobe. No acute abnormality. Incidental findings as above Reading Location: [facility] Head/Neck CTA 04/15/25 22:26 IMPRESSION: 1. No large vessel arterial occlusion or high-grade stenosis. 2. Atherosclerotic plaque at the carotid bifurcations with moderate stenosis of the proximal right ICA, and mild less than 50% stenosis of the proximal left ICA. Reading Location: [facility] Brain CT 04/15/25 22:32 IMPRESSION: No acute intracranial abnormality. Reading Location: [facility] Physical Exam Const alert, oriented x3 and no apparent distress General Appearance: cooperative HEENT normocephalic, head/scalp atraumatic, moist oral mucous membranes, oropharynx normal and gingiva normal Eyes EOMs intact bilaterally Neck no lymphadenopathy and supple Lymph Lymphatic: no lymphedema noted Resp normal respiratory effort, normal air movement and clear to auscultation bilaterally Cardio regular rate, regular rhythm, S1 normal heart sound, S2 normal heart sound and no murmurs GI normal to inspection, nondistended, normoactive bowel sounds, soft to palpation and non-tender Extremity normal capillary refill, no clubbing, cyanosis or edema and no calf tenderness General Extremity: no tenderness to palpation of joints or extremities Skin General Skin Exam: no breakdown Neuro CN's II-XII intact bilaterally and no focal motor deficits Motor Exam: general weakness Psych thought process normal and cooperative Appearance: appropriate Assessment & Plan Assessment/Plan (1) MRSA bacteremia: (2) Change in mental status: (3) Fever of unknown origin: PLAN: Plan #MRSA bacteremia Admitted with a complaint of fever of unknown origin as well as confusion. CT chest abdomen and pelvis did not show any evidence of any infection. Started on IV vancomycin and Zosyn. Blood cultures came back positive for gram-positive cocci in clusters. PCR showing MRSA. 2D echo ordered today showed RVSP of 40 mmHg with EF of 50% and normal left ventricular size with mild to moderate tricuspid valve insufficiency and no regional wall motion abnormalities noted. ID on board. #Strokelike symptoms Developed dysarthria overnight. CT of the brain showed no evidence of stroke. Awaiting MRI after this clarified whether his spinal stimulator is MRI compatible. Monitor NIH stroke scale. on PO aspirin and high intensity statin #Pancytopenia: WBCs 3.8 today with hemoglobin of 11.9 and platelets of 100. Will monitor closely. If platelets drop further will DC Lovenox. #Type 2 diabetes mellitus: on ISS. 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 stable #LIAN: on CPAP qhs #Chronic back pain: has a spinal stimulator in situ. Follow with pain management on outpatient basis. DVT prophylaxis: lovenox Charges/Coding Visit Charges Inpatient E&M: 76706 [facility] Hosp L3
--- NOTE | 2025-04-16 21:54 | PCM.HOSP.N ---
Hospitalist Note Patient with MAP <65 throughout the day, administered IVFs, SBP still remains low, DBP in the 40s, will add midodrine.
[2025-04-17] VITALS (11 sets, daily range): BP systolic 91–130; BP diastolic 43–76; PULSE 66–89; RESP 16–20; TEMP 36.5–36.9; O2SAT 94–100
[2025-04-17] MEDS: Vancomycin Trough/Random Due 1 LAB MC (06:44)
[2025-04-17 06:46] LABS: Hematocrit 31.7 % (40-54); Hemoglobin 11.3 g/dL (13.0-16.5); Immature Granulocytes Count 0.010 X10^3/uL (0.0-0.0); Mean Corp Hgb Conc 35.6 g/dL (32-36); Mean Corpuscular Volume 87.8 fL (80-94); Mean Platelet Vol. 9.7 fl (6.2-12.0); NRBC Flagged by Analyzer 0 % (0-5); POSITIVE COUNT YES; POSITIVE DIFFERENTIAL YES; POSITIVE MORPHOLOGY YES; Platelet Count 81 K/mm3 (150-450); RBC Distribution Width CV 12.7 % (11.6-14.6); RBC Distribution Width SD 40.7 fl (35.1-43.9); Red Blood Count 3.61 M/mm3 (4.6-6.2); White Blood Count 2.4 K/mm3 (4.4-11.0)
[2025-04-17 07:07] LABS: Vancomycin, Trough Level 8.8 ug/mL (5.0-15.0)
[2025-04-17 07:08] LABS: Anion Gap 9 (5-15); BUN 11 mg/dL (4-19); BUN/Creat Ratio 13.2 RATIO (10-20); Calcium,Total 8.2 mg/dL (7.6-11.0); Carbon Dioxide 23.3 mmol/L (21.0-32.0); Chloride 102 mmol/L (98-108); Estimated Creatinine Clearance 77.11 ml/min (50-250); Glucose 128 mg/dL (70-99); Potassium 4.2 mmol/L (3.3-5.1)
[2025-04-17 07:26] LABS: Differential Indicated SCAN CRITERIA MET
--- NOTE | 2025-04-17 07:42 | ECHOTEE_ITS ---
Reason For Study Reason For Study: ENDOCARDITIS Medication ZAINAB probe 6VT-D (SN [id number]) passed without difficulty. No complications were noted. Cetacaine Topical Gregory given X3 orally. Versed 2 mg given slow IVP. Fentanyl 50 mcg given slow IVP. Performed a rapid injection of agitated mix of 9 cc saline and 1cc air to assess for atrial septal defect. Left Ventricle Normal LV size. Left ventricular systolic function is normal. The left ventricular ejection fraction is 65 %. No regional wall motion abnormalities noted. Right Ventricle Normal RV size. Normal systolic function. Atria Bubble contrast study is negative for PFO/ASD. The left atrium is mildly enlarged. No thrombus is detected in the left atrial appendage. Normal right atrium. Prominent eustachian valve. Mitral Valve Normal mitral valve. Mild (1+) eccentric mitral valve insufficiency. Tricuspid Valve Normal tricuspid valve. Mild tricuspid valve insufficiency. Aortic Valve Bioprosthetic aortic valve. Stable appearing bioprosthetic aortic valve apparatus. Pulmonic Valve Normal pulmonic valve. Vessels Normal aortic root. Pericardium No pericardial effusion. ECHO/Echo Transesophageal (ZAINAB) Interpretation Summary Normal LV size. Left ventricular systolic function is normal. The left ventricular ejection fraction is 65 %. Bubble contrast study is negative for PFO/ASD. No thrombus is detected in the left atrial appendage. Mild (1+) eccentric mitral valve insufficiency. No valvular vegetations noted. Stable appearing bioprosthetic aortic valve apparatus. Ordering Physician: Margarita Harris Performed By: Johanny Huston RDCS
--- NOTE | 2025-04-17 08:24 | PCM.RX.CS ---
Consult Antibiotic Management Pharmacy has been consulted to manage selected antibiotic: Vancomycin Type of Intervention Type of Consult: Follow-up Suspected Infection Suspected Infection: Sepsis Prior Doses of Antibiotics Prior Doses of Antibiotics Received/Current Regimen: X1 LD X2 MD (750 mg Q12H) Labs Labs: Sodium 134 mmol/L (133-145) 04/17/25 06:20 Potassium 4.2 mmol/L (3.3-5.1) 04/17/25 06:20 Chloride 102 mmol/L (98-108) 04/17/25 06:20 Carbon Dioxide 23.3 mmol/L (21.0-32.0) 04/17/25 06:20 Anion Gap 9 (5-15) 04/17/25 06:20 BUN 11 mg/dL (4-19) 04/17/25 06:20 Creatinine 0.83 mg/dL (0.70-1.20) 04/17/25 06:20 Est GFR (MDRD) Non-Af 91 (>60) 04/17/25 06:20 BUN/Creatinine Ratio 13.2 RATIO (10-20) 04/17/25 06:20 Glucose 128 mg/dL (70-99) H 04/17/25 06:20 Vancomycin Trough 8.8 ug/mL (5.0-15.0) 04/17/25 06:20 Microbiology Microbiology: Microbiology 04/15/25 15:05 Urine, Catheterized Urine Culture - Final Culture exhibits no growth. 04/15/25 14:50 Blood Culture (Wb) - Anticubital Left Blood Culture - Preliminary Staphylococcus aureus 04/15/25 14:36 Blood Culture (Wb) - Anticubital Right Bacteria Detection (PCR) - Final Meth. resistant Staph. aureus mecA Resistance Marker 04/15/25 14:36 Blood Culture (Wb) - Anticubital Right Blood Culture - Preliminary Staphylococcus aureus 04/15/25 22:00 Mucosa - Nasopharyngeal Respiratory Panel (PCR) - Final 04/15/25 15:05 Mucosa - Nose SARS-CoV-2, Influenza & RSV (PCR) - Final Dosing Weight Weight used for dosin kg Estimated Creatinine Clearance Estimated Creatinine Clearance: 77 Goal Trough Goal Trough: 10-15 mcg/mL Pharmacy Plan for Drug Dosing Pharmacy Plan for Drug Dosing: Pharmacy Service will continue to monitor and adjust dosing as required. VANCOMYCIN LEVEL RECEIVED Current Vancomycin Dose: 750 MG Q12H Number of Doses Received: 3 (x1 LD + x2 MD) Vancomycin Level: 8.8 (low) Hours Since Last Dose: 11.5 Renal Function: SCr: 0.83, CrCl: 77 Renal Function Trend: Increasing Lab/Micro: MRSA Bacteremia Vancomycin Plan/Comments: INCREASE DOSE TO 1000 MG Q12H with first dose 04/17 @ 0900 Pending Level: 04/18/25 @ 2029 Date/Time Labs Ordered Labs to be done on [date and time ordered]: 04/18/25 @ 2029
[2025-04-17] MEDS: 0.9% Saline Lock 10 ML Syringe IV ×2 (09:19→11:05)
[2025-04-17] MEDS: Vancomycin HCl 1,000 MG in 0.9% Normal Saline (250mL Bag) 250 ML 250 MG IV ×2 (09:19→21:47)
[2025-04-17] MEDS: 0.9% Normal Saline (250mL Bag) 250 ML 15 ML IV (09:23)
--- NOTE | 2025-04-17 10:04 | PN_ITS ---
Subjective Subjective Patient seen and examined this morning with his nurse by his bedside. He had no complaints. He had an uneventful night. Review of systems otherwise negative. Objective Data Objective Data Vital Signs: Vital Signs Temp Pulse Resp BP Pulse Ox O2 Del Method O2 Flow Rate 98.3 F 87 18 110/76 98 Room Air 2 04/17/25 09:20 04/17/25 09:40 04/17/25 09:40 04/17/25 09:40 04/17/25 09:40 04/17/25 09:40 04/17/25 00:03 Oxygen Flow Rate (L/min) 2 Oxygen Delivery Method Room Air Weight: 185 lb 13.595 oz Body Mass Index (BMI) 29.9 Intake & Output: Intake and Output for Last 24 Hours 04/15/25 04/16/25 04/17/25 23:59 23:59 23:59 Intake Total 1430 / 1430 3663.33 / 3663.33 1016.67 / 1016.67 Output Total 1100 / 1100 3500 / 3500 1900 / 1900 Balance 330 / 330 163.33 / 163.33 -883.33 / -883.33 Lab / Micro Data 04/17/25 06:20 04/17/25 06:20 Labs: Laboratory Results - last 24 hr 04/16/25 11:52: POC Glucose 210 H 04/16/25 17:03: POC Glucose 119 H 04/16/25 21:34: POC Glucose 155 H 04/17/25 06:18: POC Glucose 125 H 04/17/25 06:20: WBC 2.4 L, RBC 3.61 L, Hgb 11.3 L, Hct 31.7 L, MCV 87.8, MCH 31.3, MCHC 35.6, RDW Std Deviation 40.7, RDW Coeff of Liang 12.7, Plt Count 81 L, MPV 9.7, Immature Gran % (Auto) 0.400, Neut % (Auto) 62.6, Lymph % (Auto) 18.3 L , [place] % (Auto) 15.7 H, Eos % (Auto) 2.6, Baso % (Auto) 0.4, Absolute Neuts (auto) 1.5 L, Absolute Lymphs (auto) 0.43 L, Nucleated RBC % 0, Platelet Estimate MOD DEC, Sodium 134, Potassium 4.2, Chloride 102, Carbon Dioxide 23.3, Anion Gap 9, BUN 11, Creatinine 0.83, Estim Creat Clear Calc 77.11, Est GFR (MDRD) Non-Af 91, BUN/Creatinine Ratio 13.2, Glucose 128 H, Calcium 8.2, Vancomycin Trough 8.8 Micro: Microbiology 04/15/25 15:05 Urine, Catheterized Urine Culture - Final Culture exhibits no growth. 04/15/25 14:50 Blood Culture (Wb) - Anticubital Left Blood Culture - Preliminary Staphylococcus aureus 04/15/25 14:36 Blood Culture (Wb) - Anticubital Right Bacteria Detection (PCR) - Final Meth. resistant Staph. aureus mecA Resistance Marker 04/15/25 14:36 Blood Culture (Wb) - Anticubital Right Blood Culture - Preliminary Staphylococcus aureus 04/15/25 22:00 Mucosa - Nasopharyngeal Respiratory Panel (PCR) - Final 04/15/25 15:05 Mucosa - Nose SARS-CoV-2, Influenza & RSV (PCR) - Final Radiography Diagnostic Testing: Radiology Impression Brain MRI 04/16/25 05:55 IMPRESSION: No acute intracranial abnormality. Reading Location: [facility] Echocardiogram 04/16/25 08:51 Interpretation Summary Right ventricular systolic pressure estimated to be 40 mmHg. Mild to moderate (1-2+) tricuspid valve insufficiency. No regional wall motion abnormalities noted. The estimated ejection fraction is 50 %. Normal LV size. There is mild biatrial dilatation. This was essentially a normal study. Ordering Physician: Alex Gonzales Performed By: Palmer Bolton RCS Transesophageal Echocardiogram 04/17/25 07:42 Interpretation Summary Normal LV size. Left ventricular systolic function is normal. The left ventricular ejection fraction is 65 %. Bubble contrast study is negative for PFO/ASD. No thrombus is detected in the left atrial appendage. Mild (1+) eccentric mitral valve insufficiency. No valvular vegetations noted. Stable appearing bioprosthetic aortic valve apparatus. Ordering Physician: Margarita Harris Performed By: Johanny Huston RDCS Physical Exam Const alert, oriented x3 and no apparent distress General Appearance: cooperative Orientation / Consciousness: confused HEENT normocephalic, head/scalp atraumatic, moist oral mucous membranes, oropharynx normal and gingiva normal Eyes PERRL and EOMs intact bilaterally Neck no lymphadenopathy and supple Lymph Lymphatic: no lymphedema noted Resp normal respiratory effort, normal air movement, no use of accessory muscles and clear to auscultation bilaterally Cardio regular rate, regular rhythm, S1 normal heart sound, S2 normal heart sound and no murmurs GI normal to inspection, nondistended, normoactive bowel sounds, soft to palpation and non-tender Extremity normal to inspection, normal capillary refill, no clubbing, cyanosis or edema and no calf tenderness General Extremity: no tenderness to palpation of joints or extremities Skin General Skin Exam: no breakdown Neuro CN's II-XII intact bilaterally, moves all extremities, no focal motor deficits and no sensory deficits noted Sensorium / Orientation: alert, oriented to person and oriented to place Speech: Negative for speech normal Motor Exam: general weakness Psych thought process normal and cooperative Appearance: appropriate Assessment & Plan Assessment/Plan (1) MRSA bacteremia: (2) Change in mental status: (3) Fever of unknown origin: PLAN: Plan #MRSA bacteremia * Admitted with a complaint of fever of unknown origin as well as confusion. CT chest abdomen and pelvis did not show any evidence of any infection. * Started on IV vancomycin and Zosyn. * Blood cultures came back positive for gram-positive cocci in clusters. PCR showing MRSA. * 2D echo showed RVSP of 40 mmHg with EF of 50% and normal left ventricular size with mild to moderate tricuspid valve insufficiency and no regional wall motion abnormalities noted. * ID on board. * had ZAINAB today which was negative for any evidence of vegetation. * #Strokelike symptoms * Developed dysarthria overnight. CT of the brain showed no evidence of stroke. * Monitor NIH stroke scale. * on PO aspirin and high intensity statin * MRI of the brain was negative for any evidence of a stroke. * #Pancytopenia: WBC today is down to 2.4, with Hb of 11.3 and platelets of 81. Platelets are down from 100 yesterday. Will dc lovenox today. Thrombocytopenia may be due to the acute illness and bacteremia. #Type 2 diabetes mellitus: on ISS. Accuchecks ACHS #Hypertension:BP meds on hold to allow for permissive hypertension. 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 stable #LIAN: on CPAP qhs #Chronic back pain: has a spinal stimulator in situ. Follow with pain management on outpatient basis. DVT prophylaxis: lovenox; dc lovenox due to thrombocytopenia as platelets are down to 81 today. Start on SCDs. Charges/Coding Visit Charges Inpatient E&M: 05681 [facility]s Hosp L2
[2025-04-17] MEDS: Metoprolol(XL)Succ 50 MG Tablet PO (12:03)
--- NOTE | 2025-04-17 15:01 | PCM.PN.ID ---
Physical Exam Narrative Feeling better, no fever, had ZAINAB this AM, no n/v/d. Const alert and no apparent distress General Appearance: cooperative Resp normal air movement and clear to auscultation bilaterally Cardio regular rate and regular rhythm GI soft to palpation, non-tender and non-distended Skin no rashes or lesions noted ID ID: Route of nutrition/ use of supplements: [] Nutritional Intake: [] IV Site: [] Guzman Catheter: [] Assessment & Plan Assessment/Plan (1) MRSA bacteremia: PLAN: MRSA bacteremia, unclear source. No veg seen on ZAINAB, will repeat bcx. Cont vanc. Will follow (2) SIRS (systemic inflammatory response syndrome): (3) History of aortic valve replacement:
[2025-04-18] VITALS (9 sets, daily range): BP systolic 100–139; BP diastolic 43–83; PULSE 60–83; RESP 16–18; TEMP 36.4–37.2; O2SAT 93–100
[2025-04-18 05:48] LABS: Hematocrit 31.0 % (40-54); Hemoglobin 11.0 g/dL (13.0-16.5); Immature Granulocytes Count 0.010 X10^3/uL (0.0-0.0); Mean Corp Hgb Conc 35.5 g/dL (32-36); Mean Corpuscular Volume 87.3 fL (80-94); Mean Platelet Vol. 9.8 fl (6.2-12.0); NRBC Flagged by Analyzer 0 % (0-5); POSITIVE COUNT YES; POSITIVE MORPHOLOGY YES; Platelet Count 94 K/mm3 (150-450); RBC Distribution Width CV 12.5 % (11.6-14.6); RBC Distribution Width SD 40.5 fl (35.1-43.9); Red Blood Count 3.55 M/mm3 (4.6-6.2); White Blood Count 2.8 K/mm3 (4.4-11.0)
[2025-04-18 06:00] LABS: Differential Indicated SCAN CRITERIA MET
[2025-04-18 06:18] LABS: Anion Gap 11 (5-15); BUN 9 mg/dL (4-19); BUN/Creat Ratio 12.1 RATIO (10-20); Calcium,Total 8.5 mg/dL (7.6-11.0); Carbon Dioxide 22.2 mmol/L (21.0-32.0); Chloride 103 mmol/L (98-108); Estimated Creatinine Clearance 80.00 ml/min (50-250); Glucose 180 mg/dL (70-99); Potassium 3.9 mmol/L (3.3-5.1)
[2025-04-18 07:44] LABS: Anisocytosis 1+
[2025-04-18] MEDS: 0.9% Saline Lock 10 ML Syringe IV ×2 (09:27→21:57)
[2025-04-18] MEDS: Vancomycin HCl 1,000 MG in 0.9% Normal Saline (250mL Bag) 250 ML 250 MG IV ×2 (09:27→22:02)
[2025-04-18] MEDS: Metoprolol(XL)Succ 50 MG Tablet PO (09:56)
--- NOTE | 2025-04-18 10:28 | PCM.PN.ID ---
Physical Exam Narrative Feeling better, no fever, no new pain, no n/v/d. Const alert and no apparent distress General Appearance: cooperative Resp normal air movement and clear to auscultation bilaterally Cardio regular rate and regular rhythm GI soft to palpation, non-tender and non-distended Skin no rashes or lesions noted ID ID: Route of nutrition/ use of supplements: [] Nutritional Intake: [] IV Site: [] Guzman Catheter: [] Assessment & Plan Assessment/Plan (1) MRSA bacteremia: PLAN: MRSA bacteremia, unclear source. No veg seen on ZAINAB, so far repeat bcx since 04/16/25. Cont vanc. If bcx remain neg tomorrow, plan is for picc and 4 weeks iv vanc, stop date 05/14/25 with weekly labs. Will follow (2) SIRS (systemic inflammatory response syndrome): (3) History of aortic valve replacement:
--- NOTE | 2025-04-18 11:08 | CASEMGMT ---
Discharge Planning A list of?HH providers including quality and resource use data and consistent with the patient's preferred geographic region, medical needs, and insurance network was created in [facility] [facility].? This list was provided to the RN CLARA. Charo Carrillo, Discharge Planning Asst.
--- NOTE | 2025-04-18 11:26 | CASEMGMT ---
CARL ELIZABETH updated by infectious disease that patient will need IV ATBs at discharge. CARL CM in to discuss needs at discharge. Patient wishes to complete IV ATBs at home with [facility]. CARL ELIZABETH provided patient with list of [facility] agencies, patient prefers [facility]. CARL ELIZABETH review infusion companies and patient prefers [facility]. Discharge anticipated for tomorrow. Patient had no further questions or concerns. CARL ELIZABETH made referral to [facility], awaiting acceptance. CARL ELIZABETH [facility] to [facility]. CM will continue to follow this patient and plan for a safe discharge.
--- NOTE | 2025-04-18 11:27 | PN_ITS ---
Subjective Subjective Patient seen and examined. He had no complaints this morning and had an uneventful night. Review of systems is otherwise negative. He has remained hemodynamically stable. ZAINAB yesterday was negative for any evidence of vegetation. Objective Data Objective Data Vital Signs: Vital Signs Temp Pulse Resp BP Pulse Ox O2 Del Method O2 Flow Rate 98.4 F 73 18 139/54 H 95 Room Air 2 04/18/25 09:53 04/18/25 09:56 04/18/25 09:53 04/18/25 09:53 04/18/25 09:53 04/18/25 09:57 04/17/25 00:03 Oxygen Flow Rate (L/min) 2 Oxygen Delivery Method Room Air Weight: 185 lb 13.595 oz Body Mass Index (BMI) 29.9 Intake & Output: Intake and Output for Last 24 Hours 04/16/25 04/17/25 04/18/25 23:59 23:59 23:59 Intake Total 3663.33 / 3663.33 1802.42 / 1802.42 270 / 270 Output Total 3500 / 3500 3650 / 5400 2700 / 2700 Balance 163.33 / 163.33 -1847.58 / -3597.58 -2430 / -2430 Lab / Micro Data 04/18/25 05:13 04/18/25 05:13 Labs: Laboratory Results - last 24 hr 04/17/25 11:52: POC Glucose 167 H 04/17/25 16:26: POC Glucose 169 H 04/17/25 21:28: POC Glucose 165 H 04/18/25 05:13: WBC 2.8 L, RBC 3.55 L, Hgb 11.0 L, Hct 31.0 L, MCV 87.3, MCH 31.0, MCHC 35.5, RDW Std Deviation 40.5, RDW Coeff of Liang 12.5, Plt Count 94 L, MPV 9.8, Immature Gran % (Auto) 0.400, Neut % (Auto) 48.3, Lymph % (Auto) 25.8, Crosby % (Auto) 20.4 H, Eos % (Auto) 4.7, Baso % (Auto) 0.4, Absolute Neuts (auto) 1.3 L, Absolute Lymphs (auto) 0.71 L, Nucleated RBC % 0, Platelet Estimate SLT DEC, Anisocytosis 1+, Sodium 136, Potassium 3.9, Chloride 103, Carbon Dioxide 22.2, Anion Gap 11, BUN 9, Creatinine 0.76, Estim Creat Clear Calc 80.00, Est GFR (MDRD) Non-Af 93, BUN/Creatinine Ratio 12.1, Glucose 180 H, Calcium 8.5 04/18/25 06:24: POC Glucose 178 H Micro: Microbiology 04/15/25 14:50 Blood Culture (Wb) - Anticubital Left Blood Culture - Final Staphylococcus aureus 04/15/25 14:36 Blood Culture (Wb) - Anticubital Right Bacteria Detection (PCR) - Final Meth. resistant Staph. aureus mecA Resistance Marker 04/15/25 14:36 Blood Culture (Wb) - Anticubital Right Blood Culture - Final Meth. resistant Staph. aureus 04/15/25 15:05 Urine, Catheterized Urine Culture - Final Culture exhibits no growth. 04/15/25 22:00 Mucosa - Nasopharyngeal Respiratory Panel (PCR) - Final 04/15/25 15:05 Mucosa - Nose SARS-CoV-2, Influenza & RSV (PCR) - Final Physical Exam Const alert, oriented x3 and no apparent distress General Appearance: cooperative Orientation / Consciousness: confused HEENT normocephalic, head/scalp atraumatic, moist oral mucous membranes, oropharynx normal and gingiva normal Eyes PERRL and EOMs intact bilaterally Neck no lymphadenopathy and supple Lymph Lymphatic: no lymphedema noted Resp normal respiratory effort, normal air movement, no use of accessory muscles and clear to auscultation bilaterally Cardio regular rate, regular rhythm, S1 normal heart sound, S2 normal heart sound and no murmurs GI normal to inspection, nondistended, normoactive bowel sounds, soft to palpation and non-tender Extremity normal to inspection, normal capillary refill, no clubbing, cyanosis or edema and no calf tenderness General Extremity: no tenderness to palpation of joints or extremities Skin General Skin Exam: no breakdown Neuro CN's II-XII intact bilaterally, moves all extremities, no focal motor deficits and no sensory deficits noted Sensorium / Orientation: alert, oriented to person and oriented to place Motor Exam: general weakness Psych thought process normal and cooperative Appearance: appropriate Assessment & Plan Assessment/Plan (1) MRSA bacteremia: (2) Change in mental status: (3) Fever of unknown origin: PLAN: Plan #MRSA bacteremia * Admitted with a complaint of fever of unknown origin as well as confusion. CT chest abdomen and pelvis did not show any evidence of any infection. * Started on IV vancomycin and Zosyn. * Blood cultures came back positive for MRSA. PCR showing MRSA. * 2D echo showed RVSP of 40 mmHg with EF of 50% and normal left ventricular size with mild to moderate tricuspid valve insufficiency and no regional wall motion abnormalities noted. * ID on board. * had ZAINAB on 04/18/2025 which was negative for any evidence of vegetation. * repeat blood cultures pending. Cardiology on board. * #Strokelike symptoms * Developed dysarthria overnight. CT of the brain showed no evidence of stroke. * Monitor NIH stroke scale. * on PO aspirin and high intensity statin * MRI of the brain was negative for any evidence of a stroke. * #Pancytopenia: WBC today is up to 2.8, with Hb of 11 and platelets up to 94, up from 81 yesterday. Pancytopenia may be due to the acute illness and bacteremia. #Type 2 diabetes mellitus: on ISS. 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 stable #LIAN: on CPAP qhs #Chronic back pain: has a spinal stimulator in situ. Follow with pain management on outpatient basis. DVT prophylaxis: SCDs o/a of thrombocytonepnia Charges/Coding Visit Charges Inpatient E&M: 48814 Subs Hosp L2
[2025-04-18 21:27] LABS: Vancomycin, Trough Level 12.3 ug/mL (5.0-15.0)
--- NOTE | 2025-04-18 21:31 | PCM.RX.CS ---
Consult Antibiotic Management Pharmacy has been consulted to manage selected antibiotic: Vancomycin Type of Intervention Type of Consult: Follow-up Labs Labs: Sodium 136 mmol/L (133-145) 04/18/25 05:13 Potassium 3.9 mmol/L (3.3-5.1) 04/18/25 05:13 Chloride 103 mmol/L (98-108) 04/18/25 05:13 Carbon Dioxide 22.2 mmol/L (21.0-32.0) 04/18/25 05:13 Anion Gap 11 (5-15) 04/18/25 05:13 BUN 9 mg/dL (4-19) 04/18/25 05:13 Creatinine 0.76 mg/dL (0.70-1.20) 04/18/25 05:13 Est GFR (MDRD) Non-Af 93 (>60) 04/18/25 05:13 BUN/Creatinine Ratio 12.1 RATIO (10-20) 04/18/25 05:13 Glucose 180 mg/dL (70-99) H 04/18/25 05:13 Vancomycin Trough 12.3 ug/mL (5.0-15.0) 04/18/25 20:40 Microbiology Microbiology: Microbiology 04/16/25 10:50 Blood Culture (Wb) - Right Hand Blood Culture - Preliminary No growth in 48 hours. 04/15/25 14:50 Blood Culture (Wb) - Anticubital Left Blood Culture - Final Staphylococcus aureus 04/15/25 14:36 Blood Culture (Wb) - Anticubital Right Bacteria Detection (PCR) - Final Meth. resistant Staph. aureus mecA Resistance Marker 04/15/25 14:36 Blood Culture (Wb) - Anticubital Right Blood Culture - Final Meth. resistant Staph. aureus 04/15/25 15:05 Urine, Catheterized Urine Culture - Final Culture exhibits no growth. 04/15/25 22:00 Mucosa - Nasopharyngeal Respiratory Panel (PCR) - Final 04/15/25 15:05 Mucosa - Nose SARS-CoV-2, Influenza & RSV (PCR) - Final Goal Trough Goal Trough: 10-15 mcg/mL Pharmacy Plan for Drug Dosing Pharmacy Plan for Drug Dosing: Pharmacy Service will continue to monitor and adjust dosing as required. TROUGH 12.3 @ 11 HOURS. NO CHANGES, FOLLOW UP TROUGH IN 2 DAYS Follow-Up Labs Follow-Up Labs: Trough: Vancomycin Date/Time Labs Ordered Labs to be done on [date and time ordered]: 04/20 @ 2030
[2025-04-19 03:54] VITALS: BP 113/39; PULSE 76; RESP 14; TEMP 36.5; O2SAT 97
[2025-04-19 05:43] LABS: Hematocrit 31.5 % (40-54); Hemoglobin 11.4 g/dL (13.0-16.5); Immature Granulocytes Count 0.010 X10^3/uL (0.0-0.0); Mean Corp Hgb Conc 36.2 g/dL (32-36); Mean Corpuscular Volume 87.5 fL (80-94); Mean Platelet Vol. 9.4 fl (6.2-12.0); NRBC Flagged by Analyzer 0 % (0-5); Platelet Count 109 K/mm3 (150-450); RBC Distribution Width CV 12.7 % (11.6-14.6); RBC Distribution Width SD 40.7 fl (35.1-43.9); Red Blood Count 3.60 M/mm3 (4.6-6.2); White Blood Count 3.6 K/mm3 (4.4-11.0)
[2025-04-19 05:46] VITALS: BP 107/62
[2025-04-19 06:57] LABS: Anion Gap 12 (5-15); BUN 10 mg/dL (4-19); BUN/Creat Ratio 12.7 RATIO (10-20); Calcium,Total 9.0 mg/dL (7.6-11.0); Carbon Dioxide 23.6 mmol/L (21.0-32.0); Chloride 102 mmol/L (98-108); Estimated Creatinine Clearance 78.05 ml/min (50-250); Glucose 238 mg/dL (70-99); Potassium 3.9 mmol/L (3.3-5.1)
[2025-04-19 10:07] VITALS: BP 136/61; PULSE 76; RESP 16; TEMP 36.9; O2SAT 95
[2025-04-19 10:12] VITALS: BP 136/61; PULSE 76
[2025-04-19] MEDS: Metoprolol(XL)Succ 50 MG Tablet PO (10:12)
--- NOTE | 2025-04-19 10:13 | PCM.PN.ID ---
Physical Exam Narrative Feeling fine, no fever, no n/v/d. Const alert and no apparent distress General Appearance: cooperative Resp normal air movement and clear to auscultation bilaterally Cardio regular rate and regular rhythm GI soft to palpation, non-tender and non-distended Skin No no rashes or lesions noted ID ID: Route of nutrition/ use of supplements: [] Nutritional Intake: [] IV Site: [] Guzman Catheter: [] Assessment & Plan Assessment/Plan (1) MRSA bacteremia: PLAN: MRSA bacteremia, unclear source. No veg seen on ZAINAB, so far repeat bcx since 04/16/25. Cont vanc. Bcx remain neg, will order picc and 4 weeks iv vanc, stop date 05/14/25 with weekly labs. ID followup in 2 weeks Will follow (2) SIRS (systemic inflammatory response syndrome): (3) History of aortic valve replacement:
--- NOTE | 2025-04-19 10:17 | CASEMGMT ---
Addendum entered by Ariana Simon 04/19/25 15:29: CARL ELIZABETH confirmed with [facility] that medications are being delivered this evening. CARL ELIZABETH sent PICC report via careport. Patient needing walker at discharge. CARL ELIZABETH received script, patient prefers [facility] for DME. Patient denies further needs or concerns. CARL ELIZABETH received script for walker, walker provided from [facility] stock and referral sent via careport. CARL ELIZABETH updated discharge plan. Original Note: CARL ELIZABETH update by [facility] that patient has been accepted and plan of care is planned for this evening. CARL ELIZABETH received notification that ID order PICC line for today. CARL ELIZABETH updated by [facility] that they spoke with regarding financials and can sending medication for evening start of care. CARL ELIZABETH sent Vanco trough information to [facility] via [facility]port, will send PICC info when available. CARL ELIZABETH updated hospiatlist that IV ATBs and HHC have been setup and patient can discharge today.
[2025-04-19] MEDS: 0.9% Saline Lock 10 ML Syringe IV (10:18)
[2025-04-19] MEDS: Vancomycin HCl 1,000 MG in 0.9% Normal Saline (250mL Bag) 250 ML 250 MG IV (10:20)
--- NOTE | 2025-04-19 10:21 | PN_ITS ---
Subjective Subjective Patient seen and examined with his nurse by his bedside. He had no active complaints. Review of systems is otherwise negative. He has remained hemodynamically stable. Repeat blood cultures are pending. Objective Data Objective Data Vital Signs: Vital Signs Temp Pulse Resp BP Pulse Ox O2 Del Method O2 Flow Rate 98.4 F 76 16 136/61 H 95 Room Air 2 04/19/25 10:07 04/19/25 10:07 04/19/25 10:07 04/19/25 10:07 04/19/25 10:07 04/19/25 10:07 04/17/25 00:03 Oxygen Flow Rate (L/min) 2 Oxygen Delivery Method Room Air Weight: 185 lb 13.595 oz Body Mass Index (BMI) 29.9 Intake & Output: Intake and Output for Last 24 Hours 04/17/25 04/18/25 04/19/25 23:59 23:59 23:59 Intake Total 1802.42 / 1802.42 540 / 540 0 / 0 Output Total 3650 / 5400 3300 / 4325 2225 / 2225 Balance -1847.58 / -3597.58 -2760 / -3785 -2225 / -2225 Lab / Micro Data 04/19/25 04:57 04/19/25 04:57 Labs: Laboratory Results - last 24 hr 04/18/25 11:44: POC Glucose 259 H 04/18/25 20:40: Vancomycin Trough 12.3 04/18/25 21:51: POC Glucose 260 H 04/19/25 04:57: WBC 3.6 L, RBC 3.60 L, Hgb 11.4 L, Hct 31.5 L, MCV 87.5, MCH 31.7, MCHC 36.2 H, RDW Std Deviation 40.7, RDW Coeff of Liang 12.7, Plt Count 109 L, MPV 9.4, Immature Gran % (Auto) 0.300, Neut % (Auto) 44.8 L, Lymph % (Auto) 30.1, Stafford % (Auto) 17.7 H, Eos % (Auto) 6.5 H, Baso % (Auto) 0.6, Absolute Neuts (auto) 1.6 L, Absolute Lymphs (auto) 1.07, Nucleated RBC % 0, Sodium 137, Potassium 3.9, Chloride 102, Carbon Dioxide 23.6, Anion Gap 12, BUN 10, Creatinine 0.82, Estim Creat Clear Calc 78.05, Est GFR (MDRD) Non-Af 91, BUN/Creatinine Ratio 12.7, Glucose 238 H, Calcium 9.0 04/19/25 05:42: POC Glucose 234 H Micro: Microbiology 04/16/25 10:50 Blood Culture (Wb) - Right Hand Blood Culture - Preliminary No growth in 48 hours. 04/15/25 14:50 Blood Culture (Wb) - Anticubital Left Blood Culture - Final Staphylococcus aureus 04/15/25 14:36 Blood Culture (Wb) - Anticubital Right Bacteria Detection (PCR) - Final Meth. resistant Staph. aureus mecA Resistance Marker 04/15/25 14:36 Blood Culture (Wb) - Anticubital Right Blood Culture - Final Meth. resistant Staph. aureus 04/15/25 15:05 Urine, Catheterized Urine Culture - Final Culture exhibits no growth. 04/15/25 22:00 Mucosa - Nasopharyngeal Respiratory Panel (PCR) - Final 04/15/25 15:05 Mucosa - Nose SARS-CoV-2, Influenza & RSV (PCR) - Final Physical Exam Const alert, oriented x3 and no apparent distress General Appearance: cooperative Orientation / Consciousness: confused HEENT normocephalic, head/scalp atraumatic, moist oral mucous membranes, oropharynx normal and gingiva normal Eyes PERRL and EOMs intact bilaterally Neck no lymphadenopathy and supple Lymph Lymphatic: no lymphedema noted Resp normal respiratory effort, normal air movement, no use of accessory muscles and clear to auscultation bilaterally Cardio regular rate, regular rhythm, S1 normal heart sound, S2 normal heart sound and no murmurs GI normal to inspection, nondistended, normoactive bowel sounds, soft to palpation and non-tender Extremity normal to inspection, normal capillary refill, no clubbing, cyanosis or edema and no calf tenderness General Extremity: no tenderness to palpation of joints or extremities Skin General Skin Exam: no breakdown Neuro CN's II-XII intact bilaterally, moves all extremities, no focal motor deficits and no sensory deficits noted Sensorium / Orientation: alert, oriented to person and oriented to place Motor Exam: general weakness Psych thought process normal and cooperative Appearance: appropriate Assessment & Plan Assessment/Plan (1) MRSA bacteremia: (2) Change in mental status: (3) Fever of unknown origin: PLAN: Plan #MRSA bacteremia * Admitted with a complaint of fever of unknown origin as well as confusion. CT chest abdomen and pelvis did not show any evidence of any infection. * Started on IV vancomycin and Zosyn. * Blood cultures came back positive for MRSA. PCR showing MRSA. * 2D echo showed RVSP of 40 mmHg with EF of 50% and normal left ventricular size with mild to moderate tricuspid valve insufficiency and no regional wall motion abnormalities noted. * ID on board. * had ZAINAB on 04/18/2025 which was negative for any evidence of vegetation. * repeat blood cultures pending. ID on board. * #Strokelike symptoms * Developed dysarthria during this admission. CT of the brain showed no evidence of stroke. * Monitor NIH stroke scale. * on PO aspirin and high intensity statin * MRI of the brain was negative for any evidence of a stroke. * #Pancytopenia: WBC today is up to 3.6 today, with Hb of 11.4 and platelets up to 109. It is improving. Will monitor closely. Pancytopenia may be due to the acute illness and bacteremia. #Type 2 diabetes mellitus: on ISS. 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 stable #LIAN: on CPAP qhs #Chronic back pain: has a spinal stimulator in situ. Follow with pain management on outpatient basis. DVT prophylaxis: SCDs o/a of thrombocytonepnia Charges/Coding Visit Charges Inpatient E&M: 83274 Subs Hosp L2
[2025-04-19 14:01] VITALS: BP 123/81; PULSE 65; RESP 16; TEMP 36.8; O2SAT 97
--- NOTE | 2025-04-19 14:36 | DCINST_ITS ---
Discharge Instructions DC O2, CPAP, BIPAP needs Home O2 Discharge instructions: No Dressing / Incision Discharge Activity: Return to Normal Activity Dressing / Incision Call your doctor if you observe: Fever of 101 or Higher, Shortness of breath, Dizziness, Swelling in the ankles and Chest pain Follow Up Care Test Results: Test results from this visit will be discussed in further detail at your follow- up appointment, if applicable. Discharge Plan Admission Admit Date/Time: 04/15/25 19:38 Primary Reason for Your Visit: MRSA bacteremia Attending Provider: Margarita Harris Primary Care Provider: Mike Flores Consulting Providers: Debora Diaz; Alex Gonzales Instructions Patient Instructions: MRSA, ED Bacteremia, Suspected (Adult) Discharge Orders/Prescriptions Prescriptions: New vancomycin 1,000 mg recon soln 1,000 mg IV Q12H 25 Days Qty: 50 0RF Rx Instructions: stop date 05/14/25. Dx: MRSA bacteremia. Weekly bmp, cbc, and vanc trough. Fax to [phone]. Routine picc care per protocol. Continued hydroxychloroquine 200 mg tablet 200 mg PO DAILY gabapentin 400 mg capsule 400 mg PO TID multivitamin Tablet 1 tab PO DAILY atorvastatin 20 mg tablet 20 mg PO QHS metoprolol succinate 50 mg tablet extended release 24 hr 50 mg PO QDAY metformin 500 MG tablet 1,000 mg PO BIDCM Patient Comments: diabetes tamsulosin 0.4 MG capsule 0.4 mg PO QHS Patient Comments: bladder aspirin 81 MG tablet,chewable 81 mg PO DAILY Patient Comments: heart health tramadol 50 MG tablet 50 mg PO Q6H PRN PRN (Reason: Pain Or Fever) metoprolol succinate 100 mg tablet extended release 24 hr 50 mg PO DAILY celecoxib [Celebrex] 200 mg capsule 200 mg PO BID Referrals / Follow Up: Mike Flores MD [Primary Care Provider] - Within 1 Week Alex Gonzales MD [Med Staff - Active Staff] - Within 2 Weeks Disposition Disposition (needs filled in before D/C Order can be placed): Home, Self Care
--- NOTE | 2025-04-19 14:37 | DS.PCM_ITS ---
Providers Date of Admission: 04/15/25 Date of Discharge: 04/19/25 Primary Care Physician: Dr. Mike Flores MD Consultations 04/15/25 20:15 Consult: Infectious Disease Routine Consulting Provider: Alex Gonzales Reason for Consult: fever of unknown origin up to 104 EMERGENT Consult: No MD Notified: Yes Date Notified: 04/16/25 Time Notified: 06:57 Method of Notification: Text Reason For Visit: HIGH FEVER, METABOLIC ENCEPHALOPATHY Diagnosis Discharge Diagnosis (1) MRSA bacteremia: Status: Acute Code(s): R78.81 - Bacteremia; B95.62 - Methicillin resistant Staphylococcus aureus infection as the cause of diseases classified elsewhere (2) Change in mental status: Status: Acute Code(s): R41.82 - Altered mental status, unspecified (3) Fever of unknown origin: Status: Acute Code(s): R50.9 - Fever, unspecified Plan #MRSA bacteremia * Admitted with a complaint of fever of unknown origin as well as confusion. CT chest abdomen and pelvis did not show any evidence of any infection. * Started on IV vancomycin and Zosyn. * Blood cultures came back positive for MRSA. PCR showing MRSA. * 2D echo showed RVSP of 40 mmHg with EF of 50% and normal left ventricular size with mild to moderate tricuspid valve insufficiency and no regional wall motion abnormalities noted. * ID on board. * had ZAINAB on 04/18/2025 which was negative for any evidence of vegetation. * repeat blood cultures pending. ID on board. * #Strokelike symptoms * Developed dysarthria during this admission. CT of the brain showed no evidence of stroke. * Monitor NIH stroke scale. * on PO aspirin and high intensity statin * MRI of the brain was negative for any evidence of a stroke. * #Pancytopenia: WBC today is up to 3.6 today, with Hb of 11.4 and platelets up to 109. It is improving. Will monitor closely. Pancytopenia may be due to the acute illness and bacteremia. #Type 2 diabetes mellitus: on ISS. 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 stable #LIAN: on CPAP qhs #Chronic back pain: has a spinal stimulator in situ. Follow with pain management on outpatient basis. DVT prophylaxis: SCDs o/a of thrombocytonepnia Medications at Discharge Home Medications aspirin 81 mg chewable tablet 81 mg PO DAILY heart health 11/21/16 metformin 500 mg tablet 1,000 mg PO BIDCM diabetes 11/21/16 tamsulosin 0.4 mg capsule 0.4 mg PO QHS BPH 11/21/16 gabapentin 400 mg capsule 400 mg PO TID 02/28/20 hydroxychloroquine 200 mg tablet 200 mg PO DAILY 02/28/20 tramadol 50 mg tablet 50 mg PO Q6H PRN PRN Pain Or Fever 05/29/20 multivitamin 1 tab PO DAILY Supplement 06/09/20 celecoxib 200 mg capsule (Celebrex) 200 mg PO BID 06/27/20 atorvastatin 20 mg tablet 20 mg PO QHS 12/22/20 metoprolol succinate 50 mg tablet,extended release 24 hr 50 mg PO QDAY 05/31/24 metoprolol succinate 100 mg tablet,extended release 24 hr 50 mg PO DAILY 04/15/25 vancomycin 1,000 mg intravenous injection 1,000 mg IV Q12H 25 days #50 ea 04/18/25 Hospital Course Operations None Procedures 2-D Echocardiogram and Transesophageal Echo Summary of Care Provided Minutes Spent on Discharge: 45 Hospital Course: Patient is a 74-year-old male with extensive past medical history as outlined including mechanical aortic valve replacement who was admitted through the ED on 04/15/2025 with a complaint of confusion, shakes and sweats which started the night before admission. He had associated confusion. In the ED he was febrile and tachycardic and he was breathing at 18 with pulse ox of 95% on room air. CBC showed WBC of 3.1 with hemoglobin of 12.6 and platelets of 100. Chemistry essentially unremarkable urinalysis did not show any evidence of UTI. Chest x- ray showed no acute cardiopulmonary pathology. Lactic acid was 1.6. Blood and urine cultures were ordered and he was started on IV vancomycin and Zosyn. CT of the chest abdomen and pelvis showed only some inflammatory changes in the right lower lobe but no other acute pathology. He was therefore admitted to be managed for fever of unknown origin. ID was consulted. Stroke alert was called during the admission as in the evening of the day of admission he was found to be dysarthric and more confused. CT of the brain showed no evidence of stroke and MRI of the brain also showed no evidence of stroke. CTA of the head and neck showed no hemodynamically significant stenosis. Blood cultures came back positive for MRSA. 2D echo done showed no evidence of vegetation. He did have a ZAINAB also which showed no evidence of vegetation. ID was consulted. His repeat blood cultures were negative. Patient symptoms improved and he felt much better. He was therefore discharged home on 04/19/2025 on IV vancomycin for a 6- week course with stop date of 05/14/2025. He is to have weekly CBC, BMP and Vanco trough to be sent to the ID doctor's office. Patient seen and examined prior to discharge. He had no active complaints. He had an uneventful night. Review of systems otherwise negative. Labs and vitals reviewed. Home medication reviewed and reconciled. Physical Exam Const alert, oriented x3 and no apparent distress General Appearance: cooperative and comfortable Orientation / Consciousness: confused HEENT normocephalic, head/scalp atraumatic, hearing grossly normal bilaterally, moist oral mucous membranes, oropharynx normal and gingiva normal Mouth: oral and palatal mucosa normal Eyes PERRL and EOMs intact bilaterally Neck no lymphadenopathy and supple Lymph Lymphatic: no lymphedema noted Resp normal respiratory effort, normal air movement, no use of accessory muscles and clear to auscultation bilaterally Cardio regular rate, regular rhythm, S1 normal heart sound, S2 normal heart sound and no murmurs GI normal to inspection, nondistended, normoactive bowel sounds, soft to palpation and non-tender Extremity normal to inspection, normal capillary refill, no clubbing, cyanosis or edema and no calf tenderness General Extremity: no tenderness to palpation of joints or extremities Skin General Skin Exam: no breakdown Neuro oriented x3, CN's II-XII intact bilaterally, moves all extremities, no focal motor deficits and no sensory deficits noted Sensorium / Orientation: alert, oriented to person and oriented to place Motor Exam: general weakness Psych thought process normal and cooperative Appearance: appropriate Weight / BMI Weight Weight: 185 lb 13.595 oz Body Mass Index (BMI) 29.9 ABG / Lab / Microbiology Data 04/19/25 04:57 04/19/25 04:57 Laboratory: Laboratory Results - last 24 hr 04/18/25 20:40: Vancomycin Trough 12.3 04/18/25 21:51: POC Glucose 260 H 04/19/25 04:57: WBC 3.6 L, RBC 3.60 L, Hgb 11.4 L, Hct 31.5 L, MCV 87.5, MCH 31.7, MCHC 36.2 H, RDW Std Deviation 40.7, RDW Coeff of Liang 12.7, Plt Count 109 L, MPV 9.4, Immature Gran % (Auto) 0.300, Neut % (Auto) 44.8 L, Lymph % (Auto) 30.1, [place] % (Auto) 17.7 H, Eos % (Auto) 6.5 H, Baso % (Auto) 0.6, Absolute Neuts (auto) 1.6 L, Absolute Lymphs (auto) 1.07, Nucleated RBC % 0, Sodium 137, Potassium 3.9, Chloride 102, Carbon Dioxide 23.6, Anion Gap 12, BUN 10, Creatinine 0.82, Estim Creat Clear Calc 78.05, Est GFR (MDRD) Non-Af 91, BUN/Creatinine Ratio 12.7, Glucose 238 H, Calcium 9.0 04/19/25 05:42: POC Glucose 234 H 04/19/25 11:32: POC Glucose 221 H Microbiology: Microbiology 04/16/25 10:50 Blood Culture (Wb) - Right Hand Blood Culture - Preliminary No growth in 48 hours. 04/15/25 14:50 Blood Culture (Wb) - Anticubital Left Blood Culture - Final Staphylococcus aureus 04/15/25 14:36 Blood Culture (Wb) - Anticubital Right Bacteria Detection (PCR) - Final Meth. resistant Staph. aureus mecA Resistance Marker 04/15/25 14:36 Blood Culture (Wb) - Anticubital Right Blood Culture - Final Meth. resistant Staph. aureus 04/15/25 15:05 Urine, Catheterized Urine Culture - Final Culture exhibits no growth. 04/15/25 22:00 Mucosa - Nasopharyngeal Respiratory Panel (PCR) - Final 04/15/25 15:05 Mucosa - Nose SARS-CoV-2, Influenza & RSV (PCR) - Final D/C Instructions Discharge Activity: Return to Normal Activity Weight Bearing Status: Weight bearing as tolerated Call your doctor if you observe: Fever of 101 or Higher, Shortness of breath, Dizziness, Swelling in the ankles and Chest pain DC O2, CPAP, BIPAP Needs Home O2 Discharge instructions: No Meaningful Use Info Meaningful Use Meaningful Use Diagnoses (Choose all that apply): None applicable Discharge Plan Admission Admit Date/Time: 04/15/25 19:38 Primary Reason for Your Visit: MRSA bacteremia Attending Provider: Margarita Harris Primary Care Provider: Mike Flores Consulting Providers: Debora Diaz; Alex Gonzales Instructions Patient Instructions: MRSA, ED Bacteremia, Suspected (Adult) Discharge Orders/Prescriptions Prescriptions: New vancomycin 1,000 mg recon soln 1,000 mg IV Q12H 25 Days Qty: 50 0RF Rx Instructions: stop date 05/14/25. Dx: MRSA bacteremia. Weekly bmp, cbc, and vanc trough. Fax to [phone]. Routine picc care per protocol. Continued hydroxychloroquine 200 mg tablet 200 mg PO DAILY gabapentin 400 mg capsule 400 mg PO TID multivitamin Tablet 1 tab PO DAILY atorvastatin 20 mg tablet 20 mg PO QHS metoprolol succinate 50 mg tablet extended release 24 hr 50 mg PO QDAY metformin 500 MG tablet 1,000 mg PO BIDCM Patient Comments: diabetes tamsulosin 0.4 MG capsule 0.4 mg PO QHS Patient Comments: bladder aspirin 81 MG tablet,chewable 81 mg PO DAILY Patient Comments: heart health tramadol 50 MG tablet 50 mg PO Q6H PRN PRN (Reason: Pain Or Fever) metoprolol succinate 100 mg tablet extended release 24 hr 50 mg PO DAILY celecoxib [Celebrex] 200 mg capsule 200 mg PO BID Referrals / Follow Up: Mike Flores MD [Primary Care Provider] - Within 1 Week Alex Gonzales MD [Med Staff - Active Staff] - Within 2 Weeks Disposition Disposition (needs filled in before D/C Order can be placed): Home, Self Care Charges/Coding Visit Charges Inpatient E&M: 72048 Disch Hosp >30min
--- NOTE | 2025-04-19 20:24 | NURSING ---
Patients called in with questions about medication delivery with home health. Information given to contact home health.
== END 2025-04-19 16:12 | disposition home or self-care (01) | DRG 871 ==
LOC: ED 17:56 → PCU 19:41
PROVIDERS: Admitting Provider Internal Medicine; Emergency Provider Emergency Medicine; PCP Family Medicine; Visit Provider Student in an Organized Health Care Education/Training Program
DX: R78.81 Bacteremia (principal); G93.41 Metabolic encephalopathy; N13.8 Other obstructive and reflux uropathy; D61.818 Other pancytopenia; E11.65 Type 2 diabetes mellitus with hyperglycemia; B95.62 Methicillin resistant Staphylococcus aureus infection as the cause of diseases classified elsewhere; I10 Essential (primary) hypertension; Z95.2 Presence of prosthetic heart valve; E78.5 Hyperlipidemia, unspecified; I25.10 Atherosclerotic heart disease of native coronary artery without angina pectoris; G47.33 Obstructive sleep apnea (adult) (pediatric); N40.1 Benign prostatic hyperplasia with lower urinary tract symptoms; G89.29 Other chronic pain; R47.1 Dysarthria and anarthria; Z96.82 Presence of neurostimulator; Z95.1 Presence of aortocoronary bypass graft; Z79.1 Long term (current) use of non-steroidal anti-inflammatories (NSAID); Z79.82 Long term (current) use of aspirin; Z79.84 Long term (current) use of oral hypoglycemic drugs; Z79.899 Other long term (current) drug therapy; Z87.891 Personal history of nicotine dependence
CPT/HCPCS: 36415; 36569; 51702; 70450; 70496; 70498; 70551; 71045; 71260; 74177; 80048; 80053; 80202; 81001; 82962; 83605; 85025; 85610; 85730; 87040; 87077; 87086; 87149; 87186; 87631; 87633; 93005; 93308; 93312; 93320; 93325; 94002; 94003; 94660; 94668; 94762; 97162; 97166; 99285; Q9957; Q9967; A4216

== ENCOUNTER → 2025-04-23 | Outpatient (CLI) | payer MEDICARE, SELFPAY ==
[2025-04-23 10:13] LABS: Hematocrit 33.1 % (40-54); Hemoglobin 11.6 g/dL (13.0-16.5); Mean Corp Hgb Conc 35.0 g/dL (32-36); Mean Corpuscular Volume 88.0 fL (80-94); Mean Platelet Vol. 9.4 fl (6.2-12.0); Platelet Count 236 K/mm3 (150-450); RBC Distribution Width CV 12.8 % (11.6-14.6); RBC Distribution Width SD 40.5 fl (35.1-43.9); Red Blood Count 3.76 M/mm3 (4.6-6.2); White Blood Count 6.7 K/mm3 (4.4-11.0)
[2025-04-23 10:29] LABS: Anion Gap 11 (5-15); BUN 16 mg/dL (4-19); BUN/Creat Ratio 17.1 RATIO (10-20); Calcium,Total 9.6 mg/dL (7.6-11.0); Carbon Dioxide 25.1 mmol/L (21.0-32.0); Chloride 99 mmol/L (98-108); Glucose 138 mg/dL (70-99); Potassium 4.1 mmol/L (3.3-5.1); Vancomycin, Trough Level 16.9 ug/mL (5.0-15.0)
== END | disposition home or self-care (01) ==
LOC: LABSPEC 09:42 → HHLAB 10:09
PROVIDERS: PCP Family Medicine; Referring Provider Internal Medicine Infectious Disease; Visit Provider Internal Medicine Infectious Disease
DX: R78.81 Bacteremia (principal); B95.62 Methicillin resistant Staphylococcus aureus infection as the cause of diseases classified elsewhere
CPT/HCPCS: 80048; 80202; 85027

== ENCOUNTER 2025-05-11 10:22 | Emergency (ER) | payer MEDICARE, SELFPAY ==
[2025-05-11 10:22] VITALS: BP 167/86; PULSE 84; RESP 14; TEMP 37.2; O2SAT 98
[2025-05-11 10:24] VITALS: BP 155/82; PULSE 82; RESP 16; TEMP 36.5; O2SAT 98; BMI 30.4
--- NOTE | 2025-05-11 10:35 | EDS_ITS ---
HPI History of Present Illness Chief Complaint: Flank Pain Informant: patient Narrative Narrative: 74-year-old male presenting for colicky/intermittent pain in his left low back radiating into the flank for the past 4-5 days. No abdominal pain. No nausea, vomiting, diarrhea, fevers, chills. Denies any urinary symptoms or hematuria. He states it seems to be worse when he gets his doses of IV antibiotics and his PICC that he shows me in his right upper extremity. When asked why he has this, he states it is for antibiotics and he was diagnosed with MRSA and cannot tell me any other details about the history. States he was at this hospital, states he did not feel well and came to the ER in the next and he remembers he was in the hospital and then discharged with a PICC. [facility] Medical History MRSA bacteremia Type 2 diabetes mellitus with hyperglycemia SIRS (systemic inflammatory response syndrome) Right carotid bruit History of tenosynovitis Former smoker H/O methicillin resistant Staphylococcus aureus infection Arthritis Swelling of joint of left hand Hearing problem Cataracts, bilateral Back problem Arthritis HLD (hyperlipidemia) Hyponatremia Near syncope Lightheaded Chest wall pain Postoperative atrial fibrillation Atherosclerotic heart disease of [place] coronary artery without angina pectoris Pericardial effusion Fever Chest pain Multi-vessel coronary artery stenosis Dyspnea on exertion Abnormal echocardiogram Nonrheumatic aortic (valve) stenosis Intractable back pain Benign prostatic hypertrophy Physical debility Pain Asthmatic bronchitis with exacerbation Obstructive sleep apnea syndrome Obesity Type II diabetes mellitus Benign essential hypertension Home Medications ?Medication ?Instructions ?Recorded ?Last Taken ?Type aspirin 81 mg chewable tablet 81 mg PO DAILY heart hea lth 11/21/16 03/18/20 History metformin 500 mg tablet 1,000 mg PO BIDCM diabetes 0 11/21/16 03/17/20 History tamsulosin 0.4 mg capsule 0.4 mg PO QHS BPH 11/21/16 0 01/01/18 History gabapentin 400 mg capsule 400 mg PO TID 02/28/20 Unkno wn History hydroxychloroquine 200 mg tablet 200 mg PO DAILY 02/27 Unknown History tramadol 50 mg tablet 50 mg PO Q6H PRN PRN Pain Or Fever 05/29/20 Unknown History multivitamin 1 tab PO DAILY Supplement Unknown History celecoxib 200 mg capsule (Celebrex) 200 mg PO BID 05/31 Unknown History atorvastatin 20 mg tablet 20 mg PO QHS 12/22/20 Unknow n History metoprolol succinate 50 mg 50 mg PO QDAY 05/31/24 Unkn own History tablet,extended release 24 hr metoprolol succinate 100 mg 50 mg PO DAILY 04/15/25 Un known History tablet,extended release 24 hr vancomycin 1,000 mg intravenous 1,000 mg IV Q12H 25 da ys #50 ea 04/18/25 Unknown Rx injection dicyclomine 20 mg tablet 20 mg PO Q8H PRN PRN abdomin al 05/11/25 Unknown Rx discomfort #10 tabs Allergy/AdvReac Type Severity Reaction Status Date / Time No Known Allergies Allergy Verified 04/15/25 14:20 Family History Father Myocardial infarction, Onset Age: 73 Mother Myocardial infarction, Onset Age: 68 Other Arthritis Asthma Diabetes High cholesterol Hypertension Surgical History History of aortic valve replacement History of aortic valve replacement with bioprosthetic valve (~05/08/20) History of coronary artery bypass surgery (~05/08/20) History of left heart catheterization (03/18/20) History of knee replacement History of total knee arthroplasty Social History Smoking Status: Former smoker alcohol intake: never substance use type: does not use caffeine: Yes Type: coffee Number of servings: 3 additional social history: Does Not Take Ibuprofen ROS ROS ED Constitutional Constitutional ED: Denies chills or fever(s) Eyes Eyes: Denies change in vision or diplopia ENT ENT ED: Denies rhinorrhea or sore throat Cardiovascular Cardiovascular: Denies chest pain or palpitations Respiratory/Chest Respiratory/Chest: Denies cough or dyspnea Gastrointestinal Gastrointestinal: Denies abdominal pain, diarrhea, nausea or vomiting Genitourinary Genitourinary ED: Reports flank pain; Denies dysuria or hematuria Musculoskeletal Musculoskeletal: Reports back pain; Denies neck pain Integumentary Denies abscess or rash Neurologic Neurologic: Denies headache(s), paresthesias or weakness Psychiatric Psychiatric: Denies suicidal thoughts EXAM Physical Exam Const Vital Signs: 05/11/25 10:22 05/11/25 10:24 05/11/25 11:24 Temperature 99 F 97.7 F L 97.7 F L Temperature Source Temporal Oral Oral Pulse Rate 84 82 68 Respiratory Rate 14 16 16 Blood Pressure 167/86 H 155/82 H 129/59 H Blood Pressure Mean 113 106 82 Pulse Ox 98 98 95 Oxygen Delivery Method Room Air Room Air Room Air 05/11/25 12:00 Temperature 97.7 F L Temperature Source Oral Pulse Rate 70 Respiratory Rate 16 Blood Pressure 131/60 H Blood Pressure Mean 83 Pulse Ox 95 Oxygen Delivery Method Room Air Positive well nourished and well developed Constitutional Narrative: Uncomfortable General Appearance ED: well developed and NAD HEENT Reports moist mucous membranes normocephalic and atraumatic Eyes PERRL and EOMs intact bilaterally Neck full ROM and supple Resp normal respiratory effort and clear to auscultation bilaterally Cardio regular rate, regular rhythm and no murmurs GI non-tender and non-distended GI Narrative: no Kennedy sign. No Finch T[place] sign. Auscultation: normoactive bowel sounds Palpation: soft Back/Spine Back/Spine Narrative: No reproducible superficial paraspinal tenderness in the area where the patient hurts which is more caudal to the CVA on the left only General Back: CVA tenderness left (Normal inspection) and other FROM Extremity normal to inspection General Extremety ED: Negative for edema, pulses abnormal or tenderness General Extremity: Negative for edema or pulses abnormal Neuro oriented x3, CN's II-XII intact bilaterally and no sensory deficits noted Sensorium / Orientation: awake and alert Motor Exam: strength 5/5 throughout Skin no rashes or lesions noted and no wounds MDM MDM MDM Narrative Medical decision making narrative: Looking at the patient's recent records several weeks ago in March, he apparently was admitted for fever and confusion, blood cultures came back positive for MRSA and he had a fairly unremarkable echocardiogram/ZAINAB. He also apparently has a history of chronic back pain with a spinal stimulator in place. Repeat blood cultures were done after the initial positive ones, and they are negative. The patient's current symptoms could be renal colic, could be a AAA, it could be musculoskeletal. Obtain a plain CT in addition to blood work and a urinalysis and give the patient's morphine. He is a little hypertensive 167/86 but otherwise his vital signs are unremarkable and he is clinically stable just in pain prior to getting the medication. I reviewed the patient's ancillaries, all blood test and urinalysis normal. I reviewed the CT images and report which I agree with, there is no evidence of any acute. There is no AAA, ureterolithiasis, hydronephrosis, perinephric stranding, diverticulitis, or bowel obstruction. It is noted that the patient may have been constipated. I discussed this with him, he states incidentally yes he is constipated and has been for probably the past for 5 days since this has been going on. I advised the patient, who appears much more comfortable now after analgesics, that that may be causing his pain, or it may be muscular. He thinks that the pain has been present for the same amount of time his constipation. I offered him an enema here he declined. He states he could do that at home if he needs to, or take some stool softener or MiraLAX he is going to get the MiraLAX and try that we discussed how to use that at home and reasons to return he is comfortable with that plan. I will give him a prescription for some dicyclomine to use as needed for recurrent severe pain. History & Record Review Additional record(s) reviewed:: Prior inpatient record Lab Data Attestation: I reviewed the patient's lab results. Labs: Laboratory Results - last 24 hr 05/11/25 05/11/25 11:14 11:47 WBC 5.8 RBC 3.74 L Hgb 11.7 L Hct 32.6 L MCV 87.2 MCH 31.3 MCHC 35.9 RDW Std Deviation 40.4 RDW Coeff of Liang 12.8 Plt Count 157 MPV 9.9 Immature Gran % (Auto) 0.300 Neut % (Auto) 45.0 L Lymph % (Auto) 33.0 [place] % (Auto) 14.7 H Eos % (Auto) 6.1 H Baso % (Auto) 0.9 Absolute Neuts (auto) 2.6 Absolute Lymphs (auto) 1.91 Nucleated RBC % 0 Sodium 137 Potassium 3.9 Chloride 100 Carbon Dioxide 23.8 Anion Gap 13 BUN 17 Creatinine 1.03 Estim Creat Clear Calc 66.73 Est GFR (MDRD) Non-Af 75 BUN/Creatinine Ratio 16.0 Glucose 126 H Calcium 9.3 Urine Color Yellow Urine Clarity Clear Urine pH 7.0 Ur Specific [place] 1.005 Urine Protein 30 H Urine Glucose (UA) Normal Urine Ketones Negative Urine Occult Blood Negative Urine Nitrite Negative Urine Bilirubin Negative Urine Urobilinogen Normal Ur Leukocyte Esterase Negative Urine RBC 0 SEEN Urine WBC 0 SEEN Ur Squamous Epith Cells 0 SEEN Urine Bacteria 0 SEEN Urine Mucus 0 SEEN Radiography Diagnostic Testing: Clinical Impression(s) from Imaging Studies Abdomen/Pelvis CT 05/11/25 10:35 IMPRESSION: Negative for acute intra-abdominal or pelvic pathology. Constipation. Reading Location: [facility] Discharge Plan Triage Chief Complaint: Flank Pain ED Provider: Chidi Shi Dx/Rx/DC Orders Clinical Impression: Acute left flank pain, Constipation Instructions: ED Constipation (Adult) Prescriptions: New dicyclomine 20 mg tablet 20 mg PO Q8H PRN PRN (Reason: abdominal discomfort) Qty: 10 0RF No Action hydroxychloroquine 200 mg tablet 200 mg PO DAILY gabapentin 400 mg capsule 400 mg PO TID multivitamin Tablet 1 tab PO DAILY atorvastatin 20 mg tablet 20 mg PO QHS metoprolol succinate 50 mg tablet extended release 24 hr 50 mg PO QDAY metformin 500 MG tablet 1,000 mg PO BIDCM Patient Comments: diabetes tamsulosin 0.4 MG capsule 0.4 mg PO QHS Patient Comments: bladder aspirin 81 MG tablet,chewable 81 mg PO DAILY Patient Comments: heart health tramadol 50 MG tablet 50 mg PO Q6H PRN PRN (Reason: Pain Or Fever) metoprolol succinate 100 mg tablet extended release 24 hr 50 mg PO DAILY vancomycin 1,000 mg recon soln 1,000 mg IV Q12H 25 Days Qty: 50 0RF Rx Instructions: stop date 05/14/25. Dx: MRSA bacteremia. Weekly bmp, cbc, and vanc trough. Fax to [phone]. Routine picc care per protocol. celecoxib [Celebrex] 200 mg capsule 200 mg PO BID Primary Care Provider: Mike Flores Referrals: Mike Flores MD [Primary Care Provider] - 3-5 Days if not improving Activity Restrictions/Additional Instructions: Get some MiraLAX or generic equivalent, 1 capful daily dissolved in a glass of water will help keep stool soft and constipation from happening. If you want to treat constipation acutely, you may try about 4 capfuls (one day, once) dissolved in water and/or drink plenty of water afterwards and then go back to 1 capful daily. The prescription medication is just in case you need something for colon/bowel- related pain until this hopefully goes away. Print Language: Mosotho Disposition Disposition: Home, Self Care
--- NOTE | 2025-05-11 10:35 | CT_ITS ---
PROCEDURE: ABDOMEN/PELVIS WITHOUT CONT 05/11/2025 REASON FOR EXAM: PAIN LEFT FLANK/LOW BACK TECHNIQUE: Procedure Code: [id number] Modality: CT Procedure: ABDOMEN/PELVIS WITHOUT CONT Noncontrast technique limits evaluation of the abdominal and pelvic viscera. Coronal and Sagittal reconstruction series were provided. One or more dose reduction techniques were used (e.g., Automated exposure control, adjustment of the mA and/or kV according to patient size, use of iterative reconstruction technique). RADIATION DOSE SUMMARY: CTDlvol: 17.8 mGy DLP: 878.6 mGycm COMPARISON: CT March 2025. FINDINGS: Lung bases: Moderate emphysema. ABDOMEN Liver: Negative. Biliary system: Negative. Negative for intrahepatic or extrahepatic ductal dilatation. Gallbladder: Likely contains sludge. Negative for cholecystitis. Spleen: Negative. Pancreas: Negative. Adrenals: Negative. Kidneys: Left parapelvic cysts. Negative for kidney stones, or masses. Bowel: Moderate increased stool throughout the colon. Scattered diverticulosis. Negative for small or large-bowel obstruction. Appendix: Negative. Vasculature: Negative for atherosclerotic vascular calcifications of the abdominal aorta and its branches. Peritoneum / Retroperitoneum: Paraumbilical hernia with herniation of fat into the hernia sac. No bowel obstruction. PELVIS Lymph nodes: Negative for inguinal or iliac adenopathy. Bladder: Negative. Reproductive Organs: Prostate normal for age. Bones and Soft Tissues: Marked degenerative changes of the lumbar spine hips and pelvis. CT/Abdomen/Pelvis without Cont IMPRESSION: Negative for acute intra-abdominal or pelvic pathology. Constipation. Reading Location: [id number]
--- OUTSIDE RECORDS SUMMARY | 2025-05-11 11:13 | XMS RPT_ITS | CCD ---
Author Organization [facility] Care Team Providers Care Radio Frequency Design Engineer Name Role Phone Anuel Rodriges MD Unavailable [...] Solorzano Referring Provider Belen MIRANDA, PA Jinny Block Attending Provider Rashad RUIZ, Aaron Powers Primary Care Provider Aaron Solorzano MD Primary Care Provider Rashad RUIZ, Aaron Powers Primary Care Provider [phone] Dr. Mike Solorzano Primary Care Provider Dr. Alex Pacheco Attending Provider Rashad RUIZ, Aaron Powers Primary Care Provider [phone] Mecca RON.DOUBLE CUTTER, Daxa Unavailable Dr. Mike Solorzano MD Primary Care Provider Dr. Mike Solorzano MD Referring Provider Taiwo RUIZ, Dr. Velasco Attending Provider Taiwo RUIZ, Dr. Velasco Referring Provider Rashad RUIZ, Dr. Mckeon Attending Provider Rashad RUIZ, Dr. Mckeon Attending Provider Rashad RUIZ, Dr. Mckeon Primary Care Provider Taiwo RUIZ, Dr. Velasco Attending Provider Taiwo RUIZ, Dr. Velasco Referring Provider Rashad RUIZ, Dr. Mckeon Referring Provider NP. Lucy Velasco Attending Provider NP. Lucy Velasco Referring Provider [phone] Rajeev RUIZ, Dr. Tello Emergency Provider Joe RUIZ, Dr. Cazares Admit Provider Joe RUIZ, Dr. Cazares Attending Provider Joe RUIZ, Dr. Cazares Other Provider Kimberly RUIZ, Dr. Margarita Madison Attending Provider Christian RUIZ, Dr. Johnson Other Provider Dannielle RUIZ, Dr. Wolf Attending Provider Unavailab rubio Harris MD, Dr. Margarita Madison Other Provider [phone] Hugo RUIZ, Dr. Cain Attending Provider AARON SOLORZANO Attending Unavailable SELF Referring Unavailable KONTAK, AARON R Primary Care Unavailable KONTAK, AARON R Primary Care Unavailable KONTAK, AARON R Primary Care Unavailable LISA QUINTANILLA Referring Unavailable RASHAD, AARON Powers Attending Unavailable RASHAD, AARON R Referring Unavailable KONTAK, AARON R Primary Care Unavailable KONTAK, AARON R Primary Care Unavailable LISA QUINTANILLA Attending Unavailable RASHAD, AARON R Primary Care Unavailable DAXA WING Attending Unavailable RASHAD, AARON R Primary Care Unavailable Rashad, Mike Primary Care Unavailable Rashad, Mike Referring Unavailable Mike Solorzano Attending Unavailable Rod Maravilla Referring Unavailable Taiwo, Rod Attending Unavailable Rashad, [place] Primary Care Unavailable Margarita Harris Attending Unavailable Debora Diaz Admitting Unavailable Debora Diaz Consulting Unavailable Rashad, [place] Primary Care Unavailable Alex Gonzales Consulting Unavailable Margarita Harris Consulting Unavailable Taiwo, Rod Attending Unavailable Kontak, [place] Primary Care Unavailable Karim, Adham Attending Unavailable Kontak, [place] Primary Care Unavailable Kontak, [place] Primary Care Unavailable HugoAustin freemanril Attending Unavailable Kontak, [place] Primary Care Unavailable Taiwo, Rod Attending Unavailable Kontak, Mike Referring Unavailable Taiwo, Rod Attending Unavailable Kontak, [place] Referring Unavailable Kontak, [place] Primary Care Unavailable Debora Diaz Attending Unavailable Lucy Velasco Referring Unavailable Lucy Velasco Attending Unavailable Konta, [place] Primary Care Unavailable Taiwo, Rod Referring Unavailable Taiwo, Rod Attending Unavailable Elenak, [place] Primary Care Unavailable Alex Gonzales Referring Unavailable Rashad, [place] Primary Care Unavailable Alex Gonzales Attending Unavailable Rashad, [place] Primary Care Unavailable Alex Gonzales Referring Unavailable Alex Gonzales Attending Unavailable Margarita Harris Attending Unavailable Debora Diaz Admitting Unavailable Debora Diaz Consulting Unavailable Rashad, [facility] Care Unavailable Alex Gonzales Consulting Unavailable Allergies Allergy Classification Reported Allergen(s) Allergy Type Date of Onset Reaction(s) Facility (20 sources) PSEUDOEPHEDRINE -GUAIFENESIN; Translations: [PSEUDOEPHEDRIN E-GUAIFENESIN] Propensity to adverse reactions (disorder) 7 Other (See Comments), Intolerance [facility] Repository Medications Current Medications Medication Drug Class(es) [...] / oxyCODONE hydrochloride 5 mg oral tablet (17 sources) Opioid Agonist Start: 06-02-2020 End: 06-09-2020 [...] 4 po 1hr prior to procedure AMOXICILLIN [id number] Nabor Mcfarland Comment on above: Take 4 [...] TBEC One tablet by mouth daily ASPIRIN [id number] Nabor Mcfarland Start: 11-22-2013 End: 04-23-2015 take 1 tablet by mouth once daily Aspirin 81 MG Tab.Chew Discontinued 81 mg PO DAILY@0800 November 22, 2013 12:00am April 23, 2015 7:03am Comment on above: Take 1 tablet by eliana th every 48 hours. atorvastatin 20 mg oral tablet (20 sources) HMG-CoA Reductase Inhibitor Start: End: take 1 tablet by mouth once daily atorvastatin (LIPITOR) 20 mg tablet Indications: Mixed hyperlipidemia Take 1 tablet by mouth once daily. 90 tablet 2 07/13/2024 Active Start: 09-09-2020 End: 12-22-2020 take 2 tablets [...] Oral, NIGHTLY, First dose on Tue05/30/20 at 2099 Start: 01-11-2014 End: 06-09-2020 take 1 tablet by mouth at breakfast Atorvastatin 20 MG tablet Discontinued 20 mg PO WITH BREAKFAST November 21, 2016 12:00am March 13, 2020 9:02am cholesterol Comment on above: Take 1 tablet by eliana once daily. celecoxib 200 mg oral capsule (20 sources) Nonsteroidal Anti-inflammatory Drug Start: 0 End: 5 take 1 capsule by mouth twice daily at mealtime celecoxib (CELEBREX) 200 mg capsule Indications: Lumbar degenerative disc disease Take 1 capsule by mouth twice daily. Take with food. 180 capsule 1 11/02/2024 Active Start: 05-09-2020 celecoxib (NATALIE EBREX) capsule 100 mg Start: 01-02-2018 End: 02-28-2020 take 1 capsule by mouth twice daily as needed for pain Celecoxib 200 MG capsule Discontinued 200 mg PO TWICE A DAY as needed for Pain 0 0 January 03, 2018 2:39pm February 28, 2020 11:09am Comment on above: Take 1 capsule by mo [facility] twice daily. Take with food. CPAP (20 [...] supplies. docusate sodium 50 mg / sennosides, residential 8.6 mg oral tablet (1 source) Start: [...] 500 mg 3 times daily GABAPENTIN CAPS [id number] Dorinda Gavin Start: 03-22-2017 GABAPENTIN CAP S 500 mg 3 times daily GABAPENTIN CAPS [id number] Dorinda Gavin Start: 11-21-2016 End: 02-28-2020 take 1 capsule by mouth three times daily at mealtime Gabapentin 300 MG capsule Discontinued 300 mg PO 3 TIMES DAILY WITH MEALS November 21, 2016 12:00am February 28, 2020 11:07am nerve pain Comment on above: Take 1 (ONE) capsule by mouth three times daily Take 400 mg by mouth three times daily. Take 1 capsule by mo uth three times daily for 90 days. Take 1 capsule by mo uth three times a day for 180 days. [...] s olution Start: 05-08-2020 15 g, Oral, VT N, Low blood sugar, Starting Jordana 05/08/20 [...] (20 sources) Antirheumatic Agent Start: 11-22-2013 End: 05-09-2025 take 1 tablet by mouth once hydrOXYchloroQUINE (PLAQUENIL) 200 mg tablet Indications: Chronic idiopathic urticaria Take 1 tablet by mouth every afternoon. 90 tablet 05/09/2025 Active Comment on above: Take 1 tablet [...] 05-31-2020 ibuprofen (ADV IL;MOTRIN) tablet 400 mg insulin lispro 100 unt/ml injectable solution (20 sources) Insulin Analogue Start: 05-31-2020 insulin lispr o (HUMALOG) injection vial 0-3 Units Start: 05-12-2020 [...] times daily before meals INSULIN LISPRO (HUMAN) [id number] Nabor Mcfarland Start: 01-11-2014 inject 12 [IU] by robertson bcutaneous injection three times daily before mealtime HUMALOG 100 UNIT/ML SOLN Inject 12 units subcutaneously three times daily before meals INSULIN LISPRO (HUMAN) [id number] Nabor Mcfarland Start: 01-11-2014 HUMALOG 100 UN IT/ML SOLN Inject 12 units subcutaneously three times daily before meals INSULIN LISPRO (HUMAN) [id number] Nabor Mcfarland Melatonin (2 sources) Start: 05-30-2020 melatonin ER t ablet 2 mg Start: 05-09-2020 End: 05-09-2020 melatonin [...] Start: 01-27-2023 take 1 tablet by eliana th twice daily at mealtime metFORMIN (GLUCOPHAGE) 1,000 [...] tablet by mouth twice daily METFORMIN HCL [id number] Evelia Maya Start: 11-21-2016 take 2 tablets [...] tablet 3 times a day METFORMIN HCL [id number] Dorinda Gavin Comment on above: Take 1 [...] 5:17pm Start: 01-11-2014 TOPROL XL 100 MG [id number] Take 0.5 tab once daily METOPROLOL SUCCINATE [id number] Nabor Mcfarland Start: 01-11-2014 TOPROL XL 100 MG [id number] Take 0.5 tab once daily METOPROLOL SUCCINATE [id number] Nabor Mcfarland End: 05-14-2020 take 1 tablet [...] DAILY June 09, 2020 12:00am Multivitamin tablet (4 sources) Start: 06-09-2020 Multivitamin t ablet Active 1 {tbl} PO DAILY June 09, 2020 12:00am Supplement Start: 06-09-2020 Multivitamin t ablet Active 1 {tbl} PO DAILY June 09, 2020 12:00am piperacillin 4000 mg / tazobactam 500 mg injection (1 source) Penicillin-class Antibacterial, beta Lactamase Inhibitor Start: 05-30-2020 piperacillin-tazobactam (ZOSYN) 4.5 g in dextrose 100 mL IVPB extended infusion (premix) polyethylene glycol 3350 78436 mg powder for oral solution (3 sources) [...] 3 ml sodium chloride 9 mg/ml injection (16 sources) Start: 05-30-2020 sodium chlorid e flush [...] 20 ml/hr to SP(introducer) and WT on [place] Perez Catheter; once [place] discontinued run at 20 ml/hr through SP(introducer) [...] 03-22-2017 BACTRIM TABS 2016 SULFAMETHOXAZOLE- TRIMETHOPRIM TABS [id number] Anuel Rodriges MD Start: 03-22-2017 End: 03-22-2017 BACTRIM TABS 2016 SULFAMETHOXAZOLE- TRIMETHOPRIM TABS [id number] Anuel Rodriges MD Start: 03-22-2017 BACTRIM TABS 2 SULFAMETHOXAZOLE-TRIMETHOPRIM TABS [id number] Dorinda Gavin tamsulosin hydrochloride 0.4 mg oral capsule (20 sources) alpha-Adrenergic Maggy Start: 01-11-2014 End: 10-25-2025 take 1 capsule by mouth once daily at bedtime tamsulosin (FLOMAX) 0.4 mg Take 1 capsule by mouth daily at bedtime. 90 capsule 3 10/25/2024 10/25/2025 Active Comment on above: TAKE 1 CAPSULE DAILY AT BEDTIME Take 1 capsule by mo [facility] daily at bedtime. traMADol hydrochloride 50 mg oral tablet (20 sources) Opioid Agonist Start: 05-10-2025 End: 06-09-2025 take 1 tablet by mouth every six hours as needed for pain traMADol (ULTRAM) 50 mg tablet Indications: Chronic bilateral low back pain without sciatica Take 1 tablet by mouth every 6 hours as needed for pain for up to 30 days. 120 tablet 05/10/2025 06/09/2025 Active Start: 05-12-2020 traMADol (ULTR AM) tablet 25 mg Start: 04-14-2015 End: 05-09-2025 take 1 tablet by mouth every six hours as needed for pain traMADol (ULTRAM) 50 mg tablet Indications: Lumbosacral neuritis , Lumbar spondylosis Take 1 tablet by mouth every 6 hours as needed for pain for up to 30 days. 120 tablet 04/01/2025 05/01/2025 Active Comment on above: [facility] as needed for up [...] rash 30 g 05/19/2024 05/29/2024 Active vancomycin 1000 mg injection (2 sources) Glycopeptide Antibacterial Start: 04-18-2025 Vancomycin 1,000 mg recon soln Active 1000 mg IV Q12H 50 25 0 April 18, 2025 12:00am stop date 05/14/25. Dx: MRSA bacteremia. Weekly bmp, cbc, and vanc trough. Fax to [phone]. Routine picc care per protocol. Start: 05-30-2020 End: 05-31-2020 vancomycin (VANCOCIN) 1000 m g in dextrose 5% 200 mL IVPB vancomycin (VANCOCIN) 1,500 mg in dextrose 5 % 250 mL IVPB (1 source) Start: 06-02-2020 vancomycin (VA NCOCIN) 1,500 mg in dextrose 5 % 250 mL IVPB Completed/Discontinued Medications Medication Drug Class(es) Dates Sig (Normalized) Sig (Original) acetaminophen 325 mg / HYDROcodone bitartrate 5 mg oral tablet (7 sources) Opioid Agonist Start: 05-12-2021 End: 05-25-2021 [...] 25, 2021 2:36pm 20 ml albumin human, residential 250 mg/ml injection (5 sources) Human Serum [...] than 7.5 notify surgeon for orders. Post-op [id number] 200 actuat albuterol 0.09 mg/actuat metered dose [...] needed. amiodarone hydrochloride 200 mg oral tablet (12 sources) Antiarrhythmic Start: 05-14-2020 End: 06-27-2020 take 1 tablet by mouth once daily Amiodarone 200 MG tablet Discontinued 200 mg PO DAILY May 29, 2020 12:00am June 27, 2020 3:55pm Start: 05-13-2020 amiodarone (CO RDARONE) tablet 400 mg ascorbic acid 500 mg extended release oral capsule (19 sources) Vitamin C Start: 05-29-2020 End: 12-22-2020 [...] oral capsule (18 sources) Non-narcotic Antitussive Start: End: take 1-2 capsules by mouth three times [...] inhaler (20 sources) Corticosteroid, beta2-Adrenergic Agonist Start: SYMBICORT 80-4.5 MCG/ACT AERO inhale 2 puffs as instructed twice daily BUDESONIDE-FORMOTEROL FUMARATE [id number] Nabor Mcfarland Start: 01-11-2014 SYMBICORT 80-4 .5 MCG/ACT AERO inhale 2 puffs as instructed twice daily BUDESONIDE-FORMOTEROL FUMARATE [id number] Nabor Mcfarland calcium chloride 0.0014 meq/ ml / potassium [...] 03-22-2017 KEFLEX CAPS 20 14/03/25 CEPHALEXIN CAPS [id number] Dorinda Gavin Start: 03-22-2017 End: 04-13-2017 KEFLEX CAPS CEPHA LEXIN CAPS [id number] Nahomy Herbert GLASS WORKER Start: 03-22-2017 End: 04-13-2017 KEFLEX CAPS CEPHA LEXIN CAPS [id number] Nahomy Garciaon GLASS WORKER Start: 03-22-2017 KEFLEX CAPS 20 14/03/25 CEPHALEXIN CAPS [id number] Dorinda Gavin Start: 03-15-2017 End: 03-25-2017 take 1 capsule by mouth twice daily Cephalexin (Keflex) 500 MG capsule Discontinued 500 mg PO TWICE A DAY March 15, 2017 12:00am March 25, 2017 3:25pm take 1 capsule by [facility] four times daily cephALEXin (KEFLEX) 500 MG [...] 15 mL colchicine 0.6 mg oral tablet (16 sources) Start: 06-27-2020 End: 09-09-2020 take 1 tablet by mouth twice daily Colchicine (Colcrys) 0.6 mg tablet Discontinued 0.6 mg PO TWICE A DAY 60 August 18, 2020 2:01pm September 09, 2020 10:03am Start: 05-30-2020 take 1 tablet by eliana th twice daily colchicine (COLCRYS) 0.6 MG tablet Take 1 tablet by mouth 2 times daily 30 tablet 3 06/02/2020 Active cyclobenzaprine hydrochloride 10 mg oral tablet (20 sources) Muscle Relaxant Start: 03-22-2017 CYCLOBENZAPRIN E HCL 10 MG TABS 1/2 - 1 tablet 2 times daily as needed CYCLOBENZAPRINE HCL [id number] Dorinda Gavin 100 ml dexmedetomidine 0.004 mg/ml injection (1 source) Central alpha-2 Adrenergic Agonist Start: 05-08-2020 End: 05-09-2020 dexmedetomidine (PRECEDEX) 400 mcg in sodium chloride 0.9 % 100 mL infusion diclofenac sodium 0.01 mg/mg topical gel (20 sources) Nonsteroidal Anti-inflammatory Drug Start: 03-22-2017 End: 05-18-2017 VOLTAREN 1 % GEL apply 2-3 times a day DICLOFENAC SODIUM [id number] Evelia Maya Start: 03-22-2017 VOLTAREN 1 % G EL apply 2-3 times a day DICLOFENAC SODIUM [id number] Dorinda Gavin Start: 03-22-2017 VOLTAREN 1 % G EL apply 2-3 times a day DICLOFENAC SODIUM [id number] Dorinda Gavin doxycycline hyclate 100 mg oral [...] tablet by mouth twice daily DOXYCYCLINE HYCLATE [id number] Anuel Rodriges MD 0.5 ml dulaglutide 3 [...] ml enoxaparin sodium 100 mg/ml prefilled syringe (9 sources) Low Molecular Weight Heparin Start: 05-30-2020 [...] blood sugars 4 times daily GLUCOSE BLOOD [id number] Nabor Mcfarland GLUCOSE BLOOD (7 sources) Start: 01-11-2014 ACCU-CHEK EJ A STRP check blood sugars 4 times daily GLUCOSE BLOOD [id number] Nabor Mcfarland Start: 01-11-2014 ACCU-CHEK EJ A STRP check blood sugars 4 times daily GLUCOSE BLOOD [id number] Nabor Mcfarland 3 ml insulin detemir 100 unt/ml pen injector (20 sources) Insulin Analog Start: 05-31-2024 End: 04-15-2025 Insulin Detemir U-100 (Levemir Flextouch U100 Insulin) 100 unit/mL (3 mL) insulin pen Discontinued 10 U SC AT BEDTIME as needed May 31, 2024 1:15pm April 15, 2025 8:22pm Start: 10-15-2021 inject 1 dose by sub [...] Units subc utaneously daily at bedtime. insulin glargine 100 unt/ml injectable solution (20 [...] 25 units subcutaneously every night INSULIN GLARGINE [id number] Evelia Maya Start: 01-11-2014 LANTUS 100 UNI T/ML SOLN inject 20 units subcutaneously every morning INSULIN GLARGINE [id number] Nabor Mcfarland Start: 01-11-2014 inject 20 [IU] by robertson bcutaneous injection once daily in the morning LANTUS 100 UNIT/ML SOLN inject 20 units subcutaneously every morning INSULIN GLARGINE [id number] Nabor Mcfarland Start: 01-11-2014 LANTUS 100 UNI T/ML SOLN inject 20 units subcutaneously every morning INSULIN GLARGINE [id number] Nabor Mcfarland Start: 11-22-2013 End: 08-02-2014 Insulin [...] mL/hr), Intravenous, at 1 mL/hr, CONTINUOUS, Starting [facility] 05/08/20 at 1230 Target glucose 90-120mg/dl; [...] interventions based on BGT and call the Head Teller. o Maximum insulin infusion drip rate may not exceed 30 units/hr; Insulin drip may NOT be discontinued unless approved by Head Teller. Discontinue all subcutaneous Insulin orders (if patient is on subcutaneous insulin). Post-op INSULIN SYRINGE-NEEDLE U-100 (16 sources) Start: 01-11-2014 BD INSULIN SYR LINDSAY 31G X 01/11 0.3 ML MISC as directed INSULIN SYRINGE-NEEDLE U-100 [id number] Nabor Mcfarland insulin isophane, human 100 unt/ml injectable suspension (20 sources) Start: 04-14-2015 End: 04-23-2015 Insulin Nph Isoph U-100 Shraddah n (Humulin N Nph Insulin Kwikpen) 100 [...] daily at bedtime INSULIN ISOPHANE HUMAN SUSP [id number] Nabor Mcfarland Start: 01-11-2014 End: 05-18-2017 HUMULIN N SUSP Inject 15 uni ts subcutaneously daily at bedtime INSULIN ISOPHANE HUMAN SUSP [id number] Evelia Maya Start: 01-11-2014 inject 15 [IU] by robertson bcutaneous injection once daily at bedtime HUMULIN N SUSP Inject 15 units subcutaneously daily at bedtime INSULIN ISOPHANE HUMAN SUSP [id number] Nabor Mcfarland lidocaine 0.04 mg/mg medicated patch (8 sources) Antiarrhythmic, Amide Local Anesthetic Start: 03-16-2022 End: 08-16-2022 Lidocaine 4 % adhesive patch,medicated Discontinued 1 NMA TOPICAL Q12H as needed for pain 10 0 March 16, 2022 12:00am August 16, 2022 [...] 2016 12:00am February 28, 2020 11:09am HTN losartan potassium 25 mg oral tablet (4 sources) Angiotensin 2 Receptor Maggy Start: 05-31-2024 End: 04-15-2025 take 1 tablet by mouth once daily Losartan 25 mg tablet Discontinued 25 mg PO daily 90 3 May 31, 2024 12:00am April 15, 2025 8:22pm 50 ml magnesium sulfate 40 mg/ml injection (3 sources) Start: 06-01-2020 End: 06-01-2020 [...] tablet by mouth twice daily MINOCYCLINE HCL [id number] Anuel Rodriges MD multivitamin tablet (20 sources) [...] once daily. mupirocin 0.02 mg/mg topical ointment (11 sources) RNA Synthetase Inhibitor Antibacterial Start: 05-08-2020 [...] daily at bedtime INSULIN ISOPHANE HUMAN SUSP [id number] Nabor Mcfarland oxyCODONE hydrochloride 5 mg oral tablet (14 sources) Opioid Agonist Start: 01-11-2021 End: 05-25-2021 [...] pantoprazole 40 mg delayed release oral tablet (13 sources) Proton Pump Inhibitor Start: 05-15-2020 End: 09-09-2020 take 1 tablet by mouth once daily Pantoprazole 40 MG tablet Discontinued 40 mg PO DAILY May 29, 2020 12:00am September 09, 2020 9:28am Start: 05-15-[address] [facility] once daily before breakfast pantoprazole (PROTONIX) 40 [...] 90 mmHg; and PAD above 18, Starting [facility] 05/08/20 at 1213 Initial rate: 0.5 mcg/kg/min [...] provider. Post-op predniSONE 10 mg oral tablet (7 sources) Start: 06-27-2020 End: 09-09-2020 Prednisone 10 [...] mL/hr), Intravenous, at 6 mL/hr, CONTINUOUS, Starting [facility] 05/08/20 at 1230 For sedation, titrate to [...] regular insulin, human 100 unt/ml injectable solution (8 sources) Insulin Start: 05-08-2020 End: 05-12-2020 take 2 [IU] intravenous route once as needed 4 Units, Intravenous, PRN, High Blood Sugar, Insulin Bolus per Post op Open Heart Insulin drip, Starting [facility] 05/08/20 at 1213 Post Open Heart [...] Active Comment on above: Use as instructed. warfarin sodium 5 mg oral tablet (16 sources) Vitamin K Antagonist Start: 05-29-2020 End: 08-05-2020 take 1 tablet by mouth once daily Warfarin 5 MG tablet Discontinued 5 mg PO DAILY May 29, 2020 12:00am August 05, 2020 10:47am Start: 05-11-2020 warfarin (COUM BRAD) tablet 2.5 mg Start: 05-10-2020 End: 05-15-2020 warfarin (COUMADIN) 5 MG tab let Take as directed by [facility] (30 tablets= 30 day supply) 30 tablet 1 05/14/2020 Active Problems Active Problems Problem Classification Problem Date Documented Date Episodic/Chronic Abdominal pain (7 sources) Flank pain; Translations: [Unspecified abdominal pain] 03-14-2020 Episodic Acute posthemorrhagic anemia (5 sources) Anemia following acute postoperative blood loss; Translations: [Postoperative anemia due to acute blood loss] 05-12-2020 Episodic Asthma (7 sources) Asthmatic bronchitis; Translations: [Unspecified asthma with (acute) exacerbation] 01-22-2020 Chronic Bacterial infection (20 sources) Methicillin resistant Staphylococcus aureus infection; Translations: [History of methicillin resistant Staphylococcus aureus infection] Onset: 03-31-2017 03-31-2017 Episodic Cardiac dysrhythmias (20 sources) Atrial fibrillation; Translations: [Longstanding persistent atrial fibrillation] Onset: 05-13-2020 05-13-2020 Chronic Cataract (4 sources) Bilateral cataracts; Translations: [Unspecified cataract] 05-10-2023 Chronic Coagulation and hemorrhagic disorders (20 sources) Thrombocytopenic disorder; Translations: [Thrombocytopenia, unspecified] Onset: 01-07-2023 01-07-2023 Chronic Complication of device; implant or graft (1 source) Arteriosclerosis of coronary artery bypass graft; Translations: [Coronary artery disease involving coronary bypass graft of [place] heart without angina pectoris] Chronic Conditions associated with dizziness or vertigo (7 sources) Lightheadedness; Translations: [Dizziness and giddiness] 03-11-2021 Episodic Coronary atherosclerosis and other heart disease (20 sources) Coronary arteriosclerosis in [place] artery; Translations: [Coronary atherosclerosis] Onset: 03-26-2020 05-12-2020 Chronic Deficiency and other anemia (1 source) Anemia of chronic disease; Translations: [Anemia in other chronic diseases classified elsewhere] 02-11-2025 Chronic Deficiency and other anemia (2 sources) Pancytopenia; Translations: [Other pancytopenia] 04-15-2025 Chronic Deficiency and other anemia (1 source) Anemia in other chronic diseases classified elsewhere; Translations: [Anemia of chronic disease] Onset: 02-11-2025 Chronic Delirium, dementia, and amnestic and other [...] 12-19-2007 05-12-2020 Chronic Fever of unknown origin (13 sources) Fever; Translations: [Fever, unspecified] Onset: 04-19-2025 05-29-2020 Episodic Fluid and electrolyte disorders (10 sources) Hyponatremia; Translations: [Hypo-osmolality and hyponatremia] Episodic [...] Onset: 01-11-2014 01-15-2014 Chronic Nonspecific chest pain (20 sources) Chest wall pain; Translations: [Other chest pain] 03-24-2022 Episodic Osteoarthritis (20 sources) Osteoarthritis of knee; Translations: [Arthritis] Onset: 05-30-2014 05-30-2014 Chronic Other aftercare (1 source) Post-discharge follow-up; Translations: [Encounter for follow-up examination after completed treatment for conditions other than malignant neoplasm] 05-09-2025 Episodic Other aftercare (1 source) Drug therapy finding; Translations: [Other [facility] (current) drug therapy] 05-09-2025 Episodic Other circulatory disease (4 sources) Disorder of carotid artery; Translations: [Disorder of arteries and arterioles, unspecified] 03-14-2024 Chronic Other circulatory disease (2 sources) History of cerebrovascular disease; Translations: [Personal history of other diseases of the circulatory system] Onset: 10-22-2021 Episodic Other circulatory disease (1 source) H/O: atrial fibrillation; Translations: [Personal history of other diseases of the circulatory system] 10-17-2023 Episodic Other circulatory disease (4 sources) Carotid bruit; Translations: [Other specified symptoms and signs involving the circulatory and respiratory systems] 12-08-2023 Episodic Other connective tissue disease (6 sources) Thigh pain; Translations: [Pain in right thigh] 02-05-2023 Episodic Other connective tissue disease (4 sources) H/O: musculoskeletal disease; Translations: [Personal history of other diseases of the musculoskeletal system and connective tissue] 05-12-2023 Episodic Other ear and sense organ disorders (4 sources) Hearing disorder; Translations: [Unspecified hearing loss, unspecified ear] 05-10-2023 Chronic Other injuries and conditions due to external causes (3 sources) Systemic inflammatory response syndrome; Translations: [Systemic inflammatory response syndrome (SIRS) of non-infectious origin without acute organ dysfunction] 04-15-2025 Episodic Other injuries and conditions due to external causes (1 source) Systemic inflammatory response syndrome (SIRS) of non-infectious origin without acute organ dysfunction; Translations: [Systemic inflammatory response syndrome (SIRS) of non-infectious origin without acute organ dysfunction] Onset: 04-19-2025 Episodic Other lower respiratory disease (8 sources) Dyspnea on exertion; Translations: [Other forms of dyspnea] 03-12-2020 Episodic Other nervous system disorders (2 sources) Disorder of brain; Translations: [Encephalopathy, unspecified] 04-15-2025 [...] Chronic Other nutritional; endocrine; and metabolic disorders (2 sources) Body mass index 30+ - obesity; Translations: [Body mass index (BMI) 33.0-33.9, adult] 04-15-2025 Chronic Other nutritional; endocrine; and metabolic disorders (1 source) Obesity, unspecified; Translations: [Obesity, unspecified] Onset: 10-09-2024 Chronic Other skin disorders (1 source) Eruption; Translations: [Rash and other nonspecific skin eruption] 05-19-2024 Episodic Other skin disorders (8 sources) Swelling of hand; Translations: [Effusion, left hand] 12-05-2024 Episodic Comment on above: PIP joint Karon-; endo-; and myocarditis; cardiomyopathy (except that caused by tuberculosis or sexually transmitted disease) (10 sources) Acute pericarditis; Translations: [Pericardial effusion] 06-01-2020 Episodic Peripheral and visceral atherosclerosis (20 sources) Peripheral vascular disease, unspecified; Translations: [Peripheral vascular disease, unspecified] Onset: 06-16-2023 06-16-2023 Chronic Residual codes; unclassified (20 sources) Sleep apnea; Translations: [Sleep apnea, unspecified] Onset: 11-07-2009 05-12-2020 Chronic Residual codes; unclassified (10 sources) Obstructive sleep apnea syndrome; Translations: [Obstructive sleep apnea (adult) (pediatric)] Onset: 10-22-2021 Chronic Residual codes; unclassified (1 source) Postprocedural state finding; Translations: [Presence of other specified functional implants] 10-17-2023 Chronic Residual codes; unclassified (5 sources) Chronic back pain ; Translations: [Chronic back pain] 05-12-2020 Episodic Residual codes; unclassified (2 sources) Altered mental status; Translations: [Altered mental status, unspecified] 04-15-2025 Episodic Residual codes; unclassified (1 source) Altered mental status, unspecified; Translations: [Altered mental status, unspecified] Onset: 04-19-2025 Episodic Screening or history of mental health and substance abuse (19 sources) Ex-smoker; Translations: [Patient encounter status] Onset: 03-31-2017 04-06-2017 Episodic Septicemia (except in labor) (1 source) Sepsis due to Methicillin susceptible Staphylococcus aureus; Translations: [Sepsis due to Methicillin susceptible Staphylococcus aureus] Onset: 04-23-2025 Episodic Skin and subcutaneous tissue infections (20 [...] Onset: 03-29-2006 05-27-2005 Episodic Sprains and strains (7 sources) Strain of muscle of lower limb; Translations: [Strain of muscle, fascia and tendon of left hip, initial encounter] 05-20-2021 Episodic Syncope (7 sources) Near syncope; Translations: [Syncope and collapse] 03-11-2021 Episodic Unclassified (14 sources) Aftercare ; Translations: [Encounter for other specified surgical aftercare] Onset: 03-31-2017 04-04-2017 Unclassified (1 source) Unknown / UNK(Unknown) Onset: 10-26-2017 Unclassified (1 source) Patient encounter status; Translations: [Pre-op testing] Unclassified (1 source) Degeneration of intervertebral disc of lumbar region with discogenic back pain and lower extremity pain; Translations: [Degeneration of intervertebral disc of lumbar region with discogenic back pain and lower extremity pain] Onset: 02-18-2014 Unclassified (1 source) Other intervertebral disc degeneration, lumbar region without mention of lumbar back pain or lower extremity pain; Translations: [Other intervertebral disc degeneration, lumbar region without mention of lumbar back pain or lower extremity pain] Onset: 01-17-2025 Past or Other Problems Problem Classification Problem Date Documented Da te Episodic/Chronic Allergic reactions (20 sources) Idiopathic urticaria; Translations: [Idiopathic urticaria] Onset: 02-24-2009 02-24-2009 Episodic Anal and rectal conditions (20 sources) Anorectal abscess; Translations: [Anorectal abscess] Onset: 08-13-2008 Resolved: 07-04-2009 07-04-2009 Episodic Complications of surgical procedures or medical care (16 sources) Seroma following procedure; Translations: [Seroma after procedure] Onset: 10-09-2024 Episodic Coronary atherosclerosis and other heart disease (7 sources) History of coronary artery bypass grafting; Translations: [Presence of aortocoronary bypass graft] Onset: 05-10-2020 05-10-2020 Episodic Joint disorders and dislocations; trauma-related (20 sources) Tear of medial cartilage or meniscus of knee, current; Translations: [Tear of medial cartilage or meniscus of knee, current] Onset: 05-08-2014 05-09-2014 Episodic Other aftercare (20 sources) Follow-up orthopedic assessment; Translations: [Encounter for other orthopedic aftercare] Onset: 09-06-2014 09-09-2014 Episodic Other aftercare (1 source) retirement (current) use of insulin; Translations: [Controlled type [...] Translations: [Dyspnea, unspecified] Onset: 10-09-2024 Episodic Other nervous system disorders (1 source) Other abnormalities of gait and mobility; Translations: [Other abnormalities of gait and mobility] Onset: 01-02-2025 Episodic Other non-traumatic joint disorders (20 sources) [...] of hand joint, left] Onset: 12-05-2024 Episodic Other screening for suspected conditions (not mental disorders or infectious disease) (14 sources) Platelet count below reference range; Translations: [Echocardiogram abnormal] Onset: 10-09-2024 05-12-2020 Episodic Residual codes; unclassified (20 sources) Family history of alcoholism; Translations: [Family history of alcohol abuse and dependence] 03-22-2017 Episodic Residual codes; unclassified (7 sources) History of cardiac catheterization; Translations: [Other specified postprocedural states] Onset: 03-18-2020 05-29-2020 Episodic Comment on above: Ho-Chunk Multivessel C AD. Aortic Valve Calcification- Restriction. RECOMMENDATIONS: Surgery consult for coronary revascularization. Surgery consult for valvular disease. Varicose veins of lower extremity (9 sources) Pain co-occurrent and due to varicose veins of right leg; Translations: [Varicose veins of right lower extremity with pain] Onset: 11-28-2024 Episodic Results Test Name Value Interpretation Reference Range Facility Basic Metabolic Profile (BMP )on 05-06-2025 BUN/CRE 17.8 RATIO Normal 06-17 [facility] Comment on above: Performed By: #### L 100.0500, L501.8820, L500.2500 #### [facility] [address] [place], [address] Calcium [Mass/Vol] 9.2 mg/dL Normal 7.6-11.0 [facility] Comment on above: Performed By: #### L 100.0500, L501.8820, L500.2500 #### [facility] [address] [place], [address] Chloride [Moles/Vol] 101 mmol/L Normal 98-108 [facility] Comment on above: Performed By: #### L 100.0500, L501.8820, L500.2500 #### [facility] [address] [place], [address] CO2 [Moles/Vol] 24.9 mmol/L Normal 21.0-32.0 [facility] Comment on above: Performed By: #### L 100.0500, L501.8820, L500.2500 #### [facility] [address] [place], [address] Creatinine [Mass/Vol] 1.00 mg/dL Normal 0.70-1.20 [facility] Comment on above: Performed By: #### L 100.0500, L501.8820, L500.2500 #### [facility] [address] [place], [address] GAP 11 Normal 5-15 [facility] Comment on above: Performed By: #### L 100.0500, L501.8820, L500.2500 #### [facility] [address] [place], [address] GFR/1.73 sq M.predicted among non-blacks MDRD (S/P/Bld) [Vol rate/Area] 78 mL/min/{1.73_m2} Normal >60 [facility] Comment on above: Result Comment: mL/m in/1.73m2 CKD-EPI Creatinine Equation (2020) Performed By: #### L 100.0500, L501.8820, L500.2500 #### [facility] [address] [place], [address] Glucose [Mass/Vol] 120 mg/dL High 70-99 [facility] Comment on above: Performed By: #### L 100.0500, L501.8820, L500.2500 #### [facility] [address] [place], [address] Potassium [Moles/Vol] 4.0 mmol/L Normal 3.3-5.1 [facility] Comment on above: Performed By: #### L 100.0500, L501.8820, L500.2500 #### [facility] [address] [place], [address] Sodium [Moles/Vol] 137 mmol/L Normal 133-145 [facility] Comment on above: Performed By: #### L 100.0500, L501.8820, L500.2500 #### [facility] [address] [place], [address] Urea nitrogen [Mass/Vol] 18 mg/dL Normal 4-19 [facility] Comment on above: Performed By: #### L 100.0500, L501.8820, L500.2500 #### [facility] [address] [place], [address] CBC-Complete Blood Cnt No Di ffon 05-06-2025 Erythrocyte distribution width (RBC) [Ratio] 12.9 % Normal 11.6-14.6 [facility] Comment on above: Performed By: #### L 100.0500, L501.8820, L500.2500 #### [facility] [address] [place], [address] Hematocrit (Bld) [Volume fraction] 32.4 % Low 40-54 [facility] Comment on above: Performed By: #### L 100.0500, L501.8820, L500.2500 #### [facility] [address] [place], [address] Hemoglobin (Bld) [Mass/Vol] 11.2 g/dL Low 13.0-16.5 [facility] Comment on above: Performed By: #### L 100.0500, L501.8820, L500.2500 #### [facility] [address] [place], [address] MCH (RBC) [Entitic mass] 30.7 pg Normal 27.0-32.0 [facility] Comment on above: Performed By: #### L 100.0500, L501.8820, L500.2500 #### [facility] [address] [place], [address] MCHC (RBC) [Mass/Vol] 34.6 g/dL Normal 32-36 [facility] Comment on above: Performed By: #### L 100.0500, L501.8820, L500.2500 #### [facility] [address] [place], [address] MCV (RBC) [Entitic vol] 88.8 fL Normal 80-94 [facility] Comment on above: Performed By: #### L 100.0500, L501.8820, L500.2500 #### [facility] [address] [place], [address] Platelet mean volume (Bld) [Entitic vol] 10.1 fL Normal 6.2-12.0 [facility] Comment on above: Performed By: #### L 100.0500, L501.8820, L500.2500 #### [facility] [address] [place], [address] Platelets (Bld) [#/Vol] 160 10*3/uL Normal 150-450 [facility] Comment on above: Performed By: #### L 100.0500, L501.8820, L500.2500 #### [facility] [address] [place], [address] RBC (Bld) [#/Vol] 3.65 10*6/uL Low 4.6-6.2 [facility] Comment on above: Performed By: #### L 100.0500, L501.8820, L500.2500 #### [facility] [address] [place], [address] RDW SD 41.7 fl Normal 35.1-43.9 [facility] Comment on above: Performed By: #### L 100.0500, L501.8820, L500.2500 #### [facility] [address] [place], [address] WBC (Bld) [#/Vol] 4.1 10*3/uL Low 4.4-11.0 [facility] Comment on above: Performed By: #### L 100.0500, L501.8820, L500.2500 #### [facility] [address] [place], [address] Vancomycin, Trough Levelon 0 05-06-2025 VANCO, TROUGH 13.7 ug/mL Normal 5.0-15.0 [facility] Comment on above: Order Comment: 0840 Result Comment: Naeem mmended goal trough ranges are generally 10-15 mcg/ml for less severe/complicated infections such as cellulitis or UTI and 15-20 mcg/ml for more severe/complicated infections such as bacteremia/sepsis, osteomyelitis, pneumonia or meningitis. Goal trough ranges should take into account indication, patient-specific factors and organism YSABEL. VANCOMYCIN STANDARED DRUG THERAPY TROUGH LEVEL: 5.0 - 15.0 mg/L VANCOMYCIN HIGH INTENSITY THERAPY TROUGH LEVEL: 15.0 - 20.0 mg/L High Intensity therapy recommended for serious life threatening infections include: - Meningitis -Endocarditis -Pneumonia (Ventilator/Healtcare Associated) -Sepsis PLEASE CONTACT PHARMACY SERVICES (#[id number]) FOR INTERPRETATION OF RESULTS. Performed By: #### L 100.0500, L501.8820, L500.2500 #### [facility] [address] [place], [address] Basic Metabolic Profile (BMP )on 04-30-2025 BUN/CRE 17.4 RATIO Normal 10-20 [facility] Comment on above: Performed By: #### L 500.4050, L500.4100 #### [facility] [address] [place], [address] Calcium [Mass/Vol] 9.2 mg/dL Normal 7.6-11.0 [facility] Comment on above: Performed By: #### L 500.4050, L500.4100 #### [facility] [address] [place], [address] Chloride [Moles/Vol] 101 mmol/L Normal 98-108 [facility] Comment on above: Performed By: #### L 500.4050, L500.4100 #### [facility] [address] [place], [address] CO2 [Moles/Vol] 24.8 mmol/L Normal 21.0-32.0 [facility] Comment on above: Performed By: #### L 500.4050, L500.4100 #### [facility] [address] [place], [address] Creatinine [Mass/Vol] 1.00 mg/dL Normal 0.70-1.20 [facility] Comment on above: Performed By: #### L 500.4050, L500.4100 #### [facility] [address] [place], [address] GAP 11 Normal 5-15 [facility] Comment on above: Performed By: #### L 500.4050, L500.4100 #### [facility] [address] [place], [address] GFR/1.73 sq M.predicted among non-blacks MDRD (S/P/Bld) [Vol rate/Area] 78 mL/min/{1.73_m2} Normal >60 [facility] Comment on above: Result Comment: mL/m in/1.73m2 CKD-EPI Creatinine Equation (2020) Performed By: #### L 500.4050, L500.4100 #### [facility] [address] [place], [address] Glucose [Mass/Vol] 151 mg/dL High 70-99 [facility] Comment on above: Performed By: #### L 500.4050, L500.4100 #### [facility] [address] [place], [address] Potassium [Moles/Vol] 4.0 mmol/L Normal 3.3-5.1 [facility] Comment on above: Performed By: #### L 500.4050, L500.4100 #### [facility] [address] [place], [address] Sodium [Moles/Vol] 137 mmol/L Normal 133-145 [facility] Comment on above: Performed By: #### L 500.4050, L500.4100 #### [facility] [address] [place], [address] Urea nitrogen [Mass/Vol] 17 mg/dL Normal 4-19 [facility] Comment on above: Performed By: #### L 500.4050, L500.4100 #### [facility] [address] [place], [address] CBC-Complete Blood Cnt No Di ffon 04-30-2025 Erythrocyte distribution width (RBC) [Ratio] 13.1 % Normal 11.6-14.6 [facility] Comment on above: Performed By: #### L 500.4050, L500.4100 #### [facility] [address] [place], [address] Hematocrit (Bld) [Volume fraction] 32.1 % Low 40-54 [facility] Comment on above: Performed By: #### L 500.4050, L500.4100 #### [facility] [address] [place], [address] Hemoglobin (Bld) [Mass/Vol] 10.8 g/dL Low 13.0-16.5 [facility] Comment on above: Performed By: #### L 500.4050, L500.4100 #### [facility] [address] [place], [address] MCH (RBC) [Entitic mass] 30.5 pg Normal 27.0-32.0 [facility] Comment on above: Performed By: #### L 500.4050, L500.4100 #### [facility] [address] [place], [address] MCHC (RBC) [Mass/Vol] 33.6 g/dL Normal 32-36 [facility] Comment on above: Performed By: #### L 500.4050, L500.4100 #### [facility] [address] [place], [address] MCV (RBC) [Entitic vol] 90.7 fL Normal 80-94 [facility] Comment on above: Performed By: #### L 500.4050, L500.4100 #### [facility] [address] [place], [address] Platelet mean volume (Bld) [Entitic vol] 10.3 fL Normal 6.2-12.0 [facility] Comment on above: Performed By: #### L 500.4050, L500.4100 #### [facility] [address] [place], [address] Platelets (Bld) [#/Vol] 209 10*3/uL Normal 150-450 [facility] Comment on above: Performed By: #### L 500.4050, L500.4100 #### [facility] [address] [place], [address] RBC (Bld) [#/Vol] 3.54 10*6/uL Low 4.6-6.2 [facility] Comment on above: Performed By: #### L 500.4050, L500.4100 #### [facility] [address] [place], [address] RDW SD 43.1 fl Normal 35.1-43.9 [facility] Comment on above: Performed By: #### L 500.4050, L500.4100 #### [facility] [address] [place], [address] WBC (Bld) [#/Vol] 4.7 10*3/uL Normal 4.4-11.0 [facility] Comment on above: Performed By: #### L 500.4050, L500.4100 #### [facility] [address] [place], [address] Vancomycin, Trough Levelon 0 04-30-2025 VANCO, TROUGH 12.6 ug/mL Normal 5.0-15.0 [facility] Comment on above: Order Comment: 0900 Result Comment: Naeem mmended goal trough ranges are generally 10-15 mcg/ml for less severe/complicated infections such as cellulitis or UTI and 15-20 mcg/ml for more severe/complicated infections such as bacteremia/sepsis, osteomyelitis, pneumonia or meningitis. Goal trough ranges should take into account indication, patient-specific factors and organism YSABEL. VANCOMYCIN STANDARED DRUG THERAPY TROUGH LEVEL: 5.0 - 15.0 mg/L VANCOMYCIN HIGH INTENSITY THERAPY TROUGH LEVEL: 15.0 - 20.0 mg/L High Intensity therapy recommended for serious life threatening infections include: - Meningitis -Endocarditis -Pneumonia (Ventilator/Healtcare Associated) -Sepsis PLEASE CONTACT PHARMACY SERVICES (#[id number]) FOR INTERPRETATION OF RESULTS. Performed By: #### L 500.4050, L500.4100 #### [facility] [address] [place], [address] Basic Metabolic Profile (BMP )on 04-24-2025 BUN Normal 4-19 [facility] Comment on above: Result Comment: Canc elled via OM: Order cancelled - Patient discharged Performed By: #### L 501.080 #### [facility] [address] [place], [address] BUN/CRE Normal 10-20 [facility] Comment on above: Result Comment: Canc elled via OM: Order cancelled - Patient discharged Performed By: #### L 501.080 #### [facility] [address] [place], [address] Calcium Normal 7.6-11.0 [facility] Comment on above: Result Comment: Canc elled via OM: Order cancelled - Patient discharged Performed By: #### L 501.080 #### [facility] [address] [place], [address] CL Normal 98-108 [facility] Comment on above: Result Comment: Canc elled via OM: Order cancelled - Patient discharged Performed By: #### L 501.080 #### [facility] [address] [place], [address] CO2 Normal 21.0-32.0 [facility] Comment on above: Result Comment: Canc elled via OM: Order cancelled - Patient discharged Performed By: #### L 501.080 #### [facility] [address] [place], [address] CREAT,SERUM Normal 0.70-1.20 [facility] Comment on above: Result Comment: Canc elled via OM: Order cancelled - Patient discharged Performed By: #### L 501.080 #### [facility] [address] [place], [address] eGFR Normal >60 [facility] Comment on above: Result Comment: Canc elled via OM: Order cancelled - Patient discharged Performed By: #### L 501.080 #### [facility] [address] [place], [address] GAP Normal 5-15 [facility] Comment on above: Result Comment: Canc elled via OM: Order cancelled - Patient discharged Performed By: #### L 501.080 #### [facility] [address] [place], [address] GLU Normal 70-99 [facility] Comment on above: Result Comment: Canc elled via OM: Order cancelled - Patient discharged Performed By: #### L 501.080 #### [facility] [address] [place], [address] Potassium Normal 3.3-5.1 [facility] Comment on above: Result Comment: Canc elled via OM: Order cancelled - Patient discharged Performed By: #### L 501.080 #### [facility] [address] [place], [address] Basic Metabolic Profile (BMP) Normal 133-145 [facility] Comment on above: Result Comment: Canc elled via OM: Order cancelled - Patient discharged Performed By: #### L 501.080 #### [facility] [address] [place], [address] CBC W/Diff, Automatedon 08-2 -2024 Absolute Neut Normal 2.0-7.7 [facility] Comment on above: Result Comment: Canc elled via OM: Order cancelled - Patient discharged Performed By: #### L 501.080 #### [facility] [address] [place], [address] HCT Normal 40-54 [facility] Comment on above: Result Comment: Canc elled via OM: Order cancelled - Patient discharged Performed By: #### L 501.080 #### [facility] [address] [place], [address] HGB Normal 13.0-16.5 [facility] Comment on above: Result Comment: Canc elled via OM: Order cancelled - Patient discharged Performed By: #### L 501.080 #### [facility] [address] [place], [address] MCH Normal 27.0-32.0 [facility] Comment on above: Result Comment: Canc elled via OM: Order cancelled - Patient discharged Performed By: #### L 501.080 #### [facility] [address] [place], [address] MCHC Normal 32-36 [facility] Comment on above: Result Comment: Canc elled via OM: Order cancelled - Patient discharged Performed By: #### L 501.080 #### [facility] [address] [place], [address] MCV Normal 80-94 [facility] Comment on above: Result Comment: Canc elled via OM: Order cancelled - Patient discharged Performed By: #### L 501.080 #### [facility] [address] [place], [address] NEUT% Normal 47-70 [facility] Comment on above: Result Comment: Canc elled via OM: Order cancelled - Patient discharged Performed By: #### L 501.080 #### [facility] [address] [place], [address] PLT Normal 150-450 [facility] Comment on above: Result Comment: Canc elled via OM: Order cancelled - Patient discharged Performed By: #### L 501.080 #### [facility] [address] [place], [address] RBC Normal 4.6-6.2 [facility] Comment on above: Result Comment: Canc elled via OM: Order cancelled - Patient discharged Performed By: #### L 501.080 #### [facility] [address] [place], [address] RDW CV Normal 11.6-14.6 [facility] Comment on above: Result Comment: Canc elled via OM: Order cancelled - Patient discharged Performed By: #### L 501.080 #### [facility] [address] [place], [address] RDW SD Normal 35.1-43.9 [facility] Comment on above: Result Comment: Canc elled via OM: Order cancelled - Patient discharged Performed By: #### L 501.080 #### [facility] [address] [place], [address] WBC Normal 4.4-11.0 [facility] Comment on above: Result Comment: Canc elled via OM: Order cancelled - Patient discharged Performed By: #### L 501.080 #### [facility] [address] [place], [address] BMP - EXTERNALon 04-23-2025 Anion gap [Moles/Vol] 11 mmol/L [facility] GFR 83 mL/MIN [facility] HCO3 (Bld) [Moles/Vol] 25.1 mmol/L [facility] Urea nitrogen [Mass/Vol] 17.1 mg/dL 6 - 20 mg/dL [facility] Basic Metabolic Profile (BMP )on 04-23-2025 BUN/CRE 17.1 RATIO Normal 10-20 [facility] Comment on above: Performed By: #### L 100.0500, L501.8820, L500.2500 ####[facility] [address], [address] Calcium [Mass/Vol] 9.6 mg/dL Normal 7.6-11.0 [facility] Comment on above: Performed By: #### L 100.0500, L501.8820, L500.2500 ####[facility] [address] [place], [address] Chloride [Moles/Vol] 99 mmol/L Normal 98-108 [facility] Comment on above: Performed By: #### L 100.0500, L501.8820, L500.2500 ####[facility] [address], [address] CO2 [Moles/Vol] 25.1 mmol/L Normal 21.0-32.0 [facility] Comment on above: Performed By: #### L 100.0500, L501.8820, L500.2500 ####[facility] [address], [address] Creatinine [Mass/Vol] 0.95 mg/dL Normal 0.70-1.20 [facility] Comment on above: Performed By: #### L 100.0500, L501.8820, L500.2500 ####[facility] [address] [place], [address] GAP 11 Normal 5-15 [facility] Comment on above: Performed By: #### L 100.0500, L501.8820, L500.2500 ####[facility] [address] [place], [address] GFR/1.73 sq M.predicted among non-blacks MDRD (S/P/Bld) [Vol rate/Area] 83 mL/min/{1.73_m2} Normal >60 [facility] Comment on above: Result Comment: mL/m in/1.73m2 CKD-EPI Creatinine Equation (2020) Performed By: #### L 100.0500, L501.8820, L500.2500 ####[facility] [address] [place], [address] Glucose [Mass/Vol] 138 mg/dL High 70-99 [facility] Comment on above: Performed By: #### L 100.0500, L501.8820, L500.2500 ####[facility] [address] [place], [address] Potassium [Moles/Vol] 4.1 mmol/L Normal 3.3-5.1 [facility] Comment on above: Performed By: #### L 100.0500, L501.8820, L500.2500 ####[facility] [address] [place], [address] Sodium [Moles/Vol] 135 mmol/L Normal 133-145 [facility] Comment on above: Performed By: #### L 100.0500, L501.8820, L500.2500 ####[facility] [address] [place], [address] Urea nitrogen [Mass/Vol] 16 mg/dL Normal 4- [facility] Comment on above: Performed By: #### L 100.0500, L501.8820, L500.2500 ####[facility] [address] [place], [address] BUN Normal - [facility] Comment on above: Result Comment: Canc elled via OM: Order cancelled - Patient discharged Performed By: #### L 501.080 #### [facility] [address] [place], [address] BUN/CRE Normal - [facility] Comment on above: Result Comment: Canc elled via OM: Order cancelled - Patient discharged Performed By: #### L 501.080 #### [facility] [address] [place], [address] Calcium Normal 7.6-11.0 [facility] Comment on above: Result Comment: Canc elled via OM: Order cancelled - Patient discharged Performed By: #### L 501.080 #### [facility] [address] [place], [address] CL Normal 98-108 [facility] Comment on above: Result Comment: Canc elled via OM: Order cancelled - Patient discharged Performed By: #### L 501.080 #### [facility] [address] [place], [address] CO2 Normal 21.0-32.0 [facility] Comment on above: Result Comment: Canc elled via OM: Order cancelled - Patient discharged Performed By: #### L 501.080 #### [facility] [address] [place], [address] CREAT,SERUM Normal 0.70-1.20 [facility] Comment on above: Result Comment: Canc elled via OM: Order cancelled - Patient discharged Performed By: #### L 501.080 #### [facility] [address] [place], [address] eGFR Normal >60 [facility] Comment on above: Result Comment: Canc elled via OM: Order cancelled - Patient discharged Performed By: #### L 501.080 #### [facility] [address] [place], [address] GAP Normal 5-15 [facility] Comment on above: Result Comment: Canc elled via OM: Order cancelled - Patient discharged Performed By: #### L 501.080 #### [facility] [address] [place], [address] GLU Normal 70-99 [facility] Comment on above: Result Comment: Canc elled via OM: Order cancelled - Patient discharged Performed By: #### L 501.080 #### [facility] [address] [place], [address] Potassium Normal 3.3-5.1 [facility] Comment on above: Result Comment: Canc elled via OM: Order cancelled - Patient discharged Performed By: #### L 501.080 #### [facility] [address] [place], [address] Basic Metabolic Profile (BMP) Normal 133-145 [facility] Comment on above: Result Comment: Canc elled via OM: Order cancelled - Patient discharged Performed By: #### L 501.080 #### [facility] [address] [place], [address] CBCon 04-23-2025 MCHC (RBC) [Mass/Vol] 35 g/dL 30 - 3 6 g/dL [facility] MCV (RBC) [Entitic vol] 88 fL 80 - 100 fL [facility] RDW-SD 40.5 [facility] CBC W/Diff, Automatedon -10 04-2024 Absolute Neut Normal 2.0-7.7 [facility] Comment on above: Result Comment: Canc elled via OM: Order cancelled - Patient discharged Performed By: #### L 501.080 #### [facility] [address] [place], [address] HCT Normal 40-54 [facility] Comment on above: Result Comment: Canc elled via OM: Order cancelled - Patient discharged Performed By: #### L 501.080 #### [facility] [address] [place], [address] HGB Normal 13.0-16.5 [facility] Comment on above: Result Comment: Canc elled via OM: Order cancelled - Patient discharged Performed By: #### L 501.080 #### [facility] [address] [place], [address] MCH Normal 27.0-32.0 [facility] Comment on above: Result Comment: Canc elled via OM: Order cancelled - Patient discharged Performed By: #### L 501.080 #### [facility] [address] [place], [address] MCHC Normal 32-36 [facility] Comment on above: Result Comment: Canc elled via OM: Order cancelled - Patient discharged Performed By: #### L 501.080 #### [facility] [address] [place], [address] MCV Normal 80-94 [facility] Comment on above: Result Comment: Canc elled via OM: Order cancelled - Patient discharged Performed By: #### L 501.080 #### [facility] [address] [place], [address] NEUT% Normal 47-70 [facility] Comment on above: Result Comment: Canc elled via OM: Order cancelled - Patient discharged Performed By: #### L 501.080 #### [facility] [address] [place], [address] PLT Normal 150-450 [facility] Comment on above: Result Comment: Canc elled via OM: Order cancelled - Patient discharged Performed By: #### L 501.080 #### [facility] [address] [place], [address] RBC Normal 4.6-6.2 [facility] Comment on above: Result Comment: Canc elled via OM: Order cancelled - Patient discharged Performed By: #### L 501.080 #### [facility] [address] [place] [place], [address] RDW CV Normal 11.6-14.6 [facility] Comment on above: Result Comment: Canc elled via OM: Order cancelled - Patient discharged Performed By: #### L 501.080 #### [facility] [address] [place], [address] RDW SD Normal 35.1-43.9 [facility] Comment on above: Result Comment: Canc elled via OM: Order cancelled - Patient discharged Performed By: #### L 501.080 #### [facility] [address] [place], [address] WBC Normal 4.4-11.0 [facility] Comment on above: Result Comment: Canc elled via OM: Order cancelled - Patient discharged Performed By: #### L 501.080 #### [facility] [address] [place], [address] CBC-Complete Blood Cnt No Di ffon 04-23-2025 Erythrocyte distribution width (RBC) [Ratio] 12.8 % Normal 11.6-14.6 [facility] Comment on above: Performed By: #### L 100.0500, L501.8820, L500.2500 #### [facility] [address] [place], [address] Hematocrit (Bld) [Volume fraction] 33.1 % Low 40-54 [facility] Comment on above: Performed By: #### L 100.0500, L501.8820, L500.2500 #### [facility] [address] [place], [address] Hemoglobin (Bld) [Mass/Vol] 11.6 g/dL Low 13.0-16.5 [facility] Comment on above: Performed By: #### L 100.0500, L501.8820, L500.2500 #### [facility] [address] [place], [address] MCH (RBC) [Entitic mass] 30.9 pG Normal 27.0-32.0 [facility] Comment on above: Performed By: #### L 100.0500, L501.8820, L500.2500 #### [facility] [address] [place], [address] MCHC (RBC) [Mass/Vol] 35.0 g/dL Normal 32-36 [facility] Comment on above: Performed By: #### L 100.0500, L501.8820, L500.2500 #### [facility] [address] [place], [address] MCV (RBC) [Entitic vol] 88.0 fL Normal 80-94 [facility] Comment on above: Performed By: #### L 100.0500, L501.8820, L500.2500 #### [facility] [address] [place], [address] Platelet mean volume (Bld) [Entitic vol] 9.4 fL Normal 6.2-12.0 [facility] Comment on above: Performed By: #### L 100.0500, L501.8820, L500.2500 #### [facility] [address] [place], [address] Platelets (Bld) [#/Vol] 236 10*3/uL Normal 150-450 [facility] Comment on above: Performed By: #### L 100.0500, L501.8820, L500.2500 #### [facility] [address] [place], [address] RBC (Bld) [#/Vol] 3.76 10*6/uL Low 4.6-6.2 [facility] Comment on above: Performed By: #### L 100.0500, L501.8820, L500.2500 #### [facility] [address] [place], [address] RDW SD 40.5 fl Normal 35.1-43.9 [facility] Comment on above: Performed By: #### L 100.0500, L501.8820, L500.2500 #### [facility] [address] [place], [address] WBC (Bld) [#/Vol] 6.7 10*3/uL Normal 4.4-11.0 [facility] Comment on above: Performed By: #### L 100.0500, L501.8820, L500.2500 #### [facility] [address] [place], [address] CNPTierney 04-23-2025 CNPN Telephone (FPWADS) ----- ASCENCION WEIR ([id number]) 1950 Date Time Provider Department 04/23/25 AARON SOLORZANO During your visit today, we recorded the following information about you: Eduardo Woodard LPN 04/23/2025 2:42 PM Signed O Received 04/23/2025 from [facility]. Placed in provider's inbox for review. Route to [place] for scanning. Vanco Trough on 04/23/2025 16.9 Allergies As of Date: 04/23/2025 Noted Allergy Reaction ENTEX PSE (PSEUDOEPHEDRINE-GUAIFE*1 10/12/2006 5 - Intolerance Comments: Patient states he does not have any allergies Date Reviewed: 04/01/2025 Reviewed by: Arely Pastrana MA - Fully Assessed Reason for Visit: Received Outside Medical Records [4124] Cmt: [facility] MORENITA CRAIG 04/23/2025 Order(s):BMP - EXTERNAL [[id number]] Order #: [id number] CBC [[id number]] Order #: [id number] Prescriptions as of 04/24/2025 - traMADol (ULTRAM) 50 mg tablet Take 1 tablet by mouth every 6 hours as needed for pain for up to 30 days. - traMADol (ULTRAM) 50 mg tablet Take 50 mg by mouth every 6 hours as needed for pain. - metFORMIN (GLUCOPHAGE) 1,000 mg tablet Take [...] as directed Problem List As Of Date 04/23/2025 Noted Resolved HYPERLIPIDEMIA NEC/NOS [E78.5] 10/29/2015 SCIATICA [...] stenosis [I35.0] 05/31/2019 Coronary artery disease involving marshall malik*09/18/2020 Thrombocytopenia (HCC) [D69.6] 01/07/2023 Longstanding persistent atrial fibrillation (HC*01/07/2023 Peripheral arterial disease (HCC) [I73.9] 06/16/2023 Encounter Status:Closed by EDUARDO WOODARD on 04/24/25 Normal [facility] No Panel Informationon 04-23 Interpretation and review of laboratory results Abnormal [facility] Vancomycin, Trough Levelon 0 04-23-2025 VANCO, TROUGH 16.9 ug/mL High 5.0-15.0 [facility] Comment on above: Order Comment: 1700 Result Comment: Naeem mmended goal trough ranges are generally 10-15 mcg/ml for less severe/complicated infections such as cellulitis or UTI and 15-20 mcg/ml for more severe/complicated infections such as bacteremia/sepsis, osteomyelitis, pneumonia or meningitis. Goal trough ranges should take into account indication, patient-specific factors and organism YSABEL. VANCOMYCIN STANDARED DRUG THERAPY TROUGH LEVEL: 5.0 - 15.0 mg/L VANCOMYCIN HIGH INTENSITY THERAPY TROUGH LEVEL: 15.0 - 20.0 mg/L High Intensity therapy recommended for serious life threatening infections include: - Meningitis -Endocarditis -Pneumonia (Ventilator/Healtcare Associated) -Sepsis PLEASE CONTACT PHARMACY SERVICES (#0076) FOR INTERPRETATION OF RESULTS. Performed By: #### L 100.0500, L501.8820, L500.2500 ####[facility] [address] [facility] [address] Basic Metabolic Profile (BMP )on 04-22-2025 BUN Normal 4-19 [facility] Comment on above: Result Comment: Canc elled via OM: Order cancelled - Patient discharged Performed By: #### L 500.2500, L100.0100 ####[facility] [address] [place], [address] BUN/CRE Normal 10-20 [facility] Comment on above: Result Comment: Canc elled via OM: Order cancelled - Patient discharged Performed By: #### L 500.2500, L100.0100 ####[facility] [address] [place], [address] Calcium Normal 7.6-11.0 [facility] Comment on above: Result Comment: Canc elled via OM: Order cancelled - Patient discharged Performed By: #### L 500.2500, L100.0100 ####[facility] [address] [place], [address] CL Normal 98-108 [facility] Comment on above: Result Comment: Canc elled via OM: Order cancelled - Patient discharged Performed By: #### L 500.2500, L100.0100 ####[facility] [address] [place], [address] CO2 Normal 21.0-32.0 [facility] Comment on above: Result Comment: Canc elled via OM: Order cancelled - Patient discharged Performed By: #### L 500.2500, L100.0100 ####[facility] [address] [place], [address] CREAT,SERUM Normal 0.70-1.20 [facility] Comment on above: Result Comment: Canc elled via OM: Order cancelled - Patient discharged Performed By: #### L 500.2500, L100.0100 ####[facility] [address] [place], [address] eGFR Normal >60 [facility] Comment on above: Result Comment: Canc elled via OM: Order cancelled - Patient discharged Performed By: #### L 500.2500, L100.0100 ####[facility] [address] [place], [address] GAP Normal 5-15 [facility] Comment on above: Result Comment: Canc elled via OM: Order cancelled - Patient discharged Performed By: #### L 500.2500, L100.0100 ####[facility] [address] [place], [address] GLU Normal 70-99 [facility] Comment on above: Result Comment: Canc elled via OM: Order cancelled - Patient discharged Performed By: #### L 500.2500, L100.0100 ####[facility] [address] [place], [address] Potassium Normal 3.3-5.1 [facility] Comment on above: Result Comment: Canc elled via OM: Order cancelled - Patient discharged Performed By: #### L 500.2500, L100.0100 ####[facility] [address] [place], [address] Basic Metabolic Profile (BMP) Normal 133-145 [facility] Comment on above: Result Comment: Canc elled via OM: Order cancelled - Patient discharged Performed By: #### L 500.2500, L100.0100 ####[facility] [address] [place], [address] CBC W/Diff, Automatedon 08-2 -2024 Absolute Neut Normal 2.0-7.7 [facility] Comment on above: Result Comment: Canc elled via OM: Order cancelled - Patient discharged Performed By: #### L 500.2500, L100.0100 ####[facility] [address] [place], [address] HCT Normal 40-54 [facility] Comment on above: Result Comment: Canc elled via OM: Order cancelled - Patient discharged Performed By: #### L 500.2500, L100.0100 ####[facility] [address] [place], [address] HGB Normal 13.0-16.5 [facility] Comment on above: Result Comment: Canc elled via OM: Order cancelled - Patient discharged Performed By: #### L 500.2500, L100.0100 ####[facility] [address] [place], [address] MCH Normal 27.0-32.0 [facility] Comment on above: Result Comment: Canc elled via OM: Order cancelled - Patient discharged Performed By: #### L 500.2500, L100.0100 ####[facility] [address] [place], [address] MCHC Normal 32-36 [facility] Comment on above: Result Comment: Canc elled via OM: Order cancelled - Patient discharged Performed By: #### L 500.2500, L100.0100 ####[facility] [address] [place], [address] MCV Normal 80-94 [facility] Comment on above: Result Comment: Canc elled via OM: Order cancelled - Patient discharged Performed By: #### L 500.2500, L100.0100 ####[facility] [address] [place], [address] NEUT% Normal 47-70 [facility] Comment on above: Result Comment: Canc elled via OM: Order cancelled - Patient discharged Performed By: #### L 500.2500, L100.0100 ####[facility] [address] [place], [address] PLT Normal 150-450 [facility] Comment on above: Result Comment: Canc elled via OM: Order cancelled - Patient discharged Performed By: #### L 500.2500, L100.0100 ####[facility] [address] [place], [address] RBC Normal 4.6-6.2 [facility] Comment on above: Result Comment: Canc elled via OM: Order cancelled - Patient discharged Performed By: #### L 500.2500, L100.0100 ####[facility] [address] [place], [address] RDW CV Normal 11.6-14.6 [facility] Comment on above: Result Comment: Canc elled via OM: Order cancelled - Patient discharged Performed By: #### L 500.2500, L100.0100 ####[facility] [address], [address] RDW SD Normal 35.1-43.9 [facility] Comment on above: Result Comment: Canc elled via OM: Order cancelled - Patient discharged Performed By: #### L 500.2500, L100.0100 ####[facility] [address] [place], [address] WBC Normal 4.4-11.0 [facility] Comment on above: Result Comment: Canc elled via OM: Order cancelled - Patient discharged Performed By: #### L 500.2500, L100.0100 ####[facility] [address], [address] Basic Metabolic Profile (BMP )on 04-21-2025 BUN Normal 4-19 [facility] Comment on above: Result Comment: Canc elled via OM: Order cancelled - Patient discharged Performed By: #### L 500.4050, L500.4100 #### [facility] [address] [place], [address] BUN/CRE Normal 10-20 [facility] Comment on above: Result Comment: Canc elled via OM: Order cancelled - Patient discharged Performed By: #### L 500.4050, L500.4100 #### [facility] [address] [place], [address] Calcium Normal 7.6-11.0 [facility] Comment on above: Result Comment: Canc elled via OM: Order cancelled - Patient discharged Performed By: #### L 500.4050, L500.4100 #### [facility] [address] [place], [address] CL Normal 98-108 [facility] Comment on above: Result Comment: Canc elled via OM: Order cancelled - Patient discharged Performed By: #### L 500.4050, L500.4100 #### [facility] [address] [place], [address] CO2 Normal 21.0-32.0 [facility] Comment on above: Result Comment: Canc elled via OM: Order cancelled - Patient discharged Performed By: #### L 500.4050, L500.4100 #### [facility] [address] [place], [address] CREAT,SERUM Normal 0.70-1.20 [facility] Comment on above: Result Comment: Canc elled via OM: Order cancelled - Patient discharged Performed By: #### L 500.4050, L500.4100 #### [facility] [address] [place], [address] eGFR Normal >60 [facility] Comment on above: Result Comment: Canc elled via OM: Order cancelled - Patient discharged Performed By: #### L 500.4050, L500.4100 #### [facility] [address] [place], [address] GAP Normal 5-15 [facility] Comment on above: Result Comment: Canc elled via OM: Order cancelled - Patient discharged Performed By: #### L 500.4050, L500.4100 #### [facility] [address] [place], [address] GLU Normal 70-99 [facility] Comment on above: Result Comment: Canc elled via OM: Order cancelled - Patient discharged Performed By: #### L 500.4050, L500.4100 #### [facility] [address] [place], [address] Potassium Normal 3.3-5.1 [facility] Comment on above: Result Comment: Canc elled via OM: Order cancelled - Patient discharged Performed By: #### L 500.4050, L500.4100 #### [facility] [address] [place], [address] Basic Metabolic Profile (BMP) Normal 133-145 [facility] Comment on above: Result Comment: Canc elled via OM: Order cancelled - Patient discharged Performed By: #### L 500.4050, L500.4100 #### [facility] [address] [place], [address] CBC W/Diff, Automatedon 08-2 Absolute Neut Normal 2.0-7.7 [facility] Comment on above: Result Comment: Canc elled via OM: Order cancelled - Patient discharged Performed By: #### L 500.4050, L500.4100 #### [facility] [address] [place], [address] HCT Normal 40-54 [facility] Comment on above: Result Comment: Canc elled via OM: Order cancelled - Patient discharged Performed By: #### L 500.4050, L500.4100 #### [facility] [address] [place], [address] HGB Normal 13.0-16.5 [facility] Comment on above: Result Comment: Canc elled via OM: Order cancelled - Patient discharged Performed By: #### L 500.4050, L500.4100 #### [facility] [address] [place], [address] MCH Normal 27.0-32.0 [facility] Comment on above: Result Comment: Canc elled via OM: Order cancelled - Patient discharged Performed By: #### L 500.4050, L500.4100 #### [facility] [address] [place], [address] MCHC Normal 32-36 [facility] [facility] Comment on above: Result Comment: Canc elled via OM: Order cancelled - Patient discharged Performed By: #### L 500.4050, L500.4100 #### [facility] [address] [place], [address] MCV Normal 80-94 [facility] Comment on above: Result Comment: Canc elled via OM: Order cancelled - Patient discharged Performed By: #### L 500.4050, L500.4100 #### [facility] [address] [place], [address] NEUT% Normal 47-70 [facility] Comment on above: Result Comment: Canc elled via OM: Order cancelled - Patient discharged Performed By: #### L 500.4050, L500.4100 #### [facility] [address] [place], [address] PLT Normal 150-450 [facility] Comment on above: Result Comment: Canc elled via OM: Order cancelled - Patient discharged Performed By: #### L 500.4050, L500.4100 #### [facility] [address] [place], [address] RBC Normal 4.6-6.2 [facility] Comment on above: Result Comment: Canc elled via OM: Order cancelled - Patient discharged Performed By: #### L 500.4050, L500.4100 #### [facility] [address] [place], [address] RDW CV Normal 11.6-14.6 [facility] Comment on above: Result Comment: Canc elled via OM: Order cancelled - Patient discharged Performed By: #### L 500.4050, L500.4100 #### [facility] [address] [place], [address] RDW SD Normal 35.1-43.9 [facility] Comment on above: Result Comment: Canc elled via OM: Order cancelled - Patient discharged Performed By: #### L 500.4050, L500.4100 #### [facility] [address] [place], [address] WBC Normal 4.4-11.0 [facility] Comment on above: Result Comment: Canc elled via OM: Order cancelled - Patient discharged Performed By: #### L 500.4050, L500.4100 #### [facility] [address] [place], [address] Culture, Blood (WB)on 2024 CUB No growth in 5 days. Normal [facility] Comment on above: Performed By: #### M 200.1000 ####[facility] [address] [place], [address] Basic Metabolic Profile (BMP )on 04-20-2025 BUN Normal 4-19 [facility] Comment on above: Result Comment: Canc elled via OM: Order cancelled - Patient discharged Performed By: #### L 501.080 #### [facility] [address] [place], [address] BUN/CRE Normal 10-20 [facility] Comment on above: Result Comment: Canc elled via OM: Order cancelled - Patient discharged Performed By: #### L 501.080 #### [facility] [address] [place], [address] Calcium Normal 7.6-11.0 [facility] Comment on above: Result Comment: Canc elled via OM: Order cancelled - Patient discharged Performed By: #### L 501.080 #### [facility] [address] [place], [address] CL Normal 98-108 [facility] Comment on above: Result Comment: Canc elled via OM: Order cancelled - Patient discharged Performed By: #### L 501.080 #### [facility] [address] [place], [address] CO2 Normal 21.0-32.0 [facility] Comment on above: Result Comment: Canc elled via OM: Order cancelled - Patient discharged Performed By: #### L 501.080 #### [facility] [address] [place], [address] CREAT,SERUM Normal 0.70-1.20 [facility] Comment on above: Result Comment: Canc elled via OM: Order cancelled - Patient discharged Performed By: #### L 501.080 #### [facility] [address] [place], [address] eGFR Normal >60 [facility] Comment on above: Result Comment: Canc elled via OM: Order cancelled - Patient discharged Performed By: #### L 501.080 #### [facility] [address] [place], [address] GAP Normal 5-15 [facility] Comment on above: Result Comment: Canc elled via OM: Order cancelled - Patient discharged Performed By: #### L 501.080 #### [facility] [address] [place], [address] GLU Normal 70-99 [facility] Comment on above: Result Comment: Canc elled via OM: Order cancelled - Patient discharged Performed By: #### L 501.080 #### [facility] [address] [place], [address] Potassium Normal 3.3-5.1 [facility] Comment on above: Result Comment: Canc elled via OM: Order cancelled - Patient discharged Performed By: #### L 501.080 #### [facility] [address] [place], [address] Basic Metabolic Profile (BMP) Normal 133-145 [facility] Comment on above: Result Comment: Canc elled via OM: Order cancelled - Patient discharged Performed By: #### L 501.080 #### [facility] [address] [place], [address] CBC W/Diff, Automatedon 08-2 Absolute Neut Normal 2.0-7.7 [facility] Comment on above: Result Comment: Canc elled via OM: Order cancelled - Patient discharged Performed By: #### L 501.080 #### [facility] [address] [place], [address] HCT Normal 40-54 [facility] Comment on above: Result Comment: Canc elled via OM: Order cancelled - Patient discharged Performed By: #### L 501.080 #### [facility] [address] [place], [address] HGB Normal 13.0-16.5 [facility] Comment on above: Result Comment: Canc elled via OM: Order cancelled - Patient discharged Performed By: #### L 501.080 #### [facility] [address] [place], [address] MCH Normal 27.0-32.0 [facility] Comment on above: Result Comment: Canc elled via OM: Order cancelled - Patient discharged Performed By: #### L 501.080 #### [facility] [address] [place], [address] MCHC Normal 32-36 [facility] Comment on above: Result Comment: Canc elled via OM: Order cancelled - Patient discharged Performed By: #### L 501.080 #### [facility] [address] [place], [address] MCV Normal 80-94 [facility] Comment on above: Result Comment: Canc elled via OM: Order cancelled - Patient discharged Performed By: #### L 501.080 #### [facility] [address] [place], [address] NEUT% Normal 47-70 [facility] Comment on above: Result Comment: Canc elled via OM: Order cancelled - Patient discharged Performed By: #### L 501.080 #### [facility] [address] [place], [address] PLT Normal 150-450 [facility] Comment on above: Result Comment: Canc elled via OM: Order cancelled - Patient discharged Performed By: #### L 501.080 #### [facility] [address] [place], [address] RBC Normal 4.6-6.2 [facility] Comment on above: Result Comment: Canc elled via OM: Order cancelled - Patient discharged Performed By: #### L 501.080 #### [facility] [address] [place], [address] RDW CV Normal 11.6-14.6 [facility] Comment on above: Result Comment: Canc elled via OM: Order cancelled - Patient discharged Performed By: #### L 501.080 #### [facility] [address] [place], [address] RDW SD Normal 35.1-43.9 [facility] Comment on above: Result Comment: Canc elled via OM: Order cancelled - Patient discharged Performed By: #### L 501.080 #### [facility] [address] [place], [address] WBC Normal 4.4-11.0 [facility] Comment on above: Result Comment: Canc elled via OM: Order cancelled - Patient discharged Performed By: #### L 501.080 #### [facility] [address] [place], [address] Culture, Blood (WB)on 2024 CUB No growth in 5 days. Normal [facility] Comment on above: Performed By: #### M 100.638 #### [facility] [address] [place], [address] Absolute lymphocyte countOrd ered By: Margarita Harris on 04-19-2025 Lymphocytes Auto (Unsp spec) [#/Vol] 1.07 10*3/uL 0.83-4.51 [facility] Absolute neutrophil countOrd ered By: Margarita Harris on 04-19-2025 Neutrophils (Bld) [#/Vol] 1.6 10*3/uL Low 2.0-7.7 [facility] Anion gap in Serum or Plasma Ordered By: Margarita Harris on 04-19-2025 Anion gap [Moles/Vol] 12 mmol/L 5-15 [facility] Automated lymphocyte count a s percentage of total leukocytesOrdered By: Margarita Harris on 04-19-2025 Lymphocytes/100 WBC Auto (Unsp spec) 30.1 % [facility] BUN/creatinine ratioOrdered By: Margarita Kimberly on 04-19-2025 Urea nitrogen/Creatinine [Mass ratio] 12.7 mg/mg 06-17 [facility] Basic Metabolic Profile (BMP )on 04-19-2025 BUN/CRE 12.7 RATIO Normal 06-17 [facility] Comment on above: Performed By: #### L 500.4050, L500.4100 #### [facility] [address] [place], [address] Calcium [Mass/Vol] 9.0 mg/dL Normal 7.6-11.0 [facility] Comment on above: Performed By: #### L 500.4050, L500.4100 #### [facility] [address] [place], [address] Chloride [Moles/Vol] 102 mmol/L Normal 98-108 [facility] Comment on above: Performed By: #### L 500.4050, L500.4100 #### [facility] [address] [place], [address] CO2 [Moles/Vol] 23.6 mmol/L Normal 21.0-32.0 [facility] Comment on above: Performed By: #### L 500.4050, L500.4100 #### [facility] [address] [place], [address] Creatinine [Mass/Vol] 0.82 mg/dL Normal 0.70-1.20 [facility] Comment on above: Performed By: #### L 500.4050, L500.4100 #### [facility] [address] [place], [address] ECRCL 78.05 ml/min Normal 50-250 [facility] Comment on above: Performed By: #### L 500.4050, L500.4100 #### [facility] [address] [place], [address] GAP 12 Normal 5-15 [facility] Comment on above: Performed By: #### L 500.4050, L500.4100 #### [facility] [address] [place], [address] GFR/1.73 sq M.predicted among non-blacks MDRD (S/P/Bld) [Vol rate/Area] 91 mL/min/{1.73_m2} Normal >60 [facility] Comment on above: Result Comment: mL/m in/1.73m2 CKD-EPI Creatinine Equation (2020) Performed By: #### L 500.4050, L500.4100 #### [facility] [address] [place], [address] Glucose [Mass/Vol] 238 mg/dL High 70-99 [facility] Comment on above: Performed By: #### L 500.4050, L500.4100 #### [facility] [address] [place], [address] Potassium [Moles/Vol] 3.9 mmol/L Normal 3.3-5.1 [facility] Comment on above: Performed By: #### L 500.4050, L500.4100 #### [facility] [address] [place], [address] Sodium [Moles/Vol] 137 mmol/L Normal 133-145 [facility] Comment on above: Performed By: #### L 500.4050, L500.4100 #### [facility] [address] [place], [address] Urea nitrogen [Mass/Vol] 10 mg/dL Normal 4-19 [facility] Comment on above: Performed By: #### L 500.4050, L500.4100 #### [facility] [address] [place], [address] Basophil percentageOrdered B y: Margarita Harris on 04-19-2025 Basophils/100 WBC (Bld) 0.6 % 0-1 [facility] Bedside Glucoseon 04-19-2025 FINGERSTICK GLU 221 mg/dL High 74-106 [facility] Comment on above: Result Comment: JOHNSON GEMENT OF PATIENT CARE PER NURSING PROTOCOL Performed By: #### L 501.080 #### [facility] [address] [place], [address] FINGERSTICK GLU 234 mg/dL High 74-106 [facility] Comment on above: Result Comment: JOHNSON GEMENT OF PATIENT CARE PER NURSING PROTOCOL Performed By: #### L 501.080 #### [facility] [address] [place], [address] CBC W/Diff, Automatedon 03-30 Absolute Lymph 1.07 X10 3/uL Normal 0.83-4.51 [facility] Comment on above: Performed By: #### L 500.4050, L500.4100 #### [facility] [address] [place], [address] Absolute Neut 1.6 X10 3/uL Low 2.0-7.7 [facility] Comment on above: Performed By: #### L 500.4050, L500.4100 #### [facility] [address] [place], [address] Basophils/100 WBC (Bld) 0.6 % Normal 0-1 [facility] Comment on above: Performed By: #### L 500.4050, L500.4100 #### [facility] [address] [place], [address] Eosinophils/100 WBC (Bld) 6.5 % High 0-5 [facility] Comment on above: Performed By: #### L 500.4050, L500.4100 #### [facility] [address] [place], [address] Erythrocyte distribution width (RBC) [Ratio] 12.7 % Normal 11.6-14.6 [facility] Comment on above: Performed By: #### L 500.4050, L500.4100 #### [facility] [address] [place], [address] Hematocrit (Bld) [Volume fraction] 31.5 % Low 40-54 [facility] Comment on above: Performed By: #### L 500.4050, L500.4100 #### [facility] [address] [place], [address] Hemoglobin (Bld) [Mass/Vol] 11.4 g/dL Low 13.0-16.5 [facility] Comment on above: Performed By: #### L 500.4050, L500.4100 #### [facility] [address] [place], [address] IG% 0.300 Normal 0.0-0.9 [facility] Comment on above: Result Comment: IG% - Immature Granulocytes (promyelocytes, myelocytes and metamyelocytes) > 1% indicates that a LEFT SHIFT is Present. Performed By: #### L 500.4050, L500.4100 #### [facility] [address] [place], [address] Lymphocytes/100 WBC (Bld) 30.1 % Normal 19-41 [facility] Comment on above: Performed By: #### L 500.4050, L500.4100 #### [facility] [address] [place], [address] MCH (RBC) [Entitic mass] 31.7 pg Normal 27.0-32.0 [facility] Comment on above: Performed By: #### L 500.4050, L500.4100 #### [facility] [address] [place], [address] MCHC (RBC) [Mass/Vol] 36.2 g/dL High 32-36 [facility] Comment on above: Performed By: #### L 500.4050, L500.4100 #### [facility] [address] [place], [address] MCV (RBC) [Entitic vol] 87.5 fL Normal 80-94 [facility] Comment on above: Performed By: #### L 500.4050, L500.4100 #### [facility] [address] [place], [address] Monocytes/100 WBC (Bld) 17.7 % High 0-10 [facility] Comment on above: Performed By: #### L 500.4050, L500.4100 #### [facility] [address] [place], [address] Neutrophils/100 WBC (Bld) 44.8 % Low 47-70 [facility] Comment on above: Performed By: #### L 500.4050, L500.4100 #### [facility] [address] [place], [address] Nucleated RBC (Bld) [#/Vol] 0 10*3/uL Normal 0-5 [facility] Comment on above: Performed By: #### L 500.4050, L500.4100 #### [facility] [address] [place], [address] Platelet mean volume (Bld) [Entitic vol] 9.4 fL Normal 6.2-12.0 [facility] Comment on above: Performed By: #### L 500.4050, L500.4100 #### [facility] [address] [place], [address] Platelets (Bld) [#/Vol] 109 10*3/uL Low 150-450 [facility] Comment on above: Performed By: #### L 500.4050, L500.4100 #### [facility] [address] [place], [address] RBC (Bld) [#/Vol] 3.60 10*6/uL Low 4.6-6.2 [facility] Comment on above: Performed By: #### L 500.4050, L500.4100 #### [facility] [address] [place], [address] RDW SD 40.7 fl Normal 35.1-43.9 [facility] Comment on above: Performed By: #### L 500.4050, L500.4100 #### [facility] [address] [place], [address] WBC (Bld) [#/Vol] 3.6 10*3/uL Low 4.4-11.0 [facility] Comment on above: Performed By: #### L 500.4050, L500.4100 #### [facility] [address] [place], [address] Carbon dioxide, total [Moles /volume] in Central venous bloodOrdered By: Margarita Harris on 04-19-2025 CO2 [Moles/Vol] 23.6 mmol/L 21.0-32.0 [facility] Chloride assayOrdered By: Julianne Harris on 04-19-2025 Chloride [Moles/Vol] 102 mmol/L 98-108 [facility] Discharge Instructionon 03-30 Discharge Instruction [facility] Medical Records Department [address] [place] [address] Instructions for Home/Discharge Instructions 04/19/25 1436 MR#: [id number] Acct: [id number] Name: ASCENCION WEIR Rep #: [id number] : 1950 74 From: Margarita Harris MD PCP: Dr. Mike Solorzano MD Status:ADM IN Discharge Instructions DC O2, CPAP, BIPAP needs Home O2 Discharge instructions: No Dressing / Incision Discharge Activity: Return to Normal Activity Dressing / Incision Call your doctor if you observe: Fever of 101 or Higher, Shortness of breath, Dizziness, Swelling in the ankles and Chest pain Follow Up Care Test Results: Test results from this visit will be discussed in further detail at your follow-up appointment, if applicable. Discharge Plan Admission Admit Date/Time: 04/15/25 19:38 Primary Reason for Your Visit: MRSA bacteremia Attending Provider: Margarita Harris Primary Care Provider: Mike Solorzano Consulting Providers: Debora Diaz; Alex Gonzales Instructions Patient Instructions: MRSA, ED Bacteremia, Suspected (Adult) Discharge Orders/Prescriptions Prescriptions: New vancomycin 1,000 mg recon soln 1,000 mg IV Q12H 25 Days Qty: 50 0RF Rx Instructions: stop date 05/14/25. Dx: MRSA bacteremia. Weekly bmp, cbc, and vanc trough. Fax to [phone]. Routine picc care per protocol. Continued hydroxychloroquine 200 mg tablet 200 mg PO DAILY gabapentin 400 mg capsule 400 mg PO TID multivitamin Tablet 1 tab PO DAILY atorvastatin 20 mg tablet 20 mg PO QHS metoprolol succinate 50 mg tablet extended release 24 hr 50 mg PO QDAY metformin 500 MG tablet 1,000 mg PO BIDCM Patient Comments: diabetes tamsulosin 0.4 MG capsule 0.4 mg PO QHS Patient Comments: bladder aspirin 81 MG tablet,chewable 81 mg PO DAILY Patient Comments: heart health tramadol 50 MG tablet 50 mg PO Q6H PRN PRN (Reason: Pain Or Fever) metoprolol succinate 100 mg tablet extended release 24 hr 50 mg PO DAILY celecoxib [Celebrex] 200 mg capsule 200 mg PO BID Referrals / Follow Up: Mike Solorzano MD [Primary Care Provider] - Within 1 Week Alex Gonzales MD [Med Staff - Active Staff] - Within 2 Weeks Disposition Disposition (needs filled in before D/C Order can be placed): Home, Self Care 04/19/25 0647 Margarita Harris MD CC: Dr. Mike Solorzano MD; Dr. Debora Diaz MD; Dr. Alex Gonzales MD Signed Normal [facility] Eosinophil percentageOrdered By: Margarita Harris on 04-19-2025 Eosinophils/100 WBC (Bld) 6.5 % High 0-5 [facility] Erythrocyte distribution wid th ratioOrdered By: Margarita Harris on 04-19-2025 Erythrocyte distribution width (RBC) [Ratio] 12.7 % 11.6-14.6 [facility] Erythrocyte distribution wid th standard deviationOrdered By: Margarita Harris on 04-19-2025 Erythrocyte distribution width (RBC) [Ratio] 40.7 fl 35.1-43.9 [facility] Glomerular filtration rate ( GFR) estimation/1.73 sq m using serum, plasma, or whole bOrdered By: Margarita Harris on 04-19-2025 GFR/1.73 sq M.predicted among non-blacks MDRD (S/P/Bld) [Vol rate/Area] 91 mL/min/{1.73_m2} >60 [facility] Comment on above: mL/min/1.73m2 CKD-EP I Creatinine Equation (2020) [facility] de[facility]dered By: Margarita Harris on 04-19-2025 Glucose [Mass/Vol] 221 mg/dL High 74-106 [facility] Comment on above: MANAGEMENT OF PATIEN T CARE PER NURSING PROTOCOL Hematocrit Auto (Bld) [Volum e fraction]Ordered By: Margarita Harris on 04-19-2025 Hematocrit (Bld) [Volume fraction] 31.5 % Low 40-54 [facility] Hemoglobin measurementOrdere d By: Margarita Harris 04-19-2025 Hemoglobin (Bld) [Mass/Vol] 11.4 g/dL Low 13.0-16.5 [facility] Immature granulocytes/100 WB C Auto (Bld)Ordered By: Margarita Harris 04-19-2025 Immature granulocytes/100 WBC (Bld) 0.300 % 0.0-0.9 [facility] Comment on above: IG% - Immature Granu locytes (promyelocytes, myelocytes and metamyelocytes) > 1% indicates that a LEFT SHIFT is Present. MCV (mean corpuscular volume ) determinationOrdered By: Margarita Harris on 04-19-2025 MCV (RBC) [Entitic vol] 87.5 fL 80-94 [facility] Mean corpuscular hemoglobin (MCH) determinationOrdered By: Margarita Harris on 04-19-2025 MCH (RBC) [Entitic mass] 31.7 pg 27.0-32.0 [facility] Mean corpuscular hemoglobin concentration (MCHC) determinationOrdered By: Margarita Harris on 04-19-2025 MCHC (RBC) [Mass/Vol] 36.2 g/dL High 32-36 [facility] Mean platelet volume determi nationOrdered By: Margarita Harris on 04-19-2025 Platelet mean volume (Bld) [Entitic vol] 9.4 fL 6.2-12.0 [facility] Monocyte percentageOrdered B y: Margarita Harris on 04-19-2025 Monocytes/100 WBC (Bld) 17.7 % High 0-10 [facility] Neutrophil percentageOrdered By: Margarita Harris on 04-19-2025 Neutrophils/100 WBC (Bld) 44.8 % Low 47-70 [facility] Nucleated red blood cell per centageOrdered By: Margarita Harris on 04-19-2025 Nucleated RBC/100 WBC (Bld) [Ratio] 0 % 0-5 [facility] Platelet countOrdered By: Na julianne Harris on 04-19-2025 Platelets (Bld) [#/Vol] 109 10*3/uL Low 150-450 [facility] Potassium measurement (mass/ volume)Ordered By: Margarita Harris on 04-19-2025 Potassium (Unsp spec) [Mass/Vol] 3.9 mmol/L 3.3-5.1 [facility] RBC Auto (Bld) [#/Vol]Ordere d By: Margarita Harris on 04-19-2025 RBC (Bld) [#/Vol] 3.60 10*6/uL Low 4.6-6.2 [facility] Serum creatinine measurement (mass/volume)Ordered By: Margarita Harris on 04-19-2025 Creatinine [Mass/Vol] 0.82 mg/dL 0.70-1.20 [facility] Serum glucose measurement (m ass/volume)Ordered By: Margarita Harris on 04-19-2025 Glucose [Mass/Vol] 238 mg/dL High 70-99 [facility] Serum or plasma calcium tatum urement (mass/volume)Ordered By: Margarita Harris on 04-19-2025 Calcium [Mass/Vol] 9.0 mg/dL 7.6-11.0 [facility] Serum or plasma urea nitroge n measurement (mass/volume)Ordered By: Margarita Harris on 04-19-2025 Urea nitrogen [Mass/Vol] 10 mg/dL 4-19 [facility] Sodium levelOrdered By: Margarita Harris on 04-19-2025 Sodium [Moles/Vol] 137 mmol/L 133-145 [facility] White blood cell (WBC) count Ordered By: Margarita Harris on 04-19-2025 WBC (Bld) [#/Vol] 3.6 10*3/uL Low 4.4-11.0 [facility] Basic Metabolic Profile (BMP )on 04-18-2025 BUN/CRE 12.1 RATIO Normal 10-20 [facility] Comment on above: Performed By: #### L 100.0500, L501.8820, L500.2500 #### [facility] [address] [place], [address] Calcium [Mass/Vol] 8.5 mg/dL Normal 7.6-11.0 [facility] Comment on above: Performed By: #### L 100.0500, L501.8820, L500.2500 #### [facility] [address] [place], [address] Chloride [Moles/Vol] 103 mmol/L Normal 98-108 [facility] Comment on above: Performed By: #### L 100.0500, L501.8820, L500.2500 #### [facility] [address] [place], [address] CO2 [Moles/Vol] 22.2 mmol/L Normal 21.0-32.0 [facility] Comment on above: Performed By: #### L 100.0500, L501.8820, L500.2500 #### [facility] [address] [place], [address] Creatinine [Mass/Vol] 0.76 mg/dL Normal 0.70-1.20 [facility] Comment on above: Performed By: #### L 100.0500, L501.8820, L500.2500 #### [facility] [address] [place], [address] ECRCL 80.00 ml/min Normal 50-250 [facility] Comment on above: Performed By: #### L 100.0500, L501.8820, L500.2500 #### [facility] [address] [place], [address] GAP 11 Normal 5-15 [facility] Comment on above: Performed By: #### L 100.0500, L501.8820, L500.2500 #### [facility] [address] [place], [address] GFR/1.73 sq M.predicted among non-blacks MDRD (S/P/Bld) [Vol rate/Area] 93 mL/min/{1.73_m2} Normal >60 [facility] Comment on above: Result Comment: mL/m in/1.73m2 CKD-EPI Creatinine Equation (2020) Performed By: #### L 100.0500, L501.8820, L500.2500 #### [facility] [address] [place], [address] Glucose [Mass/Vol] 180 mg/dL High 70-99 [facility] Comment on above: Performed By: #### L 100.0500, L501.8820, L500.2500 #### [facility] [address] [place], [address] Potassium [Moles/Vol] 3.9 mmol/L Normal 3.3-5.1 [facility] Comment on above: Performed By: #### L 100.0500, L501.8820, L500.2500 #### [facility] [address] [place], [address] Sodium [Moles/Vol] 136 mmol/L Normal 133-145 [facility] Comment on above: Performed By: #### L 100.0500, L501.8820, L500.2500 #### [facility] [address] [place], [address] Urea nitrogen [Mass/Vol] 9 mg/dL Normal 4-19 [facility] Comment on above: Performed By: #### L 100.0500, L501.8820, L500.2500 #### [facility] [address] [place], [address] Bedside Glucoseon 04-18-2025 FINGERSTICK GLU 260 mg/dL High 74-106 [facility] Comment on above: Result Comment: JOHNSON GEMENT OF PATIENT CARE PER NURSING PROTOCOL Performed By: #### L 501.080 ####[facility] [address] [place], [address] FINGERSTICK GLU 259 mg/dL High 74-106 [facility] Comment on above: Result Comment: JOHNSON GEMENT OF PATIENT CARE PER NURSING PROTOCOL Performed By: #### L 500.4050, L500.4100 #### [facility] [address] [place], [address] FINGERSTICK GLU 178 mg/dL High 74-106 [facility] Comment on above: Result Comment: JOHNSON GEMENT OF PATIENT CARE PER NURSING PROTOCOL Performed By: #### L 501.080 ####[facility] [address] [place], [address] CBC W/Diff, Automatedon 08-2 Anisocytosis Ql (Bld) 1+ Normal [facility] Comment on above: Performed By: #### L 100.0500, L501.8820, L500.2500 #### [facility] [address] [place], [place], [address] PLT EST SLT DEC Normal [facility] Comment on above: Performed By: #### L 100.0500, L501.8820, L500.2500 #### [facility] [address] [place], [place], [id number] Culture, Blood (WB)on 2024 CUB Blood cultures x2, f rom two different sites AEROBIC ANAEROBIC GRAM STAIN= GRAM POSITIVE COCCI IN CLUSTERS Culture, Blood (WB) CRITICAL VALUE CALLED TO AREA 04/16/25 0242 Cliff Carmona. RESULTS READ BACK BY SAME. Culture, Blood (WB) Copy of report sent to Infection Control Printer [id number] 04/18/25 0718 JIL. Culture, Blood (WB) Meth. resistant Staph. aureus Amount Growth Growth mecA Testing not performed Meth. resistant Staph. aureus: REACTION cefOXitin Susc Islt POS Doxycycline Islt YSABEL <=0.5 Clindamycin Islt YSABEL 0.25 S Clindamycin.induced Susc Islt NEG Erythromycin Islt YSABEL 4 I Gentamicin Islt YSABEL <=0.5 S Linezolid Islt YSABEL 2 S Moxifloxacin Islt YSABEL <=0.25 S Oxacillin Susc Islt >=4 R Tetracycline Islt YSABEL <=1 S TMP SMX Islt YSABEL <=10 S Vancomycin Islt YSABEL 1 S Normal [facility] Comment on above: Performed By: #### L 501.080 #### [facility] [address] [place], [place], [address] Laboratory - Hematology and Cell countsOrdered By: Margarita Harris on 04-18-2025 Anisocytosis Ql (Bld) 1+ [facility] Platelet estimateOrdered By: Margarita Harris on 04-18-2025 Platelets LM Ql (Bld) SLT DEC ADEQ [facility] Trough vancomycin levelOrder ed By: Margarita Harris on 04-18-2025 Vancomycin trough [Mass/Vol] 12.3 ug/mL 5.0-15.0 [facility] Comment on above: Recommended goal tro ugh ranges are generally 10-15 mcg/ml for less severe/complicated infections such as cellulitis or UTI and 15-20 mcg/ml for more severe/complicated infections such as bacteremia/sepsis, osteomyelitis, pneumonia or meningitis. Goal trough ranges should take into account indication, patient-specific factors and organism YSABEL.VANCOMYCIN STANDARED DRUG THERAPY TROUGH LEVEL: 5.0 - 15.0 mg/L VANCOMYCIN HIGH INTENSITY THERAPY TROUGH LEVEL: 15.0 - 20.0 mg/L High Intensity therapy recommended for serious lifethreatening infections include:- Emisusgbnj-Vtddfgfpyoja-Sylpqzhtm (Ventilator/Healtcare Associated)-Sepsis PLEASE CONTACT PHARMACY SERVICES (#[id number]) FOR INTERPRETATIONOF RESULTS. Vancomycin, Trough Levelon 04-18-2025 VANCO, TROUGH 12.3 ug/mL Normal 5.0-15.0 [facility] Comment on above: Order Comment: Comme nts: Trough to be drawn 30 mins prior to scheduled dose Result Comment: Naeem mmended goal trough ranges are generally 10-15 mcg/ml for less severe/complicated infections such as cellulitis or UTI and 15-20 mcg/ml for more severe/complicated infections such as bacteremia/sepsis, osteomyelitis, pneumonia or meningitis. Goal trough ranges should take into account indication, patient-specific factors and organism YSABEL. VANCOMYCIN STANDARED DRUG THERAPY TROUGH LEVEL: 5.0 - 15.0 mg/L VANCOMYCIN HIGH INTENSITY THERAPY TROUGH LEVEL: 15.0 - 20.0 mg/L High Intensity therapy recommended for serious life threatening infections include: - Meningitis -Endocarditis -Pneumonia (Ventilator/Healtcare Associated) -Sepsis PLEASE CONTACT PHARMACY SERVICES (#[id number]) FOR INTERPRETATION OF RESULTS. Performed By: #### L 500.4050, L500.4100 #### [facility] [address] [place], [address] Basic Metabolic Profile (BMP )on 04-17-2025 BUN/CRE 13.2 RATIO Normal - [facility] Comment on above: Performed By: #### L 500.4050, L500.4100 #### [facility] [address] [place], [address] Calcium [Mass/Vol] 8.2 mg/dL Normal 7.6-11.0 [facility] Comment on above: Performed By: #### L 500.4050, L500.4100 #### [facility] [address] [place], [address] Chloride [Moles/Vol] 102 mmol/L Normal 98-108 [facility] Comment on above: Performed By: #### L 500.4050, L500.4100 #### [facility] [address] [place], [address] CO2 [Moles/Vol] 23.3 mmol/L Normal 21.0-32.0 [facility] Comment on above: Performed By: #### L 500.4050, L500.4100 #### [facility] [address] [place], [address] Creatinine [Mass/Vol] 0.83 mg/dL Normal 0.70-1.20 [facility] Comment on above: Performed By: #### L 500.4050, L500.4100 #### [facility] [address] [place], [address] ECRCL 77.11 ml/min Normal 50-250 [facility] Comment on above: Performed By: #### L 500.4050, L500.4100 #### [facility] [address] [place], [address] GAP 9 Normal 5-15 [facility] Comment on above: Performed By: #### L 500.4050, L500.4100 #### [facility] [address] [place], [address] GFR/1.73 sq M.predicted among non-blacks MDRD (S/P/Bld) [Vol rate/Area] 91 mL/min/{1.73_m2} Normal >60 [facility] Comment on above: Result Comment: mL/m in/1.73m2 CKD-EPI Creatinine Equation (2020) Performed By: #### L 500.4050, L500.4100 #### [facility] [address] [place], [address] Glucose [Mass/Vol] 128 mg/dL High 70-99 [facility] Comment on above: Performed By: #### L 500.4050, L500.4100 #### [facility] [address] [place], [address] Potassium [Moles/Vol] 4.2 mmol/L Normal 3.3-5.1 [facility] Comment on above: Performed By: #### L 500.4050, L500.4100 #### [facility] [address] [place], [address] Sodium [Moles/Vol] 134 mmol/L Normal 133-145 [facility] Comment on above: Performed By: #### L 500.4050, L500.4100 #### [facility] [address] [place], [address] Urea nitrogen [Mass/Vol] 11 mg/dL Normal 4-19 [facility] Comment on above: Performed By: #### L 500.4050, L500.4100 #### [facility] [address] [place], [address] Bedside Glucoseon 04-17-2025 FINGERSTICK GLU 165 mg/dL High 74-106 [facility] Comment on above: Result Comment: JOHNSON GEMENT OF PATIENT CARE PER NURSING PROTOCOL Performed By: #### L 500.4050, L500.4100 #### [facility] [address] [place], [address] FINGERSTICK GLU 169 mg/dL High 74-106 [facility] Comment on above: Result Comment: JOHNSON GEMENT OF PATIENT CARE PER NURSING PROTOCOL Performed By: #### L 500.4050, L500.4100 #### [facility] [address] [place], [address] FINGERSTICK GLU 167 mg/dL High 74-106 [facility] Comment on above: Result Comment: JOHNSON GEMENT OF PATIENT CARE PER NURSING PROTOCOL Performed By: #### L 100.0500, L501.8820, L500.2500 #### [facility] [address] [place], [address] FINGERSTICK GLU 125 mg/dL High 74-106 [facility] Comment on above: Result Comment: JOHNSON GEMENT OF PATIENT CARE PER NURSING PROTOCOL Performed By: #### L 501.080 ####[facility] [address] [place], [address] CBC W/Diff, Automatedon 03-30 PLT EST MOD DEC Normal ADEQ [facility] Comment on above: Performed By: #### L 500.4050, L500.4100 #### [facility] [address] [place], [address] Echo Transesophageal (ZAINAB)on 04-17-2025 Echo Transesophageal (ZAINAB) [facility] [address] [place] [address] Echo Transesophageal (ZAINAB) 04/17/25824 MR#: [id number] Acct: [id number] Name: ASCENCION WEIR Rep #: [id number] : 1950 74 From: Ant Arias MD Attending Dr: Dr. Margarita Harris MD Status: AD M IN Ordering Dr: Margarita Harris MD Date: 04/17/25 Location: [facility] Sex: M C Admitted: 04/15/25 Reason For Study Reason For Study: ENDOCARDITIS Medication ZAINAB probe 6VT-D (SN [id number]) passed without difficulty. No complications were noted. Cetacaine Topical Rienzi given X3 orally. Versed 2 mg given slow IVP. Fentanyl 50 mcg given slow IVP. Performed a rapid injection of agitated mix of 9 cc saline and 1cc air to assess for atrial septal defect. Left Ventricle Normal LV size. Left ventricular systolic function is normal. The left ventricular ejection fraction is 65 %. No regional wall motion abnormalities noted. Right Ventricle Normal RV size. Normal systolic function. Atria Bubble contrast study is negative for PFO/ASD. The left atrium is mildly enlarged. No thrombus is detected in the left atrial appendage. Normal right atrium. Prominent eustachian valve. Mitral Valve Normal mitral valve. Mild (1+) eccentric mitral valve insufficiency. Tricuspid Valve Normal tricuspid valve. Mild tricuspid valve insufficiency. Aortic Valve Bioprosthetic aortic valve. Stable appearing bioprosthetic aortic valve apparatus. Pulmonic Valve Normal pulmonic valve. Vessels Normal aortic root. Pericardium No pericardial effusion. ECHO/Echo Transesophageal (ZAINAB) Interpretation Summary Normal LV size. Left ventricular systolic function is normal. The left ventricular ejection fraction is 65 %. Bubble contrast study is negative for PFO/ASD. No thrombus is detected in the left atrial appendage. Mild (1+) eccentric mitral valve insufficiency. No valvular vegetations noted. Stable appearing bioprosthetic aortic valve apparatus. ___ Ordering Physician: Margarita Harris Performed By: Johanny Huston RDCS 04/17/25905 Date Ant Arias MD CC: Dr. Mike Solorzano MD; Dr. Margarita Harris MD Date Dictated: 04/17/25824 Date Transcribed: 04/17/25905 Milking System Installer: Signed Normal [facility] Transesophageal echocardiogr am reportOrdered By: Ant Arias on 04-17-2025 Study report [facility] [address] [place] [address] Echo Transesophageal (ZAINAB) 04/17/25824 MR#: [id number] Acct: [id number] Name: ASCENCION WEIR Rep #:[id number] : 1950 74 From: Ant Watts Attending Dr: Dr. Margarita Harris MD Status: ADM IN Ordering Dr: Margarita Harris MD Date: 04/17/25 Location: [facility] Sex: M C Admitted: 04/15/25 Reason For Study Reason For Study: ENDOCARDITIS Medication ZAINAB probe 6VT-D (SN [id number]) passed without difficulty. No complications were noted. Cetacaine Topical Rienzi given X3 orally. Versed 2 mg given slow IVP. Fentanyl 50 mcg given slow IVP. Performed a rapid injection of agitated mix of 9 cc saline and 1cc air to assess for atrial septal defect. Left Ventricle Normal LV size. Left ventricular systolic function is normal. The left ventricular ejection fraction is 65 %. No regional wall motion abnormalities noted. Right Ventricle Normal RV size. Normal systolic function. Atria Bubble contrast study is negative for PFO/ASD. The left atrium is mildly enlarged. No thrombus is detected in the left atrial appendage. Normal right atrium. Prominent eustachian valve. Mitral Valve Normal mitral valve. Mild (1+) eccentric mitral valve insufficiency. Tricuspid Valve Normal tricuspid valve. Mild tricuspid valve insufficiency. Aortic Valve Bioprosthetic aortic valve. Stable appearing bioprosthetic aortic valve apparatus. Pulmonic Valve Normal pulmonic valve. Vessels Normal aortic root. Pericardium No pericardial effusion. ECHO/Echo Transesophageal (ZAINAB) Interpretation Summary Normal LV size. Left ventricular systolic function is normal. The left ventricular ejection fraction is 65 %. Bubble contrast study is negative for PFO/ASD. No thrombus is detected in the left atrial appendage. Mild (1+) eccentric mitral valve insufficiency. No valvular vegetations noted. Stable appearing bioprosthetic aortic valve apparatus. ___ Ordering Physician: Margarita Harris Performed By: Johanny Huston, RDCHARISSE 04/17/25905 Date _ Ant Arias MD CC: Dr. Mike Solorzano MD; Dr. Margarita Harris MD ~ Date Dictated: 04/17/25824 Date Transcribed: 04/17/25905 Milking System Installer: Signed [facility] Work Phone: Vancomycin, Trough Levelon 0 04-17-2025 VANCO, TROUGH 8.8 ug/mL Normal 5.0-15.0 [facility] Comment on above: Order Comment: Comme nts: Trough to be drawn 30 mins prior to scheduled [id number] Result Comment: Naeem mmended goal trough ranges are generally 10-15 mcg/ml for less severe/complicated infections such as cellulitis or UTI and 15-20 mcg/ml for more severe/complicated infections such as bacteremia/sepsis, osteomyelitis, pneumonia or meningitis. Goal trough ranges should take into account indication, patient-specific factors and organism YSABEL. VANCOMYCIN STANDARED DRUG THERAPY TROUGH LEVEL: 5.0 - 15.0 mg/L VANCOMYCIN HIGH INTENSITY THERAPY TROUGH LEVEL: 15.0 - 20.0 mg/L High Intensity therapy recommended for serious life threatening infections include: - Meningitis -Endocarditis -Pneumonia (Ventilator/Healtcare Associated) -Sepsis PLEASE CONTACT PHARMACY SERVICES (#[id number]) FOR INTERPRETATION OF RESULTS. Performed By: #### L 500.4050, L500.4100 #### [facility] [address] [place], [address] 12 Lead EKGon 04-16-2025 12 Lead EKG [facility] [address] [place] [address] 12 Lead EKG 04/16/25 0141 MR#: [id number] Acct: [id number] Name: CARMELLAASCENCION Fay Rep #: [id number] : 1950 74 From: Ant Arias MD Attending Dr: Dr. Margarita Harris MD Status: AD M IN Ordering Dr: Debora Diaz MD Date: 04/16/25 Location: [facility] Sex: M C Admitted: 04/15/25 Test Reason : RHYTHM CHANGE Blood Pressure : */* mmHG Vent. Rate : 86 BPM Atrial Rate : 86 BPM P-R Int : 144 ms QRS Dur : 58 ms QT Int : 350 ms P-R-T Axes : * 25 35 degrees QTcB Int : [address] T wave abnormality, consider inferior ischemia Abnormal ECG When compared with ECG of 15-Apr-2025 14:41, MANUAL COMPARISON REQUIRED DATA IS UNCONFIRMED Confirmed by HUGO RUIZ, ANT ([id number]), news video editor STEVIE GTZ ([id number]) on 04/16/2025 8:52:08 AM Referred By: Confirmed By: ANT ARIAS MD 04/16/25 0852 Date Ant Arias MD CC: Dr. Mike Solorzano MD; Dr. Margarita Harris MD; Dr. Debora Diaz MD Signed Normal [facility] GPC IDon 04-16-2025 GPC ID RESULTS CALLED TO CHRISSY Beckwith 04/16/25 0855 Kelley Castro. REPORT READ BACK BY . Microorganism Spec Cult Copy of report sent to Infection Control Printer [id number] 04/16/25 0855 JIL. Enterococcus sp. Not Detected Listeria spp Not Detected NAAT METHOD Testing was performed using nucleic acid amplification Staphylococcus sp. A DETECTED A Streptococcus spp. Not Detected mecA A mecA Resistance Marker Detected A Quentin/vanB Not Detected Meth. resistant Staph. aureus mecA A mecA Resistance Marker Detected A mecA Resistance Marker Normal [facility] Comment on above: Performed By: #### L 501.080 #### [facility] [address] [place], [address] Bedside Glucoseon 04-16-2025 FINGERSTICK GLU 155 mg/dL High 74-106 [facility] Comment on above: Result Comment: JOHNSON GEMENT OF PATIENT CARE PER NURSING PROTOCOL Performed By: #### L 500.4050, L500.4100 #### [facility] [address] [place], [address] FINGERSTICK GLU 119 mg/dL [place] [address] [facility] Comment on above: Result Comment: JOHNSON GEMENT OF PATIENT CARE PER NURSING PROTOCOL Performed By: #### M 100.638 #### [facility] [address] [place], [address] FINGERSTICK GLU 210 mg/dL [address] [facility] Comment on above: Result Comment: JOHNSON GEMENT OF PATIENT CARE PER NURSING PROTOCOL Performed By: #### L 500.4050, L500.4100 #### [facility] [address] [place], [address] FINGERSTICK GLU 207 mg/dL [place] [address] [facility] Comment on above: Result Comment: JOHNSON GEMENT OF PATIENT CARE PER NURSING PROTOCOL Performed By: #### L 500.4050, L500.4100 #### [facility] [address] [place], [address] FINGERSTICK GLU 214 mg/dL [address] [facility] Comment on above: Result Comment: JOHNSON GEMENT OF PATIENT CARE PER NURSING PROTOCOL Performed By: #### M 100.638 #### [facility] [address] [place], [address] FINGERSTICK GLU 216 mg/dL [address] [facility] Comment on above: Result Comment: JOHNSON GEMENT OF PATIENT CARE PER NURSING PROTOCOL Performed By: #### L 500.4050, L500.4100 #### [facility] [address] [place], [address] Bilirubin, totalOrdered By: Debora Diaz on 04-16-2025 Bilirubin [Mass/Vol] 0.47 mg/dL 0.00-1.30 [facility] Blood manual differential co mment interpretation (narrative result)Ordered By: Debora Diaz on 04-16-2025 Manual differential comment Dillan (Bld) [Interp] SCANNED [facility] Brain without Contraston Brain without Contrast [facility] Imaging Services [address] [place] [address] Brain without Contrast MR#: [id number] Acct: [id number] Name: ASCENCION WEIR Rep #: [id number] : 1950 M 74 From: Velasquez Lua MD PCP: Dr. Mike Solorzano MD Status: ADM IN Study: Brain without Contrast Date of Exam: 04/16/25 Exam# [id number] Ordering Dr: Kavon Schultz MD PROCEDURE: BRAIN WITHOUT CONTRAST 04/16/2025 REASON FOR EXAM: STROKE TECHNIQUE: BRAIN WITHOUT CONTRAST Multiplanar and multisequence images were obtained. COMPARISON: 04/15/2025 CT. FINDINGS: Moderate global parenchymal atrophy. Minimal T2/FLAIR hyperintense foci likely representing chronic microvascular ischemia. Left maxillary sinus retention cyst. No evidence of acute hemorrhage or infarction. No extra-axial blood or fluid collections. The calvarial vault and skull base are intact. MRI/Brain without Contrast IMPRESSION: No acute intracranial abnormality. Reading Location: [facility] CC: Dr. Mike Solorzano MD; Dr. Kavon Schultz MD Milking System Installer: Signed Normal [facility] CBC W/Diff, Automatedon 03-29 SMEAR COMMENT SCANNED Normal [facility] Comment on above: Performed By: #### L 500.4050, L500.4100 #### [facility] [address] [place], [address] [facility] ASCENCION WEIR ([id number]) 1950 M Date Time Provider Department 04/16/25 AARON SOLORZANO During your visit today, we recorded the following information about you: Vernell Hernandez LPN 04/16/2025 11:32 AM Signed Received ed summary from [facility]. Placed in provider's inbox for review. Route to MA scanning Allergies As of Date: 04/16/2025 Noted Allergy Reaction ENTEX PSE (PSEUDOEPHEDRINE-GUAIFE*1 10/12/2006 5 - Intolerance Comments: Patient states he does not have any allergies Date Reviewed: 04/01/2025 Reviewed by: Arley Pastrana MA - Fully Assessed Reason for Visit: Received Outside Medical Records [[id number]] Cmt: [facility] ED Prescriptions as of 04/16/2025 - traMADol (ULTRAM) 50 mg tablet Take 1 tablet by mouth every 6 hours as needed for pain for up to 30 days. - traMADol (ULTRAM) 50 mg tablet Take 50 mg by mouth every 6 hours as needed for pain. - metFORMIN (GLUCOPHAGE) 1,000 mg tablet Take [...] as directed Problem List As Of Date 04/16/2025 Noted Resolved HYPERLIPIDEMIA NEC/NOS [E78.5] 10/29/2015 SCIATICA [...] stenosis [I35.0] 05/31/2019 Coronary artery disease involving marshall malik*09/18/2020 Thrombocytopenia (HCC) [D69.6] 01/07/2023 Longstanding persistent atrial fibrillation (HC*01/07/2023 Peripheral arterial disease (HCC) [I73.9] 06/16/2023 Encounter Status:Closed by VERNELL HERNANDEZ on 04/16/25 Normal [facility] Metabolic Prof chaz 04-16-2025 Albumin [Mass/Vol] 3.4 g/dL Normal 3.4-4.8 [facility] Comment on above: Performed By: #### L 500.4050, L500.4100 #### [facility] [address] [place], [address] Albumin/Globulin [Mass ratio] 1.3 {ratio} Normal 0.9-2.4 [facility] Comment on above: Performed By: #### L 500.4050, L500.4100 #### [facility] [address] [place], [address] ALK PHOS 76 U/L Normal 40-129 [facility] Comment on above: Performed By: #### L 500.4050, L500.4100 #### [facility] [address] [place], [address] ALT [Catalytic activity/Vol] 29 U/L Normal <=46 [facility] Comment on above: Performed By: #### L 500.4050, L500.4100 #### [facility] [address] [place], [address] AST [Catalytic activity/Vol] 34 U/L Normal <=37 [facility] Comment on above: Performed By: #### L 500.4050, L500.4100 #### [facility] [address] [place], [address] Bilirubin [Mass/Vol] 0.47 mg/dL Normal 0.00-1.30 [facility] Comment on above: Performed By: #### L 500.4050, L500.4100 #### [facility] [address] [place], [address] BUN/CRE 15.7 RATIO Normal 10-20 [facility] Comment on above: Performed By: #### L 500.4050, L500.4100 #### [facility] [address] [place], [address] Calcium [Mass/Vol] 8.2 mg/dL Normal 7.6-11.0 [facility] Comment on above: Performed By: #### L 500.4050, L500.4100 #### [facility] [address] [place], [address] Chloride [Moles/Vol] 97 mmol/L Low 98-108 [facility] Comment on above: Performed By: #### L 500.4050, L500.4100 #### [facility] [address] [place], [address] CO2 [Moles/Vol] 20.4 mmol/L Low 21.0-32.0 [facility] Comment on above: Performed By: #### L 500.4050, L500.4100 #### [facility] [address] [place], [address] Creatinine [Mass/Vol] 0.95 mg/dL Normal 0.70-1.20 [facility] Comment on above: Performed By: #### L 500.4050, L500.4100 #### [facility] [address] [place], [address] ECRCL 67.37 ml/min Normal 50-250 [facility] Comment on above: Performed By: #### L 500.4050, L500.4100 #### [facility] [address] [place], [address] GAP 13 Normal 5-15 [facility] Comment on above: Performed By: #### L 500.4050, L500.4100 #### [facility] [address] [place], [address] GFR/1.73 sq M.predicted among non-blacks MDRD (S/P/Bld) [Vol rate/Area] 83 mL/min/{1.73_m2} Normal >60 [facility] Comment on above: Result Comment: mL/m in/1.73m2 CKD-EPI Creatinine Equation (2020) Performed By: #### L 500.4050, L500.4100 #### [facility] [address] [place], [address] Globulin (S) [Mass/Vol] 2.6 g/dL Normal 2.2-4.2 [facility] Comment on above: Performed By: #### L 500.4050, L500.4100 #### [facility] [address] [place], [address] Glucose [Mass/Vol] 197 mg/dL High 70-99 [facility] Comment on above: Performed By: #### L 500.4050, L500.4100 #### [facility] [address] [place], [address] Potassium [Moles/Vol] 4.1 mmol/L Normal 3.3-5.1 [facility] Comment on above: Performed By: #### L 500.4050, L500.4100 #### [facility] [address] [place], [address] Sodium [Moles/Vol] 130 mmol/L Low 133-145 [facility] Comment on above: Performed By: #### L 500.4050, L500.4100 #### [facility] [address] [place], [address] T PROT 5.9 g/dL Normal 5.9-8.4 [facility] Comment on above: Performed By: #### L 500.4050, L500.4100 #### [facility] [address] [place], [address] Urea nitrogen [Mass/Vol] 15 mg/dL Normal 4-19 [facility] Comment on above: Performed By: #### L 500.4050, L500.4100 #### [facility] [address] [place], [address] Consultation - Infectious Dx on 04-16-2025 Consultation - Infectious Dx [facility] Medical Records Department [address] [place] [address] Consultation - Infectious Dx 04/16/25 1024 MR#: [id number] Acct: [id number] Name: ASCENCION WEIR Rep #: [id number] : 1950 74 From: Alex Gonzales MD PCP: Dr. Mike Solorzano MD Status:ADM IN Location: [place] [address] Assessment Plan Assessment/Plan (1) MRSA bacteremia: PLAN: MRSA bacteremia per pcr, unclear source. Will check TTE, repeat bcx. Stop zosyn, cont vanc. Will follow, thank you, d/w primary team (2) SIRS (systemic inflammatory response syndrome): (3) History of aortic valve replacement: HPI Consult Data Date of Consult: 04/16/25 HPI Narrative Reason for Consultation: bacteremia HPI Narrative: ASCENCION WEIR, is a 74 M with h/o tissue aortic valve replacement, BPH, chronic back pain and neuropathy with stimulator in place, presented 04/15 with sudden onset fever, chills, generalized weakness, confusion. Denies any recent procedures, infections, or abx. Mild dry cough for a few days. Came to ED, admitted on vanc/zosyn, feeling better but still some chills. No new focal joint or back pain. Full ROS performed and neg except as noted above. 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 Pericardial effusion Fever Chest pain Multi-vessel coronary artery stenosis Dyspnea on exertion Abnormal echocardiogram Nonrheumatic aortic (valve) stenosis Intractable back pain Benign prostatic hypertrophy Physical debility Pain Asthmatic bronchitis with exacerbation Obstructive sleep apnea syndrome Obesity Type II diabetes mellitus Benign essential hypertension Home Medications ???Medication ???Instructions ???Recorded ???Last Taken ???Type aspirin 81 mg chewable tablet 81 mg PO DAILY heart health 03/18/20 History metformin 500 mg tablet 1,000 mg PO BIDCM diabetes 7 03/17/20 History tamsulosin 0.4 mg capsule 0.4 mg PO QHS BPH 11/21/16 8 History gabapentin 400 mg capsule 400 mg PO TID 02/28/20 Unknown His tory hydroxychloroquine 200 mg tablet 200 mg PO DAILY 02/28/20 Unknown H istory tramadol 50 mg tablet 50 mg PO Q6H PRN PRN Pain Or Fever 05/29/20 Unknown History multivitamin 1 tab PO DAILY Supplement 06/09/20 Unknown History celecoxib 200 mg capsule (Celebrex) 200 mg PO BID 06/27/20 Unknown History atorvastatin 20 mg tablet 20 mg PO QHS 12/22/20 Unknown Hist ory metoprolol succinate 50 mg 50 mg PO QDAY 05/31/24 Unknown His tory tablet,extended release 24 hr metoprolol succinate 100 mg 50 mg PO DAILY 04/15/25 Unknown Hi story tablet,extended release 24 hr Allergy/AdvReac Type Severity [...] additional social history: Does Not Take Ibuprofen Physical Exam Const alert, oriented x3 and no apparent distress General Appearance: cooperative HEENT normocephalic and head/scalp atraumatic Eyes PERRL and EOMs intact bilaterally Neck supple and No nodes Resp normal air movement and clear to auscultation bilaterally Cardio regular rate and regular rhythm Heart Sounds: murmur GI soft to palpation, non-tender and non-distended Extremity General Extremity: no tenderness to palpation of joints or extremities; Negative for edema Skin no rashes or lesions noted Skin Narrative: No splinter hemorrhages on hands or feet. No spine tenderness. No inflammation over R lower back stimulator site. Neuro CN's II-XII intact bilaterally Lab / Micro Data Attestation: I reviewed the patient's lab results. 04/16/25 05:12 04/16 (more content not included)... Normal [facility] Echo, Limited Studyon 2024 Echo, Limited Study [facility] Cardiovascular Services [address] [place] [address] Echo, Limited Study 04/16/25 0942 MR#: [id number] Acct: [id number] Name: ASCENCION WEIR Rep #: [id number] : 1950 74 From: Luciano Spicer MD Attending Dr: Dr. Margarita Harris MD Status: AD M IN Ordering Dr: Alex Gonzales MD Date: 04/16/25 Location: U Sex: M C Admitted: 04/15/25 Reason For Study Reason For Study: Murmur Procedure This was a limited 2D transthoracic echocardiogram. The study was technically difficult. Exam performed portable in patient room. Left Ventricle Normal LV size. Increased LV thickness. Left ventricular systolic function is lower limits of normal. The estimated ejection fraction is 50 %. No regional wall motion abnormalities noted. Right Ventricle Normal size and thickness. Normal systolic function. Atria There is mild biatrial dilatation. Mitral Valve The mitral valve is structurally normal. No prolapse or stenosis seen. Mild (1+) mitral valve insufficiency. Tricuspid Valve Normal tricuspid valve. Mild to moderate (1-2+) tricuspid valve insufficiency. Right ventricular systolic pressure estimated to be 40 mmHg. MMode/2D Measurements Calculations LVIDd: 4.4 cm IVSd: 1.2 cm LVIDs: 3.4 cm LVPWd: 1.0 cm FS: 21.5 % Doppler Measurements Calculations TR max lynette: 304.1 cm/sec TR max P.0 mmHg ECHO/Echo, Limited Study Interpretation Summary Right ventricular systolic pressure estimated to be 40 mmHg. Mild to moderate (1-2+) tricuspid valve insufficiency. No regional wall motion abnormalities noted. The estimated ejection fraction is 50 %. Normal LV size. There is mild biatrial dilatation. This was essentially a normal study. ___ Ordering Physician: Alex Gonzales Performed By: Palmer Bolton RCS 04/16/25 1232 Date Luciano Spicer MD CC: Dr. Mike Solorzano MD; Dr. Margarita Harris MD; Dr. Alex Gonzales MD Date Dictated: 04/16/2542 Date Transcribed: 04/16/25 1232 Milking System Installer: Signed Normal [facility] Electrocardiogram reportOrde red By: Ant Arias on 04-16-2025 EKG study [facility] Cardiovascular Services [address] [place] [address] 12 Lead EKG 04/16/25 0141 MR#: [id number] Acct: [id number] Name: ASCENCION WEIR Rep #:[id number] : 1950 74 From: Ant Arias MD Attending Dr: Dr. Margarita Harris MD Status: ADM IN Ordering Dr: Debora Diaz MD Date: Location: [facility] Sex: M C Admitted: 04/15/25 Test Reason : RHYTHM CHANGE Blood Pressure : */* mmHG Vent. Rate : 86 BPM Atrial Rate : 86 BPM P-R Int : 144 ms QRS Dur : 58 ms QT Int : 350 ms P-R-T Axes : * 25 35 degrees QTcB Int : [address] & T wave abnormality, consider inferior ischemia Abnormal ECG When compared with ECG of 15-Apr-2025 14:41, MANUAL COMPARISON REQUIRED DATA IS UNCONFIRMED Confirmed by ANT ARIAS MD ([id number]), news video editor STEVIE GTZ ([id number]) on 04/16/2025 8:52:08 AM Referred By: Confirmed By: ANT ARIAS MD 04/16/25 0852 Date _ Ant Arias MD CC: Dr. Mike Solorzano MD; Dr. Margarita Harris MD; Dr. Debora Diaz MD ~ Signed [facility] Work Phone: EKG study [facility] Cardiovascular Services [address] [place] [address] 12 Lead EKG 04/15/25 1441 MR#: [id number] Acct: [id number] Name: ASCENCION WEIR Rep #:[id number] : 1950 74 From: Ant Arias MD Attending Dr: Dr. Margarita Harris MD Status: ADM IN Ordering Dr: Omer Boo MD Date: 04/15 Location: [facility] Sex: M C Admitted: 04/15/25 Test Reason : chest pain Blood Pressure : */* mmHG Vent. Rate : 113 BPM Atrial Rate : 113 BPM P-R Int : 136 ms QRS Dur : 72 ms QT Int : 276 ms P-R-T Axes : 79 1 -52 degrees QTcB Int : 378 ms Sinus tachycardia with frequent Premature ventricular complexes T wave abnormality, consider inferior ischemia Abnormal ECG Confirmed by ANT ARIAS MD ([id number]), news video editor STEVIE GTZ ([id number]) on 04/16/2025 8:47:49 AM Referred By: Confirmed By: ANT ARIAS MD 04/16/25 0847 Date _ Ant Arias MD CC: Dr. Mike Solorzano MD; Dr. Margarita Harris MD; Dr. Omer Boo MD ~ Signed [facility] Work Phone: Laboratory - Chemistry and C hemistry - challengeOrdered By: Debora Diaz on 04-16-2025 AST [Catalytic activity/Vol] 34 U/L <38 [facility] Limited echocardiogram repor tOrdered By: Luciano Spicer on 04-16-2025 Study report [facility] Cardiovascular Services [address] [place] [address] Echo, Limited Study 04/16/25 0942 MR#: [id number] Acct: [id number] Name: ASCENCION WEIR Rep #:[id number] : 1950 74 From: Luciano Watts Attending Dr: Dr. Margarita Harris MD Status: ADM IN Ordering Dr: Alex Gonzales MD Date: 04/16/25 Location: PCU Sex: M C Admitted: 04/15/25 Reason For Study Reason For Study: Murmur Procedure This was a limited 2D transthoracic echocardiogram. The study was technically difficult. Exam performed portable in patient room. Left Ventricle Normal LV size. Increased LV thickness. Left ventricular systolic function is lower limits of normal. The estimated ejection fraction is 50 %. No regional wall motion abnormalities noted. Right Ventricle Normal size and thickness. Normal systolic function. Atria There is mild biatrial dilatation. Mitral Valve The mitral valve is structurally normal. No prolapse or stenosis seen. Mild (1+)mitral valve insufficiency. Tricuspid Valve Normal tricuspid valve. Mild to moderate (1-2+) tricuspid valve insufficiency. Right ventricular systolic pressure estimated to be 40 mmHg. MMode/2D Measurements & Calculations LVIDd: 4.4 cm IVSd: 1.2 cm LVIDs: 3.4 cm LVPWd: 1.0 cm FS: 21.5 % Doppler Measurements & Calculations TR max lynette: 304.1 cm/sec TR max P.0 mmHg ECHO/Echo, Limited Study Interpretation Summary Right ventricular systolic pressure estimated to be 40 mmHg. Mild to moderate (1-2+) tricuspid valve insufficiency. No regional wall motion abnormalities noted. The estimated ejection fraction is 50 %. Normal LV size. There is mild biatrial dilatation. This was essentially a normal study. ___ Ordering Physician: Alex Gonzales Performed By: Palmer Bolton RCS 04/16/25 1232 Date _ Luciano Spicer MD CC: Dr. Mike Solorzano MD; Dr. Margarita Harris MD; Dr. Alex Gonzales MD ~ Date Dictated: 04/16/25 0942 Date Transcribed: 04/16/25 1232 Milking System Installer: Signed [facility] Magnetic resonance imaging r eportOrdered By: Velasquez Lua on 04-16-2025 Study report [facility] Imaging Services [address] [place], [place] [address] Brain without Contrast MR#: [id number] Acct: [id number] Name: ASCENCION WEIR Rep #: [id number] : 1950 M 74 From: Doug Lua MD PCP: Dr. Mike Solorzano MD Status: ADM IN Study:Brain without Contrast Date of Exam: 04/16/25 Exam# [id number] Ordering Dr: Kavon Schultz MD PROCEDURE: BRAIN WITHOUT CONTRAST 04/16/2025 REASON FOR EXAM: STROKE TECHNIQUE: BRAIN WITHOUT CONTRAST Multiplanar and multisequence images were obtained. COMPARISON: 04/15/2025 CT. FINDINGS: Moderate global parenchymal atrophy. Minimal T2/FLAIR hyperintense foci likely representing chronic microvascular ischemia. Left maxillary sinus retention cyst. No evidence of acute hemorrhage or infarction. No extra-axial blood or fluid collections. The calvarial vault and skull base are intact. MRI/Brain without Contrast IMPRESSION: No acute intracranial abnormality. Reading Location: [id number] CC: Dr. Mike Solorzano MD; Dr. Kavon Schultz MD ~ Milking System Installer: Signed [facility] RESPIRATORY PANEL MOLECULARo n 04-16-2025 RP PANEL ADENOVIRUS Not Detected INFLUENZA A Not Detected INFLUENZA A (SUBTYPE H1) Not Detected INFLUENZA A (SUBTYPE H3) Not Detected INFLUENZA B Not Detected HUMAN METAPHNEUMO Not Detected PARAINFLUENZA 1 Not Detected PARAINFLUENZA 2 Not Detected PARAINFLUENZA 3 Not Detected PARAINFLUENZA 4 Not Detected RHINOVIRUS Not Detected RSV A Not Detected RSV B Not Detected Normal [facility] Comment on above: Performed By: #### M 100.638 #### [facility] [place], [address] Serum globulin measurementOr dered By: Debora Diaz on 04-16-2025 Globulin (S) [Mass/Vol] 2.6 g/dL 2.2-4.2 [facility] Serum or plasma alanine zeng otransferase (ALT) measurementOrdered By: Debora Diaz on 04-16-2025 ALT [Catalytic activity/Vol] 29 U/L <47 [facility] Serum or plasma albumin tatum urement (mass/volume)Ordered By: Debora Diaz on 04-16-2025 Albumin [Mass/Vol] 3.4 g/dL 3.4-4.8 [facility] Serum or plasma albumin/glob ulin mass ratioOrdered By: Debora Diaz on 04-16-2025 Albumin/Globulin [Mass ratio] 1.3 {ratio} 0.9-2.4 [facility] Serum or plasma alkaline mike sphatase measurementOrdered By: Debora Diaz on 04-16-2025 ALP [Catalytic activity/Vol] 76 U/L 40-129 [facility] Total proteinOrdered By: Inez Diaz on 04-16-2025 Protein [Mass/Vol] 5.9 g/dL 5.9-8.4 [facility] Urine Cultureon 04-16-2025 URC Culture exhibits no growth. Normal [facility] Comment on above: Performed By: #### M 100.638 #### [facility] [address] [place], [address] 12 Lead EKGon 04-15-2025 12 Lead EKG [facility] Cardiovascular Services [address] [place] [address] 12 Lead EKG 04/15/25 1441 MR#: [id number] Acct: [id number] Name: ASCENCION WEIR Rep #: [id number] : 1950 74 From: Ant Arias MD Attending Dr: Dr. Margarita Harris MD Status: AD M IN Ordering Dr: Omer Boo MD Date: 04/15/25 Location: [facility] Sex: M C Admitted: 04/15/25 Test Reason : chest pain Blood Pressure : */* mmHG Vent. Rate : 113 BPM Atrial Rate : 113 BPM P-R Int : 136 ms QRS Dur : 72 ms QT Int : 276 ms P-R-T Axes : 79 1 -52 degrees QTcB Int : 378 ms Sinus tachycardia with frequent Premature ventricular complexes T wave abnormality, consider inferior ischemia Abnormal ECG Confirmed by HUGO RUIZ, ANT ([id number]), news video editor STEVIE GTZ ([id number]) on 04/16/2025 8:47:49 AM Referred By: Confirmed By: ANT ARIAS MD 04/16/25 0847 Date Ant Arias MD CC: Dr. Mike Solorzano MD; Dr. Margarita Harris MD; Dr. Omer Boo MD Signed Normal [facility] Absolute lymphocyte countOrd ered By: Omer Boo on 04-15-2025 Lymphocytes Auto (Unsp spec) [#/Vol] 0.21 10*3/uL Low 0.83-4.51 [facility] Absolute neutrophil countOrd ered By: Omer Boo on 04-15-2025 Neutrophils (Bld) [#/Vol] 2.6 10*3/uL 2.0-7.7 [facility] Activated partial thrombopla stin time (aPTT) in platelet poor plasma by coagulation aOrdered By: Omer Boo on 04-15-2025 aPTT Coag (PPP) [Time] 30.3 s 24.1-36.2 [facility] Anion gap in Serum or Plasma Ordered By: Omer Boo on 04-15-2025 Anion gap [Moles/Vol] 13 mmol/L 5-15 [facility] Automated lymphocyte count a s percentage of total leukocytesOrdered By: Omeraylin oBo on 04-15-2025 Lymphocytes/100 WBC Auto (Unsp spec) 6.9 % Low 19-41 [facility] BUN/creatinine ratioOrdered By: Omeraylin Boo on 04-15-2025 Urea nitrogen/Creatinine [Mass ratio] 14.6 mg/mg 10-20 [facility] Basophil percentageOrdered B y: Omer Boo on 04-15-2025 Basophils/100 WBC (Bld) 0.3 % 0-1 [facility] Bilirubin Test strip Ql (U)O rdered By: Omer Boo on 04-15-2025 Bilirubin Ql (U) Negative Negative [facility] Bilirubin, totalOrdered By: Omer Boo on 04-15-2025 Bilirubin [Mass/Vol] 0.52 mg/dL 0.00-1.30 [facility] Blood cultureOrdered By: Omeraylin Boo on 04-15-2025 Bacteria identified Cx Nom (Bld) Staphylococcus aureus Abnormal [facility] Bacteria identified Cx Nom (Bld) Meth. resistant Staph. aureus Abnormal [facility] CBC W/Diff, Automatedon 03-29 Absolute Lymph 0.21 X10 3/uL Low 0.83-4.51 [facility] Comment on above: Performed By: #### M 100.638 #### [facility] [address] [place], [place], [id number] Absolute Neut 2.6 X10 3/uL Normal 2.0-7.7 [facility] Comment on above: Performed By: #### M 100.638 #### [facility] [address] [place], [address] Basophils/100 WBC (Bld) 0.3 % Normal 0-1 [facility] Comment on above: Performed By: #### M 100.638 #### [facility] [address] [place], [address] Eosinophils/100 WBC (Bld) 1.0 % Normal 0-5 [facility] Comment on above: Performed By: #### M 100.638 #### [facility] [address] [place], [address] Erythrocyte distribution width (RBC) [Ratio] 12.6 % Normal 11.6-14.6 [facility] Comment on above: Performed By: #### M 100.638 #### [facility] [address] [place], [address] Hematocrit (Bld) [Volume fraction] 36.2 % Low 40-54 [facility] Comment on above: Performed By: #### M 100.638 #### [facility] [address] [place], [address] Hemoglobin (Bld) [Mass/Vol] 12.6 g/dL Low 13.0-16.5 [facility] Comment on above: Performed By: #### M 100.638 #### [facility] [address] [place], [address] IG% 0.700 Normal 0.0-0.9 [facility] Comment on above: Result Comment: IG% - Immature Granulocytes (promyelocytes, myelocytes and metamyelocytes) > 1% indicates that a LEFT SHIFT is Present. Performed By: #### M 100.638 #### [facility] [address] [place], [address] Lymphocytes/100 WBC (Bld) 6.9 % Low 19-41 [facility] Comment on above: Performed By: #### M 100.638 #### [facility] [address] [place], [address] MCH (RBC) [Entitic mass] 30.9 pg Normal 27.0-32.0 [facility] Comment on above: Performed By: #### M 100.638 #### [facility] [address] [place], [address] MCHC (RBC) [Mass/Vol] 34.8 g/dL Normal 32-36 [facility] Comment on above: Performed By: #### M 100.638 #### [facility] [address] [place], [address] MCV (RBC) [Entitic vol] 88.7 fL Normal 80-94 [facility] Comment on above: Performed By: #### M 100.638 #### [facility] [address] [place], [address] Monocytes/100 WBC (Bld) 7.2 % Normal 0-10 [facility] Comment on above: Performed By: #### M 100.638 #### [facility] [address] [place], [address] Neutrophils/100 WBC (Bld) 83.9 % High 47-70 [facility] Comment on above: Performed By: #### M 100.638 #### [facility] [address] [place], [address] Nucleated RBC (Bld) [#/Vol] 0 10*3/uL Normal 0-5 [facility] Comment on above: Performed By: #### M 100.638 #### [facility] [address] [place], [address] Platelet mean volume (Bld) [Entitic vol] 9.1 fL Normal 6.2-12.0 [facility] Comment on above: Performed By: #### M 100.638 #### [facility] [address] [place], [address] Platelets (Bld) [#/Vol] 100 10*3/uL Low 150-450 [facility] Comment on above: Performed By: #### M 100.638 #### [facility] [address] [place], [address] RBC (Bld) [#/Vol] 4.08 10*6/uL Low 4.6-6.2 [facility] Comment on above: Performed By: #### M 100.638 #### [facility] [address] [place], [address] RDW SD 40.6 fl Normal 35.1-43.9 [facility] Comment on above: Performed By: #### M 100.638 #### [facility] [address] [place], [address] WBC (Bld) [#/Vol] 3.1 10*3/uL Low 4.4-11.0 [facility] Comment on above: Performed By: #### M 100.638 #### [facility] [address] [place], [address] CT Chest, Abd, Pel w/Contras ton 04-15-2025 CT Chest, Abd, Pel w/Contrast [facility] Imaging Services [address] [place] [address] CT Chest, Abd, Pel w/Contrast MR#: [id number] Acct: [id number] Name: ASCENCION WEIR Rep #: [id number] : 1950 M 74 From: Manpreet Judge MD PCP: Dr. Mike Solorzano MD Status: [facility] ER Study: CT Chest, Abd, Pel w/Contrast Date of Exam: Exam# [id number] Ordering Dr: Debora Diaz MD PROCEDURE: CT CHEST, ABD, PEL [...] abnormality. Incidental findings as above Reading [facility] CC: Dr. Mike Solorzano MD; Dr. Debora Diaz MD Milking System Installer: Signed Normal [facility] Carbon dioxide, total [Moles /volume] in Central venous bloodOrdered By: Omer Boo on 04-15-2025 CO2 [Moles/Vol] 23.1 mmol/L 21.0-32.0 [facility] Chest 1 View (Portable)on Chest 1 View (Portable) [facility] Imaging Services [address] [place], [place] [id number] Chest 1 View (Portable) MR#: [id number] Acct: [id number] Name: ASCENCION WEIR Rep #: [id number] : 1950 M 74 From: Noah Torres MD PCP: Dr. Mike Solorzano MD Status: REG ER Study: Chest 1 View (Portable) Date of Exam: 04/15/25 Exam# [id number] Ordering Dr: Omer Boo MD PROCEDURE: CHEST 1 VIEW (PORTABLE) 04/15/2025 REASON FOR EXAM: TACHYPNEA TECHNIQUE: Frontal view of the chest. COMPARISON: 03/16/2022 chest x-ray FINDINGS: Hardware: Sternotomy wires are present. Heart: The heart size is normal. Lungs: The lungs are clear. Bones: The bones are unremarkable. RAD/Chest 1 View (Portable) IMPRESSION: No Acute Findings. Reading Location: [facility] CC: Dr. Mike Solorzano MD; Dr. Omer Boo MD Milking System Installer: Signed Normal [facility] Chloride assayOrdered By: Kadi Boo on 04-15-2025 Chloride [Moles/Vol] 96 mmol/L Low 98-108 [facility] Comprehensive Metabolic Prof ilon 04-15-2025 Albumin [Mass/Vol] 4.3 g/dL Normal 3.4-4.8 [facility] Comment on above: Performed By: #### M 100.638 #### [facility] [address] [place], [address] Albumin/Globulin [Mass ratio] 1.6 {ratio} Normal 0.9-2.4 [facility] Comment on above: Performed By: #### M 100.638 #### [facility] [address] [place], [address] ALK PHOS 99 U/L Normal 40-129 [facility] Comment on above: Performed By: #### M 100.638 #### [facility] [address] [place], [address] ALT [Catalytic activity/Vol] 30 U/L Normal <=46 [facility] Comment on above: Performed By: #### M 100.638 #### [facility] [address] [place], [address] AST [Catalytic activity/Vol] 36 U/L Normal <=37 [facility] Comment on above: Performed By: #### M 100.638 #### [facility] [address] [place], [address] Bilirubin [Mass/Vol] 0.52 mg/dL Normal 0.00-1.30 [facility] Comment on above: Performed By: #### M 100.638 #### [facility] [address] [place], [address] BUN/CRE 14.6 RATIO Normal 10-20 [facility] Comment on above: Performed By: #### M 100.638 #### [facility] [address] [place], [address] Calcium [Mass/Vol] 9.3 mg/dL Normal 7.6-11.0 [facility] Comment on above: Performed By: #### M 100.638 #### [facility] [address] [place], [address] Chloride [Moles/Vol] 96 mmol/L Low 98-108 [facility] Comment on above: Performed By: #### M 100.638 #### [facility] [address] [place], [address] CO2 [Moles/Vol] 23.1 mmol/L Normal 21.0-32.0 [facility] Comment on above: Performed By: #### M 100.638 #### [facility] [address] [place], [address] Creatinine [Mass/Vol] 0.91 mg/dL Normal 0.70-1.20 [facility] Comment on above: Performed By: #### M 100.638 #### [facility] [address] [place], [address] ECRCL 74.67 ml/min Normal 50-250 [facility] Comment on above: Performed By: #### M 100.638 #### [facility] [address] [place], [address] GAP 13 Normal 5-15 [facility] Comment on above: Performed By: #### M 100.638 #### [facility] [address] [place], [address] GFR/1.73 sq M.predicted among non-blacks MDRD (S/P/Bld) [Vol rate/Area] 88 mL/min/{1.73_m2} Normal >60 [facility] Comment on above: Result Comment: mL/m in/1.73m2 CKD-EPI Creatinine Equation (2020) Performed By: #### M 100.638 #### [facility] [address] [place], [address] Globulin (S) [Mass/Vol] 2.8 g/dL Normal 2.2-4.2 [facility] Comment on above: Performed By: #### M 100.638 #### [facility] [address] [place], [address] Glucose [Mass/Vol] 125 mg/dL High 70-99 [facility] Comment on above: Performed By: #### M 100.638 #### [facility] [address] [place], [address] Potassium [Moles/Vol] 4.6 mmol/L Normal 3.3-5.1 [facility] Comment on above: Performed By: #### M 100.638 #### [facility] [address] [place], [address] Sodium [Moles/Vol] 132 mmol/L Low 133-145 [facility] Comment on above: Performed By: #### M 100.638 #### [facility] [address] [place], [address] T PROT 7.1 g/dL Normal 5.9-8.4 [facility] Comment on above: Performed By: #### M [id number] #### [facility] [address] [place], [place], [address] Urea nitrogen [Mass/Vol] 13 mg/dL Normal 4-19 [facility] Comment on above: Performed By: #### M 100.638 #### [facility] [address] [place], [address] Emergency Department Summary on 04-15-2025 Emergency Department Summary [facility] Medical Records Department [address] [place] [address] Emergency Department Summary 04/15/25 MR#: [id number] Acct: [id number] Name: ASCENCION WEIR Rep #: [id number] : 1950 74 From: Omer Boo MD [...] He has history of coronary artery disease status post bypass surgery, carotid artery disease, pericardial effusion, postoperative atrial fibrillation, hyperlipidemia, asthmatic bronchitis, obstructive sleep apnea, type 2 diabetes, essential hypertension who presents from nursing facility because of not feeling well and weakness. Patient was unaware that he had a temperature 103.2. His only complaints on review of system is intermittent headache, cough that is nonproductive and frequency. Prior similar symptoms: No Recent Illness/Hospitalization: No PFSH PFS Medical History Right carotid bruit History of tenosynovitis Former smoker H/O methicillin resistant Staphylococcus aureus infection Arthritis Swelling of joint of left hand Hearing problem Cataracts, bilateral Back problem Arthritis HLD (hyperlipidemia) Hyponatremia Near syncope Lightheaded Chest wall pain Postoperative atrial fibrillation Atherosclerotic heart disease of marshall coronary artery without angina pectoris Pericardial effusion Fever Chest pain Multi-vessel coronary artery stenosis Dyspnea on exertion Abnormal echocardiogram Nonrheumatic aortic (valve) stenosis Intractable back pain Benign prostatic hypertrophy Physical debility Pain Asthmatic bronchitis with exacerbation Obstructive sleep apnea syndrome Obesity Type II diabetes mellitus Benign essential hypertension Home Medications ???Medication ???Instructions ???Recorded ???Last Taken ???Type aspirin 81 mg chewable tablet 81 mg PO DAILY heart health 03/18/20 History metformin 500 mg tablet 1,000 mg PO BIDCM diabetes 7 03/17/20 History tamsulosin 0.4 mg capsule 0.4 mg PO QHS BPH 11/21/16 8 History gabapentin 400 mg capsule 400 mg PO TID 02/28/20 Unknown His tory hydroxychloroquine 200 mg tablet 200 mg PO DAILY 02/28/20 Unknown H istory tramadol 50 mg tablet 50 mg PO Q6H PRN PRN Pain Or Fever 05/29/20 Unknown History multivitamin 1 tab PO DAILY 06/09/20 Unknown Hi story celecoxib 200 mg capsule (Celebrex) 200 mg PO BID 06/27/20 Unknown History atorvastatin 20 mg tablet 20 mg PO QHS 12/22/20 Unknown Hist ory insulin detemir U-100 100 unit/mL 10 unit subcut QHS PRN 05/31/24 U nknown History (3 mL) subcutaneous pen (Levemir FlexTouch U-100 Insulin) losartan 25 mg tablet 25 mg PO QDAY #90 tabs 05/31/24 Un known Rx metoprolol succinate 50 mg 50 mg PO QDAY 05/31/24 Unknown His tory tablet,extended release 24 hr metoprolol succinate 100 mg 50 mg PO DAILY 04/15/25 Unknown Hi story tablet,extended release 24 hr Allergy/AdvReac Type Severity [...] or sore throat Cardiovascular Cardiovascular: Denies chest pain (more content not included)... Normal [facility] Eosinophil percentageOrdered By: Omeraylin Boo on 04-15-2025 Eosinophils/100 WBC (Bld) 1.0 % 0-5 [facility] Erythrocyte distribution wid th ratioOrdered By: Omeraylin Boo on 04-15-2025 Erythrocyte distribution width (RBC) [Ratio] 12.6 % 11.6-14.6 [facility] Erythrocyte distribution wid th standard deviationOrdered By: [facility] on 04-15-2025 Erythrocyte distribution width (RBC) [Ratio] 40.6 fl 35.1-43.9 [facility] Glomerular filtration rate ( GFR) estimation/1.73 sq m using serum, plasma, or whole bOrdered By: Omeraylin Boo on 04-15-2025 GFR/1.73 sq M.predicted among non-blacks MDRD (S/P/Bld) [Vol rate/Area] 88 mL/min/{1.73_m2} >60 [facility] Comment on above: mL/min/1.73m2 CKD-EP I Creatinine Equation (2020) H AND P Exam - [facility] 04-15-2025 H&P Exam - Hospitalist [facility] Medical Records Department [address] [place] [address] H P Exam - Hospitalist 04/15/251936 MR#: [id number] Acct: [id number] Name: ASCENCION WEIR Rep #: [id number] : 1950 74 From: Debora Diaz MD PCP: Dr. Mike Solorzano MD Status:ADM IN Location: [facility] [id number] HPI - General General Date of Admission: 04/15/25 Date of Service: 04/15/25 Chief Complaint: Confusion, dry cough HPI Narrative ASCENCION WEIR, is a 74-year-old male with a history of CABG, BPH, diabetes, aortic valve replacement, chronic back pain, LIAN, hypertension who presented to [facility] ED 04/15/2025 with confusion, shakes, sweats that started overnight. Patient had been in his usual health until sometime last night when he became a little bit confused, starting this morning his confusion increased and he was having shaking episodes and sweats. He was brought to the ED and temp noted to be 103.6, heart rate 112, blood pressure 156/53, respiratory rate 18 and pulse ox 95% on room air. CBC with a white blood cell count of 3.1, hemoglobin 12.6 and platelet count of 100. CMP with sodium of 132, chloride 96 and glucose 125 with normal liver panel and kidney function, UA not suggestive of UTI. Chest x-ray with no acute findings. Lactic acid 1.6. Patient was persistently febrile so cultures obtained and he was started on vancomycin and hospitalist contacted for admission. Did order chest/abdomen/pelvis CT with IV contrast to be done in the ED to try to identify source however this only revealed minimal inflammatory change in the right lower lobe. Patient evaluated with family members at bedside, they confirm history as above, patient's only specific complaint aside from that that was new was a little bit of a cough since yesterday that has not been productive, no diarrhea or abdominal pain, has chronic back pain and this is not necessarily acutely changed. Does feel little bit weaker but this is not focal in nature. Family member at bedside notes he had a rash on his lower extremities 2 weeks ago that they thought might of been poison josie, this was treated by PCP and resolved. Patient also notes he had tripped a couple of times recently and fell on his knees, at one point his right knee had been a little bit swollen after a fall however that is resolved and there is no more swelling, erythema, pain, redness or evidence of any joint infection. Patient denies any open wounds with any drainage. Does follow with Dr. Johnson for pain management. Of note family at bedside says mental status is pretty much back to baseline now. 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 Pericardial effusion Fever Chest pain Multi-vessel coronary artery stenosis Dyspnea on exertion Abnormal echocardiogram Nonrheumatic aortic (valve) stenosis Intractable back pain Benign prostatic hypertrophy Physical debility Pain Asthmatic bronchitis with exacerbation Obstructive sleep apnea syndrome Obesity Type II diabetes mellitus Benign essential hypertension Home Medications ???Medication ???Instructions ???Recorded ???Last Taken ???Type aspirin 81 mg chewable tablet 81 mg PO DAILY heart health 03/18/20 History metformin 500 mg tablet 1,000 mg PO BIDCM diabetes 7 03/17/20 History tamsulosin 0.4 mg capsule 0.4 mg PO QHS BPH 11/21/16 8 History gabapentin 400 mg capsule 400 mg PO TID 02/28/20 Unknown His tory hydroxychloroquine 200 mg tablet 200 mg PO DAILY 02/28/20 Unknown H istory tramadol 50 mg tablet 50 mg PO Q6H PRN PRN Pain Or Fever 05/29/20 Unknown History multivitamin 1 tab PO DAILY 06/09/20 Unknown Hi story celecoxib 200 mg capsule (Celebrex) 200 mg PO BID 06/27/20 Unknown History atorvastatin 20 mg tablet 20 mg PO QHS 12/22/20 Unknown Hist ory insulin detemir U-100 100 unit/mL 10 unit subcut QHS PRN 05/31/24 U nknown History (3 mL) subcutaneous pen (Levemir FlexTouch U-100 Insulin) losartan 25 mg tablet 25 mg PO QDAY #90 tabs 05/31/24 Un known Rx metoprolol succinate 50 mg 50 mg PO QDAY 05/31/24 Unknown His tory tablet,extended release 24 hr metoprolol succinate 100 mg 50 mg PO DAILY 04/15/25 Unknown Hi story tablet,extended release 24 hr Allergy/AdvReac Type Severity Reaction Status Date / Time No Known Allergies Allergy Verified 04/15/25 14:20 Family Hist (more content not included)... Normal [facility] Hematocrit Auto (Bld) [Volum e fraction]Ordered By: Omer Boo on 04-15-2025 Hematocrit (Bld) [Volume fraction] 36.2 % Low 40-54 [facility] Hemoglobin measurementOrdere d By: Omer Boo on 04-15-2025 Hemoglobin (Bld) [Mass/Vol] 12.6 g/dL Low 13.0-16.5 [facility] Immature granulocytes/100 WB C Auto (Bld)Ordered By: Omeraylin Boo on 04-15-2025 Immature granulocytes/100 WBC (Bld) 0.700 % 0.0-0.9 [facility] Comment on above: IG% - Immature Granu locytes (promyelocytes, myelocytes and metamyelocytes) > 1% indicates that a LEFT SHIFT is Present. Influenza virus A and B and SARS-CoV-2 (COVID-19) and Respiratory syncytial virus RNAOrdered By: Omer Boo on 04-15-2025 SARS-CoV-2 (COVID-19) RNA AMARIS+probe Ql (Unsp spec) [facility] International normalized rat io (INR) calculationOrdered By: Omer Boo on 04-15-2025 INR Coag (Bld) [Relative time] 1.2 {INR} [facility] Ketones Test strip Ql (U)Ord ered By: Omer Boo on 04-15-2025 Ketones Ql (U) 5 mg/dl High Negative [facility] - Chemistry and C hemistry - challengeOrdered By: Omeraylin Boo on 04-15-2025 AST [Catalytic activity/Vol] 36 U/L <38 [facility] Lactic Acidon 04-15-2025 Lactate [Moles/Vol] 1.6 mmol/L Normal 0.0-2.0 [facility] Comment on above: Order Comment: Y Performed By: #### L 501.080 #### [facility] [address] [place], [address] Lactic acid measurementOrder ed By: Omer Boo on 04-15-2025 Lactate [Moles/Vol] 1.6 mmol/L 0.0-2.0 [facility] M100.678on 04-15-2025 M100.678 Pending SARS-CoV-2 (COVID 19) Negative INFLUENZA A Negative INFLUENZA B Negative RSV PCR Negative Normal [facility] Comment on above: Performed By: #### M 100.447 #### [facility] [address] [place], [address] MCV (mean corpuscular volume ) determinationOrdered By: Omeraylin Boo on 04-15-2025 MCV (RBC) [Entitic vol] 88.7 fL 80-94 [facility] Mean corpuscular hemoglobin (MCH) determinationOrdered By: Omeraylin Boo on 04-15-2025 MCH (RBC) [Entitic mass] 30.9 pg 27.0-32.0 [facility] Mean corpuscular hemoglobin concentration (MCHC) determinationOrdered By: Omer Boo on 04-15-2025 MCHC (RBC) [Mass/Vol] 34.8 g/dL 32-36 [facility] Mean platelet volume determi nationOrdered By: Omer Boo on 04-15-2025 Platelet mean volume (Bld) [Entitic vol] 9.1 fL 6.2-12.0 [facility] Microscopic analysis of urin e for red blood cells (RBC)Ordered By: Omer Boo on 04-15-2025 Microscopic analysis of urine for red blood cells (RBC) 0-5 SEEN /hpf 0-5 [facility] Monocyte percentageOrdered B y: Omer Boo on 04-15-2025 Monocytes/100 WBC (Bld) 7.2 % 0-10 [facility] Mucus LM Ql (Urine sed)Order ed By: Omer Boo on 04-15-2025 Mucus Ql (Urine sed) 0 SEEN /hpf [facility] Neutrophil percentageOrdered By: Omer Boo on 04-15-2025 Neutrophils/100 WBC (Bld) 83.9 % High 47-70 [facility] Nitrite Test strip Ql (U)Ord ered By: Omre Boo on 04-15-2025 Nitrite Ql (U) Negative Negative [facility] Nucleated red blood cell per centageOrdered By: Omer Boo on 04-15-2025 Nucleated RBC/100 WBC (Bld) [Ratio] 0 % 0-5 [facility] Organism identificationOrder ed By: Omer Boo on 04-15-2025 Microorganism identified Cx Nom (Unsp spec) Meth. resistant Staph. aureus Abnormal [facility] Microorganism identified Cx Nom (Unsp spec) mecA Resistance Marker Abnormal [facility] Partial Thromboplast Timeon 04-15-2025 aPTT Coag (Bld) [Time] 30.3 s Normal 24.1-36.2 [facility] Comment on above: Performed By: #### M 100.638 #### [facility] [address] [place], [address] Platelet countOrdered By: Kadi Boo on 04-15-2025 Platelets (Bld) [#/Vol] 100 10*3/uL Low 150-450 [facility] Potassium measurement (mass/ volume)Ordered By: Omeraylin Boo on 04-15-2025 Potassium (Unsp spec) [Mass/Vol] 4.6 mmol/L 3.3-5.1 [facility] Protein Test strip Ql (U)Ord ered By: Omer Boo on 04-15-2025 Protein Ql (U) 30 mg/dl High Negative [facility] Prothrombin Time w/INRon INR Coag (PPP) [Relative time] 1.2 {INR} Normal [facility] Comment on above: Performed By: #### M 100.638 #### [facility] [address] [place], [address] PT Coag (PPP) [Time] 15.1 s High 11.7-14.9 [facility] Comment on above: Performed By: #### M 100.638 #### [facility] [address] [place], [address] Prothrombin timeOrdered By: Omer Boo on 04-15-2025 PT Coag (PPP) [Time] 15.1 s High 11.7-14.9 [facility] RBC Auto (Bld) [#/Vol]Ordere d By: Omer Boo on 04-15-2025 RBC (Bld) [#/Vol] 4.08 10*6/uL Low 4.6-6.2 [facility] Respiratory pathogens detect ion panel by molecular detection methodOrdered By: Debora Diaz on 04-15-2025 Respiratory pathogens DNA and RNA panel AMARIS+probe (Resp) [facility] STROKE Brain/Head without Co nton 04-15-2025 STROKE Brain/Head without Cont [facility] Imaging Services [address] [place], [place] [id number] STROKE Brain/Head without Cont MR#: [id number] Acct: [id number] Name: ASCENCION WEIR Rep #: [id number] : 1950 M 74 From: Stephan Fry MD PCP: Dr. Mike Solorzano MD Status: ADM IN Study: STROKE Brain/Head without Cont Date of Exam: 0 04/15/25 Exam# [id number] Ordering Dr: Kavon Schultz MD PROCEDURE: STROKE CT BRAIN/HEAD WITHOUT CONTRAST 04/15/2025 REASON FOR EXAM: CHANGE OF MENTATION TECHNIQUE: STROKE CT BRAIN/HEAD WITHOUT CONT Coronal and Sagittal reconstruction series were provided. One or more dose reduction techniques were used (e.g., Automated exposure control, adjustment of the mA and/or kV according to patient size, use of iterative reconstruction technique. RADIATION DOSE SUMMARY: CTDlvol: 44.99 mGy DLP: 914.22 mGycm COMPARISON: 03/29/2024. FINDINGS: No acute intracranial hemorrhage, extra-axial collection, mass effect or evidence of acute infarct. Mild generalized brain parenchymal volume loss, and chronic microangiopathic changes. Nonspecific mineralization in the bilateral basal ganglia. Atherosclerotic vascular calcifications. Absent marshall ocular lenses. Intact skull base and calvarium. Well-aerated paranasal sinuses and mastoid air cells. Small left maxillary sinus mucous retention cysts/polyps. CT/STROKE Brain/Head without Cont IMPRESSION: No acute intracranial abnormality. Reading Location: [id number] CC: Dr. Mike Solorzano MD; Dr. Kavon Schultz MD [employer] Installer: Signed Normal [facility] STROKE CTA Head AND Neck W/C onon 04-15-2025 STROKE CTA Head AND Neck W/Con [facility] Imaging Services [address] [place], [place] [address] STROKE CTA Head AND Neck W/Con MR#: [id number] Acct: [id number] Name: ASCENCION WEIR Rep #: [id number] : 1950 M 74 From: Stephan Fry MD PCP: Dr. Mike Solorzano MD Status: ADM IN Study: STROKE CTA Head AND Neck W/Con Date of Exam: 0 04/15/25 Exam# [id number] Ordering Dr: Kavon Schultz MD PROCEDURE: STROKE CTA HEAD AND NECK W/CON 04/15/2025 REASON FOR EXAM: CHANGE IN MENTATION TECHNIQUE: STROKE CTA HEAD AND NECK W/CON Multiplanar Sagittal and Coronal images were obtained. 3D and MIP post processing was performed. One or more dose reduction techniques were used (e.g., Automated exposure control, adjustment of the mA and/or kV according to patient size, use of iterative reconstruction technique). RADIATION DOSE SUMMARY: DLP: 865.11 mGycm COMPARISON: CTA head/neck 03/29/2024. FINDINGS: CTA HEAD: Patent intracranial arterial vasculature. No large vessel occlusion, flow-limiting stenosis, saccular aneurysm, or vascular malformation identified. Major dural venous sinuses are patent. CTA NECK: Left vertebral artery arises directly from the aortic arch. Bilateral cervical carotid and vertebral arteries are patent. No aneurysm or dissection. Atherosclerotic plaque at the carotid artery bifurcations extending into the proximal ICAs, greater on the right with moderate stenosis of the proximal right ICA. More mild less than 50% stenosis of the proximal left ICA. Atherosclerotic calcification along the carotid siphons and distal vertebral artery V4 segments without significant luminal narrowing. Dominant right vertebral artery with hypoplastic distal V4 segment of the left vertebral artery, anatomic variation. NON-ANGIOGRAPHIC FINDINGS: Mild mucosal thickening in the floors of the maxillary sinuses. Mild multilevel degenerative changes of the visualized cervicothoracic spine with anterior bridging osteophytosis compatible with DISH. CT/STROKE CTA Head AND Neck W/Con IMPRESSION: 1. No large vessel arterial occlusion or high-grade stenosis. 2. Atherosclerotic plaque at the carotid bifurcations with moderate stenosis of the proximal right ICA, and mild less than 50% stenosis of the proximal left ICA. Reading Location: [id number] CC: Dr. Mike Solorzano MD; Dr. Kavon Schultz MD Milking System Installer: Signed Normal [facility] Serum creatinine measurement (mass/volume)Ordered By: [facility] on 04-15-2025 Creatinine [Mass/Vol] 0.91 mg/dL 0.70-1.20 [facility] Serum globulin measurementOr dered By: Omeraylin Boo on 04-15-2025 Globulin (S) [Mass/Vol] 2.8 g/dL 2.2-4.2 [facility] Serum glucose measurement (m ass/volume)Ordered By: Omeraylin Boo on 04-15-2025 Glucose [Mass/Vol] 125 mg/dL High 70-99 [facility] Serum or plasma alanine zeng otransferase (ALT) measurementOrdered By: [facility] on 04-15-2025 ALT [Catalytic activity/Vol] 30 U/L <47 [facility] Serum or plasma albumin tatum urement (mass/volume)Ordered By: [facility] on 04-15-2025 Albumin [Mass/Vol] 4.3 g/dL 3.4-4.8 [facility] Serum or plasma albumin/glob ulin mass ratioOrdered By: [facility] on 04-15-2025 Albumin/Globulin [Mass ratio] 1.6 {ratio} 0.9-2.4 [facility] Serum or plasma alkaline mike sphatase measurementOrdered By: [facility] on 04-15-2025 ALP [Catalytic activity/Vol] 99 U/L 40-129 [facility] Serum or plasma calcium tatum urement (mass/volume)Ordered By: [facility] on 04-15-2025 Calcium [Mass/Vol] 9.3 mg/dL 7.6-11.0 [facility] Serum or plasma urea nitroge n measurement (mass/volume)Ordered By: Omer Boo on 04-15-2025 Urea nitrogen [Mass/Vol] 13 mg/dL 4-19 [facility] Sodium levelOrdered By: Omer Boo on 04-15-2025 Sodium [Moles/Vol] 132 mmol/L Low 133-145 [facility] Squamous epithelial cells de tection in urine sediment by light microscopyOrdered By: Omer Boo on 04-15-2025 Epithelial cells.squamous LM Ql (Urine sed) 0-5 SEEN /hpf 0-5 [facility] Total proteinOrdered By: Omer Boo on 04-15-2025 Protein [Mass/Vol] 7.1 g/dL 5.9-8.4 [facility] Urinalysis, Completeon 04-15 EPI,SQUAMOUS 0-5 SEEN Normal 0-5 [facility] Comment on above: Order Comment: DEMOND TER SPECIMEN Performed By: #### M 100.638 #### [facility] [address] [place], [address] RBC 0-5 SEEN Normal 0-5 [facility] Comment on above: Order Comment: DEMOND TER SPECIMEN Performed By: #### M 100.638 #### [facility] [address] [place], [address] WBC 0-5 SEEN Normal 0-5 [facility] Comment on above: Order Comment: DEMOND TER SPECIMEN Performed By: #### M 100.638 #### [facility] [address] [place], [address] BACTERIA 0 SEEN Normal None Seen [facility] Comment on above: Order Comment: DEMOND TER SPECIMEN Performed By: #### M 100.638 #### [facility] [address] [place], [address] Mucus Ql (Urine sed) 0 SEEN Normal [facility] Comment on above: Order Comment: DEMOND TER SPECIMEN Performed By: #### M 100.638 #### [facility] [address] [place], [address] Urine clarityOrdered By: Omer Boo on 04-15-2025 Clarity (U) Clear Clear [facility] Urine color determinationOrd ered By: Omer Boo on 04-15-2025 Color (U) Yellow Yellow [facility] Urine cultureOrdered By: Omer Boo on 04-15-2025 Bacteria identified Cx Nom (U) Culture exhibits no growth. [facility] Urine glucose detectionOrder ed By: Omer Boo on 04-15-2025 Glucose Ql (U) Normal mg/dl Normal [facility] Urine leukocyte esterase det ection by dipstickOrdered By: Omer Boo on 04-15-2025 Leukocyte esterase Test strip Ql (U) Negative Negative [facility] Urine pHOrdered By: Omer viera on 04-15-2025 pH (U) 7.0 [pH] 5.0 - 8.0 [facility] Urine sediment bacteria coun t by microscopy (number/high power field)Ordered By: Omer Boo on 04-15-2025 Bacteria LM.HPF (Urine sed) [#/Area] 0 /[HPF] None Seen [facility] Urine specific gravity measu rementOrdered By: Omer Boo on 04-15-2025 Specific gravity (U) [Rel density] 1.010 1.002-1.030 [facility] Urine urobilinogen measureme ntOrdered By: Omer Boo on 04-15-2025 Urobilinogen Ql (U) Normal mg/dl Normal [facility] White blood cell (WBC) count Ordered By: Omer Boo on 04-15-2025 WBC (Bld) [#/Vol] 3.1 10*3/uL Low 4.4-11.0 [facility] White blood cell countOrdere d By: Omer Boo on 04-15-2025 White blood cell count 0-5 SEEN /hpf 0-5 [facility] CNOVon 04-01-2025 CNOV Office Visit (WOUCA) ----- ASCENCION WEIR ([id number]) 1950 M Date Time Provider Department 04/01/25 10:30 AM LISA QUINTANILLA During your visit today, we recorded the following information about you: Temperature Pulse Respiration Blood pressure 96.3 degrees 100/minute 20/minute 120/66 Weight 89.6 kg Lisa Quintanilla MD 04/01/2025 10:52 AM Signed [facility] Subjective Ascencion Weir is a 74 year [...] catching sometimes. I suggested follow-up with Dr. Daiz for trigger finger and concern for foreign [...] 12/19/2007 ABSCES (more content not included)... [facility] 02[facility]18-2025 [facility] Telephone (FPWADS) ----- ASCENCION WEIR ([id number]) 1950 M Date Time Provider Department 02/18/25 AARON SOLORZANO During your visit today, we recorded the following information about you: Veronica Chow 02/18/2025 12:00 PM Signed Patient requesting medication tramadol hcl(ULTRAM 50 MG TAB) Patient last seen 02/11/25 Future visit scheduled: yes PHARMACY: [facility]. Aaron Solorzano MD 02/20/2025 10:37 AM Signed The following approved medication requests have been transmitted electronically. Requested Prescriptions Signed Prescriptions Disp Refills traMADol (ULTRAM) 50 mg tablet 120 tablet 0 Sig: Take 1 tablet by mouth every 6 hours as needed for pain for up to 30 days. Authorizing Provider: AARON SOLORZANO MD Allergies As of Date: 02/18/2025 Noted [...] stenosis [I35.0] 05/31/2019 Coronary artery disease involving marshall malik*09/18/2020 Thrombocytopenia (HCC) [D69.6] 01/07/2023 Longstanding persistent [...] Encounter Status:Closed by MIKE SOLORZANO on 02/20/25 [facility] 02-11-2025 CNCO Letter Text Normal [facility] CNOVon 02-11-2025 CNOV Office Visit (FPWADS ) ----- ASCENCION WEIR ([id number]) 1950 M Date Time Provider Department 02/11/25 [...] Under the care of Dr. Johnson, a scene painter in [place]. - Recent x-rays performed for Dr. Johnson. [...] recent epidural steroid injection by Dr. Johnson, scene painter, provided partial relief. - Pain radiates to [...] June to monitor hemoglobin levels. Recording using Keenjar software for draft documentation of the visit was discussed with the patient/authorized financial services sales representative; all questions welcomed and answered. Patient/authorized financial services sales representative agreed to proceed Office Visit on 02/11/25 HEMOGLOBIN A1C COMPREHENSIVE METABOLIC PANEL LIPID PANEL, FASTING COMPLETE BLOOD COUNT Requested Prescriptions No prescriptions requested or ordered in this encounter Aaron Solorzano MD Referring Provider: AARON SOLORZANO [[id number]] Allergies As of Date: 02/11/2025 Noted Allergy Reaction ENTEX PSE (PSEUDOEPHEDRINE-GUAIFE*1 10/12/2006 5 - Intolerance Comments: Patient states he does not have any allergies Date Reviewed: 02/11/2025 Reviewed by: Vernell Hernandez LPN - Fully Assessed Reason for Visit: 6 Month Exam [189] Primary Visit Diagnosis:Lumbar spondylosis [M47.816] Other Visit Diagnoses:Controlled type 2 diabetes mellitus with diabetic ne (more content not included)... [facility] ----- ASCENCION WEIR ([id number]) 1950 M Date Time Provider Department 01/24/25 AARON SOLORZANO [employer] During your visit today, we recorded the following information about you: Veronica Chow 01/24/2025 4:06 PM Deepika Torres is calling Aaron Solorzano MD today with concern regarding medication question Patient asking if he should be taking metFORMIN (GLUCOPHAGE) 1,000 mg tablet Patient has been identified by name and birthdate. Duration of symptoms: N/A Person calling: self Call patient at: on cell [phone] (home) Was an appointment scheduled: No Closing [...] 1000 mg twice a day? MD Bruno Nance, [place], [place] 01/25/2025 3:44 PM Signed Spoke with patient [...] stenosis [I35.0] 05/31/2019 Coronary artery disease involving marshall malik*09/18/2020 Thrombocytopenia (HCC) [D69.6] 01/07/2023 Longstanding persistent atrial fibrillation (HC*01/07/2023 Peripheral arterial disease (HCC) [I73.9] 06/16/2023 Encounter Status:Closed by MIKE SOLORZANO on 01/25/25 Normal [facility] L/S Spine w Bend Min 6 [facility] 01-09-2025 L/S Spine w Bend Min 6 [facility] [address] [place] [address] L/S Spine w Bend Min 6 Vw MR#: [id number] Acct: [id number] Name: ASCENCION WEIR Rep #: [id number] : 1950 M 74 From: Alex Gupta MD PCP: Dr. Mike Solorzano MD Status: REG CLI Study: L/S Spine w Bend Min 6 Vw Date of Exam: Exam# [id number] Ordering Dr: Lucy Velasco PROCEDURE: L/S SPINE W BEND MIN 6 VW 01/09/2025 REASON FOR EXAM: LUMBAR DEGENERATIVE DISC DISEASE TECHNIQUE: 6 views; AP, bilateral oblique, lateral and flexion-extension COMPARISON: None available FINDINGS: 5 [id number]-[id number] lumbar vertebral body types identified. Leftward curvature, [...] spondylosis/discogenic change. Leftward curvature, scoliosis. Reading Location: [id number] CC: Lucy Velasco; Dr. Mike Solorzano MD Milking System Installer: Signed [facility] 01-02-2025 [facility] Telephone (KARI) ----- ASCENCION WEIR ([id number]) 1950 M Date Time Provider Department 01/02/25 AARON SOLORZANO During your visit today, we recorded the following information about you: Vernell Hernandez LPN 01/02/2025 2:58 PM Signed Received discharge summary from [facility] pt. Placed in provider's inbox for review. Route to [place] scanning Allergies As of Date: 01/02/2025 Noted Allergy Reaction ENTEX PSE (PSEUDOEPHEDRINE-GUAIFE*1 10/12/2006 5 - Intolerance Comments: Patient states he does not have any allergies Date Reviewed: 12/05/2024 Reviewed by: Jayla Chen LPN - Fully Assessed Reason for Visit: Received Outside Medical Records [3570] Cmt: [facility] PT discharge Prescriptions as of 01/02/2025 - [...] stenosis [I35.0] 05/31/2019 Coronary artery disease involving marshall malik*09/18/2020 Thrombocytopenia (HCC) [D69.6] 01/07/2023 Longstanding persistent atrial fibrillation (HC*01/07/2023 Peripheral arterial disease (HCC) [I73.9] 06/16/2023 Encounter Status:Closed by VERNELL HERNANDEZ on [facility]02/[facility] ----- ASCENCION WEIR ([id number]) 1950 M Date Time Provider Department 01/01/25 AARON SOLORZANO During your visit today, we recorded the following information about you: Veronica Chow 01/01/2025 10:04 AM Signed Patient requesting medication that is not current on list tramadol hcl(ULTRAM 50 MG TA Patient last seen 3-13-25 Future visit scheduled: yes PHARMACY: [facility] Allergies As of Date: 01/01/2025 Noted Allergy [...] stenosis [I35.0] 05/31/2019 Coronary artery disease involving marshall malik*09/18/2020 Thrombocytopenia (HCC) [D69.6] 01/07/2023 Longstanding persistent [...] Encounter Status:Closed by MIKE SOLORZANO on 01/01/25 Normal [facility] PT D/C Summary (1)on 025 PT D/C Summary (1) [facility] [address] [place] [address] / REHABILITATION SERVICES DISCHARGE SUMMARY MR#: [id number] Acct: [id number] Name: ASCENCION WEIR Rep #: [id number] : 1950 74 From: Jean Claude Berman [...] please feel free to call me at [phone]. Thank you for the referral of this patient. Sincerely, Jean Claude Breman, DPT, OCS, CSCS Balance/Gait/Functional tests Balance/Special Test Scores Functional Gait Assessment Score: 18 % Disability: 40.0000 CATSIB Score (Max score 120 seconds): 60 Lower Extremity Functional Score: 33 Improvement % Improvement: 5 01/01/25 3966 CC: Dr. Mike Solorzano MD EB Signed Normal [facility] 12-26-2024 [facility] Telephone (FPWADS) ----- ASCENCION WEIR ([id number]) 1950 M Date Time Provider Department 12/26/24 AARON SOLORZANO FPFUENTESDS During your visit today, we recorded the following information about you: Vernell Hernandez LPN 12/26/2024 2:07 PM Signed Received echo report from [facility]. Placed in provider's inbox for review. Route to [place] scanning Allergies As of Date: 12/26/2024 Noted Allergy Reaction ENTEX PSE (PSEUDOEPHEDRINE-GUAIFE*1 10/12/2006 5 - Intolerance Comments: Patient states he does not have any allergies Date Reviewed: 12/05/2024 Reviewed by: Jayla Chen LPN - Fully Assessed Reason for Visit: Received Outside Medical Records [1842] Cmt: Echo [facility] Prescriptions as of 12/26/2024 - multivitamin tablet [...] stenosis [I35.0] 05/31/2019 Coronary artery disease involving marshall malik*09/18/2020 Thrombocytopenia (HCC) [D69.6] 01/07/2023 Longstanding persistent atrial fibrillation (HC*01/07/2023 Peripheral arterial disease (HCC) [I73.9] 06/16/2023 Encounter Status:Closed by VERNELL HERNANDEZ on 12/26/24 Normal [facility] Echo Complete W/ Contraston 12-25-2024 Echo Complete W/ Contrast [facility] [address] [place] [address] Echo Complete W/ Contrast 12/25/24 1347 MR#: [id number] Acct: [id number] Name: ASCENCION WEIR Rep #: [id number] : 1950 74 From: Rod Maravilla MD Attending Dr: Dr. Rod Maravilla MD Status: REG CLI Ordering Dr: Rod Maravilla MD Date: 12/25/24 Location: [facility] Sex: M C Admitted: Reason For [...] MD Date Dictated: 12/25/24 1347 Date Transcribed: 12/26/24845 Milking System Installer: Signed [facility] 12-13-2024 [facility] Telephone (FPWADS) ----- ASCENCION WEIR ([id number]) 1950 M Date Time Provider Department 12/13/24 AARON SOLORZANO During your visit today, we recorded the following information about you: Vernell Hernandez LPN 12/13/2024 5:07 PM Signed Received lab results from [facility]. Placed in provider's inbox for review. Route to [place] scanning Allergies As of Date: 12/13/2024 Noted Allergy Reaction ENTEX PSE (PSEUDOEPHEDRINE-GUAIFE*1 10/12/2006 5 - Intolerance Comments: Patient states he does not have any allergies Date Reviewed: 12/05/2024 Reviewed by: Jayla Chen LPN - Fully Assessed Reason for Visit: Received Outside Medical Records [7461] Cmt: [facility] labs Prescriptions as of 12/13/2024 - multivitamin [...] stenosis [I35.0] 05/31/2019 Coronary artery disease involving marshall malik*09/18/2020 Thrombocytopenia (HCC) [D69.6] 01/07/2023 Longstanding persistent atrial fibrillation (HC*01/07/2023 Peripheral arterial disease (HCC) [I73.9] 06/16/2023 Encounter Status:Closed by VERNELL HERNANDEZ on 12/13/24 Normal [facility] Anion gap in Serum or Plasma Ordered By: Rod Maravilla on 12-11-2024 Anion gap [Moles/Vol] 10 mmol/L 01-10 [facility] BUN/creatinine ratioOrdered By: Rod Maravilla on 12-11-2024 Urea nitrogen/Creatinine [Mass ratio] 16.1 mg/mg 06-17 [facility] Bilirubin, totalOrdered By: Rod Maravilla on 12-11-2024 Bilirubin [Mass/Vol] 0.41 mg/dL 0.00-1.30 [facility] Calculated very low density lipoprotein (VLDL) cholesterol measurementOrdered By: Rod Maravilla on 12-11-2024 Calculated very low density lipoprotein (VLDL) cholesterol measurement 21 mg/dL 5-40 [facility] VLDL Cholesterol 21 mg/dL 5-40 [facility] Carbon dioxide, total [Moles /volume] in Central venous bloodOrdered By: Rod Maravilla on 12-11-2024 CO2 [Moles/Vol] 25.9 mmol/L 21.0-32.0 [facility] Chloride assayOrdered By: Roshan Maravilla on 12-11-2024 Chloride [Moles/Vol] 103 mmol/L 98-108 [facility] Comprehensive Metabolic Prof ilon 12-11-2024 Albumin [Mass/Vol] 4.3 g/dL Normal 3.4-4.8 [facility] Comment on above: Performed By: #### L 500.4050, L500.4100 #### [facility] [address] [place], [address] Albumin/Globulin [Mass ratio] 1.5 {ratio} Normal 0.9-2.4 [facility] Comment on above: Performed By: #### L 500.4050, L500.4100 #### [facility] [address] [place], [address] ALK PHOS 94 U/L Normal 40-129 [facility] Comment on above: Performed By: #### L 500.4050, L500.4100 #### [facility] [address] [place], [address] ALT [Catalytic activity/Vol] 17 U/L Normal <=46 [facility] Comment on above: Performed By: #### L 500.4050, L500.4100 #### [facility] [address] [place], [address] AST [Catalytic activity/Vol] 23 U/L Normal <=37 [facility] Comment on above: Performed By: #### L 500.4050, L500.4100 #### [facility] [address] [place], [address] Bilirubin [Mass/Vol] 0.41 mg/dL Normal 0.00-1.30 [facility] Comment on above: Performed By: #### L 500.4050, L500.4100 #### [facility] [address] [place], [address] BUN/CRE 16.1 RATIO Normal 10-20 [facility] Comment on above: Performed By: #### L 500.4050, L500.4100 #### [facility] [address] [place], [address] Calcium [Mass/Vol] 9.5 mg/dL Normal 7.6-11.0 [facility] Comment on above: Performed By: #### L 500.4050, L500.4100 #### [facility] [address] [place], [address] Chloride [Moles/Vol] 103 mmol/L Normal 98-108 [facility] Comment on above: Performed By: #### L 500.4050, L500.4100 #### [facility] [address] [place], [address] CO2 [Moles/Vol] 25.9 mmol/L Normal 21.0-32.0 [facility] Comment on above: Performed By: #### L 500.4050, L500.4100 #### [facility] [address] [place], [address] Creatinine [Mass/Vol] 0.98 mg/dL Normal 0.70-1.20 [facility] Comment on above: Performed By: #### L 500.4050, L500.4100 #### [facility] [address] [place], [address] GAP 10 Normal 5-15 [facility] Comment on above: Performed By: #### L 500.4050, L500.4100 #### [facility] [address] [place], [address] GFR/1.73 sq M.predicted among non-blacks MDRD (S/P/Bld) [Vol rate/Area] 80 mL/min/{1.73_m2} Normal >60 [facility] Comment on above: Result Comment: mL/m in/1.73m2 CKD-EPI Creatinine Equation (2020) Performed By: #### L 500.4050, L500.4100 #### [facility] [address] [place], [address] Globulin (S) [Mass/Vol] 2.9 g/dL Normal 2.2-4.2 [facility] Comment on above: Performed By: #### L 500.4050, L500.4100 #### [facility] [address] [place], [address] Glucose [Mass/Vol] 156 mg/dL High 70-99 [facility] Comment on above: Performed By: #### L 500.4050, L500.4100 #### [facility] [address] [place], [address] Potassium [Moles/Vol] 4.8 mmol/L Normal 3.3-5.1 [facility] Comment on above: Performed By: #### L 500.4050, L500.4100 #### [facility] [address] [place], [address] Sodium [Moles/Vol] 139 mmol/L Normal 133-145 [facility] Comment on above: Performed By: #### L 500.4050, L500.4100 #### [facility] [address] [place], [address] T PROT 7.2 g/dL Normal 5.9-8.4 [facility] Comment on above: Performed By: #### L 500.4050, L500.4100 #### [facility] [address] [place], [address] Urea nitrogen [Mass/Vol] 16 mg/dL Normal 4-19 [facility] Comment on above: Performed By: #### L 500.4050, L500.4100 #### [facility] [address] [place], [address] GFR/1.73 sq M.predicted christiano g non-blacks MDRD (S/P/Bld) [Vol rate/Area]Ordered By: Rod Maravilla on 12-11-2024 Estimated GFR (MDRD) Non-Af Amer 80 >60 [facility] Comment on above: mL/min/1.73m2 CKD-EP I Creatinine Equation (2020) Glomerular filtration rate ( GFR) estimation/1.73 sq m using serum, plasma, or whole bOrdered By: Rod Maravilla on 12-11-2024 GFR/1.73 sq M.predicted among non-blacks MDRD (S/P/Bld) [Vol rate/Area] 80 mL/min/{1.73_m2} >60 [facility] Comment on above: mL/min/1.73m2 CKD-EP I Creatinine Equation (2020) LDL calc ser/plasOrdered By: Rod Maravilla on 12-11-2024 Cholesterol in LDL [Mass/Vol] 65 mg/dL [facility] Comment on above: Xxfyiwofpy=546-876 m g/dL & Higher Dewf=081 mg/dL or greater LDL Cholesterol, Calculated 65 mg/dL [facility] Comment on above: Ebjvopnwgk=658-727 m g/dL & Higher Onwx=312 mg/dL or greater Laboratory - Chemistry and C hemistry - challengeOrdered By: Rod Maravilla on 12-11-2024 AST [Catalytic activity/Vol] 23 U/L <38 [facility] Lipid Profileon 12-11-2024 CHOL:HDL 2.94 Normal [facility] Comment on above: Performed By: #### L 500.4050, L500.4100 #### [facility] [address] [place], [address] Cholesterol [Mass/Vol] 130 mg/dL Normal <=200 [facility] Comment on above: Result Comment: Chol esterol level, Desirable <200 mg/dL Borderline high cholesterol 200-239 mg/dL High cholesterol >=240 mg/dL Recommendations of the NCEP Adult Treatment Panel for the following risk-cutoff thresholds for the [place] Citizen population. Performed By: #### L 500.4050, L500.4100 #### [facility] [address] [place], [address] Cholesterol in HDL [Mass/Vol] 44 mg/dL Normal [facility] Comment on above: Result Comment: Kaylin onal Cholesterol Education Program (NCEP) guidelines: <40 mg/dL: Low HDL-cholesterol (major risk factor for CHD) >= 60 mg/dL: High HDL-cholesterol (negative risk factor for CHD) HDL-cholesterol is affected by a number of factors, e.g. smoking, exercise, hormones, sex and age. Performed By: #### L 500.4050, L500.4100 #### [facility] [address] [place], [address] Cholesterol in LDL [Mass/Vol] 65 mg/dL Normal [facility] Comment on above: Result Comment: Bord cskbwe=627-932 mg/dL Higher Ruqz=555 mg/dL or greater Performed By: #### L 500.4050, L500.4100 #### [facility] [address] [place], [address] Cholesterol in VLDL [Mass/Vol] 21 mg/dL Normal 5-40 [facility] Comment on above: Performed By: #### L 500.4050, L500.4100 #### [facility] [address] [place], [address] Triglyceride [Mass/Vol] 105 mg/dL Normal [facility] Comment on above: Result Comment: The drugs N-Acetylcysteine and Metamizole may falsely depress this assay. Normal range: <150 mg/dL Borderline High: 150-199 mg/dL High: 200-499 mg/dL Very High: >500 mg/dL Performed By: #### L 500.4050, L500.4100 #### [facility] [address] [place], [place], [address] Potassium (Unsp spec) [Mass/ Vol]Ordered By: Rod Maravilla on 12-11-2024 Potassium [Moles/Vol] 4.8 mmol/L 3.3-5.1 [facility] Potassium measurement (mass/ volume)Ordered By: Rod Maravilla on 12-11-2024 Potassium (Unsp spec) [Mass/Vol] 4.8 mmol/L 3.3-5.1 [facility] Screening total cholesterol/ high density lipoprotein (HDL) cholesterol ratioOrdered By: Rod Maravilla on 12-11-2024 Cholesterol.total/Peg sterol in HDL [Mass ratio] 2.94 {ratio} [facility] Serum creatinine measurement (mass/volume)Ordered By: Rod Maravilla on 12-11-2024 Creatinine [Mass/Vol] 0.98 mg/dL 0.70-1.20 [facility] Serum globulin measurementOr dered By: Rod Maravilla on 12-11-2024 Globulin (S) [Mass/Vol] 2.9 g/dL 2.2-4.2 [facility] Serum glucose measurement (m ass/volume)Ordered By: Rod Maravilla on 12-11-2024 Glucose [Mass/Vol] 156 mg/dL High 70-99 [facility] Serum or plasma alanine zeng otransferase (ALT) measurementOrdered By: Rod Maravilla on 12-11-2024 ALT [Catalytic activity/Vol] 17 U/L <47 [facility] Serum or plasma albumin tatum urement (mass/volume)Ordered By: Rod Maravilla on 12-11-2024 Albumin [Mass/Vol] 4.3 g/dL 3.4-4.8 [facility] Serum or plasma albumin/glob ulin mass ratioOrdered By: Rod Maravilla on 12-11-2024 Albumin/Globulin [Mass ratio] 1.5 {ratio} 0.9-2.4 [facility] Serum or plasma alkaline mike sphatase measurementOrdered By: Rod Maravilla on 12-11-2024 ALP [Catalytic activity/Vol] 94 U/L 40-129 [facility] Serum or plasma calcium tatum urement (mass/volume)Ordered By: Rod Maravilla on 12-11-2024 Calcium [Mass/Vol] 9.5 mg/dL 7.6-11.0 [facility] Serum or plasma cholesterol in HDL measurement (mass/volume)Ordered By: Rod Maravilla on 12-11-2024 Cholesterol in HDL [Mass/Vol] 44 mg/dL >40 [facility] Comment on above: National Cholesterol Education Program (NCEP) guidelines:<40 mg/dL: Low HDL-cholesterol (major risk factor for CHD)>= 60 mg/dL: High HDL-cholesterol (negative risk factor for CHD)HDL-cholesterol is affected by a number of factors, e.g. smoking, exercise, hormones, sex and age. Serum or plasma cholesterol measurement (mass/volume)Ordered By: Rod Maravilla on 12-11-2024 Cholesterol [Mass/Vol] 130 mg/dL <201 [facility] Comment on above: Cholesterol level, D esirable <200 mg/dLBorderline high cholesterol 200-239 mg/dLHigh cholesterol >=240 mg/dLRecommendations of the NCEP Adult Treatment Panel for the following risk-cutoff thresholds for the [place] Citizen population. Serum or plasma urea nitroge n measurement (mass/volume)Ordered By: Rod Maravilla on 12-11-2024 Urea nitrogen [Mass/Vol] 16 mg/dL 4-19 [facility] Sodium levelOrdered By: Elias Maravilla on 12-11-2024 Sodium [Moles/Vol] 139 mmol/L 133-145 [facility] Total proteinOrdered By: Lizandro Maravilla on 12-11-2024 Protein [Mass/Vol] 7.2 g/dL 5.9-8.4 [facility] Triglycerides measurementOrd ered By: Rod Maravilla on 12-11-2024 Triglyceride [Mass/Vol] 105 mg/dL <199 [facility] Comment on above: The drugs N-Acetylcy steine and Metamizole may falsely depress this assay. Normal range: <150 mg/dLBorderline High: 150-199 mg/dLHigh: 200-499 mg/dLVery High: >500 mg/dL CNOVon 12-05-2024 [facility] ----- ASCENCION WEIR ([id number]) 1950 M Date Time Provider Department 12/05/24 10:15 AM LISA QUNITANILLA [facility] [place] During your visit today, we recorded the following information about you: Temperature Pulse Respiration Blood pressure 97.9 degrees 73/minute 16/minute 128/70 Weight 92.8 kg Lisa Quintanilla MD 12/05/2024 11:44 AM Signed [facility] Subjective Ascencion Weir is a 74 [...] [M25.442] Order(s):XR HAND GENERAL 3V PA/LAT/OBL LEFT [[id number]] Order #: [id number] FUTURE Prescriptions as of 12/05/2024 - multivitamin [...] Scrotu*10/03/2006 07/04/2009 (more content not included)... Normal [facility] XR HAND 3V PA/LAT/OBL LTon 0 12-05-2024 [...] acute osseous injury. 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: [facility] Transcribe Date/Time: Dec 05 2024 10:55A Dictated by : JAVIER ROBISON MD This examination was interpreted and the report reviewed and electronically signed by: JAVIER ROBISON MD on Dec 05 2024 10:57AM EST [facility] Radiology Study observation (narrative) [facility] XR Hand - left PA and Latera l and ObliqueOrdered By: Ccf Provider on 12-05-2024 [facility] CNPNon 11-30-2024 LYDIA Telephone (KARI) ----- CARMELLAASCENCION Fay ([id number]) 1950 M Date Time Provider Department 11/30/24 AARON SOLORZANO During your visit today, we recorded the following information about you: Reyna Campbell RN 11/30/2024 12:58 PM Signed Received cardiology office visit notes from [facility], DOS 11/28/24 with Rod Maravilla MD. Placed cardiology office notes in Aaron Solorzano MD inbox to review. In the cardiology notes for [place] the following medication discrepancies were noted: They [...] medication on his list. Called patient at [phone] to clarify 1-3 above and add medications [...] Reason for Visit: Received Outside Medical Records [7500] Cmt: Cardiology Rod Maravilla MD 11/28/24 [facility] Prescriptions as of 12/03/2024 - multivitamin tablet [...] stenosis [I35.0] 05/31/2019 Coronary artery disease involving marshall malik*09/18/2020 Thrombocytopenia (HCC) [D69.6] 01/07/2023 Longstanding persistent atrial fibrillation (HC*01/07/2023 Peripheral arterial disease (HCC) [I73.9] 06/16/2023 Encounter Status:Closed by REYNA CAMPBELL on 12/03/24 Normal [facility] Cardiology Visit Reporton Cardiology Visit Report [facility] [address] [place] [address] OFFICE VISIT Date of Service: 11/28/24 MR#: [id number] Acct: [id number] Name: ASCENCION WEIR Rep #: [id number] : 1950 Provider: Dr. 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 Normal [facility] 11-19-2024 [facility] Telephone (KARI) ----- ASCENCION WEIR ([id number]) 1950 M Date Time Provider Department 11/19/24 AARON SOLORZANO During your visit today, we recorded the following information about you: Vernell Hernandez LPN 11/19/2024 3:41 PM Signed Received evaluation from [facility] physical therapy. Placed in provider's inbox for review. Route to [place] fax/scanning Allergies As of Date: 11/19/2024 Noted Allergy Reaction ENTEX PSE (PSEUDOEPHEDRINE-GUAIFE*1 10/12/2006 5 - Intolerance Comments: Patient states he does not have any allergies Date Reviewed: 11/08/2024 Reviewed by: Vernell Hernandez LPN - Fully Assessed Reason for Visit: Received Outside Medical Records [0370] Cmt: [facility] physical therapy Prescriptions as of 11/19/2024 - [...] stenosis [I35.0] 05/31/2019 Coronary artery disease involving marshall malik*09/18/2020 Thrombocytopenia (HCC) [D69.6] 01/07/2023 Longstanding persistent atrial fibrillation (HC*01/07/2023 Peripheral arterial disease (HCC) [I73.9] 06/16/2023 Encounter Status:Closed by VERNELL HERNANDEZ on 11/19/24 Normal [facility] Inital Evaluation (1) - PTon 11-16-2024 Inital Evaluation (1) - PT [facility] Physical Therapy [facility] [address] [place] [address] / REHABILITATION SERVICES INITIAL EVALUATION MR#: [id number] Acct: [id number] Name: ASCENCION WEIR Rep #: [id number] : 1950 74 From: Jean Claude Berman [...] to be FAXED BACK to us at [phone] for Medicare purposes. For Medicare only, by signing this I certify the plan of care. Please let me know if there are questions or concerns regarding this plan of care. Physician Signature: Date: _ 11/16/24 1552 CC: Dr. Mike Solorzano MD EB Signed Normal [facility] CNOVon 11-08-2024 [facility] Office Visit (FPWADS ) ----- CARMELLAASCENCION BRADFORD ([id number]) 1950 M Date Time Provider Department 11/08/24 [...] full and symmetrical. Data Reviewed Latest Ref [facility] 08/13/2024 Protein, Total 6.3 - 8.0 g/dL [...] reviewed the (more content not included)... [facility] 09[facility]14[facility] CNPN Telephone (FPWADS) ----- ASCENCION WEIR ([id number]) 1950 M Date Time Provider Department 09/14/24 [...] Person calling: self Call patient at: home [phone] (home) Was an appointment scheduled: No Closing statement: Results or non-symptom based questions: Thank you for calling [facility], your call will be returned within the next business day. Eduardo Anderson LPN 09/14/2024 2:40 PM Signed Call [...] any allergies Date Reviewed: 08/13/2024 Reviewed by: Eduardo Woodard LPN - Fully Assessed Reason for [...] stenosis [I35.0] 05/31/2019 Coronary artery disease involving marshall malik*09/18/2020 Thrombocytopenia (HCC) [D69.6] 01/07/2023 Longstanding persistent atrial fibrillation (HC*01/07/2023 Peripheral arterial disease (HCC) [I73.9] 06/16/2023 Encounter Status:Closed by VERNELL HERNANDEZ on 09/17/24 [facility] ASCENCION WEIR ([id number]) 1950 M Date Time Provider Department 08/15/24 [facility] During your visit today, we recorded the following information about you: Kelley Reynolds RN 08/15/2024 3:15 PM Signed Patient called and [...] remains slightly low as before Daxa Wing APRN.Eduardo Giang LPN 08/17/2024 11:25 AM Signed Patient not home. Will try back later Deneen Albrecht MA 09/03/2024 11:40 AM Signed Called number on file. No answer. Let it ring several times- no vm available. 3rd attempt to reach patient. 1st time was on 08/14/24 through results notes, 2nd was on 08/17/24, and now today. Closing encounter. Preston Vidhya Cano 09/03/2024 3:12 PM Signed Patient returned phone call. He saw the message on Likva from Daxa and he has no further questions. Allergies As of Date: 08/15/2024 Noted Allergy Reaction ENTEX PSE (PSEUDOEPHEDRINE-GUAIFE*1 10/12/2006 5 - Intolerance Comments: Patient states he does not have any allergies Date Reviewed: 08/13/2024 Reviewed by: Eduardo Woodard LPN - Fully Assessed Reason for Visit: Patient Question [8020] Prescriptions as of 09/03/2024 - gabapentin (NEURONTIN) [...] stenosis [I35.0] 05/31/2019 Coronary artery disease involving marshall malik*09/18/2020 Thrombocytopenia (HCC) [D69.6] 01/07/2023 Longstanding persistent atrial fibrillation (HC*01/07/2023 Peripheral arterial disease (HCC) [I73.9] 06/16/2023 Encounter Status:Closed by KELLEY REYNOLDS on 08/15/24 Normal [facility] ALBUMIN/CREATININE RATIO, UR INEon 08-13-2024 Albumin DL <= 20 mg/L (U) [Mass/Vol] 18.5 mg/L Normal [facility] Comment on above: Order Comment: Speci men Type: URINE SPECIMENOrdering Facility: [facility] Address: [address] [place] [address] Performed By: #### U ACR ####[facility] LABCLIA [id number] [place] [address] [place] Albumin/Creatinine (U) [Mass ratio] 49 mg/g High <30 [facility] Comment on above: Order Comment: Speci men Type: URINE SPECIMENOrdering Facility: [facility] Address: [address] [place] [address] Result Comment: Adul t Male and Female Nephrotic Criteria: <30 mg/g is considered normal to mildly increased 30-300 mg/g is considered moderately increased >300 mg/g is considered severely increased KDIGO. (2013). KDIGO 2012 Clinical Practice Guideline for the Evaluation and Management of Chronic Kidney Disease. Official Journal of the International Society of Nephrology, 3(1), 1-150. Performed By: #### U ACR ####[facility] LABCLIA [id number] [place] [address] [place] Creatinine (U) [Mass/Vol] 37.7 mg/dL Normal 20.0-300.0 [facility] Comment on above: Order Comment: Speci men Type: URINE SPECIMENOrdering Facility: [facility] Address: [address] [place] [address] Performed By: #### U ACR ####[facility] LABCLIA [id number] [place] [address] [place] CBC panel Auto (Bld)on 08-13 Erythrocyte distribution width (RBC) [Ratio] 12.4 % Normal 11.5-15.0 [facility] Comment on above: Order Comment: Speci men Type: BLOOD SPECIMENOrdering Facility: [facility] Address: [address] [place] [address] Performed By: #### 5 8410-2 ####[facility] LABCLIA [id number] [place] [address] [place] Hematocrit (Bld) [Volume fraction] 37.5 % Low 39.0-51.0 [facility] Comment on above: Order Comment: Speci men Type: BLOOD SPECIMENOrdering Facility: [facility] Address: [address] [place] [address] Performed By: #### 5 8410-2 ####[facility] LABCLIA [id number] [address] [place] Hemoglobin (Bld) [Mass/Vol] 12.7 g/dL Low 13.0-17.0 [facility] Comment on above: Order Comment: Speci men Type: BLOOD SPECIMENOrdering Facility: [facility] Address: [address] [place] [address] Performed By: #### 5 8410-2 ####[facility] LABIA [id number] [place] [address] [place] MCH (RBC) [Entitic mass] 30.0 pg Normal 26.0-34.0 [facility] Comment on above: Order Comment: Speci men Type: BLOOD SPECIMENOrdering Facility: [facility] Address: [address] [place] [address] Performed By: #### 5 8410-2 ####[facility] LABCLIA [id number] [place] [address] [place] MCHC (RBC) [Mass/Vol] 33.9 g/dL Normal 30.5-36.0 [facility] Comment on above: Order Comment: Speci men Type: BLOOD SPECIMENOrdering Facility: [facility] Address: [address] [place] [address] Performed By: #### 5 8410-2 ####[facility] [id number] [place] [address] [place] MCV (RBC) [Entitic vol] 88.4 fL Normal 80.0-100.0 C [facility] Comment on above: Order Comment: Speci men Type: BLOOD SPECIMENOrdering Facility: [facility] Address: [address] [place] [address] Performed By: #### 5 8410-2 ####[facility] [id number] [place] [address] [place] Nucleated RBC (Bld) [#/Vol] 10*3/uL Normal <0.01 [facility] Comment on above: Order Comment: Speci men Type: BLOOD SPECIMENOrdering Facility: [facility] Address: [address] [place] [address] Performed By: #### 5 8410-2 ####[facility] [id number] [place] [address] [place] Platelet mean volume (Bld) [Entitic vol] 9.9 fL Normal 9.0-12.7 [facility] Comment on above: Order Comment: Speci men Type: BLOOD SPECIMENOrdering Facility: [facility] Address: [address] [place] [address] Performed By: #### 5 8410-2 ####[facility] LABIA [id number] [place] [address] [place] Platelets (Bld) [#/Vol] 197 10*3/uL Normal 150-400 [facility] Comment on above: Order Comment: Speci men Type: BLOOD SPECIMENOrdering Facility: [facility] Address: [address] [place] [address] Performed By: #### 5 8410-2 ####[facility] LABCLIA [id number] [place] [address] [place] RBC (Bld) [#/Vol] 4.24 10*6/uL Normal 4.20-6.00 [facility] Comment on above: Order Comment: Speci men Type: BLOOD SPECIMENOrdering Facility: [facility] Address: [address] [place] [address] Performed By: #### 5 8410-2 ####[facility] LABIA [id number] [place] [address] [place] WBC (Bld) [#/Vol] 6.03 10*3/uL Normal 3.70-11.00 [facility] Comment on above: Order Comment: Speci men Type: BLOOD SPECIMENOrdering Facility: [facility] Address: [address] [place] [address] Performed By: #### 5 8410-2 ####[facility] LABIA [id number] [place] [address] [place] CNOVon 08-13-2024 CNOV Office Visit (FPWADS ) ----- ASCENCION WEIR ([id number]) 1950 M Date Time Provider Department 08/13/24 2:00 PM DAXA WING FPSAE During your visit today, we recorded the following information about you: Pulse Blood pressure Weight 76/minute 130/56 89 kg Daxa Wing APRN.DOUBLE CUTTER 08/13/2024 2:47 PM Signed This note was created using Talkwheelriter. Subjective Ascencion Weir is a 73 year old male. Patient here for [facility] follow-up. DMII: A1C today 5.9%. 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 Thrasher with Kneecap CARDIAC CATH 03/18/2020 [facility] I/D PERIANAL ABSCESS, SUPERFICIAL 08/13/08 PAST SURGICAL [...] Mother other ([place]) Mother Asthma Father other ([place]) Father No Known Problems Daughter No Known [...] - LIP (more content not included)... Normal [facility] metabolic 2000 panelon 08-13-2024 Albumin [Mass/Vol] 4.4 g/dL Normal 3.9-4.9 [facility] Comment on above: Order Comment: Speci men Type: BLOOD SPECIMENOrdering Facility: [facility] Address: [address] [place] [address] Performed By: #### 2 4323-8, 31917-5 ####[facility] LABCLIA [id number] [place] [address] [place] ALP [Catalytic activity/Vol] 93 U/L Normal 38-113 [facility] Comment on above: Order Comment: Speci men Type: BLOOD SPECIMENOrdering Facility: [facility] Address: [address] [place] [address] Performed By: #### 2 4323-8, 24841-8 ####[facility] LABCLIA [id number] [place] [address] [place] ALT [Catalytic activity/Vol] 14 U/L Normal 10-54 [facility] Comment on above: Order Comment: Speci men Type: BLOOD SPECIMENOrdering Facility: [facility] Address: [address] [place] [address] Performed By: #### 2 4323-8, 16086-8 ####[facility] LABCLIA [id number] [place] [address] [place] Anion gap [Moles/Vol] 12 mmol/L Normal 8-15 [facility] Comment on above: Order Comment: Speci men Type: BLOOD SPECIMENOrdering Facility: [facility] Address: [address] [place] [address] Performed By: #### 2 4323-8, 96276-8 ####[facility] LABCLIA [id number] [place] [address] [place] AST [Catalytic activity/Vol] 20 U/L Normal 14-40 [facility] Comment on above: Order Comment: Speci men Type: BLOOD SPECIMENOrdering Facility: [facility] Address: [address] [place] [address] Performed By: #### 2 4323-8, 49926-8 ####[facility] LABCLIA [id number] [place] [address] [place] Bilirubin [Mass/Vol] 0.2 mg/dL Normal 0.2-1.3 [facility] Comment on above: Order Comment: Speci men Type: BLOOD SPECIMENOrdering Facility: [facility] Address: [address] [place] [address] Performed By: #### 2 4323-8, 41383-9 ####[facility] LABCLIA [id number] [place] [address] [place] Calcium [Mass/Vol] 9.3 mg/dL Normal 8.5-10.2 [facility] Comment on above: Order Comment: Speci men Type: BLOOD SPECIMENOrdering Facility: [facility] Address: [address] [place] [address] Performed By: #### 2 4323-8, 31196-6 ####[facility] LABCLIA [id number] [place] [address] [place] Chloride [Moles/Vol] 97 mmol/L Low 98-107 [facility] Comment on above: Order Comment: Speci men Type: BLOOD SPECIMENOrdering Facility: [facility] Address: [address] [place] [address] Performed By: #### 2 4323-8, 38583-9 ####[facility] LABCLIA [id number] [place] [address] [place] CO2 [Moles/Vol] 24 mmol/L Normal 22-30 [facility] Comment on above: Order Comment: Speci men Type: BLOOD SPECIMENOrdering Facility: [facility] Address: [address] [place] [address] Performed By: #### 2 4323-8, 37885-8 ####[facility] LABCLIA [id number] [place] [address] [place] Creatinine [Mass/Vol] 0.93 mg/dL Normal 0.73-1.22 [facility] Comment on above: Order Comment: Jazmyn rivero Type: BLOOD SPECIMENOrdering Facility: [facility] Address: [address] [place] [address] Performed By: #### 2 4323-8, 26813-0 ####[facility] LABCLIA [id number] [place] [address] [place] Creatinine and Glomerular filtration rate.predicted panel (S/P/Bld) 86 mL/min/1.73m??? Normal >=60 [facility] Comment on above: Order Comment: Jazmyn rivero Type: BLOOD SPECIMENOrdering Facility: [facility] Address: [address] [place] [address] Result Comment: Jayde mated Glomerular Filtration Rate [...] actual GFR. Performed By: #### 2 4323-8, 53160-5 ####[facility] LABCLIA [id number] [place] [address] [place] Glucose [Mass/Vol] 95 mg/dL Normal 74-99 [facility] Comment on above: Order Comment: Jazmyn rivreo Type: BLOOD SPECIMENOrdering Facility: [facility] Address: [address] [place] [address] Result Comment: The [place] Diabetes Association (ADA) provides guidance for cutoff [...] Standards of Medical Care in Diabetes 2016, [place] Diabetes Association. Diabetes Care. 2016.39(Suppl 1). Performed By: #### 2 4323-8, 44297-6 ####[facility] LABCLIA [id number] [place] [address] [place] Potassium [Moles/Vol] 4.8 mmol/L Normal 3.7-5.1 [facility] Comment on above: Order Comment: Speci men Type: BLOOD SPECIMENOrdering Facility: [facility] Address: [address] [place] [address] Performed By: #### 2 4323-8, 86899-7 ####[facility] LABCLIA [id number] [place] [address] [place] Protein [Mass/Vol] 7.3 g/dL Normal 6.3-8.0 [facility] Comment on above: Order Comment: Speci men Type: BLOOD SPECIMENOrdering Facility: [facility] Address: [address] [place] [address] Performed By: #### 2 4323-8, 27226-5 ####[facility] LABIA [id number] [place] [address] [place] Sodium [Moles/Vol] 133 mmol/L Low 136-144 [facility] Comment on above: Order Comment: Speci men Type: BLOOD SPECIMENOrdering Facility: [facility] Address: [address] [place] [address] Performed By: #### 2 4323-8, 09801-5 ####[facility] LABCLIA [id number] [place] [id number] [place] Urea nitrogen [Mass/Vol] 17 mg/dL Normal 9-24 [facility] Comment on above: Order Comment: Speci men Type: BLOOD SPECIMENOrdering Facility: [facility] Address: [address] [place] [id number] Performed By: #### 2 4323-8, 56270-7 ####[facility] LABCLIA [id number] [address] [address] [place] HEMOGLOBIN A1C (POC)on 08-13 HbA1c (Bld) [Mass fraction] 5.9 % Abnormal 4.3 - 5.6 % [facility] Comment on above: Location:[facility], [address] [place] [address], [facility] Point of care (POC) Hemoglobin A1c (HGBA1C) [...] specific diabetes management situations: The POC device kiln maintenance provides a normal range of 4.2% to 6.5% for the HGBA1C POC test. However, the [place] Diabetes Association guidelines indicate that patients with [...] Interpretation and review of laboratory results Abnormal [facility] Lipid 1996 panelon 4 Cholesterol [Mass/Vol] 119 mg/dL Normal <200 [facility] Comment on above: Order Comment: Speci men Type: BLOOD SPECIMENOrdering Facility: [facility] Address: [address] [place] [address] Result Comment: <200 mg/dL, Desirable 200-239 mg/dL, Borderline high >239 mg/dL, High Performed By: #### 2 4323-8, 65931-7 ####[facility] LABCLIA [id number] [address] [address] [place] Cholesterol in HDL [Mass/Vol] 38 mg/dL Low >39 [facility] Comment on above: Order Comment: Joezee rivero Type: BLOOD SPECIMENOrdering Facility: [facility] Address: [address] [place] [address] Result Comment: 40-5 9 mg/dL, Acceptable >59 mg/dL, High: Negative risk factor for coronary heart disease <40 mg/dL, Low: Positive risk factor for coronary heart disease Performed By: #### 2 4323-8, 46403-2 ####[facility] LABCLIA [id number] [address] OF [facility] Cholesterol in LDL [Mass/Vol] 65 mg/dL Normal <100 [facility] Comment on above: Order Comment: Jazmyn josefa Type: BLOOD SPECIMENOrdering Facility: [facility] Address: [address] [place] [address] Result Comment: <100 mg/dL, Optimal 100-129 mg/dL, Near optimal/above optimal 130-159 mg/dL, Borderline high 160-189 mg/dL, High >189 mg/dL, Very high Secondary prevention optimal LDL Cholesterol levels are recommended to be < 70 mg/dL Performed By: #### 2 4323-8, 08355-0 ####[facility] LABCLIA [id number] [address] Cholesterol in LDL/Cholesterol in HDL [Mass ratio] 1.71 {ratio} Normal <2.54 [facility] Comment on above: Order Comment: Jazmyn rivero Type: BLOOD SPECIMENOrdering Facility: [facility] Address: [address] [place] [address] Result Comment: Refe rence: 1. National Cholesterol Education Program ATP III Guideline At-A-Glance Quick Desk Reference: National Heart, Lung, and Blood [place]. National Institutes of Health. 2001: NIH Publication No. 01-3305. 2. An International Atherosclerosis Society position paper: global recommendations for the management of dyslipidemia: executive summary, Atherosclerosis. 2014: 232(2):410-413. Performed By: #### 2 4323-8, 84721-9 ####[facility] LABCLIA [id number] [address] [address] [place] Cholesterol in VLDL [Mass/Vol] 16 mg/dL Normal <30 [facility] Comment on above: Order Comment: Speci men Type: BLOOD SPECIMENOrdering Facility: [facility] Address: [address] [place] [address] Performed By: #### 2 4323-8, 54659-9 ####[facility] LABCLIA [id number] [place] [address] [place] Cholesterol non HDL [Mass/Vol] 81 mg/dL Normal <130 [facility] Comment on above: Order Comment: Speci men Type: BLOOD SPECIMENOrdering Facility: [facility] Address: [address] [place] [address] Result Comment: <130 mg/dL, Optimal 130-159 mg/dL, Near optimal/above optimal 160-189 mg/dL, Borderline high 190-219 mg/dL, High >219 mg/dL, Very high Secondary prevention optimal non HDL Cholesterol levels are recommended to be <100 mg/dL Performed By: #### 2 4323-8, 24928-9 ####[facility] LABIA [id number] [place] [address] [place] Cholesterol.total/Peg sterol in HDL [Mass ratio] 3.13 {ratio} Normal <5.10 [facility] Comment on above: Order Comment: Speci men Type: BLOOD SPECIMENOrdering Facility: [facility] Address: [address] [place] [address] Performed By: #### 2 4323-8, 29383-8 ####[facility] LABCLIA [id number] [place] [address] [place] FASTING TIME unknown Normal [facility] Comment on above: Order Comment: Speci men Type: BLOOD SPECIMENOrdering Facility: [facility] Address: [address] [place] [address] Performed By: #### 2 4323-8, 55801-4 ####[facility] LABCLIA [id number] [place] [address] [place] Triglyceride [Mass/Vol] 81 mg/dL Normal <150 [facility] Comment on above: Order Comment: Speci men Type: BLOOD SPECIMENOrdering Facility: [facility] Address: [address] [place] [address] Result Comment: <150 mg/dL, Normal 150-199 mg/dL, Borderline high 200-499 mg/dL, High >499 mg/dL, Very high Performed By: #### 2 4323-8, 15052-8 ####[facility] LABIA [id number] [address] [place] CNPTierney 08-09-2024 CNPN Telephone (FAMPTW) ----- [facility] ([id number]) 1950 M Date Time Provider Department 08/09/24 AARON SOLORZANO During your visit today, we recorded the following information about you: Aimee Almanza 08/09/2024 11:19 AM Signed [facility] is calling Aaron Solorzano MD today to request medication not on current med list Insulin detemir units-100 Levemir 110 unit/mL injection Drug Walsh [place] on [address] Patient has been identified by name and birthdate. Duration of symptoms: N/A Person calling: self Call patient at: at home [phone] (home) Was an appointment scheduled: No Closing statement: Results or non-symptom based questions: Thank you for calling [facility], your call will be returned within the next business day. Aimee Eubanks [facility] Vernell Hernandez LPN 08/09/2024 11:30 AM Signed Rx pended please advise Daxa Wing, ARIADNE.DOUBLE CUTTER 08/09/2024 12:29 PM Signed This medication was [...] Z79.4] Essential hypertension, benign [I10] Order(s):HEMOGLOBIN A1C [RQREO3L] Order #: [id number] FUTURE COMPLETE BLOOD COUNT [SQCBC] Order #: [id number] FUTURE COMPREHENSIVE METABOLIC PANEL [SQCMP] Order #: [id number] FUTURE ALBUMIN/CREATININE RATIO, URINE [SQUACR] Order #: [id number] FUTURE LIPID PANEL BASIC [SQLIPB] Order #: [id number] FUTURE Prescriptions as of 08/09/2024 - traMADol [...] Buttock pain (more content not included)... Normal [facility] CNPNon 05-31-2024 NATHANAELN Telephone ([place]) ----- [facility] ([id number]) 1950 M Date Time Provider Department 05/31/24 AARON SOLORZANO During your visit today, we recorded the following information about you: Vernell Hernandez LPN 05/31/2024 2:42 PM Signed Received visit summary from [facility]. Placed in provider's inbox for review. Route to [place] scanning Allergies As of Date: 05/31/2024 Noted Allergy Reaction ENTEX PSE (PSEUDOEPHEDRINE-GUAIFE*1 10/12/2006 5 - Intolerance Comments: Patient states he does not have any allergies Date Reviewed: 05/19/2024 Reviewed by: Nirlai Monahan MA - Fully Assessed Reason for Visit: Received Outside Medical Records [8255] Cmt: [facility] [place] [facility] Prescriptions as of 05/31/2024 - [...] stenosis [I35.0] 05/31/2019 Coronary artery disease involving marshall malik*09/18/2020 Thrombocytopenia (HCC) [D69.6] 01/07/2023 Longstanding persistent atrial fibrillation (HC*01/07/2023 Peripheral arterial disease (HCC) [I73.9] 06/16/2023 Encounter Status:Closed by VERNELL HERNANDEZ on 05/31/24 Normal [facility] Cardiology Visit Reporton Cardiology Visit Report [facility] [address] [place], [place] [address] OFFICE VISIT Date of Service: 05/31/24 MR#: [id number] Acct: [id number] Name: [facility] Rep #: [id number] : 1950 Provider: Dr. Rod Maravilla MD Age/Sex: 73/M Location: [facility] Status: Signed 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 Normal [facility] 05-19-2024 [facility] Office Visit (UCWSTR ) ----- [facility] WE[facility] ([id number]) 1950 M Date Time Provider Department 05/19/24 10:30 AM LISA QUINTANILLA [facility] During your visit today, we recorded the [...] tablet Good (more content not included)... [facility] ([id number]) 1950 M Date Time Provider Department 04/21/23 [...] stenosis [I35.0] 05/31/2019 Coronary artery disease involving marshall malik*09/18/2020 Thrombocytopenia (HCC) [D69.6] 01/07/2023 Longstanding persistent atrial fibrillation (HC*01/07/2023 Encounter Status:Closed by MUNIRA SOLORZANO on 04/21/23 [facility] Absolute lymphocyte countOrd ered By: Dr. Correia on 02-05-2023 Lymphocytes Auto (Unsp spec) [#/Vol] 1.40 10*3/uL 0.83-4.51 [facility] Basophil percentageOrdered B y: Dr. Correia on 02-05-2023 Basophils/100 WBC (Bld) 0.6 % 0-1 [facility] Chloride [Moles/Vol] 99 mmol/L 98-107 [facility] Eosinophils/100 WBC (Bld) 3.1 % 0-5 [facility] Glucose [Mass/Vol] 96 mg/dL 74-106 [facility] Neutrophils (Bld) [#/Vol] 3.8 10*3/uL 2.0-7.7 [facility] Neutrophils/100 WBC (Bld) 62.0 % 47-70 [facility] Potassium [Moles/Vol] 5.0 mmol/L 3.5-5.1 [facility] Comment on above: Moderate Hemolysis, Result may be falsely increased. Sodium [Moles/Vol] 131 mmol/L 136-145 [facility] WBC (Bld) [#/Vol] 6.2 10*3/uL 4.4-11.0 [facility] Blood erythrocytes count (nu mber/volume)Ordered By: Dr. Correia on 02-05-2023 RBC (Bld) [#/Vol] 4.29 10*6/uL 4.6-6.2 [facility] Blood hemoglobin measurement (mass/volume)Ordered By: Dr. Correia on 02-05-2023 Hemoglobin (Bld) [Mass/Vol] 13.0 g/dL 13.0-16.5 [facility] Blood lymphocytes/100 leukoc ytesOrdered By: Dr. Correia on 02-05-2023 Lymphocytes/100 WBC (Bld) 22.7 % 19-41 [facility] Blood monocytes/100 leukocyt esOrdered By: Dr. Correia on 02-05-2023 Monocytes/100 WBC (Bld) 11.3 % 0-10 [facility] Blood platelet mean volumeOr dered By: Dr. Correia on 02-05-2023 Platelet mean volume (Bld) [Entitic vol] 8.9 fL 6.2-12.0 [facility] Determination of erythrocyte mean corpuscular volume (MCV)Ordered By: Dr. Correia on 02-05-2023 MCV (RBC) [Entitic vol] 88.1 fL 80-94 [facility] Hematocrit Auto (Bld) [Volum e fraction]Ordered By: Dr. Correia on 02-05-2023 Hematocrit (Bld) [Volume fraction] 37.8 % 40-54 [facility] Laboratory - Chemistry and C hemistry - challengeOrdered By: Dr. Correia on 02-05-2023 CO2 [Moles/Vol] 26.0 mmol/L 21.0-32.0 [facility] Urea nitrogen/Creatinine [Mass ratio] 17.7 mg/mg 10-20 [facility] Laboratory - Hematology and Cell countsOrdered By: Dr. Correia on 02-05-2023 Erythrocyte distribution width (RBC) [Entitic vol] 39.3 fL 35.1-43.9 [facility] Erythrocyte distribution width (RBC) [Ratio] 12.3 % 11.6-14.6 [facility] Immature granulocytes/100 WBC (Bld) 0.300 % 0.0-0.9 [facility] Comment on above: IG% - Immature Granu locytes (promyelocytes, myelocytes and metamyelocytes) > 1% indicates that a LEFT SHIFT is Present. MCH (RBC) [Entitic mass] 30.3 pg 27.0-32.0 [facility] Nucleated RBC/100 WBC (Bld) [Ratio] 0 % 0-5 [facility] MCHC Auto (RBC) [Mass/Vol]Or dered By: Dr. Correia on 02-05-2023 MCHC (RBC) [Mass/Vol] 34.4 g/dL 32-36 [facility] No Panel InformationOrdered By: Dr. Correia on 02-05-2023 D-Dimer Quantitative (PE/DVT) 0.66 FEU/ug/m 0.27-0.49 [facility] Comment on above: CRITICAL VALUE VERIF IED. CALLED TO LISA TORRES RN ED02/05/23 1531 Nabor Vazquez.RESULTS READ BACK BY SAME . D-Dimer ELEVATED (>0.49): Additional studies and clinicalassessments are indicated to conclude diagnosis of:Deep Vein Thrombosis (DVT) or Pulmonary Embolism (PE) Estimated Creatinine Clearance Calc 65.31 ml/min [facility] Estimated GFR (MDRD) Amer 98 mL/min >60 [facility] Comment on above: GFR Calc Estimated GFR (MDRD) Non-Af Amer 81 mL/min >60 [facility] Comment on above: Non- GFR Calc Platelets bldOrdered By: Dr. Correia on 02-05-2023 Platelets (Bld) [#/Vol] 192 10*3/uL 150-450 [facility] Serum or plasma calcium tatum urement (mass/volume)Ordered By: Dr. Coreria on 02-05-2023 Calcium [Mass/Vol] 9.1 mg/dL 8.5-10.1 [facility] Serum or plasma creatinine m easurement (mass/volume)Ordered By: Dr. Correia on 02-05-2023 Creatinine [Mass/Vol] 0.96 mg/dL 0.70-1.30 [facility] Comment on above: The validity of the calculated GFR & GFRAA in patients over 70 years has not been determined. Clinical correlation is essential. Serum or plasma urea nitroge n measurement (mass/volume)Ordered By: Dr. Correia on 02-05-2023 Urea nitrogen [Mass/Vol] 17 mg/dL 7-18 [facility] Thin prep Papanicolaou smear with manual screeningOrdered By: Dr. Correia on 02-05-2023 Thin prep Papanicolaou smear with manual screening 6 5-15 [facility] CNCOon 02-03-2023 CNCO Letter Text Normal [facility] Absolute lymphocyte counton 07-19-2022 Lymphocytes Auto (Unsp spec) [#/Vol] 2.23 10*3/uL 0.83-4.51 [facility] Work Phone: Basophil percentageon 2021 Basophils/100 WBC (Bld) 1.0 % 0-1 [facility] Work Phone: Chloride [Moles/Vol] 101 mmol/L 98-107 [facility] Work Phone: Eosinophils/100 WBC (Bld) 4.1 % 0-5 [facility] Work Phone: Glucose [Mass/Vol] 112 mg/dL 74-106 [facility] Work Phone: Comment on above: Fasting Glucose resu lt from 100 to 125 mg/dL suggests IMPAIRED HOMEOSTASIS per A.D.A. criteria. Neutrophils (Bld) [#/Vol] 3.8 10*3/uL 2.0-7.7 [facility] Work Phone: Neutrophils/100 WBC (Bld) 52.3 % 47-70 [facility] Work Phone: Potassium [Moles/Vol] 4.3 mmol/L 3.5-5.1 [facility] Work Phone: Sodium [Moles/Vol] 136 mmol/L 136-145 [facility] Work Phone: WBC (Bld) [#/Vol] 7.3 10*3/uL 4.4-11.0 [facility] Work Phone: [phone] Blood erythrocytes count (nu mber/volume)on 03-16-2022 RBC (Bld) [#/Vol] 4.63 10*6/uL 4.6-6.2 [facility] Work Phone: Blood hemoglobin measurement (mass/volume)on 03-16-2022 Hemoglobin (Bld) [Mass/Vol] 14.0 g/dL 13.0-16.5 [facility] Work Phone: Blood lymphocytes/100 leukoc yteson 03-16-2022 Lymphocytes/100 WBC (Bld) 30.5 % 19-41 [facility] Work Phone: Blood monocytes/100 leukocyt eson 03-16-2022 Monocytes/100 WBC (Bld) 11.7 % 0-10 [facility] Work Phone: Blood platelet mean volumeon 03-16-2022 Platelet mean volume (Bld) [Entitic vol] 9.5 fL 6.2-12.0 [facility] Work Phone: Determination of erythrocyte mean corpuscular volume (MCV)on 03-16-2022 MCV (RBC) [Entitic vol] 87.9 fL 80-94 [facility] Work Phone: Hematocrit Auto (Bld) [Volum e fraction]on 03-16-2022 Hematocrit (Bld) [Volume fraction] 40.7 % 40-54 [facility] Work Phone: Laboratory - Chemistry and C hemistry - challengeon 03-16-2022 CO2 [Moles/Vol] 27.0 mmol/L 21.0-32.0 [facility] Work Phone: Urea nitrogen/Creatinine [Mass ratio] 17.3 mg/mg 10-20 [facility] Work Phone: Laboratory - Hematology and Cell countson 03-16-2022 Erythrocyte distribution width (RBC) [Entitic vol] 42.3 fL 35.1-43.9 [facility] Work Phone: Erythrocyte distribution width (RBC) [Ratio] 13.1 % 11.6-14.6 [facility] Work Phone: Immature granulocytes/100 WBC (Bld) 0.400 % 0.0-0.9 [facility] Work Phone: Comment on above: IG% - Immature Granu locytes (promyelocytes, myelocytes and metamyelocytes) > 1% indicates that a LEFT SHIFT is Present. MCH (RBC) [Entitic mass] 30.2 pg 27.0-32.0 [facility] Work Phone: Nucleated RBC/100 WBC (Bld) [Ratio] 0 % 0-5 [facility] Work Phone: MCHC Auto (RBC) [Mass/Vol]on 03-16-2022 MCHC (RBC) [Mass/Vol] 34.4 g/dL 32-36 [facility] Work Phone: No Panel Informationon 03-16 D-Dimer Quantitative (PE/DVT) 0.76 FEU/ug/m 0.27-0.49 [facility] Work Phone: Comment on above: D-Dimer ELEVATED (>0 .49): Additional studies and clinicalassessments are indicated to conclude diagnosis of:Deep Vein Thrombosis (DVT) or Pulmonary Embolism (PE)CRITICAL VALUE VERIFIED. CALLED TO CARL SIMPSON ED03/16/22 1006 Jennifer Lion.RESULTS READ BACK BY SAME . Estimated Creatinine Clearance Calc 61.20 ml/min [facility] Work Phone: Estimated GFR (MDRD) Amer 90 mL/min >60 [facility] Work Phone: Comment on above: GFR Calc Estimated GFR (MDRD) Non-Af Amer 74 mL/min >60 [facility] Work Phone: Comment on above: Non- GFR Calc Troponin I High Sensitivity 6 pg/mL 3.0-78.0 [facility] Work Phone: Comment on above: Please Note: New Elisabet t Units and Gender Specific Reference Ranges. For more information see Policy Stat Procedure [place] High Sensitivity Troponin (TNIH) and attachments. Platelets bldon 03-16-2022 Platelets (Bld) [#/Vol] 187 10*3/uL 150-450 [facility] Work Phone: Serum or plasma calcium tatum urement (mass/volume)on 03-16-2022 Calcium [Mass/Vol] 9.4 mg/dL 8.5-10.1 [facility] Work Phone: Serum or plasma creatinine m easurement (mass/volume)on 03-16-2022 Creatinine [Mass/Vol] 1.04 mg/dL 0.70-1.30 [facility] Work Phone: Comment on above: The validity of the calculated GFR & GFRAA in patients over 70 years has not been determined. Clinical correlation is essential. Serum or plasma urea nitroge n measurement (mass/volume)on 03-16-2022 Urea nitrogen [Mass/Vol] 18 mg/dL 7-18 [facility] Work Phone: Thin prep Papanicolaou smear with manual screeningon 03-16-2022 Thin prep Papanicolaou smear with manual screening 8 5-15 [facility] Work Phone: .Auto Diffon 10-23-2021 Basophil, Absolute 0.00 10 3/mcL Normal 0.00-0.19 [facility] ([place]) Comment on above: Performed By: #### P RO, BMP, GFR, APTT, CBC, ADIFF, ANEU #### [address] [address] Basophils/100 WBC (Bld) 0.5 % Normal 0.0-2.5 [facility] ([place]) Comment on above: Performed By: #### P RO, BMP, GFR, APTT, CBC, ADIFF, ANEU #### [address] [address] Eosinophil, Absolute 0.10 10 3/mcL Normal 0.00-0.40 [facility] ([place]) Comment on above: Performed By: #### P RO, BMP, GFR, APTT, CBC, ADIFF, ANEU #### [address] [address] Eosinophils/100 WBC (Bld) 1.6 % Normal 0.0-7.0 [facility] ([place]) Comment on above: Performed By: #### P RO, BMP, GFR, APTT, CBC, ADIFF, ANEU #### [address] [address] Lymphocyte, Absolute 1.60 10 3/mcL Normal 0.77-3.85 [facility] ([place]) Comment on above: Performed By: #### P RO, BMP, GFR, APTT, CBC, ADIFF, ANEU #### [address] [address] Lymphocytes/100 WBC (Bld) 18.6 % Normal 10.0-50.0 [facility] ([place]) Comment on above: Performed By: #### P RO, BMP, GFR, APTT, CBC, ADIFF, ANEU #### [address] [address] Monocyte, Absolute 1.20 10 3/mcL High 0.15-1.00 [facility] ([place]) Comment on above: Performed By: #### P RO, BMP, GFR, APTT, CBC, ADIFF, ANEU #### [address] [address] Monocytes/100 WBC (Bld) 13.4 % High 1.7-13.0 [facility] ([place]) Comment on above: Performed By: #### P RO, BMP, GFR, APTT, CBC, ADIFF, ANEU #### [address] [address] Neutrophils/100 WBC (Bld) 65.9 % Normal 37.0-80.0 [facility] ([place]) Comment on above: Performed By: #### P RO, BMP, GFR, APTT, CBC, ADIFF, ANEU #### [address] [address] .GFRon 10-23-2021 GFR 90 ml/min/1.73sqm Normal [facility] ([place]) Comment on above: Result Comment: GFR Population [...] BMP, GFR, APTT, CBC, ADIFF, ANEU #### [address] [address] GFR Non- 74 ml/min/1.73sqm Normal [facility] ([place]) Comment on above: Result Comment: GFR Population [...] BMP, GFR, APTT, CBC, ADIFF, ANEU #### [address] [address] .NEUABSon 10-23-2021 Neutrophil, Absolute 5.70 10 3/mcL Normal 2.85-6.16 [facility] ([place]) Comment on above: Performed By: #### P RO, BMP, GFR, APTT, CBC, ADIFF, ANEU #### [address] [address] BMPon 10-23-2021 BUN/Creatinine Ratio 14 ratio Normal 7-27 [facility] ([place]) Comment on above: Performed By: #### P RO, BMP, GFR, APTT, CBC, ADIFF, ANEU #### [address] [address] Calcium [Mass/Vol] 8.9 mg/dL Normal 8.4-10.2 [facility] ([place]) Comment on above: Performed By: #### P RO, BMP, GFR, APTT, CBC, ADIFF, ANEU #### [address] [address] Chloride [Moles/Vol] 103 mmol/L Normal 98-107 [facility] ([place]) Comment on above: Performed By: #### P RO, BMP, GFR, APTT, CBC, ADIFF, ANEU #### [address] [address] CO2 [Moles/Vol] 28 mmol/L Normal 23-31 [facility] ([place]) Comment on above: Performed By: #### P RO, BMP, GFR, APTT, CBC, ADIFF, ANEU #### [address] [address] Creatinine [Mass/Vol] 0.99 mg/dL Normal 0.70-1.30 [facility] ([place]) Comment on above: Performed By: #### P RO, BMP, GFR, APTT, CBC, ADIFF, ANEU #### [address] [address] Electrolyte Balance 9.0 mEq/L Normal 4.0-15.0 [facility] ([place]) Comment on above: Performed By: #### P RO, BMP, GFR, APTT, CBC, ADIFF, ANEU #### [address] [address] Glucose [Mass/Vol] 128 mg/dL High 83-110 [facility] ([place]) Comment on above: Performed By: #### P RO, BMP, GFR, APTT, CBC, ADIFF, ANEU #### [address] [address] Potassium [Moles/Vol] 4.8 mmol/L Normal 3.5-5.1 [facility] ([place]) Comment on above: Performed By: #### P RO, BMP, GFR, APTT, CBC, ADIFF, ANEU #### [address] [address] Sodium [Moles/Vol] 140 mmol/L Normal 136-145 [facility] ([place]) Comment on above: Performed By: #### P RO, BMP, GFR, APTT, CBC, ADIFF, ANEU #### [place] [address] Urea nitrogen [Mass/Vol] 14 mg/dL Normal 7-18 [facility] ([place]) Comment on above: Performed By: #### P RO, BMP, GFR, APTT, CBC, ADIFF, ANEU #### [place] [id number] CBCon 10-23-2021 Erythrocyte distribution width (RBC) [Ratio] 13.8 % Normal 11.5-14.5 [facility] ([place]) Comment on above: Performed By: #### C BC, ADIFF, ANEU, BMP, GFR #### [place] [address] Hematocrit (Bld) [Volume fraction] 38.1 % Low 42.0-52.0 [facility] ([place]) Comment on above: Performed By: #### C BC, ADIFF, ANEU, BMP, GFR #### [place] [address] Hgb 13.1 G/dL Low 14.0-18.0 [facility] ([place]) Comment on above: Performed By: #### C BC, ADIFF, ANEU, BMP, GFR #### [place] [address] MCH (RBC) [Entitic mass] 30.8 pg Normal 27.0-31.2 [facility] ([place]) Comment on above: Performed By: #### C BC, ADIFF, ANEU, BMP, GFR #### [place] [address] MCHC 34.3 G/dL Normal 31.8-35.4 [facility] ([place]) Comment on above: Performed By: #### C BC, ADIFF, ANEU, BMP, GFR #### [place] [address] MCV (RBC) [Entitic vol] 89.8 fL Normal 80.0-94.0 [facility] ([place]) Comment on above: Performed By: #### C BC, ADIFF, ANEU, BMP, GFR #### [place] [address] [place], [place] [address] Platelet 196 10 3/mcL Normal 130-400 [facility] ([place]) Comment on above: Performed By: #### C BC, ADIFF, ANEU, BMP, GFR #### [address] [address] Platelet mean volume (Bld) [Entitic vol] 7.5 fL Normal 7.4-10.4 [facility] ([place]) Comment on above: Performed By: #### C BC, ADIFF, ANEU, BMP, GFR #### [place] [address] [place], [place] [address] RBC 4.24 10 6/mcL Normal 4.04-6.13 [facility] ([place]) Comment on above: Performed By: #### C BC, ADIFF, ANEU, BMP, GFR #### [address] [address] WBC 8.60 10 3/mcL Normal 4.60-10.80 [facility] ([place]) Comment on above: Performed By: #### C BC, ADIFF, ANEU, BMP, GFR #### [address] [address] LABORATORYOrdered By: Bucky Johansen on 10-23-2021 Blood Glucose Testing Reason Routine (10/23/21 11:32 AM) [facility] Work Phone: Glucose [Mass/Vol] 126 mg/dL Invalid Interpretation Code 82 - 115 mg/dL [facility] Work Phone: LABORATORYOrdered By: Syed Chester on 10-23-2021 Blood Glucose Testing Reason Routine (10/23/21 7:47 AM) [facility] Work Phone: Glucose [Mass/Vol] 120 mg/dL Invalid Interpretation Code 82 - 115 mg/dL [facility] Work Phone: LABORATORYOrdered By: Vivian Moncada on [...] Glucose Testing Reason Routine (10/22/21 8:13 PM) [facility] Work Phone: Glucose [Mass/Vol] 200 mg/dL Invalid Interpretation Code 82 - 115 mg/dL [facility] Work Phone: XR FLUORO > 2 HRS TECH TIMEo n 10-22-2021 XR FLUORO > 2 HRS TECH TIME ORIGINAL Images acquired, not reported on this accession number. Normal [facility]) XR CHEST 2 VIEWSon XR CHEST 2 VIEWS ORIGINAL EXAMINATION: TWO [...] 10:24:49 AM Ordering Provider: MIKE RAI Normal [facility] ([place]) .Auto Diffon 10-15-2021 Basophil, Absolute 0.00 10 3/mcL Normal 0.00-0.19 [facility]) Comment on above: Performed By: #### P RO, BMP, GFR, APTT, CBC, ADIFF, ANEU #### [address] [address] Basophils/100 WBC (Bld) 0.7 % Normal 0.0-2.5 [facility] ([place]) Comment on above: Performed By: #### P RO, BMP, GFR, APTT, CBC, ADIFF, ANEU #### [address] [address] Eosinophil, Absolute 0.10 10 3/mcL Normal 0.00-0.40 [facility] ([place]) Comment on above: Performed By: #### P RO, BMP, GFR, APTT, CBC, ADIFF, ANEU #### [address] [address] Eosinophils/100 WBC (Bld) 2.6 % Normal 0.0-7.0 [facility] ([place]) Comment on above: Performed By: #### P RO, BMP, GFR, APTT, CBC, ADIFF, ANEU #### [address] [address] Lymphocyte, Absolute 1.40 10 3/mcL Normal 0.77-3.85 [facility] ([place]) Comment on above: Performed By: #### P RO, BMP, GFR, APTT, CBC, ADIFF, ANEU #### [address] [address] Lymphocytes/100 WBC (Bld) 23.9 % Normal 10.0-50.0 [facility] ([place]) Comment on above: Performed By: #### P RO, BMP, GFR, APTT, CBC, ADIFF, ANEU #### [address] [address] Monocyte, Absolute 0.60 10 3/mcL Normal 0.15-1.00 [facility] ([place]) Comment on above: Performed By: #### P RO, BMP, GFR, APTT, CBC, ADIFF, ANEU #### [address] [address] Monocytes/100 WBC (Bld) 10.9 % Normal 1.7-13.0 [facility] ([place]) Comment on above: Performed By: #### P RO, BMP, GFR, APTT, CBC, ADIFF, ANEU #### [address] [address] Neutrophils/100 WBC (Bld) 61.9 % Normal 37.0-80.0 [facility] ([place]) Comment on above: Performed By: #### P RO, BMP, GFR, APTT, CBC, ADIFF, ANEU #### [address] [address] .GFRon 10-15-2021 GFR 92 ml/min/1.73sqm Normal [facility] ([place]) Comment on above: Result Comment: GFR Population [...] BMP, GFR, APTT, CBC, ADIFF, ANEU #### [address] [address] GFR Non- 76 ml/min/1.73sqm Normal [facility] ([place]) Comment on above: Result Comment: GFR Population [...] BMP, GFR, APTT, CBC, ADIFF, ANEU #### [address] [address] .NEUABSon 10-15-2021 Neutrophil, Absolute 3.50 10 3/mcL Normal 2.85-6.16 A [facility] ([place]) Comment on above: Performed By: #### P RO, BMP, GFR, APTT, CBC, ADIFF, ANEU #### [address] [address] APTTon 10-15-2021 aPTT Coag (Bld) [Time] 29.2 s Normal 24.8-33.3 [facility] ([place]) Comment on above: Result Comment: For Heparin anticoagulation therapy, the recommended therapeutic range is: 53.6-87.4 seconds (1.5 - 2.5 the normal plasma mean). Patients on heparin therapy may have an extreme result. Performed By: #### P RO, BMP, GFR, APTT, CBC, ADIFF, ANEU #### [address] [address] Heparin dose (APTT) Unknown Normal [facility] ([place]) Comment on above: Performed By: #### P RO, BMP, GFR, APTT, CBC, ADIFF, ANEU #### [address] [address] BMPon 10-15-2021 BUN/Creatinine Ratio 16 ratio Normal 7-27 [facility] Comment on above: Performed By: #### P RO, BMP, GFR, APTT, CBC, ADIFF, ANEU #### [address] [address] Calcium [Mass/Vol] 9.1 mg/dL Normal 8.4-10.2 [facility] ([place]) Comment on above: Performed By: #### P RO, BMP, GFR, APTT, CBC, ADIFF, ANEU #### [address] [address] Chloride [Moles/Vol] 101 mmol/L Normal 98-107 [facility] ([place]) Comment on above: Performed By: #### P RO, BMP, GFR, APTT, CBC, ADIFF, ANEU #### [address] [address] CO2 [Moles/Vol] 29 mmol/L Normal 23-31 [facility] ([place]) Comment on above: Performed By: #### P RO, BMP, GFR, APTT, CBC, ADIFF, ANEU #### [address] [address] Creatinine [Mass/Vol] 0.97 mg/dL Normal 0.70-1.30 [facility] ([place]) Comment on above: Performed By: #### P RO, BMP, GFR, APTT, CBC, ADIFF, ANEU #### [address] [address] Electrolyte Balance 10.0 mEq/L Normal 4.0-15.0 [facility] ([place]) Comment on above: Performed By: #### P RO, BMP, GFR, APTT, CBC, ADIFF, ANEU #### [address] [address] Glucose [Mass/Vol] 117 mg/dL High 83-110 [facility] ([place]) Comment on above: Performed By: #### P RO, BMP, GFR, APTT, CBC, ADIFF, ANEU #### [address] [address] Potassium [Moles/Vol] 4.5 mmol/L Normal 3.5-5.1 [facility] ([place]) Comment on above: Performed By: #### P RO, BMP, GFR, APTT, CBC, ADIFF, ANEU #### [address] [address] Sodium [Moles/Vol] 140 mmol/L Normal 136-145 [facility] ([place]) Comment on above: Performed By: #### P RO, BMP, GFR, APTT, CBC, ADIFF, ANEU #### [address] [address] Urea nitrogen [Mass/Vol] 16 mg/dL Normal 7-18 [facility] ([place]) Comment on above: Performed By: #### P RO, BMP, GFR, APTT, CBC, ADIFF, ANEU #### [address] [address] CBCon 10-15-2021 Erythrocyte distribution width (RBC) [Ratio] 13.6 % Normal 11.5-14.5 [facility] ([place]) Comment on above: Order Comment: Pre-A dmission Testing Performed By: #### P RO, BMP, GFR, APTT, CBC, ADIFF, ANEU #### [address] [address] Hematocrit (Bld) [Volume fraction] 38.8 % Low 42.0-52.0 [facility] ([place]) Comment on above: Order Comment: Pre-A dmission Testing Performed By: #### P RO, BMP, GFR, APTT, CBC, ADIFF, ANEU #### [address] [address] Hgb 13.5 G/dL Low 14.0-18.0 [facility] ([place]) Comment on above: Order Comment: Pre-A dmission Testing Performed By: #### P RO, BMP, GFR, APTT, CBC, ADIFF, ANEU #### [address] [address] MCH (RBC) [Entitic mass] 30.4 pg Normal 27.0-31.2 [facility] ([place]) Comment on above: Order Comment: Pre-A dmission Testing Performed By: #### P RO, BMP, GFR, APTT, CBC, ADIFF, ANEU #### [address] [address] MCHC 34.9 G/dL Normal 31.8-35.4 [facility] ([place]) Comment on above: Order Comment: Pre-A dmission Testing Performed By: #### P RO, BMP, GFR, APTT, CBC, ADIFF, ANEU #### [address] [address] MCV (RBC) [Entitic vol] 87.3 fL Normal 80.0-94.0 A [facility] ([place]) Comment on above: Order Comment: Pre-A dmission Testing Performed By: #### P RO, BMP, GFR, APTT, CBC, ADIFF, ANEU #### [address] [address] Platelet 199 10 3/mcL Normal 130-400 [facility] ([place]) Comment on above: Order Comment: Pre-A dmission Testing Performed By: #### P RO, BMP, GFR, APTT, CBC, ADIFF, ANEU #### [address] [address] Platelet mean volume (Bld) [Entitic vol] 8.0 fL Normal 7.4-10.4 [facility] ([place]) Comment on above: Order Comment: Pre-A dmission Testing Performed By: #### P RO, BMP, GFR, APTT, CBC, ADIFF, ANEU #### [place] [address] RBC 4.45 10 6/mcL Normal 4.04-6.13 [facility] ([place]) Comment on above: Order Comment: Pre-A dmission Testing Performed By: #### P RO, BMP, GFR, APTT, CBC, ADIFF, ANEU #### [place] [address] WBC 5.70 10 3/mcL Normal 4.60-10.80 [facility] ([place]) Comment on above: Order Comment: Pre-A dmission Testing Performed By: #### P RO, BMP, GFR, APTT, CBC, ADIFF, ANEU #### [address] [address] LABORATORYOrdered By: Keiry Camejo on 10-15-2021 aPTT [...] (PPP) [Relative time] 1.1 {INR} Normal 0.9-1.2 [facility] ([place]) Comment on above: Result Comment: Hayden dard [...] BMP, GFR, APTT, CBC, ADIFF, ANEU #### [place] [id number] PT Coag (PPP) [Time] 13.2 s Normal 9.7-14.3 [facility] ([place]) Comment on above: Performed By: #### P RO, BMP, GFR, APTT, CBC, ADIFF, ANEU #### [place] [address] [place], [place] [address] INR, POCon 07-04-2020 INR Coag (Bld) [Relative time] 2.8 High 0.9-1.1 [facility] Comment on above: Result Comment: Perf ormed by [employer] CLIA ID: [id number] [place], [place] Recommended Anticoagulant Therapy: See Below ----- [...] Performed By: #### Sandie G3, BMP3 #### [facility] [address] [place] [address] POC INRon 07-04-2020 INR Coag (Bld) [Relative time] 2.8 {INR} High [facility] [place], [place] Comment on above: Performed by [employer] CLIA ID: [id number] [place], [place] Recommended Anticoagulant Therapy: See Below ----- [...] Interpretation and review of laboratory results Abnormal [place] Basic Metabolic Panelon 10-0 Anion gap [Moles/Vol] 9 Normal [facility] Comment on above: Performed By: #### M G3, BMP3 #### [facility] [address] [place], [place] Calcium [Mass/Vol] 8.6 mg/dL Normal 8.4-10.4 [facility] Comment on above: Performed By: #### Sandie G3, BMP3 #### [facility] [address] [place], [place] CO2 [Moles/Vol] 25 mmol/L Normal 22-30 [facility] Comment on above: Performed By: #### M G3, BMP3 #### [facility] [address] [place], [place] Glucose [Mass/Vol] 186 mg/dL High 70-100 [facility] Comment on above: Performed By: #### M G3, BMP3 #### [place] [address] [address] [place] Urea nitrogen [Mass/Vol] 15 mg/dL Normal 7-20 [facility] Comment on above: Performed By: #### Sandie G3, BMP3 #### [place] [address] [address] [place] Creatinine [Mass/Vol] 1.01 mg/dL Normal 0.52-1.25 [facility] Comment on above: Performed By: #### M G3, BMP3 #### [place] [address] [address] [place] GFR/1.73 sq M predicted among blacks MDRD (S/P/Bld) [Vol rate/Area] 85.9 mL/min/{1.73_m2} Normal >60 [facility] Comment on above: Performed By: #### Sandie G3, BMP3 #### [facility] [address] [place] GFR/1.73 sq M predicted among non-blacks MDRD (S/P/Bld) [Vol rate/Area] 74.1 mL/min/{1.73_m2} Normal >60 [facility] Comment on above: Result Comment: KDIG [...] Performed By: #### Sandie Cobb BMP3 #### [facility] [address] [place] [address] Chloride [Moles/Vol] 101 mmol/L Normal 98-107 [facility] Comment on above: Performed By: #### Sandie Cobb, BMP3 #### [place] [address] [place] [address] Potassium [Moles/Vol] 4.1 mmol/L Normal 3.5-5.1 [facility] Comment on above: Performed By: #### Sandie Cobb BMP3 #### [facility] [address] [place] [address] Sodium [Moles/Vol] 136 mmol/L Normal 135-145 [facility] Comment on above: Performed By: #### Sandie G3, BMP3 #### [address] [address] Anion gap [Moles/Vol] 9 mmol/L [place], [place] Calcium [Mass/Vol] 8.6 mg/dL 8.4 - 10. 4 mg/dL [place] Chloride [Moles/Vol] 101 mmol/L 98 - 10 7 mmol/L [place] CO2 [Moles/Vol] 25 mmol/L 22 - 30 mmol/L [place] Creatinine [Mass/Vol] 1.01 mg/dL 0.52 - 1.25 mg/dL [place] EGFR IF NonAfrican [place] Citizen 74.1 mL/min >60 [place] Comment on above: KDIGO guidelines pro [...] MDRD (S/P/Bld) [Vol rate/Area] 85.9 mL/min/{1.73_m2} >60 [place] Glucose [Mass/Vol] 186 mg/dL High 70 - 100 mg/dL [place] Interpretation and review of laboratory results Abnormal [place] Potassium [Moles/Vol] 4.1 mmol/L 3.5 - 5.1 mmol/L [place] Sodium [Moles/Vol] 136 mmol/L 135 - 145 mmol/L [place] Urea nitrogen [Mass/Vol] 15 mg/dL 7 - 20 mg/dL [place] CBC Auto Differentialon 10-0 Absolute Baso # 0.1 10*3/uL 0 - 0.2 10*3/uL [place] Absolute Neut # 3.2 10*3/uL 1.8 - 7 10*3/uL [place] Basophils/100 WBC (Bld) 1.0 % 0 - 2 % M [place] Eosinophils (Bld) [#/Vol] 1.0 10*3/uL High 0 - 0.5 10*3/uL [place] Eosinophils/100 WBC (Bld) 16.6 % High 1 - 6 % [place] Erythrocyte distribution width (RBC) [Ratio] 13.9 % 11.5 - 14.5 % [place] Granulocytes/100 WBC (Bld) 53.4 % 40 - 80 % [place] Hematocrit (Bld) [Volume fraction] 29.3 % Low 40 - 52 % [place] Hemoglobin (Bld) [Mass/Vol] 10.2 g/dL Low 13 - 18 g/dL [place] Interpretation and review of laboratory results Abnormal [place] Lymphocytes (Bld) [#/Vol] 1.0 10*3/uL 1 - 4.3 10*3/uL [place] Lymphocytes/100 WBC (Bld) 16.2 % Low 20 - 40 % [place] MCH (RBC) [Entitic mass] 30.5 pg 26 - 34 pg [place] MCHC (RBC) [Mass/Vol] 35.0 % 32 - 36 % [place] MCV (RBC) [Entitic vol] 87.2 fL 80 - 98 fL [place] Monocytes (Bld) [#/Vol] 0.8 10*3/uL 0 - 0.8 10*3/uL [place] Monocytes/100 WBC (Bld) 12.8 % High 2 - 10 % [place] Platelet mean volume (Bld) [Entitic vol] 7.9 fL 7.4 - 10.4 fL [place] Platelets (Bld) [#/Vol] 185 10*3/uL 140 - 440 10*3/uL [place] RBC (Bld) [#/Vol] 3.35 10*6/uL Low 4.4 - 5.9 10*6/uL [place] WBC (Bld) [#/Vol] 6.0 10*3/uL 3.6 - 10.7 10*3/uL [place] Test Performed by [facility], [address] [place] [address] [place] Culture, Blood 1on 0 Blood Culture, Routine POSITIVE: Staphyl ococcus species (probable Coagulase negative Staph) DETECTED. POSITIVE: mecA (methicillin resistance gene) DETECTED. Presumptive identification performed using MasterImage 3D PCR methodology; confirmatory identification to follow. [employer] Blood Culture Identification PCR Panel can detect [...] Jessika krusei, Jessika parapsilosis, Jessika tropicalis Abnormal [place] Blood Culture, Routine Isolated: Contamination likely unless additional blood culture sets are found to be positive with the same organism. [place] Blood Culture, Routine Staphylococcus epidermidis Abnormal [place] Interpretation and review of laboratory results Abnormal [place] Test Performed by [facility], [address] [place] [address] Specimen Source Comment:Blood [place] Glucose,Bedsideon 06-02-2020 Glucose [Mass/Vol] 318 mg/dL High 70-100 [facility] Comment on above: Result Comment: Test performed by glucose meter. Results may be 10%-15% lower than serum/plasma values. (CLIA ID [id number]) Performed By: #### B MP3, PHOS3, HEMOG, PT/AP, MG3 #### [address] [address] Glucose [Mass/Vol] 173 mg/dL [facility] 70-100 [facility] Comment on above: Result Comment: Test performed by glucose meter. Results may be 10%-15% lower than serum/plasma values. (CLIA ID [id number]) Performed By: #### M G3, BMP3 #### [address] [address] Hemogram w/ Autodiffon 06-02 Abs Baso Cnt 0.1 10*3/uL Normal 0.0-0.2 [facility] Comment on above: Performed By: #### H EMDF #### [address] [address] Abs Neutrophile Cnt 3.2 10*3/uL Normal 1.8-7.0 [facility] Comment on above: Performed By: #### H EMDF #### [facility] [address] [place], [place] Basophils/100 WBC (Bld) 1.0 % Normal 0.0-2.0 [facility] Comment on above: Performed By: #### H EMDF #### [facility] [address] [place] Eosinophils (Bld) [#/Vol] 1.0 10*3/uL High 0.0-0.5 [facility] Comment on above: Performed By: #### H EMDF #### [facility] [address] [place] Eosinophils/100 WBC (Bld) 16.6 % High 1.0-6.0 [facility] Comment on above: Performed By: #### H EMDF #### [place] [address] [address] [place] Erythrocyte distribution width (RBC) [Ratio] 13.9 % Normal 11.5-14.5 [facility] Comment on above: Performed By: #### H EMDF #### [place] [address] [address] [place] Granulocytes/100 WBC (Bld) 53.4 % Normal 40.0-80.0 [facility] Comment on above: Performed By: #### H EMDF #### [facility] [address] [place] Hematocrit (Bld) [Volume fraction] 29.3 % Low 40.0-52.0 [facility] Comment on above: Performed By: #### H EMDF #### [place] [address] [address] [place] Hemoglobin (Bld) [Mass/Vol] 10.2 g/dL Low 13.0-18.0 [facility] Comment on above: Performed By: #### H EMDF #### [place] [address] [address] [place] Lymphocytes (Bld) [#/Vol] 1.0 10*3/uL Normal 1.0-4.3 [facility] Comment on above: Performed By: #### H EMDF #### [facility] [address] [place] Lymphocytes/100 WBC (Bld) 16.2 % Low 20.0-40.0 [facility] Comment on above: Performed By: #### H EMDF #### [facility] [address] [place] MCH (RBC) [Entitic mass] 30.5 pg Normal 26.0-34.0 [facility] Comment on above: Performed By: #### H EMDF #### [facility] [address] [place] MCHC (RBC) [Mass/Vol] 35.0 % Normal 32.0-36.0 [facility] Comment on above: Performed By: #### H EMDF #### [facility] [address] [place] MCV (RBC) [Entitic vol] 87.2 fL Normal 80.0-98.0 [facility] Comment on above: Performed By: #### H EMDF #### [facility] [address] [place] Monocytes (Bld) [#/Vol] 0.8 10*3/uL Normal 0.0-0.8 [facility] Comment on above: Performed By: #### H EMDF #### [facility] [address] [place] Monocytes/100 WBC (Bld) 12.8 % High 2.0-10.0 [facility] Comment on above: Performed By: #### H EMDF #### [facility] [address] [place] Platelet mean volume (Bld) [Entitic vol] 7.9 fL Normal 7.4-10.4 [facility] Comment on above: Performed By: #### H EMDF #### [facility] [address] [place] Platelets (Bld) [#/Vol] 185 10*3/uL Normal 140-440 [facility] Comment on above: Performed By: #### H EMDF #### [facility] [address] [place] RBC (Bld) [#/Vol] 3.35 10*6/uL Low 4.40-5.90 [facility] Comment on above: Performed By: #### H EMDF #### [facility] [address] [place] WBC (Bld) [#/Vol] 6.0 10*3/uL Normal 3.6-10.7 [facility] Comment on above: Performed By: #### H EMDF #### [facility] [address] [place] Magnesiumon 06-02-2020 Magnesium [Mass/Vol] 2.0 mg/dL Normal 1.6-2.3 [facility] Comment on above: Performed By: #### M G3, BMP3 #### [facility] [address] [place] Magnesium [Mass/Vol] 2.0 mg/dL 1.6 - 2 .3 mg/dL [place] Otheron 06-02-2020 Test Performed by [facility], [address] [place] [address] [place] POCT Glucoseon 06-02-2020 Glucose [Mass/Vol] 318 mg/dL High 70 - 100 mg/dL [place] Comment on above: Test performed by gl ucose meter. Results may be 10%-15% lower than serum/plasma values. (CLIA ID [id number]) Interpretation and review of laboratory results Abnormal [facility] [place] [place] Test Performed by [facility], [address] [place] [address] [facility] [place] Glucose [Mass/Vol] 173 mg/dL High 70 - 100 mg/dL [place] Comment on above: Test performed by gl ucose meter. Results may be 10%-15% lower than serum/plasma values. (CLIA ID [id number]) Interpretation and review of laboratory results Abnormal [email or web address] [place] Test Performed by [facility] [place] [address] [facility], [place] Add On Lab Teston 06-01-2020 Sodium [Moles/Vol] Accepted [place] Comment on above: Specimen available & acceptable for analysis. Test Performed by [facility], [facility] [place] [address] [facility], [place] Add on test from HISon 06-01 Add on test from HIS Accepted Normal [facility] Comment on above: Result Comment: Spec imen available & acceptable for analysis. Performed By: #### B MP3, PHOS3, HEMOG, PT/AP, MG3 #### [place] [address] [place], [place] Basic Metabolic Panelon Calcium [Mass/Vol] 8.3 mg/dL Low 8.4-10.4 [facility] Comment on above: Performed By: #### B MP3, PHOS3, HEMOG, PT/AP, MG3 #### [place] [address] [place], [place] Anion gap [Moles/Vol] 8 Normal [facility] Comment on above: Performed By: #### B MP3, PHOS3, HEMOG, PT/AP, MG3 #### [address] CO2 [Moles/Vol] 26 mmol/L Normal 22-30 [facility] Comment on above: Performed By: #### B MP3, PHOS3, HEMOG, PT/AP, MG3 #### [address] Creatinine [Mass/Vol] 1.04 mg/dL Normal 0.52-1.25 [facility] Comment on above: Performed By: #### B MP3, PHOS3, HEMOG, PT/AP, MG3 #### [address] GFR/1.73 sq M predicted among blacks MDRD (S/P/Bld) [Vol rate/Area] 82.9 mL/min/{1.73_m2} Normal >60 [facility] Comment on above: Performed By: #### B MP3, PHOS3, HEMOG, PT/AP, MG3 #### [facility] [address] [place] [address] GFR/1.73 sq M predicted among non-blacks MDRD (S/P/Bld) [Vol rate/Area] 71.5 mL/min/{1.73_m2} Normal >60 [facility] Comment on above: Result Comment: KDIG [...] B MP3, PHOS3, HEMOG, PT/AP, MG3 #### [address] [address] Glucose [Mass/Vol] 175 mg/dL High 70-100 [facility] Comment on above: Performed By: #### B MP3, PHOS3, HEMOG, PT/AP, MG3 #### [facility] [address] [place] [address] Urea nitrogen [Mass/Vol] 19 mg/dL Normal 7-20 [facility] Comment on above: Performed By: #### B MP3, PHOS3, HEMOG, PT/AP, MG3 #### [facility] [address] [place] [address] Chloride [Moles/Vol] 98 mmol/L Normal 98-107 [facility] Comment on above: Performed By: #### B MP3, PHOS3, HEMOG, PT/AP, MG3 #### [facility] [address] [place] Potassium [Moles/Vol] 4.1 mmol/L Normal 3.5-5.1 [facility] Comment on above: Performed By: #### B MP3, PHOS3, HEMOG, PT/AP, MG3 #### [facility] [address] [place] Sodium [Moles/Vol] 131 mmol/L Low 135-145 [facility] Comment on above: Performed By: #### B MP3, PHOS3, HEMOG, PT/AP, MG3 #### [facility] [address] [place] Basic Metabolic Panel w/ Ref suresh to [facility] 06-01-2020 Anion gap [Moles/Vol] 8 mmol/L [place] Calcium [Mass/Vol] 8.3 mg/dL Low 8.4 - 10. 4 mg/dL [place] Chloride [Moles/Vol] 98 mmol/L 98 - 10 7 mmol/L [place] CO2 [Moles/Vol] 26 mmol/L 22 - 30 mmol/L [place] Creatinine [Mass/Vol] 1.04 mg/dL 0.52 - 1.25 mg/dL [place] EGFR IF NonAfrican [place] Citizen 71.5 mL/min >60 [place] Comment on above: KDIGO guidelines pro [...] MDRD (S/P/Bld) [Vol rate/Area] 82.9 mL/min/{1.73_m2} >60 [place] Glucose [Mass/Vol] 175 mg/dL High 70 - 100 mg/dL [place] Interpretation and review of laboratory results Abnormal [place] Potassium [Moles/Vol] 4.1 mmol/L 3.5 - 5.1 mmol/L [place] Sodium [Moles/Vol] 131 mmol/L Low 135 - 145 mmol/L [place] Urea nitrogen [Mass/Vol] 19 mg/dL 7 - 20 mg/dL [place] Test Performed by [facility], [address] [place] [address] [place] CBC Auto Differentialon 10-0 Erythrocyte distribution width (RBC) [Ratio] 13.6 % 11.5 - 14.5 % [place] Hematocrit (Bld) [Volume fraction] 30.6 % Low 40 - 52 % [place] Hemoglobin (Bld) [Mass/Vol] 10.4 g/dL Low 13 - 18 g/dL [place] MCH (RBC) [Entitic mass] 30.0 pg 26 - 34 pg [place] MCHC (RBC) [Mass/Vol] 33.9 % 32 - 36 % [place] MCV (RBC) [Entitic vol] 88.7 fL 80 - 98 fL [place] Platelet mean volume (Bld) [Entitic vol] 8.5 fL 7.4 - 10.4 fL [place] Platelets (Bld) [#/Vol] 146 10*3/uL 140 - 440 10*3/uL [place] RBC (Bld) [#/Vol] 3.45 10*6/uL Low 4.4 - 5.9 10*6/uL [place] WBC (Bld) [#/Vol] 8.8 10*3/uL 3.6 - 10.7 10*3/uL [facility], [place] CR Chest Portableon 06-01-20 20 CR Chest Portable Patient Name: ASCENCION MONTOYA Diagnostic Radiology Exam Date/Time 06/01/2020 08:12:48 EDT Exam CR Chest Portable Ordering Physician HONEY GREGORIO JAN C Accession Number [id number] CPT4 Codes 35766 () Reason For Exam adventious lung sounds [...] Transcribed Date and Time: 06/01/2020 8:47 Normal [facility] EKG 12 Leadon 06-01-2020 [facility] Test Date: 2020-05-30 Pat Name: Ascencion Weir Department: 1AHLU Room: [facility] Gender: M 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1950 Requested By: JEAN CLAUDE KILLIAN Order Number: [id number] Reading MD: Omkar Heredia Measurements Intervals Blanco Rate: 108 P: 53 VT: 159 QRS: 9 QRSD: 64 T: 58 QT: 291 QTc: 390 Interpretive Statements Sinus tachycardia Abnormal R-wave progression, early transition Borderline T abnormalities, anterior leads Electronically Signed On 06-01-2020 1:06:42 EDT by Omkar Heredia [facility], [place], [facility] Incoming Cardiology Results From [employer] - 06/01/2020 1:07 AM EDT [facility] Test Date: 2020-05-30 Pat Name: Ascencion Weir Department: 1AU Room: LU10 Gender: M 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 Operator: LOREN : 1950 Requested By: JEAN CLAUDE KILLIAN Order Number: [id number] Reading MD: Omkar Heredia Measurements Intervals Blanco Rate: 108 P: 53 VT: 159 QRS: 9 QRSD: 64 T: 58 QT: 291 QTc: 390 Interpretive Statements Sinus tachycardia Abnormal R-wave progression, early transition Borderline T abnormalities, anterior leads Electronically Signed On 06-01-2020 1:06:42 EDT by Omkar Heredia [place] Glucose,Bedsideon 06-01-2020 Glucose [Mass/Vol] 254 mg/dL High [address] Comment on above: Result Comment: Test performed by glucose meter. Results may be 10%-15% lower than serum/plasma values. (CLIA ID [id number]) Performed By: #### B MP3, PHOS3, HEMOG, PT/AP, MG3 #### [facility] [address] [place] [address] Glucose [Mass/Vol] 138 mg/dL [address] Comment on above: Result Comment: Test performed by glucose meter. Results may be 10%-15% lower than serum/plasma values. (CLIA ID [id number]) Performed By: #### B MP3, PHOS3, HEMOG, PT/AP, MG3 #### [facility] [address] [place] [address] Glucose [Mass/Vol] 211 mg/dL [address] Comment on above: Result Comment: Test performed by glucose meter. Results may be 10%-15% lower than serum/plasma values. (CLIA ID [id number]) Performed By: #### B MP3, PHOS3, HEMOG, PT/AP, MG3 #### [facility] [address] [place] [address] Glucose [Mass/Vol] 199 mg/dL High [address] [place] [address] Comment on above: Result Comment: Test performed by glucose meter. Results may be 10%-15% lower than serum/plasma values. (CLIA ID [id number]) Performed By: #### B MP3, PHOS3, HEMOG, PT/AP, MG3 #### [facility] [address] [place] Hemogram w/ Autodiffon 06-01 Erythrocyte distribution width (RBC) [Ratio] 13.6 % Normal 11.5-14.5 [facility] Comment on above: Performed By: #### B MP3, PHOS3, HEMOG, PT/AP, MG3 #### [address] [address] [place], [place] Hematocrit (Bld) [Volume fraction] 30.6 % Low 40.0-52.0 [facility] Comment on above: Performed By: #### B MP3, PHOS3, HEMOG, PT/AP, MG3 #### [address] Hemoglobin (Bld) [Mass/Vol] 10.4 g/dL Low 13.0-18.0 [facility] Comment on above: Performed By: #### B MP3, PHOS3, HEMOG, PT/AP, MG3 #### [address] [address] [place], [place] MCH (RBC) [Entitic mass] 30.0 pg Normal 26.0-34.0 [facility] Comment on above: Performed By: #### B MP3, PHOS3, HEMOG, PT/AP, MG3 #### [address] MCHC (RBC) [Mass/Vol] 33.9 % Normal 32.0-36.0 [facility] Comment on above: Performed By: #### B MP3, PHOS3, HEMOG, PT/AP, MG3 #### [address] MCV (RBC) [Entitic vol] 88.7 fL Normal 80.0-98.0 [facility] Comment on above: Performed By: #### B MP3, PHOS3, HEMOG, PT/AP, MG3 #### [address] [address] [place], [place] Platelet mean volume (Bld) [Entitic vol] 8.5 fL Normal 7.4-10.4 [facility] Comment on above: Performed By: #### B MP3, PHOS3, HEMOG, PT/AP, MG3 #### [address] [place] Platelets (Bld) [#/Vol] 146 10*3/uL Normal 140-440 [facility] Comment on above: Performed By: #### B MP3, PHOS3, HEMOG, PT/AP, MG3 #### [address] [place] RBC (Bld) [#/Vol] 3.45 10*6/uL Low 4.40-5.90 [facility] Comment on above: Performed By: #### B MP3, PHOS3, HEMOG, PT/AP, MG3 #### [address] [address] [place], [place] WBC (Bld) [#/Vol] 8.8 10*3/uL Normal 3.6-10.7 [facility] Comment on above: Performed By: #### B MP3, PHOS3, HEMOG, PT/AP, MG3 #### [address] [place] Magnesiumon 06-01-2020 Magnesium [Mass/Vol] 1.7 mg/dL Normal 1.6-2.3 [facility] Comment on above: Performed By: #### B MP3, PHOS3, HEMOG, PT/AP, MG3 #### [address] [place] Magnesium [Mass/Vol] 1.7 mg/dL 1.6 - 2 .3 mg/dL [place], [place] Test Performed by [facility], [facility] [place], [place] [id number] [place] [address] Manual Diffon 06-01-2020 Abs Baso Cnt 0.1 10*3/uL Normal 0.0-0.2 [facility] Comment on above: Performed By: #### B MP3, PHOS3, HEMOG, PT/AP, MG3 #### [facility] [address] [place], [place] Abs Eosin Cnt 2.3 10*3/uL High 0.0-0.5 [facility] Comment on above: Performed By: #### B MP3, PHOS3, HEMOG, PT/AP, MG3 #### [facility] [address] [place] Abs Lymph Cnt 1.7 10*3/uL Normal 1.1-4.5 [facility] Comment on above: Performed By: #### B MP3, PHOS3, HEMOG, PT/AP, MG3 #### [address] [place] Abs Monocyte Cnt 0.8 10*3/uL Normal 0.2-1.1 [facility] Comment on above: Performed By: #### B MP3, PHOS3, HEMOG, PT/AP, MG3 #### [address] [place] Abs Neutrophile Cnt 4.0 10*3/uL Normal 2.2-8.2 [facility] Comment on above: Performed By: #### B MP3, PHOS3, HEMOG, PT/AP, MG3 #### [address] [place] Anisocytosis Ql (Bld) Slight Normal [facility] Comment on above: Performed By: #### B MP3, PHOS3, HEMOG, PT/AP, MG3 #### [address] [place] Basophils 1 % Normal 0-2 [facility] Comment on above: Performed By: #### B MP3, PHOS3, HEMOG, PT/AP, MG3 #### [address] [place] Wayne Cells Moderate Normal [facility] Comment on above: Performed By: #### B MP3, PHOS3, HEMOG, PT/AP, MG3 #### [address] [place] Dohle Bodies Slight Normal [facility] Comment on above: Performed By: #### B MP3, PHOS3, HEMOG, PT/AP, MG3 #### [facility] [address] [place], [place] Eosinophils 26 % High 1-6 [facility] Comment on above: Performed By: #### B MP3, PHOS3, HEMOG, PT/AP, MG3 #### [facility] [address] [place], [place] Lymphocytes 19 % Low 20-40 [facility] Comment on above: Performed By: #### B MP3, PHOS3, HEMOG, PT/AP, MG3 #### [facility] [address] [place] Monocytes 9 % Normal 2-10 [facility] Comment on above: Performed By: #### B MP3, PHOS3, HEMOG, PT/AP, MG3 #### [facility] [address] [place] Ovalocytes Slight Normal [facility] Comment on above: Performed By: #### B MP3, PHOS3, HEMOG, PT/AP, MG3 #### [facility] [address] [place] Poikilocytosis Slight Normal [facility] Comment on above: Performed By: #### B MP3, PHOS3, HEMOG, PT/AP, MG3 #### [facility] [address] [place] RBC morphology finding Nom (Bld) ABNORMAL Normal [facility] Comment on above: Performed By: #### B MP3, PHOS3, HEMOG, PT/AP, MG3 #### [facility] [address] [place] Schistocytes Slight Normal [facility] Comment on above: Performed By: #### B MP3, PHOS3, HEMOG, PT/AP, MG3 #### [facility] [address] [place] Seg Neutrophils 45 % Normal 40-80 [facility] Comment on above: Performed By: #### B MP3, PHOS3, HEMOG, PT/AP, MG3 #### [facility] [address] [place] [address] Bands 0 % Normal 0-3 [facility] Comment on above: Performed By: #### B MP3, PHOS3, HEMOG, PT/AP, MG3 #### [facility] [address] [place] [address] Cells counted 100 Normal [facility] Comment on above: Performed By: #### B MP3, PHOS3, HEMOG, PT/AP, MG3 #### [facility] [address] [place] [address] Manual Differentialon 2019 Absolute Baso # 0.1 10*3/uL 0 - 0.2 10*3/uL [facility] Absolute Eos # 2.3 10*3/uL High 0 - 0.5 10*3/uL [facility] [place] Absolute Lymph # 1.7 10*3/uL 1.1 - 4.5 10*3/uL [facility] [place] Absolute [place] # 0.8 10*3/uL 0.2 - 1.1 10*3/uL [facility] [place] Absolute Neut # 4.0 10*3/uL 2.2 - 8.2 10*3/uL [facility] [place] Anisocytosis Ql (Bld) Slight [facility] Bands 0 % 0 - 3 % [facility] [place] Basophils 1 % 0 - 2 % [facility] [place] Faber Cells Moderate [facility] Dohle Bodies Slight [facility] [place] Eosinophils 26 % High 1 - 6 % [facility] [place] Lymphocytes 19 % Low 20 - 40 % [facility] [place] Monocytes 9 % 2 - 10 % [facility] [place] Ovalocytes Slight [facility] [place] Poikilocytes Slight [facility] [place] RBC morphology finding Nom (Bld) ABNORMAL [facility] [place] Schistocytes Slight [facility] [place] Seg Neutrophils 45 % 40 - 80 % [facility] [place] TOTAL CELLS COUNTED 100 [facility] Otheron 06-01-2020 Interpretation and review of laboratory results Abnormal [facility] [place] Test Performed by [facility], [address] [place] [address] [facility] [place] POCT Glucoseon 06-01-2020 Glucose [Mass/Vol] 254 mg/dL High 70 - 100 mg/dL [facility] [place] Comment on above: Test performed by gl ucose meter. Results may be 10%-15% lower than serum/plasma values. (CLIA ID [id number]) Interpretation and review of laboratory results Abnormal [facility] [place] Test Performed by [facility], [address] [place] [address] [facility] [place] Glucose [Mass/Vol] 138 mg/dL High 70 - 100 mg/dL [facility] [place] Comment on above: Test performed by gl ucose meter. Results may be 10%-15% lower than serum/plasma values. (CLIA ID [id number]) Interpretation and review of laboratory results Abnormal [facility] [place] Test Performed by [facility], [address] [place] [address] [facility] [place] Glucose [Mass/Vol] 211 mg/dL High 70 - 100 mg/dL [facility] [place] Comment on above: Test performed by gl ucose meter. Results may be 10%-15% lower than serum/plasma values. (CLIA ID [id number]) Interpretation and review of laboratory results Abnormal [facility] [place] Test Performed by [facility], [address] [place] [address] [facility] Glucose [Mass/Vol] 199 mg/dL High 70 - 100 mg/dL [facility] [place] Comment on above: Test performed by gl ucose meter. Results may be 10%-15% lower than serum/plasma values. (CLIA ID [id number]) Interpretation and review of laboratory results Abnormal [facility] [place] Test Performed by [facility], [address] [place] [address] [facility] [place] XR CHEST PORTABLEon 06-01-20 Patient Name: ASCENCION MONTOYA [facility]: [id number] ---Diagnostic Radiology--- Exam Date/Time 06/01/2020 08:12:48 EDT Exam CR Chest Portable Ordering Physician HONEY GREGORIO MIGUE Harper Accession Number [id number] CPT4 Codes 92315 () Reason For Exam adventious lung sounds [...] JEFFREY Transcribed Date and Time: 06/01/2020 8:47 [facility], [place] [facility], [facility] Results From [facility] - 06/01/2020 8:49 AM EDT Patient Name: ASCENCION WEIR ---Diagnostic Radiology--- Exam Date/Time 06/01/2020 08:12:48 EDT Exam CR Chest Portable Ordering Physician HONEY GREGORIO MIGUE Harper Accession Number [id number] CPT4 Codes 13836 () Reason For Exam adventious lung sounds [...] JEFFREY Transcribed Date and Time: 06/01/2020 8:47 [facility], [place] Basic Metabolic Panelon 10-0 Calcium [Mass/Vol] 8.7 mg/dL Normal 8.4-10.4 [facility] Comment on above: Performed By: #### B GLU #### [facility] [address] [place] Anion gap [Moles/Vol] 9 Normal [facility] Comment on above: Performed By: #### B GLU #### [facility] [address] [place] CO2 [Moles/Vol] 26 mmol/L Normal 22-30 [facility] Comment on above: Performed By: #### B GLU #### [facility] [address] [place] Glucose [Mass/Vol] 126 mg/dL High 70-100 [facility] Comment on above: Performed By: #### B GLU #### [facility] [address] [place] Urea nitrogen [Mass/Vol] 19 mg/dL Normal 7-20 [facility] Comment on above: Performed By: #### B GLU #### [facility] [address] [place] Creatinine [Mass/Vol] 1.10 mg/dL Normal 0.52-1.25 [facility] Comment on above: Performed By: #### B GLU #### [facility] [address] [place] GFR/1.73 sq M predicted among blacks MDRD (S/P/Bld) [Vol rate/Area] 77.4 mL/min/{1.73_m2} Normal >60 [facility] Comment on above: Performed By: #### B GLU #### [facility] [address] [place] GFR/1.73 sq M predicted among non-blacks MDRD (S/P/Bld) [Vol rate/Area] 66.8 mL/min/{1.73_m2} Normal >60 [facility] Comment on above: Result Comment: KDIG [...] secretion. Performed By: #### B GLU #### [address] [place] Chloride [Moles/Vol] 98 mmol/L Normal 98-107 [facility] Comment on above: Performed By: #### B GLU #### [address] [address] [place], [place] Potassium [Moles/Vol] 4.5 mmol/L Normal 3.5-5.1 [facility] Comment on above: Performed By: #### B GLU #### [address] [address] [place], [place] Sodium [Moles/Vol] 133 mmol/L Low 135-145 [facility] Comment on above: Performed By: #### B GLU #### [address] Anion gap [Moles/Vol] 9 mmol/L [facility], [place] Calcium [Mass/Vol] 8.7 mg/dL 8.4 - 10. 4 mg/dL [facility], [place] Chloride [Moles/Vol] 98 mmol/L 98 - 10 7 mmol/L [facility], [place] CO2 [Moles/Vol] 26 mmol/L 22 - 30 mmol/L [facility], [place] Creatinine [Mass/Vol] 1.1 mg/dL 0.52 - 1.25 mg/dL [place] EGFR IF NonAfrican [place] Citizen 66.8 mL/min >60 [place] Comment on above: KDIGO guidelines pro [...] MDRD (S/P/Bld) [Vol rate/Area] 77.4 mL/min/{1.73_m2} >60 [place] Glucose [Mass/Vol] 126 mg/dL High 70 - 100 mg/dL [place] Interpretation and review of laboratory results Abnormal [place] Potassium [Moles/Vol] 4.5 mmol/L 3.5 - 5.1 mmol/L [place] Sodium [Moles/Vol] 133 mmol/L Low 135 - 145 mmol/L [place] Urea nitrogen [Mass/Vol] 19 mg/dL 7 - 20 mg/dL [place] Test Performed by [facility], [facility] [place] [address] [place] C-Reactive Proteinon 020 CRP [Mass/Vol] 321.1 mg/L High 0.0-6.0 [facility] Comment on above: Result Comment: . Performed By: #### B GLU #### [facility] [address] [place] [address] CRP [Mass/Vol] 321.1 mg/L High 0 - 6 mg/L [place] Comment on above: . Interpretation and review of laboratory results Abnormal [place] Test Performed by [facility], [address] [place] [address] [place] CBC Auto Differentialon 10-0 -2019 Absolute Baso # 0.1 10*3/uL 0 - 0.2 10*3/uL [place] Absolute Neut # 6.4 10*3/uL 1.8 - 7 10*3/uL [place] Basophils/100 WBC (Bld) 0.5 % 0 - 2 % [place] Eosinophils (Bld) [#/Vol] 0.9 10*3/uL High 0 - 0.5 10*3/uL [place] Eosinophils/100 WBC (Bld) 8.6 % High 1 - 6 % [place] Erythrocyte distribution width (RBC) [Ratio] 14.1 % 11.5 - 14.5 % [place] Granulocytes/100 WBC (Bld) 62.7 % 40 - 80 % [place] Hematocrit (Bld) [Volume fraction] 31.3 % Low 40 - 52 % [place] Hemoglobin (Bld) [Mass/Vol] 10.9 g/dL Low 13 - 18 g/dL [place] Interpretation and review of laboratory results Abnormal [place] Lymphocytes (Bld) [#/Vol] 1.6 10*3/uL 1 - 4.3 10*3/uL [place] Lymphocytes/100 WBC (Bld) 15.3 % Low 20 - 40 % [place] MCH (RBC) [Entitic mass] 30.7 pg 26 - 34 pg [place] MCHC (RBC) [Mass/Vol] 34.7 % 32 - 36 % [place] MCV (RBC) [Entitic vol] 88.5 fL 80 - 98 fL [place], [place] Monocytes (Bld) [#/Vol] 1.3 10*3/uL High 0 - 0.8 10*3/uL [place] Monocytes/100 WBC (Bld) 12.9 % High 2 - 10 % [place] Platelet mean volume (Bld) [Entitic vol] 7.8 fL 7.4 - 10.4 fL [place] Platelets (Bld) [#/Vol] 162 10*3/uL 140 - 440 10*3/uL [place] RBC (Bld) [#/Vol] 3.54 10*6/uL Low 4.4 - 5.9 10*6/uL [place] WBC (Bld) [#/Vol] 10.3 10*3/uL 3.6 - 10.7 10*3/uL [place] Test Performed by [facility], [facility] [place], [place] [address] [place] [address] Glucose,Bedsideon 05-31-2020 Glucose [Mass/Vol] 199 mg/dL High 70-100 [facility] Comment on above: Result Comment: Test performed by glucose meter. Results may be 10%-15% lower than serum/plasma values. (CLIA ID [id number]) Performed By: #### B MP3, PHOS3, HEMOG, PT/AP, MG3 #### [address] [address] [place] [address] Glucose [Mass/Vol] 133 mg/dL High 70-100 [facility] Comment on above: Result Comment: Test performed by glucose meter. Results may be 10%-15% lower than serum/plasma values. (CLIA ID [id number]) Performed By: #### B MP3, PHOS3, HEMOG, PT/AP, MG3 #### [address] [address] [place] [address] Glucose [Mass/Vol] 213 mg/dL High 70-100 [facility] Comment on above: Result Comment: Test performed by glucose meter. Results may be 10%-15% lower than serum/plasma values. (CLIA ID [id number]) Performed By: #### B MP3, PHOS3, HEMOG, PT/AP, MG3 #### [facility] [address] [place] [address] Glucose [Mass/Vol] 129 mg/dL High 70-100 [facility] Comment on above: Result Comment: Test performed by glucose meter. Results may be 10%-15% lower than serum/plasma values. (CLIA ID [id number]) Performed By: #### B MP3, PHOS3, HEMOG, PT/AP, MG3 #### [facility] [address] [place] [address] Glucose [Mass/Vol] 129 mg/dL High 70-100 [facility] Comment on above: Result Comment: Test performed by glucose meter. Results may be 10%-15% lower than serum/plasma values. (CLIA ID [id number]) Performed By: #### B MP3, PHOS3, HEMOG, PT/AP, MG3 #### [employer] [address] [place] [address] Glucose [Mass/Vol] 144 mg/dL High 70-100 [facility] Comment on above: Result Comment: Test performed by glucose meter. Results may be 10%-15% lower than serum/plasma values. (CLIA ID [id number]) Performed By: #### B MP3, PHOS3, HEMOG, PT/AP, MG3 #### [facility] [address] [place] [address] Glucose [Mass/Vol] 139 mg/dL High 70-100 [facility] Comment on above: Result Comment: Test performed by glucose meter. Results may be 10%-15% lower than serum/plasma values. (CLIA ID [id number]) Performed By: #### B GLU #### [facility] [address] [place] [address] Glucose [Mass/Vol] 116 mg/dL High 70-100 [facility] Comment on above: Result Comment: Test performed by glucose meter. Results may be 10%-15% lower than serum/plasma values. (CLIA ID [id number]) Performed By: #### B GLU #### [employer] [address] [place] [address] Glucose [Mass/Vol] 120 mg/dL High 70-100 [facility] Comment on above: Result Comment: Test performed by glucose meter. Results may be 10%-15% lower than serum/plasma values. (CLIA ID [id number]) Performed By: #### B GLU #### [facility] [address] [place] [address] Glucose [Mass/Vol] 112 mg/dL High 70-100 [facility] Comment on above: Result Comment: Test performed by glucose meter. Results may be 10%-15% lower than serum/plasma values. (CLIA ID [id number]) Performed By: #### B MP3, PHOS3, HEMOG, PT/AP, MG3 #### [facility] [address] [place] [address] Glucose [Mass/Vol] 107 mg/dL High 70-100 [facility] Comment on above: Result Comment: Test performed by glucose meter. Results may be 10%-15% lower than serum/plasma values. (CLIA ID [id number]) Performed By: #### H EMDF #### [facility] [address] [place] [address] Glucose [Mass/Vol] 112 mg/dL High 70-100 [facility] Comment on above: Result Comment: Test performed by glucose meter. Results may be 10%-15% lower than serum/plasma values. (CLIA ID [id number]) Performed By: #### B GLU #### [facility] [address] [place] [address] Glucose [Mass/Vol] 107 mg/dL High 70-100 [facility] Comment on above: Result Comment: Test performed by glucose meter. Results may be 10%-15% lower than serum/plasma values. (CLIA ID [id number]) Performed By: #### B GLU #### [facility] [address] [place] [address] Hemoglobin A1Con 05-31-2020 HbA1c (Bld) [Mass fraction] 105 mg/dL Normal [facility] Comment on above: Performed By: #### B GLU #### [facility] [address] [place] [address] HbA1c (Bld) [Mass fraction] 5.3 % Normal 4.0-6.0 [place] Comment on above: --HgbA1C levels may not be accurate in patients who have renal disease, received recent blood transfusions, are anemic, or who have dyshemoglobinemia. Result Comment: --Hg bA1C levels may not be accurate in patients who have renal disease, received recent blood transfusions, are anemic, or who have dyshemoglobinemia. Performed By: #### B GLU #### [address] [address] [place] eAG 105 mg/dL [place] Test Performed by [place] [address] [place] [address] [place] Hemogram w/ Autodiffon 05-31 Abs Baso Cnt 0.1 10*3/uL Normal 0.0-0.2 [facility] Comment on above: Performed By: #### B MP3, PHOS3, HEMOG, PT/AP, MG3 #### [address] [address] [place], [place] Abs Neutrophile Cnt 6.4 10*3/uL Normal 1.8-7.0 [facility] Comment on above: Performed By: #### B MP3, PHOS3, HEMOG, PT/AP, MG3 #### [address] [address] [place], [place] Basophils/100 WBC (Bld) 0.5 % Normal 0.0-2.0 [facility] Comment on above: Performed By: #### B MP3, PHOS3, HEMOG, PT/AP, MG3 #### [address] [address] [place] Eosinophils (Bld) [#/Vol] 0.9 10*3/uL High 0.0-0.5 [facility] Comment on above: Performed By: #### B MP3, PHOS3, HEMOG, PT/AP, MG3 #### [address] [address] [place] Eosinophils/100 WBC (Bld) 8.6 % High 1.0-6.0 [facility] Comment on above: Performed By: #### B MP3, PHOS3, HEMOG, PT/AP, MG3 #### [address] [place] Erythrocyte distribution width (RBC) [Ratio] 14.1 % Normal 11.5-14.5 [facility] Comment on above: Performed By: #### B MP3, PHOS3, HEMOG, PT/AP, MG3 #### [address] [place] Granulocytes/100 WBC (Bld) 62.7 % Normal 40.0-80.0 [facility] Comment on above: Performed By: #### B MP3, PHOS3, HEMOG, PT/AP, MG3 #### [address] [address] [place] Hematocrit (Bld) [Volume fraction] 31.3 % Low 40.0-52.0 [facility] Comment on above: Performed By: #### B MP3, PHOS3, HEMOG, PT/AP, MG3 #### [address] [place] Hemoglobin (Bld) [Mass/Vol] 10.9 g/dL Low 13.0-18.0 [facility] Comment on above: Performed By: #### B MP3, PHOS3, HEMOG, PT/AP, MG3 #### [address] [address] [place] Lymphocytes (Bld) [#/Vol] 1.6 10*3/uL Normal 1.0-4.3 [facility] Comment on above: Performed By: #### B MP3, PHOS3, HEMOG, PT/AP, MG3 #### [address] Lymphocytes/100 WBC (Bld) 15.3 % Low 20.0-40.0 [facility] Comment on above: Performed By: #### B MP3, PHOS3, HEMOG, PT/AP, MG3 #### [address] [address] [place] MCH (RBC) [Entitic mass] 30.7 pg Normal 26.0-34.0 [facility] Comment on above: Performed By: #### B MP3, PHOS3, HEMOG, PT/AP, MG3 #### [address] [address] [place] MCHC (RBC) [Mass/Vol] 34.7 % Normal 32.0-36.0 [facility] Comment on above: Performed By: #### B MP3, PHOS3, HEMOG, PT/AP, MG3 #### [address] [address] [place] MCV (RBC) [Entitic vol] 88.5 fL Normal 80.0-98.0 [facility] Comment on above: Performed By: #### B MP3, PHOS3, HEMOG, PT/AP, MG3 #### [address] [address] [place], [place] Monocytes (Bld) [#/Vol] 1.3 10*3/uL High 0.0-0.8 [facility] Comment on above: Performed By: #### B MP3, PHOS3, HEMOG, PT/AP, MG3 #### [address] Monocytes/100 WBC (Bld) 12.9 % High 2.0-10.0 [facility] Comment on above: Performed By: #### B MP3, PHOS3, HEMOG, PT/AP, MG3 #### [address] [place], [place] Platelet mean volume (Bld) [Entitic vol] 7.8 fL Normal 7.4-10.4 [facility] Comment on above: Performed By: #### B MP3, PHOS3, HEMOG, PT/AP, MG3 #### [address] Platelets (Bld) [#/Vol] 162 10*3/uL Normal 140-440 [facility] Comment on above: Performed By: #### B MP3, PHOS3, HEMOG, PT/AP, MG3 #### [facility] [address] [place], [place] RBC (Bld) [#/Vol] 3.54 10*6/uL Low 4.40-5.90 [facility] Comment on above: Performed By: #### B MP3, PHOS3, HEMOG, PT/AP, MG3 #### [facility] [address] [place] WBC (Bld) [#/Vol] 10.3 10*3/uL Normal 3.6-10.7 [facility] Comment on above: Performed By: #### B MP3, PHOS3, HEMOG, PT/AP, MG3 #### [facility] [address] [place] POCT Glucoseon 05-31-2020 Glucose [Mass/Vol] 199 mg/dL High 70 - 100 mg/dL [facility], [place] Comment on above: Test performed by gl ucose meter. Results may be 10%-15% lower than serum/plasma values. (CLIA ID [id number]) Interpretation and review of laboratory results Abnormal [facility] Test Performed by [facility], [place] [address] [facility] [place] Glucose [Mass/Vol] 133 mg/dL High 70 - 100 mg/dL [facility]- [place], [place] Comment on above: Test performed by gl ucose meter. Results may be 10%-15% lower than serum/plasma values. (CLIA ID [id number]) Interpretation and review of laboratory results Abnormal [facility] Test Performed by [facility], [address] [place] [address] [facility] [place] Glucose [Mass/Vol] 213 mg/dL High 70 - 100 mg/dL [facility] Comment on above: Test performed by gl ucose meter. Results may be 10%-15% lower than serum/plasma values. (CLIA ID [id number]) Interpretation and review of laboratory results Abnormal [facility] Test Performed by [facility], [address] [place] [address] [facility] Glucose [Mass/Vol] 129 mg/dL High 70 - 100 mg/dL [facility] Comment on above: Test performed by gl ucose meter. Results may be 10%-15% lower than serum/plasma values. (CLIA ID [id number]) Interpretation and review of laboratory results Abnormal [facility] Test Performed by [facility], [address] [place] [address] [facility] Glucose [Mass/Vol] 129 mg/dL High 70 - 100 mg/dL [facility] Comment on above: Test performed by gl ucose meter. Results may be 10%-15% lower than serum/plasma values. (CLIA ID [id number]) Interpretation and review of laboratory results Abnormal [facility] Test Performed by [facility], [address], [place] [address] [facility] Glucose [Mass/Vol] 144 mg/dL High 70 - 100 mg/dL [facility] Comment on above: Test performed by gl ucose meter. Results may be 10%-15% lower than serum/plasma values. (CLIA ID [id number]) Interpretation and review of laboratory results Abnormal [facility] Test Performed by [facility], [address] [place] [address] [facility] Glucose [Mass/Vol] 139 mg/dL High 70 - 100 mg/dL [facility] Comment on above: Test performed by gl ucose meter. Results may be 10%-15% lower than serum/plasma values. (CLIA ID [id number]) Interpretation and review of laboratory results Abnormal [facility] Test Performed by [facility], [address] [place] [address] [facility] Glucose [Mass/Vol] 116 mg/dL High 70 - 100 mg/dL [facility] Comment on above: Test performed by gl ucose meter. Results may be 10%-15% lower than serum/plasma values. (CLIA ID [id number]) Interpretation and review of laboratory results Abnormal [facility] Test Performed by [facility], [address] [place] [address] [facility] [place] Glucose [Mass/Vol] 120 mg/dL High 70 - 100 mg/dL [facility] [place] Comment on above: Test performed by gl ucose meter. Results may be 10%-15% lower than serum/plasma values. (CLIA ID [id number]) Interpretation and review of laboratory results Abnormal [facility] Test Performed by [facility], [address] [place] [address] [facility] [place], [place] Glucose [Mass/Vol] 112 mg/dL High 70 - 100 mg/dL [facility] [place] Comment on above: Test performed by gl ucose meter. Results may be 10%-15% lower than serum/plasma values. (CLIA ID [id number]) Interpretation and review of laboratory results Abnormal [facility] Test Performed by [facility], [facility] [place] [address] [facility] [place] Glucose [Mass/Vol] 107 mg/dL High 70 - 100 mg/dL [facility] [place] Comment on above: Test performed by gl ucose meter. Results may be 10%-15% lower than serum/plasma values. (CLIA ID [id number]) Interpretation and review of laboratory results Abnormal [facility] Test Performed by [facility], [address] [place] [address] [facility], [place] Prothrombin Timeon -03-202 0 INR Coag (PPP) [Relative time] 1.3 High 0.9-1.1 [facility] Comment on above: Result Comment: Naeem [...] B MP3, PHOS3, HEMOG, PT/AP, MG3 #### [facility] [address] [place] [address] PT Coag (PPP) [Time] 13.9 s High 9.0-12.0 [facility] Comment on above: Result Comment: . Performed By: #### B MP3, PHOS3, HEMOG, PT/AP, MG3 #### [address] [place] [address] Protime-INRon 05-31-2020 INR Coag (PPP) [Relative time] 1.3 {INR} [place] Comment on above: Recommended Anticoag ulant [...] Interpretation and review of laboratory results Abnormal [place] PT Coag (PPP) [Time] 13.9 s High 9 - 12 s [place] Comment on above: . Test Performed by [id number] [place] [address] Sed Rateon 05-31-2020 Sed Rate 30 mm/h High 0-10 [facility] Comment on above: Performed By: #### B MP3, PHOS3, HEMOG, PT/AP, MG3 #### [address] [address] Sedimentation Rateon 020 Interpretation and review of laboratory results Abnormal [place] Sed Rate 30 mm/h High 0 - 10 mm/h [place] Test Performed by [facility], [address] [place] [id number] [place] [address] US RETROPERITONEAL LIMITEDon 05-31-2020 [facility], [facility] Results From [facility] - 05/31/2020 3:09 PM EDT Patient Name: ASCENCION WEIR ---Ultrasound--- Exam Date/Time 05/31/2020 10:03:11 EDT Exam US Retroperitoneal Limited Ordering Physician CHAN CASTRO Accession Number [id number] CPT4 Codes 82099 () Reason For Exam rule out hydronephrosis [...] KEVIN Transcribed Date and Time: 05/31/2020 3:07 [place] Patient Name: ASCENCION MONTOYA ---Ultrasound--- Exam Date/Time 05/31/2020 10:03:11 EDT Exam US Retroperitoneal Limited Ordering Physician CHAN CASTRO Accession Number [id number] CPT4 Codes 04937 () Reason For Exam rule out hydronephrosis [...] KEVIN Transcribed Date and Time: 05/31/2020 3:07 [place] US Retroperitoneal Limitedon 05-31-2020 US Retroperitoneal Limited Patient Name: ASCENCION WEIR Ultrasound Exam Date/Time 05/31/2020 10:03:11 EDT Exam US Retroperitoneal Limited Ordering Physician CHAN CASTRO Accession Number [id number] CPT4 Codes 15114 () Reason For Exam rule out hydronephrosis [...] Transcribed Date and Time: 05/31/2020 3:07 Normal [facility] Vancomycin Troughon 10-20 20 Vancomycin Trough 17.9 ug/mL Normal 15.0-20.0 [facility] Comment on above: Result Comment: . Performed By: #### H EMDF #### [address] [place] [address] Vancomycin, Troughon 020 Vancomycin Tr 17.9 ug/mL 15 - 20 ug/mL [place] Comment on above: . Test Performed by [facility], [address] [place] [address] [place], [place] CBC Auto Differentialon 10-0 -2019 Absolute Baso # 0.1 10*3/uL 0 - 0.2 10*3/uL [place] Absolute Neut # 8.5 10*3/uL High 1.8 - 7 10*3/uL [place] Basophils/100 WBC (Bld) 0.7 % 0 - 2 % [place] Eosinophils (Bld) [#/Vol] 0.4 10*3/uL 0 - 0.5 10*3/uL [place] Eosinophils/100 WBC (Bld) 3.2 % 1 - 6 % [place] Erythrocyte distribution width (RBC) [Ratio] 14.1 % 11.5 - 14.5 % [place] Granulocytes/100 WBC (Bld) 77.6 % 40 - 80 % [place] Hematocrit (Bld) [Volume fraction] 34.3 % Low 40 - 52 % [place] Hemoglobin (Bld) [Mass/Vol] 11.6 g/dL Low 13 - 18 g/dL [place] Interpretation and review of laboratory results Abnormal [place] Lymphocytes (Bld) [#/Vol] 0.8 10*3/uL Low 1 - 4.3 10*3/uL [place] Lymphocytes/100 WBC (Bld) 7.4 % Low 20 - 40 % [place] MCH (RBC) [Entitic mass] 30.3 pg 26 - 34 pg [place] MCHC (RBC) [Mass/Vol] 34.0 % 32 - 36 % [place] MCV (RBC) [Entitic vol] 89.3 fL 80 - 98 fL [place], [place] Monocytes (Bld) [#/Vol] 1.2 10*3/uL High 0 - 0.8 10*3/uL [place] Monocytes/100 WBC (Bld) 11.1 % High 2 - 10 % [place] Platelet mean volume (Bld) [Entitic vol] 7.7 fL 7.4 - 10.4 fL [place] Platelets (Bld) [#/Vol] 165 10*3/uL 140 - 440 10*3/uL [place] RBC (Bld) [#/Vol] 3.84 10*6/uL Low 4.4 - 5.9 10*6/uL [place] WBC (Bld) [#/Vol] 10.9 10*3/uL High 3.6 - 10.7 10*3/uL [place] Test Performed by [facility], [address] [place] [address] [place] Comp Metabolic Panelon 05-30 ALP [Catalytic activity/Vol] 132 U/L High 38-126 [facility] Comment on above: Performed By: #### B GLU #### [address] [address] [place], [place] ALT [Catalytic activity/Vol] 17 U/L Normal 0-49 [facility] Comment on above: Result Comment: The ALT test is performed by an updated assay method. Please note that the reference intervals have been changed and are now sex specific. Performed By: #### B GLU #### [address] [address] [place], [place] AST [Catalytic activity/Vol] 26 U/L Normal 15-46 [facility] Comment on above: Performed By: #### B GLU #### [address] [address] [place] Bilirubin [Mass/Vol] 0.6 mg/dL Normal 0.2-1.3 [facility] Comment on above: Performed By: #### B GLU #### [address] [address] [place] Calcium [Mass/Vol] 8.8 mg/dL Normal 8.4-10.4 [facility] Comment on above: Performed By: #### B GLU #### [facility] [address] [place] Glucose [Mass/Vol] 232 mg/dL High 70-100 [facility] Comment on above: Performed By: #### B GLU #### [facility] [address] [place] Protein [Mass/Vol] 7.2 g/dL Normal 6.3-8.2 [facility] Comment on above: Performed By: #### B GLU #### [facility] [address] [place] Urea nitrogen [Mass/Vol] 19 mg/dL Normal 7-20 [facility] Comment on above: Performed By: #### B GLU #### [address] [place] Anion gap [Moles/Vol] 13 Normal [facility] Comment on above: Performed By: #### B GLU #### [address] [place] CO2 [Moles/Vol] 25 mmol/L Normal 22-30 [facility] Comment on above: Performed By: #### B GLU #### [address] [place] Creatinine [Mass/Vol] 1.00 mg/dL Normal 0.52-1.25 [facility] Comment on above: Performed By: #### B GLU #### [facility] [address] [place] GFR/1.73 sq M predicted among blacks MDRD (S/P/Bld) [Vol rate/Area] 86.9 mL/min/{1.73_m2} Normal >60 [facility] Comment on above: Performed By: #### B GLU #### [facility] [address] [place] GFR/1.73 sq M predicted among non-blacks MDRD (S/P/Bld) [Vol rate/Area] 75.0 mL/min/{1.73_m2} Normal >60 [facility] Comment on above: Result Comment: KDIG [...] secretion. Performed By: #### B GLU #### [address] [place] Potassium [Moles/Vol] 4.6 mmol/L Normal 3.5-5.1 [facility] Comment on above: Performed By: #### B GLU #### [address] [place] Sodium [Moles/Vol] 137 mmol/L Normal 135-145 [facility] Comment on above: Performed By: #### B GLU #### [address] [address] [place] Albumin [Mass/Vol] 4.0 g/dL Normal 3.5-5.0 [facility] Comment on above: Performed By: #### B GLU #### [address] [address] [place] Chloride [Moles/Vol] 99 mmol/L Normal 98-107 [facility] Comment on above: Performed By: #### B GLU #### [address] Comprehensive Metabolic Pane servando 05-30-2020 Albumin [Mass/Vol] 4.0 g/dL 3.5 - 5 g/dL [facility], [place] ALP [Catalytic activity/Vol] 132 U/L High 38 - 126 U/L [place] ALT [Catalytic activity/Vol] 17 U/L 0 - 49 U/L [place] Comment on above: The ALT test is perf ormed by an updated assay method. Please note that the reference intervals have been changed and are now sex specific. Anion gap [Moles/Vol] 13 mmol/L [place] AST [Catalytic activity/Vol] 26 U/L 15 - 46 U/L [place] Bilirubin Ql (U) 0.6 mg/dL 0.2 - 1.3 mg/dL [place] Calcium [Mass/Vol] 8.8 mg/dL 8.4 - 10. 4 mg/dL [place] Chloride [Moles/Vol] 99 mmol/L 98 - 10 7 mmol/L [place] CO2 [Moles/Vol] 25 mmol/L 22 - 30 mmol/L [place] Creatinine [Mass/Vol] 1 mg/dL 0.52 - 1.25 mg/dL [place] EGFR IF NonAfrican [place] Citizen 75.0 mL/min >60 [place] Comment on above: KDIGO guidelines pro [...] MDRD (S/P/Bld) [Vol rate/Area] 86.9 mL/min/{1.73_m2} >60 [place] Glucose [Mass/Vol] 232 mg/dL High 70 - 100 mg/dL [place] Potassium [Moles/Vol] 4.6 mmol/L 3.5 - 5.1 mmol/L [place] Protein [Mass/Vol] 7.2 g/dL 6.3 - 8.2 g/dL [place] Sodium [Moles/Vol] 137 mmol/L 135 - 145 mmol/L [place] Urea nitrogen [Mass/Vol] 19 mg/dL 7 - 20 mg/dL [place] ECHO Complete 2D W Doppler W Coloron 05-30-2020 A[place], [facility] Cardiology Results From [facility] - 05/30/2020 4:06 PM EDT TRANSTHORACIC ECHOCARDIOGRAM PATIENT: Carmella, STUDY DATE: 05/30/2020 Ascencion Aponte : 1950 AGE: 69 HT/WT: 172.7 cm (68 98.4 kg (216.5 in) lb) GENDER: M BP: 122 / 63 LOCATION: [facility] PATIENT Inpatient main STATUS: *ORDERING PHYSICIAN: * Gabe Savage *READING PHYSICIAN: * Odalys Bell *CLIPPER COUNTERS: * Aretha Jiang INDICATIONS: Abscess sternal. CONCLUSIONS [...] by Odalys Bell 05/30/2020 16:05 Prior Signatures: [place] TRANSTHORACIC ECHOCARDIOGRAM PATIENT: Carmella, STUDY DATE: 05/30/2020 Ascencion Aponte : 1950 AGE: 69 HT/WT: 172.7 cm (68 98.4 kg (216.5 in) lb) GENDER: M BP: 122 / 63 LOCATION: [facility] PATIENT Inpatient main STATUS: *ORDERING PHYSICIAN: * Gabe Savage *READING PHYSICIAN: * Odalys Bell *CLIPPER COUNTERS: * Aretha Jiang INDICATIONS: Abscess sternal. CONCLUSIONS [...] by Odalys Bell 05/30/2020 16:05 Prior Signatures: [place] Echo Complete w/wo Contrasto n 05-30-2020 Echo Complete w/wo Contrast Patient Name: ASCENCION WEIR Ultrasound Exam Date/Time 05/30/2020 15:15:46 EDT Exam Echo Complete w/wo Contrast Ordering Physician NINA SAVAGE MATTHEW R. Accession Number [id number] Reason For Exam Abscess Sternal Report TRANSTHORACIC ECHOCARDIOGRAM PATIENT: Carmella, STUDY DATE: 05/30/2020 Ascencion Aponte : 1950 AGE: 69 HT/WT: 172.7 cm (68 98.4 kg (216.5 in) lb) GENDER: M BP: 122 / 63 LOCATION: [facility] PATIENT Inpatient main STATUS: *ORDERING PHYSICIAN: * Gabe Savage *READING PHYSICIAN: * Alajaji, Wissam *CLIPPER COUNTERS: * Aretha Jiang INDICATIONS: Abscess sternal. CONCLUSIONS [...] RA area, ES, A4C (L) 9 cm^2 10 - 18 Right ventricle Value 05/08/2020 Reference RV [...] Time: 05/30/2020 4:06 pm Signed by: MD MARIE, [facility] Normal [facility] Glucose,Bedsideon 05-30-2020 Glucose [Mass/Vol] 109 mg/dL High 70-100 [facility] Comment on above: Result Comment: Test performed by glucose meter. Results may be 10%-15% lower than serum/plasma values. (CLIA ID [id number]) Performed By: #### B GLU #### [facility] [address] [place] [address] Glucose [Mass/Vol] 80 mg/dL Normal 70-100 [facility] Comment on above: Result Comment: Test performed by glucose meter. Results may be 10%-15% lower than serum/plasma values. (CLIA ID [id number]) Performed By: #### B MP3, PHOS3, HEMOG, PT/AP, MG3 #### [facility] [address] [place] [address] Glucose [Mass/Vol] 84 mg/dL Normal 70-100 [facility] Comment on above: Result Comment: Test performed by glucose meter. Results may be 10%-15% lower than serum/plasma values. (CLIA ID [id number]) Performed By: #### B MP3, PHOS3, HEMOG, PT/AP, MG3 #### [facility] [address] [place] [address] Glucose [Mass/Vol] 61 mg/dL Low 70-100 [facility] Comment on above: Result Comment: Test performed by glucose meter. Results may be 10%-15% lower than serum/plasma values. (CLIA ID [id number]) Performed By: #### B GLU #### [facility] [address] [place] [address] Glucose [Mass/Vol] 191 mg/dL High 70-100 [place] Comment on above: Test performed by gl ucose meter. Results may be 10%-15% lower than serum/plasma values. (CLIA ID [id number]) Result Comment: Test performed by glucose meter. Results may be 10%-15% lower than serum/plasma values. (CLIA ID [id number]) Performed By: #### B MP3, PHOS3, HEMOG, PT/AP, MG3 #### [facility] [address] [place] [address] Glucose [Mass/Vol] 354 mg/dL High 70-100 [facility] Comment on above: Result Comment: Test performed by glucose meter. Results may be 10%-15% lower than serum/plasma values. (CLIA ID [id number]) Performed By: #### H EMDF #### [address] [place] [address] Glucose [Mass/Vol] 350 mg/dL High 70-100 [facility] Comment on above: Result Comment: Test performed by glucose meter. Results may be 10%-15% lower than serum/plasma values. (CLIA ID [id number]) Performed By: #### B MP3, PHOS3, HEMOG, PT/AP, MG3 #### [facility] [address] [place] [address] Glucose [Mass/Vol] 146 mg/dL High 70-[address] [place] [address] Comment on above: Result Comment: Test performed by glucose meter. Results may be 10%-15% lower than serum/plasma values. (CLIA ID [id number]) Performed By: #### B GLU #### [address] [place] [address] Glucose [Mass/Vol] 125 mg/dL High 70-[address] [place] [address] Comment on above: Result Comment: Test performed by glucose meter. Results may be 10%-15% lower than serum/plasma values. (CLIA ID [id number]) Performed By: #### B MP3, PHOS3, HEMOG, PT/AP, MG3 #### [facility] [address] [place] [address] Glucose [Mass/Vol] 210 mg/dL High 70-100 [facility] Comment on above: Result Comment: Test performed by glucose meter. Results may be 10%-15% lower than serum/plasma values. (CLIA ID [id number]) Performed By: #### H EMDF #### [facility] [address] [place] [address] Hemogram w/ Autodiffon 05-30 Abs Baso Cnt 0.1 10*3/uL Normal 0.0-0.2 [facility] Comment on above: Performed By: #### B GLU #### [facility] [address] [place] [address] Abs Neutrophile Cnt 8.5 10*3/uL High 1.8-7.0 [facility] Comment on above: Performed By: #### B GLU #### [address] [place] Basophils/100 WBC (Bld) 0.7 % Normal 0.0-2.0 [facility] Comment on above: Performed By: #### B GLU #### [address] [place] Eosinophils (Bld) [#/Vol] 0.4 10*3/uL Normal 0.0-0.5 [facility] Comment on above: Performed By: #### B GLU #### [address] [place] Eosinophils/100 WBC (Bld) 3.2 % Normal 1.0-6.0 [facility] Comment on above: Performed By: #### B GLU #### [address] [place] Erythrocyte distribution width (RBC) [Ratio] 14.1 % Normal 11.5-14.5 [facility] Comment on above: Performed By: #### B GLU #### [address] [address] [place] Granulocytes/100 WBC (Bld) 77.6 % Normal 40.0-80.0 [facility] Comment on above: Performed By: #### B GLU #### [address] [place] Hematocrit (Bld) [Volume fraction] 34.3 % Low 40.0-52.0 [facility] Comment on above: Performed By: #### B GLU #### [address] [place] Hemoglobin (Bld) [Mass/Vol] 11.6 g/dL Low 13.0-18.0 [facility] Comment on above: Performed By: #### B GLU #### [address] [place] Lymphocytes (Bld) [#/Vol] 0.8 10*3/uL Low 1.0-4.3 [facility] Comment on above: Performed By: #### B GLU #### [address] [address] [place] Lymphocytes/100 WBC (Bld) 7.4 % Low 20.0-40.0 [facility] Comment on above: Performed By: #### B GLU #### [address] [place] MCH (RBC) [Entitic mass] 30.3 pg Normal 26.0-34.0 [facility] Comment on above: Performed By: #### B GLU #### [address] [address] [place] MCHC (RBC) [Mass/Vol] 34.0 % Normal 32.0-36.0 [facility] Comment on above: Performed By: #### B GLU #### [address] MCV (RBC) [Entitic vol] 89.3 fL Normal 80.0-98.0 [facility] Comment on above: Performed By: #### B GLU #### [address] [place] Monocytes (Bld) [#/Vol] 1.2 10*3/uL High 0.0-0.8 [facility] Comment on above: Performed By: #### B GLU #### [address] [place] Monocytes/100 WBC (Bld) 11.1 % High 2.0-10.0 [facility] Comment on above: Performed By: #### B GLU #### [address] [address] [place] Platelet mean volume (Bld) [Entitic vol] 7.7 fL Normal 7.4-10.4 [facility] Comment on above: Performed By: #### B GLU #### [facility] [address] [place] Platelets (Bld) [#/Vol] 165 10*3/uL Normal 140-440 [facility] Comment on above: Performed By: #### B GLU #### [address] [address] [place] RBC (Bld) [#/Vol] 3.84 10*6/uL Low 4.40-5.90 [facility] Comment on above: Performed By: #### B GLU #### [address] [place] WBC (Bld) [#/Vol] 10.9 10*3/uL High 3.6-10.7 [facility] Comment on above: Performed By: #### B GLU #### [address] [place] Hepatic Functionon 0 Bilirubin.direct [Mass/Vol] 0.0 mg/dL Normal 0.0-0.3 [facility] Comment on above: Performed By: #### Sandie G3, BMP3 #### [address] [place] Hepatic Function Panelon Bilirubin.direct [Mass/Vol] 0.0 mg/dL 0 - 0.3 mg/dL [facility], [place] Lipid Panelon 05-30-2020 Cholesterol in HDL [Mass/Vol] 28 mg/dL Low 40-60 [facility] Comment on above: Performed By: #### M G3, BMP3 #### [address] [place] Cholesterol.total/Peg sterol in HDL [Mass ratio] 3 Normal [facility] Comment on above: Result Comment: Ref Range: < 3 Low Risk for CHD 3-6 Mod Risk for CHD > 6 High Risk for CHD Performed By: #### M G3, BMP3 #### [address] [place] [address] Protein [Mass/Vol] 43 mg/dL Normal <100 [facility] Comment on above: Performed By: #### Sandie Cobb BMP3 #### [facility] [address] [place] [address] Triglyceride [Mass/Vol] 56 mg/dL Normal <150 [facility] [facility] Comment on above: Performed By: #### Sandie Cobb BMP3 #### [facility] [address] [place] [address] Cholesterol [Mass/Vol] 82 mg/dL Normal < 200 [facility] Comment on above: Performed By: #### KIARA Finnegan3 #### [facility] [address] [place] [address] Cholesterol [Mass/Vol] 82 mg/dL <200 [place], [place] Cholesterol in HDL [Mass/Vol] 28 mg/dL Low 40 - 60 mg/dL [place] Cholesterol in LDL [Mass/Vol] 43 mg/dL <100 [place] Cholesterol.total/Peg sterol in HDL [Mass ratio] 3 {ratio} [place] Comment on above: Ref Range: < 3 Low Risk for CHD 3-6 Mod Risk for CHD > 6 High Risk for CHD Triglyceride [Mass/Vol] 56 mg/dL <150 M [place], [place] Magnesiumon 05-30-2020 Magnesium [Mass/Vol] 1.2 mg/dL Low 1.6-2.3 [facility] Comment on above: Performed By: #### Sandie Cobb BMP3 #### [facility] [address] [place] [address] Magnesium [Mass/Vol] 1.2 mg/dL Low 1.6 - 2 .3 mg/dL [place] Otheron 05-30-2020 Interpretation and review of laboratory results Abnormal [facility], [place] Test Performed by [facility], [facility] [place] [address] [facility], [place] Interpretation and review of laboratory results Abnormal [facility] [place] [place] Test Performed by [facility], [facility] [place] [address] [facility] Interpretation and review of laboratory results Abnormal [facility] [place] Test Performed by [facility], [address] [place] [address] [facility] POCT Glucoseon 05-30-2020 Glucose [Mass/Vol] 112 mg/dL High 70 - 100 mg/dL [facility] Comment on above: Test performed by gl ucose meter. Results may be 10%-15% lower than serum/plasma values. (CLIA ID [id number]) Interpretation and review of laboratory results Abnormal [facility] Test Performed by [facility], [address] [place] [address] [facility] Glucose [Mass/Vol] 107 mg/dL High 70 - 100 mg/dL [facility] Comment on above: Test performed by gl ucose meter. Results may be 10%-15% lower than serum/plasma values. (CLIA ID [id number]) Interpretation and review of laboratory results Abnormal [facility] Test Performed by [facility], [address] [place] [address] [facility] Glucose [Mass/Vol] 109 mg/dL High 70 - 100 mg/dL [facility] Comment on above: Test performed by gl ucose meter. Results may be 10%-15% lower than serum/plasma values. (CLIA ID [id number]) Interpretation and review of laboratory results Abnormal [facility] Test Performed by [facility], [address] [place] [address] [facility] Glucose [Mass/Vol] 80 mg/dL 70 - 100 mg/dL [facility] Comment on above: Test performed by gl ucose meter. Results may be 10%-15% lower than serum/plasma values. (CLIA ID [id number]) Test Performed by [facility], [address] [place] [address] [facility] Glucose [Mass/Vol] 84 mg/dL 70 - 100 mg/dL [facility] Comment on above: Test performed by gl ucose meter. Results may be 10%-15% lower than serum/plasma values. (CLIA ID [id number]) Test Performed by [facility], [address] [place] [address] [place] Glucose [Mass/Vol] 61 mg/dL Low 70 - 100 mg/dL [place] Comment on above: Test performed by gl ucose meter. Results may be 10%-15% lower than serum/plasma values. (CLIA ID [id number]) Glucose [Mass/Vol] 354 mg/dL High 70 - 100 mg/dL [place] Comment on above: Test performed by gl ucose meter. Results may be 10%-15% lower than serum/plasma values. (CLIA ID [id number]) Glucose [Mass/Vol] 350 mg/dL High 70 - 100 mg/dL [place] Comment on above: Test performed by gl ucose meter. Results may be 10%-15% lower than serum/plasma values. (CLIA ID [id number]) Glucose [Mass/Vol] 146 mg/dL High 70 - 100 mg/dL [place] Comment on above: Test performed by gl ucose meter. Results may be 10%-15% lower than serum/plasma values. (CLIA ID [id number]) Interpretation and review of laboratory results Abnormal [facility], [place] Test Performed by [facility], [address] [place] [address] [place] Glucose [Mass/Vol] 125 mg/dL High 70 - 100 mg/dL [place] Comment on above: Test performed by gl ucose meter. Results may be 10%-15% lower than serum/plasma values. (CLIA ID [id number]) Interpretation and review of laboratory results Abnormal [facility], [place] Test Performed by [facility], [address] [place] [address] [place] Glucose [Mass/Vol] 210 mg/dL High 70 - 100 mg/dL [place] Comment on above: Test performed by gl ucose meter. Results may be 10%-15% lower than serum/plasma values. (CLIA ID [id number]) Interpretation and review of laboratory results Abnormal [place] Test Performed by [facility], [address] [place] [id number] [place] [address] PROTIME INRon 05-30-2020 INR Coag (PPP) [Relative time] 1.5 {INR} [place] Comment on above: Recommended Anticoag ulant [...] Interpretation and review of laboratory results Abnormal [place] PT Coag (PPP) [Time] 15.9 s High 9 - 12 s [place] Comment on above: . Test Performed by [facility], [address] [place] [id number] [place] [address] Phosphoruson 05-30-2020 Phosphate [Mass/Vol] 3.6 mg/dL Normal 2.5-4.5 [facility] Comment on above: Performed By: #### M G3, BMP3 #### [address] [address] Phosphate [Mass/Vol] 3.6 mg/dL 2.5 - 4 .5 mg/dL [place] Prothrombin Timeon 0 INR Coag (PPP) [Relative time] 1.5 High 0.9-1.1 [facility] Comment on above: Result Comment: Naeem [...] Infarction Performed By: #### B GLU #### [facility] [address] [place] [address] PT Coag (PPP) [Time] 15.9 s High 9.0-12.0 [facility] Comment on above: Result Comment: . Performed By: #### B GLU #### [facility] [address] [place] [address] Protime AND APTTon 0 aPTT Coag (Bld) [Time] 32.8 s High 20.0-30.5 [facility] Comment on above: Result Comment: NOTE : The therapeutic time for Heparin anticoagulation, based on Xa activity inhibition, is an APTT of 46-80 seconds. Performed By: #### Sandie Cobb, BMP3 #### [facility] [address] [place] [address] INR Coag (PPP) [Relative time] 1.5 High 0.9-1.1 [facility] Comment on above: Result Comment: Naeem [...] Performed By: #### Sandie G3, BMP3 #### [facility] [address] [place] [address] PT Coag (PPP) [Time] 15.9 s High 9.0-12.0 [facility] Comment on above: Result Comment: . Performed By: #### Sandie G3, BMP3 #### [facility] [address] [place] [address] Protime/INR & PTTon 05-30-20 20 aPTT Coag (Bld) [Time] 32.8 s High 20 - 30.5 s [facility], [place] Comment on above: NOTE: The therapeuti c time for Heparin anticoagulation, based on Xa activity inhibition, is an APTT of 46-80 seconds. INR Coag (PPP) [Relative time] 1.5 {INR} [place] Comment on above: Recommended Anticoag ulant [...] Interpretation and review of laboratory results Abnormal [place] PT Coag (PPP) [Time] 15.9 s High 9 - 12 s [place] Comment on above: . Test Performed by [facility], [address] [place] [address] Troponinon 05-30-2020 Troponin I.cardiac [Mass/Vol] ng/mL 0 - 0.034 ng/mL [place] Comment on above: . Test Performed by [facility], [address] [place] [address] Troponin Ion 05-30-2020 Troponin I.cardiac [Mass/Vol] ng/mL Normal 0.000-0.034 [facility] Comment on above: Result Comment: . Performed By: #### M G3, BMP3 #### [address] [address] CR Chest PA/LATon 05-19-2020 CR Chest PA/LAT Patient Name: ASCENCION MONTOYA Diagnostic Radiology Exam Date/Time 05/19/2020 14:44:12 EDT Exam CR Chest PA/LAT Ordering Physician HONEY GREGORIO JAN C Accession Number [id number] CPT4 Codes 86164 () Reason For Exam Other forms of [...] Transcribed Date and Time: 05/19/2020 5:43 Normal [facility] XR CHEST (2 VW)on 05-19-2020 Patient Name: ASCENCION MONTOYA ---Diagnostic Radiology--- Exam Date/Time 05/19/2020 14:44:12 EDT Exam CR Chest PA/LAT Ordering Physician HONEY GREGORIO JAN C Accession Number [id number] CPT4 Codes 76277 () Reason For Exam Other forms of [...] R Transcribed Date and Time: 05/19/2020 5:43 [facility], [facility] Incoming Radiology Results From [facility] - 05/19/2020 5:45 PM EDT Patient Name: ASCENCION WEIR ---Diagnostic Radiology--- Exam Date/Time 05/19/2020 14:44:12 EDT Exam CR Chest PA/LAT Ordering Physician HONEY GREGORIO MIUGE Saleem Accession Number [id number] CPT4 Codes 22788 () Reason For Exam Other forms of [...] Dictated: 05/19/2020 5:43 pm Dictating Physician: MD PANCHLA JONATHAN R Signed Date and Time: 05/19/2020 5:44 pm Signed by: MD PANCHAL JONATHAN R Transcribed Date and Time: 05/19/2020 5:43 [place] Basic Metabolic Panelon 04-29 Anion gap [Moles/Vol] 7 Normal [facility] Comment on above: Performed By: #### Sandie G3, BMP3 #### [facility] [address] [place] [address] Calcium [Mass/Vol] 8.5 mg/dL Normal 8.4-10.4 [facility] Comment on above: Performed By: #### Sandie G3, BMP3 #### [facility] [address] [place] [address] CO2 [Moles/Vol] 27 mmol/L Normal 22-30 [facility] Comment on above: Performed By: #### Sandie G3, BMP3 #### [facility] [address] [place] [address] Glucose [Mass/Vol] 141 mg/dL High 70-100 [facility] Comment on above: Performed By: #### Sandie G3, BMP3 #### [facility] [address] [place] [address] Urea nitrogen [Mass/Vol] 19 mg/dL Normal 7-20 [facility] Comment on above: Performed By: #### Sandie G3, BMP3 #### [facility] [address] [place] [address] Creatinine [Mass/Vol] 0.81 mg/dL Normal 0.52-1.25 [facility] Comment on above: Performed By: #### Sandie G3, BMP3 #### [facility] [address] [place] [address] GFR/1.73 sq M predicted among blacks MDRD (S/P/Bld) [Vol rate/Area] mL/min/{1.73_m2} Normal >60 [facility] Comment on above: Performed By: #### M G3, BMP3 #### [facility] [address] [place] [address] GFR/1.73 sq M predicted among non-blacks MDRD (S/P/Bld) [Vol rate/Area] 89.0 mL/min/{1.73_m2} Normal >60 [facility] Comment on above: Result Comment: KDIG [...] Performed By: #### Sandie G3, BMP3 #### [facility] [address] Chloride [Moles/Vol] 101 mmol/L Normal 98-107 [facility] Comment on above: Performed By: #### Sandie G3, BMP3 #### [facility] [address] [place] [address] Potassium [Moles/Vol] 4.3 mmol/L Normal 3.5-5.1 [facility] Comment on above: Performed By: #### M G3, BMP3 #### [facility] [address] Sodium [Moles/Vol] 134 mmol/L Low 135-145 [facility] Comment on above: Performed By: #### M G3, BMP3 #### [facility] [address] Anion gap [Moles/Vol] 7 mmol/L [place], [place] Calcium [Mass/Vol] 8.5 mg/dL 8.4 - 10. 4 mg/dL [place] Chloride [Moles/Vol] 101 mmol/L 98 - 10 7 mmol/L [place] CO2 [Moles/Vol] 27 mmol/L 22 - 30 mmol/L [place] Creatinine [Mass/Vol] 0.81 mg/dL 0.52 - 1.25 mg/dL [place] EGFR IF NonAfrican [place] Citizen 89.0 mL/min >60 [place] Comment on above: KDIGO guidelines pro [...] MDRD (S/P/Bld) [Vol rate/Area] mL/min/{1.73_m2} >60 mL/min [place] Glucose [Mass/Vol] 141 mg/dL High 70 - 100 mg/dL [place] Interpretation and review of laboratory results Abnormal [place] Potassium [Moles/Vol] 4.3 mmol/L 3.5 - 5.1 mmol/L [place] Sodium [Moles/Vol] 134 mmol/L Low 135 - 145 mmol/L [place] Urea nitrogen [Mass/Vol] 19 mg/dL 7 - 20 mg/dL [place] CBCon 05-14-2020 Erythrocyte distribution width (RBC) [Ratio] 13.5 % 11.5 - 14.5 % [place] Hematocrit (Bld) [Volume fraction] 25.0 % Low 40 - 52 % [place] Hemoglobin (Bld) [Mass/Vol] 8.9 g/dL Low 13 - 18 g/dL [place] Interpretation and review of laboratory results Abnormal [place] MCH (RBC) [Entitic mass] 31.7 pg 26 - 34 pg [place] MCHC (RBC) [Mass/Vol] 35.5 % 32 - 36 % [place] MCV (RBC) [Entitic vol] 89.3 fL 80 - 98 fL [place] Platelet mean volume (Bld) [Entitic vol] 7.5 fL 7.4 - 10.4 fL [place] Platelets (Bld) [#/Vol] 155 10*3/uL 140 - 440 10*3/uL [place] RBC (Bld) [#/Vol] 2.80 10*6/uL Low 4.4 - 5.9 10*6/uL [place] WBC (Bld) [#/Vol] 6.1 10*3/uL 3.6 - 10.7 10*3/uL [place] Test Performed by [facility], [address] [place] [id number] [place] [address] CR Chest Portableon 05-14-20 20 CR Chest Portable Patient Name: ASCENCION MONTOYA Diagnostic Radiology Exam Date/Time 05/14/2020 05:21:09 EDT Exam CR Chest Portable Ordering Physician JEAN CLAUDE KILLIAN Accession Number [id number] CPT4 Codes 47089 () Reason For Exam Shortness of breath [...] Transcribed Date and Time: 05/14/2020 5:25 Normal [facility] Echocardiogram transesophage jan 05-14-2020 TRANSESOPHAGEAL ECHOCARDIOGRAM Intraoperative-Pre and Post Pump PATIENT: Carmella, STUDY DATE: 05/08/2020 Ascencion Aponte : 1950 AGE: 69 HT/WT: 172.7 cm (68 99.8 kg (219.5 in) lb) GENDER: M BP: LOCATION: [facility] PATIENT Inpatient main STATUS: *ORDERING PHYSICIAN: * Gabe Savage *READING PHYSICIAN: * Rachael Murry *CLIPPER COUNTERS: * Margie MAYA MD INDICATIONS: Coronary artery [...] Rachael Murry MD 05/14/2020 10:50 Prior Signatures: [facility], [place] [facility], [facility] Incoming Cardiology Results From [facility] - 05/14/2020 10:52 AM EDT TRANSESOPHAGEAL ECHOCARDIOGRAM Intraoperative-Pre and Post Pump PATIENT: Carmella, STUDY DATE: 05/08/2020 Ascencion Aponte : 1950 AGE: 69 HT/WT: 172.7 cm (68 99.8 kg (219.5 in) lb) GENDER: M BP: LOCATION: [facility] PATIENT Inpatient main STATUS: *ORDERING PHYSICIAN: * Gabe Savage *READING PHYSICIAN: * Rachael Murry *CLIPPER COUNTERS: * Margie MAYA MD INDICATIONS: Coronary artery [...] Rachael Murry MD 05/14/2020 10:50 Prior Signatures: [place], [place] Glucose,Bedsideon 05-14-2020 Glucose [Mass/Vol] 177 mg/dL High 70-100 [facility] Comment on above: Result Comment: Test performed by glucose meter. Results may be 10%-15% lower than serum/plasma values. (CLIA ID [id number]) Performed By: #### B GLU #### [facility] [address] [place] [address] Hemogramon 05-14-2020 Erythrocyte distribution width (RBC) [Ratio] 13.5 % Normal 11.5-14.5 [facility] Comment on above: Performed By: #### M G3, BMP3 #### [facility] [address] [place], [place] Hematocrit (Bld) [Volume fraction] 25.0 % Low 40.0-52.0 [facility] Comment on above: Performed By: #### Sandie G3, BMP3 #### [place] [address] [place] Hemoglobin (Bld) [Mass/Vol] 8.9 g/dL Low 13.0-18.0 [facility] Comment on above: Performed By: #### Sandie G3, BMP3 #### [place] [place] MCH (RBC) [Entitic mass] 31.7 pg Normal 26.0-34.0 [facility] Comment on above: Performed By: #### Sandie G3, BMP3 #### [place] [address] [place] MCHC (RBC) [Mass/Vol] 35.5 % Normal 32.0-36.0 [facility] Comment on above: Performed By: #### Sandie G3, BMP3 #### [place] [address] [place] MCV (RBC) [Entitic vol] 89.3 fL Normal 80.0-98.0 [facility] Comment on above: Performed By: #### Sandie G3, BMP3 #### [place] [place] Platelet mean volume (Bld) [Entitic vol] 7.5 fL Normal 7.4-10.4 [facility] Comment on above: Performed By: #### Sandei G3, BMP3 #### [place] [place] Platelets (Bld) [#/Vol] 155 10*3/uL Normal 140-440 [facility] Comment on above: Performed By: #### Sandie G3, BMP3 #### [place] [place] RBC (Bld) [#/Vol] 2.80 10*6/uL Low 4.40-5.90 [facility] Comment on above: Performed By: #### Sandie G3, BMP3 #### [facility] [address] [place] [address] WBC (Bld) [#/Vol] 6.1 10*3/uL Normal 3.6-10.7 [facility] Comment on above: Performed By: #### M G3, BMP3 #### [facility] [address] [place] [address] Magnesiumon 05-14-2020 Magnesium [Mass/Vol] 1.9 mg/dL Normal 1.6-2.3 [facility] Comment on above: Performed By: #### M G3, BMP3 #### [facility] [address] [place] [address] Magnesium [Mass/Vol] 1.9 mg/dL 1.6 - 2 .3 mg/dL [place] Otheron 05-14-2020 Test Performed by [id number] [place] [address] POCT Glucoseon 05-14-2020 Glucose [Mass/Vol] 177 mg/dL High 70 - 100 mg/dL [place] Comment on above: Test performed by gl ucose meter. Results may be 10%-15% lower than serum/plasma values. (CLIA ID [id number]) Interpretation and review of laboratory results Abnormal [place] Test Performed by [facility], [address] [place] [id number] [place] [address] Prothrombin Timeon 0 INR Coag (PPP) [Relative time] 1.4 High 0.9-1.1 [facility] Comment on above: Result Comment: Naeem [...] Performed By: #### M G3, BMP3 #### [address] [address] [place] [address] PT Coag (PPP) [Time] 14.6 s High 9.0-12.0 [facility] Comment on above: Result Comment: . Performed By: #### M BMP3 #### [facility] [address] [place] [address] Protime-INRon 05-14-2020 INR Coag (PPP) [Relative time] 1.4 {INR} [place] Comment on above: Recommended Anticoag ulant [...] Interpretation and review of laboratory results Abnormal [place] PT Coag (PPP) [Time] 14.6 s High 9 - 12 s [place] Comment on above: . Test Performed by [facility], [address] [place] [address] [place] XR CHEST PORTABLEon 05-14-[address] [facility] Incoming Radiology Results From [facility] - 05/14/2020 5:28 AM EDT Patient Name: ASCENCION WEIR ---Diagnostic Radiology--- Exam Date/Time 05/14/2020 05:21:09 EDT Exam CR Chest Portable Ordering Physician JEAN CLAUDE KILLIAN Accession Number [id number] CPT4 Codes 68597 () Reason For Exam Shortness of breath [...] DIANE Transcribed Date and Time: 05/14/2020 5:25 [place] Patient Name: ASCENCION MONTOYA ---Diagnostic Radiology--- Exam Date/Time 05/14/2020 05:21:09 EDT Exam CR Chest Portable Ordering Physician JEAN CLAUDE KILLIAN Accession Number [id number] CPT4 Codes 47032 () Reason For Exam Shortness of breath [...] DIANE Transcribed Date and Time: 05/14/2020 5:25 [place] Basic Metabolic Panelon 04-29 Calcium [Mass/Vol] 8.4 mg/dL Normal 8.4-10.4 [facility] Comment on above: Performed By: #### B GLU #### [facility] [address] [place] Anion gap [Moles/Vol] 7 Normal [facility] Comment on above: Performed By: #### B GLU #### [facility] [address] [place] CO2 [Moles/Vol] 28 mmol/L Normal 22-30 [facility] Comment on above: Performed By: #### B GLU #### [facility] [address] [place] Creatinine [Mass/Vol] 0.94 mg/dL Normal 0.52-1.25 [facility] Comment on above: Performed By: #### B GLU #### [facility] [address] [place] [address] GFR/1.73 sq M predicted among blacks MDRD (S/P/Bld) [Vol rate/Area] mL/min/{1.73_m2} Normal >60 [facility] Comment on above: Performed By: #### B GLU #### [facility] [address] [place] [address] GFR/1.73 sq M predicted among non-blacks MDRD (S/P/Bld) [Vol rate/Area] 80.8 mL/min/{1.73_m2} Normal >60 [facility] Comment on above: Result Comment: KDIG [...] secretion. Performed By: #### B GLU #### [facility] [address] [place] [address] Glucose [Mass/Vol] 150 mg/dL High 70-100 [facility] Comment on above: Performed By: #### B GLU #### [facility] [address] [place] [address] Urea nitrogen [Mass/Vol] 27 mg/dL High 7-20 [facility] Comment on above: Performed By: #### B GLU #### [place] [place] [address] Chloride [Moles/Vol] 98 mmol/L Normal 98-107 [facility] Comment on above: Performed By: #### B GLU #### [facility] [address] [place] [address] Potassium [Moles/Vol] 4.1 mmol/L Normal 3.5-5.1 [facility] Comment on above: Performed By: #### B GLU #### [facility] [address] [place] Sodium [Moles/Vol] 133 mmol/L Low 135-145 [facility] Comment on above: Performed By: #### B GLU #### [facility] [address] [place] Anion gap [Moles/Vol] 7 mmol/L [place] Calcium [Mass/Vol] 8.4 mg/dL 8.4 - 10. 4 mg/dL [place] Chloride [Moles/Vol] 98 mmol/L 98 - 10 7 mmol/L [place] CO2 [Moles/Vol] 28 mmol/L 22 - 30 mmol/L [place] Creatinine [Mass/Vol] 0.94 mg/dL 0.52 - 1.25 mg/dL [place] EGFR IF NonAfrican [place] Citizen 80.8 mL/min >60 [place] Comment on above: KDIGO guidelines pro [...] MDRD (S/P/Bld) [Vol rate/Area] mL/min/{1.73_m2} >60 mL/min [place] Glucose [Mass/Vol] 150 mg/dL High 70 - 100 mg/dL [place] Interpretation and review of laboratory results Abnormal [place] Potassium [Moles/Vol] 4.1 mmol/L 3.5 - 5.1 mmol/L [place] Sodium [Moles/Vol] 133 mmol/L Low 135 - 145 mmol/L [place] Urea nitrogen [Mass/Vol] 27 mg/dL High 7 - 20 mg/dL [place] CBCon 05-13-2020 Erythrocyte distribution width (RBC) [Ratio] 13.4 % 11.5 - 14.5 % [place] Hematocrit (Bld) [Volume fraction] 23.9 % Low 40 - 52 % [place] Hemoglobin (Bld) [Mass/Vol] 8.6 g/dL Low 13 - 18 g/dL [place] Interpretation and review of laboratory results Abnormal [place] MCH (RBC) [Entitic mass] 31.6 pg 26 - 34 pg [place] MCHC (RBC) [Mass/Vol] 35.9 % 32 - 36 % [place] MCV (RBC) [Entitic vol] 87.9 fL 80 - 98 fL [place] Platelet mean volume (Bld) [Entitic vol] 7.7 fL 7.4 - 10.4 fL [place] Platelets (Bld) [#/Vol] 128 10*3/uL Low 140 - 440 10*3/uL [place] RBC (Bld) [#/Vol] 2.72 10*6/uL Low 4.4 - 5.9 10*6/uL [place] WBC (Bld) [#/Vol] 5.9 10*3/uL 3.6 - 10.7 10*3/uL [place] Test Performed by [facility], [address] [place] [address] [place] CR Chest Portableon 05-13-20 20 CR Chest Portable Patient Name: ASCENCION MONTOYA Diagnostic Radiology Exam Date/Time 05/13/2020 05:28:43 EDT Exam CR Chest Portable Ordering Physician JEAN CLAUDE KILLIAN Accession Number [id number] CPT4 Codes 94963 () Reason For Exam Shortness of breath [...] Transcribed Date and Time: 05/13/2020 5:39 Normal [facility] EKG 12 Leadon 05-13-2020 [facility], [facility] Incoming Cardiology Results From [facility] - 05/13/2020 3:55 PM EDT [facility] Test Date: 2020-05-12 Pat Name: Ascencion Weir Department: 1A[facility]U Room: [facility] Gender: M 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1950 Requested By: JEAN CLAUDE KILLIAN Order Number: [id number] Reading : Tirso Velasquez Measurements Intervals Blanco Rate: 131 P: VT: QRS: 28 QRSD: 76 T: 36 QT: 301 QTc: 445 Interpretive Statements Atrial fibrillation Electronically Signed On 05-13-2020 15:54:23 EDT by Tirso Velasquez [facility] Test Date: 2020-05-12 Pat Name: Ascencion Weir Department: 1AHLU Room: 1HLU21 Gender: M 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 Results may be 10%-15% lower than serum/plasma values. (CLIA ID [id number]) Performed By: #### B GLU #### [facility] [address] [place] [address] Glucose [Mass/Vol] 151 mg/dL High 70-100 [facility] Comment on above: Result Comment: Test performed by glucose meter. Results may be 10%-15% lower than serum/plasma values. (CLIA ID [id number]) Performed By: #### B MP3, PHOS3, HEMOG, PT/AP, MG3 #### [facility] [address], [place] Glucose [Mass/Vol] 191 mg/dL High 70-100 [facility] Comment on above: Result Comment: Test performed by glucose meter. Results may be 10%-15% lower than serum/plasma values. (CLIA ID [id number]) Performed By: #### B MP3, PHOS3, HEMOG, PT/AP, MG3 #### [facility] [address] [place], [place] Hemogramon 05-13-2020 Erythrocyte distribution width (RBC) [Ratio] 13.4 % Normal 11.5-14.5 [facility] Comment on above: Performed By: #### B GLU #### [facility] [address], [place] Hematocrit (Bld) [Volume fraction] 23.9 % Low 40.0-52.0 [facility] Comment on above: Performed By: #### B GLU #### [facility] [address], [place] Hemoglobin (Bld) [Mass/Vol] 8.6 g/dL Low 13.0-18.0 [facility] Comment on above: Performed By: #### B GLU #### [facility] [address], [place] MCH (RBC) [Entitic mass] 31.6 pg Normal 26.0-34.0 [facility] Comment on above: Performed By: #### B GLU #### [facility] [address], [place] MCHC (RBC) [Mass/Vol] 35.9 % Normal 32.0-36.0 [facility] Comment on above: Performed By: #### B GLU #### [facility] [address], [place] MCV (RBC) [Entitic vol] 87.9 fL Normal 80.0-98.0 [facility] Comment on above: Performed By: #### B GLU #### [facility] [address] [place], [place] Platelet mean volume (Bld) [Entitic vol] 7.7 fL Normal 7.4-10.4 [facility] Comment on above: Performed By: #### B GLU #### [facility] [address] [place], [place] Platelets (Bld) [#/Vol] 128 10*3/uL Low 140-440 [facility] Comment on above: Performed By: #### B GLU #### [facility] [address] [place], [place] RBC (Bld) [#/Vol] 2.72 10*6/uL Low 4.40-5.90 [facility] Comment on above: Performed By: #### B GLU #### [facility] [address] [place], [place] WBC (Bld) [#/Vol] 5.9 10*3/uL Normal 3.6-10.7 [facility] Comment on above: Performed By: #### B GLU #### [facility] [address] [place], [place] Magnesiumon 05-13-2020 Magnesium [Mass/Vol] 1.8 mg/dL Normal 1.6-2.3 [facility] Comment on above: Performed By: #### B GLU #### [facility] [address] [place] [address] Magnesium [Mass/Vol] 1.8 mg/dL 1.6 - 2 .3 mg/dL [facility], [place] Otheron 05-13-2020 Test Performed by [facility], [address] [place] [address] [place], [place] POCT Glucoseon 05-13-2020 Glucose [Mass/Vol] 190 mg/dL High 70 - 100 mg/dL [place] Comment on above: Test performed by gl ucose meter. Results may be 10%-15% lower than serum/plasma values. (CLIA ID [id number]) Interpretation and review of laboratory results Abnormal [facility] [place] [place] Test Performed by [facility], [address] [place] [address] [place] Glucose [Mass/Vol] 151 mg/dL High 70 - 100 mg/dL [place] Comment on above: Test performed by gl ucose meter. Results may be 10%-15% lower than serum/plasma values. (CLIA ID [id number]) Interpretation and review of laboratory results Abnormal [facility] [place] [place] Test Performed by [facility], [address] [place] [address] [place] Glucose [Mass/Vol] 191 mg/dL High 70 - 100 mg/dL [place] Comment on above: Test performed by gl ucose meter. Results may be 10%-15% lower than serum/plasma values. (CLIA ID [id number]) Interpretation and review of laboratory results Abnormal [facility] [place] Test Performed by [facility], [address] [place] [address] [place] Prothrombin Timeon 0 INR Coag (PPP) [Relative time] 1.3 High 0.9-1.1 [facility] Comment on above: Result Comment: Naeem [...] Infarction Performed By: #### B GLU #### [facility] [address] [place] [address] PT Coag (PPP) [Time] 13.7 s High 9.0-12.0 [facility] Comment on above: Result Comment: . Performed By: #### B GLU #### [facility] [address] [place] [address] Protime-INRon 05-13-2020 INR Coag (PPP) [Relative time] 1.3 {INR} [place] Comment on above: Recommended Anticoag ulant [...] Interpretation and review of laboratory results Abnormal [place] PT Coag (PPP) [Time] 13.7 s High 9 - 12 s [place] Comment on above: . Test Performed by [facility], [address] [place] [id number] [place] [address] XR CHEST PORTABLEon 05-13-[address] [place] [address] Incoming Radiology Results From [facility] - 05/13/2020 5:42 AM EDT Patient Name: ASCENCION WEIR ---Diagnostic Radiology--- Exam Date/Time 05/13/2020 05:28:43 EDT Exam CR Chest Portable Ordering Physician JEAN CLAUDE KILLIAN Accession Number [id number] CPT4 Codes 75289 () Reason For Exam Shortness of breath [...] DIANE Transcribed Date and Time: 05/13/2020 5:39 [place] Patient Name: ASCENCION MONTOYA ---Diagnostic Radiology--- Exam Date/Time 05/13/2020 05:28:43 EDT Exam CR Chest Portable Ordering Physician JEAN CLAUDE KILLIAN Accession Number [id number] CPT4 Codes 80618 () Reason For Exam Shortness of breath [...] DIANE Transcribed Date and Time: 05/13/2020 5:39 [place] Basic Metabolic Panelon 04-29 Anion gap [Moles/Vol] 9 Normal Sum [facility] Comment on above: Performed By: #### Sandie Cobb BMP3 #### [address] [address] Calcium [Mass/Vol] 9.2 mg/dL Normal 8.4-10.4 [facility] Comment on above: Performed By: #### Sandie Cobb BMP3 #### [facility] [address] [place] [address] CO2 [Moles/Vol] 27 mmol/L Normal 22-30 [facility] Comment on above: Performed By: #### M G3, BMP3 #### [facility] [address] [place] [address] Glucose [Mass/Vol] 286 mg/dL High 70-100 [facility] Comment on above: Performed By: #### M G3, BMP3 #### [facility] [address] [place] [address] Urea nitrogen [Mass/Vol] 24 mg/dL High 7-20 [facility] Comment on above: Performed By: #### M G3, BMP3 #### [facility] [address] [place] [address] Creatinine [Mass/Vol] 0.90 mg/dL Normal 0.52-1.25 [facility] Comment on above: Performed By: #### M G3, BMP3 #### [facility] [address] [place] [address] GFR/1.73 sq M predicted among blacks MDRD (S/P/Bld) [Vol rate/Area] mL/min/{1.73_m2} Normal >60 [facility] Comment on above: Performed By: #### M G3, BMP3 #### [facility] [address] [place] [address] GFR/1.73 sq M predicted among non-blacks MDRD (S/P/Bld) [Vol rate/Area] 85.2 mL/min/{1.73_m2} Normal >60 [facility] Comment on above: Result Comment: KDIG [...] Performed By: #### M G3, BMP3 #### [facility] [address] [place], [place] Potassium [Moles/Vol] 4.3 mmol/L Normal 3.5-5.1 [facility] Comment on above: Performed By: #### M G3, BMP3 #### [facility] [address] [place], [place] Chloride [Moles/Vol] 95 mmol/L Low 98-107 [facility] Comment on above: Performed By: #### M G3, BMP3 #### [facility] [address] [place], [place] Sodium [Moles/Vol] 132 mmol/L Low 135-145 [facility] Comment on above: Performed By: #### M G3, BMP3 #### [facility] [address] [place], [place] Anion gap [Moles/Vol] 9 mmol/L [place] Calcium [Mass/Vol] 9.2 mg/dL 8.4 - 10. 4 mg/dL [place] Chloride [Moles/Vol] 95 mmol/L Low 98 - 10 7 mmol/L [place] CO2 [Moles/Vol] 27 mmol/L 22 - 30 mmol/L [place] Creatinine [Mass/Vol] 0.9 mg/dL 0.52 - 1.25 mg/dL [place] EGFR IF NonAfrican [place] Citizen 85.2 mL/min >60 [place] Comment on above: KDIGO guidelines pro [...] MDRD (S/P/Bld) [Vol rate/Area] mL/min/{1.73_m2} >60 mL/min [place] Glucose [Mass/Vol] 286 mg/dL High 70 - 100 mg/dL [place] Interpretation and review of laboratory results Abnormal [place] Potassium [Moles/Vol] 4.3 mmol/L 3.5 - 5.1 mmol/L [place] Sodium [Moles/Vol] 132 mmol/L Low 135 - 145 mmol/L [place] Urea nitrogen [Mass/Vol] 24 mg/dL High 7 - 20 mg/dL [place] Potassium [Moles/Vol] 3.7 mmol/L Normal 3.5-5.1 [facility] Comment on above: Performed By: #### Sandie G3 BMP3 #### [facility] [address] Calcium [Mass/Vol] 7.3 mg/dL Low 8.4-10.4 [facility] Comment on above: Performed By: #### Sandie G3 BMP3 #### [facility] [address] [place] Glucose [Mass/Vol] 190 mg/dL High 70-100 [facility] Comment on above: Performed By: #### Sandie G3 BMP3 #### [facility] [address] [place] Anion gap [Moles/Vol] 6 Normal [facility] Comment on above: Performed By: #### Sandie Cobb BMP3 #### [facility] [address] CO2 [Moles/Vol] 25 mmol/L Normal 22-30 [facility] Comment on above: Performed By: #### Sandie G3, BMP3 #### [facility] [address] [place], [place] Creatinine [Mass/Vol] 0.89 mg/dL Normal 0.52-1.25 [facility] Comment on above: Performed By: #### Sandie G3, BMP3 #### [facility] [address] [place], [place] GFR/1.73 sq M predicted among blacks MDRD (S/P/Bld) [Vol rate/Area] mL/min/{1.73_m2} Normal >60 [facility] Comment on above: Performed By: #### Sandie G3, BMP3 #### [facility] [address] [place], [place] GFR/1.73 sq M predicted among non-blacks MDRD (S/P/Bld) [Vol rate/Area] 85.6 mL/min/{1.73_m2} Normal >60 [facility] Comment on above: Result Comment: KDIG [...] Performed By: #### M G3, BMP3 #### [facility] [address] [place], [place] Urea nitrogen [Mass/Vol] 23 mg/dL High 7-20 [facility] Comment on above: Performed By: #### M G3, BMP3 #### [facility] [address] [place] [address] Chloride [Moles/Vol] 102 mmol/L Normal 98-107 [facility] Comment on above: Performed By: #### M G3, BMP3 #### [facility] [address] [place] Sodium [Moles/Vol] 132 mmol/L Low 135-145 [facility] Comment on above: Performed By: #### M G3, BMP3 #### [facility] [address] [place] Anion gap [Moles/Vol] 6 mmol/L [place] Calcium [Mass/Vol] 7.3 mg/dL Low 8.4 - 10. 4 mg/dL [place] Chloride [Moles/Vol] 102 mmol/L 98 - 10 7 mmol/L [place] CO2 [Moles/Vol] 25 mmol/L 22 - 30 mmol/L [place] Creatinine [Mass/Vol] 0.89 mg/dL 0.52 - 1.25 mg/dL [place] EGFR IF NonAfrican [place] Citizen 85.6 mL/min >60 [place] Comment on above: KDIGO guidelines pro [...] MDRD (S/P/Bld) [Vol rate/Area] mL/min/{1.73_m2} >60 mL/min [place] Glucose [Mass/Vol] 190 mg/dL High 70 - 100 mg/dL [place] Interpretation and review of laboratory results Abnormal [place] Potassium [Moles/Vol] 3.7 mmol/L 3.5 - 5.1 mmol/L [place] Sodium [Moles/Vol] 132 mmol/L Low 135 - 145 mmol/L [place] Urea nitrogen [Mass/Vol] 23 mg/dL High 7 - 20 mg/dL [place] CBCon 05-12-2020 Erythrocyte distribution width (RBC) [Ratio] 12.9 % 11.5 - 14.5 % [place] Hematocrit (Bld) [Volume fraction] 20.8 % Low 40 - 52 % [place] Hemoglobin (Bld) [Mass/Vol] 7.3 g/dL Low 13 - 18 g/dL [place] Interpretation and review of laboratory results Abnormal [place] MCH (RBC) [Entitic mass] 31.4 pg 26 - 34 pg [place] MCHC (RBC) [Mass/Vol] 35.2 % 32 - 36 % [place], [place] MCV (RBC) [Entitic vol] 89.3 fL 80 - 98 fL [place] Platelet mean volume (Bld) [Entitic vol] 8.7 fL 7.4 - 10.4 fL [place] Platelets (Bld) [#/Vol] 98 10*3/uL Low 140 - 440 10*3/uL [place] RBC (Bld) [#/Vol] 2.33 10*6/uL Low 4.4 - 5.9 10*6/uL [place] WBC (Bld) [#/Vol] 4.8 10*3/uL 3.6 - 10.7 10*3/uL [place] Test Performed by [facility], [address] [place] [address] [place], [place] CR Chest Portableon 05-12-20 20 CR Chest Portable Patient Name: ASCENCION MONTOYA Diagnostic Radiology Exam Date/Time 05/12/2020 05:52:32 EDT Exam CR Chest Portable Ordering Physician JEAN CLAUDE KILLIAN Accession Number [id number] CPT4 Codes 29974 () Reason For Exam Shortness of breath [...] without pneumothorax. Report Dictated on Workstation: [id number] Final Dictated: 05/12/2020 6:17 am Dictating Physician: MD DANIELS JEFFREY Signed Date and Time: 05/12/2020 6:20 am Signed by: MD DANIELS JEFFREY Transcribed Date and Time: 05/12/2020 6:17 Normal [facility] Calcium, Ionizedon 0 Interpretation and review of laboratory results Abnormal [place] Ionized Ca 3.80 mg/dL Low 4.3 - 5.2 mg/dL [place] pH (Bld) 7.54 [pH] [place] Test Performed by [facility], [address] [place] [address] [place] Calcium,Ionizedon 05-12-2020 Ionized Ca,Measured 3.80 mg/dL Low 4.30-5.20 [facility] Comment on above: Performed By: #### B MP3, PHOS3, HEMOG, PT/AP, MG3 #### [facility] [address] [place] [address] pH, Ionized Calcium 7.54 High 7.31-7.46 [facility] Comment on above: Performed By: #### B MP3, PHOS3, HEMOG, PT/AP, MG3 #### [address] [place] [address] Glucose,Bedsideon 05-12-2020 Glucose [Mass/Vol] 195 mg/dL High 70-100 [facility] Comment on above: Result Comment: Test performed by glucose meter. Results may be 10%-15% lower than serum/plasma values. (CLIA ID [id number]) Performed By: #### B MP3, PHOS3, HEMOG, PT/AP, MG3 #### [facility] [address] [place] [address] Glucose [Mass/Vol] 245 mg/dL High 70-100 [facility] Comment on above: Result Comment: Test performed by glucose meter. Results may be 10%-15% lower than serum/plasma values. (CLIA ID [id number]) Performed By: #### B GLU #### [facility] [address] [place] [address] Glucose [Mass/Vol] 217 mg/dL High 70-100 [facility] Comment on above: Result Comment: Test performed by glucose meter. Results may be 10%-15% lower than serum/plasma values. (CLIA ID [id number]) Performed By: #### B GLU #### [facility] [address] [place] [address] Glucose [Mass/Vol] 245 mg/dL High 70-100 [facility] Comment on above: Result Comment: Test performed by glucose meter. Results may be 10%-15% lower than serum/plasma values. (CLIA ID [id number]) Performed By: #### M G3, BMP3 #### [facility] [address] [place] [address] Glucose [Mass/Vol] 192 mg/dL High 70-100 [facility] Comment on above: Result Comment: Test performed by glucose meter. Results may be 10%-15% lower than serum/plasma values. (CLIA ID [id number]) Performed By: #### M G3, BMP3 #### [facility] [address] [place] [address] Hemoglobinon 05-12-2020 Hemoglobin (Bld) [Mass/Vol] 8.4 g/dL Low 13.0-18.0 [facility] Comment on above: Performed By: #### B MP3, PHOS3, HEMOG, PT/AP, MG3 #### [facility] [address] [place], [place] Hemoglobin (Bld) [Mass/Vol] 8.4 g/dL Low 13 - 18 g/dL [place] Interpretation and review of laboratory results Abnormal [place] Test Performed by [facility], [address] [place] Hemogramon 05-12-2020 Erythrocyte distribution width (RBC) [Ratio] 12.9 % Normal 11.5-14.5 [facility] Comment on above: Performed By: #### Sandie G3, BMP3 #### [address] [address] [place], [place] Hematocrit (Bld) [Volume fraction] 20.8 % Low 40.0-52.0 [facility] Comment on above: Performed By: #### Sandie G3, BMP3 #### [address] [address] [place], [place] Hemoglobin (Bld) [Mass/Vol] 7.3 g/dL Low 13.0-18.0 [facility] Comment on above: Performed By: #### Sandie G3, BMP3 #### [address] [address] [place], [place] MCH (RBC) [Entitic mass] 31.4 pg Normal 26.0-34.0 [facility] Comment on above: Performed By: #### Sandie G3, BMP3 #### [address] [address] [place] MCHC (RBC) [Mass/Vol] 35.2 % Normal 32.0-36.0 [facility] Comment on above: Performed By: #### Sandie G3, BMP3 #### [address] MCV (RBC) [Entitic vol] 89.3 fL Normal 80.0-98.0 [facility] Comment on above: Performed By: #### Sandie G3, BMP3 #### [address] [address] [place], [place] Platelet mean volume (Bld) [Entitic vol] 8.7 fL Normal 7.4-10.4 [facility] Comment on above: Performed By: #### Sandie G3, BMP3 #### [facility] [address], [place] Platelets (Bld) [#/Vol] 98 10*3/uL Low 140-440 [facility] Comment on above: Performed By: #### Sandie Cobb, BMP3 #### [address] [address] [place], [place] RBC (Bld) [#/Vol] 2.33 10*6/uL Low 4.40-5.90 [facility] Comment on above: Performed By: #### Sandie G3, BMP3 #### [address] [place] WBC (Bld) [#/Vol] 4.8 10*3/uL Normal 3.6-10.7 [facility] Comment on above: Performed By: #### Sandie G3, BMP3 #### [address] [place] Leukodepleted Red Cellson Leukodepleted Red Cells Leukodepleted Re d Cells: [id number] transfused 05/12/20 02:50 JMV Unit Blood Type: O Unit Blood Rh: NEG Blood Product Code: LP1 Unit Number: [id number] Unit Status: transfused Barcoded Unit Number: [id number] Barcoded Product Code: = Barcoded ABO/Rh: =%9500 Unit Expiration: Unit Volume Transfused: 300 Unit Transfusion Start Date/Time: Normal [facility] Comment on above: Performed By: #### Sandie G3, BMP3 #### [address] [address] [address] [place] Magnesiumon 05-12-2020 Magnesium [Mass/Vol] 1.8 mg/dL Normal 1.6-2.3 [facility] Comment on above: Performed By: #### Sandie Cobb, BMP3 #### [address] [place] [address] Magnesium [Mass/Vol] 1.8 mg/dL 1.6 - 2 .3 mg/dL [facility], [place] Magnesium [Mass/Vol] 1.7 mg/dL Normal 1.6-2.3 [facility] Comment on above: Performed By: #### [facility], BMP3 #### [facility] [address] [place] [address] Magnesium [Mass/Vol] 1.7 mg/dL 1.6 - 2 .3 mg/dL [facility], [place] Otheron 05-12-2020 Test Performed by [facility], [facility] [place] [address] [facility], [place] Test Performed by [facility], [facility] [place] [address] [facility], [place] POCT Glucoseon 05-12-2020 Glucose [Mass/Vol] 195 mg/dL High 70 - 100 mg/dL [facility], [place] Comment on above: Test performed by gl ucose meter. Results may be 10%-15% lower than serum/plasma values. (CLIA ID [id number]) Interpretation and review of laboratory results Abnormal [facility] [place], [place] Test Performed by [facility], [facility] [place] [address] [facility], [place] Glucose [Mass/Vol] 245 mg/dL High 70 - 100 mg/dL [facility], [place] Comment on above: Test performed by gl ucose meter. Results may be 10%-15% lower than serum/plasma values. (CLIA ID [id number]) Interpretation and review of laboratory results Abnormal [facility] [place] Test Performed by [facility], [facility] [place] [address] [facility], [place] Glucose [Mass/Vol] 217 mg/dL High 70 - 100 mg/dL [facility], [place] Comment on above: Test performed by gl ucose meter. Results may be 10%-15% lower than serum/plasma values. (CLIA ID [id number]) Interpretation and review of laboratory results Abnormal [facility] [place] Test Performed by [facility], [address], [place] [address] [place] [address] Glucose [Mass/Vol] 245 mg/dL High 70 - 100 mg/dL [place] Comment on above: Test performed by gl ucose meter. Results may be 10%-15% lower than serum/plasma values. (CLIA ID [id number]) Interpretation and review of laboratory results Abnormal [place] Test Performed by [facility], [facility] [place], [place] [address] [place] [address] Glucose [Mass/Vol] 192 mg/dL High 70 - 100 mg/dL [place] Comment on above: Test performed by gl ucose meter. Results may be 10%-15% lower than serum/plasma values. (CLIA ID [id number]) Interpretation and review of laboratory results Abnormal [place] Test Performed by [facility], [facility] [place], [place] [id number] [place] [address] PREPARE RBC (CROSSMATCH), 1 Unitson 05-12-2020 ABO and Rh group Nom (Bld) 9500 [place] Blood product unit ID (Dose) [#] [id number] [place] Sodium [Moles/Vol] [id number] mmol/L [place] Sodium [Moles/Vol] transfused [place] Sodium [Moles/Vol] [id number] [place], [place] Prothrombin Timeon 0 INR Coag (PPP) [Relative time] 1.3 High 0.9-1.1 [facility] Comment on above: Result Comment: Naeem [...] prevent Myocardial Infarction Performed By: #### M G3 BMP3 #### [facility] [address] [place] [address] PT Coag (PPP) [Time] 14.4 s High 9.0-12.0 [facility] Comment on above: Result Comment: . Performed By: #### Sandie Cobb BMP3 #### [facility] [address] [place] [address] Protime-INRon 05-12-2020 INR Coag (PPP) [Relative time] 1.3 {INR} [place] Comment on above: Recommended Anticoag ulant [...] Interpretation and review of laboratory results Abnormal [place] PT Coag (PPP) [Time] 14.4 s High 9 - 12 s [place] Comment on above: . Test Performed by [facility], [address] [place] [id number] [place] [address] Surgical Pathologyon 020 Sodium [Moles/Vol] SEE BELOW [place], [place] 1 [id number] [facility] PATHOLOGY AND LABORATORY MEDICINE [address] [place] [address] FINAL SURGICAL PATHOLOGY REPORT NAME: ASCENCION WEIR : 1950 69 Y M BILLING NO.: [id number] LOCATION: [facility] 1H 21 PROCEDURE 05/08/2020 DATE: SURGEON: JEAN CLAUDE [...] characteristics determined by the clinical laboratories of [facility]. They have not been cleared by the [...] negativity on decalcified specimens. Professional Performing Location: [place] [address]. DEPARTMENT OF PATHOLOGY AND LABORATORY MEDICINE [place], [place] [address] [place] XR CHEST PORTABLEon 05-12-[address] [facility] Incoming Radiology Results From [employer] - 05/12/2020 6:21 AM EDT Patient Name: ASCENCION WEIR ---Diagnostic Radiology--- Exam Date/Time 05/12/2020 05:52:32 EDT Exam CR Chest Portable Ordering Physician JEAN CLAUDE KILLIAN Accession Number [id number] CPT4 Codes 75917 () Reason For Exam Shortness of breath [...] tubes without pneumothorax. Report Dictated on Workstation: [facility] --- Final --- Dictated: 05/12/2020 6:17 am Dictating Physician: MD DANIELS JEFFREY Signed Date and Time: 05/12/2020 6:20 am Signed by: MD DANIELS JEFFREY Transcribed Date and Time: 05/12/2020 6:17 [place] Patient Name: ASCENCION MONTOYA ---Diagnostic Radiology--- Exam Date/Time 05/12/2020 05:52:32 EDT Exam CR Chest Portable Ordering Physician JEAN CLAUDE KILLIAN Accession Number [id number] CPT4 Codes 73775 () Reason For Exam Shortness of breath [...] tubes without pneumothorax. Report Dictated on Workstation: [facility] --- Final --- Dictated: 05/12/2020 6:17 am Dictating Physician: MD DANIELS JEFFREY Signed Date and Time: 05/12/2020 6:20 am Signed by: MD DANIELS JEFFREY Transcribed Date and Time: 05/12/2020 6:17 [place] Basic Metabolic Panelon 04-29 Calcium [Mass/Vol] 8.4 mg/dL Normal 8.4-10.4 [facility] Comment on above: Performed By: #### Sandie G3, BMP3 #### [facility] [address] [place], [place] Anion gap [Moles/Vol] 6 Normal [facility] Comment on above: Performed By: #### Sandie G3, BMP3 #### [facility] [address] [place] [address] CO2 [Moles/Vol] 27 mmol/L Normal 22-30 [facility] Comment on above: Performed By: #### Sandie G3, BMP3 #### [facility] [address] [place] [address] Creatinine [Mass/Vol] 0.96 mg/dL Normal 0.52-1.25 [facility] Comment on above: Performed By: #### Sandie G3, BMP3 #### [facility] [address] [place] [address] GFR/1.73 sq M predicted among blacks MDRD (S/P/Bld) [Vol rate/Area] mL/min/{1.73_m2} Normal >60 [facility] Comment on above: Performed By: #### Sandie G3, BMP3 #### [facility] [address] [place] [address] GFR/1.73 sq M predicted among non-blacks MDRD (S/P/Bld) [Vol rate/Area] 78.8 mL/min/{1.73_m2} Normal >60 [facility] Comment on above: Result Comment: KDIG [...] Performed By: #### Sandie Cobb BMP3 #### [address] [place], [place] Glucose [Mass/Vol] 174 mg/dL High 70-100 [facility] Comment on above: Performed By: #### Sandie Cobb BMP3 #### [address] [place] Urea nitrogen [Mass/Vol] 24 mg/dL High 7-20 [facility] Comment on above: Performed By: #### Sandie G3, BMP3 #### [address] [place] Chloride [Moles/Vol] 97 mmol/L Low 98-107 [facility] Comment on above: Performed By: #### Sandie G3, BMP3 #### [address] [address] [place], [place] Potassium [Moles/Vol] 4.4 mmol/L Normal 3.5-5.1 [facility] Comment on above: Performed By: #### Sandie G3, BMP3 #### [facility] [address] [place] Sodium [Moles/Vol] 130 mmol/L Low 135-145 [facility] Comment on above: Performed By: #### M , BMP3 #### [address] [address] Anion gap [Moles/Vol] 6 mmol/L [place], [place] Calcium [Mass/Vol] 8.4 mg/dL 8.4 - 10. 4 mg/dL [place] Chloride [Moles/Vol] 97 mmol/L Low 98 - 10 7 mmol/L [place] CO2 [Moles/Vol] 27 mmol/L 22 - 30 mmol/L [place] Creatinine [Mass/Vol] 0.96 mg/dL 0.52 - 1.25 mg/dL [place] EGFR IF NonAfrican [place] Citizen 78.8 mL/min >60 [place] Comment on above: KDIGO guidelines pro [...] MDRD (S/P/Bld) [Vol rate/Area] mL/min/{1.73_m2} >60 mL/min [place] Glucose [Mass/Vol] 174 mg/dL High 70 - 100 mg/dL [place] Interpretation and review of laboratory results Abnormal [place] Potassium [Moles/Vol] 4.4 mmol/L 3.5 - 5.1 mmol/L [place] Sodium [Moles/Vol] 130 mmol/L Low 135 - 145 mmol/L [place] Urea nitrogen [Mass/Vol] 24 mg/dL High 7 - 20 mg/dL [place] CBC Auto Differentialon 04-29 Absolute Baso # 0.0 10*3/uL 0 - 0.2 10*3/uL [place] Absolute Neut # 3.9 10*3/uL 1.8 - 7 10*3/uL [place] Basophils/100 WBC (Bld) 0.6 % 0 - 2 % [place] Eosinophils (Bld) [#/Vol] 0.2 10*3/uL 0 - 0.5 10*3/uL [place] Eosinophils/100 WBC (Bld) 3.6 % 1 - 6 % [place] Erythrocyte distribution width (RBC) [Ratio] 13.0 % 11.5 - 14.5 % [place] Granulocytes/100 WBC (Bld) 69.3 % 40 - 80 % [place] Hematocrit (Bld) [Volume fraction] 20.2 % Low 40 - 52 % [place] Hemoglobin (Bld) [Mass/Vol] 7.3 g/dL Low 13 - 18 g/dL [place] Interpretation and review of laboratory results Abnormal [place] Lymphocytes (Bld) [#/Vol] 0.8 10*3/uL Low 1 - 4.3 10*3/uL [place] Lymphocytes/100 WBC (Bld) 14.8 % Low 20 - 40 % [place] MCH (RBC) [Entitic mass] 31.9 pg 26 - 34 pg [place] MCHC (RBC) [Mass/Vol] 36.0 % 32 - 36 % [place] MCV (RBC) [Entitic vol] 88.8 fL 80 - 98 fL [place] Monocytes (Bld) [#/Vol] 0.7 10*3/uL 0 - 0.8 10*3/uL [place] Monocytes/100 WBC (Bld) 11.7 % High 2 - 10 % [place] Platelet mean volume (Bld) [Entitic vol] 8.2 fL 7.4 - 10.4 fL [place] Platelets (Bld) [#/Vol] 85 10*3/uL Low 140 - 440 10*3/uL [place] RBC (Bld) [#/Vol] 2.27 10*6/uL Low 4.4 - 5.9 10*6/uL [place] WBC (Bld) [#/Vol] 5.7 10*3/uL 3.6 - 10.7 10*3/uL [place] Test Performed by [facility], [address] [place] [address] [place] CR Chest Portableon 05-11-20 20 CR Chest Portable Patient Name: ASCENCION MONTOYA Diagnostic Radiology Exam Date/Time 05/11/2020 08:12:25 EDT Exam CR Chest Portable Ordering Physician JEAN CLAUDE KILLIAN Accession Number [id number] CPT4 Codes 98165 () Reason For Exam Shortness of breath [...] Transcribed Date and Time: 05/11/2020 9:26 Normal [facility] Glucose,Bedsideon 05-11-2020 Glucose [Mass/Vol] 209 mg/dL High 70-100 [facility] Comment on above: Result Comment: Test performed by glucose meter. Results may be 10%-15% lower than serum/plasma values. (CLIA ID [id number]) Performed By: #### Sandie Cobb, BMP3 #### [facility] [address] [place], [place] Glucose [Mass/Vol] 215 mg/dL High 70-100 [facility] Comment on above: Result Comment: Test performed by glucose meter. Results may be 10%-15% lower than serum/plasma values. (CLIA ID [id number]) Performed By: #### Sandie Cobb, BMP3 #### [facility] [address] [place], [place] Glucose [Mass/Vol] 199 mg/dL [facility] 70-100 [place] Comment on above: Test performed by gl ucose meter. Results may be 10%-15% lower than serum/plasma values. (CLIA ID [id number]) Result Comment: Test performed by glucose meter. Results may be 10%-15% lower than serum/plasma values. (CLIA ID [id number]) Performed By: #### Sandie Cobb, BMP3 #### [facility] [address] [place], [place] Hematologyon 05-11-2020 ABO and Rh group Nom (Bld) [address] [place] Hemogram w/ Autodiffon 05-11 Abs Baso Cnt 0.0 10*3/uL Normal 0.0-0.2 [facility] Comment on above: Performed By: #### Sandie Cobb, BMP3 #### [facility] [address] [place], [place] Abs Neutrophile Cnt 3.9 10*3/uL Normal 1.8-7.0 [facility] Comment on above: Performed By: #### Sandie Cobb, BMP3 #### [facility] [address] [place] Basophils/100 WBC (Bld) 0.6 % Normal 0.0-2.0 [facility] Comment on above: Performed By: #### Sandie Cobb, BMP3 #### [facility] [address] [place] [address] Eosinophils (Bld) [#/Vol] 0.2 10*3/uL Normal 0.0-0.5 [facility] Comment on above: Performed By: #### M G3, BMP3 #### [facility] [address] [place] [address] Eosinophils/100 WBC (Bld) 3.6 % Normal 1.0-6.0 [facility] Comment on above: Performed By: #### M G3, BMP3 #### [facility] [address] [place] [address] Erythrocyte distribution width (RBC) [Ratio] 13.0 % Normal 11.5-14.5 [facility] Comment on above: Performed By: #### M G3, BMP3 #### [facility] [address] [place] [address] Granulocytes/100 WBC (Bld) 69.3 % Normal 40.0-80.0 [facility] Comment on above: Performed By: #### M G3, BMP3 #### [facility] [address] [place] [address] Hematocrit (Bld) [Volume fraction] 20.2 % Low 40.0-52.0 [facility] Comment on above: Performed By: #### M G3, BMP3 #### [facility] [address] [place] [address] Hemoglobin (Bld) [Mass/Vol] 7.3 g/dL Low 13.0-18.0 [facility] Comment on above: Performed By: #### M G3, BMP3 #### [facility] [address] [place] [address] Lymphocytes (Bld) [#/Vol] 0.8 10*3/uL Low 1.0-4.3 [facility] Comment on above: Performed By: #### M G3, BMP3 #### [facility] [address] [place] [address] Lymphocytes/100 WBC (Bld) 14.8 % Low 20.0-40.0 [facility] Comment on above: Performed By: #### Sandie G3, BMP3 #### [facility] [address] [place] MCH (RBC) [Entitic mass] 31.9 pg Normal 26.0-34.0 [facility] Comment on above: Performed By: #### Sandie G3, BMP3 #### [facility] [address] [place] MCHC (RBC) [Mass/Vol] 36.0 % Normal 32.0-36.0 [facility] Comment on above: Performed By: #### Sandie G3, BMP3 #### [facility] [address] [place] MCV (RBC) [Entitic vol] 88.8 fL Normal 80.0-98.0 [facility] Comment on above: Performed By: #### Sandie G3, BMP3 #### [address] [place] Monocytes (Bld) [#/Vol] 0.7 10*3/uL Normal 0.0-0.8 [facility] Comment on above: Performed By: #### Sandie G3, BMP3 #### [address] [place] Monocytes/100 WBC (Bld) 11.7 % High 2.0-10.0 [facility] Comment on above: Performed By: #### Sandie G3, BMP3 #### [facility] [address] [place] Platelet mean volume (Bld) [Entitic vol] 8.2 fL Normal 7.4-10.4 [facility] Comment on above: Performed By: #### Sandie G3, BMP3 #### [facility] [address] [place] Platelets (Bld) [#/Vol] 85 10*3/uL Low 140-440 [facility] Comment on above: Performed By: #### Sandie G3, BMP3 #### [facility] [address] [place] RBC (Bld) [#/Vol] 2.27 10*6/uL Low 4.40-5.90 [facility] Comment on above: Performed By: #### Sandie Cobb, BMP3 #### [address] [place] [address] WBC (Bld) [#/Vol] 5.7 10*3/uL Normal 3.6-10.7 [facility] Comment on above: Performed By: #### Sandie Cobb, BMP3 #### [address] [place] [address] Leukodepleted Red Cellson Leukodepleted Red Cells Leukodepleted Re d Cells: [id number] transfused 05/11/20 11:35 JMV Unit Blood Type: O Unit Blood Rh: NEG Blood Product Code: AS1 Unit Number: [id number] Unit Status: transfused Barcoded Unit Number: =[id number] Barcoded Product Code: = Barcoded ABO/Rh: =%9500 Unit Expiration: Unit Volume Transfused: 300 Unit Transfusion Start Date/Time: [facility] Comment on above: Performed By: #### Sandie Cobb, BMP3 #### [address] [place] [address] Leukodepleted Red Cells Leukodepleted Re d Cells: [id number] released 05/11/20 05:07 BRS Unit Blood Type: O Unit Blood Rh: NEG Blood Product Code: LP2 Unit Number: [id number] Unit Status: released Barcoded Unit Number: =[id number] Barcoded Product Code: = Barcoded ABO/Rh: =%9500 Unit Expiration: Leukodepleted Red Cells: [id number] released 05/11/20 05:07 BRS Unit Blood Type: O Unit Blood Rh: NEG Blood Product Code: LP1 Unit Number: [id number] Unit Status: released Barcoded Unit Number: =[id number] Barcoded Product Code: = Barcoded ABO/Rh: =%9500 Unit Expiration: [facility] Comment on above: Performed By: #### Sandie Cobb, BMP3 #### [facility] [address] [place] [address] Magnesiumon 05-11-2020 Magnesium [Mass/Vol] 1.9 mg/dL Normal 1.6-2.3 [facility] Comment on above: Performed By: #### Sandie BMP3 #### [facility] [address] [place] [address] Magnesium [Mass/Vol] 1.9 mg/dL 1.6 - 2 .3 mg/dL [place] Metabolic Panelon 05-11-2020 Sodium [Moles/Vol] Negative [place] Sodium [Moles/Vol] [id number] mmol/L [place] Sodium [Moles/Vol] released [place] Otheron 05-11-2020 Interpretation and review of laboratory results Abnormal [place] Test Performed by [id number] [place] [address] Test Performed by [address] [address] [place] POCT Glucoseon 05-11-2020 Glucose [Mass/Vol] 209 mg/dL High 70 - 100 mg/dL [place] Comment on above: Test performed by gl ucose meter. Results may be 10%-15% lower than serum/plasma values. (CLIA ID [id number]) Interpretation and review of laboratory results Abnormal [place] Test Performed by [id number] [place] [address] Glucose [Mass/Vol] 215 mg/dL High 70 - 100 mg/dL [place] Comment on above: Test performed by gl ucose meter. Results may be 10%-15% lower than serum/plasma values. (CLIA ID [id number]) Test Performed by [facility], [facility] [place] [id number] [place] [address] PREPARE RBC (CROSSMATCH), 1 Unitson 05-11-2020 ABO and Rh group Nom (Bld) 9500 [place] Blood product unit ID (Dose) [#] [id number] [place] Sodium [Moles/Vol] [id number] [place] Sodium [Moles/Vol] transfused [place] Sodium [Moles/Vol] [id number] mmol/L [place] PREPARE RBC (CROSSMATCH), 2 Unitson 05-11-2020 Blood product unit ID (Dose) [#] [id number] [place] Blood product unit ID (Dose) [#] [id number] [place] Sodium [Moles/Vol] [id number] [place] Sodium [Moles/Vol] [id number] [place] Prothrombin Timeon 0 INR Coag (PPP) [Relative time] 1.3 High 0.9-1.1 [facility] Comment on above: Result Comment: Naeem [...] Performed By: #### Sandie G3, BMP3 #### [facility] [address] [place] [address] PT Coag (PPP) [Time] 13.5 s High 9.0-12.0 [facility] Comment on above: Result Comment: . Performed By: #### Sandie G3, BMP3 #### [facility] [address] [place], [place] Protime-INRon 05-11-2020 INR Coag (PPP) [Relative time] 1.3 {INR} [place] Comment on above: Recommended Anticoag ulant [...] Interpretation and review of laboratory results Abnormal [place] PT Coag (PPP) [Time] 13.5 s High 9 - 12 s [place] Comment on above: . Test Performed by [facility], [address] [place] [id number] [place] [address] TS GELon 05-11-2020 TS GEL ABO Group: O Rh, Gel: NEG Antibody Screen Gel: NEG Normal [facility] Comment on above: Performed By: #### M G3, BMP3 #### [address] [address] TYPE AND SCREENon 05-11-2020 Sodium [Moles/Vol] O [place] XR CHEST PORTABLEon 05-11-20 20 Patient Name: ASCENCION MONTOYA ---Diagnostic Radiology--- Exam Date/Time 05/11/2020 08:12:25 EDT Exam CR Chest Portable Ordering Physician JEAN CLAUDE KILLIAN Accession Number [id number] CPT4 Codes 55684 () Reason For Exam Shortness of breath [...] ANTHONY Transcribed Date and Time: 05/11/2020 9:26 [place] Johnathon Varela Incoming Radiology Results From [facility] - 05/11/2020 9:29 AM EDT Patient Name: ASCENCION WEIR ---Diagnostic Radiology--- Exam Date/Time 05/11/2020 08:12:25 EDT Exam CR Chest Portable Ordering Physician JEAN CLAUDE KILLIAN Accession Number [id number] CPT4 Codes 29415 () Reason For Exam Shortness of breath [...] ANTHONY Transcribed Date and Time: 05/11/2020 9:26 [place] Basic Metabolic Panelon 04-29 Anion gap [Moles/Vol] 9 Normal [facility] Comment on above: Performed By: #### Sandie Cobb BMP3 #### [address] [address] Calcium [Mass/Vol] 8.6 mg/dL Normal 8.4-10.4 [facility] Comment on above: Performed By: #### Sandie Cobb BMP3 #### [address] CO2 [Moles/Vol] 22 mmol/L Normal 22-30 [facility] Comment on above: Performed By: #### M G3, BMP3 #### [facility] [address] [place] Glucose [Mass/Vol] 189 mg/dL High 70-100 [facility] Comment on above: Performed By: #### M G3, BMP3 #### [facility] [address] [place] Urea nitrogen [Mass/Vol] 18 mg/dL Normal 7-20 [facility] Comment on above: Performed By: #### M G3, BMP3 #### [facility] [address] [place] Creatinine [Mass/Vol] 0.88 mg/dL Normal 0.52-1.25 [facility] Comment on above: Performed By: #### M G3, BMP3 #### [facility] [address] [place] GFR/1.73 sq M predicted among blacks MDRD (S/P/Bld) [Vol rate/Area] mL/min/{1.73_m2} Normal >60 [facility] Comment on above: Performed By: #### M G3, BMP3 #### [facility] [address] [place] GFR/1.73 sq M predicted among non-blacks MDRD (S/P/Bld) [Vol rate/Area] 86.0 mL/min/{1.73_m2} Normal >60 [facility] Comment on above: Result Comment: KDIG [...] Performed By: #### Sandie Cobb BMP3 #### [facility] [address] [place] [address] Chloride [Moles/Vol] 100 mmol/L Normal 98-107 [facility] Comment on above: Performed By: #### M Jordyn BMP3 #### [facility] [address] [place] [address] Potassium [Moles/Vol] 4.3 mmol/L Normal 3.5-5.1 [facility] Comment on above: Performed By: #### Sandie Cobb BMP3 #### [facility] [address] [place] [address] Sodium [Moles/Vol] 131 mmol/L Low 135-145 [facility] Comment on above: Performed By: #### Sandie Cobb BMP3 #### [facility] [address] [place] [address] Anion gap [Moles/Vol] 9 mmol/L [place] Calcium [Mass/Vol] 8.6 mg/dL 8.4 - 10. 4 mg/dL [place] Chloride [Moles/Vol] 100 mmol/L 98 - 10 7 mmol/L [place] CO2 [Moles/Vol] 22 mmol/L 22 - 30 mmol/L [place] Creatinine [Mass/Vol] 0.88 mg/dL 0.52 - 1.25 mg/dL [place] EGFR IF NonAfrican [place] Citizen 86.0 mL/min >60 [place] Comment on above: KDIGO guidelines pro [...] MDRD (S/P/Bld) [Vol rate/Area] mL/min/{1.73_m2} >60 mL/min [place] Glucose [Mass/Vol] 189 mg/dL High 70 - 100 mg/dL [place] Interpretation and review of laboratory results Abnormal [place] Potassium [Moles/Vol] 4.3 mmol/L 3.5 - 5.1 mmol/L [place] Sodium [Moles/Vol] 131 mmol/L Low 135 - 145 mmol/L [place] Urea nitrogen [Mass/Vol] 18 mg/dL 7 - 20 mg/dL [place] CBCon 05-10-2020 Erythrocyte distribution width (RBC) [Ratio] 13.1 % 11.5 - 14.5 % [place] Hematocrit (Bld) [Volume fraction] 21.8 % Low 40 - 52 % [place] Hemoglobin (Bld) [Mass/Vol] 7.7 g/dL Low 13 - 18 g/dL [place] Interpretation and review of laboratory results Abnormal [place] MCH (RBC) [Entitic mass] 31.8 pg 26 - 34 pg [place] MCHC (RBC) [Mass/Vol] 35.4 % 32 - 36 % [place] MCV (RBC) [Entitic vol] 89.9 fL 80 - 98 fL [place] Platelet mean volume (Bld) [Entitic vol] 8.2 fL 7.4 - 10.4 fL [place] Platelets (Bld) [#/Vol] 75 10*3/uL Low 140 - 440 10*3/uL [place] RBC (Bld) [#/Vol] 2.42 10*6/uL Low 4.4 - 5.9 10*6/uL [place] WBC (Bld) [#/Vol] 7.3 10*3/uL 3.6 - 10.7 10*3/uL [place] Test Performed by [facility], [address] [place] [address] [place] CR Chest Portableon 05-10-20 20 CR Chest Portable Patient Name: ASCENCION MONTOYA Diagnostic Radiology Exam Date/Time 05/10/2020 05:43:52 EDT Exam CR Chest Portable Ordering Physician JEAN CLAUDE KILLIAN Accession Number [id number] CPT4 Codes 37260 () Reason For Exam Shortness of breath Report Indication: Shortness of breath. A frontal view of the chest timed 528 is compared to the study dated 05/09/2020. Again identified are sternotomy wires and mediastinal vascular clips. The right-sided [place]-Perez catheter and mediastinal drain have been removed. [...] Transcribed Date and Time: 05/10/2020 7:06 Normal [facility] Glucose,Bedsideon 05-10-2020 Glucose [Mass/Vol] 273 mg/dL High 70-100 [facility] Comment on above: Result Comment: Test performed by glucose meter. Results may be 10%-15% lower than serum/plasma values. (CLIA ID [id number]) Performed By: #### B MP3, PHOS3, HEMOG, PT/AP, MG3 #### [address] [place] Glucose [Mass/Vol] 199 mg/dL High 70-100 [facility] Comment on above: Result Comment: Test performed by glucose meter. Results may be 10%-15% lower than serum/plasma values. (CLIA ID [id number]) Performed By: #### M G3, BMP3 #### [facility] [address] [place] [address] Glucose [Mass/Vol] 274 mg/dL High 70-100 [facility] Comment on above: Result Comment: Test performed by glucose meter. Results may be 10%-15% lower than serum/plasma values. (CLIA ID [id number]) Performed By: #### M G3, BMP3 #### [facility] [address] [place] Glucose [Mass/Vol] 258 mg/dL High 70-100 [facility] Comment on above: Result Comment: Test performed by glucose meter. Results may be 10%-15% lower than serum/plasma values. (CLIA ID [id number]) Performed By: #### M G3, BMP3 #### [facility] [address] [place], [place] Hemogramon 05-10-2020 Erythrocyte distribution width (RBC) [Ratio] 13.1 % Normal 11.5-14.5 [facility] Comment on above: Performed By: #### M G3, BMP3 #### [facility] [address] [place] Hematocrit (Bld) [Volume fraction] 21.8 % Low 40.0-52.0 [facility] Comment on above: Performed By: #### M G3, BMP3 #### [facility] [address] [place] Hemoglobin (Bld) [Mass/Vol] 7.7 g/dL Low 13.0-18.0 [facility] Comment on above: Performed By: #### M G3, BMP3 #### [facility] [address] [place] MCH (RBC) [Entitic mass] 31.8 pg Normal 26.0-34.0 [facility] Comment on above: Performed By: #### Sandie G3, BMP3 #### [address] [place] MCHC (RBC) [Mass/Vol] 35.4 % Normal 32.0-36.0 [facility] Comment on above: Performed By: #### Sandie G3, BMP3 #### [address] [place] MCV (RBC) [Entitic vol] 89.9 fL Normal 80.0-98.0 [facility] Comment on above: Performed By: #### Sandie G3, BMP3 #### [address] [place] Platelet mean volume (Bld) [Entitic vol] 8.2 fL Normal 7.4-10.4 [facility] Comment on above: Performed By: #### Sandie G3, BMP3 #### [address] [address] [place], [place] Platelets (Bld) [#/Vol] 75 10*3/uL Low 140-440 [facility] Comment on above: Performed By: #### Sandie G3, BMP3 #### [address] [address] [place], [place] RBC (Bld) [#/Vol] 2.42 10*6/uL Low 4.40-5.90 [facility] Comment on above: Performed By: #### Sandie G3, BMP3 #### [address] [place] WBC (Bld) [#/Vol] 7.3 10*3/uL Normal 3.6-10.7 [facility] Comment on above: Performed By: #### Sandie G3, BMP3 #### [address] Magnesiumon 05-10-2020 Magnesium [Mass/Vol] 1.8 mg/dL Normal 1.6-2.3 [facility] Comment on above: Performed By: #### Sandie G3, BMP3 #### [address] [place] [address] Magnesium [Mass/Vol] 1.8 mg/dL 1.6 - 2 .3 mg/dL [facility] [place] Otheron 05-10-2020 Test Performed by [facility], [facility] [place] [address] [facility], [place] POCT Glucoseon 05-10-2020 Glucose [Mass/Vol] 273 mg/dL High 70 - 100 mg/dL [facility] Comment on above: Test performed by gl ucose meter. Results may be 10%-15% lower than serum/plasma values. (CLIA ID [id number]) Interpretation and review of laboratory results Abnormal [facility] Test Performed by [facility], [facility] [place] [address] [facility] Glucose [Mass/Vol] 199 mg/dL High 70 - 100 mg/dL [facility] Comment on above: Test performed by gl ucose meter. Results may be 10%-15% lower than serum/plasma values. (CLIA ID [id number]) Interpretation and review of laboratory results Abnormal [facility] Test Performed by [facility], [facility] [place] [address] [facility] Glucose [Mass/Vol] 274 mg/dL High 70 - 100 mg/dL [facility] Comment on above: Test performed by gl ucose meter. Results may be 10%-15% lower than serum/plasma values. (CLIA ID [id number]) Interpretation and review of laboratory results Abnormal [facility] Test Performed by [facility], [facility] [place] [address] [facility] Glucose [Mass/Vol] 258 mg/dL High 70 - 100 mg/dL [facility] Comment on above: Test performed by gl ucose meter. Results may be 10%-15% lower than serum/plasma values. (CLIA ID [id number]) Interpretation and review of laboratory results Abnormal [facility] Test Performed by [facility], [facility] [place] [address] [facility] XR CHEST PORTABLEon 05-10-20 Patient Name: ASCENCION MONTOYA ---Diagnostic Radiology--- Exam Date/Time 05/10/2020 05:43:52 EDT Exam CR Chest Portable Ordering Physician JEAN CLAUDE KILLIAN Accession Number [id number] CPT4 Codes 57134 () Reason For Exam Shortness of breath Report Indication: Shortness of breath. A frontal view of the chest timed 528 is compared to the study dated 05/09/2020. Again identified are sternotomy wires and mediastinal vascular clips. The right-sided [place]-Perez catheter and mediastinal drain have been removed. [...] ANTHONY Transcribed Date and Time: 05/10/2020 7:06 [place], [place] [facility] Incoming Radiology Results From [facility] - 05/10/2020 7:09 AM EDT Patient Name: ASCENCION WEIR ---Diagnostic Radiology--- Exam Date/Time 05/10/2020 05:43:52 EDT Exam CR Chest Portable Ordering Physician JEAN CLAUDE KILLIAN Accession Number [id number] CPT4 Codes 22529 () Reason For Exam Shortness of breath Report Indication: Shortness of breath. A frontal view of the chest timed 528 is compared to the study dated 05/09/2020. Again identified are sternotomy wires and mediastinal vascular clips. The right-sided [place]-Perez catheter and mediastinal drain have been removed. There is a right-sided chest tube. No sizable pneumothorax is seen. The patient is mildly rotated. The heart is unchanged in size. The mediastinum is unchanged in appearance. There is mild pulmonary vascular congestion and mild bilateral pulmonary interstitial edema which has progressed. There are no areas of consolidation. Follow-up is recommended. Report Dictated on Workstation: [id number] --- Final --- Dictated: 05/10/2020 7:06 am Dictating Physician: DO FERNANDO ANTHONY Signed Date and Time: 05/10/2020 7:08 am Signed by: DO FERNANDO ANTHONY Transcribed Date and Time: 05/10/2020 7:06 [facility], [place] Basic Metabolic Panel 04-29 Calcium [Mass/Vol] 9.1 mg/dL Normal 8.4-10.4 [facility] Comment on above: Performed By: #### B MP3, PHOS3, HEMOG, PT/AP, MG3 #### [address] [place] [address] [place], [place] Anion gap [Moles/Vol] 10 Normal [facility] Comment on above: Performed By: #### B MP3, PHOS3, HEMOG, PT/AP, MG3 #### [address] [address] [place], [place] CO2 [Moles/Vol] 22 mmol/L Normal 22-30 [facility] Comment on above: Performed By: #### B MP3, PHOS3, HEMOG, PT/AP, MG3 #### [address] [address] [place], [place] Creatinine [Mass/Vol] 1.04 mg/dL Normal 0.52-1.25 [facility] Comment on above: Performed By: #### B MP3, PHOS3, HEMOG, PT/AP, MG3 #### [address] [address] [place], [place] GFR/1.73 sq M predicted among blacks MDRD (S/P/Bld) [Vol rate/Area] 82.9 mL/min/{1.73_m2} Normal >60 [facility] Comment on above: Performed By: #### B MP3, PHOS3, HEMOG, PT/AP, MG3 #### [address] [address] [place], [place] GFR/1.73 sq M predicted among non-blacks MDRD (S/P/Bld) [Vol rate/Area] 71.5 mL/min/{1.73_m2} Normal >60 [facility] Comment on above: Result Comment: KDIG [...] B MP3, PHOS3, HEMOG, PT/AP, MG3 #### [address] Urea nitrogen [Mass/Vol] 17 mg/dL Normal 7-20 [facility] Comment on above: Performed By: #### B MP3, PHOS3, HEMOG, PT/AP, MG3 #### [facility] [address] [place], [place] Chloride [Moles/Vol] 104 mmol/L Normal 98-107 [facility] Comment on above: Performed By: #### B MP3, PHOS3, HEMOG, PT/AP, MG3 #### [facility] [address] [place], [place] Potassium [Moles/Vol] 4.4 mmol/L Normal 3.5-5.1 [facility] Comment on above: Performed By: #### B MP3, PHOS3, HEMOG, PT/AP, MG3 #### [address] [address] [place], [place] Sodium [Moles/Vol] 136 mmol/L Normal 135-145 [facility] Comment on above: Performed By: #### B MP3, PHOS3, HEMOG, PT/AP, MG3 #### [facility] [address] [place] [address] Anion gap [Moles/Vol] 10 mmol/L [facility], [place] Calcium [Mass/Vol] 9.1 mg/dL 8.4 - 10. 4 mg/dL [facility], [place] Chloride [Moles/Vol] 104 mmol/L 98 - 10 7 mmol/L [facility], [place] CO2 [Moles/Vol] 22 mmol/L 22 - 30 mmol/L [facility], [place] Creatinine [Mass/Vol] 1.04 mg/dL 0.52 - 1.25 mg/dL [facility], [place] EGFR IF NonAfrican [place] Citizen 71.5 mL/min >60 [place] Comment on above: KDIGO guidelines pro [...] MDRD (S/P/Bld) [Vol rate/Area] 82.9 mL/min/{1.73_m2} >60 [facility], [place] Potassium [Moles/Vol] 4.4 mmol/L 3.5 - 5.1 mmol/L [facility], [place] Sodium [Moles/Vol] 136 mmol/L 135 - 145 mmol/L [facility], [place] Urea nitrogen [Mass/Vol] 17 mg/dL 7 - 20 mg/dL [facility], [place] Anion gap [Moles/Vol] 9 Normal [facility] Comment on above: Performed By: #### H EMDF #### [facility] [address] [place] [address] Calcium [Mass/Vol] 9.5 mg/dL Normal 8.4-10.4 [facility] Comment on above: Performed By: #### H EMDF #### [facility] [address] [place] [address] CO2 [Moles/Vol] 22 mmol/L Normal 22-30 [facility] Comment on above: Performed By: #### H EMDF #### [facility] [address] [place] [address] Glucose [Mass/Vol] 82 mg/dL Normal 70-100 [facility] Comment on above: Performed By: #### H EMDF #### [facility] [address] [place] [address] Urea nitrogen [Mass/Vol] 15 mg/dL Normal 7-20 [facility] Comment on above: Performed By: #### H EMDF #### [facility] [address] [place] [address] Creatinine [Mass/Vol] 0.88 mg/dL Normal 0.52-1.25 [facility] Comment on above: Performed By: #### H EMDF #### [facility] [address] [place] [address] GFR/1.73 sq M predicted among blacks MDRD (S/P/Bld) [Vol rate/Area] mL/min/{1.73_m2} Normal >60 [facility] Comment on above: Performed By: #### H EMDF #### [facility] [address] [place] [address] GFR/1.73 sq M predicted among non-blacks MDRD (S/P/Bld) [Vol rate/Area] 86.0 mL/min/{1.73_m2} Normal >60 [facility] Comment on above: Result Comment: KDIG [...] secretion. Performed By: #### H EMDF #### [address] [place], [place] Potassium [Moles/Vol] 4.4 mmol/L Normal 3.5-5.1 [facility] Comment on above: Performed By: #### H EMDF #### [address] [address] [place], [place] Sodium [Moles/Vol] 137 mmol/L Normal 135-145 [facility] Comment on above: Performed By: #### H EMDF #### [address] [place] [address] [place], [place] Chloride [Moles/Vol] 106 mmol/L Normal 98-107 [facility] Comment on above: Performed By: #### H EMDF #### [address] CBCon 05-09-2020 Erythrocyte distribution width (RBC) [Ratio] 13.2 % 11.5 - 14.5 % [place] Hematocrit (Bld) [Volume fraction] 22.7 % Low 40 - 52 % [place] Hemoglobin (Bld) [Mass/Vol] 8.0 g/dL Low 13 - 18 g/dL [place] Interpretation and review of laboratory results Abnormal [place] MCH (RBC) [Entitic mass] 31.3 pg 26 - 34 pg [place] MCHC (RBC) [Mass/Vol] 35.2 % 32 - 36 % [place], [place] MCV (RBC) [Entitic vol] 88.9 fL 80 - 98 fL M [place], [place] Platelet mean volume (Bld) [Entitic vol] 7.9 fL 7.4 - 10.4 fL [place] Platelets (Bld) [#/Vol] 98 10*3/uL Low 140 - 440 10*3/uL [place] RBC (Bld) [#/Vol] 2.55 10*6/uL Low 4.4 - 5.9 10*6/uL [place] WBC (Bld) [#/Vol] 7.5 10*3/uL 3.6 - 10.7 10*3/uL [place] Test Performed by [id number] [place] [address] CR Chest Portableon 05-09-20 20 CR Chest Portable Patient Name: ASCENCION MONTOYA Diagnostic Radiology Exam Date/Time 05/09/2020 05:36:21 EDT Exam CR Chest Portable Ordering Physician JEAN CLAUDE KILLIAN Accession Number [id number] CPT4 Codes 61029 () Reason For Exam Shortness of breath Report CHEST X-RAY AP CLINICAL INDICATION: Shortness of breath AP radiograph of the chest was obtained. COMPARISON: 05/08/2020 FINDINGS: The patient is status post open heart surgery with sternotomy wires present. Mild pulmonary venous congestion. The patient has been extubated. Stable appearance/location of the right-sided [place] Perez line. Right-sided thoracostomy tube. No pneumothorax. 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 : 1950 Requested By: LIZ VAUGHN Order Number: [id number] Reading MD: Nabor Weber Measurements Intervals Blanco Rate: 77 P: 36 VT: 155 QRS: 21 QRSD: 82 T: 35 QT: 368 QTc: 417 Interpretive Statements Sinus rhythm Electronically Signed On 05-09-2020 9:40:36 EDT by [facility], [place] [facility], [facility] Incoming Cardiology Results From [place] - 05/09/2020 9:41 AM EDT [facility] Test Date: 2020-05-08 Pat Name: Ascencion Weir Department: [facility] Room: 1HLU Gender: M 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 : 1950 Requested By: LIZ VAUGHN Order Number: [id number] Reading MD: Nabor Weber Measurements Intervals Blanco Rate: 77 P: 36 VT: 155 QRS: 21 QRSD: 82 T: 35 QT: 368 QTc: 417 Interpretive Statements Sinus rhythm Electronically Signed On 05-09-2020 9:40:36 EDT by [facility], [place] EKG 12 leadon 05-09-2020 [facility], [facility] Incoming Cardiology Results From [place] - 05/09/2020 9:10 AM EDT [facility] Test Date: 2020-05-09 Pat Name: Ascencion Weir Department: 1[facility] Room: 1HLU21 Gender: M 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1950 Requested By: JEAN CLAUDE KILLIAN Order Number: [id number] Reading MD: Rajinder Messina Measurements Intervals Blanco Rate: 76 P: 31 VT: 167 QRS: 23 QRSD: 66 T: 27 QT: 359 QTc: 404 Interpretive Statements Sinus rhythm Abnormal R-wave progression, early transition MINIMAL ST ELEVATION, DIFFUSE LEADS Electronically Signed On 05-09-2020 9:09:40 EDT by Rajinder Messina [facility], [place] [facility] Test Date: 2020-05-09 Pat Name: Ascencion Weir Department: 1AU Room: 1HLU21 Gender: M 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1950 Requested By: JEAN CLAUDE KILLIAN Order Number: [id number] Reading MD: Rajinder Messina Measurements Intervals Blanco Rate: 76 P: 31 VT: 167 QRS: 23 QRSD: 66 T: 27 QT: 359 QTc: 404 Interpretive Statements Sinus rhythm Abnormal R-wave progression, early transition MINIMAL ST ELEVATION, DIFFUSE LEADS Electronically Signed On 05-09-2020 9:09:40 EDT by Rajinder Messina [facility], [facility] Test Date: 2020-05-08 Pat Name: Ascencion Weir [facility] Gender: M 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 Operator: : 1950 Requested By: JEAN CLAUDE KILLIAN Order Number: [id number] Reading MD: Lisa Rodriguez Measurements Intervals Blanco Rate: 77 P: 28 VT: 156 QRS: 46 QRSD: 71 T: 36 QT: 367 QTc: 416 Interpretive Statements Sinus rhythm Abnormal R-wave progression, early transition Electronically Signed On 05-09-2020 7:51:08 EDT by Lisa [facility], [place] [facility], [facility] Incoming Cardiology Results From [facility] - 05/09/2020 7:52 AM EDT [facility] Test Date: 2020-05-08 Pat Name: Ascencion Weir [facility] Room: [facility] Gender: M 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 Operator: : 1950 Requested By: JEAN CLAUDE KILLIAN Order Number: [id number] Reading MD: Lisa Rodriguez Measurements Intervals Blanco Rate: 77 P: 28 VT: 156 QRS: 46 QRSD: 71 T: 36 QT: 367 QTc: 416 Interpretive Statements Sinus rhythm Abnormal R-wave progression, early transition Electronically Signed On 05-09-2020 7:51:08 EDT by Lisa Rodriguez [facility], [place] Fresh Frozen Plasmaon 2019 Fresh Frozen Plasma Thawed Plasma - 5 Da y: [id number] released 05/09/20 07:35 JMV Unit Blood Type: A Unit Blood Rh: POS Blood Product Code: 0T5 Unit Number: [id number] Unit Status: released Barcoded Unit Number: =[id number] Barcoded Product Code: = Barcoded ABO/Rh: =%6200 Unit Expiration: Unit Volume Transfused: 0 Unit Transfusion Start Date/Time: Unit Transfusion End Date/Time: Thawed Plasma - 5 Day: [id number] released 05/09/20 07:35 JMV Unit Blood Type: A Unit Blood Rh: POS Blood Product Code: 0T5 Unit Number: [id number] Unit Status: released Barcoded Unit Number: =[id number] Barcoded Product Code: = Barcoded ABO/Rh: =%6200 Unit Expiration: Unit Volume Transfused: 0 Unit Transfusion Start Date/Time: Unit Transfusion End Date/Time: Normal [facility] Comment on above: Performed By: #### M G3, BMP3 #### [facility] [address] [place] [address] Glucose,Bedsideon 05-09-2020 Glucose [Mass/Vol] 250 mg/dL [address] Comment on above: Result Comment: Test performed by glucose meter. Results may be 10%-15% lower than serum/plasma values. (CLIA ID [id number]) Performed By: #### M G3, BMP3 #### [facility] [address] [place] [address] Glucose [Mass/Vol] 264 mg/dL [address] Comment on above: Result Comment: Test performed by glucose meter. Results may be 10%-15% lower than serum/plasma values. (CLIA ID [id number]) Performed By: #### B MP3, PHOS3, HEMOG, PT/AP, MG3 #### [facility] [address] [place] [address] Glucose [Mass/Vol] 278 mg/dL [address] Comment on above: Result Comment: Test performed by glucose meter. Results may be 10%-15% lower than serum/plasma values. (CLIA ID [id number]) Performed By: #### B MP3, PHOS3, HEMOG, PT/AP, MG3 #### [facility] [address] [facility] [address] [place] [address] Glucose [Mass/Vol] 144 mg/dL [facility] 70-100 [facility] Comment on above: Result Comment: Test performed by glucose meter. Results may be 10%-15% lower than serum/plasma values. (CLIA ID [id number]) Performed By: #### B MP3, PHOS3, HEMOG, PT/AP, MG3 #### [facility] [address] [place] [address] Glucose [Mass/Vol] 142 mg/dL High 70-100 [facility] Comment on above: Result Comment: Test performed by glucose meter. Results may be 10%-15% lower than serum/plasma values. (CLIA ID [id number]) Performed By: #### B MP3, PHOS3, HEMOG, PT/AP, MG3 #### [facility] [address] [place] [address] Glucose [Mass/Vol] 181 mg/dL High 70-100 [facility] Comment on above: Result Comment: Test performed by glucose meter. Results may be 10%-15% lower than serum/plasma values. (CLIA ID [id number]) Performed By: #### M G3, BMP3 #### [facility] [address] [place] [address] Glucose [Mass/Vol] 99 mg/dL Normal 70-100 [facility] Comment on above: Result Comment: Test performed by glucose meter. Results may be 10%-15% lower than serum/plasma values. (CLIA ID [id number]) Performed By: #### H EMDF #### [facility] [address] [place] [address] Glucose [Mass/Vol] 91 mg/dL Normal 70-100 [facility] Comment on above: Result Comment: Test performed by glucose meter. Results may be 10%-15% lower than serum/plasma values. (CLIA ID [id number]) Performed By: #### H EMDF #### [facility] [address] [place] [address] Glucose [Mass/Vol] 96 mg/dL Normal 70-100 [facility] Comment on above: Result Comment: Test performed by glucose meter. Results may be 10%-15% lower than serum/plasma values. (CLIA ID [id number]) Performed By: #### B MP3, PHOS3, HEMOG, PT/AP, MG3 #### [facility] [address] [place] [address] Glucose [Mass/Vol] 95 mg/dL Normal 70-100 [facility] Comment on above: Result Comment: Test performed by glucose meter. Results may be 10%-15% lower than serum/plasma values. (CLIA ID [id number]) Performed By: #### B MP3, PHOS3, HEMOG, PT/AP, MG3 #### [facility] [address] [place] [address] Glucose [Mass/Vol] 95 mg/dL Normal 70-100 [facility] Comment on above: Result Comment: Test performed by glucose meter. Results may be 10%-15% lower than serum/plasma values. (CLIA ID [id number]) Performed By: #### B MP3, PHOS3, HEMOG, PT/AP, MG3 #### [facility] [address] [place] [address] Glucose [Mass/Vol] 84 mg/dL Normal 70-100 [place], [place] Comment on above: Test performed by gl ucose meter. Results may be 10%-15% lower than serum/plasma values. (CLIA ID [id number]) Result Comment: Test performed by glucose meter. Results may be 10%-15% lower than serum/plasma values. (CLIA ID [id number]) Performed By: #### H EMDF #### [facility] [address] [place] [address] Performed By: #### B MP3, PHOS3, HEMOG, PT/AP, MG3 #### [facility] [address] [place] [address] Performed By: #### M G3, BMP3 #### [facility] [address] [place] [address] Glucose [Mass/Vol] 59 mg/dL Low 70-100 [facility] Comment on above: Result Comment: Test performed by glucose meter. Results may be 10%-15% lower than serum/plasma values. (CLIA ID [id number]) Performed By: #### B MP3, PHOS3, HEMOG, PT/AP, MG3 #### [address] [address] [address] [place] Glucose [Mass/Vol] 61 mg/dL Low 70-100 [facility] Comment on above: Result Comment: Repe ated Test; Test performed by glucose meter. Results may be 10%-15% lower than serum/plasma values. (CLIA ID [id number]) Performed By: #### M G3, BMP3 #### [address] [address] [place], [place] Glucose [Mass/Vol] 84 mg/dL Normal 70-100 [facility] Comment on above: Result Comment: Test performed by glucose meter. Results may be 10%-15% lower than serum/plasma values. (CLIA ID [id number]) Performed By: #### B MP3, PHOS3, HEMOG, PT/AP, MG3 #### [address] [address] [address] [place] Hemogramon 05-09-2020 Erythrocyte distribution width (RBC) [Ratio] 13.2 % Normal 11.5-14.5 [facility] Comment on above: Performed By: #### B MP3, PHOS3, HEMOG, PT/AP, MG3 #### [address] [address] [place], [place] Hematocrit (Bld) [Volume fraction] 22.7 % Low 40.0-52.0 [facility] Comment on above: Performed By: #### B MP3, PHOS3, HEMOG, PT/AP, MG3 #### [address] [address] [place], [place] Hemoglobin (Bld) [Mass/Vol] 8.0 g/dL Low 13.0-18.0 [facility] Comment on above: Performed By: #### B MP3, PHOS3, HEMOG, PT/AP, MG3 #### [address] [address] [address] [place] MCH (RBC) [Entitic mass] 31.3 pg Normal 26.0-34.0 [facility] Comment on above: Performed By: #### B MP3, PHOS3, HEMOG, PT/AP, MG3 #### [address] [address] [address] [place] MCHC (RBC) [Mass/Vol] 35.2 % Normal 32.0-36.0 [facility] Comment on above: Performed By: #### B MP3, PHOS3, HEMOG, PT/AP, MG3 #### [address] [address] [address] [place] MCV (RBC) [Entitic vol] 88.9 fL Normal 80.0-98.0 [facility] Comment on above: Performed By: #### B MP3, PHOS3, HEMOG, PT/AP, MG3 #### [address] [address] [address] [place] Platelet mean volume (Bld) [Entitic vol] 7.9 fL Normal 7.4-10.4 [facility] Comment on above: Performed By: #### B MP3, PHOS3, HEMOG, PT/AP, MG3 #### [address] [address] [address] [place] Platelets (Bld) [#/Vol] 98 10*3/uL Low 140-440 [facility] Comment on above: Performed By: #### B MP3, PHOS3, HEMOG, PT/AP, MG3 #### [address] [address] [address] [place] RBC (Bld) [#/Vol] 2.55 10*6/uL Low 4.40-5.90 [facility] Comment on above: Performed By: #### B MP3, PHOS3, HEMOG, PT/AP, MG3 #### [address] WBC (Bld) [#/Vol] 7.5 10*3/uL Normal 3.6-10.7 [facility] Comment on above: Performed By: #### B MP3, PHOS3, HEMOG, PT/AP, MG3 #### [facility] [address] [place] Erythrocyte distribution width (RBC) [Ratio] 13.2 % Normal 11.5-14.5 [facility] Comment on above: Performed By: #### M G3, BMP3 #### [facility] [address] [place] Hematocrit (Bld) [Volume fraction] 24.7 % Low 40.0-52.0 [facility] Comment on above: Performed By: #### M G3, BMP3 #### [facility] [address] [place] Hemoglobin (Bld) [Mass/Vol] 8.6 g/dL Low 13.0-18.0 [facility] Comment on above: Performed By: #### M G3, BMP3 #### [facility] [address] [place] MCH (RBC) [Entitic mass] 30.9 pg Normal 26.0-34.0 [facility] Comment on above: Performed By: #### M G3, BMP3 #### [facility] [address] [place] MCHC (RBC) [Mass/Vol] 34.8 % Normal 32.0-36.0 [facility] Comment on above: Performed By: #### M G3, BMP3 #### [facility] [address] [place] MCV (RBC) [Entitic vol] 88.8 fL Normal 80.0-98.0 [facility] Comment on above: Performed By: #### M G3, BMP3 #### [facility] [address] [place] Platelet mean volume (Bld) [Entitic vol] 7.8 fL Normal 7.4-10.4 [facility] Comment on above: Performed By: #### M G3, BMP3 #### [facility] [address] [place] Platelets (Bld) [#/Vol] 103 10*3/uL Low 140-440 [facility] Comment on above: Performed By: #### M G3, BMP3 #### [facility] [address] [place] RBC (Bld) [#/Vol] 2.78 10*6/uL Low 4.40-5.90 [facility] Comment on above: Performed By: #### M G3, BMP3 #### [facility] [address] [place] WBC (Bld) [#/Vol] 6.1 10*3/uL Normal 3.6-10.7 [facility] Comment on above: Performed By: #### M G3, BMP3 #### [facility] [address] [place] Magnesiumon 05-09-2020 Magnesium [Mass/Vol] 2.1 mg/dL Normal 1.6-2.3 [facility] Comment on above: Performed By: #### B MP3, PHOS3, HEMOG, PT/AP, MG3 #### [facility] [address] [place], [place] Magnesium [Mass/Vol] 2.1 mg/dL 1.6 - 2 .3 mg/dL [facility] [place], [place] Otheron 05-09-2020 Test Performed by [facility], [address] [place] [id number] [place] [address] Test Performed by [id number] [place] [address] Interpretation and review of laboratory results Abnormal [facility] [place], [place] Test Performed by [facility], [facility] [place], [place] [id number] [place] [address], [place] POCT Glucoseon 05-09-2020 Glucose [Mass/Vol] 250 mg/dL High 70 - 100 mg/dL [place], [place] Comment on above: Test performed by ucose meter. Results may be 10%-15% lower than serum/plasma values. (CLIA ID [id number]) Interpretation and review of laboratory results Abnormal [facility] [place], [place] Test Performed by [facility], [facility] [address] [place] [address] [facility] [place] Glucose [Mass/Vol] 264 mg/dL High 70 - 100 mg/dL [facility] [place] Comment on above: Test performed by gl ucose meter. Results may be 10%-15% lower than serum/plasma values. (CLIA ID [id number]) Interpretation and review of laboratory results Abnormal [facility] [place] Test Performed by [facility], [address] [place] [address] [facility] [place] Glucose [Mass/Vol] 278 mg/dL High 70 - 100 mg/dL [facility] [place] Comment on above: Test performed by gl ucose meter. Results may be 10%-15% lower than serum/plasma values. (CLIA ID [id number]) Interpretation and review of laboratory results Abnormal [facility] [place] Test Performed by [facility], [address] [place] [address] [facility] [place] Glucose [Mass/Vol] 144 mg/dL High 70 - 100 mg/dL [facility] [place] Comment on above: Test performed by gl ucose meter. Results may be 10%-15% lower than serum/plasma values. (CLIA ID [id number]) Interpretation and review of laboratory results Abnormal [facility] [place] Test Performed by [facility], [address] [place] [address] [facility] [place] Glucose [Mass/Vol] 142 mg/dL High 70 - 100 mg/dL [facility] [place] Comment on above: Test performed by gl ucose meter. Results may be 10%-15% lower than serum/plasma values. (CLIA ID [id number]) Interpretation and review of laboratory results Abnormal [facility] [place] Test Performed by [facility], [address] [place] [address] [facility] [place] Glucose [Mass/Vol] 181 mg/dL High 70 - 100 mg/dL [facility] [place] Comment on above: Test performed by gl ucose meter. Results may be 10%-15% lower than serum/plasma values. (CLIA ID [id number]) Interpretation and review of laboratory results Abnormal [facility] [place] Test Performed by [facility], [address] [place] [address] [facility], [place] Glucose [Mass/Vol] 99 mg/dL 70 - 100 mg/dL [place] Comment on above: Test performed by gl ucose meter. Results may be 10%-15% lower than serum/plasma values. (CLIA ID [id number]) Glucose [Mass/Vol] 91 mg/dL 70 - 100 mg/dL [place] Comment on above: Test performed by gl ucose meter. Results may be 10%-15% lower than serum/plasma values. (CLIA ID [id number]) Test Performed by [facility], [address] [place] [address] [place] Glucose [Mass/Vol] 96 mg/dL 70 - 100 mg/dL [place] Comment on above: Test performed by gl ucose meter. Results may be 10%-15% lower than serum/plasma values. (CLIA ID [id number]) Test Performed by [facility], [address] [place] [address] [place] Glucose [Mass/Vol] 95 mg/dL 70 - 100 mg/dL [place] Comment on above: Test performed by gl ucose meter. Results may be 10%-15% lower than serum/plasma values. (CLIA ID [id number]) Test Performed by [facility], [address] [place] [address] [place] Glucose [Mass/Vol] 95 mg/dL 70 - 100 mg/dL [place] Comment on above: Test performed by gl ucose meter. Results may be 10%-15% lower than serum/plasma values. (CLIA ID [id number]) Test Performed by [facility], [address] [place] [address] [facility], [place] Glucose [Mass/Vol] 84 mg/dL 70 - 100 mg/dL [place] Comment on above: Test performed by gl ucose meter. Results may be 10%-15% lower than serum/plasma values. (CLIA ID [id number]) Test Performed by [facility], [address] [place] [address] [place] Glucose [Mass/Vol] 59 mg/dL Low 70 - 100 mg/dL [place] Comment on above: Test performed by gl ucose meter. Results may be 10%-15% lower than serum/plasma values. (CLIA ID [id number]) Glucose [Mass/Vol] 61 mg/dL Low 70 - 100 mg/dL [place] Comment on above: Repeated Test; Test performed by glucose meter. Results may be 10%-15% lower than serum/plasma values. (CLIA ID [id number]) Prothrombin Timeon 0 INR Coag (PPP) [Relative time] 1.1 Normal 0.9-1.1 [facility] Comment on above: Result Comment: Naeem [...] Infarction Performed By: #### H EMDF #### [address] [address] [place] [address] PT Coag (PPP) [Time] 12.1 s High 9.0-12.0 [facility] Comment on above: Result Comment: . Performed By: #### H EMDF #### [facility] [address] [place] [address] XR CHEST PORTABLEon 05-09-20 20 [facility], [facility] Incoming Radiology Results From [facility] - 05/09/2020 7:36 AM EDT Patient Name: ASCENCION WEIR ---Diagnostic Radiology--- Exam Date/Time 05/09/2020 05:36:21 EDT Exam CR Chest Portable Ordering Physician JEAN CLAUDE KILLIAN Accession Number [id number] CPT4 Codes 83023 () Reason For Exam Shortness of breath Report CHEST X-RAY AP CLINICAL INDICATION: Shortness of breath AP radiograph of the chest was obtained. COMPARISON: 05/08/2020 FINDINGS: The patient is status post open heart surgery with sternotomy wires present. Mild pulmonary venous congestion. The patient has been extubated. Stable appearance/location of the right-sided [place] Perez line. Right-sided thoracostomy tube. No pneumothorax. [...] JASON Transcribed Date and Time: 05/09/2020 7:32 [place] Patient Name: ASCENCION MONTOYA ---Diagnostic Radiology--- Exam Date/Time 05/09/2020 05:36:21 EDT Exam CR Chest Portable Ordering Physician JEAN CLAUDE KILLIAN Accession Number [id number] CPT4 Codes 66830 () Reason For Exam Shortness of breath Report CHEST X-RAY AP CLINICAL INDICATION: Shortness of breath AP radiograph of the chest was obtained. COMPARISON: 05/08/2020 FINDINGS: The patient is status post open heart surgery with sternotomy wires present. Mild pulmonary venous congestion. The patient has been extubated. Stable appearance/location of the right-sided [place] Perez line. Right-sided thoracostomy tube. No pneumothorax. [...] JASON Transcribed Date and Time: 05/09/2020 7:32 [place] Arterial Blood Gaseson 05-08 CO2 [Moles/Vol] 25.2 mmol/L Normal 23.0-27.0 [facility] Comment on above: Performed By: #### B MP3, PHOS3, HEMOG, PT/AP, MG3 #### [address] [address] [place], [place] HCO3 (Bld) [Moles/Vol] 23.9 mmol/L Normal 21.0-25.0 [facility] Comment on above: Performed By: #### B MP3, PHOS3, HEMOG, PT/AP, MG3 #### [address] Hemoglobin (Bld) [Mass/Vol] 8.6 g/dL Normal ScreenOnly [facility] Comment on above: Performed By: #### B MP3, PHOS3, HEMOG, PT/AP, MG3 #### [address] Oxygen (Bld) [Partial pressure] 393.5 mm[Hg] High 80.0-100.0 [facility] Comment on above: Performed By: #### B MP3, PHOS3, HEMOG, PT/AP, MG3 #### [address] Oxygen saturation in Blood 99.3 % Normal 95.0-100.0 [facility] Comment on above: Performed By: #### B MP3, PHOS3, HEMOG, PT/AP, MG3 #### [address] pCO2 41.1 mm[Hg] Normal 35.0-45.0 [facility] Comment on above: Performed By: #### B MP3, PHOS3, HEMOG, PT/AP, MG3 #### [address] pH (Bld) 7.383 Normal 7.350-7.450 [facility] Comment on above: Performed By: #### B MP3, PHOS3, HEMOG, PT/AP, MG3 #### [address] Std Base Excess -1.1 mmol/L Normal -3.0-3.0 [facility] Comment on above: Performed By: #### B MP3, PHOS3, HEMOG, PT/AP, MG3 #### [facility] [address] [place], [place] FIO2 No data Normal [facility] Comment on above: Performed By: #### B MP3, PHOS3, HEMOG, PT/AP, MG3 #### [facility] [address] [place], [place] Basic Metabolic Panelon 09- Anion gap [Moles/Vol] 9 mmol/L [place], [place] Calcium [Mass/Vol] 9.5 mg/dL 8.4 - 10. 4 mg/dL [place] Chloride [Moles/Vol] 106 mmol/L 98 - 10 7 mmol/L [place] CO2 [Moles/Vol] 22 mmol/L 22 - 30 mmol/L [place] Creatinine [Mass/Vol] 0.88 mg/dL 0.52 - 1.25 mg/dL [place] EGFR IF NonAfrican [place] Citizen 86.0 mL/min >60 [place] Comment on above: KDIGO guidelines pro [...] MDRD (S/P/Bld) [Vol rate/Area] mL/min/{1.73_m2} >60 mL/min [facility], [place] Glucose [Mass/Vol] 82 mg/dL 70 - 100 mg/dL [place] Potassium [Moles/Vol] 4.4 mmol/L 3.5 - 5.1 mmol/L [facility], [place] Sodium [Moles/Vol] 137 mmol/L 135 - 145 mmol/L [place] Urea nitrogen [Mass/Vol] 15 mg/dL 7 - 20 mg/dL [place] Test Performed by [facility], [address] [place] [address] [place] Anion gap [Moles/Vol] 8 Normal [facility] Comment on above: Performed By: #### B MP3, PHOS3, HEMOG, PT/AP, MG3 #### [address] [address] Calcium [Mass/Vol] 11.5 mg/dL High 8.4-10.4 [facility] Comment on above: Performed By: #### B MP3, PHOS3, HEMOG, PT/AP, MG3 #### [address] [address] [place] [address] CO2 [Moles/Vol] 22 mmol/L Normal 22-30 [facility] Comment on above: Performed By: #### B MP3, PHOS3, HEMOG, PT/AP, MG3 #### [address] [address] [place] [address] Glucose [Mass/Vol] 148 mg/dL High 70-100 [facility] Comment on above: Performed By: #### B MP3, PHOS3, HEMOG, PT/AP, MG3 #### [address] [address] [place] [address] Urea nitrogen [Mass/Vol] 14 mg/dL Normal 7-20 [facility] Comment on above: Performed By: #### B MP3, PHOS3, HEMOG, PT/AP, MG3 #### [address] [address] [place] [address] Creatinine [Mass/Vol] 0.76 mg/dL Normal 0.52-1.25 [facility] Comment on above: Performed By: #### B MP3, PHOS3, HEMOG, PT/AP, MG3 #### [facility] [address] [place] [address] GFR/1.73 sq M predicted among blacks MDRD (S/P/Bld) [Vol rate/Area] mL/min/{1.73_m2} Normal >60 [facility] Comment on above: Performed By: #### B MP3, PHOS3, HEMOG, PT/AP, MG3 #### [facility] [address] [place] [address] GFR/1.73 sq M predicted among non-blacks MDRD (S/P/Bld) [Vol rate/Area] mL/min/{1.73_m2} Normal >60 [facility] Comment on above: Result Comment: KDIG [...] B MP3, PHOS3, HEMOG, PT/AP, MG3 #### [facility] [address] [place] [address] Potassium [Moles/Vol] 3.8 mmol/L Normal 3.5-5.1 [facility] Comment on above: Performed By: #### B MP3, PHOS3, HEMOG, PT/AP, MG3 #### [facility] [address] [place] [address] Chloride [Moles/Vol] 107 mmol/L Normal 98-107 [facility] Comment on above: Performed By: #### B MP3, PHOS3, HEMOG, PT/AP, MG3 #### [facility] [address] [place] [address] Sodium [Moles/Vol] 137 mmol/L Normal 135-145 [facility] Comment on above: Performed By: #### B MP3, PHOS3, HEMOG, PT/AP, MG3 #### [facility] [address] [place] [address] Anion gap [Moles/Vol] 8 mmol/L [place] Calcium [Mass/Vol] 11.5 mg/dL High 8.4 - 10. 4 mg/dL [place] Chloride [Moles/Vol] 107 mmol/L 98 - 10 7 mmol/L [place] CO2 [Moles/Vol] 22 mmol/L 22 - 30 mmol/L [place] Creatinine [Mass/Vol] 0.76 mg/dL 0.52 - 1.25 mg/dL [place] EGFR IF NonAfrican [place] Citizen >90.0 >60 mL/min [place] Comment on above: KDIGO guidelines pro [...] MDRD (S/P/Bld) [Vol rate/Area] mL/min/{1.73_m2} >60 mL/min [place] Glucose [Mass/Vol] 148 mg/dL High 70 - 100 mg/dL [place] Potassium [Moles/Vol] 3.8 mmol/L 3.5 - 5.1 mmol/L [place] Sodium [Moles/Vol] 137 mmol/L 135 - 145 mmol/L [place] Urea nitrogen [Mass/Vol] 14 mg/dL 7 - 20 mg/dL [place] Blood Gas, Arterialon 2019 Base Excess, Arterial -1.1 mmol/L -3 - 3 mmol/L [place] HCO3, Arterial 23.9 mmol/L 21 - 25 mmol/L [place] Hemoglobin (Bld) [Mass/Vol] 8.6 g/dL ScreenOnly [place] Interpretation and review of laboratory results Abnormal [place] Oxygen saturation in Blood 99.3 % 95 - 100 % [place] pCO2, Arterial 41.1 mm[Hg] 35 - 45 mm[Hg] [place] pH, Arterial 7.383 [place] pO2, Arterial 393.5 mm[Hg] High 80 - 100 mm[Hg] [place] Sodium [Moles/Vol] No data [place] TCO2, Arterial 25.2 mmol/L 23 - 27 mmol/L [place] Test Performed by [facility], [address] [place] [address] [place] CBCon 05-08-2020 Erythrocyte distribution width (RBC) [Ratio] 13.2 % 11.5 - 14.5 % [place] Hematocrit (Bld) [Volume fraction] 24.7 % Low 40 - 52 % [place] Hemoglobin (Bld) [Mass/Vol] 8.6 g/dL Low 13 - 18 g/dL [place] Interpretation and review of laboratory results Abnormal [place] MCH (RBC) [Entitic mass] 30.9 pg 26 - 34 pg [place] MCHC (RBC) [Mass/Vol] 34.8 % 32 - 36 % [place] MCV (RBC) [Entitic vol] 88.8 fL 80 - 98 fL [place] Platelet mean volume (Bld) [Entitic vol] 7.8 fL 7.4 - 10.4 fL [place] Platelets (Bld) [#/Vol] 103 10*3/uL Low 140 - 440 10*3/uL [place] RBC (Bld) [#/Vol] 2.78 10*6/uL Low 4.4 - 5.9 10*6/uL [place] WBC (Bld) [#/Vol] 6.1 10*3/uL 3.6 - 10.7 10*3/uL [place] Test Performed by [id number] [place] [address] Erythrocyte distribution width (RBC) [Ratio] 12.8 % 11.5 - 14.5 % [place] Hematocrit (Bld) [Volume fraction] 23.8 % Low 40 - 52 % [place] Hemoglobin (Bld) [Mass/Vol] 8.3 g/dL Low 13 - 18 g/dL [place] Interpretation and review of laboratory results Abnormal [place] MCH (RBC) [Entitic mass] 31.2 pg 26 - 34 pg [place] MCHC (RBC) [Mass/Vol] 35.0 % 32 - 36 % [place] MCV (RBC) [Entitic vol] 89.1 fL 80 - 98 fL [place] Platelet mean volume (Bld) [Entitic vol] 7.6 fL 7.4 - 10.4 fL [place] Platelets (Bld) [#/Vol] 81 10*3/uL Low 140 - 440 10*3/uL [place] RBC (Bld) [#/Vol] 2.67 10*6/uL Low 4.4 - 5.9 10*6/uL [place] WBC (Bld) [#/Vol] 5.6 10*3/uL 3.6 - 10.7 10*3/uL [place] Test Performed by [facility], [address] [place] [address] [place] CR Chest Portableon 05-08-20 20 CR Chest Portable Patient Name: ASCENCION MONTOYA Diagnostic Radiology Exam Date/Time 05/08/2020 12:54:00 EDT Exam CR Chest Portable Ordering Physician JEAN CLAUDE KILLIAN Accession Number [id number] CPT4 Codes 47549 () Reason For Exam ETT placement Report Reason for examination: ET tube placement. A portable chest is obtained at 1231 hours. Comparison is dated 05/01/2020. The patient is mildly rotated. An ET tube is present with the tip approximately 3 cm above the rey. A [place]-Perez catheter is present on the right with [...] Transcribed Date and Time: 05/08/2020 1:30 Normal [facility] Calcium, Ionizedon 0 Interpretation and review of laboratory results Abnormal [place] Ionized Ca 6.20 mg/dL High 4.3 - 5.2 mg/dL [place] pH (Bld) 7.39 [pH] [place] Test Performed by [facility], [facility] [place] [address] [place] Calcium,Ionizedon 05-08-2020 Ionized Ca,Measured 6.20 mg/dL High 4.30-5.20 [facility] Comment on above: Performed By: #### B MP3, PHOS3, HEMOG, PT/AP, MG3 #### [facility] [address] [place] [address] pH, Ionized Calcium 7.39 Normal 7.31-7.46 [facility] Comment on above: Performed By: #### B MP3, PHOS3, HEMOG, PT/AP, MG3 #### [facility] [address] [place] [address] Echo 2D/3D ZAINAB w/wo Contrast on 05-08-2020 Echo 2D/3D ZAINAB w/wo Contrast Patient Name: ASCENCION WEIR Ultrasound Exam Date/Time 05/08/2020 08:50:14 EDT Exam Echo 2D/3D ZAINAB w/wo Contrast Ordering Physician NINA SAVAGE MATTHEW R. Accession Number [id number] Reason For Exam Surgery Addendum TRANSESOPHAGEAL ECHOCARDIOGRAM Intraoperative-Pre and Post Pump (AMENDED REPORT ) PATIENT: Carmella, STUDY DATE: 05/08/2020 Ascencion Aponte : 1950 AGE: 69 HT/WT: 172.7 cm (68 99.8 kg (219.5 in) lb) GENDER: M BP: LOCATION: [facility] PATIENT Inpatient main STATUS: *ORDERING PHYSICIAN: * Gabe Savage *READING PHYSICIAN: * Rachael Murry *CLIPPER COUNTERS: * Margie MAYA MD INDICATIONS: Coronary artery [...] (219.5 in) lb) GENDER: M BP: LOCATION: [facility] PATIENT Inpatient main STATUS: *ORDERING PHYSICIAN: * Gabe Savage *READING PHYSICIAN: * Rachael Murry *CLIPPER COUNTERS: * Margie MAYA MD INDICATIONS: Coronary artery [...] am Signed by: RACHAEL MURRY DO Normal [facility] Glucose,Bedsideon 05-08-2020 Glucose [Mass/Vol] 78 mg/dL Normal 70-100 [facility] Comment on above: Result Comment: Test performed by glucose meter. Results may be 10%-15% lower than serum/plasma values. (CLIA ID [id number]) Performed By: #### B MP3, PHOS3, HEMOG, PT/AP, MG3 #### [address] [place] [address] Glucose [Mass/Vol] 77 mg/dL Normal 70-100 [facility] Comment on above: Result Comment: Test performed by glucose meter. Results may be 10%-15% lower than serum/plasma values. (CLIA ID [id number]) Performed By: #### H EMDF #### [address] [place] [address] Glucose [Mass/Vol] 76 mg/dL Normal 70-100 [facility] Comment on above: Result Comment: Test performed by glucose meter. Results may be 10%-15% lower than serum/plasma values. (CLIA ID [id number]) Performed By: #### B MP3, PHOS3, HEMOG, PT/AP, MG3 #### [address] [place] [address] Glucose [Mass/Vol] 90 mg/dL Normal 70-100 [facility] Comment on above: Result Comment: Test performed by glucose meter. Results may be 10%-15% lower than serum/plasma values. (CLIA ID [id number]) Performed By: #### B MP3, PHOS3, HEMOG, PT/AP, MG3 #### [address] [place] [address] Glucose [Mass/Vol] 112 mg/dL High 70-100 [facility] Comment on above: Result Comment: Test performed by glucose meter. Results may be 10%-15% lower than serum/plasma values. (CLIA ID [id number]) Performed By: #### M G3, BMP3 #### [address] [place] [address] Glucose [Mass/Vol] 138 mg/dL High 70-100 [facility] Comment on above: Result Comment: Test performed by glucose meter. Results may be 10%-15% lower than serum/plasma values. (CLIA ID [id number]) Performed By: #### B MP3, PHOS3, HEMOG, PT/AP, MG3 #### [facility] [address] [place] [address] Glucose [Mass/Vol] 156 mg/dL High 70-100 [facility] Comment on above: Result Comment: Test performed by glucose meter. Results may be 10%-15% lower than serum/plasma values. (CLIA ID [id number]) Performed By: #### B MP3, PHOS3, HEMOG, PT/AP, MG3 #### [facility] [address] [place] [address] Glucose [Mass/Vol] 159 mg/dL High 70-100 [facility] Comment on above: Result Comment: Test performed by glucose meter. Results may be 10%-15% lower than serum/plasma values. (CLIA ID [id number]) Performed By: #### M G3, BMP3 #### [facility] [address] [place] [address] Glucose [Mass/Vol] 142 mg/dL High 70-100 [facility] Comment on above: Result Comment: Test performed by glucose meter. Results may be 10%-15% lower than serum/plasma values. (CLIA ID [id number]) Performed By: #### M G3, BMP3 #### [employer] [facility] [address] [place] [address] Glucose [Mass/Vol] 120 mg/dL High 70-100 [facility] Comment on above: Result Comment: Test performed by glucose meter. Results may be 10%-15% lower than serum/plasma values. (CLIA ID [id number]) Performed By: #### M G3, BMP3 #### [employer] [facility] [address] [place] [address] Glucose [Mass/Vol] 113 mg/dL High 70-100 [facility] Comment on above: Result Comment: Test performed by glucose meter. Results may be 10%-15% lower than serum/plasma values. (CLIA ID [id number]) Performed By: #### M G3, BMP3 #### [employer] [facility] [address] [place] [address] Hematologyon 05-08-2020 ABO and Rh group Nom (Bld) 6[address] [facility] [place], [place] Hemogramon 05-08-2020 Erythrocyte distribution width (RBC) [Ratio] 12.8 % Normal 11.5-14.5 [facility] Comment on above: Performed By: #### B MP3, PHOS3, HEMOG, PT/AP, MG3 #### [address] [place] Hematocrit (Bld) [Volume fraction] 23.8 % Low 40.0-52.0 [facility] Comment on above: Performed By: #### B MP3, PHOS3, HEMOG, PT/AP, MG3 #### [address] [address] [place] Hemoglobin (Bld) [Mass/Vol] 8.3 g/dL Low 13.0-18.0 [facility] Comment on above: Performed By: #### B MP3, PHOS3, HEMOG, PT/AP, MG3 #### [address] [place] MCH (RBC) [Entitic mass] 31.2 pg Normal 26.0-34.0 [facility] Comment on above: Performed By: #### B MP3, PHOS3, HEMOG, PT/AP, MG3 #### [address] [place] MCHC (RBC) [Mass/Vol] 35.0 % Normal 32.0-36.0 [facility] Comment on above: Performed By: #### B MP3, PHOS3, HEMOG, PT/AP, MG3 #### [address] [address] [place] MCV (RBC) [Entitic vol] 89.1 fL Normal 80.0-98.0 [facility] Comment on above: Performed By: #### B MP3, PHOS3, HEMOG, PT/AP, MG3 #### [address] [address] [place], [place] Platelet mean volume (Bld) [Entitic vol] 7.6 fL Normal 7.4-10.4 [facility] Comment on above: Performed By: #### B MP3, PHOS3, HEMOG, PT/AP, MG3 #### [address] [place] Platelets (Bld) [#/Vol] 81 10*3/uL Low 140-440 [facility] Comment on above: Performed By: #### B MP3, PHOS3, HEMOG, PT/AP, MG3 #### [address] [place] RBC (Bld) [#/Vol] 2.67 10*6/uL Low 4.40-5.90 [facility] Comment on above: Performed By: #### B MP3, PHOS3, HEMOG, PT/AP, MG3 #### [address] [place] WBC (Bld) [#/Vol] 5.6 10*3/uL Normal 3.6-10.7 [facility] Comment on above: Performed By: #### B MP3, PHOS3, HEMOG, PT/AP, MG3 #### [address] [place] Magnesiumon 05-08-2020 Magnesium [Mass/Vol] 3.5 mg/dL High 1.6-2.3 [facility] Comment on above: Performed By: #### B MP3, PHOS3, HEMOG, PT/AP, MG3 #### [address] [place] Magnesium [Mass/Vol] 3.5 mg/dL High 1.6 - 2 .3 mg/dL [place] Metabolic Panelon 05-08-2020 Sodium [Moles/Vol] [id number] [place] Sodium [Moles/Vol] [id number] mmol/L [place] Sodium [Moles/Vol] released [place] Op Noteon 05-08-2020 Op Note PATIENT: [...] artery disease, symptomatic severe aortic stenosis. Anesthesia: Marketing And Development Coordinator: Daxa Sommer. Clinical History: The patient is [...] heart and lung unit. [employer] Job ID: [id number] Jean Claude Killian MD DOD:05/08/2020 01:39 P EE/dsk DOT:05/08/2020 02:35 P Job Number: [id number] Document Number: [id number] cc: Jean Claude Killian MD [facility] [address] [address] Normal [facility] Otheron 05-08-2020 [place] Interpretation and review of laboratory results Abnormal [place] Test Performed by [facility], [address] [place] [id number] [place] [address] POCT Glucoseon 05-08-2020 Glucose [Mass/Vol] 84 mg/dL 70 - 100 mg/dL [place] Comment on above: Test performed by gl ucose meter. Results may be 10%-15% lower than serum/plasma values. (CLIA ID [id number]) Test Performed by [facility], [facility] [place], [place] [id number] [place] [address] Glucose [Mass/Vol] 78 mg/dL 70 - 100 mg/dL [place] Comment on above: Test performed by gl ucose meter. Results may be 10%-15% lower than serum/plasma values. (CLIA ID [id number]) Test Performed by [facility], [address] [place] [address] [facility], [place] Glucose [Mass/Vol] 77 mg/dL 70 - 100 mg/dL [facility], [place] Comment on above: Test performed by gl ucose meter. Results may be 10%-15% lower than serum/plasma values. (CLIA ID [id number]) Test Performed by [facility], [address] [place] [address] [facility], [place] Glucose [Mass/Vol] 76 mg/dL 70 - 100 mg/dL [facility], [place] Comment on above: Test performed by gl ucose meter. Results may be 10%-15% lower than serum/plasma values. (CLIA ID [id number]) Test Performed by [facility], [address] [place] [address] [facility], [place] Glucose [Mass/Vol] 90 mg/dL 70 - 100 mg/dL [facility], [place] Comment on above: Test performed by gl ucose meter. Results may be 10%-15% lower than serum/plasma values. (CLIA ID [id number]) Test Performed by [facility], [address] [place] [address] [facility], [place] Glucose [Mass/Vol] 112 mg/dL High 70 - 100 mg/dL [facility], [place] Comment on above: Test performed by gl ucose meter. Results may be 10%-15% lower than serum/plasma values. (CLIA ID [id number]) Interpretation and review of laboratory results Abnormal [facility] [place] Test Performed by [facility], [address] [place] [address] [facility] [place], [place] Glucose [Mass/Vol] 138 mg/dL High 70 - 100 mg/dL [facility], [place] Comment on above: Test performed by gl ucose meter. Results may be 10%-15% lower than serum/plasma values. (CLIA ID [id number]) Interpretation and review of laboratory results Abnormal [facility] [place] Test Performed by [facility], [address] [place] [address] [facility] [place], [place] Glucose [Mass/Vol] 156 mg/dL High 70 - 100 mg/dL [facility] [place] Comment on above: Test performed by gl ucose meter. Results may be 10%-15% lower than serum/plasma values. (CLIA ID [id number]) Interpretation and review of laboratory results Abnormal [facility] [place] Test Performed by [facility], [address] [place] [address] [facility] [place] Glucose [Mass/Vol] 159 mg/dL High 70 - 100 mg/dL [facility] [place] Comment on above: Test performed by gl ucose meter. Results may be 10%-15% lower than serum/plasma values. (CLIA ID [id number]) Interpretation and review of laboratory results Abnormal [facility] [place] Test Performed by [facility], [address] [place] [address] [facility] [place] Glucose [Mass/Vol] 142 mg/dL High 70 - 100 mg/dL [facility] [place] Comment on above: Test performed by gl ucose meter. Results may be 10%-15% lower than serum/plasma values. (CLIA ID [id number]) Interpretation and review of laboratory results Abnormal [facility] [place] Test Performed by [facility], [address] [place] [address] [facility] [place] Glucose [Mass/Vol] 120 mg/dL High 70 - 100 mg/dL [facility] [place] Comment on above: Test performed by gl ucose meter. Results may be 10%-15% lower than serum/plasma values. (CLIA ID [id number]) Interpretation and review of laboratory results Abnormal [facility] [place] Test Performed by [facility], [address] [place] [address] [facility] [place] Glucose [Mass/Vol] 113 mg/dL High 70 - 100 mg/dL [facility] [place] Comment on above: Test performed by gl ucose meter. Results may be 10%-15% lower than serum/plasma values. (CLIA ID [id number]) Interpretation and review of laboratory results Abnormal [facility] [place] Test Performed by [facility], [address] [place] [address] [place] PREPARE FRESH FROZEN PLASMAo n 05-08-2020 Blood product unit ID (Dose) [#] [id number] [place] Blood product unit ID (Dose) [#] [id number] [place] PREPARE PLATELETSon 05-08-20 20 ABO and Rh group Nom (Bld) 7300 [place] Blood product unit ID (Dose) [#] [id number] [place] Sodium [Moles/Vol] [id number] [place] Sodium [Moles/Vol] [id number] mmol/L [place] Pheresis Leuko Reducedon Pheresis Leuko Reduced Pheresis Leuko Re duced: [id number] released 05/08/20 11:39 JH4 Unit Blood Type: B Unit Blood Rh: POS Blood Product Code: PA2 Unit Number: [id number] Unit Status: released Barcoded Unit Number: =[id number] Barcoded Product Code: = Barcoded ABO/Rh: =%7300 Unit Expiration: [id number] Normal [facility] Comment on above: Performed By: #### M G3, BMP3 #### [address] [address] Phosphoruson 05-08-2020 Phosphate [Mass/Vol] 3.2 mg/dL Normal 2.5-4.5 [facility] Comment on above: Performed By: #### B MP3, PHOS3, HEMOG, PT/AP, MG3 #### [address] [address] Phosphate [Mass/Vol] 3.2 mg/dL 2.5 - 4 .5 mg/dL [place] Protime AND APTTon 0 aPTT Coag (Bld) [Time] 23.9 s Normal 20.0-30.5 [facility] Comment on above: Result Comment: NOTE : The therapeutic time for Heparin anticoagulation, based on Xa activity inhibition, is an APTT of 46-80 seconds. Performed By: #### B MP3, PHOS3, HEMOG, PT/AP, MG3 #### [address] INR Coag (PPP) [Relative time] 1.5 High 0.9-1.1 [facility] Comment on above: Result Comment: Naeem [...] B MP3, PHOS3, HEMOG, PT/AP, MG3 #### [address] PT Coag (PPP) [Time] 15.7 s High 9.0-12.0 [facility] Comment on above: Result Comment: . Performed By: #### B MP3, PHOS3, HEMOG, PT/AP, MG3 #### [address] [address] Protime-INRon 05-08-2020 INR Coag (PPP) [Relative time] 1.1 {INR} [place] Comment on above: Recommended Anticoag ulant [...] Interpretation and review of laboratory results Abnormal [place] PT Coag (PPP) [Time] 12.1 s High 9 - 12 s [place] Comment on above: . Test Performed by [facility], [address] [place] [id number] [place] [address] Protime/INR & PTTon 05-08-20 20 aPTT Coag (Bld) [Time] 23.9 s 20 - 30.5 s M [place] Comment on above: NOTE: The therapeuti c time for Heparin anticoagulation, based on Xa activity inhibition, is an APTT of 46-80 seconds. INR Coag (PPP) [Relative time] 1.5 {INR} [place] Comment on above: Recommended Anticoag ulant [...] Interpretation and review of laboratory results Abnormal [place] PT Coag (PPP) [Time] 15.7 s High 9 - 12 s [place] Comment on above: . Test Performed by [facility], [address] [place] [address] Surgical Pathologyon 020 Surgical Pathology [id number] [facility] PATH[facility]ORATORY MEDICINE [address] [place], [place] [id number] FINAL SURGICAL PATHOLOGY REPORT NAME: ASCENCION WEIR : 1950 69 Y M BILLCORBY NO.: [id number] LOCATION: [id number] 21 PROCEDURE 05/08/2020 DATE: SURGEON: JEAN [...] characteristics determined by the clinical laboratories of [facility]. They have not been cleared by the [...] negativity on decalcified specimens. Professional Performing Location: [address] [address]. DEPARTMENT OF PATHOLOGY AND LABORATORY MEDICINE [place], [place] [address] Normal [facility] XR CHEST PORTABLEon 05-08-20 [place], [facility] Incoming Radiology Results From [facility] - 05/08/2020 1:38 PM EDT Patient Name: ASCENCION WEIR ---Diagnostic Radiology--- Exam Date/Time 05/08/2020 12:54:00 EDT Exam CR Chest Portable Ordering Physician JEAN CLAUDE KILLIAN Accession Number [id number] CPT4 Codes 27480 () Reason For Exam ETT placement Report Reason for examination: ET tube placement. A portable chest is obtained at 1231 hours. Comparison is dated 05/01/2020. The patient is mildly rotated. An ET tube is present with the tip approximately 3 cm above the rey. A [place]-Perez catheter is present on the right with [...] B Transcribed Date and Time: 05/08/2020 1:30 [place] Patient Name: ASCENCION MONTOYA ---Diagnostic Radiology--- Exam Date/Time 05/08/2020 12:54:00 EDT Exam CR Chest Portable Ordering Physician JEAN CLAUDE KILLIAN Accession Number [id number] CPT4 Codes 84464 () Reason For Exam ETT placement Report Reason for examination: ET tube placement. A portable chest is obtained at 1231 hours. Comparison is dated 05/01/2020. The patient is mildly rotated. An ET tube is present with the tip approximately 3 cm above the rey. A [place]-Perez catheter is present on the right with [...] B Transcribed Date and Time: 05/08/2020 1:30 [place] [id number] 05-06-2020 SARS-CoV-2 SARS-CoV-2 --> Statu s: F Not Detected Expected Result: Not Detected _ Real-time, RT-PCR performed on the [employer] System by the [facility] Microbiology Service. Negative results do not preclude SARS-CoV-2 infection and should not be used as the sole basis for treatment or other patient management decisions. This assay was developed by [employer] and distributed under an Emergency Use Authorization (EUA) granted by the FDA for the qualitative detection of SARS-CoV-2 nucleic acid. Results were determined from a pool consisting of specimens from additional patients. This test was modified, and its performance characteristics, showing minimal loss of sensitivity, have been validated by the [facility]. Approval is pending review by the U. S. Food and Drug Administration. If symptoms are severe and persist, testing a new specimen may be warranted. Additionally, IgG testing may be considered for patients more than 7-10 days post onset of symptoms. Expected Result: Not Detected _ Real-time, RT-PCR performed on the [employer] System by the [facility] Microbiology Service. Negative results do not preclude SARS-CoV-2 infection and should not be used as the sole basis for treatment or other patient management decisions. This assay was developed by [employer] and distributed under an Emergency Use Authorization (EUA) granted by the FDA for the qualitative detection of SARS-CoV-2 nucleic acid. Results were determined from a pool consisting of specimens from additional patients. This test was modified, and its performance characteristics, showing minimal loss of sensitivity, have been validated by the [facility]. Approval is pending review by the U. S. Food and Drug Administration. If symptoms are severe and persist, testing a new specimen may be warranted. Additionally, IgG testing may be considered for patients more than 7-10 days post onset of symptoms. Normal [facility] Comment on above: Order Comment: PRETE STING Performed By: #### M G3, BMP3 #### [facility] [facility] [address] [place] [address] Staph Aureus Complete Nasalo n 05-06-2020 Staph Aureus Complete Nasal Staph Screen --> Status: F No S. aureus detected. Negative nasal MRSA PCR has a high negative predictive value for MRSA pneumonia. Consider stopping vancomycin if no other clinical indication. Contact Antimicrobial Stewardship for further recommendations. The analytical performance characteristics of this assay have been determined by [employer] in accordance with CLIA regulations. The modifications [...] of this assay have been determined by [employer] in accordance with CLIA regulations. The modifications have not been cleared or approved by the U. S. Food and Drug Administration; however, the FDA has determined that such clearance or approval is not necessary. Normal [facility] Comment on above: Performed By: #### M G3, BMP3 #### [facility] [address] [place] [address] APTTon 05-01-2020 aPTT Coag (Bld) [Time] 27.6 s Normal 20.0-30.5 [facility] Comment on above: Result Comment: NOTE : The therapeutic time for Heparin anticoagulation, based on Xa activity inhibition, is an APTT of 46-80 seconds. Performed By: #### M , BMP3 #### [facility] [address] [facility] [place] [address] aPTT Coag (Bld) [Time] 27.6 s 20 - 30.5 s [place] Comment on above: NOTE: The therapeuti c time for Heparin anticoagulation, based on Xa activity inhibition, is an APTT of 46-80 seconds. CBC auto differentialon Absolute Baso # 0.0 10*3/uL 0 - 0.2 10*3/uL [place] Absolute Neut # 3.7 10*3/uL 1.8 - 7 10*3/uL [place] Basophils/100 WBC (Bld) 0.8 % 0 - 2 % [place] Eosinophils (Bld) [#/Vol] 0.2 10*3/uL 0 - 0.5 10*3/uL [place] Eosinophils/100 WBC (Bld) 3.3 % 1 - 6 % [place] Erythrocyte distribution width (RBC) [Ratio] 13.1 % 11.5 - 14.5 % [place] Granulocytes/100 WBC (Bld) 59.2 % 40 - 80 % [place] Hematocrit (Bld) [Volume fraction] 41.0 % 40 - 52 % [place] Hemoglobin (Bld) [Mass/Vol] 14.3 g/dL 13 - 18 g/dL [place] Interpretation and review of laboratory results Abnormal [place] Lymphocytes (Bld) [#/Vol] 1.6 10*3/uL 1 - 4.3 10*3/uL [place] Lymphocytes/100 WBC (Bld) 26.2 % 20 - 40 % [place] MCH (RBC) [Entitic mass] 31.1 pg 26 - 34 pg [place] MCHC (RBC) [Mass/Vol] 34.8 % 32 - 36 % [place], [place] MCV (RBC) [Entitic vol] 89.4 fL 80 - 98 fL [place] Monocytes (Bld) [#/Vol] 0.7 10*3/uL 0 - 0.8 10*3/uL [place] Monocytes/100 WBC (Bld) 10.5 % High 2 - 10 % [place] Platelet mean volume (Bld) [Entitic vol] 7.8 fL 7.4 - 10.4 fL [place] Platelets (Bld) [#/Vol] 199 10*3/uL 140 - 440 10*3/uL [place] RBC (Bld) [#/Vol] 4.58 10*6/uL 4.4 - 5.9 10*6/uL [place] WBC (Bld) [#/Vol] 6.2 10*3/uL 3.6 - 10.7 10*3/uL [place] Test Performed by [facility], [address] [place] [id number] [place] [address] CR Chest PA/LATon 05-01-2020 CR Chest PA/LAT Patient Name: ASCENCION MONTOYA Diagnostic Radiology Exam Date/Time 05/01/2020 12:37:14 EDT Exam CR Chest PA/LAT Ordering Physician STALIN VAUGHN ALLISON Accession Number [id number] CPT4 Codes 99147 () Reason For Exam preoperative evaluation Report [...] Transcribed Date and Time: 05/01/2020 2:11 Normal [facility] Comp Metabolic Panelon 05-01 ALT [Catalytic activity/Vol] 19 U/L Normal 0-49 [facility] Comment on above: Result Comment: The ALT test is performed by an updated assay method. Please note that the reference intervals have been changed and are now sex specific. Performed By: #### Sandie Cobb BMP3 #### [facility] [address] [place], [place] Calcium [Mass/Vol] 9.7 mg/dL Normal 8.4-10.4 [facility] Comment on above: Performed By: #### Sandie Cobb, BMP3 #### [facility] [address] [place], [place] ALP [Catalytic activity/Vol] 81 U/L Normal 38-126 [facility] Comment on above: Performed By: #### Sandie Cobb, BMP3 #### [facility] [address] [place], [place] Anion gap [Moles/Vol] 10 Normal [facility] Comment on above: Performed By: #### Sandie G3, BMP3 #### [facility] [address] [place], [place] AST [Catalytic activity/Vol] 28 U/L Normal 15-46 [facility] Comment on above: Performed By: #### Sandie G3, BMP3 #### [facility] [address] [place], [place] Bilirubin [Mass/Vol] 0.4 mg/dL Normal 0.2-1.3 [facility] Comment on above: Performed By: #### Sandie G3, BMP3 #### [facility] [address] [place], [place] CO2 [Moles/Vol] 25 mmol/L Normal 22-30 [facility] Comment on above: Performed By: #### Sandie G3, BMP3 #### [place] [address] [address] [place] Creatinine [Mass/Vol] 0.91 mg/dL Normal 0.52-1.25 [facility] Comment on above: Performed By: #### M G3 BMP3 #### [facility] [address] [place] [address] GFR/1.73 sq M predicted among blacks MDRD (S/P/Bld) [Vol rate/Area] mL/min/{1.73_m2} Normal >60 [facility] Comment on above: Performed By: #### Sandie G3, BMP3 #### [facility] [address] [place] [address] GFR/1.73 sq M predicted among non-blacks MDRD (S/P/Bld) [Vol rate/Area] 84.1 mL/min/{1.73_m2} Normal >60 [facility] Comment on above: Result Comment: KDIG [...] tubular creatinine secretion. Performed By: #### Sandie G3 BMP3 #### [facility] [address] [place], [place] Glucose [Mass/Vol] 84 mg/dL Normal 70-100 [facility] Comment on above: Performed By: #### Sandie Cobb BMP3 #### [facility] [address] [place], [place] Protein [Mass/Vol] 7.8 g/dL Normal 6.3-8.2 [facility] Comment on above: Performed By: #### Sandie G3 BMP3 #### [place] [address] [place], [place] Urea nitrogen [Mass/Vol] 16 mg/dL Normal 7-20 [facility] Comment on above: Performed By: #### Sandie G3, BMP3 #### [facility] [address] [place], [place] Potassium [Moles/Vol] 5.5 mmol/L High 3.5-5.1 [facility] Comment on above: Performed By: #### Sandie G3, BMP3 #### [facility] [address] [place] Albumin [Mass/Vol] 4.7 g/dL Normal 3.5-5.0 [facility] Comment on above: Performed By: #### Sandie G3, BMP3 #### [place] [address] [address] [place] Chloride [Moles/Vol] 100 mmol/L Normal 98-107 [facility] Comment on above: Performed By: #### Sandie G3, BMP3 #### [place] [address] [address] [place] Sodium [Moles/Vol] 135 mmol/L Normal 135-145 [facility] Comment on above: Performed By: #### Sandie G3, BMP3 #### [place] [address] [address] [place] Complete Urinalysison 2019 Appearance (U) Clear Normal Clear [facility] Comment on above: Result Comment: . Performed By: #### Sandie G3, BMP3 #### [place] [address] [address] [place] Bilirubin,Urine Negative Normal Negative [facility] Comment on above: Result Comment: . Performed By: #### Sandie G3, BMP3 #### [place] [address] [address] [place], [place] Color (U) Yellow Normal Lt. Yellow [facility] Comment on above: Result Comment: . Performed By: #### Sandie G3, BMP3 #### [place] [address] [address] [place] Glucose Ql (U) Normal Normal Normal (<70) [facility] Comment on above: Result Comment: . Performed By: #### M G3, BMP3 #### [facility] [address] [place], [place] Ketone,Urine Negative Normal Negative [facility] Comment on above: Result Comment: . Performed By: #### M G3, BMP3 #### [facility] [address] [place], [place] Leukocytes,Urine Negative Normal Negative [facility] Comment on above: Result Comment: . Performed By: #### M G3, BMP3 #### [place] [address] [address] [place] Nitrites,Urine Negative Normal Negative [facility] Comment on above: Result Comment: . Performed By: #### M G3, BMP3 #### [place] [address] [address] [place] Occult Blood,Urine Negative Normal Negative [facility] Comment on above: Result Comment: . Performed By: #### M G3, BMP3 #### [place] [address] [address] [place] pH (U) 6.0 Normal 5.0-8.0 [facility] Comment on above: Result Comment: . Performed By: #### M G3, BMP3 #### [place] [address] [address] [place] Protein (U) [Mass/Vol] Negative Normal Negative [facility] Comment on above: Result Comment: . Performed By: #### M G3, BMP3 #### [place] [address] [address] [place] Specific [place],Urine 1.015 Normal 1.005 - 1.030 [facility] Comment on above: Result Comment: . Performed By: #### M G3, BMP3 #### [place] [address] [address] [place] Urobilinogen,Urine Normal Normal Normal (0-1) [facility] Comment on above: Result Comment: . Performed By: #### M G3, BMP3 #### [place] [address] [address] [place] Comprehensive Metabolic Pane servando 05-01-2020 Albumin [Mass/Vol] 4.7 g/dL 3.5 - 5 g/dL [place] ALP [Catalytic activity/Vol] 81 U/L 38 - 126 U/L [place] ALT [Catalytic activity/Vol] 19 U/L 0 - 49 U/L [place] Comment on above: The ALT test is perf ormed by an updated assay method. Please note that the reference intervals have been changed and are now sex specific. Anion gap [Moles/Vol] 10 mmol/L [place], [place] AST [Catalytic activity/Vol] 28 U/L 15 - 46 U/L [place] Bilirubin Ql (U) 0.4 mg/dL 0.2 - 1.3 mg/dL [place] Calcium [Mass/Vol] 9.7 mg/dL 8.4 - 10. 4 mg/dL [place] Chloride [Moles/Vol] 100 mmol/L 98 - 10 7 mmol/L [place] CO2 [Moles/Vol] 25 mmol/L 22 - 30 mmol/L [place] Creatinine [Mass/Vol] 0.91 mg/dL 0.52 - 1.25 mg/dL [place] EGFR IF NonAfrican [place] Citizen 84.1 mL/min >60 [place] Comment on above: KDIGO guidelines pro [...] MDRD (S/P/Bld) [Vol rate/Area] mL/min/{1.73_m2} >60 mL/min [place] Glucose [Mass/Vol] 84 mg/dL 70 - 100 mg/dL [place] Interpretation and review of laboratory results Abnormal [place] Potassium [Moles/Vol] 5.5 mmol/L High 3.5 - 5.1 mmol/L [place] Protein [Mass/Vol] 7.8 g/dL 6.3 - 8.2 g/dL [place] Sodium [Moles/Vol] 135 mmol/L 135 - 145 mmol/L [place] Urea nitrogen [Mass/Vol] 16 mg/dL 7 - 20 mg/dL [place] Hemoglobin A1Con 05-01-2020 HbA1c (Bld) [Mass fraction] 117 mg/dL Normal [facility] Comment on above: Performed By: #### M G3, BMP3 #### [address] HbA1c (Bld) [Mass fraction] 5.7 % Normal 4.0-6.0 [facility] Comment on above: Result Comment: --Hg bA1C levels may not be accurate in patients who have renal disease, received recent blood transfusions, are anemic, or who have dyshemoglobinemia. Performed By: #### M G3, BMP3 #### [address] [address] Hemoglobin A1con 05-01-2020 eAG 117 mg/dL [place] HbA1c (Bld) [Mass fraction] 5.7 % 4 - 6 % [place] Comment on above: --HgbA1C levels may not be accurate in patients who have renal disease, received recent blood transfusions, are anemic, or who have dyshemoglobinemia. Test Performed by [id number] [place] [address] Hemogram w/ Autodiffon 05-01 Abs Baso Cnt 0.0 10*3/uL Normal 0.0-0.2 [facility] Comment on above: Performed By: #### M G3, BMP3 #### [place] [address] [place] [address] Abs Neutrophile Cnt 3.7 10*3/uL Normal 1.8-7.0 [facility] Comment on above: Performed By: #### M G3, BMP3 #### [facility] [address] [place] [address] Basophils/100 WBC (Bld) 0.8 % Normal 0.0-2.0 [facility] Comment on above: Performed By: #### M G3, BMP3 #### [facility] [address] [place] [address] Eosinophils (Bld) [#/Vol] 0.2 10*3/uL Normal 0.0-0.5 [facility] Comment on above: Performed By: #### M G3, BMP3 #### [facility] [address] [place] [address] Eosinophils/100 WBC (Bld) 3.3 % Normal 1.0-6.0 [facility] Comment on above: Performed By: #### M G3, BMP3 #### [place] [address] [place] [address] Erythrocyte distribution width (RBC) [Ratio] 13.1 % Normal 11.5-14.5 [facility] Comment on above: Performed By: #### M G3, BMP3 #### [facility] [address] [place] [address] Granulocytes/100 WBC (Bld) 59.2 % Normal 40.0-80.0 [facility] Comment on above: Performed By: #### M G3, BMP3 #### [facility] [address] [place] [address] Hematocrit (Bld) [Volume fraction] 41.0 % Normal 40.0-52.0 [facility] Comment on above: Performed By: #### M G3, BMP3 #### [facility] [address] [place] [address] Hemoglobin (Bld) [Mass/Vol] 14.3 g/dL Normal 13.0-18.0 [facility] Comment on above: Performed By: #### M G3, BMP3 #### [facility] [address] [place] [address] Lymphocytes (Bld) [#/Vol] 1.6 10*3/uL Normal 1.0-4.3 [facility] Comment on above: Performed By: #### M G3, BMP3 #### [facility] [address] [place] [address] Lymphocytes/100 WBC (Bld) 26.2 % Normal 20.0-40.0 [facility] Comment on above: Performed By: #### M G3, BMP3 #### [facility] [address] [place] [address] MCH (RBC) [Entitic mass] 31.1 pg Normal 26.0-34.0 [facility] Comment on above: Performed By: #### M G3, BMP3 #### [facility] [address] [place] MCHC (RBC) [Mass/Vol] 34.8 % Normal 32.0-36.0 [facility] Comment on above: Performed By: #### Sadnie G3, BMP3 #### [facility] [address] [place], [place] MCV (RBC) [Entitic vol] 89.4 fL Normal 80.0-98.0 [facility] Comment on above: Performed By: #### M G3, BMP3 #### [facility] [address] [place] Monocytes (Bld) [#/Vol] 0.7 10*3/uL Normal 0.0-0.8 [facility] Comment on above: Performed By: #### M G3, BMP3 #### [facility] [address] [place] [address] Monocytes/100 WBC (Bld) 10.5 % High 2.0-10.0 [facility] Comment on above: Performed By: #### M G3, BMP3 #### [facility] [address] [place] Platelet mean volume (Bld) [Entitic vol] 7.8 fL Normal 7.4-10.4 [facility] Comment on above: Performed By: #### M G3, BMP3 #### [facility] [address] [place] Platelets (Bld) [#/Vol] 199 10*3/uL Normal 140-440 [facility] Comment on above: Performed By: #### M G3, BMP3 #### [facility] [address] [place] RBC (Bld) [#/Vol] 4.58 10*6/uL Normal 4.40-5.90 [facility] Comment on above: Performed By: #### M G3, BMP3 #### [facility] [address] [place] WBC (Bld) [#/Vol] 6.2 10*3/uL Normal 3.6-10.7 [facility] Comment on above: Performed By: #### M G3, BMP3 #### [facility] [address] [place] Magnesiumon 05-01-2020 Magnesium [Mass/Vol] 1.6 mg/dL Normal 1.6-2.3 [facility] Comment on above: Performed By: #### Sandie G3, BMP3 #### [facility] [address] [place] Magnesium [Mass/Vol] 1.6 mg/dL 1.6 - 2 .3 mg/dL [place], [place] Metabolic Panelon 05-01-2020 Sodium [Moles/Vol] Negative [place], [place] Otheron 05-01-2020 Test Performed by [id number] [place] [address] Test Performed by [id number] [address], [place] Prothrombin Timeon 0 INR Coag (PPP) [Relative time] 1.0 Normal 0.9-1.1 [facility] Comment on above: Result Comment: Naeem [...] Performed By: #### M G3, BMP3 #### [place] [place] [address] PT Coag (PPP) [Time] 11.3 s Normal 9.0-12.0 [facility] Comment on above: Result Comment: . Performed By: #### M G3, BMP3 #### [address] [place] [place] [address] Protime-INRon 05-01-2020 INR Coag (PPP) [Relative time] 1.0 {INR} [place], [place] Comment on above: Recommended Anticoag ulant [...] [Time] 11.3 s 9 - 12 s [place], [place] Comment on above: . TS GELon 05-01-2020 TS GEL ABO Group: O Rh, Gel: NEG Antibody Screen Gel: NEG Normal [facility] Comment on above: Performed By: #### M G3, BMP3 #### [address] [address] [place] [address] TYPE AND SCREENon 05-01-2020 Sodium [Moles/Vol] O [place] Test Performed by [id number] [place] [address] Urinalysison 05-01-2020 Appearance (U) Clear Clear NA [place] Comment on above: . Bilirubin Urine Negative Negative mg/dL [place] Comment on above: . Color (U) Yellow Lt. Yellow NA [place] Comment on above: . Glucose, Ur Normal Normal (<70) mg/dL [place] Comment on above: . Ketones Ql (U) Negative Negative mg/dL [place] Comment on above: . LEUKOCYTES, UA Negative Negative Mary/uL [place] Comment on above: . Nitrite, Urine Negative Negative NA [place] Comment on above: . Occult Blood,Urine Negative Negative mg/dL [place] Comment on above: . pH (U) 6.0 [pH] [place] Comment on above: . Protein (U) [Mass/Vol] Negative Negat antonio mg/dL [place] Comment on above: . Specific [place], Urine 1.015 M [place], [place] Comment on above: . Urobilinogen, Urine Normal Normal (0-1) mg/dL [place] Comment on above: . Test Performed by [address] [address] [place] XR CHEST (2 VW)on 05-01-2020 Patient Name: ASCENCION MONTOYA ---Diagnostic Radiology--- Exam Date/Time 05/01/2020 12:37:14 EDT Exam CR Chest PA/LAT Ordering Physician STALIN VAUGHN ALLISON Accession Number [id number] CPT4 Codes 52275 () Reason For Exam preoperative evaluation Report [...] Dictated: 05/01/2020 2:11 pm Dictating Physician: MD PNACHAL JONATHAN R Signed Date and Time: 05/01/2020 2:11 pm Signed by: MD PANCHAL JONATHAN R Transcribed Date and Time: 05/01/2020 2:11 [facility], [place] Incoming Radiology Results From [facility] - 05/01/2020 2:13 PM EDT Patient Name: ASCENCION WEIR ---Diagnostic Radiology--- Exam Date/Time 05/01/2020 12:37:14 EDT Exam CR Chest PA/LAT Ordering Physician STALIN VAUGHN ALLISON Accession Number [id number] CPT4 Codes 40754 () Reason For Exam preoperative evaluation Report [...] R Transcribed Date and Time: 05/01/2020 2:11 [facility], [place] PROGRESSon 12-06-2018 Protein mass conc HNO ID: [id number] Author: Mag (Kathryn) KATHRYN [place] Service: ? Author Type: Clinical 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 Operator Type: Progress Notes Filed: 12/06/2018 1:40 PM Note Text: NAME:Ascencion Weir DATE: December 06, 2018 CCF#: [id number] Spine X-Ray(s): Lumbar AP / LAT / OBL COMPLETED TECH ID SIGN: WILFRID PABLO [facility] XR LUMBAR PARS 4V AP/LAT/OBL X2on 12-06-2018 [...] degenerative changes similar to the previous study Milking System Installer: PSCB Transcribe Date/Time: Dec 06 2018 6:41P Dictated by : RACHEL CHUNG DO This examination was interpreted and the report reviewed and electronically signed by: RACHEL CHUNG DO on Dec 06 2018 6:43PM EST [id number] [facility] Office Visit: postop surgery 03/23/1705-18-2017 Protein mass conc Done Invalid Interpretation Code [facility] Work Phone: Tobacco smoking status NHIS Former Invalid Interpretation Code [facility] Work Phone: [phone] Tobacco smoking status NHIS Former smoker Invalid Interpretation Code [facility] Work Phone: [phone] Microbiology: Culture, Fungu s w/ [id number] 05-06-2017 CUFST . Invalid Interpretation Code [facility] Work Phone: [phone] GE use only - for LinkLogic import when terms are not otherwise specified . Invalid Interpretation Code [facility] Work Phone: Office Visit: postop surgery 03/23/1705-05-2017 Fall risk assessment No Invalid Interpretation Code [facility] Work Phone: Protein mass conc Done Invalid Interpretation Code [facility] Work Phone: [phone] Tobacco smoking status NHIS Former Invalid Interpretation Code [facility] Work Phone: [phone] Tobacco smoking status NHIS Former smoker Invalid Interpretation Code [facility] Work Phone: [phone] Office Visit: postop surgery 03/23/1704-13-2017 Dietary management education, guidance, and counseling (procedure) yes Invalid Interpretation Code [facility] Work Phone: Documentation of current medications (procedure) Done Invalid Interpretation Code [facility] Work Phone: [phone] Fall risk assessment No Invalid Interpretation Code [facility] Work Phone: [phone] Protein mass conc Done [facility] Work Phone: [phone] Tobacco smoking status NHIS Former Invalid Interpretation Code [facility] Work Phone: [phone] Tobacco smoking status NHIS Former smoker [facility] Work Phone: [phone] Tobacco use [facility] Former smoker Invalid Interpretation Code [facility] Work Phone: [phone] Lab Report: CRPon 04-11-2017 C reactive protein (CRP) 0.465 mg/dL High Units converted. See lab report for original value. [facility] Work Phone: [phone] Lab Report: Comprehensive [place] tabolic Profilon 04-11-2017 Alanine aminotransferase (ALT) 39 U/L Invalid Interpretation Code 12-78 [facility] Work Phone: [phone] Albumin 3.9 g/dL Invalid Interpretation Code 3.4-5.0 [facility] Work Phone: [phone] Albumin/Globulin Ratio 1.1 {ratio} Invalid Interpretation Code 0.9-2.4 [facility] Work Phone: [phone] Alkaline phosphatase (ALP) 100 U/L Invalid Interpretation Code 45-117 [facility] Work Phone: [phone] ALP enzyme act/vol (Bld) 100 U/L Invalid Interpretation Code 45-117 [facility] Work Phone: [phone] Anion gap 6 mmol/L Invalid Interpretation Code 5-15 [facility] Work Phone: [phone] Anion gap 4 molar conc 6 Invalid Interpretation Code 5-15 [facility] Work Phone: [phone] Anion gap molar conc 6 mmol/L 5-[address] [facility] Work Phone: [phone] Aspartate aminotransferase (AST) 20 U/L Invalid Interpretation Code 15-37 [facility] Work Phone: [phone] Bilirubin (total) 0.50 mg/dL Invalid Interpretation Code 0.20-1.00 [facility] Work Phone: [phone] BUN/Creatinine Ratio 14.7 RATIO Invalid Interpretation Code 10-20 [facility] Work Phone: [phone] Calcium 9.1 mg/dL Invalid Interpretation Code 8.5-10.1 [facility] Work Phone: [phone] Chloride 102 mmol/L Invalid Interpretation Code 98-107 [facility] Work Phone: [phone] CO2 30.0 mmol/L Invalid Interpretation Code 21.0-32.0 [facility] Work Phone: [phone] CO2 ppres (BldV) 30.0 mmol/L Invalid Interpretation Code 21.0-32.0 [facility] Work Phone: [phone] Creatinine 1.09 mg/dL Invalid Interpretation Code 0.70-1.30 [facility] Work Phone: [phone] eGFR (non-black) 71 mL/min/{1.73_m2} Invalid Interpretation Code >60 [facility] Work Phone: [phone] eGFR (non-black) 86 mL/min/{1.73_m2} Invalid Interpretation Code >60 [facility] Work Phone: [phone] EST GFR - AA 86 mL/min Invalid Interpretation Code >60 [facility] Work Phone: [phone] Globulin 3.7 g/dL High 2.3-3.5 [facility] Work Phone: [phone] Globulin mass conc (S) 3.7 g/dL High 2.3-3.5 [facility] Work Phone: [phone] Glucose 154 mg/dL High 70-110 [facility] Work Phone: [phone] Glucose mass conc 154 mg/dL High 70-110 [facility] Work Phone: [phone] Potassium 4.0 mmol/L Invalid Interpretation Code 3.5-5.1 [facility] Work Phone: [phone] Protein 7.6 g/dL Invalid Interpretation Code 6.4-8.2 [facility] Work Phone: [phone] Sodium 138 mmol/L Invalid Interpretation Code 136-145 [facility] Work Phone: [phone] Urea nitrogen 16 mg/dL Invalid Interpretation Code 7-18 [facility] Work Phone: [phone] Lab Report: Erythrocyte Sed Rateon 04-11-2017 Erythrocyte sedimentation rate 9 mm/h Invalid Interpretation Code 0-20 [facility] Work Phone: [phone] Lab Report: Vancomycin, Trou gh Levelon 04-11-2017 Vancomycin 11.9 ug/mL Invalid Interpretation Code 5.0-15.0 [facility] Work Phone: [phone] Replaced Document: (P) CBC-C omplete Blood Cnt No Diffon 04-11-2017 Erythrocyte distribution width Auto Ratio (RBC) 40.9 fL Invalid Interpretation Code 35.1-43.9 [facility] Work Phone: [phone] Erythrocyte distribution width Ratio (RBC) 40.9 fL 35.1-43.9 [facility] Work Phone: [phone] Erythrocyte distribution width Ratio (RBC) 12.6 % 11.6-14.6 [facility] Work Phone: [phone] Erythrocytes (RBC) 4.26 10*6/uL Low 4.6-6.[address] [facility] Work Phone: [phone] Hematocrit (HCT) 38.1 % Low 40-54 [facility] Work Phone: [phone] Hematocrit Volume Fraction (Bld) 38.1 % Low 40-54 [facility] Work Phone: [phone] Hemoglobin (HGB) 13.2 g/dL Invalid Interpretation Code 13.0-16.5 [facility] Work Phone: [phone] MCH 31.0 pg Invalid Interpretation Code 27.0-32.0 [facility] Work Phone: [phone] MCH Entitic mass (RBC) 31.0 pg 27.0-32.0 [facility] Work Phone: [phone] MCHC 34.6 G/GL Invalid Interpretation Code 32-36 [facility] Work Phone: [phone] MCHC mass conc (RBC) 34.6 G/GL 32-[address] [facility] Work Phone: [phone] MCV 89.4 fL Invalid Interpretation Code 80-94 [facility] Work Phone: [phone] MCV Entitic volume (RBC) 89.4 fL 80-94 [facility] Work Phone: [phone] Platelet mean volume Entitic volume (Bld) 10.8 fL 6.2-12.0 [facility] Work Phone: [phone] Platelets 189 10*3/mm3 Invalid Interpretation Code 150-450 [facility] Work Phone: [phone] Platelets #/vol (Bld) 189 10*3/mm3 150-450 [facility] Work Phone: [phone] PMV by Fabienne 10.8 fL Invalid Interpretation Code 6.2-12.0 [facility] Work Phone: [phone] RBC #/vol (Bld) 4.26 10*6/uL Low 4.6-6.2 [facility] Work Phone: [phone] RDW-CA 12.6 % Invalid Interpretation Code 11.6-14.6 [facility] Work Phone: [phone] red blood cell distribution width, size density 40.9 fL Invalid Interpretation Code 35.1-43.9 [facility] Work Phone: [phone] WBC #/vol (Bld) 5.5 10*3/uL 4.4-11.0 [facility] Work Phone: [phone] WBC (Leukocytes) 5.5 10*3/uL Invalid Interpretation Code 4.4-11.0 [facility] Work Phone: [phone] Office Visit: postop surgery 03/23/1704-08-2017 Dietary management education, guidance, and counseling (procedure) yes Invalid Interpretation Code [facility] Work Phone: [phone] Documentation of current medications (procedure) Done Invalid Interpretation Code [facility] Work Phone: [phone] Fall risk assessment No Invalid Interpretation Code [facility] Work Phone: [phone] Tobacco smoking status NHIS Former Invalid Interpretation Code [facility] Work Phone: [phone] Tobacco use [facility] Former smoker Invalid Interpretation Code [facility] Work Phone: [phone] Lab Report: Miscellaneous [place] Procedureon 04-06-2017 GE use only - for LinkLogic import when terms are not otherwise specified . Invalid Interpretation Code [facility] Work Phone: [phone] MISC LAB TEST . [facility] Work Phone: [phone] Lab Report: CRPon 04-04-2017 C reactive protein (CRP) 0.307 mg/dL High Units converted. See lab report for original value. [facility] Work Phone: [phone] Lab Report: Vancomycin, Trou gh Levelon 04-04-2017 Vancomycin 12.4 ug/mL Invalid Interpretation Code 5.0-15.0 [facility] Work Phone: [phone] Replaced Document: (P) CBC-C omplete Blood Cnt No Diffon 04-04-2017 Erythrocytes (RBC) 4.13 10*6/uL Low 4.6-6.2 [facility] Work Phone: [phone] Hematocrit (HCT) 37.2 % Low 40-54 [facility] Work Phone: [phone] Hemoglobin (HGB) 12.3 g/dL Low 13.0-16.5 [facility] Work Phone: [phone] MCH 29.8 pg Invalid Interpretation Code 27.0-32.0 [facility] Work Phone: [phone] MCHC 33.1 G/GL Invalid Interpretation Code 32-36 [facility] Work Phone: [phone] MCV 90.1 fL Invalid Interpretation Code 80-94 [facility] Work Phone: [phone] Platelets 206 10*3/mm3 Invalid Interpretation Code 150-450 [facility] Work Phone: [phone] PMV by Fabienne 10.3 fL Invalid Interpretation Code 6.2-12.0 [facility] Work Phone: [phone] RDW-CA 12.8 % Invalid Interpretation Code 11.6-14.6 [facility] Work Phone: [phone] red blood cell distribution width, size density 41.6 fL Invalid Interpretation Code 35.1-43.9 [facility] Work Phone: [phone] WBC (Leukocytes) 4.9 10*3/uL Invalid Interpretation Code 4.4-11.0 [facility] Work Phone: [phone] Office Visit: postop surgery 03/23/17on 03-31-2017 Dietary management education, guidance, and counseling (procedure) yes Invalid Interpretation Code [facility] Work Phone: [phone] Documentation of current medications (procedure) Done Invalid Interpretation Code [facility] Work Phone: [phone] Fall risk assessment No Invalid Interpretation Code [facility] Work Phone: [phone] Tobacco smoking status NHIS Former Invalid Interpretation Code [facility] Work Phone: [phone] Tobacco use [facility] Former smoker Invalid Interpretation Code [facility] Work Phone: [phone] Lab Report: CRPon 03-28-2017 C reactive protein (CRP) 0.976 mg/dL High Units converted. See lab report for original value. [facility] Work Phone: [phone] Lab Report: Comprehensive [place] tabolic Profilon 03-28-2017 Alanine aminotransferase (ALT) 24 U/L Invalid Interpretation Code 12-78 [facility] Work Phone: [phone] Albumin 3.9 g/dL Invalid Interpretation Code 3.4-5.0 [facility] Work Phone: [phone] Albumin/Globulin Ratio 1.1 {ratio} Invalid Interpretation Code 0.9-2.4 [facility] Work Phone: [phone] Alkaline phosphatase (ALP) 102 U/L Invalid Interpretation Code 45-117 [facility] Work Phone: [phone] Anion gap 10 mmol/L Invalid Interpretation Code 5-15 [facility] Work Phone: [phone] Aspartate aminotransferase (AST) 20 U/L Invalid Interpretation Code 15-37 [facility] Work Phone: [phone] Bilirubin (total) 0.30 mg/dL Invalid Interpretation Code 0.20-1.00 [facility] Work Phone: [phone] BUN/Creatinine Ratio 12.6 RATIO Invalid Interpretation Code 10-20 [facility] Work Phone: [phone] Calcium 9.2 mg/dL Invalid Interpretation Code 8.5-10.1 [facility] Work Phone: [phone] Chloride 100 mmol/L Invalid Interpretation Code 98-107 [facility] Work Phone: [phone] CO2 30.0 mmol/L Invalid Interpretation Code 21.0-32.0 [facility] Work Phone: [phone] Creatinine 1.19 mg/dL Invalid Interpretation Code 0.70-1.30 [facility] Work Phone: [phone] eGFR (non-black) 78 mL/min/{1.73_m2} Invalid Interpretation Code >60 [facility] Work Phone: [phone] eGFR (non-black) 65 mL/min/{1.73_m2} Invalid Interpretation Code >60 [facility] Work Phone: [phone] Globulin 3.5 g/dL Invalid Interpretation Code 2.3-3.5 [facility] Work Phone: [phone] Glucose 142 mg/dL High 70-110 [facility] Work Phone: [phone] Potassium 3.5 mmol/L Invalid Interpretation Code 3.5-5.1 [facility] Work Phone: [phone] Protein 7.4 g/dL Invalid Interpretation Code 6.4-8.2 [facility] Work Phone: [phone] Sodium 140 mmol/L Invalid Interpretation Code 136-145 [facility] Work Phone: [phone] Urea nitrogen 15 mg/dL Invalid Interpretation Code 7-18 [facility] Work Phone: [phone] Lab Report: Erythrocyte Sed Rateon 03-28-2017 Erythrocyte sedimentation rate 10 mm/h Invalid Interpretation Code 0-20 [facility] Work Phone: [phone] Microbiology: Culture, Deep Woundon 03-26-2017 CUDW Vancomycin $ 2 S [facility] Work Phone: [phone] GE use only - for LinkLogic import when terms are not otherwise specified Vancomycin $ 2 S Invalid Interpretation Code [facility] Work Phone: [phone] Lab Report: Basic Metabolic Profile (BMP)on 03-25-2017 Anion gap 6 mmol/L Invalid Interpretation Code 5-15 [facility] Work Phone: [phone] Anion gap molar conc 6 mmol/L 5-[address] [facility] Work [phone] BUN/Creatinine Ratio 14.7 RATIO 10-[address] [facility] Work [phone] Calcium 8.6 mg/dL 8.5-10.1 [facility] Work Phone: [phone] Chloride 102 mmol/L 98-107 [facility] Work Phone: [phone] CO2 29.0 mmol/L Invalid Interpretation Code 21.0-32.0 [facility] Work Phone: [phone] CO2 ppres (BldV) 29.0 mmol/L 21.0-32.0 [facility] Work [phone] Creatinine 72.00 mL/min Invalid Interpretation Code [facility] Work [phone] Creatinine 0.95 mg/dL 0.70-1.30 [facility] Work [phone] eGFR (non-black) 101 mL/min/{1.73_m2} Invalid Interpretation Code >60 [facility] Work Phone: [phone] eGFR (non-black) 83 mL/min/{1.73_m2} >60 [facility] Work Phone: [phone] EST GFR - AA 101 mL/min >60 [facility] Work Phone: [phone] Glucose 136 mg/dL High 70-110 [facility] Work Phone: [phone] Glucose mass conc 136 mg/dL High 70-110 [facility] Work [phone] Potassium 4.2 mmol/L 3.5-5.1 [facility] Work [phone] Sodium 137 mmol/L 136-145 [facility] Work Phone: [phone] Urea nitrogen 14 mg/dL 7-18 [facility] Work Phone: [phone] Lab Report: Bedside Glucoseo n 03-25-2017 Glucose 225 mg/dL High 70-110 [facility] Work Phone: [phone] Glucose mass conc 225 mg/dL High 70-110 [facility] Work Phone: [phone] Lab Report: CRPon 03-25-2017 C reactive protein (CRP) 0.842 mg/dL High Units converted. See lab report for original value. [facility] Work Phone: [phone] Lab Report: Erythrocyte Sed Rateon 03-25-2017 Erythrocyte sedimentation rate 30 mm/h High 0-20 [facility] Work Phone: [phone] Lab Report: Hemoglobin A1con 03-25-2017 HbA1c 7.4 % High 4.2-6.3 [facility] Work Phone: [phone] Lab Report: Vancomycin, Trou gh Levelon 03-25-2017 Vancomycin 12.4 ug/mL 5.0-15.0 [facility] Work Phone: [phone] Microbiology: (P) Culture, D [place] [place] 03-25-2017 GE use only - for [employer] import when terms are not otherwise specified . Invalid Interpretation Code [facility] Work Phone: [phone] Replaced Document: (P) CBC-C omplete Blood Cnt No Diffon 03-25-2017 Erythrocyte distribution width Ratio (RBC) 12.0 % 11.6-14.6 [facility] Work Phone: [phone] Erythrocyte distribution width Ratio (RBC) 38.7 fL 35.1-43.9 [facility] Work Phone: [phone] Erythrocytes (RBC) 3.85 10*6/uL Low 4.6-6.[address] [facility] Work Phone: [phone] Hematocrit (HCT) 34.4 % Low 40-54 [facility] Work Phone: [phone] Hematocrit Volume Fraction (Bld) 34.4 % Low 40-54 [facility] Work Phone: [phone] Hemoglobin (HGB) 11.8 g/dL Low 13.0-16.5 [facility] Work Phone: [phone] MCH 30.6 pg Invalid Interpretation Code 27.0-32.0 [facility] Work Phone: [phone] MCH Entitic mass (RBC) 30.6 pg 27.0-32.0 [facility] Work Phone: [phone] MCHC 34.3 G/GL Invalid Interpretation Code 32-36 [facility] Work Phone: [phone] MCHC mass conc (RBC) 34.3 G/GL 32-[address] [facility] Work Phone: [phone] MCV 89.4 fL Invalid Interpretation Code 80-94 [facility] Work Phone: [phone] MCV Entitic volume (RBC) 89.4 fL 80-94 [facility] Work Phone: [phone] Platelet mean volume Entitic volume (Bld) 9.3 fL 6.2-12.0 [facility] Work Phone: [phone] Platelets 164 10*3/mm3 Invalid Interpretation Code 150-450 [facility] Work Phone: [phone] Platelets #/vol (Bld) 164 10*3/mm3 150-450 [facility] Work Phone: [phone] PMV by Fabienne 9.3 fL Invalid Interpretation Code 6.2-12.0 [facility] Work Phone: [phone] RBC #/vol (Bld) 3.85 10*6/uL Low 4.6-6.2 [facility] Work Phone: [phone] RDW-CA 12.0 % Invalid Interpretation Code 11.6-14.6 [facility] Work Phone: [phone] red blood cell distribution width, size density 38.7 fL Invalid Interpretation Code 35.1-43.9 [facility] Work Phone: [phone] WBC #/vol (Bld) 5.4 10*3/uL 4.4-11.0 [facility] Work Phone: [phone] WBC (Leukocytes) 5.4 10*3/uL Invalid Interpretation Code 4.4-11.0 [facility] Work Phone: [phone] Lab Report: Basic Metabolic Profile (BMP)on 03-24-2017 Anion gap 5 mmol/L Invalid Interpretation Code 5-15 [facility] Work Phone: [phone] BUN/Creatinine Ratio 13.5 RATIO Invalid Interpretation Code 10-20 [facility] Work Phone: [phone] Calcium 8.2 mg/dL Low 8.5-10.1 [facility] Work Phone: [phone] Chloride 101 mmol/L Invalid Interpretation Code 98-107 [facility] Work Phone: [phone] CO2 31.0 mmol/L Invalid Interpretation Code 21.0-32.0 [facility] Work Phone: [phone] Creatinine 0.96 mg/dL Invalid Interpretation Code 0.70-1.30 [facility] Work Phone: [phone] Creatinine 71.25 mL/min Invalid Interpretation Code [facility] Work Phone: [phone] eGFR (non-black) 82 mL/min/{1.73_m2} Invalid Interpretation Code >60 [facility] Work Phone: [phone] eGFR (non-black) 100 mL/min/{1.73_m2} Invalid Interpretation Code >60 [facility] Work Phone: [phone] Glucose 98 mg/dL Invalid Interpretation Code 70-110 [facility] Work Phone: [phone] Potassium 4.3 mmol/L Invalid Interpretation Code 3.5-5.1 [facility] Work Phone: [phone] Sodium 137 mmol/L Invalid Interpretation Code 136-145 [facility] Work Phone: [phone] Urea nitrogen 13 mg/dL Invalid Interpretation Code 7-18 [facility] Work Phone: [phone] Lab Report: Bedside Glucoseo n 03-24-2017 Glucose 158 mg/dL High 70-110 [facility] Work Phone: [phone] Lab Report: CBC-Complete Blo od Cnt No Diffon 03-24-2017 Erythrocytes (RBC) 3.95 10*6/uL Low 4.6-6.2 [facility] Work Phone: [phone] Hematocrit (HCT) 35.7 % Low 40-54 [facility] Work Phone: [phone] Hemoglobin (HGB) 12.1 g/dL Low 13.0-16.5 [facility] Work Phone: [phone] MCH 30.6 pg Invalid Interpretation Code 27.0-32.0 [facility] Work Phone: [phone] MCHC 33.9 G/GL Invalid Interpretation Code 32-36 [facility] Work Phone: [phone] MCV 90.4 fL Invalid Interpretation Code 80-94 [facility] Work Phone: [phone] Platelets 184 10*3/mm3 Invalid Interpretation Code 150-450 [facility] Work Phone: [phone] PMV by Fabienne 9.5 fL Invalid Interpretation Code 6.2-12.0 [facility] Work Phone: [phone] RDW-CA 12.3 % Invalid Interpretation Code 11.6-14.6 [facility] Work Phone: [phone] red blood cell distribution width, size density 40.5 fL Invalid Interpretation Code 35.1-43.9 [facility] Work Phone: [phone] WBC (Leukocytes) 7.1 10*3/uL Invalid Interpretation Code 4.4-11.0 [facility] Work Phone: [phone] Microbiology: (P) Culture, D [place]ep [place] 03-24-2017 GE use only - for [employer] import when terms are not otherwise specified . Invalid Interpretation Code [facility] Work Phone: [phone] Lab Report: Basic Metabolic Profile (BMP)on 03-23-2017 Anion gap 4 mmol/L Low 5-15 [facility] Work Phone: [phone] BUN/Creatinine Ratio 21.0 RATIO High 10-[address] [facility] [address] [facility] Work Phone: [phone] Calcium 8.1 mg/dL Low 8.5-10.1 [facility] Work Phone: [phone] Chloride 105 mmol/L Invalid Interpretation Code 98-107 [facility] Work Phone: [phone] CO2 28.0 mmol/L Invalid Interpretation Code 21.0-32.0 [facility] Work Phone: [phone] Creatinine 65.14 mL/min Invalid Interpretation Code [facility] Work Phone: [phone] Creatinine 1.05 mg/dL Invalid Interpretation Code 0.70-1.30 [facility] Work Phone: [phone] eGFR (non-black) 75 mL/min/{1.73_m2} Invalid Interpretation Code >60 [facility] Work Phone: [phone] eGFR (non-black) 90 mL/min/{1.73_m2} Invalid Interpretation Code >60 [facility] Work Phone: [phone] Glucose 190 mg/dL High 70-110 [facility] Work Phone: [phone] Potassium 4.2 mmol/L Invalid Interpretation Code 3.5-5.1 [facility] Work Phone: [phone] Sodium 137 mmol/L Invalid Interpretation Code 136-145 [facility] Work Phone: [phone] Urea nitrogen 22 mg/dL High 7-18 [facility] Work Phone: [phone] Lab Report: Bedside Glucoseo n 03-23-2017 Glucose 203 mg/dL High 70-110 [facility] Work Phone: [phone] Lab Report: Hemoglobin A1con 03-23-2017 HbA1c 7.3 % High 4.2-6.3 [facility] Work Phone: [phone] Lab Report: MRSA Wound DNA b y PCRon 03-23-2017 INR in blood by coagulation Positive High Negative [facility] Work Phone: [phone] Clinical Lists Update: Prelo sign wirer 03-22-2017 Tobacco smoking status NHIS Former smoker [facility] Work Phone: [phone] Tobacco use CPHS Former smoker Invalid Interpretation Code [facility] Work Phone: [phone] Lab Report: CBC-Complete Blo od Cnt No Diffon 03-22-2017 Erythrocytes (RBC) 4.12 10*6/uL Low 4.6-6.[address] [facility] Work Phone: [phone] Hematocrit (HCT) 36.9 % Low 40-54 [facility] Work Phone: [phone] Hemoglobin (HGB) 12.8 g/dL Low 13.0-16.5 [facility] Work Phone: [phone] MCH 31.1 pg Invalid Interpretation Code 27.0-32.0 [facility] Work Phone: [phone] MCHC 34.7 G/GL Invalid Interpretation Code 32-36 [facility] Work Phone: [phone] MCV 89.6 fL Invalid Interpretation Code 80-94 [facility] Work Phone: [phone] Platelets 208 10*3/mm3 Invalid Interpretation Code 150-450 [facility] Work Phone: [phone] PMV by Fabienne 9.7 fL Invalid Interpretation Code 6.2-12.0 [facility] Work Phone: [phone] RDW-CA 12.2 % Invalid Interpretation Code 11.6-14.6 [facility] Work Phone: [phone] red blood cell distribution width, size density 39.3 fL Invalid Interpretation Code 35.1-43.9 [facility] Work Phone: [phone] WBC (Leukocytes) 6.6 10*3/uL Invalid Interpretation Code 4.4-11.0 [facility] Work Phone: [phone] Lab Report: Prealbuminon Prealbumin 23.3 mg/dL Invalid Interpretation Code 20.0-40.0 [facility] Work Phone: [phone] Prealbumin Elph mass conc 23.3 mg/dL Invalid Interpretation Code 20.0-40.0 [facility] Work Phone: [phone] Office Visiton 01-29-2015 Dietary management education, guidance, and counseling (procedure) yes Invalid Interpretation Code [facility] Work Phone: [phone] Documentation of current medications (procedure) Done Invalid Interpretation Code [facility] Work Phone: [phone] Protein mass conc Done [facility] Work Phone: [phone] Tobacco use CPHS Never smoker Invalid Interpretation Code [facility] Work Phone: [phone] Lab Report: Basic Metabolic Profile (BMP)on 08-02-2014 Anion gap 8 mmol/L Invalid Interpretation Code 5-15 [facility] Work Phone: [phone] Anion gap molar conc 8 mmol/L 5-15 [facility] Work Phone: [phone] BUN/Creatinine Ratio 13.0 RATIO Invalid Interpretation Code 10-20 [facility] Work [phone] Calcium 8.0 mg/dL Critically low 8.5-10.1 [facility] Work Phone: [phone] Chloride 97 mmol/L Critically low 98-107 [facility] Work Phone: [phone] CO2 27.0 mmol/L Invalid Interpretation Code 21.0-32.0 [facility] Work Phone: [phone] CO2 ppres (BldV) 27.0 mmol/L 21.0-32.0 [facility] Work Phone: [phone] Creatinine 1.0 mg/dL Invalid Interpretation Code 0.8-1.3 [facility] Work Phone: [phone] eGFR (non-black) 97 mL/min/{1.73_m2} Invalid Interpretation Code >60 [facility] Work [phone] eGFR (non-black) 80 mL/min/{1.73_m2} Invalid Interpretation Code >60 [facility] Work Phone: [phone] EST GFR - AA 97 mL/min >60 [facility] Work Phone: [phone] Glucose 224 mg/dL Critically high 70-110 [facility] Work Phone: [phone] Glucose mass conc 224 mg/dL Critically high 70-110 [facility] Work Phone: [phone] Potassium 3.9 mmol/L Invalid Interpretation Code 3.5-5.1 [facility] Work Phone: [phone] Sodium 132 mmol/L Critically low 136-145 [facility] Work Phone: [phone] Urea nitrogen 13 mg/dL Invalid Interpretation Code 7-18 [facility] Work Phone: [phone] Lab Report: Bedside Glucoseo n 08-02-2014 BEDSIDE GLU 126 mg/dL Critically high 70-110 [facility] Work Phone: [phone] GE use only - for [employer] import when terms are not otherwise specified 126 mg/dL Critically high 70-110 [facility] Work Phone: [phone] Lab Report: CBC-Complete Blo od Cnt No Diffon 08-02-2014 Erythrocytes (RBC) 3.73 10*6/uL Critically low 4.6-6.2 [facility] Work Phone: [phone] Hematocrit (HCT) 32.9 % Critically low 40-[address] [facility] Work Phone: [phone] Hematocrit Volume Fraction (Bld) 32.9 % Critically low 40-54 [facility] Work Phone: [phone] Hemoglobin (HGB) 11.3 g/dL Critically low 13.0-16.[address] [facility] Work Phone: [phone] MCH 30.3 pg Invalid Interpretation Code 27.0-32.0 [facility] Work Phone: [phone] MCH Entitic mass (RBC) 30.3 pg 27.0-32.0 [facility] Work Phone: [phone] MCHC 34.3 G/GL Invalid Interpretation Code 32-36 [facility] Work Phone: [phone] MCHC mass conc (RBC) 34.3 G/GL 32-[address] [facility] Work Phone: [phone] MCV 88.2 fL Invalid Interpretation Code 80-94 [facility] Work Phone: [phone] MCV Entitic volume (RBC) 88.2 fL 80-94 [facility] Work Phone: [phone] Platelet mean volume Entitic volume (Bld) 9.7 fL 6.2-12.0 [facility] Work Phone: [phone] Platelets 175 10*3/mm3 Invalid Interpretation Code 150-450 [facility] Work Phone: [phone] Platelets #/vol (Bld) 175 10*3/mm3 150-450 [facility] Work Phone: [phone] PMV by Fabienne 9.7 fL Invalid Interpretation Code 6.2-12.0 [facility] Work Phone: [phone] RBC #/vol (Bld) 3.73 10*6/uL Critically low 4.6-6.[address] [facility] Work Phone: WBC #/vol (Bld) 8.8 10*3/uL 4.4-11.0 [facility] Work Phone: WBC (Leukocytes) 8.8 10*3/uL Invalid Interpretation Code 4.4-11.0 [facility] Work Phone: Lab Report: CBCDon 4 Absolute Neutrophil count 3.7 X10 3/UL Normal 2.0-7.7 [facility] Work Phone: ANC 3.7 X10 3/UL Normal 2.0-7.7 [facility] Work Phone: Basophils/100 leukocytes 0.5 % Normal 0-1 [facility] Work Phone: Basophils/100 WBC (Bld) 0.5 % Normal 0-1 [facility] Work Phone: Eosinophils/100 leukocytes 2.0 % Normal 0-5 [facility] Work Phone: Eosinophils/100 WBC (Bld) 2.0 % Normal 0-5 [facility] Work Phone: Lymphocytes/100 leukocytes 27.9 % Normal 19-41 [facility] Work Phone: Lymphocytes/100 WBC (Bld) 27.9 % Normal 19-41 [facility] Work Phone: Monocytes/100 leukocytes 11.6 % High 0-10 [facility] Work Phone: Monocytes/100 WBC (Bld) 11.6 % High 0-10 [facility] Work Phone: Neutrophils/100 leukocytes 57.2 % Normal 47-70 [facility] Work Phone: Neutrophils/100 WBC (Bld) 57.2 % Normal 47-70 [facility] Work Phone: Vital Signs Date Time Vital Sign Value Performing Clinician Facility 05-09-2025 13:52-0400 Diastolic blood pressure 60 mm[Hg] Daxa Wing APRN.DOUBLE CUTTER Work Phone: [facility] 05-09-2025 13:52-0400 Systolic blood pressure 136 mm[Hg] Daxa Wing WHOLESALER.DOUBLE CUTTER Work Phone: [facility] 05-09-2025 13:30-0400 Body mass index (BMI) [Ratio] 29.84 kg/m2 Daxa Wing WHOLESALER.DOUBLE CUTTER Work Phone: [facility] 05-09-2025 13:30-0400 Body weight 89 kg Daxa Wing WHOLESALER.DOUBLE CUTTER Work Phone: [facility] 05-09-2025 13:30-0400 Heart rate 73 /min Daxa Wing WHOLESALER.DOUBLE CUTTER Work Phone: [facility] 04-19-2025 14:01-0400 Body temperature 98.3 [degF] Dr. Mike Solorzano MD Work Phone: [facility] 04-19-2025 14:01-0400 Diastolic blood pressure 81 mm[Hg] Dr. Mike Solorzano MD Work Phone: [facility] 04-19-2025 14:01-0400 Heart rate 65 /min Dr. Mike Solorzano MD Work Phone: [facility] 04-19-2025 14:01-0400 Respiratory rate 16 /min Dr. Mike Solorzano MD Work Phone: [facility] 04-19-2025 14:01-0400 SaO2% (BldA) [Mass fraction] 97 % Dr. Mike Solorzano MD Work Phone: [facility] 04-19-2025 14:01-0400 Systolic blood pressure 123 mm[Hg] Dr. Mike Solorzano MD Work Phone: [facility] 04-19-2025 13:46-0400 Body height 167.[address] Mike Solorzano MD Work Phone: [facility] 04-19-2025 13:46-0400 Body weight 84.[address] Mike Solorzano MD Work Phone: [facility] 04-17-2025 00:03-0400 Inhaled oxygen flow rate 2 L/min Dr. Mike Solorzano MD Work Phone: [facility] 04-15-2025 20:08-0400 Body mass index (BMI) [Ratio] 29.9 kg/m2 Dr. Mike Solorzano MD Work Phone: [facility] 04-15-2025 19:41-0400 Diastolic blood pressure 63 mm[Hg] Dr. Mike Solorzano MD Work Phone: [facility] 04-15-2025 19:41-0400 Systolic blood pressure 97 mm[Hg] Dr. Mike Solorzano MD Work Phone: [facility] 04-15-2025 19:20-0400 Body temperature 101.5 [degF] Dr. Mike Solorzano MD Work Phone: [phone] [address] 04-15-2025 19:20-0400 Heart rate 100 /min Dr. Mike Solorzano MD Work Phone: [facility] 04-15-2025 19:20-0400 Respiratory rate 18 /min Dr. Mike Solorzano MD Work Phone: [facility] 04-15-2025 19:20-0400 SaO2% (BldA) [Mass fraction] 95 % Dr. Mike Solorzano MD Work Phone: [facility] 04-15-2025 14:09-0400 Body height 167.[address] Mike Solorzano MD Work Phone: [facility] 04-15-2025 14:09-0400 Body mass index (BMI) [Ratio] 33.9 kg/m2 Dr. Mike Solorzano MD Work Phone: [facility] 04-15-2025 14:09-0400 Body weight 95.[address] Mike Solorzano MD Work Phone: [facility] 04-01-2025 10:39-0400 Body mass index (BMI) [Ratio] [...] kg/m2 Dr. Mike Solorzano MD Work Phone: [facility] 11-28-2024 13:34-0400 Body weight 91.[address] Mike Solorzano MD Work Phone: [facility] 11-28-2024 13:34-0400 Diastolic blood pressure 74 mm[Hg] Dr. Mike Solorzano MD Work Phone: [facility] 11-28-2024 13:34-0400 Heart rate 73 /min Dr. Mike Solorzano MD Work Phone: [facility] 11-28-2024 13:34-0400 Respiratory rate 16 /min Dr. Mike Solorzano MD Work Phone: [facility] 11-28-2024 13:34-0400 Systolic blood pressure 128 mm[Hg] Dr. Mike Solorzano MD Work Phone: [facility] 11-08-2024 10:44-0400 Body height 172.7 cm Aaron [...] 14:21-0500 Diastolic blood pressure 56 mm[Hg] Daxa Wing APRN.CNP Work Phone: [facility] Comment on above: manual 08-13-2024 14:21-0500 Systolic blood pressure 130 mm[Hg] Daxa Garciamel WHOLESALER.DOUBLE CUTTER Work Phone: [facility] Comment on above: manual 08-13-2024 13:55-0500 Body mass index (BMI) [Ratio] 29.84 kg/m2 Daxa Mecca WHOLESALER.DOUBLE CUTTER Work Phone: [facility] 08-13-2024 13:55-0500 Body weight 89 kg Dxaa Garciamel WHOLESALER.DOUBLE CUTTER Work Phone: [facility] 08-13-2024 13:55-0500 Heart rate 76 /min Daxa Garciamel WHOLESALER.DOUBLE CUTTER Work Phone: [facility] 05-19-2024 [...] 09:41-0400 Body height 172.7 cm Daxa Villa WHOLESALER.DOUBLE CUTTER Work Phone: [facility] 02-17-2023 09:41-0400 Body weight 89.81 kg Daxa Villa WHOLESALER.DOUBLE CUTTER Work Phone: [facility] 02-17-2023 09:41-0400 Diastolic blood pressure 59 mm[Hg] Daxa Villa WHOLESALER.DOUBLE CUTTER Work Phone: [facility] 02-17-2023 09:41-0400 Heart rate 73 /min Daxa Villa WHOLESALER.DOUBLE CUTTER Work Phone: [facility] 02-17-2023 09:41-0400 Systolic blood pressure 128 mm[Hg] Daxa Villa WHOLESALER.DOUBLE CUTTER Work Phone: [facility] 02-05-2023 16:21-0400 Body temperature 98.1 [degF] [facility] 02-05-2023 16:21-0400 Diastolic blood pressure 79 mm[Hg] [facility] 02-05-2023 16:21-0400 Heart rate 81 /min [facility] 02-05-2023 16:21-0400 Respiratory rate 16 /min [facility] 02-05-2023 16:21-0400 SaO2% (BldA) [Mass fraction] 98 % [facility] 02-05-2023 16:21-0400 Systolic blood pressure 118 mm[Hg] [facility] 02-05-2023 14:47-0400 Body mass index (BMI) [Ratio] 31.8 kg/m2 [facility] 02-05-2023 14:47-0400 Body weight 95 kg [facility] 02-05-2023 14:06-0400 Body height 172.72 cm [facility] 08-25-2022 10:21-0500 Body height 172.7 cm Daxa Villa WHOLESALER.DOUBLE CUTTER Work Phone: [facility] 08-25-2022 10:21-0500 Body weight 98.43 kg Daxa Villa WHOLESALER.DOUBLE CUTTER Work Phone: [facility] 08-25-2022 10:21-0500 Diastolic blood pressure 73 mm[Hg] Daxa Villa WHOLESALER.DOUBLE CUTTER Work Phone: [facility] 08-25-2022 10:21-0500 Heart rate 77 /min Daxa Villa WHOLESALER.DOUBLE CUTTER Work Phone: [facility] 08-25-2022 10:21-0500 Systolic blood pressure 125 mm[Hg] Daxa Villa WHOLESALER.DOUBLE CUTTER Work Phone: [facility] 03-16-2022 11:00-0400 Diastolic blood pressure 60 mm[Hg] Dr. Mike Solorzano Work Phone: [facility] Work Phone: 03-16-2022 11:00-0400 Heart rate 69 /min Dr. Mike Solorzano Work Phone: [facility] Work Phone: 03-16-2022 11:00-0400 Respiratory rate 21 /min Dr. Mike Solorzano Work Phone: [facility] Work Phone: 03-16-2022 11:00-0400 SaO2% (BldA) [Mass fraction] 96 % Dr. Mike Solorzano Work Phone: [facility] Work Phone: 03-16-2022 11:00-0400 Systolic blood pressure 136 mm[Hg] Dr. Mike Solorzano Work Phone: [facility] Work Phone: 03-16-2022 09:10-0400 Body height 172.[address] Mike Solorzano Work Phone: [facility] Work Phone: 03-16-2022 09:10-0400 Body mass index (BMI) [Ratio] 33.3 kg/m2 Dr. Mike Solorzano Work Phone: [facility] Work Phone: 03-16-2022 09:10-0400 Body temperature 97.9 [degF] Dr. Mike Solorzano Work Phone: [facility] Work Phone: 03-16-2022 09:10-0400 Body weight 99.[address] Mike Solorzano Work Phone: [facility] Work Phone: 11-23-2021 13:53-0400 Body mass index (BMI) [Ratio] 34.7 kg/m2 Dr. Mike Solorzano Work Phone: [facility] Work Phone: 11-23-2021 13:53-0400 Body weight 100.[address] Mike Solorzano Work Phone: [facility] Work Phone: 11-23-2021 13:53-0400 Diastolic blood pressure 84 mm[Hg] Dr. Mike Solorzano Work Phone: [facility] Work Phone: 11-23-2021 13:53-0400 Heart rate 86 /min Dr. Mike Solorzano Work Phone: [facility] Work Phone: 11-23-2021 13:53-0400 Respiratory rate 18 /min Dr. Mike Solorzano Work Phone: [facility] Work Phone: 11-23-2021 13:53-0400 SaO2% (BldA) [Mass fraction] 98 % Dr. Mike Solorzano Work Phone: [facility] Work Phone: 11-23-2021 13:53-0400 Systolic blood pressure 128 mm[Hg] Dr. Mike Solorzano Work Phone: [facility] Work Phone: 10-23-2021 09:34-0500 Body temperature 98.42 [degF] MIKE RAI DO [facility] 10-23-2021 09:34-0500 Diastolic blood pressure 70 mm[Hg] MIKE RAI DO [facility] 10-23-2021 09:34-0500 Heart rate 97 /min MIKE RAI DO [facility] 10-23-2021 09:34-0500 Respiratory rate 18 /min MIKE RAI DO [facility] 10-23-2021 09:34-0500 Systolic blood pressure 128 mm[Hg] MIKE RAI DO [facility] 10-23-2021 08:25-0500 Heart rate 101 /min MIKE RAI DO [facility] 10-23-2021 05:15-0500 Body temperature 97.88 [degF] MIKE RAI DO [facility] 10-23-2021 05:15-0500 Diastolic blood pressure 63 mm[Hg] MIKE RAI DO [facility] 10-23-2021 05:15-0500 Heart rate 96 /min MIKE RAI DO [facility] 10-23-2021 05:15-0500 Reason For Taking VItal Signs MIKE RAI DO [facility] 10-23-2021 05:15-0500 Respiratory rate 18 /min MIKE RAI DO [facility] 10-23-2021 05:15-0500 Systolic blood pressure 125 mm[Hg] MIKE RAI DO [facility] 10-22-2021 23:02-0500 Body temperature 97.88 [degF] MIKE RAI DO [facility] 10-22-2021 23:02-0500 Diastolic blood pressure 68 mm[Hg] MIKE RAI DO [facility] 10-22-2021 23:02-0500 Heart rate 89 /min MIKE RAI DO [facility] 10-22-2021 23:02-0500 Mean blood pressure 82 mm[Hg] MIKE RAI DO [facility] 10-22-2021 23:02-0500 Reason For Taking VItal Signs MIKE RAI DO [facility] 10-22-2021 23:02-0500 Respiratory rate 18 /min MIKE RAI DO [facility] 10-22-2021 23:02-0500 Systolic blood pressure 111 mm[Hg] MIKE RAI DO [facility] 10-22-2021 20:02-0500 Heart rate 98 /min MIKE RAI DO [facility] 10-22-2021 20:02-0500 Reason For Taking VItal Signs MIKE RAI DO [facility] 10-22-2021 11:07-0500 Body height 172.7 cm MIKE RAI DO [facility] 10-22-2021 11:07-0500 Body weight 103 kg MIKE RAI DO [facility] 10-22-2021 11:07-0500 Body weight 34.53 kg/m2 MIKE RAI DO [facility] 10-22-2021 11:05-0500 Mean blood pressure 90 mm[Hg] MIKE RAI DO [facility] 10-22-2021 10:42-0500 Diastolic Blood Pressure NBP 69 1 MIKE RAI DO [facility] 10-22-2021 10:42-0500 Systolic Blood Pressure NBP 112 1 MIKE RAI DO [facility] 10-22-2021 10:33-0500 Diastolic Blood Pressure NBP 69 1 IMKE RAI DO [facility] 10-22-2021 10:33-0500 Systolic Blood Pressure NBP 108 1 MIKE RAI DO [facility] 10-22-2021 10:21-0500 Diastolic Blood Pressure NBP 54 1 MIKE RAI DO [facility] 10-22-2021 10:21-0500 Systolic Blood Pressure NBP 119 1 MIKE RAI DO [facility] 10-22-2021 09:30-0500 Body temperature 96.98 [degF] MIKE RAI DO [facility] 10-22-2021 09:00-0500 Body temperature 97.25 [degF] MIKE RAI DO [facility] 10-22-2021 08:55-0500 Body temperature 97.23 [degF] MIKE RAI DO [facility] 10-22-2021 08:50-0500 Body temperature 97.18 [degF] MIKE RAI DO [facility] 10-22-2021 06:16-0500 Body height 172.7 cm MIKE RAI DO [facility] 10-22-2021 06:16-0500 Body weight 103 kg MIKE RAI DO [facility] 10-15-2021 10:40-0500 Body height 172.7 cm MIKE RAI DO [facility] 10-15-2021 10:40-0500 Body weight 102.3 kg MIKE RAI DO [facility] 10-15-2021 10:40-0500 Body weight 34.3 kg/m2 MIKE RAI DO [facility] 10-15-2021 10:40-0500 diastolic 56 mm[Hg] MIKE RAI DO [facility] 10-15-2021 10:40-0500 Heart rate 82 /min MIKE RAI DO [facility] 10-15-2021 10:40-0500 systolic 120 mm[Hg] IMKE RAI DO [facility] 06-02-2020 13:05-0400 BP Diastolic 82 mm[Hg] Jean Claude Killian [facility] [place] [facility] [place] 06-02-2020 13:05-0400 BP Systolic 120 mm[Hg] Jean Claude Killian [facility] [place] [facility] [place] 06-02-2020 13:05-0400 Pulse (Heart Rate) 83 /min Jean Claude Killian [facility] [place] 06-02-2020 13:05-0400 Pulse Oximetry 98 % Jean Claude Kill[facility] [place] [facility] [place] 06-02-2020 12:00-0400 Body Temperature 98.4 [degF] [facility] [place] 06-02-2020 12:00-0400 Respiratory Rate 18 /min Jean Claude [facility] [place] 06-02-2020 06:00-0400 BMI (Body Mass Index) 33.12 kg/m2 Jean Claude Killian [facility] [place] [place] 06-02-2020 06:00-0400 Body weight 98.8 kg Jean Claude Killian [facility] [place] [facility] [place] 05-30-2020 08:43-0400 Height 172.7 cm Jean Claude Killian [facility] [place] [facility] [place] 05-14-2020 08:07-0400 Body Temperature 98.1 [degF] Jean Claude [facility] [place] 05-14-2020 08:07-0400 BP Diastolic 62 mm[Hg] Jean Claude Kill[facility] [place] [facility] [place] 05-14-2020 08:07-0400 BP Systolic 131 mm[Hg] Jean Claude Kill[facility] [place] [facility] [place] 05-14-2020 08:07-0400 Pulse (Heart Rate) 99 /min Jean Claude Killian [facility] [place] [place] 05-14-2020 08:07-0400 Pulse Oximetry 99 % Jean Claude Killian [facility] [place] [facility] [place] 05-14-2020 08:07-0400 Respiratory Rate 18 /min Jean Claude Kill[facility] [place] 05-13-2020 06:00-0400 BMI (Body Mass Index) 34.32 kg/m2 Jean Claude Killian [facility] [place] 05-13-2020 06:00-0400 Body weight 102.38 kg Jean Claude Killian [facility] [place] [facility] [place] 05-09-2020 08:10-0400 Height 172.7 cm Jean Claude Killian [facility] [place] [facility] [place] 05-01-2020 10:50-0400 BMI (Body Mass Index) 31.78 kg/m2 Jean Claude Killian [facility] [place] 05-01-2020 10:50-0400 Body Temperature 97.59 [degF] [facility] Claude [facility] [place] 05-01-2020 10:50-0400 Body weight 94.8 kg Jean Claude Killian [facility] [place] [facility] [place] 05-01-2020 10:50-0400 BP Diastolic 57 mm[Hg] Jean Claude Killian [facility] [place] [facility] [place] 05-01-2020 10:50-0400 BP Systolic 113 mm[Hg] Jean Claude Killian [facility] [place] [facility] [place] 05-01-2020 10:50-0400 Height 172.7 cm Jean Claude Killian [facility] [place] [facility] [place] 05-01-2020 10:50-0400 Pulse (Heart Rate) 82 /min Jean Claude Killian [facility] [place] 05-01-2020 10:50-0400 Pulse Oximetry 95 % Jean Claude Killian [facility] [place] [facility] [place] 05-01-2020 10:50-0400 Respiratory Rate 16 /min Jean Claude Kill[facility] [place] 05-18-2017 10:58-0400 BMI (Body Mass Index) 35.62 kg/m2 Anuel Rodriges MD [facility] Work Phone: 05-18-2017 10:58-0400 Body Temperature 98.3 [degF] Anuel Rodriges MD [facility] Work Phone: 05-18-2017 10:58-0400 BP Diastolic 78 mm[Hg] Anuel Rodriges MD [facility] Work Phone: 05-18-2017 10:58-0400 BP Systolic 137 mm[Hg] Anuel Rodriges MD [facility] Work Phone: 05-18-2017 10:58-0400 Height 175.26 cm Anuel Rodriges MD [facility] Work Phone: 05-18-2017 10:58-0400 Pulse (Heart Rate) 82 /min Anuel Rodriges MD [facility] Work Phone: 05-18-2017 10:58-0400 Respiratory Rate 16 /min Anuel Rodriges MD [facility] Work Phone: 05-18-2017 10:58-0400 Weight 109.41 kg Anuel Rodriges MD [facility] Work Phone: 05-05-2017 16:22-0400 BMI (Body Mass Index) 35.26 kg/m2 Anuel Rodriges MD [facility] Work Phone: 05-05-2017 16:22-0400 Body Temperature 97.5 [degF] Anuel Rodriges MD [facility] Work Phone: 05-05-2017 16:22-0400 BP Diastolic 77 mm[Hg] Anuel Rodriges MD [facility] Work Phone: 05-05-2017 16:22-0400 BP Systolic 132 mm[Hg] Anuel Rodriges MD [facility] Work Phone: 05-05-2017 16:22-0400 BSA (Body Surface Area) 2.23 m2 Anuel Rodriges MD [facility] Work Phone: 05-05-2017 16:22-0400 Height 175.26 cm Anuel Rodriges MD [facility] Work Phone: 05-05-2017 16:22-0400 Pulse (Heart Rate) 88 /min Anuel Rodriges MD [facility] Work Phone: 05-05-2017 16:22-0400 Respiratory Rate 14 /min Anuel Rodriges MD [facility] Work Phone: 05-05-2017 16:22-0400 Weight 108.32 kg Anuel Rodriges MD [facility] Work Phone: 04-13-2017 15:23-0400 BMI (Body Mass Index) 35.41 kg/m2 Anuel Rodriges MD [facility] Work Phone: 04-13-2017 15:23-0400 Body Temperature 97.1 [degF] Anuel Rodriges MD [facility] Work Phone: 04-13-2017 15:23-0400 BP Diastolic 68 mm[Hg] Anuel Rodriges MD [facility] Work Phone: 04-13-2017 15:23-0400 BP Systolic 126 mm[Hg] Anuel Rodriges MD [facility] Work Phone: 04-13-2017 15:23-0400 BSA (Body Surface Area) 2.23 m2 Anuel Rodriges MD [facility] Work Phone: 04-13-2017 15:23-0400 Height 175.26 cm Anuel Rodriges MD [facility] Work Phone: 04-13-2017 15:23-0400 Pulse (Heart Rate) 80 /min Anuel Rodriges MD [facility] Work Phone: 04-13-2017 15:23-0400 Respiratory Rate 14 /min Anuel Rodriges MD [facility] Work Phone: 04-13-2017 15:23-0400 Weight 108.77 kg Anuel Rodriges MD [facility] Work Phone: 04-08-2017 13:57-0400 BMI (Body Mass Index) 35.35 kg/m2 Anuel Rodriges MD [facility] Work Phone: 04-08-2017 13:57-0400 Body Temperature 97 [degF] Anuel Rodriges MD [facility] Work Phone: 04-08-2017 13:57-0400 BP Diastolic 78 mm[Hg] Anuel Rodriges MD [facility] Work Phone: 04-08-2017 13:57-0400 BP Systolic 144 mm[Hg] Anuel Rodriges MD [facility] Work Phone: 04-08-2017 13:57-0400 BSA (Body Surface Area) 2.23 m2 Anuel Rodriges MD [facility] Work Phone: 04-08-2017 13:57-0400 Height 175.26 cm Anuel Rodriges MD [facility] Work Phone: 04-08-2017 13:57-0400 Pulse (Heart Rate) 87 /min Anuel Rodriges MD [facility] Work Phone: 04-08-2017 13:57-0400 Respiratory Rate 14 /min Anuel Rodriges MD [facility] Work Phone: 04-08-2017 13:57-0400 Weight 108.59 kg Anuel Rodriges MD [facility] Work Phone: 03-31-2017 16:36-0400 BMI (Body Mass Index) 36.03 kg/m2 Anuel Rodriges MD [facility] Work Phone: 03-31-2017 16:36-0400 Body Temperature 97 [degF] Anuel Rodriges MD [facility] Work Phone: 03-31-2017 16:36-0400 BP Diastolic 80 mm[Hg] Anuel Rodriges MD [facility] Work Phone: 03-31-2017 16:36-0400 BP Systolic 147 mm[Hg] Anuel Rodriges MD [facility] Work Phone: 03-31-2017 16:36-0400 BSA (Body Surface Area) 2.25 m2 Anuel Rodriges MD [facility] Work Phone: 03-31-2017 16:36-0400 Height 175.26 cm Anuel Rodriges MD [facility] Work Phone: 03-31-2017 16:36-0400 Pulse (Heart Rate) 83 /min Anuel Rodriges MD [facility] Work Phone: 03-31-2017 16:36-0400 Respiratory Rate 14 /min Anuel Rodriges MD [facility] Work Phone: 03-31-2017 16:36-0400 Weight 110.68 kg Anuel Rodriges MD [facility] Work Phone: 03-25-2017 04:26-0400 Body surface area Derived from formula 72.00 mL/min Anuel Rodriges MD [facility] Work Phone: 10-31-2014 09:12-0500 BMI (Body Mass Index) 39.87 kg/m2 Dorinda Gavin [facility] Work Phone: 10-31-2014 09:120500 Weight 122.47 kg Dorinda Gavin [facility] Work Phone: 01-11-2014 11:06-0400 BP Diastolic 88 mm[Hg] Dorinda Gavin [facility] Work Phone: 01-11-2014 11:06-0400 BP Systolic 138 mm[Hg] Dorinda Gavin [facility] Work Phone: 01-11-2014 11:06-0400 Height 175.26 cm Dorinda Gavin [facility] Work Phone: Encounters Encounter Date Encounter Type Care Provider Facility Start: 05-09-2025 End: 05-10-2025 Refill Daxa Wing APRN.DOUBLE CUTTER Work Phone: [facility] Start: 05-09-2025 End: 05-09-2025 Office outpatient visit 25 minutes Daxa Wing APRN.DOUBLE CUTTER Work Phone: [facility] Comment on above: Hospital discharge f ollow-up (Primary Dx); MRSA bacteremia; Controlled type 2 diabetes mellitus with diabetic neuropathy, with long-term current use of insulin (HCC); Acute left-sided low back pain without sciatica; Chronic idiopathic urticaria; Essential hypertension, benign; Lumbar spondylosis; Long-term use of Plaquenil Start: 05-06-2025 ambulatory Mike Solorzano Facility :[facility] Start: 04-23-2025 End: 04-24-2025 Telephone encounter Aaron Solorzano MD Work Phone: [facility] Comment on above: Received Outside Med ical Records ([facility] lab BMP, CBC vanco 04/23/2025) Start: 04-23-2025 ambulatory Alex Corey ty:[facility] Start: 04-19-2025 Non-patient / Non-visit Dr. Julianne Harris MD -[facility] Work Phone: Start: 04-18-2025 Non-patient / Non-visit Dr. Julianne Harris MD -[facility] Work Phone: Start: 04-17-2025 Non-patient / Non-visit Dr. Julianne Harris MD -[facility] Work Phone: Start: 04-17-2025 ambulatory Mike Solorzano Facility :[facility] Start: 04-17-2025 Non-patient / Non-visit Dr. Cathryn RUIZ -[facility] Start: 04-16-2025 End: 04-16-2025 Telephone encounter Aaron Solorzano MD Work Phone: Family Practice Comment on above: Received Outside Med ical Records ([facility] ED) Start: 04-16-2025 Non-patient / Non-visit Dr. Julianne Harris MD -[facility] Work Phone: Start: 04-16-2025 ambulatory Luciano Spicer Facility:[facility] Start: 04-16-2025 Non-patient / Non-visit Dr. Luciano shields MD -[facility] Start: 04-15-2025 ambulatory Margarita Harris Facility :[facility] Start: 04-15-2025 End: 04-19-2025 Evaluation and management of inpatient Dr. Debora Diaz MD -Progressive Care Unit Work Phone: Start: 04-01-2025 End: 04-01-2025 Office outpatient visit 25 minutes Lisa Quintanilla MD Work Phone: [facility] Comment on above: Contact dermatitis d ue to plant (Primary Dx) Start: 04-01-2025 End: 04-01-2025 ambulatory AARON SOLORZANO Facility:[facility] Start: 03-29-2025 End: 04-01-2025 Refill Aaron Solorzano MD Work Phone: [facility] Comment on above: Refill Request Start: 03-08-2025 End: 03-08-2025 Refill Aaron Solorzano MD Work Phone: [facility] Comment on above: Refill Request (Need s today) Start: 02-18-2025 End: 02-20-2025 Telephone encounter Aaron Solorzano MD Work Phone: [facility] Comment on above: requesting m edication Start: 02-13-2025 End: 02-13-2025 ambulatory Nadege Seo MA [facility] Start: 02-13-2025 End: 02-13-2025 [facility] Comment on above: Population Health Na vigation Outreach ([facility] Start: 02-11-2025 End: 02-11-2025 Office outpatient visit 25 minutes Aaron Solorzano MD Work Phone: [facility] Comment on above: Lumbar spondylosis ( Primary Dx); Controlled type 2 diabetes mellitus with diabetic neuropathy, with long-term current use of insulin (HCC); Degeneration of intervertebral disc of lumbar region with discogenic back pain and lower extremity pain; Sensation of foreign body in finger; Mixed hyperlipidemia; Anemia of chronic disease Start: 02-11-2025 End: 02-11-2025 ambulatory AARON SOLORZANO Facility:[facility] Start: 01-28-2025 End: 01-29-2025 Refill Aaron Solorzano MD Work Phone: [facility] Comment on above: Refill Request Start: 01-24-2025 End: 01-25-2025 Telephone encounter Aaron Solorzano MD Work Phone: [facility] Comment on above: medication question Start: 01-09-2025 End: 01-09-2025 Patient encounter procedure Lucy Velasco -Radiology [facility] Work Phone: Start: 01-09-2025 End: 01-09-2025 ambulatory [facility] Facility:[facility] Start: 01-02-2025 End: 01-02-2025 Telephone encounter Aaron Solorzano MD Work Phone: [facility] Comment on above: Received Outside Med ical Records ([facility] PT discharge) Start: 01-01-2025 End: 01-01-[address] Mike Solorzano MD Work Phone: [facility] Work Phone: Start: 01-01-2025 End: 01-01-[address] Mike Solorzano MD -Physical Therapy Work Phone: Start: 01-01-2025 End: 01-01-2025 Telephone encounter Aaron Solorzano MD Work Phone: [facility] Comment on above: Refill Request Start: 12-26-2024 End: 12-26-2024 Telephone encounter Aaron Solorzano MD Work Phone: [facility] Comment on above: Received Outside Med ical Records ([facility]) Start: 12-25-2024 ambulatory Rod Taiwo Facility:[facility] Start: 12-25-2024 Non-patient / Non-visit Dr. Rod gomez MD -[facility] Start: 12-25-2024 End: 12-25-[address] Rod Maravilla MD -Cardiovascular Services Work Phone: Start: 12-25-2024 End: 12-25-2024 ambulatory Rod Taiwo Facility:[facility] Start: 12-14-[address] Devaughn Solorzano MD -Physical Therapy Work Phone: Start: 12-13-2024 End: 12-13-2024 Telephone encounter Aaron Solorzano MD Work Phone: [facility] Comment on above: Received Outside Med ical Records ([facility] labs) Start: 12-11-2024 End: 12-11-[address] Mike Solorzano MD Work Phone: [facility] Work Phone: Start: 12-11-2024 End: 12-11-[address] Rod Maravilla MD -Laboratory Work Phone: Start: 12-11-2024 End: 12-11-2024 ambulatory Rod Maravilla Facility:[facility] Start: 12-05-2024 End: 12-05-2024 Subsequent hospital visit by physician Xr [facility] Work Phone: Radiology Comment on above: Swelling of hand ya nt, left [M25.442] Start: 12-05-2024 End: 12-05-2024 ambulatory AARON SOLORZANO Facility:[facility] Start: 12-05-2024 End: 12-05-2024 Office outpatient visit 15 minutes Lisa Quintanilla MD Work Phone: [facility] Comment on above: Swelling of hand ya nt, left (Primary Dx) Start: 11-30-2024 End: 12-03-2024 Telephone encounter Aaron Solorzano MD Work Phone: Family Practice Comment on above: Received Outside Med ical Records (Cardiology Rod Maravilla MD 11/28/24 [facility]) Start: 11-28-2024 End: 11-28-[address] Rod Maravilla MD -[facility] Work Phone: Start: 11-28-2024 End: 11-29-2024 Refill Aaron Solorzano MD Work Phone: [facility] [place] Comment on above: Refill Request Start: 11-19-2024 End: 11-19-2024 Telephone encounter Aaron Solorzano MD Work Phone: [facility] Comment on above: Received Outside Med ical Records ([facility] physical therapy) Start: 11-08-2024 End: 11-08-2024 ambulatory AARON SOLORZANO Facility:[facility] Start: 11-08-2024 End: 11-08-2024 Office outpatient visit 15 minutes Aaron Solorzano MD Work Phone: [facility] Comment on above: LIAN (obstructive sle ep apnea) (Primary Dx); Controlled type 2 diabetes mellitus with diabetic neuropathy, with long-term current use of insulin (HCC); Balance problem Start: 11-06-2024 End: 11-06-2024 Refill Aaron Solorzano MD Work Phone: [facility] Comment on above: Refill Request Start: 11-02-2024 End: 11-02-2024 Refill Aaron Solorzano MD Work Phone: [facility] Comment on above: Refill Request Start: 10-25-2024 End: 10-25-2024 Refill Aaron Solorzano MD Work Phone: [facility] Comment on above: Refill Request Start: 09-14-2024 End: 09-14-2024 Refill Aaron Solorzano MD Work Phone: [facility] Comment on above: Refill Request Start: 08-15-2024 End: 08-15-2024 Telephone encounter Daxa Wing APRN.CNP Work Phone: [facility] Comment on above: Patient Question Start: 08-13-2024 End: 08-13-2024 ambulatory DAXA WING Facility:[facility] Start: 08-13-2024 End: 08-13-2024 Office outpatient visit 25 minutes Daxa Wing APRN.DOUBLE CUTTER Work Phone: [facility] Comment on above: Controlled type 2 di abetes mellitus with diabetic neuropathy, with long-term current use of insulin (HCC) (Primary Dx); Essential hypertension, benign; Mixed hyperlipidemia Start: 08-09-2024 End: 08-09-2024 Refill Aaron Solorzano MD Work Phone: [facility] Comment on above: Refill Request medication not on cu rrent med list; Patient Question Start: 08-07-2024 End: 08-07-2024 Refill Aaron Solorzano MD Work Phone: [facility] Comment on above: Refill Request Start: 08-02-2024 End: 08-02-2024 Refill Aaron Solorzano MD Work Phone: [facility] Comment on above: Refill Request Start: 07-13-2024 End: 07-13-2024 Refill Aaron Solorzano MD Work Phone: [facility] Comment on above: Refill Request Start: 07-09-2024 End: 07-09-2024 Refill Aaron Solorzano MD Work Phone: [facility] Comment on above: Refill Request Start: 05-31-2024 End: 05-31-2024 Telephone encounter Aaron Solorzano MD Work Phone: [facility] Comment on above: Received Outside Med ical Records ([facility]) Start: 05-31-2024 End: 05-31-2024 ambulatory Mike Solorzano Facility:[facility] Start: 05-19-2024 End: 05-19-2024 ambulatory AARON SOLORZANO Facility:[facility] Start: 05-19-2024 End: 05-19-2024 Office outpatient visit 25 minutes Lisa Quintanilla MD Work Phone: [facility] Comment on above: Rash (Primary Dx) Start: 05-04-2024 End: 05-04-2024 Refill Aaron Solorzano MD Work Phone: [facility] Comment on above: Refill Request Start: 04-19-2024 End: 04-19-2024 Refill Aaron Solorzano MD Work Phone: [facility] Comment on above: Refill Request Start: 04-02-2024 Telephone encounter Aaron Solorzano MD Work Phone: [facility] Comment on above: Rx refill; not on cu rrent med list Start: 03-30-2024 Telephone encounter Aaron Solorzano MD Work Phone: [facility] Comment on above: Received Outside Med ical Records ([facility] CTA head and Neck with contrast. 03/29/2024) Start: 03-19-2024 Refill Aaron fair MD Work Phone: [facility] Comment on above: Refill Request Start: 03-13-2024 Telephone encounter Aaron Solorzano MD Work Phone: [facility] Comment on above: Received Outside Med ical Records ([facility] Visit summary 03/08/2024 Right elbow pain and swelling. ) Start: 02-29-2024 Telephone encounter Aaron Solorzano MD Work Phone: [facility] Comment on above: requesting medicatio n that is . Start: 02-07-2024 Refill Aaron fair MD Work Phone: [facility] Comment on above: Refill Request Start: 01-17-2024 Telephone encounter Aaron Solorzano MD Work Phone: [facility] Comment on above: medication requested not on current med list Start: 01-10-2024 Telephone encounter Aaron Solorzano MD Work Phone: [facility] Comment on above: Received Outside Med ical Records (Carotid Duplex [facility]) Start: 01-09-2024 Telephone encounter Aaron Solorzano MD Work Phone: [facility] Comment on above: Received Outside Med ical Records (Cardiac echo report 01/09/24) Start: 12-20-2023 End: 12-20-2023 Patient encounter procedure Aaron Solorzano MD Work Phone: [facility] Comment on above: LIAN (obstructive sle ep apnea) (Primary Dx) Start: 12-12-2023 Refill Aaron fair MD Work Phone: [facility] Comment on above: Refill Request ([place] cleaning - see RX notes) Start: 11-30-2023 Telephone encounter Aaron Solorzano MD Work Phone: [facility] Comment on above: Received Outside Med ical Records ([employer] [facility] Prescription & Certificate of medical necessity Cpap supplies 11/30/2023) Start: 11-28-2023 Telephone encounter Aaron Solorzano MD Work Phone: [facility] Comment on above: Refill Request Start: 10-24-2023 Telephone encounter Aaron Solorzano MD Work Phone: [facility] Comment on above: Medication Problem ( Levomir) Start: 10-19-2023 Telephone encounter Aaron Solorzano MD Work Phone: [facility] Comment on above: Received Outside [facility] Records ([facility] Review Notice of denial [employer] Glucose test strips 10/18/2023) Start: 10-17-2023 End: 10-17-2023 Patient encounter procedure Aaron Solorzano MD Work Phone: [facility] Comment on above: Chronic midline low back [...] 10-14-2023 ambulatory Aaron fair MD Work Phone: [facility] Comment on above: 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) Start: 10-13-2023 ambulatory [facility] Comment on above: [facility] ([facility] Outreach ) Start: 10-04-2023 Telephone encounter Aaron Solorzano MD Work Phone: [facility] Comment on above: Medication Request Start: 08-11-2023 Refill Aaron fair MD Work Phone: [facility] Comment on above: Refill Request Start: 07-14-2023 Refill Aaron fair MD Work Phone: [facility] Comment on above: Refill Request Medication Request ( Amoxicillin for dental work appointments - needs at least 2 visits worth ) Start: 06-17-2023 Telephone encounter Aaron Solorzano MD Work Phone: [facility] Comment on above: Insurance Authorizat ion ([employer] [facility] Review Additional information for prior authorization for Levemir 06/17/2023) Start: 06-16-2023 End: 06-16-2023 Patient encounter procedure Aaron Solorzano MD Work Phone: [facility] Comment on above: Lumbar degenerative disc disease (Primary Dx); Encounter for immunization; Controlled type 2 diabetes mellitus with diabetic neuropathy, with long-term current use of insulin (HCC); Mixed hyperlipidemia; Varicose veins of leg with pain, right Start: 06-10-2023 Refill Aaron fair MD Work Phone: [facility] Comment on above: Refill Request Start: 05-19-2023 Telephone encounter Aaron Solorzano MD Work Phone: [facility] Comment on above: Refill Request; Medi cation Request Start: 05-12-2023 Telephone encounter Aaron Solorzano MD Work Phone: [facility] Comment on above: Received Outside Med ical Records ([facility] 05/10/23) Start: 04-21-2023 Telephone encounter Pravin Hampton MD Work Phone: [facility] Comment on above: No Show (Not No Show , patient called to cancel) Start: 04-18-2023 Telephone encounter Aaron Solorzano MD Work Phone: [facility] Comment on above: diabetic shoes Start: 04-15-2023 Refill Aaron fair MD Work Phone: [facility] Comment on above: Refill Request Start: 03-02-2023 ambulatory Nadege Seo [facility] Comment on above: Population Health Na v[facility] Outreach ([facility]) Start: 03-02-2023 Telephone encounter Analilia Pool DO Work Phone: [facility] Comment on above: Patient Update Start: 02-18-2023 Telephone encounter Aaron Solorzano MD Work Phone: [facility] Comment on above: Medication Request ( Not on current list) Start: 02-17-2023 End: 02-17-2023 Office outpatient visit 15 minutes Daxa Moody WHOLESALER.DOUBLE CUTTER Work Phone: [facility] Comment on above: Varicose veins of le g with pain, right (Primary Dx) Start: 02-11-2023 Refill Daxa Moody WHOLESALER.DOUBLE CUTTER Work Phone: [facility] Comment on above: Refill Request Start: 02-06-2023 Non-patient / Non-visit Dr. Daren Solorzano Work Phone: [facility] Start: 02-06-2023 End: 02-06-[address] Mike Solorzano Work Phone: [facility] Work Phone: Start: 02-06-2023 End: 02-06-[address] Mike Solorzano Work Phone: [facility] Start: 02-05-2023 End: 02-05-2023 Emergency department patient visit [facility] Start: 01-06-2023 Telephone encounter Aaron Solorzano MD Work Phone: [facility] Comment on above: Medication Request Start: 12-01-2022 Telephone encounter Aaron Solorzano MD Work Phone: [facility] Comment on above: Orders (CPAP supplie s [employer]) Start: 11-12-2022 Telephone encounter Aaron Solorzano MD Work Phone: [facility] Comment on above: CPAP Supplies ([employer] [facility]ap [facility] Supp[facility] New order for supplies 11/11/2022) Start: 10-26-2022 Refill Aaron fair MD Work Phone: [facility] Comment on above: Refill Request Start: 10-05-2022 Refill Dominic fritz MD Work Phone: [facility] Comment on above: Refill Request Start: 09-13-2022 Telephone encounter Daxa iverson WHOLESALER.DOUBLE CUTTER Work Phone: [facility] Comment on above: Results Start: 08-25-2022 End: 08-25-2022 Office outpatient visit 15 minutes Daxa Moody APRN.CNP Work Phone: [facility] Comment on above: Encounter for immuni zation (Primary Dx); Controlled type 2 diabetes mellitus with diabetic neuropathy, with long-term current use of insulin (HCC); Mixed hyperlipidemia; Depression screening; Advanced care planning/counseling discussion Start: 08-18-2022 Refill Aaron fair MD Work Phone: [facility] Comment on above: Refill Request Start: 08-16-2022 Telephone encounter Aaron Solorzano MD Work Phone: [facility] Comment on above: Received Outside Med ical Records ([facility] 08/16/22) Start: 08-13-2022 Refill Daxa Moody APRN.NATHANAEL Work Phone: [facility] Comment on above: Refill Request Start: 07-26-2022 Refill Aaron fair MD Work Phone: [facility] Comment on above: Refill Request Start: 06-04-2022 ambulatory Carrie chicas PA-C Work Phone: [facility] Start: 06-04-2022 E-mail encounter fro m caregiver Carrie Vasquez PA-C Work Phone: [facility] Start: 05-31-2022 Refill Aaron fair MD Work Phone: [facility] Comment on above: Refill Request Start: 05-17-2022 Telephone encounter Carrie Vasquez PA-C Work Phone: [facility] Comment on above: Orders Start: 03-26-2022 Refill Aaron fair MD Work Phone: [facility] Comment on above: Refill Request Start: 03-22-2022 Telephone encounter Aaron Solorzano MD Work Phone: [facility] Comment on above: Received Outside Med ical Records ([facility] EKG 03/16/2022) Start: 03-16-2022 Telephone encounter Aaron Solorzano MD Work Phone: [facility] Comment on above: Abnormal Chest X-ray ([facility]) Start: 03-16-2022 End: 03-16-2022 Emergency department patient visit Dr. Mike Solorzano Work Phone: [facility] Start: 02-15-2022 Telephone encounter Aaron Solorzano MD Work Phone: 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 Comment on above: Refill Request Start: 01-11-2022 Refill Aaron fair MD Work Phone: [facility] Comment on above: Refill Request Start: 12-02-2021 Telephone encounter Aaron Solorzano MD Work Phone: [facility] Comment on above: CPAP Supplies (RX an d Certificate of medical Necessity) Start: 11-24-2021 Telephone encounter Aaron Solorzano MD Work Phone: [facility] Comment on above: Received Outside Med ical Records ([facility] 11/23/2021) Start: 11-23-2021 End: 11-23-[address] Mike Solorzano Work Phone: [facility] Start: 10-22-2021 End: 10-23-2021 Evaluation and management of inpatient MIKE RAI DO [facility] Start: 10-15-2021 End: 10-15-2021 Patient encounter procedure MIKE RAI DO [facility] Start: 10-15-2021 End: 10-15-2021 Admission to establishment MIKE RAI [facility] Start: 07-04-2020 End: 07-04-2020 Subsequent hospital visit by physician Doug Rodriguez Work Phone: [facility] Start: 05-30-2020 End: 06-02-2020 Evaluation and management of inpatient Jean Claude A Killian Work Phone: [facility] Comment on above: Other acute pericard itis (Primary Dx); S/P AVR Start: 05-19-2020 End: 05-19-2020 Subsequent hospital visit by physician Migue Gregorio Work Phone: [facility] X-RAY Comment on above: Dyspnea on exertion Start: 05-08-2020 End: 05-14-2020 Evaluation and management of inpatient Jean Claude A Killian Work Phone: [facility] Start: 05-01-2020 End: 05-01-2020 Subsequent hospital visit by physician Jean Claude Easton Killian Work Phone: 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 Start: 04-28-2018 Ambulatory [facility] Facility :[facility] Start: 10-26-2017 End: 10-26-2017 Ambulatory [facility] Facility:[facility] Procedures Date Procedure Procedure Detail Performing Clinician Start: 04-23-2025 BMP - EXTERNAL [facility] Prov ider Start: 04-23-2025 CBC panel - Blood by Automated count [facility] Provider Start: 04-19-[address] Mike Solorzano MD Work Phone: Start: 04-16-2025 MRI of brain without contrast Dr. Mike Solorzano MD Work Phone: Start: 04-15-2025 CT of head without contrast Dr. Mike Solorzano MD Work Phone: Start: 04-15-2025 CT angiography of he ad and neck Dr. Mike Solorzano MD Work Phone: Start: 04-15-2025 CT of thorax, abdome n and pelvis with contrast Dr. Mike Solorzano MD Work Phone: Start: 04-15-2025 Plain chest X-ray Dr. Raquel Solorzano MD Work Phone: Start: 04-15-2025 Urnls dip stick/tabl et reagent auto microscopy Dr. Mike Solorzano MD Work Phone: Start: 04-15-[address] Mike Solorzano MD Work Phone: Start: 04-15-[address] Devaughn Solorzano MD Work Phone: Start: 04-15-2025 Identification proce dure for living organism Dr. Mike Solorzano MD Work Phone: Start: 04-15-[address] Mike Solorzano MD Work Phone: Start: 04-15-2025 SARS-CoV-2, Influenz a & RSV (PCR) Dr. Mike Solorzano MD Work Phone: Start: 04-15-[address] Devaughn Solorzano MD Work Phone: Start: 01-09-2025 Complete x-ray serie s of lumbar spine with bending views Dr. Mike Solorzano MD Work Phone: Start: 12-05-2024 Radex hand minimum 3 views Lisa Quintanilla MD Work Phone: Start: 08-13-2024 Hemoglobin A1c/Hemoglobin.total in Blood Daxa Wing WHOLESALER.DOUBLE CUTTER Work Phone: Start: 12-20-2023 Adult depression scr eening assessment Aaron Solorzano MD Work Phone: Start: 06-16-2023 PFIZER-BIONTECH COVI D-19 VACCINE (2022- SEASON) AGE 12+ YR Aaron Solorzano MD Work Phone: Start: 02-05-2023 Plain X-ray of femur Start: 08-25-2022 PFIZER-BIONTECH COVI D-19 BIVALENT BOOSTER VACCINE, AGE 12+ YR Daxa Moody WHOLESALER.DOUBLE CUTTER Work Phone: Start: 03-16-2022 Plain chest X-ray Dr. Raquel Solorzano Work Phone: Start: 04-01-2021 Adult depression scr eening assessment Aaron Solorzano MD Work Phone: Start: 07-04-2020 POC INR Unknown Pr ovider Result Start: 06-04-2020 Microscopic examinat ion of blood, culture Comment on above: Order Comment: Speci men Source Comment:Blood Performed By: #### M G3, BMP3 #### [employer] [facility] [place] [address] Start: 06-02-2020 Gluc bld gluc mntr d ev cleared fda spec home use Jean Claude A Killian Work Phone: Start: 06-02-2020 Microscopic examinat ion of blood, culture Comment on above: Order Comment: Speci men Source Comment:Blood Performed By: #### M G3, BMP3 #### [employer] [facility] [place] [address] Start: 06-02-2020 Gluc bld gluc mntr d [...] 06-01-2020 Assay of magnesium Gabe hew R [employer] Work Phone: Start: 06-01-2020 BASIC METABOLIC PANE L W/ REFLEX TO MG FOR LOW K Migue Gregorio Work Phone: Start: 06-01-2020 Blood count complete auto&auto difrntl wbc Velasquez R Janette Work Phone: Start: 06-01-2020 MANUAL DIFFERENTIAL Mat thew R [employer] Work Phone: Start: 05-31-2020 Gluc bld gluc [...] Us retroperitoneal r eal time w/image limited Chna Castro Work Phone: Start: 05-31-2020 End: 05-31-2020 Gluc bld gluc mntr dev cleared fda spec home use Jean Claude A Killian Work Phone: Start: 05-31-2020 Basic metabolic pane l calcium total Velasquez Powers [employer] Work Phone: Start: 05-31-2020 Blood count complete auto&auto difrntl wbc Velasquez Powers [employer] Work Phone: Start: 05-31-2020 C-reactive protein Gabe zuhair Powers [employer] Work Phone: Start: 05-31-2020 Hemoglobin glycosyla barbara a1c Velasquez Powers [employer] Work Phone: Start: 05-31-2020 Prothrombin time Amy Powers [employer] Work Phone: Start: 05-31-2020 Sedimentation rate r bc automated Velasquez Powers [employer] Work Phone: Start: 05-31-2020 End: 05-31-2020 Gluc bld gluc mntr dev cleared fda spec home use Jean Claude A [employer] Work Phone: Start: 05-31-2020 End: 05-31-2020 Gluc bld gluc mntr dev cleared fda spec home use Jean Claude A Killian Work Phone: Start: 05-31-2020 Gluc bld gluc mntr d ev cleared fda spec home use Jean Claude A [employer] Work Phone: Start: 05-30-2020 Gluc bld gluc mntr d ev cleared fda spec home use Jean Claude A [employer] Work Phone: Start: 05-30-2020 End: 05-30-2020 Gluc [...] Claude A Killian Work Phone: Start: 05-30-2020 Echo tthrc r-t 2d w/wom-mode compl spec&colr d Velasquez Powers [employer] Work Phone: Start: 05-30-2020 End: 05-30-2020 Gluc bld gluc mntr dev cleared fda spec home use Jean Claude A Killian Work Phone: Start: 05-30-2020 Gluc bld gluc mntr d ev cleared fda spec home use Jean Claude A Killian Work Phone: Start: 05-30-2020 Culture bacterial bl ood aerobic w/id isolates Velasquez Powers [employer] Work Phone: Start: 05-30-2020 CULTURE, BLOOD 1 Amy Powers [employer] Work Phone: Start: 05-30-2020 Prothrombin time Amy Powers [employer] Work Phone: Start: 05-30-2020 Assay of magnesium [...] Claude A Killian Work Phone: Start: 05-14-2020 Radiologic [...] Killian Work Phone: Start: 05-08-2020 EXTUBATION [facility] Work Phone: Start: 05-08-2020 End: 05-08-2020 Gluc [...] Start: 05-08-2020 US Heart Transesophageal Velasquez Gio [employer] Work Phone: Start: 05-08-2020 Gluc bld gluc mntr d ev cleared fda spec home use Jean Claude A Killian Work Phone: Start: 05-08-2020 Ecg routine ecg w/le ast 12 lds w/i&r Liz Caballero [employer] Work Phone: Start: 05-08-2020 Blood typing serologic abo Velasquez Powers [employer] Work Phone: Start: 05-01-2020 Radiologic exam ches t 2 views Liz Caballero [employer] Work Phone: Start: 05-01-2020 Urnls dip stick/tabl et rgnt auto w/o microscopy Liz Caballero [employer] Work Phone: Start: 05-01-2020 Assay of magnesium Diego Caballero [employer] Work Phone: Start: 05-01-2020 Blood count complete auto&auto difrntl wbc Velasquez R [employer] Work Phone: Start: 05-01-2020 Blood typing serologic abo Liz N [place] Work Phone: Start: 05-01-2020 Comprehensive metabo lic panel Liz Vaughn Work Phone: Start: 05-01-2020 Hemoglobin glycosyla barbara a1c Liz Vaughn Work Phone: Start: 05-01-2020 Prothrombin time [employer] Vaughn Work Phone: Start: 05-01-2020 Thromboplastin time [...] Treatment Date Care Activity Detail Author Start: 05-09-2026 Annual PCP Team Chronic Disease Visit Annual PCP Team Chronic Disease Visit [facility] Start: 02-11-2026 Annual PCP Team Chronic Disease Visit Annual PCP Team Chronic Disease Visit [facility] Start: 12-05-2025 BP Controlled (<130/80) BP Controlled (<130/80) [facility] Start: 11-08-2025 Annual PCP Team Chronic Disease Visit Annual PCP Team Chronic Disease Visit [facility] Start: 08-13-2025 Annual PCP Team Chronic Disease Visit Annual PCP Team Chronic Disease Visit [facility] Start: 08-13-2025 BP Controlled (<130/80) BP Controlled (<130/80) [facility] Start: 08-13-2025 Covid-19 Vaccine () Covid-19 Vaccine () [facility] Comment on above: Postponed from 04/29/2024 (Declined at t his time) Start: 08-13-2025 Hepatitis B screening Urine Albumin:Creatinine Ratio [facility] Start: 08-13-2025 Hepatitis B surface antibody level LDL Cholesterol [facility] Start: 07-17-2025 End: 07-17-2025 Patient encounter procedure 07/17/2025 3:00 PM EST Office Visit Family Practice [address] [place], [place] [id number] Aaron Solorzano MD [address] [place] [address] [place], [place] [id number] medicare wellness [facility] Comment on above: medicare wellness Start: 07-13-2025 [...] of insulin (HCC) Expected: 07/13/2025, Expires: 10/12/2025 [facility] Work Phone: Comment on above: Expected: 07/13/2025, Expires: Start: 07-13-2025 End: 10-12-2025 Lipid 1996 panel - Serum or Plasma LIPID PANEL, FASTING Lab Routine Mixed hyperlipidemia Expected: 07/13/2025, Expires: 10/12/2025 [facility] Comment on above: Expected: 07/13/2025, Expires: Start: 05-09-2025 End: 08-08-2025 TOXICOLOGY SCREEN, ROUTINE URINE TOXICOLOGY SCREEN, ROUTINE URINE Lab Routine Lumbar spondylosis Expected: 05/09/2025, Expires: 08/08/2025 [facility] Work Phone: Comment on above: Expected: 05/09/2025, Expires: Start: 04-29-2025 Influenza vaccination [facility] Start: 04-19-2025 Patient discharge [facility] Start: 04-19-2025 Referral to service [facility] Start: 04-18-2025 Referral to occupational therapist [facility] Start: 04-18-2025 Referral to service [facility] Start: 04-18-2025 Inhalation therapy procedure [facility] Start: 04-18-2025 Removal of urinary catheter [facility] Start: 04-17-2025 Oxygen therapy [facility] Start: 04-17-2025 [facility] Start: 04-17-2025 Bacteria identified in Blood by Culture Blood Culture [facility] Start: 04-17-2025 Application of intermittent pneumatic compression device [facility] Start: 04-16-2025 [facility] Start: 04-16-2025 Blood culture Blood Culture [facility] Start: 04-16-2025 End: 04-17-2025 [facility] Start: 04-15-2025 Continuous positive airway pressure ventilation treatment [facility] Start: 04-15-2025 Assessment of risk of venous thromboembolism [facility] Start: 04-15-2025 Care regimes management [facility] Start: 04-15-2025 Catheterization of vein [facility] Start: 04-15-2025 Consultation [facility] Start: 04-15-2025 Insertion of catheter into peripheral vein [facility] Start: 04-15-2025 Measuring intake and output [facility] Start: 04-15-2025 Notification of physician [facility] Start: 04-15-2025 Providing care according to standard [facility] Start: 04-15-2025 Provision of activity privileges [facility] Start: 04-15-2025 End: 04-15-2025 [facility] Start: 04-15-2025 Following clinical pathway protocol [facility] Start: 04-15-2025 Verification routine [facility] Start: 04-15-2025 Admission procedure [facility] Start: 04-15-2025 Hospital admission, emergency, from emergency room, medical nature [facility] Start: 04-15-2025 End: 04-15-2025 [facility] Start: 04-15-2025 Bacteria identified in Blood by Culture Blood Culture [facility] Start: 04-15-2025 Bacteria identified in Urine by Culture Urine Culture [facility] Start: 02-25-2025 Influenza vaccination Influenza Vaccine (#1) [place] [facility] Comment on above: Postponed from 04/29/2024 (Declined at t his time) Start: 02-11-2025 End: 02-11-2025 Patient encounter procedure 02/11/2025 3:00 PM EDT Office Visit Family Practice [address] [place] [address] [place] [address] Aaron Solorzano MD [address] [place] [address] [place] [address] six month follow up Family Practice Comment [...] 12-19-2024 Diabetic foot examination Diabetic Foot Exam [facility] Start: 11-08-2024 End: 11-08-2024 Patient encounter procedure 11/08/2024 11:00 AM EDT Office Visit Family Practice [address] [place] [address] Aaron Solorzano MD [address] [place], [place] [address] CPAP follow up and machine broke down [facility] Comment on above: CPAP follow up and machine broke down Start: 10-17-2024 Annual PCP Team Chronic Disease Visit Annual PCP Team Chronic Disease Visit [facility] Start: 08-29-2024 Advance Directive Discussion Advance Directive Discussion [facility] Start: 08-29-2024 Medicare Advantage Annual Wellness Visit Medicare [facility] Annual Wellness Visit [facility] Start: 08-13-2024 End: 08-13-2024 Patient encounter procedure 08/13/2024 2:00 PM EST Office Visit Family Practice [address] [place] [address] Daxa Wing, WHOLESALER.DOUBLE CUTTER [address] [place] [address] Diabetes follow up [facility] Comment on above: Diabetes follow up Start: [...] of insulin (HCC) Expected: 08/09/2024, Expires: 11/08/2024 [facility] Work Phone: Comment on above: [...] (<130/80) [facility] Start: 06-16-2024 RSV Vaccine (1 - 1-dose [...] of 2) Shingrix Vaccine (1 of 2) [facility] Comment on above: Postponed from 1998 [...] 03-22-2024 BP CONTROLLED (<130/80) BP CONTROLLED (<130/80) [facility] Start: 02-26-2024 Influenza vaccination Influenza Vaccine (#[facility] Comment on above: Postponed from 04/29/2023 (Declined at t his time) Start: 02-18-2024 ANNUAL PCP TEAM CHRONIC DISEASE VISIT ANNUAL PCP TEAM CHRONIC DISEASE VISIT [facility] Start: 02-18-2024 BP CONTROLLED (<130/80) BP CONTROLLED (<130/80) [facility] Start: 01-16-2024 End: 01-16-2024 Patient encounter procedure 01/16/2024 1:40 PM EDT Office Visit Family Practice [address] [place] [address] [place], [place] [address] Aaron Solorzano MD [address] [place] [address] [place] [address] 3m follow up Family Practice Comment on above: 3m follow up Start: 01-08-2024 ANNUAL PCP TEAM CHRONIC DISEASE VISIT ANNUAL PCP TEAM CHRONIC DISEASE VISIT [facility] Start: 01-03-2024 Hemoglobin A1c measurement HbA1C [facility] Start: 01-03-2024 Hemoglobin A1c/Hemoglobin.total in Blood HbA1C [facility] Start: 10-17-2023 Covid-19 Vaccine () Covid-19 Vaccine () [facility] Start: 09-09-2023 Hepatitis B screening URINE ALBUMIN:CREATININE RATIO [facility] Start: 09-09-2023 Hepatitis B surface antibody level LDL CHOLESTEROL [facility] Start: 01-01-2024 Advance Directive Discussion Advance Directive Discussion [facility] Start: 08-29-2023 Behavioral Health Screening Behavioral Health Screening [facility] Start: 08-29-2023 Depression Assessment Depression Assessment [facility] Start: 08-25-2023 3 comp foot exam completed DIABETIC FOOT EXAM [facility] Start: 08-25-2023 ANNUAL PCP TEAM CHRONIC DISEASE VISIT ANNUAL PCP TEAM CHRONIC DISEASE VISIT [facility] Start: 08-25-2023 BP CONTROLLED (<130/80) BP CONTROLLED (<130/80) [facility] in Start: 08-25-2023 Diabetic foot examination Diabetic Foot Exam [facility] Start: 2023 RSV Vaccine (1 - [...] Sodium blood decreased Expected: 12/12/2022, Expires: 02/11/2023 [facility] Work Phone: Comment on above: Expected: 12/12/2022, Expires: Start: 10-26-2022 BP CONTROLLED (<130/80) BP CONTROLLED [...] of insulin (HCC) Expected: 08/25/2022, Expires: 10/25/2022 [facility] Work Phone: Comment on above: Expected: 08/25/2022, Expires: 3 Start: 08-25-2022 End: 10-25-2022 Hemoglobin A1c in Blood HGB A1C Lab Routine Controlled type 2 diabetes mellitus with diabetic neuropathy, with long-term current use of insulin (HCC) Expected: 08/25/2022, Expires: 10/25/2022 [facility] Work Phone: Comment on above: Expected: 08/25/2022, Expires: 3 Start: 08-25-2022 End: 10-25-2022 Lipid 1996 panel - Serum or Plasma LIPID PANEL BASIC Lab Routine Mixed hyperlipidemia Expected: 08/25/2022, Expires: 10/25/2022 [facility] Work Phone: Comment on above: Expected: 08/25/2022, Expires: 3 Start: 08-25-2022 End: 10-25-2022 Microalbumin [Mass/volume] in Urine ALBUMIN RANDOM URINE Lab Routine Controlled type 2 diabetes mellitus with diabetic neuropathy, with long-term current use of insulin (HCC) Expected: 08/25/2022, Expires: 10/25/2022 [facility] Work Phone: Comment on above: [...] HBA1C [facility] Start: 03-16-2022 [facility] Work Phone: Start: 12-31-2021 Glaucoma screening Dilated [...] Hospital Start: 06-02-2021 Creatinine [facility] Start: 06-02-2021 Potassium monitoring [facility] [place] Start: 05-31-2021 HbA1c (Bld) [Mass fraction] A1C test (Diabetic or Prediabetic) [facility] Start: 05-30-2021 Lipid panel Lipid screen [facility] Start: 05-30-2021 Statin Therapy Statin Therapy [facility] Start: 05-14-2021 Creatinine measurement [facility] [place] [facility] Start: 05-14-2021 Potassium monitoring Potassium monitoring [facility] [place] Start: 05-01-2021 HbA1c (Bld) [Mass fraction] A1C test (Diabetic or Prediabetic) [facility] [place] Start: 04-29-2021 Influenza vaccination INFLUENZA (#1) [facility] Start: 04-15-2021 Creatinine [facility] Start: 04-15-2021 Potassium monitoring Potassium monitoring [place] Start: 07-09-2020 End: 07-09-2020 Virtual Visit 07/09/2020 Virtual Visit Cardiothoracic Surgery Velasquez Savage [employer] - [employer] [address] [place] [address] [phone] [facility] Start: 06-19-2020 End: 06-19-2020 Virtual Visit 06/19/2020 Virtual Visit Cardiothoracic Surgery Migue Gregorio, [employer]OLESAL[employer] - [employer] [address] [address] [phone] [facility] Start: 06-10-2020 End: 06-10-2020 Office Visit 06/10/2020 Office Visit Cardiothoracic Surgery Velasquez Savage, [employer] - [employer] [address] [place] [address] [phone] [facility] Start: 05-29-2020 End: 05-29-2020 Virtual Visit 05/29/2020 Virtual Visit Cardiothoracic Surgery Migue Gregorio, [employer]ES[employer] - [employer] [address] [address] [phone] [facility] Start: 05-19-2020 End: 05-19-2020 Virtual Visit 05/19/2020 Virtual Visit Cardiothoracic Surgery Velasquez Savage, [employer] - D[employer] C[employer] [address] [place] [address] [phone] [facility] Start: 05-08-2020 End: 05-08-2020 Appointment 05/08/2020 Appointment General Surgery Jean Claude Killian MD [address] [place] [address] [phone] [facility] General Surgery Start: 04-29-2020 Influenza vaccination Flu vaccine (#1) [place] Start: 04-22-2020 Annual Wellness Visit (AWV) Annual Wellness Visit (AWV) [place] Start: 11-30-2019 BP CONTROLLED (<130/80) BP CONTROLLED (<130/80) [facility] Start: 05-18-2017 End: 06-08-2017 Follow Up Appt Other Follow Up Appt Other [facility] Work Phone: Start: 05-18-2017 End: 05-18-2017 Appointment Appointment [facility] Work Phone: Start: 05-05-2017 End: 05-05-2017 Appointment Appointment [facility] Work Phone: Start: 05-05-2017 End: 06-07-2017 Follow Up Appt 2 weeks Follow Up Appt 2 weeks [facility] Work Phone: Start: 04-27-2017 DTaP/Tdap/Td vaccine (2 - Td) DTaP/Tdap/Td vaccine (2 - Td) [place] Start: 04-27-2017 Urine microalbumin profile [facility] Start: 04-21-2017 End: 04-21-2017 Appointment Appointment [facility] Work Phone: Start: 04-21-2017 End: 06-07-2017 Follow Up Appt 2 weeks Follow Up Appt 2 weeks [facility] Work Phone: Start: 04-13-2017 End: 04-13-2017 Appointment Appointment [facility] Work Phone: Start: 04-13-2017 End: 04-18-2017 Follow up Appt 1 week Follow up Appt 1 week [facility] Work Phone: Start: 04-13-2017 End: 04-18-2017 Follow up Appt 1 week Follow up Appt 1 week [facility] Work Phone: Start: 04-08-2017 End: 04-08-2017 Appointment Appointment [facility] Work Phone: Start: 04-08-2017 End: 04-13-2017 Follow up Appt 1 week Follow up Appt 1 week [facility] Work Phone: Start: 04-08-2017 End: 04-13-2017 Follow up Appt 1 week Follow up Appt 1 week [facility] Work Phone: Start: 03-31-2017 End: 04-06-2017 Follow up Appt 1 week Follow up Appt 1 week [facility] Work Phone: Start: 03-31-2017 End: 04-04-2017 OT-Hand Therapy [facility], [address] [place] [address], [phone] [facility] Work Phone: Start: 03-31-2017 End: 04-06-2017 Follow up Appt 1 week Follow up Appt 1 week [facility] Work Phone: Start: 03-31-2017 End: 04-04-2017 OT-Hand Therapy [facility], [address] [place] [address], [phone] [facility] Work Phone: Start: 03-23-2017 End: 03-23-2017 Appointment Appointment [facility] Work Phone: Start: 03-22-2017 End: 03-22-2017 Appointment Appointment [facility] Work Phone: Start: 03-22-2017 End: 04-06-2017 Follow Up Appt Other Follow Up Appt Other [facility] Work Phone: Start: 03-22-2017 End: 04-06-2017 Follow Up Appt Other Follow Up Appt Other [facility] Work Phone: Start: 01-29-2015 End: 01-29-2015 Radiologic exam knee complete 4/more views X-Ray, Knee [facility] Work Phone: Start: 01-29-2015 End: 01-29-2015 X-ray exam, knee, 4 or more X-Ray, Knee [facility] Work Phone: Start: 09-06-2014 End: 09-06-2014 Radiologic exam knee complete 4/more views X-Ray, Knee [facility] Work Phone: Start: 09-06-2014 End: 09-06-2014 X-ray exam, knee, 4 or more X-Ray, Knee [facility] Work Phone: Start: 2008 Hepatitis B Vaccine (1 of 3 - Risk 3-dose series) Hepatitis B Vaccine (1 of 3 - Risk 3-dose series) [facility] Start: 1998 Screening for malignant neoplasm of colon Colon cancer screen colonoscopy [place] Start: 1998 Shingles Vaccine (1 of 2) Shingles Vaccine (1 of 2) [place] Start: 1998 SHINGRIX VACCINE (1 of 2) SHINGRIX VACCINE (1 of 2) [facility] Start: 1993 COLOGUARD (FIT-DNA) COLOGUARD (FIT-DNA) [facility] Start: 1993 Colonoscopy COLONOSCOPY [facility] Start: [address] COLONOGRAPHY [facility] Start: 1993 Screening for malignant neoplasm of colon [facility] Start: 1993 SIGMOIDOSCOPY SIGMOIDOSCOPY [facility] Start: 1967 SHINGRIX VACCINE (1 of 2) SHINGRIX VACCINE (1 of 2) [facility] Start: 1966 Diabetic microalbuminuria test Diabetic microalbuminuria test [place] Start: 1958 Diabetic foot examination Diabetic foot exam [place] Start: 1958 Diabetic retinal exam Diabetic retinal exam [place], [place] Start: 1958 Lipid panel Lipid screen [place] Start: 1948 Abdominal aortic aneurysm screening AAA screen [place], [place] Start: 1948 Hepatitis C screening Hepatitis C screen [place], [place] Start: 1948 TSH Qn TSH testing [place] Basic metabolic 2000 panel Basic Metabolic Panel Lab Routine Daily until discontinued starting 05/08/2020, 6 completed [place] Comment on above: Daily until discontinued starting 2019, 6 completed Calcium, Ionized Calcium, Ionize d Lab Routine As Needed until discontinued starting 05/08/2020 [place] Comment on above: As Needed until discontinued starting CBC CBC Lab Routine Daily until discontinued starting 05/08/2020, 5 completed [facility] Comment on above: Daily until discontinued starting 2019, 5 completed CBC Auto Differential CBC Auto D ifferential Lab Routine Daily until discontinued starting 05/31/2020, 3 completed [place] [facility] Comment on above: Daily until discontinued starting 2019, 3 completed CBC panel - Blood by Automated count COMPLETE BLOOD COUNT Lab Routine Controlled type 2 diabetes mellitus with diabetic neuropathy, with long-term current use of insulin (HCC) Ordered: 08/13/2024 [facility] Work Phone: Comment on above: Ordered: 08/13/2024 Comprehensive metabo lic 2000 panel - Serum or Plasma COMPREHENSIVE METABOLIC PANEL Lab Routine Essential hypertension, benign Mixed hyperlipidemia Ordered: 08/13/2024 [facility] Comment on above: Ordered: 08/13/2024 CPAP [facility] [place] Santana Comment on above: As Needed until discontinued starting Every 4hr until disc ontinued starting 05/30/2020 End: 05-30-2020 CRP [Mass/Vol] C-REACTIVE PROTEIN Lab Routine One Time for 1 Occurrences starting 05/30/2020 until 05/30/2020 [facility] Comment on above: One Time for 1 Occurrences starting 09/2019 until 05/30/2020 CRP [Mass/Vol] C-REACTIVE PROTE IN Lab Routine 05/31/2020 5:55 AM EDT [place] [facility] Culture, Blood 2 Culture, Blood 2 Microbiology STAT 05/30/2020 10:15 AM EDT [facility] EKG 12 lead EKG 12 lead ECG Routine Pre-op testing 05/01/2020 11:56 AM EDT [facility] End: 05-30-2020 HbA1c (Bld) [Mass fraction] Hemoglobin A1c Lab Routine One Time for 1 Occurrences starting 05/30/2020 until 05/30/2020 [facility] Comment on above: One Time for 1 Occurrences starting 09/2019 until 05/30/2020 HbA1c (Bld) [Mass fraction] Hemoglobin A1c Lab Routine 05/31/2020 5:55 AM EDT [facility] Hemoglobin and Hematocrit, Blood, Post Transfusion [facility] Comment on above: Post Transfusion Post Transfusion Post T ransfustion for 1 Occurrences starting 05/11/2020 Post Transfusion Pos t Transfusion Post Transfustion for 1 Occurrences starting 05/12/2020 Hemoglobin.gastroint magalie alRuallower [Presence] in Stool by Immunoassay FECAL OCCULT BLOOD TEST Lab Routine Screening for colon cancer Ordered: 05/17/2022 [facility] Work Phone: Comment on above: Ordered: 05/17/2022 Lipid 1996 panel - S miles or Plasma LIPID PANEL BASIC Lab Routine Mixed hyperlipidemia Ordered: 08/13/2024 [facility] Comment on above: Ordered: 08/13/2024 Magnesium [Mass/Vol] Magnesium L ab Routine Daily until discontinued starting 05/08/2020, 6 completed [facility] Comment on above: Daily until discontinued starting 2019, 6 completed End: 06-01-2020 Magnesium [Mass/Vol] Magnesium Lab Add-On One Time for 1 Occurrences starting 06/01/2020 until 06/01/2020 [facility] Comment on above: One Time for 1 Occurrences starting 11/2019 until 06/01/2020 Microalbumin/Creatin ine [Mass Ratio] in Urine ALBUMIN/CREATININE RATIO, URINE Lab Routine Controlled type 2 diabetes mellitus with diabetic neuropathy, with long-term current use of insulin (HCC) Ordered: 08/13/2024 [facility] Comment on above: Ordered: 08/13/2024 Oxygen therapy [Mini [facility] Data Set] Initiate Oxygen Therapy Protocol Respiratory Care Routine Daily until discontinued starting 05/30/2020 [facility] Comment on above: Daily until discontinued starting 2019 Patient Education [place] Work Phone: Patient referral [facility] Work Phone: End: 05-10-2020 POCT Glucose POCT Glucose Point of Care Testing Timed Every Hour (Lab) for 2 Days starting 05/08/2020 until 05/10/2020 [facility] Comment on above: Every Hour (Lab) for 2 Days starting 05/2020 until 05/10/2020 POCT Glucose [facility] JULIA Santana Comment on above: 4X Daily (AC & HS) until discontinued st arting 05/09/2020 As Needed until disc ontinued starting 05/30/2020 4X Daily (AC & HS) u ntil discontinued starting 05/31/2020 Protime-INR Protime-INR Lab Routine Daily until discontinued starting 05/11/2020, 4 completed [facility] Comment on above: Daily until discontinued starting 2019, 4 completed End: 05-30-2020 SEDIMENTATION RATE SEDIMENTATION RATE Lab Routine One Time for 1 Occurrences starting 05/30/2020 until 05/30/2020 [facility] Comment on above: One Time for 1 Occurrences starting 09/2019 until 05/30/2020 SEDIMENTATION RATE SEDIMENTATION RATE Lab Routine 05/31/2020 5:55 AM EDT [facility] Spirometry panel Incentive rima metry RT Respiratory Care Routine Every 2hr while awake until discontinued starting 05/31/2020 [facility] [place] Comment on above: Every 2hr while awake until discontinued starting 05/31/2020 Urine culture [facility] XR CHEST PORTABLE XR CHEST CHE BLE Imaging Routine Daily until discontinued starting 05/09/2020, 6 completed [facility] [place] Comment on above: Daily until discontinued starting 2019, 6 completed [facility] Immunizations Immunization Date Immunization Notes Care Provider [facility] 06-16-2023 COVID-19 vaccine, ag e 12+ yr, 2022- season (PFIZER-BIONTECH) Aaron Solorzano MD Work Phone: [facility] 08-25-2022 COVID-19 booster vaccine, age 12+ yr, bivalent (PFIZER-BIONTECH) Daxa Moody APRN.DOUBLE CUTTER Work Phone: [facility] 07-10-2021 SARS-CoV-2 mRNA (tozinameran) vaccine MIKE RAI DO [facility] 11-25-2020 SARS-CoV-2 mRNA (tozinameran) vaccine MIKE RAI DO [facility] 11-04-2020 SARS-CoV-2 mRNA (tozinameran) vaccine MIKE RAI DO [facility] Comment on above: Result Comment: 2021: [id number] 06-13-2018 influenza virus vacc ine, unspecified formulation Aaron Solorzano MD Work Phone: [facility] 06-18-2017 pneumococcal conjuga te vaccine, 13 valent MIKE RAI DO [facility] 09-21-2013 pneumococcal polysaccharide vaccine, 23 valent Aaron [...] Medicare (Managed Care) MMO KEENAN DVANTAGE O [id number] 2024 Medicare [id number] 2024 Self-pay [id number] 2019 Private Health Insurance MMO MEDICARE SUPPLEMENT [id number] 2019 Unknown O MMO MEDICARE SUPPLEMENT [id number] 2019-Present [phone] [address] [place] [address] Indemnity [id number] 2019 Unknown [id number] 2016 Unknown [id number] 2011 Medicare MEDICARE MEDICAR E A AND B [id number] 2011-Present [phone] [place] [address] Medicare [id number] 2011 Medicare [id number] 2011 Medicare [id number] 2002 Unknown [id number] Medicare [id number] Unknown [id number] .462 Unknown [id number] [id number] .462 Unknown [id number] 2.16.840.1.756330.3.579.2 .462 Unknown [id number] 2.16.840.1.303551.3.579.2 .462 Unknown [id number] 2.16.840.1.698518.3.579.2 .462 Unknown [id number] 2.16.840.1.915191.3.579.2 .462 Unknown [id number] 2.16.840.1.447987.3.579.2 .462 Unknown [id number] 2.16.840.1.803992.3.579.2 .462 Unknown [id number] .462 Unknown [id number] 2.16.840.1.194038.3.579.2 .462 Unknown [id number] 2.16.840.1.818761.3.579.2 .462 Unknown [id number] 2.16.840.1.271183.3.579.2 .462 Unknown [id number] 2.16.840.1.348898.3.579.2 .462 Unknown [id number] 2.16.840.1.556533.3.579.2 .462 Unknown [id number] [id number] .462 Unknown [id number] [id number] .462 Unknown [id number] .462 Social History Date Type Detail Facility Start: 05-09-2020 End: 05-19-2024 Tobacco smoking status NHIS Former sm[place] End: 09-12-1994 History of tobacco use Current [place]oker [place] Start: 05-09-2020 End: 01-07-2023 Cigarettes smoked current (pack per day) - Reported [facility] Work Phone: Start: 05-01-2020 End: 05-09-2020 Tobacco use and exposure Former user [place] History of tobacco use Snuff User [place] Start: 05-01-2020 End: 05-09-2020 Alcohol intake Lifetime non-drinker (finding) [place] Start: 03-26-2020 History SDOH Alcohol Frequency 1 [place] Start: 1950 Sex Assigned At Not on file M [place] Start: 09-26-2021 End: 10-26-2021 Exposure to SARS-CoV-2 (event) Not sure [place] Start: 1950 Sex Assigned At Male A [facility] Start: 10-26-2021 End: 05-09-2025 Alcohol intake Current non-drinker of alcohol (finding) [facility] Start: 08-19-2011 End: 08-25-2022 Tobacco Comment No one in household smokes [facility] Start: 03-16-2022 End: 02-05-2023 Tobacco smoking status [facility] Unknown if ever smoked [facility] Start: 07-30-2014 None [facility] Start: 07-30-2014 Spouse/ Signif icant Other [facility] Start: 01-11-2021 Non-smoker [facility] End: 09-12-1994 History of tobacco use Cigarette Smoker [facility] Start: 08-19-2011 End: 05-19-2024 Tobacco use and exposure Smokeless tobacco non-user [facility] Start: 01-07-2023 End: 03-22-2023 Tobacco use panel [facility] Work Phone: Start: 07-30-2012 Adult Depression Screening Assessment 0 [facility] Work Phone: Start: 12-17-2024 Sex Male (finding) [facility] Medical Equipment Procedure Code Equipment Code Equipment Original Text Equipment Identifier Dates INSULIN SYRINGE-NEEDLE [id number], [id number], [id number] Start: 01-11-2014 End: 05-09-2025 Comment on above: Test blood sugar(s) 4 times daily. Insulin: Yes Use as directed once daily with insulin DX: E11.65 DM: yes Insulin: yes Test blood sugar(s) 4 times daily. Dx: Type 2 DM - Controlled E11.9 Insulin: Yes Test blood sugar(s) 3 times daily. Insulin: Yes Accu-chek Lois Meter with multiclix lancet device use as directed [id number] Start: 09-03-2013 End: 05-09-2025 Comment on above: Accu-chek Lois Mete r with multiclix lancet device use as directed Goals Date Patient Goal Desired Activity /State Functional Status Date Assessment Result Facility 04-19-2025 Functional status Ambulates;Bath room Privilege [facility] Work Phone: 03-13-2015 Are you deaf, or do you have serious difficulty hearing Yes 03/13/2015 10:18 AM Rosalio Dior)(Hist), RN Yes [facility] 03-13-2015 [...] dressing or bathing No 03/13/2015 10:18 AM Rosalio DiorRn)(Hist), RN No [facility] 03-13-2015 Because of a physica l, mental, or emotional condition, do you have difficulty doing errands alone such as visiting a physician's office or shopping No 03/13/2015 10:18 AM EDT Rosalio Taylor (Rn)(Hist), RN No [facility] Mental Status Date Assessment Result Facility 04-19-2025 Cognitive function Voice/Name [facility] Work Phone: 04-15-2025 Cognitive function Voice/Name [facility] Work Phone: 03-16-2022 Cognitive function Voice/Name [facility] Work Phone: 03-13-2015 Because of a physica l, mental, or emotional condition, do you have serious difficulty concentrating, remembering, or making decisions No 03/13/2015 10:18 AM EDT Rosalio TaylorRn)(Hist), RN No [facility] Clinical Notes 08-13-2008 to 05-10-2025 Telephone Encounter - Aaron Solorzano MD - 05/10/2025 8:15 AM EDTTelephone Encounter - Aaron Solorzano MD - 05/10/2025 8:15 AM Daxa Collado APRN.DOUBLE CUTTER - 05/09/2025 1:35 PM EDT Note Date & Type Note Facility 05-10-2025 Telephone encount er Note The following approved medication requests have been transmitted electronically. Requested Prescriptions Signed Prescriptions Disp Refills traMADol (ULTRAM) 50 mg tablet 120 tablet 0 Sig: Take 1 tablet by mouth every 6 hours as needed for pain for up to 30 days. Authorizing Provider: AARON SOLORZANO MD [facility] 05-10-2025 Miscellaneous Notes Formattin g of this note is different from the original. The following approved medication requests have been transmitted electronically. Requested Prescriptions Signed Prescriptions Disp Refills traMADol (ULTRAM) 50 mg tablet 120 tablet 0 Sig: Take 1 tablet by mouth every 6 hours as needed for pain for up to 30 days. Authorizing Provider: AARON SOLORZANO MD documented in this encounter [facility] 05-09-2025 History of Presen t illness Narrative The patient is a 74-year-old male with hypertension, type 2 diabetes mellitus, and chronic back pain, presenting for follow up after 7 day hospitalization for presumed MRSA bacteremia. MRSA Infection: - Ascencion Weir was hospitalized for 7 days for MRSA bacteremia (hospital discharge summary reviewed) - Currently receiving weekly antibiotic infusions at home; 5 more days of treatment remaining. - Reports back pain onset after starting antibiotics, described as stabbing and severe, particularly in the mornings. - Pain localized to the left lower side of the back, not radiating to the legs. - Using Tylenol for pain management with some relief. - Denies current chest pain, dyspnea, cough, or edema. Chronic Back Pain: - Managed with tramadol, prescribed by PCP, needs refill. Overdue for urine tox, unable to provide sample, used bathroom when he arrived today - Typically takes tramadol 2-3 times daily, occasionally 3-4 times if pain is severe. - Uses Voltaren gel for additional pain relief. Hypertension: - Home blood pressure readings reportedly a little high, around 150/70-90 mmHg. - No changes to antihypertensive medication during hospitalization; continues metoprolol 100 mg, taking half a tablet daily. Diabetes Mellitus: - Blood glucose levels during hospitalization were slightly elevated but not significantly. - Current home glucose readings range from 100-150 mg/dL, checked in the morning before breakfast. Constipation: - Onset of constipation since hospitalization, with occasional straining. - Denies use of pain medication during hospitalization. Chronic urticaria: - managed on Plaquenil, prescribed by PCP Ocular Health: - Due for an annual eye exam; has not been seen this year. - History of cataract removal. 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 Thrasher with Kneecap CARDIAC CATH 03/18/2020 [facility] I/D PERIANAL ABSCESS, SUPERFICIAL 08/13/08 PAST SURGICAL HISTORY OF 07/07 lumbar diskectomy PAST SURGICAL HISTORY OF Right 2015 [facility] Allergies: ALLERGIES Allergen Reactions Entex Pse [Pseudoep* Intolerance Patient states he does not have any allergies Medications: traMADol (ULTRAM) 50 mg tablet Take 50 mg by mouth every 6 hours as needed for pain. metFORMIN (GLUCOPHAGE) 1,000 mg tablet Take 1 tablet by mouth two times a day with meals. gabapentin (NEURONTIN) 400 mg capsule Take 1 capsule by mouth two times a day for 180 days. amoxicillin (AMOXIL) 500 mg capsule Take 4 capsules by mouth prior to dental procedure. multivitamin tablet Take 1 tablet by mouth once daily. celecoxib (CELEBREX) 200 mg capsule Take 1 capsule by mouth twice daily. Take with food. tamsulosin (FLOMAX) 0.4 mg Take 1 capsule by mouth daily at bedtime. metoprolol succinate ER (TOPROL XL) 100 mg Take 0.5 tablets by mouth once daily. atorvastatin (LIPITOR) 20 mg tablet Take 1 tablet by mouth once daily. hydrOXYchloroQUINE (PLAQUENIL) 200 mg tablet Take 1 tablet by mouth every afternoon. Lancets lancets Test blood sugar(s) 4 times daily. Dx: Type 2 DM - Controlled E11.9 Insulin: Yes CPAP Initiate CPAP @ 7 cm of water with humidification. Mask (per patient preference) optional chin strap (if indicated) , filters, tubing, humidifier and lifetime supplies. aspirin, enteric coated (ADULT ASPIRIN EC LOW STRENGTH) 81 mg EC tablet Take 1 tablet by mouth every 48 hours. (Patient taking differently: Take 81 mg by mouth once daily.) blood sugar diagnostic (TRUE METRIX GLUCOSE TEST STRIP) test strip Test blood sugar(s) 3 times daily. Insulin: Yes (Patient not taking: Reported on 11/08/2024) COMPOUNDED PRESCRIPTION Accu-chek Lois Meter with multiclix lancet device use as directed (Patient not taking: Reported on 11/08/2024) Review of Systems Respiratory: Negative for shortness of breath and wheezing. Cardiovascular: Negative for chest pain and palpitations. Gastrointestinal: Positive for constipation. Negative for nausea and vomiting. Musculoskeletal: Positive for back pain. Objective BP 153/75 Pulse 73 Wt 89 kg (196 lb 3.4 oz) BMI 29.84 kg/m BP 136/60 (BP Site: Left Arm, BP Position: Sitting, BP Cuff Size: Large Adult) Pulse 73 Wt 89 kg (196 lb 3.4 oz) BMI 29.84 kg/m Physical Exam Vitals and nursing note reviewed. Constitutional: Appearance: He is well-developed. He is not ill-appearing. HENT: Head: Normocephalic. Eyes: Conjunctiva/sclera: Conjunctivae normal. Cardiovascular: Rate and Rhythm: Normal rate and regular rhythm. Heart sounds: Normal heart sounds. Pulmonary: Effort: Pulmonary effort is normal. Breath sounds: Normal breath sounds. Musculoskeletal: Right lower leg: No edema. Left lower leg: No edema. Skin: General: Skin is warm and dry. Neurological: Mental Status: He is alert and oriented to person, place, and time. Gait: Gait normal. Psychiatric: Mood and Affect: Mood normal. Assessment and Plan 1. Hospital discharge follow-up (Z09) 2. MRSA bacteremia (R78.81) - Recent hospitalization for 7 days due to MRSA bacteremia, blood cultures positive - Currently receiving home IV antibiotic therapy via PICC line; 5 days remaining in treatment course. - Reviewed hospital records - Advised patient to continue current antibiotic regimen as prescribed. - Educated on musculoskeletal nature of back pain and recommended heat, ice, topical agents (e.g., Voltaren gel), massage, and stretching for symptom relief. - Follow-up after completion of antibiotic therapy or sooner if symptoms worsen. 3. Controlled type 2 diabetes mellitus with diabetic neuropathy, with long-term current use of insulin (HCC) (E11.40) - Blood glucose levels stable, ranging from 100-150 mg/dL. - Continue current medication regimen. - Advised patient to continue regular blood glucose monitoring. 4. Acute left-sided low back pain without sciatica (M54.50) 5. Lumbar spondylosis (M47.816) - Acute left-sided low back pain without sciatica, likely musculoskeletal in origin. - Continue tramadol as prescribed by PCP urine toxicology ordered for the lab - Advised use of heat, ice, topical agents (e.g., Voltaren gel), massage, and stretching for symptom relief. 6. Chronic idiopathic urticaria (L50.1) 7. Long-term use of Plaquenil (Z79.899) - Chronic idiopathic urticaria well-controlled with Plaquenil. - Continue Plaquenil as prescribed. - Advised patient to schedule annual eye exam and request that visit notes be sent to our office. 8. Essential hypertension, benign (I10) - Blood pressure readings elevated at home (150/70-90 mmHg); in-office BP 136/60 mmHg. - Continue metoprolol 50 mg daily. - Advised patient to maintain home blood pressure log. Daxa Wing APRN.DOUBLE CUTTER Recording using Keenjar software for draft documentation of the visit was discussed with the patient/authorized financial services sales representative; all questions welcomed and answered. Patient/authorized financial services sales representative agreed to proceed documented in this encounter [facility] 04-23-2025 Telephone encount er Note O Received 04/23/2025 from [facility]. Placed in provider's inbox for review. [facility] [place] [facility].9 [facility] 04-23-2025 Miscellaneous Notes Formattin g of this note might be different from the original. O Received 04/23/2025 from [facility]. Placed in provider's inbox for review. Route to [place] [facility] 04/23/2025 16.9 documented in this encounter [facility] 04-19-2025 Progress note [facility] 04-19-2025 Discharge summary [facility] 04-19-2025 Discharge summary [facility] 04-19-2025 Note [facility] Medical Records Department [address] [place] [address] Discharge Summary 04/19/25 1437 MR#: [id number] Acct: [id number] Name: CARMELLAASCENCION Fay Rep #: [id number] : 1950 74 From: Margarita Harris MD PCP: Dr. Mike Solorzano MD Status:ADM IN Location: [place] [id number] Providers Date of Admission: 04/15/25 Date of Discharge: 04/19/25 Primary Care Physician: Dr. Mike Solorzano MD Consultations 04/15/25 20:15 Consult: Infectious Disease Routine Consulting Provider: Alex Gonzales Reason for Consult: fever of unknown origin up to 104 EMERGENT Consult: No MD Notified: Yes Date Notified: 04/16/25 Time Notified: 06:57 Method of Notification: Text Reason For Visit: HIGH FEVER, METABOLIC ENCEPHALOPATHY Diagnosis Discharge Diagnosis (1) MRSA bacteremia: Status: Acute Code(s): R78.81 - Bacteremia; B95.62 - Methicillin resistant Staphylococcus aureus infection as the cause of diseases classified elsewhere (2) Change in mental status: Status: Acute Code(s): R41.82 - Altered mental status, unspecified (3) Fever of unknown origin: Status: Acute Code(s): R50.9 - Fever, unspecified Plan #MRSA bacteremia * Admitted with a complaint of fever of unknown origin as well as confusion. CT chest abdomen and pelvis did not show any evidence of any infection. * Started on IV vancomycin and Zosyn. * Blood cultures came back positive for MRSA. PCR showing MRSA. * 2D echo showed RVSP of 40 mmHg with EF of 50% and normal left ventricular size with mild to moderate tricuspid valve insufficiency and no regional wall motion abnormalities noted. * ID on board. * had ZAINAB on 04/18/2025 which was negative for any evidence of vegetation. * repeat blood cultures pending. ID on board. * #Strokelike symptoms * Developed dysarthria during this admission. CT of the brain showed no evidence of stroke. * Monitor NIH stroke scale. * on PO aspirin and high intensity statin * MRI of the brain was negative for any evidence of a stroke. * #Pancytopenia: WBC today is up to 3.6 today, with Hb of 11.4 and platelets up to 109. It is improving. Will monitor closely. Pancytopenia may be due to the acute illness and bacteremia. #Type 2 diabetes mellitus: on ISS. 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 stable #LIAN: on CPAP qhs #Chronic back pain: has a spinal stimulator in situ. Follow with pain management on outpatient basis. DVT prophylaxis: SCDs o/a of thrombocytonepnia Medications at Discharge Home Medications aspirin 81 mg chewable tablet 81 mg PO DAILY heart health 11/21/16 metformin 500 mg tablet 1,000 mg PO BIDCM diabetes 11/21/16 tamsulosin 0.4 mg capsule 0.4 mg PO QHS BPH 11/21/16 gabapentin 400 mg capsule 400 mg PO TID 02/28/20 hydroxychloroquine 200 mg tablet 200 mg PO DAILY 02/28/20 tramadol 50 mg tablet 50 mg PO Q6H PRN PRN Pain Or Fever 05/29/20 multivitamin 1 tab PO DAILY Supplement 06/09/20 celecoxib 200 mg capsule (Celebrex) 200 mg PO BID 06/27/20 atorvastatin 20 mg tablet 20 mg PO QHS 12/22/20 metoprolol succinate 50 mg tablet,extended release 24 hr 50 mg PO QDAY 05/31/24 metoprolol succinate 100 mg tablet,extended release 24 hr 50 mg PO DAILY 04/15/25 vancomycin 1,000 mg intravenous injection 1,000 mg IV Q12H 25 days #50 ea 04/18/25 Hospital Course Operations None Procedures 2-D Echocardiogram and Transesophageal Echo Summary of Care Provided Minutes Spent on Discharge: 45 Hospital Course: Patient is a 74-year-old male with extensive past medical history as outlined including mechanical aortic valve replacement who was admitted through the ED on 04/15/2025 with a complaint of confusion, shakes and sweats which started the night before admission. He had associated confusion. In the ED he was febrile and tachycardic and he was breathing at 18 with pulse ox of 95% on room air. CBC showed WBC of 3.1 with hemoglobin of 12.6 and platelets of 100. Chemistry essentially unremarkable urinalysis did not show any evidence of UTI. Chest x-ray showed no acute cardiopulmonary pathology. Lactic acid was 1.6. Blood and urine cultures were ordered and he was started on IV vancomycin and Zosyn. CT of the chest abdomen and pelvis showed only some inflammatory changes in the right lower lobe but no other acute pathology. He was therefore admitted to be managed for fever of unknown origin. ID was consulted. Stroke alert was called during the admission as in the evening of the day of admission he was found to be dysarthric and more confused. CT of the brain showed no evidence of stroke and MRI of the brain also showed no evidence of stroke. CTA of the head and neck showed no hemodynamically significant stenosis. Blood cultures came back positive for MRSA. 2D echo (more content not included)... [facility] 04-19-2025 Hospital Discharge instructions Additional Instructions Date of Discharge: 04/19/25 [facility] Work Phone: 04-19-2025 Progress note Note Date/Time April 19, 2025 3:25pm [facility] Medical Records Department [address] [place] [address] Progress Note 04/19/25 1021 MR#: [id number] Acct: [id number] Name: ASCENICON WEIR Rep #:[id number] : 1950 74 From: Margarita Harris MD PCP: Dr. Mike Solorzano MD Status:ADM IN Location: [place] [address] Subjective Subjective Patient seen and examined with his nurse by his bedside. He had no active complaints. Review of systems is otherwise negative. He has remained hemodynamically stable. Repeat blood cultures are pending. Objective Data Objective Data Vital Signs: Vital Signs Temp Pulse Resp BP Pulse Ox O2 Del Method O2 Flow Rate 98.4 F 76 16 136/61 H 95 Room Air 2 04/19/25 10:07 04/19/25 10:07 04/19/25 10:07 04/19/25 10:07 04/19/25 10:07 04/19/25 10:07 04/17/25 00:03 Oxygen Flow Rate (L/min) 2 Oxygen Delivery Method Room Air Weight: 185 lb 13.595 oz Body Mass Index (BMI) 29.9 Intake & Output: Intake and Output for Last 24 Hours 04/17/25 04/18/25 04/19/25 23:59 23:59 23:59 Intake Total 1802.42 / 1802.42 540 / 540 0 / 0 Output Total 3650 / 5400 3300 / 4325 2225 / 2225 Balance -1847.58 / -3597.58 -2760 / -3785 -2225 / -2225 Lab / Micro Data 04/19/25 04:57 04/19/25 04:57 Labs: Laboratory Results - last 24 hr 04/18/25 11:44: POC Glucose 259 H 04/18/25 20:40: Vancomycin Trough 12.3 04/18/25 21:51: POC Glucose 260 H 04/19/25 04:57: WBC 3.6 L, RBC 3.60 L, Hgb 11.4 L, Hct 31.5 L, MCV 87.5, MCH 31.7, MCHC 36.2 H, RDW Std Deviation 40.7, RDW Coeff of Liang 12.7, Plt Count 109 L, MPV 9.4, Immature Gran % (Auto) 0.300, Neut % (Auto) 44.8 L, Lymph % (Auto) 30.1, [place] % (Auto) 17.7 H, Eos % (Auto) 6.5 H, Baso % (Auto) 0.6, Absolute Neuts (auto) 1.6 L, Absolute Lymphs (auto) 1.07, Nucleated RBC % 0, Sodium 137, Potassium 3.9, Chloride 102, Carbon Dioxide 23.6, Anion Gap 12, BUN 10, Creatinine 0.82, Estim Creat Clear Calc 78.05, Est GFR (MDRD) Non-Af 91, BUN/Creatinine Ratio 12.7, Glucose 238 H, Calcium 9.0 04/19/25 05:42: POC Glucose 234 H Micro: Microbiology 04/16/25 10:50 Blood Culture (Wb) - Right Hand Blood Culture - Preliminary No growth in 48 hours. 04/15/25 14:50 Blood Culture (Wb) - Anticubital Left Blood Culture - Final Staphylococcus aureus 04/15/25 14:36 Blood Culture (Wb) - Anticubital Right Bacteria Detection (PCR) - Final Meth. resistant Staph. aureus mecA Resistance Marker 04/15/25 14:36 Blood Culture (Wb) - Anticubital Right Blood Culture - Final Meth. resistant Staph. aureus 04/15/25 15:05 Urine, Catheterized Urine Culture - Final Culture exhibits no growth. 04/15/25 22:00 Mucosa - Nasopharyngeal Respiratory Panel (PCR) - Final 04/15/25 15:05 Mucosa - Nose SARS-CoV-2, Influenza & RSV (PCR) - Final Physical Exam Const alert, oriented x3 and no apparent distress General Appearance: cooperative Orientation / Consciousness: confused HEENT normocephalic, head/scalp atraumatic, moist oral mucous membranes, oropharynx normal and gingiva normal Eyes PERRL and EOMs intact bilaterally Neck no lymphadenopathy and supple Lymph Lymphatic: no lymphedema noted Resp normal respiratory effort, normal air movement, no use of accessory muscles and clear to auscultation bilaterally Cardio regular rate, regular rhythm, S1 normal heart sound, S2 normal heart sound and no murmurs GI normal to inspection, nondistended, normoactive bowel sounds, soft to palpation and non-tender Extremity normal to inspection, normal capillary refill, no clubbing, cyanosis or edema and no calf tenderness General Extremity: no tenderness to palpation of joints or extremities Skin General Skin Exam: no breakdown Neuro CN's II-XII intact bilaterally, moves all extremities, no focal motor deficits and no sensory deficits noted Sensorium / Orientation: alert, oriented to person and oriented to place Motor Exam: general weakness Psych thought process normal and cooperative Appearance: appropriate Assessment & Plan Assessment/Plan (1) MRSA bacteremia: (2) Change in mental status: (3) Fever of unknown origin: PLAN: Plan #MRSA bacteremia * Admitted with a complaint of fever of unknown origin as well as confusion. CT chest abdomen and pelvis did not show any evidence of any infection. * Started on IV vancomycin and Zosyn. * Blood cultures came back positive for MRSA. PCR showing MRSA. * 2D echo showed RVSP of 40 mmHg with EF of 50% and normal left ventricular size with mild to moderate tricuspid valve insufficiency and no regional wall motion abnormalities noted. * ID on board. * had ZAINAB on 04/18/2025 which was negative for any evidence of vegetation. * repeat blood cultures pending. ID on board. * #Strokelike symptoms * Developed dysarthria during this admission. CT of the brain showed no evidence of stroke. * Monitor NIH stroke scale. * on PO aspirin and high intensity statin * MRI of the brain was negative for any evidence of a stroke. * #Pancytopenia: WBC today is up to 3.6 today, with Hb of 11.4 and platelets up to109. It is improving. Will monitor closely. Pancytopenia may be due to the acuteillness and bacteremia. #Type 2 diabetes mellitus: on ISS. 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 stable #LIAN: on CPAP qhs #Chronic back pain: has a spinal stimulator in situ. Follow with pain managementon outpatient basis. DVT prophylaxis: SCDs o/a of thrombocytonepnia Charges/Coding Visit Charges Inpatient E&M: 16559 Subs Hosp L2 04/19/25 1525 <Electronically signed by Margarita Harris MD> Margarita Harris MD Cosigner Signature (if applicable): CC: ~ Signed [facility] Work Phone: 1(271) 847-552808-22-2025 Progress note Author Alex Gonzales [facility] Note Date/Time April 19, 2025 10 :14am [facility] Medical Records Department [address] [place] [address] Progress Note - Infect Disease 04/19/25 1013 MR#: [id number] Acct: [id number] Name: ASCENCION WEIR Rep #:[id number] : 1950 74 From: Alex powers MD PCP: Dr. Mike Solorzano MD Status:ADM IN Location: [place] [address] Physical Exam Narrative Feeling fine, no fever, no n/v/d. Const alert and no apparent distress General Appearance: cooperative Resp normal air movement and clear to auscultation bilaterally Cardio regular rate and regular rhythm GI soft to palpation, non-tender and non-distended Skin No no rashes or lesions noted ID ID: Route of nutrition/ use of supplements: [] Nutritional Intake: [] IV Site: [] Guzman Catheter: [] Assessment & Plan Assessment/Plan (1) MRSA bacteremia: PLAN: MRSA bacteremia, unclear source. No veg seen on ZAINAB, so far repeat bcx since 04/16/25. Cont vanc. Bcx remain neg, will order picc and 4 weeks iv vanc, stop date 05/14/25 with weekly labs. ID followup in 2 weeks Will follow (2) SIRS (systemic inflammatory response syndrome): (3) History of aortic valve replacement: 04/19/25 1014 <Electronically signed by Alex Gonzales MD> Cosigner Signature (if applicable): CC: ~ Signed [facility] Work Phone: 1(927) 547-781708-22-2025 Progress note [facility] Medical Records Department [address] [place] [address] Progress Note - Infect Disease 04/19/25 1013 MR#: [id number] Acct: [id number] Name: ASCENCION WEIR Rep #:[id number] : 1950 74 From: Alex powers MD PCP: Dr. Mike Solorzano MD Status:ADM IN Location: [place] [address] Physical Exam Narrative Feeling fine, no fever, no n/v/d. Const alert and no apparent distress General Appearance: cooperative Resp normal air movement and clear to auscultation bilaterally Cardio regular rate and regular rhythm GI soft to palpation, non-tender and non-distended Skin No no rashes or lesions noted ID ID: Route of nutrition/ use of supplements: [] Nutritional Intake: [] IV Site: [] Guzman Catheter: [] Assessment & Plan Assessment/Plan (1) MRSA bacteremia: PLAN: MRSA bacteremia, unclear source. No veg seen on ZAINAB, so far repeat bcx since 04/16/25. Cont vanc. Bcx remain neg, will order picc and 4 weeks iv vanc, stop date 05/14/25 with weekly labs. ID followup in 2 weeks Will follow (2) SIRS (systemic inflammatory response syndrome): (3) History of aortic valve replacement: 04/19/25 1014 Cosigner Signature (if applicable): CC: ~ Signed [facility]2025 Consult note Author Tj Dominguez [facility] Note Date/Time April 18, 2025 9: 32pm [facility] Medical Records Department [address] [place] [place] [address] Pharmacokinetic/Renal -Consult 04/18/25 2131 MR#: [id number] Acct: [id number] Name: ASCENCION WEIR Rep #:[id number] : 1950 74 From: Tj Pizarro od PCP: Dr. Mike Solorzano MD Status:ADM IN Y Location: [place] [address] Consult Antibiotic Management Pharmacy has been consulted to manage selected antibiotic: Vancomycin Type of Intervention Type of Consult: Follow-up Labs Labs: Sodium 136 mmol/L (133-145) 04/18/25 05:13 Potassium 3.9 mmol/L (3.3-5.1) 04/18/25 05:13 Chloride 103 mmol/L (98-108) 04/18/25 05:13 Carbon Dioxide 22.2 mmol/L (21.0-32.0) 04/18/25 05:13 Anion Gap 11 (5-15) 04/18/25 05:13 BUN 9 mg/dL (4-19) 04/18/25 05:13 Creatinine 0.76 mg/dL (0.70-1.20) 04/18/25 05:13 Est GFR (MDRD) Non-Af 93 (>60) 04/18/25 05:13 BUN/Creatinine Ratio 12.1 RATIO (10-20) 04/18/25 05:13 Glucose 180 mg/dL (70-99) H 04/18/25 05:13 Vancomycin Trough 12.3 ug/mL (5.0-15.0) 04/18/25 20:40 Microbiology Microbiology: Microbiology 04/16/25 10:50 Blood Culture (Wb) - Right Hand Blood Culture - Preliminary No growth in 48 hours. 04/15/25 14:50 Blood Culture (Wb) - Anticubital Left Blood Culture - Final Staphylococcus aureus 04/15/25 14:36 Blood Culture (Wb) - Anticubital Right Bacteria Detection (PCR) - Final Meth. resistant Staph. aureus mecA Resistance Marker 04/15/25 14:36 Blood Culture (Wb) - Anticubital Right Blood Culture - Final Meth. resistant Staph. aureus 04/15/25 15:05 Urine, Catheterized Urine Culture - Final Culture exhibits no growth. 04/15/25 22:00 Mucosa - Nasopharyngeal Respiratory Panel (PCR) - Final 04/15/25 15:05 Mucosa - Nose SARS-CoV-2, Influenza & RSV (PCR) - Final Goal Trough Goal Trough: 10-15 mcg/mL Pharmacy Plan for Drug Dosing Pharmacy Plan for Drug Dosing: Pharmacy Service will continue to monitor and adjust dosing as required. TROUGH 12.3 @ 11 HOURS. NO CHANGES, FOLLOW UP TROUGH IN 2 DAYS Follow-Up Labs Follow-Up Labs: Trough: Vancomycin Date/Time Labs Ordered Labs to be done on [date and time ordered]: 04/20 @ 202904/18/252131 <Electronically signed by Tj hernandez> Date _ Tj Dominguez Cosigner Signature (if applicable): Date CC: ~ Signed [facility] Work Phone: 1(689) 947-630408-21-2025 Consult note [facility] Medical Records Department [address] [place] [address] Pharmacokinetic/Renal -Consult 04/18/252130 MR#: [id number] Acct: [id number] Name: ASCENCION WEIR Rep #:[id number] : 1950 74 From: Tj Pizarro od PCP: Dr. Mike Solorzano MD Status:ADM IN Location: [place] [id number]- Consult Antibiotic Management Pharmacy has been consulted to manage selected antibiotic: Vancomycin Type of Intervention Type of Consult: Follow-up Labs Labs: Sodium 136 mmol/L (133-145) 04/18/25 05:13 Potassium 3.9 mmol/L (3.3-5.1) 04/18/25 05:13 Chloride 103 mmol/L (98-108) 04/18/25 05:13 Carbon Dioxide 22.2 mmol/L (21.0-32.0) 04/18/25 05:13 Anion Gap 11 (5-15) 04/18/25 05:13 BUN 9 mg/dL (4-19) 04/18/25 05:13 Creatinine 0.76 mg/dL (0.70-1.20) 04/18/25 05:13 Est GFR (MDRD) Non-Af 93 (>60) 04/18/25 05:13 BUN/Creatinine Ratio 12.1 RATIO (10-20) 04/18/25 05:13 Glucose 180 mg/dL (70-99) H 04/18/25 05:13 Vancomycin Trough 12.3 ug/mL (5.0-15.0) 04/18/25 20:40 Microbiology Microbiology: Microbiology 04/16/25 10:50 Blood Culture (Wb) - Right Hand Blood Culture - Preliminary No growth in 48 hours. 04/15/25 14:50 Blood Culture (Wb) - Anticubital Left Blood Culture - Final Staphylococcus aureus 04/15/25 14:36 Blood Culture (Wb) - Anticubital Right Bacteria Detection (PCR) - Final Meth. resistant Staph. aureus mecA Resistance Marker 04/15/25 14:36 Blood Culture (Wb) - Anticubital Right Blood Culture - Final Meth. resistant Staph. aureus 04/15/25 15:05 Urine, Catheterized Urine Culture - Final Culture exhibits no growth. 04/15/25 22:00 Mucosa - Nasopharyngeal Respiratory Panel (PCR) - Final 04/15/25 15:05 Mucosa - Nose SARS-CoV-2, Influenza & RSV (PCR) - Final Goal Trough Goal Trough: 10-15 mcg/mL Pharmacy Plan for Drug Dosing Pharmacy Plan for Drug Dosing: Pharmacy Service will continue to monitor and adjust dosing as required. TROUGH 12.3 @ 11 HOURS. NO CHANGES, FOLLOW UP TROUGH IN 2 DAYS Follow-Up Labs Follow-Up Labs: Trough: Vancomycin Date/Time Labs Ordered Labs to be done on [date and time ordered]: 04/20 @ 202904/18/252131 lood> Date _ Tj Banks Signature (if applicable): Date CC: ~ Signed [facility]2025 Progress note Author [facility] Note Date/Time April 18, 2025 4: 41pm [facility] Medical Records Department [address] [place] [address] Progress Note 04/18/25 1127 MR#: [id number] Acct: [id number] Name: ASCENCION WEIR Rep #:[id number] : 1950 74 From: Margarita Harris MD PCP: Dr. Mike Solorzano MD Status:ADM IN Location: [place] [address] Subjective Subjective Patient seen and examined. He had no complaints this morning and had an uneventful night. Review of systems is otherwise negative. He has remained hemodynamically stable. ZAINAB yesterday was negative for any evidence of vegetation. Objective Data Objective Data Vital Signs: Vital Signs Temp Pulse Resp BP Pulse Ox O2 Del Method O2 Flow Rate 98.4 F 73 18 139/54 H 95 Room Air 2 04/18/25 09:53 04/18/25 09:56 04/18/25 09:53 04/18/25 09:53 04/18/25 09:53 04/18/25 09:57 04/17/25 00:03 Oxygen Flow Rate (L/min) 2 Oxygen Delivery Method Room Air Weight: 185 lb 13.595 oz Body Mass Index (BMI) 29.9 Intake & Output: Intake and Output for Last 24 Hours 04/16/25 04/17/25 04/18/25 23:59 23:59 23:59 Intake Total 3663.33 / 3663.33 1802.42 / 1802.42 270 / 270 Output Total 3500 / 3500 3650 / 5400 2700 / 2700 Balance 163.33 / 163.33 -1847.58 / -3597.58 -2430 / -2430 Lab / Micro Data 04/18/25 05:13 04/18/25 05:13 Labs: Laboratory Results - last 24 hr 04/17/25 11:52: POC Glucose 167 H 04/17/25 16:26: POC Glucose 169 H 04/17/25 21:28: POC Glucose 165 H 04/18/25 05:13: WBC 2.8 L, RBC 3.55 L, Hgb 11.0 L, Hct 31.0 L, MCV 87.3, MCH 31.0, MCHC 35.5, RDW Std Deviation 40.5, RDW Coeff of Liang 12.5, Plt Count 94 L, MPV 9.8, Immature Gran % (Auto) 0.400, Neut % (Auto) 48.3, Lymph % (Auto) 25.8, [place] % (Auto) 20.4 H, Eos % (Auto) 4.7, Baso % (Auto) 0.4, Absolute Neuts (auto)1.3 L, Absolute Lymphs (auto) 0.71 L, Nucleated RBC % 0, Platelet Estimate SLT DEC, Anisocytosis 1+, Sodium 136, Potassium 3.9, Chloride 103, Carbon Dioxide 22.2, Anion Gap 11, BUN 9, Creatinine 0.76, Estim Creat Clear Calc 80.00, Est GFR (MDRD) Non-Af 93, BUN/Creatinine Ratio 12.1, Glucose 180 H, Calcium 8.5 04/18/25 06:24: POC Glucose 178 H Micro: Microbiology 04/15/25 14:50 Blood Culture (Wb) - Anticubital Left Blood Culture - Final Staphylococcus aureus 04/15/25 14:36 Blood Culture (Wb) - Anticubital Right Bacteria Detection (PCR) - Final Meth. resistant Staph. aureus mecA Resistance Marker 04/15/25 14:36 Blood Culture (Wb) - Anticubital Right Blood Culture - Final Meth. resistant Staph. aureus 04/15/25 15:05 Urine, Catheterized Urine Culture - Final Culture exhibits no growth. 04/15/25 22:00 Mucosa - Nasopharyngeal Respiratory Panel (PCR) - Final 04/15/25 15:05 Mucosa - Nose SARS-CoV-2, Influenza & RSV (PCR) - Final Physical Exam Const alert, oriented x3 and no apparent distress General Appearance: cooperative Orientation / Consciousness: confused HEENT normocephalic, head/scalp atraumatic, moist oral mucous membranes, oropharynx normal and gingiva normal Eyes PERRL and EOMs intact bilaterally Neck no lymphadenopathy and supple Lymph Lymphatic: no lymphedema noted Resp normal respiratory effort, normal air movement, no use of accessory muscles and clear to auscultation bilaterally Cardio regular rate, regular rhythm, S1 normal heart sound, S2 normal heart sound and no murmurs GI normal to inspection, nondistended, normoactive bowel sounds, soft to palpation and non-tender Extremity normal to inspection, normal capillary refill, no clubbing, cyanosis or edema and no calf tenderness General Extremity: no tenderness to palpation of joints or extremities Skin General Skin Exam: no breakdown Neuro CN's II-XII intact bilaterally, moves all extremities, no focal motor deficits and no sensory deficits noted Sensorium / Orientation: alert, oriented to person and oriented to place Motor Exam: general weakness Psych thought process normal and cooperative Appearance: appropriate Assessment & Plan Assessment/Plan (1) MRSA bacteremia: (2) Change in mental status: (3) Fever of unknown origin: PLAN: Plan #MRSA bacteremia * Admitted with a complaint of fever of unknown origin as well as confusion. CT chest abdomen and pelvis did not show any evidence of any infection. * Started on IV vancomycin and Zosyn. * Blood cultures came back positive for MRSA. PCR showing MRSA. * 2D echo showed RVSP of 40 mmHg with EF of 50% and normal left ventricular size with mild to moderate tricuspid valve insufficiency and no regional wall motion abnormalities noted. * ID on board. * had ZAINAB on 04/18/2025 which was negative for any evidence of vegetation. * repeat blood cultures pending. Cardiology on board. * #Strokelike symptoms * Developed dysarthria overnight. CT of the brain showed no evidence of stroke. * Monitor NIH stroke scale. * on PO aspirin and high intensity statin * MRI of the brain was negative for any evidence of a stroke. * #Pancytopenia: WBC today is up to 2.8, with Hb of 11 and platelets up to 94, up from 81 yesterday. Pancytopenia may be due to the acute illness and bacteremia. #Type 2 diabetes mellitus: on ISS. 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 stable #LIAN: on CPAP qhs #Chronic back pain: has a spinal stimulator in situ. Follow with pain managementon outpatient basis. DVT prophylaxis: SCDs o/a of thrombocytonepnia Charges/Coding Visit Charges Inpatient E&M: 90273 Subs Hosp L2 04/18/25 1641 <Electronically signed by Margarita Harris MD> Margarita Harris MD Cosigner Signature (if applicable): CC: ~ Signed [facility] Work Phone: 1(256) 478-241408-21-2025 Progress note [facility] Medical Records Department [address] [place] [address] Progress Note 04/18/25 1127 MR#: [id number] Acct: [id number] Name: ASCENCION WEIR Rep #:[id number] : 1950 74 From: Margarita Harris MD PCP: Dr. Mike Solorzano MD Status:ADM IN Location: [place] [address] Subjective Subjective Patient seen and examined. He had no complaints this morning and had an uneventful night. Review ofsystems is otherwise negative. He has remained hemodynamically stable. ZAINAB yesterday was negative for any evidence of vegetation. Objective Data Objective Data Vital Signs: Vital Signs Temp Pulse Resp BP Pulse Ox O2 Del Method O2 Flow Rate 98.4 F 73 18 139/54 H 95 Room Air 2 04/18/25 09:53 04/18/25 09:56 04/18/25 09:53 04/18/25 09:53 04/18/25 09:53 04/18/25 09:57 04/17/25 00:03 Oxygen Flow Rate (L/min) 2 Oxygen Delivery Method Room Air Weight: 185 lb 13.595 oz Body Mass Index (BMI) 29.9 Intake & Output: Intake and Output for Last 24 Hours 04/16/25 04/17/25 04/18/25 23:59 23:59 23:59 Intake Total 3663.33 / 3663.33 1802.42 / 1802.42 270 / 270 Output Total 3500 / 3500 3650 / 5400 2700 / 2700 Balance 163.33 / 163.33 -1847.58 / -3597.58 -2430 / -2430 Lab / Micro Data 04/18/25 05:13 04/18/25 05:13 Labs: Laboratory Results - last 24 hr 04/17/25 11:52: POC Glucose 167 H 04/17/25 16:26: POC Glucose 169 H 04/17/25 21:28: POC Glucose 165 H 04/18/25 05:13: WBC 2.8 L, RBC 3.55 L, Hgb 11.0 L, Hct 31.0 L, MCV 87.3, MCH 31.0, MCHC 35.5, RDW Std Deviation 40.5, RDW Coeff of Liang 12.5, Plt Count 94 L, MPV 9.8, Immature Gran % (Auto) 0.400, Neut % (Auto) 48.3, Lymph % (Auto) 25.8, [place] % (Auto) 20.4 H, Eos % (Auto) 4.7, Baso % (Auto) 0.4, Absolute Neuts (auto)1.3 L, Absolute Lymphs (auto) 0.71 L, Nucleated RBC % 0, Platelet Estimate SLT DEC, Anisocytosis 1+, Sodium 136, Potassium 3.9, Chloride 103, Carbon Dioxide 22.2, Anion Gap 11, BUN 9, Creatinine 0.76, Estim Creat Clear Calc 80.00, Est GFR (MDRD) Non-Af 93, BUN/Creatinine Ratio 12.1, Glucose 180 H, Calcium 8.5 04/18/25 06:24: POC Glucose 178 H Micro: Microbiology 04/15/25 14:50 Blood Culture (Wb) - Anticubital Left Blood Culture - Final Staphylococcus aureus 04/15/25 14:36 Blood Culture (Wb) - Anticubital Right Bacteria Detection (PCR) - Final Meth. resistant Staph. aureus mecA Resistance Marker 04/15/25 14:36 Blood Culture (Wb) - Anticubital Right Blood Culture - Final Meth. resistant Staph. aureus 04/15/25 15:05 Urine, Catheterized Urine Culture - Final Culture exhibits no growth. 04/15/25 22:00 Mucosa - Nasopharyngeal Respiratory Panel (PCR) - Final 04/15/25 15:05 Mucosa - Nose SARS-CoV-2, Influenza & RSV (PCR) - Final Physical Exam Const alert, oriented x3 and no apparent distress General Appearance: cooperative Orientation / Consciousness: confused HEENT normocephalic, head/scalp atraumatic, moist oral mucous membranes, oropharynx normal and gingiva normal Eyes PERRL and EOMs intact bilaterally Neck no lymphadenopathy and supple Lymph Lymphatic: no lymphedema noted Resp normal respiratory effort, normal air movement, no use of accessory muscles and clear to auscultation bilaterally Cardio regular rate, regular rhythm, S1 normal heart sound, S2 normal heart sound and no murmurs GI normal to inspection, nondistended, normoactive bowel sounds, soft to palpation and non-tender Extremity normal to inspection, normal capillary refill, no clubbing, cyanosis or edema and no calf tenderness General Extremity: no tenderness to palpation of joints or extremities Skin General Skin Exam: no breakdown Neuro CN's II-XII intact bilaterally, moves all extremities, no focal motor deficits and no sensory deficits noted Sensorium / Orientation: alert, oriented to person and oriented to place Motor Exam: general weakness Psych thought process normal and cooperative Appearance: appropriate Assessment & Plan Assessment/Plan (1) MRSA bacteremia: (2) Change in mental status: (3) Fever of unknown origin: PLAN: Plan #MRSA bacteremia * Admitted with a complaint of fever of unknown origin as well as confusion. CT chest abdomen and pelvis did not show any evidence of any infection. * Started on IV vancomycin and Zosyn. * Blood cultures came back positive for MRSA. PCR showing MRSA. * 2D echo showed RVSP of 40 mmHg with EF of 50% and normal left ventricular size with mild to moderate tricuspid valve insufficiency and no regional wall motion abnormalities noted. * ID on board. * had ZAINAB on 04/18/2025 which was negative for any evidence of vegetation. * repeat blood cultures pending. Cardiology on board. * #Strokelike symptoms * Developed dysarthria overnight. CT of the brain showed no evidence of stroke. * Monitor NIH stroke scale. * on PO aspirin and high intensity statin * MRI of the brain was negative for any evidence of a stroke. * #Pancytopenia: WBC today is up to 2.8, with Hb of 11 and platelets up to 94, up from 81 yesterday. Pancytopenia may be due to the acute illness and bacteremia. #Type 2 diabetes mellitus: on ISS. 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 stable #LIAN: on CPAP qhs #Chronic back pain: has a spinal stimulator in situ. Follow with pain managementon outpatient basis. DVT prophylaxis: SCDs o/a of thrombocytonepnia Charges/Coding Visit Charges Inpatient E&M: 68604 Subs Hosp L2 04/18/25 1641 Margarita Harris MD Cosigner Signature (if applicable): CC: ~ Signed [facility]2025 Progress note Author Alex Gonzales [facility] Note Date/Time April 18, 2025 10 :31am [facility] Medical Records Department [address] [place] [address] Progress Note - Infect Disease 04/18/25 1028 MR#: [id number] Acct: [id number] Name: ASCENCION WEIR Rep #:[id number] : 1950 74 From: Alex powers MD PCP: Dr. Mike Solorzano MD Status:ADM IN Location: [place] [address] Physical Exam Narrative Feeling better, no fever, no new pain, no n/v/d. Const alert and no apparent distress General Appearance: cooperative Resp normal air movement and clear to auscultation bilaterally Cardio regular rate and regular rhythm GI soft to palpation, non-tender and non-distended Skin no rashes or lesions noted ID ID: Route of nutrition/ use of supplements: [] Nutritional Intake: [] IV Site: [] Guzman Catheter: [] Assessment & Plan Assessment/Plan (1) MRSA bacteremia: PLAN: MRSA bacteremia, unclear source. No veg seen on ZAINAB, so far repeat bcx since 04/16/25. Cont vanc. If bcx remain neg tomorrow, plan is for picc and 4 weeks iv vanc, stop date 05/14/25 with weekly labs. Will follow (2) SIRS (systemic inflammatory response syndrome): (3) History of aortic valve replacement: 04/18/25 1031 <Electronically signed by Alex Gonzales MD> Cosigner Signature (if applicable): CC: ~ Signed [facility] Work Phone: 1(677) 648-973108-21-2025 Progress note [facility] Medical Records Department [address] [place] [address] Progress Note - Infect Disease 04/18/25 1028 MR#: [id number] Acct: [id number] Name: ASCENCION WEIR Rep #:[id number] : 1950 74 From: Alex powers MD PCP: Dr. Mike Solorzano MD Status:ADM IN Location: [place] [address] Physical Exam Narrative Feeling better, no fever, no new pain, no n/v/d. Const alert and no apparent distress General Appearance: cooperative Resp normal air movement and clear to auscultation bilaterally Cardio regular rate and regular rhythm GI soft to palpation, non-tender and non-distended Skin no rashes or lesions noted ID ID: Route of nutrition/ use of supplements: [] Nutritional Intake: [] IV Site: [] Guzman Catheter: [] Assessment & Plan Assessment/Plan (1) MRSA bacteremia: PLAN: MRSA bacteremia, unclear source. No veg seen on ZAINAB, so far repeat bcx since 04/16/25. Cont vanc. If bcx remain neg tomorrow, plan is for picc and 4 weeks iv vanc, stop date 05/14/25 with weekly labs. Will follow (2) SIRS (systemic inflammatory response syndrome): (3) History of aortic valve replacement: 04/18/25 1031 Cosigner Signature (if applicable): CC: ~ Signed [facility]08-20-2025 Consult note Author Howard Koroma [facility] Note Date/Time April 17, 2025 3: 09pm [facility] Medical Records Department [address] [place] [address] Pharmacokinetic/Renal -Consult 04/17/25823 MR#: [id number] Acct: [id number] Name: ASCENCION WEIR Rep #:[id number] : 1950 74 From: Howard lopez PCP: Dr. Mike Solorzano MD Status:ADM IN Location: [place] [address] Consult Antibiotic Management Pharmacy has been consulted to manage selected antibiotic: Vancomycin Type of Intervention Type of Consult: Follow-up Suspected Infection Suspected Infection: Sepsis Prior Doses of Antibiotics Prior Doses of Antibiotics Received/Current Regimen: X1 LD X2 MD (750 mg Q12H) Labs Labs: Sodium 134 mmol/L (133-145) 04/17/25 06:20 Potassium 4.2 mmol/L (3.3-5.1) 04/17/25 06:20 Chloride 102 mmol/L (98-108) 04/17/25 06:20 Carbon Dioxide 23.3 mmol/L (21.0-32.0) 04/17/25 06:20 Anion Gap 9 (5-15) 04/17/25 06:20 BUN 11 mg/dL (4-19) 04/17/25 06:20 Creatinine 0.83 mg/dL (0.70-1.20) 04/17/25 06:20 Est GFR (MDRD) Non-Af 91 (>60) 04/17/25 06:20 BUN/Creatinine Ratio 13.2 RATIO (10-20) 04/17/25 06:20 Glucose 128 mg/dL (70-99) H 04/17/25 06:20 Vancomycin Trough 8.8 ug/mL (5.0-15.0) 04/17/25 06:20 Microbiology Microbiology: Microbiology 04/15/25 15:05 Urine, Catheterized Urine Culture - Final Culture exhibits no growth. 04/15/25 14:50 Blood Culture (Wb) - Anticubital Left Blood Culture - Preliminary Staphylococcus aureus 04/15/25 14:36 Blood Culture (Wb) - Anticubital Right Bacteria Detection (PCR) - Final Meth. resistant Staph. aureus mecA Resistance Marker 04/15/25 14:36 Blood Culture (Wb) - Anticubital Right Blood Culture - Preliminary Staphylococcus aureus 04/15/25 22:00 Mucosa - Nasopharyngeal Respiratory Panel (PCR) - Final 04/15/25 15:05 Mucosa - Nose SARS-CoV-2, Influenza & RSV (PCR) - Final Dosing Weight Weight used for dosin kg Estimated Creatinine Clearance Estimated Creatinine Clearance: 77 Goal Trough Goal Trough: 10-15 mcg/mL Pharmacy Plan for Drug Dosing Pharmacy Plan for Drug Dosing: Pharmacy Service will continue to monitor and adjust dosing as required. VANCOMYCIN LEVEL RECEIVED Current Vancomycin Dose: 750 MG Q12H Number of Doses Received: 3 (x1 LD + x2 MD) Vancomycin Level: 8.8 (low) Hours Since Last Dose: 11.5 Renal Function: SCr: 0.83, CrCl: 77 Renal Function Trend: Increasing Lab/Micro: MRSA Bacteremia Vancomycin Plan/Comments: INCREASE DOSE TO 1000 MG Q12H with first dose 04/17 @ 0900 Pending Level: 04/18/25 @ 2029 Date/Time Labs Ordered Labs to be done on [date and time ordered]: 04/18/25 @ 202904/17/25 0826 <Electronically signed by Howard Healy> Date _ Howard Koroma 04/17/25 1499 <Electronically signed by Margarita block MD> Cosigner Signature (if applicable): Date Margarita Harris MD CC: ~ Signed [facility] Work Phone: 1(535) 516-495008-20-2025 Progress note Author Margarita Harris [facility] Note Date/Time April 17, 2025 3: 09pm [facility] Medical Records Department [address] [place] [address] Progress Note 04/17/25 1004 MR#: [id number] Acct: [id number] Name: ASCENCION WEIR Rep #:[id number] : 1950 74 From: Margarita Harris MD PCP: Dr. Mike Solorzano MD Status:ADM IN Location: [place] [address] Subjective Subjective Patient seen and examined this morning with his nurse by his bedside. He had nocomplaints. He had an uneventful night. Review of systems otherwise negative. Objective Data Objective Data Vital Signs: Vital Signs Temp Pulse Resp BP Pulse Ox O2 Del Method O2 Flow Rate 98.3 F 87 18 110/76 98 Room Air 2 04/17/25 09:20 04/17/25 09:40 04/17/25 09:40 04/17/25 09:40 04/17/25 09:40 04/17/25 09:40 04/17/25 00:03 Oxygen Flow Rate (L/min) 2 Oxygen Delivery Method Room Air Weight: 185 lb 13.595 oz Body Mass Index (BMI) 29.9 Intake & Output: Intake and Output for Last 24 Hours 04/15/25 04/16/25 04/17/25 23:59 23:59 23:59 Intake Total 1430 / 1430 3663.33 / 3663.33 1016.67 / 1016.67 Output Total 1100 / 1100 3500 / 3500 1900 / 1900 Balance 330 / 330 163.33 / 163.33 -883.33 / -883.33 Lab / Micro Data 04/17/25 06:20 04/17/25 06:20 Labs: Laboratory Results - last 24 hr 04/16/25 11:52: POC Glucose 210 H 04/16/25 17:03: POC Glucose 119 H 04/16/25 21:34: POC Glucose 155 H 04/17/25 06:18: POC Glucose 125 H 04/17/25 06:20: WBC 2.4 L, RBC 3.61 L, Hgb 11.3 L, Hct 31.7 L, MCV 87.8, MCH 31.3, MCHC 35.6, RDW Std Deviation 40.7, RDW Coeff of Liang 12.7, Plt Count 81 L, MPV 9.7, Immature Gran % (Auto) 0.400, Neut % (Auto) 62.6, Lymph % (Auto) 18.3 L, [place] % (Auto) 15.7 H, Eos % (Auto) 2.6, Baso % (Auto) 0.4, Absolute Neuts (auto) 1.5 L, Absolute Lymphs (auto) 0.43 L, Nucleated RBC % 0, Platelet Estimate MOD DEC, Sodium 134, Potassium 4.2, Chloride 102, Carbon Dioxide 23.3, Anion Gap 9, BUN 11, Creatinine 0.83, Estim Creat Clear Calc 77.11, Est GFR (MDRD) Non-Af 91, BUN/Creatinine Ratio 13.2, Glucose 128 H, Calcium 8.2, Vancomycin Trough 8.8 Micro: Microbiology 04/15/25 15:05 Urine, Catheterized Urine Culture - Final Culture exhibits no growth. 04/15/25 14:50 Blood Culture (Wb) - Anticubital Left Blood Culture - Preliminary Staphylococcus aureus 04/15/25 14:36 Blood Culture (Wb) - Anticubital Right Bacteria Detection (PCR) - Final Meth. resistant Staph. aureus mecA Resistance Marker 04/15/25 14:36 Blood Culture (Wb) - Anticubital Right Blood Culture - Preliminary Staphylococcus aureus 04/15/25 22:00 Mucosa - Nasopharyngeal Respiratory Panel (PCR) - Final 04/15/25 15:05 Mucosa - Nose SARS-CoV-2, Influenza & RSV (PCR) - Final Radiography Diagnostic Testing: Radiology Impression Brain MRI 04/16/25 05:55 IMPRESSION: No acute intracranial abnormality. Reading Location: [id number] Echocardiogram 04/16/25 08:51 Interpretation Summary Right ventricular systolic pressure estimated to be 40 mmHg. Mild to moderate (1-2+) tricuspid valve insufficiency. No regional wall motion abnormalities noted. The estimated ejection fraction is 50 %. Normal LV size. There is mild biatrial dilatation. This was essentially a normal study. Ordering Physician: Alex Gonzales Performed By: Palmer Bolton RCS Transesophageal Echocardiogram 04/17/25 07:42 Interpretation Summary Normal LV size. Left ventricular systolic function is normal. The left ventricular ejection fraction is 65 %. Bubble contrast study is negative for PFO/ASD. No thrombus is detected in the left atrial appendage. Mild (1+) eccentric mitral valve insufficiency. No valvular vegetations noted. Stable appearing bioprosthetic aortic valve apparatus. Ordering Physician: Margarita Harris Performed By: Johanny Huston RDCS Physical Exam Const alert, oriented x3 and no apparent distress General Appearance: cooperative Orientation / Consciousness: confused HEENT normocephalic, head/scalp atraumatic, moist oral mucous membranes, oropharynx normal and gingiva normal Eyes PERRL and EOMs intact bilaterally Neck no lymphadenopathy and supple Lymph Lymphatic: no lymphedema noted Resp normal respiratory effort, normal air movement, no use of accessory muscles and clear to auscultation bilaterally Cardio regular rate, regular rhythm, S1 normal heart sound, S2 normal heart sound and no murmurs GI normal to inspection, nondistended, normoactive bowel sounds, soft to palpation and non-tender Extremity normal to inspection, normal capillary refill, no clubbing, cyanosis or edema and no calf tenderness General Extremity: no tenderness to palpation of joints or extremities Skin General Skin Exam: no breakdown Neuro CN's II-XII intact bilaterally, moves all extremities, no focal motor deficits and no sensory deficits noted Sensorium / Orientation: alert, oriented to person and oriented to place Speech: Negative for speech normal Motor Exam: general weakness Psych thought process normal and cooperative Appearance: appropriate Assessment & Plan Assessment/Plan (1) MRSA bacteremia: (2) Change in mental status: (3) Fever of unknown origin: PLAN: Plan #MRSA bacteremia * Admitted with a complaint of fever of unknown origin as well as confusion. CT chest abdomen and pelvis did not show any evidence of any infection. * Started on IV vancomycin and Zosyn. * Blood cultures came back positive for gram-positive cocci in clusters. PCR showing MRSA. * 2D echo showed RVSP of 40 mmHg with EF of 50% and normal left ventricular size with mild to moderate tricuspid valve insufficiency and no regional wall motion abnormalities noted. * ID on board. * had ZAINAB today which was negative for any evidence of vegetation. * #Strokelike symptoms * Developed dysarthria overnight. CT of the brain showed no evidence of stroke. * Monitor NIH stroke scale. * on PO aspirin and high intensity statin * MRI of the brain was negative for any evidence of a stroke. * #Pancytopenia: WBC today is down to 2.4, with Hb of 11.3 and platelets of 81. Platelets are down from 100 yesterday. Will dc lovenox today. Thrombocytopenia may be due to the acute illness and bacteremia. #Type 2 diabetes mellitus: on ISS. Accuchecks ACHS #Hypertension:BP meds on hold to allow for permissive hypertension. 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 stable #LIAN: on CPAP qhs #Chronic back pain: has a spinal stimulator in situ. Follow with pain managementon outpatient basis. DVT prophylaxis: lovenox; dc lovenox due to thrombocytopenia as platelets are down to 81 today. Start on SCDs. Charges/Coding Visit Charges Inpatient E&M: 00507 Subs Hosp L2 04/17/25 6919 <Electronically signed by Margarita Harris MD> Margarita Harris MD Cosigner Signature (if applicable): CC: ~ Signed [facility] Work Phone: 1(503) 515-301908-20-2025 [facility] Date/Time April 17, 2025 3: 02pm [facility] Medical Records Department [address] [place] [address] Progress Note - Infect Disease 04/17/25 1501 MR#: [id number] Acct: [id number] Name: ASCENCION WEIR Rep #:[id number] : 1950 74 From: Alex powers MD PCP: Dr. Mike Solorzano MD Status:ADM IN Location: [place] [address] Physical Exam Narrative Feeling better, no fever, had ZAINAB this AM, no n/v/d. Const alert and no apparent distress General Appearance: cooperative Resp normal air movement and clear to auscultation bilaterally Cardio regular rate and regular rhythm GI soft to palpation, non-tender and non-distended Skin no rashes or lesions noted ID ID: Route of nutrition/ use of supplements: [] Nutritional Intake: [] IV Site: [] Guzman Catheter: [] Assessment & Plan Assessment/Plan (1) MRSA bacteremia: PLAN: MRSA bacteremia, unclear source. No veg seen on ZAINAB, will repeat bcx. Cont vanc. Will follow (2) SIRS (systemic inflammatory response syndrome): (3) History of aortic valve replacement: 04/17/25 1502 <Electronically signed by Alex Gonzales MD> Cosigner Signature (if applicable): CC: ~ Signed [facility] Work Phone: 1(650) 959-676608-20-2025 Consult note [facility] Medical Records Department [address] [place] [address] Pharmacokinetic/Renal -Consult 04/17/25 0824 MR#: [id number] Acct: [id number] Name: ASCENCION WEIR Rep #:[id number] : 1950 74 From: Howard lopez PCP: Dr. Mike Solorzano MD Status:ADM IN Location: [place] [address] Consult Antibiotic Management Pharmacy has been consulted to manage selected antibiotic: Vancomycin Type of Intervention Type of Consult: Follow-up Suspected Infection Suspected Infection: Sepsis Prior Doses of Antibiotics Prior Doses of Antibiotics Received/Current Regimen: X1 LD X2 MD (750 mg Q12H) Labs Labs: Sodium 134 mmol/L (133-145) 04/17/25 06:20 Potassium 4.2 mmol/L (3.3-5.1) 04/17/25 06:20 Chloride 102 mmol/L (98-108) 04/17/25 06:20 Carbon Dioxide 23.3 mmol/L (21.0-32.0) 04/17/25 06:20 Anion Gap 9 (5-15) 04/17/25 06:20 BUN 11 mg/dL (4-19) 04/17/25 06:20 Creatinine 0.83 mg/dL (0.70-1.20) 04/17/25 06:20 Est GFR (MDRD) Non-Af 91 (>60) 04/17/25 06:20 BUN/Creatinine Ratio 13.2 RATIO (10-20) 04/17/25 06:20 Glucose 128 mg/dL (70-99) H 04/17/25 06:20 Vancomycin Trough 8.8 ug/mL (5.0-15.0) 04/17/25 06:20 Microbiology Microbiology: Microbiology 04/15/25 15:05 Urine, Catheterized Urine Culture - Final Culture exhibits no growth. 04/15/25 14:50 Blood Culture (Wb) - Anticubital Left Blood Culture - Preliminary Staphylococcus aureus 04/15/25 14:36 Blood Culture (Wb) - Anticubital Right Bacteria Detection (PCR) - Final Meth. resistant Staph. aureus mecA Resistance Marker 04/15/25 14:36 Blood Culture (Wb) - Anticubital Right Blood Culture - Preliminary Staphylococcus aureus 04/15/25 22:00 Mucosa - Nasopharyngeal Respiratory Panel (PCR) - Final 04/15/25 15:05 Mucosa - Nose SARS-CoV-2, Influenza & RSV (PCR) - Final Dosing Weight Weight used for dosin kg Estimated Creatinine Clearance Estimated Creatinine Clearance: 77 Goal Trough Goal Trough: 10-15 mcg/mL Pharmacy Plan for Drug Dosing Pharmacy Plan for Drug Dosing: Pharmacy Service will continue to monitor and adjust dosing as required. VANCOMYCIN LEVEL RECEIVED Current Vancomycin Dose: 750 MG Q12H Number of Doses Received: 3 (x1 LD + x2 MD) Vancomycin Level: 8.8 (low) Hours Since Last Dose: 11.5 Renal Function: SCr: 0.83, CrCl: 77 Renal Function Trend: Increasing Lab/Micro: MRSA Bacteremia Vancomycin Plan/Comments: INCREASE DOSE TO 1000 MG Q12H with first dose 04/17 @ 0900 Pending Level: 04/18/25 @ 2029 Date/Time Labs Ordered Labs to be done on [date and time ordered]: 04/18/25 @ 202904/17/25 0826 ebly> Date _ Howard Koroma 04/17/25 1509 m MD> Cosigner Signature (if applicable): Date Margarita Harris MD CC: ~ Signed [facility]08-20-2025 Progress note [facility] Medical Records Department [address] [place] [address] Progress Note 04/17/25 1004 MR#: [id number] Acct: [id number] Name: ASCENCION WEIR Rep #:[id number] : 1950 74 From: Margarita Harris MD PCP: Dr. Mike Solorzano MD Status:ADM IN Location: [place] [address] Subjective Subjective Patient seen and examined this morning with his nurse by his bedside. He had nocomplaints. He had an uneventful night. Review of systems otherwise negative. Objective Data Objective Data Vital Signs: Vital Signs Temp Pulse Resp BP Pulse Ox O2 Del Method O2 Flow Rate 98.3 F 87 18 110/76 98 Room Air 2 04/17/25 09:20 04/17/25 09:40 04/17/25 09:40 04/17/25 09:40 04/17/25 09:40 04/17/25 09:40 04/17/25 00:03 Oxygen Flow Rate (L/min) 2 Oxygen Delivery Method Room Air Weight: 185 lb 13.595 oz Body Mass Index (BMI) 29.9 Intake & Output: Intake and Output for Last 24 Hours 04/15/25 04/16/25 04/17/25 23:59 23:59 23:59 Intake Total 1430 / 1430 3663.33 / 3663.33 1016.67 / 1016.67 Output Total 1100 / 1100 3500 / 3500 1900 / 1900 Balance 330 / 330 163.33 / 163.33 -883.33 / -883.33 Lab / Micro Data 04/17/25 06:20 04/17/25 06:20 Labs: Laboratory Results - last 24 hr 04/16/25 11:52: POC Glucose 210 H 04/16/25 17:03: POC Glucose 119 H 04/16/25 21:34: POC Glucose 155 H 04/17/25 06:18: POC Glucose 125 H 04/17/25 06:20: WBC 2.4 L, RBC 3.61 L, Hgb 11.3 L, Hct 31.7 L, MCV 87.8, MCH 31.3, MCHC 35.6, RDW Std Deviation 40.7, RDW Coeff of Liang 12.7, Plt Count 81 L, MPV 9.7, Immature Gran % (Auto) 0.400, Neut % (Auto) 62.6, Lymph % (Auto) 18.3 L, [place] % (Auto) 15.7 H, Eos % (Auto) 2.6, Baso % (Auto) 0.4, Absolute Neuts (auto) 1.5 L, Absolute Lymphs (auto) 0.43 L, Nucleated RBC % 0, Platelet Estimate MOD DEC, Sodium 134, Potassium 4.2, Chloride 102, Carbon Dioxide 23.3, Anion Gap 9, BUN 11, Creatinine 0.83, Estim Creat Clear Calc 77.11, Est GFR (MDRD) Non-Af 91, BUN/Creatinine Ratio 13.2, Glucose 128 H, Calcium 8.2, Vancomycin Trough 8.8 Micro: Microbiology 04/15/25 15:05 Urine, Catheterized Urine Culture - Final Culture exhibits no growth. 04/15/25 14:50 Blood Culture (Wb) - Anticubital Left Blood Culture - Preliminary Staphylococcus aureus 04/15/25 14:36 Blood Culture (Wb) - Anticubital Right Bacteria Detection (PCR) - Final Meth. resistant Staph. aureus mecA Resistance Marker 04/15/25 14:36 Blood Culture (Wb) - Anticubital Right Blood Culture - Preliminary Staphylococcus aureus 04/15/25 22:00 Mucosa - Nasopharyngeal Respiratory Panel (PCR) - Final 04/15/25 15:05 Mucosa - Nose SARS-CoV-2, Influenza & RSV (PCR) - Final Radiography Diagnostic Testing: Radiology Impression Brain MRI 04/16/25 05:55 IMPRESSION: No acute intracranial abnormality. Reading Location: [facility] Echocardiogram 04/16/25 08:51 Interpretation Summary Right ventricular systolic pressure estimated to be 40 mmHg. Mild to moderate (1-2+) tricuspid valve insufficiency. No regional wall motion abnormalities noted. The estimated ejection fraction is 50 %. Normal LV size. There is mild biatrial dilatation. This was essentially a normal study. Ordering Physician: Alex Gonzales Performed By: Palmer Bolton RCS Transesophageal Echocardiogram 04/17/25 07:42 Interpretation Summary Normal LV size. Left ventricular systolic function is normal. The left ventricular ejection fraction is 65 %. Bubble contrast study is negative for PFO/ASD. No thrombus is detected in the left atrial appendage. Mild (1+) eccentric mitral valve insufficiency. No valvular vegetations noted. Stable appearing bioprosthetic aortic valve apparatus. Ordering Physician: Margarita Harris Performed By: Johanny Huston, YEVGENIY Physical Exam Const alert, oriented x3 and no apparent distress General Appearance: cooperative Orientation / Consciousness: confused HEENT normocephalic, head/scalp atraumatic, moist oral mucous membranes, oropharynx normal and gingiva normal Eyes PERRL and EOMs intact bilaterally Neck no lymphadenopathy and supple Lymph Lymphatic: no lymphedema noted Resp normal respiratory effort, normal air movement, no use of accessory muscles and clear to auscultation bilaterally Cardio regular rate, regular rhythm, S1 normal heart sound, S2 normal heart sound and no murmurs GI normal to inspection, nondistended, normoactive bowel sounds, soft to palpation and non-tender Extremity normal to inspection, normal capillary refill, no clubbing, cyanosis or edema and no calf tenderness General Extremity: no tenderness to palpation of joints or extremities Skin General Skin Exam: no breakdown Neuro CN's II-XII intact bilaterally, moves all extremities, no focal motor deficits and no sensory deficits noted Sensorium / Orientation: alert, oriented to person and oriented to place Speech: Negative for speech normal Motor Exam: general weakness Psych thought process normal and cooperative Appearance: appropriate Assessment & Plan Assessment/Plan (1) MRSA bacteremia: (2) Change in mental status: (3) Fever of unknown origin: PLAN: Plan #MRSA bacteremia * Admitted with a complaint of fever of unknown origin as well as confusion. CT chest abdomen and pelvis did not show any evidence of any infection. * Started on IV vancomycin and Zosyn. * Blood cultures came back positive for gram-positive cocci in clusters. PCR showing MRSA. * 2D echo showed RVSP of 40 mmHg with EF of 50% and normal left ventricular size with mild to moderate tricuspid valve insufficiency and no regional wall motion abnormalities noted. * ID on board. * had ZAINAB today which was negative for any evidence of vegetation. * #Strokelike symptoms * Developed dysarthria overnight. CT of the brain showed no evidence of stroke. * Monitor NIH stroke scale. * on PO aspirin and high intensity statin * MRI of the brain was negative for any evidence of a stroke. * #Pancytopenia: WBC today is down to 2.4, with Hb of 11.3 and platelets of 81. Platelets are down from 100 yesterday. Will dc lovenox today. Thrombocytopenia may be due to the acute illness and bacteremia. #Type 2 diabetes mellitus: on ISS. Accuchecks ACHS #Hypertension:BP meds on hold to allow for permissive hypertension. 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 stable #LIAN: on CPAP qhs #Chronic back pain: has a spinal stimulator in situ. Follow with pain managementon outpatient basis. DVT prophylaxis: lovenox; dc lovenox due to thrombocytopenia as platelets are down to 81 today. Start on SCDs. Charges/Coding Visit Charges Inpatient E&M: 01848 Subs Hosp L2 04/17/25 1509 Margarita Harris MD Cosigner Signature (if applicable): CC: ~ Signed [facility]08-20-2025 Progress note [facility] Medical Records Department [address] [facility] [place] [address] Progress Note - Infect Disease 04/17/25 150 MR#: [id number] Acct: [id number] Name: CARMELLAASCENCION Rep #:[id number] : 1950 74 From: Alex powers MD PCP: Dr. Mike Solorzano MD Status:ADM IN Location: [place] [address] Physical Exam Narrative Feeling better, no fever, had ZAINAB this AM, no n/v/d. Const alert and no apparent distress General Appearance: cooperative Resp normal air movement and clear to auscultation bilaterally Cardio regular rate and regular rhythm GI soft to palpation, non-tender and non-distended Skin no rashes or lesions noted ID ID: Route of nutrition/ use of supplements: [] Nutritional Intake: [] IV Site: [] Guzman Catheter: [] Assessment & Plan Assessment/Plan (1) MRSA bacteremia: PLAN: MRSA bacteremia, unclear source. No veg seen on ZAINAB, will repeat bcx. Cont vanc. Will follow (2) SIRS (systemic inflammatory response syndrome): (3) History of aortic valve replacement: 04/17/25 150 Cosigner Signature (if applicable): CC: ~ Signed [facility]08-19-2025 Progress note Author Didi Meng [facility] Note Date/Time April 16, 2025 9: 55pm [facility] Medical Records Department [address] [place] [address] Progress Note - Hospitalist 04/16/252153 MR#: [id number] Acct: [id number] Name: ASCENCION WEIR Rep #:[id number] : 1950 74 From: Didi Meng MD PCP: Dr. Mike Solorzano MD Status:ADM IN Location: [place] [address] Hospitalist Note Patient with MAP <65 throughout the day, administered IVFs, SBP still remains low, DBP in the 40s, will add midodrine. 04/16/252154 <Electronically signed by Didi Meng MD> Cosigner Signature (if applicable): CC: ~ Signed [facility] Work Phone: 1(100) 264-550708-19-2025 Progress note [facility] Medical Records Department [address] [place] [address] Progress Note - Hospitalist 04/16/252153 MR#: [id number] Acct: [id number] Name: ASCENCION WEIR Rep #:[id number] : 1950 74 From: Didi Meng MD PCP: Dr. Mike Solorzano MD Status:ADM IN Location: [place] [address] Hospitalist Note Patient with MAP <65 throughout the day, administered IVFs, SBP still remains low, DBP in the 40s, will add midodrine. 04/16/252154 Cosigner Signature (if applicable): CC: ~ Signed [facility]08-19-2025 Progress note Author Margarita [facility] Note Date/Time April 16, 2025 3: 31pm [facility] Medical Records Department [address] [place] [address] Progress Note 04/16/25 1225 MR#: [id number] Acct: [id number] Name: ASCENCION WEIR Rep #:[id number] : 1950 74 From: Margarita Harris MD PCP: Dr. Mike Solorzano MD Status:ADM IN Location: [place] [address] Subjective Subjective Patient seen and examined with his nurse by his bedside. He was admitted with a complaint of confusion yesterday. He says he does not even remember why he was admitted. In the early hours of this morning) was found to have some dysarthriaso CT of the brain was done but this was negative for stroke. He is awaiting MRI. He has no complaints this morning. His dysarthria seems to have largely resolved. He denies any fever or chills, palpitations, nausea or vomiting. Hisblood cultures are positive for gram-positive cocci in clusters. Objective Data Objective Data Vital Signs: Vital Signs Temp Pulse Resp BP Pulse Ox O2 Del Method O2 Flow Rate 98.6 F 78 16 104/40 L 97 Room Air 2 04/16/25 09:22 04/16/25 09:22 04/16/25 09:22 04/16/25 09:22 04/16/25 09:22 04/16/25 09:22 04/15/25 23:30 Oxygen Flow Rate (L/min) 2 Oxygen Delivery Method Room Air Weight: 185 lb 13.595 oz Body Mass Index (BMI) 29.9 Intake & Output: Intake and Output for Last 24 Hours 04/14/25 04/15/25 04/16/25 23:59 23:59 23:59 Intake Total 1430 / 1430 1965 / 1965 Output Total 1100 / 1100 650 / 650 Balance 330 / 330 1315 / 1315 Lab / Micro Data 04/16/25 05:12 04/16/25 05:12 Labs: Laboratory Results - last 24 hr 04/15/25 14:36: WBC 3.1 L, RBC 4.08 L, Hgb 12.6 L, Hct 36.2 L, MCV 88.7, MCH 30.9, MCHC 34.8, RDW Std Deviation 40.6, RDW Coeff of Liang 12.6, Plt Count 100 L,MPV 9.1, Immature Gran % (Auto) 0.700, Neut % (Auto) 83.9 H, Lymph % (Auto) 6.9 L, [place] % (Auto) 7.2, Eos % (Auto) 1.0, Baso % (Auto) 0.3, Absolute Neuts (auto)2.6, Absolute Lymphs (auto) 0.21 L, Nucleated RBC % 0, PT 15.1 H, INR 1.2, APTT 30.3, Sodium 132 L, Potassium 4.6, Chloride 96 L, Carbon Dioxide 23.1, Anion Gap13, BUN 13, Creatinine 0.91, Estim Creat Clear Calc 74.67, Est GFR (MDRD) Non-Af88, BUN/Creatinine Ratio 14.6, Glucose 125 H, Lactic Acid 1.6, Calcium 9.3, Total Bilirubin 0.52, AST 36, ALT 30, Alkaline Phosphatase 99, Total Protein 7.1, Albumin 4.3, Globulin 2.8, Albumin/Globulin Ratio 1.6 04/15/25 15:05: Urine Color Yellow, Urine Clarity Clear, Urine pH 7.0, Ur Specific [place] 1.010, Urine Protein 30 H, Urine Glucose (UA) Normal, Urine Ketones 5 H, Urine Occult Blood 10 H, Urine Nitrite Negative, Urine Bilirubin Negative, Urine Urobilinogen Normal, Ur Leukocyte Esterase Negative, Urine RBC 0-5 SEEN, Urine WBC 0-5 SEEN, Ur Squamous Epith Cells 0-5 SEEN, Urine Bacteria 0SEEN, Urine Mucus 0 SEEN 04/15/25 22:07: POC Glucose 214 H 04/16/25 00:23: POC Glucose 216 H 04/16/25 05:12: WBC 3.8 L, RBC 3.91 L, Hgb 11.9 L, Hct 34.5 L, MCV 88.2, MCH 30.4, MCHC 34.5, RDW Std Deviation 41.1, RDW Coeff of Liang 12.8, Plt Count 100 L,MPV 9.3, Immature Gran % (Auto) 0.300, Neut % (Auto) 83.0 H, Lymph % (Auto) 6.6 L, [place] % (Auto) 9.6, Eos % (Auto) 0.0, Baso % (Auto) 0.5, Absolute Neuts (auto)3.1, Absolute Lymphs (auto) 0.25 L, Nucleated RBC % 0, Differential Comment SCANNED, Sodium 130 L, Potassium 4.1, Chloride 97 L, Carbon Dioxide 20.4 L, Anion Gap 13, BUN 15, Creatinine 0.95, Estim Creat Clear Calc 67.37, Est GFR (MDRD) Non-Af 83, BUN/Creatinine Ratio 15.7, Glucose 197 H, Calcium 8.2, Total Bilirubin 0.47, AST 34, ALT 29, Alkaline Phosphatase 76, Total Protein 5.9, Albumin 3.4, Globulin 2.6, Albumin/Globulin Ratio 1.3 04/16/25 06:22: POC Glucose 207 H 04/16/25 11:52: POC Glucose 210 H Micro: Microbiology 04/15/25 15:05 Urine, Catheterized Urine Culture - Preliminary Culture exhibits no growth. 04/15/25 14:50 Blood Culture (Wb) - Anticubital Left Blood Culture - Preliminary 04/15/25 14:36 Blood Culture (Wb) - Anticubital Right Bacteria Detection (PCR) - Final Meth. resistant Staph. aureus mecA Resistance Marker 04/15/25 14:36 Blood Culture (Wb) - Anticubital Right Blood Culture - Preliminary 04/15/25 22:00 Mucosa - Nasopharyngeal Respiratory Panel (PCR) - Final 04/15/25 15:05 Mucosa - Nose SARS-CoV-2, Influenza & RSV (PCR) - Final Radiography Diagnostic Testing: Radiology Impression Chest X-Ray 04/15/25 15:15 IMPRESSION: No Acute Findings. Reading Location: [facility] Chest/Abdomen/Pelvis CT 04/15/25 18:05 IMPRESSION: Minimal inflammatory change in the right lower lobe. No acute abnormality. Incidental findings as above Reading Location: [facility] Head/Neck CTA 04/15/25 22:26 IMPRESSION: 1. No large vessel arterial occlusion or high-grade stenosis. 2. Atherosclerotic plaque at the carotid bifurcations with moderate stenosis of the proximal right ICA, and mild less than 50% stenosis of the proximal left ICA. Reading Location: [facility] Brain CT 04/15/25 22:32 IMPRESSION: No acute intracranial abnormality. Reading Location: [facility] Physical Exam Const alert, oriented x3 and no apparent distress General Appearance: cooperative HEENT normocephalic, head/scalp atraumatic, moist oral mucous membranes, oropharynx normal and gingiva normal Eyes EOMs intact bilaterally Neck no lymphadenopathy and supple Lymph Lymphatic: no lymphedema noted Resp normal respiratory effort, normal air movement and clear to auscultation bilaterally Cardio regular rate, regular rhythm, S1 normal heart sound, S2 normal heart sound and no murmurs GI normal to inspection, nondistended, normoactive bowel sounds, soft to palpation and non-tender Extremity normal capillary refill, no clubbing, cyanosis or edema and no calf tenderness General Extremity: no tenderness to palpation of joints or extremities Skin General Skin Exam: no breakdown Neuro CN's II-XII intact bilaterally and no focal motor deficits Motor Exam: general weakness Psych thought process normal and cooperative Appearance: appropriate Assessment & Plan Assessment/Plan (1) MRSA bacteremia: (2) Change in mental status: (3) Fever of unknown origin: PLAN: Plan #MRSA bacteremia * Admitted with a complaint of fever of unknown origin as well as confusion. CT chest abdomen and pelvis did not show any evidence of any infection. * Started on IV vancomycin and Zosyn. * Blood cultures came back positive for gram-positive cocci in clusters. PCR showing MRSA. * 2D echo ordered today showed RVSP of 40 mmHg with EF of 50% and normal left ventricular size with mild to moderate tricuspid valve insufficiency and no regional wall motion abnormalities noted. * ID on board. * #Strokelike symptoms * Developed dysarthria overnight. CT of the brain showed no evidence of stroke. Awaiting MRI after this clarified whether his spinal stimulator is MRI compatible. * Monitor NIH stroke scale. * on PO aspirin and high intensity statin * #Pancytopenia: WBCs 3.8 today with hemoglobin of 11.9 and platelets of 100. Will monitor closely. If platelets drop further will DC Lovenox. #Type 2 diabetes mellitus: on ISS. 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 stable #LIAN: on CPAP qhs #Chronic back pain: has a spinal stimulator in situ. Follow with pain managementon outpatient basis. DVT prophylaxis: lovenox Charges/Coding Visit Charges Inpatient E&M: 88794 Subs Hosp L3 04/16/25 1531 <Electronically signed by Margarita Harris MD> Margarita Harris MD Cosigner Signature (if applicable): CC: ~ Signed [facility] Work Phone: 1(574) 782-730408-19-2025 Progress note [facility] Medical Records Department [address] [place] [address] Progress Note 04/16/25 1225 MR#: [id number] Acct: [id number] Name: ASCENCION WEIR Rep #:[id number] : 1950 74 From: Margarita Harris MD PCP: Dr. Mike Solorzano MD Status:ADM IN Location: [place] [address] Subjective Subjective Patient seen and examined with his nurse by his bedside. He was admitted with a complaint of confusion yesterday. He says he does not even remember why he was admitted. In the early hours of this morning) was found to have some dysarthriaso CT of the brain was done but this was negative for stroke.He is awaiting MRI. He has no complaints this morning. His dysarthria seems to have largely resolved. He denies any fever or chills, palpitations, nausea or vomiting. Hisblood cultures are positive for gram-positive cocci in clusters. Objective Data Objective Data Vital Signs: Vital Signs Temp Pulse Resp BP Pulse Ox O2 Del Method O2 Flow Rate 98.6 F 78 16 104/40 L 97 Room Air 2 04/16/25 09:22 04/16/25 09:22 04/16/25 09:22 04/16/25 09:22 04/16/25 09:22 04/16/25 09:22 04/15/25 23:30 Oxygen Flow Rate (L/min) 2 Oxygen Delivery Method Room Air Weight: 185 lb 13.595 oz Body Mass Index (BMI) 29.9 Intake & Output: Intake and Output for Last 24 Hours 04/14/25 04/15/25 04/16/25 23:59 23:59 23:59 Intake Total 1430 / 1430 1965 / 1965 Output Total 1100 / 1100 650 / 650 Balance 330 / 330 1315 / 1315 Lab / Micro Data 04/16/25 05:12 04/16/25 05:12 Labs: Laboratory Results - last 24 hr 04/15/25 14:36: WBC 3.1 L, RBC 4.08 L, Hgb 12.6 L, Hct 36.2 L, MCV 88.7, MCH 30.9, MCHC 34.8, RDW Std Deviation 40.6, RDW Coeff of Liang 12.6, Plt Count 100 L,MPV 9.1, Immature Gran % (Auto) 0.700, Neut % (Auto) 83.9 H, Lymph % (Auto) 6.9 L, [place] % (Auto) 7.2, Eos % (Auto) 1.0, Baso % (Auto) 0.3, Absolute Neuts (auto)2.6, Absolute Lymphs (auto) 0.21 L, Nucleated RBC % 0, PT 15.1 H, INR 1.2, APTT 30.3, Sodium 132 L, Potassium 4.6, Chloride 96 L, Carbon Dioxide 23.1, Anion Gap13, BUN 13, Creatinine0.91, Estim Creat Clear Calc 74.67, Est GFR (MDRD) Non-Af88, BUN/Creatinine Ratio 14.6, Glucose 125H, Lactic Acid 1.6, Calcium 9.3, Total Bilirubin 0.52, AST 36, ALT 30, Alkaline Phosphatase 99, Tota l Protein 7.1, Albumin 4.3, Globulin 2.8, Albumin/Globulin Ratio 1.6 04/15/25 15:05: Urine Color Yellow, Urine Clarity Clear, Urine pH 7.0, Ur Specific [place] 1.010, Urine Protein 30 H, Urine Glucose (UA) Normal, Urine Ketones 5 H, Urine Occult Blood 10 H, Urine Nitrite Negative, Urine Bilirubin Negative, Urine Urobilinogen Normal, Ur Leukocyte Esterase Negative, Urine RBC 0-5 SEEN, Urine WBC 0-5 SEEN, Ur Squamous Epith Cells 0-5 SEEN, Urine Bacteria 0SEEN, UrineMucus 0 SEEN 04/15/25 22:07: POC Glucose 214 H 04/16/25 00:23: POC Glucose 216 H 04/16/25 05:12: WBC 3.8 L, RBC 3.91 L, Hgb 11.9 L, Hct 34.5 L, MCV 88.2, MCH 30.4, MCHC 34.5, RDW Std Deviation 41.1, RDW Coeff of Liang 12.8, Plt Count 100 L,MPV 9.3, Immature Gran % (Auto) 0.300, Neut % (Auto) 83.0 H, Lymph % (Auto) 6.6 L, [place] % (Auto) 9.6, Eos % (Auto) 0.0, Baso % (Auto) 0.5, Absolute Neuts (auto)3.1, Absolute Lymphs (auto) 0.25 L, Nucleated RBC % 0, Differential Comment SCANNED, Sodium 130 L, Potassium 4.1, Chloride 97 L, Carbon Dioxide 20.4 L, Anion Gap 13, BUN 15, Creatinine 0.95, Estim Creat Clear Calc 67.37, Est GFR (MDRD) Non-Af 83, BUN/Creatinine Ratio 15.7, Glucose 197 H, Calcium 8.2, Total Bilirubin 0.47, AST 34, ALT 29, Alkaline Phosphatase 76, Total Protein 5.9, Albumin 3.4, Globulin 2.6, Albumin/Globulin Ratio 1.3 04/16/25 06:22: POC Glucose 207 H 04/16/25 11:52: POC Glucose 210 H Micro: Microbiology 04/15/25 15:05 Urine, Catheterized Urine Culture - Preliminary Culture exhibits no growth. 04/15/25 14:50 Blood Culture (Wb) - Anticubital Left Blood Culture - Preliminary 04/15/25 14:36 Blood Culture (Wb) - Anticubital Right Bacteria Detection (PCR) - Final Meth. resistant Staph. aureus mecA Resistance Marker 04/15/25 14:36 Blood Culture (Wb) - Anticubital Right Blood Culture - Preliminary 04/15/25 22:00 Mucosa - Nasopharyngeal Respiratory Panel (PCR) - Final 04/15/25 15:05 Mucosa - Nose SARS-CoV-2, Influenza & RSV (PCR) - Final Radiography Diagnostic Testing: Radiology Impression Chest X-Ray 04/15/25 15:15 IMPRESSION: No Acute Findings. Reading Location: [facility] Chest/Abdomen/Pelvis CT 04/15/25 18:05 IMPRESSION: Minimal inflammatory change in the right lower lobe. No acute abnormality. Incidental findings as above Reading [facility] Head/Neck CTA 04/15/25 22:26 IMPRESSION: 1. No large vessel arterial occlusion or high-grade stenosis. 2. Atherosclerotic plaque at the carotid bifurcations with moderate stenosis of the proximal right ICA, and mild less than 50% stenosis of the proximal left ICA. Reading Location: [id number] Brain CT 04/15/25 22:32 IMPRESSION: No acute intracranial abnormality. Reading Location: [facility] Physical Exam Const alert, oriented x3 and no apparent distress General Appearance: cooperative HEENT normocephalic, head/scalp atraumatic, moist oral mucous membranes, oropharynx normal and gingiva normal Eyes EOMs intact bilaterally Neck no lymphadenopathy and supple Lymph Lymphatic: no lymphedema noted Resp normal respiratory effort, normal air movement and clear to auscultation bilaterally Cardio regular rate, regular rhythm, S1 normal heart sound, S2 normal heart sound and no murmurs GI normal to inspection, nondistended, normoactive bowel sounds, soft to palpation and non-tender Extremity normal capillary refill, no clubbing, cyanosis or edema and no calf tenderness General Extremity: no tenderness to palpation of joints or extremities Skin General Skin Exam: no breakdown Neuro CN's II-XII intact bilaterally and no focal motor deficits Motor Exam: general weakness Psych thought process normal and cooperative Appearance: appropriate Assessment & Plan Assessment/Plan (1) MRSA bacteremia: (2) Change in mental status: (3) Fever of unknown origin: PLAN: Plan #MRSA bacteremia * Admitted with a complaint of fever of unknown origin as well as confusion. CT chest abdomen and pelvis did not show any evidence of any infection. * Started on IV vancomycin and Zosyn. * Blood cultures came back positive for gram-positive cocci in clusters. PCR showing MRSA. * 2D echo ordered today showed RVSP of 40 mmHg with EF of 50% and normal left ventricular size withmild to moderate tricuspid valve insufficiency and no regional wall motion abnormalities noted. * ID on board. * #Strokelike symptoms * Developed dysarthria overnight. CT of the brain showed no evidence of stroke. Awaiting MRI after this clarified whether his spinal stimulator is MRI compatible. * Monitor NIH stroke scale. * on PO aspirin and high intensity statin * #Pancytopenia: WBCs 3.8 today with hemoglobin of 11.9 and platelets of 100. Will monitor closely. If platelets drop further will DC Lovenox. #Type 2 diabetes mellitus: on ISS. 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 stable #LIAN: on CPAP qhs #Chronic back pain: has a spinal stimulator in situ. Follow with pain managementon outpatient basis. DVT prophylaxis: lovenox Charges/Coding Visit Charges Inpatient E&M: 13499 Subs Hosp L3 04/16/25 1531 Margarita Banks Signature (if applicable): CC: ~ Signed [facility]08-19-2025 Consult note Author Alex Gonzales [facility] Note Date/Time April 16, 2025 10 :28am [facility] Medical Records Department [address] [place] [address] Consultation - Infectious Dx 04/16/25 1024 MR#: [id number] Acct: [id number] Name: ASCENCION WEIR Rep #:[id number] : 1950 74 From: Alex powers MD PCP: Dr. Mike Solorzano MD Status:ADM IN Location: [place] [address] Assessment & Plan Assessment/Plan (1) MRSA bacteremia: PLAN: MRSA bacteremia per pcr, unclear source. Will check TTE, repeat bcx. Stop zosyn, cont vanc. Will follow, thank you, d/w primary team (2) SIRS (systemic inflammatory response syndrome): (3) History of aortic valve replacement: HPI Consult Data Date of Consult: 04/16/25 HPI Narrative Reason for Consultation: bacteremia HPI Narrative: ASCENCION WEIR, is a 74 M with h/o tissue aortic valve replacement, BPH, chronic back pain and neuropathy with stimulator in place, presented 04/15 with sudden onset fever, chills, generalized weakness, confusion. Denies any recent procedures, infections, or abx. Mild dry cough for a few days. Came to ED, admitted on vanc/zosyn, feeling better but still some chills. No new focal joint or back pain. Full ROS performed and neg except as noted above. 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 Pericardial effusion [...] Unknown History multivitamin 1 tab PO DAILY Supplement Unknown History celecoxib 200 mg capsule (Celebrex) 200 mg PO BID 05/31 Unknown History atorvastatin 20 mg tablet 20 mg PO QHS 12/22/20 Unknow n History metoprolol succinate 50 mg 50 mg PO [...] additional social history: Does Not Take Ibuprofen Physical Exam Const alert, oriented x3 and no apparent distress General Appearance: cooperative HEENT normocephalic and head/scalp atraumatic Eyes PERRL and EOMs intact bilaterally Neck supple and No nodes Resp normal air movement and clear to auscultation bilaterally Cardio regular rate and regular rhythm Heart Sounds: murmur GI soft to palpation, non-tender and non-distended Extremity General Extremity: no tenderness to palpation of joints or extremities; Negativefor edema Skin no rashes or lesions noted Skin Narrative: No splinter hemorrhages on hands or feet. No spine tenderness. No inflammationover R lower back stimulator site. Neuro CN's II-XII intact bilaterally Lab / Micro Data Attestation: I reviewed the patient's lab results. 04/16/25 05:12 04/16/25 05:12 Labs: Laboratory Results - last 24 hr 04/15/25 14:36: WBC 3.1 L, RBC 4.08 L, Hgb 12.6 L, Hct 36.2 L, MCV 88.7, MCH 30.9, MCHC 34.8, RDW Std Deviation 40.6, RDW Coeff of Liang 12.6, Plt Count 100 L,MPV 9.1, Immature Gran % (Auto) 0.700, Neut % (Auto) 83.9 H, Lymph % (Auto) 6.9 L, [place] % (Auto) 7.2, Eos % (Auto) 1.0, Baso % (Auto) 0.3, Absolute Neuts (auto)2.6, Absolute Lymphs (auto) 0.21 L, Nucleated RBC % 0, PT 15.1 H, INR 1.2, APTT 30.3, Sodium 132 L, Potassium 4.6, Chloride 96 L, Carbon Dioxide 23.1, Anion Gap13, BUN 13, Creatinine 0.91, Estim Creat Clear Calc 74.67, Est GFR (MDRD) Non-Af88, BUN/Creatinine Ratio 14.6, Glucose 125 H, Lactic Acid 1.6, Calcium 9.3, Total Bilirubin 0.52, AST 36, ALT 30, Alkaline Phosphatase 99, Total Protein 7.1, Albumin 4.3, Globulin 2.8, Albumin/Globulin Ratio 1.6 04/15/25 15:05: Urine Color Yellow, Urine Clarity Clear, Urine pH 7.0, Ur Specific [place] 1.010, Urine Protein 30 H, Urine Glucose (UA) Normal, Urine Ketones 5 H, Urine Occult Blood 10 H, Urine Nitrite Negative, Urine Bilirubin Negative, Urine Urobilinogen Normal, Ur Leukocyte Esterase Negative, Urine RBC 0-5 SEEN, Urine WBC 0-5 SEEN, Ur Squamous Epith Cells 0-5 SEEN, Urine Bacteria 0SEEN, Urine Mucus 0 SEEN 04/15/25 22:07: POC Glucose 214 H 04/16/25 00:23: POC Glucose 216 H 04/16/25 05:12: WBC 3.8 L, RBC 3.91 L, Hgb 11.9 L, Hct 34.5 L, MCV 88.2, MCH 30.4, MCHC 34.5, RDW Std Deviation 41.1, RDW Coeff of Liang 12.8, Plt Count 100 L,MPV 9.3, Immature Gran % (Auto) 0.300, Neut % (Auto) 83.0 H, Lymph % (Auto) 6.6 L, [place] % (Auto) 9.6, Eos % (Auto) 0.0, Baso % (Auto) 0.5, Absolute Neuts (auto)3.1, Absolute Lymphs (auto) 0.25 L, Nucleated RBC % 0, Differential Comment SCANNED, Sodium 130 L, Potassium 4.1, Chloride 97 L, Carbon Dioxide 20.4 L, Anion Gap 13, BUN 15, Creatinine 0.95, Estim Creat Clear Calc 67.37, Est GFR (MDRD) Non-Af 83, BUN/Creatinine Ratio 15.7, Glucose 197 H, Calcium 8.2, Total Bilirubin 0.47, AST 34, ALT 29, Alkaline Phosphatase 76, Total Protein 5.9, Albumin 3.4, Globulin 2.6, Albumin/Globulin Ratio 1.3 04/16/25 06:22: POC Glucose 207 H Micro: Microbiology 04/15/25 15:05 Urine, Catheterized Urine Culture - Preliminary Culture exhibits no growth. 04/15/25 14:50 Blood Culture (Wb) - Anticubital Left Blood Culture - Preliminary 04/15/25 14:36 Blood Culture (Wb) - Anticubital Right Bacteria Detection (PCR) - Final Meth. resistant Staph. aureus mecA Resistance Marker 04/15/25 14:36 Blood Culture (Wb) - Anticubital Right Blood Culture - Preliminary 04/15/25 22:00 Mucosa - Nasopharyngeal Respiratory Panel (PCR) - Final 04/15/25 15:05 Mucosa - Nose SARS-CoV-2, Influenza & RSV (PCR) - Final Imaging Radiology Impression Chest X-Ray 04/15/25 15:15 IMPRESSION: No Acute Findings. Reading Location[facility] Chest/Abdomen/Pelvis CT 04/15/25 18:05 IMPRESSION: Minimal inflammatory change in the right lower lobe. No acute abnormality. Incidental findings as above Reading [facility] Head/Neck CTA 04/15/25 22:26 IMPRESSION: 1. No large vessel arterial occlusion or high-grade stenosis. 2. Atherosclerotic plaque at the carotid bifurcations with moderate stenosis of the proximal right ICA, and mild less than 50% stenosis of the proximal left ICA. Reading Location: [id number] Brain CT 04/15/25 22:32 IMPRESSION: No acute intracranial abnormality. Reading Location: [facility] 04/16/25 1028 <Electronically signed by Alex Gonzales MD> Cosigner Signature (if applicable): CC: Dr. Mike Solorzano MD~ Signed [facility] Work Phone: [phone] 601-515508-19-2025 Telephone encounter Note* Telephone Encounter - Vernell Hernandez LPN - 04/16/2025 11:31 AM EDT Received ed summary from [facility]. Placed in provider's inbox for review. Route to MA scanning [facility]08-19-2025 Miscellaneous Notes* Telephone Encounter - Vernell Hernandez LPN - 04/16/2025 11:31 AM EDT Received ed summary from [facility]. Placed in provider's inbox for review. Route to MA scanning [facility] Consult note [facility] Medical Records Department [address] [place] [address] Consultation - Infectious Dx 04/16/25 1024 MR#: [id number] Acct: [id number] Name: ASCENCION WEIR Rep #:[id number] : 1950 74 From: Alex powers MD PCP: Dr. Mike Solorzano MD Status:ADM IN Location: [place] [address] Assessment & Plan Assessment/Plan (1) MRSA bacteremia: PLAN: MRSA bacteremia per pcr, unclear source. Will check TTE, repeat bcx. Stop zosyn, cont vanc. Will follow, thank you, d/w primary team (2) SIRS (systemic inflammatory response syndrome): (3) History of aortic valve replacement: HPI Consult Data Date of Consult: 04/16/25 HPI Narrative Reason for Consultation: bacteremia HPI Narrative: ASCENCION WEIR, is a 74 M with h/o tissue aortic valve replacement, BPH, chronic back pain and neuropathy with stimulator in place, presented 04/15 with sudden onset fever, chills, generalized weakness, confusion. Denies any recent procedures, infections, or abx. Mild dry cough for a few days. Came to ED, admitted on vanc/zosyn, feeling better but still some chills. No new focal joint or back pain. Full ROS performed and neg except as noted above. 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 Pericardial effusion [...] Unknown History multivitamin 1 tab PO DAILY Supplement Unknown History celecoxib 200 mg capsule (Celebrex) 200 mg PO BID 05/31 Unknown History atorvastatin 20 mg tablet 20 mg PO QHS 12/22/20 Unknow n History metoprolol succinate 50 mg 50 mg PO [...] additional social history: Does Not Take Ibuprofen Physical Exam Const alert, oriented x3 and no apparent distress General Appearance: cooperative HEENT normocephalic and head/scalp atraumatic Eyes PERRL and EOMs intact bilaterally Neck supple and No nodes Resp normal air movement and clear to auscultation bilaterally Cardio regular rate and regular rhythm Heart Sounds: murmur GI soft to palpation, non-tender and non-distended Extremity General Extremity: no tenderness to palpation of joints or extremities; Negativefor edema Skin no rashes or lesions noted Skin Narrative: No splinter hemorrhages on hands or feet. No spine tenderness. No inflammationover R lower back stimulator site. Neuro CN's II-XII intact bilaterally Lab / Micro Data Attestation: I reviewed the patient's lab results. 04/16/25 05:12 04/16/25 05:12 Labs: Laboratory Results - last 24 hr 04/15/25 14:36: WBC 3.1 L, RBC 4.08 L, Hgb 12.6 L, Hct 36.2 L, MCV 88.7, MCH 30.9, MCHC 34.8, RDW Std Deviation 40.6, RDW Coeff of Liang 12.6, Plt Count 100 L,MPV 9.1, Immature Gran % (Auto) 0.700, Neut % (Auto) 83.9 H, Lymph % (Auto) 6.9 L, [place] % (Auto) 7.2, Eos % (Auto) 1.0, Baso % (Auto) 0.3, Absolute Neuts (auto)2.6, Absolute Lymphs (auto) 0.21 L, Nucleated RBC % 0, PT 15.1 H, INR 1.2, APTT 30.3, Sodium 132 L, Potassium 4.6, Chloride 96 L, Carbon Dioxide 23.1, Anion Gap13, BUN 13, Creatinine0.91, Estim Creat Clear Calc 74.67, Est GFR (MDRD) Non-Af88, BUN/Creatinine Ratio 14.6, Glucose 125H, Lactic Acid 1.6, Calcium 9.3, Total Bilirubin 0.52, AST 36, ALT 30, Alkaline Phosphatase 99, Tota l Protein 7.1, Albumin 4.3, Globulin 2.8, Albumin/Globulin Ratio 1.6 04/15/25 15:05: Urine Color Yellow, Urine Clarity Clear, Urine pH 7.0, Ur Specific [place] 1.010, Urine Protein 30 H, Urine Glucose (UA) Normal, Urine Ketones 5 H, Urine Occult Blood 10 H, Urine Nitrite Negative, Urine Bilirubin Negative, Urine Urobilinogen Normal, Ur Leukocyte Esterase Negative, Urine RBC 0-5 SEEN, Urine WBC 0-5 SEEN, Ur Squamous Epith Cells 0-5 SEEN, Urine Bacteria 0SEEN, UrineMucus 0 SEEN 04/15/25 22:07: POC Glucose 214 H 04/16/25 00:23: POC Glucose 216 H 04/16/25 05:12: WBC 3.8 L, RBC 3.91 L, Hgb 11.9 L, Hct 34.5 L, MCV 88.2, MCH 30.4, MCHC 34.5, RDW Std Deviation 41.1, RDW Coeff of Liang 12.8, Plt Count 100 L,MPV 9.3, Immature Gran % (Auto) 0.300, Neut % (Auto) 83.0 H, Lymph % (Auto) 6.6 L, [place] % (Auto) 9.6, Eos % (Auto) 0.0, Baso % (Auto) 0.5, Absolute Neuts (auto)3.1, Absolute Lymphs (auto) 0.25 L, Nucleated RBC % 0, Differential Comment SCANNED, Sodium 130 L, Potassium 4.1, Chloride 97 L, Carbon Dioxide 20.4 L, Anion Gap 13, BUN 15, Creatinine 0.95, Estim Creat Clear Calc 67.37, Est GFR (MDRD) Non-Af 83, BUN/Creatinine Ratio 15.7, Glucose 197 H, Calcium 8.2, Total Bilirubin 0.47, AST 34, ALT 29, Alkaline Phosphatase 76, Total Protein 5.9, Albumin 3.4, Globulin 2.6, Albumin/Globulin Ratio 1.3 04/16/25 06:22: POC Glucose 207 H Micro: Microbiology 04/15/25 15:05 Urine, Catheterized Urine Culture - Preliminary Culture exhibits no growth. 04/15/25 14:50 Blood Culture (Wb) - Anticubital Left Blood Culture - Preliminary 04/15/25 14:36 Blood Culture (Wb) - Anticubital Right Bacteria Detection (PCR) - Final Meth. resistant Staph. aureus mecA Resistance Marker 04/15/25 14:36 Blood Culture (Wb) - Anticubital Right Blood Culture - Preliminary 04/15/25 22:00 Mucosa - Nasopharyngeal Respiratory Panel (PCR) - Final 04/15/25 15:05 Mucosa - Nose SARS-CoV-2, Influenza & RSV (PCR) - Final Imaging Radiology Impression Chest X-Ray 04/15/25 15:15 IMPRESSION: No Acute Findings. Reading Location: [facility] Chest/Abdomen/Pelvis CT 04/15/25 18:05 IMPRESSION: Minimal inflammatory change in the right lower lobe. No acute abnormality. Incidental findings as above Reading Location: [facility] Head/Neck CTA 04/15/25 22:26 IMPRESSION: 1. No large vessel arterial occlusion or high-grade stenosis. 2. Atherosclerotic plaque at the carotid bifurcations with moderate stenosis of the proximal right ICA, and mild less than 50% stenosis of the proximal left ICA. Reading Location: [facility] Brain CT 04/15/25 22:32 IMPRESSION: No acute intracranial abnormality. Reading Location: [facility] 04/16/25 1028 Cosigner Signature (if applicable): CC: Dr. Mike Solorzano MD~ Signed [facility]08-19-2025 Progress note Author Kavon Schultz [facility] Note Date/Time April 15, 2025 11 :10pm [facility] Medical Records Department [address] [place] [address] Progress Note - Hospitalist 04/15/25 1165 MR#: [id number] Acct: [id number] Name: ASCENCION WEIR Rep #:[id number] : 1950 74 From: Kavon Schultz MD PCP: Dr. Mike Solorzano MD Status:ADM IN Location: [place] [address] Reason for Visit Chief Complaint: stroke alert Subjective Subjective Stroke team called 10:12 PM as nurse last saw the patient well at 830 approximately and was reevaluating him and found him to be dysarthric and more confused. Stated he had been earlier able to follow conversation fluently but was now struggling to speak coherently. Patient was also more notably agitated. Following stroke protocol patient was sent to radiology for stat CT scan of thebrain and [facility] was consulted. Objective Data Objective Data Vital Signs: Vital Signs Temp Pulse Resp BP Pulse Ox O2 Del Method 101.4 F H 111 H 22 H 149/74 H 96 Room Air 04/15/25 21:55 04/15/25 21:55 04/15/25 21:55 04/15/25 21:55 04/15/25 21:55 04/15/25 21:55 Oxygen Delivery Method Room Air Weight: 185 lb 13.595 oz Body Mass Index (BMI) 29.9 Intake & Output: Intake and Output for Last 24 Hours 04/13/25 04/14/25 04/15/25 23:59 23:59 23:59 Intake Total 1130 / 1130 Balance 1130 / 1130 Lab / Micro Data 04/15/25 14:36 04/15/25 14:36 Labs: Laboratory Results - last 24 hr 04/15/25 14:36: WBC 3.1 L, RBC 4.08 L, Hgb 12.6 L, Hct 36.2 L, MCV 88.7, MCH 30.9, MCHC 34.8, RDW Std Deviation 40.6, RDW Coeff of Liang 12.6, Plt Count 100 L,MPV 9.1, Immature Gran % (Auto) 0.700, Neut % (Auto) 83.9 H, Lymph % (Auto) 6.9 L, [place] % (Auto) 7.2, Eos % (Auto) 1.0, Baso % (Auto) 0.3, Absolute Neuts (auto)2.6, Absolute Lymphs (auto) 0.21 L, Nucleated RBC % 0, PT 15.1 H, INR 1.2, APTT 30.3, Sodium 132 L, Potassium 4.6, Chloride 96 L, Carbon Dioxide 23.1, Anion Gap13, BUN 13, Creatinine 0.91, Estim Creat Clear Calc 74.67, Est GFR (MDRD) Non-Af88, BUN/Creatinine Ratio 14.6, Glucose 125 H, Lactic Acid 1.6, Calcium 9.3, Total Bilirubin 0.52, AST 36, ALT 30, Alkaline Phosphatase 99, Total Protein 7.1, Albumin 4.3, Globulin 2.8, Albumin/Globulin Ratio 1.6 04/15/25 15:05: Urine Color Yellow, Urine Clarity Clear, Urine pH 7.0, Ur Specific [place] 1.010, Urine Protein 30 H, Urine Glucose (UA) Normal, Urine Ketones 5 H, Urine Occult Blood 10 H, Urine Nitrite Negative, Urine Bilirubin Negative, Urine Urobilinogen Normal, Ur Leukocyte Esterase Negative, Urine RBC 0-5 SEEN, Urine WBC 0-5 SEEN, Ur Squamous Epith Cells 0-5 SEEN, Urine Bacteria 0SEEN, Urine Mucus 0 SEEN Micro: Microbiology 04/15/25 15:05 Mucosa - Nose SARS-CoV-2, Influenza & RSV (PCR) - Final Radiography Diagnostic Testing: Radiology Impression Chest X-Ray 04/15/25 15:15 IMPRESSION: No Acute Findings. Reading Location[facility] Chest/Abdomen/Pelvis CT 04/15/25 18:05 IMPRESSION: Minimal inflammatory change in the right lower lobe. No acute abnormality. Incidental findings as above Reading Location: [facility] Brain CT 04/15/25 22:32 IMPRESSION: No acute intracranial abnormality. Reading Location: [facility] Physical Exam Const alert Orientation / Consciousness: confused HEENT head/scalp atraumatic Eyes PERRL and EOMs intact bilaterally Neck no lymphadenopathy Resp normal respiratory effort and no use of accessory muscles Cardio regular rate, regular rhythm, S1 normal heart sound and S2 normal heart sound Extremity normal to inspection Neuro moves all extremities, no focal motor deficits and no sensory deficits noted Sensorium / Orientation: alert, oriented to person and oriented to place Speech: Negative for speech normal Psych Mood & Affect: anxious Assessment & Plan Assessment/Plan (1) Fever of unknown origin: (2) Type 2 diabetes mellitus with hyperglycemia: (3) Change in mental status: PLAN: Plan Stroke alert?patient transported to radiology for stat CT scan consult obtained with [facility] neurology. After full evaluation it was agreed that the presentation was more likely secondary to sepsis/infection status rather than acute stroke. Per neurology patient to get MRI brain in the morning. Confusion/altered mental status/febrile illness?continue IV antibiotics and IV fluids and orders as previously written. 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 NIHSS NIHSS Nursing Documentation NIHSS Nursing Documentation: NIHSS: Ischemic Stroke/TIA Start: 04/15/25 22:16 Freq: Status: Active Protocol: Activity Type Activity Date Activity User E-sign Co-sign Detail Recorded Client Recorded Date Recorded By Document 04/15/25 22:17 MG [id number] 04/15/25 22:20 MG 04/15/25 22:17 NIH Stroke Scale [NIHSS] A score of 0 is normal or asymptomatic . Total possible score is 42. Inpatient: RN or Physician to activate a stroke alert for onset of new stroke symptoms or with NIHSS increase >/= 3 points. Following change in neurological status, NIHSS will be performed per physician order or more frequently PRN. -1a. Level of Consciousness 0 - Alert; keenly responsive -1b. LOC Questions 1 - Answers ONE question correctly -1c. LOC Commands 0 - Performs BOTH tasks correctly -2. Best Gaze 0 - Normal -3. Visual 0 - No visual loss -4. Facial Palsy 0 - Normal symmetrical movements -5a. Left Arm 0 - No drift; arm holds 90 ( or 45) degrees for full 10 seconds -5b. Right Arm 0 - No drift; arm holds 90 ( or 45) degrees for full 10 seconds -6a. Left Leg 1 - Drift; leg falls by the end of 5- seconds, but does not hit bed -6b. Right Leg 1 - Drift; leg falls by the end of 5- seconds, but does not hit bed -7. Limb Ataxia 0 - Absent -8. Sensory 0 - Normal; no sensory loss -9. Best Language 1 - Mild-to- moderate aphasia; -10. Dysarthria 1 = Mild-to- moderate dysarthria; -11. Extinction and Inattention 0 - No abnormality -Total 5 Query Text:A score of 0 is normal or asymptomatic. Total possible score is 42 . ED: Notify Physician for NIHSS increase by > / = 3 points. Inpatient: RN or Physician to activate a stroke alert for NIHSS increase of > / = 3 points. Coma Scale [Assess] -Eye Opening Spontaneous -Motor Obeys Commands -Verbal Confused [Total] -Coma Scale Total 14 04/15/25 7290 <Electronically signed by Kavon Schultz MD> Cosigner Signature (if applicable): CC: ~ Signed [facility] Work Phone: [phone] 580-355208-18-2025 Consult note Author Kamini Pritchett [facility] Note Date/Time April 15, 2025 9: 31pm [facility] Medical Records Department [address] [place] [address] Pharmacokinetic/Renal -Consult 04/15/252050 MR#: [id number] Acct: [id number] Name: ASCENCION WEIR Rep #:[id number] : 1950 74 From: Kamini Pritchett PCP: Dr. Mike Solorzano MD Status:ADM IN Location: [place] [address] Consult Antibiotic Management Pharmacy has been consulted to manage selected antibiotic: Vancomycin Type of Intervention Type of Consult: New start Suspected Infection Suspected Infection: Other (Fever of unknown origin with suspected metabolic encephalopathy ) Labs Labs: Sodium 132 mmol/L (133-145) L 04/15/25 14:36 Potassium 4.6 mmol/L (3.3-5.1) 04/15/25 14:36 Chloride 96 mmol/L (98-108) L 04/15/25 14:36 Carbon Dioxide 23.1 mmol/L (21.0-32.0) 04/15/25 14:36 Anion Gap 13 (5-15) 04/15/25 14:36 BUN 13 mg/dL (4-19) 04/15/25 14:36 Creatinine 0.91 mg/dL (0.70-1.20) 04/15/25 14:36 Est GFR (MDRD) Non-Af 88 (>60) 04/15/25 14:36 BUN/Creatinine Ratio 14.6 RATIO (10-20) 04/15/25 14:36 Glucose 125 mg/dL (70-99) H 04/15/25 14:36 Microbiology Microbiology: Microbiology 04/15/25 15:05 Mucosa - Nose SARS-CoV-2, Influenza & RSV (PCR) - Final Dosing Weight Weight used for dosin.3 kg Estimated Creatinine Clearance Estimated Creatinine Clearance: 74.67 Pharmacy Plan for Drug Dosing Pharmacy Plan for Drug Dosing: NEW START IV VANCOMYCIN Consulting Physician: Debora Diaz MD Indication: Fever of unknown origin with suspected metabolic encephalopathy Goal Trough: 15-20 SrCr: 0.91 MG/DL CrCl: 74.67ML/MIN Vancomycin Dose: 1250 mg q12h Pending Level: 04/17/2025 @ 0600 Pharmacy Service will continue to monitor and adjust dosing as required. Follow-Up Labs Follow-Up Labs: Trough: Vancomycin Date/Time Labs Ordered Labs to be done on [date and time ordered]: 04/17/2025 @0600 04/15/252052 <Electronically signed by Kamini sterling> Date _ Kamini Pritchett 04/15/252130 <Electronically signed by Debora Diaz MD> Cosigner Signature (if applicable): Date Debora Diaz MD CC: ~ Signed [facility] Work Phone: 1(547) 856-796608-18-2025 Progress note [facility] Medical Records Department [address] [place] [address] Progress Note - Hospitalist 04/15/255 MR#: [id number] Acct: [id number] Name: ASCENCION WEIR Rep #:[id number] : 1950 74 From: Kavon Schultz MD PCP: Dr. Mike Solorzano MD Status:ADM IN Location: [place] [address] Reason for Visit Chief Complaint: stroke alert Subjective Subjective Stroke team called 10:12 PM as nurse last saw the patient well at 830 approximately and was reevaluating him and found him to be dysarthric and more confused. Stated he had been earlier able to follow conversation fluently but was now struggling to speak coherently. Patient was also more notably agitated. Following stroke protocol patient was sent to radiology for stat CT scan of thebrain and [facility]. Objective Data Objective Data Vital Signs: Vital Signs Temp Pulse Resp BP Pulse Ox O2 Del Method 101.4 F H 111 H 22 H 149/74 H 96 Room Air 04/15/25 21:55 08/18/25 21:55 04/15/25 21:55 04/15/25 21:55 04/15/25 21:55 04/15/25 21:55 Oxygen Delivery Method Room Air Weight: 185 lb 13.595 oz Body Mass Index (BMI) 29.9 Intake & Output: Intake and Output for Last 24 Hours 04/13/25 04/14/25 04/15/25 23:59 23:59 23:59 Intake Total 1130 / 1130 Balance 1130 / 1130 Lab / Micro Data 04/15/25 14:36 04/15/25 14:36 Labs: Laboratory Results - last 24 hr 04/15/25 14:36: WBC 3.1 L, RBC 4.08 L, Hgb 12.6 L, Hct 36.2 L, MCV 88.7, MCH 30.9, MCHC 34.8, RDW Std Deviation 40.6, RDW Coeff of Liang 12.6, Plt Count 100 L,MPV 9.1, Immature Gran % (Auto) 0.700, Neut % (Auto) 83.9 H, Lymph % (Auto) 6.9 L, [place] % (Auto) 7.2, Eos % (Auto) 1.0, Baso % (Auto) 0.3, Absolute Neuts (auto)2.6, Absolute Lymphs (auto) 0.21 L, Nucleated RBC % 0, PT 15.1 H, INR 1.2, APTT 30.3, Sodium 132 L, Potassium 4.6, Chloride 96 L, Carbon Dioxide 23.1, Anion Gap13, BUN 13, Creatinine0.91, Estim Creat Clear Calc 74.67, Est GFR (MDRD) Non-Af88, BUN/Creatinine Ratio 14.6, Glucose 125H, Lactic Acid 1.6, Calcium 9.3, Total Bilirubin 0.52, AST 36, ALT 30, Alkaline Phosphatase 99, Tota l Protein 7.1, Albumin 4.3, Globulin 2.8, Albumin/Globulin Ratio 1.6 04/15/25 15:05: Urine Color Yellow, Urine Clarity Clear, Urine pH 7.0, Ur Specific [place] 1.010, Urine Protein 30 H, Urine Glucose (UA) Normal, Urine Ketones 5 H, Urine Occult Blood 10 H, Urine Nitrite Negative, Urine Bilirubin Negative, Urine Urobilinogen Normal, Ur Leukocyte Esterase Negative, Urine RBC 0-5 SEEN, Urine WBC 0-5 SEEN, Ur Squamous Epith Cells 0-5 SEEN, Urine Bacteria 0SEEN, UrineMucus 0 SEEN Micro: Microbiology 04/15/25 15:05 Mucosa - Nose SARS-CoV-2, Influenza & RSV (PCR) - Final Radiography Diagnostic Testing: Radiology Impression Chest X-Ray 04/15/25 15:15 IMPRESSION: No Acute Findings. Reading [facility] Chest/Abdomen/Pelvis CT 04/15/25 18:05 IMPRESSION: Minimal inflammatory change in the right lower lobe. No acute abnormality. Incidental findings as above Reading [facility] Brain CT 04/15/25 22:32 IMPRESSION: No acute intracranial abnormality. Reading Location: [facility] Physical Exam Const alert Orientation / Consciousness: confused HEENT head/scalp atraumatic Eyes PERRL and EOMs intact bilaterally Neck no lymphadenopathy Resp normal respiratory effort and no use of accessory muscles Cardio regular rate, regular rhythm, S1 normal heart sound and S2 normal heart sound Extremity normal to inspection Neuro moves all extremities, no focal motor deficits and no sensory deficits noted Sensorium / Orientation: alert, oriented to person and oriented to place Speech: Negative for speech normal Psych Mood & Affect: anxious Assessment & Plan Assessment/Plan (1) Fever of unknown origin: (2) Type 2 diabetes mellitus with hyperglycemia: (3) Change in mental status: PLAN: Plan Stroke alert?patient transported to radiology for stat CT scan consult obtained with [facility] neurology. After full evaluation it was agreed that the presentation was more likely secondary to sepsis/infection status rather than acute stroke. Per neurology patient to get MRI brain in the morning. Confusion/altered mental status/febrile illness?continue IV antibiotics and IV fluids and orders aspreviously written. 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 NIHSS NIHSS Nursing Documentation NIHSS Nursing Documentation: NIHSS: Ischemic Stroke/TIA Start: 04/15/25 22:16 Freq: Status: Active Protocol: Activity Type Activity Date Activity User E-sign Co-sign Detail Recorded Client Recorded Date Recorded By Document 04/15/25 22:17 MG [id number] 04/15/25 22:20 MG 04/15/25 22:17 NIH Stroke Scale [NIHSS] A score of 0 is normal or asymptomatic . Total possible score is 42. Inpatient: RN or Physician to activate a stroke alert for onset of new stroke symptoms or with NIHSS increase >/= 3 points. Following change in neurological status, NIHSS will be performed per physician order or more frequently PRN. -1a. Level of Consciousness 0 - Alert; keenly responsive -1b. LOC Questions 1 - Answers ONE question correctly -1c. LOC Commands 0 - Performs BOTH tasks correctly -2. Best Gaze 0 - Normal -3. Visual 0 - No visual loss -4. Facial Palsy 0 - Normal symmetrical movements -5a. Left Arm 0 - No drift; arm holds 90 ( or 45) degrees for full 10 seconds -5b. Right Arm 0 - No drift; arm holds 90 ( or 45) degrees for full 10 seconds -6a. Left Leg 1 - Drift; leg falls by the end of 5- seconds, but does not hit bed -6b. Right Leg 1 - Drift; leg falls by the end of 5- seconds, but does not hit bed -7. Limb Ataxia 0 - Absent -8. Sensory 0 - Normal; no sensory loss -9. Best Language 1 - Mild-to- moderate aphasia; -10. Dysarthria 1 = Mild-to- moderate dysarthria; -11. Extinction and Inattention 0 - No abnormality -Total 5 Query Text:A score of 0 is normal or asymptomatic. Total possible score is 42 . ED: Notify Physician for NIHSS increase by > / = 3 points. Inpatient: RN or Physician to activate a stroke alert for NIHSS increase of > / = 3 points. Coma Scale [Assess] -Eye Opening Spontaneous -Motor Obeys Commands -Verbal Confused [Total] -Coma Scale Total 14 04/15/25 2310 Cosigner Signature (if applicable): CC: ~ Signed [facility]08-18-2025 Radiology Diagnostic study note [facility] Imaging Services [address] [place], [place] [id number] STROKE CTA Head AND Neck W/Con MR#: [id number] Acct: [id number] Name: ASCENCION WEIR Rep #: [id number] : 1950 M 74 From: Surjit Fry MD PCP: Dr. Mike Solorzano MD Status: ADM IN Study:STROKE CTA Head AND Neck W/Con Date of Exam: 04/15/25 Exam# [id number] Ordering Dr: Kavon Schultz MD PROCEDURE: STROKE CTA HEAD AND NECK W/CON 04/15/2025 REASON FOR EXAM: CHANGE IN MENTATION TECHNIQUE: STROKE CTA HEAD AND NECK W/CON Multiplanar Sagittal and Coronal images were obtained. 3D and MIP post processing was performed. One or more dose reduction techniques were used (e.g., Automated exposure control, adjustment of the mA and/or kV according to patient size, use of iterative reconstruction technique). RADIATION DOSE SUMMARY: DLP: 865.11 mGycm COMPARISON: CTA head/neck 03/29/2024. FINDINGS: CTA HEAD: Patent intracranial arterial vasculature. No large vessel occlusion, flow- limiting stenosis, saccular aneurysm, or vascular malformation identified. Major dural venous sinuses are patent. CTA NECK: Left vertebral artery arises directly from the aortic arch. Bilateral cervical carotid and vertebral arteries are patent. No aneurysm or dissection. Atherosclerotic plaque at the carotid artery bifurcations extending into the proximal ICAs, greater on the right with moderate stenosis of the proximal right ICA. More mild less than50% stenosis of the proximal left ICA. Atherosclerotic calcification along the carotid siphons and distal vertebral artery V4 segments without significant luminal narrowing. Dominant right vertebral artery with hypoplastic distal V4 segment of the left vertebralartery, anatomic variation. NON-ANGIOGRAPHIC FINDINGS: Mild mucosal thickening in the floors of the maxillary sinuses. Mild multileveldegenerative changesof the visualized cervicothoracic spine with anterior bridging osteophytosis compatible with DISH. CT/STROKE CTA Head AND Neck W/Con IMPRESSION: 1. No large vessel arterial occlusion or high-grade stenosis. 2. Atherosclerotic plaque at the carotid bifurcations with moderate stenosis of the proximal right ICA, and mild less than 50% stenosis of the proximal left ICA. Reading Location: [id number] CC: Dr. Mike Solorzano MD; Dr. Kavon Schultz MD ~ Milking System Installer: Signed [facility]08-18-2025 Radiology Diagnostic study note [facility] Imaging Services [address] [place], [place] [id number] STROKE Brain/Head without Cont MR#: [id number] Acct: [id number] Name: ASCENCION WEIR Rep #: [id number] : 1950 M 74 From: Surjit Fry MD PCP: Dr. Mike Solorzano MD Status: ADM IN Study:STROKE Brain/Head without Cont Date of Exam: 04/15/25 Exam# [id number] Ordering Dr: Kavon Schultz MD PROCEDURE: STROKE CT BRAIN/HEAD WITHOUT CONTRAST 04/15/2025 REASON FOR EXAM: CHANGE OF MENTATION TECHNIQUE: STROKE CT BRAIN/HEAD WITHOUT CONT Coronal and Sagittal reconstruction series were provided. One or more dose reduction techniques were used (e.g., Automated exposure control, adjustment of the mA and/or kV according to patient size, use of iterative reconstruction technique. RADIATION DOSE SUMMARY: CTDlvol: 44.99 mGy DLP: 914.22 mGycm COMPARISON: 03/29/2024. FINDINGS: No acute intracranial hemorrhage, extra-axial collection, mass effect or evidence of acute infarct. Mild generalized brain parenchymal volume loss, and chronic microangiopathic changes. Nonspecific mineralization in the bilateral basal ganglia. Atherosclerotic vascular calcifications. Absent marshall ocular lenses. Intact skull base and calvarium. Well-aerated paranasal sinuses and mastoid air cells. Small left maxillary sinus mucous retention cysts/polyps. CT/STROKE Brain/Head without Cont IMPRESSION: No acute intracranial abnormality. Reading Location: [facility] CC: Dr. Mike Solorzano MD; Dr. Kavon Schultz MD ~ Milking System Installer: Signed [facility]08-18-2025 History and physical note Author Debora Diaz [facility] Note Date/Time April 15, 2025 8: 08pm [facility] Medical Records Department [address] [place] [address] H&P Exam - Hospitalist 04/15/251936 MR#: [id number] Acct: [id number] Name: ASCENCION WEIR Rep #:[id number] : 1950 74 From: Debora Diaz MD PCP: Dr. Mike Solorzano MD Status:ADM IN Location: [place] [address] HPI - General General Date of Admission: 04/15/25 Date of Service: 04/15/25 Chief Complaint: Confusion, dry cough HPI Narrative ASCENCION WEIR, is a 74-year-old male with a history of CABG, BPH, diabetes, aortic valve replacement, chronic back pain, LIAN, hypertension who presented to [facility] ED 04/15/2025 with confusion, shakes, sweats that started overnight. Patient had been in his usual health until sometime last night when he became a little bit confused, starting this morning his confusion increased and he was having shaking episodes and sweats. He was brought to the ED and temp noted to be 103.6, heart rate 112, blood pressure 156/53, respiratory rate 18 and pulse ox 95% on room air. CBC with a white blood cell count of 3.1, hemoglobin 12.6 and platelet count of 100. CMP with sodium of 132, chloride 96 and glucose 125 with normal liver panel and kidney function, UAnot suggestive of UTI. Chest x-ray with no acute findings. Lactic acid 1.6. Patient was persistently febrile so cultures obtained and he was started on vancomycin and hospitalist contacted for admission. Did order chest/abdomen/pelvis CT with IV contrast to be done in the ED to try to identifysource however this only revealed minimal inflammatory change in the right lowerlobe. Patient evaluated with family members at bedside, they confirm history asabove, patient's only specific complaint aside from that that was new was a little bit of a cough since yesterday that has not been productive, no diarrhea or abdominal pain, has chronic back pain and this is not necessarily acutely changed. Does feel little bit weaker but this is not focal in nature. Family member at bedside notes he had a rash on his lower extremities 2 weeks ago that they thought might of been poison josie, this was treated by PCP and resolved. Patient also notes he had tripped a couple of times recently and fell on his knees, at one point his right knee had been a little bit swollen after a fall however that is resolved and there is no more swelling, erythema, pain, redness or evidence of any joint infection. Patient denies any open wounds with any drainage. Does follow with Dr. Johnson for pain management. Of note family at bedside says mental status is pretty much back to baseline now. 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 Pericardial effusion [...] history: Does Not Take Ibuprofen ROS ROS Narrative General: Fevers this morning and potentially last night HENT: Denies headache, denies stuffy nose, denies sore throat EYES: Denies changes in vision Resp: Slight dry cough, denies shortness of breath Cardiac: Denies chest pain GI: Denies abdominal pain, denies changes in bowel, denies nausea/vomiting : Denies changes in urination Extremity: Denies swelling MSK: Some generalized weakness, chronic back pain Neuro: Denies any numbness/tingling Heme: Easy bruising Skin: Had rash 2 weeks ago that is virtually resolved Psychiatric: No complaints voiced Vital Signs Vital Signs Vital Signs: 04/15/25 14:09 04/15/25 14:09 04/15/25 [...] Air Room Air Room Air 04/15/25 18:34 04/15/25 19:00 04/15/25 19:20 Temperature 102.7 F H 101.5 F H Temperature Source Core Pulse Rate 112 H 100 Respiratory Rate 20 H 18 Respiratory Pattern Blood Pressure 137/106 H 137/106 H Blood Pressure Mean 116 116 Pulse Ox 93 92 95 Oxygen Delivery Method Room Air Room Air Weight Weight: 95.4 kg Body Mass Index (BMI) 33.9 Physical Exam Narrative General: Alert, oriented, no apparent distress HEENT: Atraumatic, normocephalic Eyes: Anicteric, normal conjunctiva, extraocular movements grossly intact Neck: Supple Respiratory: Clear to auscultation bilaterally, normal respiratory effort Cardiovascular: Low-grade sinus tachycardia GI: Soft, nontender, nondistended Extremities: No edema Musculoskeletal: Moving all extremities Neuro: No overt focal neurological deficits Skin: No acute rashes appreciated, scattered bruising Psych: Cooperative Results Lab / Micro Data 04/15/25 14:36 04/15/25 14:36 Labs: Laboratory Results - last 24 hr 04/15/25 14:36: WBC 3.1 L, RBC 4.08 L, Hgb 12.6 L, Hct 36.2 L, MCV 88.7, MCH 30.9, MCHC 34.8, RDW Std Deviation 40.6, RDW Coeff of Liang 12.6, Plt Count 100 L,MPV 9.1, Immature Gran % (Auto) 0.700, Neut % (Auto) 83.9 H, Lymph % (Auto) 6.9 L, [place] % (Auto) 7.2, Eos % (Auto) 1.0, Baso % (Auto) 0.3, Absolute Neuts (auto)2.6, Absolute Lymphs (auto) 0.21 L, Nucleated RBC % 0, PT 15.1 H, INR 1.2, APTT 30.3, Sodium 132 L, Potassium 4.6, Chloride 96 L, Carbon Dioxide 23.1, Anion Gap13, BUN 13, Creatinine 0.91, Estim Creat Clear Calc 74.67, Est GFR (MDRD) Non-Af88, BUN/Creatinine Ratio 14.6, Glucose 125 H, Lactic Acid 1.6, Calcium 9.3, Total Bilirubin 0.52, AST 36, ALT 30, Alkaline Phosphatase 99, Total Protein 7.1, Albumin 4.3, Globulin 2.8, Albumin/Globulin Ratio 1.6 04/15/25 15:05: Urine Color Yellow, Urine Clarity Clear, Urine pH 7.0, Ur Specific [place] 1.010, Urine Protein 30 H, Urine Glucose (UA) Normal, Urine Ketones 5 H, Urine Occult Blood 10 H, Urine Nitrite Negative, Urine Bilirubin Negative, Urine Urobilinogen Normal, Ur Leukocyte Esterase Negative, Urine RBC 0-5 SEEN, Urine WBC 0-5 SEEN, Ur Squamous Epith Cells 0-5 SEEN, Urine Bacteria 0SEEN, Urine Mucus 0 SEEN Micro: Microbiology 04/15/25 15:05 Mucosa - Nose SARS-CoV-2, Influenza & RSV (PCR) - Final Imaging Radiology Impression Chest X-Ray 04/15/25 15:15 IMPRESSION: No Acute Findings. Reading Location: [facility] Chest/Abdomen/Pelvis CT 04/15/25 18:05 IMPRESSION: Minimal inflammatory change in the right lower lobe. No acute abnormality. Incidental findings as above Reading Location: [facility] Assessment & Plan Assessment/Plan (1) Fever of unknown origin: PLAN: Plan # Fever of unknown origin with suspected metabolic encephalopathy -Fever 103 to 1-4 in the ED and patient had been confused, temp down to 101 on my evaluation and mental status almost back to baseline per family -CT chest/abdomen/pelvis only show some mild inflammatory changes in right lowerlobe -Query if there could be a viral component to this given dry cough and sudden nature of symptoms pretty much negative ROS otherwise -Will check respiratory panel -Patient COVID/flu/RSV negative -Blood cultures pending -Will continue broad-spectrum antibiotics while awaiting further above workup -Will consult ID given the above and no current origin of patient's fever -No warm swollen joints, no draining lesions, no abdominal pain, back pain is atbaseline and no recent head trauma # Pancytopenia - Unclear chronicity - Repeat in the a.m., possibly due to infection - If patient remains pancytopenic may need referral for outpatient evaluation #Type 2 diabetes mellitus -Glucose checks and sliding scale insulin #Hypertension - Blood pressure a little bit lower now that patient's fever improving, will hold home antihypertensives while awaiting the above #Chronic BPH with obstruction -Continue home medications #Hx of CAD and AV replacement -w/ previous CABG -Continue home medications #LIAN -Continue home cpap -Pt reports compliance #Hx chronic back pain -W/ previous surgery and spinal stim -Denies any recent new or acute complaints -Follows w/ Dr. Johnson on outpt basis #DVT ppx: Lovenox subcu Debora Diaz MD Charges/Coding Visit Charges Inpatient E&M: 12049 Init Hosp L2 04/15/252007 <Electronically signed by Debora Diaz MD> Cosigner Signature (if applicable): CC: Dr. Mike Solorzano MD; Dr. Debora Diaz MD~ Signed [facility] Work Phone: 1(330) 949-269708-18-2025 Evaluation note* Diagnosis Onset Date Resolution Status Admit Date Change in mental status acute A ugust 2024 7:38pm Fever of unknown origin acute A ugust 2024 7:38pm MRSA bacteremia acute April 152024 7:38pm SIRS (systemic inflammatory response syndrome) acute April 15, 2025 7:38pm Type 2 diabetes mellitus wit h hyperglycemia acute April 15 7:38pm History of aortic valve replacement chronic April 15 7:38pm [facility] Work Phone: 1(844) 261-834908-18-2025 Consult note [facility] Medical Records Department [address] [place] [address] Pharmacokinetic/Renal -Consult 04/15/252050 MR#: [id number] Acct: [id number] Name: ASCENCION WEIR Rep #:[id number] : 1950 74 From: Kamini Pritchett PCP: Dr. Mike Solorzano MD Status:ADM IN Y Location: [place] [address] Consult Antibiotic Management Pharmacy has been consulted to manage selected antibiotic: Vancomycin Type of Intervention Type of Consult: New start Suspected Infection Suspected Infection: Other (Fever of unknown origin with suspected metabolic encephalopathy ) Labs Labs: Sodium 132 mmol/L (133-145) L 04/15/25 14:36 Potassium 4.6 mmol/L (3.3-5.1) 04/15/25 14:36 Chloride 96 mmol/L (98-108) L 04/15/25 14:36 Carbon Dioxide 23.1 mmol/L (21.0-32.0) 04/15/25 14:36 Anion Gap 13 (5-15) 04/15/25 14:36 BUN 13 mg/dL (4-19) 04/15/25 14:36 Creatinine 0.91 mg/dL (0.70-1.20) 04/15/25 14:36 Est GFR (MDRD) Non-Af 88 (>60) 04/15/25 14:36 BUN/Creatinine Ratio 14.6 RATIO (10-20) 04/15/25 14:36 Glucose 125 mg/dL (70-99) H 04/15/25 14:36 Microbiology Microbiology: Microbiology 04/15/25 15:05 Mucosa - Nose SARS-CoV-2, Influenza & RSV (PCR) - Final Dosing Weight Weight used for dosin.3 kg Estimated Creatinine Clearance Estimated Creatinine Clearance: 74.67 Pharmacy Plan for Drug Dosing Pharmacy Plan for Drug Dosing: NEW START IV VANCOMYCIN Consulting Physician: Debora Diaz MD Indication: Fever of unknown origin with suspected metabolic encephalopathy Goal Trough: 15-20 SrCr: 0.91 MG/DL CrCl: 74.67ML/MIN Vancomycin Dose: 1250 mg q12h Pending Level: 04/17/2025 @ 0600 Pharmacy Service will continue to monitor and adjust dosing as required. Follow-Up Labs Follow-Up Labs: Trough: Vancomycin Date/Time Labs Ordered Labs to be done on [date and time ordered]: 04/17/2025 @0600 04/15/252052 ey> Date _ Kamini Pritchett 04/15/252130 > Cosigner Signature (if applicable): Date Debora Diaz MD CC: ~ Signed [facility]08-18-2025 Discharge summary Author Omeraylin Boo [facility] Note Date/Time April 15, 2025 6: 35pm [facility] Medical Records Department [address] [place] [address] Emergency Department Summary 04/15/25 MR#: [id number] Acct: [id number] Name: ASCENCION WEIR Rep #:[id number] : [...] Prior similar symptoms: No Recent Illness/Hospitalization: No PFSH PFSH Medical History Right carotid bruit History of tenosynovitis Former smoker H/O methicillin resistant Staphylococcus aureus infection Arthritis Swelling of joint of left hand Hearing problem Cataracts, bilateral Back problem Arthritis HLD (hyperlipidemia) Hyponatremia Near syncope Lightheaded Chest wall pain Postoperative atrial fibrillation 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 Rate is 113. VT 136 ms per QRS duration 72 ms her QT duration 276 ms. Blanco is normal. There is artifact the computer [...] kg/sq m Disposition Disposition: Acute Care Hospital [facility] What to do if you have Problems For any increased pain, shortness of breath, bleeding, nausea or vomiting, chestpain, or any unexpected problems, contact your Primary Care Provider. Call [facility] ([phone]) or report to the closest Emergency Room. Call 911 if necessary. 04/15/251834 <Electronically signed by Omer Boo MD> Cosigner Signature (if applicable): CC: Dr. Mike Solorzano MD ~ Signed [facility] Work Phone: 1(469) 436-907608-18-2025 History and physical note [facility] Medical Records Department [address] [place] [address] H&P Exam - Hospitalist 04/15/251936 MR#: [id number] Acct: [id number] Name: ASCENCION WEIR Rep #:[id number] : 1950 74 From: Debora Diaz MD PCP: Dr. Mike Solorzano MD Status:ADM IN Location: [facility] [id number]- 1 HPI - General General Date of Admission: 04/15/25 Date of Service: 04/15/25 Chief Complaint: Confusion, dry cough HPI Narrative ASCENCION WIER, is a 74-year-old male with a history of CABG, BPH, diabetes, aortic valve replacement, chronic back pain, LIAN, hypertension who presented to [facility] ED 04/15/2025with confusion, shakes, sweats that started overnight. Patient had been in his usual health until sometime last night when he became a little bit confused, starting this morning his confusion increased and he was having shaking episodes and sweats. He was brought to the ED and temp noted to be 103.6, heart rate 112, blood pressure 156/53, respiratory rate 18 and pulse ox 95% on room air. CBC witha white blood cell count of 3.1, hemoglobin 12.6 and platelet count of 100. CMP with sodium of 132, chloride 96 and glucose 125 with normal liver panel and kidney function, UAnot suggestive of UTI. Chest x-ray with no acute findings. Lactic acid 1.6. Patient was persistently febrile so cultures obtained and he was started on vancomycin and hospitalist contacted for admission. Did order chest/abdomen/pelvis CT with IV contrast to be done in the ED to try to identifysource however this only revealed minimal inflammatory change in the right lowerlobe. Patient evaluated with family members at bedside, they confirm history asabove, patient's only specific complaint aside from that that was new was a little bit of a cough since yesterday that has not been productive, no diarrhea or abdominal pain, has chronic back pain and this is not necessarily acutely changed. Does feel little bit weaker but this is not focal in nature. Family member at bedside notes he had a rash on his lower extremities 2 weeks ago that they thought might of been poison josie, this was treated by PCP and resolved. Patient also notes he had tripped a couple of times recently and fell on his knees, at one point his right knee had been a little bit swollen after a fall however that is resolved and there is no more swelling, erythema, pain, redness or evidence of any joint infection. Patient denies any open wounds with any drainage. Does follow with Dr. Johnson for pain management. Of note family at bedside says mental status is pretty much back to baseline now. 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 Pericardial effusion [...] history: Does Not Take Ibuprofen ROS ROS Narrative General: Fevers this morning and potentially last night HENT: Denies headache, denies stuffy nose, denies sore throat EYES: Denies changes in vision Resp: Slight dry cough, denies shortness of breath Cardiac: Denies chest pain GI: Denies abdominal pain, denies changes in bowel, denies nausea/vomiting : Denies changes in urination Extremity: Denies swelling MSK: Some generalized weakness, chronic back pain Neuro: Denies any numbness/tingling Heme: Easy bruising Skin: Had rash 2 weeks ago that is virtually resolved Psychiatric: No complaints voiced Vital Signs Vital Signs Vital Signs: 04/15/25 14:09 04/15/25 14:09 04/15/25 [...] Air Room Air Room Air 04/15/25 18:34 04/15/25 19:00 04/15/25 19:20 Temperature 102.7 F H 101.5 F H Temperature Source Core Pulse Rate 112 H 100 Respiratory Rate 20 H 18 Respiratory Pattern Blood Pressure 137/106 H 137/106 H Blood Pressure Mean 116 116 Pulse Ox 93 92 95 Oxygen Delivery Method Room Air Room Air Weight Weight: 95.4 kg Body Mass Index (BMI) 33.9 Physical Exam Narrative General: Alert, oriented, no apparent distress HEENT: Atraumatic, normocephalic Eyes: Anicteric, normal conjunctiva, extraocular movements grossly intact Neck: Supple Respiratory: Clear to auscultation bilaterally, normal respiratory effort Cardiovascular: Low-grade sinus tachycardia GI: Soft, nontender, nondistended Extremities: No edema Musculoskeletal: Moving all extremities Neuro: No overt focal neurological deficits Skin: No acute rashes appreciated, scattered bruising Psych: Cooperative Results Lab / Micro Data 04/15/25 14:36 04/15/25 14:36 Labs: Laboratory Results - last 24 hr 04/15/25 14:36: WBC 3.1 L, RBC 4.08 L, Hgb 12.6 L, Hct 36.2 L, MCV 88.7, MCH 30.9, MCHC 34.8, RDW Std Deviation 40.6, RDW Coeff of Liang 12.6, Plt Count 100 L,MPV 9.1, Immature Gran % (Auto) 0.700, Neut % (Auto) 83.9 H, Lymph % (Auto) 6.9 L, [place] % (Auto) 7.2, Eos % (Auto) 1.0, Baso % (Auto) 0.3, Absolute Neuts (auto)2.6, Absolute Lymphs (auto) 0.21 L, Nucleated RBC % 0, PT 15.1 H, INR 1.2, APTT 30.3, Sodium 132 L, Potassium 4.6, Chloride 96 L, Carbon Dioxide 23.1, Anion Gap13, BUN 13, Creatinine0.91, Estim Creat Clear Calc 74.67, Est GFR (MDRD) Non-Af88, BUN/Creatinine Ratio 14.6, Glucose 125H, Lactic Acid 1.6, Calcium 9.3, Total Bilirubin 0.52, AST 36, ALT 30, Alkaline Phosphatase 99, Tota l Protein 7.1, Albumin 4.3, Globulin 2.8, Albumin/Globulin Ratio 1.6 04/15/25 15:05: Urine Color Yellow, Urine Clarity Clear, Urine pH 7.0, Ur Specific [place] 1.010, Urine Protein 30 H, Urine Glucose (UA) Normal, Urine Ketones 5 H, Urine Occult Blood 10 H, Urine Nitrite Negative, Urine Bilirubin Negative, Urine Urobilinogen Normal, Ur Leukocyte Esterase Negative, Urine RBC 0-5 SEEN, Urine WBC 0-5 SEEN, Ur Squamous Epith Cells 0-5 SEEN, Urine Bacteria 0SEEN, UrineMucus 0 SEEN Micro: Microbiology 04/15/25 15:05 Mucosa - Nose SARS-CoV-2, Influenza & RSV (PCR) - Final Imaging Radiology Impression Chest X-Ray 04/15/25 15:15 IMPRESSION: No Acute Findings. Reading Location: [facility] Chest/Abdomen/Pelvis CT 04/15/25 18:05 IMPRESSION: Minimal inflammatory change in the right lower lobe. No acute abnormality. Incidental findings as above Reading Location: [facility] Assessment & Plan Assessment/Plan (1) Fever of unknown origin: PLAN: Plan # Fever of unknown origin with suspected metabolic encephalopathy -Fever 103 to 1-4 in the ED and patient had been confused, temp down to 101 on my evaluation and mental status almost back to baseline per family -CT chest/abdomen/pelvis only show some mild inflammatory changes in right lowerlobe -Query if there could be a viral component to this given dry cough and sudden nature of symptoms pretty much negative ROS otherwise -Will check respiratory panel -Patient COVID/flu/RSV negative -Blood cultures pending -Will continue broad-spectrum antibiotics while awaiting further above workup -Will consult ID given the above and no current origin of patient's fever -No warm swollen joints, no draining lesions, no abdominal pain, back pain is atbaseline and no recent head trauma # Pancytopenia - Unclear chronicity - Repeat in the a.m., possibly due to infection - If patient remains pancytopenic may need referral for outpatient evaluation #Type 2 diabetes mellitus -Glucose checks and sliding scale insulin #Hypertension - Blood pressure a little bit lower now that patient's fever improving, will hold home antihypertensives while awaiting the above #Chronic BPH with obstruction -Continue home medications #Hx of CAD and AV replacement -w/ previous CABG -Continue home medications #LIAN -Continue home cpap -Pt reports compliance #Hx chronic back pain -W/ previous surgery and spinal stim -Denies any recent new or acute complaints -Follows w/ Dr. Johnson on outpt basis #DVT ppx: Lovenox subcu Debora Diaz MD Charges/Coding Visit Charges Inpatient E&M: 69308 Init Hosp L2 04/15/252007 Cosigner Signature (if applicable): CC: Dr. Mike Solorzano MD; Dr. Debora Diaz MD~ Signed [facility]08-18-2025 Radiology Diagnostic study note [facility] Imaging Services [address] [place] [address] CT Chest, Abd, Pel w/Contrast MR#: [id number] Acct: [id number] Name: ASCENCION WEIR Rep #: [id number] : 1950 M 74 From: Cm Judge MD PCP: Dr. Mike Solorzano MD Status: REG ER Study:CT Chest, Abd, Pel w/Contrast Date of E xam: 04/15/25 Exam# [id number] Ordering Dr: Clive Diaz MD PROCEDURE: CT [...] abnormality. Incidental findings as above Reading [facility] CC: Dr. Mike Solorzano MD; Dr. Debora Diaz MD ~ Milking System Installer: Signed [facility]08-18-2025 Radiology Diagnostic study note [facility] Imaging Services [address] [place] [id number] Chest 1 View (Portable) MR#: [id number] Acct: [id number] Name: ASCENCION WEIR Rep #: [id number] : 1950 M 74 From: Noah Torres MD PCP: Dr. Mike Solorzano MD Status: REG ER Study:Chest 1 View (Portable) Date of Exam: 04/15/25 Exam# [id number] Ordering Dr: Kadi Boo MD PROCEDURE: CHEST 1 VIEW (PORTABLE) 04/15/2025 REASON FOR EXAM: TACHYPNEA TECHNIQUE: Frontal view of the chest. COMPARISON: 03/16/2022 chest x-ray FINDINGS: Hardware: Sternotomy wires are present. Heart: The heart size is normal. Lungs: The lungs are clear. Bones: The bones are unremarkable. RAD/Chest 1 View (Portable) IMPRESSION: No Acute Findings. Reading Location: [facility] CC: Dr. Mike Solorzano MD; Dr. Omer Boo MD ~ Milking System Installer: Signed [facility]08-18-2025 Discharge summary [facility] Medical Records Department [address] [place] [address] Emergency Department Summary 04/15/25 MR#: [id number] Acct: [id number] Name: ASCENCION WEIR Rep #:[id number] : [...] history of coronary artery disease statuspost bypass surgery,carotid artery disease, pericardial effusion, postoperativeatrial fibrillation, hyperlipidemia, asthmatic bronchitis, obstructive sleep apnea, type 2 diabetes, essential hypertension who presents from nursing facility because of not feeling well and weakness. Patient was unaware that he had a temperature 103.2. His only complaints on review of system is intermittent headache, cough that is nonproductive and frequency. Prior similar symptoms: No Recent Illness/Hospitalization: No PFSH PFSH Medical History Right carotid bruit History of tenosynovitis Former smoker H/O methicillin resistant Staphylococcus aureus infection Arthritis Swelling of joint of left hand Hearing problem Cataracts, bilateral Back problem Arthritis HLD (hyperlipidemia) Hyponatremia Near syncope Lightheaded Chest wall pain Postoperative atrial fibrillation Atherosclerotic heart disease of marshall coronary artery without angina pectoris Pericardial effusion [...] obvious distress. His vital signs are remarkable fortachycardia, tachypnea and temperature of 103.2 ?F. Heis [...] normoactive bowel sounds, non-distended and no masses; Negativefor non-tender or hepatosplenomegaly Palpation: soft and tender [...] is urinary. However with him beingtachypneic and havinga cough will obtain chest x-ray to evaluate [...] Rodriges.), Prior ED visit (He was seen int ER January 2023 for right thigh pain. [...] 83.9 H Lymph % (Auto) 6.9 L [place] % (Auto) 7.2 Eos % (Auto) 1.0 [...] Clarity Clear Urine pH 7.0 Ur Specific [place] 1.010 Urine Protein 30 H Urine Glucose [...] frequent paced rhythms noted. Rate is 113. VT 136 ms per QRS duration 72 ms her QT duration 276 ms. Blanco is normal. There is artifact the computeris reading consider an Fery or ischemia.) Management Discussion w/another healthcare provider: Hospitalist (Dr. Claudia Diaz the hospitalist was paged for admission. Fever of unknown etiology with encephalopathy) Treatment and Re-Evaluation :: patient initially received Rocephin since the concern was possible respiratory or urologic etiologyin light of him having a cough shortness [...] kg/sq m Disposition Disposition: Acute Care Hospital [facility] What to do if you have Problems For any increased pain, shortness of breath, bleeding, nausea or vomiting, chestpain, or any unexpected problems, contact your Primary Care Provider. Call [facility] ([phone]) or report tothe closest Emergency Room. Call 911 if necessary. 04/15/251834 Cosigner Signature (if applicable): CC: Dr. Mike Solorzano MD ~ Signed [facility]08-18-2025 Discharge summary Author Omer Boo [facility] Note Date/Time April 15, 2025 6: 35pm [facility] Medical Records Department [address] [place] [address] Emergency Department Summary 04/15/25 MR#: [id number] Acct: [id number] Name: ASCENCION WEIR Rep #:[id number] : [...] Prior similar symptoms: No Recent Illness/Hospitalization: No [facility] Medical History Right carotid bruit History of tenosynovitis Former smoker H/O methicillin resistant Staphylococcus aureus infection Arthritis Swelling of joint of left hand Hearing problem Cataracts, bilateral Back problem Arthritis HLD (hyperlipidemia) Hyponatremia Near syncope Lightheaded Chest wall pain Postoperative atrial fibrillation 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 Rate is 113. VT 136 ms per QRS duration 72 ms her QT duration 276 ms. Blanco is normal. There is artifact the computer [...] kg/sq m Disposition Disposition: Acute Care Hospital [facility] What to do if you have Problems For any increased pain, shortness of breath, bleeding, nausea or vomiting, chestpain, or any unexpected problems, contact your Primary Care Provider. Call [facility] ([phone]) or report to the closest Emergency Room. Call 911 if necessary. 04/15/251834 <Electronically signed by Omer Boo MD> Cosigner Signature (if applicable): CC: Dr. Mike Solorzano MD ~ Signed [facility] Work Phone: 1(904) 496-859608-04-2025 NoteHNO ID: [id number] Author: LISA QUINTANILLA MD Service: ? Author Type: Physician Type: Progress Notes Filed: 04/01/2025 10:52 Note Text: URGENT CARE [facility] Ascencion Weir is a 74 year old [...] for the following reason(s): HANDP not [facility] History of Present illness Narrative* Lisa Quintanilla MD - 04/01/2025 10:47 AM EDT URGENT CARE [facility] Ascencion Weir is a 74 year old [...] today. He is out tomorrow. Vidhya Juárez [facility] March 08, 2025 9:48 AM documented in [...] today. He is out tomorrow. Vidhya Juárez [facility] March 08, 2025 9:48 AM [facility] [...] 02/11/25 Future visit scheduled: yes PHARMACY: [facility]. [facility] Telephone encounter Note * Telephone Encounter - Veronica Chow - 02/18/2025 11:57 AM EDT Patient requesting medication tramadol hcl(ULTRAM 50 MG TAB) Patient last seen 02/11/25 Future visit scheduled: yes [facility]ACY: [facility] [facility]06-18-20[facility] History of Present illness Narrative* Nadege Seo MA - 02/13/2025 1:40 PM EDT POPULATION HEALTH NAVIGATION OUTREACH Action/ Schedule medicare wellness and 6 month f/u [...] Medicare Annual Wellness Visit HBA1C 07/17/2025 in [facility] with AARON SOLORZANO - medicare wellness HCC related Navigation Signature: Nadege Seo MA February 13, 2025 1:40 PM documented in this encounterC[facility]06-18-2025 NoteHNO ID: [id number] Author: NADEGE SEO MA Service: ? Author Type: Gage Designer Type: Progress Notes Filed: 02/13/2025 13:51 Note [...] Medicare Annual Wellness Visit HBA1C 07/17/2025 in [facility] with AARON SOLORZANO medicare wellness HCC related Navigation Signature: Nadege Seo MA February 13, 2025 1:40 [facility]06-18-2025 NotePatient Outreach (NETNAV) ASCENCION WEIR ([id number]) 1950 M Date Time Provider Department 02/13/25 NADEGE SEO During your visit today, we recorded the [...] Medicare Annual Wellness Visit HBA1C 07/17/2025 in [facility] with AARON SOLORZANO - medicare wellness HCC related Navigation Signature: Nadege Seo MA February 13, 2025 1:40 PM Allergies As of Date: 02/13/2025 Noted Allergy Reaction ENTEX PSE (PSEUDOEPHEDRINE-GUAIFE*08/11/2007 5 - Intolerance Comments: Patient states he does not have any allergies Date Reviewed: 02/11/2025 Reviewed by: Vernell Hernandez LPN - Fully Assessed Reason for Visit: Population Health Navigation Outreach [3910] Cmt: ACO WORKBEISATU VALLECILLO PCSA Prescriptions as of 02/13/2025 - gabapentin [...] stenosis [I35.0] 05/31/2019 Coronary artery disease involving marshall malik*09/18/2020 Thrombocytopenia (HCC) [D69.6] 01/07/2023 Longstanding persistent atrial fibrillation (HC*01/07/2023 Peripheral arterial disease (HCC) [I73.9] 06/16/2023 Encounter Status:Closed by NADEGE SEO on 02/13/25[facility]06-[facility] NoteHNO ID: [id number] Author: AARON SOLORZANO MD Service: ? Author Type: Physician Type: Progress Notes Filed: 02/12/2025 10:25 Note Text: Carlota Weir is a 74-year-old male presenting for [...] Under the care of Dr. Johnson, a scene painter in [place]. - Recent x-rays performed for Dr. Johnson. [...] recent epidural steroid injection by Dr. Johnson, scene painter, provided partial relief. - Pain radiates to the hip, particularly on the right side, limiting mobility. - Currently managed with tramadol as needed. - Provided a letter for [employer] parking due to significant mobility limitations. - [...] June to monitor hemoglobin levels. Recording using Keenjar software for draft documentation of the visit was discussed with the patient/authorized financial services sales representative; all questions welcomed and answered. Patient/authorized financial services sales representative agreed to proceed Office Visit on 02/11/25 HEMOGLOBIN A1C COMPREHENSIVE METABOLIC PANEL LIPID PANEL, FASTING COMPLETE BLOOD COUNT Requested Prescriptions No prescriptions requested or ordered in this encounter Aaron Solorzano, [facility]06-17-2025 History of Present illness Narrative* [...] Under the care of Dr. Johnson, a scene painter in [place]. - Recent x-rays performed for Dr. Johnson. [...] recent epidural steroid injection by Dr. Johnson, scene painter, provided partial relief. - Pain radiates to the hip, particularly on the right side, limiting mobility. - Currently managed with tramadol as needed. - Provided a letter for [employer] parking due to significant mobility limitations. - [...] June to monitor hemoglobin levels. Recording using Keenjar software for draft documentation of the visit was discussed with the patient/authorized financial services sales representative; all questions welcomed and answered. Patient/authorized financial services sales representative agreed to proceed Office Visit on [...] calling: self Call patient at: on cell [phone] (home) Was an appointment scheduled: No Closing [...] calling: self Call patient at: on cell [phone] (home) Was an appointment scheduled: No Closing statement: Results or non-symptom based questions: Thank you for calling [facility], your call will be returned within the next business day. Veronica Chow [facility]05-07-2025 Telephone encounter Note* Telephone Encounter - Vernell Hernandez LPN - 01/02/2025 2:57 PM EDT Received discharge summary from [facility] pt. Placed in provider's inbox for review. Route to MA scanning [facility]05-07-2025 Miscellaneous Notes* Telephone Encounter - Vernell Hernandez LPN - 01/02/2025 2:57 PM EDT Received discharge summary from [facility] pt. Placed in provider's inbox for review. Route to MA scanning documented in this encounterC[facility]05-06-2025 Discharge summary Author Jean Claude Berman [facility] Note Date/Time January 01, 2025 7:00pm [facility] Physical Therapy [facility] [address] [place] [id number] / REHABILITATION SERVICES DISCHARGE SUMMARY MR#: [id number] Acct: [id number] Name: ASCENCION WEIR Rep #: [id number] : 1950 74 From: Jean Claude Berman DPT, OCS, CSCS Referring Dr.: Dr. Mike Solorzano MD Status: REG R Insurance: [facility] MEDICARE SELF PAY INSURANCE Discharge Summary D/C [...] please feel free to call me at [phone]. Thank you for the referral of thispatient. Sincerely, Jean Claude Berman DPT, NELSON, CSCS Balance/Gait/Functional tests Balance/Special Test Scores Functional Gait Assessment Score: 18 % Disability: 40.0000 CATSIB Score (Max score 120 seconds): 60 Lower Extremity Functional Score: 33 Improvement % Improvement: 5 <Electronically signed by NELSON Rivera DPT, CSCS> 01/01/25 1516 CC: Dr. Mike Solorzano MD ~ EBG Signed [facility] Work Phone: 1(377) 340-614605-06-2025 Discharge summary [facility] Physical Therapy [facility] [address] [place] [address]. [address] [place] [address] / REHABILITATION SERVICES DISCHARGE SUMMARY MR#: [id number] Acct: [id number] Name: ASCENCION WEIR Rep #: [id number] : 1950 74 From: Jean Claude Berman DPT, NELSON, CSCS Referring Dr.: Dr. Mike Solorzano MD [...] please feel free to call me at [phone]. Thank you for the referral of thispatient. Sincerely, Jean Claude Berman, DPT, OCS, CSCS Balance/Gait/Functional tests Balance/Special Test Scores Functional Gait Assessment Score: 18 % Disability: 40.0000 CATSIB Score (Max score 120 seconds): 60 Lower Extremity Functional Score: 33 Improvement % Improvement: 5 01/01/25 1516 CC: Dr. Mike Solorzano MD ~ EBG Signed [facility]05-06-2025 Telephone encounter Note* Telephone Encounter - Veronica Chow - 01/01/2025 10:00 AM EDT Patient requesting medication that is not current on list tramadol hcl(ULTRAM 50 MG TA Patient last seen 11-08-24 Future visit scheduled: yes [facility]ACY: [facility]05-06-2025 Miscellaneous Notes* Telephone Encounter - Veronica Chow - 01/01/2025 10:00 AM EDT Patient requesting medication that is not current on list tramadol hcl(ULTRAM 50 MG TA Patient last seen 11-08-24 Future visit scheduled: yes [facility]ACY[facility] documented in this encounterC[facility]04-30-2025 Telephone encounter Note * Telephone Encounter - Vernell Hernandez LPN - 12/26/2024 2:06 PM EDT Received echo report from [facility]. Placed in provider's inbox for review. Route to MA scanning [facility]04-30-2025 Miscellaneous Notes* Telephone Encounter - Vernell Hernandez LPN - 12/26/2024 2:06 PM EDT Received echo report from [facility]. Placed in provider's inbox for review. Route to MA scanning documented in this encounterC[facility]04-17-2025 Telephone encounter Note * Telephone Encounter - Vernell Hernandez LPN - 12/13/2024 5:06 PM EDT Received lab results from [facility]. Placed in provider's inbox for review. Route to MA scanning [facility]04-17-2025 Miscellaneous Notes* Telephone Encounter - Vernell Hernandez LPN - 12/13/2024 5:06 PM EDT Received lab results from [facility]. Placed in provider's inbox for review. Route [...] PATIENT PRESENTS WITH AN IMPLANTABLE OR ATTACHED PILE DRIVER OPERATOR: No RADIOLOGY DEPARTMENT: General X-ray: Exam(s) Completed: Upper Extremity X- Ray(s): Hand, left PERIPHERAL IV DATA: Not applicable SIGNED BY: RT Diomedes(R) December 05, 2024 10:41 AM documented in this encounterCleveland Clinic [facility]04-09-2025 NoteHNO ID: [id number] Author: CARLEY PEREZ RT(Gio) Service: Radiology Author [...] PATIENT PRESENTS WITH AN IMPLANTABLE OR ATTACHED PILE DRIVER OPERATOR: No RADIOLOGY DEPARTMENT: General X-ray: Exam(s) Completed: Upper Extremity X-Ray(s): Hand, left PERIPHERAL IV DATA: Not applicable SIGNED BY: RT Diomedes(R) December 05, 2024 10:41 [facility]04-09-2025 NoteHNO ID: [id number] Author: LISA QUINTANILLA MD Service: ? Author [...] medication(s) were considered but not ordered: [facility] History of Present illness Narrative* Lisa Quintanilla [...] EDT Received cardiology office visit notes from [facility], DOS 11/28/24 with Rod Maravilla MD. Placed cardiology office notes in Aaron Solorzano MD inbox to review. In the cardiology notes for [place] the following medication discrepancies were noted: They [...] medication on his list. Called patient at [phone] to clarify 1-3 above and add medications [...] EDT Received cardiology office visit notes from [facility], DOS 11/28/24 with Rod Maravilla MD. Placed cardiology office notes in Aaron Solorzano MD inbox to review. In the cardiology notes for [place] the following medication discrepancies were noted: They [...] medication on his list. Called patient at [phone] to clarify 1-3 above and add medications [...] 11/28/2024 2:59 PM EDT Pharmacy verified in [facility] Patient has been identified by name [...] 28, 2024 1:31 PM documented in this encounterCleveland Clinic [facility]04-02-2025 Evaluation note* Diagnosis Onset Date Resolution Status [...] with pain deleted Apri l 2024 2:06pm [facility] Work Phone: [phone] Telephone encounter Note* Telephone Encounter - Anju Crespo MA - 11/28/2024 2:59 PM EDT Pharmacy verified in [facility] Patient has been identified by name [...] Hospital04-02-2025 Telephone encounter Note* Telephone Encounter - Aimee Almanza - 11/28/2024 [...] 11/19/2024 3:40 PM EDT Received evaluation from [facility] physical therapy. Placed in provider's inbox for review. Route to [place] fax/scanning [facility]03-24-2025 Miscellaneous Notes* Telephone Encounter - Vernell Hernandez LPN - 11/19/2024 3:40 PM EDT Received evaluation from [facility] physical therapy. Placed in provider's inbox for review. Route to [place] fax/scanning documented in this encounterCleveland Clinic Medina Hospital03-13-2025 NoteHNO ID: [id number] Author: AARON SOLORZANO MD Service: ? Author [...] full and symmetrical. Data Reviewed Latest Ref [facility] 08/13/2024 Protein, Total 6.3 - 8.0 g/dL [...] November 08, 2024 10:48 AM Provider Attestation: IAaron MD, personally performed the services described in this documentation. All medical record entries made by the scribe were at my direction and in my telephonic presence. I have reviewed the chart and discharge instructions (if applicable), and agree that the record reflects my personal performance and is accurate and complete. Electronically Signed: Aaron Solorzano MD November 08, 2024 1:42 [facility]03-13-2025 History of Present illness Narrative* Aaron [...] full and symmetrical. Data Reviewed Latest Ref [facility] 08/13/2024 Protein, Total 6.3 - 8.0 g/dL [...] Low (H) High ! Abnormal Assessment/Plan (G47.33) ILAN (obstructive sleep apnea) (primary encounter diagnosis) Comment: [...] AARON SOLORZANO MD * Telephone Encounter - Eduardo Woodard LPN - 11/02/2024 8:42 AM EST [...] by mouth twice daily. Take with food. Eduardo Woodard LPN November 02, 2024 8:42 AM documented in this encounterCleveland Clinic Medina Hospital03-07-2025 Telephone encounter Note * Telephone Encounter - Eduardo Woodard LPN - 11/02/2024 8:42 AM EST [...] by mouth twice daily. Take with food. Eduardo Woodard LPN November 02, 2024 8:42 AM [facility]02-27-2025 Telephone encounter Note* Telephone Encounter - Ankita Donaldson MA - 10/25/2024 12:37 PM EST Pharmacy verified in [facility]. Patient has been identified by name and [...] Hospital02-27-2025 Miscellaneous Notes* Telephone Encounter - Ankita Donladson MA - 10/25/2024 12:37 PM EST Pharmacy verified in [place]. Patient has been identified by name and [...] 0.5 tablets by mouth once daily. Amanda Janethpool Cano September 14, 2024 11:41 AM [place] [...] tablets by mouth once daily. Amanda Fowler [facility] September 14, 2024 11:41 AM documented in [...] remains slightly low as before Daxa Wing APRN.DOUBLE CUTTER * Telephone Encounter - Kelley Reynolds RN - 08/15/2024 3:12 PM EST Patient called and LVM on nurse line, states returning call. No encounters currently open in chart. [facility] 08/13 with lab work Called and spoke [...] advise [facility]12-16-2024 NoteHNO ID: [id number] Author: DAXA WING APRN.NATHANAEL Service: ? Author Type: Nurse Practitioner Type: Progress Notes Filed: 08/13/2024 14:47 Note Text: This note was created using [employer]ter. Subjective Ascencion Weir is a 73 year old male. Patient here for [facility] care follow-up. DMII: A1C today 5.9%. [...] HISTORY Procedure Laterality Date ARTHRS KNEE ABRASION ARTHRP/BOIL OFF MACHINE OPERATOR CLOTH DRLG/MICROFX 2013 and 2014 [facility] [address] Thrasher with Kneecap CARDIAC CATH 03/18/2020 [facility] I/D PERIANAL ABSCESS, SUPERFICIAL 08/13/08 PAST SURGICAL [...] Mother other ([place]I) Mother Asthma Father other ([place]) Father No Known Problems Daughter No Known [...] PANEL - LIPID PANEL BASIC Daxa Wing APRN.[facility]12-16-2024 History of Present illness Narrative* aDxa Wing APRN.DOUBLE CUTTER - 08/13/2024 2:07 PM EST This note was created using NoteWriter. Subjective Ascencion Weir is a 73 year old male. Patient here for [facility] follow-up. DMII: A1C today 5.9%. 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 Thrasher with Kneecap CARDIAC CATH 03/18/2020 [facility] I/D PERIANAL ABSCESS, SUPERFICIAL 08/13/08 PAST SURGICAL [...] Mother other (AMI) Mother Asthma Father other ([place]) Father No Known Problems Daughter No Known [...] PANEL - LIPID PANEL BASIC Daxa Wing APRN.CNP documented in this encounterCleveland Clinic Medina Hospital12-12-2024 Telephone encounter Note * Telephone Encounter - Daxa Wing APRN.CNP - 08/09/2024 5:00 PM EST Noted, will see Tuesday and send medication at that time Daxa Wing APRN.CNP [facility]12-12-2024 Miscellaneous Notes* Telephone [...] for discussion of results. Daxa Wing APRN.CNP * Telephone Encounter - Vernell Hernandez LPN - 08/09/2024 11:30 AM EST Rx pended please advise * Telephone Encounter - Aimee Almanza - 08/09/2024 11:14 AM EST Ascencion is calling Aaron Solorzano MD today to request medication not on current med list Insulin detemir units-100 Levemir 110 unit/mL injection [facility] [place] [facility] [address] Patient has been identified by name and birthdate. Duration of symptoms: N/A Person calling: self Call patient at: at home [phone] (home) Was an appointment scheduled: No Closing [...] pt, left vm requesting return phone call. [facility]12-12-2024 Telephone encounter Note* [...] for discussion of results. Daxa Wing APRN.NATHANAEL [facility]12-12-2024 Telephone encounter Note* Telephone Encounter - Vernell Hernandez LPN - 08/09/2024 11:30 AM EST Rx pended please advise [facility]12-12-2024 Telephone encounter Note* Telephone Encounter - [...] Aimee Williamson August 09, 2024 11:20 AM [facility]12-12-2024 Miscellaneous Notes* Telephone Encounter - Aimee Almanza [...] detemir units-100 Levemir 110 unit/mL injection [facility] [place] [facility] [address] Patient has been identified by name and birthdate. Duration of symptoms: N/A Person calling: self Call patient at: at home [phone] (home) Was an appointment scheduled: No Closing [...] AARON SOLORZANO MD * Telephone Encounter - Eduardo Woodard LPN - 08/02/2024 9:10 AM EST [...] mouth two times a day with meals. Eduardo Woodard LPN August 02, 2024 9:10 AM documented in this encounterCleveland Clinic [facility] Hospital12-05-2024 Telephone encounter Note * Telephone Encounter - Eduardo Woodard LPN - 08/02/2024 9:10 AM EST [...] mouth two times a day with meals. Eduardo Woodard LPN August 02, 2024 9:10 AM [...] AARON SOLORZANO MD * Telephone Encounter - Eduardo Woodard LPN - 07/13/2024 10:03 AM EST [...] Take 0.5 tablets by mouth once daily. Eduardo Woodard LPN July 13, 2024 10:03 AM documented in this encounterCleveland Clinic [facility]11-15-2024 Telephone encounter Note * Telephone Encounter - Eduardo Woodard LPN - 07/13/2024 10:03 AM EST [...] Take 0.5 tablets by mouth once daily. Eduardo Woodard LPN July 13, 2024 10:03 AM [facility]11-11-2024 Telephone encounter Note* Telephone Encounter - [...] afternoon. Please review and advise. Deneen Donato [facility]11-11-2024 Miscellaneous Notes* Telephone Encounter - Deneen [...] 2:41 PM EDT Received visit summary from [facility]. Placed in provider's inbox for review. Route to [place] scanning [facility]10-03-2024 Miscellaneous Notes* Telephone Encounter - Vernell Hernandez LPN - 05/31/2024 2:41 PM EDT Received visit summary from [facility]. Placed in provider's inbox for review. Route to [place] scanning documented in this encounterCleveland Clinic [facility] Hospital09-21-2024 NoteHNO ID: [id number] Author: LISA QUINTANILLA MD Service: ? Author [...] if rash is not improving. Lisa Quintanilla, [facility]09-21-2024 History of Present illness Narrative* [...] Vidhya Cano May 04, 2024 9:59 AM [facility] [...] is doing fine. * Telephone Encounter - aAron Solorzano MD - 04/04/2024 5:53 PM EDT The following approved medication requests have been transmitted electronically. Requested Prescriptions Signed Prescriptions Disp Refills traMADol (ULTRAM) 50 mg tablet 120 tablet 0 Sig: Take 1 tablet by mouth every 6 hours as needed for pain for up to 30 days. Authorizing Provider: AARON SOLORZANO MD * Telephone Encounter - Vidhya Molina - 04/04/2024 [...] 04/03/2024 9:07 AM EDT Called patient at [phone]. Phone rang multiple times, no answer. Could [...] not on current med list. Uses [facility] in [place]. documented in this encounterCleveland Clinic [facility] Hospital08-07-2024 [...] ask Dr. Solorzano to send the prescription. [facility]08-06-2024 Telephone encounter Note* Telephone Encounter - Reyna Campbell RN - 04/03/2024 9:07 AM EDT Called patient at [phone]. Phone rang multiple times, no answer. Could [...] for pain for up to 30 days. [facility]08-05-2024 Telephone encounter Note* Telephone Encounter - Reyna Campbell RN - 04/02/2024 12:15 PM EDT Last office visit 12/20/2023. Upcoming visit not scheduled. Called to triage usage. Last refill was 02/29/24 and it looks like past Rxs have lasted a little longer than this. Left message with person in household to ask patient to call back. [facility]08-05-2024 Telephone encounter Note* Telephone Encounter - Dorinda Hidalgo - 04/02/2024 9:07 AM EDT Patient called to refill his tramadol rx; not on current med list. Uses [facility] in [place]. [facility]08-02-2024 Telephone encounter Note* Telephone Encounter - Eduardo Woodard LPN - 03/30/2024 2:27 PM EDT Received 03/30/2024 from [facility]. Placed in provider's inbox for review. Route to [place] for scanning. [facility]08-02-2024 Miscellaneous Notes* Telephone Encounter - Eduardo Woodard LPN - 03/30/2024 2:27 PM EDT Received 03/30/2024 from [facility]. Placed in provider's inbox for review. Route to [place] for scanning. documented in this encounterCleveland Clinic [...] Telephone encounter Note * Telephone Encounter - Eduardo Woodard LPN - 03/13/2024 12:57 PM EDT Received 03/13/2024 from [facility]. Placed in provider's inbox for review. Route to [place] for scanning. [facility]07-16-2024 Miscellaneous Notes* Telephone Encounter - Eduardo Woodard LPN - 03/13/2024 12:57 PM EDT Received 03/13/2024 from [facility]. Placed in provider's inbox for review. Route to [place] for scanning. documented in this encounterCleveland Clinic [...] traMADol (ULTRAM) 50 mg tablet PHARMACY: [facility]/[place]. documented in this encounterCleveland Clinic [facility] Hospital07-03-2024 [...] Hernandez LPN February 29, 2024 11:21 AM [facility]07-03-2024 Telephone encounter Note* Telephone Encounter - Veronica Chow - 02/29/2024 9:22 AM EDT Patient requesting medication that is . traMADol (ULTRAM) 50 mg tablet PHARMACY: [facility]/[place]. [facility]06-11-2024 Telephone encounter Note* Telephone Encounter - Aaron Solorzano MD - 02/07/2024 4:42 PM EDT The following approved medication requests have been transmitted electronically. Requested Prescriptions Signed Prescriptions Disp Refills metFORMIN (GLUCOPHAGE) 1,000 mg tablet 180 tablet 1 Sig: Take 1 tablet by mouth two times a day with meals. Authorizing Provider: AARON SOLORZANO MD [facility]06-11-2024 Miscellaneous Notes* Telephone Encounter - Aaron Solorzano [...] two times a day with meals. Skylar Hamlin [facility] February 07, 2024 10:59 AM documented in [...] two times a day with meals. Skylar Hamlin [facility] February 07, 2024 10:59 AM [facility]05-21-2024 Telephone encounter Note* Telephone Encounter - Eduardo Woodard LPN - 01/17/2024 4:14 PM EDT Voicemail left for patient. [facility]05-21-2024 Miscellaneous Notes* Telephone Encounter - Eduardo Woodard LPN - 01/17/2024 4:14 PM EDT [...] 0 refills Please send approved medication to [facility] [address] Patient has been identified by name and birthdate. Duration of symptoms: N/A Person calling: self Call patient at: at home [phone] (home) Was an appointment scheduled: No Patient [...] refills Please send approved medication to [facility] [address] Patient has been identified by name and birthdate. Duration of symptoms: N/A Person calling: self Call patient at: at home [phone] (home) Was an appointment scheduled: No Patient [...] EDT Received carotid duplex US report from [facility] cardiovascular services. Placed in provider's inbox for review. Route to [place] scanning [facility]05-14-2024 Miscellaneous Notes* Telephone Encounter - Vernell Hernandez LPN - 01/10/2024 4:59 PM EDT Received carotid duplex US report from [facility] cardiovascular services. Placed in provider's inbox for review. Route to [place] scanning documented in this encounterCleveland Clinic [facility] Hospital05-13-2024 Telephone encounter Note * Telephone Encounter - Vernell Hernandez LPN - 01/09/2024 3:26 PM EDT Received echo results from [facility]. Placed in provider's inbox for review. Route to [place] scanning [facility]05-13-2024 Miscellaneous Notes* Telephone Encounter - Vernell Hernandez LPN - 01/09/2024 3:26 PM EDT Received echo results from [facility]. Placed in provider's inbox for review. 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 Data Reviewed Latest Ref Rn 07/05/2023 Protein, Total 6.3 - 8.0 g/dL [...] adherent to treatment and benefiting from it filtration operator. In need of new supplies, order placed [...] Daxa Moody APRN.CNP * Telephone Encounter - Preston Vidhya Cano - 12/12/2023 4:33 PM EDT Patient has [...] [facility] M[facility] Notes* Telephone Encounter - Eduardo Woodard LPN - 11/30/2023 10:23 AM EDT [facility] Pl[facility] in provider's inbox for review. Route to [place] for faxing. documented in this encounterCleveland Clinic [...] 11/28/2023 12:14 PM EDT Pharmacy verified in [employer] in [place] Patient has been identified by name and [...] (199 lb) Not applicable Please advise. Peggy Roth Pss documented in this encounterCleveland Clinic [facility] Hospital02-27-2024 Miscellaneous Notes* Telephone Encounter - Daxa Moody APRN.CNP - 10/25/2023 1:48 PM EST Yes, just switch to the new insulin when he runs out of the Levemir. Daxa Moody APRN.CNP * Telephone Encounter - Vernell Hernandez LPN - 10/25/2023 12:16 PM EST Called and notified pt of rx update. Pt states he will product picker new rx here in about a month or two because he still has enough of the Levemir to last him until then. Pt states he will call to update how he is doing on the Semglee at that time. * Telephone Encounter - Daxa Moody APRN.NATHANAEL - 10/25/2023 9:39 AM EST Since levemir is no longer covered by insurance, I sent a new Rx to his pharmacy, let us know if there are any issues with the new Rx. Daxa Moody APRN.NATHANAEL Requested Prescriptions Signed Prescriptions Disp Refills insulin glargine-yfgn (SEMGLEE,INSULIN GLARG-YFGN,PEN) 100 unit/mL (3 mL) insulin pen 12 mL 1 Sig: Inject 14 Units subcutaneously daily at bedtime. Authorizing Provider: DAXA MOODY Pharmacy Information Pharmacy Address Telephone [facility] [phone] [place] [address] * Telephone Encounter - Chrissy Haque - 10/24/2023 4:52 PM EST [employer] calling that Levomir is not in their covered formularies. The following are a couple of alternatives. Ankush glee pen Toyayo Stated they do have other alternatives. Please call to review. documented in this encounterCleveland Clinic [facility]02-21-2024 Miscellaneous Notes* Telephone Encounter - Eduardo Woodard LPN - 10/19/2023 10:19 AM EST Spoke to [facility]. They need a current face to face to be able to bill Medicare part D. Face to face every six months. Last office note faxed to [phone] documented in this encounterCleveland Clinic [facility] Hospital02-19-2024 [...] age - Follows with Dr. Johnson at [place] - Got a stimulator over 1 year [...] approximately 12 years ago, originally prescribed by business initiatives manager, Dr. Robledo. - Has not endorses any [...] October 17, 2023 4:08 PM Provider Attestation: Aaron Gannon MD, personally performed [...] no 7. : N/A Protocols used: Foot Ozqi-TLZBN-RK, Diabetes - Foot Problems and Cjgtlmjae-TDZEE-DV * Telephone Encounter - Reyna Campbell RN [...] calling: self Call patient at: on cell [phone] (home) Was an appointment scheduled: No Closing [...] AARON SOLORZANO MD * Telephone Encounter - Eduardo Woodard LPN - 10/04/2023 11:47 AM EST Pharmacy verified in [facility] Patient has been identified by name [...] kg (198 lb) Not applicable Please advise. Eduardo Woodard LPN * Telephone Encounter - Aimee Almanza - 10/04/2023 11:02 AM EST [facility] is calling Aaron Solorzano MD today to request a medication not listed on current med list Tramadol 50 mg tablet #120 Please send to [facility] [place] Patient has been identified by name and birthdate. Duration of symptoms: N/A Person calling: self Call patient at: at home [phone] (home) Was an appointment scheduled: No Closing [...] 08/11/2023 10:20 AM EST Pharmacy verified in [facility] Patient has been identified by name [...] 08/11/2023 9:54 AM EST Pharmacy verified in [facility] Patient has been identified by name [...] (198 lb) Not applicable Please advise. Peggy Roth Pss documented in this encounterCleveland Clinic [facility]11-16-2023 Miscellaneous Notes* Telephone Encounter - Eduardo Woodard LPN - 07/14/2023 3:34 PM EST [...] calling: self Call patient at: at home [phone] (home) Was an appointment scheduled: No Closing statement: Results or non-symptom based questions: Thank you for calling [facility], your call will be returned within the next business day. Skylar Cano documented in this encounterCleveland Clinic [facility]11-16-2023 Miscellaneous Notes* Telephone Encounter - Reyna Campbell RN - 07/14/2023 1:39 PM EST According [...] [facility] Miscellaneous Notes* Telephone Encounter - Eduardo Woodard LPN - 06/17/2023 1:13 PM EDT Received 06/17/2023 from [facility]. Placed in provider's inbox for review. 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 Thrasher with Kneecap CARDIAC CATH 03/18/2020 [facility] I/D PERIANAL ABSCESS, SUPERFICIAL 08/13/08 PAST SURGICAL [...] Mother other ([place]I) Mother Asthma Father other ([place]) Father No Known Problems Daughter No Known [...] on 09/21/2022 HBA1C due on 03/09/2023 Covid-19 Vaccine(5 - season) due on 04/29/2023 Colorectal Cancer Screening due [...] better. (Z23) Encounter for immunization Comment: Plan: [employer] COVID-19 VACCINE ( SE[place]) AGE 12+ YR agrees (E11.40, Z79.4) Controlled [...] PCP team. Thanks. * Telephone Encounter - Eduardo Woodard LPN - 06/10/2023 2:07 PM EDT Pharmacy verified in [facility] Patient has been identified by name [...] 5.9 09/21/2021 5.9 09/21/2021 5.9 Please advise. Eduardo Woodard LPN * Telephone Encounter - Milla [...] #120 refilss 0 Please send to [facility] in [place] Patient has been identified by name and birthdate. Duration of symptoms: N/A Person calling: self Call patient at: at home [phone] (home) Was an appointment scheduled: No Closing statement: Results or non-symptom based questions: Thank you for calling [facility], your call will be returned within the next business day. Aimee Williamson documented in this encounterCleveland Clinic [facility]09-14-2023 Miscellaneous Notes* Telephone Encounter - Vernell Hernandez - 05/12/2023 5:31 PM EDT Received eval swelling left ring finger summary from [facility]. Placed in provider's inbox for review. Route to [place] scanning. documented in this encounterCleveland Clinic [facility]08-24-2023 Miscellaneous Notes* Telephone Encounter - Munira Solorzano - 04/21/2023 1:22 PM EDT Spoke with patient regarding missed appointment. Patient stated he called in to cancel appointment yesterday. Patient is seeing a different pain management provider and will call if he needs us in the future. Munira Solorzano documented in this encounterCleveland [id number] Miscellaneous Notes* Telephone Encounter - Eduardo Woodard LPN - 04/18/2023 3:19 PM EDT Patient will call to scheduled appointment. * Telephone Encounter - Daxa Moody APRN.CNP - 04/18/2023 2:31 PM EDT Will need a visit and foot exam with Dr. Solorzano to prescribe, or his labor law professor can prescribe if hehas one. Please schedule, Dr. Solorzano only. Daxa Moody APRN.CNP * Telephone Encounter - Veronica Chow - 04/18/2023 12:09 PM EDT Patient asking for diabetic shoes from [facility]. Patient asking for an order to be sent to [facility] [place]. Ph.[phone] documented in this encounterCleveland Clinic [facility] Hospital08-18-2023 Miscellaneous Notes* Telephone Encounter - Milla [...] [facility]07-06-2023 Miscellaneous Notes* Telephone Encounter - Nirali Jaimebrian - 03/03/2023 1:02 PM EDT Spoke with [...] 9:28 AM EDT POPULATION HEALTH NAVIGATION OUTREACH Action/ Patient will call back later ANNUAL MEDICARE [...] AARON SOLORZANO MD * Telephone Encounter - Eduardo Woodard LPN - 02/18/2023 2:57 PM EDT Pharmacy verified in [facility] Patient has been identified by name [...] lb 3.2 oz) Not applicable Please advise. Eduardo Woodard LPN * Telephone Encounter - Vidhya Juárez [facility] - 02/18/2023 9:59 AM EDT Ascencion Weir is calling Aaron Solorzano MD today he is calling to request the following medication, not on his current list: hydrOXYchloroQUINE (PLAQUENIL) 200 mg tablet 30 tablet 5 08/13/2022 02/09/2023 Sig: Take 1 tablet by mouth once daily. Sent to pharmacy as: hydrOXYchloroQUINE (PLAQUENIL) 200 mg tablet Class: Normal Route: ORAL Order: [id number] E-Prescribing Status: Receipt confirmed by pharmacy (08/13/2022 2:11 PM EST) Renewals Per Patient, he has one pill left today. [facility] today. Patient has been identified by name and birthdate. Duration of symptoms: N/A Person calling: self Call patient at: at home [phone] (home) Was an appointment scheduled: No Closing statement: Results or non-symptom based questions: Thank you for calling [facility], your call will be returned within the next business day. Vidhya Juárez Pss documented in this encounterCleveland Clinic Medina Hospital06-22-2023 History of Present illness Narrative* Daxa Moody APRN.DOUBLE CUTTER - 02/17/2023 9:53 AM EDT Images from the original note were not included. This note was created using iiMonde. 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 Thrasher with Kneecap CARDIAC CATH 03/18/2020 [facility] I/D PERIANAL ABSCESS, SUPERFICIAL 08/13/08 PAST SURGICAL [...] Mother other ([place]) Mother Asthma Father other ([place]) Father No Known Problems Daughter No Known [...] AARON SOLORZANO MD * Telephone Encounter - Eduardo Woodard LPN - 02/11/2023 1:35 PM EDT Pharmacy verified in [facility] Patient has been identified by name [...] 5.9 09/21/2021 5.9 09/21/2021 5.9 Please advise. Eduardo Woodard LPN documented in this encounterCleveland Clinic Medina Hospital06-10-[address] [facility] [place] [facility] February 05, 2023 4:17pm Note Date/Time February 05, 2023 2:46 pm [facility] Medical Records Department [address] [place] [address] Emergency Department Summary 02/05/23 MR#: [id number] Acct: [id number] Name: ASCENCION WEIR Rep #:[id number] : [...] He denies testicular pain. Denies back pain. [facility] Medical History Abnormal echocardiogram Asthmatic bronchitis with exacerbation Atherosclerotic heart disease of [place] coronary artery without angina pectoris Benign essential [...] Allergies Allergy Verified 02/05/23 14:48 Family History Father Myocardial infarction, Onset Age: [...] % (Auto) 62.0 Lymph % (Auto) 22.7 [place] % (Auto) 11.3 H Eos % (Auto) [...] interpreted by myself as no acute fractures katja lytic lesions. Patient does have what appears [...] your Primary Care Provider. Call [facility] ([phone]) or report to the closest Emergency Room. Call 911 if necessary. 02/05/23 1617 <Electronically signed by Alan Correia DO> Cosigner Signature (if applicable): CC: Dr. Mike Solorzano MD ~ Signed [facility] Work Phone: [phone] 613-194705-11-2023 Miscellaneous Notes* Telephone Encounter - Daxa Moody APRN.CNP - 01/06/2023 4:05 PM EDT Addressed in [...] 50 mg tablet Class: Normal Route: ORAL [place] [facility] Amanda Fowler Pss documented in this encounterCleveland Clinic Medina Hospital04-05-2023 Miscellaneous Notes* Telephone Encounter - Vernell Hernandez - 12/01/2022 8:20 AM EDT Received orders for CPAP supplies from [facility]. Placed in provider's inbox for review. Route to [place] fax documented in this encounterCleveland Clinic Medina Hospital03-17-2023 Miscellaneous Notes* Telephone Encounter - Eduardo Woodard LPN - 11/12/2022 11:04 AM EDT [facility] Placed in provider's inbox for review. Route to [place] for faxing documented in this encounterCleveland Clinic [...] you can please send this to [facility] in [place]. Amanda Fowler Pss documented in this encounterCleveland Clinic Med[facility] Hospital01-16-2023 Miscellaneous Notes* Telephone Encounter - Ariadna Mitchell RN - 09/13/2022 12:24 PM EST Spoke with patient, message and recommendations from provider given * Telephone Encounter - Daxa Moody APRN.CNP - 09/13/2022 11:09 AM EST Let patient [...] AM EST This note was created using iiMonde. 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 Thrasher with Kneecap CARDIAC CATH 03/18/2020 [facility] I/D PERIANAL ABSCESS, SUPERFICIAL 08/13/08 PAST SURGICAL [...] Mother other ([place]I) Mother Asthma Father other ([place]) Father No Known Problems Daughter No Known [...] BASIC; Future 3. Encounter for immunization - [place] COVID-19 BIVALENT BOOSTER VACCINE, AGE 12+ YR [...] Daxa Moody APRN.NATHANAEL * Telephone Encounter - Eduardo Woodard LPN - 08/18/2022 2:16 PM EST Pharmacy verified in [facility] Patient has been identified by name [...] Value 09/21/2021 5.9 09/21/2021 5.9 Please advise. Eduardo Woodard LPN * Telephone Encounter - Peggy Cano - 08/18/2022 1:56 PM EST Pharmacy verified in [facility] Patient has been identified by name [...] PM EST Received f/u visit summary from [facility]. Placed in provider's inbox for review. [...] AARON SOLORZANO MD * Telephone Encounter - Eduardo Woodard LPN - 08/13/2022 12:47 PM EST Pharmacy verified in [facility] Patient has been identified by name [...] lb 8 oz) Not applicable Please advise. Eduardo Woodard LPN documented in this encounterCleveland Clinic [...] AARON SOLORZANO MD * Telephone Encounter - Eduardo Woodard LPN - 07/27/2022 2:52 PM EST Pharmacy verified in [facility] Patient has been identified by name [...] lb 8 oz) Not applicable Please advise. Eduardo Woodard LPN * Telephone Encounter - Peggy Roth Pss - 07/26/2022 10:56 AM EST Ascencion is calling to request a refill on his tramadol. Please send to the [facility] in [place]. documented in this encounterCleveland Clinic Medina Hospital11-28-2022 Miscellaneous Notes* Telephone Encounter - Vernell Hernandez - 07/26/2022 8:17 AM EST Pharmacy verified in [facility] Patient has been identified by name [...] Not scheduled Please review and advise. Ariadna Mitchell RN * Telephone Encounter - Skylar Hamlin [...] AARON SOLORZANO MD * Telephone Encounter - Eduardo Woodard LPN - 03/26/2022 9:45 AM EDT Pharmacy verified in Epic Patient has [...] Value 09/21/2021 5.9 09/21/2021 5.9 Please advise. Eduardo Woodard LPN * Telephone Encounter - Dorinda [...] pharmacy. No need to notify patient. Dorinda Fuentes Pss documented in this encounterCleveland Clinic Medina Hospital07-25-2022 Miscellaneous Notes* Telephone Encounter - Eduardo Woodard LPN - 03/22/2022 8:09 AM EDT Received 03/19/2022 from [facility]. Placed in provider's inbox for review. Route to [place] scanning documented in this encounterCleveland Clinic Medina Hospital07-19-2022 Miscellaneous Notes* Telephone Encounter - Vernell Hernandez - 03/16/2022 1:36 PM EDT Received chest xray results for chest pain from [facility]. Placed in provider's inbox for review. Route [...] if warranted. * Telephone Encounter - Aimee Eubanks [facility] - 02/15/2022 11:04 AM EDT Patient is requesting a refill on Tramadol 50 mg one tab every six hours as needed. This is not on his current med list, please call in RX to [facility] [place] (already loaded in his chart) Please advise patient if you have any questions at [phone] NOTE: patient had back stimulator put in 4 months ago and is still having pain. documented in this encounterCleveland Clinic Medina Hospital06-07-2022 Miscellaneous Notes* Telephone Encounter - Vernell Hernandez - 02/02/2022 4:59 PM EDT Refill request from [facility]. Order pended. documented in this encounterCleveland Clinic Medina Hospital05-29-2022 Miscellaneous Notes* Telephone Encounter - Genesis Dey LPN - 01/24/2022 9:56 AM EDT Patient calling with medication/refill: [facility]caregiver [phone]., Do you have enough medication to last until the office reopens? Yes. and Have you contacted your pharmacy to ask for enough medication to get by until the officereopens? No. request. Patient denies any new or worsening sx.yes Allergies reviewed yes. insulin detemir U-100 (LEVEMIR U-100 INSULIN) 100 unit/mL injection 10 mL 5 01/21/2021 Sig: Inject 14 Units subcutaneously daily at bedtime. Paged application integration engineer provider Benjamin Gomez DO who approved refill. Allergies reviewed: Yes ALLERGIES Allergen Reactions Entex Pse [Pseudoep* Intolerance Patient states he does not have any allergies The following medications were verbally ordered by and read back to Dr. Ray on 01/24/2022 at 10:01 AM by Genesis Dey LPN. No medications selected for refill. The prescription(s) was sent by escript to [facility]; by Genesis Dey LPN. Patient/Family notified: Yes Genesis Dey LPN documented in this encounterCleveland Clinic Medina Hospital05-16-2022 Miscellaneous Notes* Telephone Encounter - Eduardo Woodard LPN - 01/11/2022 12:36 PM EDT [...] lb 8 oz) Not applicable Please advise. Eduardo Woodard LPN * Telephone Encounter - Vidhya Juárez Pss - 01/11/2022 12:13 PM EDT Patient has [...] to pharmacy. No need to notify patient. Vidhya Juárez Pss documented in this encounterCleveland Clinic Med[facility] Hospital04-06-2022 Miscellaneous Notes* Telephone Encounter - Eduardo Woodard LPN - 12/02/2021 1:33 PM EDT Orders faxed. Confirmation received. * Telephone Encounter - Sonal Razo MA - 12/02/2021 9:55 AM EDT Received RX and certificate of medical necessity from [facility]. Placed in provider's inbox for review, signature. Route to [place] for faxing back to [facility] at [phone] documented in this encounterCleveland Clinic Med[facility] Hospital03-29-2022 Miscellaneous Notes* Telephone Encounter - Eduardo Woodard LPN - 11/24/2021 2:24 PM EDT Received 11/24/2021 from [facility]. Placed in provider's inbox for review. Route to [place] for scanning Office visit 11/23/2021 Jinny MIRANDA [...] including vitamins, herbs, eye drops, creams, and zutg-pci-ngcmuqy medicines. Any problems you or family members [...] 08/03/2010 Document Revised: 07/28/2018 Document Reviewed: 01/30/2017 [employer] Patient Education 2020 [employer] Follow Up Care 10/09/2021 15:15:04 With:MIKE RAI DO, Orthopedic, Orthopedic Address: [address] [place] [address], [address] [place] [facility] [place] [address]- [phone] When:11/11/2021 09:30:00 Comments:Follow-up as scheduled [facility] Wanda 12-16-2008 History of Past illness Narrative* Problem Noted Date Resolved Date ABSCESS ANAL 08/13/2008 07/04/2009 Benign neoplasm of skin of trunk, except scrotum 10/03/2006 07/04/2009 HYPERLIPIDEMIA NEC/NOS 201 6 documented as of this encounter (statuses as of 11/24/2021) [address]16-2008 History of Past illness Narrative* Problem [...] of this encounter (statuses as of 02/02/2022) [address]16[address]2008 History of Past illness Narrative* Problem Noted Date Resolved Date ABSCESS ANAL 08/13/2008 07/04/2009 Benign neoplasm of skin of trunk, except scrotum 10/03/2006 07/04/2009 HYPERLIPIDEMIA NEC/NOS 201 6 documented as of this encounter (statuses as of 02/16/2022) [address]16[address]2008 History of Past illness Narrative* Problem [...] of this encounter (statuses as of 05/17/2022) [facility] History of Past [...] of this encounter (statuses as of 06/04/2022) [place] [address]-16-2008 History of Past illness Narrative* Problem Noted Date Resolved Date ABSCESS ANAL 08/13/2008 07/04/2009 Benign neoplasm of skin of trunk, except scrotum 10/03/2006 07/04/2009 HYPERLIPIDEMIA NEC/NOS 6 documented as of this encounter (statuses as of 07/26/2022) [address]16[address]2008 History of Past illness Narrative* Problem Noted Date Resolved Date ABSCESS ANAL 08/13/2008 07/04/2009 Benign neoplasm of skin of trunk, except scrotum 10/03/2006 07/04/2009 HYPERLIPIDEMIA NEC/NOS 6 documented as of this encounter (statuses as of 07/27/2022) [address]16[address]2008 History of Past illness Narrative* Problem Noted Date Resolved Date ABSCESS ANAL 08/13/2008 07/04/2009 Benign neoplasm of skin of trunk, except scrotum 10/03/2006 07/04/2009 HYPERLIPIDEMIA NEC/NOS 6 documented as of this encounter (statuses as of 08/13/2022) [address]16[address]2008 History of Past illness Narrative* Problem Noted Date Resolved Date ABSCESS ANAL 08/13/2008 07/04/2009 Benign neoplasm of skin of trunk, except scrotum 10/03/2006 07/04/2009 HYPERLIPIDEMIA NEC/NOS 6 documented as of this encounter (statuses as of 08/16/2022) [facility] of Past illness Narrative* Problem Noted Date Resolved Date ABSCESS ANAL 08/13/2008 07/04/2009 Benign neoplasm of skin of trunk, except scrotum 10/03/2006 07/04/2009 HYPERLIPIDEMIA NEC/NOS 6 documented as of this encounter (statuses as of 08/20/2022) [address]16[address]2008 History of Past illness Narrative* Problem Noted Date Resolved Date ABSCESS ANAL 08/13/2008 07/04/2009 Benign neoplasm of skin of trunk, except scrotum 10/03/2006 07/04/2009 HYPERLIPIDEMIA NEC/NOS 6 documented as of this encounter (statuses as of 08/31/2022) [address]16[address]2008 History of Past illness Narrative* Problem Noted Date Resolved Date ABSCESS ANAL 08/13/2008 07/04/2009 Benign neoplasm of skin of trunk, except scrotum 10/03/2006 07/04/2009 HYPERLIPIDEMIA NEC/NOS 201 6 documented as of this encounter (statuses as of 09/13/2022) [address]16[address]2008 History of Past illness Narrative* Problem Noted Date Resolved Date ABSCESS ANAL 08/13/2008 07/04/2009 Benign neoplasm of skin of trunk, except scrotum 10/03/2006 07/04/2009 HYPERLIPIDEMIA NEC/NOS 201 6 documented as of this encounter (statuses as of 10/05/2022) [address]16[address]2008 History of Past illness Narrative* Problem Noted Date Resolved Date ABSCESS ANAL 08/13/2008 07/04/2009 Benign neoplasm of skin of trunk, except scrotum 10/03/2006 07/04/2009 HYPERLIPIDEMIA NEC/NOS 201 6 documented as of this encounter (statuses as of 10/26/2022) [address]16[address]2008 History of Past illness Narrative* Problem Noted Date Resolved Date ABSCESS ANAL 08/13/2008 07/04/2009 Benign neoplasm of skin of trunk, except scrotum 10/03/2006 07/04/2009 HYPERLIPIDEMIA NEC/NOS 6 documented as of this encounter (statuses as of 11/12/2022) [place] [address]-16-2008 History of Past illness Narrative* Problem Noted Date Resolved Date ABSCESS ANAL 08/13/2008 07/04/2009 Benign neoplasm of skin of trunk, except scrotum 10/03/2006 07/04/2009 HYPERLIPIDEMIA NEC/NOS 201 6 documented as of this encounter (statuses as of 12/01/2022) [place] [address]-16-2008 History of Past illness Narrative* Problem Noted Date Resolved Date ABSCESS ANAL 08/13/2008 07/04/2009 Benign neoplasm of skin of trunk, except scrotum 10/03/2006 07/04/2009 HYPERLIPIDEMIA NEC/NOS 201 6 documented as of this encounter (statuses as of 01/07/2023) [address]16[address]2008 History of Past illness Narrative* Problem Noted Date Resolved Date ABSCESS ANAL 08/13/2008 07/04/2009 Benign neoplasm of skin of trunk, except scrotum 10/03/2006 07/04/2009 HYPERLIPIDEMIA NEC/NOS 201 6 documented as of this encounter (statuses as of 02/11/2023) [address]16[address]2008 History of Past illness Narrative* Problem Noted Date Resolved Date ABSCESS ANAL 08/13/2008 07/04/2009 Benign neoplasm of skin of trunk, except scrotum 10/03/2006 07/04/2009 HYPERLIPIDEMIA NEC/NOS 6 documented as of this encounter (statuses as of 02/17/2023) [address]16[address]2008 History of Past illness Narrative* Problem Noted Date Resolved Date ABSCESS ANAL 08/13/2008 07/04/2009 Benign neoplasm of skin of trunk, except scrotum 10/03/2006 07/04/2009 HYPERLIPIDEMIA NEC/NOS 6 documented as of this encounter (statuses as of 02/19/2023) [address]16[address]2008 History of Past illness Narrative* Problem Noted Date Resolved Date ABSCESS ANAL 08/13/2008 07/04/2009 Benign neoplasm of skin of trunk, except scrotum 10/03/2006 07/04/2009 HYPERLIPIDEMIA NEC/NOS 6 documented as of this encounter (statuses as of 03/03/2023) [address]16[address]2008 History of Past illness Narrative* Problem Noted Date Diagnosed Date Resolved Date ABSCESS ANAL 08/13/2008 07/04/2009 Benign neoplasm of skin of t runk, except scrotum 10/03/2006 07/04/2009 HYPERLIPIDEMIA NEC/NOS 10/28 documented as of this encounter (statuses as of 04/15/2023) [address]16[address]2008 History of Past illness Narrative* Problem Noted Date Diagnosed Date Resolved Date ABSCESS ANAL 08/13/2008 07/04/2009 Benign neoplasm of skin of t runk, except scrotum 10/03/2006 07/04/2009 HYPERLIPIDEMIA NEC/NOS 10/28 documented as of this encounter (statuses as of 04/19/2023) [address]16[address]2008 History of Past illness Narrative* Problem Noted Date Diagnosed Date Resolved Date ABSCESS ANAL 08/13/2008 07/04/2009 Benign neoplasm of skin of t runk, except scrotum 10/03/2006 07/04/2009 HYPERLIPIDEMIA NEC/NOS 10/28 documented as of this encounter (statuses as of 04/21/2023) [address]16[address]2008 History of Past illness Narrative* Problem Noted Date Diagnosed Date Resolved Date ABSCESS ANAL 08/13/2008 07/04/2009 Benign neoplasm of skin of t runk, except scrotum 10/03/2006 07/04/2009 HYPERLIPIDEMIA NEC/NOS 10/28 documented as of this encounter (statuses as of 05/13/2023) [address]16[address]2008 History of Past illness Narrative* Problem Noted Date Diagnosed Date Resolved Date ABSCESS ANAL 08/13/2008 07/04/2009 Benign neoplasm of skin of t runk, except scrotum 10/03/2006 07/04/2009 HYPERLIPIDEMIA NEC/NOS 10/28 documented as of this encounter (statuses as of 05/20/2023) [address]16[address]2008 History of Past illness Narrative* Problem Noted Date Diagnosed Date Resolved Date ABSCESS ANAL 08/13/2008 07/04/2009 Benign neoplasm of skin of t runk, except scrotum 10/03/2006 07/04/2009 HYPERLIPIDEMIA NEC/NOS 10/28 documented as of this encounter (statuses as of 06/10/2023) [address]16[address]2008 History of Past illness Narrative* Problem Noted Date Diagnosed Date Resolved Date ABSCESS ANAL 08/13/2008 07/04/2009 Benign neoplasm of skin of t runk, except scrotum 10/03/2006 07/04/2009 HYPERLIPIDEMIA NEC/NOS 10/28 documented as of this encounter (statuses as of 06/16/2023) [address]16[address]2008 History of Past illness Narrative* Problem Noted Date Diagnosed Date Resolved Date ABSCESS ANAL 08/13/2008 07/04/2009 Benign neoplasm of skin of t runk, except scrotum 10/03/2006 07/04/2009 HYPERLIPIDEMIA NEC/NOS 10/28 documented as of this encounter (statuses as of 06/17/2023) [facility] History of Past illness Narrative* Problem Noted Date Diagnosed Date Resolved Date ABSCESS ANAL 08/13/2008 07/04/2009 Benign neoplasm of skin of t runk, except scrotum 10/03/2006 07/04/2009 HYPERLIPIDEMIA NEC/NOS 10/28 documented as of this encounter (statuses as of 07/14/2023) [address]16[address]2008 History of Past illness Narrative* Problem Noted Date Diagnosed Date Resolved Date ABSCESS ANAL 08/13/2008 07/04/2009 Benign neoplasm of skin of t runk, except scrotum 10/03/2006 07/04/2009 HYPERLIPIDEMIA NEC/NOS 10/28 documented as of this encounter (statuses as of 07/14/2023) [address]16[address]2008 History of Past illness Narrative* Problem Noted Date Diagnosed Date Resolved Date ABSCESS ANAL 08/13/2008 07/04/2009 Benign neoplasm of skin of t runk, except scrotum 10/03/2006 07/04/2009 HYPERLIPIDEMIA NEC/NOS 10/28 documented as of this encounter (statuses as of 08/12/2023) [address]16[address]2008 History of Past illness Narrative* Problem Noted Date Diagnosed Date Resolved Date ABSCESS ANAL 08/13/2008 07/04/2009 Benign neoplasm of skin of t runk, except scrotum 10/03/2006 07/04/2009 HYPERLIPIDEMIA NEC/NOS 10/28 documented as of this encounter (statuses as of 10/04/2023) [place] [address]2008 History of Past illness Narrative* Problem Noted Date Diagnosed Date Resolved Date ABSCESS ANAL 08/13/2008 07/04/2009 Benign neoplasm of skin of t runk, except scrotum 10/03/2006 07/04/2009 HYPERLIPIDEMIA NEC/NOS 10/28 documented as of this encounter (statuses as of 10/13/2023) [address]16[address]2008 History of Past illness Narrative* Problem Noted Date Diagnosed Date Resolved Date ABSCESS ANAL 08/13/2008 07/04/2009 Benign neoplasm of skin of t runk, except scrotum 10/03/2006 07/04/2009 HYPERLIPIDEMIA NEC/NOS 10/28 documented as of this encounter (statuses as of 10/17/2023) [address]16[address]2008 History of Past illness Narrative* Problem Noted Date Diagnosed Date Resolved Date ABSCESS ANAL 08/13/2008 07/04/2009 Benign neoplasm of skin of t runk, except scrotum 10/03/2006 07/04/2009 HYPERLIPIDEMIA NEC/NOS 10/28 documented as of this encounter (statuses as of 10/18/2023) [address]16[address]2008 History of Past illness Narrative* Problem Noted Date Diagnosed Date Resolved Date ABSCESS ANAL 08/13/2008 07/04/2009 Benign neoplasm of skin of t runk, except scrotum 10/03/2006 07/04/2009 HYPERLIPIDEMIA NEC/NOS 10/28 documented as of this encounter (statuses as of 10/19/2023) [address]16[address]2008 History of Past illness Narrative* Problem Noted Date Diagnosed Date Resolved Date ABSCESS ANAL 08/13/2008 07/04/2009 Benign neoplasm of skin of t runk, except scrotum 10/03/2006 07/04/2009 HYPERLIPIDEMIA NEC/NOS 10/28 documented as of this encounter (statuses as of 10/26/2023) [address]16[address]2008 History of Past illness Narrative* Problem Noted Date Diagnosed Date Resolved Date ABSCESS ANAL 08/13/2008 07/04/2009 Benign neoplasm of skin of t runk, except scrotum 10/03/2006 07/04/2009 HYPERLIPIDEMIA NEC/NOS 10/28 documented as of this encounter (statuses as of 11/29/2023) [address]16[address]2008 History of Past illness Narrative* Problem Noted Date Diagnosed Date Resolved Date ABSCESS ANAL 08/13/2008 07/04/2009 Benign neoplasm of skin of t runk, except scrotum 10/03/2006 07/04/2009 HYPERLIPIDEMIA NEC/NOS 10/28 documented as of this encounter (statuses as of 11/30/2023) [address]16[address]2008 History of Past illness Narrative* Problem Noted Date Diagnosed Date Resolved Date ABSCESS ANAL 08/13/2008 07/04/2009 Benign neoplasm of skin of t runk, except scrotum 10/03/2006 07/04/2009 HYPERLIPIDEMIA NEC/NOS 10/28 documented as of this encounter (statuses as of 12/13/2023) [facility] Author Margarita Harris [facility] Note Date/Time April 19, 2025 2: 37pm [facility] Medical Records Department [address] [place] [address] Instructions for Home/Discharge Instructions 04/19/25 1436 MR#: [id number] Acct: [id number] Name: ASCENCION WEIR Rep #:[id number] : 1950 74 From: Margarita Harris MD PCP: Dr. Mike Solorzano MD Status:ADM IN Discharge Instructions DC O2, CPAP, BIPAP needs Home O2 Discharge instructions: No Dressing / Incision Discharge Activity: Return to Normal Activity Dressing / Incision Call your doctor if you observe: Fever of 101 or Higher, Shortness of breath, Dizziness, Swelling in the ankles and Chest pain Follow Up Care Test Results: Test results from this visit will be discussed in further detail at your follow- up appointment, if applicable. Discharge Plan Admission Admit Date/Time: 04/15/25 19:38 Primary Reason for Your Visit: MRSA bacteremia Attending Provider: Margarita Harris Primary Care Provider: Mike Solorzano Consulting Providers: Debora Diaz; Alex Gonzales Instructions Patient Instructions: MRSA, ED Bacteremia, Suspected (Adult) Discharge Orders/Prescriptions Prescriptions: New vancomycin 1,000 mg recon soln 1,000 mg IV Q12H 25 Days Qty: 50 0RF Rx Instructions: stop date 05/14/25. Dx: MRSA bacteremia. Weekly bmp, cbc, and vanc trough. Fax to [phone]. Routine picc care per protocol. Continued hydroxychloroquine 200 mg tablet 200 mg PO DAILY gabapentin 400 mg capsule 400 mg PO TID multivitamin Tablet 1 tab PO DAILY atorvastatin 20 mg tablet 20 mg PO QHS metoprolol succinate 50 mg tablet extended release 24 hr 50 mg PO QDAY metformin 500 MG tablet 1,000 mg PO BIDCM Patient Comments: diabetes tamsulosin 0.4 MG capsule 0.4 mg PO QHS Patient Comments: bladder aspirin 81 MG tablet,chewable 81 mg PO DAILY Patient Comments: heart health tramadol 50 MG tablet 50 mg PO Q6H PRN PRN (Reason: Pain Or Fever) metoprolol succinate 100 mg tablet extended release 24 hr 50 mg PO DAILY celecoxib [Celebrex] 200 mg capsule 200 mg PO BID Referrals / Follow Up: Mike Solorzano MD [Primary Care Provider] - Within 1 Week Alex Gonzales MD [Med Staff - Active Staff] - Within 2 Weeks Disposition Disposition (needs filled in before D/C Order can be placed): Home, Self Care 04/19/25 4387<Electronically signed by Margarita Harris MD>Margarita Harris MD CC: Dr. Mike Solorzano MD; Dr. Debora Diaz MD; Dr. Alex Gonzales MD ~ Signed [facility] Work Phone: Discharge summary Author Margarita Harris [facility] Note Date/Time April 19, 2025 2: 49pm [facility] Medical Records Department [address] [place] [address] Discharge Summary 04/19/25 1437 MR#: [id number] Acct: [id number] Name: ASCENCION WEIR Rep #:[id number] : 1950 74 From: Margarita Harris MD PCP: Dr. Mike Solorzano MD Status:ADM IN Location: [place] [address] Providers Date of Admission: 04/15/25 Date of Discharge: 04/19/25 Primary Care Physician: Dr. Mike Solorzano MD Consultations 04/15/25 20:15 Consult: Infectious Disease Routine Consulting Provider: Alex Gonzales Reason for Consult: fever of unknown origin up to 104 EMERGENT Consult: No MD Notified: Yes Date Notified: 04/16/25 Time Notified: 06:57 Method of Notification: Text Reason For Visit: HIGH FEVER, METABOLIC ENCEPHALOPATHY Diagnosis Discharge Diagnosis (1) MRSA bacteremia: Status: Acute Code(s): R78.81 - Bacteremia; B95.62 - Methicillin resistant Staphylococcus aureus infection as the cause of diseases classified elsewhere (2) Change in mental status: Status: Acute Code(s): R41.82 - Altered mental status, unspecified (3) Fever of unknown origin: Status: Acute Code(s): R50.9 - Fever, unspecified Plan #MRSA bacteremia * Admitted with a complaint of fever of unknown origin as well as confusion. CT chest abdomen and pelvis did not show any evidence of any infection. * Started on IV vancomycin and Zosyn. * Blood cultures came back positive for MRSA. PCR showing MRSA. * 2D echo showed RVSP of 40 mmHg with EF of 50% and normal left ventricular size with mild to moderate tricuspid valve insufficiency and no regional wall motion abnormalities noted. * ID on board. * had ZAINAB on 04/18/2025 which was negative for any evidence of vegetation. * repeat blood cultures pending. ID on board. * #Strokelike symptoms * Developed dysarthria during this admission. CT of the brain showed no evidence of stroke. * Monitor NIH stroke scale. * on PO aspirin and high intensity statin * MRI of the brain was negative for any evidence of a stroke. * #Pancytopenia: WBC today is up to 3.6 today, with Hb of 11.4 and platelets up to109. It is improving. Will monitor closely. Pancytopenia may be due to the acuteillness and bacteremia. #Type 2 diabetes mellitus: on ISS. 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 stable #LIAN: on CPAP qhs #Chronic back pain: has a spinal stimulator in situ. Follow with pain managementon outpatient basis. DVT prophylaxis: SCDs o/a of thrombocytonepnia Medications at Discharge Home Medications aspirin 81 mg chewable tablet 81 mg PO DAILY heart health 11/21/16 metformin 500 mg tablet 1,000 mg PO BIDCM diabetes 11/21/16 tamsulosin 0.4 mg capsule 0.4 mg PO QHS BPH 11/21/16 gabapentin 400 mg capsule 400 mg PO TID 02/28/20 hydroxychloroquine 200 mg tablet 200 mg PO DAILY 02/28/20 tramadol 50 mg tablet 50 mg PO Q6H PRN PRN Pain Or Fever 05/29/20 multivitamin 1 tab PO DAILY Supplement 06/09/20 celecoxib 200 mg capsule (Celebrex) 200 mg PO BID 06/27/20 atorvastatin 20 mg tablet 20 mg PO QHS 12/22/20 metoprolol succinate 50 mg tablet,extended release 24 hr 50 mg PO QDAY 05/31/24 metoprolol succinate 100 mg tablet,extended release 24 hr 50 mg PO DAILY 04/15/25 vancomycin 1,000 mg intravenous injection 1,000 mg IV Q12H 25 days #50 ea 04/18/25 Hospital Course Operations None Procedures 2-D Echocardiogram and Transesophageal Echo Summary of Care Provided Minutes Spent on Discharge: 45 Hospital Course: Patient is a 74-year-old male with extensive past medical history as outlined including mechanical aortic valve replacement who was admitted through the ED on04/15/2025 with a complaint of confusion, shakes and sweats which started the night before admission. He had associated confusion. In the ED he was febrile and tachycardic and he was breathing at 18 with pulse ox of 95% on room air. CBC showed WBC of 3.1 with hemoglobin of 12.6 and platelets of 100. Chemistry essentially unremarkable urinalysis did not show any evidence of UTI. Chest x-ray showed no acute cardiopulmonary pathology. Lactic acid was 1.6. Blood and urine cultures were ordered and he was started on IV vancomycin and Zosyn. CT of the chest abdomen and pelvis showed only some inflammatory changes in the right lower lobe but no other acute pathology. He was therefore admitted to be managed for fever of unknown origin. ID was consulted. Stroke alert was calledduring the admission as in the evening of the day of admission he was found to be dysarthric and more confused. CT of the brain showed no evidence of stroke and MRI of the brain also showed no evidence of stroke. CTA of the head and neck showed no hemodynamically significant stenosis. Blood cultures came back positive for MRSA. 2D echo done showed no evidence of vegetation. He did have a ZAINAB also which showed no evidence of vegetation. ID was consulted. His repeat blood cultures were negative. Patient symptoms improved and he felt muchbetter. He was therefore discharged home on 04/19/2025 on IV vancomycin for a 6-week course with stop date of 05/14/2025. He is to have weekly CBC, BMP and Vanco trough to be sent to the ID doctor's office. Patient seen and examined prior to discharge. He had no active complaints. He had an uneventful night. Review of systems otherwise negative. Labs and vitalsreviewed. Home medication reviewed and reconciled. Physical Exam Const alert, oriented x3 and no apparent distress General Appearance: cooperative and comfortable Orientation / Consciousness: confused HEENT normocephalic, head/scalp atraumatic, hearing grossly normal bilaterally, moist oral mucous membranes, oropharynx normal and gingiva normal Mouth: oral and palatal mucosa normal Eyes PERRL and EOMs intact bilaterally Neck no lymphadenopathy and supple Lymph Lymphatic: no lymphedema noted Resp normal respiratory effort, normal air movement, no use of accessory muscles and clear to auscultation bilaterally Cardio regular rate, regular rhythm, S1 normal heart sound, S2 normal heart sound and no murmurs GI normal to inspection, nondistended, normoactive bowel sounds, soft to palpation and non-tender Extremity normal to inspection, normal capillary refill, no clubbing, cyanosis or edema and no calf tenderness General Extremity: no tenderness to palpation of joints or extremities Skin General Skin Exam: no breakdown Neuro oriented x3, CN's II-XII intact bilaterally, moves all extremities, no focal motor deficits and no sensory deficits noted Sensorium / Orientation: alert, oriented to person and oriented to place Motor Exam: general weakness Psych thought process normal and cooperative Appearance: appropriate Weight / BMI Weight Weight: 185 lb 13.595 oz Body Mass Index (BMI) 29.9 ABG / Lab / Microbiology Data 04/19/25 04:57 04/19/25 04:57 Laboratory: Laboratory Results - last 24 hr 04/18/25 20:40: Vancomycin Trough 12.3 04/18/25 21:51: POC Glucose 260 H 04/19/25 04:57: WBC 3.6 L, RBC 3.60 L, Hgb 11.4 L, Hct 31.5 L, MCV 87.5, MCH 31.7, MCHC 36.2 H, RDW Std Deviation 40.7, RDW Coeff of Liang 12.7, Plt Count 109 L, MPV 9.4, Immature Gran % (Auto) 0.300, Neut % (Auto) 44.8 L, Lymph % (Auto) 30.1, [place] % (Auto) 17.7 H, Eos % (Auto) 6.5 H, Baso % (Auto) 0.6, Absolute Neuts (auto) 1.6 L, Absolute Lymphs (auto) 1.07, Nucleated RBC % 0, Sodium 137, Potassium 3.9, Chloride 102, Carbon Dioxide 23.6, Anion Gap 12, BUN 10, Creatinine 0.82, Estim Creat Clear Calc 78.05, Est GFR (MDRD) Non-Af 91, BUN/Creatinine Ratio 12.7, Glucose 238 H, Calcium 9.0 04/19/25 05:42: POC Glucose 234 H 04/19/25 11:32: POC Glucose 221 H Microbiology: Microbiology 04/16/25 10:50 Blood Culture (Wb) - Right Hand Blood Culture - Preliminary No growth in 48 hours. 04/15/25 14:50 Blood Culture (Wb) - Anticubital Left Blood Culture - Final Staphylococcus aureus 04/15/25 14:36 Blood Culture (Wb) - Anticubital Right Bacteria Detection (PCR) - Final Meth. resistant Staph. aureus mecA Resistance Marker 04/15/25 14:36 Blood Culture (Wb) - Anticubital Right Blood Culture - Final Meth. resistant Staph. aureus 04/15/25 15:05 Urine, Catheterized Urine Culture - Final Culture exhibits no growth. 04/15/25 22:00 Mucosa - Nasopharyngeal Respiratory Panel (PCR) - Final 04/15/25 15:05 Mucosa - Nose SARS-CoV-2, Influenza & RSV (PCR) - Final D/C Instructions Discharge Activity: Return to Normal Activity Weight Bearing Status: Weight bearing as tolerated Call your doctor if you observe: Fever of 101 or Higher, Shortness of breath, Dizziness, Swelling in the ankles and Chest pain DC O2, CPAP, BIPAP Needs Home O2 Discharge instructions: No Meaningful Use Info Meaningful Use Meaningful Use Diagnoses (Choose all that apply): None applicable Discharge Plan Admission Admit Date/Time: 04/15/25 19:38 Primary Reason for Your Visit: MRSA bacteremia Attending Provider: Margarita Harris Primary Care Provider: Mike Solorzano Consulting Providers: Debora Diaz; Alex Gonzales Instructions Patient Instructions: MRSA, ED Bacteremia, Suspected (Adult) Discharge Orders/Prescriptions Prescriptions: New vancomycin 1,000 mg recon soln 1,000 mg IV Q12H 25 Days Qty: 50 0RF Rx Instructions: stop date 05/14/25. Dx: MRSA bacteremia. Weekly bmp, cbc, and vanc trough. Fax to [phone]. Routine picc care per protocol. Continued hydroxychloroquine 200 mg tablet 200 mg PO DAILY gabapentin 400 mg capsule 400 mg PO TID multivitamin Tablet 1 tab PO DAILY atorvastatin 20 mg tablet 20 mg PO QHS metoprolol succinate 50 mg tablet extended release 24 hr 50 mg PO QDAY metformin 500 MG tablet 1,000 mg PO BIDCM Patient Comments: diabetes tamsulosin 0.4 MG capsule 0.4 mg PO QHS Patient Comments: bladder aspirin 81 MG tablet,chewable 81 mg PO DAILY Patient Comments: heart health tramadol 50 MG tablet 50 mg PO Q6H PRN PRN (Reason: Pain Or Fever) metoprolol succinate 100 mg tablet extended release 24 hr 50 mg PO DAILY celecoxib [Celebrex] 200 mg capsule 200 mg PO BID Referrals / Follow Up: Mike Solorzano MD [Primary Care Provider] - Within 1 Week Alex Gonzales MD [Med Staff - Active Staff] - Within 2 Weeks Disposition Disposition (needs filled in before D/C Order can be placed): Home, Self Care Charges/Coding Visit Charges Inpatient E&M: 68887 Disch Hosp >30min 04/19/25 1449 <Electronically signed by Margarita Harris MD> Cosigner Signature (if applicable): CC: Dr. Mike Solorzano MD; Dr. 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 Benign essential hypertension chronic History of aortic valve repl acement with bioprosthetic valve April, chronic [facility] Work Phone: Evaluation note* Diagnosis Controlled type 2 diabetes mellitus with diabetic neuropathy, with long-term current use of insulin (HCC) [facility] Screening for colon cancer- Primary [...] Other specified counseling documented in this encounter [facility] Diagnosis Sodium blood decreased- Primary Hyposmolality and/or hyponatremia [facility]* Diagnosis Lumbar degenerative disc disease Degeneration of lumbar or lumbosacral intervertebral disc documented in this encounter [facility]* Diagnosis Lumbar degenerative disc disease Degeneration of lumbar or lumbosacral intervertebral disc documented in this encounter [facility] noteNo assessment information availableWMadison Health Work Phone: Evaluation note* Diagnosis Controlled type 2 diabetes mellitus with diabetic neuropathy, with long-term current use of insulin ([facility]) documented in this encounter [facility]* Diagnosis Varicose veins of leg with pain, right- Primary documented in this encounter [facility]* Diagnosis Chronic idiopathic urticaria Idiopathic urticaria [facility] Diagnosis Lumbar degenerative disc disease Degeneration of lumbar or lumbosacral intervertebral disc [facility] Diagnosis Controlled type 2 diabetes mellitus with diabetic neuropathy, with long-term current use of insulin ([facility]) documented in this encounter [facility]* Diagnosis Lumbar degenerative disc disease- Primary [...] [facility] Diagnosis Lumbar degenerative disc disease Degeneration of lumbar or lumbosacral intervertebral disc [facility]* Diagnosis LIAN (obstructive sleep apnea)- Primary Obstructive sleep apnea (adult) (pediatric) [facility]* Diagnosis Lumbar degenerative disc disease- Primary Degeneration of lumbar or lumbosacral intervertebral disc [facility] Lumbar spondylosis- Primary Lumbosacral spondylosis without myelopathy [facility] Diagnosis Lumbar degenerative disc disease Degeneration of lumbar or lumbosacral intervertebral disc Lumbar spondylosis Lumbosacral spondylosis without myelopathy [facility] Diagnosis Rash- Primary Rash and other nonspecific skin eruption [facility] Diagnosis Chronic idiopathic urticaria Idiopathic urticaria [facility] Diagnosis Mixed hyperlipidemia Essential hypertension, benign [facility] Diagnosis Lumbar spondylosis Lumbosacral spondylosis without myelopathy Controlled type 2 diabetes mellitus with diabetic neuropathy, with long-term current use of insulin (HCC) [facility]* Diagnosis Lumbar spondylosis Lumbosacral spondylosis without myelopathy [facility] Diagnosis Mixed hyperlipidemia- Primary Controlled type 2 diabetes mellitus with diabetic neuropathy, with long-term current use of insulin (HCC) Essential hypertension, benign [facility] Diagnosis Controlled type 2 diabetes mellitus with diabetic neuropathy, with long-term current use of insulin (HCC)- Primary Essential hypertension, benign Mixed hyperlipidemia [facility] Diagnosis Essential hypertension, benign [facility] Diagnosis Lumbar degenerative disc disease Degeneration of lumbar or lumbosacral intervertebral disc [facility] Diagnosis LIAN (obstructive sleep apnea)- [...] other chronic disease [facility] Diagnosis Lumbosacral neuritis Thoracic or lumbosacral neuritis or radiculitis, unspecified Lumbar spondylosis Lumbosacral spondylosis without myelopathy [facility] Diagnosis Contact dermatitis due to plant- Primary Contact dermatitis and other eczema due to plants (except food) [facility]* Diagnosis Lumbosacral neuritis Thoracic or lumbosacral neuritis or radiculitis, unspecified Lumbar spondylosis Lumbosacral spondylosis without myelopathy [facility] Hospital discharge follow-up- Primary Other follow-up examination MRSA bacteremia Bacteremia Controlled type 2 diabetes mellitus with diabetic neuropathy, with long-term current use of insulin (HCC) Acute left-sided low back pain without sciatica Chronic idiopathic urticaria Idiopathic urticaria Essential hypertension, benign Lumbar spondylosis Lumbosacral spondylosis without myelopathy Long-term use of Plaquenil Encounter for long-term (current) use of other medications [facility] Diagnosis Chronic bilateral low back pain without sciatica- Primary documented in this encounter [facility] course Narrative No data available for this section [facility] Hospital Discharge instructions No data available for this section [facility] Reason for referral (narrative)No reason for referral information availableWMadison Health Work Phone: Reason for visit Narrative* Diagnostic Procedure Only (Urgent) - Closed Specialty Diagnoses / Procedures Referred By Contac t Referred To Contact XR IMAGING Diagnoses Swelling of hand joint, left Procedures XR HAND GENERAL 3V PA/LAT/OBL LEFT RADEX HAND MINIMUM 3 VIEWS Lisa Quintanilla MD [address] [facility] [place] [address] Phone: tel: fax: [place] [phone] Referral ID Status Reason Start Date Expiration Date V isits Requested Visits Authorized [id number] Closed Auto-Generate d Referral 12/05/2024 01/04/2026 1 [...] Documents on File Type Date Recorded 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 Yes April 15, 2025 3:14pm Advance Directives No April 28, 2023 10:01am Advance Directive Response Recorded Date/ Time Do you have a Healthcare Pow er of Service Order Expediter? Yes April 15, 2025 8:16pm Name of Medical Power of Service Order Expediter Kaylynn bradford April 15, 2025 8:16pm Advance Directives No April 28, 2023 10:01am Hospital Course Note Discharge Summary: Cardiotho racic Surgery Ascencion Weir :1950 AGE: 69 y.o. ADMIT DATE: 05/30/2020 DISCHARGE DATE: 06/02/2020 DISCHARGING SURGEON: Jean Claude Killian MD, Office Number: [phone] PRIMARY CARE PHYSICIAN: Aaron Solorzano, VISIT STATUS: Admission CODE STATUS: Full Code SURGERY: S/P AVR, CABG x1 on 05/08/20 by readmit?on?05/30/20 as transfer from [place] [facility] after presenting there with dyspnea, chest [...] with Migue Gregorio 06-19-2020 I will touch base th him next Tuesday. Case discussed with Dr. Louis from (more content not included)... Discharge Instructions * Discharge Instr - Lab* Nahomy Bowers LPN - 05/11/2020 9:58 AM EDT Your physician has ordered skilled home care services for you. Your home care will be provided by: [facility] [phone] SCHEDULING [phone] * Additional Instructions* Velasquez Savage, WHOLESALER - DOUBLE CUTTER - 05/14/2020 [facility]: Cardiothoracic Surgery [address] [facility] #[phone] Notify us if the following occur - [...] Your home care will be provided by: [facility] [phone] * Additional Instructions* Velasquez Savage, WHOLESALER - DOUBLE CUTTER - 06/02/2020 [facility]: Cardiothoracic Surgery [address] [place] [address]. [address] [facility] #[phone] Notify us if the following occur - [...] ointments. documented in this encounter* Instructions* Dulce Jmaes RN - 05/01/2020 Do not eat after [...] please call your surgeon. Please bring your [facility] Information folder on the day of [...] Everywhere. * Coronary Artery Bypass Graft: Pre-op (Italian) * Aortic Valve Replacement: Pre-op (Italian) documented in this encounter History of Present Illness * Kena Tavera, BULLDOZER MECHANIC - 05/14/2020 11:34 AM EDT Physical Therapy Facility/Department: [facility] Daily Treatment Note NAME: [...] patient encounter* Kena Tavera PTA * Arely Mitchell RPH - 05/14/2020 8:04 AM EDT [facility] Anticoagulation Management Service ([facility]) Inpatient Warfarin Consult HPI: Ascencion Weir is a 69 y.o. male admitted on 05/08/2020 for S/P AVR. Past Medical History: Diagnosis Date Arthritis Benign prostatic hyperplasia CAD (coronary artery disease) Chronic back pain CPAP (continuous positive airway pressure) dependence Diabetes mellitus (HCC) Hyperlipidemia Hypertension Nonrheumatic aortic (valve) stenosis Obesity Sleep apnea Patient is newly referred to the [facility] clinic for warfarin management. Pt was [...] dose accordingly 3. Will facilitate f/u at [facility] upon discharge 4. Provided warfarin education including [employer] warfarin booklet Arely Mitchell PharmD [facility] is available daily [phone] via Polyera. If no response on [employer] then please [phone]. * Kena Tavera PTA - 05/13/2020 12:15 PM EDT Physical Therapy Facility/Department: [facility] HEART & LUNG Daily Treatment Note NAME: [...] by me during patient encounter* Kena Tavera, BULLDOZER MECHANIC Associated attestation - Colin Ramirez PT - 05/13/2020 12:33 PM EDT Pt's performance nicely improved. Would be amenable to home based on family support, but feel, if pt wished/ physician approved, rehab could still be an option to increase functional endurance. * Skylar Jang MD - 05/13/2020 10:43 AM EDT ENDOCRINOLOGY PROGRESS NOTE Patient: Ascencion Weir Unit/Bed:[id number]/1HLU21 Date of : 1950 Admit date: 05/08/2020 Patient Seen,Chart, Consults notes, Labs, Radiology studies reviewed. 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 * Arely Mitchell [facility] - 05/13/2020 8:29 AM EDT [facility] Anticoagulation Management Service ([facility]) Inpatient Warfarin Consult HPI: Ascencion Weir is a 69 y.o. male admitted on 05/08/2020 for S/P AVR. Past Medical History: Diagnosis Date Arthritis Benign prostatic hyperplasia CAD (coronary artery disease) Chronic back pain CPAP (continuous positive airway pressure) dependence Diabetes mellitus (HCC) Hyperlipidemia Hypertension Nonrheumatic aortic (valve) stenosis Obesity Sleep apnea Patient is newly referred to the [facility] clinic for warfarin management. Pt was [...] dose accordingly 3. Will facilitate f/u at [facility] upon discharge 4. Provided warfarin education including [facility] warfarin booklet Arely Mitchell PharmD [facility] is available daily [phone] via Polyera. If no response on GIS Cloudve then please [phone]. * Velasquez Savage, ARIADNE - DOUBLE CUTTER - 05/13/2020 6:04 AM EDT Cardiothoracic Surgery [...] Problem List Diagnosis Code Coronary atherosclerosis of marshall coronary artery I25.10 Aortic valve stenosis I35.0 [...] This note may have been dictated using LivePerson Practice Edition 2.6 and/or Kuddle Voice Recognition Feature. The document was proofread, however unrecognized voice recognition cis coordinator errors may be present. * Valentina Gonzalez, [...] just ordered a meal. Denies n/v. 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 HEART & LUNG Daily Treatment Note NAME: [...] by me during patient encounter* Kena Tavera, MARCI * Fannie Dunn, [facility] - 05/12/2020 10:05 AM EDT [facility] Anticoagulation Management Service ([facility]) Inpatient Warfarin Consult HPI: Ascencion Weir is a 69 y.o. male admitted on 05/08/2020 for S/P AVR. Past Medical History: Diagnosis Date Arthritis Benign prostatic hyperplasia CAD (coronary artery disease) Chronic back pain CPAP (continuous positive airway pressure) dependence Diabetes mellitus (HCC) Hyperlipidemia Hypertension Nonrheumatic aortic (valve) stenosis Obesity Sleep apnea Patient is newly referred to the [facility] clinic for warfarin management. Pt was [...] dose accordingly 3. Will facilitate f/u at [facility] upon discharge 4. Provided warfarin education including [facility] warfarin booklet Fannie Dunn, PharmD [facility] is available daily [phone] via Polyera. If no response on Polyera then please [email or web address]. * Kaleigh Dietz, WHOLESALER - DOUBLE CUTTER - 05/12/2020 8:45 AM EDT . Department [...] 05/08/2020 Original Endocrine Consult date: 05/08/2020 OutPt Head Teller: none Lab Results Component Value Date LABA1C [...] of the results. 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 If there are any questions or concerns related to the info in this note please page the application integration engineer career development consultant directly. On-Call information can be found in the [facility] Online Directory. We appreciate the opportunity to [...] EDT Cardiothoracic Surgery Progress Note PATIENT NAME: Ascecnion Weir : 1950 (69 y.o.) TODAY'S DATE: 05/12/2020 Interval History: 05/08: CABGx1 (SVG to PDA of RCA) left thigh EVH; SAVR (23mm [employer] [place] Trifecta bioprosthesis) POD#4: 25 Albumin/250cc LR/ 1 unit PRBC; hypotension + drop in Hgb. Wore PAP overnight-2LNC during day; was able to sleep. No BM. Patient resting in bed; pain controlled. feels good. Last recorded/verified vitals in [facility] Temp: 98.1 F (36.7 C) Pulse: [...] Problem List Diagnosis Code Coronary atherosclerosis of marshall coronary artery I25.10 Aortic valve stenosis I35.0 [...] This note may have been dictated using [employer] Practice Edition 2.6 and/or Kuddle Voice Recognition Feature. The document was proofread, however unrecognized voice recognition cis coordinator errors may be present. * Steve Landry RPH - 05/11/2020 9:01 AM EDT [facility] Anticoagulation Management Service ([facility]) Inpatient Warfarin Consult HPI: Ascencion Weir is a 69 y.o. male admitted on 05/08/2020 for <principal problem not specified>. Past Medical History: Diagnosis Date Arthritis Benign prostatic hyperplasia CAD (coronary artery disease) Chronic back pain CPAP (continuous positive airway pressure) dependence Diabetes mellitus (HCC) Hyperlipidemia Hypertension Nonrheumatic aortic (valve) stenosis Obesity Sleep apnea Patient is newly referred to the [facility] clinic for warfarin management. Pt was [...] Will determine if pt is agreeable to [facility] follow-up 4. Will provide warfarin education Thank you for this consult Steve Landry PharmD [facility] is available daily [phone] via Polyera. If no response on ASSURED INFORMATION SECURITYServe then please [phone]. * Kaleigh Dietz Evy, WHOLESALER - DOUBLE CUTTER - 05/11/2020 8:19 AM EDT . Department [...] 05/08/2020 Original Endocrine Consult date: 05/08/2020 OutPt Head Teller: none Lab Results Component Value Date LABA1C [...] of the results. 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 If there are any questions or concerns related to the info in this note please page the application integration engineer career development consultant directly. On-Call information can be found in the [facility] Online Directory. We appreciate the opportunity to [...] (99.8 kg) Labs: BMP: Recent Labs 05/09/20 0335 05/10/20 0526 05/11/20 0346 NA 136 131* 130* K 4.4 4.3 4.4 CL 104 100 97* CO2 22 22 27 BUN 17 18 24* CREATININE 1.04 0.88 0.96 GLUCOSE 84 189* 174* . CBC: Recent Labs 05/09/20 0335 05/10/20 0526 05/11/20 0520 WBC 7.5 7.3 5.7 RBC 2.55* [...] morning of surgery 04/22/20 Velasquez Savage APRN -DOUBLE CUTTER Dulaglutide 1.5 MG/0.5ML SOPN Inject 1.5 mg [...] elevates 10. Disposition: Continue progressive care in U Blood Conservation Initiative Log: - 05/08 Platelets, [...] 05/10/2020 3:28 PM EDT Physical Therapy Facility/Department: [facility] HEART & LUNG Daily Treatment Note NAME: [...] 2L O2 via NC. General Comment Comments: cindi, CT x 2, tele, O2 Pain Screening [...] keep Nezzie walker closer to self, this BULLDOZER MECHANIC kept a hand on the walker so [...] Code Treatment Minutes: 31 Minutes(gait, TP) *This BULLDOZER MECHANIC wore KN95, gloves and safety glasses during whole treatment session.* Camille Lara, BULLDOZER MECHANIC * Kaleigh Dietz, WHOLESALER - DOUBLE CUTTER - 05/10/2020 8:14 AM EDT . Department [...] 05/08/2020 Original Endocrine Consult date: 05/08/2020 OutPt Head Teller: none Lab Results Component Value Date LABA1C [...] of the results. 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 If there are any questions or concerns related to the info in this note please page the application integration engineer career development consultant directly. On-Call information can be found in the [facility] Online Directory. We appreciate the opportunity to [...] 97% BMI 33.45 kg/m I/O: Date 05/10/20 - 05/10/209 Shift 0700-7852 3952-9811 5596-5958 24 Hour Total INTAKE Shift Total(mL/kg) OUTPUT Urine(mL/kg/hr) 115 115 Chest Tube 70 70 Shift Total(mL/kg) 185(1.9) 185(1.9) Weight (kg) 99.8 99.8 99.8 99.8 Weights: Patient Vitals for the past 96 hrs (Last 3 readings): Weight 05/08/20 0556 220 lb (99.8 kg) Labs: BMP: Recent Labs 05/08/20220005/09/2033405/10/20 0526 NA 137 136 131* K 4.4 4.4 4.3 CL 106 104 100 CO2 22 22 22 BUN 15 17 18 CREATININE 0.88 1.04 0.88 GLUCOSE 82 84 189* . CBC: Recent Labs 05/08/20220005/09/2033405/10/20 0526 WBC 6.1 7.5 7.3 RBC 2.78* [...] Units into the skin nightly Yes Historical ProviderMD Multiple Vitamins-Minerals (THERAPEUTIC MULTIVITAMIN-MINERALS) tablet Take 1 tablet by mouth daily Yes Historical Provider vitamin C (ASCORBIC ACID) 500 MG tablet [...] the morning of surgery 04/22/20 Velasquez Savage, WHOLESALER -DOUBLE CUTTER Dulaglutide 1.5 MG/0.5ML SOPN Inject 1.5 mg [...] elevates 9. Disposition: Continue progressive care in U Blood Conservation Initiative Log: - 05/08 Platelets, FFP, 2 RPBC * Colin Ramirez, PT - 05/09/2020 3:52 PM EDT Physical Therapy Facility/Department: [facility] HEART & LUNG Initial Assessment NAME: Ascencion [...] by L hip pain/ weakness. 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 Sit to [...] Ambulation Assistance: Independent Transfer Assistance: Independent Active Reliner: Yes Mode of Transportation: Car Occupation: Retired [employer] Comments: cooks, granddtr there as well. Dtr drives. Pt notes has bad back, so she'slimited carrying things, etc. Pt loves to mow lawn. 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 PT wore N95 [...] is s/p CABG x 1 and AVR 9/10. Extubated with diet ordered. Recieving nursing care [...] loss Estimated Daily Nutrient Needs: Energy (kcal): 3798-3871; Weight Used for Energy Requirements: [place] Protein (g): 84-98; Weight Used for Protein Requirements: [place](1.2-1.4g/kg) Fluid (ml/day): Per MD; Weight Used for [...] (100.7 kg)(209# on 05/01/20, 222# on 04/22/20) [place] Body Weight: 154 lbs; % [place] Body Weight 142.9 % BMI: 33.5 BMI [...] Planning: Too soon to determine Contact: pager [phone] * Kaleigh Dietz, WHOLESALER - DOUBLE CUTTER - 05/09/2020 9:51 AM EDT Department of [...] 05/08/2020 Original Endocrine Consult date: 05/08/2020 OutPt Head Teller: none Lab Results Component Value Date LABA1C [...] of the results. 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 If there are any questions or concerns related to the info in this note please page the application integration engineer career development consultant directly. On-Call information can be found in the [facility] Online Directory. We appreciate the opportunity to [...] sodium-NaCl Stopped (05/08/20 1730) CBC: Recent Labs 05/08/20 1101 05/08/20 2201 05/09/20 0335 WBC 5.6 6.1 7.5 HGB 8.3* 8.6* 8.0* HCT 23.8* 24.7* 22.7* PLT 81* 103* 98* BMP: Recent Labs 05/08/20 1101 05/08/20220005/09/20 0335 NA 137 137 136 K 3.8 [...] INR 1.5* 1.1 BLOOD GAS: Recent Labs 05/08/20 110 PHART 7.383 [id number] 41.1 PO2ART 393.5* JUM3VHB 23.9 C4BTLPLW 99.3 Objective: Vitals: Temp (24hrs), Av.3 F (36.3 C), Min:97.3 F (36.3 C), Max:97.3 F (36.3 C) BP (!) 120/52 Pulse 76 Temp 97.3 F (36.3 C) (Core) Resp 17 Ht 5' 8 (1.727 m) Wt 220 lb (99.8 kg) SpO2 98% BMI 33.45 kg/m I/O: Date 05/08/20 07 - 05/09/20 0705/09/20 07 - 05/10/20 0700 Shift 7951-1818 1769-7277 0447-1056 24 Hour Total 5539-1075 1908-3374 1254-3108 24 Hour Total INTAKE I.V. 781 781 NG/GT 150 150 Shift Total 931 931 OUTPUT Urine 670 102 961 6015 Chest Tube 160 180 172 512 Shift Total [address] [place] [address] 60 -299 -2830 Ventilator Settings: Vent Mode: Tube Compensation Rate Set: 12 bmp Vt Ordered: 500 mL Pressure Support: 0 cmH20 PEEP/CPAP: 5 FiO2 : 50 % PHYSICAL EXAM: General Appearance: [x]WDWN []Obese []Cachectic []Thin []ill Skin: Temperature [x]Warm []Cool Rash []Yes [x]No Tattoo(s) []Yes []No HEENT: Pupils round and react [x]Yes []No Sclera []Icteric [x]Non-Icteric Conjunctiva []Injected [x]Non-Injected Pinnae []Normal []Other Dentitian [][place] []Dentures []edentulous Oral Mucosa [x][place] [x]Moist []Dry Oral ETT []Present [x]Absent Neck: [...] [x]Absent RANDALL ([x]RUE [x]RLE [x]LUE [x]LLE) Neurologic: [place] []Yes [x]No Corneal reflexes [x]Present []Absent Plantar [...] DVT prophylaxis--scds Nutrition--po See orders. * Velasquez Savage, WHOLESALER - DOUBLE CUTTER - 05/09/2020 5:56 AM EDT Cardiothoracic Surgery Progress Note PATIENT NAME: Ascencion Weir : 1950 (69 y.o.) TODAY'S DATE: 05/09/2020 Interval History:POD#1 05-08-2020 1. CABG X 1: SVG to PDA of RCA 2. EVH left thigh 3. SAVR 23mm [employer] [place]asper Trifecta bioprosthesis 4. Intraop ZAINAB Pt doing well overnight, on room air, scooter gtt at .4, C&DB, no complaints, CTx3 - RIJ with swan - given 1 liter overnight with albumin - negative 1liter since surgery. HGB at 8, CXR clear Last recorded/verified vitals in [facility] Temp: 97.3 F (36.3 C) Pulse: [...] Problem List Diagnosis Code Coronary atherosclerosis of marshall coronary artery I25.10 Aortic valve stenosis I35.0 Aortic stenosis, severe I35.0 Uncontrolled type 2 diabetes mellitus with complication (HCC) E11.8, E11.65 CAD / AVS / DM II Give him volume and albumin then DC ZAHRA blanco in chair, pain control Continue care per [...] This note may have been dictated using LivePerson Practice Edition 2.6 and/or Kuddle Voice Recognition Feature. The document was proofread, however unrecognized voice recognition cis coordinator errors may be present. * Ascencion Rodriguez MD - 05/08/2020 5:12 PM EDT Pt extubated. No stridor, no resp distress. Ongoing ICU care * Gloria Estevez RCP - 05/08/2020 4:02 PM EDT [facility] Respiratory Care Department Progress Note Spontaneous [...] Dr. Sanchez Time results reported to physician: 6041 Thank you for involving Respiratory in the [...] Patel MD - 06/02/2020 12:31 PM EDT [facility] HEART & LUNG [address] [place] [address] Dept: [phone] Loc: [phone] Visit Date: 06/02/2020 HPI: Ascencion Weir is [...] tablet 325 mg 325 mg Oral Daily Migue Gregorio APRN - FIELD AUTO APPRAISER 325 mg at 06/02/20 0840 ibuprofen (ADVIL;MOTRIN) [...] 200 mg 200 mg Oral Daily Velasquez Savage APRN - DOUBLE CUTTER 200 mg at 06/02/20 0840 atorvastatin (LIPITOR) tablet 80 mg 80 mg Oral Nightly Velasquez Savage APRN - DOUBLE CUTTER 80 mg at 06/01/202116 gabapentin (NEURONTIN) capsule 400 mg 400 mg Oral TID Velasquez Savage APRN - DOUBLE CUTTER 400 mg at 06/02/20 0840 metoprolol tartrate (LOPRESSOR) tablet 25 mg 25 mg Oral BID Migue ARIADNE Gregorio 25 mg at 06/02/200840 pantoprazole (PROTONIX) tablet 40 mg 40 mg Oral QAM AC Velasquez Savage APRN - DOUBLE CUTTER 40 mg at 06/02/20 0840 tamsulosin (FLOMAX) capsule 0.4 mg 0.4 mg Oral Daily Velasquez Savage APRN - DOUBLE CUTTER 0.4 mg at 06/02/200851 sodium chloride flush 0.9 % injection 10 mL 10 mL Intravenous 2 times per day Velasquez Savage APRN- DOUBLE CUTTER 10 mL at 06/02/20 0854 sodium chloride flush 0.9 % injection 10 mL 10 mL Intravenous PRN Velasquez Savage WHOLESALER - DOUBLE CUTTER acetaminophen (TYLENOL) tablet 650 mg 650 mg Oral Q6H PRN Velasquez Savage WHOLESALER - DOUBLE CUTTER 650 mg at 06/01/202116 Or acetaminophen (TYLENOL) suppository 650 mg 650 mg Rectal Q6H PRN Velasquez Savage WHOLESALER - DOUBLE CUTTER polyethylene glycol (GLYCOLAX) packet 17 g 17 g Oral Daily PRN Velasquez Powers Janette WHOLESALER - DOUBLE CUTTER promethazine (PHENERGAN) tablet 12.5 mg 12.5 mg Oral Q6H PRN Velasquez R Janette, WHOLESALER - DOUBLE CUTTER Or ondansetron (ZOFRAN) injection 4 mg 4 mg Intravenous Q6H PRN Velasquez Gio Janette, WHOLESALER - DOUBLE CUTTER oxyCODONE-acetaminophen (PERCOCET) 5-325 MG per tablet 1 tablet 1 tablet Oral Q6H PRN Velasquez Gio Janette, WHOLESALER - DOUBLE CUTTER 1 tablet at 06/02/20 0840 lidocaine 4 % external patch 2 patch 2 patch Transdermal Daily Velasquez Savage WHOLESALER - DOUBLE CUTTER 2 patch at 06/02/20 0840 magnesium sulfate 4 g in 100 mL IVPB premix 4 g Intravenous PRN Velasquez Gio Janette WHOLESALER - DOUBLE CUTTER heparin (porcine) injection 5,000 Units 5,000 Units Subcutaneous BID Velasquez Powers Janette WHOLESALER - DOUBLE CUTTER 5,000 Units at 06/02/20 0840 piperacillin-tazobactam (ZOSYN) 4.5 g in dextrose 100 mL IVPB extended infusion (premix) 4.5 g Intravenous Q6H Velasquez Powers Janette WHOLESALER - DOUBLE CUTTER 33.3 mL/hr at 06/02/20 0924 4.5 g at 06/02/20 0924 colchicine (COLCRYS) tablet 0.6 mg 0.6 mg Oral BID Velasquez Savage WHOLESALER - DOUBLE CUTTER 0.6 mg at 06/02/20 0842 melatonin ER tablet 2 mg 2 mg Oral Nightly PRN Jean Claude Killain MD 2 mg at 06/01/202116 Allergies Allergen [...] Range: >60 mL/min 85.9 EGFR IF NonAfrican [place] Citizen Latest Ref Range: >60 mL/min 74.1 Magnesium [...] file. Anuel Patel MD * Velasquez Savage, WHOLESALER - DOUBLE CUTTER - 06/02/2020 6:19 AM EDT Cardiothoracic Surgery Progress Note PATIENT NAME: Ascencion Weir : 1950 (69 y.o.) TODAY'S DATE: 06/02/2020 Interval History: S/P AVR, CABG x1 on 05/08/20 by readmit on 05/30/20 as transfer from [facility] ED after presenting there with dyspnea, chest [...] weeks I&O -615 Last recorded/verified vitals in [facility] Temp: 96.8 F (36 C) Pulse: [...] Problem List Diagnosis Code Coronary atherosclerosis of marshall coronary artery I25.10 Aortic valve stenosis I35.0 Aortic stenosis, severe I35.0 Uncontrolled type 2 diabetes mellitus with complication (HCC) E11.8, E11.65 S/P CABG x 1 Z95.1 S/P AVR Z95.2 Sleep apnea G47.30 Benign prostatic hyperplasia N40.0 Hyperlipidemia E78.5 Chronic back pain M54.9, G89.29 Hypertension I10 Arthritis M19.90 Postoperative anemia due to acute blood loss D62 Thrombocytopenia (HCC) D69.6 Postoperative atrial fibrillation (HCC) I97.89, I48.91 Abscess L02.91 Acute pericarditis I30.9 [...] This note may have been dictated using LivePerson Practice Edition 2.6 and/or Kuddle Voice Recognition Feature. The document was proofread, however unrecognized voice recognition cis coordinator errors may be present. * Ban Bryan MD - 05/31/2020 12:00 PM EDT [facility] - Infectious Diseases Attending Progress Note Reason [...] 05/31/202002 (!) 111/56 83 21 98 % 05/31/201999 97.8 F (36.6 C) 84 20 96 [...] CO2 26 06/01/2020 0440 BUN 19 06/01/2020 0440 CREATININE 1.04 06/01/2020 0440 GLUCOSE 175 (H) [...] and fevers that started acutely [address] chest showed a mediastinal abscess. Pt was transferred to [facility] for further treatment. ZAINAB 05/30 showed medium [...] ID to continue to follow. Please call/text [phone] with any questions. I spent over 51% total time 25 minutes counseling (or coordinating care) and provided discussion regarding Ban Bryan MD * Migue Gregorio APRN - FIELD AUTO APPRAISER - 05/31/2020 6:47 AM EDT Cardiothoracic Surgery Progress Note 05/31/2020 Subjective: Admit Date: 05/30/2020 Interval History: S/P AVR, CABG x1 on 05/08/20 by then discharged home on 05/14/20 with readmit yesterday 05/30/20 as transfer from [facility] ED after presenting there with dyspnea, chest [...] Date 05/31/20 0000 - 05/31/20 2359 Shift 1521-4710 0954-6737 4640-8273 24 Hour Total INTAKE I.V.(mL/kg/hr) 561 561 [...] MPV 7.7 7.8 Hepatic: Recent Labs 05/30/20 0320 AST 26 ALT 17 BILITOT 0.6 ALKPHOS [...] 1 tablet by mouth 2 times daily 05/19/20Aug ARIADNE Gregorio sodium chloride (ALTAMIST SPRAY) 0.65 % nasal [...] 5 MG tablet Take as directed by [facility] Anticoagulation Clinic (30 tablets= 30 daysupply) 05/14/20 Doug Rodriguez MD traMADol (ULTRAM) 50 MG tablet Take 50 mg by mouth every 6 hours as needed for Pain. Historical Provider, insulin detemir (LEVEMIR) 100 UNIT/ML injection vial Inject 28 Units into the skin nightly Taking 14 units since 05/25 per self Historical ProviderMD Multiple Vitamins-Minerals (THERAPEUTIC MULTIVITAMIN-MINERALS) tablet Take 1 tablet by mouth daily Historical ProviderMD vitamin C (ASCORBIC ACID) 500 MG tablet Take 500 mg by mouth daily Historical ProviderMD aspirin 81 MG EC tablet Take 81 mg by mouth daily Historical ProviderMD tamsulosin (FLOMAX) 0.4 MG capsule Take 0.4 mg by mouth daily Historical ProviderMD metFORMIN (GLUCOPHAGE) 1000 MG tablet Take 1,000 mg by mouth 2 times daily (with meals) Historical ProviderMD Dulaglutide 1.5 MG/0.5ML SOPN Inject 1.5 mg [...] Statin. Sternal precautions, ambulate in purvis, IS -EF 60% on Echo 05/30/20- -Core Medication: [...] plan of care as documented by the resident/FIELD AUTO APPRAISER/RN ORTHO/PA, unless otherwise noted. Jean Claude Killian MD [...] labs, I/O's. Nutrition Assessment: Pt presented to [place] [facility] ED with c/o SOB, CP, night sweats. Pt recently underwent CABGx1 (SVG to PDAof RCA) left thigh EVH; SAVR (23mm [employer] [place] Trifecta bioprosthesis) on 05/08/2020 and was dischargedon 05/14/2020. Noted CT of chest showed abscess, therefore, pt was transferred to [facility] for further evaluation. Pt resting upright in [...] to trial during admit. NKFA. 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 Malnutrition Assessment: Malnutrition Status: Insufficient data Context: Acute Illness Estimated Daily Nutrient Needs: Energy (kcal): 2336-1424; Weight Used for Energy Requirements: [place]((25-28kcals/kg)) Protein (g): 70-84; Weight Used for Protein Requirements: [place](1.0-1.2 g/kg IBW) Fluid (ml/day): Per MD recommendations; [...] Usual Body Weight: 220 lb (99.8 kg)(Per EPIC wt hx) [place] Body Weight: 154 lbs; 140% [place] Body Weight BMI: 33 Adjusted Body Weight: [...] replaced by other means Coronary atherosclerosis of marshall coronary artery Sleep apnea Unspecified sleep apnea [...] severe Aortic valve disorders Coronary atherosclerosis of marshall coronary artery Hyperlipidemia Other and unspecified hyperlipidemia S/P CABG x 1 Postsurgical aortocoronary bypass status DM II (diabetes mellitus, type II), controlled (HCC) Type II or unspecified type diabetes mellitus without mention of complication, not stated as uncontrolled Diagnosis Coronary artery disease involving coronary bypass graft of marshall heart without angina pectoris Pre-op testing Preoperative examination, unspecified Chief Complaint and Reason for Visit Chief Complaint 6 M FU chest pain Reason for Visit HLD (hyperlipidemia) Postoperative atrial fibrillation Atherosclerotic heart disease of marshall coronary artery without angina pectoris Benign essential [...] E ORDERS December 11, 2024 9:1 0am ASHD, RAI December 25, 2024 1:4 1pm BALANCE. RX HERE January 01, 2025 2:30pm Chief Complaint Admit Date ASHD, RAI December 25, 2024 1:4 1pm BALANCE. RX HERE January 01, 2025 2:30pm XRAY LUMBAR SPINE January 09, 2025 11:04 am HIGH FEVER, METABOLIC ENCEPHALOPATHY Aug ust 18th, 2025 7:38pm Chief Complaint Admit Date FREDI GUY December 25, 2024 1:4 1pm BALANCE. RX HERE January 01, 2025 2:30pm XRAY LUMBAR SPINE January 09, 2025 11:04 am HIGH FEVER, METABOLIC ENCEPHALOPATHY Mar 7:38pm HIGH FEVER, METABOLIC ENCEPHALOPATHY Mar 12:25pm HIGH FEVER, METABOLIC ENCEPHALOPATHY Mar 10:04am HIGH FEVER, METABOLIC ENCEPHALOPATHY Mar 11:27am HIGH FEVER, METABOLIC ENCEPHALOPATHY Mar us2024 2:37pm Reason for Visit Admit Date Change in mental status April 15 7:38pm Fever of unknown origin April 15 7:38pm MRSA bacteremia April 15, 2025 7: 38pm SIRS (systemic inflammatory response syn drome) April 15, 2025 7:38pm Type 2 diabetes mellitus with hyperglyce cooper April 15, 2025 7:38pm History of aortic valve replacement Mar 2024 7:38pm Reason for Referral Specialty Diagnoses / Procedures Referred By Contac t Referred To Contact Diagnoses Lumbar degenerative disc disease Aaron Solorzano MD [address] [place] [address] Referral ID Status Reason Start Date Expiration Date Visits Re quested Visits Authorized [id number] Closed 1 1 Specialty Diagnoses / Procedures Referred By Contac t Referred To Contact Gerontology / GERIATRICS Diagnoses Mild cognitive disorder Procedures CONSULT TO GERIATRICS OFFICE/OUTPATIENT [facility] 60 MINUTES Aaron Solorzano MD [address] [place] [address] [address] [address] [place] [address] Referral ID Status Reason Start Date Expiration Date V isits Requested Visits Authorized [id number] Closed PCP Requested Referral 10/17/2023 10/16/2024 1 1 Specialty Diagnoses / Procedures Referred By Contac t Referred To Contact Diagnoses Controlled type 2 diabetes mellitus with diabetic neuropathy, with long-term current use of insulin (HCC) Aaron Solorzano MD [address] [place] [address] Referral ID Status Reason Start Date Expiration Date V isits Requested Visits Authorized [id number] Pending Review 1 1 Specialty Diagnoses / Procedures Referred By Contshane t Referred To Contact Vascular Medicine Diagnoses Varicose veins of leg with pain, right Procedures CONSULT TO VASCULAR MEDICINE OFFICE/OUTPATIENT [facility] 60-74 MINUTES Daxa Moody APRN.DOUBLE CUTTER [address] [place] [address] Referral ID Status Reason Start Date Expiration Date Visits Requested Visits Authorized [id number] Authorized PCP Requested Referral 02/17/2023 02/17/2024 1 1 Additional Source Comments (unrecognized sect ion and content) No Status Records FoundNo Status Records FoundNo Status Records FoundNo Status Records FoundNo Status Records FoundNo Status Records FoundNo Status Records Found INFORMATION SOURCE (unrecogn ized section and content) DATE CREATED AUTHOR 02/17/2018 [facility] DATE CREATED AUTHOR AUTHOR'S ORGANIZ ATION 12/07/2018 [facility] DATE CREATED AUTHOR AUTHOR'S ORGANIZ ATION 07/07/2020 [facility] DATE CREATED AUTHOR AUTHOR'S ORGANIZ ATION 11/08/2021 [facility] DATE CREATED AUTHOR AUTHOR'S ORGANIZ ATION 04/22/2023 [facility] DATE CREATED AUTHOR AUTHOR'S ORGANIZ ATION 04/26/2025 [facility] DATE CREATED AUTHOR AUTHOR'S ORGANIZ ATION 05/07/2025 [facility] Source Comments (unrecognize d section [...] content) Reason Comments Received Outside Medical Records [facility] 11/23/2021 Reason Comments CPAP Supplies RX and Certificate o f medical Necessity Reason Onset Date Comments Refill Request 01/11/2022 Reason Onset Date Comments Refill Request 01/24/2022 Reason Onset Date Comments Refill Request 02/02/2022 Reason Comments Patient Update medication request Reason Comments Abnormal Chest X-ray [facility] Reason Comments Received Outside Medical Records [facility] EKG 03/16/2022 Reason Onset Date Comments Refill Request 03/26/2022 Reason Comments Orders Reason Onset Date Comments Refill Request 05/31/2022 Reason Onset Date Comments Refill Request 07/26/2022 Reason Comments Refill Request Reason Comments Received Outside Medical Records [facility] 08/16/22 Reason Onset Date Comments Refill Request 08/18/2022 Reason Comments Follow Up Diabetes Reason Comments Results Reason Comments CPAP Supplies [facility] [facility] [employer] New order for supplies 11/11/2022 Reason Comments Orders CPAP supplies [facility] Reason Comments Medication Request Reason Comments Varicose Veins Right leg painful Reason Comments Medication Request Not on current list Reason Onset Date Comments [facility] 03/02/2023 [facility] Reason Comments Patient Update Reason Onset Date Comments Refill Request 04/15/2023 Reason Comments diabetic shoes Reason Comments No Show (Not No Show, patient called to cancel) Reason Comments Received Outside Medical Records [facility] 05/10/23 Reason Comments Refill Request Medication Request Reason Onset Date Comments Refill Request 06/10/2023 Reason Comments Follow Up Reason Comments Insurance Authorization [facility] Additional information for prior authorization for Levemir 06/17/2023 Reason Onset Date Comments Refill Request 07/14/2023 Reason Comments Medication Request Amoxicillin for dent al work appointments - needs at least 2 visits worth Reason Onset Date Comments Refill Request 08/11/2023 Reason Onset Date Comments [facility] 10/13/2023 [facility] Outreach Reason Onset Date Comments Neuropathy 10/14/2023 [...] Comments Received Outside Medical Records Carotid Duplex US [facility] Reason Comments medication requested not on current med list Reason Onset Date Comments Refill Request 02/07/2024 Reason Onset Date Comments requesting medication that is . Reason Comments Received Outside Medical Records [facility] Visit summary 03/08/2024 Right elbow pain and swelling. Reason Onset Date Comments Refill Request 03/19/2024 Reason Comments Received Outside Medical Records [facility] CTA head and Neck with contrast. 03/29/2024 Reason Comments Rx refill; not on current med list Reason Onset Date Comments Refill Request 05/04/2024 Reason Comments Rash itching x 1 week, on back and arms Reason Comments Received Outside Medical Records [facility] Reason Onset Date Comments Refill Request 07/09/2024 Reason Comments medication not on current med list Patient Question Reason Comments Follow Up diabetes Reason Comments Patient Question Reason Onset Date Comments Refill Request 09/14/2024 Reason Onset Date Comments Refill Request 11/06/2024 Reason Comments Follow Up Reason Comments Received Outside Medical Records [facility] phy sical therapy Reason Comments Received Outside Medical Records [facility] christos Maravilla MD 11/28/24 [facility] Reason Comments left hand pain Left hand swelling x 2 weeks Reason Comments Received Outside Medical Records [facility] lab s Reason Comments Received Outside Medical Records [facility] Reason Onset Date Comments Refill Request 01/01/2025 Reason Comments Received Outside Medical Records [facility] PT discharge Reason Comments medication question Reason Comments 6 Month Exam Reason Onset Date Comments Population Health Navigation Outreach 02/13/2025 [facility] Reason Onset Date Comments requesting medication 02/18/2025 Reason Onset Date Comments Refill Request 03/08/2025 Needs today Reason Comments Rash Rash on MADAN legs x 4 days Reason Onset Date Comments Refill Request 03/29/2025 Reason Comments Received Outside Medical Records [facility] ED Reason Comments Received Outside Medical Records [facility] lab BMP, CBC vanco 04/23/2025 Reason Comments Follow Up Hospital Care Teams (unrecognized sec tion and content) Radio Frequency Design Engineer Relationship Specialty Start Date End Date Aaron Solorzano MD [address] [facility] [address] PCP - General 08/11/09 Radio Frequency Design Engineer Relationship Specialty Start Date End Date Aaron Solorzano MD [address] [place] [address], [place] [address] PCP - General 08/11/09 Radio Frequency Design Engineer Relationship Specialty Start Date End Date Aaron Solorzano MD [address] [place] [address], [place] [address] PCP - General 08/11/09 Radio Frequency Design Engineer Relationship Specialty Start Date End Date Aaron Solorzano MD [address] [place] [address], [place] [address] PCP - General 08/11/09 Radio Frequency Design Engineer Relationship Specialty Start Date End Date Aaron Solorzano MD [address] [place] [address], [place] [address] PCP - General 08/11/09 Radio Frequency Design Engineer Relationship Specialty Start Date End Date Aaron Solorzano MD [address] [place] [address], [place] [address] PCP - General 08/11/09 Radio Frequency Design Engineer Relationship Specialty Start Date End Date Aaron Solorzano MD [address] [place] [address], [place] [address] PCP - General 08/11/09 Radio Frequency Design Engineer Relationship Specialty Start Date End Date Aaron Solorzano MD [address] [place] [address], [place] [address] PCP - General 08/11/09 Radio Frequency Design Engineer Relationship Specialty Start Date End Date Aaron Solorzano MD [address] [place] [address], [place] [address] PCP - General 08/11/09 Radio Frequency Design Engineer Relationship Specialty Start Date End Date Aarno Solorzano MD [address] [facility] [address] PCP - General 08/11/09 Radio Frequency Design Engineer Relationship Specialty Start Date End Date Aaron Solorzano MD [address] [facility] [address] PCP - General 08/11/09 Radio Frequency Design Engineer Relationship Specialty Start Date End Date Aaron Solorzano MD [address] [facility] [address] PCP - General 08/11/09 Radio Frequency Design Engineer Relationship Specialty Start Date End Date Aaron Solorzano MD [address] [facility] [address] PCP - General 08/11/09 Radio Frequency Design Engineer Relationship Specialty Start Date End Date Aaron Solorzano MD [address] [facility] [place], [place] [address] PCP - General 08/11/09 Team Status: Active [...] DO Attending Provider, Referring Pro vider Active Radio Frequency Design Engineer Relationship Specialty Start Date End Date Aaron Solorzano MD [address] [facility] [address] PCP - General 08/11/09 Radio Frequency Design Engineer Relationship Specialty Start Date End Date Aaron Solorzano MD [address] [place], [place] [address] PCP - General 08/11/09 Radio Frequency Design Engineer Relationship Specialty Start Date End Date Aaron Solorzano MD [address] [facility] [place], [place] [address] PCP - General 08/11/09 Radio Frequency Design Engineer Relationship Specialty Start Date End Date Aaron Solorzano MD [address] [place], [place] [address] PCP - General 08/11/09 Radio Frequency Design Engineer Relationship Specialty Start Date End Date Aaron Solorzano MD [address] [place], [place] [address] PCP - General 08/11/09 Radio Frequency Design Engineer Relationship Specialty Start Date End Date Aaron Solorzano MD [address] [place], [place] [address]44851 PCP - General 08/11/09 Radio Frequency Design Engineer Relationship Specialty Start Date End Date Aaron Solorzano MD [address] [place], [place] [address]121 PCP - General 08/11/09 Radio Frequency Design Engineer Relationship Specialty Start Date End Date Aaron Solorzano MD [address] [place], [place] [address] PCP - General 08/11/09 Radio Frequency Design Engineer Relationship Specialty Start Date End Date Aaron Solorzano MD [address] [place], [place] [address]1 PCP - General 08/11/09 Radio Frequency Design Engineer Relationship Specialty Start Date End Date Aaron Solorzano MD [address] [place], [place] [address]7591 PCP - General 08/11/09 Radio Frequency Design Engineer Relationship Specialty Start Date End Date Aaron Solorzano MD [address] [place], [place] 124511 PCP - General 08/11/09 Radio Frequency Design Engineer Relationship Specialty Start Date End Date Aaron Solorzano MD [address] [place], [place] [address]671 PCP - General 08/11/09 Radio Frequency Design Engineer Relationship Specialty Start Date End Date Aaron Solorzano MD [address] [place], [place] [address]194[address] PCP - General 08/11/09 Radio Frequency Design Engineer Relationship Specialty Start Date End Date Aaron Solorzano MD [address] [place], [place] [address]8851 PCP - General 08/11/09 Daxa Wing APRN.DOUBLE CUTTER [address] [place] [address] [place], [place] [id number] Drink Box Mechanic Internal Medicine 08/05/24 Radio Frequency Design Engineer Relationship Specialty Start Date End Date Aaron Solorzano MD [address] [place], [place] 087591 PCP - General 08/11/09 Daxa Wing APRN.DOUBLE CUTTER [address] [place] [address] Drink Box Mechanic Internal Medicine 08/05/24 Radio Frequency Design Engineer Relationship Specialty Start Date End Date Aaron Solorzano MD [address] [place], [place] 311391 PCP - General 08/11/09 Daxa Wing APRN.DOUBLE CUTTER [address] [place] [address] Drink Box Mechanic Internal Medicine 08/05/24 Radio Frequency Design Engineer Relationship Specialty Start Date End Date Aaron Solorzano MD [address] [place] [address] PCP - General 08/11/09 Daxa Wing APRN.DOUBLE CUTTER [address] [place], [place] [address] Drink Box Mechanic Internal Medicine 08/05/24 Radio Frequency Design Engineer Relationship Specialty Start Date End Date Aaron Solorzano MD [address] [place] [address] PCP - General 08/11/09 Daxa Wing APRN.DOUBLE CUTTER [address] [place] [address] Drink Box Mechanic Internal Medicine 08/05/24 Radio Frequency Design Engineer Relationship Specialty Start Date End Date Aaron Solorzano MD [address] [place] [address] PCP - General 08/11/09 Daxa Wing APRN.DOUBLE CUTTER [address] [place], [place] [address] Drink Box Mechanic Internal Medicine 08/05/24 Radio Frequency Design Engineer Relationship Specialty Start Date End Date Aaron Solorzano MD [address] [place] [address] PCP - General 08/11/09 Daxa Wing, WHOLESALER.DOUBLE CUTTER [address] [place], [place] [address] Drink Box Mechanic Internal Medicine 08/05/24 Radio Frequency Design Engineer Relationship Specialty Start Date End Date Aaron Solorzano MD [address] [place], [place] 261181 PCP - General 08/11/09 Daxa Wing, WHOLESALER.DOUBLE CUTTER [address] [place], [place] [address] Drink Box Mechanic Internal Medicine 08/05/24 Radio Frequency Design Engineer Relationship Specialty Start Date End Date Aaron Solorzano MD [address] [place], [place] [address]1521 PCP - General 08/11/09 Daxa Wing, WHOLESALER.DOUBLE CUTTER [address] [place], [place] [address] Drink Box Mechanic Internal Medicine 08/05/24 Radio Frequency Design Engineer Relationship Specialty Start Date End Date Aaron Solorzano MD [address] [place], [place] 774151 PCP - General 08/11/09 Daxa Wing, WHOLESALER.DOUBLE CUTTER [address] [place], [place] [address] Drink Box Mechanic Internal Medicine 08/05/24 Radio Frequency Design Engineer Relationship Specialty Start Date End Date Aaron Solorzano MD [address] [place], [place] 121011 PCP - General 08/11/09 Daxa Wing, WHOLESALER.DOUBLE CUTTER [address] [place] [address] [facility] Internal Medicine 08/05/24 Radio Frequency Design Engineer Relationship Specialty Start Date End Date Aaron Solorzano MD [address] [facility] [place] [place] [address] PCP - General 08/11/09 Daxa Wing, WHOLESALER.DOUBLE CUTTER [address] [place] [address] [facility] Internal Medicine 08/05/24 Team Status: Active [...] January 01, 2025 End: January 01, 2025 Radio Frequency Design Engineer Relationship Specialty Start Date End Date Aaron Solorzano MD [address] [facility] [place] [address] PCP - General 08/11/09 Daxa Wing APRN.DOUBLE CUTTER [address] [place] [address] [address] [place], [place] [address] Drink Box Mechanic Internal Medicine 08/05/24 Team Status: Active Member [...] January 09, 2025 End: January 09, 2025 RN ORTHO. Lucy Velasco Attending Provider Active Star t: January 09, 2025 End: January 09, 2025 RN ORTHO. Lucy Velasco Referring Provider Active Star t: January 09, [...] Attending Provider Active Start: April 15, 2025 Team Status: Inactive Member Role/Relationship Status Dates Dr. Mike Solorzano MD Primary Care Provider Active Start: April 15, 2025 End: April 19, 2025 Dr. Omer Boo MD Emergency Provider Active Sta rt: April 15, 2025 End: April 19, 2025 Dr. Debora Diaz MD Admit Provider Active Star t: April 15, 2025 End: April 19, 2025 Dr. Debora Diaz MD Other Provider Active Star t: April 15, 2025 End: April 19, 2025 Dr. Margarita Harris MD Attending Provider Active Start: April 15, 2025 End: April 19, 2025 Dr. Alex Gonzales MD Other Provider Active Start: April 15, 2025 End: April 19, 2025 Team Status: Active Member Role/Relationship Status Dates Dr. Mike Solorzano MD Primary Care Provider Active Start: April 16, 2025 Dr. Luciano Spicer MD Attending Provider Active S tart: April 16, 2025 Team Status: Active Member Role/Relationship Status Dates Dr. Mike Solorzano MD Primary Care Provider Active Start: April 16, 2025 Dr. Omer Boo MD Emergency Provider Active Sta rt: April 16, 2025 Dr. Debora Diaz MD Admit Provider Active Star t: April 16, 2025 Dr. Debora Diaz MD Other Provider Active Star t: April 16, 2025 Dr. Margarita [place] MD Attending Provider Active Start: April 16, 2025 Dr. Margarita Harris MD Other Provider Active St art: April 16, 2025 Dr. Alex Gonzales MD Other Provider Active Start: April 16, 2025 Team Status: Active Member Role/Relationship Status Dates Dr. Mike Solorzano MD Primary Care Provider Active Start: April 17, 2025 Dr. Ant Arias MD Attending Provider Active S tart: April 17, 2025 Team Status: Active Member Role/Relationship Status Dates Dr. Mike Solorzano MD Primary Care Provider Active Start: April 17, 2025 Dr. Omer Boo MD Emergency Provider Active Sta rt: April 17, 2025 Dr. Debora Diaz MD Admit Provider Active Star t: April 17, 2025 Dr. Debora Diaz MD Other Provider Active Star t: April 17, 2025 Dr. Margarita [place] MD Attending Provider Active Start: April 17, 2025 Dr. Margarita Harris MD Other Provider Active St art: April 17, 2025 Dr. Alex Gonzales MD Other Provider Active Start: April 17, 2025 Team Status: Active Member Role/Relationship Status Dates Dr. Mike Solorzano MD Primary Care Provider Active Start: April 18, 2025 Dr. Omer Boo MD Emergency Provider Active Sta rt: April 18, 2025 Dr. Debora Diaz MD Admit Provider Active Star t: April 18, 2025 Dr. Debora Diaz MD Other Provider Active Star t: April 18, 2025 Dr. Margarita Harris MD Attending Provider Active Start: April 18, 2025 Dr. Margarita Harris MD Other Provider Active St art: April 18, 2025 Dr. Alex Gonzales MD Other Provider Active Start: April 18, 2025 Team Status: Active Member Role/Relationship Status Dates Dr. Mike Solorzano MD Primary Care Provider Active Start: April 19, 2025 Dr. Omer Boo MD Emergency Provider Active Sta rt: April 19, 2025 Dr. Debora Diaz MD Admit Provider Active Star t: April 19, 2025 Dr. Debora Diaz MD Other Provider Active Star t: April 19, 2025 Dr. Margarita Harris MD Attending Provider Active Start: April 19, 2025 Dr. Margarita Harris MD Other Provider Active St art: April 19, 2025 Dr. Alex Gonzales MD Other Provider Active Start: April 19, 2025 Radio Frequency Design Engineer Relationship Specialty Start Date End Date Aaron Solorzano MD [address] [place], [place] [address] PCP - General 08/11/09 Daxa Wing, WHOLESALER.DOUBLE CUTTER [address] [place], [place] [address] [facility] Internal Medicine 08/05/24 Radio Frequency Design Engineer Relationship Specialty Start Date End Date Aaron Solorzano MD [address] [place] [address] PCP - General 08/11/09 Daxa Wing, WHOLESALER.DOUBLE CUTTER [address] [place] [address] [facility] Internal Medicine 08/05/24 Goals (unrecognized section and content) Goals may [...] BE BASED ON THE PRIMARY CLINICAL RECORDS. [facility] [place] Self Representation Document Preparation [facility]. provides no warranty or guarantee of the accuracy or completeness of information in this document.
[2025-05-11 11:19] LABS: Hematocrit 32.6 % (40-54); Hemoglobin 11.7 g/dL (13.0-16.5); Immature Granulocytes Count 0.020 X10^3/uL (0.0-0.0); Mean Corp Hgb Conc 35.9 g/dL (32-36); Mean Corpuscular Volume 87.2 fL (80-94); Mean Platelet Vol. 9.9 fl (6.2-12.0); NRBC Flagged by Analyzer 0 % (0-5); Platelet Count 157 K/mm3 (150-450); RBC Distribution Width CV 12.8 % (11.6-14.6); RBC Distribution Width SD 40.4 fl (35.1-43.9); Red Blood Count 3.74 M/mm3 (4.6-6.2); White Blood Count 5.8 K/mm3 (4.4-11.0)
[2025-05-11 11:24] VITALS: BP 129/59; PULSE 68; RESP 16; TEMP 36.5; O2SAT 95
[2025-05-11 11:52] LABS: Mucous, Urine 0 SEEN /hpf (<or=2+); Red Blood Cells-Urine 0 SEEN /hpf (0-5); Squamous Epithelial Cells - UA 0 SEEN /hpf (0-5)
[2025-05-11 11:54] LABS: Color, Urine Yellow (Yellow); Glucose, Dipstick Normal (Normal); Ketone-Dipstick Negative (Negative); Leukocyte Esterase-Dipstick Negative /ul (Negative); Nitrite-Dipstick Negative (Negative); Occult Blood-Urine Negative /ul (Negative); Protein-Dipstick 30 mg/dl (Negative); Specific Gravity, Urine 1.005 (1.002-1.030); Urine Bilirubin Dipstick Negative (Negative)
[2025-05-11 11:54] LABS: Anion Gap 13 (5-15); BUN 17 mg/dL (4-19); BUN/Creat Ratio 16.0 RATIO (10-20); Calcium,Total 9.3 mg/dL (7.6-11.0); Carbon Dioxide 23.8 mmol/L (21.0-32.0); Chloride 100 mmol/L (98-108); Estimated Creatinine Clearance 66.73 ml/min (50-250); Glucose 126 mg/dL (70-99); Potassium 3.9 mmol/L (3.3-5.1)
[2025-05-11 12:00] VITALS: BP 131/60; PULSE 70; RESP 16; TEMP 36.5; O2SAT 95
[2025-05-11 13:19] VITALS: BP 143/71; PULSE 63; RESP 14; TEMP 36.6; O2SAT 98
== END 2025-05-11 13:24 | disposition home or self-care (01) ==
PROVIDERS: Emergency Provider Emergency Medicine; PCP Family Medicine; Visit Provider Emergency Medicine
DX: R10.9 Unspecified abdominal pain (principal); E11.9 Type 2 diabetes mellitus without complications; K59.00 Constipation, unspecified; I25.10 Atherosclerotic heart disease of native coronary artery without angina pectoris; G47.33 Obstructive sleep apnea (adult) (pediatric); Z87.891 Personal history of nicotine dependence; Z96.82 Presence of neurostimulator
CPT/HCPCS: 74176; 80048; 81001; 85025; 96374; 96375; 99282; A4216; J2405

== ENCOUNTER 2025-05-13 09:50 | Outpatient (RCR) | payer MEDICARE, SELFPAY ==
[2025-04-30 13:55] LABS: Hematocrit 32.1 % (40-54); Hemoglobin 10.8 g/dL (13.0-16.5); Mean Corp Hgb Conc 33.6 g/dL (32-36); Mean Corpuscular Volume 90.7 fL (80-94); Mean Platelet Vol. 10.3 fl (6.2-12.0); Platelet Count 209 K/mm3 (150-450); RBC Distribution Width CV 13.1 % (11.6-14.6); RBC Distribution Width SD 43.1 fl (35.1-43.9); Red Blood Count 3.54 M/mm3 (4.6-6.2); White Blood Count 4.7 K/mm3 (4.4-11.0)
[2025-04-30 14:26] LABS: Vancomycin, Trough Level 12.6 ug/mL (5.0-15.0)
[2025-04-30 14:27] LABS: Anion Gap 11 (5-15); BUN 17 mg/dL (4-19); BUN/Creat Ratio 17.4 RATIO (10-20); Calcium,Total 9.2 mg/dL (7.6-11.0); Carbon Dioxide 24.8 mmol/L (21.0-32.0); Chloride 101 mmol/L (98-108); Glucose 151 mg/dL (70-99); Potassium 4.0 mmol/L (3.3-5.1)
[2025-05-06 09:39] LABS: Hematocrit 32.4 % (40-54); Hemoglobin 11.2 g/dL (13.0-16.5); Mean Corp Hgb Conc 34.6 g/dL (32-36); Mean Corpuscular Volume 88.8 fL (80-94); Mean Platelet Vol. 10.1 fl (6.2-12.0); Platelet Count 160 K/mm3 (150-450); RBC Distribution Width CV 12.9 % (11.6-14.6); RBC Distribution Width SD 41.7 fl (35.1-43.9); Red Blood Count 3.65 M/mm3 (4.6-6.2); White Blood Count 4.1 K/mm3 (4.4-11.0)
[2025-05-06 09:58] LABS: Anion Gap 11 (5-15); BUN 18 mg/dL (4-19); BUN/Creat Ratio 17.8 RATIO (10-20); Calcium,Total 9.2 mg/dL (7.6-11.0); Carbon Dioxide 24.9 mmol/L (21.0-32.0); Chloride 101 mmol/L (98-108); Glucose 120 mg/dL (70-99); Potassium 4.0 mmol/L (3.3-5.1); Vancomycin, Trough Level 13.7 ug/mL (5.0-15.0)
[2025-05-13 10:40] LABS: Vancomycin, Trough Level 19.9 ug/mL (5.0-15.0)
[2025-05-13 10:41] LABS: Anion Gap 11 (5-15); BUN 13 mg/dL (4-19); BUN/Creat Ratio 12.5 RATIO (10-20); Calcium,Total 9.2 mg/dL (7.6-11.0); Carbon Dioxide 24.8 mmol/L (21.0-32.0); Chloride 100 mmol/L (98-108); Glucose 135 mg/dL (70-99); Potassium 4.1 mmol/L (3.3-5.1)
[2025-05-13 10:55] LABS: Hematocrit 33.5 % (40-54); Hemoglobin 11.4 g/dL (13.0-16.5); Mean Corp Hgb Conc 34.0 g/dL (32-36); Mean Corpuscular Volume 89.8 fL (80-94); Mean Platelet Vol. 10.3 fl (6.2-12.0); Platelet Count 148 K/mm3 (150-450); RBC Distribution Width CV 13.1 % (11.6-14.6); RBC Distribution Width SD 42.5 fl (35.1-43.9); Red Blood Count 3.73 M/mm3 (4.6-6.2); White Blood Count 5.3 K/mm3 (4.4-11.0)
== END 2025-05-28 23:59 ==
LOC: LABSPEC 09:50
PROVIDERS: PCP Family Medicine; Referring Provider Internal Medicine Infectious Disease; Visit Provider Internal Medicine Infectious Disease
DX: R78.81 Bacteremia (principal)
CPT/HCPCS: 80048; 80202; 85027

== ENCOUNTER 2025-05-21 09:56 | Emergency (ER) | payer MEDICARE, SELFPAY ==
[2025-05-21 09:57] VITALS: BP 179/89; PULSE 90; RESP 14; TEMP 36.8; O2SAT 99; BMI 31.3
--- NOTE | 2025-05-21 10:13 | ED.VIS.GI ---
HPI HPI - GI History of Present Illness Chief Complaint: Constipation Detail of Chief Complaint: Constipation and abdominal pain Informant: patient Narrative Narrative: Patient presents to the emergency department with complaint of constipation and abdomen and left low back pain. Patient states that he was seen in the emergency department about a week ago for same and was given MiraLAX and stool softener to take. He states he had 1 good bowel movement 2 or 3 days ago. Continues to have pain in his left low back. Denies any pain radiating down the legs. Denies weakness to the extremities. He is not taking any narcotic pain medication. Also complains of pain to the left lower abdomen. He denies any blood in his stool or black tarry stool. He said no nausea or vomiting. He denies fever. No prior history of constipation issues. Patient not anticoagulated. [facility] Medical History MRSA bacteremia Type 2 diabetes mellitus with hyperglycemia SIRS (systemic inflammatory response syndrome) Right carotid bruit History of tenosynovitis Former smoker H/O methicillin resistant Staphylococcus aureus infection Arthritis Swelling of joint of left hand Hearing problem Cataracts, bilateral Back problem Arthritis HLD (hyperlipidemia) Hyponatremia Near syncope Lightheaded Chest wall pain Postoperative atrial fibrillation Atherosclerotic heart disease of [place] coronary artery without angina pectoris Pericardial effusion Fever Chest pain Multi-vessel coronary artery stenosis Dyspnea on exertion Abnormal echocardiogram Nonrheumatic aortic (valve) stenosis Intractable back pain Benign prostatic hypertrophy Physical debility Pain Asthmatic bronchitis with exacerbation Obstructive sleep apnea syndrome Obesity Type II diabetes mellitus Benign essential hypertension Home Medications ?Medication ?Instructions ?Recorded ?Last Taken ?Type aspirin 81 mg chewable tablet 81 mg PO DAILY heart health 11/21/16 03/18/20 History metformin 500 mg tablet 1,000 mg PO BIDCM diabetes 11/21/16 03/17/20 History tamsulosin 0.4 mg capsule 0.4 mg PO QHS BPH 11/21/16 01/01/18 History gabapentin 400 mg capsule 400 mg PO TID 02/28/20 Unknown History hydroxychloroquine 200 mg tablet 200 mg PO DAILY 02/28/20 Unknown History tramadol 50 mg tablet 50 mg PO Q6H PRN PRN Pain Or Fever 05/29/20 Unknown History multivitamin 1 tab PO DAILY Supplement 06/09/20 Unknown History celecoxib 200 mg capsule (Celebrex) 200 mg PO BID 06/27/20 Unknown History atorvastatin 20 mg tablet 20 mg PO QHS 12/22/20 Unknown History metoprolol succinate 50 mg 50 mg PO QDAY 05/31/24 Unknown History tablet,extended release 24 hr metoprolol succinate 100 mg 50 mg PO DAILY 04/15/25 Unknown History tablet,extended release 24 hr vancomycin 1,000 mg intravenous 1,000 mg IV Q12H 25 days #50 ea 04/18/25 Unknown Rx injection dicyclomine 20 mg tablet 20 mg PO Q8H PRN PRN abdominal 05/11/25 Unknown Rx discomfort #10 tabs hydrocodone-acetaminophen 5-325mg 1 tab PO Q4H PRN PRN Pain 2 days 05/21/25 Unknown Rx 5mg-325mg #10 TABLETS Allergy/AdvReac Type Severity Reaction Status Date / Time No Known Allergies Allergy Verified 05/21/25 09:56 Family History Father Myocardial infarction, Onset Age: 73 Mother Myocardial infarction, Onset Age: 68 Other Arthritis Asthma Diabetes High cholesterol Hypertension Surgical History History of aortic valve replacement History of aortic valve replacement with bioprosthetic valve (~05/08/20) History of coronary artery bypass surgery (~05/08/20) History of left heart catheterization (03/18/20) History of knee replacement History of total knee arthroplasty Social History Smoking Status: Former smoker alcohol intake: never substance use type: does not use caffeine: Yes Type: coffee Number of servings: 3 additional social history: Does Not Take Ibuprofen ROS ROS ED Review of Systems ROS Unobtainable: other Constitutional Constitutional ED: Reports lethargy; Denies chills, fever(s), sweats or weight loss Eyes Eyes: Denies blurry vision, change in vision or diplopia ENT ENT ED: Denies rhinorrhea or sore throat Cardiovascular Cardiovascular: Denies chest pain, orthopnea or racing heartbeat Respiratory/Chest Respiratory/Chest: Denies cough, dyspnea, dyspnea on exertion, orthopnea or sputum Gastrointestinal Gastrointestinal: Reports abdominal pain and constipation; Denies diarrhea, nausea or vomiting Genitourinary Genitourinary ED: Denies dysuria, hematuria or urinary frequency Musculoskeletal Musculoskeletal: Reports back pain; Denies arthralgias, myalgias or neck pain Integumentary Denies abscess, Abrasions or rash Neurologic Neurologic: Denies headache(s) or weakness Psychiatric Psychiatric: Denies anxiety, depression or suicidal thoughts Endocrine Endocrinology: Denies polydipsia, polyphagia or polyuria Hematologic/Lymphatic Hematologic/Lymphatic: Denies easy bleeding, easy bruising or lymphadenopathy Allergic/Immunologic Allergic/Immunologic ED: Denies mouth swelling, tongue swelling or urticaria EXAM Physical Exam Const Vital Signs: 05/21/25 09:57 05/21/25 11:56 Temperature 98.3 F 98.2 F Temperature Source Temporal Oral Pulse Rate 90 71 Respiratory Rate 14 16 Blood Pressure 179/89 H 159/64 H Blood Pressure Mean 119 95 Pulse Ox 99 98 Oxygen Delivery Method Room Air Room Air Positive well nourished and well developed General Appearance ED: well developed and NAD HEENT Reports TM's clear and moist mucous membranes normocephalic and atraumatic; Negative for trauma or tenderness Tympanic Membrane ED: Yes TM's clear Eyes PERRL and EOMs intact bilaterally General Eye ED: Negative for pale conjunctiva or scleral icterus Neck no lymphadenopathy, supple and no JVD General: Negative for tenderness Chest Wall inspection of chest normal and palpation of chest normal Chest: Negative for tenderness Resp normal respiratory effort and clear to auscultation bilaterally Effort and Inspection: Negative for respiratory distress or pain with movement Auscultation: Negative for rhonchi, wheezes or diminished lung sounds Cardio regular rate, regular rhythm, S1 normal heart sound, S2 normal heart sound and no murmurs Peripheral Pulses: pulses 2+ throughout GI normal to inspection, nondistended, normoactive bowel sounds, soft to palpation, non-distended and no masses GI Narrative: Tenderness palpation over left lower quadrant and suprapubic region. There are some guarding. There is no rebound or rigidity. Rectal exam performed and there were no rectal masses noted. There was brown stool. No impaction. Back/Spine no CVA tenderness Back/Spine Narrative: Evaluation of patient's back does reveal tenderness palpation over the left lumbar paraspinal musculature as well as left CVA tenderness. There is no erythema or warmth. He does have a scar over the right lower back where he has a spinal stimulator inserted. Extremity normal to inspection General Extremety ED: Negative for edema General Extremity: Negative for edema Neuro oriented x3, CN's II-XII intact bilaterally, no sensory deficits noted and gait normal Sensorium / Orientation: awake, alert, oriented to person, oriented to place and oriented to time Motor Exam: strength 5/5 throughout and strength abnormal Psych mental status grossly normal Skin no rashes or lesions noted and no wounds MDM MDM MDM Narrative Medical decision making narrative: Patient presents with concern for constipation and back and abdomen pain. Clinically he looks well. Concern for possibility of kidney stone or AAA although I do not appreciate any masses. Concern for diverticulitis or other acute intra-abdominal process. He does not want a thing for pain. IV line will be established. Will obtain labs as well as CT scan of the abdomen pelvis with IV contrast to evaluate further. Patient had an IV line established. Did CBC with differential obtained showed white count 6.1 with hemoglobin 12 and platelet count of 163. Chemistries unremarkable. Lactate normal at 1.8. Urinalysis normal. CT scan of the abdomen pelvis with IV contrast showed a umbilical hernia otherwise nothing acute. This point etiology of patient's back and abdomen pain unclear although I suspect may be musculoskeletal. He has no radiculopathy type symptoms. Will write him a prescription for a few Gibbs for pain and advise that he follow-up with pain management. Patient also will be given a bottle of magnesium citrate. Advised return if worsening pain, weakness in the legs or pain down the legs with paresthesias or if condition should worsen anyway Lab Data Attestation: I reviewed the patient's lab results. Labs: Laboratory Results - last 24 hr 05/21/25 05/21/25 10:23 10:44 WBC 6.1 RBC 3.89 L Hgb 12.0 L Hct 34.3 L MCV 88.2 MCH 30.8 MCHC 35.0 RDW Std Deviation 40.8 RDW Coeff of Liang 12.7 Plt Count 163 MPV 9.3 Immature Gran % (Auto) 0.500 Neut % (Auto) 61.3 Lymph % (Auto) 21.1 [place] % (Auto) 13.0 H Eos % (Auto) 3.3 Baso % (Auto) 0.8 Absolute Neuts (auto) 3.7 Absolute Lymphs (auto) 1.28 Nucleated RBC % 0 Sodium 134 Potassium 4.2 Chloride 100 Carbon Dioxide 22.2 Anion Gap 12 BUN 14 Creatinine 0.98 Estim Creat Clear Calc 66.65 Est GFR (MDRD) Non-Af 80 BUN/Creatinine Ratio 14.3 Glucose 124 H Lactic Acid 1.8 Calcium 9.3 Urine Color Yellow Urine Clarity Clear Urine pH 7.0 Ur Specific [place] 1.005 Urine Protein 30 H Urine Glucose (UA) Normal Urine Ketones Negative Urine Occult Blood Negative Urine Nitrite Negative Urine Bilirubin Negative Urine Urobilinogen Normal Ur Leukocyte Esterase Negative Urine RBC 0 SEEN Urine WBC 0 SEEN Ur Squamous Epith Cells 0 SEEN Urine Bacteria 0 SEEN Urine Mucus 0 SEEN Radiography Diagnostic Testing: Clinical Impression(s) from Imaging Studies Abdomen/Pelvis CT 05/21/25 11:22 IMPRESSION: There is a 6.4 x 5.0 cm uncomplicated fat containing anterior abdominal wall hernia at the level of the umbilicus. There is a 3.1 cm cyst in the midpole of the left kidney. [facility] Triage Chief Complaint: Constipation ED Provider: Alan Correia Dx/Rx/DC Orders Clinical Impression: Back pain, Constipation Instructions: ED Back Pain (Acute or Chronic), ED Constipation (Adult) Prescriptions: New hydrocodone-acetaminophen 5-325 mg tablet 1 tab PO Q4H PRN PRN (Reason: Pain) 2 Days Qty: 10 0RF No Action hydroxychloroquine 200 mg tablet 200 mg PO DAILY gabapentin 400 mg capsule 400 mg PO TID multivitamin Tablet 1 tab PO DAILY atorvastatin 20 mg tablet 20 mg PO QHS metoprolol succinate 50 mg tablet extended release 24 hr 50 mg PO QDAY metformin 500 MG tablet 1,000 mg PO BIDCM Patient Comments: diabetes tamsulosin 0.4 MG capsule 0.4 mg PO QHS Patient Comments: bladder aspirin 81 MG tablet,chewable 81 mg PO DAILY Patient Comments: heart health tramadol 50 MG tablet 50 mg PO Q6H PRN PRN (Reason: Pain Or Fever) metoprolol succinate 100 mg tablet extended release 24 hr 50 mg PO DAILY vancomycin 1,000 mg recon soln 1,000 mg IV Q12H 25 Days Qty: 50 0RF Rx Instructions: stop date 05/14/25. Dx: MRSA bacteremia. Weekly bmp, cbc, and vanc trough. Fax to [phone]. Routine picc care per protocol. dicyclomine 20 mg tablet 20 mg PO Q8H PRN PRN (Reason: abdominal discomfort) Qty: 10 0RF celecoxib [Celebrex] 200 mg capsule 200 mg PO BID Primary Care Provider: Mike Flores Referrals: Mike Flores MD [Primary Care Provider, [facility]] - 3-5 Days Activity Restrictions/Additional Instructions: Follow-up with pain management Dr. Devine if your pain persists. Also follow-up with your primary care physician Print Language: [place] Disposition Disposition: Home, Self Care
[2025-05-21 10:39] LABS: Hematocrit 34.3 % (40-54); Hemoglobin 12.0 g/dL (13.0-16.5); Immature Granulocytes Count 0.030 X10^3/uL (0.0-0.0); Mean Corp Hgb Conc 35.0 g/dL (32-36); Mean Corpuscular Volume 88.2 fL (80-94); Mean Platelet Vol. 9.3 fl (6.2-12.0); NRBC Flagged by Analyzer 0 % (0-5); Platelet Count 163 K/mm3 (150-450); RBC Distribution Width CV 12.7 % (11.6-14.6); RBC Distribution Width SD 40.8 fl (35.1-43.9); Red Blood Count 3.89 M/mm3 (4.6-6.2); White Blood Count 6.1 K/mm3 (4.4-11.0)
[2025-05-21 10:51] LABS: Mucous, Urine 0 SEEN /hpf (<or=2+); Red Blood Cells-Urine 0 SEEN /hpf (0-5); Squamous Epithelial Cells - UA 0 SEEN /hpf (0-5)
[2025-05-21] MEDS: 0.9% Normal Saline (1000mL) 1,000 ML 125 ML IV (10:55)
[2025-05-21 11:11] LABS: Anion Gap 12 (5-15); BUN 14 mg/dL (4-19); BUN/Creat Ratio 14.3 RATIO (10-20); Calcium,Total 9.3 mg/dL (7.6-11.0); Carbon Dioxide 22.2 mmol/L (21.0-32.0); Chloride 100 mmol/L (98-108); Estimated Creatinine Clearance 66.65 ml/min (50-250); Glucose 124 mg/dL (70-99); Potassium 4.2 mmol/L (3.3-5.1)
--- NOTE | 2025-05-21 11:22 | CT_ITS ---
PROCEDURE: ABDOMEN/PELVIS W IV CONT ONLY 05/21/2025 REASON FOR EXAM: ABDOMINAL PAIN TECHNIQUE: Procedure Code: [id number] Modality: CT Procedure: ABDOMEN/PELVIS W IV CONT ONLY Coronal and Sagittal reconstruction series were provided. CONTRAST: 98 cc [id number] One or more dose reduction techniques were used (e.g., Automated exposure control, adjustment of the mA and/or kV according to patient size, use of iterative reconstruction technique. RADIATION DOSE SUMMARY: DLP: 1146 mGycm COMPARISON: May 11, 2025 FINDINGS: Lung bases: Clear Liver: Unremarkable Gallbladder: Unremarkable Spleen: Unremarkable Pancreas: Unremarkable Adrenals: Unremarkable Kidneys: There is a 3.1 cm cyst in the midpole of the left kidney. Bladder: Unremarkable Reproductive Organs: Unremarkable Bowel: Gas and stool is noted in the colon. The small-bowel loops are not distended. Appendix: Normal in appearance Lymph nodes: There is no pathologic adenopathy by size criteria. Vasculature: Atherosclerotic calcifications are noted. Peritoneum / Retroperitoneum: There is no free air or free fluid. Bones: Degenerative changes are noted in the lumbar spine. There is no visible acute bony abnormality. There is a 6.4 x 5.0 cm uncomplicated fat containing anterior abdominal wall hernia at the level of the umbilicus. A spinal stimulator is noted. CT/Abdomen/Pelvis W IV Cont ONLY IMPRESSION: There is a 6.4 x 5.0 cm uncomplicated fat containing anterior abdominal wall he rnia at the level of the umbilicus. There is a 3.1 cm cyst in the midpole of the left kidney. Reading Location: [facility]
[2025-05-21 11:28] LABS: Color, Urine Yellow (Yellow); Glucose, Dipstick Normal (Normal); Ketone-Dipstick Negative (Negative); Leukocyte Esterase-Dipstick Negative /ul (Negative); Nitrite-Dipstick Negative (Negative); Occult Blood-Urine Negative /ul (Negative); Protein-Dipstick 30 mg/dl (Negative); Specific Gravity, Urine 1.005 (1.002-1.030); Urine Bilirubin Dipstick Negative (Negative)
[2025-05-21 11:56] VITALS: BP 159/64; PULSE 71; RESP 16; TEMP 36.8; O2SAT 98
[2025-05-21] MEDS: Magnesium Citrate 300 ML PO (13:33)
== END 2025-05-21 13:43 | disposition home or self-care (01) ==
PROVIDERS: Emergency Provider Emergency Medicine; PCP Family Medicine; Visit Provider Emergency Medicine
DX: K59.00 Constipation, unspecified (principal); E11.9 Type 2 diabetes mellitus without complications; M54.50 Low back pain, unspecified; E66.9 Obesity, unspecified; Z68.31 Body mass index [BMI] 31.0-31.9, adult; Z96.82 Presence of neurostimulator; Z79.84 Long term (current) use of oral hypoglycemic drugs; Z87.891 Personal history of nicotine dependence
CPT/HCPCS: 74177; 80048; 81001; 83605; 85025; 96360; 96361; 99283; Q9967; A4216